=== PATIENT | male | born 1955 | race Caucasian/White ===

== ENCOUNTER → 2020-01-09 | Outpatient (CLI) | payer BC ==
[2020-01-09 11:13] LABS: INR 1.1 (<1.2); Prothrombin Time 11.5 sec (9.0-12.0)
[2020-01-09 11:26] LABS: ALT 50 U/L (4-49); AST 129 U/L (17-59); African American GFR (CKD) >90 (>60 ml/min/1.73 sqM); Albumin 3.2 g/dL (3.5-5.0); Alkaline Phosphatase 269 U/L (38-126); Anion Gap 5 mmol/L; Blood Urea Nitrogen <2 mg/dL (9-20); Calcium 8.6 mg/dL (8.4-10.2); Carbon Dioxide 32 mmol/L (22-30); Chloride 95 mmol/L (98-107); Glucose 126 mg/dL (74-99); Non-African American GFR(CKD) >90 (>60 ml/min/1.73 sqM); Potassium 2.9 mmol/L (3.5-5.1); Sodium 132 mmol/L (137-145); Total Bilirubin 2.6 mg/dL (0.2-1.3); Total Protein 6.8 g/dL (6.3-8.2)
[2020-01-09 11:29] LABS: Basophils # (A) 0.1 k/uL (0-0.2); Basophils % (A) 1 %; Eosinophils # (A) 0.1 k/uL (0-0.7); Eosinophils % (A) 1 %; HCT 48.3 % (39.0-53.0); Lymphocytes # (A) 2.1 k/uL (1.0-4.8); Lymphocytes % (A) 24 %; MCH 36.8 pg (25.0-35.0); MCHC 33.2 g/dL (31.0-37.0); MCV 110.9 fL (80.0-100.0); Macrocytosis Marked; Mean Platelet Volume 7.9; Monocytes # (A) 1.3 k/uL (0-1.0); Monocytes % (A) 15 %; Neutrophils # (A) 5.1 k/uL (1.3-7.7); Neutrophils % (A) 58 %; Platelet Count 270 k/uL (150-450); RBC 4.35 m/uL (4.30-5.90); RDW 12.7 % (11.5-15.5); WBC 8.7 k/uL (3.8-10.6)
--- NOTE | 2020-01-09 14:13 | CT ---
EXAMINATION TYPE: CT abdomen pelvis w con DATE OF EXAM: 01/09/2020 COMPARISON: None HISTORY: Sigmoid stricture CT DLP: 384 mGycm Automated exposure control for dose reduction was used. TECHNIQUE: Helical acquisition of images from the lung bases through the pelvis have been completed. CONTRAST: Performed with Oral Contrast and with IV Contrast, patient injected with 100 mL of Isovue 300. FINDINGS: Question some distal esophageal thickening, possible small hiatal hernia. LUNG BASES: Some probable atelectasis or scarring is present. AORTA: No significant abnormality is appreciated. LIVER/GB: Liver shows low attenuation likely due to hepatic steatosis. Gallbladder is unremarkable. PANCREAS: No significant abnormality is seen. SPLEEN: No significant abnormality is seen. ADRENALS: No significant abnormality is seen. KIDNEYS: No significant abnormality is seen. REPRODUCTIVE ORGANS: No significant abnormality is seen BOWEL: Abnormal thickening of the sigmoid colon wall is present, there is a large diverticulum prese nt with some suggestion of inflammatory change, coronal image #44, axial image #59. Question some col onic wall thickening also at the level of the splenic flexure, ascending colon. Terminal ileum and ce cum show some thickening. Some distended loops of small bowel are present, questionable bowel wall th ickening FREE AIR: No Free Air visible. ASCITES: There is some free fluid noted about the liver. PELVIC ADENOPATHY: None visualized. RETROPERITONEAL ADENOPATHY: No Retroperitoneal Adenopathy visible. URINARY BLADDER: No significant abnormality is seen. OSSEOUS STRUCTURES: Patient is post left hip arthroplasty IMPRESSION: CORRELATE FOR POSSIBLE COLITIS AND DIVERTICULITIS, FOLLOW-UP IS RECOMMENDED TO EXCLUDE UNDERLYING MAS S, AND MUCOSAL LESION. CORRELATE FOR POSSIBLE HIATAL HERNIA, ESOPHAGITIS. SMALL AMOUNT OF ASCITES, PO SSIBLE ENTERITIS, HEPATIC STEATOSIS.
== END | disposition home or self-care (01) ==
LOC: RADCTMAIN 10:26
PROVIDERS: ATTEND Student in an Organized Health Care Education/Training Program
DX: R18.8 Other ascites (principal); R11.2 Nausea with vomiting, unspecified; R19.7 Diarrhea, unspecified
CPT/HCPCS: 80053; 85025; 85610; 74177; 36415; Q9967 ×2

== ENCOUNTER → 2020-01-31 | Outpatient (CLI) | payer BC ==
[2020-01-31 14:56] LABS: HCT 42.9 % (39.0-53.0); HGB 14.2 gm/dL (13.0-17.5); MCH 37.1 pg (25.0-35.0); MCHC 33.2 g/dL (31.0-37.0); Macrocytosis Marked; Mean Platelet Volume 7.8; Platelet Count 273 k/uL (150-450); RBC 3.84 m/uL (4.30-5.90); RDW 12.8 % (11.5-15.5); WBC 10.2 k/uL (3.8-10.6)
[2020-01-31 15:03] LABS: Potassium 3.6 mmol/L (3.5-5.1)
[2020-01-31 15:05] LABS: MCV 111.7 fL (80.0-100.0)
== END | disposition home or self-care (01) ==
LOC: LABPAT 12:25
PROVIDERS: ATTEND Surgery
DX: Z01.818 Encounter for other preprocedural examination (principal); K57.33 Diverticulitis of large intestine without perforation or abscess with bleeding
CPT/HCPCS: 36415; 80051; 85027; 93005

== ENCOUNTER 2020-02-07 08:00 | Inpatient (IN) | payer BC ==
[~2020-02-07 08:00] MED LIST: ACETAMINOPHEN TAB 500 MG TAB PO ONE; DEXAMETHASONE SOD PHOSPHATE 4 MG/ML 1 ML VIAL IV ONE; HEPARIN SODIUM,PORCINE 5,000 UNIT/ML 1 ML VIAL SQ ONE; HYDROmorphone 0.5 MG/0.5 ML SYRINGE IVP PRN; LIDOCAINE 1% (10MG/ML) FOR IV START INTRADERMA PRN; ONDANSETRON 4 MG/2 ML VIAL IVP ONE; SCOPOLAMINE 1.5MG/72HR PATCH TRANSDERM ONE; metroNIDAZOLE-NS PMX 500 MG in SALINE 1 100ML.BAG IVPB ONE
[2020-02-07] MEDS ORDERED: MIDAZOLAM 2 MG/2 ML VIAL IV ONE (08:48)
[2020-02-07] MEDS ORDERED: fentaNYL (PF) 50 MCG/ML 2 ML AMP IV ONE (08:59)
[2020-02-07] MEDS: LACTATED RINGERS 1,000 ML IV SCH (09:18)
[2020-02-07] MEDS ORDERED: ALVIMOPAN 12 MG CAPSULE PO ONE (09:31)
--- NOTE | 2020-02-07 09:33 | P.GSHP ---
History of Present Illness H&P Date: 02/07/20 Chief Complaint: Diverticulitis This is a 64-year-old male who's had chronic issues of diverticulitis. Patient presents today for low anterior resection. Patient aware the risk of colostomy wound infection bleeding. Past Medical History Past Medical History: No Reported History Additional Past Medical History / Comment(s): varicose veins, vitiligo, Diarrhea, diverticulitis. History of Any Multi-Drug Resistant Organisms: None Reported Past Surgical History: Appendectomy, Orthopedic Surgery Additional Past Surgical History / Comment(s): knee surgery(fx), 03-23-16 total lt hip (fx) Past Anesthesia/Blood Transfusion Reactions: No Reported Reaction Additional Past Anesthesia/Blood Transfusion Reaction / Comment(s): unknown family hx-adopted Past Psychological History: No Psychological Hx Reported Smoking Status: Current every day smoker Past Alcohol Use History: Daily Additional Past Alcohol Use History / Comment(s): STARTED SMOKING AT AGE 22, SMOKES 1/2 PPD. DRINKS 2-3 BEERS/DAY Past Drug Use History: None Reported - Past Family History Mother Family Medical History: Unable to Obtain Additional Family Medical History / Comment(s): PT WAS ADOPTED Father Family Medical History: Unable to Obtain Additional Family Medical History / Comment(s): PT WAS ADOPTED Medications and Allergies Home Medications Medication Instructions Recorded Confirmed Type Baclofen [Lioresal] 20 mg PO BID 02/04/20 02/07/20 History Ciprofloxacin HCl [Cipro] 500 mg PO BID 02/04/20 02/07/20 History Metoprolol Succinate [Toprol XL] 25 mg PO DAILY 02/04/20 02/07/20 History metroNIDAZOLE [Flagyl] 500 mg PO TID 02/04/20 02/07/20 History Allergies Allergy/AdvReac Type Severity Reaction Status Date / Time No Known Allergies Allergy Verified 02/07/20 08:20 Surgical - Exam Vital Signs Temp Pulse Resp BP Pulse Ox 98.3 F 109 H 16 131/71 96 02/07/20 08:19 02/07/20 08:19 02/07/20 08:19 02/07/20 08:19 02/07/20 08:19 - General well developed, well nourished, no distress - Eyes PERRL - ENT normal pinna - Neck no masses - Respiratory normal expansion - Cardiovascular Rhythm: regular - Abdomen Abdomen: soft, non tender Assessment and Plan Assessment: History of diverticulitis. We'll perform low anterior resection
[2020-02-07] MEDS ORDERED: NALOXONE 0.4 MG/ML 1 ML VIAL IV PRN (09:50)
--- NOTE | 2020-02-07 09:59 | P.ANPRN ---
Procedure Note - Anesthesia - Epidural/Spinal Epidural Continuous Time Out Performed: Yes Date of Procedure: 02/07/20 Procedure Start Time: 08:48 Procedure Stop Time: 09:08 Location of Patient: PreOp Indication: Acute Post-Operative Pain, Analgesia, Requested by Surgeon Sedation Type: Sedate with meaningful contact maintained Preparation: Sterile Dressing Position: Supine Catheter Depth at Skin (cm): 10 Catheter: Indwelling Needle Guage: 20 Injectate: Test Dose Lidocaine1.5% w/1:200,000 epi Blood Aspirated: No Pain Paresthesia on Injection Noted: No Events: Other (see comment) (Attempts x2 , first attempt was intravascular no test dose was given, catheter was placed one level above)
[2020-02-07] MEDS ORDERED: LIDOCAINE 1% INJ 10MG/ML (20 ML MDV) ONE (10:05)
[2020-02-07] MEDS ORDERED: fentaNYL (PF) 50 MCG/ML 2 ML AMP ONE (10:05)
[2020-02-07] MEDS ORDERED: NEOSTIGMINE 1 MG/ML 10 ML VIAL ONE (10:05)
[2020-02-07] MEDS ORDERED: PROPOFOL 10 MG/ML 20 ML VIAL IV ONE (10:05)
[2020-02-07] MEDS ORDERED: PHENYLEPHRINE 10 MG/ML VIAL ONE (10:05)
[2020-02-07] MEDS ORDERED: ROCURONIUM 10 MG/ML (10 ML VIAL) IV ONE (10:05)
[2020-02-07] MEDS ORDERED: GLYCOPYRROLATE 0.2 MG/ML 2 ML VIAL ONE (10:05)
[2020-02-07] MEDS ORDERED: SUCCINYLCHOLINE CHLORIDE 100 MG/5 ML SYR IV ONE (10:05)
[2020-02-07] MEDS ORDERED: ONDANSETRON 4 MG/2 ML VIAL IVP PRN (11:56)
[2020-02-07] MEDS ORDERED: BENZOCAINE/MENTHOL LOZENG 1 EACH LOZENGE MUCOUS MEM PRN (11:56)
[2020-02-07] MEDS ORDERED: METOCLOPRAMIDE 5 MG/ML 2 ML VIAL IVP PRN (11:56)
[2020-02-07] MEDS ORDERED: LACTATED RINGERS 1,000 ML IV ONE ×6 (11:57→15:00)
--- NOTE | 2020-02-07 12:31 | P.OP ---
Date of Procedure: 02/07/20 Preoperative Diagnosis: Diverticulitis with stricture Postoperative Diagnosis: Diverticulitis Procedure(s) Performed: Low anterior section Takedown of splenic flexure Partial omentectomy Anesthesia: MORGAN Surgeon: Hiram Lee Pathology: other (Sigmoid and left colon, omentum) Condition: stable Disposition: PACU Description of Procedure: The patient's placed on the operative table in the supine position. He was placed in dorsolithotomy. He received general anesthesia. His abdomen was prepped and draped in usual sterile fashion. The abdomen was entered through a midline incision. The Bookwalter retractors placed a wound. The patient had a tattoo from a colonoscopy at the level of the stricture. The colon was quite thickened and attached to the lateral pelvic wall. This point the white line of Toldt was divided the left colon was mobilized. The sigmoid colon was mobilized. At this point the splenic flexure was taken down using the Enseal device. A suitable spot on the transverse colon was found. Enterotomy is made in the anvil for the 25 mm EEA stapler was placed into the transverse colon. And then the colon was transected with a CHARLIE stapler. The enterotomy was closed with 3-0 GI silk suture. Using the Enseal device the mesentery of the transverse colon left colon sigmoid colon was divided the rectum was then transected with the contour stapler. The omental exam. The omentum appeared ischemic. The omentum was transected with the incidental lysis of pathology. Next the molding line assistant placed the EEA stapler patient's anus and then the stapler was positioned in the rectum. A spike was returned to the anterior rectal wall. The anvil was connected stapler. The stapling closed and fired and then withdrawn. 2 intact tissue rings were removed from the anvil. A hydropic up was then used to occlude the bowel and then using a rigid sigmoidoscope the bowel was insufflated with air and there is no evidence of any extravasation. The abdomen was irrigated. There is no bleeding seen. The fascia was then closed with looped #1 PDS suture. Skin was closed yvonne. Patient top she will was sent to recovery in stable condition.
[2020-02-07] MEDS: D5-0.45% NACL WITH KCL 20MEQ/L 1,000 ML IV SCH (20:20)
[2020-02-07] MEDS: NICOTINE 21MG/24HR PATCH TRANSDERM SCH (20:48)
[2020-02-07] MEDS: FAMOTIDINE 20 MG/2 ML VIAL IV SCH (20:48)
[2020-02-07] MEDS: BACLOFEN 10 MG TAB PO SCH (20:48)
[2020-02-07] MEDS ORDERED: NICOTINE POLACRILEX 2 MG GUM BUCCAL PRN (23:12)
--- NOTE | 2020-02-07 23:12 | P.CONS ---
History of Present Illness - Reason for Consult Consult date: 02/07/20 Medical management Requesting physician: Hiram Lee - Chief Complaint Abdominal surgery - History of Present Illness History of presenting complaint: This is a pleasant 64-year-old patient of . Patient been having complication to his diverticulitis. Today was computed tomography scan on January 08. Short some possible stricture. Hepatic steatosis. Patient today has undergone low anterior resection. Postprocedure laying in bed. Pain is controlled. No nausea vomiting. No fever no chills. Denies any cardiac history. Review of systems: GEN.: Tired EYES: None HEENT: None NECK: None RESPIRATORY: None CARDIOVASCULAR: None GASTROINTESTINAL: As above GENITOURINARY: None MUSCULOSKELETAL: None LYMPHATICS: None HEMATOLOGICAL: None PSYCHIATRY: None NEUROLOGICAL: None Past medical history to include: Varicose veins, vitiligo, diverticulitis Social history: Smokes one half a pack a day for close to 40 years. To 3 beers a day. . Family history: Patient adopted Physical examination: VITAL SIGNS: 97.7, 101, 18, 107/72, 95% room air GENERAL: BMI 19.4, laying in bed, awake. EYES: Pupils equal. Conjunctiva normal. HEENT: External appearance of nose and ears normal, oral cavity grossly normal. NECK: JVD not raised; masses not palpable. HEART: First and second heart sounds are normal; no edema. LUNGS: Respiratory rate normal; decreased breath sounds. ABDOMEN: Soft, mild tenderness, or to: Dressing over the incision, liver spleen not palpable, no masses palpable. PSYCH: Alert and oriented x3; mood and affect normal. NEUROLOGICAL: Cranial nerves grossly intact; no facial asymmetry, power and sensation grossly intact. LYMPHATICS: No lymph nodes palpable in the axilla and neck INVESTIGATIONS, reviewed in the clinical context: White count 10.2 hemoglobin 14.2 potassium 3.6 Previously AST 129 ALT 50 Computed tomography scan of the abdomen from January 08-possible colitis, diverticulitis, some esophagitis, hepatic steatosis Assessment: -Status post low anterior resection -Chronic nicotine dependence patient cigarette smoker -Clinical emphysema, asymptomatic -Suspect alcoholic hepatitis - Plan: Patient put on a nicotine patch. IV fluids. Has a spinal or pain control. And Dilaudid. Patient on clear liquid diet per Dr. Lee. Compression stockings. Care was discussed with the patient questions answered. Thank you Dr. Lee Past Medical History Past Medical History: No Reported History Additional Past Medical History / Comment(s): varicose veins, vitiligo, Diarrhea, diverticulitis. History of Any Multi-Drug Resistant Organisms: None Reported Past Surgical History: Appendectomy, Orthopedic Surgery Additional Past Surgical History / Comment(s): knee surgery(fx), 03-23-16 total lt hip (fx) Past Anesthesia/Blood Transfusion Reactions: No Reported Reaction Additional Past Anesthesia/Blood Transfusion Reaction / Comm: unknown family hx- adopted Past Psychological History: No Psychological Hx Reported Smoking Status: Current every day smoker Past Alcohol Use History: Daily Additional Past Alcohol Use History / Comment(s): STARTED SMOKING AT AGE 22, SMOKES 1/2 PPD. DRINKS 2-3 BEERS/DAY Past Drug Use History: None Reported - Past Family History Mother Family Medical History: Unable to Obtain Additional Family Medical History / Comment(s): PT WAS ADOPTED Father Family Medical History: Unable to Obtain Additional Family Medical History / Comment(s): PT WAS ADOPTED Medications and Allergies Home Medications Medication Instructions Recorded Confirmed Type Baclofen [Lioresal] 20 mg PO BID 02/04/20 02/07/20 History Ciprofloxacin HCl [Cipro] 500 mg PO BID 02/04/20 02/07/20 History Metoprolol Succinate [Toprol XL] 25 mg PO DAILY 02/04/20 02/07/20 History metroNIDAZOLE [Flagyl] 500 mg PO TID 02/04/20 02/07/20 History Allergies Allergy/AdvReac Type Severity Reaction Status Date / Time No Known Allergies Allergy Verified 02/07/20 08:20 Physical Exam Vitals: Vital Signs Temp Pulse Pulse Resp BP Pulse Ox 02/07/20 19:31 97.7 F 101 H 18 107/72 95 02/07/20 17:00 94 16 115/71 99 02/07/20 16:30 90 16 126/70 99 02/07/20 16:00 92 16 112/70 99 02/07/20 15:30 88 18 110/71 99 02/07/20 15:00 98 16 121/70 99 02/07/20 14:30 94 16 114/65 99 02/07/20 14:00 95 16 114/58 98 02/07/20 13:30 98 16 111/67 98 02/07/20 13:00 95 18 96/51 96 02/07/20 12:47 95 16 93/44 96 02/07/20 12:35 97 16 89/56 95 02/07/20 12:20 96 16 102/57 94 L 02/07/20 12:05 98 F 91 12 91/59 95 02/07/20 09:05 95 16 112/71 100 02/07/20 08:58 97 16 113/67 99 02/07/20 08:48 96 16 130/75 99 02/07/20 08:19 98.3 F 109 H 16 131/71 96 Intake and Output 02/07/20 02/07/20 02/08/20 14:59 22:59 06:59 Intake Total 3100 1600 Output Total 230 700 Balance 2870 900 Intake: IV 3100 1600 Output: Urine 30 700 Estimated Blood Loss 200 Other: Voiding Method Indwelling Catheter Weight 58 kg 58 kg
[2020-02-08] MEDS: D5-0.45% NACL WITH KCL 20MEQ/L 1,000 ML IV SCH ×3 (03:20→20:44)
[2020-02-08] MEDS: LACTATED RINGERS 1,000 ML IV SCH (06:30)
--- NOTE | 2020-02-08 06:59 | P.PN ---
Progress Note - Text Date: 02/08/2020 Time: 06:54 The patient is status post, low anterior resection, postoperative day number 1 The patient has no complaints of nausea vomiting or headache. The patient does not complain of any lower extremity numbness or weakness. The epidural is running at 9 mL per hour. VAS 4- 5-10. The epidural will be maintained and adjusted as needed.
[2020-02-08 07:45] LABS: African American GFR (CKD) >90 (>60 ml/min/1.73 sqM); Anion Gap 8 mmol/L; Blood Urea Nitrogen 4 mg/dL (9-20); Calcium 7.7 mg/dL (8.4-10.2); Carbon Dioxide 20 mmol/L (22-30); Chloride 104 mmol/L (98-107); Glucose 139 mg/dL (74-99); Non-African American GFR(CKD) >90 (>60 ml/min/1.73 sqM); Potassium 4.2 mmol/L (3.5-5.1); Sodium 132 mmol/L (137-145)
[2020-02-08 08:04] LABS: Basophils # (A) 0.1 k/uL (0-0.2); Basophils % (A) 0 %; Eosinophils % (A) 0 %; HCT 36.7 % (39.0-53.0); HGB 11.6 gm/dL (13.0-17.5); Lymphocytes # (A) 2.2 k/uL (1.0-4.8); Lymphocytes % (A) 13 %; MCH 35.8 pg (25.0-35.0); MCHC 31.7 g/dL (31.0-37.0); MCV 112.8 fL (80.0-100.0); Macrocytosis Marked; Mean Platelet Volume 8.7; Monocytes # (A) 1.4 k/uL (0-1.0); Monocytes % (A) 8 %; Neutrophils # (A) 13.6 k/uL (1.3-7.7); Neutrophils % (A) 78 %; Platelet Count 265 k/uL (150-450); RBC 3.25 m/uL (4.30-5.90); RDW 13.6 % (11.5-15.5); WBC 17.5 k/uL (3.8-10.6)
[2020-02-08] MEDS: BACLOFEN 10 MG TAB PO SCH ×2 (09:56→20:43)
[2020-02-08] MEDS: FAMOTIDINE 20 MG/2 ML VIAL IV SCH ×2 (09:56→20:45)
[2020-02-08] MEDS: METOPROLOL SUCCINATE (ER) 25 MG TAB.ER.24H PO SCH (09:57)
[2020-02-08] MEDS: NICOTINE 21MG/24HR PATCH TRANSDERM SCH (09:57)
[2020-02-08] MEDS: ALVIMOPAN 12 MG CAPSULE PO SCH ×2 (09:57→20:43)
[2020-02-08] MEDS ORDERED: THIAMINE 100 MG/ML 2 ML VIAL IM STA (10:42)
[2020-02-08] MEDS ORDERED: LORazepam 2 MG/ML INJ IV PRN (10:42)
[2020-02-08] MEDS: ROPIVACAINE 250 MG, HYDROMORPHONE (PF) 5 MG in SODIUM CHLORIDE 0.9% 200 ML EPIDURAL PRN (13:08)
--- NOTE | 2020-02-08 13:30 | P.PN ---
Subjective Progress Note Date: 02/08/20 CHIEF COMPLAINT: Diverticulitis HISTORY OF PRESENT ILLNESS: Patient is postop day #1 status post lower anterior resection, takedown of splenic flexure and partial omentectomy. Patient has epidural in place. He did report an episode of vomiting this morning. He reports passing gas. No bowel movement. Per nursing patient was found to have a fifth of heparin underwent schnapps at the bedside. This was removed from patient and taken to security. Patient reports drinking alcohol daily admits to only drinking about 2-3 beers a day. He is tachycardic heart rate 111. Afebrile. WBC 17.5 Hgb 11.6 sodium 132 creatinine 0.62 PHYSICAL EXAM: VITAL SIGNS: Reviewed. GENERAL: Well-developed in no acute distress. HEENT: No sclera icterus. Extraocular movements grossly intact. Moist buccal mucosa. Head is atraumatic, normocephalic. ABDOMEN: Soft. Nondistended. Dressing clean dry and intact NEUROLOGIC: Alert and oriented. Cranial nerves II through XII grossly intact. ASSESSMENT: 1. Diverticulitis status post lower anterior resection, takedown of splenic flexure and partial omentectomy 2. Alcohol abuse PLAN: -Continue IV fluids -Continue clear liquid diet -Continue CIWA protocol with thiamine and multivitamin for alcohol abuse -Continue epidural for pain -GI prophylaxis Pepcid and subcu heparin for DVT prophylaxis Physician Sandblaster Supervisor note has been reviewed by physician. Signing provider agrees with the documented findings, assessment, and plan of care. Objective - Vital Signs Vital signs: Vital Signs Temp 97.9 F 02/08/20 07:08 Pulse 111 H 02/08/20 07:08 Resp 14 02/08/20 07:08 BP 117/75 02/08/20 07:08 Pulse Ox 94 L 02/08/20 07:08 Intake & Output 02/07/20 02/08/20 02/08/20 18:59 06:59 18:59 Intake Total 4700 Output Total 380 1000 Balance 4320 -1000 Weight 58 kg 58 kg Intake: IV 4700 Output: Urine 180 1000 Estimated Blood Loss 200 Other: Voiding Method Indwelling Catheter Indwelling Catheter - Labs CBC & Chem 7: 02/08/20 06:36 02/08/20 06:36 Labs: Abnormal Lab Results - Last 24 Hours (Table) 02/08/20 02/08/20 Range/Units 06:36 06:36 WBC 17.5 H (3.8-10.6) k/uL RBC 3.25 L (4.30-5.90) m/uL Hgb 11.6 L (13.0-17.5) gm/dL Hct 36.7 L (39.0-53.0) % MCV 112.8 H (80.0-100.0) fL MCH 35.8 H (25.0-35.0) pg Neutrophils # 13.6 H (1.3-7.7) k/uL Monocytes # 1.4 H (0-1.0) k/uL Macrocytosis Marked A Sodium 132 L (137-145) mmol/L Carbon Dioxide 20 L (22-30) mmol/L BUN 4 L (9-20) mg/dL Creatinine 0.62 L (0.66-1.25) mg/dL Glucose 139 H (74-99) mg/dL Calcium 7.7 L (8.4-10.2) mg/dL
--- NOTE | 2020-02-08 15:10 | XR ---
Left ankle HISTORY: Chronic pain 3 views the left ankle No priors comparison There is soft tissue swelling. Bone mineralization, joint spaces and alignment are within normal limi ts. There is no fracture or dislocation. IMPRESSION: Soft tissue swelling.
[2020-02-08] MEDS: PIPERACILLIN-TAZOBACTAM 3.375 GM in SODIUM CHLORIDE 0.9% 100 ML IVPB SCH ×2 (16:09→23:15)
[2020-02-08] MEDS: THIAMINE 100 MG TAB PO SCH (18:06)
--- NOTE | 2020-02-08 20:32 | P.PN ---
Progress Note - Text Progress Note Date: 02/08/20 - Chief Complaint Abdominal surgery History of presenting complaint: This is a pleasant 64-year-old patient of . Patient been having complication to his diverticulitis. computed tomography scan on January 08. Showed some possible stricture. Hepatic steatosis. February 06- undergone low anterior resection. Epidural for pain control. Today-sitting up in bed. Pain control. No nausea vomiting. On clear liquids. Past small a lot of flatus. Review of systems: Was done for constitutional, cardiovascular, GI, pulmonary. relevant finding as above Active Medications Alvimopan (Alvimopan 12 Mg Capsule) 12 mg PO BID [facility] Stop: 02/14/20 21:01 Last Admin: 02/08/20 09:57 Dose: 12 mg Documented by: Baclofen (Baclofen 10 Mg Tab) 20 mg PO BID [facility] Last Admin: 02/08/20 09:56 Dose: 20 mg Documented by: Benzocaine/Menthol (Benzocaine/Menthol Lozeng 1 Each Lozenge) 1 each MUCOUS MEM Q1HR PRN PRN Reason: Sore Throat Famotidine (Famotidine 20 Mg/2 Ml Vial) 20 mg IV BID [facility] Last Admin: 02/08/20 09:56 Dose: 20 mg Documented by: Heparin Sodium (Porcine) (Heparin Sodium,Porcine 5,000 Unit/Ml 1 Ml Vial) 5,000 unit SQ Q12HR [facility] Lactated Ringer's (Lactated Ringers) 1,000 mls @ 20 mls/hr IV .Q24H [facility] Last Admin: 02/08/20 06:30 Dose: Not Given Documented by: Ropivacaine 250 mg/Hydromorphone HCl 5 mg/ Sodium Chloride 250 mls @ 0 mls/hr EPIDURAL .Q0M PRN; Protocol PRN Reason: Pain Control Last Admin: 02/08/20 13:08 Dose: 9 mls/hr Documented by: Potassium Chloride/Dextrose/Sod Cl (D5%-1/2ns-Kcl 20 Meq/L Iv Solution) 1,000 mls @ 125 mls/hr IV .Q8H [facility] Last Admin: 02/08/20 12:12 Dose: 125 mls/hr Documented by: Piperacillin Sod/Tazobactam (Sod 3.375 gm/ Sodium Chloride) 100 mls @ 25 mls/hr IVPB Q8HR [facility] Last Admin: 02/08/20 16:09 Dose: 25 mls/hr Documented by: Lidocaine HCl (Lidocaine 1% (10mg/Ml) For Iv Start) 0.1 ml INTRADERMA PER PROTOCOL PRN PRN Reason: IV Start Last Admin: 02/07/20 08:28 Dose: 0.1 ml Documented by: Lorazepam (Lorazepam 2 Mg/Ml Inj) 1 mg IV Q2HR PRN PRN Reason: CIWA 8 or 9 Lorazepam (Lorazepam 2 Mg/Ml Inj) 1 mg IV Q1HR PRN PRN Reason: CIWA 10 to 15 Lorazepam (Lorazepam 2 Mg/Ml Inj) 2 mg IV Q10M PRN PRN Reason: CIWA 16 or higher Stop: 02/10/20 10:42 Metoclopramide HCl (Metoclopramide 5 Mg/Ml 2 Ml Vial) 10 mg IVP Q6HR PRN PRN Reason: Nausea and Vomiting Metoprolol Succinate (Metoprolol Succinate (Er) 25 Mg Tab.Er.24h) 25 mg PO DAILY [facility] Last Admin: 02/08/20 09:57 Dose: 25 mg Documented by: Multivitamins (Multivitamins, Thera 1 Each Tab) 1 each PO DAILY [facility] Naloxone HCl (Naloxone 0.4 Mg/Ml 1 Ml Vial) 0.2 mg IV Q2M PRN PRN Reason: Opioid Reversal Nicotine (Nicotine 21mg/24hr Patch) 1 patch TRANSDERM DAILY [facility] Last Admin: 02/08/20 09:57 Dose: 1 patch Documented by: Nicotine Polacrilex (Nicotine Polacrilex 2 Mg Gum) 2 mg BUCCAL Q4HR PRN PRN Reason: Nicotine Cravings Ondansetron HCl (Ondansetron 4 Mg/2 Ml Vial) 4 mg IVP Q8HR PRN PRN Reason: Nausea And Vomiting Thiamine HCl (Thiamine 100 Mg Tab) 100 mg PO BID-W/MEALS [facility] Last Admin: 02/08/20 18:06 Dose: 100 mg Documented by: Physical examination: VITAL SIGNS: 98.4, 98, 18, 124/82, 94% on 2 L GENERAL: Sitting up in bed, awake, comfortable, epidural in place EYES: Pupils equal. Conjunctiva normal. HEENT: External appearance of nose and ears normal, oral cavity grossly normal. NECK: JVD not raised; masses not palpable. HEART: First and second heart sounds are normal; no edema. LUNGS: Respiratory rate normal; decreased breath sounds. ABDOMEN: Soft, mild tenderness, or to: Dressing over the incision, liver spleen not palpable, no masses palpable. No bowel sounds PSYCH: Alert and oriented x3; mood and affect normal. INVESTIGATIONS, reviewed in the clinical context: White count 17.5 hemoglobin 11.6 platelets 265 potassium 4.2 creatinine 0.62 sod ium 132 Previous testing White count 10.2 hemoglobin 14.2 potassium 3.6 Previously AST 129 ALT 50 Computed tomography scan of the abdomen from January 08-possible colitis, diverticulitis, some esophagitis, hepatic steatosis Assessment: -Status post low anterior resection, for diverticulitis complication -Chronic nicotine dependence patient cigarette smoker -Clinical emphysema, asymptomatic -Suspect alcoholic hepatitis -Mild hyponatremia -Macrocytic anemia. Rule out B12 deficiency Plan: Patient on clear liquids. On epidural pain pump. Check B12 level. Care discussed with the patient. Thank you Dr. Lee
[2020-02-08] MEDS: HEPARIN SODIUM,PORCINE 5,000 UNIT/ML 1 ML VIAL SQ SCH (20:44)
[2020-02-09] MEDS: D5-0.45% NACL WITH KCL 20MEQ/L 1,000 ML IV SCH ×3 (03:15→20:50)
[2020-02-09] MEDS: LACTATED RINGERS 1,000 ML IV SCH (03:15)
[2020-02-09] MEDS: FAMOTIDINE 20 MG/2 ML VIAL IV SCH ×2 (08:42→20:52)
[2020-02-09] MEDS: HEPARIN SODIUM,PORCINE 5,000 UNIT/ML 1 ML VIAL SQ SCH (08:42)
[2020-02-09] MEDS: BACLOFEN 10 MG TAB PO SCH ×2 (08:43→20:51)
[2020-02-09] MEDS: THIAMINE 100 MG TAB PO SCH ×2 (08:43→15:43)
[2020-02-09] MEDS: MULTIVITAMINS, THERA 1 EACH TAB PO SCH (08:43)
[2020-02-09] MEDS: PIPERACILLIN-TAZOBACTAM 3.375 GM in SODIUM CHLORIDE 0.9% 100 ML IVPB SCH ×3 (08:43→23:41)
[2020-02-09] MEDS: NICOTINE 21MG/24HR PATCH TRANSDERM SCH (08:43)
[2020-02-09] MEDS: ALVIMOPAN 12 MG CAPSULE PO SCH ×2 (08:43→20:51)
[2020-02-09] MEDS: METOPROLOL SUCCINATE (ER) 25 MG TAB.ER.24H PO SCH (08:43)
--- NOTE | 2020-02-09 10:32 | P.CNOR ---
History of Present Illness - HPI Consult date: 02/09/20 History of present illness: This is a 64-year-old male who is admitted for chronic diverticulitis. Patient is status post bowel resection on 02/07/2020. Orthopedics is consulted to the left ankle pain. Patient is unable to give a clear history today and seems confused. Patient does admit that his left ankle has been hurting for an un known amount of time. Patient denies any known injury. Patient is unsure if the ankle hurts when he is walking. Patient admits to daily alcohol use and is on CIWA protocol. Patient currently has an epidural for pain management. Patient's past medical history is significant for vitiligo, diarrhea, varicose veins and diverticulitis. Review of Systems See HPI. Past Medical History Past Medical History: No Reported History Additional Past Medical History / Comment(s): varicose veins, vitiligo, Diarrh ea, diverticulitis. History of Any Multi-Drug Resistant Organisms: None Reported Past Surgical History: Appendectomy, Orthopedic Surgery Additional Past Surgical History / Comment(s): knee surgery(fx), 03-23-16 total lt hip (fx) Past Anesthesia/Blood Transfusion Reactions: No Reported Reaction Additional Past Anesthesia/Blood Transfusion Reaction / Comm: unknown family hx- adopted Past Psychological History: No Psychological Hx Reported Smoking Status: Current every day smoker Past Alcohol Use History: Daily Additional Past Alcohol Use History / Comment(s): STARTED SMOKING AT AGE 22, SMOKES 1/2 PPD. DRINKS 2-3 BEERS/DAY Past Drug Use History: None Reported - Past Family History Mother Family Medical History: Unable to Obtain Additional Family Medical History / Comment(s): PT WAS ADOPTED Father Family Medical History: Unable to Obtain Additional Family Medical History / Comment(s): PT WAS ADOPTED Medications and Allergies Home Medications Medication Instructions Recorded Confirmed Type Baclofen [Lioresal] 20 mg PO BID 02/04/20 02/07/20 History Ciprofloxacin HCl [Cipro] 500 mg PO BID 02/04/20 02/07/20 History Metoprolol Succinate [Toprol XL] 25 mg PO DAILY 02/04/20 02/07/20 History metroNIDAZOLE [Flagyl] 500 mg PO TID 02/04/20 02/07/20 History Allergies Allergy/AdvReac Type Severity Reaction Status Date / Time No Known Allergies Allergy Verified 02/07/20 08:20 Physical Examination On exam patient is lying comfortably in bed in no acute distress. There is no tenderness to palpation over the left ankle or foot. However, pain assessment may be skewed due to the patient having an epidural. Patient has full range of motion of the left foot and ankle without pain or difficulty. There is mild swelling of bilateral lower extremities. There is no erythema or ecchymosis. Skin is intact. Calf is soft and nontender to palpation. Neurovascular status and circulatory status are intact. Results X-rays of the left ankle are negative for any fracture or dislocation. Ankle mortise is intact. - Labs Labs: Abnormal Lab Results - Last 24 Hours (Table) 02/09/20 Range/Units 05:50 Vitamin B12 1038.0 H (200.0-944.0) pg/mL H & H 02/08/20 Range/Units 06:36 Hgb 11.6 L (13.0-17.5) gm/dL Hct 36.7 L (39.0-53.0) % Result Diagrams: 02/08/20 06:36 02/08/20 06:36 Assessment and Plan Assessment: Diverticulitis Status post bowel resection. (1) Left ankle pain Current Visit: Yes Status: Acute Code(s): M25.572 - PAIN IN LEFT ANKLE AND JOINTS OF LEFT FOOT SNOMED Code(s): 656090706 Plan: 1. X-rays are reviewed and are negative for any acute process. 2. Discussed the option for use of a walking boot when the patient ambulates. Patient states that he would like to see how the ankle feels in the coming days. 3. I will order a Premium Equalizer boot for the patient to wear as needed when ambulating. Pain is difficult to assess today as patient is confused and has an epidural for pain management. Patient may weightbear as tolerated. Recommend follow-up with Orthopedics on an outpatient basis.
--- NOTE | 2020-02-09 11:48 | P.PN ---
Progress Note - Text Progress Note Date: 02/09/20 The patient appears slightly drowsy today. On exam vital signs are stable. Abdomen is soft. Incision sites clean and intact. Status post low anterior resection for sigmoid diverticulitis. Patient will receive supportive care.
--- NOTE | 2020-02-09 16:20 | P.PN ---
Subjective Progress Note Date: 02/09/20 Principal diagnosis: Status post low anterior resection for sigmoid diverticulitis Mr. Carter is a 64-year-old male admitted for complications of diverticulitis. CAT scan of the abdomen January 08 showed possible stricture. Patient underwent low anterior resection on February 06. He is postop day 2. Patient is comfortably sitting up in the bed appears to be in no acute distress. Patient is tolerating clear liquids, he states that he did not have a bowel movement. Patient is slightly confused, he has history of alcohol abuse and is currently on a CIWA scale. On review of systems: Constitutional: No fever chills or rigors Cardiovascular: No chest pain or palpitations Respiratory: No cough or difficulty in breathing GI: Abdominal soreness : No dysuria or hematuria Active Medications Alvimopan (Alvimopan 12 Mg Capsule) 12 mg PO BID [facility] Stop: 02/14/20 21:01 Last Admin: 02/09/20 08:43 Dose: 12 mg Documented by: Baclofen (Baclofen 10 Mg Tab) 20 mg PO BID [facility] Last Admin: 02/09/20 08:43 Dose: 20 mg Documented by: Benzocaine/Menthol (Benzocaine/Menthol Lozeng 1 Each Lozenge) 1 each MUCOUS MEM Q1HR PRN PRN Reason: Sore Throat Famotidine (Famotidine 20 Mg/2 Ml Vial) 20 mg IV BID [facility] Last Admin: 02/09/20 08:42 Dose: 20 mg Documented by: Heparin Sodium (Porcine) (Heparin Sodium,Porcine 5,000 Unit/Ml 1 Ml Vial) 5,000 unit SQ Q12HR [facility] Last Admin: 02/09/20 08:42 Dose: 5,000 unit Documented by: Lactated Ringer's (Lactated Ringers) 1,000 mls @ 20 mls/hr IV .Q24H [facility] Last Admin: 02/09/20 03:15 Dose: Not Given Documented by: Ropivacaine 250 mg/Hydromorphone HCl 5 mg/ Sodium Chloride 250 mls @ 0 mls/hr EPIDURAL .Q0M PRN; Protocol PRN Reason: Pain Control Last Admin: 02/08/20 13:08 Dose: 9 mls/hr Documented by: Potassium Chloride/Dextrose/Sod Cl (D5%-1/2ns-Kcl 20 Meq/L Iv Solution) 1,000 mls @ 125 mls/hr IV .Q8H [facility] Last Admin: 02/09/20 15:43 Dose: 125 mls/hr Documented by: Piperacillin Sod/Tazobactam (Sod 3.375 gm/ Sodium Chloride) 100 mls @ 25 mls/hr IVPB Q8HR [facility] Last Admin: 02/09/20 15:43 Dose: 25 mls/hr Documented by: Lidocaine HCl (Lidocaine 1% (10mg/Ml) For Iv Start) 0.1 ml INTRADERMA PER PROTOCOL PRN PRN Reason: IV Start Last Admin: 02/07/20 08:28 Dose: 0.1 ml Documented by: Lorazepam (Lorazepam 2 Mg/Ml Inj) 1 mg IV Q2HR PRN PRN Reason: CIWA 8 or 9 Lorazepam (Lorazepam 2 Mg/Ml Inj) 1 mg IV Q1HR PRN PRN Reason: CIWA 10 to 15 Lorazepam (Lorazepam 2 Mg/Ml Inj) 2 mg IV Q10M PRN PRN Reason: CIWA 16 or higher Stop: 02/10/20 10:42 Metoclopramide HCl (Metoclopramide 5 Mg/Ml 2 Ml Vial) 10 mg IVP Q6HR PRN PRN Reason: Nausea and Vomiting Metoprolol Succinate (Metoprolol Succinate (Er) 25 Mg Tab.Er.24h) 25 mg PO DAILY [facility] Last Admin: 02/09/20 08:43 Dose: 25 mg Documented by: Multivitamins (Multivitamins, Thera 1 Each Tab) 1 each PO DAILY [facility] Last Admin: 02/09/20 08:43 Dose: 1 each Documented by: Naloxone HCl (Naloxone 0.4 Mg/Ml 1 Ml Vial) 0.2 mg IV Q2M PRN PRN Reason: Opioid Reversal Nicotine (Nicotine 21mg/24hr Patch) 1 patch TRANSDERM DAILY [facility] Last Admin: 02/09/20 08:43 Dose: 1 patch Documented by: Nicotine Polacrilex (Nicotine Polacrilex 2 Mg Gum) 2 mg BUCCAL Q4HR PRN PRN Reason: Nicotine Cravings Ondansetron HCl (Ondansetron 4 Mg/2 Ml Vial) 4 mg IVP Q8HR PRN PRN Reason: Nausea And Vomiting Thiamine HCl (Thiamine 100 Mg Tab) 100 mg PO BID-W/MEALS [facility] Last Admin: 02/09/20 15:43 Dose: 100 mg Documented by: Objective - Vital Signs Vital signs: Vital Signs Temp 97.9 F 02/09/20 15:00 Pulse 100 02/09/20 15:00 Resp 18 02/09/20 15:00 BP 118/67 02/09/20 15:00 Pulse Ox 90 L 02/09/20 15:00 Intake & Output 02/08/20 02/09/20 02/09/20 18:59 06:59 18:59 Intake Total 850 1275 Output Total 325 400 Balance 525 -400 1275 Intake: Intake, IV Titration 850 1100 Amount D5-0.45% NaCl with KCl 850 1000 20Meq/l 1,000 ml @ 125 mls/hr IV .Q8H [facility] Rx#: [id number] Piperacillin-Tazobactam 3 100 .375 gm In Sodium Chloride 0.9% 100 ml @ 25 mls/hr IVPB Q8HR [facility] Rx# :[id number] Oral 175 Output: Urine 325 400 Other: Voiding Method Indwelling Catheter Indwelling Catheter Indwelling Catheter - Exam Physical examination: VITAL SIGNS: 97.9, heart rate 100, respiratory rate 18, blood pressure 1 18 x 67, saturating at 90% on 3 L of nasal cannula. GENERAL: Sitting up in bed, awake, comfortable, epidural in place EYES: Pupils equal. Conjunctiva normal. HEENT: External appearance of nose and ears normal, oral cavity grossly normal. NECK: JVD not raised; masses not palpable. HEART: First and second heart sounds are normal; no edema. LUNGS: Respiratory rate normal; decreased breath sounds. ABDOMEN: Soft, mild tenderness, or to: Dressing over the incision, liver spleen not palpable, no masses palpable. No bowel sounds PSYCH: Alert and oriented x3; mood and affect normal. - Labs CBC & Chem 7: 02/08/20 06:36 02/08/20 06:36 Labs: Abnormal Lab Results - Last 24 Hours (Table) 02/09/20 Range/Units 05:50 Vitamin B12 1038.0 H (200.0-944.0) pg/mL Assessment and Plan Assessment: Assessment: -Status post low anterior resection, for diverticulitis complication -Chronic nicotine dependence patient cigarette smoker -Clinical emphysema, asymptomatic -Suspect alcoholic hepatitis -Mild hyponatremia -Macrocytic anemia. Rule out B12 deficiency Plan: Patient continues to be on clear liquids, he still has epidural pain pump in place. Patient has history of alcohol abuse, currently on a CIWA scale. Continue with the current plan, further recommendations depending on the progress of the patient. Thank you Dr. Lee.
--- NOTE | 2020-02-09 16:31 | US ---
EXAMINATION TYPE: US venous doppler duplex LE LT DATE OF EXAM: 02/09/2020 4:21 PM COMPARISON: NONE CLINICAL HISTORY: swelling. Left leg swelling SIDE PERFORMED: Left TECHNIQUE: The lower extremity deep venous system is examined utilizing real time linear array sonog andre with graded compression, doppler sonography and color-flow sonography. VESSELS IMAGED: External Iliac Vein (EIV) Common Femoral Vein Deep Femoral Vein Greater Saphenous Vein * Femoral Vein Popliteal Vein Small Saphenous Vein * Proximal Calf Veins (* superficial vessels) Left Leg: Positive for DVT There is thrombus within the distal pop vein with no flow and it is not compressible. Floor nurse Mat t given preliminary by green lumber grader. IMPRESSION: There is evidence for acute deep vein thrombosis involving the popliteal vein.
[2020-02-09] MEDS: ROPIVACAINE 250 MG, HYDROMORPHONE (PF) 5 MG in SODIUM CHLORIDE 0.9% 200 ML EPIDURAL PRN (17:33)
[2020-02-09] MEDS ORDERED: HYDROmorphone 1 MG/ML 1 ML SYRINGE IVP PRN (19:36)
[2020-02-09 21:28] LABS: Basophils % (A) 0 %; Eosinophils # (A) 0.1 k/uL (0-0.7); Eosinophils % (A) 1 %; HCT 32.7 % (39.0-53.0); HGB 10.8 gm/dL (13.0-17.5); Lymphocytes # (A) 1.2 k/uL (1.0-4.8); Lymphocytes % (A) 10 %; MCH 36.3 pg (25.0-35.0); MCV 109.8 fL (80.0-100.0); Mean Platelet Volume 8.4; Monocytes # (A) 0.7 k/uL (0-1.0); Monocytes % (A) 6 %; Neutrophils # (A) 9.5 k/uL (1.3-7.7); Neutrophils % (A) 81 %; Platelet Count 204 k/uL (150-450); RBC 2.98 m/uL (4.30-5.90); RDW 13.1 % (11.5-15.5); WBC 11.7 k/uL (3.8-10.6)
[2020-02-09 21:31] LABS: Macrocytosis Marked
[2020-02-09 21:39] LABS: INR 1.2 (<1.2); Partial Thromboplastin Time 26.3 sec (22.0-30.0); Prothrombin Time 11.7 sec (9.0-12.0)
[2020-02-09] MEDS: HEPARIN SOD,PORK IN 0.45% NACL 25,000 UNIT in 0.45% NACL 1 250ML.BAG IV SCH (21:49)
[2020-02-09] MEDS: HEPARIN SODIUM,PORCINE 5,000 UNIT/ML 1 ML VIAL IV PRN (22:07)
[2020-02-10 03:00] LABS: Basophils % (A) 0 %; Eosinophils # (A) 0.1 k/uL (0-0.7); Eosinophils % (A) 1 %; HCT 34.3 % (39.0-53.0); HGB 10.9 gm/dL (13.0-17.5); Lymphocytes % (A) 9 %; MCHC 31.7 g/dL (31.0-37.0); MCV 110.3 fL (80.0-100.0); Macrocytosis Marked; Mean Platelet Volume 8.3; Monocytes # (A) 0.8 k/uL (0-1.0); Monocytes % (A) 7 %; Neutrophils # (A) 9.9 k/uL (1.3-7.7); Neutrophils % (A) 83 %; Platelet Count 230 k/uL (150-450); RBC 3.11 m/uL (4.30-5.90); WBC 11.9 k/uL (3.8-10.6)
[2020-02-10] MEDS: D5-0.45% NACL WITH KCL 20MEQ/L 1,000 ML IV SCH ×3 (05:03→21:51)
[2020-02-10] MEDS: LACTATED RINGERS 1,000 ML IV SCH (05:54)
[2020-02-10] MEDS: NICOTINE 21MG/24HR PATCH TRANSDERM SCH ×2 (08:44→08:45)
[2020-02-10] MEDS: MULTIVITAMINS, THERA 1 EACH TAB PO SCH (08:44)
[2020-02-10] MEDS: ALVIMOPAN 12 MG CAPSULE PO SCH ×2 (08:44→21:34)
[2020-02-10] MEDS: METOPROLOL SUCCINATE (ER) 25 MG TAB.ER.24H PO SCH (08:44)
[2020-02-10] MEDS: THIAMINE 100 MG TAB PO SCH ×2 (08:44→16:49)
[2020-02-10] MEDS: BACLOFEN 10 MG TAB PO SCH ×2 (08:44→21:34)
[2020-02-10] MEDS: FAMOTIDINE 20 MG/2 ML VIAL IV SCH ×2 (08:44→21:33)
[2020-02-10] MEDS: PIPERACILLIN-TAZOBACTAM 3.375 GM in SODIUM CHLORIDE 0.9% 100 ML IVPB SCH ×3 (08:45→23:31)
[2020-02-10 09:22] LABS: African American GFR (CKD) 164.9 (60.0-200.0); Anion Gap 7.1 mmol/L (4.00-12.00); BUN/Creat Ratio 23.33 Ratio (12.00-20.00); Calcium 7.3 mg/dL (8.7-10.3); Carbon Dioxide 25.9 mmol/L (21.6-31.8); Non-African American GFR(CKD) 142.3 (60.0-200.0); Potassium 3.4 mmol/L (3.5-5.5)
--- NOTE | 2020-02-10 10:14 | P.PN ---
Progress Note - Text Progress Note Date: 02/10/20 Patient is resting comfortably in his bed. He appears to be slightly confused. On exam vital signs are stable. Abdomen soft. Incisions clean and intact. Status post low anterior resection for diverticulitis. Patient will continue receive supportive care.
--- NOTE | 2020-02-10 15:43 | P.PN ---
Subjective Progress Note Date: 02/10/20 Principal diagnosis: Status post low anterior resection for sigmoid diverticulitis and Left LE DVT Mr. Carter is a 64-year-old male admitted for complications of diverticulitis. CAT scan of the abdomen January 08 showed possible stricture. Patient underwent low anterior resection on February 06. He is postop day 3. On 02/10/2020 - the patient's left lower extremity was more swollen than the right extremity, so her left lower extremity Doppler was obtained yesterday. The patient was found to have popliteal Isr[place] DVT. Patient's epidural has been discontinued. Hematology has been consulted regarding anticoagulation choice. Dr. Stewart suggested that the patient be started on heparin for his DVT which was initiated yesterday. As per the nursing staff report no acute events overnight. Patient does confused while sleeping comfortably in bed appears to be in no acute distress. Patient denies having any chest pain or palpitations. He complains of abdominal soreness. Patient did not have a bowel movement. He has a Lemus's catheter in place. Due to patient's alcohol history he is still on the CIWA scale, but not requiring Ativan currently. On reviewing the vitals patient's temperature is 98.4, heart rate 62, respiratory rate 17, blood pressure 120%., Saturating at 92% on 4 L of oxygen. Patient labs are reviewed white count of 11.9, hemoglobin 10.9, platelets 2:30. Sodium 132, but patient with 3.4, chloride 99, bicarbonate 25, BN 7, creatinine 0.3. Active Medications Alvimopan (Alvimopan 12 Mg Capsule) 12 mg PO BID [facility] Stop: 02/14/20 21:01 Last Admin: 02/10/20 08:44 Dose: 12 mg Documented by: Baclofen (Baclofen 10 Mg Tab) 20 mg PO BID [facility] Last Admin: 02/10/20 08:44 Dose: 20 mg Documented by: Benzocaine/Menthol (Benzocaine/Menthol Lozeng 1 Each Lozenge) 1 each MUCOUS MEM Q1HR PRN PRN Reason: Sore Throat Famotidine (Famotidine 20 Mg/2 Ml Vial) 20 mg IV BID [facility] Last Admin: 02/10/20 08:44 Dose: 20 mg Documented by: Heparin Sodium (Porcine) (Heparin Sodium,Porcine 5,000 Unit/Ml 1 Ml Vial) 0 unit IV PER PROTOCOL PRN; Protocol PRN Reason: Low PTT Last Admin: 02/09/20 22:07 Dose: 4,640 unit Documented by: Hydromorphone HCl (Hydromorphone 1 Mg/Ml 1 Ml Syringe) 1 mg IVP Q3HR PRN PRN Reason: Pain Lactated Ringer's (Lactated Ringers) 1,000 mls @ 20 mls/hr IV .Q24H [facility] Last Admin: 02/10/20 05:54 Dose: Not Given Documented by: Ropivacaine 250 mg/Hydromorphone HCl 5 mg/ Sodium Chloride 250 mls @ 0 mls/hr EPIDURAL .Q0M PRN; Protocol PRN Reason: Pain Control Last Admin: 02/09/20 17:33 Dose: 6 mls/hr Documented by: Potassium Chloride/Dextrose/Sod Cl (D5%-1/2ns-Kcl 20 Meq/L Iv Solution) 1,000 mls @ 125 mls/hr IV .Q8H [facility] Last Admin: 02/10/20 08:46 Dose: 125 mls/hr Documented by: Piperacillin Sod/Tazobactam (Sod 3.375 gm/ Sodium Chloride) 100 mls @ 25 mls/hr IVPB Q8HR [facility] Last Admin: 02/10/20 08:45 Dose: 25 mls/hr Documented by: Heparin Sodium/Sodium Chloride (25,000 unit/ Sodium Chloride) 250 mls @ 10.44 mls/hr IV .[id number] [facility]; Protocol Last Titration: 02/10/20 14:55 Dose: 19 units/kg/hr, 11.02 mls/hr Documented by: Lidocaine HCl (Lidocaine 1% (10mg/Ml) For Iv Start) 0.1 ml INTRADERMA PER PROTOCOL PRN PRN Reason: IV Start Last Admin: 02/07/20 08:28 Dose: 0.1 ml Documented by: Lorazepam (Lorazepam 2 Mg/Ml Inj) 1 mg IV Q2HR PRN PRN Reason: CIWA 8 or 9 Lorazepam (Lorazepam 2 Mg/Ml Inj) 1 mg IV Q1HR PRN PRN Reason: CIWA 10 to 15 Metoclopramide HCl (Metoclopramide 5 Mg/Ml 2 Ml Vial) 10 mg IVP Q6HR PRN PRN Reason: Nausea and Vomiting Metoprolol Succinate (Metoprolol Succinate (Er) 25 Mg Tab.Er.24h) 25 mg PO DAILY [facility] Last Admin: 02/10/20 08:44 Dose: 25 mg Documented by: Multivitamins (Multivitamins, Thera 1 Each Tab) 1 each PO DAILY [facility] Last Admin: 02/10/20 08:44 Dose: 1 each Documented by: Naloxone HCl (Naloxone 0.4 Mg/Ml 1 Ml Vial) 0.2 mg IV Q2M PRN PRN Reason: Opioid Reversal Nicotine (Nicotine 21mg/24hr Patch) 1 patch TRANSDERM DAILY [facility] Last Admin: 02/10/20 08:45 Dose: 1 patch Documented by: Nicotine Polacrilex (Nicotine Polacrilex 2 Mg Gum) 2 mg BUCCAL Q4HR PRN PRN Reason: Nicotine Cravings Ondansetron HCl (Ondansetron 4 Mg/2 Ml Vial) 4 mg IVP Q8HR PRN PRN Reason: Nausea And Vomiting Thiamine HCl (Thiamine 100 Mg Tab) 100 mg PO BID-W/MEALS [facility] Last Admin: 02/10/20 08:44 Dose: 100 mg Documented by: Objective - Vital Signs Vital signs: Vital Signs Temp 98.4 F 02/10/20 15:00 Pulse 62 02/10/20 15:00 Resp 17 02/10/20 15:00 BP 120/78 02/10/20 15:00 Pulse Ox 92 L 02/10/20 15:00 Intake & Output 02/09/20 02/10/20 02/10/20 18:59 06:59 18:59 Intake Total 1275 76.425 83.153 Output Total 250 1200 Balance 1025 -1123.575 83.153 Intake: Intake, IV Titration 1100 76.425 83.153 Amount D5-0.45% NaCl with KCl 1000 20Meq/l 1,000 ml @ 125 mls/hr IV .Q8H [facility] Rx#: [id number] Heparin Sod,Pork in 0.45% 76.425 83.153 NaCl 25,000 unit In 0.45 % NaCl 1 250ml.bag @ 18 UNITS/KG/HR 10.44 mls/hr IV .[id number] [facility] Rx#: [id number] Piperacillin-Tazobactam 3 100 .375 gm In Sodium Chloride 0.9% 100 ml @ 25 mls/hr IVPB Q8HR [facility] Rx# :[id number] Oral 175 Output: Urine 250 1200 Other: Voiding Method Indwelling Catheter Indwelling Catheter Indwelling Catheter - Exam Physical examination: GENERAL: Sleeping in bed. Appears comfortable and in no acute distress. Temporal wasting is noted EYES: Pupils equal. Conjunctiva normal. HEENT: External appearance of nose and ears normal, oral cavity grossly normal. NECK: JVD not raised; masses not palpable. HEART: First and second heart sounds are normal; no edema. LUNGS: Respiratory rate normal; decreased breath sounds. ABDOMEN: Soft, mild tenderness, or to: Dressing over the incision, liver spleen not palpable, no masses palpable. No bowel sounds Extremities: Left lower extremity more swollen than the right extremity. NEUROLOGICAL: Patient is awake, alert, oriented 2 - Labs CBC & Chem 7: 02/10/20 02:34 02/10/20 02:34 Labs: Abnormal Lab Results - Last 24 Hours (Table) 02/09/20 02/09/20 02/10/20 Range/Units 21:07 21:07 02:34 WBC 11.7 H 11.9 H (3.8-10.6) k/uL RBC 2.98 L 3.11 L (4.30-5.90) m/uL Hgb 10.8 L 10.9 L (13.0-17.5) gm/dL Hct 32.7 L 34.3 L (39.0-53.0) % MCV 109.8 H 110.3 H (80.0-100.0) fL MCH 36.3 H (25.0-35.0) pg Neutrophils # 9.5 H 9.9 H (1.3-7.7) k/uL Macrocytosis Marked A Marked A INR 1.2 H (<1.2) APTT (22.0-30.0) sec Sodium (135-145) mmol/L Potassium (3.5-5.5) mmol/L BUN (9.0-27.0) mg/dL Creatinine (0.6-1.5) mg/dL BUN/Creatinine Ratio (12.00-20.00) Ratio Calcium (8.7-10.3) mg/dL 02/10/20 02/10/20 02/10/20 Range/Units 02:34 02:34 05:25 WBC (3.8-10.6) k/uL RBC (4.30-5.90) m/uL Hgb (13.0-17.5) gm/dL Hct (39.0-53.0) % MCV (80.0-100.0) fL MCH (25.0-35.0) pg Neutrophils # (1.3-7.7) k/uL Macrocytosis INR (<1.2) APTT 190.4 H* 35.3 H (22.0-30.0) sec Sodium 132 L (135-145) mmol/L Potassium 3.4 L (3.5-5.5) mmol/L BUN 7.0 L (9.0-27.0) mg/dL Creatinine 0.3 L (0.6-1.5) mg/dL BUN/Creatinine Ratio 23.33 H (12.00-20.00) Ratio Calcium 7.3 L (8.7-10.3) mg/dL 02/10/20 Range/Units 11:30 WBC (3.8-10.6) k/uL RBC (4.30-5.90) m/uL Hgb (13.0-17.5) gm/dL Hct (39.0-53.0) % MCV (80.0-100.0) fL MCH (25.0-35.0) pg Neutrophils # (1.3-7.7) k/uL Macrocytosis INR (<1.2) APTT 98.9 H (22.0-30.0) sec Sodium (135-145) mmol/L Potassium (3.5-5.5) mmol/L BUN (9.0-27.0) mg/dL Creatinine (0.6-1.5) mg/dL BUN/Creatinine Ratio (12.00-20.00) Ratio Calcium (8.7-10.3) mg/dL Assessment and Plan Assessment: Assessment: -Status post low anterior resection, for diverticulitis complication - Acute Left lower extremity DVT -Chronic nicotine dependence patient cigarette smoker -Clinical emphysema, asymptomatic -Suspect alcoholic hepatitis -Mild hyponatremia -Macrocytic anemia. Rule out B12 deficiency Plan: Patient had ultrasound venous Doppler of the left lower extremity, that was positive for acute DVT, epidural has been discontinued and the patient is started on IV heparin. Hematology on board. Postop care as per primary team. Further recommendations depending on the progress of the patient. Thank you Dr. Lee.
[2020-02-10] MEDS: HEPARIN SOD,PORK IN 0.45% NACL 25,000 UNIT in 0.45% NACL 1 250ML.BAG IV SCH (21:42)
[2020-02-10] MEDS: HEPARIN SODIUM,PORCINE 5,000 UNIT/ML 1 ML VIAL IV PRN (21:45)
[2020-02-10] MEDS: LORazepam 2 MG/ML INJ IV PRN (21:59)
[2020-02-11 03:16] LABS: Basophils % (A) 0 %; Eosinophils # (A) 0.1 k/uL (0-0.7); Eosinophils % (A) 1 %; HCT 32.2 % (39.0-53.0); HGB 10.4 gm/dL (13.0-17.5); Lymphocytes % (A) 16 %; MCH 35.1 pg (25.0-35.0); MCHC 32.3 g/dL (31.0-37.0); MCV 108.9 fL (80.0-100.0); Macrocytosis Marked; Mean Platelet Volume 9.1; Monocytes # (A) 1.6 k/uL (0-1.0); Monocytes % (A) 12 %; Neutrophils # (A) 8.7 k/uL (1.3-7.7); Neutrophils % (A) 68 %; Platelet Count 297 k/uL (150-450); RBC 2.96 m/uL (4.30-5.90); Reticulocyte % 5.4 % (0.5-2.0); WBC 12.7 k/uL (3.8-10.6)
[2020-02-11] MEDS: D5-0.45% NACL WITH KCL 20MEQ/L 1,000 ML IV SCH ×3 (03:36→15:20)
[2020-02-11] MEDS: LACTATED RINGERS 1,000 ML IV SCH (05:00)
[2020-02-11] MEDS: LORazepam 2 MG/ML INJ IV PRN ×2 (05:53→08:32)
[2020-02-11] MEDS: FAMOTIDINE 20 MG/2 ML VIAL IV SCH (08:32)
[2020-02-11] MEDS: NICOTINE 21MG/24HR PATCH TRANSDERM SCH (08:32)
[2020-02-11] MEDS: PIPERACILLIN-TAZOBACTAM 3.375 GM in SODIUM CHLORIDE 0.9% 100 ML IVPB SCH ×2 (08:32→15:21)
[2020-02-11] MEDS: METOPROLOL SUCCINATE (ER) 25 MG TAB.ER.24H PO SCH (08:32)
[2020-02-11] MEDS: BACLOFEN 10 MG TAB PO SCH ×2 (08:33→21:16)
[2020-02-11] MEDS: THIAMINE 100 MG TAB PO SCH ×2 (08:33→15:21)
[2020-02-11] MEDS: ALVIMOPAN 12 MG CAPSULE PO SCH (08:33)
[2020-02-11] MEDS: MULTIVITAMINS, THERA 1 EACH TAB PO SCH (08:33)
[2020-02-11 09:10] LABS: Basophils % (A) 0 %; Eosinophils # (A) 0.1 k/uL (0-0.7); Eosinophils % (A) 1 %; HCT 30.3 % (39.0-53.0); HGB 9.9 gm/dL (13.0-17.5); Lymphocytes # (A) 1.6 k/uL (1.0-4.8); Lymphocytes % (A) 14 %; MCHC 32.6 g/dL (31.0-37.0); MCV 107.5 fL (80.0-100.0); Macrocytosis Moderate; Mean Platelet Volume 10.9; Monocytes # (A) 1.3 k/uL (0-1.0); Monocytes % (A) 11 %; Neutrophils # (A) 8.6 k/uL (1.3-7.7); Neutrophils % (A) 73 %; Platelet Count 292 k/uL (150-450); RBC 2.81 m/uL (4.30-5.90); RDW 13.8 % (11.5-15.5); WBC 11.7 k/uL (3.8-10.6)
--- NOTE | 2020-02-11 10:13 | CT ---
EXAMINATION TYPE: CT angio chest DATE OF EXAM: 02/11/2020 10:04 AM COMPARISON: Chest x-ray March 06, 2015 HISTORY: SOB, PE CT DLP: 287.3 mGycm Automated exposure control for dose reduction was used. CONTRAST: CTA scan of the thorax is performed with IV Contrast, patient injected with 100 mL of Isovue 370, pul monary embolism protocol. MIP images are created and reviewed. FINDINGS: LUNGS: There are small bilateral pleural effusions with associated compressive atelectasis. Exam subo ptimal as patient unable to hold breath. This limits evaluation for subcentimeter nodules. Multifocal areas of groundglass opacity in the upper lungs bilaterally are present. The pneumothorax seen bilat erally. MEDIASTINUM: There is suboptimal bolus with most dense contrast in the aorta, there is no saddle Cent ral pulmonary embolism. Evaluation for lobar as well as segmental and subsegmental PE is nondiagnosti c on this study. There are no greater than 1 cm hilar or mediastinal lymph nodes. No cardiomegaly o r pericardial effusion is seen. Fluid dilated esophagus from just above eber to the stomach. Gas-di stended esophagus proximal to this from sternal notch. Partial visualization of distended stomach wit h air-fluid level. Coronary artery calcification and/or stents. No thoracic aortic aneurysm or dissec tion OTHER: Perihepatic and perisplenic ascites. Overlying vertical skin yvonne. Underlying scoliosis. S ubareolar bilateral gynecomastia. Overlying surgical skin yvonne in the abdomen on localizer with linda bcutaneous air. Findings consistent with recent intra-abdominal surgery. IMPRESSION: 1. Suboptimal study. No large saddle central pulmonary embolism. Nondiagnostic for peripheral pulmona ry emboli. 2. Small bilateral pleural effusions. Multifocal groundglass opacities could reflect edema and/or inf iltrates. 3. Recent intra-abdominal surgery. Distended stomach with distended fluid-filled esophagus. Consider nasogastric tube decompression as patient is at increased risk for aspiration.
[2020-02-11 10:26] LABS: Folate, Serum 4.6 ng/mL
[2020-02-11 10:55] LABS: % Iron Saturation 38.24 (15.00-50.00); African American GFR (CKD) 146.5 (60.0-200.0); Albumin 1.9 g/dL (3.80-4.90); Albumin/Globulin Ratio 0.95 (1.60-3.17); Anion Gap 4.4 mmol/L (4.00-12.00); Bilirubin, Conjugated 0.4 mg/dL (0.20-0.40); Bilirubin,Unconjugated 0.3 mg/dL; Calcium 7.4 mg/dL (8.7-10.3); Carbon Dioxide 26.6 mmol/L (21.6-31.8); Ferritin 363.3 ng/mL (22.0-322.0); Non-African American GFR(CKD) 126.4 (60.0-200.0); Potassium 3.8 mmol/L (3.5-5.5); Total Bilirubin 0.7 mg/dL (0.2-1.2); Total Protein 3.9 g/dL (6.2-8.2)
--- NOTE | 2020-02-11 11:15 | P.CRDCN ---
History of Present Illness History of present illness: HISTORY OF PRESENTING ILLNESS This is a pleasant 64-year-old male past medical history significant for daily regular alcohol abuse, hypertension and chronic nicotine dependence. We have been asked to see in consultation for tachycardia. He is seen and examined resting comfortably laying flat in bed in no acute distress. He is somewhat lethargic as the nurses just administered IV Ativan which she is maintained on secondary to alcohol withdrawal. Information is obtained from the medical record and the nursing staff. He initially presented to the hospital for an elective lower anterior resection secondary to diverticulitis. His recovery has been complicated by alcohol withdrawal and DVT. This morning he was noted to be tachycardic with a heart rate of 132 and blood pressure 96/68. Of note the nurse does state at that time he was quite anxious and shaky and was given some IV Ativan. The nurse states he was not complaining of any significant shortness of breath or chest pain. He was started on heparin infusion 2 days ago for left lower extremity DVT. DIAGNOSTICS EKG reveals sinus tachycardia. CTA was a suboptimal study with no evidence of large saddle central PE and nondiagnostic for peripheral pulmonary emboli, small bilateral pleural effusions, multifocal ground glass opacity is an recent intra-abdominal surgery with a distended stomach with distended fluid-filled esophagus. Laboratory reviewed, WBC 11.7, hemoglobin 9.9, platelets 292, sodium 131, po tassium 3.8, creatinine 0.4. Current daily cardiac medications include toprol 25 mg daily. REVIEW OF SYSTEMS At the time of my exam: Unable to obtain accurate review of systems secondary to altered mental status and lethargy from recent ativan administration. PHYSICAL EXAMINATION Blood pressure 90/65 heart rate 124 afebrile and maintaining oxygen saturation on nasal cannula. CONSTITUTIONAL: No apparent distress. HEENT: Head is normocephalic. Pupils are equal, round. Sclerae anicteric. Mucous membranes of the mouth are moist. No JVD. No carotid bruit. CHEST EXAMINATION: Lungs are clear to auscultation. No chest wall tenderness is noted on palpation or with deep breathing. HEART EXAMINATION: Regular rate and rhythm. S1, S2 heard. No murmurs, gallops or rub. ABDOMEN: Soft, nontender. Positive bowel sounds. EXTREMITIES: 2+ peripheral pulses, no lower extremity edema and no calf tendern ess. NEUROLOGIC EXAMINATION: Patient is lethargic ASSESSMENT Sinus tachycardia s/p lower anterior resection, POD#4 Hypertension, maintained on toprol Left lower extremity DVT Alcohol withdrawal PLAN Given his recent diagnosis of DVT we recommended a CTA for possible PE. This came to be negative. Currently maintained on heparin for DVT, anti-coagulation per hematology. Obtain 2D echocardiogram and doppler study to assess cardiac structure and function. Consider decreasing ativan use as he is quite lethargic this morning. Apply python developer to assess for an acute arrhythmia. Thank you kindly for this consultation. Nurse Practitioner note has been reviewed, I agree with a documented findings and plan of care. Patient was seen and examined. Past Medical History Past Medical History: No Reported History Additional Past Medical History / Comment(s): varicose veins, vitiligo, Diarrhea, diverticulitis. History of Any Multi-Drug Resistant Organisms: None Reported Past Surgical History: Appendectomy, Orthopedic Surgery Additional Past Surgical History / Comment(s): knee surgery(fx), 03-23-16 total lt hip (fx) Past Anesthesia/Blood Transfusion Reactions: No Reported Reaction Additional Past Anesthesia/Blood Transfusion Reaction / Comment(s): unknown family hx-adopted Past Psychological History: No Psychological Hx Reported Smoking Status: Current every day smoker Past Alcohol Use History: Daily Additional Past Alcohol Use History / Comment(s): STARTED SMOKING AT AGE 22, SMOKES 1/2 PPD. DRINKS 2-3 BEERS/DAY Past Drug Use History: None Reported - Past Family History Mother Family Medical History: Unable to Obtain Additional Family Medical History / Comment(s): PT WAS ADOPTED Father Family Medical History: Unable to Obtain Additional Family Medical History / Comment(s): PT WAS ADOPTED Medications and Allergies Home Medications Medication Instructions Recorded Confirmed Type Baclofen [Lioresal] 20 mg PO BID 02/04/20 02/07/20 History Ciprofloxacin HCl [Cipro] 500 mg PO BID 02/04/20 02/07/20 History Metoprolol Succinate [Toprol XL] 25 mg PO DAILY 02/04/20 02/07/20 History metroNIDAZOLE [Flagyl] 500 mg PO TID 02/04/20 02/07/20 History Allergies Allergy/AdvReac Type Severity Reaction Status Date / Time No Known Allergies Allergy Verified 02/07/20 08:20 Physical Exam Vitals: Vital Signs Temp Pulse Resp BP Pulse Ox 02/11/20 07:00 97.9 F 124 H 16 90/65 95 02/11/20 06:07 106 H 96/65 02/11/20 05:47 97.5 F L 132 H 18 96/68 94 L 02/11/20 00:19 98.6 F 110 H 20 109/74 95 02/10/20 19:06 98.3 F 98 16 125/82 93 L 02/10/20 15:00 98.4 F 62 17 120/78 92 L Intake and Output 02/10/20 02/11/20 02/11/20 22:59 06:59 14:59 Intake Total 73.467 84.264 Output Total 500 100 Balance -426.533 -15.736 Intake: Intake, IV Titration 73.467 84.264 Amount Heparin Sod,Pork in 0.45% 73.467 84.264 NaCl 25,000 unit In 0.45 % NaCl 1 250ml.bag @ 18 UNITS/KG/HR 10.44 mls/hr IV .[id number] [facility] Rx#: [id number] Output: Urine 500 100 Other: Voiding Method Indwelling Catheter Indwelling Catheter # Bowel Movements 1 Results 02/11/20 05:16 02/10/20 02:34 Coagulation 02/10/20 02/10/20 02/11/20 Range/Units 11:30 20:18 02:27 APTT 98.9 H 33.5 H >200.0 H* (22.0-30.0) sec 02/11/20 Range/Units 05:16 APTT 39.7 H (22.0-30.0) sec CBC 02/11/20 02/11/20 Range/Units 02:27 05:16 WBC 12.7 H 11.7 H (3.8-10.6) k/uL RBC 2.96 L 2.81 L (4.30-5.90) m/uL Hgb 10.4 L 9.9 L (13.0-17.5) gm/dL Hct 32.2 L 30.3 L (39.0-53.0) % Plt Count 297 292 (150-450) k/uL Current Medications Generic Name Dose Route Start Last Admin Trade Name Freq PRN Reason Stop Dose Admin Alvimopan 12 mg 02/08/20 09:00 02/11/20 08:33 Alvimopan 12 Mg Capsule PO 02/14/20 21:01 12 mg BID JOANA Administration Baclofen 20 mg 02/07/20 21:00 02/11/20 08:33 Baclofen 10 Mg Tab PO 20 mg BID JOANA Administration Benzocaine/Menthol 1 each 02/07/20 11:56 Benzocaine/Menthol Lozeng 1 Each Lozenge MUCOUS MEM Q1HR PRN Sore Throat Famotidine 20 mg 02/07/20 21:00 02/11/20 08:32 Famotidine 20 Mg/2 Ml Vial IV 20 mg BID JOANA Administration Heparin Sodium (Porcine) 0 unit 02/09/20 20:20 02/10/20 21:45 Heparin Sodium,Porcine 5,000 Unit/Ml 1 Ml Vial IV 4,640 unit PER PROTOCOL PRN Administration Low PTT Protocol Hydromorphone HCl 1 mg 02/09/20 19:36 Hydromorphone 1 Mg/Ml 1 Ml Syringe IVP Q3HR PRN Pain Lactated Ringer's 1,000 mls @ 20 mls/hr 02/07/20 06:42 02/11/20 05:00 Lactated Ringers IV Not Given .Q24H JOANA Ropivacaine 250 mg/ 250 mls @ 0 mls/hr 02/07/20 10:00 02/09/20 17:33 Hydromorphone HCl 5 mg/ Sodium EPIDURAL 6 mls/hr Chloride .Q0M PRN Administration Pain Control Protocol Per Protocol Potassium Chloride/Dextrose/Sod Cl 1,000 mls @ 125 mls/hr 02/07/20 19:00 02/11/20 08:43 D5%-1/2ns-Kcl 20 Meq/L Iv Solution IV 125 mls/hr .Q8H JOANA Administration Piperacillin Sod/Tazobactam 100 mls @ 25 mls/hr 02/08/20 16:00 02/11/20 08:32 Sod 3.375 gm/ Sodium Chloride IVPB 25 mls/hr Q8HR JOANA Administration Heparin Sodium/Sodium Chloride 250 mls @ 10.44 mls/hr 02/09/20 20:30 02/11/20 06:10 25,000 unit/ Sodium Chloride IV 20 units/kg/hr .[id number] JOANA 11.6 mls/hr Titration Protocol 18 UNITS/KG/HR Lidocaine HCl 0.1 ml 02/07/20 06:42 02/07/20 08:28 Lidocaine 1% (10mg/Ml) For Iv Start INTRADERMA 0.1 ml PER PROTOCOL PRN Administration IV Start Lorazepam 1 mg 02/08/20 10:42 02/11/20 08:32 Lorazepam 2 Mg/Ml Inj IV 1 mg Q2HR PRN Administration CIWA 8 or 9 Lorazepam 1 mg 02/08/20 10:42 02/11/20 05:53 Lorazepam 2 Mg/Ml Inj IV 1 mg Q1HR PRN Administration CIWA 10 to 15 Metoclopramide HCl 10 mg 02/07/20 11:56 Metoclopramide 5 Mg/Ml 2 Ml Vial IVP Q6HR PRN Nausea and Vomiting Metoprolol Succinate 25 mg 02/08/20 09:00 02/11/20 08:32 Metoprolol Succinate (Er) 25 Mg Tab.Er.24h PO 25 mg DAILY JOANA Administration Multivitamins 1 each 02/09/20 09:00 02/11/20 08:33 Multivitamins, Thera 1 Each Tab PO 1 each DAILY JOANA Administration Naloxone HCl 0.2 mg 02/07/20 09:50 Naloxone 0.4 Mg/Ml 1 Ml Vial IV Q2M PRN Opioid Reversal Nicotine 1 patch 02/07/20 20:45 02/11/20 08:32 Nicotine 21mg/24hr Patch TRANSDERM 1 patch DAILY JOANA Administration Nicotine Polacrilex 2 mg 02/07/20 23:12 Nicotine Polacrilex 2 Mg Gum BUCCAL Q4HR PRN Nicotine Cravings Ondansetron HCl 4 mg 02/07/20 11:56 Ondansetron 4 Mg/2 Ml Vial IVP Q8HR PRN Nausea And Vomiting Thiamine HCl 100 mg 02/08/20 17:30 02/11/20 08:33 Thiamine 100 Mg Tab PO 100 mg BID-W/MEALS JOANA Administration Intake and Output 02/10/20 02/11/20 02/11/20 22:59 06:59 14:59 Intake Total 73.467 84.264 Output Total 500 100 Balance -426.533 -15.736 Intake: Intake, IV Titration 73.467 84.264 Amount Heparin Sod,Pork in 0.45% 73.467 84.264 NaCl 25,000 unit In 0.45 % NaCl 1 250ml.bag @ 18 UNITS/KG/HR 10.44 mls/hr IV .[id number] [facility] Rx#: [id number] Output: Urine 500 100 Other: Voiding Method Indwelling Catheter Indwelling Catheter # Bowel Movements 1 02/11/20 05:16 02/10/20 02:34
[2020-02-11 11:37] LABS: Polychromasia Present
[2020-02-11 11:43] LABS: Anisocytosis (M) Present; Poikilocytosis (M) Present
--- NOTE | 2020-02-11 13:28 | P.PN ---
Subjective Progress Note Date: 02/11/20 CHIEF COMPLAINT: Diverticulitis HISTORY OF PRESENT ILLNESS: Patient is status post lower anterior resection, takedown of splenic flexure and partial omentectomy. Patient is lethargic and obtunded this morning. He did require IV Ativan for alcohol withdrawal. He has been hallucinating and been very agitated. He did have a liquidy dark brown bowel movement. PE has been ruled out. He is on IV heparin for his left leg DVT. Afebrile. WBC 12.7 he is requiring 4L oxygen patient has been tachycardic. Evaluated by cardiology. And is on a clear liquid diet. CTA negative for PE. Small bilateral pleural effusions. Recent intra-abdominal surgery. Distended stomach with distended fluid filled esophagus. PHYSICAL EXAM: VITAL SIGNS: Reviewed. GENERAL: Well-developed in no acute distress. HEENT: No sclera icterus. Extraocular movements grossly intact. Moist buccal mucosa. Head is atraumatic, normocephalic. ABDOMEN: Distended NEUROLOGIC: Obtunded ASSESSMENT: 1. Diverticulitis status post lower anterior resection, takedown of splenic flexure and partial omentectomy 2. Alcohol abuse with alcohol withdrawal 3. New left leg DVT anticoagulated with IV heparin. Hematology following 4. Possible ileus PLAN: -Continue IV fluids -Continue clear liquid diet -Continue CIWA protocol with thiamine and multivitamin for alcohol abuse -GI prophylaxis Pepcid and subcu heparin for DVT prophylaxis Physician Digital Advertising Analyst note has been reviewed by physician. Signing provider agrees with the documented findings, assessment, and plan of care. Objective - Vital Signs Vital signs: Vital Signs Temp 97.9 F 02/11/20 07:00 Pulse 110 H 02/11/20 08:00 Resp 16 02/11/20 08:00 BP 90/65 02/11/20 07:00 Pulse Ox 95 02/11/20 07:00 Intake & Output 02/10/20 02/11/20 02/11/20 18:59 06:59 18:59 Intake Total 83.153 157.731 Output Total 200 600 Balance -116.847 -442.269 Intake: Intake, IV Titration 83.153 157.731 Amount Heparin Sod,Pork in 0.45% 83.153 157.731 NaCl 25,000 unit In 0.45 % NaCl 1 250ml.bag @ 18 UNITS/KG/HR 10.44 mls/hr IV .[id number] [facility] Rx#: [id number] Output: Urine 200 600 Other: Voiding Method Indwelling Catheter Indwelling Catheter Indwelling Catheter # Bowel Movements 1 - Labs CBC & Chem 7: 02/11/20 05:16 02/11/20 02:27 Labs: Abnormal Lab Results - Last 24 Hours (Table) 02/10/20 02/11/20 02/11/20 Range/Units 20:18 02:27 02:27 WBC 12.7 H (3.8-10.6) k/uL RBC 2.96 L (4.30-5.90) m/uL Hgb 10.4 L (13.0-17.5) gm/dL Hct 32.2 L (39.0-53.0) % MCV 108.9 H (80.0-100.0) fL MCH 35.1 H (25.0-35.0) pg Neutrophils # 8.7 H (1.3-7.7) k/uL Monocytes # 1.6 H (0-1.0) k/uL Macrocytosis Marked A Retic Count 5.4 H (0.5-2.0) % APTT 33.5 H (22.0-30.0) sec Sodium 131 L (135-145) mmol/L Creatinine 0.4 L (0.6-1.5) mg/dL BUN/Creatinine Ratio 40.00 H (12.00-20.00) Ratio Glucose 112 H (70-110) mg/dL Calcium 7.4 L (8.7-10.3) mg/dL Iron 52 L (65-175) ug/dL TIBC 136 L (228-460) ug/dL Ferritin 363.3 H (22.0-322.0) ng/mL Lactate Dehydrogenase 260 H (120-246) U/L Total Protein 3.9 L (6.2-8.2) g/dL Albumin 1.90 L (3.80-4.90) g/dL Albumin/Globulin Ratio 0.95 L (1.60-3.17) g/dL 02/11/20 02/11/20 02/11/20 Range/Units 02:27 05:16 05:16 WBC 11.7 H (3.8-10.6) k/uL RBC 2.81 L (4.30-5.90) m/uL Hgb 9.9 L (13.0-17.5) gm/dL Hct 30.3 L (39.0-53.0) % MCV 107.5 H (80.0-100.0) fL MCH (25.0-35.0) pg Neutrophils # 8.6 H (1.3-7.7) k/uL Monocytes # 1.3 H (0-1.0) k/uL Macrocytosis Retic Count (0.5-2.0) % APTT >200.0 H* 39.7 H (22.0-30.0) sec Sodium (135-145) mmol/L Creatinine (0.6-1.5) mg/dL BUN/Creatinine Ratio (12.00-20.00) Ratio Glucose (70-110) mg/dL Calcium (8.7-10.3) mg/dL Iron (65-175) ug/dL TIBC (228-460) ug/dL Ferritin (22.0-322.0) ng/mL Lactate Dehydrogenase (120-246) U/L Total Protein (6.2-8.2) g/dL Albumin (3.80-4.90) g/dL Albumin/Globulin Ratio (1.60-3.17) g/dL 02/11/20 Range/Units 12:37 WBC (3.8-10.6) k/uL RBC (4.30-5.90) m/uL Hgb (13.0-17.5) gm/dL Hct (39.0-53.0) % MCV (80.0-100.0) fL MCH (25.0-35.0) pg Neutrophils # (1.3-7.7) k/uL Monocytes # (0-1.0) k/uL Macrocytosis Retic Count (0.5-2.0) % APTT 51.9 H (22.0-30.0) sec Sodium (135-145) mmol/L Creatinine (0.6-1.5) mg/dL BUN/Creatinine Ratio (12.00-20.00) Ratio Glucose (70-110) mg/dL Calcium (8.7-10.3) mg/dL Iron (65-175) ug/dL TIBC (228-460) ug/dL Ferritin (22.0-322.0) ng/mL Lactate Dehydrogenase (120-246) U/L Total Protein (6.2-8.2) g/dL Albumin (3.80-4.90) g/dL Albumin/Globulin Ratio (1.60-3.17) g/dL
--- NOTE | 2020-02-11 15:14 | ECHOF ---
Referral Reason:sob, tachycardia MEASUREMENTS -------- HEIGHT: 172.7 cm WEIGHT: 57.6 kg BP: 90/65 IVSd: 1.3 cm (0.6 - 1.1) LVIDd: 3.1 cm (3.9 - 5.3) LVPWd: 1.2 cm (0.6 - 1.1) IVSs: 1.4 cm LVIDs: 1.4 cm LVPWs: 1.1 cm MV E Dinesh: 0.78 m/s MV DecT: 122 ms MV A Dinesh: 1.43 m/s MV E/A Ratio: 0.54 FINDINGS -------- Resting tachycardia (HR>100bpm). This was a technically difficult study with suboptimal views. Pt. not able to turn due to pain. The left ventricular size is normal. There is mild concentric left ventricular hypertrophy. Overa ll left ventricular systolic function is normal with, an EF between 55 - 60 %. The RV was not well visualized. The left atrium was not well visualized. The right atrium was not well visualized. 5.0mg of Lumason was utilized for enhancement of images Interatrial and interventricular septum intact. The aortic valve was not well visualized. There is no evidence of aortic regurgitation. There is no evidence of aortic stenosis. The mitral valve was not well visualized. Mild mitral regurgitation is present. The tricuspid valve was not well visualized. Mild tricuspid regurgitation present. There is no ev idence of pulmonary hypertension. The right ventricular systolic pressure, as measured by Doppler, is {RVSP}. The pulmonic valve was not well visualized. The aortic root size is normal. IVC Not well visulized. There is no pericardial effusion. CONCLUSIONS -------- 1. The left ventricular size is normal. 2. There is mild concentric left ventricular hypertrophy. 3. Overall left ventricular systolic function is normal with, an EF between 55 - 60 %. 4. Mild mitral regurgitation is present. 5. Mild tricuspid regurgitation present. CALL WORKER: Lucrecia Anderson RDCS
--- NOTE | 2020-02-11 19:13 | P.CONS ---
History of Present Illness - Reason for Consult Consult date: 02/11/20 LLE DVT - History of Present Illness The patient is a 64-year-old white male with multiple medical problems, in cluding history of chronic alcohol abuse and nicotine dependence. The patient was admitted for elective lower anterior resection for recurrent diverticulitis. The surgical course was completed by alcohol withdrawal. He was also found to have left ankle swelling and pain. Dopplers revealed left popliteal DVT. The patient's epidural catheter was removed and he was started on IV heparin and consult placed. The patient subsequently also developed tachycardia, and had a CTA that was negative for central pulmonary emboli. However, bolus was suboptimal due to which evaluation of more peripheral vessels was nondiagnostic. The patient has been having issues with withdrawal due to which he was sedated. He was very drowsy even with vigorous attempts to awaken him. Therefore history was obtained from the chart and from nursing. Review of Systems Constitutional: Reports fatigue, Reports lethargy, Reports weakness Eyes: denies blurred vision, denies pain Ears: deny: decreased hearing, ear discharge, earache, tinnitus Ears, nose, mouth and throat: Denies headache, Denies sore throat Cardiovascular: Reports dyspnea on exertion, Reports rapid heart beat Respiratory: Denies cough Gastrointestinal: Reports abdominal pain, Reports change in bowel habits Genitourinary: Reports as per HPI Musculoskeletal: left: ankle pain Neurological: Reports confusion, Reports weakness Psychiatric: Reports as per HPI, Reports confusion, Reports disorientation Endocrine: Reports fatigue Hematologic/Lymphatic: Reports as per HPI Past Medical History Past Medical History: No Reported History Additional Past Medical History / Comment(s): varicose veins, vitiligo, Diarrhea, diverticulitis. History of Any Multi-Drug Resistant Organisms: None Reported Past Surgical History: Appendectomy, Orthopedic Surgery Additional Past Surgical History / Comment(s): knee surgery(fx), 03-23-16 total lt hip (fx) Past Anesthesia/Blood Transfusion Reactions: No Reported Reaction Additional Past Anesthesia/Blood Transfusion Reaction / Comm: unknown family hx- adopted Past Psychological History: No Psychological Hx Reported Smoking Status: Current every day smoker Past Alcohol Use History: Daily Additional Past Alcohol Use History / Comment(s): STARTED SMOKING AT AGE 22, SMOKES 1/2 PPD. DRINKS 2-3 BEERS/DAY Past Drug Use History: None Reported - Past Family History Mother Family Medical History: Unable to Obtain Additional Family Medical History / Comment(s): PT WAS ADOPTED Father Family Medical History: Unable to Obtain Additional Family Medical History / Comment(s): PT WAS ADOPTED Medications and Allergies Home Medications Medication Instructions Recorded Confirmed Type Baclofen [Lioresal] 20 mg PO BID 02/04/20 02/07/20 History Ciprofloxacin HCl [Cipro] 500 mg PO BID 02/04/20 02/07/20 History Metoprolol Succinate [Toprol XL] 25 mg PO DAILY 02/04/20 02/07/20 History metroNIDAZOLE [Flagyl] 500 mg PO TID 02/04/20 02/07/20 History Allergies Allergy/AdvReac Type Severity Reaction Status Date / Time No Known Allergies Allergy Verified 02/07/20 08:20 Physical Exam Vitals: Vital Signs Temp Pulse Resp BP Pulse Ox 02/11/20 15:00 96.9 F L 82 16 107/74 94 L 02/11/20 08:00 110 H 16 02/11/20 07:00 97.9 F 124 H 16 90/65 95 02/11/20 06:07 106 H 96/65 02/11/20 05:47 97.5 F L 132 H 18 96/68 94 L 02/11/20 00:19 98.6 F 110 H 20 109/74 95 02/10/20 19:06 98.3 F 98 16 125/82 93 L Intake and Output 02/11/20 02/11/20 02/11/20 06:59 14:59 22:59 Intake Total 84.264 84.487 Output Total 100 Balance -15.736 84.487 Intake: Intake, IV Titration 84.264 84.487 Amount Heparin Sod,Pork in 0.45% 84.264 84.487 NaCl 25,000 unit In 0.45 % NaCl 1 250ml.bag @ 18 UNITS/KG/HR 10.44 mls/hr IV .[id number] [facility] Rx#: [id number] Output: Urine 100 Other: Voiding Method Indwelling Catheter Indwelling Catheter # Bowel Movements 1 - Constitutional Sleeping, difficult to arouse General appearance: no acute distress - EENT Eyes: PERRLA ENT: hearing grossly normal, normal oropharynx - Neck Neck: no lymphadenopathy Thyroid: bilateral: normal size - Respiratory Respiratory: bilateral: CTA - Cardiovascular Rhythm: regular Heart sounds: normal: S1, S2 - Gastrointestinal General gastrointestinal: absent bowel sounds, soft - Integumentary Integumentary: normal - Neurologic Sleepy, difficult to arouse Moving all 4 extremities - Musculoskeletal Musculoskeletal: generalized weakness, strength equal bilaterally - Psychiatric Sleeping, difficult to arouse Results CBC & Chem 7: 02/11/20 05:16 02/11/20 02:27 Labs: Abnormal Lab Results - Last 24 Hours (Table) 02/10/20 02/11/20 02/11/20 Range/Units 20:18 02:27 02:27 WBC 12.7 H (3.8-10.6) k/uL RBC 2.96 L (4.30-5.90) m/uL Hgb 10.4 L (13.0-17.5) gm/dL Hct 32.2 L (39.0-53.0) % MCV 108.9 H (80.0-100.0) fL MCH 35.1 H (25.0-35.0) pg Neutrophils # 8.7 H (1.3-7.7) k/uL Monocytes # 1.6 H (0-1.0) k/uL Macrocytosis Marked A Retic Count 5.4 H (0.5-2.0) % APTT 33.5 H (22.0-30.0) sec Sodium 131 L (135-145) mmol/L Creatinine 0.4 L (0.6-1.5) mg/dL BUN/Creatinine Ratio 40.00 H (12.00-20.00) Ratio Glucose 112 H (70-110) mg/dL Calcium 7.4 L (8.7-10.3) mg/dL Iron 52 L (65-175) ug/dL TIBC 136 L (228-460) ug/dL Ferritin 363.3 H (22.0-322.0) ng/mL Lactate Dehydrogenase 260 H (120-246) U/L Total Protein 3.9 L (6.2-8.2) g/dL Albumin 1.90 L (3.80-4.90) g/dL Albumin/Globulin Ratio 0.95 L (1.60-3.17) g/dL 02/11/20 02/11/20 02/11/20 Range/Units 02:27 05:16 05:16 WBC 11.7 H (3.8-10.6) k/uL RBC 2.81 L (4.30-5.90) m/uL Hgb 9.9 L (13.0-17.5) gm/dL Hct 30.3 L (39.0-53.0) % MCV 107.5 H (80.0-100.0) fL MCH (25.0-35.0) pg Neutrophils # 8.6 H (1.3-7.7) k/uL Monocytes # 1.3 H (0-1.0) k/uL Macrocytosis Retic Count (0.5-2.0) % APTT >200.0 H* 39.7 H (22.0-30.0) sec Sodium (135-145) mmol/L Creatinine (0.6-1.5) mg/dL BUN/Creatinine Ratio (12.00-20.00) Ratio Glucose (70-110) mg/dL Calcium (8.7-10.3) mg/dL Iron (65-175) ug/dL TIBC (228-460) ug/dL Ferritin (22.0-322.0) ng/mL Lactate Dehydrogenase (120-246) U/L Total Protein (6.2-8.2) g/dL Albumin (3.80-4.90) g/dL Albumin/Globulin Ratio (1.60-3.17) g/dL 02/11/20 Range/Units 12:37 WBC (3.8-10.6) k/uL RBC (4.30-5.90) m/uL Hgb (13.0-17.5) gm/dL Hct (39.0-53.0) % MCV (80.0-100.0) fL MCH (25.0-35.0) pg Neutrophils # (1.3-7.7) k/uL Monocytes # (0-1.0) k/uL Macrocytosis Retic Count (0.5-2.0) % APTT 51.9 H (22.0-30.0) sec Sodium (135-145) mmol/L Creatinine (0.6-1.5) mg/dL BUN/Creatinine Ratio (12.00-20.00) Ratio Glucose (70-110) mg/dL Calcium (8.7-10.3) mg/dL Iron (65-175) ug/dL TIBC (228-460) ug/dL Ferritin (22.0-322.0) ng/mL Lactate Dehydrogenase (120-246) U/L Total Protein (6.2-8.2) g/dL Albumin (3.80-4.90) g/dL Albumin/Globulin Ratio (1.60-3.17) g/dL Comments: Echocardiogram report reviewed. Ankle x-ray report reviewed CT scan - chest: report reviewed Venous US: report reviewed Assessment and Plan (1) Deep vein thrombosis of left lower extremity Narrative/Plan: Specific history could not be obtained from the patient, but based on available history from the chart and nursing, there appears to be no prior history of DVT or PE, either personal in the family. This particular event appears to be definitely a provoked DVT. This was found in the immediate postsurgical state. In addition prior to surgery the patient had been having some chronic inflammation related to diverticulitis. - Therefore at this time the plan would be for a limited period of anticoagulation, at least 3 months. Typically at that time I would repeat imaging, and if the patient is found to be in a favorable risk profile (resolution of known DVT, as well as no other persistent risk factors) then d iscontinuation off and the correlation will be considered. - The patient had a CTA done because of new onset tachycardia. This was negative, but was a suboptimal study. I will check a VQ scan. If this indicates possibility of a PE, it would not change current management as the patient is already on anticoagulation. However it wouldn't affect the duration of anticoagulation as typically with provoked PE radiation should be at least 6 months. - The patient is currently on IV heparin which is appropriate in the immediate postoperative state. At this time further procedures are not plan, and the patient is more than 2 days after removal of the epidural catheter. Therefore it will be reasonable to consider changing him to Lovenox, and then subsequently to an oral anticoagulant once his bowel function is satisfactory and he starts to eat. The patient did have an episode of black stool without much of a change in hemoglobin since admission. Therefore for now would be reasonable to con tinue IV heparin until GI bleed is ruled out. Current Visit: Yes Status: Acute Code(s): I82.402 - ACUTE EMBOLISM AND CRIS AYALA UNSP DEEP VEINS OF L LOW EXTREM SNOMED Code(s): 488402662 (2) Anemia Narrative/Plan: The patient presented with anemia, even prior to surgery with hemoglobin in the 10-11 range. Given his history of heavy alcohol use, multiple etiologies are possible, including GI blood loss, diminished absorption, as well as direct marrow suppression. Anemia workup will be ordered. Current Visit: Yes Status: Acute Code(s): D64.9 - ANEMIA, UNSPECIFIED SNOMED Code(s): 894393004 Plan: Defer to the admitting service and other consultants for management of his other medical problems
[2020-02-11 19:43] LABS: Glucose,Whole Blood 128 mg/dL (75-99)
[2020-02-11] MEDS ORDERED: SODIUM CHLORIDE 0.9% 500 ML 500 ML IV ONE (19:58)
[2020-02-11 20:32] LABS: HCT 30.5 % (39.0-53.0); HGB 10.1 gm/dL (13.0-17.5); MCH 35.2 pg (25.0-35.0); MCHC 33.1 g/dL (31.0-37.0); MCV 106.4 fL (80.0-100.0); Macrocytosis Moderate; Mean Platelet Volume 9.4; Platelet Count 268 k/uL (150-450); RBC 2.87 m/uL (4.30-5.90); WBC 16.5 k/uL (3.8-10.6)
[2020-02-11 21:08] LABS: Lymphocytes # (M) 3.63 k/uL (1.0-4.8); Monocytes # (M) 2.97 k/uL (0-1.0); Neutrophils # (M) 10.07 k/uL (1.3-7.7); Neutrophils % (M) 61 %; Nucleated Red Blood Cells 0 /100 WBC (0-0); Total Cells Counted 200
[2020-02-11] MEDS: HEPARIN SOD,PORK IN 0.45% NACL 25,000 UNIT in 0.45% NACL 1 250ML.BAG IV SCH (21:15)
[2020-02-11] MEDS: PANTOPRAZOLE 40 MG/10 ML VIAL IVP SCH (21:16)
--- NOTE | 2020-02-11 23:53 | P.PN ---
Subjective Progress Note Date: 02/11/20 Principal diagnosis: Status post low anterior resection for sigmoid diverticulitis and Left LE DVT Mr. Carter is a 64-year-old male admitted for complications of diverticulitis. CAT scan of the abdomen January 08 showed possible stricture. Patient underwent low anterior resection on February 06. He is postop day 3. On 02/10/2020 - the patient's left lower extremity was more swollen than the right extremity, so her left lower extremity Doppler was obtained yesterday. The patient was found to have popliteal Isrrael DVT. Patient's epidural has been discontinued. Hematology has been consulted regarding anticoagulation choice. Dr. Stewart suggested that the patient be started on heparin for his DVT which was initiated yesterday. As per the nursing staff report no acute events overnight. Patient does confused while sleeping comfortably in bed appears to be in no acute distress. Patient denies having any chest pain or palpitations. He complains of abdominal soreness. Patient did not have a bowel movement. He has a Lemus's catheter in place. Due to patient's alcohol history he is still on the CIWA scale, but not requiring Ativan currently. On reviewing the vitals patient's temperature is 98.4, heart rate 62, respiratory rate 17, blood pressure 120%., Saturating at 92% on 4 L of oxygen. Patient labs are reviewed white count of 11.9, hemoglobin 10.9, platelets 2:30. Sodium 132, but patient with 3.4, chloride 99, bicarbonate 25, BN 7, creatinine 0.3. On 02/11/2020 -earlier this morning, patient's APTT was greater than 200, so the heparin drip was held for a few hours. Patient was having tachycardia and was more confused. Patient received a dose of Ativan, so currently he is opening his eyes on calling his name. He is confused. Moving all 4 extremities. Patient had 2 small bowel movements, nonbloody in the light industrial. On reviewing his vitals T-max of 98.6, tachycardic in 120s to 130s, respiratory rate 20, saturating at 95% on 4 L of oxygen. On reviewing the vitals patient's white count of 11.5, hemoglobin 9.9, platelets 292. Sodium 131, potassium 3.8, chloride 100, bicarb 26, BUN 16, creatinine 0.4. Albumin 1.9. Later during the day, patient had a large liquidy dark brown bowel movement. Active Medications Baclofen (Baclofen 10 Mg Tab) 20 mg PO BID [facility] Last Admin: 02/11/20 21:16 Dose: Not Given Documented by: Benzocaine/Menthol (Benzocaine/Menthol Lozeng 1 Each Lozenge) 1 each MUCOUS MEM Q1HR PRN PRN Reason: Sore Throat Heparin Sodium (Porcine) (Heparin Sodium,Porcine 5,000 Unit/Ml 1 Ml Vial) 0 unit IV PER PROTOCOL PRN; Protocol PRN Reason: Low PTT Last Admin: 02/10/20 21:45 Dose: 4,640 unit Documented by: Hydromorphone HCl (Hydromorphone 1 Mg/Ml 1 Ml Syringe) 1 mg IVP Q3HR PRN PRN Reason: Pain Lactated Ringer's (Lactated Ringers) 1,000 mls @ 20 mls/hr IV .Q24H [facility] Last Admin: 02/11/20 05:00 Dose: Not Given Documented by: Ropivacaine 250 mg/Hydromorphone HCl 5 mg/ Sodium Chloride 250 mls @ 0 mls/hr EPIDURAL .Q0M PRN; Protocol PRN Reason: Pain Control Last Admin: 02/09/20 17:33 Dose: 6 mls/hr Documented by: Potassium Chloride/Dextrose/Sod Cl (D5%-1/2ns-Kcl 20 Meq/L Iv Solution) 1,000 mls @ 125 mls/hr IV .Q8H [facility] Last Admin: 02/11/20 15:20 Dose: 125 mls/hr Documented by: Piperacillin Sod/Tazobactam (Sod 3.375 gm/ Sodium Chloride) 100 mls @ 25 mls/hr IVPB Q8HR [facility] Last Admin: 02/11/20 15:21 Dose: 25 mls/hr Documented by: Heparin Sodium/Sodium Chloride (25,000 unit/ Sodium Chloride) 250 mls @ 10.44 mls/hr IV .[id number] [facility]; Protocol Last Admin: 02/11/20 21:15 Dose: Not Given Documented by: Lidocaine HCl (Lidocaine 1% (10mg/Ml) For Iv Start) 0.1 ml INTRADERMA PER PROTOCOL PRN PRN Reason: IV Start Last Admin: 02/07/20 08:28 Dose: 0.1 ml Documented by: Lorazepam (Lorazepam 2 Mg/Ml Inj) 1 mg IV Q2HR PRN PRN Reason: CIWA 8 or 9 Last Admin: 02/11/20 08:32 Dose: 1 mg Documented by: Lorazepam (Lorazepam 2 Mg/Ml Inj) 1 mg IV Q1HR PRN PRN Reason: CIWA 10 to 15 Last Admin: 02/11/20 05:53 Dose: 1 mg Documented by: Metoclopramide HCl (Metoclopramide 5 Mg/Ml 2 Ml Vial) 10 mg IVP Q6HR PRN PRN Reason: Nausea and Vomiting Metoprolol Succinate (Metoprolol Succinate (Er) 25 Mg Tab.Er.24h) 25 mg PO DAILY [facility] Last Admin: 02/11/20 08:32 Dose: 25 mg Documented by: Multivitamins (Multivitamins, Thera 1 Each Tab) 1 each PO DAILY [facility] Last Admin: 02/11/20 08:33 Dose: 1 each Documented by: Naloxone HCl (Naloxone 0.4 Mg/Ml 1 Ml Vial) 0.2 mg IV Q2M PRN PRN Reason: Opioid Reversal Nicotine (Nicotine 21mg/24hr Patch) 1 patch TRANSDERM DAILY [facility] Last Admin: 02/11/20 08:32 Dose: 1 patch Documented by: Nicotine Polacrilex (Nicotine Polacrilex 2 Mg Gum) 2 mg BUCCAL Q4HR PRN PRN Reason: Nicotine Cravings Ondansetron HCl (Ondansetron 4 Mg/2 Ml Vial) 4 mg IVP Q8HR PRN PRN Reason: Nausea And Vomiting Pantoprazole Sodium (Pantoprazole 40 Mg/10 Ml Vial) 40 mg IVP BID [facility] Last Admin: 02/11/20 21:16 Dose: 40 mg Documented by: Thiamine HCl (Thiamine 100 Mg Tab) 100 mg PO BID-W/MEALS [facility] Last Admin: 02/11/20 15:21 Dose: 100 mg Documented by: Objective - Vital Signs Vital signs: Vital Signs Temp 97.9 F 02/11/20 07:00 Pulse 110 H 02/11/20 08:00 Resp 16 02/11/20 08:00 BP 90/65 02/11/20 07:00 Pulse Ox 95 02/11/20 07:00 Intake & Output 02/10/20 02/11/20 02/11/20 18:59 06:59 18:59 Intake Total 83.153 157.731 Output Total 200 600 Balance -116.847 -442.269 Intake: Intake, IV Titration 83.153 157.731 Amount Heparin Sod,Pork in 0.45% 83.153 157.731 NaCl 25,000 unit In 0.45 % NaCl 1 250ml.bag @ 18 UNITS/KG/HR 10.44 mls/hr IV .[id number] [facility] Rx#: [id number] Output: Urine 200 600 Other: Voiding Method Indwelling Catheter Indwelling Catheter Indwelling Catheter # Bowel Movements 1 - Exam Physical examination: GENERAL: Pt is confused and rene up on calling his name . Temporal wasting is noted EYES: Pupils equal. Conjunctiva normal. HEENT: External appearance of nose and ears normal, oral cavity grossly normal. NECK: JVD not raised; masses not palpable. HEART: First and second heart sounds are normal; LUNGS: Respiratory rate normal; decreased breath sounds. ABDOMEN: Soft, mild tenderness, Dressing over the incision clean and dry. Extremities: Left lower extremity more swollen than the right extremity. NEUROLOGICAL: Patient is confused but Moving all 4 extremities - Labs CBC & Chem 7: 02/11/20 20:05 02/11/20 02:27 Labs: Abnormal Lab Results - Last 24 Hours (Table) 02/10/20 02/11/20 02/11/20 Range/Units 20:18 02:27 02:27 WBC 12.7 H (3.8-10.6) k/uL RBC 2.96 L (4.30-5.90) m/uL Hgb 10.4 L (13.0-17.5) gm/dL Hct 32.2 L (39.0-53.0) % MCV 108.9 H (80.0-100.0) fL MCH 35.1 H (25.0-35.0) pg Neutrophils # 8.7 H (1.3-7.7) k/uL Monocytes # 1.6 H (0-1.0) k/uL Macrocytosis Marked A Retic Count 5.4 H (0.5-2.0) % APTT 33.5 H (22.0-30.0) sec Sodium 131 L (135-145) mmol/L Creatinine 0.4 L (0.6-1.5) mg/dL BUN/Creatinine Ratio 40.00 H (12.00-20.00) Ratio Glucose 112 H (70-110) mg/dL Calcium 7.4 L (8.7-10.3) mg/dL Iron 52 L (65-175) ug/dL TIBC 136 L (228-460) ug/dL Ferritin 363.3 H (22.0-322.0) ng/mL Lactate Dehydrogenase 260 H (120-246) U/L Total Protein 3.9 L (6.2-8.2) g/dL Albumin 1.90 L (3.80-4.90) g/dL Albumin/Globulin Ratio 0.95 L (1.60-3.17) g/dL 02/11/20 02/11/20 02/11/20 Range/Units 02:27 05:16 05:16 WBC 11.7 H (3.8-10.6) k/uL RBC 2.81 L (4.30-5.90) m/uL Hgb 9.9 L (13.0-17.5) gm/dL Hct 30.3 L (39.0-53.0) % MCV 107.5 H (80.0-100.0) fL MCH (25.0-35.0) pg Neutrophils # 8.6 H (1.3-7.7) k/uL Monocytes # 1.3 H (0-1.0) k/uL Macrocytosis Retic Count (0.5-2.0) % APTT >200.0 H* 39.7 H (22.0-30.0) sec Sodium (135-145) mmol/L Creatinine (0.6-1.5) mg/dL BUN/Creatinine Ratio (12.00-20.00) Ratio Glucose (70-110) mg/dL Calcium (8.7-10.3) mg/dL Iron (65-175) ug/dL TIBC (228-460) ug/dL Ferritin (22.0-322.0) ng/mL Lactate Dehydrogenase (120-246) U/L Total Protein (6.2-8.2) g/dL Albumin (3.80-4.90) g/dL Albumin/Globulin Ratio (1.60-3.17) g/dL Assessment and Plan Assessment: Assessment: -Status post low anterior resection, for diverticulitis complication - Acute GI bleed - Tachycardia - Acute Left lower extremity DVT - Delirium Tremens -Chronic nicotine dependence patient cigarette smoker -Clinical emphysema, asymptomatic -Alcoholic hepatitis -Mild hyponatremia -Macrocytic anemia. Rule out B12 deficiency Plan: Patient had a large dark-colored bowel movement. His blood pressure dropped to 90 / 65, to give 500 cc of normal saline bolus. His heparin drip has been held. Patient is started on IV Protonix. We will repeat CBC, and transfuse if hemoglobin drops to below 7. Discussed in detail with Dr. Stewart, who agrees to hold the heparin for now due to active GI bleed. As the patient has tachycardia, cardiology was consulted,. Due to his history of recent left lower extremity DVT, CT angio of the chest was obtained that was negative for central pulmonary embolism. Patient is confused, has tachycardia could be due to delirium tremens, will continue with CIWA scale. Blood cultures have been obtained. We will also obtain ID consult. Patient's family members have been informed about the decline in patient's condition. Patient might need vascular surgery consult, for possible IVC filter placement. Patient might benefit from endoscopy, if he continues to bleed to evaluate for GI source of bleeding. Overall prognosis is guarded. Thank you Dr. Lee.
[2020-02-12] MEDS: PIPERACILLIN-TAZOBACTAM 3.375 GM in SODIUM CHLORIDE 0.9% 100 ML IVPB SCH ×4 (00:42→23:28)
[2020-02-12] MEDS: D5-0.45% NACL WITH KCL 20MEQ/L 1,000 ML IV SCH ×2 (02:29→18:56)
[2020-02-12] MEDS: LACTATED RINGERS 1,000 ML IV SCH (05:39)
[2020-02-12 08:14] LABS: HCT 26.7 % (39.0-53.0); MCH 36.4 pg (25.0-35.0); MCHC 33.9 g/dL (31.0-37.0); MCV 107.4 fL (80.0-100.0); Macrocytosis Moderate; Mean Platelet Volume 8.9; Platelet Count 306 k/uL (150-450); RBC 2.49 m/uL (4.30-5.90); RDW 13.6 % (11.5-15.5)
[2020-02-12] MEDS: PANTOPRAZOLE 40 MG/10 ML VIAL IVP SCH ×2 (08:37→21:38)
[2020-02-12] MEDS: NICOTINE 21MG/24HR PATCH TRANSDERM SCH (08:48)
[2020-02-12] MEDS: THIAMINE 100 MG TAB PO SCH ×4 (09:14→19:03)
[2020-02-12] MEDS: METOPROLOL SUCCINATE (ER) 25 MG TAB.ER.24H PO SCH (09:14)
[2020-02-12] MEDS: BACLOFEN 10 MG TAB PO SCH ×2 (09:14→21:39)
[2020-02-12] MEDS: MULTIVITAMINS, THERA 1 EACH TAB PO SCH (09:14)
[2020-02-12 09:23] LABS: Band Neutrophils % 1 %; Lymphocytes # (M) 0.91 k/uL (1.0-4.8); Monocytes # (M) 2.47 k/uL (0-1.0); Neutrophils % (M) 73 %; Nucleated Red Blood Cells 0 /100 WBC (0-0); Total Cells Counted 100
[2020-02-12 10:55] LABS: % Iron Saturation 14.58 (15.00-50.00); African American GFR (CKD) 133.7 (60.0-200.0); Anion Gap 5.8 mmol/L (4.00-12.00); Calcium 7.3 mg/dL (8.7-10.3); Carbon Dioxide 25.2 mmol/L (21.6-31.8); Ferritin 504.9 ng/mL (22.0-322.0); Magnesium 1.4 mg/dL (1.5-2.4); Non-African American GFR(CKD) 115.3 (60.0-200.0); Potassium 3.5 mmol/L (3.5-5.5)
[2020-02-12 11:15] LABS: Protein, Total 3.9 g/dL (6.2-8.2)
--- NOTE | 2020-02-12 11:34 | CONS ---
CONSULTATION DATE OF SERVICE: 02/11/2020. REASON FOR CONSULTATION: Sepsis. HISTORY OF PRESENT ILLNESS: The patient is a 64-year-old male who has been electively admitted to the hospital on 02/07/2020 for because of recurrent sigmoid diverticulitis. The patient did have the procedure completed the same day on 02/07/2020 with infection and partial omentectomy. The patient on admission to the hospital was afebrile and no fever has been recorded. The patient did have a white count of 11.7 on admission with white count up to 16.5 today and the patient noted to be slightly tachycardic. The reflects for possible sepsis. Blood culture has been obtained and this patient was already started on Zosyn on 02/06, which has been continued. Infectious Disease was consulted with concern for possible sepsis. The patient currently noticed to be withdrawing from alcohol and has received sedated medication and the patient was unable to provide any history at the time of evaluation. Did not answer any question. The patient's abdominal dressing was changed by the nursing staff, did mention some serosanguineous drainage from middle part of the incision. The patient also have lower extremity Doppler was evidence of acute DVT involving the popliteal vein for which Hematology Oncology has been consulted. Most of the information has been obtained from review of the chart, talking to the nursing staff as the patient is unable to provide any history. The patient also have a CT angiogram of the chest with evidence of abdominal ascites, small bilateral effusion, no signs of pulmonary embolism, distended stomach with distended fluid-filled esophagus. REVIEW OF SYSTEMS: Positive points have been mentioned in HPI. Complete review could not be obtained because the patient's mental status. PAST MEDICAL HISTORY: Significant for varicose veins, with likely diarrhea and diverticulitis. PAST SURGICAL HISTORY: Appendectomy and knee surgery. SOCIAL HISTORY: Current everyday smoker, daily drinks. HISTORY OF DRUG USE FAMILY HISTORY: No family history, though the patient was adopted. ALLERGIES: No known drug allergies. MEDICATIONS: Currently the patient is on Zosyn 3.375 g q.8 hours and Protonix, Zofran, Nicotine patch, Narcan, Theragran, Toprol-XL, Reglan, and Ativan, Cepacol, Baclofen. PHYSICAL EXAMINATION: Blood pressure is 107/74 with a pulse of 99, temperature 96.9. He is 94% on 3 L nasal cannula. General description is a middle-aged male, lying in bed in no distress. No tachypnea or accessory muscle for respiration use. HEENT: Examination shows slight pallor. No scleral icterus. Oral mucosa membrane is dry. NECK: Trachea central, no thyromegaly. LUNGS: Unlabored breathing with decreased breath sounds. HEART: S1, S2. Regular rate and rhythm. ABDOMEN: Soft, midline incision is currently intact with some drainage. Mild distention. No redness. No significant tenderness on palpation. EXTREMITIES: No edema of the feet. SKIN: Examination no rash or mass palpable NEUROLOGICAL: The patient is lethargic. Orientation could not be determined. LABS: Hemoglobin is 10.1, white count 16.5, BUN of 16, creatinine 0.4. Electrolytes normal. Liver enzymes are normal. LDH of 260. CT angiogram did not show any PE or any pneumonia. DIAGNOSTIC IMPRESSION: Patient with elevated white count which is likely multifactorial in this patient with elective admission to the hospital for low anterior resection, status post completion of the same with concern for possible DTs in this patient who did have a heavy history of drinking as well as smoking. The patient did have mild abdominal distention, some serous drainage which has been attributed to possible ascites and need to monitor closely. PLAN: 1. Zosyn 3.375 g q.8 hours. 2. Will wait for the blood cultures to be finalized. 3. If any worsening of the white count or more drainage from the abdominal incision, will recommend CT of abdomen and pelvis to rule out any intraabdominal source. 4. Will follow on clinical condition and culture to further adjust medication if needed. Thank you for this consultation. Will follow this patient along with you. MMODL / IJN: [id number] /
[2020-02-12] MEDS ORDERED: Magnesium Replacement Protocol 1 EACH MISC MISCELLANE PRN (11:43)
[2020-02-12] MEDS ORDERED: HEPARIN SODIUM,PORCINE 5,000 UNIT/ML 1 ML VIAL IV PRN (11:58)
[2020-02-12] MEDS ORDERED: HEPARIN SODIUM,PORCINE 5,000 UNIT/ML 1 ML VIAL IV ONE (11:58)
[2020-02-12 12:14] LABS: Free Kappa Lt Chain Qnt, Serum 2.83 mg/dL (0.33-1.94)
[2020-02-12 12:28] LABS: INR 1.2 (<1.2)
[2020-02-12 12:29] LABS: Partial Thromboplastin Time 23.5 sec (22.0-30.0); Prothrombin Time 11.8 sec (9.0-12.0)
[2020-02-12 12:40] LABS: Basophils % (A) 0 %; Eosinophils # (A) 0.1 k/uL (0-0.7); Eosinophils % (A) 1 %; HCT 29.3 % (39.0-53.0); HGB 9.8 gm/dL (13.0-17.5); Lymphocytes # (A) 2.2 k/uL (1.0-4.8); Lymphocytes % (A) 15 %; MCH 35.9 pg (25.0-35.0); MCHC 33.3 g/dL (31.0-37.0); MCV 107.8 fL (80.0-100.0); Macrocytosis Moderate; Mean Platelet Volume 8.4; Monocytes # (A) 1.9 k/uL (0-1.0); Monocytes % (A) 13 %; Neutrophils # (A) 9.8 k/uL (1.3-7.7); Neutrophils % (A) 67 %; Platelet Count 318 k/uL (150-450); RBC 2.72 m/uL (4.30-5.90); RDW 13.7 % (11.5-15.5); WBC 14.5 k/uL (3.8-10.6)
--- NOTE | 2020-02-12 13:16 | XR ---
EXAMINATION TYPE: XR chest 2V DATE OF EXAM: 02/12/2020 COMPARISON: 02/11/2020 TECHNIQUE: PA and lateral views submitted. HISTORY: Follow up from VQ scan FINDINGS: Bilateral pleural effusions and basilar consolidation. Chronic rib deformities are seen. Atherosclero tic change aorta. Heart size normal. No pneumothorax. IMPRESSION: 1. Right basilar and right perihilar infiltrate correlate for pneumonia versus CHF.
--- NOTE | 2020-02-12 13:51 | NM ---
EXAMINATION TYPE: NM pul vent and perfuse DATE OF EXAM: 02/12/2020 COMPARISON: Chest x-ray 02/12/2020 HISTORY: Shortness of breath TECHNIQUE: Utilizing inhalation of 68.1 mCi Tc 99m DTPA aerosol and intravenous injection of 4.9 mCi of Tc 99m MAA, ventilation and perfusion images are acquired post injection in multiple projections. FINDINGS: There are multiple matched defects involving both upper lobes. No mismatch defects are seen. There is some central clumping of radiotracer on ventilation images likely related to COPD. Triple match is n oted involving the right lower lobe. IMPRESSION: Intermediate probability for pulmonary embolism
--- NOTE | 2020-02-12 14:06 | CT ---
EXAMINATION TYPE: CT brain wo con DATE OF EXAM: 02/12/2020 COMPARISON: None HISTORY: 64-year-old male Confusion TECHNIQUE: Examination was done in axial plane without intravenous contrast. Coronal and sagittal r econstructions performed. CT DLP: 1126.4 mGycm Automated exposure control for dose reduction was used. FINDINGS: There is no evidence of acute intracranial hemorrhage, acute ischemic changes, mass, mass-effect, or extra-axial fluid collection. There is no effacement of cerebral sulci or basal subarachnoid cister ns. There is no hydrocephalus. There is no midline shift. Gaffney-white matter distinction is preserv ed. Paranasal sinuses and mastoid air cells well pneumatized. Leftward nasal septal deviation. Orbits and globes are intact. Mild generalized volume loss. IMPRESSION: Mild generalized atrophy. No acute intracranial abnormality seen.
--- NOTE | 2020-02-12 14:22 | P.PN ---
Subjective Progress Note Date: 02/12/20 CHIEF COMPLAINT: Diverticulitis HISTORY OF PRESENT ILLNESS: Patient is status post lower anterior resection, takedown of splenic flexure and partial omentectomy. Patient started having black stools yesterday. IV heparin was initially discontinued. Patient has been evaluated by Dr. wilks and recommended that the IV heparin can be restarted. Hemoglobin is 10.1. Afebrile. Patient is still slightly confused but more awake than yesterday. Patient did have some serosanguineous type drainage from his incision site which is likely ascites. Dressing has been changed by nursing staff. PHYSICAL EXAM: VITAL SIGNS: Reviewed. GENERAL: Well-developed in no acute distress. HEENT: No sclera icterus. Extraocular movements grossly intact. Moist buccal mucosa. Head is atraumatic, normocephalic. ABDOMEN: Softer than yesterday. NEUROLOGIC: Obtunded ASSESSMENT: 1. Diverticulitis status post lower anterior resection, takedown of splenic flexure and partial omentectomy 2. Alcohol abuse with alcohol withdrawal 3. New left leg DVT anticoagulated with IV heparin. Hematology following 4. Possible ileus PLAN: -Patient is nothing by mouth -Continue to monitor CBC -Continue IV fluids -Continue CIWA protocol with thiamine and multivitamin for alcohol abuse -GI prophylaxis Pepcid and subcu heparin for DVT prophylaxis Physician Instructional Technology Teacher note has been reviewed by physician. Signing provider agrees with the documented findings, assessment, and plan of care. Objective - Vital Signs Vital signs: Vital Signs Temp 97.9 F 02/12/20 07:00 Pulse 123 H 02/12/20 07:00 Resp 18 02/12/20 07:00 BP 110/73 02/12/20 07:00 Pulse Ox 96 02/12/20 07:00 Intake & Output 02/11/20 02/12/20 02/12/20 18:59 06:59 18:59 Intake Total 759.487 376.56 Output Total 100 600 Balance 659.487 -223.44 Intake: Intake, IV Titration 584.487 76.56 Amount D5-0.45% NaCl with KCl 500 20Meq/l 1,000 ml @ 125 mls/hr IV .Q8H [facility] Rx#: [id number] Heparin Sod,Pork in 0.45% 84.487 76.56 NaCl 25,000 unit In 0.45 % NaCl 1 250ml.bag @ 18 UNITS/KG/HR 10.44 mls/hr IV .[id number] [facility] Rx#: [id number] Oral 175 300 Output: Urine 100 600 Other: Voiding Method Indwelling Catheter Indwelling Catheter Indwelling Catheter # Bowel Movements 1 3 1 - Labs CBC & Chem 7: 02/12/20 12:03 02/12/20 06:55 Labs: Abnormal Lab Results - Last 24 Hours (Table) 02/11/20 02/11/20 02/12/20 Range/Units 19:41 20:05 06:55 WBC 16.5 H (3.8-10.6) k/uL RBC 2.87 L (4.30-5.90) m/uL Hgb 10.1 L (13.0-17.5) gm/dL Hct 30.5 L (39.0-53.0) % MCV 106.4 H (80.0-100.0) fL MCH 35.2 H (25.0-35.0) pg Neutrophils # (1.3-7.7) k/uL Neutrophils # (Manual) 10.07 H (1.3-7.7) k/uL Lymphocytes # (Manual) (1.0-4.8) k/uL Monocytes # (0-1.0) k/uL Monocytes # (Manual) 2.97 H (0-1.0) k/uL Retic Count (0.5-2.0) % INR (<1.2) Creatinine (0.6-1.5) mg/dL BUN/Creatinine Ratio (12.00-20.00) Ratio POC Glucose (mg/dL) 128 H (75-99) mg/dL Calcium (8.7-10.3) mg/dL Magnesium (1.5-2.4) mg/dL Iron (65-175) ug/dL TIBC (228-460) ug/dL % Saturation (15.00-50.00) Ferritin (22.0-322.0) ng/mL Total Protein (PEP) 3.9 L (6.2-8.2) g/dL Free Langford LC, Quant 2.83 H (0.33-1.94) mg/dL Free Lambda LC, Quant 3.96 H (0.57-2.63) mg/dL 11/10/20 11/10/20 11/10/20 Range/Units 06:55 06:55 12:03 WBC 13.0 H (3.8-10.6) k/uL RBC 2.49 L (4.30-5.90) m/uL Hgb 9.0 L (13.0-17.5) gm/dL Hct 26.7 L (39.0-53.0) % MCV 107.4 H (80.0-100.0) fL MCH 36.4 H (25.0-35.0) pg Neutrophils # (1.3-7.7) k/uL Neutrophils # (Manual) 9.60 H (1.3-7.7) k/uL Lymphocytes # (Manual) 0.91 L (1.0-4.8) k/uL Monocytes # (0-1.0) k/uL Monocytes # (Manual) 2.47 H (0-1.0) k/uL Retic Count 8.0 H (0.5-2.0) % INR 1.2 H (<1.2) Creatinine 0.5 L (0.6-1.5) mg/dL BUN/Creatinine Ratio 50.00 H (12.00-20.00) Ratio POC Glucose (mg/dL) (75-99) mg/dL Calcium 7.3 L (8.7-10.3) mg/dL Magnesium 1.4 L (1.5-2.4) mg/dL Iron 21 L (65-175) ug/dL TIBC 144 L (228-460) ug/dL % Saturation 14.58 L (15.00-50.00) Ferritin 504.9 H (22.0-322.0) ng/mL Total Protein (PEP) (6.2-8.2) g/dL Free Langford LC, Quant (0.33-1.94) mg/dL Free Lambda LC, Quant (0.57-2.63) mg/dL 02/12/20 Range/Units 12:03 WBC 14.5 H (3.8-10.6) k/uL RBC 2.72 L (4.30-5.90) m/uL Hgb 9.8 L (13.0-17.5) gm/dL Hct 29.3 L (39.0-53.0) % MCV 107.8 H (80.0-100.0) fL MCH 35.9 H (25.0-35.0) pg Neutrophils # 9.8 H (1.3-7.7) k/uL Neutrophils # (Manual) (1.3-7.7) k/uL Lymphocytes # (Manual) (1.0-4.8) k/uL Monocytes # 1.9 H (0-1.0) k/uL Monocytes # (Manual) (0-1.0) k/uL Retic Count (0.5-2.0) % INR (<1.2) Creatinine (0.6-1.5) mg/dL BUN/Creatinine Ratio (12.00-20.00) Ratio POC Glucose (mg/dL) (75-99) mg/dL Calcium (8.7-10.3) mg/dL Magnesium (1.5-2.4) mg/dL Iron (65-175) ug/dL TIBC (228-460) ug/dL % Saturation (15.00-50.00) Ferritin (22.0-322.0) ng/mL Total Protein (PEP) (6.2-8.2) g/dL Free Langford LC, Quant (0.33-1.94) mg/dL Free Lambda LC, Quant (0.57-2.63) mg/dL
[2020-02-12] MEDS: HEPARIN SOD,PORK IN 0.45% NACL 25,000 UNIT in 0.45% NACL 1 250ML.BAG IV SCH (15:02)
[2020-02-12] MEDS: MAGNESIUM SULFATE-D5W PMX 1 GM in DEXTROSE/WATER 1 100ML.BAG IVPB SCH ×3 (17:07→21:37)
--- NOTE | 2020-02-12 17:18 | P.CNNES ---
History of Present Illness Consult date: 02/12/20 Requesting physician: Dago E Sheet Reason for Consult: Confusion History of Present Illness: Patient is a 64-year-old male was admitted to the hospital for elective partial omentectomy for diverticulitis on 02/07/2020. Patient has history of chronic alcohol abuse and nicotine dependence. Patient's postsurgical course was complicated by alcohol withdrawal. He was also found to have left ankle swelling and pain and was diagnosed with left popliteal DVT. Patient was placed on IV heparin and a CTA of the chest was negative for pulmonary emboli, although it was suboptimal study due to issues with the bolus of the contrast. Patient has been noted to be confused, with no improvement mental functioning. This pro mpted neurology consultation. Patient had a 2-D echo performed yesterday, which revealed left ventricular size is normal, mild concentric LVH, EF is 55-60%. Mild MR. Patient's blood test shows WBC 14.5 hemoglobin 9.8, elevated MCV 107.8, platelets are 318. PT/PTT normal, Chem-7 with normal renal functions. Ammonia is normal, B12 708, folate is mildly low 4.6, protein low 3.9. Patient tells me that he drinks "a lot", did not quantify. Patient continues to have polysubstances in his mind at this time. He states spontaneously "I can't do it tonight". When asked what he meant, referred to smoking. Later he states "I'll do some weed". Later he stated "I can't do alcohol". Review of Systems Denies headache ROS unobtainable: due to mental status Eyes: left as per HPI Past Medical History Past Medical History: No Reported History Additional Past Medical History / Comment(s): varicose veins, vitiligo, Diarrhea, diverticulitis. History of Any Multi-Drug Resistant Organisms: None Reported Past Surgical History: Appendectomy, Orthopedic Surgery Additional Past Surgical History / Comment(s): knee surgery(fx), 03-23-16 total lt hip (fx) Past Anesthesia/Blood Transfusion Reactions: No Reported Reaction Additional Past Anesthesia/Blood Transfusion Reaction / Comment(s): unknown family hx-adopted Past Psychological History: No Psychological Hx Reported Smoking Status: Current every day smoker Past Alcohol Use History: Daily Additional Past Alcohol Use History / Comment(s): STARTED SMOKING AT AGE 22, SMOKES 1/2 PPD. DRINKS 2-3 BEERS/DAY Past Drug Use History: None Reported - Past Family History Mother Family Medical History: Unable to Obtain Additional Family Medical History / Comment(s): PT WAS ADOPTED Father Family Medical History: Unable to Obtain Additional Family Medical History / Comment(s): PT WAS ADOPTED Medications and Allergies Home Medications Medication Instructions Recorded Confirmed Type Baclofen [Lioresal] 20 mg PO BID 02/04/20 02/07/20 History Ciprofloxacin HCl [Cipro] 500 mg PO BID 02/04/20 02/07/20 History Metoprolol Succinate [Toprol XL] 25 mg PO DAILY 02/04/20 02/07/20 History metroNIDAZOLE [Flagyl] 500 mg PO TID 02/04/20 02/07/20 History Allergies Allergy/AdvReac Type Severity Reaction Status Date / Time No Known Allergies Allergy Verified 02/07/20 08:20 Physical Examination - Vital Signs Vital Signs: Vital Signs Temp Pulse Resp BP Pulse Ox 02/12/20 14:40 97.5 F L 124 H 18 111/73 95 02/12/20 07:00 97.9 F 123 H 18 110/73 96 02/12/20 01:00 98.6 F 121 H 24 112/75 95 02/11/20 18:55 99.3 F 135 H 20 98/70 02/11/20 16:05 99 16 Intake and Output 02/12/20 02/12/20 02/12/20 06:59 14:59 22:59 Intake Total 100 Output Total 600 Balance -500 Intake: Oral 100 Output: Urine 600 Other: Voiding Method Indwelling Catheter # Bowel Movements 3 1 Weight 58 kg On examination patient is an elderly male, laying comfortably in the bed. He appears somewhat cachectic, confused, would not answer to questions. Patient could not tell what month or year is it, or who is the president. Patient speaks short sentences, but has no aphasia or dysarthria. Did not cooperate and did not want to be examined. His pupils are round and reactive to light, visual arias could not be tested but he does blink to visual threat. Extraocular muscles are intact. Face is symmetric, tongue protrudes the midline. Hearing appears normal. Patient did not cooperate for shoulder shrug. On muscle strength testing patient appears to be weaker in the arms as compared to the legs. He is at least 4+ in the legs, but 4 to 4- in the arms. Reflexes are diminished in the arms, 1+ to 2 in the legs, and plantars are up versus withdrawal. Tone is equal bilaterally. Sensory to painful stimulus is equal for withdrawal. Patient did not cooperate for cerebellar functions or gait. No obvious bruit S1 and S2 audible. No peripheral edema. Chest is clear. Results - Laboratory Findings CBC and BMP: 02/12/20 12:03 02/12/20 06:55 Abnormal Lab Findings: Abnormal Labs 02/08/20 02/08/20 02/09/20 06:36 06:36 05:50 WBC 17.5 H RBC 3.25 L Hgb 11.6 L Hct 36.7 L MCV 112.8 H MCH 35.8 H Neutrophils # 13.6 H Neutrophils # (Manual) Lymphocytes # (Manual) Monocytes # 1.4 H Monocytes # (Manual) Macrocytosis Marked A Retic Count INR APTT Sodium 132 L Potassium Carbon Dioxide 20 L BUN 4 L Creatinine 0.62 L BUN/Creatinine Ratio Glucose 139 H POC Glucose (mg/dL) Calcium 7.7 L Magnesium Iron TIBC % Saturation Ferritin Lactate Dehydrogenase Total Protein Total Protein (PEP) Albumin Albumin/Globulin Ratio Vitamin B12 1038.0 H Free Arco LC, Quant Free Lambda LC, Quant 02/09/20 02/09/20 02/10/20 21:07 21:07 02:34 WBC 11.7 H 11.9 H RBC 2.98 L 3.11 L Hgb 10.8 L 10.9 L Hct 32.7 L 34.3 L MCV 109.8 H 110.3 H MCH 36.3 H Neutrophils # 9.5 H 9.9 H Neutrophils # (Manual) Lymphocytes # (Manual) Monocytes # Monocytes # (Manual) Macrocytosis Marked A Marked A Retic Count INR 1.2 H APTT Sodium Potassium Carbon Dioxide BUN Creatinine BUN/Creatinine Ratio Glucose POC Glucose (mg/dL) Calcium Magnesium Iron TIBC % Saturation Ferritin Lactate Dehydrogenase Total Protein Total Protein (PEP) Albumin Albumin/Globulin Ratio Vitamin B12 Free Arco LC, Quant Free Lambda LC, Quant 02/10/20 02/10/20 02/10/20 02:34 02:34 05:25 WBC RBC Hgb Hct MCV MCH Neutrophils # Neutrophils # (Manual) Lymphocytes # (Manual) Monocytes # Monocytes # (Manual) Macrocytosis Retic Count INR APTT 190.4 H* 35.3 H Sodium 132 L Potassium 3.4 L Carbon Dioxide BUN 7.0 L Creatinine 0.3 L BUN/Creatinine Ratio 23.33 H Glucose POC Glucose (mg/dL) Calcium 7.3 L Magnesium Iron TIBC % Saturation Ferritin Lactate Dehydrogenase Total Protein Total Protein (PEP) Albumin Albumin/Globulin Ratio Vitamin B12 Free Arco LC, Quant Free Lambda LC, Quant 02/10/20 02/10/20 02/11/20 11:30 20:18 02:27 WBC 12.7 H RBC 2.96 L Hgb 10.4 L Hct 32.2 L MCV 108.9 H MCH 35.1 H Neutrophils # 8.7 H Neutrophils # (Manual) Lymphocytes # (Manual) Monocytes # 1.6 H Monocytes # (Manual) Macrocytosis Marked A Retic Count 5.4 H INR APTT 98.9 H 33.5 H Sodium Potassium Carbon Dioxide BUN Creatinine BUN/Creatinine Ratio Glucose POC Glucose (mg/dL) Calcium Magnesium Iron TIBC % Saturation Ferritin Lactate Dehydrogenase Total Protein Total Protein (PEP) Albumin Albumin/Globulin Ratio Vitamin B12 Free Arco LC, Quant Free Lambda LC, Quant 02/11/20 02/11/20 02/11/20 02:27 02:27 05:16 WBC RBC Hgb Hct MCV MCH Neutrophils # Neutrophils # (Manual) Lymphocytes # (Manual) Monocytes # Monocytes # (Manual) Macrocytosis Retic Count INR APTT >200.0 H* 39.7 H Sodium 131 L Potassium Carbon Dioxide BUN Creatinine 0.4 L BUN/Creatinine Ratio 40.00 H Glucose 112 H POC Glucose (mg/dL) Calcium 7.4 L Magnesium Iron 52 L TIBC 136 L % Saturation Ferritin 363.3 H Lactate Dehydrogenase 260 H Total Protein 3.9 L Total Protein (PEP) Albumin 1.90 L Albumin/Globulin Ratio 0.95 L Vitamin B12 Free Arco LC, Quant Free Lambda LC, Quant 02/11/20 02/11/20 02/11/20 05:16 12:37 19:41 WBC 11.7 H RBC 2.81 L Hgb 9.9 L Hct 30.3 L MCV 107.5 H MCH Neutrophils # 8.6 H Neutrophils # (Manual) Lymphocytes # (Manual) Monocytes # 1.3 H Monocytes # (Manual) Macrocytosis Retic Count INR APTT 51.9 H Sodium Potassium Carbon Dioxide BUN Creatinine BUN/Creatinine Ratio Glucose POC Glucose (mg/dL) 128 H Calcium Magnesium Iron TIBC % Saturation Ferritin Lactate Dehydrogenase Total Protein Total Protein (PEP) Albumin Albumin/Globulin Ratio Vitamin B12 Free Arco LC, Quant Free Lambda LC, Quant 02/11/20 02/12/20 02/12/20 20:05 06:55 06:55 WBC 16.5 H 13.0 H RBC 2.87 L 2.49 L Hgb 10.1 L 9.0 L Hct 30.5 L 26.7 L MCV 106.4 H 107.4 H MCH 35.2 H 36.4 H Neutrophils # Neutrophils # (Manual) 10.07 H 9.60 H Lymphocytes # (Manual) 0.91 L Monocytes # Monocytes # (Manual) 2.97 H 2.47 H Macrocytosis Retic Count 8.0 H INR APTT Sodium Potassium Carbon Dioxide BUN Creatinine BUN/Creatinine Ratio Glucose POC Glucose (mg/dL) Calcium Magnesium Iron TIBC % Saturation Ferritin Lactate Dehydrogenase Total Protein Total Protein (PEP) 3.9 L Albumin Albumin/Globulin Ratio Vitamin B12 Free Arco LC, Quant 2.83 H Free Lambda LC, Quant 3.96 H 02/12/20 02/12/20 02/12/20 06:55 12:03 12:03 WBC 14.5 H RBC 2.72 L Hgb 9.8 L Hct 29.3 L MCV 107.8 H MCH 35.9 H Neutrophils # 9.8 H Neutrophils # (Manual) Lymphocytes # (Manual) Monocytes # 1.9 H Monocytes # (Manual) Macrocytosis Retic Count INR 1.2 H APTT Sodium Potassium Carbon Dioxide BUN Creatinine 0.5 L BUN/Creatinine Ratio 50.00 H Glucose POC Glucose (mg/dL) Calcium 7.3 L Magnesium 1.4 L Iron 21 L TIBC 144 L % Saturation 14.58 L Ferritin 504.9 H Lactate Dehydrogenase Total Protein Total Protein (PEP) Albumin Albumin/Globulin Ratio Vitamin B12 Free Arco LC, Quant Free Lambda LC, Quant Assessment and Plan Assessment: * Altered mental status, likely due to alcohol withdrawal syndrome. * History of polysubstance abuse including alcohol, tobacco and perhaps marijuana. * Diverticulitis status post lower anterior resection, takedown of splenic flexure and partial omentectomy * Acute DVT left lower extremity, on IV heparin. * Folate deficiency Plan: * Patient had withdrawals from chronic alcoholism. Probably will take time to get over the withdrawals. Examination is nonfocal. * CT head showed mild generalized atrophy. No acute intracranial process. * Start folic acid 1 mg daily for folic acid deficiency. * Continue thiamine and multivitamins. * PT and OT when able to cooperate. * Neurology will follow.
[2020-02-12] MEDS: LORazepam 2 MG/ML INJ IV PRN (18:23)
[2020-02-12] MEDS: FOLIC ACID 1 MG TAB PO SCH ×2 (19:01→19:04)
--- NOTE | 2020-02-12 20:56 | P.PN ---
Subjective From records Mr. Carter is a 64-year-old male admitted for complications of diverticulitis. CAT scan of the abdomen January 08 showed possible stricture. Patient underwent low anterior resection on February 06. He is postop day 5. Patient today is confused and could not provide information, alternatives explained to him his medical problem and he asked me "can I do the blood test at back home" when I asked him where he is back home he answers "[place]" he thinks he is in [place]. Also he thinks he is not however when I told him who is Sumaya Carter he remembers that she is his and he agrees for me to talk to her. As per patient has been going for acute diverticulitis also he was complaining from left ankle swelling for 2 weeks prior to hospitalization and they did not know why. Patient states that he drinks alcohol daily, and for the last 1 or 2 weeks. To admission to the hospital his been drinking 2 beers a day with occasional liquor. I discussed her medical problems with the patient including but not limited to his confusion, left leg clots and the need for heparin drip for anticoagulation, risks including but not limited to intracranial bleed, GI bleeds are explained for the patient and she verbalized acceptance. On 02/10/2020 - the patient's left lower extremity was more swollen than the right extremity, so her left lower extremity Doppler was obtained yesterday. The patient was found to have popliteal Isr[place] DVT. Patient's epidural has been discontinued. Hematology has been consulted regarding anticoagulation choice. Dr. Stewart suggested that the patient be started on heparin for his DVT which was initiated yesterday. As per the nursing staff report no acute events overnight. Patient does confused while sleeping comfortably in bed appears to be in no acute distress. Patient denies having any chest pain or palpitations. He complains of abdominal soreness. Patient did not have a bowel movement. He has a Lemus's catheter in place. Due to patient's alcohol history he is still on the CIWA scale, but not requiring Ativan currently. On reviewing the vitals patient's temperature is 98.4, heart rate 62, respiratory rate 17, blood pressure 120%., Saturating at 92% on 4 L of oxygen. Patient labs are reviewed white count of 11.9, hemoglobin 10.9, platelets 2:30. Sodium 132, but patient with 3.4, chloride 99, bicarbonate 25, BN 7, creatinine 0.3. On 02/11/2020 -earlier this morning, patient's APTT was greater than 200, so the heparin drip was held for a few hours. Patient was having tachycardia and was more confused. Patient received a dose of Ativan, so currently he is opening his eyes on calling his name. He is confused. Moving all 4 extremities. 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 On reviewing his vitals T-max of 98.6, tachycardic in 120s to 130s, respiratory rate 20, saturating at 95% on 4 L of oxygen. On reviewing the vitals patient's white count of 11.5, hemoglobin 9.9, platelets 292. Sodium 131, potassium 3.8, chloride 100, bicarb 26, BUN 16, creatinine 0.4. Albumin 1.9. Later during the day, patient had a large liquidy dark brown bowel movement. Subjective: This is the present taking care of the patient 02/12/2020 This is a pleasant 64 years old male with multiple medical problems. Who was admitted on 02/06 for diverticulitis, he underwent anterior resection of the bowel on the same day by surgery team. Also patient has been complaining of from left ankle swelling, x-ray showed soft tissue swelling, orthopedic team were consulted and they recommended conservative management and equalizer boot. However Doppler ultrasound was positive for acute DVT, CTA of the chest was suboptimal and did not show any large pulmonary embolism, therefore patient underwent V/Q scan today and showed intermediate probability of pulmonary embolism, surgery primary team recommended to start anticoagulation although there was suspicion of GI bleed however repeat hemoglobin showed tendinopathy 9.8. Restarted heparin drip at low dose with close monitoring of hemoglobin and vitals and clinical situation. I called Y Mrs. Shell after patient allowed me and I discussed the case with her and updated her with his medical problems, including DVT and possible pulmonary embolism, she agrees to start the patient o n heparin drip. Risks including but not limited to intracranial hemorrhage, GI bleed are explained to her and she verbalized understanding and acceptance to continue with heparin drip. Also she is aware of these confusional state which is multifactorial, and major contributing factor would be alcohol withdrawal and delirium tremens, ammonia level less than 9. CT of the brain is negative for acute process. Neurologist evaluated the patient and felt the same. He is hemodynamically stable and heart rate is slightly improving 124 down to 111.Blood pressure 116/74. Patient is afebrile. He is saturating 94% on 3 L oxygen via nasal cannula Change fluids from D5 normal saline at 125 to D5 normal saline at 75, continue with CIWA protocol, continue with Zosyn. Continue with heparin drip with close monitoring of hemoglobin and vitals and signs of bleeding. Review of system: N/a Active Medications Generic Name Dose Route Start Last Admin Trade Name Freq PRN Reason Stop Dose Admin Baclofen 20 mg 02/07/20 21:00 02/12/20 09:14 Baclofen 10 Mg Tab PO 20 mg BID JOANA Administration Benzocaine/Menthol 1 each 02/07/20 11:56 Benzocaine/Menthol Lozeng 1 Each Lozenge MUCOUS MEM Q1HR PRN Sore Throat Folic Acid 1 mg 02/12/20 17:30 02/12/20 19:04 Folic Acid 1 Mg Tab PO Not Given DAILY JOANA Heparin Sodium (Porcine) 0 unit 02/12/20 11:58 Heparin Sodium,Porcine 5,000 Unit/Ml 1 Ml Vial IV PER PROTOCOL PRN Low PTT Protocol Hydromorphone HCl 1 mg 02/09/20 19:36 Hydromorphone 1 Mg/Ml 1 Ml Syringe IVP Q3HR PRN Pain Lactated Ringer's 1,000 mls @ 20 mls/hr 02/07/20 06:42 02/12/20 05:39 Lactated Ringers IV Not Given .Q24H JOANA Ropivacaine 250 mg/ 250 mls @ 0 mls/hr 02/07/20 10:00 02/09/20 17:33 Hydromorphone HCl 5 mg/ Sodium EPIDURAL 6 mls/hr Chloride .Q0M PRN Administration Pain Control Protocol Per Protocol Piperacillin Sod/Tazobactam 100 mls @ 25 mls/hr 02/08/20 16:00 02/12/20 18:30 Sod 3.375 gm/ Sodium Chloride IVPB 25 mls/hr Q8HR JOANA Administration Heparin Sodium/Sodium Chloride 250 mls @ 6.96 mls/hr 02/12/20 12:00 02/12/20 15:02 25,000 unit/ Sodium Chloride IV 12 units/kg/hr .Q24H JOANA 6.96 mls/hr Administration Protocol 12 UNITS/KG/HR Dextrose/Sodium Chloride 1,000 mls @ 75 mls/hr 02/12/20 18:15 Dextrose 5%-Ns Iv Soln IV .[id number] JOANA Lidocaine HCl 0.1 ml 02/07/20 06:42 02/07/20 08:28 Lidocaine 1% (10mg/Ml) For Iv Start INTRADERMA 0.1 ml PER PROTOCOL PRN Administration IV Start Lorazepam 1 mg 02/08/20 10:42 02/11/20 08:32 Lorazepam 2 Mg/Ml Inj IV 1 mg Q2HR PRN Administration CIWA 8 or 9 Lorazepam 1 mg 02/08/20 10:42 02/12/20 18:23 Lorazepam 2 Mg/Ml Inj IV 1 mg Q1HR PRN Administration CIWA 10 to 15 Metoclopramide HCl 10 mg 02/07/20 11:56 Metoclopramide 5 Mg/Ml 2 Ml Vial IVP Q6HR PRN Nausea and Vomiting Metoprolol Succinate 25 mg 02/08/20 09:00 02/12/20 09:14 Metoprolol Succinate (Er) 25 Mg Tab.Er.24h PO 25 mg DAILY JOANA Administration Miscellaneous Information 1 each 02/12/20 11:43 Magnesium Replacement Protocol 1 Each Misc MISCELLANE DAILY PRN Per Protocol Protocol Multivitamins 1 each 02/09/20 09:00 02/12/20 09:14 Multivitamins, Thera 1 Each Tab PO 1 each DAILY JOANA Administration Naloxone HCl 0.2 mg 02/07/20 09:50 Naloxone 0.4 Mg/Ml 1 Ml Vial IV Q2M PRN Opioid Reversal Nicotine 1 patch 02/12/20 09:00 02/12/20 08:48 Nicotine 21mg/24hr Patch TRANSDERM 1 patch DAILY JOANA Administration Nicotine Polacrilex 2 mg 02/07/20 23:12 Nicotine Polacrilex 2 Mg Gum BUCCAL Q4HR PRN Nicotine Cravings Ondansetron HCl 4 mg 02/07/20 11:56 Ondansetron 4 Mg/2 Ml Vial IVP Q8HR PRN Nausea And Vomiting Pantoprazole Sodium 40 mg 02/11/20 21:00 02/12/20 08:37 Pantoprazole 40 Mg/10 Ml Vial IVP 40 mg BID JOANA Administration Thiamine HCl 100 mg 02/08/20 17:30 02/12/20 19:03 Thiamine 100 Mg Tab PO Not Given BID-W/MEALS JOANA Objective - Vital Signs Vital signs: Vital Signs Temp 97.9 F 02/12/20 07:00 Pulse 123 H 02/12/20 07:00 Resp 18 02/12/20 07:00 BP 110/73 02/12/20 07:00 Pulse Ox 96 02/12/20 07:00 Intake & Output 02/11/20 02/12/20 02/12/20 18:59 06:59 18:59 Intake Total 759.487 376.56 Output Total 100 600 Balance 659.487 -223.44 Intake: Intake, IV Titration 584.487 76.56 Amount D5-0.45% NaCl with KCl 500 20Meq/l 1,000 ml @ 125 mls/hr IV .Q8H [facility] Rx#: [id number] Heparin Sod,Pork in 0.45% 84.487 76.56 NaCl 25,000 unit In 0.45 % NaCl 1 250ml.bag @ 18 UNITS/KG/HR 10.44 mls/hr IV .[id number] [facility] Rx#: [id number] Oral 175 300 Output: Urine 100 600 Other: Voiding Method Indwelling Catheter Indwelling Catheter Indwelling Catheter # Bowel Movements 1 3 1 - Exam -GENERAL: The patient is alert and oriented x0, patient is calm not in any acute distress. HEENT: Pupils are round and equally reacting to light. EOMI. No scleral icterus. No conjunctival pallor. Normocephalic, atraumatic. No pharyngeal erythema. No thyromegaly. CARDIOVASCULAR: S1 and S2 present. No murmurs, rubs, or gallops. PULMONARY: Chest is clear to auscultation, no wheezing or crackles. ABDOMEN: Soft, nontender, nondistended, normoactive bowel sounds. No palpable organomegaly. MUSCULOSKELETAL: No joint swelling or deformity. EXTREMITIES: No cyanosis, clubbing, or pedal edema. NEUROLOGICAL: Gross neurological examination did not reveal any focal deficits. SKIN: No rashes. no petechiae. - Labs CBC & Chem 7: 02/12/20 12:03 02/12/20 06:55 Labs: Abnormal Lab Results - Last 24 Hours (Table) 02/11/20 02/11/20 02/11/20 Range/Units 12:37 19:41 20:05 WBC 16.5 H (3.8-10.6) k/uL RBC 2.87 L (4.30-5.90) m/uL Hgb 10.1 L (13.0-17.5) gm/dL Hct 30.5 L (39.0-53.0) % MCV 106.4 H (80.0-100.0) fL MCH 35.2 H (25.0-35.0) pg Neutrophils # (Manual) 10.07 H (1.3-7.7) k/uL Lymphocytes # (Manual) (1.0-4.8) k/uL Monocytes # (Manual) 2.97 H (0-1.0) k/uL Retic Count (0.5-2.0) % INR (<1.2) APTT 51.9 H (22.0-30.0) sec Creatinine (0.6-1.5) mg/dL BUN/Creatinine Ratio (12.00-20.00) Ratio POC Glucose (mg/dL) 128 H (75-99) mg/dL Calcium (8.7-10.3) mg/dL Magnesium (1.5-2.4) mg/dL Iron (65-175) ug/dL TIBC (228-460) ug/dL % Saturation (15.00-50.00) Ferritin (22.0-322.0) ng/mL Total Protein (PEP) (6.2-8.2) g/dL Free [place] LC, Quant (0.33-1.94) mg/dL Free Lambda LC, Quant (0.57-2.63) mg/dL 02/12/20 02/12/20 02/12/20 Range/Units 06:55 06:55 06:55 WBC 13.0 H (3.8-10.6) k/uL RBC 2.49 L (4.30-5.90) m/uL Hgb 9.0 L (13.0-17.5) gm/dL Hct 26.7 L (39.0-53.0) % MCV 107.4 H (80.0-100.0) fL MCH 36.4 H (25.0-35.0) pg Neutrophils # (Manual) 9.60 H (1.3-7.7) k/uL Lymphocytes # (Manual) 0.91 L (1.0-4.8) k/uL Monocytes # (Manual) 2.47 H (0-1.0) k/uL Retic Count 8.0 H (0.5-2.0) % INR (<1.2) APTT (22.0-30.0) sec Creatinine 0.5 L (0.6-1.5) mg/dL BUN/Creatinine Ratio 50.00 H (12.00-20.00) Ratio POC Glucose (mg/dL) (75-99) mg/dL Calcium 7.3 L (8.7-10.3) mg/dL Magnesium 1.4 L (1.5-2.4) mg/dL Iron 21 L (65-175) ug/dL TIBC 144 L (228-460) ug/dL % Saturation 14.58 L (15.00-50.00) Ferritin 504.9 H (22.0-322.0) ng/mL Total Protein (PEP) 3.9 L (6.2-8.2) g/dL Free [place] LC, Quant 2.83 H (0.33-1.94) mg/dL Free Lambda LC, Quant 3.96 H (0.57-2.63) mg/dL 02/12/20 Range/Units 12:03 WBC (3.8-10.6) k/uL RBC (4.30-5.90) m/uL Hgb (13.0-17.5) gm/dL Hct (39.0-53.0) % MCV (80.0-100.0) fL MCH (25.0-35.0) pg Neutrophils # (Manual) (1.3-7.7) k/uL Lymphocytes # (Manual) (1.0-4.8) k/uL Monocytes # (Manual) (0-1.0) k/uL Retic Count (0.5-2.0) % INR 1.2 H (<1.2) APTT (22.0-30.0) sec Creatinine (0.6-1.5) mg/dL BUN/Creatinine Ratio (12.00-20.00) Ratio POC Glucose (mg/dL) (75-99) mg/dL Calcium (8.7-10.3) mg/dL Magnesium (1.5-2.4) mg/dL Iron (65-175) ug/dL TIBC (228-460) ug/dL % Saturation (15.00-50.00) Ferritin (22.0-322.0) ng/mL Total Protein (PEP) (6.2-8.2) g/dL Free [place] LC, Quant (0.33-1.94) mg/dL Free Lambda LC, Quant (0.57-2.63) mg/dL Assessment and Plan Assessment: -Diverticulitis, Status post low anterior resection -Metabolic encephalopathy, multifactorial, could be secondary to intra-abdominal infection, DVT/pulmonary embolism, alcohol withdrawal and delirium tremens -Alcohol abuse with alcohol withdrawal and delirium tremens -Acute Left lower extremity DVT, with V/Q scan showing intermediate probability for pulmonary embolism, present on admission -Acute hypoxic respiratory failure secondary to above- -Tachycardia -Chronic nicotine dependence -emphysema, asymptomatic -Alcoholic hepatitis -Mild hyponatremia -Macrocytic anemia. Plan: This is a pleasant 64 years old male who presents with diverticulitis status post anterior resection and DVT, alcohol abuse and withdrawal. Continue with gentle hydration, continue with heparin drip with close monitoring of hemoglobin and signs of bleeding. Monitor PTT closely, continue with CIWA protocol, continue with antibiotic currently Zosyn. Several teams were consulted including the surgery primary team, hematology/oncology team, cardiology for tachycardia, orthopedic team, and pulmonary team with the neurology service. Labs and medication were reviewed.. Continue same treatment. Continue with symptomatic treatment. Resume home medication. Monitor lytes and vitals. DVT and GI prophylaxis. Further recommendationsas per clinical course of the patient DVT prophylaxis: heparin GI Prophylaxis: Protonix twice a day PT/OT: Deferred Prognosis is guarded
[2020-02-12 21:32] LABS: HCT 25.9 % (39.0-53.0); HGB 8.8 gm/dL (13.0-17.5); MCH 36.4 pg (25.0-35.0); MCHC 33.9 g/dL (31.0-37.0); MCV 107.5 fL (80.0-100.0); Macrocytosis Moderate; Mean Platelet Volume 8.4; Platelet Count 289 k/uL (150-450); RBC 2.41 m/uL (4.30-5.90); RDW 13.8 % (11.5-15.5); WBC 16.1 k/uL (3.8-10.6)
[2020-02-12] MEDS: DEXTROSE 5%-0.9% NACL 1,000 ML IV SCH (21:38)
--- NOTE | 2020-02-13 00:37 | CONS ---
CONSULTATION This is a patient who was apparently admitted to the hospital on February 06. He has a history of chronic diverticulitis and apparently was here to have a low anterior resection by Dr. Lee. The patient apparently had the surgery performed on February 06. According to the operative note, the patient had diverticulitis with stricture and he had a low anterior resection, takedown of splenic flexure, and partial omentectomy. Apparently, the patient made it through the surgery okay. More recently, the patient was apparently discovered on February 08 to have a thrombus within the distal popliteal vein on the left side. Then, on February [address] a CT angiogram done which was a suboptimal study but did not reveal any large saddle or central pulmonary emboli. It was nondiagnostic for peripheral pulmonary emboli. The patient's CT scan also showed evidence of small bilateral pleural effusion and multifocal ground-glass opacities which could relate either edema and/or pneumonia. Cardiology was consulted on February 10. An echocardiogram was done on February 10 and medical consultation was done by Dr. Stewart on February 10. We were asked to see him on the . The patient apparently had a chest x-ray on the , which showed bilateral infiltrates which could be consistent with pneumonia or heart failure. The patient also had a ventilation perfusion lung scan which was indeterminate probability for PE. The issue raised by the primary service as it relates to our situation is whether or not the patient had a pulmonary embolism because apparently the patient is having ongoing gastrointestinal bleeding while on blood thinners. The patient himself is not in very good shape. He is not a particularly good historian. Somewhat confused. Not much history could be obtained from him. He was on some O2 at 2 L. His saturation was 95% to 96%. He was afebrile. His respiratory rate was 18 and he was tachycardic. Again not much history could be obtained from him, although when I did ask him whether not he was short of breath, he denied. PAST MEDICAL HISTORY: His past medical history is apparently positive for varicose veins, vitiligo, diverticular disease, and diarrhea. SURGICAL HISTORY: Surgical history includes appendectomy, knee surgery, and a left total hip surgery. SOCIAL HISTORY: Positive for current everyday tobacco use, and daily alcohol use. He apparently started smoking at age 22, smokes 1 to 2 packs a day and drinks 2 to 3 beers a day. No illicit drug use. FAMILY HISTORY: Unobtainable as apparently he was adopted. HOME MEDICATIONS: Home medications at the time of admission included baclofen, ciprofloxacin, metoprolol and metronidazole. ALLERGIES: Allergies are denied. Again not much additional history is obtained from the patient. Most of the history is gleaned from the medical record. REVIEW OF SYSTEMS: Cannot really be obtained from this patient. PHYSICAL EXAMINATION: VITAL SIGNS: Current vital signs are reviewed. Temperature is 97.5, heart rate 124, respiratory rate 18, blood pressure 111/73, mean is 85 and 2 L saturation 95%. GENERAL: Appears in no acute distress. Mildly tachycardic. No respiratory distress. Very poor historian. HEENT: Examination is grossly unremarkable. Nasal O2 in place. NECK: Supple. CARDIOVASCULAR: Examination reveals tachycardia. It is regular. Likely sinus. S1, S2 normal. No murmur. LUNGS: Reveal a few scattered rhonchi. Breath sounds mostly clear. No wheezes or crackles. ABDOMEN: Soft. No bowel sounds. EXTREMITIES: Are intact. No edema. SKIN: Without rash. NEUROLOGIC: Examination is difficult to assess. He does move all 4 extremities. LABS: Labs are reviewed. White count 14.5, hemoglobin 9.8, hematocrit 29.3, platelet count 318,000. PT/INR were 11.8 and 1.2. PTT 23.5. On the , his PTT was 51.9, probably reflecting the fact that he was on heparin. Sodium 135, potassium 3.5, chloride 104, CO2 of 25.2. Anion gap is 5.8. BUN and creatinine were 25 and 0.5. Calcium 7.3, magnesium 1.4. Iron 21. Ammonia level was less than 9. Vitamin B12 was 708. Microbiologic studies are negative or pending. The patient had a brain CT on February 11 which showed some generalized atrophy, but nothing acute. He had a ventilation perfusion lung scan on February 11, which was intermediate probability for PE. He had a chest x-ray on February 11 that showed bilateral right greater than left infiltrate. CURRENT MEDICATIONS: Current medications are reviewed. He is currently on baclofen, Cepacol lozenges, D5 0.45 with potassium at 125, IV heparin, Dilaudid, LR, Ativan, magnesium replacement, Reglan, metoprolol, multivitamins, Narcan, nicotine patch, Zofran, Protonix, Zosyn, and thiamine. ASSESSMENT: 1. Doubt pulmonary embolism. 2. Possible underlying pneumonia. 3. Left lower extremity deep venous thrombosis. 4. Status post low anterior resection for strictures and diverticular disease, postoperative day #5. 5. History of varicose veins. 6. History of vitiligo. 7. History of diverticular disease. PLAN: Really there are 2 options in this patient. If the patient continues to have bleeding while on anticoagulation, it would not be unreasonable to insert a temporary Marianne filter. I do not believe the patient has an acute pulmonary embolism at this time. I do think the patient may have some underlying pneumonia, which may explain his tachycardia and his instability. If the patient is at low risk for bleeding, I would agree that anticoagulation should be continued. Additional recommendations and suggestions are forthcoming. Prognosis is guarded. The patient is a particularly high risk given his age and his underlying multiple medical problems. We will continue to follow. MMODL / IJN: [id number] /
[2020-02-13 01:11] LABS: HCT 26.7 % (39.0-53.0); HGB 9.1 gm/dL (13.0-17.5); Hypochromasia Slight; MCH 37.5 pg (25.0-35.0); MCHC 34.2 g/dL (31.0-37.0); MCV 109.6 fL (80.0-100.0); Mean Platelet Volume 8.9; Platelet Count 301 k/uL (150-450); RBC 2.43 m/uL (4.30-5.90); RDW 14.8 % (11.5-15.5); WBC 16.3 k/uL (3.8-10.6)
[2020-02-13 01:17] LABS: Macrocytosis Marked
[2020-02-13] MEDS: LORazepam 2 MG/ML INJ IV PRN (01:48)
[2020-02-13] MEDS: LACTATED RINGERS 1,000 ML IV SCH (03:23)
--- NOTE | 2020-02-13 04:21 | PN ---
PROGRESS NOTE DATE OF SERVICE: 02/12/2020 REASON FOR FOLLOWUP: Leukocytosis. INTERVAL HISTORY: The patient is currently afebrile. The patient remains to be pleasantly confused and unable to provide history. No vomiting, no diarrhea has been reported by nursing staff. Still has drainage from his abdominal incision. PHYSICAL EXAMINATION: Blood pressure 116/74 with a pulse of 111, temperature 98.2. He is 94% on 3 L nasal cannula. General description is a middle-aged male lying in bed in no distress. RESPIRATORY SYSTEM: Unlabored breathing, decreased breath sounds in the bases. No wheeze. HEART: S1, S2. Regular rate and rhythm. ABDOMEN: Soft, less distended. No guarding or rigidity. EXTREMITIES: No edema of the feet. LABS: Hemoglobin 9.8, white count 14.5, creatinine 0.5. Patient did have a CT of the brain as well as a chest x-ray and a question of right basilar and right perihilar infiltrate, question of pneumonia. DIAGNOSTIC IMPRESSION AND PLAN: Patient with elevated white count which is multifactorial in this patient admitted to the hospital for low anterior resection, now possibly going through delirium tremens and right lower lobe pneumonia, possible aspiration and question of possible abdominal infection. Patient is covered with Zosyn. White count showing a downward trend, to continue and monitor his clinical course closely. MMODL / IJN: [id number] /
[2020-02-13 04:47] LABS: HCT 24.3 % (39.0-53.0); HGB 8.2 gm/dL (13.0-17.5); Hypochromasia Slight; MCH 36.9 pg (25.0-35.0); MCHC 33.9 g/dL (31.0-37.0); MCV 108.6 fL (80.0-100.0); Macrocytosis Moderate; Mean Platelet Volume 8.1; Platelet Count 240 k/uL (150-450); RBC 2.24 m/uL (4.30-5.90); RDW 14.4 % (11.5-15.5); WBC 15.7 k/uL (3.8-10.6)
[2020-02-13 06:28] LABS: Anisocytosis (M) Present; Band Neutrophils % 6 %; Eosinophils # (M) 0.16 k/uL (0-0.7); Lymphocytes # (M) 2.51 k/uL (1.0-4.8); Monocytes # (M) 0.94 k/uL (0-1.0); Neutrophils % (M) 71 %; Nucleated Red Blood Cells 0 /100 WBC (0-0); Polychromasia Present; Total Cells Counted 100
[2020-02-13 06:30] LABS: Poikilocytosis (M) Present
[2020-02-13] MEDS: THIAMINE 100 MG TAB PO SCH ×2 (07:22→18:03)
[2020-02-13] MEDS: FERROUS SULFATE 325 MG TAB PO SCH ×2 (07:22→18:03)
[2020-02-13] MEDS: PIPERACILLIN-TAZOBACTAM 3.375 GM in SODIUM CHLORIDE 0.9% 100 ML IVPB SCH ×3 (07:23→23:55)
[2020-02-13] MEDS: NICOTINE 21MG/24HR PATCH TRANSDERM SCH (08:57)
[2020-02-13] MEDS: METOPROLOL SUCCINATE (ER) 25 MG TAB.ER.24H PO SCH (08:58)
[2020-02-13] MEDS: MULTIVITAMINS, THERA 1 EACH TAB PO SCH (08:58)
[2020-02-13] MEDS: BACLOFEN 10 MG TAB PO SCH ×2 (08:59→21:05)
[2020-02-13] MEDS: FOLIC ACID 1 MG TAB PO SCH (08:59)
[2020-02-13] MEDS: PANTOPRAZOLE 40 MG/10 ML VIAL IVP SCH ×2 (08:59→21:04)
[2020-02-13] MEDS: DEXTROSE 5%-0.9% NACL 1,000 ML IV SCH ×2 (09:03→21:14)
[2020-02-13] MEDS ORDERED: HYDROcodone/APAP 5-325MG 1 EACH TAB PO PRN (09:06)
[2020-02-13 10:09] LABS: African American GFR (CKD) 133.7 (60.0-200.0); Anion Gap 5.2 mmol/L (4.00-12.00); Calcium 7.5 mg/dL (8.7-10.3); Carbon Dioxide 24.8 mmol/L (21.6-31.8); Non-African American GFR(CKD) 115.3 (60.0-200.0); Potassium 3.2 mmol/L (3.5-5.5)
[2020-02-13] MEDS ORDERED: Potassium Replacement Protocol 1 EACH MISC MISCELLANE PRN (10:25)
--- NOTE | 2020-02-13 11:56 | P.PN ---
Subjective From records Mr. Carter is a 64-year-old male admitted for complications of diverticulitis. CAT scan of the abdomen January 08 showed possible stricture. Patient underwent low anterior resection on February 06. He is postop day 5. Patient today is confused and could not provide information, alternatives explained to him his medical problem and he asked me "can I do the blood test at back home" when I asked him where he is back home he answers "[place]" he thinks he is in [place]. Also he thinks he is not however when I told him who is Sumaya Carter he remembers that she is his and he agrees for me to talk to her. As per patient has been going for acute diverticulitis also he was complaining from left ankle swelling for 2 weeks prior to hospitalization and they did not know why. Patient states that he drinks alcohol daily, and for the last 1 or 2 weeks. To admission to the hospital his been drinking 2 beers a day with occasional liquor. I discussed her medical problems with the patient including but not limited to his confusion, left leg clots and the need for heparin drip for anticoagulation, risks including but not limited to intracranial bleed, GI bleeds are explained for the patient and she verbalized acceptance. On 02/10/2020 - the patient's left lower extremity was more swollen than the right extremity, so her left lower extremity Doppler was obtained yesterday. The patient was found to have popliteal Isr[place] DVT. Patient's epidural has been discontinued. Hematology has been consulted regarding anticoagulation choice. Dr. Stewart suggested that the patient be started on heparin for his DVT which was initiated yesterday. As per the nursing staff report no acute events overnight. Patient does confused while sleeping comfortably in bed appears to be in no acute distress. Patient denies having any chest pain or palpitations. He complains of abdominal soreness. Patient did not have a bowel movement. He has a Lemus's catheter in place. Due to patient's alcohol history he is still on the CIWA scale, but not requiring Ativan currently. On reviewing the vitals patient's temperature is 98.4, heart rate 62, respiratory rate 17, blood pressure 120%., Saturating at 92% on 4 L of oxygen. Patient labs are reviewed white count of 11.9, hemoglobin 10.9, platelets 2:30. Sodium 132, but patient with 3.4, chloride 99, bicarbonate 25, BN 7, creatinine 0.3. On 02/11/2020 -earlier this morning, patient's APTT was greater than 200, so the heparin drip was held for a few hours. Patient was having tachycardia and was more confused. Patient received a dose of Ativan, so currently he is opening his eyes on calling his name. He is confused. Moving all 4 extremities. Patient had 2 small bowel movements, nonbloody in the technical implementation lead. On reviewing his vitals T-max of 98.6, tachycardic in 120s to 130s, respiratory rate 20, saturating at 95% on 4 L of oxygen. On reviewing the vitals patient's white count of 11.5, hemoglobin 9.9, platelets 292. Sodium 131, potassium 3.8, chloride 100, bicarb 26, BUN 16, creatinine 0.4. Albumin 1.9. Later during the day, patient had a large liquidy dark brown bowel movement. Subjective: This is the present taking care of the patient 02/12/2020 This is a pleasant 64 years old male with multiple medical problems. Who was admitted on 02/06 for diverticulitis, he underwent anterior resection of the bowel on the same day by surgery team. Also patient has been complaining of from left ankle swelling, x-ray showed soft tissue swelling, orthopedic team were consulted and they recommended conservative management and equalizer boot. However Doppler ultrasound was positive for acute DVT, CTA of the chest was suboptimal and did not show any large pulmonary embolism, therefore patient underwent V/Q scan today and showed intermediate probability of pulmonary embolism, surgery primary team recommended to start anticoagulation although there was suspicion of GI bleed however repeat hemoglobin showed tendinopathy 9.8. Restarted heparin drip at low dose with close monitoring of hemoglobin and vitals and clinical situation. I called Y Mrs. Shell after patient allowed me and I discussed the case with her and updated her with his medical problems, including DVT and possible pulmonary embolism, she agrees to start the patient o n heparin drip. Risks including but not limited to intracranial hemorrhage, GI bleed are explained to her and she verbalized understanding and acceptance to continue with heparin drip. Also she is aware of these confusional state which is multifactorial, and major contributing factor would be alcohol withdrawal and delirium tremens, ammonia level less than 9. CT of the brain is negative for acute process. Neurologist evaluated the patient and felt the same. He is hemodynamically stable and heart rate is slightly improving 124 down to 111.Blood pressure 116/74. Patient is afebrile. He is saturating 94% on 3 L oxygen via nasal cannula Change fluids from D5 normal saline at 125 to D5 normal saline at 75, continue with CIWA protocol, continue with Zosyn. Continue with heparin drip with close monitoring of hemoglobin and vitals and signs of bleeding. 02/13/2020 Patient remains confused, he is awakened and calm, he follows commands that he is confused to the surroundings. No pain or distress. He is breathing quietly. And his heart rate is 104, blood pressure 108/70. His saturating 95% on 3 L oxygen. Patient with a known left leg DVT, V/Q scan yesterday was intermediate prob ability for PE, patient remains on heparin drip, there is no strong evidence of GI bleed for now, iron study showing anemia of chronic disease also ABOUT a still pending, hemoglobin is fluctuating, currently is 8.2, we will keep monitoring the hemoglobin very closely and if it drops more or change in vitals and then we will stop heparin drip and we'll ask for vascular surgery for possible IVC filter Neurology team on the case and the plan is to do EEG. Pulmonary team input is appreciated, they think it's pneumonia rather than PE. IV heparin drip is still needed for his positive left leg DVT. I called his miss Shell and updated her with the problems and management plan and all her questions were answered and she verbalized understanding and acceptance Review of system: N/a Active Medications Generic Name Dose Route Start Last Admin Trade Name Freq PRN Reason Stop Dose Admin Hydrocodone Bitart/Acetaminophen 1 each 02/13/20 09:06 Hydrocodone/Apap 5-325mg 1 Each Tab PO Q4HR PRN Pain Baclofen 20 mg 02/07/20 21:00 02/13/20 08:59 Baclofen 10 Mg Tab PO 20 mg BID JOANA Administration Benzocaine/Menthol 1 each 02/07/20 11:56 Benzocaine/Menthol Lozeng 1 Each Lozenge MUCOUS MEM Q1HR PRN Sore Throat Ferrous Sulfate 325 mg 02/13/20 07:30 02/13/20 07:22 Ferrous Sulfate 325 Mg Tab PO 325 mg BID-W/MEALS JOANA Administration Folic Acid 1 mg 02/12/20 17:30 02/13/20 08:59 Folic Acid 1 Mg Tab PO 1 mg DAILY JOANA Administration Heparin Sodium (Porcine) 0 unit 02/12/20 11:58 02/12/20 21:55 Heparin Sodium,Porcine 5,000 Unit/Ml 1 Ml Vial IV 2,900 unit PER PROTOCOL PRN Administration Low PTT Protocol Hydromorphone HCl 1 mg 02/09/20 19:36 Hydromorphone 1 Mg/Ml 1 Ml Syringe IVP Q3HR PRN Pain Lactated Ringer's 1,000 mls @ 20 mls/hr 02/07/20 06:42 02/13/20 03:23 Lactated Ringers IV Not Given .Q24H JOANA Ropivacaine 250 mg/ 250 mls @ 0 mls/hr 02/07/20 10:00 02/09/20 17:33 Hydromorphone HCl 5 mg/ Sodium EPIDURAL 6 mls/hr Chloride .Q0M PRN Administration Pain Control Protocol Per Protocol Piperacillin Sod/Tazobactam 100 mls @ 25 mls/hr 02/08/20 16:00 02/13/20 07:23 Sod 3.375 gm/ Sodium Chloride IVPB 25 mls/hr Q8HR JOANA Administration Heparin Sodium/Sodium Chloride 250 mls @ 6.96 mls/hr 02/12/20 12:00 02/13/20 05:19 25,000 unit/ Sodium Chloride IV 15 units/kg/hr .Q24H JOANA 8.7 mls/hr Titration Protocol 12 UNITS/KG/HR Dextrose/Sodium Chloride 1,000 mls @ 75 mls/hr 02/12/20 18:15 02/13/20 09:03 Dextrose 5%-Ns Iv Soln IV 75 mls/hr .[id number] JOANA Administration Potassium Chloride 10 meq/ IV 100 mls @ 100 mls/hr 02/13/20 12:00 Solution IVPB 02/13/20 15:59 Q1HR JOANA Protocol Lidocaine HCl 0.1 ml 02/07/20 06:42 02/07/20 08:28 Lidocaine 1% (10mg/Ml) For Iv Start INTRADERMA 0.1 ml PER PROTOCOL PRN Administration IV Start Lorazepam 1 mg 02/08/20 10:42 02/13/20 01:48 Lorazepam 2 Mg/Ml Inj IV 1 mg Q2HR PRN Administration CIWA 8 or 9 Lorazepam 1 mg 02/08/20 10:42 02/12/20 18:23 Lorazepam 2 Mg/Ml Inj IV 1 mg Q1HR PRN Administration CIWA 10 to 15 Metoclopramide HCl 10 mg 02/07/20 11:56 Metoclopramide 5 Mg/Ml 2 Ml Vial IVP Q6HR PRN Nausea and Vomiting Metoprolol Succinate 25 mg 02/08/20 09:00 02/13/20 08:58 Metoprolol Succinate (Er) 25 Mg Tab.Er.24h PO 25 mg DAILY JOANA Administration Miscellaneous Information 1 each 02/12/20 11:43 Magnesium Replacement Protocol 1 Each Misc MISCELLANE DAILY PRN Per Protocol Protocol Miscellaneous Information 1 each 02/13/20 10:25 Potassium Replacement Protocol 1 Each Misc MISCELLANE DAILY PRN Per Protocol Protocol Multivitamins 1 each 02/09/20 09:00 02/13/20 08:58 Multivitamins, Thera 1 Each Tab PO 1 each DAILY JOANA Administration Naloxone HCl 0.2 mg 02/07/20 09:50 Naloxone 0.4 Mg/Ml 1 Ml Vial IV Q2M PRN Opioid Reversal Nicotine 1 patch 02/12/20 09:00 02/13/20 08:57 Nicotine 21mg/24hr Patch TRANSDERM 1 patch DAILY JOANA Administration Nicotine Polacrilex 2 mg 02/07/20 23:12 Nicotine Polacrilex 2 Mg Gum BUCCAL Q4HR PRN Nicotine Cravings Ondansetron HCl 4 mg 02/07/20 11:56 Ondansetron 4 Mg/2 Ml Vial IVP Q8HR PRN Nausea And Vomiting Pantoprazole Sodium 40 mg 02/11/20 21:00 02/13/20 08:59 Pantoprazole 40 Mg/10 Ml Vial IVP 40 mg BID JOANA Administration Thiamine HCl 100 mg 02/08/20 17:30 02/13/20 07:22 Thiamine 100 Mg Tab PO 100 mg BID-W/MEALS JOANA Administration Objective - Vital Signs Vital signs: Vital Signs Temp 98.2 F 02/13/20 07:00 Pulse 104 H 02/13/20 07:00 Resp 16 02/13/20 07:00 BP 108/70 02/13/20 07:00 Pulse Ox 95 02/13/20 07:00 Intake & Output 02/12/20 02/13/20 02/13/20 18:59 06:59 18:59 Intake Total 212.23 Output Total 1400 Balance -1187.77 Weight 58 kg Intake: Intake, IV Titration 112.23 Amount Heparin Sod,Pork in 0.45% 112.23 NaCl 25,000 unit In 0.45 % NaCl 1 250ml.bag @ 12 UNITS/KG/HR 6.96 mls/hr IV .Q24H [facility] Rx#: [id number] Oral 100 Output: Urine 1400 Uretheral (Lemus) 700 Other: Voiding Method Indwelling Catheter Indwelling Catheter Indwelling Catheter # Bowel Movements 1 1 - Exam -GENERAL: The patient is alert and oriented x0, patient is calm not in any acute distress. HEENT: Pupils are round and equally reacting to light. EOMI. No scleral icterus. No conjunctival pallor. Normocephalic, atraumatic. No pharyngeal erythema. No thyromegaly. CARDIOVASCULAR: S1 and S2 present. No murmurs, rubs, or gallops. PULMONARY: Chest is clear to auscultation, no wheezing or crackles. ABDOMEN: Soft, nontender, nondistended, normoactive bowel sounds. No palpable organomegaly. MUSCULOSKELETAL: No joint swelling or deformity. EXTREMITIES: No cyanosis, clubbing, or pedal edema. NEUROLOGICAL: Gross neurological examination did not reveal any focal deficits. SKIN: No rashes. no petechiae. - Labs CBC & Chem 7: 02/13/20 04:22 02/13/20 04:22 Labs: Abnormal Lab Results - Last 24 Hours (Table) 02/12/20 02/12/20 02/12/20 Range/Units 06:55 12:03 12:03 WBC 14.5 H (3.8-10.6) k/uL RBC 2.72 L (4.30-5.90) m/uL Hgb 9.8 L (13.0-17.5) gm/dL Hct 29.3 L (39.0-53.0) % MCV 107.8 H (80.0-100.0) fL MCH 35.9 H (25.0-35.0) pg Neutrophils # 9.8 H (1.3-7.7) k/uL Neutrophils # (Manual) (1.3-7.7) k/uL Monocytes # 1.9 H (0-1.0) k/uL Macrocytosis INR 1.2 H (<1.2) APTT (22.0-30.0) sec Potassium (3.5-5.5) mmol/L Creatinine (0.6-1.5) mg/dL BUN/Creatinine Ratio (12.00-20.00) Ratio Calcium (8.7-10.3) mg/dL Free Mcclusky LC, Quant 2.83 H (0.33-1.94) mg/dL Free Lambda LC, Quant 3.96 H (0.57-2.63) mg/dL 02/12/20 02/12/20 02/13/20 Range/Units 21:10 21:10 00:10 WBC 16.1 H 16.3 H (3.8-10.6) k/uL RBC 2.41 L 2.43 L (4.30-5.90) m/uL Hgb 8.8 L 9.1 L (13.0-17.5) gm/dL Hct 25.9 L 26.7 L (39.0-53.0) % MCV 107.5 H 109.6 H (80.0-100.0) fL MCH 36.4 H 37.5 H (25.0-35.0) pg Neutrophils # (1.3-7.7) k/uL Neutrophils # (Manual) (1.3-7.7) k/uL Monocytes # (0-1.0) k/uL Macrocytosis Marked A INR (<1.2) APTT 34.0 H (22.0-30.0) sec Potassium (3.5-5.5) mmol/L Creatinine (0.6-1.5) mg/dL BUN/Creatinine Ratio (12.00-20.00) Ratio Calcium (8.7-10.3) mg/dL Free Mcclusky LC, Quant (0.33-1.94) mg/dL Free Lambda LC, Quant (0.57-2.63) mg/dL 02/13/20 02/13/20 02/13/20 Range/Units 04:22 04:22 04:22 WBC 15.7 H (3.8-10.6) k/uL RBC 2.24 L (4.30-5.90) m/uL Hgb 8.2 L (13.0-17.5) gm/dL Hct 24.3 L (39.0-53.0) % MCV 108.6 H (80.0-100.0) fL MCH 36.9 H (25.0-35.0) pg Neutrophils # (1.3-7.7) k/uL Neutrophils # (Manual) 12.00 H (1.3-7.7) k/uL Monocytes # (0-1.0) k/uL Macrocytosis INR (<1.2) APTT 63.8 H (22.0-30.0) sec Potassium 3.2 L (3.5-5.5) mmol/L Creatinine 0.5 L (0.6-1.5) mg/dL BUN/Creatinine Ratio 38.00 H (12.00-20.00) Ratio Calcium 7.5 L (8.7-10.3) mg/dL Free Mcclusky LC, Quant (0.33-1.94) mg/dL Free Lambda LC, Quant (0.57-2.63) mg/dL Microbiology - Last 24 Hours (Table) 02/11/20 15:39 Blood Culture - Preliminary Blood No Growth after 24 hours 02/11/20 15:43 Blood Culture - Preliminary Blood No Growth after 24 hours Assessment and Plan Assessment: -Diverticulitis, Status post low anterior resection -Metabolic encephalopathy, multifactorial, could be secondary to intra-abdominal infection, DVT/pulmonary embolism, alcohol withdrawal and delirium tremens. Rule out seizure -Alcohol abuse with alcohol withdrawal and delirium tremens -Acute Left lower extremity DVT, with V/Q scan showing intermediate probability for pulmonary embolism, present on admission -Possible pneumonia -Acute hypoxic respiratory failure secondary to above- -Tachycardia -Chronic nicotine dependence -emphysema, asymptomatic -Alcoholic hepatitis -Mild hyponatremia -Macrocytic anemia. Plan: This is a pleasant 64 years old male who presents with diverticulitis status post anterior resection and DVT, alcohol abuse and withdrawal. Continue with gentle hydration, continue with heparin drip with close monitoring of hemoglobin and signs of bleeding. Monitor PTT closely, continue with CIWA protocol, continue with antibiotic currently Zosyn. Several teams were consulted including the surgery primary team, hematology/oncology team, cardiology for tachycardia, orthopedic team, and pulmonary team with the neurology service. Labs and medication were reviewed.. Continue same treatment. Continue with symptomatic treatment. Resume home medication. Monitor lytes and vitals. DVT and GI prophylaxis. Further recommendationsas per clinical course of the p atient DVT prophylaxis: heparin GI Prophylaxis: Protonix twice a day PT/OT: Deferred Prognosis is guarded
[2020-02-13] MEDS: POTASSIUM CHLORIDE 10 MEQ in WATER FOR INJECTION 1 100ML.BAG IVPB SCH ×4 (11:57→15:39)
[2020-02-13 12:05] LABS: HCT 25.3 % (39.0-53.0); HGB 8.3 gm/dL (13.0-17.5); Hypochromasia Slight; MCH 36.2 pg (25.0-35.0); MCHC 32.8 g/dL (31.0-37.0); MCV 110.3 fL (80.0-100.0); Macrocytosis Marked; Mean Platelet Volume 8.3; Platelet Count 294 k/uL (150-450); RBC 2.29 m/uL (4.30-5.90); RDW 14.9 % (11.5-15.5); WBC 17.1 k/uL (3.8-10.6)
[2020-02-13] MEDS: HEPARIN SOD,PORK IN 0.45% NACL 25,000 UNIT in 0.45% NACL 1 250ML.BAG IV SCH ×2 (12:33→17:55)
--- NOTE | 2020-02-13 12:46 | P.PN ---
Subjective Progress Note Date: 02/13/20 Patient was seen for a follow-up. Patient appears more somnolent today. Patient has received 1 mg of Ativan yesterday at 6:23 PM, and today hospital security officer and 1:48 AM. Patient now somnolent. Objective - Vital Signs Vital signs: Vital Signs Temp 98.2 F 02/13/20 07:00 Pulse 104 H 02/13/20 07:00 Resp 16 02/13/20 07:00 BP 108/70 02/13/20 07:00 Pulse Ox 95 02/13/20 07:00 Intake & Output 02/12/20 02/13/20 02/13/20 18:59 06:59 18:59 Intake Total 212.23 Output Total 1400 Balance -1187.77 Weight 58 kg Intake: Intake, IV Titration 112.23 Amount Heparin Sod,Pork in 0.45% 112.23 NaCl 25,000 unit In 0.45 % NaCl 1 250ml.bag @ 12 UNITS/KG/HR 6.96 mls/hr IV .Q24H [facility] Rx#: [id number] Oral 100 Output: Urine 1400 Uretheral (Lemus) 700 Other: Voiding Method Indwelling Catheter Indwelling Catheter Indwelling Catheter # Bowel Movements 1 1 - Exam Patient's sleeping. Noticed to have some rhythmic twitching of the left shoulder. Patient does respond to calling his name, states "what". However not able to tell what month or what year is it on his age. Patient moves his arms equally to noxious stimuli. Patient moves his legs very well to plantar stimulation. No focal weakness. - Labs CBC & Chem 7: 02/13/20 11:40 02/13/20 04:22 Labs: Abnormal Lab Results - Last 24 Hours (Table) 02/12/20 02/12/20 02/13/20 Range/Units 21:10 21:10 00:10 WBC 16.1 H 16.3 H (3.8-10.6) k/uL RBC 2.41 L 2.43 L (4.30-5.90) m/uL Hgb 8.8 L 9.1 L (13.0-17.5) gm/dL Hct 25.9 L 26.7 L (39.0-53.0) % MCV 107.5 H 109.6 H (80.0-100.0) fL MCH 36.4 H 37.5 H (25.0-35.0) pg Neutrophils # (Manual) (1.3-7.7) k/uL Macrocytosis Marked A APTT 34.0 H (22.0-30.0) sec Potassium (3.5-5.5) mmol/L Creatinine (0.6-1.5) mg/dL BUN/Creatinine Ratio (12.00-20.00) Ratio Calcium (8.7-10.3) mg/dL 02/13/20 02/13/20 02/13/20 Range/Units 04:22 04:22 04:22 WBC 15.7 H (3.8-10.6) k/uL RBC 2.24 L (4.30-5.90) m/uL Hgb 8.2 L (13.0-17.5) gm/dL Hct 24.3 L (39.0-53.0) % MCV 108.6 H (80.0-100.0) fL MCH 36.9 H (25.0-35.0) pg Neutrophils # (Manual) 12.00 H (1.3-7.7) k/uL Macrocytosis APTT 63.8 H (22.0-30.0) sec Potassium 3.2 L (3.5-5.5) mmol/L Creatinine 0.5 L (0.6-1.5) mg/dL BUN/Creatinine Ratio 38.00 H (12.00-20.00) Ratio Calcium 7.5 L (8.7-10.3) mg/dL 02/13/20 Range/Units 11:40 WBC 17.1 H (3.8-10.6) k/uL RBC 2.29 L (4.30-5.90) m/uL Hgb 8.3 L (13.0-17.5) gm/dL Hct 25.3 L (39.0-53.0) % MCV 110.3 H (80.0-100.0) fL MCH 36.2 H (25.0-35.0) pg Neutrophils # (Manual) (1.3-7.7) k/uL Macrocytosis Marked A APTT (22.0-30.0) sec Potassium (3.5-5.5) mmol/L Creatinine (0.6-1.5) mg/dL BUN/Creatinine Ratio (12.00-20.00) Ratio Calcium (8.7-10.3) mg/dL Microbiology - Last 24 Hours (Table) 02/11/20 15:39 Blood Culture - Preliminary Blood No Growth after 24 hours 02/11/20 15:43 Blood Culture - Preliminary Blood No Growth after 24 hours Assessment and Plan Assessment: * Altered mental status, likely due to alcohol withdrawal syndrome. * History of polysubstance abuse including alcohol, tobacco and perhaps marijuana. * Diverticulitis status post lower anterior resection, takedown of splenic flexure and partial omentectomy * Acute DVT left lower extremity, on IV heparin. * Folate deficiency Plan: * Check EEG to evaluate for encephalopathy, rule out any epileptiform activity. * Patient had withdrawals from chronic alcoholism. Probably will take time to get over the withdrawals. Examination is nonfocal. * CT head showed mild generalized atrophy. No acute intracranial process. * Continue folic acid 1 mg daily for folic acid deficiency. * Continue thiamine and multivitamins. * PT and OT when able to cooperate.
--- NOTE | 2020-02-13 13:22 | P.PN ---
Subjective Progress Note Date: 02/13/20 CHIEF COMPLAINT: Diverticulitis HISTORY OF PRESENT ILLNESS: Patient seen and examined with Dr. Lee. Patient is status post lower anterior resection, takedown of splenic flexure and partial omentectomy. Patient is still having some confusion requiring Ativan for alcohol withdrawal. He is getting an EEG today. He's had no further black stools. Hemoglobin has dropped from 9.1-8.2. Case was discussed with Dr. Jean Baptiste And patient will be proceeding with EGD tomorrow. He is afebrile. WBC is 15.7. He is reporting abdominal pain. He has been started on [place]. PHYSICAL EXAM: VITAL SIGNS: Reviewed. GENERAL: Well-developed in no acute distress. HEENT: No sclera icterus. Extraocular movements grossly intact. Moist buccal mucosa. Head is atraumatic, normocephalic. ABDOMEN: Soft clear drainage from incision due to ascites. Mildly distended. NEUROLOGIC: Confused. ASSESSMENT: 1. Diverticulitis status post lower anterior resection, takedown of splenic flexure and partial omentectomy 2. Alcohol abuse with alcohol withdrawal 3. New left leg DVT anticoagulated with IV heparin. Hematology following 4. Possible ileus 5. Black stools possible upper GI bleed 6. Altered mental status likely due to alcohol withdrawal syndrome. Patient evaluated by neurology 7. Hypokalemia PLAN: -Patient is scheduled for EGD with Dr. Lee tomorrow for further evaluation of black stools and possible upper GI bleed -Nothing by mouth after midnight -Continue IV fluids -Continue CIWA protocol with thiamine and multivitamin for alcohol abuse -Potassium being replaced per protocol -GI prophylaxis Pepcid Physician Soils Analyst note has been reviewed by physician. Signing provider agrees with the documented findings, assessment, and plan of care. Objective - Vital Signs Vital signs: Vital Signs Temp 98.2 F 02/13/20 07:00 Pulse 104 H 02/13/20 07:00 Resp 16 02/13/20 07:00 BP 108/70 02/13/20 07:00 Pulse Ox 95 02/13/20 07:00 Intake & Output 02/12/20 02/13/20 02/13/20 18:59 06:59 18:59 Intake Total 212.23 Output Total 1400 Balance -1187.77 Weight 58 kg Intake: Intake, IV Titration 112.23 Amount Heparin Sod,Pork in 0.45% 112.23 NaCl 25,000 unit In 0.45 % NaCl 1 250ml.bag @ 12 UNITS/KG/HR 6.96 mls/hr IV .Q24H [facility] Rx#: [id number] Oral 100 Output: Urine 1400 Uretheral (Lemus) 700 Other: Voiding Method Indwelling Catheter Indwelling Catheter Indwelling Catheter # Bowel Movements 1 1 - Labs CBC & Chem 7: 02/13/20 11:40 02/13/20 04:22 Labs: Abnormal Lab Results - Last 24 Hours (Table) 02/12/20 02/12/20 02/13/20 Range/Units 21:10 21:10 00:10 WBC 16.1 H 16.3 H (3.8-10.6) k/uL RBC 2.41 L 2.43 L (4.30-5.90) m/uL Hgb 8.8 L 9.1 L (13.0-17.5) gm/dL Hct 25.9 L 26.7 L (39.0-53.0) % MCV 107.5 H 109.6 H (80.0-100.0) fL MCH 36.4 H 37.5 H (25.0-35.0) pg Neutrophils # (Manual) (1.3-7.7) k/uL Macrocytosis Marked A APTT 34.0 H (22.0-30.0) sec Potassium (3.5-5.5) mmol/L Creatinine (0.6-1.5) mg/dL BUN/Creatinine Ratio (12.00-20.00) Ratio Calcium (8.7-10.3) mg/dL 02/13/20 02/13/20 02/13/20 Range/Units 04:22 04:22 04:22 WBC 15.7 H (3.8-10.6) k/uL RBC 2.24 L (4.30-5.90) m/uL Hgb 8.2 L (13.0-17.5) gm/dL Hct 24.3 L (39.0-53.0) % MCV 108.6 H (80.0-100.0) fL MCH 36.9 H (25.0-35.0) pg Neutrophils # (Manual) 12.00 H (1.3-7.7) k/uL Macrocytosis APTT 63.8 H (22.0-30.0) sec Potassium 3.2 L (3.5-5.5) mmol/L Creatinine 0.5 L (0.6-1.5) mg/dL BUN/Creatinine Ratio 38.00 H (12.00-20.00) Ratio Calcium 7.5 L (8.7-10.3) mg/dL 02/13/20 Range/Units 11:40 WBC 17.1 H (3.8-10.6) k/uL RBC 2.29 L (4.30-5.90) m/uL Hgb 8.3 L (13.0-17.5) gm/dL Hct 25.3 L (39.0-53.0) % MCV 110.3 H (80.0-100.0) fL MCH 36.2 H (25.0-35.0) pg Neutrophils # (Manual) (1.3-7.7) k/uL Macrocytosis Marked A APTT (22.0-30.0) sec Potassium (3.5-5.5) mmol/L Creatinine (0.6-1.5) mg/dL BUN/Creatinine Ratio (12.00-20.00) Ratio Calcium (8.7-10.3) mg/dL Microbiology - Last 24 Hours (Table) 02/11/20 15:39 Blood Culture - Preliminary Blood No Growth after 24 hours 02/11/20 15:43 Blood Culture - Preliminary Blood No Growth after 24 hours
--- NOTE | 2020-02-13 15:24 | P.PN ---
Subjective Progress Note Date: 02/13/20 Principal diagnosis: Intermediate probability VQ scan, rule out possibility of pulmonary embolism This is a 64-year-old white male patient status post low anterior resection for strictures and diverticular disease, and this is postoperative day #6. Following his surgery on February 08 patient had a thrombus discomfort within the distal popliteal vein in his left leg, on the liver night patient had a CT angiogram of the chest which was a suboptimal study and did not reveal any large saddle all of central pulmonary emboli. The computed tomography scan showed evidence of small bilateral pleural effusions and multifocal groundglass opacities that could relate to pulmonary edema and/or pneumonia. His chest x- ray from February 11 showed bilateral infiltrates that could be consistent with pneumonia or heart failure. VQ scan showed indeterminate probability for pulmonary embolism. Patient has been confused, apparently he does have history of chronic EtOH, but it has been 60 since his admission, he remains very confused, he is on 3 L of oxygen and the pulse ox of 95%, he was started on heparin infusion for DVT in his left leg. We did not think there was a pulmonar y embolism based on his workup. His brain CT showed no acute intracranial abnormality. In addition there is a possibility of GI bleeding as the patient has been passing some dark stools. Is not appear to be in any respiratory distress, he remains lethargic, confused. Neurology is following, EEGs in progress. Dr. Araujo is planning on EGD tomorrow for evaluation of black stools. Objective - Vital Signs Vital signs: Vital Signs Temp 98.2 F 02/13/20 07:00 Pulse 104 H 02/13/20 07:00 Resp 16 02/13/20 07:00 BP 108/70 02/13/20 07:00 Pulse Ox 95 02/13/20 07:00 Intake & Output 02/12/20 02/13/20 02/13/20 18:59 06:59 18:59 Intake Total 212.23 600 Output Total 1400 Balance -1187.77 600 Weight 58 kg Intake: IV 600 Dextrose 5%-0.9% NaCl 1, 600 000 ml @ 75 mls/hr IV . [id number] [facility] Rx#:[id number] Intake, IV Titration 112.23 Amount Heparin Sod,Pork in 0.45% 112.23 NaCl 25,000 unit In 0.45 % NaCl 1 250ml.bag @ 12 UNITS/KG/HR 6.96 mls/hr IV .Q24H [facility] Rx#: [id number] Oral 100 Output: Urine 1400 Uretheral (Lemus) 700 Other: Voiding Method Indwelling Catheter Indwelling Catheter Indwelling Catheter # Bowel Movements 1 1 - Exam GENERAL EXAM: Drowsy, very confused, 64-year-old white male, a 3 L of oxygen pulse ox of 95%, in the process of having the EEG comfortable in no apparent distress. HEAD: Normocephalic/atraumatic. EYES: Normal reaction of pupils, equal size. Conjunctiva pink, sclera white. NOSE: Clear with pink turbinates. THROAT: No erythema or exudates. NECK: No masses, no JVD, no thyroid enlargement, no adenopathy. CHEST: No chest wall deformity. Symmetrical expansion. LUNGS: Equal air entry with no crackles, wheeze, rhonchi or dullness. CVS: Regular rate and rhythm, normal S1 and S2, no gallops, no murmurs, no rubs ABDOMEN: Soft, nontender. No hepatosplenomegaly, normal bowel sounds, no guarding or rigidity. Abdominal incision is clean dry and intact, with some Deuel drainage from the incision EXTREMITIES: No clubbing, no edema, no cyanosis, 2+ pulses and upper and lower extremities. MUSCULOSKELETAL: Muscle strength and tone normal. SPINE: No scoliosis or deformity SKIN: No rashes CENTRAL NERVOUS SYSTEM: Drowsy, very confused No focal deficits, tone is normal in all 4 extremities. - Labs CBC & Chem 7: 02/13/20 11:40 02/13/20 04:22 Labs: Abnormal Lab Results - Last 24 Hours (Table) 02/12/20 02/12/20 02/13/20 Range/Units 21:10 21:10 00:10 WBC 16.1 H 16.3 H (3.8-10.6) k/uL RBC 2.41 L 2.43 L (4.30-5.90) m/uL Hgb 8.8 L 9.1 L (13.0-17.5) gm/dL Hct 25.9 L 26.7 L (39.0-53.0) % MCV 107.5 H 109.6 H (80.0-100.0) fL MCH 36.4 H 37.5 H (25.0-35.0) pg Neutrophils # (Manual) (1.3-7.7) k/uL Macrocytosis Marked A APTT 34.0 H (22.0-30.0) sec Potassium (3.5-5.5) mmol/L Creatinine (0.6-1.5) mg/dL BUN/Creatinine Ratio (12.00-20.00) Ratio Calcium (8.7-10.3) mg/dL 02/13/20 02/13/20 02/13/20 Range/Units 04:22 04:22 04:22 WBC 15.7 H (3.8-10.6) k/uL RBC 2.24 L (4.30-5.90) m/uL Hgb 8.2 L (13.0-17.5) gm/dL Hct 24.3 L (39.0-53.0) % MCV 108.6 H (80.0-100.0) fL MCH 36.9 H (25.0-35.0) pg Neutrophils # (Manual) 12.00 H (1.3-7.7) k/uL Macrocytosis APTT 63.8 H (22.0-30.0) sec Potassium 3.2 L (3.5-5.5) mmol/L Creatinine 0.5 L (0.6-1.5) mg/dL BUN/Creatinine Ratio 38.00 H (12.00-20.00) Ratio Calcium 7.5 L (8.7-10.3) mg/dL 02/13/20 Range/Units 11:40 WBC 17.1 H (3.8-10.6) k/uL RBC 2.29 L (4.30-5.90) m/uL Hgb 8.3 L (13.0-17.5) gm/dL Hct 25.3 L (39.0-53.0) % MCV 110.3 H (80.0-100.0) fL MCH 36.2 H (25.0-35.0) pg Neutrophils # (Manual) (1.3-7.7) k/uL Macrocytosis Marked A APTT (22.0-30.0) sec Potassium (3.5-5.5) mmol/L Creatinine (0.6-1.5) mg/dL BUN/Creatinine Ratio (12.00-20.00) Ratio Calcium (8.7-10.3) mg/dL Microbiology - Last 24 Hours (Table) 02/11/20 15:39 Blood Culture - Preliminary Blood No Growth after 24 hours 02/11/20 15:43 Blood Culture - Preliminary Blood No Growth after 24 hours Assessment and Plan Plan: Assessment: #1. Elevated d-dimer, nonspecific, doubt possibility of pulmonary embolism. CTA chest was suboptimal but did not reveal any evidence of central pulmonary embolism, VQ scan showed intermediate probability for pulmonary embolism #2. Diverticulitis, status post lower anterior resection, takedown of splenic flexure and partial omentectomy #3. Alcohol abuse with alcohol withdrawal #4. New left leg DVT anticoagulated with IV heparin #5. Dark black stools the possibility of upper GI bleeding #6. Possible ileus #7. Altered mental status, possibly related to metabolic encephalopathy, neurology is following #8. History of varicose veins #9. History of vitiligo #10. History of diverticular disease #11. History of EtOH abuse Plan: Continue current medical treatment, we doubt possibility of pulmonary embolism, and in view of GI bleeding if GI service feels that anticoagulation is contraindicated, recommend consulting gastric surgery for insertion of a removable Marianne filter. Hemodynamically he has stable, remains very confused, neurology is following, EEGs in progress, maintain aspiration pr ecautions. I performed a history & physical examination of the patient and discussed their management with my nurse practitioner, Felipa Matute. I reviewed the nurse practitioner's note and agree with the documented findings and plan of care. Lung sounds are positive for clear breath sounds throughout the lung arias. The findings and the impression was discussed with the patient. I attest to the documentation by the nurse practitioner. Time with Patient: Less than 30
--- NOTE | 2020-02-13 18:26 | EEG ---
ELECTROENCEPHALOGRAM REPORT DATE OF SERVICE: 02/13/2020 PREAMBLE: This is a 64-year-old male with history of alcoholism, had omentectomy and subsequently went into alcohol withdrawals. Patient has persistent abnormal mental status. EEG FINDINGS: This is a 21-channel routine EEG recording in a patient utilizing 10/20 international system with referential and bipolar montages. Background consists of well-developed, poorly regulated, mixed frequencies of 6-7 hertz theta intermixed with some 2-3 hertz generalized moderate amplitude delta activity. Background does not seem to be reactive to eye opening and closing. Some stage II sleep was seen with appearance of sleep spindles. No focal or generalized epileptiform activity was seen. IMPRESSION: This is an abnormal EEG due to background slowing of moderate degree. This is suggestive of generalized cerebral dysfunction as can be seen with toxic metabolic encephalopathies or due to diffuse structural brain abnormality. No epileptiform activity was seen. MMODL / IJN: [id number] /
--- NOTE | 2020-02-13 20:00 | P.PN ---
Subjective Progress Note Date: 02/13/20 Principal diagnosis: DVT and GI bleeding Heparin drip was restarted although follow-up hemoglobin revealed drop concerning for blood loss, therefore heparin placed back on hold and Dr. Stewart discussed with surgery and patient plan for Scope in am. At that time reassessment regarding re-challenging anti-coagulation versus need of IVF filter. Objective - Vital Signs Vital signs: Vital Signs Temp 98.0 F 02/13/20 15:36 Pulse 101 H 02/13/20 15:00 Resp 17 02/13/20 15:00 BP 109/67 02/13/20 15:00 Pulse Ox 97 02/13/20 15:00 Intake & Output 02/12/20 02/13/20 02/13/20 18:59 06:59 18:59 Intake Total 212.23 709.62 Output Total 1400 280 Balance -1187.77 429.62 Weight 58 kg Intake: IV 600 Dextrose 5%-0.9% NaCl 1, 600 000 ml @ 75 mls/hr IV . [id number] [facility] Rx#:[id number] Intake, IV Titration 112.23 109.62 Amount Heparin Sod,Pork in 0.45% 112.23 109.62 NaCl 25,000 unit In 0.45 % NaCl 1 250ml.bag @ 12 UNITS/KG/HR 6.96 mls/hr IV .Q24H [facility] Rx#: [id number] Oral 100 Output: Urine 1400 280 Uretheral (Lemus) 700 280 Other: Voiding Method Indwelling Catheter Indwelling Catheter Indwelling Catheter # Bowel Movements 1 1 - Exam - Constitutional Sleeping, difficult to arouse General appearance: no acute distress - EENT Eyes: PERRLA ENT: hearing grossly normal, normal oropharynx - Neck Neck: no lymphadenopathy Thyroid: bilateral: normal size - Respiratory Respiratory: bilateral: CTA - Cardiovascular Rhythm: regular Heart sounds: normal: S1, S2 - Gastrointestinal General gastrointestinal: absent bowel sounds, soft - Integumentary Integumentary: normal - Neurologic Sleepy, difficult to arouse Moving all 4 extremities - Musculoskeletal Musculoskeletal: generalized weakness, strength equal bilaterally - Labs CBC & Chem 7: 02/13/20 11:40 02/13/20 18:46 Labs: Abnormal Lab Results - Last 24 Hours (Table) 02/12/20 02/12/20 02/13/20 Range/Units 21:10 21:10 00:10 WBC 16.1 H 16.3 H (3.8-10.6) k/uL RBC 2.41 L 2.43 L (4.30-5.90) m/uL Hgb 8.8 L 9.1 L (13.0-17.5) gm/dL Hct 25.9 L 26.7 L (39.0-53.0) % MCV 107.5 H 109.6 H (80.0-100.0) fL MCH 36.4 H 37.5 H (25.0-35.0) pg Neutrophils # (Manual) (1.3-7.7) k/uL Macrocytosis Marked A APTT 34.0 H (22.0-30.0) sec Potassium (3.5-5.5) mmol/L Creatinine (0.6-1.5) mg/dL BUN/Creatinine Ratio (12.00-20.00) Ratio Calcium (8.7-10.3) mg/dL 02/13/20 02/13/20 02/13/20 Range/Units 04:22 04:22 04:22 WBC 15.7 H (3.8-10.6) k/uL RBC 2.24 L (4.30-5.90) m/uL Hgb 8.2 L (13.0-17.5) gm/dL Hct 24.3 L (39.0-53.0) % MCV 108.6 H (80.0-100.0) fL MCH 36.9 H (25.0-35.0) pg Neutrophils # (Manual) 12.00 H (1.3-7.7) k/uL Macrocytosis APTT 63.8 H (22.0-30.0) sec Potassium 3.2 L (3.5-5.5) mmol/L Creatinine 0.5 L (0.6-1.5) mg/dL BUN/Creatinine Ratio 38.00 H (12.00-20.00) Ratio Calcium 7.5 L (8.7-10.3) mg/dL 02/13/20 Range/Units 11:40 WBC 17.1 H (3.8-10.6) k/uL RBC 2.29 L (4.30-5.90) m/uL Hgb 8.3 L (13.0-17.5) gm/dL Hct 25.3 L (39.0-53.0) % MCV 110.3 H (80.0-100.0) fL MCH 36.2 H (25.0-35.0) pg Neutrophils # (Manual) (1.3-7.7) k/uL Macrocytosis Marked A APTT (22.0-30.0) sec Potassium (3.5-5.5) mmol/L Creatinine (0.6-1.5) mg/dL BUN/Creatinine Ratio (12.00-20.00) Ratio Calcium (8.7-10.3) mg/dL Microbiology - Last 24 Hours (Table) 02/11/20 15:43 Blood Culture - Preliminary Blood No Growth after 48 hours 02/11/20 15:39 Blood Culture - Preliminary Blood No Growth after 48 hours Assessment and Plan Plan: omments: Echocardiogram report reviewed. Ankle x-ray report reviewed CT scan - chest: report reviewed Venous US: report reviewed Assessment and Plan Deep vein thrombosis of left lower extremity - Provoked DVT. This was found in the immediate postsurgical state. - In addition prior to surgery the patient had been having some chronic inflammation related to diverticulitis. -Initially plan was limited period of anticoagulation, at least 3 months. Then repeat imaging, and if the patient is found to be in a favorable risk profile (resolution of known DVT, as well as no other persistent risk factors) then discontinuation off and the correlation will be considered. - The patient had a CTA done because of new onset tachycardia. This was negative, but was a suboptimal study. VQ scan was performed showing indermediate probability. Therefore likely 6 months of active AC therapy would be reasonable. - IV heparin currently on hold. - The patient did have an episode of black stool without much of a change in hemoglobin since admission. Therefore heparin was restarted slowly although hemoglobin did drop today to 8, Heparin on hold and awaiting GI evaluation in am per surgery team. Anemia - The patient presented with anemia, even prior to surgery with hemoglobin in the 10-11 range. Given his history of heavy alcohol use, multiple etiologies are possible, including GI blood loss, diminished absorption, as well as direct marrow suppression. Anemia workup was ordered and monitored closely post operatively. - Await GI evaluation, Start PPI - Transfuse if less than 7 - Monitor closely Plan: Defer to the admitting service and other consultants for management of his other medical problems Physician Attest: I have completed the full history and physical and developed the full assessment and plan, agree with above, dictated as a scribe.
[2020-02-13 20:08] LABS: Anisocytosis Slight; HCT 27.8 % (39.0-53.0); HGB 8.9 gm/dL (13.0-17.5); Hypochromasia Slight; MCH 35.3 pg (25.0-35.0); MCV 110.5 fL (80.0-100.0); Macrocytosis Marked; Mean Platelet Volume 8.9; Platelet Count 342 k/uL (150-450); RBC 2.51 m/uL (4.30-5.90); WBC 17.7 k/uL (3.8-10.6)
[2020-02-13] MEDS: POTASSIUM CHLORIDE ER 20 MEQ TAB.ER PO SCH ×2 (21:05→21:14)
--- NOTE | 2020-02-13 22:42 | PN ---
PROGRESS NOTE DATE OF SERVICE: 02/13/2020 REASON FOR FOLLOWUP: Leukocytosis and pneumonia. INTERVAL HISTORY: The patient is afebrile. The patient is more awake and alert today. He is breathing comfortably. The patient denies having any chest pain or shortness of breath. Occasional cough. No abdominal pain. No vomiting or diarrhea. PHYSICAL EXAMINATION: Blood pressure 111/69, pulse of 104, temperature 97.6. He is 94% on 3 L nasal cannula. General description is a middle-aged male lying in bed in no distress. RESPIRATORY SYSTEM: Unlabored breathing with decreased breath sounds at the base. No wheeze. HEART: S1, S2. Regular rate and rhythm. ABDOMEN: Soft. Incision is currently intact. EXTREMITIES: No edema of the feet. LABS: Hemoglobin is 8.9, white count 17.7. Creatinine 0.5. Blood culture has been negative. DIAGNOSTIC IMPRESSION AND PLAN: Patient with leukocytosis which is multifactorial and concern for possible component of pneumonia. abdominal source. Patient is covered with Zosyn; that will continue and will monitor his clinical course closely. MMODL / IJN: [id number] /
[2020-02-14] MEDS: LACTATED RINGERS 1,000 ML IV SCH (05:57)
[2020-02-14 05:59] LABS: HCT 26.2 % (39.0-53.0); HGB 8.6 gm/dL (13.0-17.5); Hypochromasia Slight; MCH 36.5 pg (25.0-35.0); MCV 110.6 fL (80.0-100.0); Macrocytosis Marked; Mean Platelet Volume 8.1; Platelet Count 336 k/uL (150-450); RBC 2.36 m/uL (4.30-5.90); RDW 15.9 % (11.5-15.5); WBC 16.3 k/uL (3.8-10.6)
[2020-02-14 06:42] LABS: Band Neutrophils % 2 %; Eosinophils # (M) 0.49 k/uL (0-0.7); Lymphocytes # (M) 1.47 k/uL (1.0-4.8); Monocytes # (M) 2.93 k/uL (0-1.0); Neutrophils % (M) 68 %; Nucleated Red Blood Cells 0 /100 WBC (0-0); Total Cells Counted 100
[2020-02-14 06:43] LABS: Anisocytosis (M) Present
[2020-02-14 06:44] LABS: Polychromasia Present
[2020-02-14] MEDS: FERROUS SULFATE 325 MG TAB PO SCH ×2 (07:54→16:13)
[2020-02-14] MEDS: THIAMINE 100 MG TAB PO SCH ×2 (07:54→16:13)
[2020-02-14] MEDS: NICOTINE 21MG/24HR PATCH TRANSDERM SCH (09:20)
[2020-02-14] MEDS: PANTOPRAZOLE 40 MG/10 ML VIAL IVP SCH ×2 (09:20→21:12)
[2020-02-14] MEDS: PIPERACILLIN-TAZOBACTAM 3.375 GM in SODIUM CHLORIDE 0.9% 100 ML IVPB SCH ×2 (09:21→16:13)
[2020-02-14] MEDS: BACLOFEN 10 MG TAB PO SCH ×2 (09:51→21:12)
[2020-02-14] MEDS: MULTIVITAMINS, THERA 1 EACH TAB PO SCH (09:51)
[2020-02-14] MEDS: METOPROLOL SUCCINATE (ER) 25 MG TAB.ER.24H PO SCH (09:51)
[2020-02-14] MEDS: FOLIC ACID 1 MG TAB PO SCH (09:51)
[2020-02-14 10:54] LABS: Potassium 3.1 mmol/L (3.5-5.5)
[2020-02-14 10:55] LABS: African American GFR (CKD) 146.5 (60.0-200.0); Anion Gap 5.7 mmol/L (4.00-12.00); Calcium 7.3 mg/dL (8.7-10.3); Carbon Dioxide 23.3 mmol/L (21.6-31.8); Magnesium 1.8 mg/dL (1.5-2.4); Non-African American GFR(CKD) 126.4 (60.0-200.0)
[2020-02-14] MEDS ORDERED: PROPOFOL 10 MG/ML 20 ML VIAL IV ONE (12:19)
[2020-02-14] MEDS ORDERED: IV FLUID CONTINUATION 1,000 ML IV ONE (12:27)
--- NOTE | 2020-02-14 12:35 | P.OP ---
Date of Procedure: 02/14/20 Preoperative Diagnosis: GI bleed Postoperative Diagnosis: Essentially normal EGD without evidence of upper GI bleed Procedure(s) Performed: EGD Anesthesia: MAC Surgeon: Hiram Lee Pathology: none sent Condition: stable Disposition: PACU Description of Procedure: The patient's placed on the endoscopy table in the lateral position. He received IV sedation. The gastroscope placed oropharynx passed in the esophagus into the stomach. Scope was placed through the pylorus. The first and second portion of the duodenum appeared normal. Scope was then brought back the antrum and this appeared normal. Scope was unretroflexed and remainder stomach appeared normal. There is no evidence of any significant gastritis or upper GI bleed. The GE junction was at 40 cm. The distal esophagus appeared normal. The proximal esophagus appeared normal. No evidence of upper GI bleed
--- NOTE | 2020-02-14 13:17 | P.PN ---
Subjective Progress Note Date: 02/14/20 Patient was seen for a follow-up. Much more alert and awake, still quite confused, laying diagonally in the bed. Objective - Vital Signs Vital signs: Vital Signs Temp 97.7 F 02/14/20 07:00 Pulse 106 H 02/14/20 08:00 Resp 15 02/14/20 11:59 BP 122/84 02/14/20 07:00 Pulse Ox 92 L 02/14/20 07:00 Intake & Output 02/13/20 02/14/20 02/14/20 18:59 06:59 18:59 Intake Total 709.62 106.285 67.545 Output Total 280 200 Balance 429.62 -93.715 67.545 Intake: IV 600 50 Dextrose 5%-0.9% NaCl 1, 600 000 ml @ 75 mls/hr IV . [id number] [facility] Rx#:[id number] Intake, IV Titration 109.62 106.285 17.545 Amount Heparin Sod,Pork in 0.45% 109.62 106.285 17.545 NaCl 25,000 unit In 0.45 % NaCl 1 250ml.bag @ 12 UNITS/KG/HR 6.96 mls/hr IV .Q24H [facility] Rx#: [id number] Output: Urine 280 200 Uretheral (Lemus) 280 Other: Voiding Method Indwelling Catheter Indwelling Catheter Indwelling Catheter # Bowel Movements 1 1 - Exam Patient is much more alert and awake, still confused, laying diagonally in the bed. No tremulousness noted. Patient appears to have decreased hearing. Sometimes not able to answer simple questions. Patient's muscle strength appears better, more stronger in the arms and legs. - Labs CBC & Chem 7: 02/14/20 05:20 02/14/20 05:20 Labs: Abnormal Lab Results - Last 24 Hours (Table) 02/13/20 02/13/20 02/13/20 Range/Units 11:00 18:46 18:46 WBC 17.7 H (3.8-10.6) k/uL RBC 2.51 L (4.30-5.90) m/uL Hgb 8.9 L (13.0-17.5) gm/dL Hct 27.8 L (39.0-53.0) % MCV 110.5 H (80.0-100.0) fL MCH 35.3 H (25.0-35.0) pg RDW 16.0 H (11.5-15.5) % Neutrophils # (Manual) (1.3-7.7) k/uL Monocytes # (Manual) (0-1.0) k/uL Macrocytosis Marked A APTT (22.0-30.0) sec Potassium 3.0 L (3.5-5.1) mmol/L Chloride (96-109) mmol/L Creatinine (0.6-1.5) mg/dL BUN/Creatinine Ratio (12.00-20.00) Ratio Glucose (70-110) mg/dL Calcium (8.7-10.3) mg/dL Stool Occult Blood Positive A (Negative) 02/14/20 02/14/20 02/14/20 Range/Units 05:20 05:20 05:20 WBC 16.3 H (3.8-10.6) k/uL RBC 2.36 L (4.30-5.90) m/uL Hgb 8.6 L (13.0-17.5) gm/dL Hct 26.2 L (39.0-53.0) % MCV 110.6 H (80.0-100.0) fL MCH 36.5 H (25.0-35.0) pg RDW 15.9 H (11.5-15.5) % Neutrophils # (Manual) 11.40 H (1.3-7.7) k/uL Monocytes # (Manual) 2.93 H (0-1.0) k/uL Macrocytosis Marked A APTT 56.9 H (22.0-30.0) sec Potassium 3.1 L (3.5-5.1) mmol/L Chloride 110 H (96-109) mmol/L Creatinine 0.4 L (0.6-1.5) mg/dL BUN/Creatinine Ratio 30.00 H (12.00-20.00) Ratio Glucose 114 H (70-110) mg/dL Calcium 7.3 L (8.7-10.3) mg/dL Stool Occult Blood (Negative) Microbiology - Last 24 Hours (Table) 02/11/20 15:43 Blood Culture - Preliminary Blood No Growth after 48 hours 02/11/20 15:39 Blood Culture - Preliminary Blood No Growth after 48 hours Assessment and Plan Assessment: * Altered mental status, likely due to alcohol withdrawal syndrome. * History of polysubstance abuse including alcohol, tobacco and perhaps marijuana. * Diverticulitis status post lower anterior resection, takedown of splenic flexure and partial omentectomy * Acute DVT left lower extremity, on IV heparin. * Folate deficiency Plan: * EEG showed moderate background slowing consistent with encephalopathy, no epileptiform activity seen. * Patient appears slightly more mentally clear. Hopefully will improve gradually. Avoid excessive sedation. * CT head showed mild generalized atrophy. No acute intracranial process. * Continue folic acid 1 mg daily for folic acid deficiency. * Continue thiamine and multivitamins. * PT and OT when able to cooperate.
[2020-02-14 13:23] LABS: Albumin 1.64 g/dL (3.80-4.90); Gamma Globulin 0.69 g/dL (0.70-1.50)
--- NOTE | 2020-02-14 15:12 | P.PN ---
Subjective Progress Note Date: 02/14/20 Principal diagnosis: Intermediate probability VQ scan, rule out possibility of pulmonary embolism This is a 64-year-old white male patient status post low anterior resection for strictures and diverticular disease, and this is postoperative day #6. Following his surgery on February 08 patient had a thrombus discomfort within the distal popliteal vein in his left leg, on the liver night patient had a CT angiogram of the chest which was a suboptimal study and did not reveal any large saddle all of central pulmonary emboli. The computed tomography scan showed evidence of small bilateral pleural effusions and multifocal groundglass opacities that could relate to pulmonary edema and/or pneumonia. His chest x- ray from February 11 showed bilateral infiltrates that could be consistent with pneumonia or heart failure. VQ scan showed indeterminate probability for pulmonary embolism. Patient has been confused, apparently he does have history of chronic EtOH, but it has been 60 since his admission, he remains very confused, he is on 3 L of oxygen and the pulse ox of 95%, he was started on heparin infusion for DVT in his left leg. We did not think there was a pulmonar y embolism based on his workup. His brain CT showed no acute intracranial abnormality. In addition there is a possibility of GI bleeding as the patient has been passing some dark stools. Is not appear to be in any respiratory distress, he remains lethargic, confused. Neurology is following, EEGs in progress. Dr. Araujo is planning on EGD tomorrow for evaluation of black stools. On 02/14/2020 patient seen in follow-up on general medical surgical floor his heparin drip is off, his 0.9 normal saline running at 75 ML per hour, appears to be more awake on today's exam, although still confused, she is only oriented to percent, no agitation. No signs of respiratory difficulty, he is on 3 L of oxygen pulse ox is 95%, hemodynamically stable, his abdomen is slightly tender postsurgery, his incision covered with dressing, his been afebrile, breathing is nonlabored, lung sounds reveal a few basilar crackles, no rhonchi or wheezing. Surgery is planned and on EGD today, neurology is following, EEG revealed background slowing of moderate degree suggestive of generalized cerebral dysfunction related to toxic metabolic encephalopathy. Today's hemoglobin is 8.6, had one bowel movement this morning. Objective - Vital Signs Vital signs: Vital Signs Temp 98.7 F 02/14/20 13:00 Pulse 71 02/14/20 13:00 Resp 15 02/14/20 13:00 BP 103/69 02/14/20 13:00 Pulse Ox 95 02/14/20 13:00 Intake & Output 02/13/20 02/14/20 02/14/20 18:59 06:59 18:59 Intake Total 709.62 106.285 167.545 Output Total 280 200 Balance 429.62 -93.715 167.545 Intake: IV 600 50 Dextrose 5%-0.9% NaCl 1, 600 000 ml @ 75 mls/hr IV . [id number] [facility] Rx#:[id number] Intake, IV Titration 109.62 106.285 117.545 Amount Heparin Sod,Pork in 0.45% 109.62 106.285 17.545 NaCl 25,000 unit In 0.45 % NaCl 1 250ml.bag @ 12 UNITS/KG/HR 6.96 mls/hr IV .Q24H [facility] Rx#: [id number] Piperacillin-Tazobactam 3 100 .375 gm In Sodium Chloride 0.9% 100 ml @ 25 mls/hr IVPB Q8HR [facility] Rx# :[id number] Output: Urine 280 200 Uretheral (Lemus) 280 Other: Voiding Method Indwelling Catheter Indwelling Catheter Indwelling Catheter # Bowel Movements 1 1 - Exam GENERAL EXAM: More alert on today's exam, but still very confused, 64-year-old white male, only oriented to person a 3 L of oxygen pulse ox of 95%, in the process of having the EEG comfortable in no apparent distress. HEAD: Normocephalic/atraumatic. EYES: Normal reaction of pupils, equal size. Conjunctiva pink, sclera white. NOSE: Clear with pink turbinates. THROAT: No erythema or exudates. NECK: No masses, no JVD, no thyroid enlargement, no adenopathy. CHEST: No chest wall deformity. Symmetrical expansion. LUNGS: Equal air entry with no crackles, wheeze, rhonchi or dullness. CVS: Regular rate and rhythm, normal S1 and S2, no gallops, no murmurs, no rubs ABDOMEN: Soft, nontender. No hepatosplenomegaly, normal bowel sounds, no guarding or rigidity. Abdominal incision is clean dry and intact, with some Dubois drainage from the incision EXTREMITIES: No clubbing, no edema, no cyanosis, 2+ pulses and upper and lower extremities. MUSCULOSKELETAL: Muscle strength and tone normal. SPINE: No scoliosis or deformity SKIN: No rashes CENTRAL NERVOUS SYSTEM: More awake on today's exam, very confused No focal deficits, tone is normal in all 4 extremities. - Labs CBC & Chem 7: 02/14/20 05:20 02/14/20 05:20 Labs: Abnormal Lab Results - Last 24 Hours (Table) 02/12/20 02/13/20 02/13/20 Range/Units 06:55 11:00 18:46 WBC (3.8-10.6) k/uL RBC (4.30-5.90) m/uL Hgb (13.0-17.5) gm/dL Hct (39.0-53.0) % MCV (80.0-100.0) fL MCH (25.0-35.0) pg RDW (11.5-15.5) % Neutrophils # (Manual) (1.3-7.7) k/uL Monocytes # (Manual) (0-1.0) k/uL Macrocytosis APTT (22.0-30.0) sec Potassium 3.0 L (3.5-5.1) mmol/L Chloride (96-109) mmol/L Creatinine (0.6-1.5) mg/dL BUN/Creatinine Ratio (12.00-20.00) Ratio Glucose (70-110) mg/dL Calcium (8.7-10.3) mg/dL Albumin (PEP) 1.64 L (3.80-4.90) g/dL Prvsm-9-Xwolapugp 0.51 L (0.60-1.00) g/dL Gamma Globulins 0.69 L (0.70-1.50) g/dL Stool Occult Blood Positive A (Negative) 02/13/20 02/14/20 02/14/20 Range/Units 18:46 05:20 05:20 WBC 17.7 H (3.8-10.6) k/uL RBC 2.51 L (4.30-5.90) m/uL Hgb 8.9 L (13.0-17.5) gm/dL Hct 27.8 L (39.0-53.0) % MCV 110.5 H (80.0-100.0) fL MCH 35.3 H (25.0-35.0) pg RDW 16.0 H (11.5-15.5) % Neutrophils # (Manual) (1.3-7.7) k/uL Monocytes # (Manual) (0-1.0) k/uL Macrocytosis Marked A APTT 56.9 H (22.0-30.0) sec Potassium 3.1 L (3.5-5.1) mmol/L Chloride 110 H (96-109) mmol/L Creatinine 0.4 L (0.6-1.5) mg/dL BUN/Creatinine Ratio 30.00 H (12.00-20.00) Ratio Glucose 114 H (70-110) mg/dL Calcium 7.3 L (8.7-10.3) mg/dL Albumin (PEP) (3.80-4.90) g/dL Sufba-1-Tfugfpxce (0.60-1.00) g/dL Gamma Globulins (0.70-1.50) g/dL Stool Occult Blood (Negative) 02/14/20 Range/Units 05:20 WBC 16.3 H (3.8-10.6) k/uL RBC 2.36 L (4.30-5.90) m/uL Hgb 8.6 L (13.0-17.5) gm/dL Hct 26.2 L (39.0-53.0) % MCV 110.6 H (80.0-100.0) fL MCH 36.5 H (25.0-35.0) pg RDW 15.9 H (11.5-15.5) % Neutrophils # (Manual) 11.40 H (1.3-7.7) k/uL Monocytes # (Manual) 2.93 H (0-1.0) k/uL Macrocytosis Marked A APTT (22.0-30.0) sec Potassium (3.5-5.1) mmol/L Chloride (96-109) mmol/L Creatinine (0.6-1.5) mg/dL BUN/Creatinine Ratio (12.00-20.00) Ratio Glucose (70-110) mg/dL Calcium (8.7-10.3) mg/dL Albumin (PEP) (3.80-4.90) g/dL Mluhp-7-Ujjdavloq (0.60-1.00) g/dL Gamma Globulins (0.70-1.50) g/dL Stool Occult Blood (Negative) Microbiology - Last 24 Hours (Table) 02/11/20 15:43 Blood Culture - Preliminary Blood No Growth after 48 hours 02/11/20 15:39 Blood Culture - Preliminary Blood No Growth after 48 hours Assessment and Plan Plan: Assessment: #1. Elevated d-dimer, nonspecific, doubt possibility of pulmonary embolism. CTA chest was suboptimal but did not reveal any evidence of central pulmonary embolism, VQ scan showed intermediate probability for pulmonary embolism #2. Diverticulitis, status post lower anterior resection, takedown of splenic flexure and partial omentectomy #3. Alcohol abuse with alcohol withdrawal #4. New left leg DVT anticoagulated with IV heparin #5. Dark black stools the possibility of upper GI bleeding #6. Possible ileus #7. Altered mental status, possibly related to metabolic encephalopathy, neurology is following #8. History of varicose veins #9. History of vitiligo #10. History of diverticular disease #11. History of EtOH abuse Plan: No complaints of worsening shortness of breath, no hemoptysis, hemoglobin stable, hemodynamically patient is stable, he had his EGD today which did not show any evidence of upper GI bleeding. Will need clearance from surgery on whether or not the patient can be restarted on anticoagulation for the DVT in his leg, we didn't think there was a pulmonary embolism. If the anticoagulation is contraindicated may have to consider IVC filter I performed a history & physical examination of the patient and discussed their management with my nurse practitioner, Felipa Matute. I reviewed the nurse practitioner's note and agree with the documented findings and plan of care. Lung sounds are positive for clear breath sounds throughout the lung arias. The findings and the impression was discussed with the patient. I attest to the documentation by the nurse practitioner. Time with Patient: Less than 30
--- NOTE | 2020-02-14 18:21 | P.PN ---
Subjective Progress Note Date: 02/14/20 Principal diagnosis: DVT and GI bleeding Objective - Vital Signs Vital signs: Vital Signs Temp 98.7 F 02/14/20 13:00 Pulse 71 02/14/20 13:00 Resp 15 02/14/20 13:00 BP 103/69 02/14/20 13:00 Pulse Ox 95 02/14/20 13:00 Intake & Output 02/13/20 02/14/20 02/14/20 18:59 06:59 18:59 Intake Total 709.62 106.285 167.545 Output Total 280 200 Balance 429.62 -93.715 167.545 Intake: IV 600 50 Dextrose 5%-0.9% NaCl 1, 600 000 ml @ 75 mls/hr IV . [id number] [facility] Rx#:[id number] Intake, IV Titration 109.62 106.285 117.545 Amount Heparin Sod,Pork in 0.45% 109.62 106.285 17.545 NaCl 25,000 unit In 0.45 % NaCl 1 250ml.bag @ 12 UNITS/KG/HR 6.96 mls/hr IV .Q24H [facility] Rx#: [id number] Piperacillin-Tazobactam 3 100 .375 gm In Sodium Chloride 0.9% 100 ml @ 25 mls/hr IVPB Q8HR [facility] Rx# :[id number] Output: Urine 280 200 Uretheral (Lemus) 280 Other: Voiding Method Indwelling Catheter Indwelling Catheter Indwelling Catheter # Bowel Movements 1 1 - Exam - Constitutional Sleeping, difficult to arouse General appearance: no acute distress - EENT Eyes: PERRLA ENT: hearing grossly normal, normal oropharynx - Neck Neck: no lymphadenopathy Thyroid: bilateral: normal size - Respiratory Respiratory: bilateral: CTA - Cardiovascular Rhythm: regular Heart sounds: normal: S1, S2 - Gastrointestinal General gastrointestinal: absent bowel sounds, soft - Integumentary Integumentary: normal - Neurologic Sleepy, difficult to arouse Moving all 4 extremities - Musculoskeletal Musculoskeletal: generalized weakness, strength equal bilaterally - Labs CBC & Chem 7: 02/14/20 05:20 02/14/20 05:20 Labs: Abnormal Lab Results - Last 24 Hours (Table) 02/12/20 02/13/20 02/13/20 Range/Units 06:55 11:00 18:46 WBC (3.8-10.6) k/uL RBC (4.30-5.90) m/uL Hgb (13.0-17.5) gm/dL Hct (39.0-53.0) % MCV (80.0-100.0) fL MCH (25.0-35.0) pg RDW (11.5-15.5) % Neutrophils # (Manual) (1.3-7.7) k/uL Monocytes # (Manual) (0-1.0) k/uL Macrocytosis APTT (22.0-30.0) sec Potassium 3.0 L (3.5-5.1) mmol/L Chloride (96-109) mmol/L Creatinine (0.6-1.5) mg/dL BUN/Creatinine Ratio (12.00-20.00) Ratio Glucose (70-110) mg/dL Calcium (8.7-10.3) mg/dL Albumin (PEP) 1.64 L (3.80-4.90) g/dL Nszzz-3-Rsfaudujt 0.51 L (0.60-1.00) g/dL Gamma Globulins 0.69 L (0.70-1.50) g/dL Stool Occult Blood Positive A (Negative) 02/13/20 02/14/20 02/14/20 Range/Units 18:46 05:20 05:20 WBC 17.7 H (3.8-10.6) k/uL RBC 2.51 L (4.30-5.90) m/uL Hgb 8.9 L (13.0-17.5) gm/dL Hct 27.8 L (39.0-53.0) % MCV 110.5 H (80.0-100.0) fL MCH 35.3 H (25.0-35.0) pg RDW 16.0 H (11.5-15.5) % Neutrophils # (Manual) (1.3-7.7) k/uL Monocytes # (Manual) (0-1.0) k/uL Macrocytosis Marked A APTT 56.9 H (22.0-30.0) sec Potassium 3.1 L (3.5-5.1) mmol/L Chloride 110 H (96-109) mmol/L Creatinine 0.4 L (0.6-1.5) mg/dL BUN/Creatinine Ratio 30.00 H (12.00-20.00) Ratio Glucose 114 H (70-110) mg/dL Calcium 7.3 L (8.7-10.3) mg/dL Albumin (PEP) (3.80-4.90) g/dL Jsqrq-7-Djxyiyyxl (0.60-1.00) g/dL Gamma Globulins (0.70-1.50) g/dL Stool Occult Blood (Negative) 02/14/20 Range/Units 05:20 WBC 16.3 H (3.8-10.6) k/uL RBC 2.36 L (4.30-5.90) m/uL Hgb 8.6 L (13.0-17.5) gm/dL Hct 26.2 L (39.0-53.0) % MCV 110.6 H (80.0-100.0) fL MCH 36.5 H (25.0-35.0) pg RDW 15.9 H (11.5-15.5) % Neutrophils # (Manual) 11.40 H (1.3-7.7) k/uL Monocytes # (Manual) 2.93 H (0-1.0) k/uL Macrocytosis Marked A APTT (22.0-30.0) sec Potassium (3.5-5.1) mmol/L Chloride (96-109) mmol/L Creatinine (0.6-1.5) mg/dL BUN/Creatinine Ratio (12.00-20.00) Ratio Glucose (70-110) mg/dL Calcium (8.7-10.3) mg/dL Albumin (PEP) (3.80-4.90) g/dL Mavoh-4-Udamcevkr (0.60-1.00) g/dL Gamma Globulins (0.70-1.50) g/dL Stool Occult Blood (Negative) Microbiology - Last 24 Hours (Table) 02/11/20 15:39 Blood Culture - Preliminary Blood No Growth after 72 hours 02/11/20 15:43 Blood Culture - Preliminary Blood No Growth after 72 hours Assessment and Plan Plan: omments: Echocardiogram report reviewed. Ankle x-ray report reviewed CT scan - chest: report reviewed Venous US: report reviewed Assessment and Plan: Deep vein thrombosis of left lower extremity - Provoked DVT. This was found in the immediate postsurgical state. - In addition prior to surgery the patient had been having some chronic inflammation related to diverticulitis. -Initially plan was limited period of anticoagulation, at least 3 months. Then repeat imaging, and if the patient is found to be in a favorable risk profile (resolution of known DVT, as well as no other persistent risk factors) then discontinuation off and the correlation will be considered. - The patient had a CTA done because of new onset tachycardia. This was negative, but was a suboptimal study. VQ scan was performed showing indermediate probability. Therefore likely 6 months of active AC therapy would be reasonable. - IV heparin currently on hold. - The patient did have an episode of black stool without much of a change in hemoglobin since admission. Therefore heparin was restarted slowly although hemoglobin did drop today to 8, Heparin on hold and awaiting GI evaluation in am per surgery team. - EGD today - If plan to rechallenge recommend Heparin drip for 24 hours no bolus and serial cbc monitoring Anemia - The patient presented with anemia, even prior to surgery with hemoglobin in the 10-11 range. Given his history of heavy alcohol use, multiple etiologies are possible, including GI blood loss, diminished absorption, as well as direct marrow suppression. Anemia workup was ordered and monitored closely post operatively. - Await GI evaluation, Start PPI - Transfuse if less than 7 - Monitor closely Plan: Defer to the admitting service and other consultants for management of his other medical problems Physician Attest: I have completed the full history and physical and developed the full assessment and plan, agree with above, dictated as a scribe.
[2020-02-14] MEDS: DEXTROSE 5%-0.9% NACL 1,000 ML IV SCH (19:20)
[2020-02-14] MEDS ORDERED: POTASSIUM CHLORIDE ER 20 MEQ TAB.ER PO STA (22:24)
--- NOTE | 2020-02-14 22:30 | P.PN ---
Progress Note - Text Progress Note Date: 02/14/20 - Chief Complaint Abdominal surgery History of presenting complaint: This is a pleasant 64-year-old patient of . Patient been having complication to his diverticulitis. computed tomography scan on January 08. Showed some possible stricture. Hepatic steatosis. February 06- undergone low anterior resection. Epidural for pain control.patient had elevated d-dimer. Pulmonary embolism felt to be unlikely. CT was suboptimal. VQ scan was intermediate probability. Leg DVT treated with IV heparin. Had some dark stools.also patient had had altered mental status. [place] to be encephalopathy.computed tomography scan of the brain was unremarkable. Today-laying in bed. Awake. A bit tired. No pain.has been placed on regular diet.EKG done today was unremarkable. Review of systems: Was done for constitutional, cardiovascular, GI, pulmonary. relevant finding as above Active Medications Hydrocodone Bitart/Acetaminophen (Hydrocodone/Apap 5-325mg 1 Each Tab) 1 each PO Q4HR PRN PRN Reason: Pain Last Admin: 02/14/20 16:28 Dose: 1 each Documented by: Baclofen (Baclofen 10 Mg Tab) 20 mg PO BID [facility] Last Admin: 02/14/20 21:12 Dose: 20 mg Documented by: Benzocaine/Menthol (Benzocaine/Menthol Lozeng 1 Each Lozenge) 1 each MUCOUS MEM Q1HR PRN PRN Reason: Sore Throat Ferrous Sulfate (Ferrous Sulfate 325 Mg Tab) 325 mg PO BID-W/MEALS [facility] Last Admin: 02/14/20 16:13 Dose: 325 mg Documented by: Folic Acid (Folic Acid 1 Mg Tab) 1 mg PO DAILY [facility] Last Admin: 02/14/20 09:51 Dose: Not Given Documented by: Heparin Sodium (Porcine) (Heparin Sodium,Porcine 5,000 Unit/Ml 1 Ml Vial) 0 unit IV PER PROTOCOL PRN; Protocol PRN Reason: Low PTT Last Admin: 02/12/20 21:55 Dose: 2,900 unit Documented by: Hydromorphone HCl (Hydromorphone 1 Mg/Ml 1 Ml Syringe) 1 mg IVP Q3HR PRN PRN Reason: Pain Lactated Ringer's (Lactated Ringers) 1,000 mls @ 20 mls/hr IV .Q24H [facility] Last Admin: 02/14/20 05:57 Dose: Not Given Documented by: Ropivacaine 250 mg/Hydromorphone HCl 5 mg/ Sodium Chloride 250 mls @ 0 mls/hr EPIDURAL .Q0M PRN; Protocol PRN Reason: Pain Control Last Admin: 02/09/20 17:33 Dose: 6 mls/hr Documented by: Piperacillin Sod/Tazobactam (Sod 3.375 gm/ Sodium Chloride) 100 mls @ 25 mls/hr IVPB Q8HR [facility] Last Admin: 02/14/20 16:13 Dose: 25 mls/hr Documented by: Heparin Sodium/Sodium Chloride (25,000 unit/ Sodium Chloride) 250 mls @ 6.96 mls/hr IV .Q24H [facility]; Protocol Last Titration: 02/14/20 15:35 Dose: 15 units/kg/hr, 8.7 mls/hr Documented by: Dextrose/Sodium Chloride (Dextrose 5%-Ns Iv Soln) 1,000 mls @ 75 mls/hr IV .[id number] [facility] Last Admin: 02/14/20 19:20 Dose: Not Given Documented by: Lidocaine HCl (Lidocaine 1% (10mg/Ml) For Iv Start) 0.1 ml INTRADERMA PER PROTOCOL PRN PRN Reason: IV Start Last Admin: 02/07/20 08:28 Dose: 0.1 ml Documented by: Lorazepam (Lorazepam 2 Mg/Ml Inj) 1 mg IV Q2HR PRN PRN Reason: CIWA 8 or 9 Last Admin: 02/13/20 01:48 Dose: 1 mg Documented by: Lorazepam (Lorazepam 2 Mg/Ml Inj) 1 mg IV Q1HR PRN PRN Reason: CIWA 10 to 15 Last Admin: 02/12/20 18:23 Dose: 1 mg Documented by: Metoclopramide HCl (Metoclopramide 5 Mg/Ml 2 Ml Vial) 10 mg IVP Q6HR PRN PRN Reason: Nausea and Vomiting Metoprolol Succinate (Metoprolol Succinate (Er) 25 Mg Tab.Er.24h) 25 mg PO DAILY [facility] Last Admin: 02/14/20 09:51 Dose: Not Given Documented by: Miscellaneous Information (Magnesium Replacement Protocol 1 Each Misc) 1 each MISCELLANE DAILY PRN; Protocol PRN Reason: Per Protocol Miscellaneous Information (Potassium Replacement Protocol 1 Each Misc) 1 each MISCELLANE DAILY PRN; Protocol PRN Reason: Per Protocol Multivitamins (Multivitamins, Thera 1 Each Tab) 1 each PO DAILY [facility] Last Admin: 02/14/20 09:51 Dose: Not Given Documented by: Naloxone HCl (Naloxone 0.4 Mg/Ml 1 Ml Vial) 0.2 mg IV Q2M PRN PRN Reason: Opioid Reversal Nicotine (Nicotine 21mg/24hr Patch) 1 patch TRANSDERM DAILY [facility] Last Admin: 02/14/20 09:20 Dose: 1 patch Documented by: Nicotine Polacrilex (Nicotine Polacrilex 2 Mg Gum) 2 mg BUCCAL Q4HR PRN PRN Reason: Nicotine Cravings Ondansetron HCl (Ondansetron 4 Mg/2 Ml Vial) 4 mg IVP Q8HR PRN PRN Reason: Nausea And Vomiting Pantoprazole Sodium (Pantoprazole 40 Mg/10 Ml Vial) 40 mg IVP BID [facility] Last Admin: 02/14/20 21:12 Dose: 40 mg Documented by: Thiamine HCl (Thiamine 100 Mg Tab) 100 mg PO BID-W/MEALS [facility] Last Admin: 02/14/20 16:13 Dose: 100 mg Documented by: Physical examination: VITAL SIGNS: 98.5, 1 or 2, 16, 114/66, 97% on 3 L GENERAL:laying in bed, awake, comfortable EYES: Pupils equal. Conjunctiva normal. HEENT: External appearance of nose and ears normal, oral cavity grossly normal. NECK: JVD not raised; masses not palpable. HEART: First and second heart sounds are normal; no edema. LUNGS: Respiratory rate normal; decreased breath sounds. ABDOMEN: Soft, nontender: Dressing over the incision, liver spleen not palpable, no masses palpable. PSYCH: Alert and oriented x3; mood and affect normal. INVESTIGATIONS, reviewed in the clinical context: white count 16.3 hemoglobin 8.6 potassium 3.1 creatinine 0.4 Previous testing EEG shows evidence of encephalopathy Computed tomography scan of the brain-mild atrophy 2-D echocardiogram-EF 55-60% VQ scan-intermediate probability Chest CTA-suboptimal study. Doppler ultrasound-positive for thrombus within the distal popliteal vein White count 10.2 hemoglobin 14.2 potassium 3.6 B12 some 08 Previously AST 129 ALT 50 Computed tomography scan of the abdomen from January 08-possible colitis, diverticulitis, some esophagitis, hepatic steatosis Assessment: -Status post low anterior resection, for diverticulitis complication -Chronic nicotine dependence patient cigarette smoker -Clinical emphysema, asymptomatic -Suspect alcoholic hepatitis -Mild hyponatremia -Macrocytic anemia. -Acute DVT in the left distal popliteal vein -Acute alcohol withdrawal syndrome with improvement -IV heparin monitoring Plan: EGD was unremarkable. keep the patient on IV heparin. Make sure there is no bleeding. Otherwise patient to be swished over to oral anticoagulated, and 24 hours
--- NOTE | 2020-02-14 22:45 | PN ---
PROGRESS NOTE DATE OF SERVICE: 02/14/2020 REASON FOR FOLLOWUP: Leukocytosis, possible pneumonia. Abdominal infection. INTERVAL HISTORY: Patient is currently afebrile. The patient is more awake and alert. He is breathing comfortably. Patient denies having any chest pain. No shortness of breath. Minimal cough. Denies any abdominal pain, vomiting or diarrhea. PHYSICAL EXAMINATION: Blood pressure 114/56, pulse of 102. Temperature 98.5. He is 97% on 3 L nasal cannula. General description: The patient is a middle-aged male lying in bed in no distress. Respiratory system: Unlabored breathing, decreased breath sounds in bases. No wheeze. Heart S1, S2. Regular rate and rhythm. ABDOMEN: Soft, no tenderness. LABS: Hemoglobin 8.6, white count 16.3, BUN of 12, creatinine 0.4. Blood culture has been negative. DIAGNOSTIC IMPRESSION AND PLAN: Patient with leukocytosis which is multifactorial in this patient who did have possible pneumonia and with some drainage from abdominal surgery, this patient is covered with Zosyn to continue and monitor clinical course closely. MMODL / IJN: [id number] /
[2020-02-15] MEDS: PIPERACILLIN-TAZOBACTAM 3.375 GM in SODIUM CHLORIDE 0.9% 100 ML IVPB SCH ×3 (00:33→15:55)
[2020-02-15] MEDS: DEXTROSE 5%-0.9% NACL 1,000 ML IV SCH ×3 (00:38→20:32)
[2020-02-15] MEDS: HEPARIN SOD,PORK IN 0.45% NACL 25,000 UNIT in 0.45% NACL 1 250ML.BAG IV SCH ×2 (05:24→10:01)
[2020-02-15] MEDS: THIAMINE 100 MG TAB PO SCH ×2 (07:41→15:55)
[2020-02-15] MEDS: FERROUS SULFATE 325 MG TAB PO SCH ×2 (07:41→15:55)
[2020-02-15] MEDS: PANTOPRAZOLE 40 MG/10 ML VIAL IVP SCH ×2 (08:19→20:32)
[2020-02-15] MEDS: BACLOFEN 10 MG TAB PO SCH ×2 (08:19→20:32)
[2020-02-15] MEDS: NICOTINE 21MG/24HR PATCH TRANSDERM SCH (08:19)
[2020-02-15] MEDS: MULTIVITAMINS, THERA 1 EACH TAB PO SCH (08:19)
[2020-02-15] MEDS: METOPROLOL SUCCINATE (ER) 25 MG TAB.ER.24H PO SCH (08:19)
[2020-02-15] MEDS: FOLIC ACID 1 MG TAB PO SCH (08:19)
[2020-02-15 08:33] LABS: Basophils % (A) 0 %; Eosinophils # (A) 0.2 k/uL (0-0.7); Eosinophils % (A) 1 %; HCT 28.3 % (39.0-53.0); Hypochromasia Moderate; Lymphocytes # (A) 2.7 k/uL (1.0-4.8); Lymphocytes % (A) 15 %; MCH 35.8 pg (25.0-35.0); MCHC 31.9 g/dL (31.0-37.0); MCV 112.5 fL (80.0-100.0); Macrocytosis Marked; Mean Platelet Volume 8.9; Monocytes # (A) 1.2 k/uL (0-1.0); Monocytes % (A) 7 %; Neutrophils # (A) 13.3 k/uL (1.3-7.7); Neutrophils % (A) 75 %; Platelet Count 364 k/uL (150-450); RBC 2.51 m/uL (4.30-5.90); RDW 15.9 % (11.5-15.5); WBC 17.6 k/uL (3.8-10.6)
[2020-02-15] MEDS: LACTATED RINGERS 1,000 ML IV SCH (08:33)
[2020-02-15] MEDS ORDERED: HEPARIN SODIUM,PORCINE 5,000 UNIT/ML 1 ML VIAL IV STA (09:48)
[2020-02-15 11:17] LABS: African American GFR (CKD) 146.5 (60.0-200.0); Albumin 2.2 g/dL (3.80-4.90); Albumin/Globulin Ratio 1.1 (1.60-3.17); Anion Gap 9.2 mmol/L (4.00-12.00); BUN/Creat Ratio 17.5 Ratio (12.00-20.00); Calcium 7.2 mg/dL (8.7-10.3); Carbon Dioxide 17.8 mmol/L (21.6-31.8); Magnesium 1.7 mg/dL (1.5-2.4); Non-African American GFR(CKD) 126.4 (60.0-200.0); Potassium 3.5 mmol/L (3.5-5.5); Total Bilirubin 0.5 mg/dL (0.3-1.2); Total Protein 4.2 g/dL (6.2-8.2)
--- NOTE | 2020-02-15 14:35 | P.PN ---
Subjective Progress Note Date: 02/15/20 Principal diagnosis: Intermediate probability VQ scan, rule out possibility of pulmonary embolism This is a 64-year-old white male patient status post low anterior resection for strictures and diverticular disease, and this is postoperative day #6. Following his surgery on February 08 patient had a thrombus discomfort within the distal popliteal vein in his left leg, on the liver night patient had a CT angiogram of the chest which was a suboptimal study and did not reveal any large saddle all of central pulmonary emboli. The computed tomography scan showed evidence of small bilateral pleural effusions and multifocal groundglass opacities that could relate to pulmonary edema and/or pneumonia. His chest x- ray from February 11 showed bilateral infiltrates that could be consistent with pneumonia or heart failure. VQ scan showed indeterminate probability for pulmonary embolism. Patient has been confused, apparently he does have history of chronic EtOH, but it has been 60 since his admission, he remains very confused, he is on 3 L of oxygen and the pulse ox of 95%, he was started on heparin infusion for DVT in his left leg. We did not think there was a pulmonar y embolism based on his workup. His brain CT showed no acute intracranial abnormality. In addition there is a possibility of GI bleeding as the patient has been passing some dark stools. Is not appear to be in any respiratory distress, he remains lethargic, confused. Neurology is following, EEGs in progress. Dr. Araujo is planning on EGD tomorrow for evaluation of black stools. On 02/14/2020 patient seen in follow-up on general medical surgical floor his heparin drip is off, his 0.9 normal saline running at 75 ML per hour, appears to be more awake on today's exam, although still confused, she is only oriented to percent, no agitation. No signs of respiratory difficulty, he is on 3 L of oxygen pulse ox is 95%, hemodynamically stable, his abdomen is slightly tender postsurgery, his incision covered with dressing, his been afebrile, breathing is nonlabored, lung sounds reveal a few basilar crackles, no rhonchi or wheezing. Surgery is planned and on EGD today, neurology is following, EEG revealed background slowing of moderate degree suggestive of generalized cerebral dysfunction related to toxic metabolic encephalopathy. Today's hemoglobin is 8.6, had one bowel movement this morning. On 02/15/2020 patient seen in follow-up on general medical surgical floor, patient had EGD done yesterday which did not reveal any active bleeding, patient was restarted on heparin infusion for evidence of DVT in his lower extremity, no worsening dyspnea, patient is still on and off lethargic, but appears to be in no acute distress. He is on 3 L of oxygen pulse ox of 95%, his been afebrile, completed chest pain. No hemoptysis. Today's hemoglobin is 9.0. Objective - Vital Signs Vital signs: Vital Signs Temp 97.9 F 02/15/20 07:00 Pulse 111 H 02/15/20 07:28 Resp 17 02/15/20 07:28 BP 112/72 02/15/20 07:00 Pulse Ox 95 02/15/20 07:00 Intake & Output 02/14/20 02/15/20 02/15/20 18:59 06:59 18:59 Intake Total 167.545 120.205 40.165 Output Total 400 Balance 167.545 -279.795 40.165 Intake: IV 50 Intake, IV Titration 117.545 120.205 40.165 Amount Heparin Sod,Pork in 0.45% 17.545 120.205 40.165 NaCl 25,000 unit In 0.45 % NaCl 1 250ml.bag @ 12 UNITS/KG/HR 6.96 mls/hr IV .Q24H [facility] Rx#: [id number] Piperacillin-Tazobactam 3 100 .375 gm In Sodium Chloride 0.9% 100 ml @ 25 mls/hr IVPB Q8HR [facility] Rx# :[id number] Output: Urine 400 Other: Voiding Method Indwelling Catheter Indwelling Catheter Indwelling Catheter - Exam GENERAL EXAM: drowsy, confused, 64-year-old white male, only oriented to person a 3 L of oxygen pulse ox of 95%, in the process of having the EEG comfortable in no apparent distress. HEAD: Normocephalic/atraumatic. EYES: Normal reaction of pupils, equal size. Conjunctiva pink, sclera white. NOSE: Clear with pink turbinates. THROAT: No erythema or exudates. NECK: No masses, no JVD, no thyroid enlargement, no adenopathy. CHEST: No chest wall deformity. Symmetrical expansion. LUNGS: Equal air entry with no crackles, wheeze, rhonchi or dullness. CVS: Regular rate and rhythm, normal S1 and S2, no gallops, no murmurs, no rubs ABDOMEN: Soft, nontender. No hepatosplenomegaly, normal bowel sounds, no guarding or rigidity. Abdominal incision is clean dry and intact, with some [place] drainage from the incision EXTREMITIES: No clubbing, no edema, no cyanosis, 2+ pulses and upper and lower extremities. MUSCULOSKELETAL: Muscle strength and tone normal. SPINE: No scoliosis or deformity SKIN: No rashes CENTRAL NERVOUS SYSTEM: More awake on today's exam, very confused No focal deficits, tone is normal in all 4 extremities. - Labs CBC & Chem 7: 02/15/20 07:05 02/15/20 07:05 Labs: Abnormal Lab Results - Last 24 Hours (Table) 02/14/20 02/15/20 02/15/20 Range/Units 22:06 07:05 07:05 WBC 17.6 H (3.8-10.6) k/uL RBC 2.51 L (4.30-5.90) m/uL Hgb 9.0 L (13.0-17.5) gm/dL Hct 28.3 L (39.0-53.0) % MCV 112.5 H (80.0-100.0) fL MCH 35.8 H (25.0-35.0) pg RDW 15.9 H (11.5-15.5) % Neutrophils # 13.3 H (1.3-7.7) k/uL Monocytes # 1.2 H (0-1.0) k/uL Macrocytosis Marked A APTT 46.3 H 39.4 H (22.0-30.0) sec Chloride (96-109) mmol/L Carbon Dioxide (21.6-31.8) mmol/L BUN (9.0-27.0) mg/dL Creatinine (0.6-1.5) mg/dL Glucose (70-110) mg/dL Calcium (8.7-10.3) mg/dL AST (14-35) U/L Total Protein (6.2-8.2) g/dL Albumin (3.80-4.90) g/dL Albumin/Globulin Ratio (1.60-3.17) g/dL 02/15/20 Range/Units 07:05 WBC (3.8-10.6) k/uL RBC (4.30-5.90) m/uL Hgb (13.0-17.5) gm/dL Hct (39.0-53.0) % MCV (80.0-100.0) fL MCH (25.0-35.0) pg RDW (11.5-15.5) % Neutrophils # (1.3-7.7) k/uL Monocytes # (0-1.0) k/uL Macrocytosis APTT (22.0-30.0) sec Chloride 113 H (96-109) mmol/L Carbon Dioxide 17.8 L (21.6-31.8) mmol/L BUN 7.0 L (9.0-27.0) mg/dL Creatinine 0.4 L (0.6-1.5) mg/dL Glucose 114 H (70-110) mg/dL Calcium 7.2 L (8.7-10.3) mg/dL AST 44 H (14-35) U/L Total Protein 4.2 L (6.2-8.2) g/dL Albumin 2.20 L (3.80-4.90) g/dL Albumin/Globulin Ratio 1.10 L (1.60-3.17) g/dL Microbiology - Last 24 Hours (Table) 02/11/20 15:39 Blood Culture - Preliminary Blood No Growth after 72 hours 02/11/20 15:43 Blood Culture - Preliminary Blood No Growth after 72 hours Assessment and Plan Plan: Assessment: #1. Elevated d-dimer, nonspecific, doubt possibility of pulmonary embolism. CTA chest was suboptimal but did not reveal any evidence of central pulmonary embolism, VQ scan showed intermediate probability for pulmonary embolism #2. Diverticulitis, status post lower anterior resection, takedown of splenic flexure and partial omentectomy #3. Alcohol abuse with alcohol withdrawal #4. New left leg DVT anticoagulated with IV heparin #5. Dark black stools the possibility of upper GI bleeding #6. Possible ileus #7. Altered mental status, possibly related to metabolic encephalopathy, neurol ogy is following #8. History of varicose veins #9. History of vitiligo #10. History of diverticular disease #11. History of EtOH abuse Plan: From pulmonary perspective patient can be switched over to oral anticoagulation Xa inhibitor if cleared by GI service, no worsening dyspnea, vital signs have been stable, pulmonary service will sign off and follow on as-needed basis. I performed a history & physical examination of the patient and discussed their management with my nurse practitioner, Felipa Matute. I reviewed the nurse practitioner's note and agree with the documented findings and plan of care. Lung sounds are positive for clear breath sounds throughout the lung arias. The findings and the impression was discussed with the patient. I attest to the documentation by the nurse practitioner. Time with Patient: Less than 30
--- NOTE | 2020-02-15 14:40 | P.PN ---
Subjective Progress Note Date: 02/15/20 CHIEF COMPLAINT: Diverticulitis HISTORY OF PRESENT ILLNESS: Patient is status post lower anterior resection, takedown of splenic flexure and partial omentectomy. Patient is less confused today. He is able to answer questions appropriately. He had EGD completed yesterday. Which was essentially normal EGD without evidence of upper GI bleed. He's been restarted on the IV heparin for his leg DVT. He denies any nausea or vomiting. He does report abdominal pain. But he feels the pain is starting to improve. He is on a regular diet. He is only eating a few bites of his meals. No further black stools. His dressings are saturated. Per nursing staff there is saturated with a clear fluid and they're changing the dressing almost every hour. PHYSICAL EXAM: VITAL SIGNS: Reviewed. GENERAL: Well-developed in no acute distress. HEENT: No sclera icterus. Extraocular movements grossly intact. Moist buccal mucosa. Head is atraumatic, normocephalic. ABDOMEN: clear drainage from incision due to ascites. Distended. Tender around incision site. NEUROLOGIC: Patient is alert and orientated to 3. Less confused today ASSESSMENT: 1. Diverticulitis status post lower anterior resection, takedown of splenic flexure and partial omentectomy 2. Alcohol abuse with alcohol withdrawal 3. New left leg DVT anticoagulated with IV heparin. Hematology following 4. Possible ileus 5. Black stools. Resolved. No evidence of upper GI bleed on EGD. EGD was normal 6. Altered mental status likely due to alcohol withdrawal syndrome. Patient evaluated by neurology 7. Hypokalemia lab pending PLAN: -It is okay to start oral anticoagulation from surgical standpoint -Continue regular diet -Continue CIWA protocol with Ativan, thiamine and multivitamin for alcohol abuse -GI prophylaxis Pepcid Physician Crm Administrator note has been reviewed by physician. Signing provider agrees with the documented findings, assessment, and plan of care. Objective - Vital Signs Vital signs: Vital Signs Temp 97.9 F 02/15/20 07:00 Pulse 111 H 02/15/20 07:28 Resp 17 02/15/20 07:28 BP 112/72 02/15/20 07:00 Pulse Ox 95 02/15/20 07:00 Intake & Output 02/14/20 02/15/20 02/15/20 18:59 06:59 18:59 Intake Total 167.545 120.205 40.165 Output Total 400 Balance 167.545 -279.795 40.165 Intake: IV 50 Intake, IV Titration 117.545 120.205 40.165 Amount Heparin Sod,Pork in 0.45% 17.545 120.205 40.165 NaCl 25,000 unit In 0.45 % NaCl 1 250ml.bag @ 12 UNITS/KG/HR 6.96 mls/hr IV .Q24H [facility] Rx#: [id number] Piperacillin-Tazobactam 3 100 .375 gm In Sodium Chloride 0.9% 100 ml @ 25 mls/hr IVPB Q8HR [facility] Rx# :[id number] Output: Urine 400 Other: Voiding Method Indwelling Catheter Indwelling Catheter Indwelling Catheter - Labs CBC & Chem 7: 02/15/20 07:05 02/15/20 07:05 Labs: Abnormal Lab Results - Last 24 Hours (Table) 02/12/20 02/14/20 02/15/20 Range/Units 06:55 22:06 07:05 WBC (3.8-10.6) k/uL RBC (4.30-5.90) m/uL Hgb (13.0-17.5) gm/dL Hct (39.0-53.0) % MCV (80.0-100.0) fL MCH (25.0-35.0) pg RDW (11.5-15.5) % Neutrophils # (1.3-7.7) k/uL Monocytes # (0-1.0) k/uL Macrocytosis APTT 46.3 H 39.4 H (22.0-30.0) sec Albumin (PEP) 1.64 L (3.80-4.90) g/dL Tpare-3-Ifqfkfluu 0.51 L (0.60-1.00) g/dL Gamma Globulins 0.69 L (0.70-1.50) g/dL 02/15/20 Range/Units 07:05 WBC 17.6 H (3.8-10.6) k/uL RBC 2.51 L (4.30-5.90) m/uL Hgb 9.0 L (13.0-17.5) gm/dL Hct 28.3 L (39.0-53.0) % MCV 112.5 H (80.0-100.0) fL MCH 35.8 H (25.0-35.0) pg RDW 15.9 H (11.5-15.5) % Neutrophils # 13.3 H (1.3-7.7) k/uL Monocytes # 1.2 H (0-1.0) k/uL Macrocytosis Marked A APTT (22.0-30.0) sec Albumin (PEP) (3.80-4.90) g/dL Pvpea-9-Pmitsxrmu (0.60-1.00) g/dL Gamma Globulins (0.70-1.50) g/dL Microbiology - Last 24 Hours (Table) 02/11/20 15:39 Blood Culture - Preliminary Blood No Growth after 72 hours 02/11/20 15:43 Blood Culture - Preliminary Blood No Growth after 72 hours
--- NOTE | 2020-02-15 14:55 | P.PN ---
Subjective Progress Note Date: 02/15/20 Patient was seen for a follow-up. Patient's sleeping at this time but according to the nurse aide/student, patient earlier was very alert and oriented, knew his name, date of and that what medications he is taking. He knew the month and that he is in the hospital. He moves all 4 extremities. No seizure-like activity. Patient told the nurse student, that he is going to take a nap. Objective - Vital Signs Vital signs: Vital Signs Temp 97.4 F L 02/15/20 14:41 Pulse 95 02/15/20 14:41 Resp 16 02/15/20 14:41 BP 114/73 02/15/20 14:41 Pulse Ox 95 02/15/20 14:41 Intake & Output 02/14/20 02/15/20 02/15/20 18:59 06:59 18:59 Intake Total 167.545 120.205 40.165 Output Total 400 1 Balance 167.545 -279.795 39.165 Intake: IV 50 Intake, IV Titration 117.545 120.205 40.165 Amount Heparin Sod,Pork in 0.45% 17.545 120.205 40.165 NaCl 25,000 unit In 0.45 % NaCl 1 250ml.bag @ 12 UNITS/KG/HR 6.96 mls/hr IV .Q24H [facility] Rx#: [id number] Piperacillin-Tazobactam 3 100 .375 gm In Sodium Chloride 0.9% 100 ml @ 25 mls/hr IVPB Q8HR [facility] Rx# :[id number] Output: Urine 400 Stool 1 Other: Voiding Method Indwelling Catheter Indwelling Catheter Indwelling Catheter - Exam Patient is asleep at this time. - Labs CBC & Chem 7: 02/15/20 07:05 02/15/20 07:05 Labs: Abnormal Lab Results - Last 24 Hours (Table) 02/14/20 02/15/20 02/15/20 Range/Units 22:06 07:05 07:05 WBC 17.6 H (3.8-10.6) k/uL RBC 2.51 L (4.30-5.90) m/uL Hgb 9.0 L (13.0-17.5) gm/dL Hct 28.3 L (39.0-53.0) % MCV 112.5 H (80.0-100.0) fL MCH 35.8 H (25.0-35.0) pg RDW 15.9 H (11.5-15.5) % Neutrophils # 13.3 H (1.3-7.7) k/uL Monocytes # 1.2 H (0-1.0) k/uL Macrocytosis Marked A APTT 46.3 H 39.4 H (22.0-30.0) sec Chloride (96-109) mmol/L Carbon Dioxide (21.6-31.8) mmol/L BUN (9.0-27.0) mg/dL Creatinine (0.6-1.5) mg/dL Glucose (70-110) mg/dL Calcium (8.7-10.3) mg/dL AST (14-35) U/L Total Protein (6.2-8.2) g/dL Albumin (3.80-4.90) g/dL Albumin/Globulin Ratio (1.60-3.17) g/dL 02/15/20 Range/Units 07:05 WBC (3.8-10.6) k/uL RBC (4.30-5.90) m/uL Hgb (13.0-17.5) gm/dL Hct (39.0-53.0) % MCV (80.0-100.0) fL MCH (25.0-35.0) pg RDW (11.5-15.5) % Neutrophils # (1.3-7.7) k/uL Monocytes # (0-1.0) k/uL Macrocytosis APTT (22.0-30.0) sec Chloride 113 H (96-109) mmol/L Carbon Dioxide 17.8 L (21.6-31.8) mmol/L BUN 7.0 L (9.0-27.0) mg/dL Creatinine 0.4 L (0.6-1.5) mg/dL Glucose 114 H (70-110) mg/dL Calcium 7.2 L (8.7-10.3) mg/dL AST 44 H (14-35) U/L Total Protein 4.2 L (6.2-8.2) g/dL Albumin 2.20 L (3.80-4.90) g/dL Albumin/Globulin Ratio 1.10 L (1.60-3.17) g/dL Microbiology - Last 24 Hours (Table) 02/11/20 15:39 Blood Culture - Preliminary Blood No Growth after 72 hours 02/11/20 15:43 Blood Culture - Preliminary Blood No Growth after 72 hours Assessment and Plan Assessment: * Altered mental status, likely due to alcohol withdrawal syndrome. * History of polysubstance abuse including alcohol, tobacco and perhaps marijuana. * Diverticulitis status post lower anterior resection, takedown of splenic flexure and partial omentectomy * Acute DVT left lower extremity, on IV heparin. * Folate deficiency Plan: * EEG showed moderate background slowing consistent with encephalopathy, no epileptiform activity seen. * Patient appears slightly more mentally clear. Hopefully will improve gradually. Avoid excessive sedation. * CT head showed mild generalized atrophy. No acute intracranial process. * Continue folic acid 1 mg daily for folic acid deficiency. * Continue thiamine and multivitamins. * PT and OT when able to cooperate. * Neurology coverage not available on the weekend.
--- NOTE | 2020-02-15 17:24 | P.PN ---
Progress Note - Text Progress Note Date: 02/15/20 - Chief Complaint Abdominal surgery History of presenting complaint: This is a pleasant 64-year-old patient of . Patient been having complication to his diverticulitis. computed tomography scan on January 08. Showed some possible stricture. Hepatic steatosis. February 06- undergone low anterior resection. Epidural for pain control.patient had elevated d-dimer. Pulmonary embolism felt to be unlikely. CT was suboptimal. VQ scan was intermediate probability. Leg DVT treated with IV heparin. Had some dark stools.also patient had had altered mental status. [place] to be encephalopathy.computed tomography scan of the brain was unremarkable. EGD-no evidence of bleeding. Today-l laying in bed. A bit tired. No pain. Decreased by mouth intake. Review of systems: Was done for constitutional, cardiovascular, GI, pulmonary. relevant finding as above Active Medications Hydrocodone Bitart/Acetaminophen (Hydrocodone/Apap 5-325mg 1 Each Tab) 1 each PO Q4HR PRN PRN Reason: Pain Last Admin: 02/14/20 16:28 Dose: 1 each Documented by: Baclofen (Baclofen 10 Mg Tab) 5 mg PO TID [facility] Benzocaine/Menthol (Benzocaine/Menthol Lozeng 1 Each Lozenge) 1 each MUCOUS MEM Q1HR PRN PRN Reason: Sore Throat Ferrous Sulfate (Ferrous Sulfate 325 Mg Tab) 325 mg PO BID-W/MEALS [facility] Last Admin: 02/15/20 15:55 Dose: 325 mg Documented by: Folic Acid (Folic Acid 1 Mg Tab) 1 mg PO DAILY [facility] Last Admin: 02/15/20 08:19 Dose: 1 mg Documented by: Lactated Ringer's (Lactated Ringers) 1,000 mls @ 20 mls/hr IV .Q24H [facility] Last Admin: 02/15/20 08:33 Dose: Not Given Documented by: Ropivacaine 250 mg/Hydromorphone HCl 5 mg/ Sodium Chloride 250 mls @ 0 mls/hr EPIDURAL .Q0M PRN; Protocol PRN Reason: Pain Control Last Admin: 02/09/20 17:33 Dose: 6 mls/hr Documented by: Dextrose/Sodium Chloride (Dextrose 5%-Ns Iv Soln) 1,000 mls @ 75 mls/hr IV .[id number] [facility] Last Admin: 02/15/20 05:27 Dose: 75 mls/hr Documented by: Lidocaine HCl (Lidocaine 1% (10mg/Ml) For Iv Start) 0.1 ml INTRADERMA PER PROTOCOL PRN PRN Reason: IV Start Last Admin: 02/07/20 08:28 Dose: 0.1 ml Documented by: Lorazepam (Lorazepam 2 Mg/Ml Inj) 1 mg IV Q2HR PRN PRN Reason: CIWA 8 or 9 Last Admin: 02/13/20 01:48 Dose: 1 mg Documented by: Lorazepam (Lorazepam 2 Mg/Ml Inj) 1 mg IV Q1HR PRN PRN Reason: CIWA 10 to 15 Last Admin: 02/12/20 18:23 Dose: 1 mg Documented by: Metoclopramide HCl (Metoclopramide 5 Mg/Ml 2 Ml Vial) 10 mg IVP Q6HR PRN PRN Reason: Nausea and Vomiting Metoprolol Succinate (Metoprolol Succinate (Er) 25 Mg Tab.Er.24h) 25 mg PO DAILY [facility] Last Admin: 02/15/20 08:19 Dose: 25 mg Documented by: Miscellaneous Information (Magnesium Replacement Protocol 1 Each Misc) 1 each MISCELLANE DAILY PRN; Protocol PRN Reason: Per Protocol Miscellaneous Information (Potassium Replacement Protocol 1 Each Misc) 1 each MISCELLANE DAILY PRN; Protocol PRN Reason: Per Protocol Multivitamins (Multivitamins, Thera 1 Each Tab) 1 each PO DAILY [facility] Last Admin: 02/15/20 08:19 Dose: 1 each Documented by: Naloxone HCl (Naloxone 0.4 Mg/Ml 1 Ml Vial) 0.2 mg IV Q2M PRN PRN Reason: Opioid Reversal Nicotine (Nicotine 21mg/24hr Patch) 1 patch TRANSDERM DAILY [facility] Last Admin: 02/15/20 08:19 Dose: 1 patch Documented by: Nicotine Polacrilex (Nicotine Polacrilex 2 Mg Gum) 2 mg BUCCAL Q4HR PRN PRN Reason: Nicotine Cravings Ondansetron HCl (Ondansetron 4 Mg/2 Ml Vial) 4 mg IVP Q8HR PRN PRN Reason: Nausea And Vomiting Pantoprazole Sodium (Pantoprazole 40 Mg/10 Ml Vial) 40 mg IVP BID [facility] Last Admin: 02/15/20 08:19 Dose: 40 mg Documented by: Rivaroxaban (Rivaroxaban 15 Mg Tab) 15 mg PO BID-W/MEALS [facility] Thiamine HCl (Thiamine 100 Mg Tab) 100 mg PO BID-W/MEALS [facility] Last Admin: 02/15/20 15:55 Dose: 100 mg Documented by: Physical examination: VITAL SIGNS: 97.9, 100, 16, 120/72, 95% on 3 daughters GENERAL:laying in bed, sleepy EYES: Pupils equal. Conjunctiva normal. HEENT: External appearance of nose and ears normal, oral cavity grossly normal. NECK: JVD not raised; masses not palpable. HEART: First and second heart sounds are normal; no edema. LUNGS: Respiratory rate normal; decreased breath sounds. ABDOMEN: Soft, nontender: Dressing over the incision, liver spleen not palpable, no masses palpable. PSYCH: Sleepy INVESTIGATIONS, reviewed in the clinical context: White count 7.6 hemoglobin 9 potassium 3.5 crit and 0.4 Previous testing EEG shows evidence of encephalopathy Computed tomography scan of the brain-mild atrophy 2-D echocardiogram-EF 55-60% VQ scan-intermediate probability Chest CTA-suboptimal study. Doppler ultrasound-positive for thrombus within the distal popliteal vein White count 10.2 hemoglobin 14.2 potassium 3.6 B12 some 08 Previously AST 129 ALT 50 Computed tomography scan of the abdomen from January 08-possible colitis, diverticulitis, some esophagitis, hepatic steatosis Assessment: -Status post low anterior resection, for diverticulitis complication -Chronic nicotine dependence patient cigarette smoker -Clinical emphysema, asymptomatic -Suspect alcoholic hepatitis -Mild hyponatremia -Macrocytic anemia. -Acute DVT in the left distal popliteal vein -Acute alcohol withdrawal syndrome with improvement -IV heparin monitoring Plan: We'll cut back on patient's baclofen 25 mg 3 times a day. That might be making him sleepy periods DC IV Dilaudid. Start the patient is a well to this evening. Encourage oral intake.
[2020-02-15 17:32] LABS: Glucose,Whole Blood 123 mg/dL (75-99)
[2020-02-15] MEDS: RIVAROXABAN 15 MG TAB PO SCH (17:53)
--- NOTE | 2020-02-15 21:24 | P.PN ---
Subjective Progress Note Date: 02/15/20 Patient remains lethargic and drowsy, and difficult to arouse. He obeys commands only intermittently. Denied any pain at this time. Confirmed with nursing that last bowel movement did not show any evidence of bleeding. Objective - Vital Signs Vital signs: Vital Signs Temp 97.9 F 02/15/20 19:20 Pulse 97 02/15/20 19:25 Resp 14 02/15/20 19:20 BP 123/81 02/15/20 19:20 Pulse Ox 97 02/15/20 19:20 Intake & Output 02/15/20 02/15/20 02/16/20 06:59 18:59 06:59 Intake Total 120.205 323.803 Output Total 400 1 Balance -279.795 322.803 Weight 58 kg Intake: Intake, IV Titration 120.205 123.803 Amount Heparin Sod,Pork in 0.45% 120.205 123.803 NaCl 25,000 unit In 0.45 % NaCl 1 250ml.bag @ 12 UNITS/KG/HR 6.96 mls/hr IV .Q24H [facility] Rx#: [id number] Oral 200 Output: Urine 400 Stool 1 Other: Voiding Method Indwelling Catheter Indwelling Catheter Indwelling Catheter - Constitutional General appearance: Present: no acute distress - EENT Eyes: Present: EOMI ENT: Present: hearing grossly normal, normal oropharynx - Respiratory Respiratory: bilateral: CTA - Cardiovascular Rhythm: regular Heart sounds: normal: S1, S2 - Gastrointestinal General gastrointestinal: Present: normal bowel sounds, soft - Integumentary Integumentary: Present: normal - Neurologic Neurologic: Present: CNII-XII intact - Musculoskeletal Musculoskeletal: Present: generalized weakness, strength equal bilaterally - Psychiatric Psychiatric Comment(s): Mental status as noted in HPI - Labs CBC & Chem 7: 02/15/20 07:05 02/15/20 07:05 Labs: Abnormal Lab Results - Last 24 Hours (Table) 02/14/20 02/15/20 02/15/20 Range/Units 22:06 07:05 07:05 WBC 17.6 H (3.8-10.6) k/uL RBC 2.51 L (4.30-5.90) m/uL Hgb 9.0 L (13.0-17.5) gm/dL Hct 28.3 L (39.0-53.0) % MCV 112.5 H (80.0-100.0) fL MCH 35.8 H (25.0-35.0) pg RDW 15.9 H (11.5-15.5) % Neutrophils # 13.3 H (1.3-7.7) k/uL Monocytes # 1.2 H (0-1.0) k/uL Macrocytosis Marked A APTT 46.3 H 39.4 H (22.0-30.0) sec Chloride (96-109) mmol/L Carbon Dioxide (21.6-31.8) mmol/L BUN (9.0-27.0) mg/dL Creatinine (0.6-1.5) mg/dL Glucose (70-110) mg/dL POC Glucose (mg/dL) (75-99) mg/dL Calcium (8.7-10.3) mg/dL AST (14-35) U/L Total Protein (6.2-8.2) g/dL Albumin (3.80-4.90) g/dL Albumin/Globulin Ratio (1.60-3.17) g/dL 02/15/20 02/15/20 02/15/20 Range/Units 07:05 16:56 17:31 WBC (3.8-10.6) k/uL RBC (4.30-5.90) m/uL Hgb (13.0-17.5) gm/dL Hct (39.0-53.0) % MCV (80.0-100.0) fL MCH (25.0-35.0) pg RDW (11.5-15.5) % Neutrophils # (1.3-7.7) k/uL Monocytes # (0-1.0) k/uL Macrocytosis APTT 109.0 H* (22.0-30.0) sec Chloride 113 H (96-109) mmol/L Carbon Dioxide 17.8 L (21.6-31.8) mmol/L BUN 7.0 L (9.0-27.0) mg/dL Creatinine 0.4 L (0.6-1.5) mg/dL Glucose 114 H (70-110) mg/dL POC Glucose (mg/dL) 123 H (75-99) mg/dL Calcium 7.2 L (8.7-10.3) mg/dL AST 44 H (14-35) U/L Total Protein 4.2 L (6.2-8.2) g/dL Albumin 2.20 L (3.80-4.90) g/dL Albumin/Globulin Ratio 1.10 L (1.60-3.17) g/dL Microbiology - Last 24 Hours (Table) 02/11/20 15:43 Blood Culture - Preliminary Blood No Growth after 96 hours 02/11/20 15:39 Blood Culture - Preliminary Blood No Growth after 96 hours Assessment and Plan (1) Anemia Narrative/Plan: Current drop in hemoglobin appears to be related to acute blood loss, and postoperative state. Anemia workup otherwise negative. Hemoglobin has been stable since 02/14/20. EGD did not show any obvious source of bleeding. Assuming that recurrent bleeding does not occur, it is expected that hemoglobin should improve spontaneously increasing time since surgery. However hemoglobin recovery can be restarted if the patient resume significant alcohol use. Current Visit: Yes Status: Acute Code(s): D64.9 - ANEMIA, UNSPECIFIED SNOMED Code(s): 080305057 (2) Deep vein thrombosis of left lower extremity Narrative/Plan: Patient IV heparin without evidence of recurrent bleeding. Hemoglobin has been stable as noted above. Okay to transition to longer acting formulation. - Confirmed with nursing that oral intake is still very limited, though the patient has evidence of return of bowel activity. Therefore xarelto is not recommended as it may not be effective unless taken with food. Eliquis is reasonable option. Another option could be Lovenox while the patient is inpatient, with switch to orals once oral intake and GI function is better established - Clot is felt to be provoked and therefore at least 3 months of treatment is recommended. Patient can be reassessed an outpatient at that time to see if and declaration can be discontinued Current Visit: Yes Status: Acute Code(s): I82.402 - ACUTE EMBOLISM AND THOMBOS UNSP DEEP VEINS OF L LOW EXTREM SNOMED Code(s): 899396699
--- NOTE | 2020-02-15 22:40 | PN ---
PROGRESS NOTE DATE OF SERVICE: 02/15/2020 REASON FOR FOLLOWUP: Leukocytosis and possible pneumonia. INTERVAL HISTORY: Patient is currently afebrile. The patient is more awake and alert. He is breathing comfortably. Patient denies any chest pain. Did have some cough. No sputum. No vomiting. The patient did have some serous drainage from his abdominal incision in this patient with underlying ascites from his . The patient denies any worsening abdominal pain. No erythema around the incision per the nursing staff who just changed dressing. PHYSICAL EXAMINATION: Blood pressure is 123/81 with a pulse of 97, temperature 97.9. He is 97% on 3 L nasal cannula. General description is a middle-aged male lying in bed in no distress. Respiratory system: Unlabored breathing, clear to auscultation anteriorly. Heart S1, S2. Regular rate and rhythm. Abdomen soft, mildly distended. No guarding and no rigidity. LABS: Hemoglobin is 9, with white count 17.6, BUN of 7, creatinine 0.4. DIAGNOSTIC IMPRESSION AND PLAN: Patient with leukocytosis which is multifactorial in this patient who did have a possible component of pneumonia, possible aspiration etiology. Covered with Zosyn. White count monitored closely. Culture has been negative so far. MMODL / IJN: [id number] /
[2020-02-16] MEDS: LACTATED RINGERS 1,000 ML IV SCH (05:12)
[2020-02-16] MEDS: BACLOFEN 10 MG TAB PO SCH ×3 (07:50→20:06)
[2020-02-16] MEDS: FERROUS SULFATE 325 MG TAB PO SCH ×2 (07:51→18:08)
[2020-02-16] MEDS: PANTOPRAZOLE 40 MG/10 ML VIAL IVP SCH ×2 (07:51→20:06)
[2020-02-16] MEDS: MULTIVITAMINS, THERA 1 EACH TAB PO SCH (07:51)
[2020-02-16] MEDS: THIAMINE 100 MG TAB PO SCH ×2 (07:51→18:08)
[2020-02-16] MEDS: NICOTINE 21MG/24HR PATCH TRANSDERM SCH (07:51)
[2020-02-16] MEDS: RIVAROXABAN 15 MG TAB PO SCH ×2 (07:51→18:08)
[2020-02-16] MEDS: METOPROLOL SUCCINATE (ER) 25 MG TAB.ER.24H PO SCH (07:51)
[2020-02-16] MEDS: FOLIC ACID 1 MG TAB PO SCH (07:52)
--- NOTE | 2020-02-16 12:12 | XR ---
2 view abdomen HISTORY: Ileus 2 views the abdomen on 3 images No comparisons There are gas filled loops of bowel present. Surgical yvonne are present in the midline. Patchy dens ity present at the right lung base. No evident pneumoperitoneum. There are overlying cardiac leads. P ostop change noted to the left hip. Probable vascular calcifications in the pelvis. Patient is status post left hip arthroplasty. IMPRESSION: Findings could be indicative of ileus. Follow-up as indicated.
--- NOTE | 2020-02-16 15:10 | P.PN ---
Subjective Progress Note Date: 02/16/20 CHIEF COMPLAINT: Diverticulitis HISTORY OF PRESENT ILLNESS: The patient is a 64-year-old male with history alcoholism and had low anterior resection. He has been having ascites drainage for more than 2 days per discussion with nurse. Patient denies any significant abdominal pain. He has been in delirium tremens after surgery. He is tolerating Ensure. ROS: No reports of nausea and vomiting. He reports bowel movements. No fevers or chills. No new chest pain. No productive sputum PHYSICAL EXAM: VITAL SIGNS: Reviewed CONSTITUTIONAL: Well developed and in no acute distress. EYES: Conjuctivae without sclera icterus. Extraocular movements grossly intact. HEAD, EARS, NOSE, THROAT: Moist buccal mucosa. Head is atraumatic, normocephalic. Hears conversational speech. No nasal drainage. NECK: Supple. RESPIRATORY: Non-labored respirations and equal bilateral excursions. CARDIOVASCULAR: Palpable 2+ radial pulses. ABDOMEN: Nontender. Dressing intact. No peritonitis. MUSCULOSKELETAL: No gross deformity of the lower extremities noted. No clubbing. No cyanosis. SKIN: Good skin turgor. Well perfused. NEUROLOGIC: Cranial nerves II through XII grossly intact. No focal or lateralizing signs. PSYCH: Appropriate affect. Alert and oriented to person, place and time. CLINICAL LABS: White blood cell count elevated 17.6. RADIOLOGY: Abdominal Xray report shows ileus ASSESSMENT: 1. Ileus 2. Status post low anterior resection 3. Alcoholism 4. Ascites PLAN: 1. Continue diet 2. Stoma appliance for ascites drainage. 3. Continue IV antibiotics Objective - Vital Signs Vital signs: Vital Signs Temp 97.7 F 02/16/20 07:00 Pulse 101 H 02/16/20 07:00 Resp 16 02/16/20 07:00 BP 136/82 02/16/20 07:00 Pulse Ox 94 L 02/16/20 07:00 Intake & Output 02/15/20 02/16/20 02/16/20 18:59 06:59 18:59 Intake Total 861.895 4710 600 Output Total 1 404 Balance 546.916 2871 600 Weight 58 kg Intake: IV 1050 Dextrose 5%-0.9% NaCl 1, 1050 000 ml @ 75 mls/hr IV . [id number] [facility] Rx#:[id number] Intake, IV Titration 123.803 600 Amount Dextrose 5%-0.9% NaCl 1, 600 000 ml @ 75 mls/hr IV . [id number] [facility] Rx#:[id number] Heparin Sod,Pork in 0.45% 123.803 NaCl 25,000 unit In 0.45 % NaCl 1 250ml.bag @ 12 UNITS/KG/HR 6.96 mls/hr IV .Q24H [facility] Rx#: [id number] Oral 200 400 Output: Urine 400 Stool 1 4 Other: Voiding Method Indwelling Catheter Indwelling Catheter Indwelling Catheter - Labs CBC & Chem 7: 02/15/20 07:05 02/15/20 07:05 Labs: Abnormal Lab Results - Last 24 Hours (Table) 02/15/20 02/15/20 Range/Units 16:56 17:31 APTT 109.0 H* (22.0-30.0) sec POC Glucose (mg/dL) 123 H (75-99) mg/dL Microbiology - Last 24 Hours (Table) 02/11/20 15:43 Blood Culture - Preliminary Blood No Growth after 96 hours 02/11/20 15:39 Blood Culture - Preliminary Blood No Growth after 96 hours Assessment and Plan (1) Diverticulitis Current Visit: Yes Status: Acute Code(s): K57.92 - DVTRCLI OF INTEST, PART UNSP, W/O PERF OR ABSCESS W/O BLEED SNOMED Code(s): 898685387 (2) Ascites Current Visit: Yes Status: Acute Code(s): R18.8 - OTHER ASCITES SNOMED Code(s): 243997799 (3) Alcoholism Current Visit: Yes Status: Acute Code(s): F10.20 - ALCOHOL DEPENDENCE, UNCOMPLICATED SNOMED Code(s): 1644471 (4) Delirium tremens Current Visit: Yes Status: Acute Code(s): F10.231 - ALCOHOL DEPENDENCE WITH WITHDRAWAL DELIRIUM SNOMED Code(s): 7991938
--- NOTE | 2020-02-16 16:54 | P.PN ---
Subjective Progress Note Date: 02/16/20 Principal diagnosis: Intermediate probability VQ scan, rule out possibility of pulmonary embolism This is a 64-year-old white male patient status post low anterior resection for strictures and diverticular disease, and this is postoperative day #6. Following his surgery on February 08 patient had a thrombus discomfort within the distal popliteal vein in his left leg, on the liver night patient had a CT angiogram of the chest which was a suboptimal study and did not reveal any large saddle all of central pulmonary emboli. The computed tomography scan showed evidence of small bilateral pleural effusions and multifocal groundglass opacities that could relate to pulmonary edema and/or pneumonia. His chest x- ray from February 11 showed bilateral infiltrates that could be consistent with pneumonia or heart failure. VQ scan showed indeterminate probability for pulmonary embolism. Patient has been confused, apparently he does have history of chronic EtOH, but it has been 60 since his admission, he remains very confused, he is on 3 L of oxygen and the pulse ox of 95%, he was started on heparin infusion for DVT in his left leg. We did not think there was a pulmonar y embolism based on his workup. His brain CT showed no acute intracranial abnormality. In addition there is a possibility of GI bleeding as the patient has been passing some dark stools. Is not appear to be in any respiratory distress, he remains lethargic, confused. Neurology is following, EEGs in progress. Dr. Araujo is planning on EGD tomorrow for evaluation of black stools. On 02/14/2020 patient seen in follow-up on general medical surgical floor his heparin drip is off, his 0.9 normal saline running at 75 ML per hour, appears to be more awake on today's exam, although still confused, she is only oriented to percent, no agitation. No signs of respiratory difficulty, he is on 3 L of oxygen pulse ox is 95%, hemodynamically stable, his abdomen is slightly tender postsurgery, his incision covered with dressing, his been afebrile, breathing is nonlabored, lung sounds reveal a few basilar crackles, no rhonchi or wheezing. Surgery is planned and on EGD today, neurology is following, EEG revealed background slowing of moderate degree suggestive of generalized cerebral dysfunction related to toxic metabolic encephalopathy. Today's hemoglobin is 8.6, had one bowel movement this morning. On 02/15/2020 patient seen in follow-up on general medical surgical floor, patient had EGD done yesterday which did not reveal any active bleeding, patient was restarted on heparin infusion for evidence of DVT in his lower extremity, no worsening dyspnea, patient is still on and off lethargic, but appears to be in no acute distress. He is on 3 L of oxygen pulse ox of 95%, his been afebrile, completed chest pain. No hemoptysis. Today's hemoglobin is 9.0. The patient is seen today 02/16/2020 in follow-up on the regular medical floor. He was found to have a left lower extremity DVT. He is currently on Xarelto. He is maintaining good O2 saturation in the 90s on room air. He is afebrile. Hemodynamically stable. NicoDerm patch in place. Epidural for pain control. Objective - Vital Signs Vital signs: Vital Signs Temp 97.7 F 02/16/20 15:00 Pulse 99 02/16/20 15:00 Resp 18 02/16/20 15:00 BP 113/75 02/16/20 15:00 Pulse Ox 94 L 02/16/20 15:00 Intake & Output 02/15/20 02/16/20 02/16/20 18:59 06:59 18:59 Intake Total 988.040 4563 960 Output Total 1 404 800 Balance 237.928 3597 160 Weight 58 kg Intake: IV 1050 Dextrose 5%-0.9% NaCl 1, 1050 000 ml @ 75 mls/hr IV . [id number] [facility] Rx#:[id number] Intake, IV Titration 123.803 600 Amount Dextrose 5%-0.9% NaCl 1, 600 000 ml @ 75 mls/hr IV . [id number] [facility] Rx#:[id number] Heparin Sod,Pork in 0.45% 123.803 NaCl 25,000 unit In 0.45 % NaCl 1 250ml.bag @ 12 UNITS/KG/HR 6.96 mls/hr IV .Q24H [facility] Rx#: [id number] Oral 200 400 360 Output: Urine 400 800 Stool 1 4 Other: Voiding Method Indwelling Catheter Indwelling Catheter Indwelling Catheter - Exam GENERAL EXAM: drowsy, confused, 64-year-old white male, only oriented to person on room air, comfortable in no apparent distress. HEAD: Normocephalic/atraumatic. EYES: Normal reaction of pupils, equal size. Conjunctiva pink, sclera white. NOSE: Clear with pink turbinates. THROAT: No erythema or exudates. NECK: No masses, no JVD, no thyroid enlargement, no adenopathy. CHEST: No chest wall deformity. Symmetrical expansion. LUNGS: Equal air entry with no crackles, wheeze, rhonchi or dullness. CVS: Regular rate and rhythm, normal S1 and S2, no gallops, no murmurs, no rubs ABDOMEN: Soft, nontender. No hepatosplenomegaly, normal bowel sounds, no guarding or rigidity. Abdominal incision is clean dry and intact, with some [place] drainage from the incision EXTREMITIES: No clubbing, no edema, no cyanosis, 2+ pulses and upper and lower extremities. MUSCULOSKELETAL: Muscle strength and tone normal. SPINE: No scoliosis or deformity SKIN: No rashes CENTRAL NERVOUS SYSTEM: More awake on today's exam, very confused No focal deficits, tone is normal in all 4 extremities. - Labs CBC & Chem 7: 02/15/20 07:05 02/15/20 07:05 Labs: Abnormal Lab Results - Last 24 Hours (Table) 02/15/20 02/15/20 Range/Units 16:56 17:31 APTT 109.0 H* (22.0-30.0) sec POC Glucose (mg/dL) 123 H (75-99) mg/dL Microbiology - Last 24 Hours (Table) 02/11/20 15:43 Blood Culture - Preliminary Blood No Growth after 96 hours 02/11/20 15:39 Blood Culture - Preliminary Blood No Growth after 96 hours Assessment and Plan Assessment: #1. Elevated d-dimer, nonspecific, doubt possibility of pulmonary embolism. CTA chest was suboptimal but did not reveal any evidence of central pulmonary embolism, VQ scan showed intermediate probability for pulmonary embolism #2. Diverticulitis, status post lower anterior resection, takedown of splenic flexure and partial omentectomy #3. Alcohol abuse with alcohol withdrawal #4. New left leg DVT anticoagulated with Xarelto #5. Dark black stools the possibility of upper GI bleeding #6. Possible ileus #7. Altered mental status, possibly related to metabolic encephalopathy, neurology is following #8. History of varicose veins #9. History of vitiligo #10. History of diverticular disease #11. History of EtOH abuse Plan: The patient was seen and evaluated by Dr. Pelaez He has been transitioned to [facility] We'll see as needed I, the cosigning physician, performed a history & physical examination of the patient. Lungs sounds are clear. Maintaining good O2 saturations in the 90s on room air. I discussed the assessment and plan of care with my nurse practitioner, Ila Keene. I attest to the above note as dictated by her.
[2020-02-16] MEDS: DEXTROSE 5%-0.9% NACL 1,000 ML IV SCH (18:08)
--- NOTE | 2020-02-16 19:34 | P.PN ---
Progress Note - Text Progress Note Date: 02/16/20 - Chief Complaint Abdominal surgery History of presenting complaint: This is a pleasant 64-year-old patient of . Patient been having complication to his diverticulitis. computed tomography scan on January 08. Showed some possible stricture. Hepatic steatosis. February 06- undergone low anterior resection. Epidural for pain control.patient had elevated d-dimer. Pulmonary embolism felt to be unlikely. CT was suboptimal. VQ scan was intermediate probability. Leg DVT treated with IV heparin. Had some dark stools.also patient had had altered mental status. Donna to be encephalopathy.computed tomography scan of the brain was unremarkable. EGD-no evidence of bleeding. Patient more awake after dose of baclofen cutback. Swished over to xarelto. Today-oral intake about 25%. Which is improved. Abdominal distention. No bowel movement. Some flatus. Review of systems: Was done for constitutional, cardiovascular, GI, pulmonary. relevant finding as above Active Medications Hydrocodone Bitart/Acetaminophen (Hydrocodone/Apap 5-325mg 1 Each Tab) 1 each PO Q4HR PRN PRN Reason: Pain Last Admin: 02/14/20 16:28 Dose: 1 each Documented by: Baclofen (Baclofen 10 Mg Tab) 5 mg PO TID [facility] Last Admin: 02/16/20 18:08 Dose: 5 mg Documented by: Benzocaine/Menthol (Benzocaine/Menthol Lozeng 1 Each Lozenge) 1 each MUCOUS MEM Q1HR PRN PRN Reason: Sore Throat Ferrous Sulfate (Ferrous Sulfate 325 Mg Tab) 325 mg PO BID-W/MEALS [facility] Last Admin: 02/16/20 18:08 Dose: 325 mg Documented by: Folic Acid (Folic Acid 1 Mg Tab) 1 mg PO DAILY [facility] Last Admin: 02/16/20 07:52 Dose: 1 mg Documented by: Lactated Ringer's (Lactated Ringers) 1,000 mls @ 20 mls/hr IV .Q24H [facility] Last Admin: 02/16/20 05:12 Dose: Not Given Documented by: Ropivacaine 250 mg/Hydromorphone HCl 5 mg/ Sodium Chloride 250 mls @ 0 mls/hr EPIDURAL .Q0M PRN; Protocol PRN Reason: Pain Control Last Admin: 02/09/20 17:33 Dose: 6 mls/hr Documented by: Dextrose/Sodium Chloride (Dextrose 5%-Ns Iv Soln) 1,000 mls @ 75 mls/hr IV .[id number] [facility] Last Admin: 02/16/20 18:08 Dose: 75 mls/hr Documented by: Lidocaine HCl (Lidocaine 1% (10mg/Ml) For Iv Start) 0.1 ml INTRADERMA PER PROTOCOL PRN PRN Reason: IV Start Last Admin: 02/07/20 08:28 Dose: 0.1 ml Documented by: Lorazepam (Lorazepam 2 Mg/Ml Inj) 1 mg IV Q2HR PRN PRN Reason: CIWA 8 or 9 Last Admin: 02/13/20 01:48 Dose: 1 mg Documented by: Lorazepam (Lorazepam 2 Mg/Ml Inj) 1 mg IV Q1HR PRN PRN Reason: CIWA 10 to 15 Last Admin: 02/12/20 18:23 Dose: 1 mg Documented by: Metoclopramide HCl (Metoclopramide 5 Mg/Ml 2 Ml Vial) 10 mg IVP Q6HR PRN PRN Reason: Nausea and Vomiting Metoprolol Succinate (Metoprolol Succinate (Er) 25 Mg Tab.Er.24h) 25 mg PO DAILY [facility] Last Admin: 02/16/20 07:51 Dose: 25 mg Documented by: Miscellaneous Information (Magnesium Replacement Protocol 1 Each Misc) 1 each MISCELLANE DAILY PRN; Protocol PRN Reason: Per Protocol Miscellaneous Information (Potassium Replacement Protocol 1 Each Misc) 1 each MISCELLANE DAILY PRN; Protocol PRN Reason: Per Protocol Multivitamins (Multivitamins, Thera 1 Each Tab) 1 each PO DAILY [facility] Last Admin: 02/16/20 07:51 Dose: 1 each Documented by: Naloxone HCl (Naloxone 0.4 Mg/Ml 1 Ml Vial) 0.2 mg IV Q2M PRN PRN Reason: Opioid Reversal Nicotine (Nicotine 21mg/24hr Patch) 1 patch TRANSDERM DAILY [facility] Last Admin: 02/16/20 07:51 Dose: 1 patch Documented by: Nicotine Polacrilex (Nicotine Polacrilex 2 Mg Gum) 2 mg BUCCAL Q4HR PRN PRN Reason: Nicotine Cravings Ondansetron HCl (Ondansetron 4 Mg/2 Ml Vial) 4 mg IVP Q8HR PRN PRN Reason: Nausea And Vomiting Pantoprazole Sodium (Pantoprazole 40 Mg/10 Ml Vial) 40 mg IVP BID [facility] Last Admin: 02/16/20 07:51 Dose: 40 mg Documented by: Rivaroxaban (Rivaroxaban 15 Mg Tab) 15 mg PO BID-W/MEALS [facility] Last Admin: 02/16/20 18:08 Dose: 15 mg Documented by: Thiamine HCl (Thiamine 100 Mg Tab) 100 mg PO BID-W/MEALS [facility] Last Admin: 02/16/20 18:08 Dose: 100 mg Documented by: Physical examination: VITAL SIGNS: 97.7, 99, 18, 113/75, 94% room air GENERAL: Laying in bed, awake EYES: Pupils equal. Conjunctiva normal. HEENT: External appearance of nose and ears normal, oral cavity grossly normal. NECK: JVD not raised; masses not palpable. HEART: First and second heart sounds are normal; no edema. LUNGS: Respiratory rate normal; decreased breath sounds. ABDOMEN: Soft, distended, some bowel sounds present nontender: Dressing over the incision, liver spleen not palpable, no masses palpable. PSYCH: Answering questions INVESTIGATIONS, reviewed in the clinical context: White count 7.6 hemoglobin 9 potassium 3.5 crit and 0.4 Abdominal x-ray film personally reviewed by me shows ileus Previous testing EEG shows evidence of encephalopathy Computed tomography scan of the brain-mild atrophy 2-D echocardiogram-EF 55-60% VQ scan-intermediate probability Chest CTA-suboptimal study. Doppler ultrasound-positive for thrombus within the distal popliteal vein White count 10.2 hemoglobin 14.2 potassium 3.6 B12 some 08 Previously AST 129 ALT 50 Computed tomography scan of the abdomen from January 08-possible colitis, diverticulitis, some esophagitis, hepatic steatosis Assessment: -Status post low anterior resection, for diverticulitis complication -Postop ileus -Chronic nicotine dependence patient cigarette smoker -Clinical emphysema, asymptomatic -Suspect alcoholic hepatitis -Mild hyponatremia -Macrocytic anemia. -Acute DVT in the left distal popliteal vein -Acute alcohol withdrawal syndrome with improvement -IV heparin monitoring Plan: Patient has ileus. Being followed by surgery. Keep on the current dose of baclofen. Encouraged to sit up in a chair. Ambulate. On Xarelto Thank you Dr. Lee
--- NOTE | 2020-02-16 22:44 | PN ---
PROGRESS NOTE DATE OF SERVICE: 02/16/2020 REASON FOR FOLLOWUP: Leukocytosis and pneumonia. INTERVAL HISTORY: Patient is afebrile. He is more awake, alert. He is breathing comfortably. Denies having any chest pain. Did have a cough, not bringing up any sputum. No nausea, vomiting. No abdominal pain, no diarrhea. PHYSICAL EXAMINATION: Blood pressure 135/71 with a pulse of 101, temperature 97.3. He is 94% on room air. General description is a middle-aged male lying in bed in no distress. Respiratory system: Unlabored breathing, clear to auscultation anteriorly. Heart S1, S2. Regular rate and rhythm. Abdomen soft. Extremities: No edema of the feet. LABS: No new labs have been obtained today. DIAGNOSTIC IMPRESSION AND PLAN: Patient with leukocytosis which is multifactorial, possible component of pneumonia, ( ). Patient is covered with Zosyn, to continue for now and monitor clinical course closely. MMODL / IJN: [id number] /
[2020-02-17] MEDS: LACTATED RINGERS 1,000 ML IV SCH (05:49)
[2020-02-17] MEDS: DEXTROSE 5%-0.9% NACL 1,000 ML IV SCH ×2 (05:49→20:41)
[2020-02-17] MEDS: MULTIVITAMINS, THERA 1 EACH TAB PO SCH (07:40)
[2020-02-17] MEDS: PANTOPRAZOLE 40 MG/10 ML VIAL IVP SCH ×2 (07:40→22:31)
[2020-02-17] MEDS: THIAMINE 100 MG TAB PO SCH ×2 (07:40→17:13)
[2020-02-17] MEDS: BACLOFEN 10 MG TAB PO SCH ×3 (07:40→22:31)
[2020-02-17] MEDS: FERROUS SULFATE 325 MG TAB PO SCH ×2 (07:40→17:13)
[2020-02-17] MEDS: METOPROLOL SUCCINATE (ER) 25 MG TAB.ER.24H PO SCH (07:40)
[2020-02-17] MEDS: FOLIC ACID 1 MG TAB PO SCH (07:40)
[2020-02-17] MEDS: RIVAROXABAN 15 MG TAB PO SCH ×2 (07:43→17:16)
[2020-02-17] MEDS: NICOTINE 21MG/24HR PATCH TRANSDERM SCH (07:43)
--- NOTE | 2020-02-17 13:03 | P.PN ---
Subjective Progress Note Date: 02/17/20 CHIEF COMPLAINT: Diverticulitis HISTORY OF PRESENT ILLNESS: The patient is a 64-year-old male with history alcoholism and had low anterior resection. He is tolerating regular diet. No moderate abdominal pain. ROS: No reports of nausea and vomiting. No fevers or chills. No new chest pain. No productive sputum PHYSICAL EXAM: VITAL SIGNS: Reviewed CONSTITUTIONAL: Well developed and in no acute distress. EYES: Conjuctivae without sclera icterus. Extraocular movements grossly intact. HEAD, EARS, NOSE, THROAT: Moist buccal mucosa. Head is atraumatic, normocephalic. Hears conversational speech. No nasal drainage. NECK: Supple. RESPIRATORY: Non-labored respirations and equal bilateral excursions. CARDIOVASCULAR: Palpable 2+ radial pulses. ABDOMEN: Nontender. No peritonitis. Dressing intact MUSCULOSKELETAL: No gross deformity of the lower extremities noted. No clubbing. No cyanosis. SKIN: Good skin turgor. Well perfused. NEUROLOGIC: Cranial nerves II through XII grossly intact. No focal or lateralizing signs. PSYCH: Appropriate affect. Alert and oriented to person, place and time. CLINICAL LABS: No new labs today. ASSESSMENT: 1. Ileus 2. Status post low anterior resection 3. Alcoholism 4. Ascites PLAN: 1. Will need new labs for prior leukocytosis 2. Monitor Hgb for anticoagulant and recent surgery. 3. Patient report rehab for tomorrow. Objective - Vital Signs Vital signs: Vital Signs Temp 97.5 F L 02/17/20 07:00 Pulse 95 02/17/20 07:00 Resp 18 02/17/20 07:00 BP 103/70 02/17/20 07:00 Pulse Ox 96 02/17/20 07:00 Intake & Output 02/16/20 02/17/20 02/17/20 18:59 06:59 18:59 Intake Total 960 Output Total 801 700 Balance 159 -700 Intake: Intake, IV Titration 600 Amount Dextrose 5%-0.9% NaCl 1, 600 000 ml @ 75 mls/hr IV . [id number] [facility] Rx#:[id number] Oral 360 Output: Urine 800 700 Stool 1 Other: Voiding Method Indwelling Catheter Indwelling Catheter Indwelling Catheter # Bowel Movements 1 0 - Labs CBC & Chem 7: 02/15/20 07:05 02/15/20 07:05 Labs: Microbiology - Last 24 Hours (Table) 02/11/20 15:43 Blood Culture - Preliminary Blood No Growth after 120 hours 02/11/20 15:39 Blood Culture - Preliminary Blood No Growth after 120 hours Assessment and Plan (1) Diverticulitis Current Visit: Yes Status: Acute Code(s): K57.92 - DVTRCLI OF INTEST, PART UNSP, W/O PERF OR ABSCESS W/O BLEED SNOMED Code(s): 274805323 (2) Ascites Current Visit: Yes Status: Acute Code(s): R18.8 - OTHER ASCITES SNOMED Code(s): 407941587 (3) Alcoholism Current Visit: Yes Status: Acute Code(s): F10.20 - ALCOHOL DEPENDENCE, UNCOMPLICATED SNOMED Code(s): 5633378 (4) Delirium tremens Current Visit: Yes Status: Acute Code(s): F10.231 - ALCOHOL DEPENDENCE WITH WITHDRAWAL DELIRIUM SNOMED Code(s): 8953432
--- NOTE | 2020-02-17 21:06 | P.PN ---
Progress Note - Text Progress Note Date: 02/17/20 - Chief Complaint Abdominal surgery History of presenting complaint: This is a pleasant 64-year-old patient of . Patient been having complication to his diverticulitis. computed tomography scan on January 08. Showed some possible stricture. Hepatic steatosis. February 06- undergone low anterior resection. Epidural for pain control.patient had elevated d-dimer. Pulmonary embolism felt to be unlikely. CT was suboptimal. VQ scan was intermediate probability. Leg DVT treated with IV heparin. Had some dark stools.also patient had had altered mental status. [place] to be encephalopathy.computed tomography scan of the brain was unremarkable. EGD-no evidence of bleeding. Patient more awake after dose of baclofen cutback. changed over to xarelto.x-ray showing ileus Today-oral intake variable. had some bowel movement.. Review of systems: Was done for constitutional, cardiovascular, GI, pulmonary. relevant finding as above Active Medications Hydrocodone Bitart/Acetaminophen (Hydrocodone/Apap 5-325mg 1 Each Tab) 1 each PO Q4HR PRN PRN Reason: Pain Last Admin: 02/14/20 16:28 Dose: 1 each Documented by: Baclofen (Baclofen 10 Mg Tab) 5 mg PO TID [facility] Last Admin: 02/17/20 17:13 Dose: 5 mg Documented by: Benzocaine/Menthol (Benzocaine/Menthol Lozeng 1 Each Lozenge) 1 each MUCOUS MEM Q1HR PRN PRN Reason: Sore Throat Ferrous Sulfate (Ferrous Sulfate 325 Mg Tab) 325 mg PO BID-W/MEALS [facility] Last Admin: 02/17/20 17:13 Dose: 325 mg Documented by: Folic Acid (Folic Acid 1 Mg Tab) 1 mg PO DAILY [facility] Last Admin: 02/17/20 07:40 Dose: 1 mg Documented by: Lactated Ringer's (Lactated Ringers) 1,000 mls @ 20 mls/hr IV .Q24H [facility] Last Admin: 02/17/20 05:49 Dose: Not Given Documented by: Ropivacaine 250 mg/Hydromorphone HCl 5 mg/ Sodium Chloride 250 mls @ 0 mls/hr EPIDURAL .Q0M PRN; Protocol PRN Reason: Pain Control Last Admin: 02/09/20 17:33 Dose: 6 mls/hr Documented by: Dextrose/Sodium Chloride (Dextrose 5%-Ns Iv Soln) 1,000 mls @ 75 mls/hr IV .[id number] [facility] Last Admin: 02/17/20 20:41 Dose: Not Given Documented by: Lidocaine HCl (Lidocaine 1% (10mg/Ml) For Iv Start) 0.1 ml INTRADERMA PER PROTOCOL PRN PRN Reason: IV Start Last Admin: 02/07/20 08:28 Dose: 0.1 ml Documented by: Lorazepam (Lorazepam 2 Mg/Ml Inj) 1 mg IV Q2HR PRN PRN Reason: CIWA 8 or 9 Last Admin: 02/13/20 01:48 Dose: 1 mg Documented by: Lorazepam (Lorazepam 2 Mg/Ml Inj) 1 mg IV Q1HR PRN PRN Reason: CIWA 10 to 15 Last Admin: 02/12/20 18:23 Dose: 1 mg Documented by: Metoclopramide HCl (Metoclopramide 5 Mg/Ml 2 Ml Vial) 10 mg IVP Q6HR PRN PRN Reason: Nausea and Vomiting Metoprolol Succinate (Metoprolol Succinate (Er) 25 Mg Tab.Er.24h) 25 mg PO DAILY [facility] Last Admin: 02/17/20 07:40 Dose: 25 mg Documented by: Miscellaneous Information (Magnesium Replacement Protocol 1 Each Misc) 1 each MISCELLANE DAILY PRN; Protocol PRN Reason: Per Protocol Miscellaneous Information (Potassium Replacement Protocol 1 Each Misc) 1 each MISCELLANE DAILY PRN; Protocol PRN Reason: Per Protocol Multivitamins (Multivitamins, Thera 1 Each Tab) 1 each PO DAILY [facility] Last Admin: 02/17/20 07:40 Dose: 1 each Documented by: Naloxone HCl (Naloxone 0.4 Mg/Ml 1 Ml Vial) 0.2 mg IV Q2M PRN PRN Reason: Opioid Reversal Nicotine (Nicotine 21mg/24hr Patch) 1 patch TRANSDERM DAILY [facility] Last Admin: 02/17/20 07:43 Dose: 1 patch Documented by: Nicotine Polacrilex (Nicotine Polacrilex 2 Mg Gum) 2 mg BUCCAL Q4HR PRN PRN Reason: Nicotine Cravings Ondansetron HCl (Ondansetron 4 Mg/2 Ml Vial) 4 mg IVP Q8HR PRN PRN Reason: Nausea And Vomiting Pantoprazole Sodium (Pantoprazole 40 Mg/10 Ml Vial) 40 mg IVP BID [facility] Last Admin: 02/17/20 07:40 Dose: 40 mg Documented by: Rivaroxaban (Rivaroxaban 15 Mg Tab) 15 mg PO BID-W/MEALS [facility] Last Admin: 02/17/20 17:16 Dose: 15 mg Documented by: Thiamine HCl (Thiamine 100 Mg Tab) 100 mg PO BID-W/MEALS [facility] Last Admin: 02/17/20 17:13 Dose: 100 mg Documented by: Physical examination: VITAL SIGNS: 97.9, 98, 18, 138.76, 95% on room GENERAL: Laying in bed, comfortable EYES: Pupils equal. Conjunctiva normal. HEENT: External appearance of nose and ears normal, oral cavity grossly normal. NECK: JVD not raised; masses not palpable. HEART: First and second heart sounds are normal; no edema. LUNGS: Respiratory rate normal; decreased breath sounds. ABDOMEN: Soft, distended, some bowel sounds present nontender: Dressing over the incision, liver spleen not palpable, no masses palpable. PSYCH: Answering questions INVESTIGATIONS, reviewed in the clinical context: White count 7.6 hemoglobin 9 potassium 3.5 crit and 0.4 Abdominal x-ray film personally reviewed by me shows ileus Previous testing EEG shows evidence of encephalopathy Computed tomography scan of the brain-mild atrophy 2-D echocardiogram-EF 55-60% VQ scan-intermediate probability Chest CTA-suboptimal study. Doppler ultrasound-positive for thrombus within the distal popliteal vein White count 10.2 hemoglobin 14.2 potassium 3.6 B12 some 08 Previously AST 129 ALT 50 Computed tomography scan of the abdomen from January 08-possible colitis, diverticulitis, some esophagitis, hepatic steatosis Assessment: -Status post low anterior resection, for diverticulitis complication -Postop ileus -Chronic nicotine dependence patient cigarette smoker -Clinical emphysema, asymptomatic -Suspect alcoholic hepatitis -Mild hyponatremia -Macrocytic anemia. -Acute DVT in the left distal popliteal vein -Acute alcohol withdrawal syndrome with improvement -IV heparin monitoring Plan: diet per surgery. Other medications to continue. Pending to go to rehab. Thank you Dr. Lee
[2020-02-18] MEDS: LORazepam 2 MG/ML INJ IV PRN ×2 (01:42→15:42)
--- NOTE | 2020-02-18 04:22 | PN ---
PROGRESS NOTE DATE OF SERVICE: 02/17/2020 REASON FOR FOLLOWUP: Leukocytosis and pneumonia. INTERVAL HISTORY: The patient is currently afebrile. The patient is breathing comfortably on room air. The patient denies having any chest pain. Did have a cough. No nausea, no vomiting. No abdominal pain or diarrhea. PHYSICAL EXAMINATION: Blood pressure 121/79 with a pulse of 98, temperature is 97.8. He is 99% on room air. General description is a middle-aged male lying in bed in no distress. RESPIRATORY SYSTEM: Unlabored breathing, clear to auscultation anteriorly. HEART: S1, S2. Regular rate and rhythm. ABDOMEN: Soft, no tenderness. LABS: Hemoglobin 9, white count 17.6, BUN of 7, creatinine 0.42. Blood culture has been negative. DIAGNOSTIC IMPRESSION AND PLAN: Patient with elevated white count in this patient with concern for pneumonia, possible aspiration. Patient is covered with Zosyn. Repeat CBC and CRP tomorrow. If overall improvement, finish therapy with a short course of oral Augmentin. Continue with supportive care. MMODL / IJN: [id number] /
[2020-02-18] MEDS: LACTATED RINGERS 1,000 ML IV SCH (06:53)
[2020-02-18 08:03] LABS: HCT 28.7 % (39.0-53.0); HGB 9.4 gm/dL (13.0-17.5); Hypochromasia Moderate; MCH 35.8 pg (25.0-35.0); MCHC 32.9 g/dL (31.0-37.0); MCV 108.9 fL (80.0-100.0); Macrocytosis Marked; Mean Platelet Volume 9.1; Platelet Count 364 k/uL (150-450); RBC 2.64 m/uL (4.30-5.90); RDW 14.3 % (11.5-15.5); WBC 20.3 k/uL (3.8-10.6)
[2020-02-18] MEDS: RIVAROXABAN 15 MG TAB PO SCH ×2 (08:12→16:39)
[2020-02-18] MEDS: FERROUS SULFATE 325 MG TAB PO SCH ×2 (08:12→16:38)
[2020-02-18] MEDS: PANTOPRAZOLE 40 MG/10 ML VIAL IVP SCH ×2 (08:12→22:10)
[2020-02-18] MEDS: MULTIVITAMINS, THERA 1 EACH TAB PO SCH (08:12)
[2020-02-18] MEDS: NICOTINE 21MG/24HR PATCH TRANSDERM SCH (08:12)
[2020-02-18] MEDS: FOLIC ACID 1 MG TAB PO SCH (08:12)
[2020-02-18] MEDS: THIAMINE 100 MG TAB PO SCH ×2 (08:12→16:38)
[2020-02-18] MEDS: DEXTROSE 5%-0.9% NACL 1,000 ML IV SCH ×2 (08:12→22:11)
[2020-02-18] MEDS: METOPROLOL SUCCINATE (ER) 25 MG TAB.ER.24H PO SCH (08:12)
[2020-02-18] MEDS: BACLOFEN 10 MG TAB PO SCH ×3 (08:14→22:10)
[2020-02-18 09:34] LABS: Lymphocytes # (M) 1.83 k/uL (1.0-4.8); Monocytes # (M) 1.62 k/uL (0-1.0); Neutrophils # (M) 16.85 k/uL (1.3-7.7); Neutrophils % (M) 83 %; Nucleated Red Blood Cells 0 /100 WBC (0-0); Total Cells Counted 100
[2020-02-18 09:35] LABS: Target Cells Present
[2020-02-18 09:50] LABS: C Reactive Protein 3.9 mg/dL (0.0-0.8); Calcium 7.3 mg/dL (8.7-10.3); Potassium 2.9 mmol/L (3.5-5.5)
--- NOTE | 2020-02-18 10:26 | XR ---
EXAMINATION TYPE: XR chest 1V portable DATE OF EXAM: 02/18/2020 COMPARISON: Prior chest x-ray 02/12/2020 HISTORY: Abnormal chest x-ray, pneumonia TECHNIQUE: Single frontal view of the chest is obtained. FINDINGS: Multiple old right-sided rib fractures are again noted. There is volume loss in the right hemithorax, there is elevation of right hemidiaphragm. Patchy density is present at the right lung ba se. There is no evident pneumothorax. Postop change noted the proximal left humerus. Cardiac mediasti nal silhouette, pulmonary vascularity and allison not significant changed. Aorta is dense. There are ove rlying cardiac leads. IMPRESSION: Right lower lobe atelectasis versus pneumonia or edema and associated effusion, follow-u p PA and lateral chest x-ray suggested.
--- NOTE | 2020-02-18 11:13 | P.PN ---
Progress Note - Text Progress Note Date: 02/18/20 The patient is laying in his bed. He denies any significant abdominal pains. He is still has some ascites leaking through his incision. On exam vital signs appear stable. Abdomen is soft. Incision is clean dry and intact. Patient's white count has increased to 20,000. He'll be started on Zosyn. His chest x-ray shows a possible right lower lobe pneumonia. He'll be observed closely.
--- NOTE | 2020-02-18 13:38 | P.PN ---
Subjective Progress Note Date: 02/18/20 Patient was seen for a follow-up. Patient is much more alert and awake, but still appears somewhat encephalopathic. He is making eye contact, but does not speak much. Patient is still on [facility] protocol for alcohol withdrawals. Objective - Vital Signs Vital signs: Vital Signs Temp 97.7 F 02/18/20 07:00 Pulse 83 02/18/20 08:00 Resp 16 02/18/20 08:00 BP 105/71 02/18/20 07:00 Pulse Ox 94 L 02/18/20 07:00 Intake & Output 02/17/20 02/18/20 02/18/20 18:59 06:59 18:59 Intake Total 240 200 Output Total 400 2101 101 Balance -160 -1901 -101 Weight 58 kg Intake: Oral 240 200 Output: Urine 400 1000 100 Uretheral (Lemus) 500 Stool 1 1 Other 1100 Other: Voiding Method Indwelling Catheter Indwelling Catheter Indwelling Catheter # Bowel Movements 2 - Exam Patient is awake at this time. More alert, makes eye contact, but does not communicate electively. Patient does not follow commands. Still appears encephalopathic. Tone is equal, strength appears much better. Patient is slightly malnutrition. - Labs CBC & Chem 7: 02/18/20 05:48 02/18/20 05:48 Labs: Abnormal Lab Results - Last 24 Hours (Table) 02/18/20 02/18/20 Range/Units 05:48 05:48 WBC 20.3 H (3.8-10.6) k/uL RBC 2.64 L (4.30-5.90) m/uL Hgb 9.4 L (13.0-17.5) gm/dL Hct 28.7 L (39.0-53.0) % MCV 108.9 H (80.0-100.0) fL MCH 35.8 H (25.0-35.0) pg Neutrophils # (Manual) 16.85 H (1.3-7.7) k/uL Monocytes # (Manual) 1.62 H (0-1.0) k/uL Macrocytosis Marked A Potassium 2.9 L (3.5-5.5) mmol/L Carbon Dioxide 19.0 L (21.6-31.8) mmol/L Calcium 7.3 L (8.7-10.3) mg/dL C-Reactive Protein 3.9 H (0.0-0.8) mg/dL Microbiology - Last 24 Hours (Table) 02/11/20 15:43 Blood Culture - Final Blood No Growth after 144 hours 02/11/20 15:39 Blood Culture - Final Blood No Growth after 144 hours Assessment and Plan Assessment: * Altered mental status, likely due to alcohol withdrawal syndrome. * History of polysubstance abuse including alcohol, tobacco and perhaps marijuana. * Diverticulitis status post lower anterior resection, takedown of splenic flexure and partial omentectomy * Acute DVT left lower extremity, now on Xarelto. * Folate deficiency Plan: * EEG showed moderate background slowing consistent with encephalopathy, no epileptiform activity seen. * Patient appears slightly more mentally clear. Hopefully will improve gradually. Avoid excessive sedation. * CT head showed mild generalized atrophy. No acute intracranial process. * Continue folic acid 1 mg daily for folic acid deficiency. * Continue thiamine and multivitamins. * PT and OT when able to cooperate.
[2020-02-18] MEDS: PIPERACILLIN-TAZOBACTAM 3.375 GM in SODIUM CHLORIDE 0.9% 100 ML IVPB SCH ×2 (15:43→23:06)
[2020-02-18] MEDS ORDERED: POTASSIUM CHLORIDE ER 20 MEQ TAB.ER PO STA (20:29)
--- NOTE | 2020-02-18 20:30 | P.PN ---
Progress Note - Text Progress Note Date: 02/18/20 - Chief Complaint Abdominal surgery History of presenting complaint: This is a pleasant 64-year-old patient of . Patient been having complication to his diverticulitis. computed tomography scan on January 08. Showed some possible stricture. Hepatic steatosis. February 06- undergone low anterior resection. Epidural for pain control.patient had elevated d-dimer. Pulmonary embolism felt to be unlikely. CT was suboptimal. VQ scan was intermediate probability. Leg DVT treated with IV heparin. Had some dark stools.also patient had had altered mental status. [place] to be encephalopathy.computed tomography scan of the brain was unremarkable. EGD-no evidence of bleeding. Patient more awake after dose of baclofen cutback. changed over to xarelto.x-ray showing ileus Today-poor oral intake. Denies pain. White count is climbing. Review of systems: Was done for constitutional, cardiovascular, GI, pulmonary. relevant finding as above Active Medications Hydrocodone Bitart/Acetaminophen (Hydrocodone/Apap 5-325mg 1 Each Tab) 1 each PO Q4HR PRN PRN Reason: Pain Last Admin: 02/14/20 16:28 Dose: 1 each Documented by: Baclofen (Baclofen 10 Mg Tab) 5 mg PO TID [facility] Last Admin: 02/18/20 15:43 Dose: 5 mg Documented by: Benzocaine/Menthol (Benzocaine/Menthol Lozeng 1 Each Lozenge) 1 each MUCOUS MEM Q1HR PRN PRN Reason: Sore Throat Ferrous Sulfate (Ferrous Sulfate 325 Mg Tab) 325 mg PO BID-W/MEALS [facility] Last Admin: 02/18/20 16:38 Dose: 325 mg Documented by: Folic Acid (Folic Acid 1 Mg Tab) 1 mg PO DAILY [facility] Last Admin: 02/18/20 08:12 Dose: 1 mg Documented by: Lactated Ringer's (Lactated Ringers) 1,000 mls @ 20 mls/hr IV .Q24H [facility] Last Admin: 02/18/20 06:53 Dose: Not Given Documented by: Ropivacaine 250 mg/Hydromorphone HCl 5 mg/ Sodium Chloride 250 mls @ 0 mls/hr EPIDURAL .Q0M PRN; Protocol PRN Reason: Pain Control Last Admin: 02/09/20 17:33 Dose: 6 mls/hr Documented by: Dextrose/Sodium Chloride (Dextrose 5%-Ns Iv Soln) 1,000 mls @ 75 mls/hr IV .[id number] [facility] Last Admin: 02/18/20 08:12 Dose: 75 mls/hr Documented by: Piperacillin Sod/Tazobactam (Sod 3.375 gm/ Sodium Chloride) 100 mls @ 25 mls/hr IVPB Q8HR [facility] Last Admin: 02/18/20 15:43 Dose: 25 mls/hr Documented by: Lidocaine HCl (Lidocaine 1% (10mg/Ml) For Iv Start) 0.1 ml INTRADERMA PER PROTOCOL PRN PRN Reason: IV Start Last Admin: 02/07/20 08:28 Dose: 0.1 ml Documented by: Lorazepam (Lorazepam 2 Mg/Ml Inj) 1 mg IV Q2HR PRN PRN Reason: CIWA 8 or 9 Last Admin: 02/18/20 01:42 Dose: 1 mg Documented by: Lorazepam (Lorazepam 2 Mg/Ml Inj) 1 mg IV Q1HR PRN PRN Reason: CIWA 10 to 15 Last Admin: 02/18/20 15:42 Dose: 1 mg Documented by: Metoclopramide HCl (Metoclopramide 5 Mg/Ml 2 Ml Vial) 10 mg IVP Q6HR PRN PRN Reason: Nausea and Vomiting Metoprolol Succinate (Metoprolol Succinate (Er) 25 Mg Tab.Er.24h) 25 mg PO DAILY [facility] Last Admin: 02/18/20 08:12 Dose: 25 mg Documented by: Miscellaneous Information (Magnesium Replacement Protocol 1 Each Misc) 1 each MISCELLANE DAILY PRN; Protocol PRN Reason: Per Protocol Miscellaneous Information (Potassium Replacement Protocol 1 Each Misc) 1 each MISCELLANE DAILY PRN; Protocol PRN Reason: Per Protocol Multivitamins (Multivitamins, Thera 1 Each Tab) 1 each PO DAILY [facility] Last Admin: 02/18/20 08:12 Dose: 1 each Documented by: Naloxone HCl (Naloxone 0.4 Mg/Ml 1 Ml Vial) 0.2 mg IV Q2M PRN PRN Reason: Opioid Reversal Nicotine (Nicotine 21mg/24hr Patch) 1 patch TRANSDERM DAILY [facility] Last Admin: 02/18/20 08:12 Dose: 1 patch Documented by: Nicotine Polacrilex (Nicotine Polacrilex 2 Mg Gum) 2 mg BUCCAL Q4HR PRN PRN Reason: Nicotine Cravings Ondansetron HCl (Ondansetron 4 Mg/2 Ml Vial) 4 mg IVP Q8HR PRN PRN Reason: Nausea And Vomiting Pantoprazole Sodium (Pantoprazole 40 Mg/10 Ml Vial) 40 mg IVP BID [facility] Last Admin: 02/18/20 08:12 Dose: 40 mg Documented by: Rivaroxaban (Rivaroxaban 15 Mg Tab) 15 mg PO BID-W/MEALS [facility] Last Admin: 02/18/20 16:39 Dose: 15 mg Documented by: Thiamine HCl (Thiamine 100 Mg Tab) 100 mg PO BID-W/MEALS [facility] Last Admin: 02/18/20 16:38 Dose: 100 mg Documented by: Physical examination: VITAL SIGNS: 98.2, 99, 16, 115/71, 98% room air GENERAL: Laying in bed, comfortable EYES: Pupils equal. Conjunctiva normal. HEENT: External appearance of nose and ears normal, oral cavity grossly normal. NECK: JVD not raised; masses not palpable. HEART: First and second heart sounds are normal; no edema. LUNGS: Respiratory rate normal; decreased breath sounds. ABDOMEN: Soft, distended, some bowel sounds present nontender: Dressing over the incision, liver spleen not palpable, no masses palpable. PSYCH: Answering questions INVESTIGATIONS, reviewed in the clinical context: White count 20.3 hemoglobin 9.4 potassium 2.9 creatinine 0.6 Check stat x-ray showing right lower lobe infiltrate Previous testing EEG shows evidence of encephalopathy Computed tomography scan of the brain-mild atrophy 2-D echocardiogram-EF 55-60% VQ scan-intermediate probability Chest CTA-suboptimal study. Doppler ultrasound-positive for thrombus within the distal popliteal vein White count 10.2 hemoglobin 14.2 potassium 3.6 B12 some 08 Previously AST 129 ALT 50 Computed tomography scan of the abdomen from January 08-possible colitis, diverticulitis, some esophagitis, hepatic steatosis Abdominal x-ray film personally reviewed by me shows ileus Assessment: -Status post low anterior resection, for diverticulitis complication -Postop ileus -Chronic nicotine dependence patient cigarette smoker -Clinical emphysema, asymptomatic -Suspect alcoholic hepatitis -Mild hyponatremia -Macrocytic anemia. -Acute DVT in the left distal popliteal vein -Acute alcohol withdrawal syndrome with improvement -Right lower lobe pneumonia Plan: Patient started on Zosyn today. Other medications to continue. Oral intake not good. Thank you Dr. Lee
[2020-02-18] MEDS ORDERED: FLUCONAZOLE 100 MG TAB PO ONE (20:48)
--- NOTE | 2020-02-18 22:08 | PN ---
PROGRESS NOTE DATE OF SERVICE: 02/18/2020 REASON FOR FOLLOWUP: Leukocytosis, possible pneumonia. INTERVAL HISTORY: Patient is currently afebrile. The patient is breathing comfortably on room air. The patient denies having any chest pain or cough. No nausea, vomiting. No abdominal pain. No diarrhea. PHYSICAL EXAMINATION: Blood pressure 100/71 with a pulse of 83, temperature 98.2. He is 98% on room air. General description is a middle-aged male lying in bed in no distress. Respiratory system: Unlabored breathing, decreased breath sounds in the bases. No wheeze. Heart S1, S2. Regular rate and rhythm. ABDOMEN: Soft, no tenderness. LABS: Hemoglobin 11.4, white count , BUN of 9, creatinine 0.6, CRP 3.9. DIAGNOSTIC IMPRESSION AND PLAN: Patient with leukocytosis which is multifactorial with concern for possible pneumonia, source. The patient is currently covered with Zosyn. We will add Diflucan. Repeat CBC tomorrow. If white count still elevated, may need a CT of abdomen and pelvis to rule out any abdominal source. MMODL / IJN: [id number] /
[2020-02-19] MEDS: LACTATED RINGERS 1,000 ML IV SCH (04:38)
[2020-02-19] MEDS: THIAMINE 100 MG TAB PO SCH ×2 (07:44→17:42)
[2020-02-19] MEDS: RIVAROXABAN 15 MG TAB PO SCH ×2 (07:44→17:41)
[2020-02-19] MEDS: FERROUS SULFATE 325 MG TAB PO SCH ×2 (07:44→17:41)
[2020-02-19] MEDS: PIPERACILLIN-TAZOBACTAM 3.375 GM in SODIUM CHLORIDE 0.9% 100 ML IVPB SCH ×2 (07:44→16:09)
[2020-02-19 08:59] LABS: Basophils % (A) 0 %; Eosinophils # (A) 0.1 k/uL (0-0.7); Eosinophils % (A) 1 %; HCT 31.6 % (39.0-53.0); HGB 9.8 gm/dL (13.0-17.5); Hypochromasia Marked; Lymphocytes # (A) 2.2 k/uL (1.0-4.8); Lymphocytes % (A) 11 %; MCH 34.2 pg (25.0-35.0); MCHC 31.1 g/dL (31.0-37.0); MCV 109.8 fL (80.0-100.0); Macrocytosis Marked; Mean Platelet Volume 9.2; Monocytes # (A) 1.4 k/uL (0-1.0); Monocytes % (A) 7 %; Neutrophils # (A) 15.8 k/uL (1.3-7.7); Neutrophils % (A) 80 %; Platelet Count 486 k/uL (150-450); RBC 2.88 m/uL (4.30-5.90); RDW 14.9 % (11.5-15.5); WBC 19.7 k/uL (3.8-10.6)
[2020-02-19] MEDS: FOLIC ACID 1 MG TAB PO SCH (09:06)
[2020-02-19] MEDS: METOPROLOL SUCCINATE (ER) 25 MG TAB.ER.24H PO SCH (09:06)
[2020-02-19] MEDS: MULTIVITAMINS, THERA 1 EACH TAB PO SCH (09:06)
[2020-02-19] MEDS: NICOTINE 21MG/24HR PATCH TRANSDERM SCH (09:07)
[2020-02-19] MEDS: BACLOFEN 10 MG TAB PO SCH ×3 (09:07→21:40)
[2020-02-19] MEDS: PANTOPRAZOLE 40 MG/10 ML VIAL IVP SCH ×2 (09:07→21:41)
[2020-02-19] MEDS: DEXTROSE 5%-0.9% NACL 1,000 ML IV SCH (09:17)
--- NOTE | 2020-02-19 11:20 | P.PN ---
Subjective Progress Note Date: 02/19/20 Patient was seen for a follow-up. Patient appears much better today. Much more alert and awake, answering questions appropriately as below. Patient denies any headache. Patient states that he does drink "a lot". States he drinks "E chemical". Objective - Vital Signs Vital signs: Vital Signs Temp 97.7 F 02/19/20 02:00 Pulse 97 02/19/20 08:35 Resp 16 02/19/20 08:35 BP 113/74 02/19/20 08:35 Pulse Ox 96 02/19/20 08:35 Intake & Output 02/18/20 02/19/20 02/19/20 18:59 06:59 18:59 Intake Total 800 Output Total 1578 725 Balance -778 -725 Intake: IV 800 Dextrose 5%-0.9% NaCl 1, 800 000 ml @ 75 mls/hr IV . [id number] [facility] Rx#:[id number] Output: Urine 200 150 Stool 3 Other 1375 575 Other: Voiding Method Indwelling Catheter Indwelling Catheter Indwelling Catheter # Bowel Movements 1 - Exam Patient is much more alert and awake at this time. Still with slow mentation. Patient knows that he is in the hospital but could not tell the name. He knows that he is in [place] but thinks is in [place]. He thinks it's September 2019 and Mr. Madrigal is the president. Speech is clear with no aphasia or dysarthria. Visual arias are full, except muscles are intact face is symmetric. Patient strength appears equal bilaterally. - Labs CBC & Chem 7: 02/19/20 07:21 02/18/20 05:48 Labs: Abnormal Lab Results - Last 24 Hours (Table) 02/19/20 Range/Units 07:21 WBC 19.7 H (3.8-10.6) k/uL RBC 2.88 L (4.30-5.90) m/uL Hgb 9.8 L (13.0-17.5) gm/dL Hct 31.6 L (39.0-53.0) % MCV 109.8 H (80.0-100.0) fL Plt Count 486 H (150-450) k/uL Neutrophils # 15.8 H (1.3-7.7) k/uL Monocytes # 1.4 H (0-1.0) k/uL Macrocytosis Marked A Assessment and Plan Assessment: * Altered mental status, likely due to alcohol withdrawal syndrome. * History of polysubstance abuse including alcohol, tobacco and perhaps marijuana. * Diverticulitis status post lower anterior resection, takedown of splenic flexure and partial omentectomy * Acute DVT left lower extremity, now on Xarelto. * Folate deficiency Plan: * Patient's mentation has much improved today. Avoid sedatives. * EEG showed moderate background slowing consistent with encephalopathy, no epileptiform activity seen. * CT head showed mild generalized atrophy. No acute intracranial process. * Continue folic acid 1 mg daily for folic acid deficiency. * Continue thiamine and multivitamins. * PT and OT when able to cooperate. * Neurologically clear.
[2020-02-19] MEDS: IOPAMIDOL CONTRAST (ORAL USE) VIAL PO PRN ×2 (11:40→12:30)
--- NOTE | 2020-02-19 12:02 | P.PN ---
Subjective Progress Note Date: 02/19/20 CHIEF COMPLAINT: Diverticulitis HISTORY OF PRESENT ILLNESS: Patient is status post lower anterior resection, takedown of splenic flexure and partial omentectomy. Patient is sitting up in bed. Patient started on IV Zosyn yesterday for possible pneumonia. He is on Xarelto for DVT in his leg. He still having some confusion. Still reporting abdominal pain. His white count has come down from 20.3 to 19.7. He's currently on a regular diet. He did have a soft dark brown stool today. No nausea or vomiting reported. PHYSICAL EXAM: VITAL SIGNS: Reviewed. GENERAL: Well-developed in no acute distress. HEENT: No sclera icterus. Extraocular movements grossly intact. Moist buccal mucosa. Head is atraumatic, normocephalic. ABDOMEN: clear drainage from incision due to ascites. Distended. Tender around incision site. NEUROLOGIC: Patient is alert and orientated to 3. Still having episodes of c onfusion ASSESSMENT: 1. Diverticulitis status post lower anterior resection, takedown of splenic flexure and partial omentectomy 2. Alcohol abuse with alcohol withdrawal 3. New left leg DVT anticoagulated with Xarelto 4. Possible ileus 5. Black stools. Resolved. No evidence of upper GI bleed on EGD. EGD was normal 6. Altered mental status likely due to alcohol withdrawal syndrome. Patient evaluated by neurology 7. Possible right lower lobe pneumonia PLAN: -Due to patient's leukocytosis and abdominal pain will proceed with a computed tomography scan of abdomen and pelvis with oral and IV contrast -Antibiotics per ID -Continue regular diet -Continue CIWA protocol with Ativan, thiamine and multivitamin for alcohol abuse -GI prophylaxis Pepcid Physician Sand Cutter note has been reviewed by physician. Signing provider agrees with the documented findings, assessment, and plan of care. Objective - Vital Signs Vital signs: Vital Signs Temp 97.7 F 02/19/20 02:00 Pulse 97 02/19/20 08:35 Resp 16 02/19/20 08:35 BP 113/74 02/19/20 08:35 Pulse Ox 96 02/19/20 08:35 Intake & Output 02/18/20 02/19/20 02/19/20 18:59 06:59 18:59 Intake Total 800 Output Total 1578 725 Balance -778 -725 Intake: IV 800 Dextrose 5%-0.9% NaCl 1, 800 000 ml @ 75 mls/hr IV . [id number] [facility] Rx#:[id number] Output: Urine 200 150 Stool 3 Other 1375 575 Other: Voiding Method Indwelling Catheter Indwelling Catheter Indwelling Catheter # Bowel Movements 1 - Labs CBC & Chem 7: 02/19/20 07:21 02/18/20 05:48 Labs: Abnormal Lab Results - Last 24 Hours (Table) 02/19/20 Range/Units 07:21 WBC 19.7 H (3.8-10.6) k/uL RBC 2.88 L (4.30-5.90) m/uL Hgb 9.8 L (13.0-17.5) gm/dL Hct 31.6 L (39.0-53.0) % MCV 109.8 H (80.0-100.0) fL Plt Count 486 H (150-450) k/uL Neutrophils # 15.8 H (1.3-7.7) k/uL Monocytes # 1.4 H (0-1.0) k/uL Macrocytosis Marked A
[2020-02-19 12:12] LABS: Albumin 1.9 g/dL (3.80-4.90); Albumin/Globulin Ratio 0.79 (1.60-3.17); Anion Gap 9.7 mmol/L (4.00-12.00); BUN/Creat Ratio 16.67 Ratio (12.00-20.00); Calcium 7.4 mg/dL (8.7-10.3); Carbon Dioxide 18.3 mmol/L (21.6-31.8); Globulin 2.4 g/dL (1.6-3.3); Potassium 3.6 mmol/L (3.5-5.5); Total Bilirubin 0.7 mg/dL (0.3-1.2); Total Protein 4.3 g/dL (6.2-8.2)
--- NOTE | 2020-02-19 13:48 | CT ---
EXAMINATION TYPE: CT abdomen pelvis w con DATE OF EXAM: 02/19/2020 COMPARISON: CT 01/09/2020 HISTORY: Abdominal pain, elevated white blood cell count CT DLP: 1001.4 mGycm Automated exposure control for dose reduction was used. TECHNIQUE: Helical acquisition of images from the lung bases through the pelvis have been completed. CONTRAST: Performed with Oral Contrast and with IV Contrast, patient injected with 100 mL of Isovue 300. FINDINGS: There is some motion on the exam. Surgical yvonne present along anterior abdominal wall ar e noted. Surgical clips present in the groins bilaterally. LUNG BASES: Bibasilar effusions and associated dependent atelectatic changes are present. There are c oronary artery calcifications. Question some groundglass opacity peripherally within the lung bases. AORTA: No significant abnormality is appreciated. LIVER/GB: Gallbladder appears contracted. Some dependent high density may reflect underlying stones o r sludge versus vicarious excretion of contrast, stones were not present on prior CT. Low-attenuation within the liver has improved in the interval, there is a nodular contour to the liver, correlate fo r possible cirrhosis PANCREAS: No significant abnormality is seen. SPLEEN: No significant abnormality is seen. ADRENALS: No significant abnormality is seen. KIDNEYS: No significant interval change is seen. REPRODUCTIVE ORGANS: No significant abnormality is seen BOWEL: Postop changes noted in the sigmoid colon, proximal to this level there is abnormal thickenin g of the right colon. Some thickened small bowel loops are also present. FREE AIR: No Free Air visible. ASCITES: Increased amount of ascites as compared to prior exam.. PELVIC ADENOPATHY: None visualized. RETROPERITONEAL ADENOPATHY: No Retroperitoneal Adenopathy visible. URINARY BLADDER: Catheterized and not distended. OSSEOUS STRUCTURES: Postop change to the left hip causes some streak artifact in the pelvis.. IMPRESSION: INTERVAL DEVELOPMENT OF BILATERAL PLEURAL EFFUSIONS AND ASSOCIATED ATELECTASIS, CORRELATE TO EXCLUDE PNEUMONIA, GROUNDGLASS DENSITY WITHIN THE LUNG BASES IS INDETERMINATE. INTERVAL DEVELOPMENT OF GREATE R AMOUNT OF ASCITES, CORRELATE FOR POSSIBLE COLITIS WHICH INCLUDES INFECTIOUS AND ISCHEMIC ETIOLOGIES AND ENTERITIS. ADDITIONAL FINDINGS ABOVE.
[2020-02-19 17:15] LABS: Glucose,Whole Blood 111 mg/dL (75-99)
--- NOTE | 2020-02-19 21:38 | P.PN ---
Progress Note - Text Progress Note Date: 02/19/20 - Chief Complaint Abdominal surgery History of presenting complaint: This is a pleasant 64-year-old patient of . Patient been having complication to his diverticulitis. computed tomography scan on January 08. Showed some possible stricture. Hepatic steatosis. February 06- undergone low anterior resection. Epidural for pain control.patient had elevated d-dimer. Pulmonary embolism felt to be unlikely. CT was suboptimal. VQ scan was intermediate probability. Leg DVT treated with IV heparin. Had some dark stools.also patient had had altered mental status. [place] to be encephalopathy.computed tomography scan of the brain was unremarkable. EGD-no evidence of bleeding. Patient more awake after dose of baclofen cutback. changed over to xarelto.x-ray showing ileus Today-saw the patient earlier today. Still some abdominal distention. Discussed with Rosaura from general surgery. Computed tomography scan abdomen ordered. Review of systems: Was done for constitutional, cardiovascular, GI, pulmonary. relevant finding as above Active Medications Hydrocodone Bitart/Acetaminophen (Hydrocodone/Apap 5-325mg 1 Each Tab) 1 each PO Q4HR PRN PRN Reason: Pain Last Admin: 02/14/20 16:28 Dose: 1 each Documented by: Baclofen (Baclofen 10 Mg Tab) 5 mg PO TID [facility] Last Admin: 02/19/20 16:41 Dose: 5 mg Documented by: Benzocaine/Menthol (Benzocaine/Menthol Lozeng 1 Each Lozenge) 1 each MUCOUS MEM Q1HR PRN PRN Reason: Sore Throat Ferrous Sulfate (Ferrous Sulfate 325 Mg Tab) 325 mg PO BID-W/MEALS [facility] Last Admin: 02/19/20 17:41 Dose: 325 mg Documented by: Folic Acid (Folic Acid 1 Mg Tab) 1 mg PO DAILY [facility] Last Admin: 02/19/20 09:06 Dose: 1 mg Documented by: Lactated Ringer's (Lactated Ringers) 1,000 mls @ 20 mls/hr IV .Q24H [facility] Last Admin: 02/19/20 04:38 Dose: Not Given Documented by: Ropivacaine 250 mg/Hydromorphone HCl 5 mg/ Sodium Chloride 250 mls @ 0 mls/hr EPIDURAL .Q0M PRN; Protocol PRN Reason: Pain Control Last Admin: 02/09/20 17:33 Dose: 6 mls/hr Documented by: Dextrose/Sodium Chloride (Dextrose 5%-Ns Iv Soln) 1,000 mls @ 75 mls/hr IV .[id number] [facility] Last Admin: 02/19/20 09:17 Dose: 75 mls/hr Documented by: Piperacillin Sod/Tazobactam (Sod 3.375 gm/ Sodium Chloride) 100 mls @ 25 mls/hr IVPB Q8HR [facility] Last Admin: 02/19/20 16:09 Dose: 25 mls/hr Documented by: Lidocaine HCl (Lidocaine 1% (10mg/Ml) For Iv Start) 0.1 ml INTRADERMA PER PROTOCOL PRN PRN Reason: IV Start Last Admin: 02/07/20 08:28 Dose: 0.1 ml Documented by: Lorazepam (Lorazepam 2 Mg/Ml Inj) 1 mg IV Q2HR PRN PRN Reason: CIWA 8 or 9 Last Admin: 02/18/20 01:42 Dose: 1 mg Documented by: Lorazepam (Lorazepam 2 Mg/Ml Inj) 1 mg IV Q1HR PRN PRN Reason: CIWA 10 to 15 Last Admin: 02/18/20 15:42 Dose: 1 mg Documented by: Metoclopramide HCl (Metoclopramide 5 Mg/Ml 2 Ml Vial) 10 mg IVP Q6HR PRN PRN Reason: Nausea and Vomiting Metoprolol Succinate (Metoprolol Succinate (Er) 25 Mg Tab.Er.24h) 25 mg PO DAILY [facility] Last Admin: 02/19/20 09:06 Dose: 25 mg Documented by: Miscellaneous Information (Magnesium Replacement Protocol 1 Each Misc) 1 each MISCELLANE DAILY PRN; Protocol PRN Reason: Per Protocol Miscellaneous Information (Potassium Replacement Protocol 1 Each Misc) 1 each MISCELLANE DAILY PRN; Protocol PRN Reason: Per Protocol Multivitamins (Multivitamins, Thera 1 Each Tab) 1 each PO DAILY [facility] Last Admin: 02/19/20 09:06 Dose: 1 each Documented by: Naloxone HCl (Naloxone 0.4 Mg/Ml 1 Ml Vial) 0.2 mg IV Q2M PRN PRN Reason: Opioid Reversal Nicotine (Nicotine 21mg/24hr Patch) 1 patch TRANSDERM DAILY [facility] Last Admin: 02/19/20 09:07 Dose: 1 patch Documented by: Nicotine Polacrilex (Nicotine Polacrilex 2 Mg Gum) 2 mg BUCCAL Q4HR PRN PRN Reason: Nicotine Cravings Ondansetron HCl (Ondansetron 4 Mg/2 Ml Vial) 4 mg IVP Q8HR PRN PRN Reason: Nausea And Vomiting Pantoprazole Sodium (Pantoprazole 40 Mg/10 Ml Vial) 40 mg IVP BID [facility] Last Admin: 02/19/20 09:07 Dose: 40 mg Documented by: Rivaroxaban (Rivaroxaban 15 Mg Tab) 15 mg PO BID-W/MEALS [facility] Last Admin: 02/19/20 17:41 Dose: 15 mg Documented by: Thiamine HCl (Thiamine 100 Mg Tab) 100 mg PO BID-W/MEALS [facility] Last Admin: 02/19/20 17:42 Dose: 100 mg Documented by: Physical examination: VITAL SIGNS: 98.1, 107, 20, 122/84, 97% on room air GENERAL: Laying in bed, awake EYES: Pupils equal. Conjunctiva normal. HEENT: External appearance of nose and ears normal, oral cavity grossly normal. NECK: JVD not raised; masses not palpable. HEART: First and second heart sounds are normal; no edema. LUNGS: Respiratory rate normal; decreased breath sounds. ABDOMEN: Soft, distended, some bowel sounds present nontender: Dressing over the incision, liver spleen not palpable, no masses palpable. PSYCH: Answering questions INVESTIGATIONS, reviewed in the clinical context: White count 19.7 hemoglobin 9.8 potassium 3.6 creatinine 0.6, Computed tomography scan of the abdomen done today. Previous testing EEG shows evidence of encephalopathy Computed tomography scan of the brain-mild atrophy 2-D echocardiogram-EF 55-60% VQ scan-intermediate probability Chest CTA-suboptimal study. Doppler ultrasound-positive for thrombus within the distal popliteal vein White count 10.2 hemoglobin 14.2 potassium 3.6 B12 some 08 Previously AST 129 ALT 50 Computed tomography scan of the abdomen from January 08-possible colitis, diverticulitis, some esophagitis, hepatic steatosis Abdominal x-ray film personally reviewed by me shows ileus Assessment: -Status post low anterior resection, for diverticulitis complication -Postop ileus -Chronic nicotine dependence patient cigarette smoker -Clinical emphysema, asymptomatic -Suspect alcoholic hepatitis -Mild hyponatremia -Macrocytic anemia. -Acute DVT in the left distal popliteal vein -Acute alcohol withdrawal syndrome with improvement -Right lower lobe pneumonia -Abnormal computed tomography scan of the abdomen. We'll discuss with Dr. Lee. Plan: Continue IV Zosyn today. May consider TPN and lipids. We'll discuss with ID and Dr. Lee. Thank you Dr. Lee
--- NOTE | 2020-02-19 23:24 | PN ---
PROGRESS NOTE DATE OF SERVICE: 02/19/2020 REASON FOR FOLLOWUP: Leukocytosis, possible pneumonia. INTERVAL HISTORY: The patient is currently afebrile. Patient is breathing comfortably. The patient denies having any chest pain or cough. No abdominal pain. No vomiting and no diarrhea has been reported. PHYSICAL EXAMINATION: Blood pressure is 106/74 with a pulse of 113, temperature is 97.7. He is 97% on room air. General description is a middle-aged male lying in bed in no distress. RESPIRATORY SYSTEM: Unlabored breathing, clear to auscultation anteriorly. HEART: S1, S2. Regular rate and rhythm. ABDOMEN: Soft, mildly distended. No guarding or rigidity. EXTREMITIES: No edema of feet. LABS: Hemoglobin is 9.8, white count 19.7, BUN of 10, creatinine 0.6. Blood culture has been negative. He did have a CT of abdomen and pelvis which shows bilateral pleural effusion and ascites and a question of colitis. DIAGNOSTIC IMPRESSION AND PLAN: Patient with elevated white count which is multifactorial in this patient status post low anterior resection. Patient at this time is covered with Zosyn with no evidence of any drainable abscess on the CT and will monitor his clinical course closely. Continue supportive care. MMODL / IJN: [id number] /
[2020-02-20] MEDS: PIPERACILLIN-TAZOBACTAM 3.375 GM in SODIUM CHLORIDE 0.9% 100 ML IVPB SCH ×3 (00:45→15:45)
[2020-02-20] MEDS: LACTATED RINGERS 1,000 ML IV SCH ×2 (03:22→10:10)
[2020-02-20] MEDS: DEXTROSE 5%-0.9% NACL 1,000 ML IV SCH ×2 (03:22→10:10)
[2020-02-20] MEDS: RIVAROXABAN 15 MG TAB PO SCH ×2 (08:18→17:10)
[2020-02-20] MEDS: FERROUS SULFATE 325 MG TAB PO SCH ×2 (08:18→17:10)
[2020-02-20] MEDS: METOPROLOL SUCCINATE (ER) 25 MG TAB.ER.24H PO SCH (09:36)
[2020-02-20] MEDS: PANTOPRAZOLE 40 MG/10 ML VIAL IVP SCH ×2 (09:37→21:39)
[2020-02-20] MEDS: NICOTINE 21MG/24HR PATCH TRANSDERM SCH (09:37)
[2020-02-20] MEDS: FOLIC ACID 1 MG TAB PO SCH (09:37)
[2020-02-20] MEDS: MULTIVITAMINS, THERA 1 EACH TAB PO SCH (09:37)
[2020-02-20] MEDS: BACLOFEN 10 MG TAB PO SCH ×3 (09:38→21:39)
[2020-02-20] MEDS: THIAMINE 100 MG TAB PO SCH ×2 (09:40→17:10)
--- NOTE | 2020-02-20 11:47 | P.PN ---
Subjective Progress Note Date: 02/20/20 CHIEF COMPLAINT: Diverticulitis HISTORY OF PRESENT ILLNESS: Patient is status post lower anterior resection, takedown of splenic flexure and partial omentectomy. Patient is sitting up in bed. Patient on IV Zosyn for possible pneumonia. He is on Xarelto for DVT in his leg. He still having some confusion. He also has been very sleepy. He is arousable. Poor oral intake. He does report some abdominal pain. He has been having bowel movements. He is currently on a regular diet. Computed tomography scan of abdomen and pelvis showing interval development of bilateral pleural effusions and associated atelectasis correlate to exclude pneumonia. Controlled bowel movement of a greater amount of ascites. Correlate for possible colitis which includes infectious and ischemic etiologies enteritis Computed tomography scan results reviewed with Dr. Lee PHYSICAL EXAM: VITAL SIGNS: Reviewed. GENERAL: Well-developed in no acute distress. HEENT: No sclera icterus. Extraocular movements grossly intact. Moist buccal mucosa. Head is atraumatic, normocephalic. ABDOMEN: clear drainage from incision due to ascites. Distended. Tender around incision site. NEUROLOGIC: Patient is sleepy and having confusion ASSESSMENT: 1. Diverticulitis status post lower anterior resection, takedown of splenic flexure and partial omentectomy 2. Alcohol abuse with alcohol withdrawal 3. New left leg DVT anticoagulated with Xarelto 4. Possible ileus 5. Black stools. Resolved. No evidence of upper GI bleed on EGD. EGD was normal 6. Altered mental status likely due to alcohol withdrawal syndrome. Patient evaluated by neurology 7. Possible right lower lobe pneumonia PLAN: -Antibiotics per ID -Continue regular diet -Continue CIWA protocol with Ativan, thiamine and multivitamin for alcohol abuse -GI prophylaxis Pepcid Physician Meat Scrubber note has been reviewed by physician. Signing provider agrees with the documented findings, assessment, and plan of care. Objective - Vital Signs Vital signs: Vital Signs Temp 97.5 F L 02/20/20 08:28 Pulse 113 H 02/20/20 08:28 Resp 16 02/20/20 08:28 BP 108/75 02/20/20 08:28 Pulse Ox 97 02/20/20 08:28 Intake & Output 02/19/20 02/20/20 02/20/20 18:59 06:59 18:59 Output Total 100 2049 Balance -100 -2049 Weight 58 kg Output: Urine 2049 Other: Voiding Method Indwelling Catheter Indwelling Catheter Indwelling Catheter # Bowel Movements 1 2 - Labs CBC & Chem 7: 02/19/20 07:21 02/19/20 07:21 Labs: Abnormal Lab Results - Last 24 Hours (Table) 02/19/20 02/19/20 Range/Units 07:21 17:05 Chloride 112 H (96-109) mmol/L Carbon Dioxide 18.3 L (21.6-31.8) mmol/L POC Glucose (mg/dL) 111 H (75-99) mg/dL Calcium 7.4 L (8.7-10.3) mg/dL Alkaline Phosphatase 140 H (41-126) U/L Total Protein 4.3 L (6.2-8.2) g/dL Albumin 1.90 L (3.80-4.90) g/dL Albumin/Globulin Ratio 0.79 L (1.60-3.17) g/dL
--- NOTE | 2020-02-20 13:32 | P.PN ---
Subjective Progress Note Date: 02/20/20 Patient was seen for a follow-up. Patient more alert, but still very confused today as per examination below. Patient denies any headache. Patient has been mentioned yesterday that he does drink "a lot". States he drinks "E chemical". Objective - Vital Signs Vital signs: Vital Signs Temp 97.5 F L 02/20/20 08:28 Pulse 113 H 02/20/20 08:28 Resp 16 02/20/20 08:28 BP 108/75 02/20/20 08:28 Pulse Ox 97 02/20/20 08:28 Intake & Output 02/19/20 02/20/20 02/20/20 18:59 06:59 18:59 Output Total 100 2049 Balance - -2049 - Weight 58 kg Output: Urine 100 2049 Other: Voiding Method Indwelling Catheter Indwelling Catheter Indwelling Catheter # Bowel Movements 1 2 - Exam Patient is much more alert and awake at this time. Patient with very slow mentation. Patient knows that he is in the hospital but could not tell the name. He states he is 66 years of age, could not tell the city he is in, but knows that he is in [place]. When I asked about the president, states "it doesn't matter". Speech is clear with no aphasia although appears slurring at times. face is symmetric. Patient strength appears equal bilaterally. Muscle strength appears to be getting better. Per nurse, patient did stand up with the physical therapy and made couple steps. - Labs CBC & Chem 7: 02/19/20 07:21 02/19/20 07:21 Labs: Abnormal Lab Results - Last 24 Hours (Table) 02/19/20 Range/Units 17:05 POC Glucose (mg/dL) 111 H (75-99) mg/dL Assessment and Plan Assessment: * Altered mental status, likely due to alcohol withdrawal syndrome. Probable superimposed toxic metabolic encephalopathy. Rule out underlying alcoholic dementia. * History of polysubstance abuse including alcohol, tobacco and perhaps marijuana. * Diverticulitis status post lower anterior resection, takedown of splenic flexure and partial omentectomy * Acute DVT left lower extremity, now on Xarelto. * Folate deficiency Plan: * Patient's mentation continues to fluctuate with variable levels of attention, concentration and orientation, probably suggestive of delirium. Avoid sedatives. * EEG showed moderate background slowing consistent with encephalopathy, no epileptiform activity seen. * CT head showed mild generalized atrophy. No acute intracranial process. * Continue folic acid 1 mg daily for folic acid deficiency. * Continue thiamine and multivitamins. * PT and OT when able to cooperate.
--- NOTE | 2020-02-20 14:23 | CDI ---
Documentation Clarification Form Date: 02/20/2020 01:55:52 PM From: Modesta Skelton RN CCDS Admit Date: 02/07/2020 08:00:00 AM Patient Name: Murray Carter Visit Number: [id number] Discharge Date: ATTENTION: The Clinical Documentation Specialists (CDI) and [facility] Coding Staff appreciate your assistance in clarifying documentation. Please respond to the clarification below the line at the bottom and electronically sign. The CDI & [facility] Coding staff will review the response and follow-up if needed. Please note: Queries are made part of the Legal Health Record. If you have any questions, please contact the author of this message via ITS. Dr. Hiram Lee Postop Ileus is documented in the Internal Medicine Progress Notes 02/15 through 02/18 Patients Admitting Diagnosis: Diverticulitis with stricture Post-Operative Diagnosis: Diverticulitis Procedure performed: Low anterior section, takedown of splenic flexure and partial omentectomy History/Risk Factors: 64-year-old male presents to [facility] for elective bowel resection. Medical history: Diverticulitis, Alcohol abuse, smoker, vitiligo, Clinical Indicators: 02/15 Progress Note by Internal Medicine: Abdominal x-ray film personally reviewed by me shows ileus 02/15 ABD XRAY: Findings of indicative of ileus 02/18 CT ABD/PELVIS: Abnormal thickening of the right colon. Treatment: Encouraged to ambulate In order to accurately reflect this patients severity of illness, please clarify if the post op ileus : -has been ruled out -is a complication of surgical procedure -is an expected outcome of the surgical procedure -is related to co-morbid condition(s) of -Other please specify -Unable to determine (Last Revision: May 2019) Ileus is an expected outcome of the surgical procedure [id number]
--- NOTE | 2020-02-20 22:06 | P.PN ---
Progress Note - Text Progress Note Date: 02/20/20 - Chief Complaint Abdominal surgery History of presenting complaint: This is a pleasant 64-year-old patient of . Patient been having complication to his diverticulitis. computed tomography scan on January 08. Showed some possible stricture. Hepatic steatosis. February 06- undergone low anterior resection. Epidural for pain control.patient had elevated d-dimer. Pulmonary embolism felt to be unlikely. CT was suboptimal. VQ scan was intermediate probability. Leg DVT treated with IV heparin. Had some dark stools.also patient had had altered mental status. [place] to be encephalopathy.computed tomography scan of the brain was unremarkable. EGD-no evidence of bleeding. Patient more awake after dose of baclofen cutback. changed over to xarelto.x-ray showing ileus. Patient did start having bowel movements. Repeat computed tomography scan of abdomen showed possible enteritis./Colitis.as abdomen appeared distended. Today-remains and Zosyn. Diet has been advanced per surgery. Little stool out of the colostomy bag. Denies pain. A bit less distention.. Oral intake poor. Review of systems: Was done for constitutional, cardiovascular, GI, pulmonary. relevant finding as above Active Medications Hydrocodone Bitart/Acetaminophen (Hydrocodone/Apap 5-325mg 1 Each Tab) 1 each PO Q4HR PRN PRN Reason: Pain Last Admin: 02/14/20 16:28 Dose: 1 each Documented by: Baclofen (Baclofen 10 Mg Tab) 5 mg PO TID [facility] Last Admin: 02/20/20 21:39 Dose: 5 mg Documented by: Benzocaine/Menthol (Benzocaine/Menthol Lozeng 1 Each Lozenge) 1 each MUCOUS MEM Q1HR PRN PRN Reason: Sore Throat Ferrous Sulfate (Ferrous Sulfate 325 Mg Tab) 325 mg PO BID-W/MEALS [facility] Last Admin: 02/20/20 17:10 Dose: 325 mg Documented by: Folic Acid (Folic Acid 1 Mg Tab) 1 mg PO DAILY [facility] Last Admin: 02/20/20 09:37 Dose: 1 mg Documented by: Lactated Ringer's (Lactated Ringers) 1,000 mls @ 20 mls/hr IV .Q24H [facility] Last Admin: 02/20/20 10:10 Dose: Not Given Documented by: Ropivacaine 250 mg/Hydromorphone HCl 5 mg/ Sodium Chloride 250 mls @ 0 mls/hr EPIDURAL .Q0M PRN; Protocol PRN Reason: Pain Control Last Admin: 02/09/20 17:33 Dose: 6 mls/hr Documented by: Dextrose/Sodium Chloride (Dextrose 5%-Ns Iv Soln) 1,000 mls @ 75 mls/hr IV .[id number] [facility] Last Admin: 02/20/20 10:10 Dose: 75 mls/hr Documented by: Piperacillin Sod/Tazobactam (Sod 3.375 gm/ Sodium Chloride) 100 mls @ 25 mls/hr IVPB Q8HR [facility] Last Admin: 02/20/20 15:45 Dose: 25 mls/hr Documented by: Lactated Ringer's (Lactated Ringers) 1,000 mls @ 20 mls/hr IV .Q24H [facility] Last Admin: 02/20/20 03:22 Dose: Not Given Documented by: Lidocaine HCl (Lidocaine 1% (10mg/Ml) For Iv Start) 0.1 ml INTRADERMA PER PROTOCOL PRN PRN Reason: IV Start Last Admin: 02/07/20 08:28 Dose: 0.1 ml Documented by: Lorazepam (Lorazepam 2 Mg/Ml Inj) 1 mg IV Q2HR PRN PRN Reason: CIWA 8 or 9 Last Admin: 02/18/20 01:42 Dose: 1 mg Documented by: Lorazepam (Lorazepam 2 Mg/Ml Inj) 1 mg IV Q1HR PRN PRN Reason: CIWA 10 to 15 Last Admin: 02/18/20 15:42 Dose: 1 mg Documented by: Metoclopramide HCl (Metoclopramide 5 Mg/Ml 2 Ml Vial) 10 mg IVP Q6HR PRN PRN Reason: Nausea and Vomiting Metoprolol Succinate (Metoprolol Succinate (Er) 25 Mg Tab.Er.24h) 25 mg PO DAILY [facility] Last Admin: 02/20/20 09:36 Dose: 25 mg Documented by: Miscellaneous Information (Magnesium Replacement Protocol 1 Each Misc) 1 each MISCELLANE DAILY PRN; Protocol PRN Reason: Per Protocol Miscellaneous Information (Potassium Replacement Protocol 1 Each Misc) 1 each MISCELLANE DAILY PRN; Protocol PRN Reason: Per Protocol Multivitamins (Multivitamins, Thera 1 Each Tab) 1 each PO DAILY [facility] Last Admin: 02/20/20 09:37 Dose: 1 each Documented by: Naloxone HCl (Naloxone 0.4 Mg/Ml 1 Ml Vial) 0.2 mg IV Q2M PRN PRN Reason: Opioid Reversal Nicotine (Nicotine 21mg/24hr Patch) 1 patch TRANSDERM DAILY [facility] Last Admin: 02/20/20 09:37 Dose: 1 patch Documented by: Nicotine Polacrilex (Nicotine Polacrilex 2 Mg Gum) 2 mg BUCCAL Q4HR PRN PRN Reason: Nicotine Cravings Ondansetron HCl (Ondansetron 4 Mg/2 Ml Vial) 4 mg IVP Q8HR PRN PRN Reason: Nausea And Vomiting Pantoprazole Sodium (Pantoprazole 40 Mg/10 Ml Vial) 40 mg IVP BID [facility] Last Admin: 02/20/20 21:39 Dose: 40 mg Documented by: Rivaroxaban (Rivaroxaban 15 Mg Tab) 15 mg PO BID-W/MEALS [facility] Last Admin: 02/20/20 17:10 Dose: 15 mg Documented by: Thiamine HCl (Thiamine 100 Mg Tab) 100 mg PO BID-W/[facility]ALS [facility] Last Admin: 02/20/20 17:10 Dose: 100 mg Documented by: Physical examination: VITAL SIGNS: 97.5, 113, 16, 108 dose any 5, 97% room air GENERAL: Laying in bed, awake EYES: Pupils equal. Conjunctiva normal. HEENT: External appearance of nose and ears normal, oral cavity grossly normal. NECK: JVD not raised; masses not palpable. HEART: First and second heart sounds are normal; no edema. LUNGS: Respiratory rate normal; decreased breath sounds. ABDOMEN: Soft, less distended, bowel sounds present nontender: Colostomy bag. Small amount of stool PSYCH: Answering questions INVESTIGATIONS, reviewed in the clinical context: White count 19.7 hemoglobin 9.8 potassium 3.6 creatinine 0.6, Computed tomography scan of the abdomen done today. Previous testing EEG shows evidence of encephalopathy Computed tomography scan of the brain-mild atrophy 2-D echocardiogram-EF 55-60% VQ scan-intermediate probability Chest CTA-suboptimal study. Doppler ultrasound-positive for thrombus within the distal popliteal vein White count 10.2 hemoglobin 14.2 potassium 3.6 B12 some 08 Previously AST 129 ALT 50 Computed tomography scan of the abdomen from January 08-possible colitis, diverticulitis, some esophagitis, hepatic steatosis Abdominal x-ray film personally reviewed by me shows ileus Assessment: -Status post low anterior resection, for diverticulitis complication -Postop ileus-some clinical improvement -Chronic nicotine dependence patient cigarette smoker -Clinical emphysema, asymptomatic -Suspect alcoholic hepatitis -Mild hyponatremia -Macrocytic anemia. -Acute DVT in the left distal popliteal vein -Acute alcohol withdrawal syndrome with improvement -Right lower lobe pneumonia -Abnormal computed tomography scan of the abdomen. Possible enteritis/colitis Plan: Continue IV Zosyn diet has been addressed. Other medications to continue. Discussed with Rosaura GENERAL CLERK from general surgery. Suggested TPN and lipids. As per dietitian oral intake has to be 0 before this can be prescribed. Thank you Dr. Lee
--- NOTE | 2020-02-20 23:11 | PN ---
PROGRESS NOTE DATE OF SERVICE: 02/20/2020 REASON FOR FOLLOWUP: Leukocytosis and a question of pneumonia. INTERVAL HISTORY: Patient is currently afebrile. He is breathing comfortably. Denies having any chest pain. No shortness of breath. Minimal cough. No abdominal pain. No diarrhea has been reported. PHYSICAL EXAMINATION: Blood pressure 115/70 with a pulse of 106. Temperature 98. He is 98% on room air. General description: The patient is a middle-aged male lying in bed in no distress. Respiratory system: Unlabored breathing, decreased breath sounds at bases. No wheeze. Heart S1, S2. Regular rate and rhythm. ABDOMEN: Soft, no tenderness. LABS: No new labs have been obtained today. Cultures have been negative. DIAGNOSTIC IMPRESSION AND PLAN: Patient with elevated white count which is multifactorial, possible component of pneumonia. CT abdominal and pelvis did not show any evidence of any perforation. Covered with Zosyn. Blood work will be repeated tomorrow and continue supportive care. MMODL / IJN: [id number] /
[2020-02-21] MEDS: PIPERACILLIN-TAZOBACTAM 3.375 GM in SODIUM CHLORIDE 0.9% 100 ML IVPB SCH ×3 (00:43→15:46)
[2020-02-21] MEDS: DEXTROSE 5%-0.9% NACL 1,000 ML IV SCH ×2 (02:42→19:03)
[2020-02-21] MEDS: LACTATED RINGERS 1,000 ML IV SCH ×2 (02:42→11:17)
[2020-02-21] MEDS: THIAMINE 100 MG TAB PO SCH ×2 (08:01→15:47)
[2020-02-21] MEDS: RIVAROXABAN 15 MG TAB PO SCH ×2 (08:01→15:46)
[2020-02-21] MEDS: FERROUS SULFATE 325 MG TAB PO SCH ×2 (08:01→15:46)
[2020-02-21 08:03] LABS: Basophils # (A) 0.1 k/uL (0-0.2); Basophils % (A) 0 %; Eosinophils # (A) 0.1 k/uL (0-0.7); Eosinophils % (A) 1 %; HCT 29.8 % (39.0-53.0); HGB 9.4 gm/dL (13.0-17.5); Hypochromasia Marked; Lymphocytes # (A) 1.5 k/uL (1.0-4.8); Lymphocytes % (A) 8 %; MCH 34.8 pg (25.0-35.0); MCHC 31.4 g/dL (31.0-37.0); MCV 110.9 fL (80.0-100.0); Macrocytosis Marked; Mean Platelet Volume 9.1; Monocytes # (A) 1.7 k/uL (0-1.0); Monocytes % (A) 8 %; Neutrophils % (A) 81 %; Platelet Count 452 k/uL (150-450); RBC 2.69 m/uL (4.30-5.90); RDW 14.3 % (11.5-15.5); WBC 19.7 k/uL (3.8-10.6)
[2020-02-21] MEDS: BACLOFEN 10 MG TAB PO SCH ×3 (08:28→21:58)
[2020-02-21] MEDS: PANTOPRAZOLE 40 MG/10 ML VIAL IVP SCH ×2 (08:29→21:57)
[2020-02-21] MEDS: FOLIC ACID 1 MG TAB PO SCH (08:29)
[2020-02-21] MEDS: METOPROLOL SUCCINATE (ER) 25 MG TAB.ER.24H PO SCH (08:29)
[2020-02-21] MEDS: NICOTINE 21MG/24HR PATCH TRANSDERM SCH (08:31)
--- NOTE | 2020-02-21 10:39 | P.PN ---
Subjective Progress Note Date: 02/21/20 CHIEF COMPLAINT: Diverticulitis HISTORY OF PRESENT ILLNESS: Patient is status post lower anterior resection, takedown of splenic flexure and partial omentectomy. Patient is complaining of abdominal pain. His abdomen is more distended today. The ascites has stopped draining from his incision. He did have a bowel movement. He is currently on a regular diet. He is more awake today. But still confused. Patient on IV Zosyn for possible pneumonia. He is on Xarelto for DVT in his leg. Patient examined before he was able to eat breakfast. He has been having poor oral intake PHYSICAL EXAM: VITAL SIGNS: Reviewed. GENERAL: Well-developed in no acute distress. HEENT: No sclera icterus. Extraocular movements grossly intact. Moist buccal mucosa. Head is atraumatic, normocephalic. ABDOMEN: Abdomen more distended. Diffuse tenderness with palpation more so on the lower abdomen. No further drainage from the incision NEUROLOGIC: Patient is sleepy and having confusion ASSESSMENT: 1. Diverticulitis status post lower anterior resection, takedown of splenic flexure and partial omentectomy 2. Alcohol abuse with alcohol withdrawal 3. New left leg DVT anticoagulated with Xarelto 4. Possible ileus 5. Black stools. Resolved. No evidence of upper GI bleed on EGD. EGD was normal 6. Altered mental status likely due to alcohol withdrawal syndrome. Patient evaluated by neurology 7. Possible right lower lobe pneumonia PLAN: -Antibiotics per ID -Continue regular diet -Encouraged patient to increase oral intake -Encouraged patient to increase activity -Continue CIWA protocol with Ativan, thiamine and multivitamin for alcohol abuse -GI prophylaxis Pepcid Physician Orthotics Prosthetics Technician note has been reviewed by physician. Signing provider agrees with the documented findings, assessment, and plan of care. Objective - Vital Signs Vital signs: Vital Signs Temp 97.8 F 02/21/20 07:41 Pulse 105 H 02/21/20 08:00 Resp 18 02/21/20 08:00 BP 127/83 02/21/20 07:41 Pulse Ox 98 02/21/20 00:15 Intake & Output 02/20/20 02/21/20 02/21/20 18:59 06:59 18:59 Intake Total 840 400 Output Total 850 600 1 Balance -10 -200 -1 Intake: IV 600 Dextrose 5%-0.9% NaCl 1, 600 000 ml @ 75 mls/hr IV . [id number] [facility] Rx#:[id number] Oral 240 400 Output: Urine 850 600 Stool 1 Other: Voiding Method Indwelling Catheter Indwelling Catheter Indwelling Catheter - Labs CBC & Chem 7: 02/21/20 06:08 02/19/20 07:21 Labs: Abnormal Lab Results - Last 24 Hours (Table) 02/21/20 Range/Units 06:08 WBC 19.7 H (3.8-10.6) k/uL RBC 2.69 L (4.30-5.90) m/uL Hgb 9.4 L (13.0-17.5) gm/dL Hct 29.8 L (39.0-53.0) % MCV 110.9 H (80.0-100.0) fL Plt Count 452 H (150-450) k/uL Neutrophils # 16.0 H (1.3-7.7) k/uL Monocytes # 1.7 H (0-1.0) k/uL Macrocytosis Marked A
[2020-02-21 11:03] LABS: Albumin 1.8 g/dL (3.80-4.90); Albumin/Globulin Ratio 0.69 (1.60-3.17); Anion Gap 9.1 mmol/L (4.00-12.00); BUN/Creat Ratio 18.33 Ratio (12.00-20.00); C Reactive Protein 9.2 mg/dL (0.0-0.8); Calcium 7.1 mg/dL (8.7-10.3); Carbon Dioxide 17.9 mmol/L (21.6-31.8); Globulin 2.6 g/dL (1.6-3.3); Potassium 3.2 mmol/L (3.5-5.5); Total Bilirubin 0.6 mg/dL (0.3-1.2); Total Protein 4.4 g/dL (6.2-8.2)
[2020-02-21] MEDS ORDERED: FLUCONAZOLE 100 MG TAB PO ONE (11:05)
[2020-02-21] MEDS: MULTIVITAMINS, THERA 1 EACH TAB PO SCH (12:29)
[2020-02-21] MEDS: POTASSIUM CHLORIDE ER 20 MEQ TAB.ER PO SCH ×2 (13:11→14:00)
--- NOTE | 2020-02-21 14:55 | P.PN ---
Subjective Progress Note Date: 02/21/20 Patient was seen for a follow-up. Patient sitting in the recliner, much more alert. Patient was oriented today. Patient denies any headache. Objective - Vital Signs Vital signs: Vital Signs Temp 97.8 F 02/21/20 07:41 Pulse 105 H 02/21/20 08:00 Resp 18 02/21/20 08:00 BP 127/83 02/21/20 07:41 Pulse Ox 98 02/21/20 00:15 Intake & Output 02/20/20 02/21/20 02/21/20 18:59 06:59 18:59 Intake Total 840 400 Output Total 850 600 1 Balance -10 -200 -1 Intake: IV 600 Dextrose 5%-0.9% NaCl 1, 600 000 ml @ 75 mls/hr IV . [id number] [facility] Rx#:[id number] Oral 240 400 Output: Urine 850 600 Stool 1 Other: Voiding Method Indwelling Catheter Indwelling Catheter Indwelling Catheter - Exam Patient is much more alert and awake at this time. Patient is sitting in the recliner. His mentation has improved. Better latency time to answer questions. Patient states is February 2020 and thinks he is in [facility] but then states is [facility]. He states current president is Mr. Man. He knows that he is in the hospital but does not remember the name. Speech is clear with no aphasia although appears slurring at times. face is symmetric. Patient strength appears equal bilaterally. Muscle strength appears to be getting better. - Labs CBC & Chem 7: 02/21/20 06:08 02/21/20 06:08 Labs: Abnormal Lab Results - Last 24 Hours (Table) 02/21/20 02/21/20 Range/Units 06:08 06:08 WBC 19.7 H (3.8-10.6) k/uL RBC 2.69 L (4.30-5.90) m/uL Hgb 9.4 L (13.0-17.5) gm/dL Hct 29.8 L (39.0-53.0) % MCV 110.9 H (80.0-100.0) fL Plt Count 452 H (150-450) k/uL Neutrophils # 16.0 H (1.3-7.7) k/uL Monocytes # 1.7 H (0-1.0) k/uL Macrocytosis Marked A Potassium 3.2 L (3.5-5.5) mmol/L Chloride 113 H (96-109) mmol/L Carbon Dioxide 17.9 L (21.6-31.8) mmol/L Glucose 114 H (70-110) mg/dL Calcium 7.1 L (8.7-10.3) mg/dL Alkaline Phosphatase 153 H (41-126) U/L C-Reactive Protein 9.2 H (0.0-0.8) mg/dL Total Protein 4.4 L (6.2-8.2) g/dL Albumin 1.80 L (3.80-4.90) g/dL Albumin/Globulin Ratio 0.69 L (1.60-3.17) g/dL Assessment and Plan Assessment: * Altered mental status, likely due to alcohol withdrawal syndrome. Probable superimposed toxic metabolic encephalopathy. Rule out underlying alcoholic dementia. * History of polysubstance abuse including alcohol, tobacco and perhaps mar ijuana. * Diverticulitis status post lower anterior resection, takedown of splenic flexure and partial omentectomy * Acute DVT left lower extremity, now on Xarelto. * Folate deficiency Plan: * Patient's mentation has much improved today. His orientation is better, shorter latency time to answer any questions. Avoid sedatives. * EEG showed moderate background slowing consistent with encephalopathy, no epileptiform activity seen. * CT head showed mild generalized atrophy. No acute intracranial process. * Continue folic acid 1 mg daily for folic acid deficiency. * Continue thiamine and multivitamins. * Patient on Zosyn for pneumonia. * PT and OT when able to cooperate.
--- NOTE | 2020-02-21 20:37 | P.PN ---
Progress Note - Text Progress Note Date: 02/21/20 - Chief Complaint Abdominal surgery History of presenting complaint: This is a pleasant 64-year-old patient of . Patient been having complication to his diverticulitis. computed tomography scan on January 08. Showed some possible stricture. Hepatic steatosis. February 06- undergone low anterior resection. Epidural for pain control.patient had elevated d-dimer. Pulmonary embolism felt to be unlikely. CT was suboptimal. VQ scan was intermediate probability. Leg DVT treated with IV heparin. Had some dark stools.also patient had had altered mental status. [place] to be encephalopathy.computed tomography scan of the brain was unremarkable. EGD-no evidence of bleeding. Patient more awake after dose of baclofen cutback. changed over to xarelto.x-ray showing ileus. Patient did start having bowel movements. Repeat computed tomography scan of abdomen showed possible enteritis./Colitis.as abdomen appeared distended. Today-IV Zosyn. Poor oral intake. Little stool out of the colostomy bag. Denies pain. Some abdominal distention... Review of systems: Was done for constitutional, cardiovascular, GI, pulmonary. relevant finding as above Active Medications Hydrocodone Bitart/Acetaminophen (Hydrocodone/Apap 5-325mg 1 Each Tab) 1 each PO Q4HR PRN PRN Reason: Pain Last Admin: 02/14/20 16:28 Dose: 1 each Documented by: Baclofen (Baclofen 10 Mg Tab) 5 mg PO TID [facility] [place] Last Admin: 02/21/20 15:46 Dose: 5 mg Documented by: Benzocaine/Menthol (Benzocaine/Menthol Lozeng 1 Each Lozenge) 1 each MUCOUS MEM Q1HR PRN PRN Reason: Sore Throat Ferrous Sulfate (Ferrous Sulfate 325 Mg Tab) 325 mg PO BID-W/MEALS [facility] Last Admin: 02/21/20 15:46 Dose: 325 mg Documented by: Folic Acid (Folic Acid 1 Mg Tab) 1 mg PO DAILY [facility] [place] Last Admin: 02/21/20 08:29 Dose: 1 mg Documented by: Lactated Ringer's (Lactated Ringers) 1,000 mls @ 20 mls/hr IV .Q24H [facility] [place] Last Admin: 02/21/20 11:17 Dose: Not Given Documented by: Ropivacaine 250 mg/Hydromorphone HCl 5 mg/ Sodium Chloride 250 mls @ 0 mls/hr EPIDURAL .Q0M PRN; Protocol PRN Reason: Pain Control Last Admin: 02/09/20 17:33 Dose: 6 mls/hr Documented by: Dextrose/Sodium Chloride (Dextrose 5%-Ns Iv Soln) 1,000 mls @ 75 mls/hr IV .[id number] [facility] [place] Last Admin: 02/21/20 19:03 Dose: Not Given Documented by: Piperacillin Sod/Tazobactam (Sod 3.375 gm/ Sodium Chloride) 100 mls @ 25 mls/hr IVPB Q8HR [facility] [place] Last Admin: 02/21/20 15:46 Dose: 25 mls/hr Documented by: Lactated Ringer's (Lactated Ringers) 1,000 mls @ 20 mls/hr IV .Q24H [facility] Last Admin: 02/21/20 02:42 Dose: Not Given Documented by: Lidocaine HCl (Lidocaine 1% (10mg/Ml) For Iv Start) 0.1 ml INTRADERMA PER PROTOCOL PRN PRN Reason: IV Start Last Admin: 02/07/20 08:28 Dose: 0.1 ml Documented by: Lorazepam (Lorazepam 2 Mg/Ml Inj) 1 mg IV Q2HR PRN PRN Reason: CIWA 8 or 9 Last Admin: 02/18/20 01:42 Dose: 1 mg Documented by: Lorazepam (Lorazepam 2 Mg/Ml Inj) 1 mg IV Q1HR PRN PRN Reason: CIWA 10 to 15 Last Admin: 02/18/20 15:42 Dose: 1 mg Documented by: Metoclopramide HCl (Metoclopramide 5 Mg/Ml 2 Ml Vial) 10 mg IVP Q6HR PRN PRN Reason: Nausea and Vomiting Metoprolol Succinate (Metoprolol Succinate (Er) 25 Mg Tab.Er.24h) 25 mg PO DAILY [facility] [place] Last Admin: 02/21/20 08:29 Dose: 25 mg Documented by: Miscellaneous Information (Magnesium Replacement Protocol 1 Each Misc) 1 each MISCELLANE DAILY PRN; Protocol PRN Reason: Per Protocol Miscellaneous Information (Potassium Replacement Protocol 1 Each Misc) 1 each MISCELLANE DAILY PRN; Protocol PRN Reason: Per Protocol Multivitamins (Multivitamins, Thera 1 Each Tab) 1 each PO DAILY [facility] [place] Last Admin: 02/21/20 12:29 Dose: 1 each Documented by: Naloxone HCl (Naloxone 0.4 Mg/Ml 1 Ml Vial) 0.2 mg IV Q2M PRN PRN Reason: Opioid Reversal Nicotine (Nicotine 21mg/24hr Patch) 1 patch TRANSDERM DAILY [facility] [place] Last Admin: 02/21/20 08:31 Dose: 1 patch Documented by: Nicotine Polacrilex (Nicotine Polacrilex 2 Mg Gum) 2 mg BUCCAL Q4HR PRN PRN Reason: Nicotine Cravings Ondansetron HCl (Ondansetron 4 Mg/2 Ml Vial) 4 mg IVP Q8HR PRN PRN Reason: Nausea And Vomiting Pantoprazole Sodium (Pantoprazole 40 Mg/10 Ml Vial) 40 mg IVP BID [facility] Last Admin: 02/21/20 08:29 Dose: 40 mg Documented by: Rivaroxaban (Rivaroxaban 15 Mg Tab) 15 mg PO BID-W/MEALS [facility] Last Admin: 02/21/20 15:46 Dose: 15 mg Documented by: Thiamine HCl (Thiamine 100 Mg Tab) 100 mg PO BID-W/MEALS [facility] [place] Last Admin: 02/21/20 15:47 Dose: 100 mg Documented by: Physical examination: VITAL SIGNS: 98, 96, 20, 116/82, 98% room air GENERAL: Laying in bed, awake EYES: Pupils equal. Conjunctiva normal. HEENT: External appearance of nose and ears normal, oral cavity grossly normal. NECK: JVD not raised; masses not palpable. HEART: First and second heart sounds are normal; no edema. LUNGS: Respiratory rate normal; decreased breath sounds. ABDOMEN: Soft, distended, bowel sounds present nontender: Colostomy bag. Small amount of stool PSYCH: Answering questions INVESTIGATIONS, reviewed in the clinical context: White count 19.7 hemoglobin 9.4 platelets 452 potassium 3.2 CRP 9.2 Computed tomography scan of the abdomen done today. Previous testing EEG shows evidence of encephalopathy Computed tomography scan of the brain-mild atrophy 2-D echocardiogram-EF 55-60% VQ scan-intermediate probability Chest CTA-suboptimal study. Doppler ultrasound-positive for thrombus within the distal popliteal vein White count 10.2 hemoglobin 14.2 potassium 3.6 B12 some 08 Previously AST 129 ALT 50 Computed tomography scan of the abdomen from January 08-possible colitis, diverticulitis, some esophagitis, hepatic steatosis Abdominal x-ray film personally reviewed by me shows ileus Assessment: -Status post low anterior resection, for diverticulitis complication -Postop ileus-some clinical improvement -Chronic nicotine dependence patient cigarette smoker -Clinical emphysema, asymptomatic -Suspect alcoholic hepatitis -Mild hyponatremia -Macrocytic anemia. -Acute DVT in the left distal popliteal vein -Acute alcohol withdrawal syndrome with improvement -Right lower lobe pneumonia -Abnormal computed tomography scan of the abdomen. Possible enteritis/colitis Plan: Continue IV Zosyn . Oral intake remains poor. Per dietitian patient not a candidate for TPN and lipids. She will discussed with Dr. Lee possible Dobbhoff tube. Thank you Dr. Lee
--- NOTE | 2020-02-21 23:27 | PN ---
PROGRESS NOTE DATE OF SERVICE: 02/21/2020 REASON FOR FOLLOWUP: Leukocytosis, pneumonia. INTERVAL HISTORY: The patient is currently afebrile. He is breathing comfortably. The patient denies having any chest pain. No shortness of breath or cough. No abdominal pain. No vomiting or any diarrhea. PHYSICAL EXAMINATION: Blood pressure 116/82 with a pulse of 96, temperature 98.5. He is 98% on room air. General description is a middle-aged male up in the in no distress. RESPIRATORY SYSTEM: Unlabored breathing, is clear to auscultation anteriorly. HEART: S1, S2. Regular rate and rhythm. ABDOMEN: Soft, no tenderness. LABS: White count still elevated. DIAGNOSTIC IMPRESSION AND PLAN: Patient with elevated white count which is multifactorial in this patient status post low anterior resection and did have slight drainage from incision possibly and possible pneumonia. Patient is covered with Zosyn. Will give a dose of Diflucan as high risk of and will monitor his white count. Continue supportive care. MMODL / IJN: [id number] /
[2020-02-22] MEDS: PIPERACILLIN-TAZOBACTAM 3.375 GM in SODIUM CHLORIDE 0.9% 100 ML IVPB SCH ×3 (00:57→16:05)
[2020-02-22] MEDS: LACTATED RINGERS 1,000 ML IV SCH ×2 (02:16→07:20)
[2020-02-22] MEDS: DEXTROSE 5%-0.9% NACL 1,000 ML IV SCH ×2 (07:20→17:36)
[2020-02-22] MEDS: RIVAROXABAN 15 MG TAB PO SCH ×2 (07:45→17:36)
[2020-02-22] MEDS: THIAMINE 100 MG TAB PO SCH ×2 (07:45→17:38)
[2020-02-22] MEDS: FERROUS SULFATE 325 MG TAB PO SCH ×2 (07:45→17:36)
[2020-02-22 08:04] LABS: Basophils % (A) 0 %; Eosinophils # (A) 0.1 k/uL (0-0.7); Eosinophils % (A) 1 %; HCT 29.6 % (39.0-53.0); HGB 9.4 gm/dL (13.0-17.5); Hypochromasia Marked; Lymphocytes # (A) 1.7 k/uL (1.0-4.8); Lymphocytes % (A) 10 %; MCH 34.3 pg (25.0-35.0); MCHC 31.9 g/dL (31.0-37.0); MCV 107.6 fL (80.0-100.0); Macrocytosis Moderate; Mean Platelet Volume 8.1; Monocytes # (A) 1.2 k/uL (0-1.0); Monocytes % (A) 7 %; Neutrophils # (A) 14.3 k/uL (1.3-7.7); Neutrophils % (A) 81 %; Platelet Count 461 k/uL (150-450); RBC 2.75 m/uL (4.30-5.90); RDW 14.1 % (11.5-15.5); WBC 17.6 k/uL (3.8-10.6)
[2020-02-22] MEDS: BACLOFEN 10 MG TAB PO SCH ×3 (09:39→21:43)
[2020-02-22] MEDS: NICOTINE 21MG/24HR PATCH TRANSDERM SCH (09:39)
[2020-02-22] MEDS: FOLIC ACID 1 MG TAB PO SCH (09:39)
[2020-02-22] MEDS: MULTIVITAMINS, THERA 1 EACH TAB PO SCH (09:39)
[2020-02-22] MEDS: METOPROLOL SUCCINATE (ER) 25 MG TAB.ER.24H PO SCH (09:39)
[2020-02-22] MEDS: PANTOPRAZOLE 40 MG/10 ML VIAL IVP SCH ×2 (09:40→21:42)
[2020-02-22 11:07] LABS: Albumin 1.7 g/dL (3.80-4.90); Albumin/Globulin Ratio 0.63 (1.60-3.17); Anion Gap 4.8 mmol/L (4.00-12.00); Calcium 7.4 mg/dL (8.7-10.3); Carbon Dioxide 18.2 mmol/L (21.6-31.8); Globulin 2.7 g/dL (1.6-3.3); Potassium 3.6 mmol/L (3.5-5.5); Total Bilirubin 0.5 mg/dL (0.2-1.2); Total Protein 4.4 g/dL (6.2-8.2)
--- NOTE | 2020-02-22 11:15 | P.PN ---
Subjective Progress Note Date: 02/22/20 CHIEF COMPLAINT: Diverticulitis HISTORY OF PRESENT ILLNESS: Patient seen and examined with Dr. Lee. Patient is status post lower anterior resection, takedown of splenic flexure and partial omentectomy. Patient is complaining of abdominal pain. His abdomen is more distended today with some erythema on the right. Likely symptoms are related to ileus and abdominal ascites with possible hernia. Patient does report eating better. WBC 17.6 hemoglobin 9.4 potassium 3.6 Patient on IV Zosyn for possible pneumonia. He is on Xarelto for DVT in his leg. PHYSICAL EXAM: VITAL SIGNS: Reviewed. GENERAL: Well-developed in no acute distress. HEENT: No sclera icterus. Extraocular movements grossly intact. Moist buccal mucosa. Head is atraumatic, normocephalic. ABDOMEN: Abdomen more distended. Mild erythema noted on the right side of the abdomen. Tender with palpation of the right side of the abdomen. Incision clean dry and intact. At this time no clear drainage from the incision. NEUROLOGIC: Patient is sleepy and having confusion ASSESSMENT: 1. Diverticulitis status post lower anterior resection, takedown of splenic flexure and partial omentectomy 2. Patient's abdominal distention likely related to ileus, ascites from his liver cirrhosis and possible hernia. Patient seen and examined with Dr. Lee. He'll continue to monitor patient closely 3. Alcohol abuse with alcohol withdrawal 4. New left leg DVT during this admission anticoagulated with Xarelto 5. Possible ileus 6. Black stools. Resolved. No evidence of upper GI bleed on EGD. EGD was normal 7. Altered mental status likely due to alcohol withdrawal syndrome. Patient evaluated by neurology 8. Possible right lower lobe pneumonia 9. Severe protein calorie malnutrition continue ensure PLAN: -Continue to monitor patient closely -Antibiotics per ID -Continue regular diet -Encouraged patient to increase oral intake -Encouraged patient to increase activity -Continue CIWA protocol with Ativan, thiamine and multivitamin for alcohol abuse -GI prophylaxis Pepcid Physician Personnel Coordinator note has been reviewed by physician. Signing provider agrees with the documented findings, assessment, and plan of care. Objective - Vital Signs Vital signs: Vital Signs Temp 97.2 F L 02/22/20 00:33 Pulse 85 02/22/20 00:33 Resp 18 02/22/20 04:40 BP 122/82 02/22/20 00:33 Pulse Ox 94 L 02/22/20 00:33 Intake & Output 02/21/20 02/22/20 02/22/20 18:59 06:59 18:59 Output Total 2 200 Balance -2 -200 Weight 58 kg Output: Urine 200 Stool 2 Other: Voiding Method Indwelling Catheter Indwelling Catheter Indwelling Catheter # Bowel Movements 0 1 - Labs CBC & Chem 7: 02/22/20 07:34 02/22/20 07:34 Labs: Abnormal Lab Results - Last 24 Hours (Table) 02/22/20 02/22/20 Range/Units 07:34 07:34 WBC 17.6 H (3.8-10.6) k/uL RBC 2.75 L (4.30-5.90) m/uL Hgb 9.4 L (13.0-17.5) gm/dL Hct 29.6 L (39.0-53.0) % MCV 107.6 H (80.0-100.0) fL Plt Count 461 H (150-450) k/uL Neutrophils # 14.3 H (1.3-7.7) k/uL Monocytes # 1.2 H (0-1.0) k/uL Chloride 116 H (96-109) mmol/L Carbon Dioxide 18.2 L (21.6-31.8) mmol/L Glucose 114 H (70-110) mg/dL Calcium 7.4 L (8.7-10.3) mg/dL Alkaline Phosphatase 150 H (41-126) U/L Total Protein 4.4 L (6.2-8.2) g/dL Albumin 1.70 L (3.80-4.90) g/dL Albumin/Globulin Ratio 0.63 L (1.60-3.17) g/dL
--- NOTE | 2020-02-22 15:36 | P.PN ---
Subjective Progress Note Date: 02/22/20 Patient was seen for a follow-up. Laying in the bed, appears very comfortable. Patient's mentation much more clear, appears almost normal. Patient denies headache. Patient states that he has never done any drugs, no marijuana. 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 He does admit to drinking heavily. Patient has smoked 1-1/2 pack per day for 30 years. Objective - Vital Signs Vital signs: Vital Signs Temp 97.8 F 02/22/20 14:54 Pulse 88 02/22/20 14:54 Resp 16 02/22/20 14:54 BP 121/78 02/22/20 14:54 Pulse Ox 99 02/22/20 14:54 Intake & Output 02/21/20 02/22/20 02/22/20 18:59 06:59 18:59 Intake Total 800 Output Total 2 200 Balance -2 -200 800 Weight 58 kg Intake: Oral 800 Output: Urine 200 Stool 2 Other: Voiding Method Indwelling Catheter Indwelling Catheter Indwelling Catheter # Bowel Movements 0 1 - Exam Patient is much more alert and awake at this time. Patient is laying in the bed. Speech, affect, mentation much improved. Patient knows it is February 2020 and that he is in [facility]. He knows that he is in the hospital, but could not tell the name. Speech and language functions are normal. Muscle strength is much improved in the arms and legs. Some deconditioning. There is no carotid bruit noticed on either side. S1 and S2 audible. No peripheral edema. - Labs CBC & Chem 7: 02/22/20 07:34 02/22/20 07:34 Labs: Abnormal Lab Results - Last 24 Hours (Table) 02/22/20 02/22/20 Range/Units 07:34 07:34 WBC 17.6 H (3.8-10.6) k/uL RBC 2.75 L (4.30-5.90) m/uL Hgb 9.4 L (13.0-17.5) gm/dL Hct 29.6 L (39.0-53.0) % MCV 107.6 H (80.0-100.0) fL Plt Count 461 H (150-450) k/uL Neutrophils # 14.3 H (1.3-7.7) k/uL Monocytes # 1.2 H (0-1.0) k/uL Chloride 116 H (96-109) mmol/L Carbon Dioxide 18.2 L (21.6-31.8) mmol/L Glucose 114 H (70-110) mg/dL Calcium 7.4 L (8.7-10.3) mg/dL Alkaline Phosphatase 150 H (41-126) U/L Total Protein 4.4 L (6.2-8.2) g/dL Albumin 1.70 L (3.80-4.90) g/dL Albumin/Globulin Ratio 0.63 L (1.60-3.17) g/dL Assessment and Plan Assessment: * Altered mental status, likely due to alcohol withdrawal syndrome. Probable superimposed toxic metabolic encephalopathy. Patient's mentation much improved. * History of polysubstance abuse including alcohol, and tobacco. Patient denies marijuana use. * Diverticulitis status post lower anterior resection, takedown of splenic flexure and partial omentectomy * Acute DVT left lower extremity, now on Xarelto. * Folate deficiency Plan: * Patient's mentation has much improved today. Patient's mentation appears much better today. Patient's affect also appears normal, and was able to provide h istory. * EEG showed moderate background slowing consistent with encephalopathy, no epileptiform activity seen. * CT head showed mild generalized atrophy. No acute intracranial process. * Continue folic acid 1 mg daily for folic acid deficiency. * Continue thiamine and multivitamins. * Patient on Zosyn for pneumonia. ID following. * PT and OT. * As patient's mentation has mostly cleared, and strength is improved, neurology will sign off. * Please call neurology if any other concerns.
--- NOTE | 2020-02-22 21:02 | P.PN ---
Progress Note - Text Progress Note Date: 02/22/20 - Chief Complaint Abdominal surgery History of presenting complaint: This is a pleasant 64-year-old patient of . Patient been having complication to his diverticulitis. computed tomography scan on January 08. Showed some possible stricture. Hepatic steatosis. February 06- undergone low anterior resection. Epidural for pain control.patient had elevated d-dimer. Pulmonary embolism felt to be unlikely. CT was suboptimal. VQ scan was intermediate probability. Leg DVT treated with IV heparin. Had some dark stools.also patient had had altered mental status. [place] to be encephalopathy.computed tomography scan of the brain was unremarkable. EGD-no evidence of bleeding. Patient more awake after dose of baclofen cutback. changed over to xarelto.x-ray showing ileus. Patient did start having bowel movements. Repeat computed tomography scan of abdomen showed possible enteritis./Colitis.as abdomen appeared distended. Today-laying in bed, awake.. Very poor oral intake. Barely eating. Abdomen distended. No bowel movement. Review of systems: Was done for constitutional, cardiovascular, GI, pulmonary. relevant finding as above Active Medications Hydrocodone Bitart/Acetaminophen (Hydrocodone/Apap 5-325mg 1 Each Tab) 1 each PO Q4HR PRN PRN Reason: Pain Last Admin: 02/14/20 16:28 Dose: 1 each Documented by: Baclofen (Baclofen 10 Mg Tab) 5 mg PO TID [facility] Last Admin: 02/22/20 16:05 Dose: 5 mg Documented by: Benzocaine/Menthol (Benzocaine/Menthol Lozeng 1 Each Lozenge) 1 each MUCOUS MEM Q1HR PRN PRN Reason: Sore Throat Ferrous Sulfate (Ferrous Sulfate 325 Mg Tab) 325 mg PO BID-W/MEALS [facility] Last Admin: 02/22/20 17:36 Dose: 325 mg Documented by: Folic Acid (Folic Acid 1 Mg Tab) 1 mg PO DAILY [facility] Last Admin: 02/22/20 09:39 Dose: 1 mg Documented by: Lactated Ringer's (Lactated Ringers) 1,000 mls @ 20 mls/hr IV .Q24H [facility] Last Admin: 02/22/20 07:20 Dose: Not Given Documented by: Ropivacaine 250 mg/Hydromorphone HCl 5 mg/ Sodium Chloride 250 mls @ 0 mls/hr EPIDURAL .Q0M PRN; Protocol PRN Reason: Pain Control Last Admin: 02/09/20 17:33 Dose: 6 mls/hr Documented by: Dextrose/Sodium Chloride (Dextrose 5%-Ns Iv Soln) 1,000 mls @ 75 mls/hr IV .[id number] [facility] Last Admin: 02/22/20 17:36 Dose: Not Given Documented by: Piperacillin Sod/Tazobactam (Sod 3.375 gm/ Sodium Chloride) 100 mls @ 25 mls/hr IVPB Q8HR [facility] Last Admin: 02/22/20 16:05 Dose: 25 mls/hr Documented by: Lactated Ringer's (Lactated Ringers) 1,000 mls @ 20 mls/hr IV .Q24H [facility] Last Admin: 02/22/20 02:16 Dose: Not Given Documented by: Lidocaine HCl (Lidocaine 1% (10mg/Ml) For Iv Start) 0.1 ml INTRADERMA PER PROTOCOL PRN PRN Reason: IV Start Last Admin: 02/07/20 08:28 Dose: 0.1 ml Documented by: Lorazepam (Lorazepam 2 Mg/Ml Inj) 1 mg IV Q2HR PRN PRN Reason: CIWA 8 or 9 Last Admin: 02/18/20 01:42 Dose: 1 mg Documented by: Lorazepam (Lorazepam 2 Mg/Ml Inj) 1 mg IV Q1HR PRN PRN Reason: CIWA 10 to 15 Last Admin: 02/18/20 15:42 Dose: 1 mg Documented by: Metoclopramide HCl (Metoclopramide 5 Mg/Ml 2 Ml Vial) 10 mg IVP Q6HR PRN PRN Reason: Nausea and Vomiting Metoprolol Succinate (Metoprolol Succinate (Er) 25 Mg Tab.Er.24h) 25 mg PO DAILY [facility] Last Admin: 02/22/20 09:39 Dose: 25 mg Documented by: Miscellaneous Information (Magnesium Replacement Protocol 1 Each Misc) 1 each MISCELLANE DAILY PRN; Protocol PRN Reason: Per Protocol Miscellaneous Information (Potassium Replacement Protocol 1 Each Misc) 1 each MISCELLANE DAILY PRN; Protocol PRN Reason: Per Protocol Multivitamins (Multivitamins, Thera 1 Each Tab) 1 each PO DAILY [facility] Last Admin: 02/22/20 09:39 Dose: 1 each Documented by: Naloxone HCl (Naloxone 0.4 Mg/Ml 1 Ml Vial) 0.2 mg IV Q2M PRN PRN Reason: Opioid Reversal Nicotine (Nicotine 21mg/24hr Patch) 1 patch TRANSDERM DAILY [facility] Last Admin: 02/22/20 09:39 Dose: 1 patch Documented by: Nicotine Polacrilex (Nicotine Polacrilex 2 Mg Gum) 2 mg BUCCAL Q4HR PRN PRN Reason: Nicotine Cravings Ondansetron HCl (Ondansetron 4 Mg/2 Ml Vial) 4 mg IVP Q8HR PRN PRN Reason: Nausea And Vomiting Pantoprazole Sodium (Pantoprazole 40 Mg/10 Ml Vial) 40 mg IVP BID [facility] Last Admin: 02/22/20 09:40 Dose: 40 mg Documented by: Rivaroxaban (Rivaroxaban 15 Mg Tab) 15 mg PO BID-W/MEALS [facility] Last Admin: 02/22/20 17:36 Dose: 15 mg Documented by: Thiamine HCl (Thiamine 100 Mg Tab) 100 mg PO BID-W/MEALS [facility] Last Admin: 02/22/20 17:38 Dose: 100 mg Documented by: Physical examination: VITAL SIGNS: 97.8, 93, 12, 115/81, 97% on room air GENERAL: Laying in bed, awake EYES: Pupils equal. Conjunctiva normal. HEENT: External appearance of nose and ears normal, oral cavity grossly normal. NECK: JVD not raised; masses not palpable. HEART: First and second heart sounds are normal; no edema. LUNGS: Respiratory rate normal; decreased breath sounds. ABDOMEN: Soft, very distended, bowel sounds present, area of subcutaneous swelling around the incision site. PSYCH: Answering questions INVESTIGATIONS, reviewed in the clinical context: White count 7.6 hemoglobin 9.4 increased neutrophils potassium 3.6 albumin 1.7 Computed tomography scan of the abdomen done today. Previous testing EEG shows evidence of encephalopathy Computed tomography scan of the brain-mild atrophy 2-D echocardiogram-EF 55-60% VQ scan-intermediate probability Chest CTA-suboptimal study. Doppler ultrasound-positive for thrombus within the distal popliteal vein White count 10.2 hemoglobin 14.2 potassium 3.6 B12 some 08 Previously AST 129 ALT 50 Computed tomography scan of the abdomen from January 08-possible colitis, diverticulitis, some esophagitis, hepatic steatosis Abdominal x-ray film personally reviewed by me shows ileus Assessment: -Status post low anterior resection, for diverticulitis complication -Postop ileus-some clinical improvement -Chronic nicotine dependence patient cigarette smoker -Clinical emphysema, asymptomatic -Suspect alcoholic hepatitis -Ascites -Mild hyponatremia -Macrocytic anemia. -Acute DVT in the left distal popliteal vein -Acute alcohol withdrawal syndrome with improvement -Right lower lobe pneumonia -Abnormal computed tomography scan of the abdomen. Possible enteritis/colitis- ischemic bowel Plan: Continue IV Zosyn . Oral intake remains poor. Did convey to Dr. Lee lasted about if removing some yvonne may be helpful. Did also discuss with Dr. Thornton. Thank you Dr. Lee
[2020-02-22] MEDS: FLUCONAZOLE 100 MG TAB PO SCH (22:53)
[2020-02-23] MEDS: PIPERACILLIN-TAZOBACTAM 3.375 GM in SODIUM CHLORIDE 0.9% 100 ML IVPB SCH ×3 (01:03→16:09)
[2020-02-23] MEDS: LACTATED RINGERS 1,000 ML IV SCH ×2 (06:09→12:11)
--- NOTE | 2020-02-23 06:22 | PN ---
PROGRESS NOTE DATE OF SERVICE: 02/22/2020 REASON FOR FOLLOWUP: Leukocytosis, pneumonia and a question abdominal infection. INTERVAL HISTORY: Patient is currently afebrile. The patient is breathing comfortably. Denies having any chest pain. No shortness or cough. Did have some abdominal pain but no worsening and no diarrhea. PHYSICAL EXAMINATION: Blood pressure 119/79 with pulse of 103, temperature 97.5. He is 98% on room air. General description is a middle-aged male up in the bed in no distress. Respiratory system: Unlabored breathing, decreased breath sounds in the bases. No wheeze. HEART: S1, S2. Regular rate and rhythm. Abdomen is soft, mildly distended with bowel sounds on the right lateral side. incision. No drainage was noted. LABS: Hemoglobin 9.4, white count 17.6, BUN of 12, creatinine 0.6. DIAGNOSTIC IMPRESSION AND PLAN: Patient with elevated white count which is multifactorial in this patient who did have a possible pneumonia with concern for abdominal source. The patient did have an area for swelling on the right middle side with concern for possible hematoma or seroma. This was discussed with the surgeon for possible removal of some of the stitches. However, concern has been for possible herniation could lead to worsening if he opens it up. The patient will be monitored closely over the weekend. Continue with Zosyn and Diflucan and white count showing a downward trend. MMODL / IJN: [id number] /
[2020-02-23] MEDS: FLUCONAZOLE 100 MG TAB PO SCH (10:35)
[2020-02-23] MEDS: BACLOFEN 10 MG TAB PO SCH ×3 (10:35→20:32)
[2020-02-23] MEDS: FERROUS SULFATE 325 MG TAB PO SCH ×2 (10:35→17:33)
[2020-02-23] MEDS: FOLIC ACID 1 MG TAB PO SCH (10:35)
[2020-02-23] MEDS: METOPROLOL SUCCINATE (ER) 25 MG TAB.ER.24H PO SCH (10:36)
[2020-02-23] MEDS: MULTIVITAMINS, THERA 1 EACH TAB PO SCH (10:36)
[2020-02-23] MEDS: THIAMINE 100 MG TAB PO SCH ×2 (10:36→17:33)
[2020-02-23] MEDS: RIVAROXABAN 15 MG TAB PO SCH ×2 (10:36→17:34)
[2020-02-23] MEDS: NICOTINE 21MG/24HR PATCH TRANSDERM SCH (10:41)
[2020-02-23] MEDS: PANTOPRAZOLE 40 MG/10 ML VIAL IVP SCH ×2 (10:48→20:32)
[2020-02-23] MEDS: DEXTROSE 5%-0.9% NACL 1,000 ML IV SCH ×2 (12:11→17:38)
--- NOTE | 2020-02-23 13:58 | P.PN ---
Subjective Progress Note Date: 02/23/20 CHIEF COMPLAINT: Diverticulitis HISTORY OF PRESENT ILLNESS: The patient is a 64-year-old male with history alcoholism and had low anterior resection for diverticulitis. He has a DVT that is being treated. He is tolerating regular diet with beef stroganoff. He denies any moderate pain. Nurse brings concern of redness along incision. Per documentation, new for the last 3 days. He has history of ascites ROS: No reports of nausea and vomiting. No fevers or chills. No new chest pain. Has productive sputum PHYSICAL EXAM: VITAL SIGNS: Reviewed CONSTITUTIONAL: Well developed and in no acute distress. EYES: Conjuctivae without sclera icterus. Extraocular movements grossly intact. HEAD, EARS, NOSE, THROAT: Moist buccal mucosa. Head is atraumatic, normocephalic. Hears conversational speech. No nasal drainage. NECK: Supple. RESPIRATORY: Non-labored respirations and equal bilateral excursions. CARDIOVASCULAR: Palpable 2+ radial pulses. ABDOMEN: Minimal erythema 10 cm x 3 cm along lower incision. No active drainage. No peritonitis. No moderate tenderness. MUSCULOSKELETAL: No gross deformity of the lower extremities noted. No clubbing. No cyanosis. SKIN: Good skin turgor. Well perfused. NEUROLOGIC: Cranial nerves II through XII grossly intact. No focal or lateralizing signs. PSYCH: Appropriate affect. Alert and oriented to person, place and time. CLINICAL LABS: WBC down from 19,000+ to 17,000+ ASSESSMENT: 1. Diverticulitis 2. Status post low anterior resection 3. Alcoholism 4. Ascites 5. Leukocytosis. PLAN: 1. Clinically, no moderate erythema. May need adjustment of antibiotics. 2. He is tolerating diet, otherwise stable. Objective - Vital Signs Vital signs: Vital Signs Temp 97.5 F L 02/23/20 07:00 Pulse 94 02/23/20 07:00 Resp 16 02/23/20 07:00 BP 117/77 02/23/20 07:00 Pulse Ox 97 02/23/20 07:00 Intake & Output 02/22/20 02/23/20 02/23/20 18:59 06:59 18:59 Intake Total 800 Output Total 430 250 Balance 370 -250 Intake: Oral 800 Output: Urine 430 250 Other: Voiding Method Indwelling Catheter Indwelling Catheter Indwelling Catheter # Voids 1 # Bowel Movements 1 - Labs CBC & Chem 7: 02/22/20 07:34 02/22/20 07:34 Assessment and Plan (1) Diverticulitis Current Visit: Yes Status: Acute Code(s): K57.92 - DVTRCLI OF INTEST, PART UNSP, W/O PERF OR ABSCESS W/O BLEED SNOMED Code(s): 473943215 (2) Ascites Current Visit: Yes Status: Acute Code(s): R18.8 - OTHER ASCITES SNOMED Code(s): 108650187 (3) Alcoholism Current Visit: Yes Status: Acute Code(s): F10.20 - ALCOHOL DEPENDENCE, UNCOMPLICATED SNOMED Code(s): 3518619 (4) Delirium tremens Current Visit: Yes Status: Acute Code(s): F10.231 - ALCOHOL DEPENDENCE WITH WITHDRAWAL DELIRIUM SNOMED Code(s): 2270582
--- NOTE | 2020-02-23 21:09 | P.PN ---
Progress Note - Text Progress Note Date: 02/23/20 - Chief Complaint Abdominal surgery History of presenting complaint: This is a pleasant 64-year-old patient of . Patient been having complication to his diverticulitis. computed tomography scan on January 08. Showed some possible stricture. Hepatic steatosis. February 06- undergone low anterior resection. Epidural for pain control.patient had elevated d-dimer. Pulmonary embolism felt to be unlikely. CT was suboptimal. VQ scan was intermediate probability. Leg DVT treated with IV heparin. Had some dark stools.also patient had had altered mental status. [place] to be encephalopathy.computed tomography scan of the brain was unremarkable. EGD-no evidence of bleeding. Patient more awake after dose of baclofen cutback. changed over to xarelto.x-ray showing ileus. Patient did start having bowel movements. Repeat computed tomography scan of abdomen showed possible enteritis./Colitis.as abdomen appeared distended. Today-laying in bed, awake.. Oral intake remains poor-occasional snack. Abdominal distention. Review of systems: Was done for constitutional, cardiovascular, GI, pulmonary. relevant finding as above Active Medications Hydrocodone Bitart/Acetaminophen (Hydrocodone/Apap 5-325mg 1 Each Tab) 1 each PO Q4HR PRN PRN Reason: Pain Last Admin: 02/14/20 16:28 Dose: 1 each Documented by: Baclofen (Baclofen 10 Mg Tab) 5 mg PO TID [facility] Last Admin: 02/23/20 20:32 Dose: 5 mg Documented by: Benzocaine/Menthol (Benzocaine/Menthol Lozeng 1 Each Lozenge) 1 each MUCOUS MEM Q1HR PRN PRN Reason: Sore Throat Ferrous Sulfate (Ferrous Sulfate 325 Mg Tab) 325 mg PO BID-W/MEALS [facility] Last Admin: 02/23/20 17:33 Dose: 325 mg Documented by: Fluconazole (Fluconazole 100 Mg Tab) 100 mg PO DAILY [facility] Last Admin: 02/23/20 10:35 Dose: 100 mg Documented by: Folic Acid (Folic Acid 1 Mg Tab) 1 mg PO DAILY [facility] Last Admin: 02/23/20 10:35 Dose: 1 mg Documented by: Lactated Ringer's (Lactated Ringers) 1,000 mls @ 20 mls/hr IV .Q24H [facility] Last Admin: 02/23/20 12:11 Dose: Not Given Documented by: Dextrose/Sodium Chloride (Dextrose 5%-Ns Iv Soln) 1,000 mls @ 75 mls/hr IV .[id number] [facility] Last Admin: 02/23/20 17:38 Dose: 75 mls/hr Documented by: Piperacillin Sod/Tazobactam (Sod 3.375 gm/ Sodium Chloride) 100 mls @ 25 mls/hr IVPB Q8HR [facility] Last Admin: 02/23/20 16:09 Dose: 25 mls/hr Documented by: Lactated Ringer's (Lactated Ringers) 1,000 mls @ 20 mls/hr IV .Q24H [facility] Last Admin: 02/23/20 06:09 Dose: Not Given Documented by: Lidocaine HCl (Lidocaine 1% (10mg/Ml) For Iv Start) 0.1 ml INTRADERMA PER PROTOCOL PRN PRN Reason: IV Start Last Admin: 02/07/20 08:28 Dose: 0.1 ml Documented by: Lorazepam (Lorazepam 2 Mg/Ml Inj) 1 mg IV Q2HR PRN PRN Reason: CIWA 8 or 9 Last Admin: 02/18/20 01:42 Dose: 1 mg Documented by: Lorazepam (Lorazepam 2 Mg/Ml Inj) 1 mg IV Q1HR PRN PRN Reason: CIWA 10 to 15 Last Admin: 02/18/20 15:42 Dose: 1 mg Documented by: Metoclopramide HCl (Metoclopramide 5 Mg/Ml 2 Ml Vial) 10 mg IVP Q6HR PRN PRN Reason: Nausea and Vomiting Metoprolol Succinate (Metoprolol Succinate (Er) 25 Mg Tab.Er.24h) 25 mg PO DAILY [facility] Last Admin: 02/23/20 10:36 Dose: 25 mg Documented by: Miscellaneous Information (Magnesium Replacement Protocol 1 Each Misc) 1 each MISCELLANE DAILY PRN; Protocol PRN Reason: Per Protocol Miscellaneous Information (Potassium Replacement Protocol 1 Each Misc) 1 each MISCELLANE DAILY PRN; Protocol PRN Reason: Per Protocol Multivitamins (Multivitamins, Thera 1 Each Tab) 1 each PO DAILY [facility] Last Admin: 02/23/20 10:36 Dose: 1 each Documented by: Naloxone HCl (Naloxone 0.4 Mg/Ml 1 Ml Vial) 0.2 mg IV Q2M PRN PRN Reason: Opioid Reversal Nicotine (Nicotine 21mg/24hr Patch) 1 patch TRANSDERM DAILY [facility] Last Admin: 02/23/20 10:41 Dose: 1 patch Documented by: Nicotine Polacrilex (Nicotine Polacrilex 2 Mg Gum) 2 mg BUCCAL Q4HR PRN PRN Reason: Nicotine Cravings Ondansetron HCl (Ondansetron 4 Mg/2 Ml Vial) 4 mg IVP Q8HR PRN PRN Reason: Nausea And Vomiting Pantoprazole Sodium (Pantoprazole 40 Mg/10 Ml Vial) 40 mg IVP BID [facility] Last Admin: 02/23/20 20:32 Dose: 40 mg Documented by: Rivaroxaban (Rivaroxaban 15 Mg Tab) 15 mg PO BID-W/MEALS [facility] Last Admin: 02/23/20 17:34 Dose: 15 mg Documented by: Thiamine HCl (Thiamine 100 Mg Tab) 100 mg PO BID-W/MEALS [facility] Last Admin: 02/23/20 17:33 Dose: 100 mg Documented by: Physical examination: VITAL SIGNS: 97.8, 91, 17, 150/92, 98% room air GENERAL: Laying in bed, awake EYES: Pupils equal. Conjunctiva normal. HEENT: External appearance of nose and ears normal, oral cavity grossly normal. NECK: JVD not raised; masses not palpable. HEART: First and second heart sounds are normal; no edema. LUNGS: Respiratory rate normal; decreased breath sounds. ABDOMEN: Soft, distended, bowel sounds present, area of subcutaneous swelling around the incision site. PSYCH: Answering questions INVESTIGATIONS, reviewed in the clinical context: White count 7.6 hemoglobin 9.4 increased neutrophils potassium 3.6 albumin 1.7 Computed tomography scan of the abdomen done today. Previous testing EEG shows evidence of encephalopathy Computed tomography scan of the brain-mild atrophy 2-D echocardiogram-EF 55-60% VQ scan-intermediate probability Chest CTA-suboptimal study. Doppler ultrasound-positive for thrombus within the distal popliteal vein White count 10.2 hemoglobin 14.2 potassium 3.6 B12 some 08 Previously AST 129 ALT 50 Computed tomography scan of the abdomen from January 08-possible colitis, diverticulitis, some esophagitis, hepatic steatosis Abdominal x-ray film personally reviewed by me shows ileus Assessment: -Status post low anterior resection, for diverticulitis complication -Postop ileus- -Chronic nicotine dependence patient cigarette smoker -Clinical emphysema, asymptomatic -Suspect alcoholic hepatitis -Ascites -Mild hyponatremia -Macrocytic anemia. -Acute DVT in the left distal popliteal vein -Acute alcohol withdrawal syndrome with improvement -Right lower lobe pneumonia -Abnormal computed tomography scan of the abdomen. Possible enteritis/colitis- ischemic bowel Plan: Continue IV Zosyn . Oral intake remains poor. He followed by surgery. Alternative feeding when deemed appropriate by surgery. Also guarded. Thank you Dr. Lee
--- NOTE | 2020-02-23 23:42 | PN ---
PROGRESS NOTE DATE OF SERVICE: 02/23/2020. REASON FOR FOLLOWUP: Leukocytosis, possible pneumonia, question pneumonia, question of abdominal infection. INTERVAL HISTORY: Patient is currently afebrile. He has been comfortable on room air. Denies having any chest pain or any cough. Still has some swelling on the mid incision area, but no drainage and denies any diarrhea. PHYSICAL EXAMINATION: Blood pressure 121/84 with a pulse of 100, temperature 97.9. He is 97% on room air. General description: The patient is a middle-aged male lying in bed in no distress. Respiratory system: Unlabored breathing, clear to auscultation anteriorly. Heart S1, S2. Regular rate and rhythm. ABDOMEN: Soft. He did have swelling around the mid part of the incision. The redness has decreased. No drainage. LABS: No new labs have been obtained today. DIAGNOSTIC IMPRESSION AND PLAN: Patient with elevated white count which is multifactorial with concern for possible pneumonia or abdominal wall cellulitis/abscess versus hernia. This was discussed with the surgeon yesterday recommended against any surgical intervention. We will keep the patient on Zosyn and Diflucan. Repeat CBC tomorrow and monitor clinical course closely. MMODL / IJN: [id number] /
[2020-02-24] MEDS: PIPERACILLIN-TAZOBACTAM 3.375 GM in SODIUM CHLORIDE 0.9% 100 ML IVPB SCH ×3 (00:03→15:29)
[2020-02-24] MEDS: LACTATED RINGERS 1,000 ML IV SCH (02:21)
[2020-02-24] MEDS: PANTOPRAZOLE 40 MG/10 ML VIAL IVP SCH ×2 (07:27→20:33)
[2020-02-24] MEDS: DEXTROSE 5%-0.9% NACL 1,000 ML IV SCH ×2 (07:28→17:22)
[2020-02-24] MEDS: FERROUS SULFATE 325 MG TAB PO SCH ×2 (07:30→17:20)
[2020-02-24] MEDS: RIVAROXABAN 15 MG TAB PO SCH ×2 (07:30→17:20)
[2020-02-24] MEDS: THIAMINE 100 MG TAB PO SCH ×2 (07:30→17:20)
[2020-02-24] MEDS: BACLOFEN 10 MG TAB PO SCH ×3 (09:20→20:33)
[2020-02-24] MEDS: FOLIC ACID 1 MG TAB PO SCH (09:20)
[2020-02-24] MEDS: FLUCONAZOLE 100 MG TAB PO SCH (09:21)
[2020-02-24] MEDS: METOPROLOL SUCCINATE (ER) 25 MG TAB.ER.24H PO SCH (09:21)
[2020-02-24] MEDS: MULTIVITAMINS, THERA 1 EACH TAB PO SCH (09:21)
[2020-02-24] MEDS: NICOTINE 21MG/24HR PATCH TRANSDERM SCH (09:21)
--- NOTE | 2020-02-24 14:45 | P.PN ---
Subjective Progress Note Date: 02/24/20 CHIEF COMPLAINT: Diverticulitis HISTORY OF PRESENT ILLNESS: The patient is a 64-year-old male with history alcoholism and had low anterior resection for diverticulitis. No new issues overnight. ROS: No reports of nausea and vomiting. No fevers or chills. No new chest pain. PHYSICAL EXAM: VITAL SIGNS: Reviewed CONSTITUTIONAL: Well developed and in no acute distress. EYES: Conjuctivae without sclera icterus. Extraocular movements grossly intact. HEAD, EARS, NOSE, THROAT: Moist buccal mucosa. Head is atraumatic, normocephalic. Hears conversational speech. No nasal drainage. NECK: Supple. RESPIRATORY: Non-labored respirations and equal bilateral excursions. CARDIOVASCULAR: Palpable 2+ radial pulses. ABDOMEN: Minimal erythema 10 cm x 3 cm along lower incision. No active drainage. Nontender. MUSCULOSKELETAL: No gross deformity of the lower extremities noted. No clubbing. No cyanosis. SKIN: Good skin turgor. Well perfused. NEUROLOGIC: Cranial nerves II through XII grossly intact. No focal or lateralizing signs. PSYCH: Appropriate affect. Alert and oriented to person, place and time. CLINICAL LABS: No new labs ASSESSMENT: 1. Diverticulitis 2. Status post low anterior resection 3. Alcoholism 4. Ascites 5. Leukocytosis. 6. Abdominal wall cellulitis PLAN: 1. Erythema is stable. May benefit from ultrasound to exclude underlying abdominal wall abscess. Objective - Vital Signs Vital signs: Vital Signs Temp 97.6 F 02/24/20 07:00 Pulse 78 02/24/20 07:00 Resp 17 02/24/20 07:00 BP 119/91 02/24/20 07:00 Pulse Ox 98 02/24/20 07:00 Intake & Output 02/23/20 02/24/20 02/24/20 18:59 06:59 18:59 Intake Total 600 100 600 Output Total 400 300 100 Balance 200 -200 500 Intake: IV 600 600 Dextrose 5%-0.9% NaCl 1, 600 600 000 ml @ 75 mls/hr IV . [id number] [facility] Rx#:[id number] Oral 100 Output: Urine 400 300 100 Uretheral (Lemus) 400 Other: Voiding Method Indwelling Catheter Indwelling Catheter # Bowel Movements 1 1 - Labs CBC & Chem 7: 02/22/20 07:34 02/22/20 07:34 Assessment and Plan (1) Diverticulitis Current Visit: Yes Status: Acute Code(s): K57.92 - DVTRCLI OF INTEST, PART UNSP, W/O PERF OR ABSCESS W/O BLEED SNOMED Code(s): 136272012 (2) Ascites Current Visit: Yes Status: Acute Code(s): R18.8 - OTHER ASCITES SNOMED Code(s): 846038424 (3) Alcoholism Current Visit: Yes Status: Acute Code(s): F10.20 - ALCOHOL DEPENDENCE, UNCOMPLICATED SNOMED Code(s): 7983992 (4) Delirium tremens Current Visit: Yes Status: Acute Code(s): F10.231 - ALCOHOL DEPENDENCE WITH WITHDRAWAL DELIRIUM SNOMED Code(s): 3709161
[2020-02-24] MEDS ORDERED: SODIUM CHLORIDE 0.9% 500 ML 250 ML IV ONE (14:59)
--- NOTE | 2020-02-24 20:17 | P.PN ---
Progress Note - Text Progress Note Date: 02/24/20 - Chief Complaint Abdominal surgery History of presenting complaint: This is a pleasant 64-year-old patient of . Patient been having complication to his diverticulitis. computed tomography scan on January 08. Showed some possible stricture. Hepatic steatosis. February 06- undergone low anterior resection. Epidural for pain control.patient had elevated d-dimer. Pulmonary embolism felt to be unlikely. CT was suboptimal. VQ scan was intermediate probability. Leg DVT treated with IV heparin. Had some dark stools.also patient had had altered mental status. [place] to be encephalopathy.computed tomography scan of the brain was unremarkable. EGD-no evidence of bleeding. Patient more awake after dose of baclofen cutback. changed over to xarelto.x-ray showing ileus. Patient did start having bowel movements. Repeat computed tomography scan of abdomen showed possible enteritis./Colitis.as abdomen appeared distended. Today-laying in bed. Oral intake variable. Abdominal distention. Urinary retention later in the day day. Nurse unable to put Lemus. Urology consulted. Review of systems: Was done for constitutional, cardiovascular, GI, pulmonary. relevant finding as above Active Medications Hydrocodone Bitart/Acetaminophen (Hydrocodone/Apap 5-325mg 1 Each Tab) 1 each PO Q4HR PRN PRN Reason: Pain Last Admin: 02/14/20 16:28 Dose: 1 each Documented by: Baclofen (Baclofen 10 Mg Tab) 5 mg PO TID [facility] Last Admin: 02/24/20 15:11 Dose: 5 mg Documented by: Benzocaine/Menthol (Benzocaine/Menthol Lozeng 1 Each Lozenge) 1 each MUCOUS MEM Q1HR PRN PRN Reason: Sore Throat Ferrous Sulfate (Ferrous Sulfate 325 Mg Tab) 325 mg PO BID-W/MEALS [facility] Last Admin: 02/24/20 17:20 Dose: 325 mg Documented by: Fluconazole (Fluconazole 100 Mg Tab) 100 mg PO DAILY [facility] Last Admin: 02/24/20 09:21 Dose: 100 mg Documented by: Folic Acid (Folic Acid 1 Mg Tab) 1 mg PO DAILY [facility] Last Admin: 02/24/20 09:20 Dose: 1 mg Documented by: Dextrose/Sodium Chloride (Dextrose 5%-Ns Iv Soln) 1,000 mls @ 125 mls/hr IV .Q8H [facility] Last Admin: 02/24/20 17:22 Dose: 125 mls/hr Documented by: Piperacillin Sod/Tazobactam (Sod 3.375 gm/ Sodium Chloride) 100 mls @ 25 mls/hr IVPB Q8HR [facility] Last Admin: 02/24/20 15:29 Dose: 25 mls/hr Documented by: Lactated Ringer's (Lactated Ringers) 1,000 mls @ 20 mls/hr IV .Q24H [facility] Last Admin: 02/24/20 02:21 Dose: Not Given Documented by: Lidocaine HCl (Lidocaine 1% (10mg/Ml) For Iv Start) 0.1 ml INTRADERMA PER PROTOCOL PRN PRN Reason: IV Start Last Admin: 02/07/20 08:28 Dose: 0.1 ml Documented by: Lorazepam (Lorazepam 2 Mg/Ml Inj) 1 mg IV Q2HR PRN PRN Reason: CIWA 8 or 9 Last Admin: 02/18/20 01:42 Dose: 1 mg Documented by: Lorazepam (Lorazepam 2 Mg/Ml Inj) 1 mg IV Q1HR PRN PRN Reason: CIWA 10 to 15 Last Admin: 02/18/20 15:42 Dose: 1 mg Documented by: Metoclopramide HCl (Metoclopramide 5 Mg/Ml 2 Ml Vial) 10 mg IVP Q6HR PRN PRN Reason: Nausea and Vomiting Metoprolol Succinate (Metoprolol Succinate (Er) 25 Mg Tab.Er.24h) 25 mg PO DAILY [facility] Last Admin: 02/24/20 09:21 Dose: 25 mg Documented by: Miscellaneous Information (Magnesium Replacement Protocol 1 Each Misc) 1 each MISCELLANE DAILY PRN; Protocol PRN Reason: Per Protocol Miscellaneous Information (Potassium Replacement Protocol 1 Each Misc) 1 each MISCELLANE DAILY PRN; Protocol PRN Reason: Per Protocol Multivitamins (Multivitamins, Thera 1 Each Tab) 1 each PO DAILY [facility] Last Admin: 02/24/20 09:21 Dose: 1 each Documented by: Naloxone HCl (Naloxone 0.4 Mg/Ml 1 Ml Vial) 0.2 mg IV Q2M PRN PRN Reason: Opioid Reversal Nicotine (Nicotine 21mg/24hr Patch) 1 patch TRANSDERM DAILY [facility] Last Admin: 02/24/20 09:21 Dose: 1 patch Documented by: Nicotine Polacrilex (Nicotine Polacrilex 2 Mg Gum) 2 mg BUCCAL Q4HR PRN PRN Reason: Nicotine Cravings Ondansetron HCl (Ondansetron 4 Mg/2 Ml Vial) 4 mg IVP Q8HR PRN PRN Reason: Nausea And Vomiting Pantoprazole Sodium (Pantoprazole 40 Mg/10 Ml Vial) 40 mg IVP BID [facility] Last Admin: 02/24/20 07:27 Dose: 40 mg Documented by: Rivaroxaban (Rivaroxaban 15 Mg Tab) 15 mg PO BID-W/MEALS [facility] Last Admin: 02/24/20 17:20 Dose: 15 mg Documented by: Tamsulosin HCl (Tamsulosin 0.4 Mg Cap.Er.24h) 0.4 mg PO [facility] Thiamine HCl (Thiamine 100 Mg Tab) 100 mg PO BID-W/MEALS [facility] Last Admin: 02/24/20 17:20 Dose: 100 mg Documented by: Physical examination: VITAL SIGNS: 96.9, 84, 17, 125/86, 97% room air GENERAL: Laying in bed, awake EYES: Pupils equal. Conjunctiva normal. HEENT: External appearance of nose and ears normal, oral cavity grossly normal. NECK: JVD not raised; masses not palpable. HEART: First and second heart sounds are normal; no edema. LUNGS: Respiratory rate normal; decreased breath sounds. ABDOMEN: Soft, distended, , area of subcutaneous swelling around the incision site. PSYCH: Answering questions INVESTIGATIONS, reviewed in the clinical context: White count 7.6 hemoglobin 9.4 increased neutrophils potassium 3.6 albumin 1.7 Computed tomography scan of the abdomen done today. Previous testing EEG shows evidence of encephalopathy Computed tomography scan of the brain-mild atrophy 2-D echocardiogram-EF 55-60% VQ scan-intermediate probability Chest CTA-suboptimal study. Doppler ultrasound-positive for thrombus within the distal popliteal vein White count 10.2 hemoglobin 14.2 potassium 3.6 B12 some 08 Previously AST 129 ALT 50 Computed tomography scan of the abdomen from January 08-possible colitis, diverticulitis, some esophagitis, hepatic steatosis Abdominal x-ray film personally reviewed by me shows ileus Assessment: -Status post low anterior resection, for diverticulitis complication -Postop ileus- -Chronic nicotine dependence patient cigarette smoker -Clinical emphysema, asymptomatic -Suspect alcoholic hepatitis -Ascites -Mild hyponatremia -Macrocytic anemia. -Acute DVT in the left distal popliteal vein -Acute alcohol withdrawal syndrome with improvement -Right lower lobe pneumonia -Abnormal computed tomography scan of the abdomen. Possible enteritis/colitis- ischemic bowel Plan: Continue IV Zosyn . Decreased urine output. Consult urology for Lemus catheter. Prognosis guarded. Thank you Dr. Lee
[2020-02-24] MEDS: TAMSULOSIN 0.4 MG CAP.ER.24H PO SCH (20:34)
[2020-02-24] MEDS: LIDOCAINE URO-JET JELLY 2% 5 ML KIT URETHRAL SCH (21:30)
[2020-02-24 22:23] LABS: African American GFR (CKD) >90 (>60 ml/min/1.73 sqM); Anion Gap 5 mmol/L; Blood Urea Nitrogen 11 mg/dL (9-20); Calcium 7.4 mg/dL (8.4-10.2); Carbon Dioxide 12 mmol/L (22-30); Chloride 117 mmol/L (98-107); Glucose 125 mg/dL (74-99); Non-African American GFR(CKD) >90 (>60 ml/min/1.73 sqM); Sodium 134 mmol/L (137-145)
[2020-02-24 22:26] LABS: Potassium 3.7 mmol/L (3.5-5.1)
--- NOTE | 2020-02-25 00:11 | P.GSCN ---
History of Present Illness Consult date: 02/24/20 Reason for Consult: Del Valle placement History of present illness: Mr Carter is a 64 yo male with hx of diverticulitis he is S/P LAR on 02/07/20. Patient Has had a del valle since surgery. He was noticed to have low urine output for past 24 hours. Patient urine output dropped significantly this after noon, del valle was manipulated without imporvement of urine output. del valle was subsequently remove and attempt to reinsert del valle was unsuccessful. Urology was consulted for del valle placement. Bladder scan showed 750 mL. Patient denies any voiding hx at baseline. Ct abd/pelvis from 02/18 showed no abnormality Review of Systems - Constitutional Denies fever, Denies weight loss - Cardiovascular Denies chest pain, Denies shortness of breath - Respiratory Denies cough, Denies 7 - Gastrointestinal Reports abdominal pain, Denies nausea, Denies vomiting - Genitourinary Denies dysuria, Denies flank pain - Neurological Denies headaches, Denies syncope Past Medical History Past Medical History: No Reported History Additional Past Medical History / Comment(s): varicose veins, vitiligo, Diarrhea, diverticulitis. History of Any Multi-Drug Resistant Organisms: None Reported Past Surgical History: Appendectomy, Orthopedic Surgery Additional Past Surgical History / Comment(s): knee surgery(fx), 03-23-16 total lt hip (fx) Past Anesthesia/Blood Transfusion Reactions: No Reported Reaction Additional Past Anesthesia/Blood Transfusion Reaction / Comm: unknown family hx- adopted Past Psychological History: No Psychological Hx Reported Smoking Status: Current every day smoker Past Alcohol Use History: Daily Additional Past Alcohol Use History / Comment(s): STARTED SMOKING AT AGE 22, SMOKES 1/2 PPD. DRINKS 2-3 BEERS/DAY Past Drug Use History: None Reported - Past Family History Mother Family Medical History: Unable to Obtain Additional Family Medical History / Comment(s): PT WAS ADOPTED Father Family Medical History: Unable to Obtain Additional Family Medical History / Comment(s): PT WAS ADOPTED Medications and Allergies Home Medications Medication Instructions Recorded Confirmed Type Baclofen [Lioresal] 20 mg PO BID 02/04/20 02/07/20 History Ciprofloxacin HCl [Cipro] 500 mg PO BID 02/04/20 02/07/20 History Metoprolol Succinate [Toprol XL] 25 mg PO DAILY 02/04/20 02/07/20 History metroNIDAZOLE [Flagyl] 500 mg PO TID 02/04/20 02/07/20 History Allergies Allergy/AdvReac Type Severity Reaction Status Date / Time No Known Allergies Allergy Verified 02/07/20 08:20 Surgical - Exam Vital Signs Temp Pulse Resp BP Pulse Ox 98.3 F 109 H 16 131/71 96 02/07/20 08:19 02/07/20 08:19 02/07/20 08:19 02/07/20 08:19 02/07/20 08:19 - General well developed, well nourished, no distress, no pain - Eyes PERRL, normal ocular movement - ENT normal nares, normal mucosa, no hearing loss - Respiratory normal expansion, normal respiratory effort - Abdomen Abdomen: soft, tender (RLQ), no rigid, no rebound, distended - Genitourinary testicles non-tender, other (circumcised phallus, penile edema ) - Psychiatric oriented to person, oriented to place, speech is normal Results - Labs 02/22/20 07:34 02/24/20 21:59 Abnormal Lab Results - Last 24 Hours (Table) 02/24/20 Range/Units 21:59 Sodium 134 L (137-145) mmol/L Chloride 117 H (98-107) mmol/L Carbon Dioxide 12 L (22-30) mmol/L Creatinine 0.65 L (0.66-1.25) mg/dL Glucose 125 H (74-99) mg/dL Calcium 7.4 L (8.4-10.2) mg/dL Diabetes panel 02/24/20 Range/Units 21:59 Sodium 134 L (137-145) mmol/L Potassium 3.7 (3.5-5.1) mmol/L Chloride 117 H (98-107) mmol/L Carbon Dioxide 12 L (22-30) mmol/L BUN 11 (9-20) mg/dL Creatinine 0.65 L (0.66-1.25) mg/dL Glucose 125 H (74-99) mg/dL Calcium 7.4 L (8.4-10.2) mg/dL Calcium panel 02/24/20 Range/Units 21:59 Calcium 7.4 L (8.4-10.2) mg/dL Pituitary panel 02/24/20 Range/Units 21:59 Sodium 134 L (137-145) mmol/L Potassium 3.7 (3.5-5.1) mmol/L Chloride 117 H (98-107) mmol/L Carbon Dioxide 12 L (22-30) mmol/L BUN 11 (9-20) mg/dL Creatinine 0.65 L (0.66-1.25) mg/dL Glucose 125 H (74-99) mg/dL Calcium 7.4 L (8.4-10.2) mg/dL Adrenal panel 02/24/20 Range/Units 21:59 Sodium 134 L (137-145) mmol/L Potassium 3.7 (3.5-5.1) mmol/L Chloride 117 H (98-107) mmol/L Carbon Dioxide 12 L (22-30) mmol/L BUN 11 (9-20) mg/dL Creatinine 0.65 L (0.66-1.25) mg/dL Glucose 125 H (74-99) mg/dL Calcium 7.4 L (8.4-10.2) mg/dL Assessment and Plan Assessment: 64 yo male with hx of diverticulitis S/P LAR on 02/06. Patient had low urine output this afternoon, del valle was removed, attempt to reinsert del valle was unsuccessful. Urology called for del valle placement. Bladder scan showed 750, of note CT abd/pelvis showed abdominal ascites 16 Fr coude catheter was placed with no return of urine, del valle was irrigated without difficulty, but patient continued to complain of sensation to urinate, but no urine output. Given this finding decision was made to proceed with cystoscopy to confirm del valle placement. cystoscopy was performed and showed normal bladder, no bladder lesion, prostate and urethra WNL. Of note the bladder was decompressed. A new 16 Fr del valle was placed and balloon infalted with 10cc Plan: Del Valle in is the bladder, confirmed on cystoscopy. Bladder scan is inaccurate secondary to Ascites. Del Valle should stay in place until it's no longer needed by the primary team. Continue IVF given his low UO. Also recommend obtaining a BMP. Time with Patient: Greater than 30
--- NOTE | 2020-02-25 00:15 | P.PCN ---
Date of Procedure: 02/25/20 Preoperative Diagnosis: Urinary retention Postoperative Diagnosis: same Procedure(s) Performed: cystoscopy Anesthesia: local Surgeon: Wesly Guzman Pathology: none sent Condition: stable Disposition: floor Indications for Procedure: 64 yo male with hx of diverticulitis S/P LAR on 02/06. Patient had low urine output this afternoon, del valle was removed, attempt to reinsert del valle was unsuccessful. Urology called for del valle placement. Bladder scan showed 750, of note CT abd/pelvis showed abdominal ascites 16 Fr coude catheter was placed with no return of urine, del valle was irrigated without difficulty, but patient continued to complain of sensation to urinate, but no urine output. Given this finding decision was made to proceed with cystoscopy to confirm del valle placement. Operative Findings: Normal cysto Description of Procedure: A flexibile cysto was inserted per urethra, cystoscopy showed no abnormality within the urethra, prostatic urethra and bladder. no bladder masses or urethral false passages appreciated.Of note his bladder was decompressed, flexibile cystoscope was removed and 16 Fr del valle and balloon was inflated with 10 cc. patient tolerated procedure well
[2020-02-25] MEDS: PIPERACILLIN-TAZOBACTAM 3.375 GM in SODIUM CHLORIDE 0.9% 100 ML IVPB SCH ×3 (01:47→16:07)
[2020-02-25] MEDS: LIDOCAINE URO-JET JELLY 2% 5 ML KIT URETHRAL SCH (01:50)
--- NOTE | 2020-02-25 02:45 | PN ---
PROGRESS NOTE DATE OF SERVICE: 02/24/2020 REASON FOR FOLLOWUP: Leukocytosis with concern for pneumonia and abdominal wall cellulitis. INTERVAL HISTORY: The patient is currently afebrile. The patient is breathing comfortably on room air. The patient denies having any chest pain. He did have swelling around his medial part of incision, but the redness has decreased and no drainage was noticed. PHYSICAL EXAMINATION: Blood pressure is 125/86, pulse of 84, temperature 96.9. He is 97% on room air. General description is middle-aged male lying in bed in no distress. RESPIRATORY SYSTEM: Unlabored breathing, clear to auscultation anteriorly. HEART: S1, S2. Regular rate and rhythm. ABDOMEN: Soft, mildly distended with erythema around the periumbilical area but no worsening or drainage was noticed. LABS: No new labs have been obtained today. DIAGNOSTIC IMPRESSION AND PLAN: Patient with leukocytosis which is multifactorial in this patient status post low anterior resection, now with concern for possible incisional hernia around the middle part of his incision. Clinically not behaving as an abscess in this patient currently with no fever. White count will be repeated tomorrow. Continue with Diflucan and Zosyn and continue supportive care. MMODL / IJN: [id number] /
[2020-02-25] MEDS: LACTATED RINGERS 1,000 ML IV SCH (03:59)
[2020-02-25 07:30] LABS: Basophils % (A) 0 %; Eosinophils # (A) 0.1 k/uL (0-0.7); Eosinophils % (A) 1 %; HCT 28.3 % (39.0-53.0); Hypochromasia Marked; Lymphocytes # (A) 1.6 k/uL (1.0-4.8); Lymphocytes % (A) 10 %; MCH 34.7 pg (25.0-35.0); MCHC 31.8 g/dL (31.0-37.0); MCV 109.1 fL (80.0-100.0); Macrocytosis Marked; Mean Platelet Volume 8.1; Monocytes # (A) 0.9 k/uL (0-1.0); Monocytes % (A) 6 %; Neutrophils % (A) 82 %; Platelet Count 399 k/uL (150-450); RBC 2.59 m/uL (4.30-5.90); RDW 14.3 % (11.5-15.5); WBC 15.9 k/uL (3.8-10.6)
[2020-02-25] MEDS: BACLOFEN 10 MG TAB PO SCH ×3 (09:27→20:52)
[2020-02-25] MEDS: FERROUS SULFATE 325 MG TAB PO SCH ×2 (09:27→17:43)
[2020-02-25] MEDS: MULTIVITAMINS, THERA 1 EACH TAB PO SCH (09:27)
[2020-02-25] MEDS: THIAMINE 100 MG TAB PO SCH ×2 (09:27→17:43)
[2020-02-25] MEDS: METOPROLOL SUCCINATE (ER) 25 MG TAB.ER.24H PO SCH (09:27)
[2020-02-25] MEDS: PANTOPRAZOLE 40 MG/10 ML VIAL IVP SCH ×2 (09:27→20:53)
[2020-02-25] MEDS: DEXTROSE 5%-0.9% NACL 1,000 ML IV SCH ×3 (09:28→23:08)
[2020-02-25] MEDS: NICOTINE 21MG/24HR PATCH TRANSDERM SCH (09:28)
[2020-02-25] MEDS ORDERED: SODIUM CHLORIDE 0.9% 1,000 ML IV ONE ×2 (09:33→17:44)
[2020-02-25] MEDS: FOLIC ACID 1 MG TAB PO SCH (09:36)
[2020-02-25] MEDS: FLUCONAZOLE 100 MG TAB PO SCH (09:36)
[2020-02-25] MEDS: RIVAROXABAN 15 MG TAB PO SCH ×2 (09:36→15:31)
--- NOTE | 2020-02-25 10:50 | P.PN ---
Subjective Progress Note Date: 02/25/20 CHIEF COMPLAINT: Diverticulitis HISTORY OF PRESENT ILLNESS: Patient seen and examined with Dr. Lee. Patient is status post lower anterior resection, takedown of splenic flexure and partial omentectomy. Patient is complaining of abdominal pain. His abdomen is more distended today with some erythema on the right side of incision. Likely symptoms are related to ileus and abdominal ascites with possible hernia. Patient does report eating better. Patient has had low urine output throughout the night. Fluid bolus has been ordered. He's afebrile. White count 15.9 hemoglobin 9.0 he is on a regular diet. Patient has had increase in his oral intake. Patient does report having a bowel movement. Patient seen by urology Lemus catheter inserted. PHYSICAL EXAM: VITAL SIGNS: Reviewed. GENERAL: Well-developed in no acute distress. HEENT: No sclera icterus. Extraocular movements grossly intact. Moist buccal mucosa. Head is atraumatic, normocephalic. ABDOMEN: Abdomen more distended. Ascites present. Mild erythema noted on the right side of the abdomen. Tender with palpation of the right side of the abdomen. Incision clean dry and intact. At this time no clear drainage from t he incision. NEUROLOGIC: Patient is sleepy and having confusion ASSESSMENT: 1. Diverticulitis status post lower anterior resection, takedown of splenic flexure and partial omentectomy 2. Patient's abdominal distention likely related to ileus, ascites from his liver cirrhosis and possible hernia. 3. Alcohol abuse with alcohol withdrawal 4. New left leg DVT during this admission anticoagulated with Xarelto 5. Possible ileus 6. Black stools. Resolved. No evidence of upper GI bleed on EGD. EGD was normal 7. Altered mental status likely due to alcohol withdrawal syndrome. Patient ev aluated by neurology 8. Possible right lower lobe pneumonia 9. Severe protein calorie malnutrition continue ensure PLAN: -Order abdominal ultrasound with possible paracentesis for abdominal ascites -Ordered 1 L fluid bolus for low urine output -Continue to monitor patient closely -Antibiotics per ID -Continue regular diet -Encouraged patient to increase oral intake -Encouraged patient to increase activity Physician Machine Inspector note has been reviewed by physician. Signing provider agrees with the documented findings, assessment, and plan of care. Objective - Vital Signs Vital signs: Vital Signs Temp 96.4 F L 02/25/20 07:27 Pulse 85 02/25/20 07:00 Resp 17 02/25/20 07:00 BP 100/67 02/25/20 07:00 Pulse Ox 97 02/25/20 07:00 Intake & Output 02/24/20 02/25/20 02/25/20 18:59 06:59 18:59 Intake Total 600 650 Output Total 300 100 Balance 300 550 Intake: IV 600 Dextrose 5%-0.9% NaCl 1, 600 000 ml @ 125 mls/hr IV . [facility] Rx#:[id number] Intake, IV Titration 250 Amount Dextrose 5%-0.9% NaCl 1, 250 000 ml @ 125 mls/hr IV . [facility] Rx#:[id number] Oral 400 Output: Urine 300 100 Uretheral (Lemus) 200 Other: Voiding Method Indwelling Catheter Indwelling Catheter # Bowel Movements 1 - Labs CBC & Chem 7: 02/25/20 07:15 02/24/20 21:59 Labs: Abnormal Lab Results - Last 24 Hours (Table) 02/24/20 02/25/20 Range/Units 21:59 07:15 WBC 15.9 H (3.8-10.6) k/uL RBC 2.59 L (4.30-5.90) m/uL Hgb 9.0 L (13.0-17.5) gm/dL Hct 28.3 L (39.0-53.0) % MCV 109.1 H (80.0-100.0) fL Neutrophils # 13.0 H (1.3-7.7) k/uL Macrocytosis Marked A Sodium 134 L (137-145) mmol/L Chloride 117 H (98-107) mmol/L Carbon Dioxide 12 L (22-30) mmol/L Creatinine 0.65 L (0.66-1.25) mg/dL Glucose 125 H (74-99) mg/dL Calcium 7.4 L (8.4-10.2) mg/dL
[2020-02-25 11:12] LABS: Anion Gap 7.1 mmol/L (4.00-12.00); BUN/Creat Ratio 18.33 Ratio (12.00-20.00); C Reactive Protein 6.8 mg/dL (0.0-0.8); Calcium 7.1 mg/dL (8.7-10.3); Carbon Dioxide 17.9 mmol/L (21.6-31.8); Potassium 3.1 mmol/L (3.5-5.5)
[2020-02-25] MEDS ORDERED: Potassium Replacement Protocol 1 EACH MISC MISCELLANE PRN (11:36)
[2020-02-25] MEDS: POTASSIUM CHLORIDE ER 20 MEQ TAB.ER PO SCH (12:17)
[2020-02-25 13:04] LABS: INR 1.6 (<1.2); Prothrombin Time 15.8 sec (9.0-12.0)
--- NOTE | 2020-02-25 15:43 | US ---
EXAMINATION TYPE: US abdomen limited DATE OF EXAM: 02/25/2020 COMPARISON: NONE CLINICAL HISTORY: assess for fluid pocket for paracentesis. Assess for ascites Moderate ascites visualized right flank IMPRESSION: 1. Ascites
[2020-02-25] MEDS: TAMSULOSIN 0.4 MG CAP.ER.24H PO SCH (20:53)
[2020-02-25] MEDS ORDERED: ALBUMIN HUMAN 5% 250 ML in EMPTY BAG 1 BAG IVPB ONE (23:00)
[2020-02-25 23:24] LABS: Basophils % (A) 0 %; Eosinophils # (A) 0.2 k/uL (0-0.7); Eosinophils % (A) 1 %; HCT 28.3 % (39.0-53.0); Hypochromasia Marked; Lymphocytes # (A) 1.4 k/uL (1.0-4.8); Lymphocytes % (A) 9 %; MCH 34.7 pg (25.0-35.0); MCHC 31.9 g/dL (31.0-37.0); MCV 108.8 fL (80.0-100.0); Mean Platelet Volume 8.3; Monocytes # (A) 0.8 k/uL (0-1.0); Monocytes % (A) 5 %; Neutrophils # (A) 12.9 k/uL (1.3-7.7); Neutrophils % (A) 84 %; Platelet Count 368 k/uL (150-450); RDW 14.2 % (11.5-15.5); WBC 15.5 k/uL (3.8-10.6)
[2020-02-25 23:27] LABS: Macrocytosis Marked
[2020-02-25 23:41] LABS: African American GFR (CKD) >90 (>60 ml/min/1.73 sqM); Anion Gap 3 mmol/L; Blood Urea Nitrogen 10 mg/dL (9-20); Carbon Dioxide 12 mmol/L (22-30); Chloride 118 mmol/L (98-107); Glucose 150 mg/dL (74-99); Non-African American GFR(CKD) >90 (>60 ml/min/1.73 sqM); Potassium 3.1 mmol/L (3.5-5.1); Sodium 133 mmol/L (137-145)
--- NOTE | 2020-02-25 23:45 | P.PN ---
Progress Note - Text Progress Note Date: 02/25/20 - Chief Complaint Abdominal surgery History of presenting complaint: This is a pleasant 64-year-old patient of . Patient been having complication to his diverticulitis. computed tomography scan on January 08. Showed some possible stricture. Hepatic steatosis. February 06- undergone low anterior resection. Epidural for pain control.patient had elevated d-dimer. Pulmonary embolism felt to be unlikely. CT was suboptimal. VQ scan was intermediate probability. Leg DVT treated with IV heparin. Had some dark stools.also patient had had altered mental status. [place] to be encephalopathy.computed tomography scan of the brain was unremarkable. EGD-no evidence of bleeding. Patient more awake after dose of baclofen cutback. changed over to xarelto.x-ray showing ileus. Patient did start having bowel movements. Repeat computed tomography scan of abdomen showed possible enteritis./Colitis.as abdomen appeared distended. Today-patient was seen by Dr. oleary from urology. He did fit place a Lemus catheter. Not much urinary retention. Abdomen distended. Did eat some. Blood pressure running of the lower side. Anticoagulation held for paracentesis as ordered by Dr. Lee. Review of systems: Was done for constitutional, cardiovascular, GI, pulmonary. relevant finding as above Active Medications Hydrocodone Bitart/Acetaminophen (Hydrocodone/Apap 5-325mg 1 Each Tab) 1 each PO Q4HR PRN PRN Reason: Pain Last Admin: 02/14/20 16:28 Dose: 1 each Documented by: Baclofen (Baclofen 10 Mg Tab) 5 mg PO TID [facility] Last Admin: 02/25/20 20:52 Dose: 5 mg Documented by: Benzocaine/Menthol (Benzocaine/Menthol Lozeng 1 Each Lozenge) 1 each MUCOUS MEM Q1HR PRN PRN Reason: Sore Throat Ferrous Sulfate (Ferrous Sulfate 325 Mg Tab) 325 mg PO BID-W/MEALS [facility] Last Admin: 02/25/20 17:43 Dose: 325 mg Documented by: Fluconazole (Fluconazole 100 Mg Tab) 100 mg PO DAILY [facility] Last Admin: 02/25/20 09:36 Dose: 100 mg Documented by: Folic Acid (Folic Acid 1 Mg Tab) 1 mg PO DAILY [facility] Last Admin: 02/25/20 09:36 Dose: 1 mg Documented by: Dextrose/Sodium Chloride (Dextrose 5%-Ns Iv Soln) 1,000 mls @ 125 mls/hr IV .Q8H [facility] Last Admin: 02/25/20 23:08 Dose: 125 mls/hr Documented by: Piperacillin Sod/Tazobactam (Sod 3.375 gm/ Sodium Chloride) 100 mls @ 25 mls/hr IVPB Q8HR [facility] Last Admin: 02/25/20 16:07 Dose: 25 mls/hr Documented by: Lactated Ringer's (Lactated Ringers) 1,000 mls @ 20 mls/hr IV .Q24H [facility] Last Admin: 02/25/20 03:59 Dose: Not Given Documented by: Albumin Human 250 ml/ IV (Solution) 250 mls @ 250 mls/hr IVPB ONCE ONE Stop: 02/25/20 23:59 Last Admin: 02/25/20 23:05 Dose: 250 mls/hr Documented by: Lidocaine HCl (Lidocaine 1% (10mg/Ml) For Iv Start) 0.1 ml INTRADERMA PER PROTOCOL PRN PRN Reason: IV Start Last Admin: 02/07/20 08:28 Dose: 0.1 ml Documented by: Lorazepam (Lorazepam 2 Mg/Ml Inj) 1 mg IV Q2HR PRN PRN Reason: CIWA 8 or 9 Last Admin: 02/18/20 01:42 Dose: 1 mg Documented by: Lorazepam (Lorazepam 2 Mg/Ml Inj) 1 mg IV Q1HR PRN PRN Reason: CIWA 10 to 15 Last Admin: 02/18/20 15:42 Dose: 1 mg Documented by: Metoclopramide HCl (Metoclopramide 5 Mg/Ml 2 Ml Vial) 10 mg IVP Q6HR PRN PRN Reason: Nausea and Vomiting Metoprolol Succinate (Metoprolol Succinate (Er) 25 Mg Tab.Er.24h) 25 mg PO DAILY [facility] Last Admin: 02/25/20 09:27 Dose: 25 mg Documented by: Miscellaneous Information (Magnesium Replacement Protocol 1 Each Misc) 1 each MISCELLANE DAILY PRN; Protocol PRN Reason: Per Protocol Miscellaneous Information (Potassium Replacement Protocol 1 Each Misc) 1 each MISCELLANE DAILY PRN; Protocol PRN Reason: Per Protocol Miscellaneous Information (Potassium Replacement Protocol 1 Each Misc) 1 each MISCELLANE DAILY PRN; Protocol PRN Reason: Per Protocol Multivitamins (Multivitamins, Thera 1 Each Tab) 1 each PO DAILY [facility] Last Admin: 02/25/20 09:27 Dose: 1 each Documented by: Naloxone HCl (Naloxone 0.4 Mg/Ml 1 Ml Vial) 0.2 mg IV Q2M PRN PRN Reason: Opioid Reversal Nicotine (Nicotine 21mg/24hr Patch) 1 patch TRANSDERM DAILY [facility] Last Admin: 02/25/20 09:28 Dose: 1 patch Documented by: Nicotine Polacrilex (Nicotine Polacrilex 2 Mg Gum) 2 mg BUCCAL Q4HR PRN PRN Reason: Nicotine Cravings Ondansetron HCl (Ondansetron 4 Mg/2 Ml Vial) 4 mg IVP Q8HR PRN PRN Reason: Nausea And Vomiting Pantoprazole Sodium (Pantoprazole 40 Mg/10 Ml Vial) 40 mg IVP BID [facility] Last Admin: 02/25/20 20:53 Dose: 40 mg Documented by: Rivaroxaban (Rivaroxaban 15 Mg Tab) 15 mg PO BID-W/MEALS [facility] Last Admin: 02/25/20 15:31 Dose: Not Given Documented by: Tamsulosin HCl (Tamsulosin 0.4 Mg Cap.Er.24h) 0.4 mg PO HS [facility] Last Admin: 02/25/20 20:53 Dose: 0.4 mg Documented by: Thiamine HCl (Thiamine 100 Mg Tab) 100 mg PO BID-W/MEALS [facility] Last Admin: 02/25/20 17:43 Dose: 100 mg Documented by: Physical examination: VITAL SIGNS: 96.4, 74, 17, 100/71, 91% room air GENERAL: propped up in bed, awake EYES: Pupils equal. Conjunctiva normal. HEENT: External appearance of nose and ears normal, oral cavity grossly normal. NECK: JVD not raised; masses not palpable. HEART: First and second heart sounds are normal; no edema. LUNGS: Respiratory rate normal; decreased breath sounds. ABDOMEN: Soft, distended, , area of subcutaneous swelling around the incision site. PSYCH: Answering questions INVESTIGATIONS, reviewed in the clinical context: white count 15.5 hemoglobin 9 potassium 3.1 creatinine 0.56 Computed tomography scan of the abdomen done today. Previous testing EEG shows evidence of encephalopathy Computed tomography scan of the brain-mild atrophy 2-D echocardiogram-EF 55-60% VQ scan-intermediate probability Chest CTA-suboptimal study. 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 -Acute DVT in the left distal popliteal vein -Acute alcohol withdrawal syndrome with improvement -Right lower lobe pneumonia -Abnormal computed tomography scan of the abdomen. Possible enteritis/colitis- ischemic bowel -Mild protein calorie malnutrition from decreased oral intake Plan: Continue IV Zosyn . xarelto's been held to get thoracentesis is done. Lemus catheter placed by Dr. oleary. Later today A team was called out.patient ordered albumin and 250 mL fluid bolus. Thank you Dr. Lee2
[2020-02-26] MEDS: DAPTOmycin 350 MG in SODIUM CHLORIDE 0.9% 50 ML IVPB SCH (00:44)
--- NOTE | 2020-02-26 00:53 | PN ---
PROGRESS NOTE DATE OF SERVICE: 02/25/2020 REASON FOR FOLLOWUP: Leukocytosis. INTERVAL HISTORY: The patient is currently afebrile. The patient is breathing comfortably. Denies having any chest pain, cough. No abdominal pain or diarrhea. PHYSICAL EXAMINATION: Blood pressure 101/70 with a pulse of 67, temperature 96.4. General description is a middle-aged male lying in bed in no distress. RESPIRATORY SYSTEM: Unlabored breathing, decreased breath sounds in the bases, no wheeze. HEART: S1, S2. Regular rate and rhythm. ABDOMEN: Soft. Remains to be distended with swelling and some redness on the right lateral side, no drainage. LABS: Hemoglobin 9, white count 15.9, BUN of 11, creatinine 0.60. DIAGNOSTIC IMPRESSION AND PLAN: Patient with leukocytosis which is multifactorial in this patient who did have evidence of abdominal ascites and possible incisional hernia versus cellulitis. Patient is covered with Zosyn and Diflucan to continue. White count showing a downward trend. MMODL / IJN: [id number] /
[2020-02-26] MEDS ORDERED: Potassium Replacement Protocol 1 EACH MISC MISCELLANE PRN (01:04)
[2020-02-26] MEDS: PIPERACILLIN-TAZOBACTAM 3.375 GM in SODIUM CHLORIDE 0.9% 100 ML IVPB SCH ×3 (01:15→17:41)
[2020-02-26] MEDS: LACTATED RINGERS 1,000 ML IV SCH (01:16)
[2020-02-26] MEDS: POTASSIUM CHLORIDE ER 20 MEQ TAB.ER PO SCH ×2 (01:21→04:10)
[2020-02-26] MEDS ORDERED: ATROPINE SULFATE 0.1 MG/ML 10ML SYRINGE ONE ×2 (02:43→21:37)
[2020-02-26] MEDS ORDERED: ETOMIDATE 2 MG/ML 10 ML VIAL ONE (02:43)
[2020-02-26] MEDS ORDERED: propofoL 100 ML IV ONE (03:16)
[2020-02-26 03:17] LABS: Glucose,Whole Blood 147 mg/dL (75-99)
[2020-02-26 03:45] LABS: ABG Base Excess -15.6 mmol/L; ABG HCO3 13 mmol/L (21-25); ABG PCO2 36 mmHg (35-45); ABG PO2 264 mmHg (83-108); ABG TCO2 14 mmol/L (19-24); Allen Test Performed? Yes
[2020-02-26 03:48] LABS: ABG PH 7.17 (7.35-7.45)
--- NOTE | 2020-02-26 03:49 | XR ---
EXAM: XR Chest, 1 View CLINICAL HISTORY: ITS.REASON XR Reason: intubation TECHNIQUE: Frontal view of the chest. COMPARISON: 02/18/2020 IMPRESSION: ET tube terminates 3.3 cm from the eber. Right-sided rib deformities are again seen. Unchanged mildly elevated right hemidiaphragm.
[2020-02-26 03:56] LABS: Basophils % (A) 0 %; Eosinophils # (A) 0.2 k/uL (0-0.7); Eosinophils % (A) 1 %; HCT 30.2 % (39.0-53.0); HGB 8.9 gm/dL (13.0-17.5); Hypochromasia Marked; Lymphocytes # (A) 1.8 k/uL (1.0-4.8); Lymphocytes % (A) 8 %; MCH 32.8 pg (25.0-35.0); MCHC 29.5 g/dL (31.0-37.0); Macrocytosis Marked; Mean Platelet Volume 8.6; Monocytes # (A) 0.8 k/uL (0-1.0); Monocytes % (A) 4 %; Neutrophils # (A) 18.7 k/uL (1.3-7.7); Neutrophils % (A) 86 %; Platelet Count 387 k/uL (150-450); RBC 2.72 m/uL (4.30-5.90); RDW 14.5 % (11.5-15.5); WBC 21.8 k/uL (3.8-10.6)
[2020-02-26] MEDS ORDERED: SODIUM BICARB 8.4% 50 ML SYR (1 MEQ/ML) IV STA ×2 (03:58→08:39)
[2020-02-26] MEDS ORDERED: SODIUM CHLORIDE 0.9% 1,000 ML IV ONE (04:01)
[2020-02-26 04:11] LABS: African American GFR (CKD) >90 (>60 ml/min/1.73 sqM); Albumin 1.8 g/dL (3.5-5.0); Albumin/Globulin Ratio 0.5; Anion Gap 8 mmol/L; Calcium 7.1 mg/dL (8.4-10.2); Carbon Dioxide 10 mmol/L (22-30); Chloride 119 mmol/L (98-107); Globulin 3.4 g/dL; Glucose 105 mg/dL (74-99); Non-African American GFR(CKD) >90 (>60 ml/min/1.73 sqM); Sodium 137 mmol/L (137-145); Total Bilirubin 0.6 mg/dL (0.2-1.3); Total Protein 5.2 g/dL (6.3-8.2)
--- NOTE | 2020-02-26 04:12 | P.PN ---
Progress Note - Text Progress Note Date: 02/26/20 Code natan team note Code blue activated @ 0243 on 02/25. Arrived on the scene shortly after. Di scussed case with RN who noted that the patient had been hypothermic and hypotensive. As they were trying to get a rectal temperature, the patient became unresponsive and they lost the pulse. CPR was immediately started though the patient was responsive and the CPR was thereby halted after just a few seconds. The patient was intubated and placed on mechanical ventilation The patient was also started on Levophed infusion. He was transferred to the MICU following intubation. Primary team, camera repair technician, and family were all notified.
[2020-02-26 04:13] LABS: AST 75 U/L (17-59); Blood Urea Nitrogen 10 mg/dL (9-20); Magnesium 1.4 mg/dL (1.6-2.3); Potassium 4.1 mmol/L (3.5-5.1)
[2020-02-26 04:14] LABS: ALT 24 U/L (4-49); Alkaline Phosphatase 113 U/L (38-126)
[2020-02-26] MEDS: NOREPINEPHRINE 4 MG in SODIUM CHLORIDE 0.9% 250 ML IV SCH ×2 (04:18→06:22)
[2020-02-26 04:32] LABS: Polychromasia Present
[2020-02-26] MEDS ORDERED: POTASSIUM BICARBONATE/CIT AC 20 MEQ TABLET.EFF NG-TUBE SCH (05:00)
[2020-02-26] MEDS: MAGNESIUM SULFATE-D5W PMX 1 GM in DEXTROSE/WATER 1 100ML.BAG IVPB SCH ×3 (06:00→09:33)
[2020-02-26 06:30] LABS: ABG Base Excess -10.1 mmol/L; ABG HCO3 16 mmol/L (21-25); ABG Oxygen Saturation 98.1 % (94-97); ABG PCO2 29 mmHg (35-45); ABG PH 7.34 (7.35-7.45); ABG PO2 88 mmHg (83-108); ABG TCO2 17 mmol/L (19-24); Allen Test Performed? Yes
[2020-02-26] MEDS ORDERED: NOREPINEPHRINE 8 MG in SODIUM CHLORIDE 0.9% 250 ML IV SCH (08:15)
[2020-02-26] MEDS: THIAMINE 100 MG TAB PO SCH (09:34)
[2020-02-26] MEDS: FERROUS SULFATE 325 MG TAB PO SCH (09:34)
[2020-02-26] MEDS: RIVAROXABAN 15 MG TAB PO SCH (09:34)
[2020-02-26] MEDS: BACLOFEN 10 MG TAB PO SCH (09:35)
[2020-02-26] MEDS: FLUCONAZOLE 100 MG TAB PO SCH (09:35)
[2020-02-26] MEDS: METOPROLOL SUCCINATE (ER) 25 MG TAB.ER.24H PO SCH (09:35)
[2020-02-26] MEDS: FOLIC ACID 1 MG TAB PO SCH (09:36)
[2020-02-26] MEDS: NICOTINE 21MG/24HR PATCH TRANSDERM SCH (09:36)
[2020-02-26] MEDS: MULTIVITAMINS, THERA 1 EACH TAB PO SCH (09:36)
[2020-02-26] MEDS: CHLORHEXIDINE GLUCONATE 15 ML CUP MUCOUS MEM SCH ×2 (09:39→21:08)
[2020-02-26] MEDS: PANTOPRAZOLE 40 MG/10 ML VIAL IVP SCH ×2 (09:39→21:08)
[2020-02-26] MEDS: DEXTROSE 5%-0.9% NACL 1,000 ML IV SCH (10:00)
--- NOTE | 2020-02-26 10:06 | XR ---
EXAMINATION TYPE: XR chest 1V portable DATE OF EXAM: 02/26/2020 CLINICAL HISTORY: Tube placement. TECHNIQUE: Portable semiupright view of the chest. COMPARISON: 02/26/2020 3:23 AM chest radiograph FINDINGS: Endotracheal tube distal tip 3.0 cm from the eber. Enteric tube without definitive visua lization of the distal tip. The cardiomediastinal silhouette is within normal limits for size. Increa sed bibasilar opacities and new small pleural effusions bilaterally. No pneumothorax seen. Old right- sided rib fracture deformities. IMPRESSION: 1. Increased bibasilar opacities and new small bilateral pleural effusions versus comparison at 3:23 AM. 2. Interval placement of enteric tube without definitive visualization of the distal tip.
[2020-02-26] MEDS: SODIUM CHLORIDE 0.9% 150 ML with VASOPRESSIN 60 UNIT IV SCH ×2 (10:43)
[2020-02-26] MEDS: SODIUM CHLORIDE 0.9% 1,000 ML IV SCH (10:43)
--- NOTE | 2020-02-26 11:30 | P.PN ---
Subjective Progress Note Date: 02/26/20 CHIEF COMPLAINT: Diverticulitis HISTORY OF PRESENT ILLNESS: Patient is status post lower anterior resection, takedown of splenic flexure and partial omentectomy on 02/07/2020. Early this morning patient was transferred to the ICU after STEVE KUMAR was called. Patient had become hypothermic and hypotensive. Patient become unresponsive they lost pulse and CPR was initiated. Patient did require to be intubated. Patient is currently intubated and sedated. He is on Levophed. And does have a warming blanket. His abdomen is distended. He is scheduled for paracentesis today. Patient is afebrile. WBC has increased to 21.8 hemoglobin is 9.0 magnesium 1.4. Antibiotics adjusted by infectious disease to daptomycin and Zosyn. PHYSICAL EXAM: VITAL SIGNS: Reviewed. GENERAL: Well-developed in no acute distress. HEENT: No sclera icterus. Extraocular movements grossly intact. Moist buccal mucosa. Head is atraumatic, normocephalic. ABDOMEN: Abdomen more distended. Ascites present. Area of induration along the right side of the incision. Incision clean dry and intact. No incisional drain age NEUROLOGIC: Patient is intubated and sedated ASSESSMENT: 1. Cardiopulmonary arrest 2. Diverticulitis status post lower anterior resection, takedown of splenic flexure and partial omentectomy on 02/07/2020 3. Patient's abdominal distention likely related to ileus, ascites from his liver cirrhosis and possible hernia. 4. Alcohol abuse with alcohol withdrawal 5. New left leg DVT during this admission anticoagulated with Xarelto 6. Possible ileus 7. Black stools. Resolved. No evidence of upper GI bleed on EGD. EGD was normal 8. Altered mental status likely due to alcohol withdrawal syndrome. Patient evaluated by neurology 9. Possible right lower lobe pneumonia 10. Severe protein calorie malnutrition continue ensure PLAN: -Continue ICU care and vent management per critical care service -Continue supportive care -Patient scheduled for paracentesis for abdominal ascites today -Agree with computed tomography scan of the abdomen and pelvis post paracentesis Physician Swabber note has been reviewed by physician. Signing provider agrees with the documented findings, assessment, and plan of care. Objective - Vital Signs Vital signs: Vital Signs Temp 91.9 F L 02/26/20 04:00 Pulse 81 02/26/20 07:00 Resp 21 02/26/20 07:00 BP 74/59 02/26/20 07:00 Pulse Ox 97 02/26/20 07:00 Intake & Output 02/25/20 02/26/20 02/26/20 18:59 06:59 18:59 Intake Total 268.74 332.632 Output Total 100 120 Balance -100 148.74 332.632 Weight 58 kg Intake: IV 150 175 0.9 NS 150 75 Magnesium Sulfate-D5w Pmx 100 1 gm In Dextrose/Water 1 100ml.bag @ 100 mls/hr IVPB Q1H [facility] Rx#: [id number] Intake, IV Titration 118.74 157.632 Amount Norepinephrine 4 mg In 118.74 157.632 Sodium Chloride 0.9% 250 ml @ 0.05 MCG/KG/MIN 11. 049 mls/hr IV .Q23H [facility] Rx#:[id number] Output: Urine 100 120 Other: Voiding Method Indwelling Catheter Indwelling Catheter - Labs CBC & Chem 7: 02/26/20 03:37 02/26/20 03:37 Labs: Abnormal Lab Results - Last 24 Hours (Table) 02/25/20 02/25/20 02/25/20 Range/Units 07:15 07:15 23:06 WBC 15.5 H (3.8-10.6) k/uL RBC 2.60 L (4.30-5.90) m/uL Hgb 9.0 L (13.0-17.5) gm/dL Hct 28.3 L (39.0-53.0) % MCV 108.8 H (80.0-100.0) fL MCHC (31.0-37.0) g/dL Neutrophils # 12.9 H (1.3-7.7) k/uL Macrocytosis Marked A PT 15.8 H (9.0-12.0) sec INR 1.6 H (<1.2) ABG pH (7.35-7.45) ABG pCO2 (35-45) mmHg ABG pO2 (83-108) mmHg ABG HCO3 (21-25) mmol/L ABG Total CO2 (19-24) mmol/L ABG O2 Saturation (94-97) % Sodium (137-145) mmol/L Potassium 3.1 L (3.5-5.5) mmol/L Chloride 112 H (96-109) mmol/L Carbon Dioxide 17.9 L (21.6-31.8) mmol/L Creatinine (0.66-1.25) mg/dL Glucose 136 H (70-110) mg/dL POC Glucose (mg/dL) (75-99) mg/dL Calcium 7.1 L (8.7-10.3) mg/dL Magnesium (1.6-2.3) mg/dL AST (17-59) U/L C-Reactive Protein 6.8 H (0.0-0.8) mg/dL Total Protein (6.3-8.2) g/dL Albumin (3.5-5.0) g/dL 02/25/20 02/25/20 02/26/20 Range/Units 23:06 23:06 03:16 WBC (3.8-10.6) k/uL RBC (4.30-5.90) m/uL Hgb (13.0-17.5) gm/dL Hct (39.0-53.0) % MCV (80.0-100.0) fL MCHC (31.0-37.0) g/dL Neutrophils # (1.3-7.7) k/uL Macrocytosis PT (9.0-12.0) sec INR (<1.2) ABG pH (7.35-7.45) ABG pCO2 (35-45) mmHg ABG pO2 (83-108) mmHg ABG HCO3 (21-25) mmol/L ABG Total CO2 (19-24) mmol/L ABG O2 Saturation (94-97) % Sodium 133 L (137-145) mmol/L Potassium 3.1 L (3.5-5.5) mmol/L Chloride 118 H (96-109) mmol/L Carbon Dioxide 12 L (21.6-31.8) mmol/L Creatinine 0.56 L (0.66-1.25) mg/dL Glucose 150 H (70-110) mg/dL POC Glucose (mg/dL) 147 H (75-99) mg/dL Calcium 7.0 L (8.7-10.3) mg/dL Magnesium (1.6-2.3) mg/dL AST (17-59) U/L C-Reactive Protein 59.2 H (0.0-0.8) mg/dL Total Protein (6.3-8.2) g/dL Albumin (3.5-5.0) g/dL 02/26/20 02/26/20 02/26/20 Range/Units 03:37 03:37 03:43 WBC 21.8 H (3.8-10.6) k/uL RBC 2.72 L (4.30-5.90) m/uL Hgb 8.9 L (13.0-17.5) gm/dL Hct 30.2 L (39.0-53.0) % MCV 111.0 H (80.0-100.0) fL MCHC 29.5 L (31.0-37.0) g/dL Neutrophils # 18.7 H (1.3-7.7) k/uL Macrocytosis Marked A PT (9.0-12.0) sec INR (<1.2) ABG pH 7.17 L* (7.35-7.45) ABG pCO2 (35-45) mmHg ABG pO2 264 H (83-108) mmHg ABG HCO3 13 L (21-25) mmol/L ABG Total CO2 14 L (19-24) mmol/L ABG O2 Saturation 100.0 H (94-97) % Sodium (137-145) mmol/L Potassium (3.5-5.5) mmol/L Chloride 119 H (96-109) mmol/L Carbon Dioxide 10 L (21.6-31.8) mmol/L Creatinine 0.64 L (0.66-1.25) mg/dL Glucose 105 H (70-110) mg/dL POC Glucose (mg/dL) (75-99) mg/dL Calcium 7.1 L (8.7-10.3) mg/dL Magnesium 1.4 L (1.6-2.3) mg/dL AST 75 H (17-59) U/L C-Reactive Protein (0.0-0.8) mg/dL Total Protein 5.2 L (6.3-8.2) g/dL Albumin 1.8 L (3.5-5.0) g/dL 02/26/20 Range/Units 06:28 WBC (3.8-10.6) k/uL RBC (4.30-5.90) m/uL Hgb (13.0-17.5) gm/dL Hct (39.0-53.0) % MCV (80.0-100.0) fL MCHC (31.0-37.0) g/dL Neutrophils # (1.3-7.7) k/uL Macrocytosis PT (9.0-12.0) sec INR (<1.2) ABG pH 7.34 L (7.35-7.45) ABG pCO2 29 L (35-45) mmHg ABG pO2 (83-108) mmHg ABG HCO3 16 L (21-25) mmol/L ABG Total CO2 17 L (19-24) mmol/L ABG O2 Saturation 98.1 H (94-97) % Sodium (137-145) mmol/L Potassium (3.5-5.5) mmol/L Chloride (96-109) mmol/L Carbon Dioxide (21.6-31.8) mmol/L Creatinine (0.66-1.25) mg/dL Glucose (70-110) mg/dL POC Glucose (mg/dL) (75-99) mg/dL Calcium (8.7-10.3) mg/dL Magnesium (1.6-2.3) mg/dL AST (17-59) U/L C-Reactive Protein (0.0-0.8) mg/dL Total Protein (6.3-8.2) g/dL Albumin (3.5-5.0) g/dL Microbiology - Last 24 Hours (Table) 02/26/20 03:10 Sputum Culture - Preliminary Sputum
[2020-02-26 12:07] LABS: Glucose,Whole Blood 129 mg/dL (75-99)
--- NOTE | 2020-02-26 12:14 | PCN ---
PROCEDURE NOTE PLACEMENT OF THE RIGHT FEMORAL TRIPLE-LUMEN CATHETER: PREOPERATIVE DIAGNOSIS: Acute hypoxic respiratory failure. POSTOPERATIVE DIAGNOSIS: Acute hypoxic respiratory failure. ANESTHESIA USED: 2 mL of 1% lidocaine. PROCEDURE: The right groin was prepared in a sterile fashion and drapes were applied. The patient was placed in a supine position. Next, the right femoral area was locally anesthetized with lidocaine. Then, the right femoral vein was easily cannulated, a guidewire was placed, the area around the guidewire was dilated, then a triple-lumen catheter was inserted over the guidewire and the guidewire was removed. Good blood flow noted in the 3 different ports of the triple-lumen catheter. The line was secured using 3.0 silk sutures, no evidence of any immediate complications. MMODL / IJN: [id number] /
--- NOTE | 2020-02-26 12:15 | PCN ---
PROCEDURE NOTE PLACEMENT OF A RIGHT RADIAL ARTERIAL LINE: PREOPERATIVE DIAGNOSIS: Acute hypoxic respiratory failure and sepsis. POSTOPERATIVE DIAGNOSIS: Acute hypoxic respiratory failure and sepsis. ANESTHESIA USED: None deployed. PROCEDURE: The patient was placed in a supine position. The right wrist was prepared in a sterile fashion. Drapes were applied. The right radial artery was palpated, cannulated easily, and a guidewire was placed. A Cook catheter was inserted over the guidewire, and the guidewire was removed. Good blood flow, good waveform noted, no evidence of any immediate complications. The line was secured using 3.0 silk sutures. MMODL / IJN: [id number] /
--- NOTE | 2020-02-26 12:50 | P.PN ---
Subjective Progress Note Date: 02/26/20 Principal diagnosis: Intermediate probability VQ scan, rule out possibility of pulmonary embolism This is a 64-year-old white male patient status post low anterior resection for strictures and diverticular disease, and this is postoperative day #6. Following his surgery on February 08 patient had a thrombus discomfort within the distal popliteal vein in his left leg, on the liver night patient had a CT angiogram of the chest which was a suboptimal study and did not reveal any large saddle all of central pulmonary emboli. The computed tomography scan showed evidence of small bilateral pleural effusions and multifocal groundglass opacities that could relate to pulmonary edema and/or pneumonia. His chest x- ray from February 11 showed bilateral infiltrates that could be consistent with pneumonia or heart failure. VQ scan showed indeterminate probability for pulmonary embolism. Patient has been confused, apparently he does have history of chronic EtOH, but it has been 60 since his admission, he remains very confused, he is on 3 L of oxygen and the pulse ox of 95%, he was started on heparin infusion for DVT in his left leg. We did not think there was a pulmonar y embolism based on his workup. His brain CT showed no acute intracranial abnormality. In addition there is a possibility of GI bleeding as the patient has been passing some dark stools. Is not appear to be in any respiratory distress, he remains lethargic, confused. Neurology is following, EEGs in progress. Dr. Araujo is planning on EGD tomorrow for evaluation of black stools. On 02/14/2020 patient seen in follow-up on general medical surgical floor his heparin drip is off, his 0.9 normal saline running at 75 ML per hour, appears to be more awake on today's exam, although still confused, she is only oriented to percent, no agitation. No signs of respiratory difficulty, he is on 3 L of oxygen pulse ox is 95%, hemodynamically stable, his abdomen is slightly tender postsurgery, his incision covered with dressing, his been afebrile, breathing is nonlabored, lung sounds reveal a few basilar crackles, no rhonchi or wheezing. Surgery is planned and on EGD today, neurology is following, EEG revealed background slowing of moderate degree suggestive of generalized cerebral dysfunction related to toxic metabolic encephalopathy. Today's hemoglobin is 8.6, had one bowel movement this morning. On 02/15/2020 patient seen in follow-up on general medical surgical floor, patient had EGD done yesterday which did not reveal any active bleeding, patient was restarted on heparin infusion for evidence of DVT in his lower extremity, no worsening dyspnea, patient is still on and off lethargic, but appears to be in no acute distress. He is on 3 L of oxygen pulse ox of 95%, his been afebrile, completed chest pain. No hemoptysis. Today's hemoglobin is 9.0. On 02/25/2020 we were reconsulted in view of significant clinical deterioration last night, rapid response team was called, alva gama was activated at 0243 in the morning on 02/26/2020. Apparently patient was having ongoing abdominal pain for the past few days prior to the event, he was believed to have ileus. His abdominal CT of abdomen and pelvis was done on 02/19/2020 showing postoperative changes in the sigmoid colon, proximal to this level there was abnormal thickening of the right colon, some thickened small bowel loops were also present, no is no evidence of free air, there was evidence of increased amount of ascites. There was interval development of bilateral pleural effusions and associated atelectasis. Past few days patient also developed a low urine output urology also consulted on the case for difficult Lemus insertion and possible urinary retention. Yesterday on 02/25/2020 ultrasound abdomen showed moderate ascites in the right flank. His abdomen continued to be more distended and painful, patient was eating some oral intake, however his blood pressures were running on the lower side, his urine output continued to be low, there was paracentesis planned a possibility of ascites. Last night patient developed hypothermia, and hypotension. Patient became unresponsive, and there was no pal pable pulse. CPR was started and immediately patient became responsive, CPR was stopped, patient was emergently intubated placed on mechanical ventilator and transferred to the intensive care unit. ID service has been following, patient's antibiotic coverage includes daptomycin. This morning he seen in the intensive care unit, sedated, intubated, on assist-control mode of ventilation, with a rate of 16, tidal planning is 500, FiO2 of 50%, and PEEP of 5. This was blood gases showed pO2 of 88, pCO2 of 29, and pH is 7.34. Patient is hypotensive, he is requiring levo fed at 0.43 mics per kilo per minute over 25 mics per minute, Diprivan and is at 40 mics per kilo per minute, patient has rec eived fluid resuscitation, yesterday she had received 2 L of fluid from the surgical team earlier in the day, and he received additional 2 L bolus after his cardiac pulmonary arrest early this morning, his maintenance IV fluids are currently infusing at a rate of 75 ML per hour. Patient kidney to be hypotensive, we gave him an additional liter fluid bolus today, and she will be started on a vasopressin infusion for refractory hypotension. Blood cultures have been sent, pending at this time. Prior blood cultures and sputum culture. Patient's abdomen remains very tense, distended, firm, with the area of redness and discoloration, and induration near the mid abdominal surgical incision. Avinash srinivasan has a lot of generalized swelling, he is weeping from the catheter insertion sites. He had right femoral central line catheter placed by Dr. Jarrell at the bedside and a right radial art line placed for close hemodynamic monitoring. This morning's lab work has been reviewed showing squamous cell count of 21.8, hemoglobin of 8.9, sodium of 137, potassium is 4.1, chloride is 119, CO2 is 10, BUN is 10 and creatinine 0.64, patient was given 2 A of sodium bicarbonate. Objective - Vital Signs Vital signs: Vital Signs Temp 91.9 F L 02/26/20 04:00 Pulse 77 02/26/20 11:00 Resp 19 02/26/20 11:00 BP 78/60 02/26/20 09:15 Pulse Ox 96 02/26/20 11:00 Intake & Output 02/25/20 02/26/20 02/26/20 18:59 06:59 18:59 Intake Total 268.74 1008.698 Output Total 100 120 30 Balance -100 148.74 978.698 Weight 58 kg Intake: IV 150 787 0.9 NS 150 375 Magnesium Sulfate-D5w Pmx 300 1 gm In Dextrose/Water 1 100ml.bag @ 100 mls/hr IVPB Q1H [facility] Rx#: [id number] Piperacillin-Tazobactam 3 100 .375 gm In Sodium Chloride 0.9% 100 ml @ 25 mls/hr IVPB Q8HR [facility] Rx# :[id number] Pressure bag 12 Intake, IV Titration 118.74 221.698 Amount Norepinephrine 4 mg In 118.74 157.632 Sodium Chloride 0.9% 250 ml @ 0.05 MCG/KG/MIN 11. 049 mls/hr IV .Q23H [facility] Rx#:[id number] Norepinephrine 8 mg In 64.066 Sodium Chloride 0.9% 250 ml @ 0.05 MCG/KG/MIN 5. 612 mls/hr IV .Q24H [facility] Rx#:[id number] Output: Urine 100 120 30 Other: Voiding Method Indwelling Catheter Indwelling Catheter Indwelling Catheter ABP, PAP, CO, CI - Last Documented Arterial Blood Pressure 92/52 - Exam GENERAL EXAM: Intubated sedated 64-year-old white male, on assist-control mode of ventilation, the bare hugger warming blanket for hypothermia and septic shock HEAD: Normocephalic/atraumatic. EYES: Normal reaction of pupils, equal size. Conjunctiva pink, sclera white. NOSE: Clear with pink turbinates. THROAT: No erythema or exudates. NECK: No masses, no JVD, no thyroid enlargement, no adenopathy. CHEST: No chest wall deformity. Symmetrical expansion. LUNGS: Equal air entry with no crackles, wheeze, rhonchi or dullness. CVS: Regular rate and rhythm, normal S1 and S2, no gallops, no murmurs, no rubs ABDOMEN: Distended, with postsurgical tenderness, and indurated discoloration and redness near the surgical incision on the right abdomen, mid abdominal incision with yvonne intact, however the skin is quite shiny, abdomen is distended. EXTREMITIES: No clubbing, 1+ lower extremity edema, patient has a weeping edema with the drainage from the catheter insertion sites no cyanosis, 2+ pulses and upper and lower extremities. MUSCULOSKELETAL: Muscle strength and tone normal. SPINE: No scoliosis or deformity SKIN: No rashes CENTRAL NERVOUS SYSTEM: Unable to assess, patient is sedated and intubated. No focal deficits, tone is normal in all 4 extremities. - Labs CBC & Chem 7: 02/26/20 03:37 02/26/20 03:37 Labs: Abnormal Lab Results - Last 24 Hours (Table) 02/25/20 02/25/20 02/25/20 Range/Units 07:15 23:06 23:06 WBC 15.5 H (3.8-10.6) k/uL RBC 2.60 L (4.30-5.90) m/uL Hgb 9.0 L (13.0-17.5) gm/dL Hct 28.3 L (39.0-53.0) % MCV 108.8 H (80.0-100.0) fL MCHC (31.0-37.0) g/dL Neutrophils # 12.9 H (1.3-7.7) k/uL Macrocytosis Marked A PT 15.8 H (9.0-12.0) sec INR 1.6 H (<1.2) ABG pH (7.35-7.45) ABG pCO2 (35-45) mmHg ABG pO2 (83-108) mmHg ABG HCO3 (21-25) mmol/L ABG Total CO2 (19-24) mmol/L ABG O2 Saturation (94-97) % Sodium 133 L (137-145) mmol/L Potassium 3.1 L (3.5-5.1) mmol/L Chloride 118 H (98-107) mmol/L Carbon Dioxide 12 L (22-30) mmol/L Creatinine 0.56 L (0.66-1.25) mg/dL Glucose 150 H (74-99) mg/dL POC Glucose (mg/dL) (75-99) mg/dL Calcium 7.0 L (8.4-10.2) mg/dL Magnesium (1.6-2.3) mg/dL AST (17-59) U/L C-Reactive Protein (<10.0) mg/L Total Protein (6.3-8.2) g/dL Albumin (3.5-5.0) g/dL 02/25/20 02/26/20 02/26/20 Range/Units 23:06 03:16 03:37 WBC 21.8 H (3.8-10.6) k/uL RBC 2.72 L (4.30-5.90) m/uL Hgb 8.9 L (13.0-17.5) gm/dL Hct 30.2 L (39.0-53.0) % MCV 111.0 H (80.0-100.0) fL MCHC 29.5 L (31.0-37.0) g/dL Neutrophils # 18.7 H (1.3-7.7) k/uL Macrocytosis Marked A PT (9.0-12.0) sec INR (<1.2) ABG pH (7.35-7.45) ABG pCO2 (35-45) mmHg ABG pO2 (83-108) mmHg ABG HCO3 (21-25) mmol/L ABG Total CO2 (19-24) mmol/L ABG O2 Saturation (94-97) % Sodium (137-145) mmol/L Potassium (3.5-5.1) mmol/L Chloride (98-107) mmol/L Carbon Dioxide (22-30) mmol/L Creatinine (0.66-1.25) mg/dL Glucose (74-99) mg/dL POC Glucose (mg/dL) 147 H (75-99) mg/dL Calcium (8.4-10.2) mg/dL Magnesium (1.6-2.3) mg/dL AST (17-59) U/L C-Reactive Protein 59.2 H (<10.0) mg/L Total Protein (6.3-8.2) g/dL Albumin (3.5-5.0) g/dL 02/26/20 02/26/20 02/26/20 Range/Units 03:37 03:43 06:28 WBC (3.8-10.6) k/uL RBC (4.30-5.90) m/uL Hgb (13.0-17.5) gm/dL Hct (39.0-53.0) % MCV (80.0-100.0) fL MCHC (31.0-37.0) g/dL Neutrophils # (1.3-7.7) k/uL Macrocytosis PT (9.0-12.0) sec INR (<1.2) ABG pH 7.17 L* 7.34 L (7.35-7.45) ABG pCO2 29 L (35-45) mmHg ABG pO2 264 H (83-108) mmHg ABG HCO3 13 L 16 L (21-25) mmol/L ABG Total CO2 14 L 17 L (19-24) mmol/L ABG O2 Saturation 100.0 H 98.1 H (94-97) % Sodium (137-145) mmol/L Potassium (3.5-5.1) mmol/L Chloride 119 H (98-107) mmol/L Carbon Dioxide 10 L (22-30) mmol/L Creatinine 0.64 L (0.66-1.25) mg/dL Glucose 105 H (74-99) mg/dL POC Glucose (mg/dL) (75-99) mg/dL Calcium 7.1 L (8.4-10.2) mg/dL Magnesium 1.4 L (1.6-2.3) mg/dL AST 75 H (17-59) U/L C-Reactive Protein (<10.0) mg/L Total Protein 5.2 L (6.3-8.2) g/dL Albumin 1.8 L (3.5-5.0) g/dL 02/26/20 Range/Units 12:05 WBC (3.8-10.6) k/uL RBC (4.30-5.90) m/uL Hgb (13.0-17.5) gm/dL Hct (39.0-53.0) % MCV (80.0-100.0) fL MCHC (31.0-37.0) g/dL Neutrophils # (1.3-7.7) k/uL Macrocytosis PT (9.0-12.0) sec INR (<1.2) ABG pH (7.35-7.45) ABG pCO2 (35-45) mmHg ABG pO2 (83-108) mmHg ABG HCO3 (21-25) mmol/L ABG Total CO2 (19-24) mmol/L ABG O2 Saturation (94-97) % Sodium (137-145) mmol/L Potassium (3.5-5.1) mmol/L Chloride (98-107) mmol/L Carbon Dioxide (22-30) mmol/L Creatinine (0.66-1.25) mg/dL Glucose (74-99) mg/dL POC Glucose (mg/dL) 129 H (75-99) mg/dL Calcium (8.4-10.2) mg/dL Magnesium (1.6-2.3) mg/dL AST (17-59) U/L C-Reactive Protein (<10.0) mg/L Total Protein (6.3-8.2) g/dL Albumin (3.5-5.0) g/dL Microbiology - Last 24 Hours (Table) 02/26/20 03:10 Sputum Culture - Preliminary Sputum Assessment and Plan Plan: Assessment: #1. Acute hypoxic respiratory failure related to septic shock, with the suspicion of intra-abdominal source rule out possibility of intra-abdominal abscess #2. Acute cardiac pulmonary arrest on 02/26/2020 related to septic shock, patient required a brief CPR, was emergently intubated and fluid resuscitated, remains on high amount of vasopressor support currently in the form of norepinephrine and vasopressin #3. Increased bibasilar opacities and new small bilateral pleural effusions on the chest x-ray, related to fluid overload #4. Abdominal pain and distention #5. Possible ascites, pending paracentesis #6. Non-anion gap metabolic acidosis related to septic shock, and has received IV fluids and bicarbonate infusion #7. Elevated d-dimer, nonspecific, doubt possibility of pulmonary embolism. CTA chest was suboptimal but did not reveal any evidence of central pulmonary embolism, VQ scan showed intermediate probability for pulmonary embolism, patient was found to have a new left leg DVT, was on Eliquis which we will place on hold right now in view of acute decompensation, and possible need for surgical intervention in view of septic shock, with a suspicion of intra- abdominal source #8. Diverticulitis, status post lower anterior resection, takedown of splenic flexure and partial omentectomy #9. Alcohol abuse with alcohol withdrawal #11. Recent history dark black stools the possibility of upper GI bleeding #12. Altered mental status, related to metabolic encephalopathy, neurology is following #13. History of diverticular disease #14. History of EtOH abuse Plan: Patient is still very hypothermic, and hypotensive, he was fluid resuscitated he received a total of 3 L in fluid boluses this morning, and 2 L of IV fluids yesterday, requiring high amounts of norepinephrine, vasopressin drip was added for hemodynamic support, patient was given 2 A of sodium bicarbonate, and tinea with current ventilator settings. Blood cultures have been sent and pending, patient is covered with a combination of daptomycin, Diflucan, and Zosyn, ID service is following. Stop all oral medications, stop lorazepam, will manage his patient with Diprivan at this time, switches oral medications to IV, stop metoprolol, we'll hold anticoagulation for possibility of surgical procedure, CT abdomen and pelvis with oral contrast only will be obtained, surgical services are following. Lines were placed. We'll continue to stabilize the patient. Remains very critically ill. We will add GI and DVT prophylaxis, continue close hemodynamic monitoring. I performed a history & physical examination of the patient and discussed their management with my nurse practitioner, Felipa Matute. I reviewed the nurse practitioner's note and agree with the documented findings and plan of care. Lung sounds are positive for clear breath sounds throughout the lung arias. The findings and the impression was discussed with the patient. I attest to the documentation by the nurse practitioner. Time with Patient: Greater than 30
[2020-02-26] MEDS: FLUCONAZOLE IN NACL,ISO-OSM 100 MG in SALINE 1 50ML.BAG IVPB SCH (14:24)
[2020-02-26] MEDS: ENOXAPARIN 40 MG/0.4 ML SYRINGE SQ SCH (14:24)
[2020-02-26] MEDS: THIAMINE 100 MG/ML 2 ML VIAL IVP SCH (14:24)
--- NOTE | 2020-02-26 16:25 | US ---
EXAMINATION TYPE: US paracentesis abd w/image DATE OF EXAM: 02/26/2020 CLINICAL HISTORY: Abdominal ascites COMPARISON: CT abdomen pelvis 02/19/2020. Limited abdominal ultrasound 02/25/2020. RIVER RAFTING GUIDE: Dr. Seble Clifford PROCEDURE: Portable bedside ultrasound-guided diagnostic paracentesis in ICU: Preprocedure preliminary ultrasound imaging demonstrates moderate volume ascites. Informed consent was obtained by the patient 02/25/2020. The patient was supine, and prepped and drap ed in the usual sterile fashion. All elements of maximal barrier technique were utilized. Under ultrasound guidance, access into the left lower quadrant was obtained with a 5 Occitan one-step centesis catheter. Approximately 60 cc of clear serous fluid was removed. Catheter was removed and sterile bandage was a pplied. IMPRESSION: Successful bedside ultrasound-guided diagnostic paracentesis, with removal of 60 cc of clear serous f luid.
[2020-02-26 17:15] LABS: Glucose,Whole Blood 131 mg/dL (75-99)
[2020-02-26] MEDS: NOREPINEPHRINE 32 MG in SODIUM CHLORIDE 0.9% 218 ML IV SCH (17:16)
[2020-02-26] MEDS: IOPAMIDOL CONTRAST (ORAL USE) VIAL PO PRN ×2 (17:42→18:43)
[2020-02-26 18:17] LABS: ABG Base Excess -9.9 mmol/L; ABG HCO3 15 mmol/L (21-25); ABG Oxygen Saturation 85.9 % (94-97); ABG PCO2 25 mmHg (35-45); ABG TCO2 16 mmol/L (19-24)
[2020-02-26 18:22] LABS: ABG PO2 50 mmHg (83-108); Allen Test Performed? no
--- NOTE | 2020-02-26 18:58 | XR ---
EXAMINATION TYPE: XR chest 1V portable DATE OF EXAM: 02/26/2020 COMPARISON: Today HISTORY: Hypoxemia TECHNIQUE: FINDINGS: There is nasogastric tube in the stomach. There is endotracheal tube 3 cm from the eber. There is blunting of the costophrenic angles. There is pulmonary edema in the lower lung arias. Ther e are multiple old right-sided rib fractures. IMPRESSION: There is pulmonary edema and pleural fluid unchanged compared to exam this morning.
--- NOTE | 2020-02-26 19:07 | P.PN ---
Progress Note - Text Progress Note Date: 02/26/20 - Chief Complaint Abdominal surgery History of presenting complaint: This is a pleasant 64-year-old patient of . Patient been having complication to his diverticulitis. computed tomography scan on January 08. Showed some possible stricture. Hepatic steatosis. February 06- undergone low anterior resection. Epidural for pain control.patient had elevated d-dimer. Pulmonary embolism felt to be unlikely. CT was suboptimal. VQ scan was intermediate probability. Leg DVT treated with IV heparin. Had some dark stools.also patient had had altered mental status. Scott to be encephalopathy.computed tomography scan of the brain was unremarkable. EGD-no evidence of bleeding. Patient more awake after dose of baclofen cutback. changed over to xarelto.x-ray showing ileus. Patient did start having bowel movements. Repeat computed tomography scan of abdomen showed possible enteritis./Colitis.as abdomen appeared distended. Lemus catheter was placed. No urine retention. Today-patient become hypotensive. Had a brief cardiac and pulmonary arrest Moved to ICU. Had to be intubated. Drips include norepinephrine, vasopressin, propofol. NG tube to suction. FiO2 50% and a PEEP of 5. Patient sedated. pending paracentesis Review of systems: Patient intubated Active Medications Chlorhexidine Gluconate (Chlorhexidine Gluconate 15 Ml Cup) 15 ml MUCOUS MEM BID [facility] Last Admin: 02/26/20 09:39 Dose: 15 ml Documented by: Enoxaparin Sodium (Enoxaparin 40 Mg/0.4 Ml Syringe) 40 mg SQ DAILY [facility] Last Admin: 02/26/20 14:24 Dose: 40 mg Documented by: Ferrous Sulfate (Ferrous Sulfate 325 Mg Tab) 325 mg PO BID-W/MEALS [facility] Last Admin: 02/26/20 09:34 Dose: Not Given Documented by: Piperacillin Sod/Tazobactam (Sod 3.375 gm/ Sodium Chloride) 100 mls @ 25 mls/hr IVPB Q8HR [facility] Last Admin: 02/26/20 17:41 Dose: 25 mls/hr Documented by: Lactated Ringer's (Lactated Ringers) 1,000 mls @ 20 mls/hr IV .Q24H [facility] Last Admin: 02/26/20 01:16 Dose: Not Given Documented by: Daptomycin 350 mg/ Sodium (Chloride) 50 mls @ 100 mls/hr IVPB Q24H [facility]; Protocol Last Admin: 02/26/20 00:44 Dose: 100 mls/hr Documented by: Propofol 1,000 mg/ IV Solution 100 mls @ 0 mls/hr IV .Q0M [facility]; Protocol Last Titration: 02/26/20 17:28 Dose: 50 mcg/kg/min, 17.4 mls/hr Documented by: Sodium Chloride (Saline 0.9%) 1,000 mls @ 75 mls/hr IV .[id number] [facility] Last Admin: 02/26/20 10:43 Dose: 75 mls/hr Documented by: Vasopressin 60 unit/ Sodium (Chloride) 153 mls @ 4.59 mls/hr IV .Q24H [facility] Last Admin: 02/26/20 10:43 Dose: 4.59 mls/hr Documented by: Fluconazole/Sodium Chloride (100 mg/ IV Solution) 50 mls @ 50 mls/hr IVPB DAILY [facility] Last Admin: 02/26/20 14:24 Dose: 50 mls/hr Documented by: Norepinephrine Bitartrate 32 (mg/ Sodium Chloride) 250 mls @ 1.359 mls/hr IV .Q24H [facility]; Protocol Last Titration: 02/26/20 17:35 Dose: 0.5 mcg/kg/min, 13.594 mls/hr Documented by: Lidocaine HCl (Lidocaine 1% (10mg/Ml) For Iv Start) 0.1 ml INTRADERMA PER PROTOCOL PRN PRN Reason: IV Start Last Admin: 02/07/20 08:28 Dose: 0.1 ml Documented by: Metoclopramide HCl (Metoclopramide 5 Mg/Ml 2 Ml Vial) 10 mg IVP Q6HR PRN PRN Reason: Nausea and Vomiting Miscellaneous Information (Magnesium Replacement Protocol 1 Each Misc) 1 each MISCELLANE DAILY PRN; Protocol PRN Reason: Per Protocol Miscellaneous Information (Potassium Replacement Protocol 1 Each Misc) 1 each MISCELLANE DAILY PRN; Protocol PRN Reason: Per Protocol Miscellaneous Information (Potassium Replacement Protocol 1 Each Misc) 1 each MISCELLANE DAILY PRN; Protocol PRN Reason: Per Protocol Miscellaneous Information (Potassium Replacement Protocol 1 Each Misc) 1 each MISCELLANE DAILY PRN; Protocol PRN Reason: Per Protocol Naloxone HCl (Naloxone 0.4 Mg/Ml 1 Ml Vial) 0.2 mg IV Q2M PRN PRN Reason: Opioid Reversal Nicotine Polacrilex (Nicotine Polacrilex 2 Mg Gum) 2 mg BUCCAL Q4HR PRN PRN Reason: Nicotine Cravings Ondansetron HCl (Ondansetron 4 Mg/2 Ml Vial) 4 mg IVP Q8HR PRN PRN Reason: Nausea And Vomiting Pantoprazole Sodium (Pantoprazole 40 Mg/10 Ml Vial) 40 mg IVP BID [facility] Last Admin: 02/26/20 09:39 Dose: 40 mg Documented by: Tamsulosin HCl (Tamsulosin 0.4 Mg Cap.Er.24h) 0.4 mg PO HS [facility] Last Admin: 02/25/20 20:53 Dose: 0.4 mg Documented by: Thiamine HCl (Thiamine 100 Mg/Ml 2 Ml Vial) 100 mg IVP DAILY [facility] Last Admin: 02/26/20 14:24 Dose: 100 mg Documented by: Physical examination: VITAL SIGNS: 97.8, 75, 21, 93/52, 95% on the ventilator GENERAL: Laying in bed, sedated EYES: Pupils equal. Conjunctiva normal. HEENT: External appearance of nose and ears normal, oral cavity endotracheal tube and OG tube. NECK: JVD unable to assess; masses not palpable. HEART: First and second heart sounds are normal; no edema. LUNGS: Respiratory rate increased; decreased breath sounds. ABDOMEN: Soft, distended, , area of subcutaneous swelling around the incision site. PSYCH: Patient sedated INVESTIGATIONS, reviewed in the clinical context: White count 21.8 hemoglobin 8.9 platelets 327-potassium 4.1 creatinine 0.64 Computed tomography scan of the abdomen done today. Previous testing EEG shows evidence of encephalopathy Computed tomography scan of the brain-mild atrophy 2-D echocardiogram-EF 55-60% VQ scan-intermediate probability Chest CTA-suboptimal study. Doppler ultrasound-positive for thrombus within the distal popliteal vein White count 10.2 hemoglobin 14.2 potassium 3.6 B12 some 08 Previously AST 129 ALT 50 Computed tomography scan of the abdomen from January 08-possible colitis, diverticulitis, some esophagitis, hepatic steatosis Abdominal x-ray film personally reviewed by me shows ileus Assessment: -Acute hypoxic respiratory failure, requiring ventilator support-new diagnosis -Septic shock -Status post low anterior resection, for diverticulitis complication -Postop ileus- -Chronic nicotine dependence patient cigarette smoker -Clinical emphysema, asymptomatic -Suspect alcoholic hepatitis -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 -Acute DVT in the left distal popliteal vein -Acute alcohol withdrawal syndrome with improvement -Right lower lobe pneumonia -Abnormal computed tomography scan of the abdomen. Possible enteritis/colitis-ischemic bowel -Mild protein calorie malnutrition from decreased oral intake Plan: Patient now on IV daptomycin, IV Diflucan, IV norepinephrine, IV Zosyn, vasopressin, and propofol. 60 mL of serous abdominal paracentesis was done later this afternoon. Patient being followed by director of events, infectious disease. Critically ill. Thank you Dr. Lee
--- NOTE | 2020-02-26 19:48 | CT ---
EXAMINATION TYPE: CT abdomen pelvis wo con DATE OF EXAM: 02/26/2020 COMPARISON: 02/19/2020 HISTORY: Abdominal distention, pain. CT DLP: 978.6 mGycm Automated exposure control for dose reduction was used. There are large bilateral pleural effusions. There is lower lobe pulmonary airspace consolidation and atelectasis. Heart size is normal. There is no pericardial effusion. There is massive abdominal ascites. There is subcutaneous edema throughout the abdomen. Liver is relatively small and consistent with cirrhosis. There is no evidence of splenic mass. Stomac h is large. There is no evidence of pancreatic mass. There is fluid in the lesser sac. There is no adrenal mass. Kidneys show normal size. There is no hydronephrosis. There is 2 cm cyst po sterior left kidney. There is no adrenal mass. There is no retroperitoneal adenopathy. Ureters are no t dilated. There is some high density contrast material in the large bowel. There is right-sided periumbilical h ernia that contains transverse colon without significant incarceration. There are midline skin staple s. There are distended fluid-filled loops of large bowel. I see no sign of free air. Lumbar spine shows normal alignment of the vertebra. There is 15% wedging of T12 vertebra. There is l eft hip prosthesis. The bony pelvis appears intact. IMPRESSION: There is massive abdominal ascites increased compared to recent exam. Bilateral pleural effusions inc reased compared to recent exam. Subcutaneous edema increased. There is right-sided periumbilical marcello ia that is increased in size compared to recent exam. Distended large bowel suggestive of ileus. Ther e is small liver consistent with cirrhosis. Liver measures 14.5 cm. Unchanged.
[2020-02-26] MEDS: TAMSULOSIN 0.4 MG CAP.ER.24H PO SCH (21:08)
[2020-02-26] MEDS: FERROUS SULFATE ORAL ELIXIR 300 MG/5 ML CUP PO SCH (21:23)
[2020-02-26 22:04] LABS: Appearance,BF Clear; Color,BF Yellow; Nucleated Cells, Body Fluid 33 /uL; RBC, Body Fluid 58 /uL
[2020-02-26 22:05] LABS: Mononuclear WBC,Body Fluid 18 %; Polynuclear WBC,Body Fluid 82 %; Total Cells Counted,Body Fluid 100
[2020-02-26 22:14] LABS: African American GFR (CKD) >90 (>60 ml/min/1.73 sqM); Anion Gap 4 mmol/L; Blood Urea Nitrogen 12 mg/dL (9-20); Calcium 7.2 mg/dL (8.4-10.2); Carbon Dioxide 14 mmol/L (22-30); Chloride 118 mmol/L (98-107); Glucose 131 mg/dL (74-99); Magnesium 1.9 mg/dL (1.6-2.3); Non-African American GFR(CKD) >90 (>60 ml/min/1.73 sqM); Potassium 3.1 mmol/L (3.5-5.1); Sodium 136 mmol/L (137-145)
[2020-02-26] MEDS: DEXTROSE 5% IN WATER 1,000 ML with SODIUM BICARB (1 MEQ/ML) 150 ML IV SCH (22:21)
--- NOTE | 2020-02-26 22:37 | PN ---
PROGRESS NOTE DATE OF SERVICE: 02/26/2020 REASON FOR FOLLOWUP: 1. Leukocytosis. 2. Cardiac arrest. INTERVAL HISTORY: The patient did have cardiac arrest last night. The patient was resuscitated and has been brought to the ICU. The patient is currently intubated on the vent, requiring pressors to maintain his blood pressure as well as 100% FiO2. No significant purulent secretions through the ET have been reported. He did have abdominal distention. Paracentesis was only 60 mL was taken off. No diarrhea reported. PHYSICAL EXAMINATION: Blood pressure is 105/61 with a pulse of 71, temperature is 97.8. He is 98% on 100% FiO2. General description is a middle-aged male, intubated on the vent. RESPIRATORY SYSTEM: Unlabored breathing with decreased breath sounds at the base. No wheeze. HEART: S1, S2. Regular rate and rhythm. ABDOMEN: Soft. Distended. No guarding or rigidity. EXTREMITIES: Trace edema of feet. LABS: Hemoglobin 8.9, white count 21.8. BUN of 10, creatinine 0.64. Sputum culture pending. DIAGNOSTIC IMPRESSION AND PLAN: Patient with leukocytosis which is multifactorial in this patient who is status post low anterior resection, subsequently developing elevated white count with initial concern for possible pneumonia and incisional hernia and possible abdominal cellulitis. The patient is currently covered with daptomycin, Zosyn and Diflucan; to continue. Overall prognosis remains guarded. Will follow up on the culture and adjust antibiotics further if needed. MMODL / IJN: [id number] /
[2020-02-26] MEDS: POTASSIUM BICARBONATE/CIT AC 20 MEQ TABLET.EFF NG-TUBE SCH (23:00)
[2020-02-27] MEDS: PIPERACILLIN-TAZOBACTAM 3.375 GM in SODIUM CHLORIDE 0.9% 100 ML IVPB SCH ×4 (00:50→23:56)
[2020-02-27] MEDS: POTASSIUM BICARBONATE/CIT AC 20 MEQ TABLET.EFF NG-TUBE SCH ×3 (00:52→08:36)
[2020-02-27] MEDS: LACTATED RINGERS 1,000 ML IV SCH (00:53)
[2020-02-27] MEDS: SODIUM CHLORIDE 0.9% 1,000 ML IV SCH (00:53)
[2020-02-27 01:15] LABS: Glucose,Whole Blood 142 mg/dL (75-99)
[2020-02-27] MEDS: DAPTOmycin 350 MG in SODIUM CHLORIDE 0.9% 50 ML IVPB SCH ×2 (02:20→23:57)
[2020-02-27 04:29] LABS: Total Protein, Body Fluid 510 mg/dL
[2020-02-27] MEDS: NOREPINEPHRINE 32 MG in SODIUM CHLORIDE 0.9% 218 ML IV SCH ×2 (04:42→14:24)
[2020-02-27 05:38] LABS: Basophils % (A) 0 %; Eosinophils # (A) 0.2 k/uL (0-0.7); Eosinophils % (A) 1 %; HCT 31.9 % (39.0-53.0); HGB 9.8 gm/dL (13.0-17.5); Hypochromasia Marked; Lymphocytes # (A) 1.9 k/uL (1.0-4.8); Lymphocytes % (A) 7 %; MCH 33.3 pg (25.0-35.0); MCHC 30.9 g/dL (31.0-37.0); MCV 108.1 fL (80.0-100.0); Mean Platelet Volume 8.9; Monocytes # (A) 0.6 k/uL (0-1.0); Monocytes % (A) 2 %; Neutrophils # (A) 23.9 k/uL (1.3-7.7); Neutrophils % (A) 89 %; Platelet Count 439 k/uL (150-450); RBC 2.95 m/uL (4.30-5.90); RDW 15.2 % (11.5-15.5); WBC 26.7 k/uL (3.8-10.6)
[2020-02-27 05:44] LABS: Macrocytosis Marked
[2020-02-27 06:08] LABS: ABG Base Excess -10.1 mmol/L; ABG HCO3 16 mmol/L (21-25); ABG Oxygen Saturation 98.7 % (94-97); ABG PCO2 29 mmHg (35-45); ABG PH 7.34 (7.35-7.45); ABG PO2 104 mmHg (83-108); ABG TCO2 17 mmol/L (19-24); Allen Test Performed? Yes
[2020-02-27 06:14] LABS: ALT 27 U/L (4-49); AST 66 U/L (17-59); African American GFR (CKD) >90 (>60 ml/min/1.73 sqM); Albumin 1.7 g/dL (3.5-5.0); Alkaline Phosphatase 169 U/L (38-126); Anion Gap 6 mmol/L; Blood Urea Nitrogen 12 mg/dL (9-20); Calcium 7.4 mg/dL (8.4-10.2); Carbon Dioxide 16 mmol/L (22-30); Chloride 115 mmol/L (98-107); Glucose 150 mg/dL (74-99); Magnesium 1.9 mg/dL (1.6-2.3); Non-African American GFR(CKD) 88 (>60 ml/min/1.73 sqM); Phosphorus 4.8 mg/dL (2.5-4.5); Potassium 3.2 mmol/L (3.5-5.1); Sodium 137 mmol/L (137-145); Total Bilirubin 0.4 mg/dL (0.2-1.3)
[2020-02-27] MEDS ORDERED: Potassium Replacement Protocol 1 EACH MISC MISCELLANE PRN (06:50)
[2020-02-27] MEDS: FERROUS SULFATE ORAL ELIXIR 300 MG/5 ML CUP PO SCH ×2 (06:53→17:35)
[2020-02-27] MEDS: MAGNESIUM SULFATE-D5W PMX 1 GM in DEXTROSE/WATER 1 100ML.BAG IVPB SCH ×3 (08:21→10:39)
[2020-02-27] MEDS: CHLORHEXIDINE GLUCONATE 15 ML CUP MUCOUS MEM SCH ×2 (08:22→20:04)
[2020-02-27] MEDS: THIAMINE 100 MG/ML 2 ML VIAL IVP SCH (08:22)
[2020-02-27] MEDS: ENOXAPARIN 40 MG/0.4 ML SYRINGE SQ SCH (08:22)
[2020-02-27] MEDS: PANTOPRAZOLE 40 MG/10 ML VIAL IVP SCH ×2 (08:23→20:04)
[2020-02-27] MEDS ORDERED: FUROSEMIDE 10 MG/ML 4 ML VIAL IV STA ×2 (08:58→08:59)
[2020-02-27] MEDS ORDERED: ALBUMIN HUMAN 5% 250 ML in EMPTY BAG 1 BAG IVPB STA (09:00)
[2020-02-27] MEDS: FLUCONAZOLE IN NACL,ISO-OSM 100 MG in SALINE 1 50ML.BAG IVPB SCH (09:24)
--- NOTE | 2020-02-27 10:25 | XR ---
EXAMINATION TYPE: XR chest 1V portable DATE OF EXAM: 02/27/2020 CLINICAL HISTORY: Tube placement. TECHNIQUE: Portable semiupright view of the chest. COMPARISON: 02/26/2020 chest radiograph FINDINGS: Endotracheal tube distal tip again midway between the clavicular heads and the eber. Ent michelle tube with distal tip and side-port over the stomach. The cardiomediastinal silhouette is within normal limits for size. Redemonstrated bilateral small pleural effusions and bibasilar airspace opaci ties. No pneumothorax. Old right-sided rib fracture deformities. IMPRESSION: 1. Small bilateral pleural effusions and bibasilar airspace opacities redemonstrated. 2. Endotracheal tube distal tip between the clavicular heads and eber. 3. Enteric tube distal tip and side-port overlie the stomach.
[2020-02-27] MEDS: POTASSIUM CHLORIDE 20 MEQ in WATER FOR INJECTION 1 100ML.BAG IVPB SCH ×2 (10:37→12:55)
[2020-02-27] MEDS: SODIUM CHLORIDE 0.9% 150 ML with VASOPRESSIN 60 UNIT IV SCH ×2 (10:38)
--- NOTE | 2020-02-27 10:59 | P.PN ---
Subjective Progress Note Date: 02/27/20 CHIEF COMPLAINT: Diverticulitis HISTORY OF PRESENT ILLNESS: Patient is status post lower anterior resection, takedown of splenic flexure and partial omentectomy on 02/07/2020. The morning of 02/26/20 patient was transferred to the ICU after STEVE KUMAR was called. Patient had become hypothermic and hypotensive. Patient become unresponsive they lost pulse and CPR was initiated. Patient did require to be intubated. Patient is currently intubated and sedated. Patient had diagnostic paracentesis completed yesterday. However, he is still having large amount of ascites fluid leaking from the paracentesis site. He has had almost 3 L drained out through the paracentesis site. He is scheduled for chest ultrasound today to evaluated for possible thoracentesis. Patient is requiring vasopressors. He remains on mechanical ventilation and is sedated. She did receive a dose of IV Lasix for his pleural effusions. CT abdomen and pelvis there is massive abdominal ascites increased compared rece nt exam. Bilateral pleural effusions increased compared to recent exam. Subcutaneous edema increased. There is a right-sided periumbilical hernia that is increased in size compared recent exam. Distended large bowel suggestive of ileus. There is small liver consistent with cirrhosis. Liver measuring 14.5 cm. Unchanged PHYSICAL EXAM: VITAL SIGNS: Reviewed. GENERAL: Well-developed in no acute distress. HEENT: No sclera icterus. Extraocular movements grossly intact. Moist buccal mucosa. Head is atraumatic, normocephalic. ABDOMEN: Abdomen is distended. Ascites present. Area of induration along the right side of the incision. Incision clean dry and intact. Ascites draining from paracentesis site on left side of abdomen NEUROLOGIC: Patient is intubated and sedated ASSESSMENT: 1. Cardiopulmonary arrest 2. Diverticulitis status post lower anterior resection, takedown of splenic flexure and partial omentectomy on 02/07/2020 3. Patient's abdominal distention likely related to ileus, ascites from his liver cirrhosis and possible hernia. 4. Alcohol abuse with alcohol withdrawal 5. New left leg DVT during this admission anticoagulated with Xarelto 6. Possible ileus 7. Black stools. Resolved. No evidence of upper GI bleed on EGD. EGD was normal 8. Altered mental status likely due to alcohol withdrawal syndrome. Patient evaluated by neurology 9. Possible right lower lobe pneumonia 10. Severe protein calorie malnutrition continue ensure PLAN: -Reconsulting interventional radiology for a therapeutic paracentesis. Dr. Lee did discuss case with radiologist. -Continue ICU care and vent management per critical care service -Continue supportive care Physician Metrology Specialist note has been reviewed by physician. Signing provider agrees with the documented findings, assessment, and plan of care. Objective - Vital Signs Vital signs: Vital Signs Temp 97.3 F L 02/27/20 04:00 Pulse 92 02/27/20 07:45 Resp 16 02/27/20 07:45 BP 76/58 02/26/20 18:30 Pulse Ox 98 02/27/20 07:45 Intake & Output 02/26/20 02/27/20 02/27/20 18:59 06:59 18:59 Intake Total 6156.088 0777.189 168.972 Output Total 705 2312 205 Balance 1192.789 -1003.811 -36.028 Weight 72.2 kg Intake: IV 1333 891 73 0.9 NS 375 Dextrose 5% in Water 1, 450 50 000 ml @ 50 mls/hr IV . Q23H JOANA with Sodium Bicarb (1 Meq/ml) 150 ml Rx#:[id number] Magnesium Sulfate-D5w Pmx 300 1 gm In Dextrose/Water 1 100ml.bag @ 100 mls/hr IVPB Q1H JOANA Rx#: [id number] Normal Saline Carrier 80 20 Piperacillin-Tazobactam 3 100 .375 gm In Sodium Chloride 0.9% 100 ml @ 25 mls/hr IVPB Q8HR JOANA Rx# :[id number] Pressure bag 33 36 3 Sodium Chloride 0.9% 1, 525 325 000 ml @ 75 mls/hr IV . [id number] JOANA Rx#:[id number] Intake, IV Titration 564.789 417.189 95.972 Amount Fluconazole in NaCl,Iso- 50 Osm 100 mg In Saline 1 50ml.bag @ 50 mls/hr IVPB DAILY JOANA Rx#:[id number] Norepinephrine 32 mg In 3.127 169.969 95.972 Sodium Chloride 0.9% 218 ml @ 0.05 MCG/KG/MIN 1. 359 mls/hr IV .Q24H JOANA Rx#:[id number] Norepinephrine 4 mg In 157.632 Sodium Chloride 0.9% 250 ml @ 0.05 MCG/KG/MIN 11. 049 mls/hr IV .Q23H JOANA Rx#:[id number] Norepinephrine 8 mg In 258.000 Sodium Chloride 0.9% 250 ml @ 0.05 MCG/KG/MIN 5. 612 mls/hr IV .Q24H JOANA Rx#:[id number] Sodium Chloride 0.9% 150 22.95 13.77 ml @ 0.03 UNITS/MIN 4.59 mls/hr IV .Q24H JOANA with Vasopressin 60 unit Rx#: [id number] propofoL 1,000 mg In 73.080 233.45 Empty Bag 1 bag @ Titrate IV .Q0M JOANA Rx#: [id number] Output: Drainage 600 2150 200 Left Lower Lateral 600 2150 200 Abdomen Paracentesis Site Urine 105 162 5 Other: Voiding Method Indwelling Catheter Indwelling Catheter Indwelling Catheter ABP, PAP, CO, CI - Last Documented Arterial Blood Pressure 102/53 - Labs CBC & Chem 7: 02/27/20 05:10 02/27/20 05:10 Labs: Abnormal Lab Results - Last 24 Hours (Table) 02/26/20 02/26/20 02/26/20 Range/Units 12:05 17:13 18:09 WBC (3.8-10.6) k/uL RBC (4.30-5.90) m/uL Hgb (13.0-17.5) gm/dL Hct (39.0-53.0) % MCV (80.0-100.0) fL MCHC (31.0-37.0) g/dL Neutrophils # (1.3-7.7) k/uL Macrocytosis ABG pH (7.35-7.45) ABG pCO2 25 L (35-45) mmHg ABG pO2 50 L* (83-108) mmHg ABG HCO3 15 L (21-25) mmol/L ABG Total CO2 16 L (19-24) mmol/L ABG O2 Saturation 85.9 L (94-97) % Sodium (137-145) mmol/L Potassium (3.5-5.1) mmol/L Chloride (98-107) mmol/L Carbon Dioxide (22-30) mmol/L Glucose (74-99) mg/dL POC Glucose (mg/dL) 129 H 131 H (75-99) mg/dL Calcium (8.4-10.2) mg/dL Phosphorus (2.5-4.5) mg/dL AST (17-59) U/L Alkaline Phosphatase (38-126) U/L Total Protein (6.3-8.2) g/dL Albumin (3.5-5.0) g/dL 02/26/20 02/27/20 02/27/20 Range/Units 21:52 01:03 05:10 WBC 26.7 H (3.8-10.6) k/uL RBC 2.95 L (4.30-5.90) m/uL Hgb 9.8 L (13.0-17.5) gm/dL Hct 31.9 L (39.0-53.0) % MCV 108.1 H (80.0-100.0) fL MCHC 30.9 L (31.0-37.0) g/dL Neutrophils # 23.9 H (1.3-7.7) k/uL Macrocytosis Marked A ABG pH (7.35-7.45) ABG pCO2 (35-45) mmHg ABG pO2 (83-108) mmHg ABG HCO3 (21-25) mmol/L ABG Total CO2 (19-24) mmol/L ABG O2 Saturation (94-97) % Sodium 136 L (137-145) mmol/L Potassium 3.1 L (3.5-5.1) mmol/L Chloride 118 H (98-107) mmol/L Carbon Dioxide 14 L (22-30) mmol/L Glucose 131 H (74-99) mg/dL POC Glucose (mg/dL) 142 H (75-99) mg/dL Calcium 7.2 L (8.4-10.2) mg/dL Phosphorus (2.5-4.5) mg/dL AST (17-59) U/L Alkaline Phosphatase (38-126) U/L Total Protein (6.3-8.2) g/dL Albumin (3.5-5.0) g/dL 02/27/20 02/27/20 Range/Units 05:10 06:00 WBC (3.8-10.6) k/uL RBC (4.30-5.90) m/uL Hgb (13.0-17.5) gm/dL Hct (39.0-53.0) % MCV (80.0-100.0) fL MCHC (31.0-37.0) g/dL Neutrophils # (1.3-7.7) k/uL Macrocytosis ABG pH 7.34 L (7.35-7.45) ABG pCO2 29 L (35-45) mmHg ABG pO2 (83-108) mmHg ABG HCO3 16 L (21-25) mmol/L ABG Total CO2 17 L (19-24) mmol/L ABG O2 Saturation 98.7 H (94-97) % Sodium (137-145) mmol/L Potassium 3.2 L (3.5-5.1) mmol/L Chloride 115 H (98-107) mmol/L Carbon Dioxide 16 L (22-30) mmol/L Glucose 150 H (74-99) mg/dL POC Glucose (mg/dL) (75-99) mg/dL Calcium 7.4 L (8.4-10.2) mg/dL Phosphorus 4.8 H (2.5-4.5) mg/dL AST 66 H (17-59) U/L Alkaline Phosphatase 169 H (38-126) U/L Total Protein 5.0 L (6.3-8.2) g/dL Albumin 1.7 L (3.5-5.0) g/dL Microbiology - Last 24 Hours (Table) 02/26/20 13:00 Gram Stain - Preliminary Sputum Sputum Culture - Preliminary 02/25/20 23:06 Blood Culture - Preliminary Blood No Growth after 24 hours 02/26/20 16:15 Gram Stain - Preliminary Ascites Fluid Body Fluid Culture - Preliminary 02/26/20 03:10 Gram Stain - Preliminary Sputum Sputum Culture - Preliminary
[2020-02-27 12:45] LABS: Glucose,Whole Blood 183 mg/dL (75-99)
[2020-02-27] MEDS ORDERED: SODIUM ACETATE IV ONE ×19 (13:00)
[2020-02-27] MEDS ORDERED: [UNRECOGNIZED DRUG - OTHER] IV ONE ×19 (13:00)
[2020-02-27] MEDS ORDERED: POTASSIUM ACETATE IV ONE ×19 (13:00)
[2020-02-27] MEDS ORDERED: MAGNESIUM SULFATE IV ONE ×19 (13:00)
--- NOTE | 2020-02-27 14:32 | US ---
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 Seble Clifford PROCEDURE: Bedside ultrasound-guided paracentesis Preprocedure preliminary ultrasound imaging demonstrates large volume ascites. Informed consent was obtained by the patient's family. The patient was supine and prepped and draped in the usual sterile fashion. All elements of maximal barrier technique were utilized. Under ultrasound guidance, access into the left lower quadrant was obtained with a 5 Spanish one-step centesis catheter. Approximately 4.7 liters of clear serous fluid was removed. Catheter was removed and sterile bandage was applied. The patient was stable throughout the procedure. IMPRESSION: Successful therapeutic ultrasound-guided paracentesis, with removal of 4.7 liters of clear serous flu id.
--- NOTE | 2020-02-27 15:25 | US ---
EXAMINATION TYPE: US chest DATE OF EXAM: 02/27/2020 COMPARISON: Chest radiograph 02/27/2020 CLINICAL HISTORY: Markings for thoracentesis by pulmonary staff. Effusions TECHNIQUE: Targeted ultrasound of the posterior lower bilateral hemithoraces EXAM MEASUREMENTS: Right Pleural Effusion pocket size: 9.3 cm Right skin surface to fluid distance: 4.2 cm Left Pleural Effusion pocket size: 9.1 cm Left skin surface to fluid distance: 3.0 cm Right side marked for possible thoracentesis outside the dept. Please note lung persistent in image s Left side marked for possible thoracentesis outside the dept. Please note lung persistent in images Pulmonologists are able to review the images in the patient?s EMR. IMPRESSIONS: Bilateral pleural effusions with site marking for possible thoracentesis outside of radi ology department.
--- NOTE | 2020-02-27 16:10 | P.PN ---
Subjective Progress Note Date: 02/27/20 Principal diagnosis: Acute hypoxic respiratory failure, massive ascites, liver cirrhosis, possible abdominal sepsis. This is a 64-year-old white male patient status post low anterior resection for strictures and diverticular disease, and this is postoperative day #6. Following his surgery on February 08 patient had a thrombus discomfort within the distal popliteal vein in his left leg, on the liver night patient had a CT angiogram of the chest which was a suboptimal study and did not reveal any large saddle all of central pulmonary emboli. The computed tomography scan showed evidence of small bilateral pleural effusions and multifocal groundglass opacities that could relate to pulmonary edema and/or pneumonia. His chest x- ray from February 11 showed bilateral infiltrates that could be consistent with pneumonia or heart failure. VQ scan showed indeterminate probability for pulmonary embolism. Patient has been confused, apparently he does have history of chronic EtOH, but it has been 60 since his admission, he remains very confused, he is on 3 L of oxygen and the pulse ox of 95%, he was started on heparin infusion for DVT in his left leg. We did not think there was a pulmonary embolism based on his workup. His brain CT showed no acute intracranial abnormality. In addition there is a possibility of GI bleeding as the patient has been passing some dark stools. Is not appear to be in any respiratory distress, he remains lethargic, confused. Neurology is following, EEGs in progress. Dr. Araujo is planning on EGD tomorrow for evaluation of black stools. On 02/14/2020 patient seen in follow-up on general medical surgical floor his heparin drip is off, his 0.9 normal saline running at 75 ML per hour, appears to be more awake on today's exam, although still confused, she is only oriented to percent, no agitation. No signs of respiratory difficulty, he is on 3 L of oxygen pulse ox is 95%, hemodynamically stable, his abdomen is slightly tender postsurgery, his incision covered with dressing, his been afebrile, breathing is nonlabored, lung sounds reveal a few basilar crackles, no rhonchi or wheezing. Surgery is planned and on EGD today, neurology is following, EEG revealed background slowing of moderate degree suggestive of generalized cerebral dysfunction related to toxic metabolic encephalopathy. Today's hemoglobin is 8.6, had one bowel movement this morning. On 02/15/2020 patient seen in follow-up on general medical surgical floor, patient had EGD done yesterday which did not reveal any active bleeding, patient was restarted on heparin infusion for evidence of DVT in his lower extremity, no worsening dyspnea, patient is still on and off lethargic, but appears to be in no acute distress. He is on 3 L of oxygen pulse ox of 95%, his been afebrile, completed chest pain. No hemoptysis. Today's hemoglobin is 9.0. On 02/26/2020 we were reconsulted in view of significant clinical deterioration last night, rapid response team was called, alva gama was activated at 0243 in the morning on 02/26/2020. Apparently patient was having ongoing abdominal pain for the past few days prior to the event, he was believed to have ileus. His abdominal CT of abdomen and pelvis was done on 02/19/2020 showing postoperative changes in the sigmoid colon, proximal to this level there was abnormal thickening of the right colon, some thickened small bowel loops were also present, no is no evidence of free air, there was evidence of increased amount of ascites. There was interval development of bilateral pleural effusions and associated atelectasis. Past few days patient also developed a low urine output urology also consulted on the case for difficult Lemus insertion and possible urinary retention. Yesterday on 02/25/2020 ultrasound abdomen showed moderate ascites in the right flank. His abdomen continued to be more distended and painful, patient was eating some oral intake, however his blood pressures were running on the lower side, his urine output continued to be low, there was paracentesis planned a possibility of ascites. Last night patient developed hypothermia, and hypotension. Patient became unresponsive, and there was no palpable pulse. CPR was started and immediately patient became responsive, CPR was stopped, patient was emergently intubated placed on mechanical ventilator and transferred to the intensive care unit. ID service has been following, patient's antibiotic coverage includes daptomycin. This morning he seen in the intensive care unit, sedated, intubated, on assist-control mode of ventilation, with a rate of 16, tidal planning is 500, FiO2 of 50%, and PEEP of 5. This was blood gases showed pO2 of 88, pCO2 of 29, and pH is 7.34. Patient is hypotensive, he is requiring levo fed at 0.43 mics per kilo per minute over 25 mics per minute, Diprivan and is at 40 mics per kilo per minute, patient has received fluid resuscitation, yesterday she had received 2 L of fluid from the surgical team earlier in the day, and he received additional 2 L bolus after his cardiac pulmonary arrest early this morning, his maintenance IV fluids are currently infusing at a rate of 75 ML per hour. Patient kidney to be hypotensive, we gave him an additional liter fluid bolus today, and she will be started on a vasopressin infusion for refractory hypotension. Blood cultures have been sent, pending at this time. Prior blood cultures and sputum culture. Patient's abdomen remains very tense, distended, firm, with the area of redness and discoloration, and induration near the mid abdominal surgical incision. Patient has a lot of generalized swelling, he is weeping from the catheter insertion sites. He had right femoral central line catheter placed by Dr. Jarrell at the bedside and a right radial art line placed for close hemodynamic monitoring. This morning's lab work has been reviewed showing squamous cell count of 21.8, hemoglobin of 8.9, sodium of 137, potassium is 4.1, chloride is 119, CO2 is 10, BUN is 10 and creatinine 0.64, patient was given 2 A of sodium bicarbonate. Reevaluated today on 02/27/20, patient is in the ICU, intubated and mechanically ventilated, his assist-control rate is 16 volume is 500 FiO2 is still on the percent, PEEP is 5. ABG today showed a pO2 of 104 pCO2 of 29 pH of 7.34 hence recommended that the patient gets the PEEP up to 8, and I cut down his FiO2 to 80%. Patient remains on norepinephrine at 46 mcg/m, he is also on bicarb drip, vasopressin was added today at 0.03, propofol is at 50 mcg/kg/m. Patient also remains on fluconazole and on daptomycin, his abdominal paracentesis was not therapeutic, it was mostly diagnostic, and so far the fluid does not seem to be diagnostic. Continues to have slight leakage from the site of his paracentesis, and the patient put out almost 3 L out in 24 hours from the same site where the paracentesis was done. Patient developed bilateral pleural effusions, however the ultrasound did not show enough fluid to perform a thoracentesis safely. Hence will hold on thoracentesis. Poor quality ultrasound pictures noted, cannot trust to perform safe thoracentesis on this patient. Hence we will hold, patient had repeat paracentesis by interventional radiology, and over 4.7 L of fluids were removed from the peritoneal cavity, and that will definitely improved the pleural effusions which are mostly related to his ascites. Objective - Vital Signs Vital signs: Vital Signs Temp 97.4 F L 02/27/20 12:00 Pulse 97 02/27/20 14:00 Resp 16 02/27/20 14:00 BP 76/58 02/26/20 18:30 Pulse Ox 98 02/27/20 14:00 Intake & Output 02/26/20 02/27/20 02/27/20 18:59 06:59 18:59 Intake Total 6902.932 3872.189 1459.669 Output Total 705 2312 5510 Balance 1192.789 -1003.811 -4050.331 Weight 72.2 kg 72.2 kg Intake: IV 1333 891 488 0.9 NS 375 Dextrose 5% in Water 1, 450 300 000 ml @ 50 mls/hr IV . Q23H JOANA with Sodium Bicarb (1 Meq/ml) 150 ml Rx#:[id number] Fluconazole in NaCl,Iso- 50 Osm 100 mg In Saline 1 50ml.bag @ 50 mls/hr IVPB DAILY JOANA Rx#:[id number] Magnesium Sulfate-D5w Pmx 300 1 gm In Dextrose/Water 1 100ml.bag @ 100 mls/hr IVPB Q1H JOANA Rx#: [id number] Normal Saline Carrier 80 120 Piperacillin-Tazobactam 3 100 .375 gm In Sodium Chloride 0.9% 100 ml @ 25 mls/hr IVPB Q8HR JOANA Rx# :[id number] Pressure bag 33 36 18 Sodium Chloride 0.9% 1, 525 325 000 ml @ 75 mls/hr IV . [id number] JOANA Rx#:[id number] Intake, IV Titration 564.789 417.189 971.669 Amount Albumin Human 5% 250 ml 250 In Empty Bag 1 bag @ 250 mls/hr IVPB ONCE STA Rx#: [id number] Fluconazole in NaCl,Iso- 50 Osm 100 mg In Saline 1 50ml.bag @ 50 mls/hr IVPB DAILY JOANA Rx#:[id number] Magnesium Sulfate-D5w Pmx 200 1 gm In Dextrose/Water 1 100ml.bag @ 100 mls/hr IVPB Q1H JOANA Rx#: [id number] Norepinephrine 32 mg In 3.127 169.969 176.719 Sodium Chloride 0.9% 218 ml @ 0.05 MCG/KG/MIN 1. 359 mls/hr IV .Q24H JOANA Rx#:[id number] Norepinephrine 4 mg In 157.632 Sodium Chloride 0.9% 250 ml @ 0.05 MCG/KG/MIN 11. 049 mls/hr IV .Q23H JOANA Rx#:[id number] Norepinephrine 8 mg In 258.000 Sodium Chloride 0.9% 250 ml @ 0.05 MCG/KG/MIN 5. 612 mls/hr IV .Q24H JOANA Rx#:[id number] Potassium Chloride 20 meq 200 In Water For Injection 1 100ml.bag @ 50 mls/hr IVPB Q2H JOANA Rx#: [id number] Sodium Chloride 0.9% 150 22.95 13.77 ml @ 0.03 UNITS/MIN 4.59 mls/hr IV .Q24H JOANA with Vasopressin 60 unit Rx#: [id number] propofoL 1,000 mg In 73.080 233.45 144.95 Empty Bag 1 bag @ Titrate IV .Q0M JOANA Rx#: [id number] Output: Drainage 600 2150 5195 Left Lower Lateral 600 2150 5195 Abdomen Paracentesis Site Urine 105 162 315 Other: Voiding Method Indwelling Catheter Indwelling Catheter Indwelling Catheter ABP, PAP, CO, CI - Last Documented Arterial Blood Pressure 113/61 - Exam GENERAL EXAM: Intubated sedated 64-year-old white male, intubated and mechanically ventilated. HEAD: Normocephalic/atraumatic. EYES: Normal reaction of pupils, equal size. Conjunctiva pink, sclera white. NOSE: Clear with pink turbinates. THROAT: No erythema or exudates. NECK: No masses, no JVD, no thyroid enlargement, no adenopathy. CHEST: No chest wall deformity. Symmetrical expansion. LUNGS: Equal air entry with no crackles, wheeze, rhonchi or dullness. CVS: Regular rate and rhythm, normal S1 and S2, no gallops, no murmurs, no rubs ABDOMEN: Distended, with postsurgical tenderness, and indurated discoloration and redness near the surgical incision on the right abdomen, mid abdominal in cision with yvonne intact, however the skin is quite shiny, abdomen is distended. EXTREMITIES: No clubbing, 1+ lower extremity edema, patient has a weeping edema with the drainage from the catheter insertion sites no cyanosis, 2+ pulses and upper and lower extremities. MUSCULOSKELETAL: Muscle strength and tone normal. SPINE: No scoliosis or deformity SKIN: No rashes CENTRAL NERVOUS SYSTEM: Unable to assess, patient is sedated and intubated. No focal deficits, tone is normal in all 4 extremities. - Labs CBC & Chem 7: 02/27/20 05:10 02/27/20 05:10 Labs: Abnormal Lab Results - Last 24 Hours (Table) 02/26/20 02/26/20 02/26/20 Range/Units 17:13 18:09 21:52 WBC (3.8-10.6) k/uL RBC (4.30-5.90) m/uL Hgb (13.0-17.5) gm/dL Hct (39.0-53.0) % MCV (80.0-100.0) fL MCHC (31.0-37.0) g/dL Neutrophils # (1.3-7.7) k/uL Macrocytosis ABG pH (7.35-7.45) ABG pCO2 25 L (35-45) mmHg ABG pO2 50 L* (83-108) mmHg ABG HCO3 15 L (21-25) mmol/L ABG Total CO2 16 L (19-24) mmol/L ABG O2 Saturation 85.9 L (94-97) % Sodium 136 L (137-145) mmol/L Potassium 3.1 L (3.5-5.1) mmol/L Chloride 118 H (98-107) mmol/L Carbon Dioxide 14 L (22-30) mmol/L Glucose 131 H (74-99) mg/dL POC Glucose (mg/dL) 131 H (75-99) mg/dL Calcium 7.2 L (8.4-10.2) mg/dL Phosphorus (2.5-4.5) mg/dL AST (17-59) U/L Alkaline Phosphatase (38-126) U/L Total Protein (6.3-8.2) g/dL Albumin (3.5-5.0) g/dL 11/25/20 11/25/20 11/25/20 Range/Units 01:03 05:10 05:10 WBC 26.7 H (3.8-10.6) k/uL RBC 2.95 L (4.30-5.90) m/uL Hgb 9.8 L (13.0-17.5) gm/dL Hct 31.9 L (39.0-53.0) % MCV 108.1 H (80.0-100.0) fL MCHC 30.9 L (31.0-37.0) g/dL Neutrophils # 23.9 H (1.3-7.7) k/uL Macrocytosis Marked A ABG pH (7.35-7.45) ABG pCO2 (35-45) mmHg ABG pO2 (83-108) mmHg ABG HCO3 (21-25) mmol/L ABG Total CO2 (19-24) mmol/L ABG O2 Saturation (94-97) % Sodium (137-145) mmol/L Potassium 3.2 L (3.5-5.1) mmol/L Chloride 115 H (98-107) mmol/L Carbon Dioxide 16 L (22-30) mmol/L Glucose 150 H (74-99) mg/dL POC Glucose (mg/dL) 142 H (75-99) mg/dL Calcium 7.4 L (8.4-10.2) mg/dL Phosphorus 4.8 H (2.5-4.5) mg/dL AST 66 H (17-59) U/L Alkaline Phosphatase 169 H (38-126) U/L Total Protein 5.0 L (6.3-8.2) g/dL Albumin 1.7 L (3.5-5.0) g/dL 02/27/20 02/27/20 Range/Units 06:00 12:43 WBC (3.8-10.6) k/uL RBC (4.30-5.90) m/uL Hgb (13.0-17.5) gm/dL Hct (39.0-53.0) % MCV (80.0-100.0) fL MCHC (31.0-37.0) g/dL Neutrophils # (1.3-7.7) k/uL Macrocytosis ABG pH 7.34 L (7.35-7.45) ABG pCO2 29 L (35-45) mmHg ABG pO2 (83-108) mmHg ABG HCO3 16 L (21-25) mmol/L ABG Total CO2 17 L (19-24) mmol/L ABG O2 Saturation 98.7 H (94-97) % Sodium (137-145) mmol/L Potassium (3.5-5.1) mmol/L Chloride (98-107) mmol/L Carbon Dioxide (22-30) mmol/L Glucose (74-99) mg/dL POC Glucose (mg/dL) 183 H (75-99) mg/dL Calcium (8.4-10.2) mg/dL Phosphorus (2.5-4.5) mg/dL AST (17-59) U/L Alkaline Phosphatase (38-126) U/L Total Protein (6.3-8.2) g/dL Albumin (3.5-5.0) g/dL Microbiology - Last 24 Hours (Table) 02/26/20 10:25 Blood Culture - Preliminary Blood No Growth after 24 hours 02/26/20 10:21 Blood Culture - Preliminary Blood No Growth after 24 hours 02/26/20 13:00 Gram Stain - Preliminary Sputum Sputum Culture - Preliminary 02/26/20 03:10 Gram Stain - Preliminary Sputum Sputum Culture - Preliminary Pita albicans 02/25/20 23:06 Blood Culture - Preliminary Blood No Growth after 24 hours 02/26/20 16:15 Gram Stain - Preliminary Ascites Fluid Body Fluid Culture - Preliminary Assessment and Plan Assessment: #1. Acute hypoxic respiratory failure related to septic shock, with the suspicion of intra-abdominal source rule out possibility of intra-abdominal a bscess #2. Acute cardiac pulmonary arrest on 02/26/2020 related to septic shock, patient required a brief CPR, was emergently intubated and fluid resuscitated, remains on high amount of vasopressor support currently in the form of norepinephrine and vasopressin #3. Increased bibasilar opacities and new small bilateral pleural effusions on the chest x-ray, most likely fluid from the ascites fluid into the pleural space. #4. Abdominal pain and distention #5. Massive ascites secondary to liver cirrhosis #6. Non-anion gap metabolic acidosis related to septic shock, and has received IV fluids and bicarbonate infusion #7. Elevated d-dimer, nonspecific, doubt possibility of pulmonary embolism. CTA chest was suboptimal but did not reveal any evidence of central pulmonary embolism, VQ scan showed intermediate probability for pulmonary embolism, patient was found to have a new left leg DVT, was on Eliquis which we will place on hold right now in view of acute decompensation, and possible need for surgical intervention in view of septic shock, with a suspicion of intra- abdominal source #8. Diverticulitis, status post lower anterior resection, takedown of splenic flexure and partial omentectomy #9. Alcohol abuse with alcohol withdrawal #11. Recent history dark black stools the possibility of upper GI bleeding #12. Altered mental status, related to metabolic encephalopathy, neurology is following #13. History of diverticular disease #14. History of EtOH abuse Recommendation: Continue present supportive care measures. Continue ventilatory support. Continue hemodynamic support. Continue warming blankets for hypothermia. Continue pressors May give the patient trial of steroids for his hypothermia and hypotension Continue antibiotics and antifungal therapy. Repeat paracentesis was done by interventional radiology, and 4.7 L were removed today. Consider trial of diuretics. Consider albumin infusions. Prognosis remains extremely poor and guarded. Discussed his condition with surgeon on the case. Critical care time is 40 minutes Time with Patient: Greater than 30
[2020-02-27 17:21] LABS: Glucose,Whole Blood 188 mg/dL (75-99)
[2020-02-27] MEDS: HYDROCORTISONE SUCCINATE 100 MG/2 ML VIAL IV SCH ×2 (17:35→23:56)
[2020-02-27] MEDS: INSULIN ASPART (NovoLOG) 100 UNIT/ML VIAL SQ SCH ×2 (17:38→23:57)
[2020-02-27] MEDS ORDERED: POTASSIUM CHLORIDE 20 MEQ in WATER FOR INJECTION 1 100ML.BAG IVPB ONE (18:00)
--- NOTE | 2020-02-27 18:22 | PN ---
PROGRESS NOTE DATE OF SERVICE: 02/27/2020 This 64-year-old gentleman who was admitted after low anterior resection had abdominal discomfort. CT scan showed bilateral pleural effusions with multifocal ground-glass opacities that could be related to pulmonary edema or pneumonia. V/Q scan showed intermediate probability of pulmonary embolism. Patient is confused. The patient is hypoxic and is on mechanical ventilation at this time. Thoracocentesis is being planned by Interventional Radiology at this time. The patient had DVT of the left leg and heparin infusion has been started. There is a possibility of GI bleed because of the passage of dark blood, also. The patient is being closely monitored at this time in the ICU. Dr. Menchaca and multiple consultants are following the patient closely, including the surgeon, Dr. Lee. The cardiorespiratory arrest was thought to be septic shock. Intraabdominal abscess was also considered as a possibility. Infectious Disease Dr. Dee has seen the patient and recommended broad-spectrum IV antibiotics and antifungals. A CT scan of the abdomen and pelvis was also noted. Massive abdominal ascites was noted with bilateral pleural effusion. Past medical history reviewed. Review of systems could not be taken. The patient is mechanically ventilated and sedated. CURRENT MEDICATIONS: Reviewed. They include Peridex, daptomycin, Lovenox, fluconazole, Narcan, norepinephrine, Protonix, Zosyn, Flomax. PHYSICAL EXAMINATION: Patient is mechanically ventilated and sedated. Pulse 94, blood pressure 120/60, respiration 13, temperature normal, pulse ox 97% on 40% FiO2. Vent settings are noted. HEENT: Conjunctivae normal. NECK: No jugular venous distention. CARDIOVASCULAR SYSTEM: S1, S2 muffled. RESPIRATORY SYSTEM: Breath sounds diminished at the bases. Bilateral scattered rhonchi and crackles. ABDOMEN: Soft, non-tender. NERVOUS SYSTEM: Patient is sedated. LABS: WBC 26.7, hemoglobin 9.8, sodium 137, potassium 3.2, phosphorus 4.8, calcium 7.7, albumin 1.7. ASSESSMENT: 1. Status post low anterior resection for diverticulitis. 2. Acute hypoxic respiratory failure secondary from abdominal sepsis and severe sepsis and hypotension and septic shock. 3. Ascites; rule out chronic liver disease and cirrhosis of the liver. 4. Postoperative ileus. 5. Bilateral pleural effusion, status post thoracocentesis. 6. History of nicotine dependence. 7. History of chronic obstructive pulmonary disease. 8. History of alcoholic hepatitis. 9. Mild hyponatremia. 10.Macrocytic anemia. 11.Acute deep venous thrombosis of the left distal popliteal vein, on IV heparin. 12.Acute alcohol withdrawal symptoms. 13.Right lower lobe pneumonia. 14.Leukemoid reaction. 15.Abnormal CT scan of the abdomen. RECOMMENDATIONS AND DISCUSSION: I recommend to continue current medications, continue with symptomatic treatment. Diuretics have been given by Dr. Menchaca. We will continue to monitor. The most recent chest x-ray was personally reviewed by me and showed bilateral pleural effusions, mostly in the lower lobes. A 2D echo was done which showed ejection fraction about 55% to 60%. This was done earlier in the course of the patient's illness. The overall prognosis is extremely guarded because of the multiple complex medical issues. Further recommendations to follow. The potassium was 3.2. I would also recommend ultrasound of the liver to rule out the possibility of any hepatic nodules for cirrhosis of the liver. Otherwise, hepatitis panel also will be ordered. COVID-19 is also suggested because the patient was in the hospital. Guarded prognosis. Further recommendations to follow. MMODL / IJN: [id number] /
[2020-02-27] MEDS: DEXTROSE 5% IN WATER 1,000 ML with SODIUM BICARB (1 MEQ/ML) 150 ML IV SCH (19:03)
--- NOTE | 2020-02-27 19:06 | US ---
EXAMINATION TYPE: US liver DATE OF EXAM: 02/27/2020 COMPARISON: CT 2019 CLINICAL HISTORY: bed side, cirrhosis liver. EXAM MEASUREMENTS: Liver Length: 16.1 cm Gallbladder Wall: 0.3 cm CBD: 0.4 cm Right Kidney: 10.1 x 4.4 x 4.7 cm Pancreas: visualized portions wnl, limited by overlying midline bowel gas Liver: heterogeneous, 1.2cm cyst right lobe Gallbladder: wnl Evidence for sonographic Traylor's sign: n/a CBD: visualized portions wnl, limited by overlying bowel gas Right Kidney: wnl Abdominal ascites seen in RUQ Right pleural effusion IMPRESSION: There is abdominal ascites. There is 1.2 cm cyst in the right lobe of the liver. No dilat ed ducts.
[2020-02-27] MEDS: TAMSULOSIN 0.4 MG CAP.ER.24H PO SCH (20:03)
[2020-02-27 23:55] LABS: Glucose,Whole Blood 167 mg/dL (75-99)
--- NOTE | 2020-02-28 00:03 | PN ---
PROGRESS NOTE DATE OF SERVICE: 02/27/2020 REASON FOR FOLLOWUP: The patient is currently afebrile. The patient is hemodynamically stable. The patient's FiO2 is currently at 35%. No significant purulent secretions through the ET tube or diarrhea reported by the nursing staff. PHYSICAL EXAMINATION: Blood pressure 127/64 with a pulse of 80, temperature 98. He is 97% on 55% FiO2. General description is a middle-aged male, intubated on the vent. Respiratory system: Unlabored breathing, decreased breath sounds in the base, with no wheeze. Heart S1, S2. Regular rate and rhythm. ABDOMEN: Soft. No tenderness. LAB: Hemoglobin 9.1, white count 6.7, BUN of 12, creatinine 0.92. Free fluid culture so far pending. DIAGNOSTIC IMPRESSION AND PLAN: Patient with acute respiratory failure which is multifactorial in this patient in the hospital status post low anterior resection, subsequently did have a cardiac arrest and possible aspiration pneumonia. Sputum culture is pending. Patient is covered with Zosyn, to continue. Adjust further based on the culture report. Continue supportive care. MMODL / IJN: [id number] /
[2020-02-28 00:18] LABS: Hepatitis A Antibody IgM Non-Reactive (Non-Reactive); Hepatitis B Core IgM Non-Reactive (Non-Reactive); Hepatitis B Surface Antigen Non-Reactive (Non-Reactive); Hepatitis C IgG Antibody Non-Reactive (Non-Reactive)
[2020-02-28] MEDS: POTASSIUM CHLORIDE 20 MEQ in WATER FOR INJECTION 1 100ML.BAG IVPB SCH ×2 (00:40→02:39)
[2020-02-28] MEDS: NOREPINEPHRINE 32 MG in SODIUM CHLORIDE 0.9% 218 ML IV SCH ×2 (00:50→15:05)
[2020-02-28 04:43] LABS: ABG Base Excess -5.7 mmol/L; ABG HCO3 20 mmol/L (21-25); ABG PCO2 33 mmHg (35-45); ABG PH 7.38 (7.35-7.45); ABG PO2 92 mmHg (83-108); ABG TCO2 21 mmol/L (19-24)
[2020-02-28 05:26] LABS: Allen Test Performed? no
[2020-02-28 06:40] LABS: Glucose,Whole Blood 135 mg/dL (75-99)
[2020-02-28] MEDS: INSULIN ASPART (NovoLOG) 100 UNIT/ML VIAL SQ SCH ×3 (06:50→17:35)
[2020-02-28 06:53] LABS: Basophils % (A) 0 %; Eosinophils # (A) 0.2 k/uL (0-0.7); Eosinophils % (A) 1 %; HCT 29.4 % (39.0-53.0); HGB 9.2 gm/dL (13.0-17.5); Hypochromasia Marked; Lymphocytes # (A) 1.2 k/uL (1.0-4.8); Lymphocytes % (A) 5 %; MCH 33.6 pg (25.0-35.0); MCHC 31.2 g/dL (31.0-37.0); MCV 107.6 fL (80.0-100.0); Macrocytosis Marked; Mean Platelet Volume 8.8; Monocytes # (A) 0.3 k/uL (0-1.0); Monocytes % (A) 1 %; Neutrophils # (A) 22.4 k/uL (1.3-7.7); Neutrophils % (A) 93 %; Platelet Count 355 k/uL (150-450); RBC 2.73 m/uL (4.30-5.90); RDW 15.2 % (11.5-15.5); WBC 24.2 k/uL (3.8-10.6)
[2020-02-28] MEDS: FERROUS SULFATE ORAL ELIXIR 300 MG/5 ML CUP PO SCH ×2 (07:10→17:35)
[2020-02-28] MEDS: PIPERACILLIN-TAZOBACTAM 3.375 GM in SODIUM CHLORIDE 0.9% 100 ML IVPB SCH ×2 (07:11→17:29)
[2020-02-28] MEDS: HYDROCORTISONE SUCCINATE 100 MG/2 ML VIAL IV SCH ×2 (07:11→17:30)
--- NOTE | 2020-02-28 07:16 | XR ---
EXAMINATION TYPE: XR chest 1V portable DATE OF EXAM: 02/28/2020 COMPARISON: 02/27/2020 HISTORY: SOB, Follow Up FINDINGS: Indwelling tubes and catheters are unchanged. Perihilar and basilar infiltrates as well as pleural effusions persist. Underlying atelectasis also s uspected. Improvement suggested. Stable appearance of the cardio-mediastinal structures at this time. Pleural effusion unchanged. IMPRESSION: 1. Interval improvement suggested. Clinical correlation and follow up until resolution is recommended .
[2020-02-28 07:38] LABS: Ionized Calcium 4.9 mg/dL (4.5-5.3)
[2020-02-28 08:19] LABS: ALT 27 U/L (4-49); AST 50 U/L (17-59); African American GFR (CKD) >90 (>60 ml/min/1.73 sqM); Albumin 1.7 g/dL (3.5-5.0); Alkaline Phosphatase 148 U/L (38-126); Anion Gap 2 mmol/L; Blood Urea Nitrogen 14 mg/dL (9-20); Calcium 7.2 mg/dL (8.4-10.2); Carbon Dioxide 22 mmol/L (22-30); Chloride 113 mmol/L (98-107); Glucose 127 mg/dL (74-99); Magnesium 1.9 mg/dL (1.6-2.3); Non-African American GFR(CKD) >90 (>60 ml/min/1.73 sqM); Phosphorus 3.8 mg/dL (2.5-4.5); Potassium 3.9 mmol/L (3.5-5.1); Sodium 137 mmol/L (137-145); Total Bilirubin 0.4 mg/dL (0.2-1.3); Total Protein 4.7 g/dL (6.3-8.2); Triglycerides 62 mg/dL (<150)
[2020-02-28] MEDS: FLUCONAZOLE IN NACL,ISO-OSM 100 MG in SALINE 1 50ML.BAG IVPB SCH (08:34)
[2020-02-28] MEDS: PANTOPRAZOLE 40 MG/10 ML VIAL IVP SCH ×2 (08:34→20:08)
[2020-02-28] MEDS: ENOXAPARIN 40 MG/0.4 ML SYRINGE SQ SCH (08:34)
[2020-02-28] MEDS: THIAMINE 100 MG/ML 2 ML VIAL IVP SCH (08:34)
[2020-02-28] MEDS: CHLORHEXIDINE GLUCONATE 15 ML CUP MUCOUS MEM SCH (08:34)
--- NOTE | 2020-02-28 10:56 | P.PN ---
Progress Note - Text Progress Note Date: 02/28/20 Patient remains on the ventilator in the ICU. He had approximate 5 L removed on his paracentesis yesterday. He's had very minimal output through his paracentesis site. His abdomen is much softer. On exam her vital signs remain stable. Patient's is on Levophed. Abdomen is softer. Incision is clean dry intact. Status post low anterior resection for diverticulitis. Severe ascites related to alcohol abuse and cirrhosis. Patient is restricted failure. He will continue receive supportive care.
[2020-02-28 11:57] LABS: Glucose,Whole Blood 111 mg/dL (75-99)
[2020-02-28] MEDS ORDERED: MAGNESIUM SULFATE IV SCH ×12 (13:00)
[2020-02-28] MEDS ORDERED: POTASSIUM ACETATE IV SCH ×12 (13:00)
[2020-02-28] MEDS ORDERED: SODIUM ACETATE IV SCH ×12 (13:00)
[2020-02-28] MEDS ORDERED: [UNRECOGNIZED DRUG - OTHER] IV SCH ×12 (13:00)
--- NOTE | 2020-02-28 15:54 | P.PN ---
Subjective Progress Note Date: 02/28/20 Principal diagnosis: Acute hypoxic respiratory failure, massive ascites, liver cirrhosis, possible abdominal sepsis. This is a 64-year-old white male patient status post low anterior resection for strictures and diverticular disease, and this is postoperative day #6. Following his surgery on February 08 patient had a thrombus discomfort within the distal popliteal vein in his left leg, on the liver night patient had a CT angiogram of the chest which was a suboptimal study and did not reveal any large saddle all of central pulmonary emboli. The computed tomography scan showed evidence of small bilateral pleural effusions and multifocal groundglass opacities that could relate to pulmonary edema and/or pneumonia. His chest x- ray from February 11 showed bilateral infiltrates that could be consistent with pneumonia or heart failure. VQ scan showed indeterminate probability for pulmonary embolism. Patient has been confused, apparently he does have history of chronic EtOH, but it has been 60 since his admission, he remains very confused, he is on 3 L of oxygen and the pulse ox of 95%, he was started on heparin infusion for DVT in his left leg. We did not think there was a pulmonary embolism based on his workup. His brain CT showed no acute intracranial abnormality. In addition there is a possibility of GI bleeding as the patient has been passing some dark stools. Is not appear to be in any respiratory distress, he remains lethargic, confused. Neurology is following, EEGs in progress. Dr. Araujo is planning on EGD tomorrow for evaluation of black stools. On 02/14/2020 patient seen in follow-up on general medical surgical floor his heparin drip is off, his 0.9 normal saline running at 75 ML per hour, appears to be more awake on today's exam, although still confused, she is only oriented to percent, no agitation. No signs of respiratory difficulty, he is on 3 L of oxygen pulse ox is 95%, hemodynamically stable, his abdomen is slightly tender postsurgery, his incision covered with dressing, his been afebrile, breathing is nonlabored, lung sounds reveal a few basilar crackles, no rhonchi or wheezing. Surgery is planned and on EGD today, neurology is following, EEG revealed background slowing of moderate degree suggestive of generalized cerebral dysfunction related to toxic metabolic encephalopathy. Today's hemoglobin is 8.6, had one bowel movement this morning. On 02/15/2020 patient seen in follow-up on general medical surgical floor, patient had EGD done yesterday which did not reveal any active bleeding, patient was restarted on heparin infusion for evidence of DVT in his lower extremity, no worsening dyspnea, patient is still on and off lethargic, but appears to be in no acute distress. He is on 3 L of oxygen pulse ox of 95%, his been afebrile, completed chest pain. No hemoptysis. Today's hemoglobin is 9.0. On 02/26/2020 we were reconsulted in view of significant clinical deterioration last night, rapid response team was called, alva gama was activated at 0243 in the morning on 02/26/2020. Apparently patient was having ongoing abdominal pain for the past few days prior to the event, he was believed to have ileus. His abdominal CT of abdomen and pelvis was done on 02/19/2020 showing postoperative changes in the sigmoid colon, proximal to this level there was abnormal thickening of the right colon, some thickened small bowel loops were also present, no is no evidence of free air, there was evidence of increased amount of ascites. There was interval development of bilateral pleural effusions and associated atelectasis. Past few days patient also developed a low urine output urology also consulted on the case for difficult Lemus insertion and possible urinary retention. Yesterday on 02/25/2020 ultrasound abdomen showed moderate ascites in the right flank. His abdomen continued to be more distended and painful, patient was eating some oral intake, however his blood pressures were running on the lower side, his urine output continued to be low, there was paracentesis planned a possibility of ascites. Last night patient developed hypothermia, and hypotension. Patient became unresponsive, and there was no palpable pulse. CPR was started and immediately patient became responsive, CPR was stopped, patient was emergently intubated placed on mechanical ventilator and transferred to the intensive care unit. ID service has been following, patient's antibiotic coverage includes daptomycin. This morning he seen in the intensive care unit, sedated, intubated, on assist-control mode of ventilation, with a rate of 16, tidal planning is 500, FiO2 of 50%, and PEEP of 5. This was blood gases showed pO2 of 88, pCO2 of 29, and pH is 7.34. Patient is hypotensive, he is requiring levo fed at 0.43 mics per kilo per minute over 25 mics per minute, Diprivan and is at 40 mics per kilo per minute, patient has received fluid resuscitation, yesterday she had received 2 L of fluid from the surgical team earlier in the day, and he received additional 2 L bolus after his cardiac pulmonary arrest early this morning, his maintenance IV fluids are currently infusing at a rate of 75 ML per hour. Patient kidney to be hypotensive, we gave him an additional liter fluid bolus today, and she will be started on a vasopressin infusion for refractory hypotension. Blood cultures have been sent, pending at this time. Prior blood cultures and sputum culture. Patient's abdomen remains very tense, distended, firm, with the area of redness and discoloration, and induration near the mid abdominal surgical incision. Patient has a lot of generalized swelling, he is weeping from the catheter insertion sites. He had right femoral central line catheter placed by Dr. Jarrell at the bedside and a right radial art line placed for close hemodynamic monitoring. This morning's lab work has been reviewed showing squamous cell count of 21.8, hemoglobin of 8.9, sodium of 137, potassium is 4.1, chloride is 119, CO2 is 10, BUN is 10 and creatinine 0.64, patient was given 2 A of sodium bicarbonate. Reevaluated today on 02/27/20, patient is in the ICU, intubated and mechanically ventilated, his assist-control rate is 16 volume is 500 FiO2 is still on the percent, PEEP is 5. ABG today showed a pO2 of 104 pCO2 of 29 pH of 7.34 hence recommended that the patient gets the PEEP up to 8, and I cut down his FiO2 to 80%. Patient remains on norepinephrine at 46 mcg/m, he is also on bicarb drip, vasopressin was added today at 0.03, propofol is at 50 mcg/kg/m. Patient also remains on fluconazole and on daptomycin, his abdominal paracentesis was not therapeutic, it was mostly diagnostic, and so far the fluid does not seem to be diagnostic. Continues to have slight leakage from the site of his paracentesis, and the patient put out almost 3 L out in 24 hours from the same site where the paracentesis was done. Patient developed bilateral pleural effusions, however the ultrasound did not show enough fluid to perform a thoracentesis safely. Hence will hold on thoracentesis. Poor quality ultrasound pictures noted, cannot trust to perform safe thoracentesis on this patient. Hence we will hold, patient had repeat paracentesis by interventional radiology, and over 4.7 L of fluids were removed from the peritoneal cavity, and that will definitely improved the pleural effusions which are mostly related to his ascites. Reevaluated today on 02/28/20, patient remains intubated and mechanically ventilated, his ventilator settings are assist control rate of 16 volume is 500 FiO2 is 35%, PEEP at 8. ABG showed a pO2 of 92 pCO2 of 33 pH of 7.38. Patient remains on propofol at 50 mcg/kg/m, he is on bicarb but I cut it down to 25 ML per hour drip. On norepinephrine at 0.8 mcg/kg/m, and vasopressin at 0.03 units per minutes. Patient is also on TPN. Urine output is ranging between 50-100 m L/h. Patient had a total of 4.7 L drained from his peritoneal cavity/paracentesis, and at least 3 L drip spontaneously from the site of the paracentesis into a collecting bag. Fluid so far is nondiagnostic, does not seem to be infected, it is basically transudate of fluid. Patient did receive yesterday albumin and Lasix, not a significant response was noted with the Lasix. But his urine output improved more so after the paracentesis, and I suspect that the patient may have had abdominal compartment syndrome improved with paracentesis. Patient remains on broad-spectrum antibiotics for pres umptive abdominal sepsis, WBC count is 24.2 hemoglobin is 9.2. Electrolytes are relatively normal. Chest x-ray showed small bilateral pleural effusions, improved compared to the chest x-ray, and I believe that's mostly because the patient had significant amount of fluid drained with the paracentesis done yesterday. Ultrasound of the liver yesterday showed liver length of 16.1, it was heterogeneous, and there was evidence of abdominal ascites in the right upper quadrant with right pleural effusion. Objective - Vital Signs Vital signs: Vital Signs Temp 37.2 F L 02/28/20 09:00 Pulse 113 H 02/28/20 09:30 Resp 16 02/28/20 09:30 BP 125/73 02/28/20 07:30 Pulse Ox 96 02/28/20 09:30 Intake & Output 02/27/20 02/28/20 02/28/20 18:59 06:59 18:59 Intake Total 2029.138 1334.575 368.321 Output Total 6215 1000 50 Balance -4185.862 334.575 318.321 Weight 72.2 kg 69.9 kg 69.9 kg Intake: IV 880 876 73 Dextrose 5% in Water 1, 500 600 50 000 ml @ 50 mls/hr IV . Q23H JOANA with Sodium Bicarb (1 Meq/ml) 150 ml Rx#:[id number] Fluconazole in NaCl,Iso- 50 Osm 100 mg In Saline 1 50ml.bag @ 50 mls/hr IVPB DAILY [facility] Rx#:[id number] Normal Saline Carrier 200 240 20 Piperacillin-Tazobactam 3 100 .375 gm In Sodium Chloride 0.9% 100 ml @ 25 mls/hr IVPB Q8HR [facility] Rx# :[id number] Pressure bag 30 36 3 Intake, IV Titration 1149.138 458.575 295.321 Amount Albumin Human 5% 250 ml 250 In Empty Bag 1 bag @ 250 mls/hr IVPB ONCE [facility] Rx#: [id number] Magnesium Sulfate-D5w Pmx 200 1 gm In Dextrose/Water 1 100ml.bag @ 100 mls/hr IVPB Q1H [facility] Rx#: [id number] Norepinephrine 32 mg In 274.188 156.871 198.425 Sodium Chloride 0.9% 218 ml @ 0.05 MCG/KG/MIN 1. 359 mls/hr IV .Q24H [facility] Rx#:[id number] Potassium Chloride 20 meq 200 In Water For Injection 1 100ml.bag @ 50 mls/hr IVPB Q2H [facility] Rx#: [id number] Sodium Acetate 30 meq 80 80 20 Potassium Acetate 40 meq Magnesium Sulfate gm 2 gm Calcium Gluconate 1 gm Mvi, Adult No.4 with Vit K 10 ml Trace (Conc-1Ml/ Dose) 1 ml In Amino Acid 5%-D15w 1,000 ml @ 20 mls /hr IV .Q24H [facility] Rx#: [id number] propofoL 1,000 mg In 144.95 221.704 76.896 Empty Bag 1 bag @ Titrate IV .Q0M [facility] Rx#: [id number] Output: Drainage 5195 Left Lower Lateral 5195 Abdomen Paracentesis Site Urine 1020 1000 50 Other: Voiding Method Indwelling Catheter Indwelling Catheter Indwelling Catheter ABP, PAP, CO, CI - Last Documented Arterial Blood Pressure 108/58 - Exam GENERAL EXAM: Intubated sedated 64-year-old white male, intubated and mechanically ventilated. HEAD: Normocephalic/atraumatic. EYES: Normal reaction of pupils, equal size. Conjunctiva pink, sclera white. NOSE: Clear with pink turbinates. THROAT: No erythema or exudates. NECK: No masses, no JVD, no thyroid enlargement, no adenopathy. CHEST: No chest wall deformity. Symmetrical expansion. LUNGS: Equal air entry , no rhonchi crackles or wheezes. CVS: Regular rate and rhythm, normal S1 and S2, no gallops, no murmurs, no rubs ABDOMEN: Soft and less distended today., with postsurgical tenderness, less induration is noted in the periumbilical area. mid abdominal incision with sta ples intact, EXTREMITIES: No clubbing, 1+ lower extremity edema, patient has a weeping edema with the drainage from the catheter insertion sites no cyanosis, 2+ pulses and upper and lower extremities. MUSCULOSKELETAL: Could not be assessed. Patient is sedated. SPINE: No scoliosis or deformity SKIN: No rashes CENTRAL NERVOUS SYSTEM: Unable to assess, patient is sedated and intubated. No focal deficits, tone is normal in all 4 extremities. - Labs CBC & Chem 7: 02/28/20 06:30 02/28/20 06:30 Labs: Abnormal Lab Results - Last 24 Hours (Table) 02/27/20 02/27/20 02/28/20 Range/Units 17:19 23:53 04:42 WBC (3.8-10.6) k/uL RBC (4.30-5.90) m/uL Hgb (13.0-17.5) gm/dL Hct (39.0-53.0) % MCV (80.0-100.0) fL Neutrophils # (1.3-7.7) k/uL Macrocytosis ABG pCO2 33 L (35-45) mmHg ABG HCO3 20 L (21-25) mmol/L ABG O2 Saturation 98.0 H (94-97) % Chloride (98-107) mmol/L Glucose (74-99) mg/dL POC Glucose (mg/dL) 188 H 167 H (75-99) mg/dL Calcium (8.4-10.2) mg/dL Alkaline Phosphatase (38-126) U/L Total Protein (6.3-8.2) g/dL Albumin (3.5-5.0) g/dL 02/28/20 02/28/20 02/28/20 Range/Units 06:30 06:30 06:37 WBC 24.2 H (3.8-10.6) k/uL RBC 2.73 L (4.30-5.90) m/uL Hgb 9.2 L (13.0-17.5) gm/dL Hct 29.4 L (39.0-53.0) % MCV 107.6 H (80.0-100.0) fL Neutrophils # 22.4 H (1.3-7.7) k/uL Macrocytosis Marked A ABG pCO2 (35-45) mmHg ABG HCO3 (21-25) mmol/L ABG O2 Saturation (94-97) % Chloride 113 H (98-107) mmol/L Glucose 127 H (74-99) mg/dL POC Glucose (mg/dL) 135 H (75-99) mg/dL Calcium 7.2 L (8.4-10.2) mg/dL Alkaline Phosphatase 148 H (38-126) U/L Total Protein 4.7 L (6.3-8.2) g/dL Albumin 1.7 L (3.5-5.0) g/dL 02/28/20 Range/Units 11:55 WBC (3.8-10.6) k/uL RBC (4.30-5.90) m/uL Hgb (13.0-17.5) gm/dL Hct (39.0-53.0) % MCV (80.0-100.0) fL Neutrophils # (1.3-7.7) k/uL Macrocytosis ABG pCO2 (35-45) mmHg ABG HCO3 (21-25) mmol/L ABG O2 Saturation (94-97) % Chloride (98-107) mmol/L Glucose (74-99) mg/dL POC Glucose (mg/dL) 111 H (75-99) mg/dL Calcium (8.4-10.2) mg/dL Alkaline Phosphatase (38-126) U/L Total Protein (6.3-8.2) g/dL Albumin (3.5-5.0) g/dL Microbiology - Last 24 Hours (Table) 02/26/20 10:25 Blood Culture - Preliminary Blood No Growth after 48 hours 02/26/20 10:21 Blood Culture - Preliminary Blood No Growth after 48 hours 02/26/20 13:00 Gram Stain - Preliminary Sputum Sputum Culture - Preliminary Pita albicans 02/26/20 03:10 Gram Stain - Final Sputum Sputum Culture - Final Pita albicans 02/25/20 23:06 Blood Culture - Preliminary Blood No Growth after 48 hours 02/26/20 16:15 Gram Stain - Preliminary Ascites Fluid Body Fluid Culture - Preliminary Assessment and Plan Assessment: #1. Acute hypoxic respiratory failure related to septic shock, with the suspicion of intra-abdominal source rule out possibility of intra-abdominal abscess #2. Acute cardiac pulmonary arrest on 02/26/2020 related to septic shock, patient required a brief CPR, was emergently intubated and fluid resuscitated, remains on high amount of vasopressor support currently in the form of norepinephrine and vasopressin #3. Increased bibasilar opacities and new small bilateral pleural effusions on the chest x-ray, most likely fluid from the ascites fluid into the pleural space. #4. Abdominal pain and distention #5. Massive ascites secondary to liver cirrhosis #6. Non-anion gap metabolic acidosis related to septic shock, and has received IV fluids and bicarbonate infusion #7. Elevated d-dimer, nonspecific, doubt possibility of pulmonary embolism. CTA chest was suboptimal but did not reveal any evidence of central pulmonary embolism, VQ scan showed intermediate probability for pulmonary embolism, patient was found to have a new left leg DVT, was on Eliquis which we will place on hold right now in view of acute decompensation, and possible need for surgical intervention in view of septic shock, with a suspicion of intra- abdominal source #8 Diverticulitis, status post lower anterior resection, takedown of splenic flexure and partial omentectomy #9. Alcohol abuse with alcohol withdrawal #11. Recent history dark black stools the possibility of upper GI bleeding #12. Altered mental status, related to metabolic encephalopathy, neurology is following #13. History of diverticular disease #14. History of EtOH abuse #15 status post large volume paracentesis with 4.7 L removed from the peritoneal cavity. Recommendation: Continue present supportive care measures. Continue ventilatory support. Continue hemodynamic support. Presently on norepinephrine and vasopressin, however working on titrating the norepinephrine down, and maintain vasopressin Continue warming blankets for hypothermia. Continue Solu-Cortef. Continue antibiotics and antifungal therapy. Hold on diuretics and albumin for now. Prognosis remains extremely poor and guarded. Critical care time is over 30 minutes Time with Patient: Greater than 30
[2020-02-28 16:48] LABS: Glucose,Whole Blood 164 mg/dL (75-99)
[2020-02-28] MEDS: DEXTROSE 5% IN WATER 1,000 ML with SODIUM BICARB (1 MEQ/ML) 150 ML IV SCH (17:30)
[2020-02-28] MEDS: TAMSULOSIN 0.4 MG CAP.ER.24H PO SCH (20:08)
[2020-02-28] MEDS: SPIRONOLACTONE 25 MG TAB PO SCH (20:08)
--- NOTE | 2020-02-28 22:54 | PN ---
PROGRESS NOTE I am covering for Dr. Dennis. DATE OF SERVICE: 02/28/2020 This 64-year-old gentleman who was admitted with low anterior resection for an acute diverticulitis, had multiple medical issues, including pulmonary edema and as well as possible pneumonia. Patient also had pleural effusion. Patient had bilateral thoracocentesis. Patient had ascites which was tapped of 8 L clear fluid. The results are pending at this time. The liver ultrasound was also done which showed a 1.2 cm cyst. Otherwise heterogeneous liver. The patient has received Lasix, but currently on a single dose basis. The patient is started on hydrocortisone also by Dr. Menchaca. The patient remains to be on broad-spectrum IV antibiotics also. The sputum cultures showed Pita albicans. The patient is on Diflucan. The patient also on daptomycin. Past medical history reviewed. REVIEW OF SYSTEMS: Could not be taken. CURRENT MEDICATIONS: Include daptomycin, Lovenox, iron sulfate, fluconazole, Reglan, magnesium, Protonix and Zosyn. PHYSICAL EXAMINATION: Patient is mechanically ventilated and sedated. Vent settings are noted. Pulse 80. Blood pressure 120/72, respiration 15, temp is normal. Pulse ox 97% on 35% FiO2. HEENT: Conjunctivae normal. Oral mucosa moist. Neck is no JVD. No carotid bruit. No lymph node enlargement. Cardiovascular: S1, S2 muffled. Respirations: Breath sounds diminished in the bases. Bilateral scattered rhonchi and crackles. ABDOMEN: Soft, nontender. NERVOUS SYSTEM: Patient is sedated. LABS: WBC 24.2, hemoglobin 9.2. Marked macrocytosis present, otherwise glucose 135, albumin is 1.7, total protein is 4.7. ASSESSMENT: 1. Status post low anterior resection for diverticulitis. 2. Acute hypoxic respiratory failure secondary from abdominal sepsis and severe sepsis and hypotension and septic shock. 3. Ascites possibly secondary to cirrhosis of the liver. 4. Status post abdominal paracentesis. 5. Bilateral pleural effusion status post thoracocentesis. 6. Postoperative ileus. 7. History of nicotine dependence. 8. History of chronic obstructive pulmonary disease. 9. History of alcoholic hepatitis. 10.Mild hyponatremia. 11.Microcytic anemia. 12.Hypoalbuminemia with mild protein calorie malnutrition. 13.Acute DVT of the left distal given IV heparin. 14.Acute alcohol withdrawal symptoms present on admission. 15.Right lower lobe pneumonia. 16.Leukemoid reaction. 17.Abnormal CT scan of the abdomen. RECOMMENDATIONS AND DISCUSSION: I recommend to continue current management and symptomatic treatment. Continue with diuretics, add Aldactone to the current regimen and continue to monitor. We will await further fluid reports. Also recommend creatinine estimation of the fluid also. Otherwise, we will continue to monitor along with Dr. Menchaca and Dr. Lee, who is the surgeon and continue to monitor. Further recommendations to follow. Monitor Accu- Cheks a.c. and at bedtime. MMODL / IJN: [id number] / MTDD
[2020-02-29 00:02] LABS: Glucose,Whole Blood 143 mg/dL (75-99)
[2020-02-29] MEDS: HYDROCORTISONE SUCCINATE 100 MG/2 ML VIAL IV SCH ×3 (00:14→18:18)
[2020-02-29] MEDS: PIPERACILLIN-TAZOBACTAM 3.375 GM in SODIUM CHLORIDE 0.9% 100 ML IVPB SCH ×3 (00:14→18:19)
[2020-02-29] MEDS: SODIUM CHLORIDE 0.9% 150 ML with VASOPRESSIN 60 UNIT IV SCH ×4 (00:14→09:27)
[2020-02-29] MEDS: DAPTOmycin 350 MG in SODIUM CHLORIDE 0.9% 50 ML IVPB SCH (00:15)
[2020-02-29] MEDS: INSULIN ASPART (NovoLOG) 100 UNIT/ML VIAL SQ SCH ×4 (00:16→18:18)
[2020-02-29 05:39] LABS: Basophils % (A) 0 %; Eosinophils % (A) 0 %; HGB 9.3 gm/dL (13.0-17.5); Hypochromasia Moderate; Lymphocytes # (A) 1.2 k/uL (1.0-4.8); Lymphocytes % (A) 7 %; MCHC 33.3 g/dL (31.0-37.0); Macrocytosis Moderate; Mean Platelet Volume 9.6; Monocytes # (A) 0.6 k/uL (0-1.0); Monocytes % (A) 3 %; Neutrophils # (A) 16.2 k/uL (1.3-7.7); Neutrophils % (A) 89 %; Platelet Count 295 k/uL (150-450); RBC 2.67 m/uL (4.30-5.90); WBC 18.3 k/uL (3.8-10.6)
--- NOTE | 2020-02-29 05:45 | PN ---
PROGRESS NOTE DATE OF SERVICE: 02/28/2020 REASON FOR FOLLOWUP: Sepsis with pneumonia and abdominal wall cellulitis. INTERVAL HISTORY: The patient is currently afebrile. The patient is still on pressor support, though trending down. The patient's FiO2 is currently stable at 35%. No significant purulent secretion through the ET or diarrhea reported by nursing staff. PHYSICAL EXAMINATION: Blood pressure 115/80 with a pulse of 105, temperature 98.5. He is 95% on 35% FiO2. General description is a middle-aged male lying in bed in no distress. RESPIRATORY SYSTEM: Unlabored breathing, decreased breath sounds at the bases. No wheeze. HEART: S1, S2. Regular rate and rhythm. ABDOMEN: Soft, no tenderness. No guarding or rigidity. LABS: White count 24.2 with a BUN of 14, creatinine 0.88. Sputum with Pita albicans. Body fluid culture so far negative. Blood culture negative. DIAGNOSTIC IMPRESSION AND PLAN: Patient with elevated white count which is multifactorial in this patient did have a cardiac arrest and recent low anterior resection and incisional hernia with ascites though so far ascitic fluid culture has been negative and blood culture negative. The patient is currently covered with Zosyn, daptomycin, Diflucan to continue and monitor clinical course closely. MMODL / IJN: [id number] /
[2020-02-29 05:52] LABS: Albumin 1.8 g/dL (3.5-5.0); Calcium 7.8 mg/dL (8.4-10.2); Magnesium 2.3 mg/dL (1.6-2.3); Phosphorus 3.6 mg/dL (2.5-4.5); Potassium 3.8 mmol/L (3.5-5.1); Total Bilirubin 0.3 mg/dL (0.2-1.3)
[2020-02-29] MEDS: DEXTROSE 5% IN WATER 1,000 ML with SODIUM BICARB (1 MEQ/ML) 150 ML IV SCH (06:02)
[2020-02-29] MEDS: NOREPINEPHRINE 32 MG in SODIUM CHLORIDE 0.9% 218 ML IV SCH (06:03)
[2020-02-29 06:10] LABS: ABG Base Excess -1.2 mmol/L; ABG HCO3 23 mmol/L (21-25); ABG Oxygen Saturation 97.5 % (94-97); ABG PCO2 35 mmHg (35-45); ABG PH 7.43 (7.35-7.45); ABG PO2 84 mmHg (83-108); ABG TCO2 24 mmol/L (19-24); Allen Test Performed? Yes
[2020-02-29] MEDS ORDERED: POTASSIUM BICARBONATE/CIT AC 20 MEQ TABLET.EFF NG-TUBE SCH (06:59)
[2020-02-29] MEDS: FERROUS SULFATE ORAL ELIXIR 300 MG/5 ML CUP PO SCH ×2 (07:01→18:18)
[2020-02-29] MEDS ORDERED: FUROSEMIDE 10 MG/ML 10 ML VIAL IV STA (08:37)
[2020-02-29] MEDS ORDERED: FUROSEMIDE 20 MG TAB PO SCH (09:00)
[2020-02-29] MEDS: FLUCONAZOLE IN NACL,ISO-OSM 100 MG in SALINE 1 50ML.BAG IVPB SCH (09:26)
[2020-02-29] MEDS: SPIRONOLACTONE 25 MG TAB PO SCH ×2 (09:26→21:59)
[2020-02-29] MEDS: ENOXAPARIN 40 MG/0.4 ML SYRINGE SQ SCH (09:26)
[2020-02-29] MEDS: THIAMINE 100 MG/ML 2 ML VIAL IVP SCH (09:27)
[2020-02-29] MEDS: PANTOPRAZOLE 40 MG/10 ML VIAL IVP SCH ×2 (09:27→21:59)
--- NOTE | 2020-02-29 10:41 | XR ---
EXAMINATION TYPE: XR chest 1V portable DATE OF EXAM: 02/29/2020 CLINICAL HISTORY: followup. TECHNIQUE: Portable semiupright view of the chest. COMPARISON: 02/28/2020 chest radiograph FINDINGS: Endotracheal tube distal tip midway between the clavicular heads and eber. Enteric tube distal tip and side-port over the projected area of the stomach. The cardiomediastinal silhouette is within normal limits for size. Unchanged small bilateral pleural effusions, right greater than left. No visualized pneumothorax, although there is nonvisualization of the superior aspect of the left sera g apex on the image. Chronic right-sided rib fracture deformities. IMPRESSION: Unchanged small bilateral pleural effusions, right greater than left.
--- NOTE | 2020-02-29 12:02 | P.PN ---
Progress Note - Text Progress Note Date: 02/29/20 Patient remains intubated on the ventilator. He has been hemodynamically stable. He is off vasopressor. His levo fat is been decreasing. On exam vital signs appear stable. Abdomen is softer. Status post therapeutic paracentesis. Patient will continue receive supportive care.
[2020-02-29 12:09] LABS: Glucose,Whole Blood 133 mg/dL (75-99)
[2020-02-29] MEDS: ALBUMIN HUMAN 25% 50 ML in EMPTY BAG 1 BAG IVPB SCH ×2 (13:16→15:30)
--- NOTE | 2020-02-29 15:43 | PN ---
PROGRESS NOTE I am covering for Dr. Dennis. DATE OF SERVICE: 02/29/2020 This 64-year-old gentleman who had low anterior resection also had acute hypoxic respiratory failure. The patient also has significant ascites and bilateral pleural effusions. The etiology of the ascites could very well be chronic liver disease and cirrhosis of the liver. The full diagnosis and evaluation are pending at this time. The patient also had severe hypoalbuminemia. Albumin infusion has been given. Past medical history reviewed. Review of systems could not be taken; the patient is on mechanical ventilation. CURRENT MEDICATIONS: Reviewed. They include daptomycin, Lovenox, fluconazole, Solu-Cortef, replacement protocol, norepinephrine, Zosyn. PHYSICAL EXAMINATION: Patient is mechanically ventilated and sedated. Pulse 92, blood pressure 120/73, respirations 16, temperature 98.2, pulse ox 96% on mechanical ventilation. Vent settings are noted. FiO2 is 35%. HEENT: Conjunctivae normal. NECK: No jugular venous distention. CARDIOVASCULAR SYSTEM: S1, S2 muffled. RESPIRATORY SYSTEM: Breath sounds diminished at the bases. Scattered rhonchi and crackles. ABDOMEN: Soft. Status post surgery. LEGS: No edema. No swelling. NERVOUS SYSTEM: No focal deficit. LABS: WBC 18.2, hemoglobin 9.3 sodium 137, potassium 3.8, albumin is 1.8. ASSESSMENT: 1. Status post low anterior resection for diverticulitis. 2. Acute hypoxic respiratory failure secondary from abdominal sepsis and severe sepsis and hypotension and septic shock. 3. Ascites, possibly secondary to cirrhosis of the liver. 4. Status post abdominal paracentesis. 5. Bilateral pleural effusions, status post thoracocentesis. 6. Postoperative ileus. 7. History of nicotine dependence. 8. Chronic obstructive pulmonary disease. 9. History of alcoholic hepatitis. 10.Mild hyponatremia. 11.Microcytic anemia. 12.Hypoalbuminemia with mild protein-calorie malnutrition. 13.Acute deep venous thrombosis of the left distal popliteal vein, on IV heparin. 14.Acute alcohol withdrawal symptoms, present on admission. 15.Right lower lobe pneumonia. 16.Leukemoid reaction. 17.Abnormal CT scan of the abdomen. RECOMMENDATIONS AND DISCUSSION: I recommend to continue current medications, continue with symptomatic treatment. Continue with diuretics. Dr. Menchaca has given IV Lasix today. We will continue to monitor. Monitor fluid/electrolyte balance closely. Otherwise, the patient is still on positive balance, according to the fluid chart. Hopefully with Aldactone and Lasix the patient could be diuresed a little more. Continue the rest of the medications. Further recommendations to follow. MMODL / IJN: [id number] /
--- NOTE | 2020-02-29 16:27 | P.PN ---
Subjective Progress Note Date: 02/29/20 Principal diagnosis: Intermediate probability VQ scan, rule out possibility of pulmonary embolism This is a 64-year-old white male patient status post low anterior resection for strictures and diverticular disease, and this is postoperative day #6. Following his surgery on February 08 patient had a thrombus discomfort within the distal popliteal vein in his left leg, on the liver night patient had a CT angiogram of the chest which was a suboptimal study and did not reveal any large saddle all of central pulmonary emboli. The computed tomography scan showed evidence of small bilateral pleural effusions and multifocal groundglass opacities that could relate to pulmonary edema and/or pneumonia. His chest x- ray from February 11 showed bilateral infiltrates that could be consistent with pneumonia or heart failure. VQ scan showed indeterminate probability for pulmonary embolism. Patient has been confused, apparently he does have history of chronic EtOH, but it has been 60 since his admission, he remains very confused, he is on 3 L of oxygen and the pulse ox of 95%, he was started on heparin infusion for DVT in his left leg. We did not think there was a pulmonar y embolism based on his workup. His brain CT showed no acute intracranial abnormality. In addition there is a possibility of GI bleeding as the patient has been passing some dark stools. Is not appear to be in any respiratory distress, he remains lethargic, confused. Neurology is following, EEGs in progress. Dr. Araujo is planning on EGD tomorrow for evaluation of black stools. On 02/14/2020 patient seen in follow-up on general medical surgical floor his heparin drip is off, his 0.9 normal saline running at 75 ML per hour, appears to be more awake on today's exam, although still confused, she is only oriented to percent, no agitation. No signs of respiratory difficulty, he is on 3 L of oxygen pulse ox is 95%, hemodynamically stable, his abdomen is slightly tender postsurgery, his incision covered with dressing, his been afebrile, breathing is nonlabored, lung sounds reveal a few basilar crackles, no rhonchi or wheezing. Surgery is planned and on EGD today, neurology is following, EEG revealed background slowing of moderate degree suggestive of generalized cerebral dysfunction related to toxic metabolic encephalopathy. Today's hemoglobin is 8.6, had one bowel movement this morning. On 02/15/2020 patient seen in follow-up on general medical surgical floor, patient had EGD done yesterday which did not reveal any active bleeding, patient was restarted on heparin infusion for evidence of DVT in his lower extremity, no worsening dyspnea, patient is still on and off lethargic, but appears to be in no acute distress. He is on 3 L of oxygen pulse ox of 95%, his been afebrile, completed chest pain. No hemoptysis. Today's hemoglobin is 9.0. The patient is seen today 02/16/2020 in follow-up on the regular medical floor. He was found to have a left lower extremity DVT. He is currently on Xarelto. He is maintaining good O2 saturation in the 90s on room air. He is afebrile. Hemodynamically stable. NicoDerm patch in place. Epidural for pain control. On 02/26/2020 we were reconsulted in view of significant clinical deterioration last night, rapid response team was called, alva gama was activated at 0243 in the morning on 02/26/2020. Apparently patient was having ongoing abdominal pain for the past few days prior to the event, he was believed to have ileus. His abdominal CT of abdomen and pelvis was done on 02/19/2020 showing postoperative changes in the sigmoid colon, proximal to this level there was abnormal thickening of the right colon, some thickened small bowel loops were also present, no is no evidence of free air, there was evidence of increased amount of ascites. There was interval development of bilateral pleural effusions and associated atelectasis. Past few days patient also developed a low urine output urology also consulted on the case for difficult Lemus insertion and possible urinary retention. Yesterday on 02/25/2020 ultrasound abdomen showed moderate ascites in the right flank. His abdomen continued to be more distended and painful, patient was eating some oral intake, however his blood pressures were running on the lower side, his urine output continued to be low, there was paracentesis planned a possibility of ascites. Last night patient developed hypothermia, and hypotension. Patient became unresponsive, and there was no palpable pulse. CPR was started and immediately patient became responsive, CPR was stopped, patient was emergently intubated placed on mechanical ventilator and transferred to the intensive care unit. ID service has been following, patient's antibiotic coverage includes daptomycin. This morning he seen in the intensive care unit, sedated, intubated, on assist-control mode of ventilation, with a rate of 16, tidal planning is 500, FiO2 of 50%, and PEEP of 5. This was blood gases showed pO2 of 88, pCO2 of 29, and pH is 7.34. Patient is hypotensive, he is requiring levo fed at 0.43 mics per kilo per minute over 25 mics per minute, Diprivan and is at 40 mics per kilo per minute, patient has received fluid resuscitation, yesterday she had received 2 L of fluid from the surgical team earlier in the day, and he received additional 2 L bolus after his cardiac pulmonary arrest early this morning, his maintenance IV fluids are currently infusing at a rate of 75 ML per hour. Patient kidney to be hypotensive, we gave him an additional liter fluid bolus today, and she will be started on a vasopressin infusion for refractory hypotension. Blood cultures have been sent, pending at this time. Prior blood cultures and sputum culture. Patient's abdomen remains very tense, distended, firm, with the area of redness and discoloration, and induration near the mid abdominal surgical incision. Patient has a lot of generalized swelling, he is weeping from the catheter insertion sites. He had right femoral central line catheter placed by Dr. Jarrell at the bedside and a right radial art line placed for close hemodynamic monitoring. This morning's lab work has been reviewed showing squamous cell count of 21.8, hemoglobin of 8.9, sodium of 137, potassium is 4.1, chloride is 119, CO2 is 10, BUN is 10 and creatinine 0.64, patient was given 2 A of sodium bicarbonate. Reevaluated today on 02/27/20, patient is in the ICU, intubated and mechanically ventilated, his assist-control rate is 16 volume is 500 FiO2 is still on the percent, PEEP is 5. ABG today showed a pO2 of 104 pCO2 of 29 pH of 7.34 hence recommended that the patient gets the PEEP up to 8, and I cut down his FiO2 to 80%. Patient remains on norepinephrine at 46 mcg/m, he is also on bicarb drip, vasopressin was added today at 0.03, propofol is at 50 mcg/kg/m. Patient also remains on fluconazole and on daptomycin, his abdominal paracentesis was not therapeutic, it was mostly diagnostic, and so far the fluid does not seem to be diagnostic. Continues to have slight leakage from the site of his paracentesis, and the patient put out almost 3 L out in 24 hours from the same site where the paracentesis was done. Patient developed bilateral pleural effusions, however the ultrasound did not show enough fluid to perform a thoracentesis safely. Hence will hold on thoracentesis. Poor quality ultrasound pictures noted, cannot trust to perform safe thoracentesis on this patient. Hence we will hold, patient had repeat paracentesis by interventional radiology, and over 4.7 L of fluids were removed from the peritoneal cavity, and that will definitely improved the pleural effusions which are mostly related to his ascites. Reevaluated today on 02/28/20, patient remains intubated and mechanically ventilated, his ventilator settings are assist control rate of 16 volume is 500 FiO2 is 35%, PEEP at 8. ABG showed a pO2 of 92 pCO2 of 33 pH of 7.38. Patient remains on propofol at 50 mcg/kg/m, he is on bicarb but I cut it down to 25 ML per hour drip. On norepinephrine at 0.8 mcg/kg/m, and vasopressin at 0.03 units per minutes. Patient is also on TPN. Urine output is ranging between 50-100 mL /h. Patient had a total of 4.7 L drained from his peritoneal cavity/paracentesis, and at least 3 L drip spontaneously from the site of the paracentesis into a collecting bag. Fluid so far is nondiagnostic, does not seem to be infected, it is basically transudate of fluid. Patient did receive yesterday albumin and Lasix, not a significant response was noted with the Lasix. But his urine output improved more so after the paracentesis, and I suspect that the patient may have had abdominal compartment syndrome improved with paracentesis. Patient remains on broad-spectrum antibiotics for presu mptive abdominal sepsis, WBC count is 24.2 hemoglobin is 9.2. Electrolytes are relatively normal. Chest x-ray showed small bilateral pleural effusions, improved compared to the chest x-ray, and I believe that's mostly because the patient had significant amount of fluid drained with the paracentesis done yesterday. Ultrasound of the liver yesterday showed liver length of 16.1, it was heterogeneous, and there was evidence of abdominal ascites in the right upper quadrant with right pleural effusion. The patient is seen today 02/29/2020 in follow-up in the intensive care unit. He remains intubated on mechanical ventilator. Current settings with a rate 16, tidal volume 500, FiO2 35% and a PEEP of 5. Morning blood gases reveal a P O2 of 84, pCO2 35, pH 7.49. Remains sedated on propofol at 40 mcg/kg/m. Still requiring a small amount of norepinephrine at 0.5 mcg/kg/m. Continued on Solu- Cortef 100 mg IV every 8 hours. Antibiotics in the form of Unasyn, Zosyn along with fluconazole. Chest x-ray reveals small bilateral pleural effusions right greater than left. Unchanged compared to previous. Abdomen less distended. Surgical incision is clean dry well approximated. White count 18.3. Hemoglobin 9.3. Sodium 137. Potassium 3.8. Creatinine 1.03. Additional albumin and Lasix given today. Objective - Vital Signs Vital signs: Vital Signs Temp 98.2 F 02/29/20 12:00 Pulse 87 02/29/20 15:00 Resp 16 02/29/20 15:00 BP 125/73 02/29/20 15:00 Pulse Ox 97 02/29/20 15:00 Intake & Output 02/28/20 02/29/20 02/29/20 18:59 06:59 18:59 Intake Total 3513.453 1418.176 392 Output Total 490 425 247 Balance 681.321 729.176 145 Weight 69.9 kg 70.2 kg 70.2 kg Intake: IV 626 576 382 Dextrose 5% in Water 1, 350 300 175 000 ml @ 25 mls/hr IV . Q24H JOANA with Sodium Bicarb (1 Meq/ml) 150 ml Rx#:[id number] Normal Saline Carrier 240 240 180 Pressure bag 36 36 27 Intake, IV Titration 545.321 478.176 Amount Norepinephrine 32 mg In 198.425 203.457 Sodium Chloride 0.9% 218 ml @ 0.05 MCG/KG/MIN 1. 359 mls/hr IV .Q24H JOANA Rx#:[id number] Sodium Acetate 30 meq 180 Potassium Acetate 40 meq Magnesium Sulfate gm 2 gm Calcium Gluconate 1 gm Mvi, Adult No.4 with Vit K 10 ml Trace (Conc-1Ml/ Dose) 1 ml In Amino Acid 5%-D15w 1,000 ml @ 20 mls /hr IV .Q24H ONE Rx#: [id number] Sodium Acetate 30 meq 90 90 Potassium Acetate 40 meq Magnesium Sulfate gm 2 gm Calcium Gluconate 1 gm Mvi, Adult No.4 with Vit K 10 ml Trace (Conc-1Ml/ Dose) 1 ml In Amino Acid 5%-D15w 1,000 ml @ 30 mls /hr IV .Q24H [facility] Rx#: [id number] propofoL 1,000 mg In 76.896 184.719 Empty Bag 1 bag @ Titrate IV .Q0M [facility] Rx#: [id number] Tube Feeding 100 10 Output: Urine 490 425 245 Stool 2 Other: Voiding Method Indwelling Catheter Indwelling Catheter Indwelling Catheter # Bowel Movements 1 ABP, PAP, CO, CI - Last Documented Arterial Blood Pressure 151/73 - Exam GENERAL EXAM: Intubated sedated 64-year-old white male, remains on mechanical ventilator. HEAD: Normocephalic/atraumatic. EYES: Normal reaction of pupils, equal size. Conjunctiva pink, sclera white. NOSE: Clear with pink turbinates. THROAT: No erythema or exudates. NECK: No masses, no JVD, no thyroid enlargement, no adenopathy. CHEST: No chest wall deformity. Symmetrical expansion. LUNGS: Equal air entry, bilateral scattered rhonchi, diminished at the bases. CVS: Regular rate and rhythm, normal S1 and S2, no gallops, no murmurs, no rubs ABDOMEN: Soft and less distended today., with postsurgical tenderness, less induration is noted in the periumbilical area. mid abdominal incision with yvonne intact, EXTREMITIES: No clubbing, 1+ lower extremity edema, patient has a weeping edema with the drainage from the catheter insertion sites no cyanosis, 2+ pulses and upper and lower extremities. MUSCULOSKELETAL: Could not be assessed. Patient is sedated. SPINE: No scoliosis or deformity SKIN: No rashes CENTRAL NERVOUS SYSTEM: Unable to assess, patient is sedated and intubated. No focal deficits, tone is normal in all 4 extremities. - Labs CBC & Chem 7: 02/29/20 05:10 02/29/20 05:10 Labs: Abnormal Lab Results - Last 24 Hours (Table) 02/28/20 02/29/20 02/29/20 Range/Units 16:46 00:00 05:10 WBC (3.8-10.6) k/uL RBC (4.30-5.90) m/uL Hgb (13.0-17.5) gm/dL Hct (39.0-53.0) % MCV (80.0-100.0) fL Neutrophils # (1.3-7.7) k/uL ABG O2 Saturation (94-97) % Chloride 110 H (98-107) mmol/L Glucose 159 H (74-99) mg/dL POC Glucose (mg/dL) 164 H 143 H (75-99) mg/dL Calcium 7.8 L (8.4-10.2) mg/dL Alkaline Phosphatase 211 H (38-126) U/L Total Protein 5.0 L (6.3-8.2) g/dL Albumin 1.8 L (3.5-5.0) g/dL 02/29/20 02/29/20 02/29/20 Range/Units 05:10 06:05 12:07 WBC 18.3 H (3.8-10.6) k/uL RBC 2.67 L (4.30-5.90) m/uL Hgb 9.3 L (13.0-17.5) gm/dL Hct 28.0 L (39.0-53.0) % MCV 105.0 H (80.0-100.0) fL Neutrophils # 16.2 H (1.3-7.7) k/uL ABG O2 Saturation 97.5 H (94-97) % Chloride (98-107) mmol/L Glucose (74-99) mg/dL POC Glucose (mg/dL) 133 H (75-99) mg/dL Calcium (8.4-10.2) mg/dL Alkaline Phosphatase (38-126) U/L Total Protein (6.3-8.2) g/dL Albumin (3.5-5.0) g/dL Microbiology - Last 24 Hours (Table) 02/26/20 10:25 Blood Culture - Preliminary Blood No Growth after 72 hours 02/26/20 10:21 Blood Culture - Preliminary Blood No Growth after 72 hours 02/26/20 13:00 Gram Stain - Final Sputum Sputum Culture - Final Pita albicans 02/25/20 23:06 Blood Culture - Preliminary Blood No Growth after 72 hours 02/26/20 16:15 Gram Stain - Preliminary Ascites Fluid Body Fluid Culture - Preliminary Assessment and Plan Assessment: #1. Acute hypoxic respiratory failure related to septic shock, with the suspicion of intra-abdominal source rule out possibility of intra-abdominal abscess. The patient had undergone a low anterior resection, takedown of splenic flexure and partial omentectomy on 02/07/2020 #2. Acute cardiac pulmonary arrest on 02/26/2020 related to septic shock, patient required a brief CPR, was emergently intubated and fluid resuscitated, improving, remains on norepinephrine, off vasopressin #3. Increased bibasilar opacities and new small bilateral pleural effusions on the chest x-ray, most likely fluid from the ascites fluid into the pleural space. #4. Abdominal pain and distention #5. Massive ascites secondary to liver cirrhosis #6. Non-anion gap metabolic acidosis related to septic shock, and has received IV fluids and bicarbonate infusion #7. Elevated d-dimer, nonspecific, doubt possibility of pulmonary embolism. CTA chest was suboptimal but did not reveal any evidence of central pulmonary embolism, VQ scan showed intermediate probability for pulmonary embolism, patient was found to have a new left leg DVT, was on Eliquis which we will place on hold right now in view of acute decompensation, and possible need for surgical intervention in view of septic shock, with a suspicion of intra- abdominal source #8 Diverticulitis, status post lower anterior resection, takedown of splenic flexure and partial omentectomy #9. Alcohol abuse with alcohol withdrawal #11. Recent history dark black stools the possibility of upper GI bleeding #12. Altered mental status, related to metabolic encephalopathy, neurology is following #13. History of diverticular disease #14. History of EtOH abuse #15 status post large volume paracentesis with 4.7 L removed from the peritoneal cavity. Plan: The patient was seen and evaluated by Dr. Menchaca Chest x-ray and labs reviewed Remains intubated on mechanical ventilator Give additional albumin and Lasix today Continue current antibiotics Repeat chest x-ray and ABGs in the a.m We will continue to follow and make further recommendations based on his clinical status Critical care time 38 minutes I, the cosigning physician, performed a history & physical examination of the patient. Lungs sounds bilateral scattered rhonchi, diminished in the bases. Maintaining good O2 saturations in the 90s on 35 % FiO2 via the mechanical ventilator. I discussed the assessment and plan of care with my nurse practiti alfred, Ila Keene. I attest to the above note as dictated by her.
[2020-02-29 17:45] LABS: Glucose,Whole Blood 151 mg/dL (75-99)
[2020-02-29] MEDS: POTASSIUM ACETATE IV SCH ×7 (18:17)
[2020-02-29] MEDS: [UNRECOGNIZED DRUG - OTHER] IV SCH ×7 (18:17)
[2020-02-29] MEDS: SODIUM ACETATE IV SCH ×7 (18:17)
[2020-02-29] MEDS: MAGNESIUM SULFATE IV SCH ×7 (18:17)
[2020-02-29] MEDS: FUROSEMIDE 40 MG TAB PO SCH (18:18)
[2020-02-29] MEDS: TAMSULOSIN 0.4 MG CAP.ER.24H PO SCH (21:59)
--- NOTE | 2020-02-29 22:04 | PN ---
PROGRESS NOTE DATE OF SERVICE: 02/29/2020 REASON FOR FOLLOWUP: Abdominal wall cellulitis and pneumonia. INTERVAL HISTORY: Patient is currently afebrile. The patient is hemodynamically stable. His pressors are slowly being weaned off. No significant purulent secretions through the ET has been reported or any diarrhea. PHYSICAL EXAMINATION: Blood pressure 122/57, pulse of 73, temperature is 98.1. She is 93% on 45% FIO2. General description is a middle-aged male, intubated on the vent. Respiratory system: Unlabored breathing, decreased breath sounds in the base. No wheeze. Heart S1, S2. Regular rate and rhythm. ABDOMEN: Soft. Abdominal wall redness has improved. No drainage. Extremities: No edema of the feet. LABS: Hemoglobin 9.8, white count 18.3, BUN of 19, creatinine 1.03. Sputum is Pita albicans. Blood culture negative. Ascitic fluid culture so far pending. DIAGNOSTIC IMPRESSION AND PLAN: Patient with acute respiratory failure which is multifactorial in this patient who did have a cardiac arrest status post resuscitation with concern for aspiration pneumonia and abdominal wall cellulitis in this patient covered with Zosyn, daptomycin and Diflucan to continue. The patient showing some clinical improvement and white count showing a downward trend. Continue supportive care. MMODL / IJN: [id number] /
[2020-03-01 00:17] LABS: Glucose,Whole Blood 142 mg/dL (75-99)
[2020-03-01] MEDS: PIPERACILLIN-TAZOBACTAM 3.375 GM in SODIUM CHLORIDE 0.9% 100 ML IVPB SCH ×4 (00:18→23:12)
[2020-03-01] MEDS: DAPTOmycin 350 MG in SODIUM CHLORIDE 0.9% 50 ML IVPB SCH (01:06)
[2020-03-01] MEDS: HYDROCORTISONE SUCCINATE 100 MG/2 ML VIAL IV SCH ×3 (01:06→23:12)
[2020-03-01 01:15] LABS: Glucose,Whole Blood 144 mg/dL (75-99)
[2020-03-01] MEDS: INSULIN ASPART (NovoLOG) 100 UNIT/ML VIAL SQ SCH ×4 (01:15→19:00)
[2020-03-01] MEDS: [UNRECOGNIZED DRUG - OTHER] IV SCH ×7 (01:53)
[2020-03-01] MEDS: POTASSIUM ACETATE IV SCH ×7 (01:53)
[2020-03-01] MEDS: SODIUM ACETATE IV SCH ×7 (01:53)
[2020-03-01] MEDS: MAGNESIUM SULFATE IV SCH ×7 (01:53)
[2020-03-01] MEDS: NOREPINEPHRINE 32 MG in SODIUM CHLORIDE 0.9% 218 ML IV SCH (01:59)
[2020-03-01 04:53] LABS: Glucose,Whole Blood 145 mg/dL (75-99)
[2020-03-01 05:17] LABS: Basophils % (A) 0 %; Eosinophils % (A) 0 %; HCT 26.9 % (39.0-53.0); HGB 8.3 gm/dL (13.0-17.5); Hypochromasia Moderate; Lymphocytes # (A) 1.3 k/uL (1.0-4.8); Lymphocytes % (A) 10 %; MCH 32.8 pg (25.0-35.0); MCV 105.8 fL (80.0-100.0); Macrocytosis Moderate; Mean Platelet Volume 9.8; Monocytes # (A) 0.7 k/uL (0-1.0); Monocytes % (A) 5 %; Neutrophils # (A) 11.4 k/uL (1.3-7.7); Neutrophils % (A) 84 %; Platelet Count 254 k/uL (150-450); Poikilocytosis Slight; RBC 2.54 m/uL (4.30-5.90); RDW 15.6 % (11.5-15.5); WBC 13.6 k/uL (3.8-10.6)
[2020-03-01 05:41] LABS: Albumin 2.1 g/dL (3.5-5.0); Calcium 8.2 mg/dL (8.4-10.2); Magnesium 1.9 mg/dL (1.6-2.3); Phosphorus 3.5 mg/dL (2.5-4.5); Potassium 3.1 mmol/L (3.5-5.1); Total Bilirubin 0.4 mg/dL (0.2-1.3); Total Protein 5.1 g/dL (6.3-8.2)
[2020-03-01] MEDS: MAGNESIUM SULFATE-D5W PMX 1 GM in DEXTROSE/WATER 1 100ML.BAG IVPB SCH ×2 (06:41→12:31)
[2020-03-01] MEDS: POTASSIUM BICARBONATE/CIT AC 20 MEQ TABLET.EFF NG-TUBE SCH ×3 (06:41→23:11)
--- NOTE | 2020-03-01 09:16 | XR ---
EXAMINATION TYPE: XR chest 1V portable DATE OF EXAM: 03/01/2020 CLINICAL HISTORY: Difficulty breathing progress study. TECHNIQUE: Single AP portable upright view of the chest is obtained. COMPARISON: Chest x-ray from one day earlier and older studies. FINDINGS: Redemonstration of endotracheal and coiled orogastric tubes. Endotracheal tube slightly mo re low lying as is the aortic knob level roughly 2 cm above eber on current study. Background chron ic change with persistent bibasilar opacities. Cardiac silhouette size stable and within no rmal limits. Multiple old right-sided rib fractures redemonstrated. IMPRESSION: Chronic parenchymal changes with small bilateral pleural effusions and associated bibasil ar atelectasis and/or infiltrate. No significant change from one day earlier. Slightly more inferior positioning of endotracheal tube, consider pulling back 2 to 3 cm.
[2020-03-01 09:36] LABS: ABG Base Excess 6.3 mmol/L; ABG HCO3 28 mmol/L (21-25); ABG Oxygen Saturation 98.9 % (94-97); ABG PCO2 31 mmHg (35-45); ABG PO2 88 mmHg (83-108); ABG TCO2 29 mmol/L (19-24); Allen Test Performed? Yes
[2020-03-01 09:40] LABS: ABG PH 7.57 (7.35-7.45)
[2020-03-01] MEDS: SODIUM CHLORIDE 0.9% 150 ML with VASOPRESSIN 60 UNIT IV SCH ×2 (10:56)
--- NOTE | 2020-03-01 12:13 | P.PN ---
Progress Note - Text Progress Note Date: 03/01/20 Patient remains elevated. He has been more hemodynamic was stable. His blood gases alkalotic with pH is 7.57. His white count is decreased at 13. On exam her vital signs are stable. Abdomen is soft her. There is evidence of ascites. Status post low anterior resection for diverticular abscess. Samuel cirrhosis Ascites Patient will continue receive medical management this time.
[2020-03-01 12:15] LABS: Glucose,Whole Blood 134 mg/dL (75-99)
[2020-03-01] MEDS: CHLORHEXIDINE GLUCONATE 15 ML CUP MUCOUS MEM SCH ×2 (12:30→20:45)
[2020-03-01] MEDS: FLUCONAZOLE IN NACL,ISO-OSM 100 MG in SALINE 1 50ML.BAG IVPB SCH (12:30)
[2020-03-01] MEDS: SPIRONOLACTONE 25 MG TAB PO SCH ×2 (12:31→20:45)
[2020-03-01] MEDS: THIAMINE 100 MG/ML 2 ML VIAL IVP SCH (12:31)
[2020-03-01] MEDS: FUROSEMIDE 40 MG TAB PO SCH ×2 (12:32→19:02)
[2020-03-01] MEDS: PANTOPRAZOLE 40 MG/10 ML VIAL IVP SCH ×2 (12:32→20:44)
[2020-03-01] MEDS: FERROUS SULFATE ORAL ELIXIR 300 MG/5 ML CUP PO SCH ×2 (12:33→19:02)
[2020-03-01] MEDS: ENOXAPARIN 40 MG/0.4 ML SYRINGE SQ SCH (12:33)
--- NOTE | 2020-03-01 16:30 | P.PN ---
Subjective Progress Note Date: 03/01/20 Principal diagnosis: Acute hypoxic respiratory failure, massive ascites, liver cirrhosis, possible abdominal sepsis. This is a 64-year-old white male patient status post low anterior resection for strictures and diverticular disease, and this is postoperative day #6. Following his surgery on February 08 patient had a thrombus discomfort within the distal popliteal vein in his left leg, on the liver night patient had a CT angiogram of the chest which was a suboptimal study and did not reveal any large saddle all of central pulmonary emboli. The computed tomography scan showed evidence of small bilateral pleural effusions and multifocal groundglass opacities that could relate to pulmonary edema and/or pneumonia. His chest x- ray from February 11 showed bilateral infiltrates that could be consistent with pneumonia or heart failure. VQ scan showed indeterminate probability for pulmonary embolism. Patient has been confused, apparently he does have history of chronic EtOH, but it has been 60 since his admission, he remains very confused, he is on 3 L of oxygen and the pulse ox of 95%, he was started on heparin infusion for DVT in his left leg. We did not think there was a pulmonary embolism based on his workup. His brain CT showed no acute intracranial abnormality. In addition there is a possibility of GI bleeding as the patient has been passing some dark stools. Is not appear to be in any respiratory distress, he remains lethargic, confused. Neurology is following, EEGs in progress. Dr. Araujo is planning on EGD tomorrow for evaluation of black stools. On 02/14/2020 patient seen in follow-up on general medical surgical floor his heparin drip is off, his 0.9 normal saline running at 75 ML per hour, appears to be more awake on today's exam, although still confused, she is only oriented to percent, no agitation. No signs of respiratory difficulty, he is on 3 L of oxygen pulse ox is 95%, hemodynamically stable, his abdomen is slightly tender postsurgery, his incision covered with dressing, his been afebrile, breathing is nonlabored, lung sounds reveal a few basilar crackles, no rhonchi or wheezing. Surgery is planned and on EGD today, neurology is following, EEG revealed background slowing of moderate degree suggestive of generalized cerebral dysfunction related to toxic metabolic encephalopathy. Today's hemoglobin is 8.6, had one bowel movement this morning. On 02/15/2020 patient seen in follow-up on general medical surgical floor, patient had EGD done yesterday which did not reveal any active bleeding, patient was restarted on heparin infusion for evidence of DVT in his lower extremity, no worsening dyspnea, patient is still on and off lethargic, but appears to be in no acute distress. He is on 3 L of oxygen pulse ox of 95%, his been afebrile, completed chest pain. No hemoptysis. Today's hemoglobin is 9.0. On 02/26/2020 we were reconsulted in view of significant clinical deterioration last night, rapid response team was called, alva gama was activated at 0243 in the morning on 02/26/2020. Apparently patient was having ongoing abdominal pain for the past few days prior to the event, he was believed to have ileus. His abdominal CT of abdomen and pelvis was done on 02/19/2020 showing postoperative changes in the sigmoid colon, proximal to this level there was abnormal thickening of the right colon, some thickened small bowel loops were also present, no is no evidence of free air, there was evidence of increased amount of ascites. There was interval development of bilateral pleural effusions and associated atelectasis. Past few days patient also developed a low urine output urology also consulted on the case for difficult Lemus insertion and possible urinary retention. Yesterday on 02/25/2020 ultrasound abdomen showed moderate ascites in the right flank. His abdomen continued to be more distended and painful, patient was eating some oral intake, however his blood pressures were running on the lower side, his urine output continued to be low, there was paracentesis planned a possibility of ascites. Last night patient developed hypothermia, and hypotension. Patient became unresponsive, and there was no palpable pulse. CPR was started and immediately patient became responsive, CPR was stopped, patient was emergently intubated placed on mechanical ventilator and transferred to the intensive care unit. ID service has been following, patient's antibiotic coverage includes daptomycin. This morning he seen in the intensive care unit, sedated, intubated, on assist-control mode of ventilation, with a rate of 16, tidal planning is 500, FiO2 of 50%, and PEEP of 5. This was blood gases showed pO2 of 88, pCO2 of 29, and pH is 7.34. Patient is hypotensive, he is requiring levo fed at 0.43 mics per kilo per minute over 25 mics per minute, Diprivan and is at 40 mics per kilo per minute, patient has received fluid resuscitation, yesterday she had received 2 L of fluid from the surgical team earlier in the day, and he received additional 2 L bolus after his cardiac pulmonary arrest early this morning, his maintenance IV fluids are currently infusing at a rate of 75 ML per hour. Patient kidney to be hypotensive, we gave him an additional liter fluid bolus today, and she will be started on a vasopressin infusion for refractory hypotension. Blood cultures have been sent, pending at this time. Prior blood cultures and sputum culture. Patient's abdomen remains very tense, distended, firm, with the area of redness and discoloration, and induration near the mid abdominal surgical incision. Patient has a lot of generalized swelling, he is weeping from the catheter insertion sites. He had right femoral central line catheter placed by Dr. Jarrell at the bedside and a right radial art line placed for close hemodynamic monitoring. This morning's lab work has been reviewed showing squamous cell count of 21.8, hemoglobin of 8.9, sodium of 137, potassium is 4.1, chloride is 119, CO2 is 10, BUN is 10 and creatinine 0.64, patient was given 2 A of sodium bicarbonate. Reevaluated today on 02/27/20, patient is in the ICU, intubated and mechanically ventilated, his assist-control rate is 16 volume is 500 FiO2 is still on the percent, PEEP is 5. ABG today showed a pO2 of 104 pCO2 of 29 pH of 7.34 hence recommended that the patient gets the PEEP up to 8, and I cut down his FiO2 to 80%. Patient remains on norepinephrine at 46 mcg/m, he is also on bicarb drip, vasopressin was added today at 0.03, propofol is at 50 mcg/kg/m. Patient also remains on fluconazole and on daptomycin, his abdominal paracentesis was not therapeutic, it was mostly diagnostic, and so far the fluid does not seem to be diagnostic. Continues to have slight leakage from the site of his paracentesis, and the patient put out almost 3 L out in 24 hours from the same site where the paracentesis was done. Patient developed bilateral pleural effusions, however the ultrasound did not show enough fluid to perform a thoracentesis safely. Hence will hold on thoracentesis. Poor quality ultrasound pictures noted, cannot trust to perform safe thoracentesis on this patient. Hence we will hold, patient had repeat paracentesis by interventional radiology, and over 4.7 L of fluids were removed from the peritoneal cavity, and that will definitely improved the pleural effusions which are mostly related to his ascites. Reevaluated today on 02/28/20, patient remains intubated and mechanically ventilated, his ventilator settings are assist control rate of 16 volume is 500 FiO2 is 35%, PEEP at 8. ABG showed a pO2 of 92 pCO2 of 33 pH of 7.38. Patient remains on propofol at 50 mcg/kg/m, he is on bicarb but I cut it down to 25 ML per hour drip. On norepinephrine at 0.8 mcg/kg/m, and vasopressin at 0.03 units per minutes. Patient is also on TPN. Urine output is ranging between 50-100 m L/h. Patient had a total of 4.7 L drained from his peritoneal cavity/paracentesis, and at least 3 L drip spontaneously from the site of the paracentesis into a collecting bag. Fluid so far is nondiagnostic, does not seem to be infected, it is basically transudate of fluid. Patient did receive yesterday albumin and Lasix, not a significant response was noted with the Lasix. But his urine output improved more so after the paracentesis, and I suspect that the patient may have had abdominal compartment syndrome improved with paracentesis. Patient remains on broad-spectrum antibiotics for pres umptive abdominal sepsis, WBC count is 24.2 hemoglobin is 9.2. Electrolytes are relatively normal. Chest x-ray showed small bilateral pleural effusions, improved compared to the chest x-ray, and I believe that's mostly because the patient had significant amount of fluid drained with the paracentesis done yesterday. Ultrasound of the liver yesterday showed liver length of 16.1, it was heterogeneous, and there was evidence of abdominal ascites in the right upper quadrant with right pleural effusion. Reevaluated today on 03/01/20, patient remains in the ICU, intubated and mechanically ventilated. His ventilator settings are assist control rate of 16 FiO2 is 35% tidal volume is 500 PEEP is 5. Patient remains on norepinephrine at 0.17 mcg/kg/m, he is also on propofol at 50 mcg/kg/m, TPN and 0.9 normal saline at 10 mL per hour. Chest x-ray continues to show by basilar atelectasis with s mall pleural effusions. ABG showed a pO2 of 88 pCO2 of 31 pH of 7.57, hence his rate was cut down to 12. And FiO2 was increased to 40%. WBC count is 13.6 hemoglobin is 8.3. Basic metabolic profile is normal except for low potassium of 3.1. Patient remains sedated, not quite ready for any weaning trials, however will try to assess mental status of possible off propofol. Objective - Vital Signs Vital signs: Vital Signs Temp 98.4 F 03/01/20 12:00 Pulse 86 03/01/20 12:00 Resp 16 03/01/20 12:00 BP 75/52 03/01/20 11:00 Pulse Ox 95 03/01/20 12:00 Intake & Output 02/29/20 03/01/20 03/01/20 18:59 06:59 18:59 Intake Total 471 1207.007 118 Output Total 298 1940 126 Balance 173 -732.993 -8 Weight 70.2 kg 68.2 kg Intake: IV 451 496 108 Dextrose 5% in Water 1, 175 000 ml @ 25 mls/hr IV . Q24H JOANA with Sodium Bicarb (1 Meq/ml) 150 ml Rx#:[id number] Normal Saline Carrier 240 180 60 Piperacillin-Tazobactam 3 100 .375 gm In Sodium Chloride 0.9% 100 ml @ 25 mls/hr IVPB Q8HR JOANA Rx# :[id number] Pressure bag 36 36 18 Sodium Acetate 30 meq 180 30 Potassium Acetate 40 meq Magnesium Sulfate gm 2 gm Calcium Gluconate 1 gm Mvi, Adult No.4 with Vit K 10 ml Trace (Conc-1Ml/ Dose) 1 ml In Amino Acid 5%-D15w 1,000 ml @ 30 mls /hr IV .Q24H JOANA Rx#: [id number] Intake, IV Titration 521.007 Amount Norepinephrine 32 mg In 250 Sodium Chloride 0.9% 218 ml @ 0.05 MCG/KG/MIN 1. 359 mls/hr IV .Q24H JOANA Rx#:[id number] propofoL 1,000 mg In 271.007 Empty Bag 1 bag @ Titrate IV .Q0M JOANA Rx#: [id number] Tube Feeding 20 100 10 Other 90 Output: Urine 295 1940 125 Stool 3 1 Other: Voiding Method Indwelling Catheter Indwelling Catheter Indwelling Catheter ABP, PAP, CO, CI - Last Documented Arterial Blood Pressure 114/51 - Exam GENERAL EXAM: Intubated sedated 64-year-old white male, intubated and mechanically ventilated. HEAD: Normocephalic/atraumatic. EYES: Normal reaction of pupils, equal size. Conjunctiva pink, sclera white. NOSE: Clear with pink turbinates. THROAT: No erythema or exudates. NECK: No masses, no JVD, no thyroid enlargement, no adenopathy. CHEST: No chest wall deformity. Symmetrical expansion. LUNGS: Equal air entry , no rhonchi crackles or wheezes. CVS: Regular rate and rhythm, normal S1 and S2, no gallops, no murmurs, no rubs ABDOMEN: Soft and less distended today., with postsurgical tenderness, less induration is noted in the periumbilical area. mid abdominal incision with yvonne intact, EXTREMITIES: No clubbing, 1+ lower extremity edema, no cyanosis, 2+ pulses and upper and lower extremities. MUSCULOSKELETAL: Could not be assessed. Patient is sedated. SPINE: No scoliosis or deformity SKIN: No rashes CENTRAL NERVOUS SYSTEM: Unable to assess, patient is sedated and intubated. No focal deficits, tone is normal in all 4 extremities. - Labs CBC & Chem 7: 03/01/20 04:45 03/01/20 04:45 Labs: Abnormal Lab Results - Last 24 Hours (Table) 02/29/20 03/01/20 03/01/20 Range/Units 17:43 00:15 01:13 WBC (3.8-10.6) k/uL RBC (4.30-5.90) m/uL Hgb (13.0-17.5) gm/dL Hct (39.0-53.0) % MCV (80.0-100.0) fL RDW (11.5-15.5) % Neutrophils # (1.3-7.7) k/uL ABG pH (7.35-7.45) ABG pCO2 (35-45) mmHg ABG HCO3 (21-25) mmol/L ABG Total CO2 (19-24) mmol/L ABG O2 Saturation (94-97) % Potassium (3.5-5.1) mmol/L Chloride (98-107) mmol/L Glucose (74-99) mg/dL POC Glucose (mg/dL) 151 H 142 H 144 H (75-99) mg/dL Calcium (8.4-10.2) mg/dL Alkaline Phosphatase (38-126) U/L Total Protein (6.3-8.2) g/dL Albumin (3.5-5.0) g/dL 03/01/20 03/01/20 03/01/20 Range/Units 04:45 04:45 04:52 WBC 13.6 H (3.8-10.6) k/uL RBC 2.54 L (4.30-5.90) m/uL Hgb 8.3 L (13.0-17.5) gm/dL Hct 26.9 L (39.0-53.0) % MCV 105.8 H (80.0-100.0) fL RDW 15.6 H (11.5-15.5) % Neutrophils # 11.4 H (1.3-7.7) k/uL ABG pH (7.35-7.45) ABG pCO2 (35-45) mmHg ABG HCO3 (21-25) mmol/L ABG Total CO2 (19-24) mmol/L ABG O2 Saturation (94-97) % Potassium 3.1 L (3.5-5.1) mmol/L Chloride 110 H (98-107) mmol/L Glucose 134 H (74-99) mg/dL POC Glucose (mg/dL) 145 H (75-99) mg/dL Calcium 8.2 L (8.4-10.2) mg/dL Alkaline Phosphatase 200 H (38-126) U/L Total Protein 5.1 L (6.3-8.2) g/dL Albumin 2.1 L (3.5-5.0) g/dL 03/01/20 03/01/20 Range/Units 09:34 12:13 WBC (3.8-10.6) k/uL RBC (4.30-5.90) m/uL Hgb (13.0-17.5) gm/dL Hct (39.0-53.0) % MCV (80.0-100.0) fL RDW (11.5-15.5) % Neutrophils # (1.3-7.7) k/uL ABG pH 7.57 H* (7.35-7.45) ABG pCO2 31 L (35-45) mmHg ABG HCO3 28 H (21-25) mmol/L ABG Total CO2 29 H (19-24) mmol/L ABG O2 Saturation 98.9 H (94-97) % Potassium (3.5-5.1) mmol/L Chloride (98-107) mmol/L Glucose (74-99) mg/dL POC Glucose (mg/dL) 134 H (75-99) mg/dL Calcium (8.4-10.2) mg/dL Alkaline Phosphatase (38-126) U/L Total Protein (6.3-8.2) g/dL Albumin (3.5-5.0) g/dL Microbiology - Last 24 Hours (Table) 02/26/20 10:25 Blood Culture - Preliminary Blood No Growth after 96 hours 02/26/20 10:21 Blood Culture - Preliminary Blood No Growth after 96 hours 02/25/20 23:06 Blood Culture - Preliminary Blood No Growth after 96 hours 02/26/20 16:15 Gram Stain - Preliminary Ascites Fluid Body Fluid Culture - Preliminary Assessment and Plan Assessment: #1. Acute hypoxic respiratory failure related to septic shock, possible abdominal sepsis. #2. Acute cardiac pulmonary arrest on 02/26/2020 related to septic shock, patient required a brief CPR, was emergently intubated and fluid resuscitated, #3. Increased bibasilar opacities and new small bilateral pleural effusions on the chest x-ray, and if continue improved. #4. Abdominal pain and distention improved post-paracentesis. #5. Massive ascites secondary to liver cirrhosis #6. Non-anion gap metabolic acidosis related to septic shock, and has received IV fluids and bicarbonate infusion #7. Elevated d-dimer, nonspecific, doubt possibility of pulmonary embolism. CTA chest was suboptimal but did not reveal any evidence of central pulmonary embolism, VQ scan showed intermediate probability for pulmonary embolism, patient was found to have a new left leg DVT, was on Eliquis #8 Diverticulitis, status post lower anterior resection, takedown of splenic flexure and partial omentectomy #9. Alcohol abuse with alcohol withdrawal #11. Recent history dark black stools the possibility of upper GI bleeding #12. Altered mental status, related to metabolic encephalopathy, neurology is following #13. History of diverticular disease #14. History of EtOH abuse #15 status post large volume paracentesis with 4.7 L removed from the peritoneal cavity. Recommendation: Continue present supportive care measures. Continue ventilatory support. Continue hemodynamic support. At the rate and possibly discontinue vasopressin Continue warming blankets for hypothermia. Continue Solu-Cortef. Decreased the dose to 50 mg IV push every 8 hours. Continue antibiotics and antifungal therapy. Intermittent diuresis Prognosis remains extremely poor and guarded. Critical care time is over 30 minutes Time with Patient: Greater than 30
--- NOTE | 2020-03-01 20:02 | PN ---
PROGRESS NOTE DATE OF SERVICE: 03/01/2020 This 64-year-old gentleman was admitted after low anterior resection and multiple issues, at this time. The patient has acute hypoxic respiratory failure. Patient also had bilateral pleural effusion, ascites, possibly secondary to cirrhosis of the liver. The patient has been diuresed. The patient also had thoracocentesis also. The patient had some mild respiratory alkalosis. Dr. Menchaca is following the patient closely. The patient is started on diuretics. PAST MEDICAL HISTORY: Reviewed. REVIEW OF SYSTEMS: Could not be taken, the patient mechanically ventilated and sedated. CURRENT MEDICATIONS: Reviewed include chlorhexidine, daptomycin, Lovenox, iron sulfate, fluconazole, Solu- Cortef, NovoLog, Nicorette, Zosyn. Doses reviewed. PHYSICAL EXAM: Patient is on mechanical ventilation. Pulse 86, blood pressure 114/51, respirations 16, temperature 98.4, pulse ox 98% on 40% FiO2. Vent settings are noted. HEENT: Conjunctivae normal. Oral mucosa moist. NECK: No jugular venous distention. No lymph node enlargement. CARDIOVASCULAR: S1, S2, muffled. No S3, no S4, RESPIRATORY: Diminished breath sounds at the bases. Bilateral scattered rhonchi and crackles. ABDOMEN: Soft, nontender. LEGS: No edema, no swelling. NERVOUS SYSTEM: No focal motor or sensory deficits. LABS: WBC 18.2, hemoglobin 9.3. PH is 7.57. Otherwise sodium 140, potassium 3.1. Other labs are noted. ASSESSMENT: 1. Status post low anterior resection for diverticulitis. 2. Acute hypoxic respiratory failure from abdominal sepsis and severe sepsis and hypotension septic shock. 3. Ascites possibly secondary to cirrhosis of the liver. 4. Status post abdominal paracentesis. 5. Bilateral pleural effusion status post thoracocentesis. 6. Postoperative ileus. 7. History of nicotine dependence. 8. Chronic obstructive pulmonary disease. 9. History of alcoholic hepatitis. 10.Hyponatremia. 11.Microcytic anemia. 12.Hypoalbuminemia with mild protein calorie malnutrition. 13.Acute deep venous thrombosis of the left distal popliteal vein on IV heparin. 14.Acute alcohol withdrawal symptoms, present on admission. 15.Right lower lobe pneumonia. 16.Leukemoid reaction. 17.Abnormal CT scan of the abdomen. RECOMMENDATIONS AND DISCUSSION: Recommend to continue current management, continue to monitor and symptomatic treatment. Otherwise, at this time I recommend follow closely with Dr. Menchaca. Continue the diuresis. Continue the rest of medications, broad-spectrum IV antibiotics. Prognosis guarded. Further recommendations to follow. MMODL / IJN: [id number] /
[2020-03-01] MEDS: TAMSULOSIN 0.4 MG CAP.ER.24H PO SCH (20:36)
[2020-03-01] MEDS: ENOXAPARIN 60 MG/0.6 ML SYRINGE SQ SCH (21:25)
[2020-03-01 23:03] LABS: Magnesium 2.2 mg/dL (1.6-2.3); Potassium 2.9 mmol/L (3.5-5.1)
--- NOTE | 2020-03-01 23:34 | PN ---
PROGRESS NOTE DATE OF SERVICE: 03/01/2020 REASON FOR FOLLOWUP: Aspiration pneumonia, abdominal wall cellulitis. INTERVAL HISTORY: The patient is currently afebrile. He is hemodynamically stable. FiO2 is currently at 40% ( ) diarrhea has been reported by nursing staff. EXAMINATION: Blood pressure 125/67, pulse of 74, temperature 99.3. He is 95% on 40% FIO2. General description is a middle-aged male, intubated on the vent. Respiratory system: Unlabored breathing, decreased breath sounds, no wheeze. Heart S1, S2. Regular rate and rhythm. Abdomen soft, minimally distended. The redness has resolved. Extremities show trace edema of feet. LABS: Hemoglobin 8.1 down to 13.7, BUN of 20, creatinine 1.05. Sputum is Pita albicans. The fluid has been negative. DIAGNOSTIC IMPRESSION AND PLAN: Patient with acute respiratory failure which is likely multifactorial with possible component of pneumonia and abdominal wall cellulitis. Patient is covered with Zosyn, daptomycin. White count showing a downward trend to continue while waiting for his condition to stabilize and continue supportive care. MMODL / IJN: [id number] /
[2020-03-02] MEDS: POTASSIUM BICARBONATE/CIT AC 20 MEQ TABLET.EFF NG-TUBE SCH ×4 (00:12→07:14)
[2020-03-02] MEDS: DAPTOmycin 350 MG in SODIUM CHLORIDE 0.9% 50 ML IVPB SCH (00:18)
[2020-03-02 00:34] LABS: Glucose,Whole Blood 152 mg/dL (75-99)
[2020-03-02] MEDS: INSULIN ASPART (NovoLOG) 100 UNIT/ML VIAL SQ SCH ×4 (00:34→18:16)
[2020-03-02] MEDS: SODIUM CHLORIDE 0.9% 150 ML with VASOPRESSIN 60 UNIT IV SCH ×2 (02:00)
[2020-03-02 05:02] LABS: Basophils % (A) 0 %; Eosinophils % (A) 0 %; HCT 27.3 % (39.0-53.0); HGB 9.1 gm/dL (13.0-17.5); Hypochromasia Moderate; Lymphocytes # (A) 1.5 k/uL (1.0-4.8); Lymphocytes % (A) 12 %; MCH 34.7 pg (25.0-35.0); MCHC 33.4 g/dL (31.0-37.0); MCV 104.1 fL (80.0-100.0); Macrocytosis Moderate; Mean Platelet Volume 8.9; Monocytes # (A) 0.8 k/uL (0-1.0); Monocytes % (A) 6 %; Neutrophils # (A) 9.7 k/uL (1.3-7.7); Neutrophils % (A) 79 %; Platelet Count 221 k/uL (150-450); Poikilocytosis Slight; RBC 2.62 m/uL (4.30-5.90); RDW 14.9 % (11.5-15.5); WBC 12.2 k/uL (3.8-10.6)
[2020-03-02 05:09] LABS: African American GFR (CKD) >90 (>60 ml/min/1.73 sqM); Anion Gap 1 mmol/L; Blood Urea Nitrogen 23 mg/dL (9-20); Carbon Dioxide 33 mmol/L (22-30); Chloride 107 mmol/L (98-107); Glucose 132 mg/dL (74-99); Magnesium 1.9 mg/dL (1.6-2.3); Non-African American GFR(CKD) >90 (>60 ml/min/1.73 sqM); Phosphorus 4.1 mg/dL (2.5-4.5); Potassium 3.3 mmol/L (3.5-5.1); Sodium 141 mmol/L (137-145)
[2020-03-02 05:23] LABS: Glucose,Whole Blood 141 mg/dL (75-99)
[2020-03-02 05:25] LABS: ABG Base Excess 11.5 mmol/L; ABG HCO3 33 mmol/L (21-25); ABG Oxygen Saturation 95.5 % (94-97); ABG PCO2 33 mmHg (35-45); ABG PO2 65 mmHg (83-108); ABG TCO2 34 mmol/L (19-24); Allen Test Performed? Yes
[2020-03-02] MEDS: SODIUM CHLORIDE 0.9% 1,000 ML IV SCH ×3 (06:17→22:25)
[2020-03-02] MEDS: FERROUS SULFATE ORAL ELIXIR 300 MG/5 ML CUP PO SCH ×2 (06:25→18:17)
--- NOTE | 2020-03-02 06:51 | XR ---
EXAMINATION TYPE: XR chest 1V portable DATE OF EXAM: 03/02/2020 CLINICAL HISTORY: Difficulty breathing progress study. TECHNIQUE: Single AP portable semiupright view of the chest is obtained. COMPARISON: Chest x-ray from one day earlier and older studies. FINDINGS: Redemonstration of low-lying endotracheal and coiled orogastric tubes. Background chronic parenchymal change with persistent bibasilar opacities. Cardiac silhouette size st able and upper limits of normal with atherosclerotic thoracic aorta. Multiple old right-sided rib fra ctures redemonstrated. IMPRESSION: Chronic parenchymal changes with small bilateral pleural effusions and associated bibasi lar atelectasis and/or infiltrate. No significant change from one day earlier. Low-lying endotracheal tube once again noted.
[2020-03-02] MEDS: PIPERACILLIN-TAZOBACTAM 3.375 GM in SODIUM CHLORIDE 0.9% 100 ML IVPB SCH ×2 (07:16→15:50)
[2020-03-02] MEDS: ENOXAPARIN 60 MG/0.6 ML SYRINGE SQ SCH ×2 (10:09→22:26)
[2020-03-02] MEDS: CHLORHEXIDINE GLUCONATE 15 ML CUP MUCOUS MEM SCH ×2 (10:09→22:27)
[2020-03-02] MEDS: HYDROCORTISONE SUCCINATE 100 MG/2 ML VIAL IV SCH ×2 (10:09→22:27)
[2020-03-02] MEDS: THIAMINE 100 MG/ML 2 ML VIAL IVP SCH (10:10)
[2020-03-02] MEDS: SPIRONOLACTONE 25 MG TAB PO SCH (10:10)
[2020-03-02] MEDS: FUROSEMIDE 40 MG TAB PO SCH (10:10)
[2020-03-02] MEDS: PANTOPRAZOLE 40 MG/10 ML VIAL IVP SCH ×2 (10:10→22:28)
[2020-03-02] MEDS: acetaZOLAMIDE 250 MG TAB PO SCH ×2 (10:11→22:26)
[2020-03-02] MEDS: FLUCONAZOLE IN NACL,ISO-OSM 100 MG in SALINE 1 50ML.BAG IVPB SCH (11:17)
[2020-03-02 12:12] LABS: Glucose,Whole Blood 117 mg/dL (75-99)
--- NOTE | 2020-03-02 13:45 | P.PN ---
Progress Note - Text Progress Note Date: 03/02/20 Patient remains on the ventilator. He is improving and decreasing his need for pressors. Patient remains alkalotic. On exam his abdomen is soft. There is some evidence of ascites. However it is not tense. Status post low anterior resection for diverticular abscess. Patient has accomplished related to alcohol cirrhosis and ascites. Patient will continue receive supportive medical care.
--- NOTE | 2020-03-02 15:17 | P.PN ---
Subjective Progress Note Date: 03/02/20 Principal diagnosis: Acute hypoxic respiratory failure, massive ascites, liver cirrhosis, possible abdominal sepsis. This is a 64-year-old white male patient status post low anterior resection for strictures and diverticular disease, and this is postoperative day #6. Following his surgery on February 08 patient had a thrombus discomfort within the distal popliteal vein in his left leg, on the liver night patient had a CT angiogram of the chest which was a suboptimal study and did not reveal any large saddle all of central pulmonary emboli. The computed tomography scan showed evidence of small bilateral pleural effusions and multifocal groundglass opacities that could relate to pulmonary edema and/or pneumonia. His chest x- ray from February 11 showed bilateral infiltrates that could be consistent with pneumonia or heart failure. VQ scan showed indeterminate probability for pulmonary embolism. Patient has been confused, apparently he does have history of chronic EtOH, but it has been 60 since his admission, he remains very confused, he is on 3 L of oxygen and the pulse ox of 95%, he was started on heparin infusion for DVT in his left leg. We did not think there was a pulmonary embolism based on his workup. His brain CT showed no acute intracranial abnormality. In addition there is a possibility of GI bleeding as the patient has been passing some dark stools. Is not appear to be in any respiratory distress, he remains lethargic, confused. Neurology is following, EEGs in progress. Dr. Araujo is planning on EGD tomorrow for evaluation of black stools. On 02/14/2020 patient seen in follow-up on general medical surgical floor his heparin drip is off, his 0.9 normal saline running at 75 ML per hour, appears to be more awake on today's exam, although still confused, she is only oriented to percent, no agitation. No signs of respiratory difficulty, he is on 3 L of oxygen pulse ox is 95%, hemodynamically stable, his abdomen is slightly tender postsurgery, his incision covered with dressing, his been afebrile, breathing is nonlabored, lung sounds reveal a few basilar crackles, no rhonchi or wheezing. Surgery is planned and on EGD today, neurology is following, EEG revealed background slowing of moderate degree suggestive of generalized cerebral dysfunction related to toxic metabolic encephalopathy. Today's hemoglobin is 8.6, had one bowel movement this morning. On 02/15/2020 patient seen in follow-up on general medical surgical floor, patient had EGD done yesterday which did not reveal any active bleeding, patient was restarted on heparin infusion for evidence of DVT in his lower extremity, no worsening dyspnea, patient is still on and off lethargic, but appears to be in no acute distress. He is on 3 L of oxygen pulse ox of 95%, his been afebrile, completed chest pain. No hemoptysis. Today's hemoglobin is 9.0. On 02/26/2020 we were reconsulted in view of significant clinical deterioration last night, rapid response team was called, alva gama was activated at 0243 in the morning on 02/26/2020. Apparently patient was having ongoing abdominal pain for the past few days prior to the event, he was believed to have ileus. His abdominal CT of abdomen and pelvis was done on 02/19/2020 showing postoperative changes in the sigmoid colon, proximal to this level there was abnormal thickening of the right colon, some thickened small bowel loops were also present, no is no evidence of free air, there was evidence of increased amount of ascites. There was interval development of bilateral pleural effusions and associated atelectasis. Past few days patient also developed a low urine output urology also consulted on the case for difficult Lemus insertion and possible urinary retention. Yesterday on 02/25/2020 ultrasound abdomen showed moderate ascites in the right flank. His abdomen continued to be more distended and painful, patient was eating some oral intake, however his blood pressures were running on the lower side, his urine output continued to be low, there was paracentesis planned a possibility of ascites. Last night patient developed hypothermia, and hypotension. Patient became unresponsive, and there was no palpable pulse. CPR was started and immediately patient became responsive, CPR was stopped, patient was emergently intubated placed on mechanical ventilator and transferred to the intensive care unit. ID service has been following, patient's antibiotic coverage includes daptomycin. This morning he seen in the intensive care unit, sedated, intubated, on assist-control mode of ventilation, with a rate of 16, tidal planning is 500, FiO2 of 50%, and PEEP of 5. This was blood gases showed pO2 of 88, pCO2 of 29, and pH is 7.34. Patient is hypotensive, he is requiring levo fed at 0.43 mics per kilo per minute over 25 mics per minute, Diprivan and is at 40 mics per kilo per minute, patient has received fluid resuscitation, yesterday she had received 2 L of fluid from the surgical team earlier in the day, and he received additional 2 L bolus after his cardiac pulmonary arrest early this morning, his maintenance IV fluids are currently infusing at a rate of 75 ML per hour. Patient kidney to be hypotensive, we gave him an additional liter fluid bolus today, and she will be started on a vasopressin infusion for refractory hypotension. Blood cultures have been sent, pending at this time. Prior blood cultures and sputum culture. Patient's abdomen remains very tense, distended, firm, with the area of redness and discoloration, and induration near the mid abdominal surgical incision. Patient has a lot of generalized swelling, he is weeping from the catheter insertion sites. He had right femoral central line catheter placed by Dr. Jarrell at the bedside and a right radial art line placed for close hemodynamic monitoring. This morning's lab work has been reviewed showing squamous cell count of 21.8, hemoglobin of 8.9, sodium of 137, potassium is 4.1, chloride is 119, CO2 is 10, BUN is 10 and creatinine 0.64, patient was given 2 A of sodium bicarbonate. Reevaluated today on 02/27/20, patient is in the ICU, intubated and mechanically ventilated, his assist-control rate is 16 volume is 500 FiO2 is still on the percent, PEEP is 5. ABG today showed a pO2 of 104 pCO2 of 29 pH of 7.34 hence recommended that the patient gets the PEEP up to 8, and I cut down his FiO2 to 80%. Patient remains on norepinephrine at 46 mcg/m, he is also on bicarb drip, vasopressin was added today at 0.03, propofol is at 50 mcg/kg/m. Patient also remains on fluconazole and on daptomycin, his abdominal paracentesis was not therapeutic, it was mostly diagnostic, and so far the fluid does not seem to be diagnostic. Continues to have slight leakage from the site of his paracentesis, and the patient put out almost 3 L out in 24 hours from the same site where the paracentesis was done. Patient developed bilateral pleural effusions, however the ultrasound did not show enough fluid to perform a thoracentesis safely. Hence will hold on thoracentesis. Poor quality ultrasound pictures noted, cannot trust to perform safe thoracentesis on this patient. Hence we will hold, patient had repeat paracentesis by interventional radiology, and over 4.7 L of fluids were removed from the peritoneal cavity, and that will definitely improved the pleural effusions which are mostly related to his ascites. Reevaluated today on 02/28/20, patient remains intubated and mechanically ventilated, his ventilator settings are assist control rate of 16 volume is 500 FiO2 is 35%, PEEP at 8. ABG showed a pO2 of 92 pCO2 of 33 pH of 7.38. Patient remains on propofol at 50 mcg/kg/m, he is on bicarb but I cut it down to 25 ML per hour drip. On norepinephrine at 0.8 mcg/kg/m, and vasopressin at 0.03 units per minutes. Patient is also on TPN. Urine output is ranging between 50-100 m L/h. Patient had a total of 4.7 L drained from his peritoneal cavity/paracentesis, and at least 3 L drip spontaneously from the site of the paracentesis into a collecting bag. Fluid so far is nondiagnostic, does not seem to be infected, it is basically transudate of fluid. Patient did receive yesterday albumin and Lasix, not a significant response was noted with the Lasix. But his urine output improved more so after the paracentesis, and I suspect that the patient may have had abdominal compartment syndrome improved with paracentesis. Patient remains on broad-spectrum antibiotics for pres umptive abdominal sepsis, WBC count is 24.2 hemoglobin is 9.2. Electrolytes are relatively normal. Chest x-ray showed small bilateral pleural effusions, improved compared to the chest x-ray, and I believe that's mostly because the patient had significant amount of fluid drained with the paracentesis done yesterday. Ultrasound of the liver yesterday showed liver length of 16.1, it was heterogeneous, and there was evidence of abdominal ascites in the right upper quadrant with right pleural effusion. Reevaluated today on 03/01/20, patient remains in the ICU, intubated and mechanically ventilated. His ventilator settings are assist control rate of 16 FiO2 is 35% tidal volume is 500 PEEP is 5. Patient remains on norepinephrine at 0.17 mcg/kg/m, he is also on propofol at 50 mcg/kg/m, TPN and 0.9 normal saline at 10 mL per hour. Chest x-ray continues to show by basilar atelectasis with s mall pleural effusions. ABG showed a pO2 of 88 pCO2 of 31 pH of 7.57, hence his rate was cut down to 12. And FiO2 was increased to 40%. WBC count is 13.6 hemoglobin is 8.3. Basic metabolic profile is normal except for low potassium of 3.1. Patient remains sedated, not quite ready for any weaning trials, however will try to assess mental status of possible off propofol. Patient was reevaluated today on 03/02/20, remains in the ICU, intubated and mechanically ventilated. Patient remains on assist control rate of 10 tidal volume is 500 FiO2 is 50% and PEEP of 5. ABG earlier before the rate changed to 10 showed a pO2 of 65 pCO2 of 33 pH of 7.61. Patient remains on norepinephrine at 0.09 mcg/kg/m, he is on propofol at 30 mcg/kg/m he is also on enteral feeding and 0.9 normal saline was added today at 100 mL per hour. Patient seems to be developing a picture of contraction metabolic alkalosis with slight respiratory alkalosis. Hence I have recommended hydrating the patient, discontinued Lasix, and recommended Diamox. He will receive Diamox at 250 mg IV push every 12 hours. Patient seems to have decent urine output, his ascites and bipedal edema seems to be improving. I believe the patient may be actually developing contraction alkalosis. I have discontinued his TPN, and kept him on enteral feeding. WBC count today is 12.2 hemoglobin is 9.1. Electrolytes are normal except for low potassium of 2.9 which is not unusual considering that his pH is 7.60. That is being corrected. And his bicarb is 33 today. Chest x-ray shows bilateral pleural effusions small, previous ultrasound showed not large enough to consider thoracentesis. Both improved significantly post paracentesis. Objective - Vital Signs Vital signs: Vital Signs Temp 98.8 F 03/02/20 12:00 Pulse 49 L 03/02/20 14:00 Resp 13 03/02/20 14:00 BP 75/52 03/01/20 13:00 Pulse Ox 99 03/02/20 14:00 Intake & Output 03/01/20 03/02/20 03/02/20 18:59 06:59 18:59 Intake Total 178 1333.336 904 Output Total 126 2085 517 Balance 52 -751.664 387 Weight 68.8 kg Intake: IV 168 413 894 Normal Saline Carrier 120 190 80 Piperacillin-Tazobactam 3 100 .375 gm In Sodium Chloride 0.9% 100 ml @ 25 mls/hr IVPB Q8HR JOANA Rx# :[id number] Pressure bag 18 33 24 Sodium Acetate 30 meq 30 Potassium Acetate 40 meq Magnesium Sulfate gm 2 gm Calcium Gluconate 1 gm Mvi, Adult No.4 with Vit K 10 ml Trace (Conc-1Ml/ Dose) 1 ml In Amino Acid 5%-D15w 1,000 ml @ 30 mls /hr IV .Q24H JOANA Rx#: [id number] Sodium Chloride 0.9% 1, 90 790 000 ml @ 100 mls/hr IV . Q10H JOANA Rx#:[id number] Intake, IV Titration 720.336 Amount Norepinephrine 32 mg In 118.843 Sodium Chloride 0.9% 218 ml @ 0.05 MCG/KG/MIN 1. 359 mls/hr IV .Q24H JOANA Rx#:[id number] Sodium Acetate 30 meq 572.5 Potassium Acetate 50 meq Magnesium Sulfate gm 1 gm Calcium Gluconate 1 gm Mvi, Adult No.4 with Vit K 10 ml Trace (Conc-1Ml/ Dose) 1 ml In Amino Acid 5%-D15w 1,000 ml @ 30 mls /hr IV .Q24H JOANA Rx#: [id number] propofoL 1,000 mg In 28.993 Empty Bag 1 bag @ Titrate IV .Q0M JOANA Rx#: [id number] Tube Feeding 10 110 10 Other 90 Output: Urine 125 2085 515 Stool 1 2 Other: Voiding Method Indwelling Catheter Indwelling Catheter Indwelling Catheter # Voids 1 # Bowel Movements 0 ABP, PAP, CO, CI - Last Documented Arterial Blood Pressure 128/55 - Exam GENERAL EXAM: Intubated sedated 64-year-old white male, intubated and mechanically ventilated. HEAD: Normocephalic/atraumatic. EYES: Normal reaction of pupils, equal size. Conjunctiva pink, sclera white. NOSE: Clear with pink turbinates. THROAT: No erythema or exudates. NECK: No masses, no JVD, no thyroid enlargement, no adenopathy. CHEST: No chest wall deformity. Symmetrical expansion. LUNGS: Equal air entry , no rhonchi crackles or wheezes. CVS: Regular rate and rhythm, normal S1 and S2, no gallops, no murmurs, no rubs ABDOMEN: Soft nontender, no megaly, surgical scar noted in the periumbilical area. EXTREMITIES: No clubbing, 1+ lower extremity edema, no cyanosis, 2+ pulses and upper and lower extremities. MUSCULOSKELETAL: Could not be assessed. Patient is sedated. SPINE: No scoliosis or deformity SKIN: No rashes CENTRAL NERVOUS SYSTEM: Unable to assess, patient is sedated and intubated. No focal deficits, tone is normal in all 4 extremities. - Labs CBC & Chem 7: 03/02/20 04:30 03/02/20 04:30 Labs: Abnormal Lab Results - Last 24 Hours (Table) 03/01/20 03/02/20 03/02/20 Range/Units 22:35 00:31 04:30 WBC (3.8-10.6) k/uL RBC (4.30-5.90) m/uL Hgb (13.0-17.5) gm/dL Hct (39.0-53.0) % MCV (80.0-100.0) fL Neutrophils # (1.3-7.7) k/uL ABG pH (7.35-7.45) ABG pCO2 (35-45) mmHg ABG pO2 (83-108) mmHg ABG HCO3 (21-25) mmol/L ABG Total CO2 (19-24) mmol/L Potassium 2.9 L 3.3 L (3.5-5.1) mmol/L Chloride 109 H (98-107) mmol/L Carbon Dioxide 33 H (22-30) mmol/L BUN 24 H 23 H (9-20) mg/dL Glucose 132 H 132 H (74-99) mg/dL POC Glucose (mg/dL) 152 H (75-99) mg/dL Calcium 8.0 L 8.0 L (8.4-10.2) mg/dL 03/02/20 03/02/20 03/02/20 Range/Units 04:30 05:21 05:22 WBC 12.2 H (3.8-10.6) k/uL RBC 2.62 L (4.30-5.90) m/uL Hgb 9.1 L (13.0-17.5) gm/dL Hct 27.3 L (39.0-53.0) % MCV 104.1 H (80.0-100.0) fL Neutrophils # 9.7 H (1.3-7.7) k/uL ABG pH 7.61 H* (7.35-7.45) ABG pCO2 33 L (35-45) mmHg ABG pO2 65 L (83-108) mmHg ABG HCO3 33 H (21-25) mmol/L ABG Total CO2 34 H (19-24) mmol/L Potassium (3.5-5.1) mmol/L Chloride (98-107) mmol/L Carbon Dioxide (22-30) mmol/L BUN (9-20) mg/dL Glucose (74-99) mg/dL POC Glucose (mg/dL) 141 H (75-99) mg/dL Calcium (8.4-10.2) mg/dL 03/02/20 Range/Units 12:09 WBC (3.8-10.6) k/uL RBC (4.30-5.90) m/uL Hgb (13.0-17.5) gm/dL Hct (39.0-53.0) % MCV (80.0-100.0) fL Neutrophils # (1.3-7.7) k/uL ABG pH (7.35-7.45) ABG pCO2 (35-45) mmHg ABG pO2 (83-108) mmHg ABG HCO3 (21-25) mmol/L ABG Total CO2 (19-24) mmol/L Potassium (3.5-5.1) mmol/L Chloride (98-107) mmol/L Carbon Dioxide (22-30) mmol/L BUN (9-20) mg/dL Glucose (74-99) mg/dL POC Glucose (mg/dL) 117 H (75-99) mg/dL Calcium (8.4-10.2) mg/dL Microbiology - Last 24 Hours (Table) 02/26/20 10:25 Blood Culture - Preliminary Blood No Growth after 120 hours 02/26/20 10:21 Blood Culture - Preliminary Blood No Growth after 120 hours 02/25/20 23:06 Blood Culture - Preliminary Blood No Growth after 120 hours 02/26/20 16:15 Gram Stain - Final Ascites Fluid Body Fluid Culture - Final Assessment and Plan Assessment: #1. Acute hypoxic respiratory failure related to septic shock, possible abdominal sepsis. Although cultures from the paracentesis fluid have been negative. #2. Acute cardiac pulmonary arrest on 02/26/2020 related to septic shock, patient required a brief CPR, was emergently intubated and fluid resuscitated, #3. Increased bibasilar opacities and small bilateral pleural effusions #4. Abdominal pain and distention improved post-paracentesis. Patient had over 8 L of fluid drained from his peritoneal cavity within 24 hours. #5. Massive ascites secondary to liver cirrhosis , status post high-volume paracentesis. #6. Contraction alkalosis. Mostly secondary to paracentesis and Lasix/diuretics. #7. Elevated d-dimer, nonspecific, doubt possibility of pulmonary embolism. C TA chest was suboptimal but did not reveal any evidence of central pulmonary embolism, VQ scan showed intermediate probability for pulmonary embolism, patient was found to have a new left leg DVT, was on Eliquis #8 Diverticulitis, status post lower anterior resection, takedown of splenic flexure and partial omentectomy #9. Alcohol abuse with alcohol withdrawal #11. Recent history dark black stools the possibility of upper GI bleeding #12. Altered mental status, related to metabolic encephalopathy, neurology is following #13. History of diverticular disease #14. History of EtOH abuse Recommendation: Continue present supportive care measures. Continue ventilatory support. Continue hemodynamic support. Patient is now off vasopressin, and we'll likely discontinue norepinephrine Continue warming blankets for hypothermia. Continue Solu-Cortef. We'll cut down the dose to 50 mg IV push every 12 hours. Continue antibiotics and antifungal therapy. Change Lasix to Diamox. Prognosis remains extremely poor and guarded. Instructed nursing staff to hold propofol, sedation holiday, and assess mental status today. Critical care time is over 30 minutes. Time with Patient: Greater than 30
--- NOTE | 2020-03-02 16:05 | PN ---
PROGRESS NOTE DATE OF SERVICE: 03/02/2020 This 64-year-old gentleman admitted with low anterior resection had multiple issues, at this time. The patient has acute hypoxic hypercarbic respiratory failure. Patient bilateral pleural effusion. Patient has cirrhosis liver and ascites. Patient being closely monitored. Patient on mechanical ventilation. The patient also has metabolic alkalosis. Dr. Menchaca is following the patient closely. Past medical history reviewed. REVIEW OF SYSTEM: Could not be taken, the patient mechanically ventilated and sedated. MEDICATIONS: Current medications reviewed and include: Diamox, Peridex, daptomycin, iron sulfate, fluconazole, Solu-Cortef. Zosyn IV, Aldactone, Flomax. PHYSICAL EXAMINATION: Patient is mechanically ventilated and sedated. Pulse 49. Blood pressure 138/52, respiration 13, temperature 98.8, pulse ox 99% on 40% FiO2. Vent settings are noted. HEENT: Conjunctivae normal. NECK: No JVD. CARDIOVASCULAR: S1, S2 muffled. RESPIRATORY SYSTEM: Breath sounds diminished at the bases. Bilateral scattered rhonchi and crackles. ABDOMEN: Soft. Nontender. NERVOUS SYSTEM: Mechanically sedated. LABS: WBC 12.2, hemoglobin 9.1, pH of 7.61. Sodium 140, potassium 3.3. ASSESSMENT: 1. Status post low anterior resection for diverticulitis. 2. Acute hypoxic respiratory failure from abdominal sepsis and severe sepsis and hypotension and septic shock. 3. Ascites secondary to cirrhosis of the liver status post paracentesis. 4. Status post abdominal paracentesis. 5. Bilateral pleural effusion status post thoracocentesis. 6. Acute metabolic alkalosis, multifactorial. 7. Possible ileus. 8. History of nicotine dependence. 9. History of chronic obstructive pulmonary disease. 10.History of alcoholic hepatitis. 11.Hyponatremia. 12.Microcytic anemia. 13.Hypoalbuminemia with mild protein calorie malnutrition. 14.Acute deep venous thrombosis of the left distal popliteal vein on IV heparin. 15.Acute alcohol withdrawal symptoms present on admission. 16.Right lower lobe pneumonia. 17.Leukemoid reaction. 18.Abnormal CT scan of the abdomen. RECOMMENDATIONS AND DISCUSSION: Recommend to continue current medications, management. Symptomatic treatment. Continue with vent changes per Dr. Menchaca. Diamox is added by Dr. Menchaca. Continue to monitor fluid/electrolyte balance closely. Continue with Lovenox. Continue IV Zosyn. Guarded prognosis. Further recommendations to follow. MMODL / IJN: [id number] /
[2020-03-02] MEDS: TAMSULOSIN 0.4 MG CAP.ER.24H PO SCH (22:31)
[2020-03-02] MEDS ORDERED: Potassium Replacement Protocol 1 EACH MISC MISCELLANE PRN (23:44)
[2020-03-03 00:08] LABS: Glucose,Whole Blood 109 mg/dL (75-99)
[2020-03-03] MEDS: POTASSIUM CHLORIDE 20 MEQ in WATER FOR INJECTION 1 100ML.BAG IVPB SCH ×3 (00:12→04:13)
[2020-03-03] MEDS: INSULIN ASPART (NovoLOG) 100 UNIT/ML VIAL SQ SCH ×4 (00:12→18:39)
[2020-03-03] MEDS: PIPERACILLIN-TAZOBACTAM 3.375 GM in SODIUM CHLORIDE 0.9% 100 ML IVPB SCH ×3 (00:12→17:49)
[2020-03-03] MEDS: DAPTOmycin 350 MG in SODIUM CHLORIDE 0.9% 50 ML IVPB SCH (00:31)
--- NOTE | 2020-03-03 04:47 | PN ---
PROGRESS NOTE DATE OF SERVICE: 03/02/2020 REASON FOR FOLLOWUP: Pneumonia and abdominal wall cellulitis. INTERVAL HISTORY: Patient is currently afebrile. The patient is hemodynamically stable. FiO2 is currently stable at 40%. No significant pleural effusion, ( ) reported by nursing staff. PHYSICAL EXAMINATION: Blood pressure ( ) with a pulse of 66, temperature 97.3. He is 98% on 40% FiO2. General description is a middle-aged male, intubated on the vent. Respiratory system: Unlabored breathing, decreased breath sounds at the base, no wheeze. HEART: S1, S2. Regular rate and rhythm. ABDOMEN: Soft. Mildly distended. No guarding or rigidity EXTREMITIES: No edema of the feet. LABS: Hemoglobin 9.8, white count 12.2 with a BUN of 23, creatinine 0.85. DIAGNOSTIC IMPRESSION AND PLAN: Patient with acute respiratory failure which is multifactorial ( ) and concern for underlying aspiration ( ) abdominal wall cellulitis. Patient is covered with Zosyn and Diflucan. Overall, white count showing a downward trend. To continue and monitor clinical course closely. Continue supportive care. MMODL / IJN: [id number] /
[2020-03-03 04:53] LABS: ABG HCO3 29 mmol/L (21-25); ABG Oxygen Saturation 99.9 % (94-97); ABG PCO2 37 mmHg (35-45); ABG PH 7.51 (7.35-7.45); ABG PO2 116 mmHg (83-108); ABG TCO2 30 mmol/L (19-24)
[2020-03-03 05:25] LABS: Basophils % (A) 0 %; Eosinophils # (A) 0.1 k/uL (0-0.7); Eosinophils % (A) 0 %; HCT 28.9 % (39.0-53.0); HGB 8.9 gm/dL (13.0-17.5); Hypochromasia Marked; Lymphocytes # (A) 1.4 k/uL (1.0-4.8); Lymphocytes % (A) 10 %; MCHC 30.7 g/dL (31.0-37.0); Macrocytosis Marked; Mean Platelet Volume 9.5; Monocytes # (A) 0.8 k/uL (0-1.0); Monocytes % (A) 6 %; Neutrophils # (A) 11.3 k/uL (1.3-7.7); Neutrophils % (A) 82 %; Platelet Count 238 k/uL (150-450); Poikilocytosis Slight; RBC 2.69 m/uL (4.30-5.90); RDW 15.5 % (11.5-15.5); WBC 13.8 k/uL (3.8-10.6)
[2020-03-03 05:30] LABS: MCV 107.5 fL (80.0-100.0)
[2020-03-03 05:44] LABS: Calcium 7.7 mg/dL (8.4-10.2); Magnesium 1.9 mg/dL (1.6-2.3); Phosphorus 4.3 mg/dL (2.5-4.5); Potassium 3.6 mmol/L (3.5-5.1)
[2020-03-03 05:54] LABS: Glucose,Whole Blood 106 mg/dL (75-99)
[2020-03-03 05:59] LABS: Allen Test Performed? no
[2020-03-03] MEDS: FERROUS SULFATE ORAL ELIXIR 300 MG/5 ML CUP PO SCH ×2 (06:43→17:48)
[2020-03-03] MEDS: MAGNESIUM SULFATE-D5W PMX 1 GM in DEXTROSE/WATER 1 100ML.BAG IVPB SCH ×2 (06:44→09:39)
--- NOTE | 2020-03-03 07:25 | XR ---
EXAMINATION TYPE: XR chest 1V DATE OF EXAM: 03/03/2020 COMPARISON: 02/22/2020 HISTORY: Shortness TECHNIQUE: Single frontal view of the chest is obtained. FINDINGS: ET and NG tube stable. Atherosclerotic change aorta. Diffuse interstitial pattern with smitha ateral infiltrate and pleural effusion stable. Chronic rib deformities noted. IMPRESSION: Stable diffuse pleural-parenchymal changes correlate for CHF versus pneumonia.
[2020-03-03] MEDS: THIAMINE 100 MG/ML 2 ML VIAL IVP SCH (09:38)
[2020-03-03] MEDS: acetaZOLAMIDE 250 MG TAB PO SCH ×2 (09:38→20:43)
[2020-03-03] MEDS: FLUCONAZOLE IN NACL,ISO-OSM 100 MG in SALINE 1 50ML.BAG IVPB SCH (09:38)
[2020-03-03] MEDS: ENOXAPARIN 60 MG/0.6 ML SYRINGE SQ SCH ×2 (09:39→20:43)
[2020-03-03] MEDS: CHLORHEXIDINE GLUCONATE 15 ML CUP MUCOUS MEM SCH ×2 (09:42→20:43)
[2020-03-03] MEDS: PANTOPRAZOLE 40 MG/10 ML VIAL IVP SCH ×2 (09:42→20:44)
[2020-03-03] MEDS: HYDROCORTISONE SUCCINATE 100 MG/2 ML VIAL IV SCH ×2 (09:42→20:43)
[2020-03-03 11:06] LABS: ABG PH 7.61 (7.35-7.45)
--- NOTE | 2020-03-03 11:14 | P.PN ---
Subjective Progress Note Date: 03/03/20 CHIEF COMPLAINT: Diverticulitis HISTORY OF PRESENT ILLNESS: Patient is status post lower anterior resection, takedown of splenic flexure and partial omentectomy on 02/07/2020. The morning of 02/26/20 patient was transferred to the ICU after STEVE KUMAR was called. Patient had become hypothermic and hypotensive. Patient become unresponsive they lost pulse and CPR was initiated. Patient did require to be intubated. Patient is currently intubated and sedated. Patient remains in the ICU intubated and sedated. He had 150 mL residual yesterday. Today he appears to be tolerating tube feedings after nursing staff has flushed the NG tube. He is having dark liquidy stools. His tube feedings are currently at 10 mL per hour. Discussed with dietitian and to fitting goal will be sent today. Pulmonary service has added Diamox and IV fluids for contraction metabolic alkalosis and slight respiratory alkalosis. Patient still requiring pressor support. Patient is afebrile. WBC 13.8 PHYSICAL EXAM: VITAL SIGNS: Reviewed. GENERAL: Well-developed in no acute distress. HEENT: No sclera icterus. Extraocular movements grossly intact. Moist buccal mucosa. Head is atraumatic, normocephalic. ABDOMEN: Abdomen is soft and distended. Incision clean dry and intact. NEUROLOGIC: Patient is intubated and sedated ASSESSMENT: 1. Cardiopulmonary arrest and acute hypoxic respiratory failure secondary to septic shock. 2. Diverticulitis status post lower anterior resection, takedown of splenic flexure and partial omentectomy on 02/07/2020 3. Patient's abdominal distention likely related to ileus, ascites from his liver cirrhosis and possible hernia. 4. Alcohol abuse with alcohol withdrawal 5. New left leg DVT during this admission anticoagulated with Xarelto 6. Possible ileus 7. Black stools. Resolved. No evidence of upper GI bleed on EGD. EGD was normal 8. Altered mental status likely due to alcohol withdrawal syndrome. Patient evaluated by neurology 9. Possible right lower lobe pneumonia 10. Severe protein calorie malnutrition continue ensure 11. Liver cirrhosis with abdominal ascites status post paracentesis PLAN: -Dietitian to titrate tube feedings to goal -Continue supportive care Physician Optometrist Owner note has been reviewed by physician. Signing provider agrees with the documented findings, assessment, and plan of care. Objective - Vital Signs Vital signs: Vital Signs Temp 98.8 F 03/03/20 08:00 Pulse 81 03/03/20 10:00 Resp 15 03/03/20 10:00 BP 73/44 03/03/20 10:00 Pulse Ox 92 L 03/03/20 10:00 Intake & Output 03/02/20 03/03/20 03/03/20 18:59 06:59 18:59 Intake Total 1356 1787.075 422 Output Total 768 528 130 Balance 588 1259.075 292 Weight 58 kg Intake: IV 1346 1586 412 DAPTOmycin 350 mg In 50 Sodium Chloride 0.9% 50 ml @ 100 mls/hr IVPB Q24H [facility] Rx#:[id number] Normal Saline Carrier 120 100 40 Piperacillin-Tazobactam 3 100 .375 gm In Sodium Chloride 0.9% 100 ml @ 25 mls/hr IVPB Q8HR [facility] Rx# :[id number] Potassium Chloride 20 meq 300 In Water For Injection 1 100ml.bag @ 50 mls/hr IVPB Q2H [facility] Rx#: [id number] Pressure bag 36 36 12 Sodium Chloride 0.9% 1, 1190 1000 360 000 ml @ 100 mls/hr IV . Q10H [facility] Rx#:[id number] Intake, IV Titration 51.075 Amount Norepinephrine 32 mg In 51.075 Sodium Chloride 0.9% 218 ml @ 0.05 MCG/KG/MIN 1. 359 mls/hr IV .Q24H [facility] Rx#:[id number] Tube Feeding 10 90 10 Other 60 Output: Urine 765 527 130 Stool 3 1 Other: Voiding Method Indwelling Catheter Indwelling Catheter Indwelling Catheter # Voids 1 # Bowel Movements 0 1 1 ABP, PAP, CO, CI - Last Documented Arterial Blood Pressure 98/50 - Labs CBC & Chem 7: 03/03/20 05:00 03/03/20 05:00 Labs: Abnormal Lab Results - Last 24 Hours (Table) 03/02/20 03/02/20 03/03/20 Range/Units 12:09 21:50 00:06 WBC (3.8-10.6) k/uL RBC (4.30-5.90) m/uL Hgb (13.0-17.5) gm/dL Hct (39.0-53.0) % MCV (80.0-100.0) fL MCHC (31.0-37.0) g/dL Neutrophils # (1.3-7.7) k/uL Macrocytosis ABG pH (7.35-7.45) ABG pO2 (83-108) mmHg ABG HCO3 (21-25) mmol/L ABG Total CO2 (19-24) mmol/L ABG O2 Saturation (94-97) % Potassium 2.8 L (3.5-5.1) mmol/L Chloride (98-107) mmol/L Glucose (74-99) mg/dL POC Glucose (mg/dL) 117 H 109 H (75-99) mg/dL Calcium (8.4-10.2) mg/dL 03/03/20 03/03/20 03/03/20 Range/Units 04:50 05:00 05:00 WBC 13.8 H (3.8-10.6) k/uL RBC 2.69 L (4.30-5.90) m/uL Hgb 8.9 L (13.0-17.5) gm/dL Hct 28.9 L (39.0-53.0) % MCV 107.5 H (80.0-100.0) fL MCHC 30.7 L (31.0-37.0) g/dL Neutrophils # 11.3 H (1.3-7.7) k/uL Macrocytosis Marked A ABG pH 7.51 H (7.35-7.45) ABG pO2 116 H (83-108) mmHg ABG HCO3 29 H (21-25) mmol/L ABG Total CO2 30 H (19-24) mmol/L ABG O2 Saturation 99.9 H (94-97) % Potassium (3.5-5.1) mmol/L Chloride 113 H (98-107) mmol/L Glucose 100 H (74-99) mg/dL POC Glucose (mg/dL) (75-99) mg/dL Calcium 7.7 L (8.4-10.2) mg/dL 03/03/20 Range/Units 05:52 WBC (3.8-10.6) k/uL RBC (4.30-5.90) m/uL Hgb (13.0-17.5) gm/dL Hct (39.0-53.0) % MCV (80.0-100.0) fL MCHC (31.0-37.0) g/dL Neutrophils # (1.3-7.7) k/uL Macrocytosis ABG pH (7.35-7.45) ABG pO2 (83-108) mmHg ABG HCO3 (21-25) mmol/L ABG Total CO2 (19-24) mmol/L ABG O2 Saturation (94-97) % Potassium (3.5-5.1) mmol/L Chloride (98-107) mmol/L Glucose (74-99) mg/dL POC Glucose (mg/dL) 106 H (75-99) mg/dL Calcium (8.4-10.2) mg/dL Microbiology - Last 24 Hours (Table) 02/25/20 23:06 Blood Culture - Final Blood No Growth after 144 hours 02/26/20 10:25 Blood Culture - Preliminary Blood No Growth after 120 hours 02/26/20 10:21 Blood Culture - Preliminary Blood No Growth after 120 hours
[2020-03-03] MEDS: SODIUM CHLORIDE 0.9% 1,000 ML IV SCH (13:36)
[2020-03-03 13:39] LABS: Glucose,Whole Blood 117 mg/dL (75-99)
--- NOTE | 2020-03-03 15:35 | P.PN ---
Subjective Progress Note Date: 03/03/20 Principal diagnosis: Intermediate probability VQ scan, rule out possibility of pulmonary embolism This is a 64-year-old white male patient status post low anterior resection for strictures and diverticular disease, and this is postoperative day #6. Following his surgery on February 08 patient had a thrombus discomfort within the distal popliteal vein in his left leg, on the liver night patient had a CT angiogram of the chest which was a suboptimal study and did not reveal any large saddle all of central pulmonary emboli. The computed tomography scan showed evidence of small bilateral pleural effusions and multifocal groundglass opacities that could relate to pulmonary edema and/or pneumonia. His chest x- ray from February 11 showed bilateral infiltrates that could be consistent with pneumonia or heart failure. VQ scan showed indeterminate probability for pulmonary embolism. Patient has been confused, apparently he does have history of chronic EtOH, but it has been 60 since his admission, he remains very confused, he is on 3 L of oxygen and the pulse ox of 95%, he was started on heparin infusion for DVT in his left leg. We did not think there was a pulmonar y embolism based on his workup. His brain CT showed no acute intracranial abnormality. In addition there is a possibility of GI bleeding as the patient has been passing some dark stools. Is not appear to be in any respiratory distress, he remains lethargic, confused. Neurology is following, EEGs in progress. Dr. Araujo is planning on EGD tomorrow for evaluation of black stools. On 02/14/2020 patient seen in follow-up on general medical surgical floor his heparin drip is off, his 0.9 normal saline running at 75 ML per hour, appears to be more awake on today's exam, although still confused, she is only oriented to percent, no agitation. No signs of respiratory difficulty, he is on 3 L of oxygen pulse ox is 95%, hemodynamically stable, his abdomen is slightly tender postsurgery, his incision covered with dressing, his been afebrile, breathing is nonlabored, lung sounds reveal a few basilar crackles, no rhonchi or wheezing. Surgery is planned and on EGD today, neurology is following, EEG revealed background slowing of moderate degree suggestive of generalized cerebral dysfunction related to toxic metabolic encephalopathy. Today's hemoglobin is 8.6, had one bowel movement this morning. On 02/15/2020 patient seen in follow-up on general medical surgical floor, patient had EGD done yesterday which did not reveal any active bleeding, patient was restarted on heparin infusion for evidence of DVT in his lower extremity, no worsening dyspnea, patient is still on and off lethargic, but appears to be in no acute distress. He is on 3 L of oxygen pulse ox of 95%, his been afebrile, completed chest pain. No hemoptysis. Today's hemoglobin is 9.0. On 02/25/2020 we were reconsulted in view of significant clinical deterioration last night, rapid response team was called, alva gama was activated at 0243 in the morning on 02/26/2020. Apparently patient was having ongoing abdominal pain for the past few days prior to the event, he was believed to have ileus. His abdominal CT of abdomen and pelvis was done on 02/19/2020 showing postoperative changes in the sigmoid colon, proximal to this level there was abnormal thickening of the right colon, some thickened small bowel loops were also present, no is no evidence of free air, there was evidence of increased amount of ascites. There was interval development of bilateral pleural effusions and associated atelectasis. Past few days patient also developed a low urine output urology also consulted on the case for difficult Lemus insertion and possible urinary retention. Yesterday on 02/25/2020 ultrasound abdomen showed moderate ascites in the right flank. His abdomen continued to be more distended and painful, patient was eating some oral intake, however his blood pressures were running on the lower side, his urine output continued to be low, there was paracentesis planned a possibility of ascites. Last night patient developed hypothermia, and hypotension. Patient became unresponsive, and there was no pal pable pulse. CPR was started and immediately patient became responsive, CPR was stopped, patient was emergently intubated placed on mechanical ventilator and transferred to the intensive care unit. ID service has been following, patient's antibiotic coverage includes daptomycin. This morning he seen in the intensive care unit, sedated, intubated, on assist-control mode of ventilation, with a rate of 16, tidal planning is 500, FiO2 of 50%, and PEEP of 5. This was blood gases showed pO2 of 88, pCO2 of 29, and pH is 7.34. Patient is hypotensive, he is requiring levo fed at 0.43 mics per kilo per minute over 25 mics per minute, Diprivan and is at 40 mics per kilo per minute, patient has rec eived fluid resuscitation, yesterday she had received 2 L of fluid from the surgical team earlier in the day, and he received additional 2 L bolus after his cardiac pulmonary arrest early this morning, his maintenance IV fluids are currently infusing at a rate of 75 ML per hour. Patient kidney to be hypotensive, we gave him an additional liter fluid bolus today, and she will be started on a vasopressin infusion for refractory hypotension. Blood cultures have been sent, pending at this time. Prior blood cultures and sputum culture. Patient's abdomen remains very tense, distended, firm, with the area of redness and discoloration, and induration near the mid abdominal surgical incision. Avinash srinivasan has a lot of generalized swelling, he is weeping from the catheter insertion sites. He had right femoral central line catheter placed by Dr. Jarrell at the bedside and a right radial art line placed for close hemodynamic monitoring. This morning's lab work has been reviewed showing squamous cell count of 21.8, hemoglobin of 8.9, sodium of 137, potassium is 4.1, chloride is 119, CO2 is 10, BUN is 10 and creatinine 0.64, patient was given 2 A of sodium bicarbonate. On 03/03/2020 patient seen in follow-up in the intensive care unit, he remains intubated, and sedated, on assist-control mode of ventilation, with a rate of 10, tidal lung is 500, FiO2 of 50% and PEEP of 5, this morning blood gases revealed pO2 of 116, pCO2 37, and pH of 7.51. His current IVs include 0.9 normal seen at a rate of 10 ML per hour, levothyroid is a 6 mics per minute, propofol is currently off, and patient is receiving nutritional support with vital AF 1.2 at a rate of 10 ML per hour. Today's chest x-ray shows stable diffuse interstitial pattern with bilateral infiltrates and pleural effusion that are stable in appearance. His labs have been reviewed showing with blood cell count of 13.8, hemoglobin of 8.9, sodium 144, potassium is 3.6, chloride is 113, and the rest of electrolytes and renal profile were unremarkable. Patient is passing some liquid green stools, abdomen is nontender, mid abdominal incision is clean dry and intact, he has been tolerating tube feedings. Patient is on antibiotics including daptomycin, Diflucan, and Zosyn Objective - Vital Signs Vital signs: Vital Signs Temp 98.8 F 03/03/20 08:00 Pulse 84 03/03/20 11:00 Resp 14 03/03/20 11:00 BP 73/44 03/03/20 11:00 Pulse Ox 94 L 03/03/20 11:00 Intake & Output 03/02/20 03/03/20 03/03/20 18:59 06:59 18:59 Intake Total 1356 1787.075 422 Output Total 768 528 130 Balance 588 1259.075 292 Weight 58 kg 58 kg Intake: IV 1346 1586 412 DAPTOmycin 350 mg In 50 Sodium Chloride 0.9% 50 ml @ 100 mls/hr IVPB Q24H [facility] Rx#:[id number] Normal Saline Carrier 120 100 40 Piperacillin-Tazobactam 3 100 .375 gm In Sodium Chloride 0.9% 100 ml @ 25 mls/hr IVPB Q8HR [facility] Rx# :[id number] Potassium Chloride 20 meq 300 In Water For Injection 1 100ml.bag @ 50 mls/hr IVPB Q2H [facility] Rx#: [id number] Pressure bag 36 36 12 Sodium Chloride 0.9% 1, 1190 1000 360 000 ml @ 100 mls/hr IV . Q10H [facility] Rx#:[id number] Intake, IV Titration 51.075 Amount Norepinephrine 32 mg In 51.075 Sodium Chloride 0.9% 218 ml @ 0.05 MCG/KG/MIN 1. 359 mls/hr IV .Q24H [facility] Rx#:[id number] Tube Feeding 10 90 10 Other 60 Output: Urine 765 527 130 Stool 3 1 Other: Voiding Method Indwelling Catheter Indwelling Catheter Indwelling Catheter # Voids 1 # Bowel Movements 0 1 1 ABP, PAP, CO, CI - Last Documented Arterial Blood Pressure 108/51 - Exam GENERAL EXAM: Intubated sedated 64-year-old white male, on assist-control mode of ventilation, in no acute distress HEAD: Normocephalic/atraumatic. EYES: Normal reaction of pupils, equal size. Conjunctiva pink, sclera white. NOSE: Clear with pink turbinates. THROAT: No erythema or exudates. NECK: No masses, no JVD, no thyroid enlargement, no adenopathy. CHEST: No chest wall deformity. Symmetrical expansion. LUNGS: Equal air entry with no crackles, wheeze, rhonchi or dullness. CVS: Regular rate and rhythm, normal S1 and S2, no gallops, no murmurs, no rubs ABDOMEN: Less distended and firm on today's exam compared to last week, no tenderness and indurated discoloration and redness near the surgical incision on the right abdomen significantly improved since last week, mid abdominal incision with yvonne intact EXTREMITIES: No clubbing, 1+ upper and lower extremity edema, patient has a weeping edema with the drainage from the catheter insertion sites no cyanosis, 2+ pulses and upper and lower extremities. MUSCULOSKELETAL: Muscle strength and tone normal. SPINE: No scoliosis or deformity SKIN: No rashes CENTRAL NERVOUS SYSTEM: Unable to assess, patient is sedated and intubated. No focal deficits, tone is normal in all 4 extremities. - Labs CBC & Chem 7: 03/03/20 05:00 03/03/20 05:00 Labs: Abnormal Lab Results - Last 24 Hours (Table) 03/02/20 03/02/20 03/03/20 Range/Units 05:21 21:50 00:06 WBC (3.8-10.6) k/uL RBC (4.30-5.90) m/uL Hgb (13.0-17.5) gm/dL Hct (39.0-53.0) % MCV (80.0-100.0) fL MCHC (31.0-37.0) g/dL Neutrophils # (1.3-7.7) k/uL Macrocytosis ABG pH 7.61 H* (7.35-7.45) ABG pO2 (83-108) mmHg ABG HCO3 (21-25) mmol/L ABG Total CO2 (19-24) mmol/L ABG O2 Saturation (94-97) % Potassium 2.8 L (3.5-5.1) mmol/L Chloride (98-107) mmol/L Glucose (74-99) mg/dL POC Glucose (mg/dL) 109 H (75-99) mg/dL Calcium (8.4-10.2) mg/dL 03/03/20 03/03/20 03/03/20 Range/Units 04:50 05:00 05:00 WBC 13.8 H (3.8-10.6) k/uL RBC 2.69 L (4.30-5.90) m/uL Hgb 8.9 L (13.0-17.5) gm/dL Hct 28.9 L (39.0-53.0) % MCV 107.5 H (80.0-100.0) fL MCHC 30.7 L (31.0-37.0) g/dL Neutrophils # 11.3 H (1.3-7.7) k/uL Macrocytosis Marked A ABG pH 7.51 H (7.35-7.45) ABG pO2 116 H (83-108) mmHg ABG HCO3 29 H (21-25) mmol/L ABG Total CO2 30 H (19-24) mmol/L ABG O2 Saturation 99.9 H (94-97) % Potassium (3.5-5.1) mmol/L Chloride 113 H (98-107) mmol/L Glucose 100 H (74-99) mg/dL POC Glucose (mg/dL) (75-99) mg/dL Calcium 7.7 L (8.4-10.2) mg/dL 03/03/20 03/03/20 Range/Units 05:52 13:37 WBC (3.8-10.6) k/uL RBC (4.30-5.90) m/uL Hgb (13.0-17.5) gm/dL Hct (39.0-53.0) % MCV (80.0-100.0) fL MCHC (31.0-37.0) g/dL Neutrophils # (1.3-7.7) k/uL Macrocytosis ABG pH (7.35-7.45) ABG pO2 (83-108) mmHg ABG HCO3 (21-25) mmol/L ABG Total CO2 (19-24) mmol/L ABG O2 Saturation (94-97) % Potassium (3.5-5.1) mmol/L Chloride (98-107) mmol/L Glucose (74-99) mg/dL POC Glucose (mg/dL) 106 H 117 H (75-99) mg/dL Calcium (8.4-10.2) mg/dL Microbiology - Last 24 Hours (Table) 02/26/20 10:25 Blood Culture - Final Blood No Growth after 144 hours 02/26/20 10:21 Blood Culture - Final Blood No Growth after 144 hours 02/25/20 23:06 Blood Culture - Final Blood No Growth after 144 hours Assessment and Plan Plan: Assessment: #1. Acute hypoxic respiratory failure related to septic shock, with a possibility of abdominal sepsis, although cultures from the paracentesis fluid have been negative #2. Acute cardiac pulmonary arrest on 02/26/2020 related to septic shock, patient required a brief CPR, was emergently intubated and fluid resuscitated, remains on high amount of vasopressor support currently in the form of norepinephrine and vasopressin #3. Increased bibasilar opacities and new small bilateral pleural effusions on the chest x-ray, related to fluid overload #4. Abdominal pain and distention, improved post-paracentesis, patient had over 8 L of fluid drained from his peritoneal cavity #5. Massive ascites, status post high-volume paracentesis #6. Non-anion gap metabolic acidosis related to septic shock, and has received IV fluids and bicarbonate infusion, resolved #7. Volume contraction alkalosis, secondary to paracentesis and diuretic therapy #8. Elevated d-dimer, nonspecific, doubt possibility of pulmonary embolism. CTA chest was suboptimal but did not reveal any evidence of central pulmonary e mbolism, VQ scan showed intermediate probability for pulmonary embolism, patient was found to have a new left leg DVT, was on Eliquis which we will place on hold right now in view of acute decompensation, and possible need for surgical intervention in view of septic shock, with a suspicion of intra-abdominal source #9. Diverticulitis, status post lower anterior resection, takedown of splenic flexure and partial omentectomy #10. Alcohol abuse with alcohol withdrawal #11. Recent history dark black stools the possibility of upper GI bleeding #12. Altered mental status, related to metabolic encephalopathy, neurology is following #13. History of diverticular disease #14. History of EtOH abuse Plan: Continue current medical treatment, will proceed with spontaneous awakening trial, and spontaneous breathing trial with pressure support of 5 and CPAP of 5 with patient wakes up. Wean vasopressor support. Continue with nutritional support, optimize his tube feedings to goal. Patient is tolerating tube feedings well so far. Continue with antibiotics per ID service recommendations, patient has been afebrile, hemodynamically he has been more stable, continue anticoagulation, and Diamox. We'll continue to closely follow, overall prognosis is guarded I performed a history & physical examination of the patient and discussed their management with my nurse practitioner, Felipa Matute. I reviewed the nurse practitioner's note and agree with the documented findings and plan of care. Lung sounds are positive for clear breath sounds throughout the lung arias. The findings and the impression was discussed with the patient. I attest to the documentation by the nurse practitioner. Time with Patient: Greater than 30
[2020-03-03] MEDS: NOREPINEPHRINE 32 MG in SODIUM CHLORIDE 0.9% 218 ML IV SCH (16:57)
[2020-03-03 17:58] LABS: Glucose,Whole Blood 109 mg/dL (75-99)
[2020-03-03] MEDS: TAMSULOSIN 0.4 MG CAP.ER.24H PO SCH (20:43)
--- NOTE | 2020-03-03 23:08 | PN ---
PROGRESS NOTE DATE OF SERVICE: 03/03/2020 REASON FOR FOLLOWUP: Pneumonia and abdominal wall cellulitis. INTERVAL HISTORY: The patient is currently afebrile. The patient did have blood pressure. FiO2 is currently stable at 40% has been reported by nursing staff. PHYSICAL EXAMINATION: Blood pressure 117/58 with a pulse of 73, temperature 98. He is 97% on 40% FiO2. General description is a middle-aged male, intubated on the vent. Respiratory system: Unlabored breathing, decreased breath sounds in the bases. No wheeze. Heart S1, S2. Regular rate and rhythm. ABDOMEN: Soft, no tenderness. LABS: White count 13.8, BUN of 19, creatinine 1.07. DIAGNOSTIC IMPRESSION AND PLAN: Patient with acute respiratory failure multifactorial in this patient status post cardiac arrest and concern for aspiration pneumonia. Sputum has been negative abdominal wall cellulitis. Patient is covered with Zosyn and daptomycin and Diflucan to continue and monitor clinical course closely. Continue supportive care. MMODL / IJN: [id number] /
[2020-03-04] MEDS: DAPTOmycin 350 MG in SODIUM CHLORIDE 0.9% 50 ML IVPB SCH ×2 (00:20→23:25)
[2020-03-04] MEDS: INSULIN ASPART (NovoLOG) 100 UNIT/ML VIAL SQ SCH ×5 (00:20→23:50)
[2020-03-04] MEDS: PIPERACILLIN-TAZOBACTAM 3.375 GM in SODIUM CHLORIDE 0.9% 100 ML IVPB SCH ×4 (00:20→23:51)
[2020-03-04 00:21] LABS: Glucose,Whole Blood 121 mg/dL (75-99)
[2020-03-04] MEDS: SODIUM CHLORIDE 0.9% 1,000 ML IV SCH ×3 (00:21→17:24)
--- NOTE | 2020-03-04 01:00 | P.PN ---
Progress Note - Text Progress Note Date: 03/03/20 - Chief Complaint Abdominal surgery History of presenting complaint: This is a pleasant 64-year-old patient of . Patient been having complication to his diverticulitis. computed tomography scan on January 08. Showed some possible stricture. Hepatic steatosis. February 06- undergone low anterior resection. Epidural for pain control.patient had elevated d-dimer. Pulmonary embolism felt to be unlikely. CT was suboptimal. VQ scan was intermediate probability. Leg DVT treated with IV heparin. Had some dark stools.also patient had had altered mental status. [place] to be encephalopathy.computed tomography scan of the brain was unremarkable. EGD-no evidence of bleeding. Patient more awake after dose of baclofen cutback. changed over to xarelto.x-ray showing ileus. Patient did start having bowel movements. Repeat computed tomography scan of abdomen showed possible enteritis./Colitis.as abdomen appeared distended. Lemus catheter was placed. No urine retention.-patient become hypotensive. Had a brief cardiac and pulmonary arrest Moved to ICU. Had to be intubated. Drips include norepinephrine, vasopressin, propofol. NG tube to suction.also treated for aspiration pneumonia and abdominal wall cellulitis.ascitic fluid that was tapped was unremarkable.4.5 L of acetic fluid removed Today. ICU-on the ventilator. FiO2 40 and a PEEP of 5. Has been off sedation for last 24 hours. Does respond to painful stimuli. Good urine output. 2 feeding at 10 mL an hour. Telemetry shows sinus rhythm. On CPAP. .small dose of Levothroid. Review of systems: Patient intubated Active Medications Acetazolamide (Acetazolamide 250 Mg Tab) 250 mg PO BID [facility] Last Admin: 03/03/20 20:43 Dose: 250 mg Documented by: Chlorhexidine Gluconate (Chlorhexidine Gluconate 15 Ml Cup) 15 ml MUCOUS MEM BID [facility] Last Admin: 03/03/20 20:43 Dose: 15 ml Documented by: Enoxaparin Sodium (Enoxaparin 60 Mg/0.6 Ml Syringe) 60 mg SQ BID [facility] Last Admin: 03/03/20 20:43 Dose: 60 mg Documented by: Ferrous Sulfate (Ferrous Sulfate Oral Elixir 300 Mg/5 Ml Cup) 300 mg PO BID- W/MEALS [facility] Last Admin: 03/03/20 17:48 Dose: 300 mg Documented by: Hydrocortisone Sodium Succinate (Hydrocortisone Succinate 100 Mg/2 Ml Vial) 50 mg IV Q12HR [facility] Last Admin: 03/03/20 20:43 Dose: 50 mg Documented by: Piperacillin Sod/Tazobactam (Sod 3.375 gm/ Sodium Chloride) 100 mls @ 25 mls/hr IVPB Q8HR [facility] Last Admin: 03/04/20 00:20 Dose: 25 mls/hr Documented by: Daptomycin 350 mg/ Sodium (Chloride) 50 mls @ 100 mls/hr IVPB Q24H [facility]; Protocol Last Admin: 03/04/20 00:20 Dose: 100 mls/hr Documented by: Propofol 1,000 mg/ IV Solution 100 mls @ 0 mls/hr IV .Q0M [facility]; Protocol Last Admin: 03/02/20 04:22 Dose: 30 mcg/kg/min, 12.276 mls/hr Documented by: Fluconazole/Sodium Chloride (100 mg/ IV Solution) 50 mls @ 50 mls/hr IVPB DAILY [facility] Last Admin: 03/03/20 09:38 Dose: 50 mls/hr Documented by: Norepinephrine Bitartrate 32 (mg/ Sodium Chloride) 250 mls @ 1.359 mls/hr IV .Q24H [facility]; Protocol Last Admin: 03/03/20 16:57 Dose: Not Given Documented by: Sodium Chloride (Saline 0.9%) 1,000 mls @ 100 mls/hr IV .Q10H [facility] Last Admin: 03/04/20 00:21 Dose: 100 mls/hr Documented by: Insulin Aspart (Insulin Aspart (Novolog) 100 Unit/Ml Vial) 0 unit SQ Q6H [facility]; Protocol Last Admin: 03/04/20 00:20 Dose: Not Given Documented by: Metoclopramide HCl (Metoclopramide 5 Mg/Ml 2 Ml Vial) 10 mg IVP Q6HR PRN PRN Reason: Nausea and Vomiting Miscellaneous Information (Magnesium Replacement Protocol 1 Each Misc) 1 each MISCELLANE DAILY PRN; Protocol PRN Reason: Per Protocol Miscellaneous Information (Potassium Replacement Protocol 1 Each Misc) 1 each MISCELLANE DAILY PRN; Protocol PRN Reason: Per Protocol Miscellaneous Information (Potassium Replacement Protocol 1 Each Misc) 1 each MISCELLANE DAILY PRN; Protocol PRN Reason: Per Protocol Nicotine Polacrilex (Nicotine Polacrilex 2 Mg Gum) 2 mg BUCCAL Q4HR PRN PRN Reason: Nicotine Cravings Ondansetron HCl (Ondansetron 4 Mg/2 Ml Vial) 4 mg IVP Q8HR PRN PRN Reason: Nausea And Vomiting Pantoprazole Sodium (Pantoprazole 40 Mg/10 Ml Vial) 40 mg IVP BID [facility] Last Admin: 03/03/20 20:44 Dose: 40 mg Documented by: Tamsulosin HCl (Tamsulosin 0.4 Mg Cap.Er.24h) 0.4 mg PO HS [facility] Last Admin: 03/03/20 20:43 Dose: 0.4 mg Documented by: Thiamine HCl (Thiamine 100 Mg/Ml 2 Ml Vial) 100 mg IVP DAILY [facility] Last Admin: 03/03/20 09:38 Dose: 100 mg Documented by: Physical examination: VITAL SIGNS: 36.7, 81, 10, 109/54, 95% on the ventilator GENERAL: Laying in bed, intubated EYES: Pupils equal. Conjunctiva normal. HEENT: External appearance of nose and ears normal, oral cavity endotracheal tube and OG tube. NECK: JVD unable to assess; masses not palpable. HEART: First and second heart sounds are normal; no edema. LUNGS: Respiratory rate increased; decreased breath sounds. ABDOMEN: Soft, nontender, , area of subcutaneous swelling around the incision site. PSYCH: Patient sedated INVESTIGATIONS, reviewed in the clinical context: white count 13.8 hemoglobin 8.9 platelets 238 potassium 3.6 creatinine 1.07 Previous testing EEG shows evidence of encephalopathy Computed tomography scan of the brain-mild atrophy 2-D echocardiogram-EF 55-60% VQ scan-intermediate probability Chest CTA-suboptimal study. Doppler ultrasound-positive for thrombus within the distal popliteal vein White count 10.2 hemoglobin 14.2 potassium 3.6 B12 some 08 Previously AST 129 ALT 50 Computed tomography scan of the abdomen from January 08-possible colitis, diverticulitis, some esophagitis, hepatic steatosis Abdominal x-ray film personally reviewed by me shows ileus Assessment: -Acute hypoxic respiratory failure, requiring ventilator support-slow to respond -Septic shock -Status post low anterior resection, for diverticulitis complication -Postop ileus- -Chronic nicotine dependence patient cigarette smoker -Clinical emphysema, asymptomatic -Suspect alcoholic hepatitis -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 -Acute DVT in the left distal popliteal vein -Acute alcohol withdrawal syndrome with improvement -Right lower lobe pneumonia -Mild protein calorie malnutrition from decreased oral intake -4.5 L of paracentesis is done. Plan: continue with IV daptomycin, Diflucan, IV Zosyn. Off sedation. Small does of levo fed. Prognosis guarded. Thank you Dr. Lee
[2020-03-04 04:31] LABS: Glucose,Whole Blood 132 mg/dL (75-99)
[2020-03-04 04:45] LABS: HCT 28.3 % (39.0-53.0); Hypochromasia Marked; MCH 34.3 pg (25.0-35.0); MCHC 31.6 g/dL (31.0-37.0); MCV 108.5 fL (80.0-100.0); Mean Platelet Volume 9.9; Platelet Count 202 k/uL (150-450); RBC 2.61 m/uL (4.30-5.90); RDW 15.2 % (11.5-15.5); WBC 14.3 k/uL (3.8-10.6)
[2020-03-04 04:46] LABS: Macrocytosis Marked
[2020-03-04 04:55] LABS: African American GFR (CKD) >90 (>60 ml/min/1.73 sqM); Anion Gap 1 mmol/L; Blood Urea Nitrogen 19 mg/dL (9-20); Calcium 7.9 mg/dL (8.4-10.2); Carbon Dioxide 28 mmol/L (22-30); Chloride 115 mmol/L (98-107); Glucose 125 mg/dL (74-99); Magnesium 2.3 mg/dL (1.6-2.3); Non-African American GFR(CKD) 78 (>60 ml/min/1.73 sqM); Phosphorus 3.6 mg/dL (2.5-4.5); Sodium 144 mmol/L (137-145)
[2020-03-04 05:35] LABS: Potassium 2.6 mmol/L (3.5-5.1)
[2020-03-04 05:59] LABS: ABG Base Excess 2.8 mmol/L; ABG HCO3 26 mmol/L (21-25); ABG Oxygen Saturation 99.1 % (94-97); ABG PCO2 34 mmHg (35-45); ABG PH 7.49 (7.35-7.45); ABG PO2 102 mmHg (83-108); ABG TCO2 27 mmol/L (19-24)
[2020-03-04] MEDS: FERROUS SULFATE ORAL ELIXIR 300 MG/5 ML CUP PO SCH ×2 (06:15→17:24)
[2020-03-04] MEDS: POTASSIUM BICARBONATE/CIT AC 20 MEQ TABLET.EFF NG-TUBE SCH ×5 (06:16→23:52)
--- NOTE | 2020-03-04 08:18 | XR ---
EXAMINATION TYPE: XR chest 1V portable DATE OF EXAM: 03/04/2020 COMPARISON: Prior chest x-ray 03/03/2020 HISTORY: Intubated TECHNIQUE: Single frontal view of the chest is obtained. FINDINGS: Basilar density persists, there is obscured medial aspect of the left hemidiaphragm. No ev ident pneumothorax. Endotracheal tube and NG tube are overlying appropriate positions. Patient is rot ated. Cardiac mediastinal silhouette, pulmonary vascularity and allison are unchanged. Aorta is dense. IMPRESSION: Basilar atelectasis, probable left pleural effusion, correlate to exclude pneumonia vers us edema. There may be some improvement in aeration at the right lung base.
[2020-03-04] MEDS: acetaZOLAMIDE 250 MG TAB PO SCH ×2 (08:52→20:03)
[2020-03-04] MEDS: ENOXAPARIN 60 MG/0.6 ML SYRINGE SQ SCH ×2 (08:53→20:03)
[2020-03-04] MEDS: CHLORHEXIDINE GLUCONATE 15 ML CUP MUCOUS MEM SCH ×2 (08:53→20:03)
[2020-03-04] MEDS: PANTOPRAZOLE 40 MG/10 ML VIAL IVP SCH ×2 (08:54→20:03)
[2020-03-04] MEDS: THIAMINE 100 MG/ML 2 ML VIAL IVP SCH (08:54)
[2020-03-04] MEDS: HYDROCORTISONE SUCCINATE 100 MG/2 ML VIAL IV SCH ×4 (08:54→23:25)
--- NOTE | 2020-03-04 10:24 | P.PN ---
Subjective Progress Note Date: 03/04/20 Principal diagnosis: Intermediate probability VQ scan, rule out possibility of pulmonary embolism This is a 64-year-old white male patient status post low anterior resection for strictures and diverticular disease, and this is postoperative day #6. Following his surgery on February 08 patient had a thrombus discomfort within the distal popliteal vein in his left leg, on the liver night patient had a CT angiogram of the chest which was a suboptimal study and did not reveal any large saddle all of central pulmonary emboli. The computed tomography scan showed evidence of small bilateral pleural effusions and multifocal groundglass opacities that could relate to pulmonary edema and/or pneumonia. His chest x- ray from February 11 showed bilateral infiltrates that could be consistent with pneumonia or heart failure. VQ scan showed indeterminate probability for pulmonary embolism. Patient has been confused, apparently he does have history of chronic EtOH, but it has been 60 since his admission, he remains very confused, he is on 3 L of oxygen and the pulse ox of 95%, he was started on heparin infusion for DVT in his left leg. We did not think there was a pulmonar y embolism based on his workup. His brain CT showed no acute intracranial abnormality. In addition there is a possibility of GI bleeding as the patient has been passing some dark stools. Is not appear to be in any respiratory distress, he remains lethargic, confused. Neurology is following, EEGs in progress. Dr. Araujo is planning on EGD tomorrow for evaluation of black stools. On 02/14/2020 patient seen in follow-up on general medical surgical floor his heparin drip is off, his 0.9 normal saline running at 75 ML per hour, appears to be more awake on today's exam, although still confused, she is only oriented to percent, no agitation. No signs of respiratory difficulty, he is on 3 L of oxygen pulse ox is 95%, hemodynamically stable, his abdomen is slightly tender postsurgery, his incision covered with dressing, his been afebrile, breathing is nonlabored, lung sounds reveal a few basilar crackles, no rhonchi or wheezing. Surgery is planned and on EGD today, neurology is following, EEG revealed background slowing of moderate degree suggestive of generalized cerebral dysfunction related to toxic metabolic encephalopathy. Today's hemoglobin is 8.6, had one bowel movement this morning. On 02/15/2020 patient seen in follow-up on general medical surgical floor, patient had EGD done yesterday which did not reveal any active bleeding, patient was restarted on heparin infusion for evidence of DVT in his lower extremity, no worsening dyspnea, patient is still on and off lethargic, but appears to be in no acute distress. He is on 3 L of oxygen pulse ox of 95%, his been afebrile, completed chest pain. No hemoptysis. Today's hemoglobin is 9.0. On 02/25/2020 we were reconsulted in view of significant clinical deterioration last night, rapid response team was called, alva gama was activated at 0243 in the morning on 02/26/2020. Apparently patient was having ongoing abdominal pain for the past few days prior to the event, he was believed to have ileus. His abdominal CT of abdomen and pelvis was done on 02/19/2020 showing postoperative changes in the sigmoid colon, proximal to this level there was abnormal thickening of the right colon, some thickened small bowel loops were also present, no is no evidence of free air, there was evidence of increased amount of ascites. There was interval development of bilateral pleural effusions and associated atelectasis. Past few days patient also developed a low urine output urology also consulted on the case for difficult Lemus insertion and possible urinary retention. Yesterday on 02/25/2020 ultrasound abdomen showed moderate ascites in the right flank. His abdomen continued to be more distended and painful, patient was eating some oral intake, however his blood pressures were running on the lower side, his urine output continued to be low, there was paracentesis planned a possibility of ascites. Last night patient developed hypothermia, and hypotension. Patient became unresponsive, and there was no pal pable pulse. CPR was started and immediately patient became responsive, CPR was stopped, patient was emergently intubated placed on mechanical ventilator and transferred to the intensive care unit. ID service has been following, patient's antibiotic coverage includes daptomycin. This morning he seen in the intensive care unit, sedated, intubated, on assist-control mode of ventilation, with a rate of 16, tidal planning is 500, FiO2 of 50%, and PEEP of 5. This was blood gases showed pO2 of 88, pCO2 of 29, and pH is 7.34. Patient is hypotensive, he is requiring levo fed at 0.43 mics per kilo per minute over 25 mics per minute, Diprivan and is at 40 mics per kilo per minute, patient has rec eived fluid resuscitation, yesterday she had received 2 L of fluid from the surgical team earlier in the day, and he received additional 2 L bolus after his cardiac pulmonary arrest early this morning, his maintenance IV fluids are currently infusing at a rate of 75 ML per hour. Patient kidney to be hypotensive, we gave him an additional liter fluid bolus today, and she will be started on a vasopressin infusion for refractory hypotension. Blood cultures have been sent, pending at this time. Prior blood cultures and sputum culture. Patient's abdomen remains very tense, distended, firm, with the area of redness and discoloration, and induration near the mid abdominal surgical incision. Avinash srinivasan has a lot of generalized swelling, he is weeping from the catheter insertion sites. He had right femoral central line catheter placed by Dr. Jarrell at the bedside and a right radial art line placed for close hemodynamic monitoring. This morning's lab work has been reviewed showing squamous cell count of 21.8, hemoglobin of 8.9, sodium of 137, potassium is 4.1, chloride is 119, CO2 is 10, BUN is 10 and creatinine 0.64, patient was given 2 A of sodium bicarbonate. On 03/03/2020 patient seen in follow-up in the intensive care unit, he remains intubated, and sedated, on assist-control mode of ventilation, with a rate of 10, tidal lung is 500, FiO2 of 50% and PEEP of 5, this morning blood gases revealed pO2 of 116, pCO2 37, and pH of 7.51. His current IVs include 0.9 normal seen at a rate of 10 ML per hour, levothyroid is a 6 mics per minute, propofol is currently off, and patient is receiving nutritional support with vital AF 1.2 at a rate of 10 ML per hour. Today's chest x-ray shows stable diffuse interstitial pattern with bilateral infiltrates and pleural effusion that are stable in appearance. His labs have been reviewed showing with blood cell count of 13.8, hemoglobin of 8.9, sodium 144, potassium is 3.6, chloride is 113, and the rest of electrolytes and renal profile were unremarkable. Patient is passing some liquid green stools, abdomen is nontender, mid abdominal incision is clean dry and intact, he has been tolerating tube feedings. Patient is on antibiotics including daptomycin, Diflucan, and Zosyn On 03/04/2020 patient seen in follow-up in the intensive care unit, his been off all sedation for 48 hours, he remains very minimally responsive, she opens his eyes slightly to painful stimuli, still very drowsy, encephalopathic, remains on ventilator support, current vent settings are assist control mode of ventilation with a rate of 10, tidal legs 500, FiO2 of 40% and PEEP of 5, and dyspneic blood gases showed pO2 of 102, pCO2 34 and pH of 7.49. Patient is currently on 0.9 normal saline at rate of 100 ML per hour, levo fed is at 10 mics per minute, no other drips, vital AF for nutritional support at 17 with a goal 17. Has not been able to wean off the vasopressors, patient remains on Solu-Cortef Cortef at 50 mg every 12 hours, we'll adjust the dose to 26 hours. Patient is tolerating tube feedings, he is passing liquid bowel movements, fecal management system was inserted, is on antibiotics in the form of Zosyn and daptomycin. he has been afebrile, no new growth on his cultures. Abdomen is much less distended, is soft, his mid abdominal incision is clean dry and intact, yvonne are intact, Lemus catheter is in place patient is producing 15-35 ML per hour. Chest x-ray showing basilar atelectasis, probable left pleural effusion, and there is some improvement in aeration of the right lung base. Remains on on anticoagulation in the form of Lovenox 60 mg twice daily. In sinus mechanism on the monitor. Patient has significant amount of generalized edema in his upper and lower extremities, and truncal edema. Objective - Vital Signs Vital signs: Vital Signs Temp 96.9 F L 03/04/20 04:00 Pulse 75 03/04/20 07:00 Resp 10 L 03/04/20 07:00 BP 73/44 03/03/20 16:00 Pulse Ox 98 03/04/20 07:00 Intake & Output 03/03/20 03/04/20 03/04/20 18:59 06:59 18:59 Intake Total 536 1461.06 120 Output Total 671 464 25 Balance -135 997.06 95 Weight 58 kg 63.6 kg Intake: IV 516 1146 103 Normal Saline Carrier 120 10 Pressure bag 36 36 3 Sodium Chloride 0.9% 1, 360 1100 100 000 ml @ 100 mls/hr IV . Q10H [facility] Rx#:[id number] Intake, IV Titration 38.06 Amount Norepinephrine 32 mg In 38.06 Sodium Chloride 0.9% 218 ml @ 0.05 MCG/KG/MIN 1. 359 mls/hr IV .Q24H [facility] Rx#:[id number] Tube Feeding 20 187 17 Other 90 Output: Urine 670 462 25 Stool 1 2 Other: Voiding Method Indwelling Catheter Indwelling Catheter # Bowel Movements 1 1 ABP, PAP, CO, CI - Last Documented Arterial Blood Pressure 109/54 - Exam GENERAL EXAM: Intubated sedated 64-year-old white male, on assist-control mode of ventilation, in no acute distress HEAD: Normocephalic/atraumatic. EYES: Normal reaction of pupils, equal size. Conjunctiva pink, sclera white. NOSE: Clear with pink turbinates. THROAT: No erythema or exudates. NECK: No masses, no JVD, no thyroid enlargement, no adenopathy. CHEST: No chest wall deformity. Symmetrical expansion. LUNGS: Equal air entry with no crackles, wheeze, rhonchi or dullness. CVS: Regular rate and rhythm, normal S1 and S2, no gallops, no murmurs, no rubs ABDOMEN: Less distended and firm on today's exam compared to last week, no tenderness and indurated discoloration and redness near the surgical incision on the right abdomen significantly improved since last week, mid abdominal incision with yvonne intact EXTREMITIES: No clubbing, 1+ upper and lower extremity edema, patient has a weeping edema with the drainage from the catheter insertion sites no cyanosis, 2+ pulses and upper and lower extremities. MUSCULOSKELETAL: Muscle strength and tone normal. SPINE: No scoliosis or deformity SKIN: No rashes CENTRAL NERVOUS SYSTEM: Unable to assess, patient is sedated and intubated. No focal deficits, tone is normal in all 4 extremities. - Labs CBC & Chem 7: 03/04/20 04:25 03/04/20 04:25 Labs: Abnormal Lab Results - Last 24 Hours (Table) 03/02/20 03/03/20 03/03/20 Range/Units 05:21 13:37 17:56 WBC (3.8-10.6) k/uL RBC (4.30-5.90) m/uL Hgb (13.0-17.5) gm/dL Hct (39.0-53.0) % MCV (80.0-100.0) fL Macrocytosis ABG pH 7.61 H* (7.35-7.45) ABG pCO2 (35-45) mmHg ABG HCO3 (21-25) mmol/L ABG Total CO2 (19-24) mmol/L ABG O2 Saturation (94-97) % Potassium (3.5-5.1) mmol/L Chloride (98-107) mmol/L Glucose (74-99) mg/dL POC Glucose (mg/dL) 117 H 109 H (75-99) mg/dL Calcium (8.4-10.2) mg/dL 03/04/20 03/04/20 03/04/20 Range/Units 00:19 04:25 04:25 WBC 14.3 H (3.8-10.6) k/uL RBC 2.61 L (4.30-5.90) m/uL Hgb 9.0 L (13.0-17.5) gm/dL Hct 28.3 L (39.0-53.0) % MCV 108.5 H (80.0-100.0) fL Macrocytosis Marked A ABG pH (7.35-7.45) ABG pCO2 (35-45) mmHg ABG HCO3 (21-25) mmol/L ABG Total CO2 (19-24) mmol/L ABG O2 Saturation (94-97) % Potassium 2.6 L* (3.5-5.1) mmol/L Chloride 115 H (98-107) mmol/L Glucose 125 H (74-99) mg/dL POC Glucose (mg/dL) 121 H (75-99) mg/dL Calcium 7.9 L (8.4-10.2) mg/dL 03/04/20 03/04/20 Range/Units 04:30 05:53 WBC (3.8-10.6) k/uL RBC (4.30-5.90) m/uL Hgb (13.0-17.5) gm/dL Hct (39.0-53.0) % MCV (80.0-100.0) fL Macrocytosis ABG pH 7.49 H (7.35-7.45) ABG pCO2 34 L (35-45) mmHg ABG HCO3 26 H (21-25) mmol/L ABG Total CO2 27 H (19-24) mmol/L ABG O2 Saturation 99.1 H (94-97) % Potassium (3.5-5.1) mmol/L Chloride (98-107) mmol/L Glucose (74-99) mg/dL POC Glucose (mg/dL) 132 H (75-99) mg/dL Calcium (8.4-10.2) mg/dL Microbiology - Last 24 Hours (Table) 02/26/20 10:25 Blood Culture - Final Blood No Growth after 144 hours 02/26/20 10:21 Blood Culture - Final Blood No Growth after 144 hours Assessment and Plan Plan: Assessment: #1. Acute hypoxic respiratory failure related to septic shock, with a possibility of abdominal sepsis, although cultures from the paracentesis fluid have been negative #2. Acute cardiac pulmonary arrest on 02/26/2020 related to septic shock, patient required a brief CPR, was emergently intubated and fluid resuscitated, remains on high amount of vasopressor support currently in the form of norepinephrine and vasopressin #3. Increased bibasilar opacities and new small bilateral pleural effusions on the chest x-ray, related to fluid overload #4. Abdominal pain and distention, improved post-paracentesis, patient had over 8 L of fluid drained from his peritoneal cavity #5. Massive ascites, status post high-volume paracentesis #6. Non-anion gap metabolic acidosis related to septic shock, and has received IV fluids and bicarbonate infusion, resolved #7. Volume contraction alkalosis, secondary to paracentesis and diuretic therapy #8. Elevated d-dimer, nonspecific, doubt possibility of pulmonary embolism. CTA chest was suboptimal but did not reveal any evidence of central pulmonary embolism, VQ scan showed intermediate probability for pulmonary embolism, patient was found to have a new left leg DVT, was on Eliquis which we will place on hold right now in view of acute decompensation, and possible need for surgical intervention in view of septic shock, with a suspicion of intra-abdom inal source #9. Diverticulitis, status post lower anterior resection, takedown of splenic flexure and partial omentectomy #10. Alcohol abuse with alcohol withdrawal #11. Recent history dark black stools the possibility of upper GI bleeding #12. Altered mental status, related to metabolic encephalopathy, neurology is following #13. History of diverticular disease #14. History of EtOH abuse Plan: Continue current medical treatment, antibiotics per ID service recommendations, patient tolerated several hours of pressure-support trials yesterday, placed back on assist control overnight, vital signs have been stable, proceed with another pressure-support trial today with pressure-support 5. We'll increase hydrocortisone dose to 50 mg every 6 hours, wean levo fed, optimize nutrition, hold all sedatives and narcotics. Continue GI and DVT prophylaxis. Continue close monitoring in the intensive care unit. roasterman prognosis is extremely guarded I performed a history & physical examination of the patient and discussed their management with my nurse practitioner, Felipa Matute. I reviewed the nurse practitioner's note and agree with the documented findings and plan of care. Lung sounds are positive for clear breath sounds throughout the lung arias. The findings and the impression was discussed with the patient. I attest to the documentation by the nurse practitioner. Time with Patient: Greater than 30
[2020-03-04] MEDS: FLUCONAZOLE IN NACL,ISO-OSM 100 MG in SALINE 1 50ML.BAG IVPB SCH (11:01)
[2020-03-04 12:17] LABS: Glucose,Whole Blood 123 mg/dL (75-99)
--- NOTE | 2020-03-04 12:33 | P.PN ---
Subjective Progress Note Date: 03/04/20 CHIEF COMPLAINT: Diverticulitis HISTORY OF PRESENT ILLNESS: Patient is status post lower anterior resection, takedown of splenic flexure and partial omentectomy on 02/07/2020. The morning of 02/26/20 patient was transferred to the ICU after STEVE KUMAR was called. Patient had become hypothermic and hypotensive. Patient become unresponsive they lost pulse and CPR was initiated. Patient did require to be intubated. Patient is currently intubated and sedated. Patient remains in the ICU intubated. He has been off of sedation for 48 hours. And is still requiring pressor support. He is receiving tube feeds through NG tube. Patient is having a large amount of liquidy stools. Fecal management system was inserted. Abdomen is more distended today with evidence of ascites. Afebrile WBC 14.3 potassium 2.6 PHYSICAL EXAM: VITAL SIGNS: Reviewed. GENERAL: Well-developed in no acute distress. HEENT: No sclera icterus. Extraocular movements grossly intact. Moist buccal mucosa. Head is atraumatic, normocephalic. ABDOMEN: Abdomen is soft and distended. Ascites present. Incision clean dry and intact. NEUROLOGIC: Patient is intubated and sedated ASSESSMENT: 1. Cardiopulmonary arrest and acute hypoxic respiratory failure secondary to septic shock. 2. Diverticulitis status post lower anterior resection, takedown of splenic flexure and partial omentectomy on 02/07/2020 3. Patient's abdominal distention likely related to ileus, ascites from his liver cirrhosis and possible hernia. 4. Alcohol abuse with alcohol withdrawal 5. New left leg DVT during this admission 6. Possible ileus 7. Black stools. Resolved. No evidence of upper GI bleed on EGD. EGD was normal 8. Altered mental status likely due to alcohol withdrawal syndrome. Patient evaluated by neurology 9. Possible right lower lobe pneumonia 10. Severe protein calorie malnutrition continue ensure 11. Liver cirrhosis with abdominal ascites status post paracentesis 12. Hypokalemia continue potassium replacement per protocol PLAN: -Abdominal ultrasound with paracentesis ordered due to increase in abdominal ascites -Dietitian to titrate tube feedings to goal -Continue supportive care Physician Cashier note has been reviewed by physician. Signing provider agrees with the documented findings, assessment, and plan of care. Objective - Vital Signs Vital signs: Vital Signs Temp 96.9 F L 03/04/20 04:00 Pulse 75 03/04/20 12:00 Resp 15 03/04/20 12:00 BP 73/44 03/03/20 16:00 Pulse Ox 96 03/04/20 12:00 Intake & Output 03/03/20 03/04/20 03/04/20 18:59 06:59 18:59 Intake Total 536 1461.06 545.053 Output Total 671 464 108 Balance -135 997.06 437.053 Weight 58 kg 63.6 kg 63.6 kg Intake: IV 516 1146 503 Normal Saline Carrier 120 10 Pressure bag 36 36 3 Sodium Chloride 0.9% 1, 360 1100 500 000 ml @ 100 mls/hr IV . Q10H JOANA Rx#:[id number] Intake, IV Titration 38.06 25.053 Amount Norepinephrine 32 mg In 38.06 25.053 Sodium Chloride 0.9% 218 ml @ 0.05 MCG/KG/MIN 1. 359 mls/hr IV .Q24H JOANA Rx#:[id number] Tube Feeding 20 187 17 Other 90 Output: Urine 670 462 107 Stool 1 2 1 Other: Voiding Method Indwelling Catheter Indwelling Catheter Indwelling Catheter # Bowel Movements 1 1 ABP, PAP, CO, CI - Last Documented Arterial Blood Pressure 128/62 - Labs CBC & Chem 7: 03/04/20 04:25 03/04/20 04:25 Labs: Abnormal Lab Results - Last 24 Hours (Table) 03/03/20 03/03/20 03/04/20 Range/Units 13:37 17:56 00:19 WBC (3.8-10.6) k/uL RBC (4.30-5.90) m/uL Hgb (13.0-17.5) gm/dL Hct (39.0-53.0) % MCV (80.0-100.0) fL Macrocytosis ABG pH (7.35-7.45) ABG pCO2 (35-45) mmHg ABG HCO3 (21-25) mmol/L ABG Total CO2 (19-24) mmol/L ABG O2 Saturation (94-97) % Potassium (3.5-5.1) mmol/L Chloride (98-107) mmol/L Glucose (74-99) mg/dL POC Glucose (mg/dL) 117 H 109 H 121 H (75-99) mg/dL Calcium (8.4-10.2) mg/dL 03/04/20 03/04/20 03/04/20 Range/Units 04:25 04:25 04:30 WBC 14.3 H (3.8-10.6) k/uL RBC 2.61 L (4.30-5.90) m/uL Hgb 9.0 L (13.0-17.5) gm/dL Hct 28.3 L (39.0-53.0) % MCV 108.5 H (80.0-100.0) fL Macrocytosis Marked A ABG pH (7.35-7.45) ABG pCO2 (35-45) mmHg ABG HCO3 (21-25) mmol/L ABG Total CO2 (19-24) mmol/L ABG O2 Saturation (94-97) % Potassium 2.6 L* (3.5-5.1) mmol/L Chloride 115 H (98-107) mmol/L Glucose 125 H (74-99) mg/dL POC Glucose (mg/dL) 132 H (75-99) mg/dL Calcium 7.9 L (8.4-10.2) mg/dL 03/04/20 03/04/20 Range/Units 05:53 12:14 WBC (3.8-10.6) k/uL RBC (4.30-5.90) m/uL Hgb (13.0-17.5) gm/dL Hct (39.0-53.0) % MCV (80.0-100.0) fL Macrocytosis ABG pH 7.49 H (7.35-7.45) ABG pCO2 34 L (35-45) mmHg ABG HCO3 26 H (21-25) mmol/L ABG Total CO2 27 H (19-24) mmol/L ABG O2 Saturation 99.1 H (94-97) % Potassium (3.5-5.1) mmol/L Chloride (98-107) mmol/L Glucose (74-99) mg/dL POC Glucose (mg/dL) 123 H (75-99) mg/dL Calcium (8.4-10.2) mg/dL Microbiology - Last 24 Hours (Table) 02/26/20 10:25 Blood Culture - Final Blood No Growth after 144 hours 02/26/20 10:21 Blood Culture - Final Blood No Growth after 144 hours
[2020-03-04] MEDS ORDERED: Potassium Replacement Protocol 1 EACH MISC MISCELLANE PRN (14:20)
--- NOTE | 2020-03-04 14:23 | CT ---
EXAMINATION TYPE: CT brain wo con DATE OF EXAM: 03/04/2020 HISTORY: unresponsive CT DLP: 1070.4 mGycm. Automated Exposure Control for Dose Reduction was Utilized. TECHNIQUE: CT scan of the head is performed without contrast. COMPARISON: CT brain February 11, 2010. FINDINGS: There is no acute intracranial hemorrhage or midline shift identified. There is diffuse v entricular and sulcal prominence consistent with diffuse age-related cerebral atrophy. There is low- attenuation in the periventricular white matter consistent with chronic small vessel ischemic change. The globes are intact and the visualized sinuses are clear. Patchy cerumen right external auditory canal redemonstrated. New endotracheal and nasogastric tubes noted on localizer. IMPRESSION: No acute intracranial hemorrhage or midline shift. There is moderate diffuse cerebral a trophy and mild to moderate chronic small vessel ischemic change redemonstrated. No significant inte rval change from prior CT.
--- NOTE | 2020-03-04 15:16 | P.PN ---
Subjective Progress Note Date: 03/04/20 The ICU team wanted neurology to reside the patient since the patient has altered mental status. Per the patient nurse patient has no movements on examination. Since signing off from patient on 02/22/20: On 02/26/2020, became hypothermic and hypotensive. Patient became unresponsive loss pulselessness. He required the intubation as well as Levophed. He's been off the sedation for at least 48 hours and he has very minimal response. It is noted the bilaterally C2 he opens his eyes slightly to painful stimuli and remains to be very drowsy at. He continues to be on a vent setting and the cystic control. His abdominal distention is a improving. He continues to have significant amount of generalized edema of the upper and lower extremity as well as truncal. Patient oliver virus on 02/27/2020 was nondetected. The hepatitis A, B, and C are nonreactive. Objective - Vital Signs Vital signs: Vital Signs Temp 96.9 F L 03/04/20 04:00 Pulse 78 03/04/20 14:00 Resp 14 03/04/20 14:00 BP 107/58 03/04/20 14:00 Pulse Ox 96 03/04/20 14:00 Intake & Output 03/03/20 03/04/20 03/04/20 18:59 06:59 18:59 Intake Total 536 1461.06 845.053 Output Total 671 464 188 Balance -135 997.06 657.053 Weight 58 kg 63.6 kg 63.6 kg Intake: IV 516 1146 803 Normal Saline Carrier 120 10 Pressure bag 36 36 3 Sodium Chloride 0.9% 1, 360 1100 800 000 ml @ 100 mls/hr IV . Q10H JOANA Rx#:[id number] Intake, IV Titration 38.06 25.053 Amount Norepinephrine 32 mg In 38.06 25.053 Sodium Chloride 0.9% 218 ml @ 0.05 MCG/KG/MIN 1. 359 mls/hr IV .Q24H JOANA Rx#:[id number] Tube Feeding 20 187 17 Other 90 Output: Urine 670 462 187 Stool 1 2 1 Other: Voiding Method Indwelling Catheter Indwelling Catheter Indwelling Catheter # Bowel Movements 1 1 ABP, PAP, CO, CI - Last Documented Arterial Blood Pressure 127/61 - Exam GENERAL: The patient is lying and is not in acute distress. LUNG: Intubated on ventilator but on sponatenous breathing during my examination. Clear to auscultation bilaterally no wheezing noted throughout. Not labored breathing. Integumentary: Generalized edema. NEUROLOGICAL: Limited because of his condition. Higher mental function: GCS:9 (E3, VT1, M5). The patient opens to painful stimuli. Patient has not followed commands or attempting to verbalize. Cranial nerves: The pupils are round, 3-4mm, equal and reactive to light. Could not assess visual field or EOM movement beause of lack of cooperation. Gaze is midline. No facial weakness is noted bilaterally. Did not assess the rest of the greater because of lack of cooperation. Motor: Gait deferred because of his condition. The strength he was able to lift up the right upper extremity above gravity to painful stimuli on the left upper extremity he was able to lift up to hand wrist above bed. I felt he was moving the right upper history better than the left upper extremity. With painful stimuli he was able to plantarflex and dorsiflex of his ankles bilaterally. Cerebellum: Unable to assess. Sensation: With painful stimuli is seems normal throughout. Reflexes (right/left): 1+ throughout. Plantars are mute bilaterally. - Labs CBC & Chem 7: 03/04/20 04:25 03/04/20 12:36 Labs: Abnormal Lab Results - Last 24 Hours (Table) 03/03/20 03/04/20 03/04/20 Range/Units 17:56 00:19 04:25 WBC (3.8-10.6) k/uL RBC (4.30-5.90) m/uL Hgb (13.0-17.5) gm/dL Hct (39.0-53.0) % MCV (80.0-100.0) fL Macrocytosis ABG pH (7.35-7.45) ABG pCO2 (35-45) mmHg ABG HCO3 (21-25) mmol/L ABG Total CO2 (19-24) mmol/L ABG O2 Saturation (94-97) % Potassium 2.6 L* (3.5-5.1) mmol/L Chloride 115 H (98-107) mmol/L Glucose 125 H (74-99) mg/dL POC Glucose (mg/dL) 109 H 121 H (75-99) mg/dL Calcium 7.9 L (8.4-10.2) mg/dL 03/04/20 03/04/20 03/04/20 Range/Units 04:25 04:30 05:53 WBC 14.3 H (3.8-10.6) k/uL RBC 2.61 L (4.30-5.90) m/uL Hgb 9.0 L (13.0-17.5) gm/dL Hct 28.3 L (39.0-53.0) % MCV 108.5 H (80.0-100.0) fL Macrocytosis Marked A ABG pH 7.49 H (7.35-7.45) ABG pCO2 34 L (35-45) mmHg ABG HCO3 26 H (21-25) mmol/L ABG Total CO2 27 H (19-24) mmol/L ABG O2 Saturation 99.1 H (94-97) % Potassium (3.5-5.1) mmol/L Chloride (98-107) mmol/L Glucose (74-99) mg/dL POC Glucose (mg/dL) 132 H (75-99) mg/dL Calcium (8.4-10.2) mg/dL 03/04/20 03/04/20 Range/Units 12:14 12:36 WBC (3.8-10.6) k/uL RBC (4.30-5.90) m/uL Hgb (13.0-17.5) gm/dL Hct (39.0-53.0) % MCV (80.0-100.0) fL Macrocytosis ABG pH (7.35-7.45) ABG pCO2 (35-45) mmHg ABG HCO3 (21-25) mmol/L ABG Total CO2 (19-24) mmol/L ABG O2 Saturation (94-97) % Potassium 3.0 L (3.5-5.1) mmol/L Chloride (98-107) mmol/L Glucose (74-99) mg/dL POC Glucose (mg/dL) 123 H (75-99) mg/dL Calcium (8.4-10.2) mg/dL Microbiology - Last 24 Hours (Table) 02/26/20 10:25 Blood Culture - Final Blood No Growth after 144 hours 02/26/20 10:21 Blood Culture - Final Blood No Growth after 144 hours Assessment and Plan Assessment: * Altered mental status, likely due cardiac arrest on 02/26/2020 as well as probably superimposed toxic metabolic encephalopathy * Cardiac arrest on 02/26/2020 * History of polysubstance abuse including alcohol, and tobacco. Patient denies marijuana use. * Massive ascites, status post high-volume paracentesis (improvement of abdominal pain s/p paracentesis). * Diverticulitis status post lower anterior resection, takedown of splenic flexure and partial omentectomy * Leukocytosis is trending down * Hypokalemia * Acute hypoxic respiratory failure related to septic shock with the possibility of abdominal sepsis. * Acute DVT left lower extremity, now on Xarelto. * Folate deficiency Plan: * EEG 02/13/20: Reported as moderate background slowing consistent with encephalopathy, no epileptiform activity seen. * Ordered routine EEG. I also ordered a CT of the head. * Ordered TSH and ammonia level. * AST is 36 and ALT is 23 on 03/01/2020. At this time I'll not can repeat it. * I restarted folic acid 1 mg daily for folic acid deficiency. * Continue thiamine daily. * PT and OT. * * ID following. Time with Patient: Less than 30
[2020-03-04] MEDS: POTASSIUM CHLORIDE 20 MEQ in WATER FOR INJECTION 1 100ML.BAG IVPB SCH ×2 (15:39→17:23)
[2020-03-04] MEDS: NOREPINEPHRINE 32 MG in SODIUM CHLORIDE 0.9% 218 ML IV SCH (15:40)
[2020-03-04 17:20] LABS: Glucose,Whole Blood 121 mg/dL (75-99)
--- NOTE | 2020-03-04 17:22 | EEG ---
ELECTROENCEPHALOGRAM REPORT DATE OF SERVICE: 03/04/2020. CLINICAL HISTORY: This is a 64-year-old gentleman who has altered mental status. The video EEG was obtained to evaluate for seizure and epileptiform activity. RELEVANT MEDICATION: The patient is not on any anti-epileptic drugs or centrally acting medication. EEG TYPE: A routine 21 channel EEG was performed with video using the 10/20 electrode placement system. The patient is intubated on a ventilator but not on any sedation. During the awake state, there is no clear posterior dominant rhythm. The background consists of diffuse 0.5-1 hertz [id number] voltage delta activity. There was no physiological stage 2 sleep. There is moderate to significant myogenic artifact throughout the study. INTERICTAL AND ICTAL: None. ACTIVATION PROCEDURE: Photic stimulation did evoke a posterior driving response at multiple low flash frequencies over bilateral posterior leads. Hyperventilation was not performed. CLINICAL INTERPRETATION: This is an abnormal routine EEG. The background slowing is suggestive of severe encephalopathy of unspecified etiology. There are no focal slowing, epileptiform discharges or seizure seen during the study. Clinical correlation is recommended. MMODL / IJN: [id number] / [facility]ALS[facility]
[2020-03-04] MEDS: FOLIC ACID 1 MG TAB OG-TUBE SCH (17:42)
[2020-03-04] MEDS: TAMSULOSIN 0.4 MG CAP.ER.24H PO SCH (20:03)
[2020-03-04] MEDS ORDERED: POTASSIUM CHLORIDE 20 MEQ in WATER FOR INJECTION 1 100ML.BAG IVPB STA (23:00)
--- NOTE | 2020-03-04 23:35 | P.PN ---
Progress Note - Text Progress Note Date: 03/04/20 - Chief Complaint Abdominal surgery History of presenting complaint: This is a pleasant 64-year-old patient of . Patient been having complication to his diverticulitis. computed tomography scan on January 08. Showed some possible stricture. Hepatic steatosis. February 06- undergone low anterior resection. Epidural for pain control.patient had elevated d-dimer. Pulmonary embolism felt to be unlikely. CT was suboptimal. VQ scan was intermediate probability. Leg DVT treated with IV heparin. Had some dark stools.also patient had had altered mental status. [place] to be encephalopathy.computed tomography scan of the brain was unremarkable. EGD-no evidence of bleeding. Patient more awake after dose of baclofen cutback. changed over to xarelto.x-ray showing ileus. Patient did start having bowel movements. Repeat computed tomography scan of abdomen showed possible enteritis./Colitis.as abdomen appeared distended. Lemus catheter was placed. No urine retention.-patient become hypotensive. Had a brief cardiac and pulmonary arrest Moved to ICU. Had to be intubated. Drips include norepinephrine, vasopressin, propofol. NG tube to suction.also treated for aspiration pneumonia and abdominal wall cellulitis.ascitic fluid that was tapped was unremarkable.4.5 L of acetic fluid removed Today. ICU-on the ventilator. FiO2 40, PEEP of 5. Telemetry-sinus rhythm. OG tube feeding at 17 mL an hour. Patient is on norepinephrine drip. Some edema present. Review of systems: Patient intubated Active Medications Acetazolamide (Acetazolamide 250 Mg Tab) 250 mg PO BID [facility] Last Admin: 03/04/20 20:03 Dose: 250 mg Documented by: Chlorhexidine Gluconate (Chlorhexidine Gluconate 15 Ml Cup) 15 ml MUCOUS MEM BID [facility] Last Admin: 03/04/20 20:03 Dose: 15 ml Documented by: Enoxaparin Sodium (Enoxaparin 60 Mg/0.6 Ml Syringe) 60 mg SQ BID [facility] Last Admin: 03/04/20 20:03 Dose: 60 mg Documented by: Ferrous Sulfate (Ferrous Sulfate Oral Elixir 300 Mg/5 Ml Cup) 300 mg PO BID- W/MEALS [facility] Last Admin: 03/04/20 17:24 Dose: 300 mg Documented by: Folic Acid (Folic Acid 1 Mg Tab) 1 mg OG-TUBE DAILY [facility] Last Admin: 03/04/20 17:42 Dose: 1 mg Documented by: Hydrocortisone Sodium Succinate (Hydrocortisone Succinate 100 Mg/2 Ml Vial) 50 mg IV Q6HR [facility] Last Admin: 03/04/20 23:25 Dose: 50 mg Documented by: Piperacillin Sod/Tazobactam (Sod 3.375 gm/ Sodium Chloride) 100 mls @ 25 mls/hr IVPB Q8HR [facility] Last Admin: 03/04/20 15:40 Dose: 25 mls/hr Documented by: Daptomycin 350 mg/ Sodium (Chloride) 50 mls @ 100 mls/hr IVPB Q24H [facility]ANA; Protocol Last Admin: 03/04/20 23:25 Dose: 100 mls/hr Documented by: Fluconazole/Sodium Chloride (100 mg/ IV Solution) 50 mls @ 50 mls/hr IVPB DAILY [facility] Last Admin: 03/04/20 11:01 Dose: 50 mls/hr Documented by: Norepinephrine Bitartrate 32 (mg/ Sodium Chloride) 250 mls @ 1.359 mls/hr IV .Q24H JOANA; Protocol Last Admin: 03/04/20 15:40 Dose: 0.08 mcg/kg/min, 2.175 mls/hr Documented by: Sodium Chloride (Saline 0.9%) 1,000 mls @ 100 mls/hr IV .Q10H [facility] Last Admin: 03/04/20 17:24 Dose: 100 mls/hr Documented by: Potassium Chloride 20 meq/ IV (Solution) 100 mls @ 50 mls/hr IVPB ONCE STA Stop: 03/05/20 00:59 Last Admin: 03/04/20 23:28 Dose: 50 mls/hr Documented by: Insulin Aspart (Insulin Aspart (Novolog) 100 Unit/Ml Vial) 0 unit SQ Q6H [facility]ANA; Protocol Last Admin: 03/04/20 17:19 Dose: Not Given Documented by: Metoclopramide HCl (Metoclopramide 5 Mg/Ml 2 Ml Vial) 10 mg IVP Q6HR PRN PRN Reason: Nausea and Vomiting Miscellaneous Information (Magnesium Replacement Protocol 1 Each Misc) 1 each MISCELLANE DAILY PRN; Protocol PRN Reason: Per Protocol Miscellaneous Information (Potassium Replacement Protocol 1 Each Misc) 1 each MISCELLANE DAILY PRN; Protocol PRN Reason: Per Protocol Miscellaneous Information (Potassium Replacement Protocol 1 Each Misc) 1 each MISCELLANE DAILY PRN; Protocol PRN Reason: Per Protocol Miscellaneous Information (Potassium Replacement Protocol 1 Each Misc) 1 each MISCELLANE DAILY PRN; Protocol PRN Reason: Per Protocol Ondansetron HCl (Ondansetron 4 Mg/2 Ml Vial) 4 mg IVP Q8HR PRN PRN Reason: Nausea And Vomiting Pantoprazole Sodium (Pantoprazole 40 Mg/10 Ml Vial) 40 mg IVP BID [facility] Last Admin: 03/04/20 20:03 Dose: 40 mg Documented by: Potassium Bicarbonate (Potassium Bicarbonate/Cit Ac 20 Meq Tablet.Eff) 20 meq NG-TUBE Q1HR [facility]; Protocol Stop: 03/05/20 00:01 Last Admin: 03/04/20 23:26 Dose: 20 meq Documented by: Tamsulosin HCl (Tamsulosin 0.4 Mg Cap.Er.24h) 0.4 mg PO HS [facility] Last Admin: 03/04/20 20:03 Dose: 0.4 mg Documented by: Thiamine HCl (Thiamine 100 Mg/Ml 2 Ml Vial) 100 mg IVP DAILY [facility] Last Admin: 03/04/20 08:54 Dose: 100 mg Documented by: Physical examination: VITAL SIGNS: 96.4, 11, 127/64, 99% on the ventilator GENERAL: Laying in bed, intubated EYES: Pupils equal. Conjunctiva normal. HEENT: External appearance of nose and ears normal, oral cavity endotracheal tube and OG tube. NECK: JVD unable to assess; masses not palpable. HEART: First and second heart sounds are normal; no edema. LUNGS: Respiratory rate increased; decreased breath sounds. ABDOMEN: Soft, nontender, , area of subcutaneous swelling around the incision site. PSYCH: Patient sedated INVESTIGATIONS, reviewed in the clinical context: White count 14.3 hemoglobin 9 potassium 2.6 creatinine 1.02 Previous testing EEG shows evidence of encephalopathy Computed tomography scan of the brain-mild atrophy 2-D echocardiogram-EF 55-60% VQ scan-intermediate probability Chest CTA-suboptimal study. Doppler ultrasound-positive for thrombus within the distal popliteal vein White count 10.2 hemoglobin 14.2 potassium 3.6 B12 some 08 Previously AST 129 ALT 50 Computed tomography scan of the abdomen from January 08-possible colitis, diverticulitis, some esophagitis, hepatic steatosis Abdominal x-ray film personally reviewed by me shows ileus Sputum growing [place] Assessment: -Acute hypoxic respiratory failure, requiring ventilator support-slow to respond -Septic shock -Status post low anterior resection, for diverticulitis complication -Postop ileus- -Chronic nicotine dependence patient cigarette smoker -Clinical emphysema, asymptomatic -Suspect alcoholic hepatitis -Ascites from alcohol liver disease-status post paracentesis-4.5 L -Mild hyponatremia -Macrocytic anemia. -Acute DVT in the left distal popliteal vein -Acute alcohol withdrawal syndrome with improvement -Right lower lobe pneumonia -Mild protein calorie malnutrition from decreased oral intake Plan: ICU- IV daptomycin, Diflucan, IV Zosyn. Small does of levo fed. Tube feeding. Prognosis guarded. Thank you Dr. Lee
[2020-03-04 23:38] LABS: Glucose,Whole Blood 126 mg/dL (75-99)
--- NOTE | 2020-03-05 01:00 | PN ---
PROGRESS NOTE DATE OF SERVICE: 03/04/2020 REASON FOR FOLLOWUP: Aspiration pneumonia, abdominal wall cellulitis. INTERVAL HISTORY: The patient is currently afebrile. The patient is hemodynamically stable not on pressor support. FiO2 is currently stable. No significant purulent secretion through the ET. He did have some diarrhea though. PHYSICAL EXAMINATION: Blood pressure is 125/64, pulse 86, temperature 97. He is 99% on 40% FiO2. General description is a middle-aged male lying in bed in no distress. RESPIRATORY SYSTEM: Unlabored breathing, decreased breath sounds in the bases, no wheeze. HEART: S1, S2. Regular rate and rhythm. ABDOMEN: Soft, mildly distended. No guarding or rigidity. LABS: Hemoglobin 9.4, white count 14.3, creatinine 1.02. DIAGNOSTIC IMPRESSION AND PLAN: Patient with acute respiratory failure which is multifactorial in this patient status post cardiac arrest, possible aspiration pneumonitis and abdominal wall cellulitis. White count shows slight worsening and we will monitor closely. The patient is currently covered with daptomycin, Diflucan and Zosyn to continue and monitor his clinical course closely. MMODL / IJN: [id number] /
[2020-03-05 04:55] LABS: Anisocytosis Slight; HCT 28.7 % (39.0-53.0); HGB 8.7 gm/dL (13.0-17.5); Hypochromasia Marked; MCH 33.5 pg (25.0-35.0); MCHC 30.5 g/dL (31.0-37.0); Macrocytosis Marked; Mean Platelet Volume 9.5; Platelet Count 239 k/uL (150-450); Poikilocytosis Slight; RBC 2.61 m/uL (4.30-5.90); RDW 16.2 % (11.5-15.5); WBC 13.3 k/uL (3.8-10.6)
[2020-03-05] MEDS: SODIUM CHLORIDE 0.9% 1,000 ML IV SCH ×2 (05:08→14:42)
[2020-03-05 05:13] LABS: African American GFR (CKD) >90 (>60 ml/min/1.73 sqM); Anion Gap 0 mmol/L; Blood Urea Nitrogen 17 mg/dL (9-20); Calcium 7.8 mg/dL (8.4-10.2); Carbon Dioxide 27 mmol/L (22-30); Chloride 118 mmol/L (98-107); Glucose 120 mg/dL (74-99); Non-African American GFR(CKD) >90 (>60 ml/min/1.73 sqM); Potassium 3.3 mmol/L (3.5-5.1); Sodium 145 mmol/L (137-145)
[2020-03-05 05:15] LABS: Glucose,Whole Blood 122 mg/dL (75-99)
[2020-03-05] MEDS: INSULIN ASPART (NovoLOG) 100 UNIT/ML VIAL SQ SCH ×3 (05:15→18:58)
[2020-03-05 05:39] LABS: ABG Base Excess 0.8 mmol/L; ABG HCO3 25 mmol/L (21-25); ABG Oxygen Saturation 98.4 % (94-97); ABG PCO2 34 mmHg (35-45); ABG PH 7.47 (7.35-7.45); ABG PO2 91 mmHg (83-108); ABG TCO2 26 mmol/L (19-24)
[2020-03-05] MEDS: HYDROCORTISONE SUCCINATE 100 MG/2 ML VIAL IV SCH ×3 (05:40→17:01)
[2020-03-05] MEDS: POTASSIUM BICARBONATE/CIT AC 20 MEQ TABLET.EFF NG-TUBE SCH ×2 (05:40→06:48)
[2020-03-05] MEDS: FERROUS SULFATE ORAL ELIXIR 300 MG/5 ML CUP PO SCH ×2 (05:41→16:57)
--- NOTE | 2020-03-05 08:50 | XR ---
EXAMINATION TYPE: XR chest 1V portable DATE OF EXAM: 03/05/2020 COMPARISON: 03/04/2020 HISTORY: Shortness of breath TECHNIQUE: Single frontal view of the chest is obtained. FINDINGS: There is basilar consolidation and pleural effusion which is stable. Heart size normal. ET and NG tube stable. No pneumothorax. Chronic rib deformities are seen and there is an interstitial p attern. Postsurgical change left humerus. IMPRESSION: 1. Diffuse pleural-parenchymal changes are stable consider pneumonia versus CHF.
[2020-03-05] MEDS: CHLORHEXIDINE GLUCONATE 15 ML CUP MUCOUS MEM SCH ×2 (09:47→21:05)
[2020-03-05] MEDS: PANTOPRAZOLE 40 MG/10 ML VIAL IVP SCH ×2 (09:47→21:05)
[2020-03-05] MEDS: PIPERACILLIN-TAZOBACTAM 3.375 GM in SODIUM CHLORIDE 0.9% 100 ML IVPB SCH ×2 (09:47→16:57)
[2020-03-05] MEDS: FOLIC ACID 1 MG TAB OG-TUBE SCH (09:47)
[2020-03-05] MEDS: acetaZOLAMIDE 250 MG TAB PO SCH ×2 (09:48→21:05)
[2020-03-05] MEDS: THIAMINE 100 MG/ML 2 ML VIAL IVP SCH (09:48)
--- NOTE | 2020-03-05 10:16 | P.PN ---
Subjective Progress Note Date: 03/05/20 Principal diagnosis: Intermediate probability VQ scan, rule out possibility of pulmonary embolism This is a 64-year-old white male patient status post low anterior resection for strictures and diverticular disease, and this is postoperative day #6. Following his surgery on February 08 patient had a thrombus discomfort within the distal popliteal vein in his left leg, on the liver night patient had a CT angiogram of the chest which was a suboptimal study and did not reveal any large saddle all of central pulmonary emboli. The computed tomography scan showed evidence of small bilateral pleural effusions and multifocal groundglass opacities that could relate to pulmonary edema and/or pneumonia. His chest x- ray from February 11 showed bilateral infiltrates that could be consistent with pneumonia or heart failure. VQ scan showed indeterminate probability for pulmonary embolism. Patient has been confused, apparently he does have history of chronic EtOH, but it has been 60 since his admission, he remains very confused, he is on 3 L of oxygen and the pulse ox of 95%, he was started on heparin infusion for DVT in his left leg. We did not think there was a pulmonar y embolism based on his workup. His brain CT showed no acute intracranial abnormality. In addition there is a possibility of GI bleeding as the patient has been passing some dark stools. Is not appear to be in any respiratory distress, he remains lethargic, confused. Neurology is following, EEGs in progress. Dr. Araujo is planning on EGD tomorrow for evaluation of black stools. On 02/14/2020 patient seen in follow-up on general medical surgical floor his heparin drip is off, his 0.9 normal saline running at 75 ML per hour, appears to be more awake on today's exam, although still confused, she is only oriented to percent, no agitation. No signs of respiratory difficulty, he is on 3 L of oxygen pulse ox is 95%, hemodynamically stable, his abdomen is slightly tender postsurgery, his incision covered with dressing, his been afebrile, breathing is nonlabored, lung sounds reveal a few basilar crackles, no rhonchi or wheezing. Surgery is planned and on EGD today, neurology is following, EEG revealed background slowing of moderate degree suggestive of generalized cerebral dysfunction related to toxic metabolic encephalopathy. Today's hemoglobin is 8.6, had one bowel movement this morning. On 02/15/2020 patient seen in follow-up on general medical surgical floor, patient had EGD done yesterday which did not reveal any active bleeding, patient was restarted on heparin infusion for evidence of DVT in his lower extremity, no worsening dyspnea, patient is still on and off lethargic, but appears to be in no acute distress. He is on 3 L of oxygen pulse ox of 95%, his been afebrile, completed chest pain. No hemoptysis. Today's hemoglobin is 9.0. On 02/25/2020 we were reconsulted in view of significant clinical deterioration last night, rapid response team was called, alva gama was activated at 0243 in the morning on 02/26/2020. Apparently patient was having ongoing abdominal pain for the past few days prior to the event, he was believed to have ileus. His abdominal CT of abdomen and pelvis was done on 02/19/2020 showing postoperative changes in the sigmoid colon, proximal to this level there was abnormal thickening of the right colon, some thickened small bowel loops were also present, no is no evidence of free air, there was evidence of increased amount of ascites. There was interval development of bilateral pleural effusions and associated atelectasis. Past few days patient also developed a low urine output urology also consulted on the case for difficult Lemus insertion and possible urinary retention. Yesterday on 02/25/2020 ultrasound abdomen showed moderate ascites in the right flank. His abdomen continued to be more distended and painful, patient was eating some oral intake, however his blood pressures were running on the lower side, his urine output continued to be low, there was paracentesis planned a possibility of ascites. Last night patient developed hypothermia, and hypotension. Patient became unresponsive, and there was no pal pable pulse. CPR was started and immediately patient became responsive, CPR was stopped, patient was emergently intubated placed on mechanical ventilator and transferred to the intensive care unit. ID service has been following, patient's antibiotic coverage includes daptomycin. This morning he seen in the intensive care unit, sedated, intubated, on assist-control mode of ventilation, with a rate of 16, tidal planning is 500, FiO2 of 50%, and PEEP of 5. This was blood gases showed pO2 of 88, pCO2 of 29, and pH is 7.34. Patient is hypotensive, he is requiring levo fed at 0.43 mics per kilo per minute over 25 mics per minute, Diprivan and is at 40 mics per kilo per minute, patient has rec eived fluid resuscitation, yesterday she had received 2 L of fluid from the surgical team earlier in the day, and he received additional 2 L bolus after his cardiac pulmonary arrest early this morning, his maintenance IV fluids are currently infusing at a rate of 75 ML per hour. Patient kidney to be hypotensive, we gave him an additional liter fluid bolus today, and she will be started on a vasopressin infusion for refractory hypotension. Blood cultures have been sent, pending at this time. Prior blood cultures and sputum culture. Patient's abdomen remains very tense, distended, firm, with the area of redness and discoloration, and induration near the mid abdominal surgical incision. Avinash srinivasan has a lot of generalized swelling, he is weeping from the catheter insertion sites. He had right femoral central line catheter placed by Dr. Jarrell at the bedside and a right radial art line placed for close hemodynamic monitoring. This morning's lab work has been reviewed showing squamous cell count of 21.8, hemoglobin of 8.9, sodium of 137, potassium is 4.1, chloride is 119, CO2 is 10, BUN is 10 and creatinine 0.64, patient was given 2 A of sodium bicarbonate. On 03/03/2020 patient seen in follow-up in the intensive care unit, he remains intubated, and sedated, on assist-control mode of ventilation, with a rate of 10, tidal lung is 500, FiO2 of 50% and PEEP of 5, this morning blood gases revealed pO2 of 116, pCO2 37, and pH of 7.51. His current IVs include 0.9 normal seen at a rate of 10 ML per hour, levothyroid is a 6 mics per minute, propofol is currently off, and patient is receiving nutritional support with vital AF 1.2 at a rate of 10 ML per hour. Today's chest x-ray shows stable diffuse interstitial pattern with bilateral infiltrates and pleural effusion that are stable in appearance. His labs have been reviewed showing with blood cell count of 13.8, hemoglobin of 8.9, sodium 144, potassium is 3.6, chloride is 113, and the rest of electrolytes and renal profile were unremarkable. Patient is passing some liquid green stools, abdomen is nontender, mid abdominal incision is clean dry and intact, he has been tolerating tube feedings. Patient is on antibiotics including daptomycin, Diflucan, and Zosyn On 03/04/2020 patient seen in follow-up in the intensive care unit, his been off all sedation for 48 hours, he remains very minimally responsive, she opens his eyes slightly to painful stimuli, still very drowsy, encephalopathic, remains on ventilator support, current vent settings are assist control mode of ventilation with a rate of 10, tidal legs 500, FiO2 of 40% and PEEP of 5, and dyspneic blood gases showed pO2 of 102, pCO2 34 and pH of 7.49. Patient is currently on 0.9 normal saline at rate of 100 ML per hour, levo fed is at 10 mics per minute, no other drips, vital AF for nutritional support at 17 with a goal 17. Has not been able to wean off the vasopressors, patient remains on Solu-Cortef Cortef at 50 mg every 12 hours, we'll adjust the dose to 26 hours. Patient is tolerating tube feedings, he is passing liquid bowel movements, fecal management system was inserted, is on antibiotics in the form of Zosyn and daptomycin. he has been afebrile, no new growth on his cultures. Abdomen is much less distended, is soft, his mid abdominal incision is clean dry and intact, yvonne are intact, Lemus catheter is in place patient is producing 15-35 ML per hour. Chest x-ray showing basilar atelectasis, probable left pleural effusion, and there is some improvement in aeration of the right lung base. Remains on on anticoagulation in the form of Lovenox 60 mg twice daily. In sinus mechanism on the monitor. Patient has significant amount of generalized edema in his upper and lower extremities, and truncal edema. On 2019 patient seen in follow-up in the intensive care unit, she remains intubated, she still very lethargic, his Diprivan and has been on hold for last 72 hours, current vent settings are assist-control with a rate of 10, tidal volume is 500, FiO2 40%, and PEEP of 5. Patient had pressure-support trials , she was placed on assist-control mode overnight. No acute events overnight, currently down to 3.5 mics per minute on the levo fed infusion, 0.9 normal saline at 100 ML per hour, remains on the nutritional support with vital AF at a rate of 17 with a goal a 17, tolerating tube feedings well, he is passing liquid stools, fecal management system is in place, in sinus mechanism, his been afebrile, remains on antibiotics . Blood culture, ascites fluid cultures have been negative, sputum was only positive for Pita, patient is covered with Zosyn, daptomycin and Diflucan. Abdomen is soft, nontender, demonstrates incisions clean dry and intact, yvonne are intact. Patient has significant generalized edema, but has been requiring vasopressor support. Renal function is within normal limits, today's labs have been reviewed, sodium is 145, potassium is 3.3, chloride is 118, BUN 17 creatinine 0.7 Objective - Vital Signs Vital signs: Vital Signs Temp 97.4 F L 03/05/20 08:00 Pulse 77 03/05/20 09:30 Resp 12 03/05/20 09:00 BP 107/58 03/04/20 14:00 Pulse Ox 99 03/05/20 09:30 Intake & Output 03/04/20 03/05/20 03/05/20 18:59 06:59 18:59 Intake Total 7646.632 0828.174 375.549 Output Total 298 525 85 Balance 283.215 3550.174 290.549 Weight 63.6 kg 65.2 kg Intake: IV 1003 1236 306 Piperacillin-Tazobactam 3 100 .375 gm In Sodium Chloride 0.9% 100 ml @ 25 mls/hr IVPB Q8HR [facility] Rx# :[id number] Pressure bag 3 36 6 Sodium Chloride 0.9% 1, 1000 1200 200 000 ml @ 100 mls/hr IV . Q10H [facility] Rx#:[id number] Intake, IV Titration 33.753 22.174 5.549 Amount Norepinephrine 32 mg In 33.753 22.174 5.549 Sodium Chloride 0.9% 218 ml @ 0.05 MCG/KG/MIN 1. 359 mls/hr IV .Q24H [facility] Rx#:[id number] Tube Feeding 17 204 34 Other 90 30 Output: Urine 297 325 85 Stool 1 200 Other: Voiding Method Indwelling Catheter Indwelling Catheter ABP, PAP, CO, CI - Last Documented Arterial Blood Pressure 110/56 - Exam GENERAL EXAM: Intubated sedated 64-year-old white male, on assist-control mode of ventilation, in no acute distress HEAD: Normocephalic/atraumatic. EYES: Normal reaction of pupils, equal size. Conjunctiva pink, sclera white. NOSE: Clear with pink turbinates. THROAT: No erythema or exudates. NECK: No masses, no JVD, no thyroid enlargement, no adenopathy. CHEST: No chest wall deformity. Symmetrical expansion. LUNGS: Equal air entry with no crackles, wheeze, rhonchi or dullness. CVS: Regular rate and rhythm, normal S1 and S2, no gallops, no murmurs, no rubs ABDOMEN: Less distended and firm on today's exam compared to last week, no tenderness and indurated discoloration and redness near the surgical incision on the right abdomen significantly improved since last week, mid abdominal incision with yvonne intact EXTREMITIES: No clubbing, 1+ upper and lower extremity edema, patient has a weeping edema with the drainage from the catheter insertion sites no cyanosis, 2+ pulses and upper and lower extremities. MUSCULOSKELETAL: Muscle strength and tone normal. SPINE: No scoliosis or deformity SKIN: No rashes CENTRAL NERVOUS SYSTEM: Unable to assess, patient is sedated and intubated. No focal deficits, tone is normal in all 4 extremities. - Labs CBC & Chem 7: 03/05/20 03:32 03/05/20 03:32 Labs: Abnormal Lab Results - Last 24 Hours (Table) 03/04/20 03/04/20 03/04/20 Range/Units 12:14 12:36 17:18 WBC (3.8-10.6) k/uL RBC (4.30-5.90) m/uL Hgb (13.0-17.5) gm/dL Hct (39.0-53.0) % MCV (80.0-100.0) fL MCHC (31.0-37.0) g/dL RDW (11.5-15.5) % Macrocytosis ABG pH (7.35-7.45) ABG pCO2 (35-45) mmHg ABG Total CO2 (19-24) mmol/L ABG O2 Saturation (94-97) % Potassium 3.0 L (3.5-5.1) mmol/L Chloride (98-107) mmol/L Glucose (74-99) mg/dL POC Glucose (mg/dL) 123 H 121 H (75-99) mg/dL Calcium (8.4-10.2) mg/dL Ammonia (<30) umol/L 03/04/20 03/04/20 03/04/20 Range/Units 17:30 21:46 23:36 WBC (3.8-10.6) k/uL RBC (4.30-5.90) m/uL Hgb (13.0-17.5) gm/dL Hct (39.0-53.0) % MCV (80.0-100.0) fL MCHC (31.0-37.0) g/dL RDW (11.5-15.5) % Macrocytosis ABG pH (7.35-7.45) ABG pCO2 (35-45) mmHg ABG Total CO2 (19-24) mmol/L ABG O2 Saturation (94-97) % Potassium 2.9 L (3.5-5.1) mmol/L Chloride (98-107) mmol/L Glucose (74-99) mg/dL POC Glucose (mg/dL) 126 H (75-99) mg/dL Calcium (8.4-10.2) mg/dL Ammonia 43 H (<30) umol/L 03/05/20 03/05/20 03/05/20 Range/Units 03:32 03:32 05:13 WBC 13.3 H (3.8-10.6) k/uL RBC 2.61 L (4.30-5.90) m/uL Hgb 8.7 L (13.0-17.5) gm/dL Hct 28.7 L (39.0-53.0) % MCV 110.0 H (80.0-100.0) fL MCHC 30.5 L (31.0-37.0) g/dL RDW 16.2 H (11.5-15.5) % Macrocytosis Marked A ABG pH (7.35-7.45) ABG pCO2 (35-45) mmHg ABG Total CO2 (19-24) mmol/L ABG O2 Saturation (94-97) % Potassium 3.3 L (3.5-5.1) mmol/L Chloride 118 H (98-107) mmol/L Glucose 120 H (74-99) mg/dL POC Glucose (mg/dL) 122 H (75-99) mg/dL Calcium 7.8 L (8.4-10.2) mg/dL Ammonia (<30) umol/L 03/05/20 Range/Units 05:32 WBC (3.8-10.6) k/uL RBC (4.30-5.90) m/uL Hgb (13.0-17.5) gm/dL Hct (39.0-53.0) % MCV (80.0-100.0) fL MCHC (31.0-37.0) g/dL RDW (11.5-15.5) % Macrocytosis ABG pH 7.47 H (7.35-7.45) ABG pCO2 34 L (35-45) mmHg ABG Total CO2 26 H (19-24) mmol/L ABG O2 Saturation 98.4 H (94-97) % Potassium (3.5-5.1) mmol/L Chloride (98-107) mmol/L Glucose (74-99) mg/dL POC Glucose (mg/dL) (75-99) mg/dL Calcium (8.4-10.2) mg/dL Ammonia (<30) umol/L Assessment and Plan Plan: Assessment: #1. Acute hypoxic respiratory failure related to septic shock, with a possibility of abdominal sepsis, although cultures from the paracentesis fluid have been negative #2. Acute cardiac pulmonary arrest on 02/26/2020 related to septic shock, patient required a brief CPR, was emergently intubated and fluid resuscitated, remains on high amount of vasopressor support currently in the form of norepinephrine and vasopressin #3. Increased bibasilar opacities and new small bilateral pleural effusions on the chest x-ray, related to fluid overload #4. Abdominal pain and distention, improved post-paracentesis, patient had over 8 L of fluid drained from his peritoneal cavity #5. Massive ascites, status post high-volume paracentesis #6. Non-anion gap metabolic acidosis related to septic shock, and has received IV fluids and bicarbonate infusion, resolved #7. Volume contraction alkalosis, secondary to paracentesis and diuretic therapy #8. Elevated d-dimer, nonspecific, doubt possibility of pulmonary embolism. C TA chest was suboptimal but did not reveal any evidence of central pulmonary embolism, VQ scan showed intermediate probability for pulmonary embolism, patient was found to have a new left leg DVT, was on Eliquis which we will place on hold right now in view of acute decompensation, and possible need for surgical intervention in view of septic shock, with a suspicion of intra- abdominal source #9. Diverticulitis, status post lower anterior resection, takedown of splenic flexure and partial omentectomy #10. Alcohol abuse with alcohol withdrawal #11. Recent history dark black stools the possibility of upper GI bleeding #12. Altered mental status, related to metabolic encephalopathy, neurology is following #13. History of diverticular disease #14. History of EtOH abuse Plan: Continue weaning vasopressors, continue with hydrocortisone 50 mg every 6 hours, continue nutritional support, continue antibiotics per ID service recommendations, hold all sedatives and narcotics, we will give the patient another pressure-support trial today, May placed back on assist control when he gets tired. Cut back IV fluids to 40 ML per hour, consider diuretics when the patient is off vasopressors. I performed a history & physical examination of the patient and discussed their management with my nurse practitioner, Felipa Matute. I reviewed the nurse practitioner's note and agree with the documented findings and plan of care. Lung sounds are positive for clear breath sounds throughout the lung arias. The findings and the impression was discussed with the patient. I attest to the documentation by the nurse practitioner. Time with Patient: Greater than 30
[2020-03-05] MEDS: FLUCONAZOLE IN NACL,ISO-OSM 100 MG in SALINE 1 50ML.BAG IVPB SCH (10:35)
--- NOTE | 2020-03-05 10:53 | P.PN ---
Subjective Progress Note Date: 03/05/20 CHIEF COMPLAINT: Diverticulitis HISTORY OF PRESENT ILLNESS: Patient is status post lower anterior resection, takedown of splenic flexure and partial omentectomy on 02/07/2020. The morning of 02/26/20 patient was transferred to the ICU after STEVE KUMAR was called. Patient had become hypothermic and hypotensive. Patient become unresponsive they lost pulse and CPR was initiated. Patient did require to be intubated. Patient is currently intubated and sedated. Patient remains in the ICU intubated. Patient remains off of sedation. However he still very lethargic. Patient is still requiring Levophed at 3.5 mics. He is tolerating his tube feedings. He has liquidy stools with fecal management system. And is still requiring pressor support. He is receiving tube feeds through NG tube. Patient is having a large amount of liquidy stools. Fecal management system was inserted. Abdomen is more distended today with evidence of ascites. Patient is having difficulty being weaned from the vent. And critical care services recommending tracheostomy and PEG tube placement. Afebrile WBC 13.3 potassium 3.3 PHYSICAL EXAM: VITAL SIGNS: Reviewed. GENERAL: Well-developed in no acute distress. HEENT: No sclera icterus. Extraocular movements grossly intact. Moist buccal mucosa. Head is atraumatic, normocephalic. ABDOMEN: Abdomen is more distended. Ascites present. Incision clean dry and intact. NEUROLOGIC: Patient is intubated and sedated ASSESSMENT: 1. Cardiopulmonary arrest and acute hypoxic respiratory failure secondary to septic shock. 2. Diverticulitis status post lower anterior resection, takedown of splenic flexure and partial omentectomy on 02/07/2020 3. Patient's abdominal distention likely related to ileus, ascites from his liver cirrhosis and possible hernia. 4. Alcohol abuse with alcohol withdrawal 5. New left leg DVT during this admission 6. Possible ileus 7. Black stools. Resolved. No evidence of upper GI bleed on EGD. EGD was normal 8. Altered mental status likely due to alcohol withdrawal syndrome. Patient evaluated by neurology 9. Possible right lower lobe pneumonia 10. Severe protein calorie malnutrition continue ensure 11. Liver cirrhosis with abdominal ascites status post paracentesis 12. Hypokalemia continue potassium replacement per protocol PLAN: -Patient scheduled for tracheostomy and PEG tube placement tomorrow with Dr. Lee -Abdominal ultrasound with paracentesis ordered due to increase in abdominal ascites -Dietitian to titrate tube feedings to goal -Continue supportive care Physician Shook Splicer note has been reviewed by physician. Signing provider agrees with the documented findings, assessment, and plan of care. Objective - Vital Signs Vital signs: Vital Signs Temp 97.4 F L 03/05/20 08:00 Pulse 85 03/05/20 10:30 Resp 15 03/05/20 10:00 BP 107/58 03/04/20 14:00 Pulse Ox 99 03/05/20 10:30 Intake & Output 03/04/20 03/05/20 03/05/20 18:59 06:59 18:59 Intake Total 0881.336 0628.174 378.088 Output Total 298 525 85 Balance 044.719 4711.174 293.088 Weight 63.6 kg 65.2 kg Intake: IV 1003 1236 306 Piperacillin-Tazobactam 3 100 .375 gm In Sodium Chloride 0.9% 100 ml @ 25 mls/hr IVPB Q8HR [facility] Rx# :[id number] Pressure bag 3 36 6 Sodium Chloride 0.9% 1, 1000 1200 200 000 ml @ 100 mls/hr IV . Q10H [facility] Rx#:[id number] Intake, IV Titration 33.753 22.174 8.088 Amount Norepinephrine 32 mg In 33.753 22.174 8.088 Sodium Chloride 0.9% 218 ml @ 0.05 MCG/KG/MIN 1. 359 mls/hr IV .Q24H [facility] Rx#:[id number] Tube Feeding 17 204 34 Other 90 30 Output: Urine 297 325 85 Stool 1 200 Other: Voiding Method Indwelling Catheter Indwelling Catheter ABP, PAP, CO, CI - Last Documented Arterial Blood Pressure 113/54 - Labs CBC & Chem 7: 03/05/20 03:32 03/05/20 10:00 Labs: Abnormal Lab Results - Last 24 Hours (Table) 03/04/20 03/04/20 03/04/20 Range/Units 12:14 12:36 17:18 WBC (3.8-10.6) k/uL RBC (4.30-5.90) m/uL Hgb (13.0-17.5) gm/dL Hct (39.0-53.0) % MCV (80.0-100.0) fL MCHC (31.0-37.0) g/dL RDW (11.5-15.5) % Macrocytosis ABG pH (7.35-7.45) ABG pCO2 (35-45) mmHg ABG Total CO2 (19-24) mmol/L ABG O2 Saturation (94-97) % Potassium 3.0 L (3.5-5.1) mmol/L Chloride (98-107) mmol/L Glucose (74-99) mg/dL POC Glucose (mg/dL) 123 H 121 H (75-99) mg/dL Calcium (8.4-10.2) mg/dL Ammonia (<30) umol/L 03/04/20 03/04/20 03/04/20 Range/Units 17:30 21:46 23:36 WBC (3.8-10.6) k/uL RBC (4.30-5.90) m/uL Hgb (13.0-17.5) gm/dL Hct (39.0-53.0) % MCV (80.0-100.0) fL MCHC (31.0-37.0) g/dL RDW (11.5-15.5) % Macrocytosis ABG pH (7.35-7.45) ABG pCO2 (35-45) mmHg ABG Total CO2 (19-24) mmol/L ABG O2 Saturation (94-97) % Potassium 2.9 L (3.5-5.1) mmol/L Chloride (98-107) mmol/L Glucose (74-99) mg/dL POC Glucose (mg/dL) 126 H (75-99) mg/dL Calcium (8.4-10.2) mg/dL Ammonia 43 H (<30) umol/L 03/05/20 03/05/20 03/05/20 Range/Units 03:32 03:32 05:13 WBC 13.3 H (3.8-10.6) k/uL RBC 2.61 L (4.30-5.90) m/uL Hgb 8.7 L (13.0-17.5) gm/dL Hct 28.7 L (39.0-53.0) % MCV 110.0 H (80.0-100.0) fL MCHC 30.5 L (31.0-37.0) g/dL RDW 16.2 H (11.5-15.5) % Macrocytosis Marked A ABG pH (7.35-7.45) ABG pCO2 (35-45) mmHg ABG Total CO2 (19-24) mmol/L ABG O2 Saturation (94-97) % Potassium 3.3 L (3.5-5.1) mmol/L Chloride 118 H (98-107) mmol/L Glucose 120 H (74-99) mg/dL POC Glucose (mg/dL) 122 H (75-99) mg/dL Calcium 7.8 L (8.4-10.2) mg/dL Ammonia (<30) umol/L 03/05/20 03/05/20 Range/Units 05:32 10:00 WBC (3.8-10.6) k/uL RBC (4.30-5.90) m/uL Hgb (13.0-17.5) gm/dL Hct (39.0-53.0) % MCV (80.0-100.0) fL MCHC (31.0-37.0) g/dL RDW (11.5-15.5) % Macrocytosis ABG pH 7.47 H (7.35-7.45) ABG pCO2 34 L (35-45) mmHg ABG Total CO2 26 H (19-24) mmol/L ABG O2 Saturation 98.4 H (94-97) % Potassium 3.3 L (3.5-5.1) mmol/L Chloride (98-107) mmol/L Glucose (74-99) mg/dL POC Glucose (mg/dL) (75-99) mg/dL Calcium (8.4-10.2) mg/dL Ammonia (<30) umol/L
--- NOTE | 2020-03-05 11:39 | CDI ---
Documentation Clarification Form Date: 03/05/2020 10:47:21 AM From: Modesta Skelton RN CCDS Admit Date: 02/07/2020 08:00:00 AM Patient Name: Murray Carter Visit Number: [id number] Discharge Date: ATTENTION: The Clinical Documentation Specialists (CDI) and [facility] Coding Staff appreciate your assistance in clarifying documentation. Please respond to the clarification below the line at the bottom and electronically sign. The CDI & [facility] Coding staff will review the response and follow-up if needed. Please note: Queries are made part of the Legal Health Record. If you have any questions, please contact the author of this message via ITS. Dr. Hiram Lee Conflicting documentation has been found in the medical record: Mild Protein Calorie Malnutrition is documented in Internal medicine Progress Notes 02/24 & 02/25, 02/27 through 03/04 Severe Protein Calorie Malnutrition is documented in Surgical Progress Notes 02/21 through 02/26 and 03/03 and 03/04 History/Risk Factors: 64-year-old male presents to [facility] for elective bowel resection. Medical History of Diverticulitis, Alcohol abuse current smoker. Clinical Indicators: Nutritional Assessment 02/11 Intake: poor on clear liquid diet, appetite poor, percent consumed 0-25% Physical findings: underweight; Moderate Muscle Wasting Estimated Nutritional kcal needs [id number]; Estimated Protein 70-84 grams/day 02/25 Patient was intubated and on Mechanical Ventilation. Treatment: 02/14 Ensure TID changed on 02/27 Tube feedings Jevity 1.5 Monitoring daily Chemistry labs In your opinion, what is the most clinically appropriate diagnosis for this patient? Mild Protein Calorie Malnutrition Severe Protein Calorie Malnutrition Other explanation of clinical findings Unable to determine (no explanation for clinical findings) (Last Revision: July 2017) Severe protein calorie nutrition MTDD
[2020-03-05] MEDS: ENOXAPARIN 60 MG/0.6 ML SYRINGE SQ SCH ×2 (12:21→21:04)
[2020-03-05 13:14] LABS: Glucose,Whole Blood 119 mg/dL (75-99)
--- NOTE | 2020-03-05 14:27 | US ---
Ultrasound-guided paracentesis. DATE OF EXAM: 03/05/2020 CLINICAL HISTORY: Ascites The procedure was discussed with the patient. The risks, complications, benefits, and alternatives we re discussed and any questions were answered. Informed consent was obtained. The patient was placed s upine on the ultrasound table and prepped and draped in the usual sterile fashion. All elements of maximal barrier technique were utilized. Under ultrasound guidance, access into the right lower quadrant was obtained, via the paracentesis catheter system and direct ultrasound guidanc e. Approximately 6 liters of straw-colored fluid was removed. The patient was stable throughout the proc edure and remained stable upon discharge from Department of Radiology. IMPRESSION: Successful paracentesis under ultrasound guidance.
[2020-03-05] MEDS: NOREPINEPHRINE 32 MG in SODIUM CHLORIDE 0.9% 218 ML IV SCH (14:42)
[2020-03-05] MEDS: POTASSIUM CHLORIDE 20 MEQ in WATER FOR INJECTION 1 100ML.BAG IVPB SCH ×2 (16:57→19:16)
[2020-03-05 17:39] LABS: Glucose,Whole Blood 117 mg/dL (75-99)
--- NOTE | 2020-03-05 18:22 | P.PN ---
Subjective Progress Note Date: 03/05/20 Patient was seen at bedside and the per the patient nurse he continues to be off sedation for at least 72 hours. He continues not to follow commands. The patient continues to be intubated on the ventilator spontaneous breathing. Today the patient had paracentesis. Objective - Vital Signs Vital signs: Vital Signs Temp 97.6 F 03/05/20 16:00 Pulse 96 03/05/20 17:00 Resp 9 L 03/05/20 17:00 BP 107/58 03/04/20 14:00 Pulse Ox 95 03/05/20 17:00 Intake & Output 03/04/20 03/05/20 03/05/20 18:59 06:59 18:59 Intake Total 0018.911 8249.174 1548.901 Output Total 356 456 0890 Balance 868.305 1803.174 -4736.099 Weight 63.6 kg 65.2 kg 65.2 kg Intake: IV 1003 1236 1330 Piperacillin-Tazobactam 3 200 .375 gm In Sodium Chloride 0.9% 100 ml @ 25 mls/hr IVPB Q8HR [facility] Rx# :[id number] Potassium Chloride 20 meq 100 In Water For Injection 1 100ml.bag @ 50 mls/hr IVPB ONCE [facility] Rx#: [id number] Pressure bag 3 36 30 Sodium Chloride 0.9% 1, 1000 1200 1000 000 ml @ 100 mls/hr IV . Q10H [facility] Rx#:[id number] Intake, IV Titration 33.753 22.174 9.901 Amount Norepinephrine 32 mg In 33.753 22.174 9.901 Sodium Chloride 0.9% 218 ml @ 0.05 MCG/KG/MIN 1. 359 mls/hr IV .Q24H [facility] Rx#:[id number] Tube Feeding 17 204 149 Other 90 60 Output: Drainage 6000 Right Lower Lateral 6000 Abdomen Paracentesis site Urine 297 325 285 Stool 1 200 Other: Voiding Method Indwelling Catheter Indwelling Catheter Indwelling Catheter ABP, PAP, CO, CI - Last Documented Arterial Blood Pressure 105/49 - Exam GENERAL: The patient is lying and is not in acute distress. LUNG: Intubated on ventilator but on sponatenous breathing during my examination. Not labored breathing. Integumentary: Generalized edema. And I felt the patient had extensive edema over the left upper extremity compared to the right upper extremity at. NEUROLOGICAL: Limited because of his condition. Higher mental function: GCS:9 (E3, VT1, M5). The patient opens to painful stimuli. Patient has not followed commands or attempting to verbalize. Cranial nerves: The pupils are round, 2-3mm, equal and reactive to light. Could not assess visual field or EOM movement beause of lack of cooperation. Gaze is midline. Could not E gentleman at whether the patient had facial weakness because of the the intubation as well as the gear on his face. Could not assess the rest of the cranial nerves because of lack of cooperation. Motor: Gait deferred because of his condition. The strength he was able to lift up the right upper extremity above gravity to painful stimuli. While patient attempted that to lift the left fingers on the left hand with painful stimuli but was not able to lift it up compared to the right upper extremity. With the painful simvastatin of lower extremities a patient was moving his toes s ymmetrically by flexion the dorsiflexion. Otherwise not moving above gravity or withdrawing it. Cerebellum: Unable to assess. Sensation: With painful stimuli is seems normal throughout. Reflexes (right/left): 1+ throughout. Plantars are mute bilaterally. - Labs CBC & Chem 7: 03/05/20 03:32 03/05/20 10:00 Labs: Abnormal Lab Results - Last 24 Hours (Table) 03/04/20 03/04/20 03/05/20 Range/Units 21:46 23:36 03:32 WBC 13.3 H (3.8-10.6) k/uL RBC 2.61 L (4.30-5.90) m/uL Hgb 8.7 L (13.0-17.5) gm/dL Hct 28.7 L (39.0-53.0) % MCV 110.0 H (80.0-100.0) fL MCHC 30.5 L (31.0-37.0) g/dL RDW 16.2 H (11.5-15.5) % Macrocytosis Marked A ABG pH (7.35-7.45) ABG pCO2 (35-45) mmHg ABG Total CO2 (19-24) mmol/L ABG O2 Saturation (94-97) % Potassium 2.9 L (3.5-5.1) mmol/L Chloride (98-107) mmol/L Glucose (74-99) mg/dL POC Glucose (mg/dL) 126 H (75-99) mg/dL Calcium (8.4-10.2) mg/dL 03/05/20 03/05/20 03/05/20 Range/Units 03:32 05:13 05:32 WBC (3.8-10.6) k/uL RBC (4.30-5.90) m/uL Hgb (13.0-17.5) gm/dL Hct (39.0-53.0) % MCV (80.0-100.0) fL MCHC (31.0-37.0) g/dL RDW (11.5-15.5) % Macrocytosis ABG pH 7.47 H (7.35-7.45) ABG pCO2 34 L (35-45) mmHg ABG Total CO2 26 H (19-24) mmol/L ABG O2 Saturation 98.4 H (94-97) % Potassium 3.3 L (3.5-5.1) mmol/L Chloride 118 H (98-107) mmol/L Glucose 120 H (74-99) mg/dL POC Glucose (mg/dL) 122 H (75-99) mg/dL Calcium 7.8 L (8.4-10.2) mg/dL 03/05/20 03/05/20 03/05/20 Range/Units 10:00 13:12 17:38 WBC (3.8-10.6) k/uL RBC (4.30-5.90) m/uL Hgb (13.0-17.5) gm/dL Hct (39.0-53.0) % MCV (80.0-100.0) fL MCHC (31.0-37.0) g/dL RDW (11.5-15.5) % Macrocytosis ABG pH (7.35-7.45) ABG pCO2 (35-45) mmHg ABG Total CO2 (19-24) mmol/L ABG O2 Saturation (94-97) % Potassium 3.3 L (3.5-5.1) mmol/L Chloride (98-107) mmol/L Glucose (74-99) mg/dL POC Glucose (mg/dL) 119 H 117 H (75-99) mg/dL Calcium (8.4-10.2) mg/dL Assessment and Plan Assessment: * Altered mental status, likely due cardiac arrest on 02/26/2020 as well as probably superimposed toxic metabolic encephalopathy (slight elevation of ammonia) * Patient is not responsive, not following commands and seems to be moving the right upper extremity more than the left upper extremity: One of the d ifferential is a stroke from underlying cardiac arrest. Acute a localized to the brain or one of the possibility is a cervical. * Cardiac arrest on 02/26/2020 * History of polysubstance abuse including alcohol, and tobacco. Patient denies marijuana use. * Massive ascites, status post high-volume paracentesis (improvement of abdominal pain s/p paracentesis) last one on 03/05/20 * Diverticulitis status post lower anterior resection, takedown of splenic flexure and partial omentectomy * Leukocytosis is trending down * Hypokalemia * Acute hypoxic respiratory failure related to septic shock with the possibility of abdominal sepsis. * Acute DVT left lower extremity, now on Xarelto. * Folate deficiency Plan: * EEG 02/13/20: Reported as moderate background slowing consistent with encephalopathy, no epileptiform activity seen. * Routine EEG (03/04/20): Abnormal routine EEG. The back was SUGGESTIVE of severe encephalopathy of nonspecific etiology. There are no focal slowing, Lipitor discharges or seizure seen during the study. * CT of the head 03/04/20: Reported as no acute renal hemorrhage or midline shift. There is moderate diffuse cerebral atrophy and the mild to moderate chronic small vessel ischemic changes redemonstrated. No significant interval change from the prior CT. * [place] repeat the CT of the head for later today. Once the patient has a trach with collar I recommended the patient the to get MRI the brain and the cervical spine. * TSH: 3.6 for which within the normal limits. * ammonia level: 43. * AST is 36 and ALT is 23 on 03/01/2020. At this time I'll not can repeat it. * Continue folic acid 1 mg daily for folic acid deficiency. * Continue thiamine daily. * PT and OT. * ID following. Plan was discussed with the patient nurse Time with Patient: Less than 30
[2020-03-05] MEDS ORDERED: IPRATROPIUM-ALBUTEROL 3 ML NEB INHALATION PRN (18:34)
--- NOTE | 2020-03-05 19:54 | P.PN ---
Progress Note - Text Progress Note Date: 03/05/20 - Chief Complaint Abdominal surgery History of presenting complaint: This is a pleasant 64-year-old patient of . Patient been having complication to his diverticulitis. computed tomography scan on January 08. Showed some possible stricture. Hepatic steatosis. February 06- undergone low anterior resection. Epidural for pain control.patient had elevated d-dimer. Pulmonary embolism felt to be unlikely. CT was suboptimal. VQ scan was intermediate probability. Leg DVT treated with IV heparin. Had some dark stools.also patient had had altered mental status. Faxon to be encephalopathy.computed tomography scan of the brain was unremarkable. EGD-no evidence of bleeding. Patient more awake after dose of baclofen cutback. changed over to xarelto.x-ray showing ileus. Patient did start having bowel movements. Repeat computed tomography scan of abdomen showed possible enteritis./Colitis.as abdomen appeared distended. Lemus catheter was placed. No urine retention.-patient become hypotensive. Had a brief cardiac and pulmonary arrest Moved to ICU. Had to be intubated. Drips include norepinephrine, vasopressin, propofol. NG tube to suction.also treated for aspiration pneumonia and abdominal wall cellulitis.ascitic fluid that was tapped was unremarkable.4.5 L of acetic fluid removed Today. ICU-on the ventilator. FiO2 40 and a PEEP of 5. Sinus rhythm. On a small dose of Levothroid. Paracentesis is being carried out about 4.5 L was removed. 2 feeding tube or G-tube. Review of systems: Patient intubated Active Medications Acetazolamide (Acetazolamide 250 Mg Tab) 250 mg PO BID COUNT INCLUDES THE [facility] Last Admin: 03/05/20 09:48 Dose: 250 mg Documented by: Albuterol/Ipratropium (Ipratropium-Albuterol 3 Ml Neb) 3 ml INHALATION RT-Q4H JOANA Albuterol/Ipratropium (Ipratropium-Albuterol 3 Ml Neb) 3 ml INHALATION RT-Q2H PRN PRN Reason: Shortness Of Breath Or Wheezing Chlorhexidine Gluconate (Chlorhexidine Gluconate 15 Ml Cup) 15 ml MUCOUS MEM BID COUNT INCLUDES THE [facility] Last Admin: 03/05/20 09:47 Dose: 15 ml Documented by: Enoxaparin Sodium (Enoxaparin 60 Mg/0.6 Ml Syringe) 60 mg SQ BID COUNT INCLUDES THE [facility] Last Admin: 03/05/20 12:21 Dose: Not Given Documented by: Ferrous Sulfate (Ferrous Sulfate Oral Elixir 300 Mg/5 Ml Cup) 300 mg PO BID- W/MEALS COUNT INCLUDES THE [facility] Last Admin: 03/05/20 16:57 Dose: 300 mg Documented by: Folic Acid (Folic Acid 1 Mg Tab) 1 mg OG-TUBE DAILY COUNT INCLUDES THE [facility] Last Admin: 03/05/20 09:47 Dose: 1 mg Documented by: Hydrocortisone Sodium Succinate (Hydrocortisone Succinate 100 Mg/2 Ml Vial) 50 mg IV Q6HR COUNT INCLUDES THE [facility] Last Admin: 03/05/20 17:01 Dose: 50 mg Documented by: Piperacillin Sod/Tazobactam (Sod 3.375 gm/ Sodium Chloride) 100 mls @ 25 mls/hr IVPB Q8HR COUNT INCLUDES THE [facility] Last Admin: 03/05/20 16:57 Dose: 25 mls/hr Documented by: Daptomycin 350 mg/ Sodium (Chloride) 50 mls @ 100 mls/hr IVPB Q24H COUNT INCLUDES THE [facility]; Protocol Last Admin: 03/04/20 23:25 Dose: 100 mls/hr Documented by: Fluconazole/Sodium Chloride (100 mg/ IV Solution) 50 mls @ 50 mls/hr IVPB DAILY COUNT INCLUDES THE [facility] Last Admin: 03/05/20 10:35 Dose: 50 mls/hr Documented by: Norepinephrine Bitartrate 32 (mg/ Sodium Chloride) 250 mls @ 1.359 mls/hr IV .Q24H COUNT INCLUDES THE [facility]; Protocol Last Admin: 03/05/20 14:42 Dose: Not Given Documented by: Sodium Chloride (Saline 0.9%) 1,000 mls @ 100 mls/hr IV .Q10H COUNT INCLUDES THE [facility] Last Admin: 03/05/20 14:42 Dose: 100 mls/hr Documented by: Insulin Aspart (Insulin Aspart (Novolog) 100 Unit/Ml Vial) 0 unit SQ Q6H COUNT INCLUDES THE [facility]; Protocol Last Admin: 03/05/20 18:58 Dose: Not Given Documented by: Metoclopramide HCl (Metoclopramide 5 Mg/Ml 2 Ml Vial) 10 mg IVP Q6HR PRN PRN Reason: Nausea and Vomiting Miscellaneous Information (Magnesium Replacement Protocol 1 Each Misc) 1 each MISCELLANE DAILY PRN; Protocol PRN Reason: Per Protocol Miscellaneous Information (Potassium Replacement Protocol 1 Each Misc) 1 each MISCELLANE DAILY PRN; Protocol PRN Reason: Per Protocol Miscellaneous Information (Potassium Replacement Protocol 1 Each Misc) 1 each MISCELLANE DAILY PRN; Protocol PRN Reason: Per Protocol Miscellaneous Information (Potassium Replacement Protocol 1 Each Misc) 1 each MISCELLANE DAILY PRN; Protocol PRN Reason: Per Protocol Ondansetron HCl (Ondansetron 4 Mg/2 Ml Vial) 4 mg IVP Q8HR PRN PRN Reason: Nausea And Vomiting Pantoprazole Sodium (Pantoprazole 40 Mg/10 Ml Vial) 40 mg IVP BID COUNT INCLUDES THE [facility] Last Admin: 03/05/20 09:47 Dose: 40 mg Documented by: Tamsulosin HCl (Tamsulosin 0.4 Mg Cap.Er.24h) 0.4 mg PO HS COUNT INCLUDES THE [facility] Last Admin: 03/04/20 20:03 Dose: 0.4 mg Documented by: Thiamine HCl (Thiamine 100 Mg/Ml 2 Ml Vial) 100 mg IVP DAILY COUNT INCLUDES THE [facility] Last Admin: 03/05/20 09:48 Dose: 100 mg Documented by: Physical examination: VITAL SIGNS: 97.6, 92, 10, 112/52, 96% on ventilator GENERAL: Laying in bed, intubated EYES: Pupils equal. Conjunctiva normal. HEENT:, oral cavity endotracheal tube and OG tube. NECK: JVD unable to assess; masses not palpable. HEART: First and second heart sounds are normal; some edema LUNGS: Respiratory rate increased; decreased breath sounds. ABDOMEN: Soft, less distended nontender, , area of subcutaneous swelling around the incision site. PSYCH: Patient sedated INVESTIGATIONS, reviewed in the clinical context: White count 14.3 hemoglobin 9 potassium 2.6 creatinine 1.02 Previous testing EEG shows evidence of encephalopathy Computed tomography scan of the brain-mild atrophy 2-D echocardiogram-EF 55-60% VQ scan-intermediate probability Chest CTA-suboptimal study. Doppler ultrasound-positive for thrombus within the distal popliteal vein White count 10.2 hemoglobin 14.2 potassium 3.6 B12 some 08 Previously AST 129 ALT 50 Computed tomography scan of the abdomen from January 08-possible colitis, diverticulitis, some esophagitis, hepatic steatosis Abdominal x-ray film personally reviewed by me shows ileus Sputum growing Pita Assessment: -Acute hypoxic respiratory failure, requiring ventilator support-slow to respond -Septic shock -Status post low anterior resection, for diverticulitis complication -Postop ileus- -Chronic nicotine dependence patient cigarette smoker -Clinical emphysema, asymptomatic -Suspect alcoholic hepatitis -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 Repeat paracentesis. 4.5 L. -Mild hyponatremia -Macrocytic anemia. -Acute DVT in the left distal popliteal vein -Acute alcohol withdrawal syndrome with improvement -Right lower lobe pneumonia -Mild protein calorie malnutrition from decreased oral intake Plan: ICU-continue with IV daptomycin, Diflucan, IV Zosyn. Paracentesis repeated today. 2 feeding to continue. Thank you Dr. Lee
[2020-03-05] MEDS: TAMSULOSIN 0.4 MG CAP.ER.24H PO SCH (21:05)
[2020-03-05] MEDS: IPRATROPIUM-ALBUTEROL 3 ML NEB INHALATION SCH ×2 (21:59→23:22)
--- NOTE | 2020-03-05 22:05 | CT ---
EXAMINATION TYPE: CT brain wo con DATE OF EXAM: 03/05/2020 COMPARISON: 03/04/2020 HISTORY: ams, weakness CT DLP: 1188.4 mGycm Automated exposure control for dose reduction was used. There is cerebral cortical atrophy. There is no mass effect nor midline shift. There is no sign of in tracranial hemorrhage. The calvarium is intact. IMPRESSION: Cerebral atrophy. No acute intracranial abnormality. No change.
--- NOTE | 2020-03-05 23:12 | PN ---
PROGRESS NOTE DATE OF SERVICE: 03/05/2020 REASON FOR FOLLOWUP: Aspiration pneumonia and abdominal cellulitis. INTERVAL HISTORY: The patient is currently afebrile. Patient is hemodynamically stable. 40%. No worsening diarrhea or any other changes reported by nursing staff. PHYSICAL EXAMINATION: Blood pressure 101/48 with a pulse of 92, temperature 98. He is 96% on 40% Venti . General description is a middle-aged male, intubated on the vent. Respiratory system: Unlabored breathing, decreased breath sounds in the bases. No wheeze. Heart S1, S2. Regular rate and rhythm. ABDOMEN: Soft, distended, no redness. LABS: Hemoglobin 8.7, white count 13.3, BUN of 17, creatinine 0.77. DIAGNOSTIC IMPRESSION AND PLAN: Patient with acute respiratory failure which is multifactorial in this patient status post cardiac arrest, anoxic encephalopathy. Neurology is following the patient. Plan is for possible trach and PEG and the patient not waking up when despite no sedation. The patient is currently covered with Zosyn and Dapto and Diflucan to continue and monitor clinical course closely. Prognosis remains to be guarded. MMODL / IJN: [id number] /
[2020-03-06] MEDS: PIPERACILLIN-TAZOBACTAM 3.375 GM in SODIUM CHLORIDE 0.9% 100 ML IVPB SCH ×4 (00:39→23:22)
[2020-03-06] MEDS: HYDROCORTISONE SUCCINATE 100 MG/2 ML VIAL IV SCH ×5 (00:39→23:22)
[2020-03-06] MEDS: DAPTOmycin 350 MG in SODIUM CHLORIDE 0.9% 50 ML IVPB SCH (00:39)
[2020-03-06 00:55] LABS: Glucose,Whole Blood 122 mg/dL (75-99)
[2020-03-06] MEDS: INSULIN ASPART (NovoLOG) 100 UNIT/ML VIAL SQ SCH ×5 (00:55→23:59)
[2020-03-06] MEDS: SODIUM CHLORIDE 0.9% 1,000 ML IV SCH ×3 (00:55→22:29)
[2020-03-06] MEDS: POTASSIUM BICARBONATE/CIT AC 20 MEQ TABLET.EFF NG-TUBE SCH ×3 (02:12→03:37)
[2020-03-06] MEDS: IPRATROPIUM-ALBUTEROL 3 ML NEB INHALATION SCH ×5 (03:54→19:21)
[2020-03-06 05:07] LABS: Glucose,Whole Blood 119 mg/dL (75-99)
[2020-03-06 05:14] LABS: Anisocytosis Slight; HCT 28.5 % (39.0-53.0); HGB 8.8 gm/dL (13.0-17.5); Hypochromasia Marked; MCH 33.7 pg (25.0-35.0); MCHC 30.9 g/dL (31.0-37.0); MCV 108.9 fL (80.0-100.0); Mean Platelet Volume 9.2; Platelet Count 276 k/uL (150-450); Poikilocytosis Slight; RBC 2.62 m/uL (4.30-5.90); RDW 16.1 % (11.5-15.5); WBC 16.4 k/uL (3.8-10.6)
[2020-03-06 05:15] LABS: Macrocytosis Marked
[2020-03-06 05:22] LABS: African American GFR (CKD) >90 (>60 ml/min/1.73 sqM); Anion Gap 0 mmol/L; Blood Urea Nitrogen 17 mg/dL (9-20); Calcium 7.8 mg/dL (8.4-10.2); Carbon Dioxide 24 mmol/L (22-30); Chloride 122 mmol/L (98-107); Glucose 122 mg/dL (74-99); Non-African American GFR(CKD) >90 (>60 ml/min/1.73 sqM); Potassium 3.5 mmol/L (3.5-5.1); Sodium 146 mmol/L (137-145)
[2020-03-06 05:40] LABS: ABG Base Excess -0.6 mmol/L; ABG HCO3 23 mmol/L (21-25); ABG Oxygen Saturation 98.9 % (94-97); ABG PCO2 34 mmHg (35-45); ABG PH 7.45 (7.35-7.45); ABG PO2 117 mmHg (83-108); ABG TCO2 24 mmol/L (19-24); Allen Test Performed? Yes
[2020-03-06] MEDS: FERROUS SULFATE ORAL ELIXIR 300 MG/5 ML CUP PO SCH ×2 (06:09→17:39)
[2020-03-06] MEDS: POTASSIUM CHLORIDE 20 MEQ in WATER FOR INJECTION 1 100ML.BAG IVPB SCH ×4 (06:09→23:23)
[2020-03-06] MEDS: FOLIC ACID 1 MG TAB OG-TUBE SCH (08:28)
[2020-03-06] MEDS: acetaZOLAMIDE 250 MG TAB PO SCH ×2 (08:28→20:24)
[2020-03-06] MEDS: CHLORHEXIDINE GLUCONATE 15 ML CUP MUCOUS MEM SCH ×2 (08:32→20:53)
[2020-03-06] MEDS: PANTOPRAZOLE 40 MG/10 ML VIAL IVP SCH ×2 (08:32→20:53)
[2020-03-06] MEDS: THIAMINE 100 MG/ML 2 ML VIAL IVP SCH (08:33)
[2020-03-06] MEDS: FLUCONAZOLE IN NACL,ISO-OSM 100 MG in SALINE 1 50ML.BAG IVPB SCH (08:34)
--- NOTE | 2020-03-06 10:09 | P.PN ---
Subjective Progress Note Date: 03/06/20 Principal diagnosis: Intermediate probability VQ scan, rule out possibility of pulmonary embolism This is a 64-year-old white male patient status post low anterior resection for strictures and diverticular disease, and this is postoperative day #6. Following his surgery on February 08 patient had a thrombus discomfort within the distal popliteal vein in his left leg, on the liver night patient had a CT angiogram of the chest which was a suboptimal study and did not reveal any large saddle all of central pulmonary emboli. The computed tomography scan showed evidence of small bilateral pleural effusions and multifocal groundglass opacities that could relate to pulmonary edema and/or pneumonia. His chest x- ray from February 11 showed bilateral infiltrates that could be consistent with pneumonia or heart failure. VQ scan showed indeterminate probability for pulmonary embolism. Patient has been confused, apparently he does have history of chronic EtOH, but it has been 60 since his admission, he remains very confused, he is on 3 L of oxygen and the pulse ox of 95%, he was started on heparin infusion for DVT in his left leg. We did not think there was a pulmonar y embolism based on his workup. His brain CT showed no acute intracranial abnormality. In addition there is a possibility of GI bleeding as the patient has been passing some dark stools. Is not appear to be in any respiratory distress, he remains lethargic, confused. Neurology is following, EEGs in progress. Dr. Araujo is planning on EGD tomorrow for evaluation of black stools. On 02/14/2020 patient seen in follow-up on general medical surgical floor his heparin drip is off, his 0.9 normal saline running at 75 ML per hour, appears to be more awake on today's exam, although still confused, she is only oriented to percent, no agitation. No signs of respiratory difficulty, he is on 3 L of oxygen pulse ox is 95%, hemodynamically stable, his abdomen is slightly tender postsurgery, his incision covered with dressing, his been afebrile, breathing is nonlabored, lung sounds reveal a few basilar crackles, no rhonchi or wheezing. Surgery is planned and on EGD today, neurology is following, EEG revealed background slowing of moderate degree suggestive of generalized cerebral dysfunction related to toxic metabolic encephalopathy. Today's hemoglobin is 8.6, had one bowel movement this morning. On 02/15/2020 patient seen in follow-up on general medical surgical floor, patient had EGD done yesterday which did not reveal any active bleeding, patient was restarted on heparin infusion for evidence of DVT in his lower extremity, no worsening dyspnea, patient is still on and off lethargic, but appears to be in no acute distress. He is on 3 L of oxygen pulse ox of 95%, his been afebrile, completed chest pain. No hemoptysis. Today's hemoglobin is 9.0. On 02/25/2020 we were reconsulted in view of significant clinical deterioration last night, rapid response team was called, alva gama was activated at 0243 in the morning on 02/26/2020. Apparently patient was having ongoing abdominal pain for the past few days prior to the event, he was believed to have ileus. His abdominal CT of abdomen and pelvis was done on 02/19/2020 showing postoperative changes in the sigmoid colon, proximal to this level there was abnormal thickening of the right colon, some thickened small bowel loops were also present, no is no evidence of free air, there was evidence of increased amount of ascites. There was interval development of bilateral pleural effusions and associated atelectasis. Past few days patient also developed a low urine output urology also consulted on the case for difficult Lemus insertion and possible urinary retention. Yesterday on 02/25/2020 ultrasound abdomen showed moderate ascites in the right flank. His abdomen continued to be more distended and painful, patient was eating some oral intake, however his blood pressures were running on the lower side, his urine output continued to be low, there was paracentesis planned a possibility of ascites. Last night patient developed hypothermia, and hypotension. Patient became unresponsive, and there was no pal pable pulse. CPR was started and immediately patient became responsive, CPR was stopped, patient was emergently intubated placed on mechanical ventilator and transferred to the intensive care unit. ID service has been following, patient's antibiotic coverage includes daptomycin. This morning he seen in the intensive care unit, sedated, intubated, on assist-control mode of ventilation, with a rate of 16, tidal planning is 500, FiO2 of 50%, and PEEP of 5. This was blood gases showed pO2 of 88, pCO2 of 29, and pH is 7.34. Patient is hypotensive, he is requiring levo fed at 0.43 mics per kilo per minute over 25 mics per minute, Diprivan and is at 40 mics per kilo per minute, patient has rec eived fluid resuscitation, yesterday she had received 2 L of fluid from the surgical team earlier in the day, and he received additional 2 L bolus after his cardiac pulmonary arrest early this morning, his maintenance IV fluids are currently infusing at a rate of 75 ML per hour. Patient kidney to be hypotensive, we gave him an additional liter fluid bolus today, and she will be started on a vasopressin infusion for refractory hypotension. Blood cultures have been sent, pending at this time. Prior blood cultures and sputum culture. Patient's abdomen remains very tense, distended, firm, with the area of redness and discoloration, and induration near the mid abdominal surgical incision. Avinash srinivasan has a lot of generalized swelling, he is weeping from the catheter insertion sites. He had right femoral central line catheter placed by Dr. Jarrell at the bedside and a right radial art line placed for close hemodynamic monitoring. This morning's lab work has been reviewed showing squamous cell count of 21.8, hemoglobin of 8.9, sodium of 137, potassium is 4.1, chloride is 119, CO2 is 10, BUN is 10 and creatinine 0.64, patient was given 2 A of sodium bicarbonate. On 03/03/2020 patient seen in follow-up in the intensive care unit, he remains intubated, and sedated, on assist-control mode of ventilation, with a rate of 10, tidal lung is 500, FiO2 of 50% and PEEP of 5, this morning blood gases revealed pO2 of 116, pCO2 37, and pH of 7.51. His current IVs include 0.9 normal seen at a rate of 10 ML per hour, levothyroid is a 6 mics per minute, propofol is currently off, and patient is receiving nutritional support with vital AF 1.2 at a rate of 10 ML per hour. Today's chest x-ray shows stable diffuse interstitial pattern with bilateral infiltrates and pleural effusion that are stable in appearance. His labs have been reviewed showing with blood cell count of 13.8, hemoglobin of 8.9, sodium 144, potassium is 3.6, chloride is 113, and the rest of electrolytes and renal profile were unremarkable. Patient is passing some liquid green stools, abdomen is nontender, mid abdominal incision is clean dry and intact, he has been tolerating tube feedings. Patient is on antibiotics including daptomycin, Diflucan, and Zosyn On 03/04/2020 patient seen in follow-up in the intensive care unit, his been off all sedation for 48 hours, he remains very minimally responsive, she opens his eyes slightly to painful stimuli, still very drowsy, encephalopathic, remains on ventilator support, current vent settings are assist control mode of ventilation with a rate of 10, tidal legs 500, FiO2 of 40% and PEEP of 5, and dyspneic blood gases showed pO2 of 102, pCO2 34 and pH of 7.49. Patient is currently on 0.9 normal saline at rate of 100 ML per hour, levo fed is at 10 mics per minute, no other drips, vital AF for nutritional support at 17 with a goal 17. Has not been able to wean off the vasopressors, patient remains on Solu-Cortef Cortef at 50 mg every 12 hours, we'll adjust the dose to 26 hours. Patient is tolerating tube feedings, he is passing liquid bowel movements, fecal management system was inserted, is on antibiotics in the form of Zosyn and daptomycin. he has been afebrile, no new growth on his cultures. Abdomen is much less distended, is soft, his mid abdominal incision is clean dry and intact, yvonne are intact, Lemus catheter is in place patient is producing 15-35 ML per hour. Chest x-ray showing basilar atelectasis, probable left pleural effusion, and there is some improvement in aeration of the right lung base. Remains on on anticoagulation in the form of Lovenox 60 mg twice daily. In sinus mechanism on the monitor. Patient has significant amount of generalized edema in his upper and lower extremities, and truncal edema. On 2019 patient seen in follow-up in the intensive care unit, she remains intubated, she still very lethargic, his Diprivan and has been on hold for last 72 hours, current vent settings are assist-control with a rate of 10, tidal volume is 500, FiO2 40%, and PEEP of 5. Patient had pressure-support trials , she was placed on assist-control mode overnight. No acute events overnight, currently down to 3.5 mics per minute on the levo fed infusion, 0.9 normal saline at 100 ML per hour, remains on the nutritional support with vital AF at a rate of 17 with a goal a 17, tolerating tube feedings well, he is passing liquid stools, fecal management system is in place, in sinus mechanism, his been afebrile, remains on antibiotics . Blood culture, ascites fluid cultures have been negative, sputum was only positive for Pita, patient is covered with Zosyn, daptomycin and Diflucan. Abdomen is soft, nontender, demonstrates incisions clean dry and intact, yvonne are intact. Patient has significant generalized edema, but has been requiring vasopressor support. Renal function is within normal limits, today's labs have been reviewed, sodium is 145, potassium is 3.3, chloride is 118, BUN 17 creatinine 0.7 On 03/06/2020 patient remains lethargic, he withdraws to painful stimuli, his Diprivan has been on hold for last 4 days, he is not given any narcotics or sedatives, per nursing staff at times she opens eyes to voice, and is able to weakly squeeze hands on command, appears to be no acute distress, remains on assist control mode of ventilation with a rate of 10, tidal and is 500, FiO2 of 40% and PEEP of 5, this point his blood gases show pO2 117, pCO2 34, and pH of 7.45, FiO2 is down to 35%, his creatinine 0.9 normal seen at a rate of 40 more per hour, levo fed is at 3 mics per minute. 2 feedings are on hold for tracheostomy and PEG tube placement today, yesterday he had paracentesis at the bedside with removal of 6 L of straw-colored ascitic fluid. Brain CT was com pleted showing cerebral atrophy, no acute intracranial abnormality. No change from most prior CT of the brain from 03/04/2020. Today's labs have been reviewed showing white blood cell count of 16.4, hemoglobin of 8.8, sodium 146, potassium 3.5, chloride is 122, CO2 24, B1 17 creatinine 0.71. he is afebrile. No new growth on the cultures, remains on empiric antibiotics, daptomycin, Zosyn. Objective - Vital Signs Vital signs: Vital Signs Temp 96.9 F L 03/06/20 04:00 Pulse 85 03/06/20 09:00 Resp 16 03/06/20 09:00 BP 73/44 03/06/20 01:00 Pulse Ox 100 03/06/20 09:00 Intake & Output 03/05/20 03/06/20 03/06/20 18:59 06:59 18:59 Intake Total 9778.701 4115 183 Output Total 6315 340 97 Balance -4640.099 1347 86 Weight 65.2 kg 62.9 kg Intake: IV 1433 1489 183 DAPTOmycin 350 mg In 50 Sodium Chloride 0.9% 50 ml @ 100 mls/hr IVPB Q24H JOANA Rx#:[id number] Piperacillin-Tazobactam 3 200 100 .375 gm In Sodium Chloride 0.9% 100 ml @ 25 mls/hr IVPB Q8HR JOANA Rx# :[id number] Potassium Chloride 20 meq 100 In Water For Injection 1 100ml.bag @ 50 mls/hr IVPB ONCE RUST Rx#: [id number] Pressure bag 33 39 3 Sodium Chloride 0.9% 1, 1100 1300 180 000 ml @ 100 mls/hr IV . Q10H JOANA Rx#:[id number] Intake, IV Titration 9.901 0 Amount Norepinephrine 32 mg In 9.901 0 Sodium Chloride 0.9% 218 ml @ 0.05 MCG/KG/MIN 1. 359 mls/hr IV .Q24H JOANA Rx#:[id number] Tube Feeding 172 138 Other 60 60 Output: Drainage 6000 Right Lower Lateral 6000 Abdomen Paracentesis site Urine 315 340 97 Other: Voiding Method Indwelling Catheter Indwelling Catheter ABP, PAP, CO, CI - Last Documented Arterial Blood Pressure 104/52 - Exam GENERAL EXAM: Intubated sedated 64-year-old white male, on assist-control mode of ventilation, in no acute distress HEAD: Normocephalic/atraumatic. EYES: Normal reaction of pupils, equal size. Conjunctiva pink, sclera white. NOSE: Clear with pink turbinates. THROAT: No erythema or exudates. NECK: No masses, no JVD, no thyroid enlargement, no adenopathy. CHEST: No chest wall deformity. Symmetrical expansion. LUNGS: Equal air entry with no crackles, wheeze, rhonchi or dullness. CVS: Regular rate and rhythm, normal S1 and S2, no gallops, no murmurs, no rubs ABDOMEN: Less distended and firm on today's exam compared to last week, no tenderness and indurated discoloration and redness near the surgical incision on the right abdomen significantly improved since last week, mid abdominal incision with yvonne intact EXTREMITIES: No clubbing, 1+ upper and lower extremity edema, patient has a weeping edema with the drainage from the catheter insertion sites no cyanosis, 2+ pulses and upper and lower extremities. MUSCULOSKELETAL: Muscle strength and tone normal. SPINE: No scoliosis or deformity SKIN: No rashes CENTRAL NERVOUS SYSTEM: Unable to assess, patient is sedated and intubated. No focal deficits, tone is normal in all 4 extremities. - Labs CBC & Chem 7: 03/06/20 05:00 03/06/20 05:00 Labs: Abnormal Lab Results - Last 24 Hours (Table) 03/05/20 03/05/20 03/05/20 Range/Units 10:00 13:12 17:38 WBC (3.8-10.6) k/uL RBC (4.30-5.90) m/uL Hgb (13.0-17.5) gm/dL Hct (39.0-53.0) % MCV (80.0-100.0) fL MCHC (31.0-37.0) g/dL RDW (11.5-15.5) % Macrocytosis ABG pCO2 (35-45) mmHg ABG pO2 (83-108) mmHg ABG O2 Saturation (94-97) % Sodium (137-145) mmol/L Potassium 3.3 L (3.5-5.1) mmol/L Chloride (98-107) mmol/L Glucose (74-99) mg/dL POC Glucose (mg/dL) 119 H 117 H (75-99) mg/dL Calcium (8.4-10.2) mg/dL 03/06/20 03/06/20 03/06/20 Range/Units 00:50 00:52 05:00 WBC 16.4 H (3.8-10.6) k/uL RBC 2.62 L (4.30-5.90) m/uL Hgb 8.8 L (13.0-17.5) gm/dL Hct 28.5 L (39.0-53.0) % MCV 108.9 H (80.0-100.0) fL MCHC 30.9 L (31.0-37.0) g/dL RDW 16.1 H (11.5-15.5) % Macrocytosis Marked A ABG pCO2 (35-45) mmHg ABG pO2 (83-108) mmHg ABG O2 Saturation (94-97) % Sodium (137-145) mmol/L Potassium 2.9 L (3.5-5.1) mmol/L Chloride (98-107) mmol/L Glucose (74-99) mg/dL POC Glucose (mg/dL) 122 H (75-99) mg/dL Calcium (8.4-10.2) mg/dL 03/06/20 03/06/20 03/06/20 Range/Units 05:00 05:04 05:35 WBC (3.8-10.6) k/uL RBC (4.30-5.90) m/uL Hgb (13.0-17.5) gm/dL Hct (39.0-53.0) % MCV (80.0-100.0) fL MCHC (31.0-37.0) g/dL RDW (11.5-15.5) % Macrocytosis ABG pCO2 34 L (35-45) mmHg ABG pO2 117 H (83-108) mmHg ABG O2 Saturation 98.9 H (94-97) % Sodium 146 H (137-145) mmol/L Potassium (3.5-5.1) mmol/L Chloride 122 H (98-107) mmol/L Glucose 122 H (74-99) mg/dL POC Glucose (mg/dL) 119 H (75-99) mg/dL Calcium 7.8 L (8.4-10.2) mg/dL Assessment and Plan Plan: Assessment: #1. Acute hypoxic respiratory failure related to septic shock, with a possib ility of abdominal sepsis, although cultures from the paracentesis fluid have been negative #2. Acute cardiac pulmonary arrest on 02/26/2020 related to septic shock, patient required a brief CPR, was emergently intubated and fluid resuscitated, remains on high amount of vasopressor support currently in the form of norepinephrine and vasopressin #3. Increased bibasilar opacities and new small bilateral pleural effusions on the chest x-ray, related to fluid overload #4. Abdominal pain and distention, improved post-paracentesis, patient had over 8 L of fluid drained from his peritoneal cavity #5. Massive ascites, status post high-volume paracentesis, on 02/27/2020 with removal of 4.5 L of ascitic fluid, and repeat paracentesis on 2019 would removal of 6 L of fluid #6. Non-anion gap metabolic acidosis related to septic shock, and has received IV fluids and bicarbonate infusion, resolved #7. Volume contraction alkalosis, secondary to paracentesis and diuretic therapy #8. Elevated d-dimer, nonspecific, doubt possibility of pulmonary embolism. CTA chest was suboptimal but did not reveal any evidence of central pulmonary embolism, VQ scan showed intermediate probability for pulmonary embolism, patient was found to have a new left leg DVT, was on Eliquis which we will place on hold right now in view of acute decompensation, and possible need for surgical intervention in view of septic shock, with a suspicion of intra- abdominal source #9. Diverticulitis, status post lower anterior resection, takedown of splenic flexure and partial omentectomy #10. Alcohol abuse with alcohol withdrawal #11. Recent history dark black stools the possibility of upper GI bleeding #12. Altered mental status, related to metabolic encephalopathy, neurology is following #13. History of diverticular disease #14. History of EtOH abuse Plan: We'll continue current vent settings, continue antibiotics per ID service recommendations, today's chest x-ray blood gases reviewed, labs reviewed, no changes, continue current medical treatment, patient is going for tracheostomy and PEG tube placement today I performed a history & physical examination of the patient and discussed their management with my nurse practitioner, Felipa Matute. I reviewed the nurse practitioner's note and agree with the documented findings and plan of care. Lung sounds are positive for clear breath sounds throughout the lung arias. The findings and the impression was discussed with the patient. I attest to the documentation by the nurse practitioner. Time with Patient: Greater than 30
[2020-03-06] MEDS ORDERED: MIDAZOLAM 2 MG/2 ML VIAL ONE (10:18)
[2020-03-06] MEDS ORDERED: fentaNYL (PF) 50 MCG/ML 2 ML AMP ONE (10:18)
[2020-03-06] MEDS ORDERED: PHENYLEPHRINE 10 MG/ML VIAL ONE (10:18)
[2020-03-06] MEDS ORDERED: ROCURONIUM 10 MG/ML (10 ML VIAL) IV ONE (10:18)
[2020-03-06] MEDS ORDERED: LACTATED RINGERS 1,000 ML IV ONE (10:27)
[2020-03-06] MEDS ORDERED: LIDOCAINE (PF) 10 MG/ML 2 ML VIAL SQ ONE (10:58)
--- NOTE | 2020-03-06 12:11 | P.OP ---
Date of Procedure: 03/06/20 Preoperative Diagnosis: Respiratory failure Postoperative Diagnosis: Respiratory failure Procedure(s) Performed: Tracheostomy Anesthesia: MORGAN Surgeon: Hiram Lee Estimated Blood Loss (ml): 10 Pathology: none sent Condition: stable Disposition: PACU Description of Procedure: The patient's placed on the operating table in the supine position. He received general anesthesia. His neck was prepped in usual fashion. Standard Roby incision was made approximately 2 cm above the sternal notch. Using cautery the platysma was divided. The strap muscles were divided midline. The trachea was exposed. A tracheotomy was then performed between the second and third endotracheal rings. The #8 Portex endotracheal tube was placed in the trachea the balloon was inflated and then the patient's current ventilator and tidal CO2 was confirmed. The incision was closed with 3-0 nylon. Trach tie was applied. Patient top procedure well. At this point the gastroscope oropharynx. The esophagus could not be intubated due to significant swelling the hypopharynx. This point the EGD was terminated. Patient will be brought back for PEG tube placement other day.
[2020-03-06 12:15] LABS: Glucose,Whole Blood 113 mg/dL (75-99)
[2020-03-06] MEDS: ENOXAPARIN 60 MG/0.6 ML SYRINGE SQ SCH ×2 (12:19→20:54)
--- NOTE | 2020-03-06 16:56 | PN ---
PROGRESS NOTE DATE OF SERVICE: 03/06/2020 REASON FOR FOLLOWUP: Pneumonia, abdominal wall cellulitis. INTERVAL HISTORY: The patient is currently afebrile. Patient is status post tracheostomy, in fact it could not be placed because of swelling. The patient is hemodynamically stable, not on pressor support. FiO2 is currently stable at 35%. No significant . PHYSICAL EXAMINATION: Blood pressure 100/61 pulse 84, temp 98, he is 99% on 35% FiO2. General description is a middle-aged male, lying in bed in no distress. RESPIRATORY SYSTEM: Unlabored breathing, coarse breath sounds bilaterally. HEART: S1, S2. Regular rate and rhythm. ABDOMEN: Soft, mildly distended. No guarding. LABS: Hemoglobin is 8.4, white count 16.4, BUN of 17, creatinine 0.71. DIAGNOSTIC IMPRESSION AND PLAN: Patient with acute respiratory failure which is multifactorial in this patient who did have a cardiac arrest with concern for anoxic encephalopathy, possible pneumonia. The patient has received adequate antibiotic therapy in the form of Diflucan and daptomycin, day 2. We will monitor clinical course closely. Continue supportive care. MMODL / IJN: [id number] /
[2020-03-06] MEDS: NOREPINEPHRINE 32 MG in SODIUM CHLORIDE 0.9% 218 ML IV SCH (17:42)
[2020-03-06 17:53] LABS: Glucose,Whole Blood 117 mg/dL (75-99)
--- NOTE | 2020-03-06 19:11 | P.PN ---
Progress Note - Text Progress Note Date: 03/06/20 - Chief Complaint Abdominal surgery History of presenting complaint: This is a pleasant 64-year-old patient of . Patient been having complication to his diverticulitis. computed tomography scan on January 08. Showed some possible stricture. Hepatic steatosis. February 06- undergone low anterior resection. Epidural for pain control.patient had elevated d-dimer. Pulmonary embolism felt to be unlikely. CT was suboptimal. VQ scan was intermediate probability. Leg DVT treated with IV heparin. Had some dark stools.also patient had had altered mental status. [place] to be encephalopathy.computed tomography scan of the brain was unremarkable. EGD-no evidence of bleeding. Patient more awake after dose of baclofen cutback. changed over to xarelto.x-ray showing ileus. Patient did start having bowel movements. Repeat computed tomography scan of abdomen showed possible enteritis./Colitis.as abdomen appeared distended. Lemus catheter was placed. No urine retention.-patient become hypotensive. Had a brief cardiac and pulmonary arrest Moved to ICU. Had to be intubated. Drips include norepinephrine, vasopressin, propofol. NG tube to suction.also treated for aspiration pneumonia and abdominal wall cellulitis.ascitic fluid that was tapped was unremarkable.4.5 L of acetic fluid removed. On March 06 underwent tracheostomy. Today. ICU-on the ventilator. FiO2 35, PEEP of 5. There is a small dose of norepinephrine. Today Dr. Lee placed a tracheostomy. Patient has a FMS with Liquid Stools.. Review of systems: Patient intubated Active Medications Acetazolamide (Acetazolamide 250 Mg Tab) 250 mg PO BID [facility] Last Admin: 03/06/20 08:28 Dose: Not Given Documented by: Albuterol/Ipratropium (Ipratropium-Albuterol 3 Ml Neb) 3 ml INHALATION RT-Q4H [facility] Last Admin: 03/06/20 16:10 Dose: 3 ml Documented by: Albuterol/Ipratropium (Ipratropium-Albuterol 3 Ml Neb) 3 ml INHALATION RT-Q2H PRN PRN Reason: Shortness Of Breath Or Wheezing Chlorhexidine Gluconate (Chlorhexidine Gluconate 15 Ml Cup) 15 ml MUCOUS MEM BID [facility] Last Admin: 03/06/20 08:32 Dose: 15 ml Documented by: Enoxaparin Sodium (Enoxaparin 60 Mg/0.6 Ml Syringe) 60 mg SQ BID [facility] Last Admin: 03/06/20 12:19 Dose: 60 mg Documented by: Ferrous Sulfate (Ferrous Sulfate Oral Elixir 300 Mg/5 Ml Cup) 300 mg PO BID- W/MEALS [facility] Last Admin: 03/06/20 17:39 Dose: Not Given Documented by: Folic Acid (Folic Acid 1 Mg Tab) 1 mg OG-TUBE DAILY [facility] Last Admin: 03/06/20 08:28 Dose: Not Given Documented by: Hydrocortisone Sodium Succinate (Hydrocortisone Succinate 100 Mg/2 Ml Vial) 50 mg IV Q6HR [facility] Last Admin: 03/06/20 17:41 Dose: 50 mg Documented by: Piperacillin Sod/Tazobactam (Sod 3.375 gm/ Sodium Chloride) 100 mls @ 25 mls/hr IVPB Q8HR [facility] Last Admin: 03/06/20 17:42 Dose: 25 mls/hr Documented by: Daptomycin 350 mg/ Sodium (Chloride) 50 mls @ 100 mls/hr IVPB Q24H [facility]; Protocol Last Admin: 03/06/20 00:39 Dose: 100 mls/hr Documented by: Fluconazole/Sodium Chloride (100 mg/ IV Solution) 50 mls @ 50 mls/hr IVPB DAILY [facility] Last Admin: 03/06/20 08:34 Dose: 50 mls/hr Documented by: Norepinephrine Bitartrate 32 (mg/ Sodium Chloride) 250 mls @ 1.359 mls/hr IV .Q24H [facility]; Protocol Last Admin: 03/06/20 17:42 Dose: 0.05 mcg/kg/min, 1.359 mls/hr Documented by: Sodium Chloride (Saline 0.9%) 1,000 mls @ 40 mls/hr IV .Q24H [facility] Last Admin: 03/06/20 12:19 Dose: 40 mls/hr Documented by: Insulin Aspart (Insulin Aspart (Novolog) 100 Unit/Ml Vial) 0 unit SQ Q6H [facility]; Protocol Last Admin: 03/06/20 18:01 Dose: Not Given Documented by: Metoclopramide HCl (Metoclopramide 5 Mg/Ml 2 Ml Vial) 10 mg IVP Q6HR PRN PRN Reason: Nausea and Vomiting Miscellaneous Information (Magnesium Replacement Protocol 1 Each Misc) 1 each MISCELLANE DAILY PRN; Protocol PRN Reason: Per Protocol Miscellaneous Information (Potassium Replacement Protocol 1 Each Misc) 1 each MISCELLANE DAILY PRN; Protocol PRN Reason: Per Protocol Miscellaneous Information (Potassium Replacement Protocol 1 Each Misc) 1 each MISCELLANE DAILY PRN; Protocol PRN Reason: Per Protocol Miscellaneous Information (Potassium Replacement Protocol 1 Each Misc) 1 each MISCELLANE DAILY PRN; Protocol PRN Reason: Per Protocol Ondansetron HCl (Ondansetron 4 Mg/2 Ml Vial) 4 mg IVP Q8HR PRN PRN Reason: Nausea And Vomiting Pantoprazole Sodium (Pantoprazole 40 Mg/10 Ml Vial) 40 mg IVP BID [facility] Last Admin: 03/06/20 08:32 Dose: 40 mg Documented by: Tamsulosin HCl (Tamsulosin 0.4 Mg Cap.Er.24h) 0.4 mg PO HS [facility] Last Admin: 03/05/20 21:05 Dose: 0.4 mg Documented by: Thiamine HCl (Thiamine 100 Mg/Ml 2 Ml Vial) 100 mg IVP DAILY [facility] Last Admin: 03/06/20 08:33 Dose: 100 mg Documented by: Physical examination: VITAL SIGNS: 97, 89, 10, 113/62, 99% on the ventilator GENERAL: Laying in bed, intubated EYES: Pupils equal. Conjunctiva normal. HEENT:, Dry oral cavity NECK: JVD unable to assess; masses not palpable. Tracheostomy tube HEART: First and second heart sounds are normal; some edema LUNGS: Respiratory rate increased; decreased breath sounds. ABDOMEN: Soft, less distended nontender, , area of subcutaneous swelling around the incision site. PSYCH: Patient sedated INVESTIGATIONS, reviewed in the clinical context: White count 16.4 hemoglobin 8.8 platelets 276 potassium 3.5 creatinine 0.71 Previous testing EEG shows evidence of encephalopathy Computed tomography scan of the brain-mild atrophy 2-D echocardiogram-EF 55-60% VQ scan-intermediate probability Chest CTA-suboptimal study. Doppler ultrasound-positive for thrombus within the distal popliteal vein White count 10.2 hemoglobin 14.2 potassium 3.6 B12 some 08 Previously AST 129 ALT 50 Computed tomography scan of the abdomen from January 08-possible colitis, diverticulitis, some esophagitis, hepatic steatosis Abdominal x-ray film personally reviewed by me shows ileus Sputum growing [place] Assessment: -Acute hypoxic respiratory failure, requiring ventilator support-slow to respond -Septic shock -Status post low anterior resection, for diverticulitis complication -Postop ileus- -Chronic nicotine dependence patient cigarette smoker -Clinical emphysema, asymptomatic -Suspect alcoholic hepatitis -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 Repeat paracentesis. 4.5 L. -Mild hyponatremia -Macrocytic anemia. -Acute DVT in the left distal popliteal vein -Acute alcohol withdrawal syndrome with improvement -Right lower lobe pneumonia -Mild protein calorie malnutrition from decreased oral intake -Tracheostomy tube placed on March 06 -Metabolic encephalopathy Plan: ICU-continue with IV daptomycin, Diflucan, IV Zosyn. Paracentesis repeated today. 2 feeding to continue. Tracheostomy done today by Dr. Lee. Thank you Dr. Lee
[2020-03-06 20:04] LABS: Glucose,Whole Blood 120 mg/dL (75-99)
[2020-03-06] MEDS: TAMSULOSIN 0.4 MG CAP.ER.24H PO SCH (20:24)
[2020-03-06 23:57] LABS: Glucose,Whole Blood 119 mg/dL (75-99)
[2020-03-07] MEDS: DAPTOmycin 350 MG in SODIUM CHLORIDE 0.9% 50 ML IVPB SCH (00:53)
[2020-03-07] MEDS: IPRATROPIUM-ALBUTEROL 3 ML NEB INHALATION SCH ×7 (01:42→23:36)
[2020-03-07 05:03] LABS: ABG Base Excess -3.1 mmol/L; ABG HCO3 21 mmol/L (21-25); ABG Oxygen Saturation 99.5 % (94-97); ABG PCO2 31 mmHg (35-45); ABG PH 7.44 (7.35-7.45); ABG PO2 99 mmHg (83-108); ABG TCO2 22 mmol/L (19-24); Allen Test Performed? Yes
[2020-03-07] MEDS: HYDROCORTISONE SUCCINATE 100 MG/2 ML VIAL IV SCH ×3 (06:45→18:01)
[2020-03-07] MEDS: FERROUS SULFATE ORAL ELIXIR 300 MG/5 ML CUP PO SCH ×2 (06:46→17:11)
[2020-03-07 06:53] LABS: Glucose,Whole Blood 116 mg/dL (75-99)
[2020-03-07] MEDS: INSULIN ASPART (NovoLOG) 100 UNIT/ML VIAL SQ SCH ×3 (06:53→17:58)
[2020-03-07 07:00] LABS: Anisocytosis Slight; Basophils % (A) 0 %; Eosinophils % (A) 0 %; HCT 31.4 % (39.0-53.0); HGB 9.8 gm/dL (13.0-17.5); Hypochromasia Marked; Lymphocytes # (A) 1.3 k/uL (1.0-4.8); Lymphocytes % (A) 6 %; MCHC 31.1 g/dL (31.0-37.0); MCV 109.2 fL (80.0-100.0); Macrocytosis Marked; Mean Platelet Volume 9.4; Monocytes # (A) 0.9 k/uL (0-1.0); Monocytes % (A) 4 %; Neutrophils # (A) 21.5 k/uL (1.3-7.7); Neutrophils % (A) 90 %; Platelet Count 366 k/uL (150-450); Poikilocytosis Slight; RBC 2.88 m/uL (4.30-5.90); RDW 16.7 % (11.5-15.5)
[2020-03-07 07:11] LABS: ALT 41 U/L (4-49); AST 44 U/L (17-59); African American GFR (CKD) >90 (>60 ml/min/1.73 sqM); Albumin 1.9 g/dL (3.5-5.0); Alkaline Phosphatase 158 U/L (38-126); Anion Gap 1 mmol/L; Blood Urea Nitrogen 18 mg/dL (9-20); Calcium 8.2 mg/dL (8.4-10.2); Carbon Dioxide 22 mmol/L (22-30); Chloride 123 mmol/L (98-107); Glucose 116 mg/dL (74-99); Non-African American GFR(CKD) >90 (>60 ml/min/1.73 sqM); Potassium 3.7 mmol/L (3.5-5.1); Sodium 146 mmol/L (137-145); Total Bilirubin 0.3 mg/dL (0.2-1.3); Total Protein 4.7 g/dL (6.3-8.2)
[2020-03-07] MEDS: PIPERACILLIN-TAZOBACTAM 3.375 GM in SODIUM CHLORIDE 0.9% 100 ML IVPB SCH ×2 (09:35→15:48)
[2020-03-07] MEDS: CHLORHEXIDINE GLUCONATE 15 ML CUP MUCOUS MEM SCH ×2 (09:36→21:31)
[2020-03-07] MEDS: ENOXAPARIN 60 MG/0.6 ML SYRINGE SQ SCH ×2 (09:38→21:31)
[2020-03-07] MEDS: FLUCONAZOLE IN NACL,ISO-OSM 100 MG in SALINE 1 50ML.BAG IVPB SCH (09:38)
[2020-03-07] MEDS: THIAMINE 100 MG/ML 2 ML VIAL IVP SCH (09:39)
[2020-03-07] MEDS: PANTOPRAZOLE 40 MG/10 ML VIAL IVP SCH ×2 (09:39→21:33)
--- NOTE | 2020-03-07 09:57 | P.PN ---
Subjective Progress Note Date: 03/07/20 Principal diagnosis: Intermediate probability VQ scan, rule out possibility of pulmonary embolism This is a 64-year-old white male patient status post low anterior resection for strictures and diverticular disease, and this is postoperative day #6. Following his surgery on February 08 patient had a thrombus discomfort within the distal popliteal vein in his left leg, on the liver night patient had a CT angiogram of the chest which was a suboptimal study and did not reveal any large saddle all of central pulmonary emboli. The computed tomography scan showed evidence of small bilateral pleural effusions and multifocal groundglass opacities that could relate to pulmonary edema and/or pneumonia. His chest x- ray from February 11 showed bilateral infiltrates that could be consistent with pneumonia or heart failure. VQ scan showed indeterminate probability for pulmonary embolism. Patient has been confused, apparently he does have history of chronic EtOH, but it has been 60 since his admission, he remains very confused, he is on 3 L of oxygen and the pulse ox of 95%, he was started on heparin infusion for DVT in his left leg. We did not think there was a pulmonar y embolism based on his workup. His brain CT showed no acute intracranial abnormality. In addition there is a possibility of GI bleeding as the patient has been passing some dark stools. Is not appear to be in any respiratory distress, he remains lethargic, confused. Neurology is following, EEGs in progress. Dr. Araujo is planning on EGD tomorrow for evaluation of black stools. On 02/14/2020 patient seen in follow-up on general medical surgical floor his heparin drip is off, his 0.9 normal saline running at 75 ML per hour, appears to be more awake on today's exam, although still confused, she is only oriented to percent, no agitation. No signs of respiratory difficulty, he is on 3 L of oxygen pulse ox is 95%, hemodynamically stable, his abdomen is slightly tender postsurgery, his incision covered with dressing, his been afebrile, breathing is nonlabored, lung sounds reveal a few basilar crackles, no rhonchi or wheezing. Surgery is planned and on EGD today, neurology is following, EEG revealed background slowing of moderate degree suggestive of generalized cerebral dysfunction related to toxic metabolic encephalopathy. Today's hemoglobin is 8.6, had one bowel movement this morning. On 02/15/2020 patient seen in follow-up on general medical surgical floor, patient had EGD done yesterday which did not reveal any active bleeding, patient was restarted on heparin infusion for evidence of DVT in his lower extremity, no worsening dyspnea, patient is still on and off lethargic, but appears to be in no acute distress. He is on 3 L of oxygen pulse ox of 95%, his been afebrile, completed chest pain. No hemoptysis. Today's hemoglobin is 9.0. On 02/25/2020 we were reconsulted in view of significant clinical deterioration last night, rapid response team was called, alva gama was activated at 0243 in the morning on 02/26/2020. Apparently patient was having ongoing abdominal pain for the past few days prior to the event, he was believed to have ileus. His abdominal CT of abdomen and pelvis was done on 02/19/2020 showing postoperative changes in the sigmoid colon, proximal to this level there was abnormal thickening of the right colon, some thickened small bowel loops were also present, no is no evidence of free air, there was evidence of increased amount of ascites. There was interval development of bilateral pleural effusions and associated atelectasis. Past few days patient also developed a low urine output urology also consulted on the case for difficult Lemus insertion and possible urinary retention. Yesterday on 02/25/2020 ultrasound abdomen showed moderate ascites in the right flank. His abdomen continued to be more distended and painful, patient was eating some oral intake, however his blood pressures were running on the lower side, his urine output continued to be low, there was paracentesis planned a possibility of ascites. Last night patient developed hypothermia, and hypotension. Patient became unresponsive, and there was no pal pable pulse. CPR was started and immediately patient became responsive, CPR was stopped, patient was emergently intubated placed on mechanical ventilator and transferred to the intensive care unit. ID service has been following, patient's antibiotic coverage includes daptomycin. This morning he seen in the intensive care unit, sedated, intubated, on assist-control mode of ventilation, with a rate of 16, tidal planning is 500, FiO2 of 50%, and PEEP of 5. This was blood gases showed pO2 of 88, pCO2 of 29, and pH is 7.34. Patient is hypotensive, he is requiring levo fed at 0.43 mics per kilo per minute over 25 mics per minute, Diprivan and is at 40 mics per kilo per minute, patient has rec eived fluid resuscitation, yesterday she had received 2 L of fluid from the surgical team earlier in the day, and he received additional 2 L bolus after his cardiac pulmonary arrest early this morning, his maintenance IV fluids are currently infusing at a rate of 75 ML per hour. Patient kidney to be hypotensive, we gave him an additional liter fluid bolus today, and she will be started on a vasopressin infusion for refractory hypotension. Blood cultures have been sent, pending at this time. Prior blood cultures and sputum culture. Patient's abdomen remains very tense, distended, firm, with the area of redness and discoloration, and induration near the mid abdominal surgical incision. Avinash srinivasan has a lot of generalized swelling, he is weeping from the catheter insertion sites. He had right femoral central line catheter placed by Dr. Jarrell at the bedside and a right radial art line placed for close hemodynamic monitoring. This morning's lab work has been reviewed showing squamous cell count of 21.8, hemoglobin of 8.9, sodium of 137, potassium is 4.1, chloride is 119, CO2 is 10, BUN is 10 and creatinine 0.64, patient was given 2 A of sodium bicarbonate. On 03/03/2020 patient seen in follow-up in the intensive care unit, he remains intubated, and sedated, on assist-control mode of ventilation, with a rate of 10, tidal lung is 500, FiO2 of 50% and PEEP of 5, this morning blood gases revealed pO2 of 116, pCO2 37, and pH of 7.51. His current IVs include 0.9 normal seen at a rate of 10 ML per hour, levothyroid is a 6 mics per minute, propofol is currently off, and patient is receiving nutritional support with vital AF 1.2 at a rate of 10 ML per hour. Today's chest x-ray shows stable diffuse interstitial pattern with bilateral infiltrates and pleural effusion that are stable in appearance. His labs have been reviewed showing with blood cell count of 13.8, hemoglobin of 8.9, sodium 144, potassium is 3.6, chloride is 113, and the rest of electrolytes and renal profile were unremarkable. Patient is passing some liquid green stools, abdomen is nontender, mid abdominal incision is clean dry and intact, he has been tolerating tube feedings. Patient is on antibiotics including daptomycin, Diflucan, and Zosyn On 03/04/2020 patient seen in follow-up in the intensive care unit, his been off all sedation for 48 hours, he remains very minimally responsive, she opens his eyes slightly to painful stimuli, still very drowsy, encephalopathic, remains on ventilator support, current vent settings are assist control mode of ventilation with a rate of 10, tidal legs 500, FiO2 of 40% and PEEP of 5, and dyspneic blood gases showed pO2 of 102, pCO2 34 and pH of 7.49. Patient is currently on 0.9 normal saline at rate of 100 ML per hour, levo fed is at 10 mics per minute, no other drips, vital AF for nutritional support at 17 with a goal 17. Has not been able to wean off the vasopressors, patient remains on Solu-Cortef Cortef at 50 mg every 12 hours, we'll adjust the dose to 26 hours. Patient is tolerating tube feedings, he is passing liquid bowel movements, fecal management system was inserted, is on antibiotics in the form of Zosyn and daptomycin. he has been afebrile, no new growth on his cultures. Abdomen is much less distended, is soft, his mid abdominal incision is clean dry and intact, yvonne are intact, Lemus catheter is in place patient is producing 15-35 ML per hour. Chest x-ray showing basilar atelectasis, probable left pleural effusion, and there is some improvement in aeration of the right lung base. Remains on on anticoagulation in the form of Lovenox 60 mg twice daily. In sinus mechanism on the monitor. Patient has significant amount of generalized edema in his upper and lower extremities, and truncal edema. On 2019 patient seen in follow-up in the intensive care unit, she remains intubated, she still very lethargic, his Diprivan and has been on hold for last 72 hours, current vent settings are assist-control with a rate of 10, tidal volume is 500, FiO2 40%, and PEEP of 5. Patient had pressure-support trials , she was placed on assist-control mode overnight. No acute events overnight, currently down to 3.5 mics per minute on the levo fed infusion, 0.9 normal saline at 100 ML per hour, remains on the nutritional support with vital AF at a rate of 17 with a goal a 17, tolerating tube feedings well, he is passing liquid stools, fecal management system is in place, in sinus mechanism, his been afebrile, remains on antibiotics . Blood culture, ascites fluid cultures have been negative, sputum was only positive for Pita, patient is covered with Zosyn, daptomycin and Diflucan. Abdomen is soft, nontender, demonstrates incisions clean dry and intact, yvonne are intact. Patient has significant generalized edema, but has been requiring vasopressor support. Renal function is within normal limits, today's labs have been reviewed, sodium is 145, potassium is 3.3, chloride is 118, BUN 17 creatinine 0.7 On 03/06/2020 patient remains lethargic, he withdraws to painful stimuli, his Diprivan has been on hold for last 4 days, he is not given any narcotics or sedatives, per nursing staff at times she opens eyes to voice, and is able to weakly squeeze hands on command, appears to be no acute distress, remains on assist control mode of ventilation with a rate of 10, tidal and is 500, FiO2 of 40% and PEEP of 5, this point his blood gases show pO2 117, pCO2 34, and pH of 7.45, FiO2 is down to 35%, his creatinine 0.9 normal seen at a rate of 40 more per hour, levo fed is at 3 mics per minute. 2 feedings are on hold for tracheostomy and PEG tube placement today, yesterday he had paracentesis at the bedside with removal of 6 L of straw-colored ascitic fluid. Brain CT was com pleted showing cerebral atrophy, no acute intracranial abnormality. No change from most prior CT of the brain from 03/04/2020. Today's labs have been reviewed showing white blood cell count of 16.4, hemoglobin of 8.8, sodium 146, potassium 3.5, chloride is 122, CO2 24, B1 17 creatinine 0.71. he is afebrile. No new growth on the cultures, remains on empiric antibiotics, daptomycin, Zosyn. On 03/07/2020 patient seen in follow-up in the intensive care unit. Yesterday he had his tracheostomy placed, this morning she remains on assist-control mode of ventilation with a rate of 10, tidal legs 500, FiO2 of 35% and PEEP of 5, this morning blood gases reveal pO2 of 99%, pCO2 31, and pH of 7.44. He remains quite encephalopathic, sleepy, withdraws from painful stimuli but he is unable to follow commands, he has a severe generalized weakness and swelling, he is unable to squeeze hands on command. Currently on 0.9 normal seen at a rate of 50 ML per hour, levo fed is at 0.06 mics per kilo per minute, no other drips, his tube feedings are on hold, yesterday PEG tube could not be placed related to abdominal wall edema, may have to place a Dobbhoff tube for tube feedings. Last night NG tube placement attempts were unsuccessful. Lung sounds are clear, diminished at the bases, his abdomen is soft, slightly tender, abdominal incision is clean dry and intact, yvonne are intact. Patient is status post large volume paracentesis the day before yesterday would removal of 6 L of ascitic fluid. Antibiotics in the form of daptomycin, fluconazole, and Zosyn. Patient has been afebrile, no new growth on the cultures. And is producing liquid stool, fecal management system is in place. Objective - Vital Signs Vital signs: Vital Signs Temp 97.4 F L 03/07/20 08:00 Pulse 107 H 03/07/20 09:00 Resp 14 03/07/20 09:00 BP 98/66 03/07/20 09:00 Pulse Ox 97 03/07/20 09:00 Intake & Output 03/06/20 03/07/20 03/07/20 18:59 06:59 18:59 Intake Total 809.428 348.633 86 Output Total 239 165 75 Balance 570.428 183.633 11 Weight 62.9 kg Intake: IV 803 341 86 Piperacillin-Tazobactam 3 100 .375 gm In Sodium Chloride 0.9% 100 ml @ 25 mls/hr IVPB Q8HR JOANA Rx# :[id number] Pressure bag 3 21 6 Sodium Chloride 0.9% 1, 300 320 80 000 ml @ 40 mls/hr IV . Q24H JOANA Rx#:[id number] Intake, IV Titration 6.428 7.633 Amount Norepinephrine 32 mg In 6.428 7.633 Sodium Chloride 0.9% 218 ml @ 0.05 MCG/KG/MIN 1. 359 mls/hr IV .Q24H JOANA Rx#:[id number] Output: Urine 237 165 75 Estimated Blood Loss 2 Other: Voiding Method Indwelling Catheter Indwelling Catheter ABP, PAP, CO, CI - Last Documented Arterial Blood Pressure 127/66 - Exam GENERAL EXAM: Intubated sedated 64-year-old white male, trached to the mechanical ventilator on assist-control mode of ventilation, in no acute distress HEAD: Normocephalic/atraumatic. EYES: Normal reaction of pupils, equal size. Conjunctiva pink, sclera white. NOSE: Clear with pink turbinates. THROAT: No erythema or exudates. NECK: No masses, no JVD, no thyroid enlargement, no adenopathy. Midline tr acheostomy in place, patient connected to the ventilator with assist control mode of ventilation CHEST: No chest wall deformity. Symmetrical expansion. LUNGS: Equal air entry with no crackles, wheeze, rhonchi or dullness. CVS: Regular rate and rhythm, normal S1 and S2, no gallops, no murmurs, no rubs ABDOMEN: Less distended and firm on today's exam compared to last week, mild tenderness to palpation, rigidity, and abdominal incision is clean dry and intact, well approximated and healed, yvonne are in place, intact EXTREMITIES: No clubbing, 1+ upper and lower extremity edema, patient has a w eeping edema with the drainage from the catheter insertion sites no cyanosis, 2+ pulses and upper and lower extremities. MUSCULOSKELETAL: Muscle strength and tone normal. SPINE: No scoliosis or deformity SKIN: No rashes CENTRAL NERVOUS SYSTEM: Unable to assess, patient is sedated and intubated. No f ocal deficits, tone is normal in all 4 extremities. - Labs CBC & Chem 7: 03/07/20 06:05 03/07/20 06:05 Labs: Abnormal Lab Results - Last 24 Hours (Table) 03/06/20 03/06/20 03/06/20 Range/Units 12:13 17:51 20:00 WBC (3.8-10.6) k/uL RBC (4.30-5.90) m/uL Hgb (13.0-17.5) gm/dL Hct (39.0-53.0) % MCV (80.0-100.0) fL RDW (11.5-15.5) % Neutrophils # (1.3-7.7) k/uL Macrocytosis ABG pCO2 (35-45) mmHg ABG O2 Saturation (94-97) % Sodium (137-145) mmol/L Potassium 3.4 L (3.5-5.1) mmol/L Chloride (98-107) mmol/L Glucose (74-99) mg/dL POC Glucose (mg/dL) 113 H 117 H (75-99) mg/dL Calcium (8.4-10.2) mg/dL Alkaline Phosphatase (38-126) U/L Total Protein (6.3-8.2) g/dL Albumin (3.5-5.0) g/dL 03/06/20 03/06/20 03/07/20 Range/Units 20:02 23:55 05:00 WBC (3.8-10.6) k/uL RBC (4.30-5.90) m/uL Hgb (13.0-17.5) gm/dL Hct (39.0-53.0) % MCV (80.0-100.0) fL RDW (11.5-15.5) % Neutrophils # (1.3-7.7) k/uL Macrocytosis ABG pCO2 31 L (35-45) mmHg ABG O2 Saturation 99.5 H (94-97) % Sodium (137-145) mmol/L Potassium (3.5-5.1) mmol/L Chloride (98-107) mmol/L Glucose (74-99) mg/dL POC Glucose (mg/dL) 120 H 119 H (75-99) mg/dL Calcium (8.4-10.2) mg/dL Alkaline Phosphatase (38-126) U/L Total Protein (6.3-8.2) g/dL Albumin (3.5-5.0) g/dL 03/07/20 03/07/20 03/07/20 Range/Units 06:05 06:05 06:52 WBC 24.0 H (3.8-10.6) k/uL RBC 2.88 L (4.30-5.90) m/uL Hgb 9.8 L (13.0-17.5) gm/dL Hct 31.4 L (39.0-53.0) % MCV 109.2 H (80.0-100.0) fL RDW 16.7 H (11.5-15.5) % Neutrophils # 21.5 H (1.3-7.7) k/uL Macrocytosis Marked A ABG pCO2 (35-45) mmHg ABG O2 Saturation (94-97) % Sodium 146 H (137-145) mmol/L Potassium (3.5-5.1) mmol/L Chloride 123 H (98-107) mmol/L Glucose 116 H (74-99) mg/dL POC Glucose (mg/dL) 116 H (75-99) mg/dL Calcium 8.2 L (8.4-10.2) mg/dL Alkaline Phosphatase 158 H (38-126) U/L Total Protein 4.7 L (6.3-8.2) g/dL Albumin 1.9 L (3.5-5.0) g/dL Assessment and Plan Plan: Assessment: #1. Acute hypoxic respiratory failure related to septic shock, with a possibili ty of abdominal sepsis, although cultures from the paracentesis fluid have been negative On 03/07/2020 patient remains trached to the mechanical ventilator on assist control mode of ventilation. Patient had a tracheostomy on 03/06/2020 #2. Acute cardiac pulmonary arrest on 02/26/2020 related to septic shock, patient required a brief CPR, was emergently intubated and fluid resuscitated, remains on high amount of vasopressor support currently in the form of norepinephrine and vasopressin #3. Increased bibasilar opacities and new small bilateral pleural effusions on the chest x-ray, related to fluid overload #4. Abdominal pain and distention, improved post-paracentesis, patient had over 8 L of fluid drained from his peritoneal cavity on 02/27/2020 #5. Massive ascites, status post high-volume paracentesis, on 02/27/2020 with removal of 8 L of ascitic fluid, and repeat paracentesis on 2019 would removal of 6 L of fluid #6. Non-anion gap metabolic acidosis related to septic shock, and has received IV fluids and bicarbonate infusion, resolved #7. Volume contraction alkalosis, secondary to paracentesis and diuretic therapy #8. Elevated d-dimer, nonspecific, doubt possibility of pulmonary embolism. CTA chest was suboptimal but did not reveal any evidence of central pulmonary embolism, VQ scan showed intermediate probability for pulmonary embolism, patient was found to have a new left leg DVT, was on Eliquis which we will place on hold right now in view of acute decompensation, and possible need for surgical intervention in view of septic shock, with a suspicion of intra- abdominal source #9. Diverticulitis, status post lower anterior resection, takedown of splenic flexure and partial omentectomy #10. Alcohol abuse with alcohol withdrawal #11. Recent history dark black stools the possibility of upper GI bleeding #12. Altered mental status, related to metabolic encephalopathy, neurology is following. On 03/07/2020 patient has been off Diprivan for the last 4 days, and he remains encephalopathic, sleepy, and unable to follow commands, withdraws from pain #13. History of diverticular disease #14. History of EtOH abuse Plan: Continue current medical treatment, antibiotics per ID service recommendations, continue weaning vasopressor support, continue holding sedation and narcotics. Patient is still encephalopathic, not following command, but withdrawing from pain, blood gases have been reviewed, showing acceptable oxygenation and ve ntilation, we'll proceed with per support trials PSV of 5, and CPAP of 5. We'll insert a Dobbhoff tube for nutritional support, continue GI and DVT prophylaxis, no acute events overnight, we'll obtain chest x-ray today. We'll continue to closely follow. I performed a history & physical examination of the patient and discussed their management with my nurse practitioner, Felipa Matute. I reviewed the nurse practitioner's note and agree with the documented findings and plan of care. Lung sounds are positive for clear breath sounds throughout the lung arias. The findings and the impression was discussed with the patient. I attest to the documentation by the nurse practitioner. Time with Patient: Greater than 30
--- NOTE | 2020-03-07 10:39 | XR ---
EXAMINATION TYPE: XR chest 1V portable DATE OF EXAM: 03/07/2020 COMPARISON: Chest x-ray 03/05/2020 HISTORY: Acute hypoxia, respiratory failure, tracheostomy tube placement TECHNIQUE: Single frontal view of the chest is obtained. FINDINGS: There is been interval removal of endotracheal tube and NG tube, placement of a tracheosto my tube which is overlying appropriate position. There is no evident pneumothorax. Basilar density pe rsists, retrocardiac density also noted, there is obscuration of the left hemidiaphragm. Heart size i s stable. Aorta is dense. Old right-sided rib fractures appear healed. Some improvement in aeration s een at the right lung base. IMPRESSION: Correlate for left lower lobe atelectasis versus pneumonia, associated effusion, follow- up is recommended.
[2020-03-07] MEDS ORDERED: LIDOCAINE 1% INJ 10MG/ML (20 ML MDV) SQ ONE (11:55)
[2020-03-07 12:31] LABS: Glucose,Whole Blood 104 mg/dL (75-99)
[2020-03-07] MEDS: acetaZOLAMIDE 250 MG TAB PO SCH ×2 (12:34→21:32)
[2020-03-07] MEDS: FOLIC ACID 1 MG TAB OG-TUBE SCH (12:35)
--- NOTE | 2020-03-07 12:35 | P.PN ---
Subjective Progress Note Date: 03/07/20 Patient was seen at bedside and he just received a PICC line. And yesterday the patient got a trach. Unable to evaluate the patient because of his condition currently. Objective - Vital Signs Vital signs: Vital Signs Temp 97.4 F L 03/07/20 08:00 Pulse 106 H 03/07/20 11:00 Resp 11 L 03/07/20 11:00 BP 98/66 03/07/20 11:00 Pulse Ox 98 03/07/20 11:00 Intake & Output 03/06/20 03/07/20 03/07/20 18:59 06:59 18:59 Intake Total 809.428 348.633 292.439 Output Total 239 165 140 Balance 570.428 183.633 152.439 Weight 62.9 kg Intake: IV 803 341 272 Piperacillin-Tazobactam 3 100 100 .375 gm In Sodium Chloride 0.9% 100 ml @ 25 mls/hr IVPB Q8HR [facility] Rx# :[id number] Pressure bag 3 21 12 Sodium Chloride 0.9% 1, 300 320 160 000 ml @ 40 mls/hr IV . Q24H [facility] Rx#:[id number] Intake, IV Titration 6.428 7.633 20.439 Amount Norepinephrine 32 mg In 6.428 7.633 20.439 Sodium Chloride 0.9% 218 ml @ 0.05 MCG/KG/MIN 1. 359 mls/hr IV .Q24H [facility]ANA Rx#:[id number] Output: Urine 237 165 140 Estimated Blood Loss 2 Other: Voiding Method Indwelling Catheter Indwelling Catheter Indwelling Catheter ABP, PAP, CO, CI - Last Documented Arterial Blood Pressure 118/63 - Exam GENERAL: The patient is lying and is not in acute distress. Integumentary: Generalized edema. And I felt the patient had extensive edema over the left upper extremity compared to the right upper extremity at. NEUROLOGICAL: Limited because of his condition. Neurological frontal is limited since the patient just got the PICC line. - Labs CBC & Chem 7: 03/07/20 06:05 03/07/20 06:05 Labs: Abnormal Lab Results - Last 24 Hours (Table) 03/06/20 03/06/20 03/06/20 Range/Units 17:51 20:00 20:02 WBC (3.8-10.6) k/uL RBC (4.30-5.90) m/uL Hgb (13.0-17.5) gm/dL Hct (39.0-53.0) % MCV (80.0-100.0) fL RDW (11.5-15.5) % Neutrophils # (1.3-7.7) k/uL Macrocytosis ABG pCO2 (35-45) mmHg ABG O2 Saturation (94-97) % Sodium (137-145) mmol/L Potassium 3.4 L (3.5-5.1) mmol/L Chloride (98-107) mmol/L Glucose (74-99) mg/dL POC Glucose (mg/dL) 117 H 120 H (75-99) mg/dL Calcium (8.4-10.2) mg/dL Alkaline Phosphatase (38-126) U/L Total Protein (6.3-8.2) g/dL Albumin (3.5-5.0) g/dL 03/06/20 03/07/20 03/07/20 Range/Units 23:55 05:00 06:05 WBC 24.0 H (3.8-10.6) k/uL RBC 2.88 L (4.30-5.90) m/uL Hgb 9.8 L (13.0-17.5) gm/dL Hct 31.4 L (39.0-53.0) % MCV 109.2 H (80.0-100.0) fL RDW 16.7 H (11.5-15.5) % Neutrophils # 21.5 H (1.3-7.7) k/uL Macrocytosis Marked A ABG pCO2 31 L (35-45) mmHg ABG O2 Saturation 99.5 H (94-97) % Sodium (137-145) mmol/L Potassium (3.5-5.1) mmol/L Chloride (98-107) mmol/L Glucose (74-99) mg/dL POC Glucose (mg/dL) 119 H (75-99) mg/dL Calcium (8.4-10.2) mg/dL Alkaline Phosphatase (38-126) U/L Total Protein (6.3-8.2) g/dL Albumin (3.5-5.0) g/dL 03/07/20 03/07/20 Range/Units 06:05 06:52 WBC (3.8-10.6) k/uL RBC (4.30-5.90) m/uL Hgb (13.0-17.5) gm/dL Hct (39.0-53.0) % MCV (80.0-100.0) fL RDW (11.5-15.5) % Neutrophils # (1.3-7.7) k/uL Macrocytosis ABG pCO2 (35-45) mmHg ABG O2 Saturation (94-97) % Sodium 146 H (137-145) mmol/L Potassium (3.5-5.1) mmol/L Chloride 123 H (98-107) mmol/L Glucose 116 H (74-99) mg/dL POC Glucose (mg/dL) 116 H (75-99) mg/dL Calcium 8.2 L (8.4-10.2) mg/dL Alkaline Phosphatase 158 H (38-126) U/L Total Protein 4.7 L (6.3-8.2) g/dL Albumin 1.9 L (3.5-5.0) g/dL Assessment and Plan Assessment: * Altered mental status, likely due cardiac arrest on 02/26/2020 as well as probably superimposed toxic metabolic encephalopathy (slight elevation of ammonia) * Patient is not responsive, not following commands and seems to be moving the right upper extremity more than the left upper extremity: One of the diff erential is a stroke from underlying cardiac arrest. Localized to the brain or one of the possibility is a cervical spine. * Cardiac arrest on 02/26/2020 * 2 hypoxic respiratory failure related to septic shock status post trach day 1 * recent history of dark the black stool the possibility of upper GI bleed * History of polysubstance abuse including alcohol, and tobacco. Patient denies marijuana use. * Massive ascites, status post high-volume paracentesis (improvement of abdominal pain s/p paracentesis) last one on 03/05/20 * Diverticulitis status post lower anterior resection, takedown of splenic flexure and partial omentectomy * Leukocytosis is trending down * Hypokalemia * Acute hypoxic respiratory failure related to septic shock with the possibility of abdominal sepsis. * Acute DVT left lower extremity, now on Xarelto. * Folate deficiency Plan: * EEG 02/13/20: Reported as moderate background slowing consistent with encephalopathy, no epileptiform activity seen. * Routine EEG (03/04/20): Abnormal routine EEG. The back was SUGGESTIVE of severe encephalopathy of nonspecific etiology. There are no focal slowing, Lipitor discharges or seizure seen during the study. * CT of the head 03/04/20: Reported as no acute renal hemorrhage or midline shift. There is moderate diffuse cerebral atrophy and the mild to moderate chronic small vessel ischemic changes redemonstrated. No significant interval change from the prior CT. * CT of the head 03/05/20: Reported as cerebral atrophy. No acute intracranial abnormality. No change. * I recommend the patient to get MRI of the brain with and without contrast to rule out a stroke especially since the patient had the cardiac arrest and that he is moving the the right upper extremity more than the left upper extremity----nurse contacted the and was notified he had metal laisha in his right upper arm, therefore unable to perform MRI. * Ordered carotid duplex. * Recommend the patient to be on aspirin or continue or anticoagulation especially with a history of DVT once the anemia is stable. Patient had a recent history of dark the black stool the possibility of upper GI bleed. * Ordered Lipitor 20 mg daily (the reason for low-dose is a he has a history of severe alcohol use). * Ordered lipid panel. * TSH: 3.6 for which within the normal limits. * ammonia level: 43. * AST is 44. ALT: 41. * Vitamin B12 is 708 on 02/12/2020. * Continue folic acid 1 mg daily for folic acid deficiency. * Continue thiamine daily. * PT and OT. * ID following. From the overall patient condition, I feel the patient's Gabby is an poor and he'll be dependent on everything. Plan was discussed with the patient nurse Time with Patient: Less than 30
--- NOTE | 2020-03-07 12:50 | XR ---
EXAMINATION TYPE: XR chest 1V confirm line [facility] DATE OF EXAM: 03/07/2020 COMPARISON: R chest x-ray same dated earlier time HISTORY: Status post PICC line placement TECHNIQUE: Single frontal view of the chest is obtained. FINDINGS: There is been interval placement of a right-sided PICC line, distal tip is overlying super ior vena cava. No significant interval change. IMPRESSION: No evident complication status post right-sided PICC line placement.
--- NOTE | 2020-03-07 13:04 | P.PN ---
Subjective Progress Note Date: 03/07/20 CHIEF COMPLAINT: Diverticulitis HISTORY OF PRESENT ILLNESS: Patient is status post lower anterior resection, takedown of splenic flexure and partial omentectomy on 02/07/2020. The morning of 02/26/20 patient was transferred to the ICU after STEVE KUMAR was called. Patient had become hypothermic and hypotensive. Patient become unresponsive they lost pulse and CPR was initiated. Patient did require to be intubated. Patient remains in the ICU intubated. Patient is status post tracheostomy placement. PEG tube was unable to be placed because EGD had to be terminated because the esophagus could not be intubated due to significant swelling at the hypopharynx. Patient will have to be brought back for PEG tube placement on another day. Patient is currently on a small amount of Levophed. Patient does have some generalized swelling. Nursing staff was unsuccessful in getting NG tube reinserted. Critical care is looking at placing a Dobbhoff tube for tube feedings. Patient did have a large volume paracentesis with 6 L removed. He has fecal management system in place with liquidy stools afebrile. WBC up to 24 hemoglobin 9.8 albumin 1.9 PHYSICAL EXAM: VITAL SIGNS: Reviewed. GENERAL: Well-developed in no acute distress. HEENT: No sclera icterus. Extraocular movements grossly intact. Moist buccal mucosa. Head is atraumatic, normocephalic. Trach site clean dry and intact ABDOMEN: Abdomen is soft and distended. Ascites present. Incision clean dry and intact. NEUROLOGIC: Patient is intubated ASSESSMENT: 1. Cardiopulmonary arrest and acute hypoxic respiratory failure secondary to septic shock. 2. Diverticulitis status post lower anterior resection, takedown of splenic flexure and partial omentectomy on 02/07/2020 3. Patient's abdominal distention likely related to ileus, ascites from his liver cirrhosis and possible hernia. 4. Alcohol abuse with alcohol withdrawal 5. New left leg DVT during this admission 6. Possible ileus 7. Black stools. Resolved. No evidence of upper GI bleed on EGD. EGD was normal 8. Altered mental status likely due to cardiac arrest and superimposed toxic metabolic encephalopathy. Followed by neurology 9. Possible right lower lobe pneumonia 10. Severe protein calorie malnutrition 11. Liver cirrhosis with abdominal ascites status post paracentesis 2 during this admission 12. Hypokalemia improved 13. Patient status post tracheostomy for acute hypoxic respiratory failure PLAN: -Patient scheduled for tracheostomy and PEG tube placement tomorrow with Dr. Lee -Critical care service placing Dobbhoff tube for tube feedings for nutrition support -Continue supportive care Physician Grease Packer note has been reviewed by physician. Signing provider agrees with the documented findings, assessment, and plan of care. Objective - Vital Signs Vital signs: Vital Signs Temp 97.9 F 03/07/20 12:00 Pulse 104 H 03/07/20 12:00 Resp 11 L 03/07/20 12:00 BP 98/66 03/07/20 12:00 Pulse Ox 98 03/07/20 12:00 Intake & Output 03/06/20 03/07/20 03/07/20 18:59 06:59 18:59 Intake Total 809.428 348.633 335.439 Output Total 239 165 390 Balance 570.428 183.633 -54.561 Weight 62.9 kg Intake: IV 803 341 315 Piperacillin-Tazobactam 3 100 100 .375 gm In Sodium Chloride 0.9% 100 ml @ 25 mls/hr IVPB Q8HR [facility] Rx# :[id number] Pressure bag 3 21 15 Sodium Chloride 0.9% 1, 300 320 200 000 ml @ 40 mls/hr IV . Q24H [facility] Rx#:[id number] Intake, IV Titration 6.428 7.633 20.439 Amount Norepinephrine 32 mg In 6.428 7.633 20.439 Sodium Chloride 0.9% 218 ml @ 0.05 MCG/KG/MIN 1. 359 mls/hr IV .Q24H [facility]ANA Rx#:[id number] Output: Urine 237 165 190 Stool 200 Estimated Blood Loss 2 Other: Voiding Method Indwelling Catheter Indwelling Catheter Indwelling Catheter ABP, PAP, CO, CI - Last Documented Arterial Blood Pressure 119/66 - Labs CBC & Chem 7: 03/07/20 06:05 03/07/20 06:05 Labs: Abnormal Lab Results - Last 24 Hours (Table) 03/06/20 03/06/20 03/06/20 Range/Units 17:51 20:00 20:02 WBC (3.8-10.6) k/uL RBC (4.30-5.90) m/uL Hgb (13.0-17.5) gm/dL Hct (39.0-53.0) % MCV (80.0-100.0) fL RDW (11.5-15.5) % Neutrophils # (1.3-7.7) k/uL Macrocytosis ABG pCO2 (35-45) mmHg ABG O2 Saturation (94-97) % Sodium (137-145) mmol/L Potassium 3.4 L (3.5-5.1) mmol/L Chloride (98-107) mmol/L Glucose (74-99) mg/dL POC Glucose (mg/dL) 117 H 120 H (75-99) mg/dL Calcium (8.4-10.2) mg/dL Alkaline Phosphatase (38-126) U/L Total Protein (6.3-8.2) g/dL Albumin (3.5-5.0) g/dL 03/06/20 03/07/20 03/07/20 Range/Units 23:55 05:00 06:05 WBC 24.0 H (3.8-10.6) k/uL RBC 2.88 L (4.30-5.90) m/uL Hgb 9.8 L (13.0-17.5) gm/dL Hct 31.4 L (39.0-53.0) % MCV 109.2 H (80.0-100.0) fL RDW 16.7 H (11.5-15.5) % Neutrophils # 21.5 H (1.3-7.7) k/uL Macrocytosis Marked A ABG pCO2 31 L (35-45) mmHg ABG O2 Saturation 99.5 H (94-97) % Sodium (137-145) mmol/L Potassium (3.5-5.1) mmol/L Chloride (98-107) mmol/L Glucose (74-99) mg/dL POC Glucose (mg/dL) 119 H (75-99) mg/dL Calcium (8.4-10.2) mg/dL Alkaline Phosphatase (38-126) U/L Total Protein (6.3-8.2) g/dL Albumin (3.5-5.0) g/dL 03/07/20 03/07/20 03/07/20 Range/Units 06:05 06:52 12:30 WBC (3.8-10.6) k/uL RBC (4.30-5.90) m/uL Hgb (13.0-17.5) gm/dL Hct (39.0-53.0) % MCV (80.0-100.0) fL RDW (11.5-15.5) % Neutrophils # (1.3-7.7) k/uL Macrocytosis ABG pCO2 (35-45) mmHg ABG O2 Saturation (94-97) % Sodium 146 H (137-145) mmol/L Potassium (3.5-5.1) mmol/L Chloride 123 H (98-107) mmol/L Glucose 116 H (74-99) mg/dL POC Glucose (mg/dL) 116 H 104 H (75-99) mg/dL Calcium 8.2 L (8.4-10.2) mg/dL Alkaline Phosphatase 158 H (38-126) U/L Total Protein 4.7 L (6.3-8.2) g/dL Albumin 1.9 L (3.5-5.0) g/dL
[2020-03-07 13:10] LABS: Cholesterol 169 mg/dL (<200); HDL Cholesterol 38 mg/dL (40-60); LDL Cholesterol,Calculated 105 mg/dL (0-99); Triglycerides 129 mg/dL (<150)
--- NOTE | 2020-03-07 14:28 | IR ---
EXAMINATION TYPE: IR cvc insert >=5 years DATE OF EXAM: 03/07/2020 COMPARISON: NONE HISTORY: needs long-term intravenous access for therapy and antibiotics, infection FINDINGS: Maximal barrier technique was utilized. Hand hygiene obtained with soap and water and alco hol-based hand rub. The skin overlying the right brachial vein was localized with ultrasound and note d to be compressible and patent by ultrasound. An ultrasound image was obtained and submitted on pat ient's chart. Sterile technique utilized with the ultrasound machine. The skin overlying was prepped and draped and Lidocaine used for local anesthesia. A skin inga was made with a scalpel. Access was gained to the vein under direct ultrasound guidance with a 21-gauge needle and a 0.018 inch wire was advanced. Access site was dilated with a peel-away sheath and the catheter tailored to length. Cat heter advanced centrally and a post procedure chest x-ray verified placement with the tip over the linda perior vena cava. Catheter was fixed to the skin and a sterile dressing placed. Hemostasis achieved and the catheter was aspirated and flushed with sterile saline. The patient remained in stable cond ition. IMPRESSION: STATUS POST ULTRASOUND GUIDED PICC LINE PLACEMENT, READY FOR USE. THIS PROCEDURE WAS PER FORMED BY THE UNDERSIGNED.
--- NOTE | 2020-03-07 15:52 | US ---
EXAMINATION TYPE: US carotid duplex BILAT DATE OF EXAM: 03/07/2020 COMPARISON: NONE CLINICAL HISTORY: stroke. stroke exam limitations due to patient on a vent. EXAM MEASUREMENTS: RIGHT: Peak Systolic Velocity (PSV) cm/sec ----- Right CCA: 69.7 ----- Right ICA: 68.2 ----- Right ECA: 95.8 ICA/CCA ratio: 1.0 RIGHT: End Diastole cm/sec ----- Right CCA: 20.2 ----- Right ICA: 21.7 ----- Right ECA: 27.5 LEFT: Peak Systolic Velocity (PSV) cm/sec ----- Left CCA: 117.9 ----- Left ICA: 82.5 ----- Left ECA: 70.7 ICA/CCA ratio: 0.7 LEFT: End Diastole cm/sec ----- Left CCA: 31.3 ----- Left ICA: 21.5 ----- Left ECA: 19.5 VERTEBRALS (direction of flow): Right Vertebral: Antegrade Left Vertebral: Antegrade Rhythm: Normal Grayscale, color Doppler, spectral Doppler imaging performed of the carotid arteries. Waveform analys is does not show significant stenosis of the proximal internal carotid arteries. No significant steno sis seen IMPRESSION: No hemodynamic significant stenosis of the proximal internal carotid arteries by Doppler criteria, an indirect measurement of carotid stenosis Criteria for Assigning % of Stenosis / Diameter reduction (Estimation based on the indirect measurements of the internal carotid artery velocities (ICA PSV). 1. Normal (no stenosis)=ICA PSV < 125 cm/s: ratio < 2.0: ICA EDV<40 cm/s. 2. Less than 50% stenosis=ICA PSV < 125 cm/s: ratio < 2.0: ICA EDV<40 cm/s. 3. 50 to 69% stenosis=ICA PSV of 125 to 230 cm/s: ration 2.0 ? 4.0: ICA EDV 40-100 cm/s. 4. Greater than 70% stenosis to near occlusion= ICA PSV > 230 cm/s: ratio > 4.0: ICA EDV > 100 cm/s. 5. Near occlusion= ICA PSV velocities may be low or undetectable: variable ratio and ICA EDV. 6. Total occlusion=unable to detect flow.
--- NOTE | 2020-03-07 16:37 | XR ---
EXAMINATION TYPE: XR chest 1V portable DATE OF EXAM: 03/07/2020 COMPARISON: 03/07/2020 INDICATION: Dobbhoff feeding tube placement TECHNIQUE: Single frontal view of the chest is obtained. FINDINGS: The heart size is normal. The pulmonary vasculature is normal. There is mild infiltrate at the left base. There is silhouetting the left diaphragm. Endotracheal tube tip is above the eber. PICC line is entering on the right with the tip in superio r vena cava region. Dobbhoff tube has been placed the tip in left upper quadrant of the abdomen. IMPRESSION: 1. Left lower lobe infiltrate, similar to comparison. 2. Lines and catheters discussed above. 3. Dobbhoff tube tip is in the left upper quadrant of the abdomen.
[2020-03-07] MEDS: NOREPINEPHRINE 32 MG in SODIUM CHLORIDE 0.9% 218 ML IV SCH (16:45)
--- NOTE | 2020-03-07 17:38 | ECHOF ---
Referral Reason:limited 2d echo because stroke MEASUREMENTS -------- HEIGHT: 172.7 cm WEIGHT: 62.6 kg BP: 98/66 FINDINGS -------- Sinus rhythm. Resting tachycardia (HR>100bpm). This was a technically adequate study. Limited Study Overall left ventricular systolic function is normal with, an EF between 55 - 60 %. The aortic valve is trileaflet, and appears structurally normal. No aortic stenosis or regurgitation. Mild mitral annular calcification present. Mild mitral regurgitation is present. The tricuspid valve appears structurally normal. The pulmonic valve was not well visualized. There is no pericardial effusion. CONCLUSIONS -------- 1. Overall left ventricular systolic function is normal with, an EF between 55 - 60 %. 2. The aortic valve is trileaflet, and appears structurally normal. No aortic stenosis or regurgitati on. 3. Mild mitral regurgitation is present. 4. There is no pericardial effusion. DIRECTOR FUNDRAISING: Sandy Thomas RDCS
[2020-03-07 17:58] LABS: Glucose,Whole Blood 103 mg/dL (75-99)
[2020-03-07 19:04] LABS: Glucose,Whole Blood 101 mg/dL (75-99)
[2020-03-07] MEDS: ATORVASTATIN 20 MG TAB OG-TUBE SCH (21:31)
[2020-03-07] MEDS: TAMSULOSIN 0.4 MG CAP.ER.24H PO SCH (21:31)
[2020-03-07] MEDS: SODIUM CHLORIDE 0.9% 1,000 ML IV SCH (21:32)
--- NOTE | 2020-03-07 21:54 | P.PN ---
Progress Note - Text Progress Note Date: 03/07/20 - Chief Complaint Abdominal surgery History of presenting complaint: This is a pleasant 64-year-old patient of . Patient been having complication to his diverticulitis. computed tomography scan on January 08. Showed some possible stricture. Hepatic steatosis. February 06- undergone low anterior resection. Epidural for pain control.patient had elevated d-dimer. Pulmonary embolism felt to be unlikely. CT was suboptimal. VQ scan was intermediate probability. Leg DVT treated with IV heparin. Had some dark stools.also patient had had altered mental status. Delta to be encephalopathy.computed tomography scan of the brain was unremarkable. EGD-no evidence of bleeding. Patient more awake after dose of baclofen cutback. changed over to xarelto.x-ray showing ileus. Patient did start having bowel movements. Repeat computed tomography scan of abdomen showed possible enteritis./Colitis.as abdomen appeared distended. Lemus catheter was placed. No urine retention.-patient become hypotensive. Had a brief cardiac and pulmonary arrest Moved to ICU. Had to be intubated. Drips include norepinephrine, vasopressin, propofol. NG tube to suction.also treated for aspiration pneumonia and abdominal wall cellulitis.ascitic fluid that was tapped was unremarkable.4.5 L of acetic fluid removed. On March 06 underwent tracheostomy. Today. ICU-on the ventilator. FiO2 35 and a PEEP of 5. Telemetry-sinus rhythm. 2 feeding was held. This afternoon patient supposed to have a Dobbhoff tube. FMS in place for liquid stools. Faint urine output. Patient off sedation but sleepy lethargic. Edema present.. Review of systems: Patient intubated Active Medications Acetazolamide (Acetazolamide 250 Mg Tab) 250 mg PO BID [facility] Last Admin: 03/07/20 21:32 Dose: 250 mg Documented by: Albuterol/Ipratropium (Ipratropium-Albuterol 3 Ml Neb) 3 ml INHALATION RT-Q4H [facility] Last Admin: 03/07/20 19:21 Dose: 3 ml Documented by: Albuterol/Ipratropium (Ipratropium-Albuterol 3 Ml Neb) 3 ml INHALATION RT-Q2H PRN PRN Reason: Shortness Of Breath Or Wheezing Atorvastatin Calcium (Atorvastatin 20 Mg Tab) 20 mg OG-TUBE HS [facility] Last Admin: 03/07/20 21:31 Dose: 20 mg Documented by: Chlorhexidine Gluconate (Chlorhexidine Gluconate 15 Ml Cup) 15 ml MUCOUS MEM BID [facility] Last Admin: 03/07/20 21:31 Dose: 15 ml Documented by: Enoxaparin Sodium (Enoxaparin 60 Mg/0.6 Ml Syringe) 60 mg SQ BID [facility] Last Admin: 03/07/20 21:31 Dose: 60 mg Documented by: Ferrous Sulfate (Ferrous Sulfate Oral Elixir 300 Mg/5 Ml Cup) 300 mg PO BID- W/MEALS [facility] Last Admin: 03/07/20 17:11 Dose: 300 mg Documented by: Folic Acid (Folic Acid 1 Mg Tab) 1 mg OG-TUBE DAILY [facility] Last Admin: 03/07/20 12:35 Dose: Not Given Documented by: Hydrocortisone Sodium Succinate (Hydrocortisone Succinate 100 Mg/2 Ml Vial) 50 mg IV Q6HR [facility] Last Admin: 03/07/20 18:01 Dose: 50 mg Documented by: Fluconazole/Sodium Chloride (100 mg/ IV Solution) 50 mls @ 50 mls/hr IVPB DAILY [facility] Last Admin: 03/07/20 09:38 Dose: 50 mls/hr Documented by: Norepinephrine Bitartrate 32 (mg/ Sodium Chloride) 250 mls @ 1.359 mls/hr IV .Q24H [facility]; Protocol Last Admin: 03/07/20 16:45 Dose: Not Given Documented by: Sodium Chloride (Saline 0.9%) 1,000 mls @ 40 mls/hr IV .Q24H [facility] Last Admin: 03/07/20 21:32 Dose: 40 mls/hr Documented by: Insulin Aspart (Insulin Aspart (Novolog) 100 Unit/Ml Vial) 0 unit SQ Q6H [facility]; Protocol Last Admin: 03/07/20 17:58 Dose: Not Given Documented by: Metoclopramide HCl (Metoclopramide 5 Mg/Ml 2 Ml Vial) 10 mg IVP Q6HR PRN PRN Reason: Nausea and Vomiting Miscellaneous Information (Magnesium Replacement Protocol 1 Each Misc) 1 each MISCELLANE DAILY PRN; Protocol PRN Reason: Per Protocol Miscellaneous Information (Potassium Replacement Protocol 1 Each Misc) 1 each MISCELLANE DAILY PRN; Protocol PRN Reason: Per Protocol Miscellaneous Information (Potassium Replacement Protocol 1 Each Misc) 1 each MISCELLANE DAILY PRN; Protocol PRN Reason: Per Protocol Miscellaneous Information (Potassium Replacement Protocol 1 Each Misc) 1 each MISCELLANE DAILY PRN; Protocol PRN Reason: Per Protocol Ondansetron HCl (Ondansetron 4 Mg/2 Ml Vial) 4 mg IVP Q8HR PRN PRN Reason: Nausea And Vomiting Pantoprazole Sodium (Pantoprazole 40 Mg/10 Ml Vial) 40 mg IVP BID [facility] Last Admin: 03/07/20 21:33 Dose: 40 mg Documented by: Sodium Chloride (Sodium Chloride 0.9% Flush 10 Ml Syringe) 10 ml IV Q4HR PRN PRN Reason: PICC Line Sodium Chloride (Sodium Chloride 0.9% Flush 10 Ml Syringe) 10 ml IV WEEKLY [facility] Sodium Chloride (Sodium Chloride 0.9% Flush 10 Ml Syringe) 20 ml IV Q4HR PRN PRN Reason: PICC Line Tamsulosin HCl (Tamsulosin 0.4 Mg Cap.Er.24h) 0.4 mg PO HS [facility] Last Admin: 03/07/20 21:31 Dose: 0.4 mg Documented by: Thiamine HCl (Thiamine 100 Mg/Ml 2 Ml Vial) 100 mg IVP DAILY [facility] Last Admin: 03/07/20 09:39 Dose: 100 mg Documented by: Vancomycin HCl (Vancomycin 125 Mg Capsule) 125 mg PO QID [facility] Physical examination: VITAL SIGNS: 98.3, 107, 12, 112/57, 97% on ventilator GENERAL: Laying in bed, intubated. Tracheostomy tube EYES: Pupils equal. Conjunctiva normal. HEENT:, Dry oral cavity NECK: JVD unable to assess; masses not palpable. Tracheostomy tube HEART: First and second heart sounds are normal; some edema LUNGS: Respiratory rate increased; decreased breath sounds. ABDOMEN: Soft, less distended nontender, , area of subcutaneous swelling around the incision site. PSYCH: Lethargic INVESTIGATIONS, reviewed in the clinical context: March 07: White count 24 hemoglobin 9.8 platelets 366 potassium 3.7 creatinine 0.73 White count 16.4 hemoglobin 8.8 platelets 276 potassium 3.5 creatinine 0.71 Previous testing EEG shows evidence of encephalopathy Computed tomography scan of the brain-mild atrophy 2-D echocardiogram-EF 55-60% VQ scan-intermediate probability Chest CTA-suboptimal study. Doppler ultrasound-positive for thrombus within the distal popliteal vein White count 10.2 hemoglobin 14.2 potassium 3.6 B12 some 08 Previously AST 129 ALT 50 Computed tomography scan of the abdomen from January 08-possible colitis, diverticulitis, some esophagitis, hepatic steatosis Abdominal x-ray film personally reviewed by me shows ileus Sputum growing Pita Assessment: -Acute hypoxic respiratory failure, requiring ventilator support-slow to respond -Septic shock -Status post low anterior resection, for diverticulitis complication -Postop ileus- -Chronic nicotine dependence patient cigarette smoker -Clinical emphysema, asymptomatic -Suspect alcoholic hepatitis -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 Repeat paracentesis. 4.5 L. -Mild hyponatremia -Macrocytic anemia. -Acute DVT in the left distal popliteal vein -Acute alcohol withdrawal syndrome with improvement -Right lower lobe pneumonia -Mild protein calorie malnutrition from decreased oral intake -Tracheostomy tube placed on March 06 -Metabolic encephalopathy-no improvement Plan: ICU-continue with IV norepinephrine smaller dose. IV Diflucan. IV Solu-Cortef. We'll check ammonia level in the morning. Prognosis not good. Plan photo Dopf-joshua tube placement this afternoon. Thank you Dr. Lee
[2020-03-07] MEDS: VANCOMYCIN 125 MG CAPSULE PO SCH (22:00)
--- NOTE | 2020-03-07 22:57 | PN ---
PROGRESS NOTE DATE OF SERVICE: 03/07/2020 REASON FOR FOLLOWUP: Aspiration pneumonia and abdominal wound cellulitis. INTERVAL HISTORY: The patient is currently afebrile. The patient is hemodynamically stable, not on any pressor support. FiO2 remains stable. No significant purulent secretion through the ET. He continues to have diarrhea and did have worsening of his white count. PHYSICAL EXAMINATION: Blood pressure 112/58 with a pulse of 112, temperature 98.3. He is 98% on 35% FiO2. General description is a middle-aged male, intubated on the vent. RESPIRATORY SYSTEM: Unlabored breathing with decreased breath sounds at the base. No wheeze. HEART: S1, S2. Regular rate and rhythm. ABDOMEN: Soft. Minimally distended. Abdominal redness has improved. EXTREMITIES: No edema of feet. LAB: Hemoglobin is 9.3, white count 24 with a BUN of 18, creatinine 0.73. DIAGNOSTIC IMPRESSION AND PLAN: Patient with an elevated white count which is likely multifactorial in this patient with significant diarrhea and exposure to antibiotic there is a possibility of C difficile colitis, plus the patient is on hydrocortisone as well which will be contributing to his elevated white count. The patient has received more than 2 weeks of IV Zosyn. That will be discontinued. We will check a stool for C difficile and add vancomycin and monitor his clinical course closely. MMODL / IJN: [id number] /
[2020-03-07 23:57] LABS: Glucose,Whole Blood 114 mg/dL (75-99)
[2020-03-08] MEDS: INSULIN ASPART (NovoLOG) 100 UNIT/ML VIAL SQ SCH ×5 (00:12→23:58)
[2020-03-08] MEDS: HYDROCORTISONE SUCCINATE 100 MG/2 ML VIAL IV SCH ×3 (00:13→20:53)
--- NOTE | 2020-03-08 00:26 | PCN ---
PROCEDURE NOTE PROCEDURE PERFORMED: Insertion of a Dobbhoff tube. OPERATORS: Dr. Pelaez and Dr. Keene and Hardeep Matute. PREOP DIAGNOSIS: Initiation of enteral nutrition. POSTOP DIAGNOSIS: Initiation of enteral nutrition. The patient's procedure was done at the bedside. DESCRIPTION OF PROCEDURE: The patient had a Dobbhoff tube inserted through the left nostril. It passed easily through the nasopharynx into the oropharynx and then into the esophagus. There was good position on chest x-ray. The patient tolerated the procedure well. There was no immediate complication. There was x-ray confirmation. MMODL / IJN: [id number] /
[2020-03-08] MEDS: IPRATROPIUM-ALBUTEROL 3 ML NEB INHALATION SCH ×5 (03:10→19:10)
[2020-03-08 04:08] LABS: Anisocytosis Slight; Basophils % (A) 0 %; Eosinophils % (A) 0 %; HCT 30.3 % (39.0-53.0); HGB 9.3 gm/dL (13.0-17.5); Hypochromasia Marked; Lymphocytes # (A) 0.8 k/uL (1.0-4.8); Lymphocytes % (A) 4 %; MCH 33.7 pg (25.0-35.0); MCHC 30.6 g/dL (31.0-37.0); MCV 110.3 fL (80.0-100.0); Mean Platelet Volume 10.1; Monocytes # (A) 0.7 k/uL (0-1.0); Monocytes % (A) 4 %; Neutrophils # (A) 17.3 k/uL (1.3-7.7); Neutrophils % (A) 91 %; Platelet Count 329 k/uL (150-450); RBC 2.75 m/uL (4.30-5.90); RDW 16.5 % (11.5-15.5); WBC 19.1 k/uL (3.8-10.6)
[2020-03-08 04:16] LABS: Macrocytosis Marked
[2020-03-08 04:19] LABS: ALT 41 U/L (4-49); AST 41 U/L (17-59); African American GFR (CKD) >90 (>60 ml/min/1.73 sqM); Albumin 1.9 g/dL (3.5-5.0); Alkaline Phosphatase 161 U/L (38-126); Anion Gap 1 mmol/L; Blood Urea Nitrogen 19 mg/dL (9-20); Calcium 8.3 mg/dL (8.4-10.2); Carbon Dioxide 21 mmol/L (22-30); Chloride 126 mmol/L (98-107); Glucose 134 mg/dL (74-99); Non-African American GFR(CKD) >90 (>60 ml/min/1.73 sqM); Potassium 3.2 mmol/L (3.5-5.1); Sodium 148 mmol/L (137-145); Total Bilirubin 0.3 mg/dL (0.2-1.3); Total Protein 4.7 g/dL (6.3-8.2)
[2020-03-08 05:16] LABS: ABG Base Excess -2.6 mmol/L; ABG HCO3 21 mmol/L (21-25); ABG Oxygen Saturation 98.6 % (94-97); ABG PCO2 29 mmHg (35-45); ABG PH 7.47 (7.35-7.45); ABG PO2 92 mmHg (83-108); ABG TCO2 22 mmol/L (19-24)
[2020-03-08 05:23] LABS: Allen Test Performed? no
[2020-03-08] MEDS: POTASSIUM BICARBONATE/CIT AC 20 MEQ TABLET.EFF NG-TUBE SCH ×4 (05:28→15:09)
[2020-03-08] MEDS: FERROUS SULFATE ORAL ELIXIR 300 MG/5 ML CUP PO SCH ×2 (06:38→16:49)
[2020-03-08] MEDS: CHLORHEXIDINE GLUCONATE 15 ML CUP MUCOUS MEM SCH ×2 (08:38→20:53)
[2020-03-08] MEDS: PANTOPRAZOLE 40 MG/10 ML VIAL IVP SCH ×2 (08:38→20:53)
[2020-03-08] MEDS: FOLIC ACID 1 MG TAB OG-TUBE SCH (08:38)
[2020-03-08] MEDS: FLUCONAZOLE IN NACL,ISO-OSM 100 MG in SALINE 1 50ML.BAG IVPB SCH (08:39)
[2020-03-08] MEDS: ENOXAPARIN 60 MG/0.6 ML SYRINGE SQ SCH ×2 (08:39→20:53)
[2020-03-08] MEDS: THIAMINE 100 MG/ML 2 ML VIAL IVP SCH (08:39)
[2020-03-08] MEDS: acetaZOLAMIDE 250 MG TAB PO SCH (08:39)
[2020-03-08] MEDS: VANCOMYCIN 125 MG CAPSULE PO SCH ×2 (08:51→09:27)
--- NOTE | 2020-03-08 10:20 | PN ---
PROGRESS NOTE PULMONARY/CRITICAL CARE PROGRESS NOTE: DATE OF SERVICE: 03/08/2020 Critical care time 33 minutes. INTERVAL HISTORY: This is a patient who was admitted back on February 07, 2020. The patient is doing reasonably well. The patient had a Dobbhoff tube placed yesterday. The patient has been on pressure support and CPAP this morning. The patient is on 35%. Blood gases were excellent with a pO2 of 92, pCO2 29 and a pH of 7.47. The patient is getting saline at 40 mL an hour and Vital AF at 31, which is goal. Currently, the patient is doing much better. A PEG tube could not be inserted. A tracheostomy tube was done just a couple days ago. Currently, the patient is stable and I told the nurse to keep the patient on the pressure support/CPAP indefinitely. The tracheostomy tube was done on 03/06/2020. PHYSICAL EXAMINATION: VITAL SIGNS: Current vital signs temperature 97.9, heart rate is 112, respiratory rate is 12, blood pressure 116/62, and saturations are 98%. Appears in no acute distress. HEENT: Examination is grossly unremarkable. NECK: Supple. Full range of motion. No adenopathy. Neck veins are flat. There is a midline tracheostomy tube. CARDIOVASCULAR: Examination reveals regular rhythm and rate. Heart rate about 100. S1, S2 normal. No murmur. LUNGS: Reveal mostly clear breath sounds. A few scattered rhonchi. ABDOMEN: Soft, but mildly distended. EXTREMITIES: Intact. Minimal edema. SKIN: Without rash. NEUROLOGIC: Examination is unchanged. The patient is poorly responsive. LABS: Reviewed. White count 19.1, hemoglobin 9.3, hematocrit 30.3, platelet count 329,000. Blood gases have been noted. Sodium 148, potassium 3.2, chloride 126, CO2 21, anion gap is 1. BUN and creatinine were 19 and 0.72. Albumin 1.9. Microbiology is negative. No chest x-ray today. CURRENT MEDICATIONS: Include Diamox, Lipitor, chlorhexidine, Lovenox, iron sulfate, fluconazole, folic acid, hydrocortisone, insulin, DuoNeb, magnesium replacement, Reglan, Zofran, Protonix, potassium replacement, saline, Flomax, thiamine and oral vancomycin. ASSESSMENT: 1. Acute hypoxemic respiratory failure related to septic shock, with abdominal sepsis, although cultures negative from paracentesis fluid. 2. Status post tracheostomy on March 06, 2020 for chronic respiratory failure and failure to wean from mechanical ventilation. 3. Acute cardiopulmonary arrest on February 25, related to septic shock, brief CPR, and subsequent improvement, although mental status remains poor. 4. Mild fluid overload. 5. Abdominal ascites, status post paracentesis on February 26. 6. Non-anion gap metabolic acidosis, resolved. 7. Volume contraction alkalosis, resolved. 8. Left leg deep venous thrombosis. 9. Diverticulitis status post low anterior resection, takedown of splenic flexure, and partial omentectomy. 10.Alcohol abuse with alcohol withdrawal syndrome. 11.Possible upper GI bleed. 12.Mental status changes with metabolic encephalopathy. 13.History of diverticular disease. 14.History of alcohol abuse. PLAN: Currently, the patient remains on pressure support of 5 and CPAP of 5 and 35%. Blood gases look good. I will run thru the medications and discontinue unnecessary ones. Additional recommendations and suggestions are forthcoming. He is on Vital AF at 31 which is goal. He is getting saline at 40. The patient's fluid will be changed. Additional recommendations and suggestions are forthcoming. Prognosis is poor. The patient should be evaluated for a long-term acute care facility. Dobbhoff tube was placed yesterday. Tube feeds were started. Critical care time 33 minutes. MMODL / IJN: [id number] /
[2020-03-08] MEDS: VANCOMYCIN ORAL SOLUTION 250 MG/5 ML BOTTLE PO SCH ×4 (10:36→20:52)
[2020-03-08] MEDS: DEXTROSE 5% IN WATER 1,000 ML IV SCH (10:42)
--- NOTE | 2020-03-08 11:11 | P.PN ---
Progress Note - Text Progress Note Date: 03/08/20 The patient remains on the ventilator. He is receiving tube feeds via a Dobbhoff catheter. On exam vital signs are stable. Abdomen is soft. Incision is clean dry intact. Status post low anterior resection for diverticulitis, subsequent respiratory failure, cirrhosis with ascites. Patient will continue receive supportive care.
[2020-03-08 12:25] LABS: Glucose,Whole Blood 140 mg/dL (75-99)
[2020-03-08] MEDS ORDERED: HYDROmorphone 1 MG/ML 1 ML SYRINGE IVP PRN (16:53)
--- NOTE | 2020-03-08 17:34 | XR ---
EXAMINATION TYPE: XR abdomen 1V DATE OF EXAM: 03/08/2020 COMPARISON: NONE HISTORY: Abdominal distention TECHNIQUE: 2 views supine FINDINGS: There are some dilated gas-filled loops of small bowel in the mid abdomen. There are skin s taples over the lower abdomen. There is left hip prosthesis. There is no sign of free air. There is n asogastric tube in the stomach. There is relative lack of large bowel gas. IMPRESSION: Dilated gas-filled small bowel suggestive of distal mechanical obstruction. No free air.
[2020-03-08 18:27] LABS: Glucose,Whole Blood 111 mg/dL (75-99)
--- NOTE | 2020-03-08 19:19 | XR ---
EXAMINATION TYPE: XR chest 1V DATE OF EXAM: 03/08/2020 COMPARISON: 03/08/2020 HISTORY: Check tube placement TECHNIQUE: FINDINGS: Portable chest at 6:41 PM shows tracheostomy tube in good position. There is nasogastric tu be looped on itself in the distal esophagus. There is left pleural effusion. There are old right-side d rib fractures. IMPRESSION: NG tube is looped on itself in the distal esophagus. Left pleural effusion unchanged.
--- NOTE | 2020-03-08 19:21 | XR ---
EXAMINATION TYPE: XR chest 1V DATE OF EXAM: 03/08/2020 COMPARISON: NONE HISTORY: Check tube placement TECHNIQUE: FINDINGS: NG tube is folded on itself in the distal esophagus. Left pleural effusion unchanged. IMPRESSION: Persistent malposition of the NG tube in the distal esophagus which is kinked on itself.
--- NOTE | 2020-03-08 19:23 | XR ---
EXAMINATION TYPE: XR chest 1V DATE OF EXAM: 03/08/2020 COMPARISON: Today HISTORY: Tube placement NG tube appears looped on itself in the distal esophagus. The tip of the catheter is in the lower eso phagus. There is right subclavian catheter with tip in the superior vena cava. There is tracheostomy tube. There is left pleural effusion. IMPRESSION: NG tube is looped on itself in the distal esophagus.
--- NOTE | 2020-03-08 20:30 | P.PN ---
Progress Note - Text Progress Note Date: 03/08/20 - Chief Complaint Abdominal surgery History of presenting complaint: This is a pleasant 64-year-old patient of . Patient been having complication to his diverticulitis. computed tomography scan on January 08. Showed some possible stricture. Hepatic steatosis. February 06- undergone low anterior resection. Epidural for pain control.patient had elevated d-dimer. Pulmonary embolism felt to be unlikely. CT was suboptimal. VQ scan was intermediate probability. Leg DVT treated with IV heparin. Had some dark stools.also patient had had altered mental status. [place] to be encephalopathy.computed tomography scan of the brain was unremarkable. EGD-no evidence of bleeding. Patient more awake after dose of baclofen cutback. changed over to xarelto.x-ray showing ileus. Patient did start having bowel movements. Repeat computed tomography scan of abdomen showed possible enteritis./Colitis.as abdomen appeared distended. Lemus catheter was placed. No urine retention.-patient become hypotensive. Had a brief cardiac and pulmonary arrest Moved to ICU. Had to be intubated. Drips include norepinephrine, vasopressin, propofol. NG tube to suction.also treated for aspiration pneumonia and abdominal wall cellulitis.ascitic fluid that was tapped was unremarkable.4.5 L of acetic fluid removed. On March 06 underwent tracheostomy. Today. ICU-on the ventilator. Off levo fed since yesterday. Dophoff placed yesterday. 2 feeding at at goal at 31 mL an hour. Abdomen distended again. Lethargic. FMS in place. Review of systems: Patient intubated Active Medications Albuterol/Ipratropium (Ipratropium-Albuterol 3 Ml Neb) 3 ml INHALATION RT-Q4H [facility] Last Admin: 03/08/20 19:10 Dose: 3 ml Documented by: Albuterol/Ipratropium (Ipratropium-Albuterol 3 Ml Neb) 3 ml INHALATION RT-Q2H PRN PRN Reason: Shortness Of Breath Or Wheezing Atorvastatin Calcium (Atorvastatin 20 Mg Tab) 20 mg OG-TUBE HS [facility] Last Admin: 03/07/20 21:31 Dose: 20 mg Documented by: Chlorhexidine Gluconate (Chlorhexidine Gluconate 15 Ml Cup) 15 ml MUCOUS MEM BID [facility] Last Admin: 03/08/20 08:38 Dose: 15 ml Documented by: Enoxaparin Sodium (Enoxaparin 60 Mg/0.6 Ml Syringe) 60 mg SQ BID [facility] Last Admin: 03/08/20 08:39 Dose: 60 mg Documented by: Ferrous Sulfate (Ferrous Sulfate Oral Elixir 300 Mg/5 Ml Cup) 300 mg PO BID- W/MEALS [facility] Last Admin: 03/08/20 16:49 Dose: Not Given Documented by: Folic Acid (Folic Acid 1 Mg Tab) 1 mg OG-TUBE DAILY [facility] Last Admin: 03/08/20 08:38 Dose: 1 mg Documented by: Hydrocortisone Sodium Succinate (Hydrocortisone Succinate 100 Mg/2 Ml Vial) 50 mg IV Q12HR [facility] Dextrose/Water (Dextrose 5%-Water Iv Soln) 1,000 mls @ 75 mls/hr IV .[id number] [facility] Last Admin: 03/08/20 10:42 Dose: 75 mls/hr Documented by: Insulin Aspart (Insulin Aspart (Novolog) 100 Unit/Ml Vial) 0 unit SQ Q6H [facility]; Protocol Last Admin: 03/08/20 18:26 Dose: Not Given Documented by: Metoclopramide HCl (Metoclopramide 5 Mg/Ml 2 Ml Vial) 10 mg IVP Q6HR PRN PRN Reason: Nausea and Vomiting Miscellaneous Information (Magnesium Replacement Protocol 1 Each Misc) 1 each MISCELLANE DAILY PRN; Protocol PRN Reason: Per Protocol Miscellaneous Information (Potassium Replacement Protocol 1 Each Misc) 1 each M ISCELLANE DAILY PRN; Protocol PRN Reason: Per Protocol Ondansetron HCl (Ondansetron 4 Mg/2 Ml Vial) 4 mg IVP Q8HR PRN PRN Reason: Nausea And Vomiting Pantoprazole Sodium (Pantoprazole 40 Mg/10 Ml Vial) 40 mg IVP BID [facility] Last Admin: 03/08/20 08:38 Dose: 40 mg Documented by: Sodium Chloride (Sodium Chloride 0.9% Flush 10 Ml Syringe) 10 ml IV Q4HR PRN PRN Reason: PICC Line Sodium Chloride (Sodium Chloride 0.9% Flush 10 Ml Syringe) 10 ml IV WEEKLY [facility] Sodium Chloride (Sodium Chloride 0.9% Flush 10 Ml Syringe) 20 ml IV Q4HR PRN PRN Reason: PICC Line Tamsulosin HCl (Tamsulosin 0.4 Mg Cap.Er.24h) 0.4 mg PO HS [facility] Last Admin: 03/07/20 21:31 Dose: 0.4 mg Documented by: Thiamine HCl (Thiamine 100 Mg/Ml 2 Ml Vial) 100 mg IVP DAILY [facility] Last Admin: 03/08/20 08:39 Dose: 100 mg Documented by: Vancomycin HCl (Vancomycin Oral Solution 250 Mg/5 Ml Bottle) 125 mg PO QID [facility] Last Admin: 03/08/20 18:26 Dose: Not Given Documented by: Physical examination: VITAL SIGNS: 97, 114, 12, 121/64, 97% on the ventilator GENERAL: Laying in bed, intubated. Tracheostomy tube EYES: Pupils equal. Conjunctiva normal. HEENT:, Dry oral cavity NECK: JVD unable to assess; masses not palpable. Tracheostomy tube HEART: First and second heart sounds are normal; some edema LUNGS: Respiratory rate increased; decreased breath sounds. ABDOMEN: Soft, distended again, nontender, , area of subcutaneous swelling around the incision site. PSYCH: Unable to assess NEUROLOGICAL: Does respond to pain. No spontaneous eye opening. Pupils equal. INVESTIGATIONS, reviewed in the clinical context: March 08: White count 98.1 hemoglobin 19.3 platelets 329 sodium 148 potassium 3.2 right 126 creatinine 0.7 to albumin 1.9 March 07: White count 24 hemoglobin 9.8 platelets 366 potassium 3.7 creatinine 0.73 White count 16.4 hemoglobin 8.8 platelets 276 potassium 3.5 creatinine 0.71 Previous testing EEG shows evidence of encephalopathy Computed tomography scan of the brain-mild atrophy 2-D echocardiogram-EF 55-60% VQ scan-intermediate probability Chest CTA-suboptimal study. Doppler ultrasound-positive for thrombus within the distal popliteal vein White count 10.2 hemoglobin 14.2 potassium 3.6 B12 some 08 Previously AST 129 ALT 50 Computed tomography scan of the abdomen from January 08-possible colitis, diverticulitis, some esophagitis, hepatic steatosis Abdominal x-ray film personally reviewed by me shows ileus Sputum growing Pita Assessment: -Acute hypoxic respiratory failure, requiring ventilator support-slow to respond -Septic shock-currently off levo fed -Status post low anterior resection, for diverticulitis complication -Postop ileus- -Chronic nicotine dependence patient cigarette smoker -Clinical emphysema, asymptomatic -Suspect alcoholic hepatitis -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 Repeat paracentesis. 4.5 L.-abdomen distended again. -Mild hyponatremia -Hypernatremia -Macrocytic anemia. -Acute DVT in the left distal popliteal vein -Acute alcohol withdrawal syndrome with improvement -Right lower lobe pneumonia -Mild protein calorie malnutrition from decreased oral intake -Tracheostomy tube placed on March 06 -Metabolic encephalopathy-no improvement Plan: ICU-prognosis remains poor. Getting 2 feeding. We'll increase free water through the feeding tube 200 mL every 4 hours. Decrease IV fluids. Thank you Dr. Lee
[2020-03-08] MEDS: ATORVASTATIN 20 MG TAB OG-TUBE SCH (20:52)
[2020-03-08] MEDS: TAMSULOSIN 0.4 MG CAP.ER.24H PO SCH (20:52)
--- NOTE | 2020-03-08 22:02 | PN ---
PROGRESS NOTE DATE OF SERVICE: 03/08/2020 REASON FOR FOLLOWUP: Leukocytosis and diarrhea, . INTERVAL HISTORY: The patient is currently afebrile. The patient is hemodynamically stable, not on pressor support. FiO2 is currently stable. No worsening diarrhea per the nursing staff. Patient still unable to provide any history. PHYSICAL EXAMINATION: Blood pressure 150/66, pulse of 130, temperature 98. He is 97% on 35% FiO2. General description is a middle-aged male, intubated on the vent. Respiratory system: Unlabored breathing with decreased breath sounds in the bases. No wheeze. Heart S1, S2. Regular rate and rhythm. ABDOMEN: Soft, mildly distended. No guarding and no rigidity. Surgery is intact. LABS: Hemoglobin 9.3, white count 19.1, BUN of 19, creatinine 0.72. DIAGNOSTIC IMPRESSION AND PLAN: 1. Patient with a component of aspiration pneumonia, abdominal ulcer that has been adequately treated antibiotic therapy. 2. Patient with significant diarrhea and elevated white count source possible C diff. Stool for C difficile came back negative. The white count did come down to continue current treatment protocol and monitor clinical course closely. MMODL / IJN: [id number] /
[2020-03-08] MEDS: POTASSIUM CHLORIDE 20 MEQ in WATER FOR INJECTION 1 100ML.BAG IVPB SCH (22:09)
[2020-03-08 23:58] LABS: Glucose,Whole Blood 113 mg/dL (75-99)
[2020-03-09] MEDS: POTASSIUM CHLORIDE 20 MEQ in WATER FOR INJECTION 1 100ML.BAG IVPB SCH
[2020-03-09] MEDS: DEXTROSE 5% IN WATER 1,000 ML IV SCH ×2 (00:01→13:49)
[2020-03-09] MEDS: IPRATROPIUM-ALBUTEROL 3 ML NEB INHALATION SCH ×6 (00:56→19:13)
[2020-03-09 04:25] LABS: Anisocytosis Slight; Basophils % (A) 0 %; Eosinophils % (A) 0 %; HCT 32.4 % (39.0-53.0); HGB 9.5 gm/dL (13.0-17.5); Hypochromasia Marked; Lymphocytes # (A) 1.3 k/uL (1.0-4.8); Lymphocytes % (A) 7 %; MCH 32.3 pg (25.0-35.0); MCHC 29.2 g/dL (31.0-37.0); MCV 110.5 fL (80.0-100.0); Mean Platelet Volume 10.1; Monocytes # (A) 0.8 k/uL (0-1.0); Monocytes % (A) 4 %; Neutrophils % (A) 88 %; Platelet Count 369 k/uL (150-450); RBC 2.93 m/uL (4.30-5.90); RDW 16.5 % (11.5-15.5); WBC 18.2 k/uL (3.8-10.6)
[2020-03-09 04:26] LABS: ALT 41 U/L (4-49); AST 37 U/L (17-59); African American GFR (CKD) >90 (>60 ml/min/1.73 sqM); Albumin 1.9 g/dL (3.5-5.0); Alkaline Phosphatase 151 U/L (38-126); Anion Gap 1 mmol/L; Blood Urea Nitrogen 21 mg/dL (9-20); Calcium 8.5 mg/dL (8.4-10.2); Carbon Dioxide 22 mmol/L (22-30); Chloride 124 mmol/L (98-107); Glucose 139 mg/dL (74-99); Macrocytosis Marked; Non-African American GFR(CKD) >90 (>60 ml/min/1.73 sqM); Potassium 4.2 mmol/L (3.5-5.1); Sodium 147 mmol/L (137-145); Total Bilirubin 0.3 mg/dL (0.2-1.3); Total Protein 4.8 g/dL (6.3-8.2)
[2020-03-09 05:01] LABS: ABG Base Excess -2.9 mmol/L; ABG HCO3 22 mmol/L (21-25); ABG Oxygen Saturation 98.7 % (94-97); ABG PCO2 34 mmHg (35-45); ABG PH 7.42 (7.35-7.45); ABG PO2 96 mmHg (83-108); ABG TCO2 23 mmol/L (19-24); Allen Test Performed? Yes
[2020-03-09 05:14] LABS: Glucose,Whole Blood 129 mg/dL (75-99)
[2020-03-09] MEDS: INSULIN ASPART (NovoLOG) 100 UNIT/ML VIAL SQ SCH ×3 (05:37→17:57)
[2020-03-09] MEDS: FERROUS SULFATE ORAL ELIXIR 300 MG/5 ML CUP PO SCH ×2 (07:05→11:44)
[2020-03-09] MEDS: VANCOMYCIN ORAL SOLUTION 250 MG/5 ML BOTTLE PO SCH ×4 (08:03→23:09)
[2020-03-09] MEDS: FOLIC ACID 1 MG TAB OG-TUBE SCH (08:03)
[2020-03-09] MEDS: THIAMINE 100 MG/ML 2 ML VIAL IVP SCH (08:03)
--- NOTE | 2020-03-09 09:14 | XR ---
EXAMINATION TYPE: XR chest 1V DATE OF EXAM: 03/09/2020 COMPARISON: 03/08/2020 HISTORY: 64-year-old male tracheostomy to vent TECHNIQUE: Single frontal view of the chest is obtained. FINDINGS: Tracheostomy cannula is redemonstrated. The tip is 2.3 cm from the eber. Right PICC tip at the mid SVC. Heart normal size. Retrocardiac opacity and hazy lower lung density remains, possible trace effu shayne. Right-sided rib fracture deformities redemonstrated. IMPRESSION: Continued trace left effusion and dense retrocardiac atelectasis and/or consolidation.
[2020-03-09] MEDS: HYDROCORTISONE SUCCINATE 100 MG/2 ML VIAL IV SCH ×2 (10:07→21:59)
[2020-03-09] MEDS: ENOXAPARIN 60 MG/0.6 ML SYRINGE SQ SCH ×2 (10:07→22:01)
[2020-03-09] MEDS: CHLORHEXIDINE GLUCONATE 15 ML CUP MUCOUS MEM SCH ×2 (10:07→21:59)
[2020-03-09] MEDS: PANTOPRAZOLE 40 MG/10 ML VIAL IVP SCH ×2 (10:08→21:59)
--- NOTE | 2020-03-09 10:57 | OP ---
OPERATIVE REPORT PROCEDURE: Paracentesis abdominis. OPERATORS: Dr. Pelaez and Dr. Keene. PREOP DIAGNOSIS: Large amount of ascites. POSTOP DIAGNOSIS: Large amount of ascites. DESCRIPTION: 4.4 L of ascitic fluid was removed from the abdominal cavity. The fluid was yellow in color. The patient tolerated the procedure well. There was no immediate complication. The fluid will not be sent for analysis as it had been analyzed in the past. A bandage was then placed over the paracentesis site. There was no complication. MMODL / IJN: [id number] /
--- NOTE | 2020-03-09 11:12 | P.PN ---
Progress Note - Text Progress Note Date: 03/09/20 The patient is more awake today. His abdomen does feel more distended. On exam vital signs are stable. Abdomen is distended and firm. Ascites. Patient should have a paracentesis performed today.
[2020-03-09] MEDS ORDERED: MVI, ADULT NO.4 WITH VIT K 10 ML, TRACE (CONC-1ML/DOSE) 1 ML in AMINO ACID 5%-D15W+LYTE... IV SCH ×3 (12:00)
[2020-03-09 12:18] LABS: Glucose,Whole Blood 122 mg/dL (75-99)
[2020-03-09 12:42] LABS: Magnesium 1.9 mg/dL (1.6-2.3); Phosphorus 3.4 mg/dL (2.5-4.5)
[2020-03-09] MEDS: FAT EMULSION 20% 250 ML in EMPTY BAG 1 BAG IV SCH (13:49)
--- NOTE | 2020-03-09 15:03 | PN ---
PROGRESS NOTE PULMONARY/CRITICAL CARE PROGRESS NOTE: DATE OF SERVICE: 03/09/2020 This of the critical care time is 32 minutes. This is a 64-year-old male who was admitted back on February 07, 2020. The patient is doing reasonably well. Apparently, the patient developed some abdominal distention yesterday. Tube feeds were placed on hold. A belly film was done. The results are in the chart. Apparently Dr. Lee ordered a Dobbhoff feeding tube to be removed and an NG tube be placed. The NG tube could not be placed by the nurse. The patient was on pressure support of 5 and CPAP of 5. I ordered the patient to go back on the assist- control mode. This morning, the patient is doing a bit better. He remains on the ventilator. He is on the volume assist-control mode rate of 10, tidal volume 500, FiO2 of 35%, PEEP of 5. Blood gases were excellent with a pO2 of 96, pCO2 of 34, and pH 7.42. This is consistent with normoxemia and a mixed acid-base disturbance including a combined respiratory alkalosis/mild metabolic acidosis. The patient is getting D5W at 75 mL an hour. Tube feeds are on hold because of the abdominal distention. Again, the Dobbhoff tube was removed yesterday. NG tube was not insertable. I did ask the dietitian to come up with a TPN order for this patient. In addition, Dr. Keene and myself did a paracentesis on this patient and 4.4 L of fluid was removed from the abdomen. PHYSICAL EXAMINATION: VITAL SIGNS: Current vital signs include temperature 97, heart rate 100, respiratory rate 10 to 12 breaths per minute, blood pressure 111/57, saturations on pressure support of 5, CPAP of 5, 97%. Appears in no acute distress. HEENT: Examination is grossly unremarkable. NECK: Supple, full range of motion. No adenopathy. Neck veins are flat. CARDIOVASCULAR: Examination reveals a regular rhythm and rate. S1, S2 normal. No S3, S4, or murmur. LUNGS: Reveal diminished breath sounds. A few scattered rhonchi. ABDOMEN: Distended. Bowel sounds are not noted. EXTREMITIES are intact. No significant edema. SKIN: Without rash. NEUROLOGIC: Examination is only minimally improved. The patient is quite lethargic and somnolent as he has been. Current labs are reviewed. White count 18.2, hemoglobin 9.5, hematocrit 32.4, platelet count 369,000. Blood gases have been noted. Sodium 147, potassium 4.2, chloride 124, CO2 is 22, anion gap 1. BUN and creatinine were 21 and 0.77. Alkaline phosphatase 151, total protein 4.8, albumin 1.9. Microbiology is essentially negative. A chest x-ray today shows a small left pleural effusion. There is some retrocardiac atelectasis or infiltrate. CURRENT MEDICATIONS: Reviewed. The patient is on TPN now, Lipitor, Peridex, D5W at 75 mL an hour, Lovenox, lipids, iron, folic acid, Solu-Cortef, insulin, DuoNeb, magnesium replacement, Reglan, Zofran, Protonix, potassium replacement, Flomax, thiamine and oral vancomycin. ASSESSMENT: 1. Acute hypoxemic respiratory failure, related to septic shock with abdominal sepsis, and negative cultures. 2. Status post tracheostomy on March 06, 2020 for chronic respiratory failure and failure to wean from mechanical ventilation. 3. Acute cardiopulmonary arrest on February 25, related to septic shock, brief CPR, and subsequent slow improvement, although mental status remains poor. 4. Massive ascites, status post paracentesis abdominis, March 09, 2020 with 4.4 L removed. 5. Fluid overload, improved. 6. Non-anion gap metabolic acidosis, resolved. 7. Volume contraction alkalosis, resolved. 8. Left leg deep vein thrombosis. 9. Diverticulitis, status post low anterior resection, takedown of splenic flexure, and partial omentectomy on February 07, 2020. 10.Alcohol abuse with alcohol withdrawal syndrome. 11.Possible upper gastrointestinal bleed. 12.Mental status changes with metabolic encephalopathy. 13.History of diverticular disease. 14.History of alcohol abuse. 15.Severe abdominal distention, March 08, 2020. PLAN: When I was called with the abdominal distention yesterday, we stopped the tube feeds. We placed the patient back on the volume assist-control mode, we ordered a flat plate of the abdomen. Dr. Lee ordered the Dobbhoff tube removed and an NG tube inserted. Unfortunately, the nurses could not insert the NG tube. The Dobbhoff tube was inserted by our team late last week. The patient will be started on TPN. In addition, Dr. Keene and myself did a high volume paracentesis abdominis today. 4.4 L was removed. The patient will be placed back on PSV and CPAP. Overall prognosis remains guarded. We will continue to follow. Critical care time greater than 30 minutes. QUIANA / BANDARN: [id number] /
[2020-03-09 17:48] LABS: Glucose,Whole Blood 126 mg/dL (75-99)
--- NOTE | 2020-03-09 20:39 | PN ---
PROGRESS NOTE DATE OF SERVICE: 03/09/2020 REASON FOR FOLLOWUP: Leukocytosis and diarrhea. INTERVAL HISTORY: The patient is currently afebrile. The patient is hemodynamically stable. He responded to his name but was unable to communicate. Tolerating his tube feed. No worsening diarrhea reported by nursing staff. PHYSICAL EXAMINATION: Blood pressure 124/64 with a pulse of 107, temperature is 96.9. He is 97% on 35% FiO2. General description is a middle-aged male, intubated on the vent. Respiratory system: Unlabored breathing, decreased breath sounds in the base, with no wheeze. Heart S1, S2. Regular rate and rhythm. Abdomen soft, no tenderness. LABS: Hemoglobin is 9.5, white count ( ), BUN of 21, creatinine 0.77. DIAGNOSTIC IMPRESSION AND PLAN: 1. Patient with cardiac arrest, component of aspiration and abdominal cellulitis adequately treated on antibiotic. 2. Patient has significant diarrhea and elevated white count, possible C difficile colitis which came back negative. On empiric Vancomycin, to continue. ( ) through the Dobbhoff and monitor clinical course closely. MMODL / IJN: [id number] /
[2020-03-09] MEDS: TAMSULOSIN 0.4 MG CAP.ER.24H PO SCH (21:57)
[2020-03-09] MEDS: ATORVASTATIN 20 MG TAB OG-TUBE SCH (21:57)
--- NOTE | 2020-03-09 22:22 | P.PN ---
Progress Note - Text Progress Note Date: 03/09/20 - Chief Complaint Abdominal surgery History of presenting complaint: This is a pleasant 64-year-old patient of . Patient been having complication to his diverticulitis. computed tomography scan on January 08. Showed some possible stricture. Hepatic steatosis. February 06- undergone low anterior resection. Epidural for pain control.patient had elevated d-dimer. Pulmonary embolism felt to be unlikely. CT was suboptimal. VQ scan was intermediate probability. Leg DVT treated with IV heparin. Had some dark stools.also patient had had altered mental status. [place] to be encephalopathy.computed tomography scan of the brain was unremarkable. EGD-no evidence of bleeding. Patient more awake after dose of baclofen cutback. changed over to xarelto.x-ray showing ileus. Patient did start having bowel movements. Repeat computed tomography scan of abdomen showed possible enteritis./Colitis.as abdomen appeared distended. Lemus catheter was placed. No urine retention.-patient become hypotensive. Had a brief cardiac and pulmonary arrest Moved to ICU. Had to be intubated. Drips include norepinephrine, vasopressin, propofol. NG tube to suction.also treated for aspiration pneumonia and abdominal wall cellulitis.ascitic fluid that was tapped was unremarkable.4.5 L of acetic fluid removed. On March 06 underwent tracheostomy.Dophoff tube was placed and then had to be removed because of abdominal distention. Today. ICU-on the ventilator. Telemetry shows sinus rhythm. Another 4.4 L of acetic fluid was tapped today. Put on D5W 75 mL an hour. Started on TPN at 30 mL an hour. Edema present. FMS in place. Urine output continues to be low at 10-20 mL an hour.Dophoff tube was discontinued. NG tube was attempted unsuccessfully. Review of systems: Patient intubated Active Medications Albuterol/Ipratropium (Ipratropium-Albuterol 3 Ml Neb) 3 ml INHALATION RT-Q4H [facility] Last Admin: 03/09/20 19:13 Dose: 3 ml Documented by: Albuterol/Ipratropium (Ipratropium-Albuterol 3 Ml Neb) 3 ml INHALATION RT-Q2H PRN PRN Reason: Shortness Of Breath Or Wheezing Atorvastatin Calcium (Atorvastatin 20 Mg Tab) 20 mg OG-TUBE HS [facility] Last Admin: 03/09/20 21:57 Dose: Not Given Documented by: Chlorhexidine Gluconate (Chlorhexidine Gluconate 15 Ml Cup) 15 ml MUCOUS MEM BID [facility] Last Admin: 03/09/20 21:59 Dose: 15 ml Documented by: Enoxaparin Sodium (Enoxaparin 60 Mg/0.6 Ml Syringe) 60 mg SQ BID [facility] Last Admin: 03/09/20 22:01 Dose: 60 mg Documented by: Ferrous Sulfate (Ferrous Sulfate Oral Elixir 300 Mg/5 Ml Cup) 300 mg PO BID- W/MEALS [facility] Last Admin: 03/09/20 11:44 Dose: Not Given Documented by: Folic Acid (Folic Acid 1 Mg Tab) 1 mg OG-TUBE DAILY [facility] Last Admin: 03/09/20 08:03 Dose: Not Given Documented by: Hydrocortisone Sodium Succinate (Hydrocortisone Succinate 100 Mg/2 Ml Vial) 50 mg IV Q12HR [facility] Last Admin: 03/09/20 21:59 Dose: 50 mg Documented by: Dextrose/Water (Dextrose 5%-Water Iv Soln) 1,000 mls @ 75 mls/hr IV .[id number] [facility] Last Admin: 03/09/20 13:49 Dose: 75 mls/hr Documented by: Parenteral Vitamin Supplement 10 ml/ Chromium/Copper/Manganese/Seleni/Zn 1 ml/Amino Ac/Electrol/Dextrose/Calcium 1,011 mls @ 30 mls/hr IV .Q24H [facility] Stop: 03/10/20 07:00 Last Admin: 03/09/20 13:48 Dose: 30 mls/hr Documented by: Parenteral Vitamin Supplement 10 ml/ Chromium/Copper/Manganese/Seleni/Zn 1 ml/Amino Ac/Electrol/Dextrose/Calcium 1,011 mls @ 40 mls/hr IV .Q24H [facility] Fat Emulsion Intravenous 250 (ml/ IV Solution) 250 mls @ 21 mls/hr IV DAILY [facility] Last Admin: 03/09/20 13:49 Dose: 21 mls/hr Documented by: Insulin Aspart (Insulin Aspart (Novolog) 100 Unit/Ml Vial) 0 unit SQ Q6H [facility]; Protocol Last Admin: 03/09/20 17:57 Dose: Not Given Documented by: Metoclopramide HCl (Metoclopramide 5 Mg/Ml 2 Ml Vial) 10 mg IVP Q6HR PRN PRN Reason: Nausea and Vomiting Miscellaneous Information (Magnesium Replacement Protocol 1 Each Misc) 1 each MISCELLANE DAILY PRN; Protocol PRN Reason: Per Protocol Miscellaneous Information (Potassium Replacement Protocol 1 Each Misc) 1 each MISCELLANE DAILY PRN; Protocol PRN Reason: Per Protocol Ondansetron HCl (Ondansetron 4 Mg/2 Ml Vial) 4 mg IVP Q8HR PRN PRN Reason: Nausea And Vomiting Pantoprazole Sodium (Pantoprazole 40 Mg/10 Ml Vial) 40 mg IVP BID [facility] Last Admin: 03/09/20 21:59 Dose: 40 mg Documented by: Sodium Chloride (Sodium Chloride 0.9% Flush 10 Ml Syringe) 10 ml IV Q4HR PRN PRN Reason: PICC Line Sodium Chloride (Sodium Chloride 0.9% Flush 10 Ml Syringe) 10 ml IV WEEKLY [facility] Sodium Chloride (Sodium Chloride 0.9% Flush 10 Ml Syringe) 20 ml IV Q4HR PRN PRN Reason: PICC Line Tamsulosin HCl (Tamsulosin 0.4 Mg Cap.Er.24h) 0.4 mg PO HS [facility] Last Admin: 03/09/20 21:57 Dose: Not Given Documented by: Thiamine HCl (Thiamine 100 Mg/Ml 2 Ml Vial) 100 mg IVP DAILY [facility] Last Admin: 03/09/20 08:03 Dose: Not Given Documented by: Vancomycin HCl (Vancomycin Oral Solution 250 Mg/5 Ml Bottle) 125 mg PO QID [facility] Last Admin: 03/09/20 11:44 Dose: Not Given Documented by: Physical examination: VITAL SIGNS: 97, 101, 10, 111/57, 97% on ventilator GENERAL: Laying in bed, intubated. Tracheostomy tube, edema EYES: Pupils equal. Conjunctiva normal. HEENT:, Dry oral cavity NECK: JVD unable to assess; masses not palpable. Tracheostomy tube HEART: First and second heart sounds are normal; some edema LUNGS: Respiratory rate increased; decreased breath sounds. ABDOMEN: Soft, distended again, nontender, , area of subcutaneous swelling around the incision site. PSYCH: Unable to assess NEUROLOGICAL: Does respond to pain. Occasional spontaneous eye opening. Pupils equal. INVESTIGATIONS, reviewed in the clinical context: March 09: White count 18.2, hemoglobin 9.5, platelets 369 sodium 147 potassium 4.2 creatinine 0.77 March 08: White count 98.1 hemoglobin 19.3 platelets 329 sodium 148 potassium 3.2 right 126 creatinine 0.7 to albumin 1.9 March 07: White count 24 hemoglobin 9.8 platelets 366 potassium 3.7 creatinine 0.73 White count 16.4 hemoglobin 8.8 platelets 276 potassium 3.5 creatinine 0.71 Previous testing EEG shows evidence of encephalopathy Computed tomography scan of the brain-mild atrophy 2-D echocardiogram-EF 55-60% VQ scan-intermediate probability Chest CTA-suboptimal study. Doppler ultrasound-positive for thrombus within the distal popliteal vein White count 10.2 hemoglobin 14.2 potassium 3.6 B12 some 08 Previously AST 129 ALT 50 Computed tomography scan of the abdomen from January 08-possible colitis, diverticulitis, some esophagitis, hepatic steatosis Abdominal x-ray film personally reviewed by me shows ileus Sputum growing [place] Assessment: -Acute hypoxic respiratory failure, requiring ventilator support-slow to respond -Septic shock-currently off levo fed -Status post low anterior resection, for diverticulitis complication -Postop ileus- -Chronic nicotine dependence patient cigarette smoker -Clinical emphysema, asymptomatic -Suspect alcoholic hepatitis -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 Repeat paracentesis. 4.5 L.-repeat paracentesis is 4.4 L.. -Mild hyponatremia -Hypernatremia -Macrocytic anemia. -Acute DVT in the left distal popliteal vein -Acute alcohol withdrawal syndrome with improvement -Right lower lobe pneumonia -Mild protein calorie malnutrition from decreased oral intake -Tracheostomy tube placed on March 06 -Metabolic encephalopathy-no improvement -Dobbhoff tube placed and removed Plan: ICU-prognosis remains poor. Dobbhoff tube discontinued. NG tube could not be placed. Prognosis guarded. IV fluids resume. Thank you Dr. Lee
--- NOTE | 2020-03-09 22:30 | XR ---
EXAMINATION TYPE: XR chest 1V portable DATE OF EXAM: 03/09/2020 COMPARISON: 03/09/2020 HISTORY: Tube placement TECHNIQUE: FINDINGS: There is nasogastric tube with the tip below the diaphragm in the stomach. There is tracheo stomy tube. There is left pleural effusion. There is no gross heart failure. There are old multiple r ight-sided rib fractures. There are chest leads. There is right subclavian catheter with tip in the s uperior vena cava. IMPRESSION: NG tube is in the stomach. Left lower lobe infiltrate and left pleural effusion unchanged .
[2020-03-10] MEDS: IPRATROPIUM-ALBUTEROL 3 ML NEB INHALATION SCH ×7 (00:12→23:27)
[2020-03-10 00:36] LABS: Glucose,Whole Blood 144 mg/dL (75-99)
[2020-03-10] MEDS: INSULIN ASPART (NovoLOG) 100 UNIT/ML VIAL SQ SCH ×4 (00:38→21:38)
[2020-03-10] MEDS: DEXTROSE 5% IN WATER 1,000 ML IV SCH (04:36)
[2020-03-10 04:58] LABS: Anisocytosis Slight; Basophils % (A) 0 %; Eosinophils % (A) 0 %; HCT 31.1 % (39.0-53.0); HGB 9.7 gm/dL (13.0-17.5); Hypochromasia Marked; Lymphocytes # (A) 0.6 k/uL (1.0-4.8); Lymphocytes % (A) 3 %; MCH 33.3 pg (25.0-35.0); MCV 107.3 fL (80.0-100.0); Monocytes # (A) 0.7 k/uL (0-1.0); Monocytes % (A) 3 %; Neutrophils % (A) 93 %; Platelet Count 366 k/uL (150-450); WBC 22.6 k/uL (3.8-10.6)
[2020-03-10 05:16] LABS: ALT 37 U/L (4-49); AST 36 U/L (17-59); African American GFR (CKD) >90 (>60 ml/min/1.73 sqM); Albumin 1.8 g/dL (3.5-5.0); Alkaline Phosphatase 141 U/L (38-126); Anion Gap 2 mmol/L; Blood Urea Nitrogen 19 mg/dL (9-20); Calcium 8.5 mg/dL (8.4-10.2); Carbon Dioxide 21 mmol/L (22-30); Chloride 118 mmol/L (98-107); Glucose 143 mg/dL (74-99); Magnesium 1.8 mg/dL (1.6-2.3); Non-African American GFR(CKD) >90 (>60 ml/min/1.73 sqM); Phosphorus 3.4 mg/dL (2.5-4.5); Potassium 4.1 mmol/L (3.5-5.1); Sodium 141 mmol/L (137-145); Total Bilirubin 0.3 mg/dL (0.2-1.3); Total Protein 4.7 g/dL (6.3-8.2)
[2020-03-10 05:17] LABS: ABG Base Excess -3.3 mmol/L; ABG HCO3 21 mmol/L (21-25); ABG Oxygen Saturation 97.9 % (94-97); ABG PCO2 29 mmHg (35-45); ABG PH 7.46 (7.35-7.45); ABG PO2 85 mmHg (83-108); ABG TCO2 21 mmol/L (19-24)
[2020-03-10 05:18] LABS: Allen Test Performed? no
[2020-03-10 05:31] LABS: Macrocytosis Marked
--- NOTE | 2020-03-10 07:13 | P.PN ---
Subjective Progress Note Date: 03/10/20 On 03/10/2020 and seeing this patient for a follow-up in the intensive care unit. The patient was admitted on 02/07/2020. The patient is postop AP resection for strictures of diverticular disease. The patient developed clinical deterioration with abdominal sepsis. The patient also had a cardiac pulmonary arrest that was brief and the patient was intubated and placed on a mechanical ventilator and the patient was transferred to the intensive care unit. The acute cardiopulmonary arrest that occurred on 02/26/2020 related to septic shock and the patient required a brief CPR and the patient required intubation and fluid resuscitation and pressors. The patient also developed ascites. Due to his prolonged mechanical ventilation, the patient ultimately had a tracheostomy tube insertion on 03/06/2020. He underwent paracentesis with removal of 8 L of abdominal fluid from the peritoneal cavity on 02/27/2020. And following that a repeat paracentesis was done on 03/05/2026 liters of fluid. Th e patient currently is on a mechanical ventilator and the patient is being ventilated through his tracheostomy tube. The patient is an assist-control mode of ventilation at the rate of 10 with tidal volume of 100 and FiO2 of 35% with a PEEP of 5. The patient is receiving IV fluids to D5 water at the rate of 75 mL an hour. The Dobbhoff catheter was removed and the patient was given an NG was attempted and was not insertable. As such, TPN was recommended. The patient had developed some abdominal distention earlier. Last paracentesis was done yesterday and a total of 4.4 L of ascitic fluid was removed from the abdomen. The patient otherwise doing reasonably well. The patient had also diagnosed having a left lower extremity DVT treated with SC Lovenox. The patient also is currently on TPN. The patient is on stress dose hydrocortisone 50 mg IV every 12 hours, Lovenox 60 mg subcu twice a day and oral vancomycin 125 mg by mouth 4 times a day for some component of enteritis. During the course of the treatment the patient was treated for aspiration pneumonia and abdominal wall cellulitis. The patient had developed diarrhea due to antibiotic exposure and the patient completed the 2 week course of Zosyn and the patient is currently on oral vancomycin. Stool for C. diff has been negative. ID is on the case. on today's evaluation of 03/10/2020, the patient was switched a CPAP at a pressure of 5 pressure support and a PEEP of 5 with an FiO2 of 30%. He is able to generate tidal volumes of about 700. the chest x-ray showing a small left- sided pleural effusion. NG tube is in a good location. The patient has a PICC line right upper extremity. There is a small left-sided pleural effusion for now. The patient has a Bivona tracheostomy tube #8. He is calm and comfortable. No significant orotracheal secretions. Lemus catheter in place. The patient has a PICC line in the right upper extremity and currently is receiving TPN for nutritional support. He also has an NG tube in place. He is not receiving any enteral feeding at this point in time. He does have diffuse anasarca. Abdominal wound is dry clean and intact. Yvonne are still in place. No active drainage. He does have a fecal management system in place and output is in order of minimal probably a few cc on an hourly basis. Objective - Vital Signs Vital signs: Vital Signs Temp 97.3 F L 03/10/20 04:00 Pulse 104 H 03/10/20 05:00 Resp 12 03/10/20 05:00 BP 98/66 03/09/20 23:00 Pulse Ox 98 03/10/20 05:00 Intake & Output 03/09/20 03/10/20 03/10/20 18:59 06:59 18:59 Intake Total 1191 1206 Output Total 4645 181 Balance -3454 1025 Weight 65.1 kg Intake: IV 1191 1206 Dextrose 5% in Water 1, 900 750 000 ml @ 75 mls/hr IV . [id number] JOANA Rx#:[id number] Fat Emulsion 20% 250 ml 105 126 In Empty Bag 1 bag @ 21 mls/hr IV DAILY JOANA Rx#: [id number] Mvi, Adult No.4 with Vit 150 300 K 10 ml Trace (Conc-1Ml/ Dose) 1 ml In Amino Acid 5%-D15w+Lytes*E* 1,000 ml @ 30 mls/hr IV .Q24H JOANA Rx#:[id number] Pressure bag 36 30 Output: Drainage 4400 Right Lower Lateral 4400 Abdomen Paracentesis site Urine 245 181 Other: Voiding Method Indwelling Catheter Indwelling Catheter ABP, PAP, CO, CI - Last Documented Arterial Blood Pressure 121/65 - Exam GENERAL EXAM: Intubated sedated 64-year-old white male, trached to the mechanical ventilator on assist-control mode of ventilation, in no acute distress, currently on a pressure support of 5 and a PEEP of 5 with an FiO2 of 35%. HEAD: Normocephalic/atraumatic. EYES: Normal reaction of pupils, equal size. Conjunctiva pink, sclera white. NOSE: Clear with pink turbinates. THROAT: No erythema or exudates. NECK: No masses, no JVD, no thyroid enlargement, no adenopathy. Midline tracheostomy in place, patient connected to the ventilator with assist control mode of ventilation CHEST: No chest wall deformity. Symmetrical expansion. LUNGS: Equal air entry with no crackles, wheeze, rhonchi or dullness. CVS: Regular rate and rhythm, normal S1 and S2, no gallops, no murmurs, no rubs ABDOMEN: Less distended and firm on today's exam compared to last week, mild tenderness to palpation, rigidity, and abdominal incision is clean dry and intact, well approximated and healed, yvonne are in place, intact EXTREMITIES: No clubbing, 2+ upper and lower extremity edema, patient has a weeping edema with the drainage from the catheter insertion sites no cyanosis, 2+ pulses and upper and lower extremities. Picc line is in the RUE, diffuse anasarca in all 4 extremities mainly the lower extremities and in the thighs MUSCULOSKELETAL: Muscle strength and tone normal. SPINE: No scoliosis or deformity SKIN: No rashes CENTRAL NERVOUS SYSTEM: awake and the patient has a tone is normal in all 4 extremities. - Labs CBC & Chem 7: 03/10/20 04:25 03/10/20 04:25 Labs: Abnormal Lab Results - Last 24 Hours (Table) 03/09/20 03/09/20 03/10/20 Range/Units 12:16 17:47 00:34 WBC (3.8-10.6) k/uL RBC (4.30-5.90) m/uL Hgb (13.0-17.5) gm/dL Hct (39.0-53.0) % MCV (80.0-100.0) fL RDW (11.5-15.5) % Neutrophils # (1.3-7.7) k/uL Lymphocytes # (1.0-4.8) k/uL Macrocytosis ABG pH (7.35-7.45) ABG pCO2 (35-45) mmHg ABG O2 Saturation (94-97) % Chloride (98-107) mmol/L Carbon Dioxide (22-30) mmol/L Glucose (74-99) mg/dL POC Glucose (mg/dL) 122 H 126 H 144 H (75-99) mg/dL Alkaline Phosphatase (38-126) U/L Total Protein (6.3-8.2) g/dL Albumin (3.5-5.0) g/dL 03/10/20 03/10/20 03/10/20 Range/Units 04:25 04:25 05:12 WBC 22.6 H (3.8-10.6) k/uL RBC 2.90 L (4.30-5.90) m/uL Hgb 9.7 L (13.0-17.5) gm/dL Hct 31.1 L (39.0-53.0) % MCV 107.3 H (80.0-100.0) fL RDW 16.0 H (11.5-15.5) % Neutrophils # 21.0 H (1.3-7.7) k/uL Lymphocytes # 0.6 L (1.0-4.8) k/uL Macrocytosis Marked A ABG pH 7.46 H (7.35-7.45) ABG pCO2 29 L (35-45) mmHg ABG O2 Saturation 97.9 H (94-97) % Chloride 118 H (98-107) mmol/L Carbon Dioxide 21 L (22-30) mmol/L Glucose 143 H (74-99) mg/dL POC Glucose (mg/dL) (75-99) mg/dL Alkaline Phosphatase 141 H (38-126) U/L Total Protein 4.7 L (6.3-8.2) g/dL Albumin 1.8 L (3.5-5.0) g/dL Microbiology - Last 24 Hours (Table) 03/07/20 15:35 Catheter Tip Culture - Final Catheter Tip Assessment and Plan Plan: #1. Acute hypoxic respiratory failure related to septic shock, with a possibility of abdominal sepsis, although cultures from the paracentesis fluid have been negative. On 03/07/2020 patient remains trached to the mechanical ventilator on assist control mode of ventilation. Patient had a tracheostomy on 03/06/2020. The patient's most recent chest x-ray shows a small left-sided pleural effusion. Tracheostomy tube in place and the patient is currently on a pressure support of 5 and a PEEP of 5 with spontaneous breathing mode and is able to generate adequate tidal volumes. #2. Acute cardiac pulmonary arrest on 02/26/2020 related to septic shock, patient required a brief CPR, was intubated and fluid resuscitated, and she is currently off pressors and he is hemodynamicaly stable #3. Increased bibasilar opacities and a chest x-ray shows a small left-sided pleural effusion #4. Abdominal pain and distention, improved post-paracentesis #5. Massive ascites, status post high-volume paracentesis, on 02/27/2020 with r emoval of 8 L of ascitic fluid, and repeat paracentesis on 2019 would removal of 6 L of fluid and then 4.5 liters on 03/09/2020, slight abdominal distention today's evaluation #6. Non-anion gap metabolic acidosis related to septic shock, and has received IV fluids and bicarbonate infusion, resolved #7. Volume contraction alkalosis, secondary to paracentesis and diuretic therapy #8. Elevated d-dimer, nonspecific, doubt possibility of pulmonary embolism. CTA chest was suboptimal but did not reveal any evidence of central pulmonary embolism, VQ scan showed intermediate probability for pulmonary embolism, patient was found to have a new left leg DVT, Currently on Lovenox #9. Diverticulitis, status post lower anterior resection, takedown of splenic flexure and partial omentectomy #10. Alcohol abuse with alcohol withdrawal #11. Recent history dark black stools the possibility of upper GI bleeding, negative EGD #12. Altered mental status, related to metabolic encephalopathy, neurology is following. Off sedation and the patient has a component of a metabolic encephalopathy, sleepy, and unable to follow commands, withdraws from pain #13. History of diverticular disease #14. History of EtOH abuse #15 hyperchloremic hypernatremia, sodium level is down to 141 #16 chronic anemia, multifactorial, hemoglobin stable at 9.1 #17 leukocytosis, currently on 22 Plan we'll discuss with infectious disease the possibility ofStopping oral vancomycin. The patient does not have C. diff colitis. Will consider restarting enteral feeding after treating this with general linda rgery Continue TPN for now Physical pressure support mode of ventilation for now Keep NG tube in place IV fluids will be cut down to 10 mL an hour. The patient's sodium level has normalized. Lovenox 60 mg subcu twice a day Discontinue the stress dose hydrocortisone up with the patient on 20 mg of h ydrocortisone twice a day orally . NG tube Physical therapy Celexa specialty, evaluation was done and more than 30 minutes. Critical care evaluation. Time with Patient: Greater than 30
[2020-03-10] MEDS ORDERED: DEXTROSE 5% IN WATER 1,000 ML IV ONE (07:14)
[2020-03-10 07:21] LABS: Glucose,Whole Blood 131 mg/dL (75-99)
[2020-03-10] MEDS: HYDROCORTISONE 20 MG TAB PO SCH ×2 (09:22→22:09)
[2020-03-10] MEDS: CHLORHEXIDINE GLUCONATE 15 ML CUP MUCOUS MEM SCH ×2 (09:22→21:43)
[2020-03-10] MEDS: PANTOPRAZOLE 40 MG/10 ML VIAL IVP SCH ×2 (09:23→21:43)
[2020-03-10] MEDS: ENOXAPARIN 60 MG/0.6 ML SYRINGE SQ SCH ×2 (09:23→22:09)
[2020-03-10] MEDS: FOLIC ACID 1 MG TAB OG-TUBE SCH (09:23)
[2020-03-10] MEDS: FAT EMULSION 20% 250 ML in EMPTY BAG 1 BAG IV SCH (09:23)
[2020-03-10] MEDS: THIAMINE 100 MG/ML 2 ML VIAL IVP SCH (09:24)
[2020-03-10] MEDS: FERROUS SULFATE ORAL ELIXIR 300 MG/5 ML CUP PO SCH ×2 (09:24→19:54)
[2020-03-10] MEDS: VANCOMYCIN ORAL SOLUTION 250 MG/5 ML BOTTLE PO SCH ×4 (10:25→21:43)
--- NOTE | 2020-03-10 10:27 | XR ---
EXAMINATION TYPE: XR chest 1V portable DATE OF EXAM: 03/10/2020 COMPARISON: 03/09/2020 HISTORY: NG tube placement TECHNIQUE: Single frontal view of the chest is obtained. FINDINGS: NG tube and tracheostomy tube stable. PICC line stable. Left-sided consolidation and pleur al effusion. No sizable pneumothorax. Chronic rib deformities are seen. Heart size normal. Atheroscle rotic change aorta. Surgical change left shoulder. IMPRESSION: 1. Stable left lower lobe infiltrate and small effusion.
[2020-03-10] MEDS ORDERED: MVI, ADULT NO.4 WITH VIT K 10 ML, TRACE (CONC-1ML/DOSE) 1 ML in AMINO ACID 5%-D15W+LYTE... IV SCH ×3 (12:00)
--- NOTE | 2020-03-10 13:07 | P.PN ---
Subjective Progress Note Date: 03/10/20 CHIEF COMPLAINT: Diverticulitis HISTORY OF PRESENT ILLNESS: Patient is status post lower anterior resection, takedown of splenic flexure and partial omentectomy on 02/07/2020. The morning of 02/26/20 patient was transferred to the ICU after STEVE KUMAR was called. Patient had become hypothermic and hypotensive. Patient become unresponsive they lost pulse and CPR was initiated. Patient did require to be intubated. Patient remains in the ICU . Patient is status post tracheostomy placement. PEG tube was unable to be placed because EGD had to be terminated because the esophagus could not be intubated due to significant swelling at the hypopharynx. Patient is currently on CPAP. Patient will have to be brought back for PEG tube placement on another day. Patient has had 3 paracentesis during this admission. He had another 4.5 L of ascites removed over the weekend. Patient is currently on TPN for nutrition poor support. NG tube has been reinserted. He is having stool through the fecal management system. Afebrile PHYSICAL EXAM: VITAL SIGNS: Reviewed. GENERAL: Well-developed in no acute distress. HEENT: No sclera icterus. Extraocular movements grossly intact. Moist buccal mucosa. Head is atraumatic, normocephalic. Trach site clean dry and intact ABDOMEN: Abdomen is soft and distended. Ascites present. Incision clean dry and intact. NEUROLOGIC: Patient able to open eyes and is awake ASSESSMENT: 1. Cardiopulmonary arrest and acute hypoxic respiratory failure secondary to septic shock. 2. Diverticulitis status post lower anterior resection, takedown of splenic fl exure and partial omentectomy on 02/07/2020 3. Patient's abdominal distention likely related to ileus, ascites from his liver cirrhosis and possible hernia. 4. Alcohol abuse with alcohol withdrawal 5. New left leg DVT during this admission 6. Possible ileus 7. Black stools. Resolved. No evidence of upper GI bleed on EGD. EGD was normal 8. Altered mental status likely due to cardiac arrest and superimposed toxic metabolic encephalopathy. Followed by neurology 9. Possible right lower lobe pneumonia 10. Severe protein calorie malnutrition 11. Liver cirrhosis with abdominal ascites status post paracentesis 2 during this admission 12. Hypokalemia improved 13. Patient status post tracheostomy for acute hypoxic respiratory failure PLAN: -Restart tube feedings through NG tube -Continue supportive care Physician Restaurant [employer] note has been reviewed by physician. Signing provider agrees with the documented findings, assessment, and plan of care. Objective - Vital Signs Vital signs: Vital Signs Temp 96.6 F L 03/10/20 12:00 Pulse 105 H 03/10/20 12:00 Resp 11 L 03/10/20 12:00 BP 98/66 03/09/20 23:00 Pulse Ox 97 03/10/20 12:00 Intake & Output 03/09/20 03/10/20 03/10/20 18:59 06:59 18:59 Intake Total 1191 1422 312 Output Total 4645 181 129 Balance -3454 1241 183 Weight 65.1 kg 65.1 kg 65.1 kg Intake: IV 1191 1422 312 Dextrose 5% in Water 1, 900 900 75 000 ml @ 75 mls/hr IV . [id number] JOANA Rx#:[id number] Fat Emulsion 20% 250 ml 105 126 84 In Empty Bag 1 bag @ 21 mls/hr IV DAILY JOANA Rx#: [id number] Mvi, Adult No.4 with Vit 150 360 150 K 10 ml Trace (Conc-1Ml/ Dose) 1 ml In Amino Acid 5%-D15w+Lytes*E* 1,000 ml @ 30 mls/hr IV .Q24H JOANA Rx#:[id number] Pressure bag 36 36 3 Output: Drainage 4400 Right Lower Lateral 4400 Abdomen Paracentesis site Urine 245 181 129 Other: Voiding Method Indwelling Catheter Indwelling Catheter Indwelling Catheter ABP, PAP, CO, CI - Last Documented Arterial Blood Pressure 116/60 - Labs CBC & Chem 7: 03/10/20 04:25 03/10/20 04:25 Labs: Abnormal Lab Results - Last 24 Hours (Table) 03/09/20 03/10/20 03/10/20 Range/Units 17:47 00:34 04:25 WBC 22.6 H (3.8-10.6) k/uL RBC 2.90 L (4.30-5.90) m/uL Hgb 9.7 L (13.0-17.5) gm/dL Hct 31.1 L (39.0-53.0) % MCV 107.3 H (80.0-100.0) fL RDW 16.0 H (11.5-15.5) % Neutrophils # 21.0 H (1.3-7.7) k/uL Lymphocytes # 0.6 L (1.0-4.8) k/uL Macrocytosis Marked A ABG pH (7.35-7.45) ABG pCO2 (35-45) mmHg ABG O2 Saturation (94-97) % Chloride (98-107) mmol/L Carbon Dioxide (22-30) mmol/L Glucose (74-99) mg/dL POC Glucose (mg/dL) 126 H 144 H (75-99) mg/dL Alkaline Phosphatase (38-126) U/L Total Protein (6.3-8.2) g/dL Albumin (3.5-5.0) g/dL 03/10/20 03/10/20 03/10/20 Range/Units 04:25 05:12 07:19 WBC (3.8-10.6) k/uL RBC (4.30-5.90) m/uL Hgb (13.0-17.5) gm/dL Hct (39.0-53.0) % MCV (80.0-100.0) fL RDW (11.5-15.5) % Neutrophils # (1.3-7.7) k/uL Lymphocytes # (1.0-4.8) k/uL Macrocytosis ABG pH 7.46 H (7.35-7.45) ABG pCO2 29 L (35-45) mmHg ABG O2 Saturation 97.9 H (94-97) % Chloride 118 H (98-107) mmol/L Carbon Dioxide 21 L (22-30) mmol/L Glucose 143 H (74-99) mg/dL POC Glucose (mg/dL) 131 H (75-99) mg/dL Alkaline Phosphatase 141 H (38-126) U/L Total Protein 4.7 L (6.3-8.2) g/dL Albumin 1.8 L (3.5-5.0) g/dL Microbiology - Last 24 Hours (Table) 03/07/20 15:35 Catheter Tip Culture - Final Catheter Tip
--- NOTE | 2020-03-10 20:50 | P.PN ---
Progress Note - Text Progress Note Date: 03/10/20 - Chief Complaint Abdominal surgery History of presenting complaint: This is a pleasant 64-year-old patient of . Patient been having complication to his diverticulitis. computed tomography scan on January 08. Showed some possible stricture. Hepatic steatosis. February 06- undergone low anterior resection. Epidural for pain control.patient had elevated d-dimer. Pulmonary embolism felt to be unlikely. CT was suboptimal. VQ scan was intermediate probability. Leg DVT treated with IV heparin. Had some dark stools.also patient had had altered mental status. [place] to be encephalopathy.computed tomography scan of the brain was unremarkable. EGD-no evidence of bleeding. Patient more awake after dose of baclofen cutback. changed over to xarelto.x-ray showing ileus. Patient did start having bowel movements. Repeat computed tomography scan of abdomen showed possible enteritis./Colitis.as abdomen appeared distended. Lemus catheter was placed. No urine retention.-patient become hypotensive. Had a brief cardiac and pulmonary arrest Moved to ICU. Had to be intubated. Drips include norepinephrine, vasopressin, propofol. NG tube to suction.also treated for aspiration pneumonia and abdominal wall cellulitis.ascitic fluid that was tapped was unremarkable.4.5 L of acetic fluid removed. On March 06 underwent tracheostomy.Dophoff tube was placed and then had to be removed because of abdominal distention. Today. [id number] 35 PEEP of 5. In atrial fibrillation. NG tube in place. [address]. Lethargic Review of systems: Patient intubated Active Medications Albuterol/Ipratropium (Ipratropium-Albuterol 3 Ml Neb) 3 ml INHALATION RT-Q4H [facility] Last Admin: 03/10/20 19:28 Dose: 3 ml Documented by: Albuterol/Ipratropium (Ipratropium-Albuterol 3 Ml Neb) 3 ml INHALATION RT-Q2H PRN PRN Reason: Shortness Of Breath Or Wheezing Atorvastatin Calcium (Atorvastatin 20 Mg Tab) 20 mg OG-TUBE HS [facility] Last Admin: 03/09/20 21:57 Dose: Not Given Documented by: Chlorhexidine Gluconate (Chlorhexidine Gluconate 15 Ml Cup) 15 ml MUCOUS MEM BID [facility] Last Admin: 03/10/20 09:22 Dose: 15 ml Documented by: Enoxaparin Sodium (Enoxaparin 60 Mg/0.6 Ml Syringe) 60 mg SQ BID [facility] Last Admin: 03/10/20 09:23 Dose: 60 mg Documented by: Ferrous Sulfate (Ferrous Sulfate Oral Elixir 300 Mg/5 Ml Cup) 300 mg PO BID- W/MEALS [facility] Last Admin: 03/10/20 19:54 Dose: Not Given Documented by: Folic Acid (Folic Acid 1 Mg Tab) 1 mg OG-TUBE DAILY [facility] Last Admin: 03/10/20 09:23 Dose: 1 mg Documented by: Hydrocortisone (Hydrocortisone 20 Mg Tab) 20 mg PO BID [facility] Last Admin: 03/10/20 09:22 Dose: 20 mg Documented by: Fat Emulsion Intravenous 250 (ml/ IV Solution) 250 mls @ 21 mls/hr IV DAILY [facility] Last Admin: 03/10/20 09:23 Dose: 21 mls/hr Documented by: Dextrose/Water (Dextrose 5%-Water Iv Soln) 1,000 mls @ 10 mls/hr IV .Q24H ONE Stop: 03/11/20 07:13 Last Admin: 03/10/20 07:39 Dose: 10 mls/hr Documented by: Insulin Aspart (Insulin Aspart (Novolog) 100 Unit/Ml Vial) 0 unit SQ Q6H [facility]; Protocol Last Admin: 03/10/20 19:54 Dose: Not Given Documented by: Metoclopramide HCl (Metoclopramide 5 Mg/Ml 2 Ml Vial) 10 mg IVP Q6HR PRN PRN Reason: Nausea and Vomiting Miscellaneous Information (Magnesium Replacement Protocol 1 Each Misc) 1 each MISCELLANE DAILY PRN; Protocol PRN Reason: Per Protocol Miscellaneous Information (Potassium Replacement Protocol 1 Each Misc) 1 each MISCELLANE DAILY PRN; Protocol PRN Reason: Per Protocol Ondansetron HCl (Ondansetron 4 Mg/2 Ml Vial) 4 mg IVP Q8HR PRN PRN Reason: Nausea And Vomiting Pantoprazole Sodium (Pantoprazole 40 Mg/10 Ml Vial) 40 mg IVP BID [facility] Last Admin: 03/10/20 09:23 Dose: 40 mg Documented by: Sodium Chloride (Sodium Chloride 0.9% Flush 10 Ml Syringe) 10 ml IV Q4HR PRN PRN Reason: PICC Line Sodium Chloride (Sodium Chloride 0.9% Flush 10 Ml Syringe) 10 ml IV WEEKLY [facility] Sodium Chloride (Sodium Chloride 0.9% Flush 10 Ml Syringe) 20 ml IV Q4HR PRN PRN Reason: PICC Line Tamsulosin HCl (Tamsulosin 0.4 Mg Cap.Er.24h) 0.4 mg PO HS [facility] Last Admin: 03/09/20 21:57 Dose: Not Given Documented by: Thiamine HCl (Thiamine 100 Mg/Ml 2 Ml Vial) 100 mg IVP DAILY [facility] Last Admin: 03/10/20 09:24 Dose: 100 mg Documented by: Vancomycin HCl (Vancomycin Oral Solution 250 Mg/5 Ml Bottle) 125 mg PO QID [facility] Last Admin: 03/10/20 19:55 Dose: 125 mg Documented by: Physical examination: VITAL SIGNS: 96.6, 105, 11,116/60, 97% on the ventilator GENERAL: Laying in bed, intubated. Tracheostomy tube, edema EYES: Pupils equal. Conjunctiva normal. HEENT:, Dry oral cavity NECK: JVD unable to assess; masses not palpable. Tracheostomy tube HEART: First and second heart sounds are normal; some edema LUNGS: Respiratory rate increased; decreased breath sounds. ABDOMEN: Soft, distended , nontender, , area of subcutaneous swelling around the incision site. PSYCH: Unable to assess NEUROLOGICAL: Does respond to pain. Occasional spontaneous eye opening. Pupils equal. INVESTIGATIONS, reviewed in the clinical context: March 10: White count 22.6 hemoglobin 9.7 platelets 366potassium 4.1 creatinine 0.67 March 09: White count 18.2, hemoglobin 9.5, platelets 369 sodium 147 potassium 4.2 creatinine 0.77 March 08: White count 98.1 hemoglobin 19.3 platelets 329 sodium 148 potassium 3.2 right 126 creatinine 0.7 to albumin 1.9 March 07: White count 24 hemoglobin 9.8 platelets 366 potassium 3.7 creatinine 0.73 White count 16.4 hemoglobin 8.8 platelets 276 potassium 3.5 creatinine 0.71 Previous testing EEG shows evidence of encephalopathy Computed tomography scan of the brain-mild atrophy 2-D echocardiogram-EF 55-60% VQ scan-intermediate probability Chest CTA-suboptimal study. Doppler ultrasound-positive for thrombus within the distal popliteal vein White count 10.2 hemoglobin 14.2 potassium 3.6 B12 some 08 Previously AST 129 ALT 50 Computed tomography scan of the abdomen from January 08-possible colitis, diverticulitis, some esophagitis, hepatic steatosis Abdominal x-ray film personally reviewed by me shows ileus Sputum growing [place] Assessment: -Acute hypoxic respiratory failure, requiring ventilator support-slow to respond -Septic shock-currently off levo fed -Status post low anterior resection, for diverticulitis complication -Postop ileus-recovered -Chronic nicotine dependence patient cigarette smoker -Clinical emphysema, asymptomatic -Suspect alcoholic hepatitis -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 Repeat paracentesis. 4.5 L.-repeat paracentesis is 4.4 L.. -Mild hyponatremia -Hypernatremia -Macrocytic anemia. -Acute DVT in the left distal popliteal vein -Acute alcohol withdrawal syndrome with improvement -Right lower lobe pneumonia -Mild protein calorie malnutrition from decreased oral intake -Tracheostomy tube placed on March 06 -Metabolic encephalopathy-no improvement -Dobbhoff tube placed and removed Plan: ICU-prognosis remains poor. NG tube feeding.. Prognosis guarded. follow-up in dispatcher motor vehicle and surgery.. Thank you Dr. Lee
[2020-03-10 21:33] LABS: Glucose,Whole Blood 106 mg/dL (75-99)
[2020-03-10] MEDS: ATORVASTATIN 20 MG TAB OG-TUBE SCH (21:43)
[2020-03-10] MEDS: TAMSULOSIN 0.4 MG CAP.ER.24H PO SCH (21:43)
[2020-03-10] MEDS ORDERED: FLUCONAZOLE 100 MG TAB PO ONE (22:00)
--- NOTE | 2020-03-10 22:57 | PN ---
PROGRESS NOTE DATE OF SERVICE: 03/10/2020 REASON FOR FOLLOWUP: Leukocytosis and diarrhea. INTERVAL HISTORY: The patient is currently afebrile. The patient seems to be slightly more awake. He did respond to his name but was unable to provide any history. No nausea or vomiting has been reported or any worsening diarrhea by the nursing staff. PHYSICAL EXAMINATION: Blood pressure 129/74 with a pulse of 121, temperature 98.4. He is 96% on 35% FiO2. General description is a middle-aged male lying in bed in no distress. RESPIRATORY SYSTEM: Unlabored breathing with decreased breath sounds at the base. No wheeze. HEART: S1, S2. Regular rate and rhythm. ABDOMEN: Soft. No tenderness. LAB: Hemoglobin is 9.7, white count 22.6, BUN of 19, creatinine 0.67. Sputum is Pita albicans. Catheter tip culture is negative. DIAGNOSTIC IMPRESSION AND PLAN: Patient with elevated white count, possibly related to steroids, plus or minus oropharyngeal candidiasis . We will add Diflucan and see response to it and monitor his clinical course closely. Continue supportive care. MMODL / IJN: [id number] /
[2020-03-11] MEDS: INSULIN ASPART (NovoLOG) 100 UNIT/ML VIAL SQ SCH ×4 (00:50→18:30)
[2020-03-11 00:51] LABS: Glucose,Whole Blood 124 mg/dL (75-99)
[2020-03-11] MEDS: IPRATROPIUM-ALBUTEROL 3 ML NEB INHALATION SCH ×6 (03:16→23:42)
[2020-03-11 04:46] LABS: ABG Base Excess -3.6 mmol/L; ABG HCO3 20 mmol/L (21-25); ABG Oxygen Saturation 96.3 % (94-97); ABG PCO2 27 mmHg (35-45); ABG PH 7.48 (7.35-7.45); ABG PO2 72 mmHg (83-108); ABG TCO2 21 mmol/L (19-24)
[2020-03-11 05:17] LABS: Anisocytosis Slight; Basophils % (A) 0 %; Eosinophils % (A) 0 %; HCT 32.4 % (39.0-53.0); HGB 9.9 gm/dL (13.0-17.5); Hypochromasia Marked; Lymphocytes # (A) 1.1 k/uL (1.0-4.8); Lymphocytes % (A) 5 %; MCH 32.5 pg (25.0-35.0); MCHC 30.5 g/dL (31.0-37.0); MCV 106.5 fL (80.0-100.0); Mean Platelet Volume 10.4; Monocytes # (A) 0.9 k/uL (0-1.0); Monocytes % (A) 4 %; Neutrophils # (A) 18.7 k/uL (1.3-7.7); Neutrophils % (A) 89 %; Platelet Count 393 k/uL (150-450); RBC 3.04 m/uL (4.30-5.90); RDW 16.2 % (11.5-15.5); WBC 20.9 k/uL (3.8-10.6)
[2020-03-11 05:21] LABS: Macrocytosis Marked
[2020-03-11 05:33] LABS: ALT 40 U/L (4-49); AST 37 U/L (17-59); African American GFR (CKD) >90 (>60 ml/min/1.73 sqM); Albumin 1.9 g/dL (3.5-5.0); Alkaline Phosphatase 173 U/L (38-126); Anion Gap 2 mmol/L; Blood Urea Nitrogen 24 mg/dL (9-20); Calcium 8.4 mg/dL (8.4-10.2); Carbon Dioxide 20 mmol/L (22-30); Chloride 115 mmol/L (98-107); Glucose 143 mg/dL (74-99); Magnesium 1.8 mg/dL (1.6-2.3); Non-African American GFR(CKD) >90 (>60 ml/min/1.73 sqM); Phosphorus 3.9 mg/dL (2.5-4.5); Potassium 4.2 mmol/L (3.5-5.1); Sodium 137 mmol/L (137-145); Total Bilirubin 0.3 mg/dL (0.2-1.3); Total Protein 4.9 g/dL (6.3-8.2)
[2020-03-11 05:34] LABS: Allen Test Performed? no
--- NOTE | 2020-03-11 06:56 | P.PN ---
Subjective Progress Note Date: 03/11/20 On 03/10/2020 and seeing this patient for a follow-up in the intensive care unit. The patient was admitted on 02/07/2020. The patient is postop AP resection for strictures of diverticular disease. The patient developed clinical deterioration with abdominal sepsis. The patient also had a cardiac pulmonary arrest that was brief and the patient was intubated and placed on a mechanical ventilator and the patient was transferred to the intensive care unit. The acute cardiopulmonary arrest that occurred on 02/26/2020 related to septic shock and the patient required a brief CPR and the patient required intubation and fluid resuscitation and pressors. The patient also developed ascites. Due to his prolonged mechanical ventilation, the patient ultimately had a tracheostomy tube insertion on 03/06/2020. He underwent paracentesis with removal of 8 L of abdominal fluid from the peritoneal cavity on 02/27/2020. And following that a repeat paracentesis was done on 03/05/2026 liters of fluid. Th e patient currently is on a mechanical ventilator and the patient is being ventilated through his tracheostomy tube. The patient is an assist-control mode of ventilation at the rate of 10 with tidal volume of 100 and FiO2 of 35% with a PEEP of 5. The patient is receiving IV fluids to D5 water at the rate of 75 mL an hour. The Dobbhoff catheter was removed and the patient was given an NG was attempted and was not insertable. As such, TPN was recommended. The patient had developed some abdominal distention earlier. Last paracentesis was done yesterday and a total of 4.4 L of ascitic fluid was removed from the abdomen. The patient otherwise doing reasonably well. The patient had also diagnosed having a left lower extremity DVT treated with SC Lovenox. The patient also is currently on TPN. The patient is on stress dose hydrocortisone 50 mg IV every 12 hours, Lovenox 60 mg subcu twice a day and oral vancomycin 125 mg by mouth 4 times a day for some component of enteritis. During the course of the treatment the patient was treated for aspiration pneumonia and abdominal wall cellulitis. The patient had developed diarrhea due to antibiotic exposure and the patient completed the 2 week course of Zosyn and the patient is currently on oral vancomycin. Stool for C. diff has been negative. ID is on the case. on today's evaluation of 03/10/2020, the patient was switched a CPAP at a pressure of 5 pressure support and a PEEP of 5 with an FiO2 of 30%. He is able to generate tidal volumes of about 700. the chest x-ray showing a small left- sided pleural effusion. NG tube is in a good location. The patient has a PICC line right upper extremity. There is a small left-sided pleural effusion for now. The patient has a Bivona tracheostomy tube #8. He is calm and comfortable. No significant orotracheal secretions. Lemus catheter in place. The patient has a PICC line in the right upper extremity and currently is receiving TPN for nutritional support. He also has an NG tube in place. He is not receiving any enteral feeding at this point in time. He does have diffuse anasarca. Abdominal wound is dry clean and intact. Yvonne are still in place. No active drainage. He does have a fecal management system in place and output is in order of minimal probably a few cc on an hourly basis. on today's evaluation of 03/11/2020, the patient is still on CPAP and he was on CPAP pressure support mode overnight at a pressure of 5 cm of water. He is generating tidal volume of 380-400. No tachypnea. No respiratory distress. His blood gases from today showed a pH of 7.48 with a pCO2 of 27 and O2 of 72. The chest x-ray from this morning shows that the patient has a adequate positioning of the tracheostomy tube. Lungs are well expanded. There is no evidence of any pneumothorax. There is a small left-sided pleural effusion. The patient has a PICC line in the right upper extremity. NG tube is in a good location. TPN was discontinued yesterday and the patient was restarted back on enteral feeding and currently is taking right femoral high protein at the rate of 35 mL an hour. He is arousable. He is awake. He follows simple commands. Is extremely debilitated and weak. The fecal management system was discontinued as the patient was not having any further bouts of diarrhea. His body weight is 67 kg. The patient is still on oral vancomycin. This will be discussed with IV. His white cell count is at 20.9. Objective - Vital Signs Vital signs: Vital Signs Temp 97.5 F L 03/11/20 04:00 Pulse 120 H 03/11/20 06:00 Resp 10 L 03/11/20 06:00 BP 95/72 03/11/20 01:00 Pulse Ox 96 03/11/20 06:00 Intake & Output 03/10/20 03/10/20 03/11/20 06:59 18:59 06:59 Intake Total 1422 593 376 Output Total 411 096 0625 Balance 8102 119 -1638 Weight 65.1 kg 65.1 kg 65.1 kg Intake: IV 1422 533 130 Dextrose 5% in Water 1, 900 75 100 000 ml @ 75 mls/hr IV . [id number] JOANA Rx#:[id number] Fat Emulsion 20% 250 ml 126 185 0 In Empty Bag 1 bag @ 21 mls/hr IV DAILY JOANA Rx#: [id number] Mvi, Adult No.4 with Vit 360 270 0 K 10 ml Trace (Conc-1Ml/ Dose) 1 ml In Amino Acid 5%-D15w+Lytes*E* 1,000 ml @ 30 mls/hr IV .Q24H JOANA Rx#:[id number] Pressure bag 36 3 30 Tube Feeding 60 186 Other 60 Output: Drainage 4400 Right Lower Lateral 4400 Abdomen Paracentesis site Urine 181 204 220 Other: Voiding Method Indwelling Catheter Indwelling Catheter Indwelling Catheter ABP, PAP, CO, CI - Last Documented Arterial Blood Pressure 98/57 - Exam GENERAL EXAM: Intubated sedated 64-year-old white male, trached to the mechanical ventilator on assist-control mode of ventilation, in no acute distress, currently on a pressure support of 5 and a PEEP of 5 with an FiO2 of 35%. HEAD: Normocephalic/atraumatic. EYES: Normal reaction of pupils, equal size. Conjunctiva pink, sclera white. NOSE: Clear with pink turbinates. THROAT: No erythema or exudates. NECK: No masses, no JVD, no thyroid enlargement, no adenopathy. Midline tracheostomy in place, patient connected to the ventilator with assist control mode of ventilation CHEST: No chest wall deformity. Symmetrical expansion. LUNGS: Equal air entry with no crackles, wheeze, rhonchi or dullness. CVS: Regular rate and rhythm, normal S1 and S2, no gallops, no murmurs, no rubs ABDOMEN: Less distended and firm on today's exam compared to last week, mild tenderness to palpation, rigidity, and abdominal incision is clean dry and intact, well approximated and healed, yvonne are in place, intact EXTREMITIES: No clubbing, 2+ upper and lower extremity edema, patient has a weeping edema with the drainage from the catheter insertion sites no cyanosis, 2+ pulses and upper and lower extremities. Picc line is in the RUE, diffuse anasarca in all 4 extremities mainly the lower extremities and in the thighs MUSCULOSKELETAL: Muscle strength and tone normal. SPINE: No scoliosis or deformity SKIN: No rashes CENTRAL NERVOUS SYSTEM: awake and the patient has a tone is normal in all 4 extremities. - Labs CBC & Chem 7: 03/11/20 05:00 03/11/20 05:00 Labs: Abnormal Lab Results - Last 24 Hours (Table) 03/10/20 03/10/20 03/11/20 Range/Units 07:19 21:30 00:49 WBC (3.8-10.6) k/uL RBC (4.30-5.90) m/uL Hgb (13.0-17.5) gm/dL Hct (39.0-53.0) % MCV (80.0-100.0) fL MCHC (31.0-37.0) g/dL RDW (11.5-15.5) % Neutrophils # (1.3-7.7) k/uL Macrocytosis ABG pH (7.35-7.45) ABG pCO2 (35-45) mmHg ABG pO2 (83-108) mmHg ABG HCO3 (21-25) mmol/L Chloride (98-107) mmol/L Carbon Dioxide (22-30) mmol/L BUN (9-20) mg/dL Glucose (74-99) mg/dL POC Glucose (mg/dL) 131 H 106 H 124 H (75-99) mg/dL Alkaline Phosphatase (38-126) U/L Total Protein (6.3-8.2) g/dL Albumin (3.5-5.0) g/dL 03/11/20 03/11/20 03/11/20 Range/Units 04:44 05:00 05:00 WBC 20.9 H (3.8-10.6) k/uL RBC 3.04 L (4.30-5.90) m/uL Hgb 9.9 L (13.0-17.5) gm/dL Hct 32.4 L (39.0-53.0) % MCV 106.5 H (80.0-100.0) fL MCHC 30.5 L (31.0-37.0) g/dL RDW 16.2 H (11.5-15.5) % Neutrophils # 18.7 H (1.3-7.7) k/uL Macrocytosis Marked A ABG pH 7.48 H (7.35-7.45) ABG pCO2 27 L (35-45) mmHg ABG pO2 72 L (83-108) mmHg ABG HCO3 20 L (21-25) mmol/L Chloride 115 H (98-107) mmol/L Carbon Dioxide 20 L (22-30) mmol/L BUN 24 H (9-20) mg/dL Glucose 143 H (74-99) mg/dL POC Glucose (mg/dL) (75-99) mg/dL Alkaline Phosphatase 173 H (38-126) U/L Total Protein 4.9 L (6.3-8.2) g/dL Albumin 1.9 L (3.5-5.0) g/dL Assessment and Plan Plan: #1. Acute hypoxic respiratory failure related to septic shock, with a possibility of abdominal sepsis, although cultures from the paracentesis fluid have been negative. On 03/07/2020 patient remains trached to the mechanical ventilator on assist control mode of ventilation. Patient had a tracheostomy on 03/06/2020. The patient's most recent chest x-ray shows a small left-sided pleural effusion. Tracheostomy tube in place and the patient is currently on a pressure support of 5 and a PEEP of 5 with spontaneous breathing mode and is able to generate adequate tidal volumes.the patient has stayed on a spontaneous breathing for the past 48 hours and the patient may be considered for trach collar. He does have a small left-sided pleural effusion. #2. Acute cardiac pulmonary arrest on 02/26/2020 related to septic shock, patient required a brief CPR, was intubated and fluid resuscitated, and she is currently off pressors and he is hemodynamicaly stable #3. Increased bibasilar opacities and a chest x-ray shows a small left-sided pleural effusion #4. Abdominal pain and distention, improved post-paracentesis #5. Massive ascites, status post high-volume paracentesis, on 02/27/2020 with removal of 8 L of ascitic fluid, and repeat paracentesis on 2019 would removal of 6 L of fluid and then 4.5 liters on 03/09/2020, slight abdominal distention today's evaluation #6. Non-anion gap metabolic acidosis related to septic shock, and has received IV fluids and bicarbonate infusion, resolved #7. Volume contraction alkalosis, secondary to paracentesis and diuretic therapy #8. Elevated d-dimer, nonspecific, doubt possibility of pulmonary embolism. CTA chest was suboptimal but did not reveal any evidence of central pulmonary embolism, VQ scan showed intermediate probability for pulmonary embolism, patient was found to have a new left leg DVT, Currently on Lovenox #9. Diverticulitis, status post lower anterior resection, takedown of splenic flexure and partial omentectomy #10. Alcohol abuse with alcohol withdrawal #11. Recent history dark black stools the possibility of upper GI bleeding, negative EGD #12. Altered mental status, related to metabolic encephalopathy, neurology is following. Off sedation and the patient has a component of a metabolic encephalopathy, sleepy, and unable to follow commands, withdraws from pain, and he seems to be more alert. #13. History of diverticular disease #14. History of EtOH abuse #15 hyperchloremic hypernatremia, sodium level is down to 137 #16 chronic anemia, multifactorial, hemoglobin stable at 9.9 #17 leukocytosis, currently on 20.9 Plan we'll discuss with infectious disease the possibility of Stopping oral vancomycin. The patient does not have C. diff colitis.the patient is not having any further more diarrhea and the fecal management system has been discontinued. continue enteral feeding stop TPN for now Physical pressure support mode of ventilation for now, and try trach collar at a later stage today IV fluids will be cut down to 10 mL an hour. The patient's sodium level has normalized. Lovenox 60 mg subcu twice a day Physical therapy select specialty, evaluation was done and more than 30 minutes. Critical care evaluation. Time with Patient: Greater than 30
[2020-03-11 07:06] LABS: Glucose,Whole Blood 137 mg/dL (75-99)
[2020-03-11] MEDS: MAGNESIUM SULFATE-D5W PMX 1 GM in DEXTROSE/WATER 1 100ML.BAG IVPB SCH ×2 (07:09→10:28)
--- NOTE | 2020-03-11 08:31 | XR ---
EXAMINATION TYPE: XR chest 1V portable DATE OF EXAM: 03/11/2020 COMPARISON: Prior chest x-ray 03/10/2020 HISTORY: Mechanical ventilation, abnormal chest x-ray TECHNIQUE: Single frontal view of the chest is obtained. FINDINGS: Orogastric tube, tracheostomy tube, right-sided PICC line are all again noted, distal tip of the gastric tube not included on exam. Retrocardiac density, obscured left hemidiaphragm with basi lar density is again seen. No evident pneumothorax. Heart is stable. IMPRESSION: Findings are stable, correlate for lower lobe pneumonia, effusion
[2020-03-11] MEDS: FERROUS SULFATE ORAL ELIXIR 300 MG/5 ML CUP PO SCH ×2 (10:28→18:30)
[2020-03-11] MEDS: CHLORHEXIDINE GLUCONATE 15 ML CUP MUCOUS MEM SCH ×2 (10:28→21:14)
[2020-03-11] MEDS: PANTOPRAZOLE 40 MG/10 ML VIAL IVP SCH ×2 (10:28→21:14)
[2020-03-11] MEDS: FOLIC ACID 1 MG TAB OG-TUBE SCH (10:29)
[2020-03-11] MEDS: THIAMINE 100 MG/ML 2 ML VIAL IVP SCH (10:29)
[2020-03-11] MEDS: ENOXAPARIN 60 MG/0.6 ML SYRINGE SQ SCH ×2 (10:29→21:15)
[2020-03-11] MEDS: HYDROCORTISONE 20 MG TAB PO SCH ×2 (10:31→22:08)
[2020-03-11 11:10] LABS: INR 0.9 (<1.2); Prothrombin Time 9.9 sec (9.0-12.0)
[2020-03-11 12:14] LABS: Glucose,Whole Blood 156 mg/dL (75-99)
--- NOTE | 2020-03-11 12:54 | P.PN ---
Subjective Progress Note Date: 03/11/20 CHIEF COMPLAINT: Diverticulitis HISTORY OF PRESENT ILLNESS: Patient is status post lower anterior resection, takedown of splenic flexure and partial omentectomy on 02/07/2020. The morning of 02/26/20 patient was transferred to the ICU after STEVE KUMAR was called. Patient had become hypothermic and hypotensive. Patient become unresponsive they lost pulse and CPR was initiated. Patient did require to be intubated. Patient seen and examined with Dr. wilks. Patient remains in the ICU . Patient is status post tracheostomy placement. PEG tube was unable to be placed because EGD had to be terminated because the esophagus could not be intubated due to significant swelling at the hypopharynx. Patient is currently on CPAP. TPN was discontinued yesterday and patient was placed back on enteral feedings through the NG tube. Patient is awake. Fecal management system was discontinued today. Patient's abdomen is more distended today with the ascites. Afebrile. WBC 20.9 PHYSICAL EXAM: VITAL SIGNS: Reviewed. GENERAL: Well-developed in no acute distress. HEENT: No sclera icterus. Extraocular movements grossly intact. Moist buccal mucosa. Head is atraumatic, normocephalic. Trach site clean dry and intact ABDOMEN: Abdomen is more distended. Ascites present. Incision clean dry and intact. NEUROLOGIC: Patient able to open eyes and is awake ASSESSMENT: 1. Cardiopulmonary arrest and acute hypoxic respiratory failure secondary to septic shock. 2. Diverticulitis status post lower anterior resection, takedown of splenic flexure and partial omentectomy on 02/07/2020 3. Patient's abdominal distention likely related to ileus, ascites from his liver cirrhosis and possible hernia. 4. Alcohol abuse with alcohol withdrawal 5. New left leg DVT during this admission 6. Possible ileus 7. Black stools. Resolved. No evidence of upper GI bleed on EGD. EGD was normal 8. Altered mental status likely due to cardiac arrest and superimposed toxic metabolic encephalopathy. Followed by neurology 9. Possible right lower lobe pneumonia 10. Severe protein calorie malnutrition 11. Liver cirrhosis with abdominal ascites status post paracentesis 2 during this admission 12. Hypokalemia improved 13. Patient status post tracheostomy for acute hypoxic respiratory failure PLAN: -Abdominal ultrasound with possible paracentesis for abdominal ascites has been ordered -Continue tube feedings through NG tube -Continue supportive care Physician Decontaminator note has been reviewed by physician. Signing provider agrees with the documented findings, assessment, and plan of care. Objective - Vital Signs Vital signs: Vital Signs Temp 98.2 F 03/11/20 12:00 Pulse 105 H 03/11/20 12:00 Resp 20 03/11/20 12:00 BP 95/72 03/11/20 01:00 Pulse Ox 95 03/11/20 12:00 Intake & Output 03/10/20 03/11/20 03/11/20 18:59 06:59 18:59 Intake Total 593 389 355 Output Total 204 4630 130 Balance 389 -4241 225 Weight 65.1 kg 65.1 kg 66.3 kg Intake: IV 533 143 65 Dextrose 5% in Water 1, 75 110 50 000 ml @ 75 mls/hr IV . [id number] JOANA Rx#:[id number] Fat Emulsion 20% 250 ml 185 0 In Empty Bag 1 bag @ 21 mls/hr IV DAILY JOANA Rx#: [id number] Mvi, Adult No.4 with Vit 270 0 K 10 ml Trace (Conc-1Ml/ Dose) 1 ml In Amino Acid 5%-D15w+Lytes*E* 1,000 ml @ 30 mls/hr IV .Q24H JOANA Rx#:[id number] Pressure bag 3 33 15 Intake, IV Titration 100 Amount Magnesium Sulfate-D5w Pmx 100 1 gm In Dextrose/Water 1 100ml.bag @ 100 mls/hr IVPB Q1H JOANA Rx#: [id number] Tube Feeding 60 186 160 Other 60 30 Output: Drainage 4400 Right Lower Lateral 4400 Abdomen Paracentesis site Urine 204 230 130 Other: Voiding Method Indwelling Catheter Indwelling Catheter Indwelling Catheter ABP, PAP, CO, CI - Last Documented Arterial Blood Pressure 109/61 - Labs CBC & Chem 7: 03/11/20 05:00 03/11/20 05:00 Labs: Abnormal Lab Results - Last 24 Hours (Table) 03/10/20 03/11/20 03/11/20 Range/Units 21:30 00:49 04:44 WBC (3.8-10.6) k/uL RBC (4.30-5.90) m/uL Hgb (13.0-17.5) gm/dL Hct (39.0-53.0) % MCV (80.0-100.0) fL MCHC (31.0-37.0) g/dL RDW (11.5-15.5) % Neutrophils # (1.3-7.7) k/uL Macrocytosis ABG pH 7.48 H (7.35-7.45) ABG pCO2 27 L (35-45) mmHg ABG pO2 72 L (83-108) mmHg ABG HCO3 20 L (21-25) mmol/L Chloride (98-107) mmol/L Carbon Dioxide (22-30) mmol/L BUN (9-20) mg/dL Glucose (74-99) mg/dL POC Glucose (mg/dL) 106 H 124 H (75-99) mg/dL Alkaline Phosphatase (38-126) U/L Total Protein (6.3-8.2) g/dL Albumin (3.5-5.0) g/dL 03/11/20 03/11/20 03/11/20 Range/Units 05:00 05:00 07:03 WBC 20.9 H (3.8-10.6) k/uL RBC 3.04 L (4.30-5.90) m/uL Hgb 9.9 L (13.0-17.5) gm/dL Hct 32.4 L (39.0-53.0) % MCV 106.5 H (80.0-100.0) fL MCHC 30.5 L (31.0-37.0) g/dL RDW 16.2 H (11.5-15.5) % Neutrophils # 18.7 H (1.3-7.7) k/uL Macrocytosis Marked A ABG pH (7.35-7.45) ABG pCO2 (35-45) mmHg ABG pO2 (83-108) mmHg ABG HCO3 (21-25) mmol/L Chloride 115 H (98-107) mmol/L Carbon Dioxide 20 L (22-30) mmol/L BUN 24 H (9-20) mg/dL Glucose 143 H (74-99) mg/dL POC Glucose (mg/dL) 137 H (75-99) mg/dL Alkaline Phosphatase 173 H (38-126) U/L Total Protein 4.9 L (6.3-8.2) g/dL Albumin 1.9 L (3.5-5.0) g/dL 03/11/20 Range/Units 12:13 WBC (3.8-10.6) k/uL RBC (4.30-5.90) m/uL Hgb (13.0-17.5) gm/dL Hct (39.0-53.0) % MCV (80.0-100.0) fL MCHC (31.0-37.0) g/dL RDW (11.5-15.5) % Neutrophils # (1.3-7.7) k/uL Macrocytosis ABG pH (7.35-7.45) ABG pCO2 (35-45) mmHg ABG pO2 (83-108) mmHg ABG HCO3 (21-25) mmol/L Chloride (98-107) mmol/L Carbon Dioxide (22-30) mmol/L BUN (9-20) mg/dL Glucose (74-99) mg/dL POC Glucose (mg/dL) 156 H (75-99) mg/dL Alkaline Phosphatase (38-126) U/L Total Protein (6.3-8.2) g/dL Albumin (3.5-5.0) g/dL
--- NOTE | 2020-03-11 15:42 | P.PN ---
Subjective Progress Note Date: 03/11/20 Patient was seen for a follow-up. Patient was last seen on 02/22/2020. Patient was doing remarkably better. Patient apparently had a cardiac arrest on 02/26/2020. His encephalopathy again got worse. Patient had undergone track and pack placement. Patient at present is laying in the bed, appears somewhat and respiratory distress, has tracheostomy in place. 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 He previously had admitted to drinking heavily. Patient has smoked 1-1/2 pack per day for 30 years. Objective - Vital Signs Vital signs: Vital Signs Temp 98.2 F 03/11/20 12:00 Pulse 106 H 03/11/20 15:00 Resp 16 03/11/20 15:00 BP 94/59 03/11/20 15:00 Pulse Ox 94 L 03/11/20 15:00 Intake & Output 03/10/20 03/11/20 03/11/20 18:59 06:59 18:59 Intake Total 593 389 517 Output Total 204 4630 4280 Balance 808 -6088 -6090 Weight 65.1 kg 65.1 kg 66.3 kg Intake: IV 533 143 117 Dextrose 5% in Water 1, 75 110 90 000 ml @ 75 mls/hr IV . [id number] [facility] Rx#:[id number] Fat Emulsion 20% 250 ml 185 0 In Empty Bag 1 bag @ 21 mls/hr IV DAILY JOANA Rx#: [id number] Mvi, Adult No.4 with Vit 270 0 K 10 ml Trace (Conc-1Ml/ Dose) 1 ml In Amino Acid 5%-D15w+Lytes*E* 1,000 ml @ 30 mls/hr IV .Q24H [facility] Rx#:[id number] Pressure bag 3 33 27 Intake, IV Titration 100 Amount Magnesium Sulfate-D5w Pmx 100 1 gm In Dextrose/Water 1 100ml.bag @ 100 mls/hr IVPB Q1H [facility] Rx#: [id number] Tube Feeding 60 186 240 Other 60 60 Output: Drainage 4400 4000 Right Lower Lateral 4400 4000 Abdomen Paracentesis site Urine 204 230 280 Other: Voiding Method Indwelling Catheter Indwelling Catheter Indwelling Catheter ABP, PAP, CO, CI - Last Documented Arterial Blood Pressure 104/53 - Exam Patient is laying in the bed. Patient appears obviously encephalopathic, but does make eye contact, follows very minimal directions. Patient does have slow mentation, starry eyes at times. Pupils are round and reacting. Extraocular muscles are intact, face is symmetric. She does arms slightly, but appears weak, does not follow much commands. Patient wiggles his feet for with plantar solution equally. Patient has significant peripheral edema. Abdomen is somewhat protuberant. He has recurrent ascites. - Labs CBC & Chem 7: 03/11/20 05:00 03/11/20 05:00 Labs: Abnormal Lab Results - Last 24 Hours (Table) 03/10/20 03/11/20 03/11/20 Range/Units 21:30 00:49 04:44 WBC (3.8-10.6) k/uL RBC (4.30-5.90) m/uL Hgb (13.0-17.5) gm/dL Hct (39.0-53.0) % MCV (80.0-100.0) fL MCHC (31.0-37.0) g/dL RDW (11.5-15.5) % Neutrophils # (1.3-7.7) k/uL Macrocytosis ABG pH 7.48 H (7.35-7.45) ABG pCO2 27 L (35-45) mmHg ABG pO2 72 L (83-108) mmHg ABG HCO3 20 L (21-25) mmol/L Chloride (98-107) mmol/L Carbon Dioxide (22-30) mmol/L BUN (9-20) mg/dL Glucose (74-99) mg/dL POC Glucose (mg/dL) 106 H 124 H (75-99) mg/dL Alkaline Phosphatase (38-126) U/L Total Protein (6.3-8.2) g/dL Albumin (3.5-5.0) g/dL 03/11/20 03/11/20 03/11/20 Range/Units 05:00 05:00 07:03 WBC 20.9 H (3.8-10.6) k/uL RBC 3.04 L (4.30-5.90) m/uL Hgb 9.9 L (13.0-17.5) gm/dL Hct 32.4 L (39.0-53.0) % MCV 106.5 H (80.0-100.0) fL MCHC 30.5 L (31.0-37.0) g/dL RDW 16.2 H (11.5-15.5) % Neutrophils # 18.7 H (1.3-7.7) k/uL Macrocytosis Marked A ABG pH (7.35-7.45) ABG pCO2 (35-45) mmHg ABG pO2 (83-108) mmHg ABG HCO3 (21-25) mmol/L Chloride 115 H (98-107) mmol/L Carbon Dioxide 20 L (22-30) mmol/L BUN 24 H (9-20) mg/dL Glucose 143 H (74-99) mg/dL POC Glucose (mg/dL) 137 H (75-99) mg/dL Alkaline Phosphatase 173 H (38-126) U/L Total Protein 4.9 L (6.3-8.2) g/dL Albumin 1.9 L (3.5-5.0) g/dL 03/11/20 Range/Units 12:13 WBC (3.8-10.6) k/uL RBC (4.30-5.90) m/uL Hgb (13.0-17.5) gm/dL Hct (39.0-53.0) % MCV (80.0-100.0) fL MCHC (31.0-37.0) g/dL RDW (11.5-15.5) % Neutrophils # (1.3-7.7) k/uL Macrocytosis ABG pH (7.35-7.45) ABG pCO2 (35-45) mmHg ABG pO2 (83-108) mmHg ABG HCO3 (21-25) mmol/L Chloride (98-107) mmol/L Carbon Dioxide (22-30) mmol/L BUN (9-20) mg/dL Glucose (74-99) mg/dL POC Glucose (mg/dL) 156 H (75-99) mg/dL Alkaline Phosphatase (38-126) U/L Total Protein (6.3-8.2) g/dL Albumin (3.5-5.0) g/dL Assessment and Plan Assessment: * Patient initially admitted for diverticulitis, status post lower anterior resection, takedown of splenic flexure and partial omentectomy. Hospitalization complicated by alcohol withdrawal, delirium tremens, which overtime improved significantly but had another setback with a cardiac arrest 02/26/2020. Patient again more encephalopathic as compared to last seen, but still improving. * Status post cardiac arrest due to septic shock, required a brief CPR but was intubated. * Status post tracheostomy on 03/06/2020. * History of polysubstance abuse including alcohol, and tobacco. * Acute DVT left lower extremity, now on Xarelto. * Folate deficiency Plan: * Patient continues to have significant toxic metabolic encephalopathy. Patient has now tracheostomy. * EEG showed moderate background slowing consistent with encephalopathy, no epileptiform activity seen. * CT head showed mild generalized atrophy. No acute intracranial process. * Carotid Doppler 03/07/2020 showed no hemodynamic significant stenosis of proximal ICA. Antegrade flow in both vertebral arteries. * 2-D echo from 03/07/2020 showed EF 55-60%. Mild MR. No aortic stenosi * Patient cannot have MRI because of presence of metallic laisha. * Continue folic acid 1 mg daily for folic acid deficiency. * Hemoglobin A1c 4.0 * Continue thiamine and multivitamins. * Ammonia 43. Probably has some component of hepatic encephalopathy. * Please call neurology if any further concerns.
--- NOTE | 2020-03-11 15:58 | US ---
EXAMINATION TYPE: US paracentesis abd w/image DATE OF EXAM: 03/11/2020 COMPARISON: NONE HISTORY: Ascites. PROCEDURE: Maximal barrier technique was utilized. The skin overlying a suitable pocket of fluid was localized with ultrasound and the overlying skin was prepped and draped. Ultrasound was utilized with sterile technique. Lidocaine was used for local anesthesia and a skin inga made with a scalpel. Catheter was advanced under direct ultrasound guidance into a suitable pocket of fluid and approximately 4 liters of serous fluid were removed. Catheter was withdrawn and hemostasis achieved. There is no immediate complication; the patient is discharged in stable condition. IMPRESSION: STATUS POST ULTRASOUND GUIDED PARACENTESIS FOR PALLIATION OF ASCITES. THIS PROCEDURE WA S PERFORMED BY THE UNDERSIGNED.
[2020-03-11 18:31] LABS: Glucose,Whole Blood 98 mg/dL (75-99)
[2020-03-11 19:33] LABS: Appearance,BF Clear; Color,BF Colorless; Nucleated Cells, Body Fluid 22 /uL; RBC, Body Fluid 142 /uL
[2020-03-11 19:36] LABS: Mononuclear WBC,Body Fluid 39 %; Polynuclear WBC,Body Fluid 61 %; Total Cells Counted,Body Fluid 100
[2020-03-11] MEDS: ATORVASTATIN 20 MG TAB OG-TUBE SCH (21:14)
[2020-03-11] MEDS: TAMSULOSIN 0.4 MG CAP.ER.24H PO SCH (21:17)
--- NOTE | 2020-03-11 22:41 | P.PN ---
Progress Note - Text Progress Note Date: 03/11/20 - Chief Complaint Abdominal surgery History of presenting complaint: This is a pleasant 64-year-old patient of . Patient been having complication to his diverticulitis. computed tomography scan on January 08. Showed some possible stricture. Hepatic steatosis. February 06- undergone low anterior resection. Epidural for pain control.patient had elevated d-dimer. Pulmonary embolism felt to be unlikely. CT was suboptimal. VQ scan was intermediate probability. Leg DVT treated with IV heparin. Had some dark stools.also patient had had altered mental status. [place] to be encephalopathy.computed tomography scan of the brain was unremarkable. EGD-no evidence of bleeding. Patient more awake after dose of baclofen cutback. changed over to xarelto.x-ray showing ileus. Patient did start having bowel movements. Repeat computed tomography scan of abdomen showed possible enteritis./Colitis.as abdomen appeared distended. Lemus catheter was placed. No urine retention.-patient become hypotensive. Had a brief cardiac and pulmonary arrest Moved to ICU. Had to be intubated. Drips include norepinephrine, vasopressin, propofol. NG tube to suction.also treated for aspiration pneumonia and abdominal wall cellulitis.ascitic fluid that was tapped was unremarkable.4.5 L of acetic fluid removed. On March 06 underwent tracheostomy.Dophoff tube was placed and then had to be removed because of abdominal distention. Today. [id number]-lm the ventilator. Sinus tachycardia. Does open eyes. Abdomen distended. Pending paracentesis. Edema present. 2 feeding. Review of systems: Patient intubated Active Medications Albuterol/Ipratropium (Ipratropium-Albuterol 3 Ml Neb) 3 ml INHALATION RT-Q4H [facility] Last Admin: 03/11/20 20:17 Dose: 3 ml Documented by: Albuterol/Ipratropium (Ipratropium-Albuterol 3 Ml Neb) 3 ml INHALATION RT-Q2H PRN PRN Reason: Shortness Of Breath Or Wheezing Atorvastatin Calcium (Atorvastatin 20 Mg Tab) 20 mg OG-TUBE HS [facility] Last Admin: 03/11/20 21:14 Dose: 20 mg Documented by: Chlorhexidine Gluconate (Chlorhexidine Gluconate 15 Ml Cup) 15 ml MUCOUS MEM BID [facility] Last Admin: 03/11/20 21:14 Dose: 15 ml Documented by: Enoxaparin Sodium (Enoxaparin 60 Mg/0.6 Ml Syringe) 60 mg SQ BID [facility] Last Admin: 03/11/20 21:15 Dose: 60 mg Documented by: Ferrous Sulfate (Ferrous Sulfate Oral Elixir 300 Mg/5 Ml Cup) 300 mg PO BID- W/MEALS [facility] Last Admin: 03/11/20 18:30 Dose: 300 mg Documented by: Fluconazole (Fluconazole 100 Mg Tab) 100 mg PO DAILY [facility] Folic Acid (Folic Acid 1 Mg Tab) 1 mg OG-TUBE DAILY [facility] Last Admin: 03/11/20 10:29 Dose: 1 mg Documented by: Hydrocortisone (Hydrocortisone 20 Mg Tab) 20 mg PO BID [facility] Last Admin: 03/11/20 22:08 Dose: 20 mg Documented by: Insulin Aspart (Insulin Aspart (Novolog) 100 Unit/Ml Vial) 0 unit SQ Q6H [facility]; Protocol Last Admin: 03/11/20 18:30 Dose: Not Given Documented by: Metoclopramide HCl (Metoclopramide 5 Mg/Ml 2 Ml Vial) 10 mg IVP Q6HR PRN PRN Reason: Nausea and Vomiting Miscellaneous Information (Magnesium Replacement Protocol 1 Each Misc) 1 each MISCELLANE DAILY PRN; Protocol PRN Reason: Per Protocol Miscellaneous Information (Potassium Replacement Protocol 1 Each Misc) 1 each MISCELLANE DAILY PRN; Protocol PRN Reason: Per Protocol Ondansetron HCl (Ondansetron 4 Mg/2 Ml Vial) 4 mg IVP Q8HR PRN PRN Reason: Nausea And Vomiting Pantoprazole Sodium (Pantoprazole 40 Mg/10 Ml Vial) 40 mg IVP BID [facility] Last Admin: 03/11/20 21:14 Dose: 40 mg Documented by: Sodium Chloride (Sodium Chloride 0.9% Flush 10 Ml Syringe) 10 ml IV Q4HR PRN PRN Reason: PICC Line Sodium Chloride (Sodium Chloride 0.9% Flush 10 Ml Syringe) 10 ml IV WEEKLY [facility] Sodium Chloride (Sodium Chloride 0.9% Flush 10 Ml Syringe) 20 ml IV Q4HR PRN PRN Reason: PICC Line Tamsulosin HCl (Tamsulosin 0.4 Mg Cap.Er.24h) 0.4 mg PO [facility] Last Admin: 03/11/20 21:17 Dose: Not Given Documented by: Thiamine HCl (Thiamine 100 Mg/Ml 2 Ml Vial) 100 mg IVP DAILY [facility] Last Admin: 03/11/20 10:29 Dose: 100 mg Documented by: Physical examination: VITAL SIGNS: 98.2, 105, 20, 109/61, 95% on trach GENERAL: Laying in bed, intubated. Tracheostomy tube, edema EYES: Pupils equal. Conjunctiva normal. HEENT:, Dry oral cavity NECK: JVD unable to assess; masses not palpable. Tracheostomy tube HEART: First and second heart sounds are normal; some edema LUNGS: Respiratory rate increased; decreased breath sounds. ABDOMEN: Soft, distended , nontender, , area of subcutaneous swelling around the incision site. PSYCH: Unable to assess NEUROLOGICAL: Does respond to pain. Occasional spontaneous eye opening. Pupils equal. INVESTIGATIONS, reviewed in the clinical context: March 11: White count 20.9 hemoglobin 9.9 platelets 393 potassium 4.2 crit 0.77 albumin 1.9 March 10: White count 22.6 hemoglobin 9.7 platelets 366potassium 4.1 creatinine 0.67 March 09: White count 18.2, hemoglobin 9.5, platelets 369 sodium 147 potassium 4.2 creatinine 0.77 March 08: White count 98.1 hemoglobin 19.3 platelets 329 sodium 148 potassium 3.2 right 126 creatinine 0.7 to albumin 1.9 March 07: White count 24 hemoglobin 9.8 platelets 366 potassium 3.7 creatinine 0.73 White count 16.4 hemoglobin 8.8 platelets 276 potassium 3.5 creatinine 0.71 Previous testing EEG shows evidence of encephalopathy Computed tomography scan of the brain-mild atrophy 2-D echocardiogram-EF 55-60% VQ scan-intermediate probability Chest CTA-suboptimal study. Doppler ultrasound-positive for thrombus within the distal popliteal vein White count 10.2 hemoglobin 14.2 potassium 3.6 B12 some 08 Previously AST 129 ALT 50 Computed tomography scan of the abdomen from January 08-possible colitis, diverticulitis, some esophagitis, hepatic steatosis Abdominal x-ray film personally reviewed by me shows ileus Sputum growing [place] Assessment: -Acute hypoxic respiratory failure, requiring ventilator support-slow to respond -Septic shock-currently off levo fed -Status post low anterior resection, for diverticulitis complication -Postop ileus-recovered -Chronic nicotine dependence patient cigarette smoker -Clinical emphysema, asymptomatic -Suspect alcoholic hepatitis -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 Repeat paracentesis. 4.5 L.-repeat paracentesis is 4.4 L.. -Mild hyponatremia -Hypernatremia -Macrocytic anemia. -Acute DVT in the left distal popliteal vein -Acute alcohol withdrawal syndrome with improvement -Right lower lobe pneumonia -Mild protein calorie malnutrition from decreased oral intake -Tracheostomy tube placed on March 06 -Metabolic encephalopathy-no improvement -Dobbhoff tube placed and removed Plan: ICU-prognosis remains poor. NG tube feeding.. Pending paracentesis today. Continue other supportive care. Thank you Dr. Lee
[2020-03-11] MEDS: FLUCONAZOLE 100 MG TAB PO SCH (22:57)
--- NOTE | 2020-03-11 23:04 | PN ---
PROGRESS NOTE DATE OF SERVICE: 03/11/2020 REASON FOR FOLLOWUP: Leukocytosis and possible oropharyngeal candidiasis. INTERVAL HISTORY: The patient is currently afebrile. The patient did have an episode of aspiration this morning. Subsequently the patient has been suctioned out. The patient remains intubated on the vent. He is hemodynamically stable, not on any pressor support. He is status post paracentesis with removal of 4 L of ascitic fluid, and no diarrhea reported by the nursing staff. PHYSICAL EXAMINATION: Blood pressure 107/56, pulse of 112, temperature 96.7. He is 94% on 35% FiO2. General description is a middle-aged male lying in bed in no distress. RESPIRATORY SYSTEM: Unlabored breathing with decreased breath sounds at the base. No wheeze. HEART: S1, S2. Regular rate and rhythm. ABDOMEN: Soft. No tenderness. LABS: Hemoglobin is 9.3, white count 20.9, BUN 24, creatinine 0.77. DIAGNOSTIC IMPRESSION AND PLAN: Patient with elevated white count which is likely multifactorial with a possible component of oropharyngeal candidiasis. The patient's white count did respond to Diflucan; to continue. and monitor his white count and clinical course closely. I have also requested ascitic fluid diagnosis, though overall the fluid did not look infected, and he has recently completed a long course of antibiotic therapy. Hence will hold on any further antibiotic at this point. Continue with supportive care. [id number] / IJN: [id number] /
[2020-03-12] MEDS: INSULIN ASPART (NovoLOG) 100 UNIT/ML VIAL SQ SCH ×4 (00:05→17:26)
[2020-03-12 00:14] LABS: Glucose,Whole Blood 112 mg/dL (75-99)
[2020-03-12 01:12] LABS: Total Protein, Body Fluid 550 mg/dL
[2020-03-12] MEDS: IPRATROPIUM-ALBUTEROL 3 ML NEB INHALATION SCH ×6 (03:12→23:39)
[2020-03-12 04:42] LABS: ABG Base Excess -3.3 mmol/L; ABG HCO3 20 mmol/L (21-25); ABG Oxygen Saturation 96.6 % (94-97); ABG PCO2 27 mmHg (35-45); ABG PH 7.48 (7.35-7.45); ABG PO2 76 mmHg (83-108); ABG TCO2 21 mmol/L (19-24)
[2020-03-12 04:47] LABS: Anisocytosis Slight; Basophils % (A) 0 %; Eosinophils % (A) 0 %; HGB 9.3 gm/dL (13.0-17.5); Hypochromasia Marked; Lymphocytes # (A) 1.1 k/uL (1.0-4.8); Lymphocytes % (A) 6 %; MCH 31.6 pg (25.0-35.0); MCV 105.1 fL (80.0-100.0); Macrocytosis Moderate; Mean Platelet Volume 10.2; Monocytes # (A) 0.5 k/uL (0-1.0); Monocytes % (A) 3 %; Neutrophils % (A) 91 %; Platelet Count 335 k/uL (150-450); Poikilocytosis Slight; RBC 2.95 m/uL (4.30-5.90); RDW 16.3 % (11.5-15.5); WBC 18.8 k/uL (3.8-10.6)
[2020-03-12 05:12] LABS: ALT 37 U/L (4-49); AST 37 U/L (17-59); African American GFR (CKD) >90 (>60 ml/min/1.73 sqM); Albumin 1.8 g/dL (3.5-5.0); Alkaline Phosphatase 167 U/L (38-126); Anion Gap 2 mmol/L; Blood Urea Nitrogen 27 mg/dL (9-20); Calcium 8.1 mg/dL (8.4-10.2); Carbon Dioxide 20 mmol/L (22-30); Chloride 113 mmol/L (98-107); Glucose 109 mg/dL (74-99); Magnesium 2.2 mg/dL (1.6-2.3); Non-African American GFR(CKD) >90 (>60 ml/min/1.73 sqM); Phosphorus 4.3 mg/dL (2.5-4.5); Potassium 4.4 mmol/L (3.5-5.1); Sodium 135 mmol/L (137-145); Total Bilirubin 0.5 mg/dL (0.2-1.3); Total Protein 4.6 g/dL (6.3-8.2)
--- NOTE | 2020-03-12 07:15 | P.PN ---
Subjective Progress Note Date: 03/12/20 On 03/10/2020 and seeing this patient for a follow-up in the intensive care unit. The patient was admitted on 02/07/2020. The patient is postop AP resection for strictures of diverticular disease. The patient developed clinical deterioration with abdominal sepsis. The patient also had a cardiac pulmonary arrest that was brief and the patient was intubated and placed on a mechanical ventilator and the patient was transferred to the intensive care unit. The acute cardiopulmonary arrest that occurred on 02/26/2020 related to septic shock and the patient required a brief CPR and the patient required intubation and fluid resuscitation and pressors. The patient also developed ascites. Due to his prolonged mechanical ventilation, the patient ultimately had a tracheostomy tube insertion on 03/06/2020. He underwent paracentesis with removal of 8 L of abdominal fluid from the peritoneal cavity on 02/27/2020. And following that a repeat paracentesis was done on 03/05/2026 liters of fluid. Th e patient currently is on a mechanical ventilator and the patient is being ventilated through his tracheostomy tube. The patient is an assist-control mode of ventilation at the rate of 10 with tidal volume of 100 and FiO2 of 35% with a PEEP of 5. The patient is receiving IV fluids to D5 water at the rate of 75 mL an hour. The Dobbhoff catheter was removed and the patient was given an NG was attempted and was not insertable. As such, TPN was recommended. The patient had developed some abdominal distention earlier. Last paracentesis was done yesterday and a total of 4.4 L of ascitic fluid was removed from the abdomen. The patient otherwise doing reasonably well. The patient had also diagnosed having a left lower extremity DVT treated with SC Lovenox. The patient also is currently on TPN. The patient is on stress dose hydrocortisone 50 mg IV every 12 hours, Lovenox 60 mg subcu twice a day and oral vancomycin 125 mg by mouth 4 times a day for some component of enteritis. During the course of the treatment the patient was treated for aspiration pneumonia and abdominal wall cellulitis. The patient had developed diarrhea due to antibiotic exposure and the patient completed the 2 week course of Zosyn and the patient is currently on oral vancomycin. Stool for C. diff has been negative. ID is on the case. on today's evaluation of 03/10/2020, the patient was switched a CPAP at a pressure of 5 pressure support and a PEEP of 5 with an FiO2 of 30%. He is able to generate tidal volumes of about 700. the chest x-ray showing a small left- sided pleural effusion. NG tube is in a good location. The patient has a PICC line right upper extremity. There is a small left-sided pleural effusion for now. The patient has a Bivona tracheostomy tube #8. He is calm and comfortable. No significant orotracheal secretions. Lemus catheter in place. The patient has a PICC line in the right upper extremity and currently is receiving TPN for nutritional support. He also has an NG tube in place. He is not receiving any enteral feeding at this point in time. He does have diffuse anasarca. Abdominal wound is dry clean and intact. Yvonne are still in place. No active drainage. He does have a fecal management system in place and output is in order of minimal probably a few cc on an hourly basis. on today's evaluation of 03/11/2020, the patient is still on CPAP and he was on CPAP pressure support mode overnight at a pressure of 5 cm of water. He is generating tidal volume of 380-400. No tachypnea. No respiratory distress. His blood gases from today showed a pH of 7.48 with a pCO2 of 27 and O2 of 72. The chest x-ray from this morning shows that the patient has a adequate positioning of the tracheostomy tube. Lungs are well expanded. There is no evidence of any pneumothorax. There is a small left-sided pleural effusion. The patient has a PICC line in the right upper extremity. NG tube is in a good location. TPN was discontinued yesterday and the patient was restarted back on enteral feeding and currently is taking right femoral high protein at the rate of 35 mL an hour. He is arousable. He is awake. He follows simple commands. Is extremely debilitated and weak. The fecal management system was discontinued as the patient was not having any further bouts of diarrhea. His body weight is 67 kg. The patient is still on oral vancomycin. This will be discussed with IV. His white cell count is at 20.9. on 03/12/2020, the patient remains on a pressure support mode with a pressure support of 5 and a PEEP of 5. He is resting comfortably on a mechanical ventilator. His chest x-ray from today shows development of a left-sided pleural effusion/consolidation. He has a PICC line in his left upper extremity. No significant orotracheal secretions. While on trach collar, it was suspected that the patient has aspirated. Based on that, the patient was placed back on the pressure support mode and the patient is currently off that she'll feeds. . He has no diarrhea for now. His white cell count is 18.8. Oral vancomycin was discontinued yesterday.the blood gases from today showed a pH of 7.48 with a pCO2 of 27 and pO2 of 76. Renal function is stable. The patient is arousable. He is profoundly weak. He has diffuse anasarca. Objective - Vital Signs Vital signs: Vital Signs Temp 96.9 F L 03/12/20 04:00 Pulse 105 H 03/12/20 07:00 Resp 14 03/12/20 07:00 BP 94/59 03/11/20 15:00 Pulse Ox 97 03/12/20 07:00 Intake & Output 03/11/20 03/12/20 03/12/20 18:59 06:59 18:59 Intake Total 556 156 23 Output Total 4360 255 12 Balance -3804 -99 11 Weight 66.3 kg 61.1 kg Intake: IV 156 156 23 Dextrose 5% in Water 1, 120 120 20 000 ml @ 75 mls/hr IV . [id number] JOANA Rx#:[id number] Pressure bag 36 36 3 Intake, IV Titration 100 Amount Magnesium Sulfate-D5w Pmx 100 1 gm In Dextrose/Water 1 100ml.bag @ 100 mls/hr IVPB Q1H JOANA Rx#: [id number] Tube Feeding 240 Other 60 Output: Drainage 4000 Right Lower Lateral 4000 Abdomen Paracentesis site Urine 360 255 12 Other: Voiding Method Indwelling Catheter Indwelling Catheter ABP, PAP, CO, CI - Last Documented Arterial Blood Pressure 106/55 - Exam GENERAL EXAM: Intubated sedated 64-year-old white male, trached to the mechanical ventilator on assist-control mode of ventilation, in no acute distress, currently on a pressure support of 5 and a PEEP of 5 with an FiO2 of 35%. HEAD: Normocephalic/atraumatic. EYES: Normal reaction of pupils, equal size. Conjunctiva pink, sclera white. NOSE: Clear with pink turbinates. THROAT: No erythema or exudates. NECK: No masses, no JVD, no thyroid enlargement, no adenopathy. Midline tracheostomy in place, patient connected to the ventilator with assist control mode of ventilation CHEST: No chest wall deformity. Symmetrical expansion. LUNGS: Equal air entry with no crackles, wheeze, rhonchi or dullness. CVS: Regular rate and rhythm, normal S1 and S2, no gallops, no murmurs, no rubs ABDOMEN: Less distended and firm on today's exam compared to last week, mild tenderness to palpation, rigidity, and abdominal incision is clean dry and intact, well approximated and healed, yvonne are in place, intact EXTREMITIES: No clubbing, 2+ upper and lower extremity edema, patient has a weeping edema with the drainage from the catheter insertion sites no cyanosis, 2+ pulses and upper and lower extremities. Picc line is in the RUE, diffuse anasarca in all 4 extremities mainly the lower extremities and in the thighs MUSCULOSKELETAL: Muscle strength and tone normal. SPINE: No scoliosis or deformity SKIN: No rashes CENTRAL NERVOUS SYSTEM: awake and the patient has a tone is normal in all 4 extremities. - Labs CBC & Chem 7: 03/12/20 04:10 03/12/20 04:10 Labs: Abnormal Lab Results - Last 24 Hours (Table) 03/11/20 03/12/20 03/12/20 Range/Units 12:13 00:03 04:10 WBC (3.8-10.6) k/uL RBC (4.30-5.90) m/uL Hgb (13.0-17.5) gm/dL Hct (39.0-53.0) % MCV (80.0-100.0) fL MCHC (31.0-37.0) g/dL RDW (11.5-15.5) % Neutrophils # (1.3-7.7) k/uL ABG pH (7.35-7.45) ABG pCO2 (35-45) mmHg ABG pO2 (83-108) mmHg ABG HCO3 (21-25) mmol/L Sodium 135 L (137-145) mmol/L Chloride 113 H (98-107) mmol/L Carbon Dioxide 20 L (22-30) mmol/L BUN 27 H (9-20) mg/dL Glucose 109 H (74-99) mg/dL POC Glucose (mg/dL) 156 H 112 H (75-99) mg/dL Calcium 8.1 L (8.4-10.2) mg/dL Alkaline Phosphatase 167 H (38-126) U/L Total Protein 4.6 L (6.3-8.2) g/dL Albumin 1.8 L (3.5-5.0) g/dL 03/12/20 03/12/20 Range/Units 04:10 04:36 WBC 18.8 H (3.8-10.6) k/uL RBC 2.95 L (4.30-5.90) m/uL Hgb 9.3 L (13.0-17.5) gm/dL Hct 31.0 L (39.0-53.0) % MCV 105.1 H (80.0-100.0) fL MCHC 30.0 L (31.0-37.0) g/dL RDW 16.3 H (11.5-15.5) % Neutrophils # 17.0 H (1.3-7.7) k/uL ABG pH 7.48 H (7.35-7.45) ABG pCO2 27 L (35-45) mmHg ABG pO2 76 L (83-108) mmHg ABG HCO3 20 L (21-25) mmol/L Sodium (137-145) mmol/L Chloride (98-107) mmol/L Carbon Dioxide (22-30) mmol/L BUN (9-20) mg/dL Glucose (74-99) mg/dL POC Glucose (mg/dL) (75-99) mg/dL Calcium (8.4-10.2) mg/dL Alkaline Phosphatase (38-126) U/L Total Protein (6.3-8.2) g/dL Albumin (3.5-5.0) g/dL Assessment and Plan Plan: #1. Acute hypoxic respiratory failure related to septic shock, with a possibility of abdominal sepsis, although cultures from the paracentesis fluid have been negative. On 03/07/2020 patient remains trached to the mechanical ventilator on assist control mode of ventilation. Patient had a tracheostomy on 03/06/2020. The patient's most recent chest x-ray shows a small left-sided pleural effusion. Tracheostomy tube in place and the patient is currently on a pressure support of 5 and a PEEP of 5 with spontaneous breathing mode and is able to generate adequate tidal volumes. chest x-ray shows a small left sided pleural effusion/consolidation. We will watch for any signs of aspiration. The patient will be kept on a pressure support mode and trach collar trials will not be done. #2. Acute cardiac pulmonary arrest on 02/26/2020 related to septic shock, patient required a brief CPR, was intubated and fluid resuscitated, and she is currently off pressors and he is hemodynamicaly stable #3. Increased bibasilar opacities and a chest x-ray shows a small left-sided pleural effusion #4. Abdominal pain and distention, improved post-paracentesis #5. Massive ascites, status post high-volume paracentesis, on 02/27/2020 with removal of 8 L of ascitic fluid, and repeat paracentesis on 2019 would re moval of 6 L of fluid and then 4.5 liters on 03/09/2020, slight abdominal distention today's evaluation #6. Non-anion gap metabolic acidosis related to septic shock, and has received IV fluids and bicarbonate infusion, resolved #7. Volume contraction alkalosis, secondary to paracentesis and diuretic therapy #8. Elevated d-dimer, nonspecific, doubt possibility of pulmonary embolism. CTA chest was suboptimal but did not reveal any evidence of central pulmonary embolism, VQ scan showed intermediate probability for pulmonary embolism, patient was found to have a new left leg DVT, Currently on Lovenox #9. Diverticulitis, status post lower anterior resection, takedown of splenic flexure and partial omentectomy #10. Alcohol abuse with alcohol withdrawal #11. Recent history dark black stools the possibility of upper GI bleeding, negative EGD #12. Altered mental status, related to metabolic encephalopathy, neurology is following. Off sedation and the patient has a component of a metabolic encephalopathy, sleepy, and unable to follow commands, withdraws from pain, and he seems to be more alert. #13. History of diverticular disease #14. History of EtOH abuse #15 hyperchloremic hypernatremia, sodium level is down to 135 #16 chronic anemia, multifactorial, hemoglobin stable at 9.3 #17 leukocytosis, currently on 18 Plan oral vancomycin has been discontinued continue enteral feeding, restart tube feeds and was for an aspiration Physical pressure support mode of ventilation for now IV fluids will be cut down to 10 mL an hour. The patient's sodium level has normalized. Lovenox 60 mg subcu twice a day Physical therapy we'll start the patient on Lasix 40 mg IV every 24 hours regarding his anasarca select specialty, evaluation was done and more than 30 minutes. Critical care evaluation. Time with Patient: Greater than 30
--- NOTE | 2020-03-12 08:30 | XR ---
EXAMINATION TYPE: XR chest 1V portable DATE OF EXAM: 03/12/2020 COMPARISON: 03/11/2020 HISTORY: Difficulty breathing TECHNIQUE: Single frontal view of the chest is obtained. FINDINGS: Central line, NG tube and tracheostomy tube stable. Chronic rib deformities are noted. No pneumothorax. Left-sided consolidation and pleural effusion seen. Underlying COPD noted. Atherosclero tic change aorta. Heart size normal. IMPRESSION: 1. COPD with left lower lobe infiltrate and small effusion.
[2020-03-12] MEDS: CHLORHEXIDINE GLUCONATE 15 ML CUP MUCOUS MEM SCH ×2 (10:18→21:21)
[2020-03-12] MEDS: FERROUS SULFATE ORAL ELIXIR 300 MG/5 ML CUP PO SCH ×2 (10:18→17:27)
[2020-03-12] MEDS: ENOXAPARIN 60 MG/0.6 ML SYRINGE SQ SCH ×2 (10:18→21:20)
[2020-03-12] MEDS: THIAMINE 100 MG/ML 2 ML VIAL IVP SCH (10:19)
[2020-03-12] MEDS: PANTOPRAZOLE 40 MG/10 ML VIAL IVP SCH ×2 (10:19→21:21)
[2020-03-12] MEDS: FUROSEMIDE 10 MG/ML 4 ML VIAL IV SCH (10:19)
[2020-03-12] MEDS: FOLIC ACID 1 MG TAB OG-TUBE SCH (10:19)
[2020-03-12] MEDS: FLUCONAZOLE 100 MG TAB PO SCH (10:19)
[2020-03-12] MEDS: HYDROCORTISONE 20 MG TAB PO SCH ×2 (10:36→21:21)
[2020-03-12 12:06] LABS: Glucose,Whole Blood 102 mg/dL (75-99)
--- NOTE | 2020-03-12 14:10 | P.PN ---
Subjective Progress Note Date: 03/12/20 CHIEF COMPLAINT: Diverticulitis HISTORY OF PRESENT ILLNESS: Patient is status post lower anterior resection, takedown of splenic flexure and partial omentectomy on 02/07/2020. The morning of 02/26/20 patient was transferred to the ICU after STEVE KUMAR was called. Patient had become hypothermic and hypotensive. Patient become unresponsive they lost pulse and CPR was initiated. Patient did require to be intubated. Patient seen and examined with Dr. Lee. Patient remains in the ICU . Patient is status post tracheostomy placement. PEG tube was unable to be placed because EGD had to be terminated because the esophagus could not be intubated due to significant swelling at the hypopharynx. Patient is currently on CPAP. Patient had 4 L removed from his paracentesis yesterday. WBC has dropped from 20.9-18.8 he is afebrile. Critical care nurse practitioners planning on inserting a Dobbhoff later today to continue tube feedings. Critical care is started Lasix IV regarding patient's anasarca Chest x-ray COPD with left lower lobe infiltrate and small effusion PHYSICAL EXAM: VITAL SIGNS: Reviewed. GENERAL: Well-developed in no acute distress. HEENT: No sclera icterus. Extraocular movements grossly intact. Moist buccal mucosa. Head is atraumatic, normocephalic. Trach site clean dry and intact ABDOMEN: Soft and distended Incision clean dry and intact. NEUROLOGIC: Patient able to open eyes and is awake ASSESSMENT: 1. Cardiopulmonary arrest and acute hypoxic respiratory failure secondary to septic shock. 2. Diverticulitis status post lower anterior resection, takedown of splenic flexure and partial omentectomy on 02/07/2020 3. Patient's abdominal distention likely related to ileus, ascites from his liver cirrhosis and possible hernia. 4. Alcohol abuse with alcohol withdrawal 5. New left leg DVT during this admission 6. Possible ileus 7. Black stools. Resolved. No evidence of upper GI bleed on EGD. EGD was normal 8. Altered mental status likely due to cardiac arrest and superimposed toxic metabolic encephalopathy. Followed by neurology 9. Possible right lower lobe pneumonia 10. Severe protein calorie malnutrition 11. Liver cirrhosis with abdominal ascites status post paracentesis 2 during this admission 12. Hypokalemia improved 13. Patient status post tracheostomy for acute hypoxic respiratory failure PLAN: -Continue tube feedings through NG tube -Continue supportive care Physician [employer] Engineer note has been reviewed by physician. Signing provider agrees with the documented findings, assessment, and plan of care. Objective - Vital Signs Vital signs: Vital Signs Temp 98.5 F 03/12/20 12:00 Pulse 114 H 03/12/20 14:00 Resp 12 03/12/20 14:00 BP 94/59 03/11/20 15:00 Pulse Ox 92 L 03/12/20 14:00 Intake & Output 03/11/20 03/12/20 03/12/20 18:59 06:59 18:59 Intake Total 556 156 114 Output Total 4360 255 822 Balance -3804 -99 -708 Weight 66.3 kg 61.1 kg Intake: IV 156 156 114 Dextrose 5% in Water 1, 120 120 90 000 ml @ 75 mls/hr IV . [id number] JOANA Rx#:[id number] Pressure bag 36 36 24 Intake, IV Titration 100 Amount Magnesium Sulfate-D5w Pmx 100 1 gm In Dextrose/Water 1 100ml.bag @ 100 mls/hr IVPB Q1H JOANA Rx#: [id number] Tube Feeding 240 Other 60 Output: Drainage 4000 Right Lower Lateral 4000 Abdomen Paracentesis site Urine 360 255 822 Other: Voiding Method Indwelling Catheter Indwelling Catheter Indwelling Catheter ABP, PAP, CO, CI - Last Documented Arterial Blood Pressure 101/53 - Labs CBC & Chem 7: 03/12/20 04:10 03/12/20 04:10 Labs: Abnormal Lab Results - Last 24 Hours (Table) 03/12/20 03/12/20 03/12/20 Range/Units 00:03 04:10 04:10 WBC 18.8 H (3.8-10.6) k/uL RBC 2.95 L (4.30-5.90) m/uL Hgb 9.3 L (13.0-17.5) gm/dL Hct 31.0 L (39.0-53.0) % MCV 105.1 H (80.0-100.0) fL MCHC 30.0 L (31.0-37.0) g/dL RDW 16.3 H (11.5-15.5) % Neutrophils # 17.0 H (1.3-7.7) k/uL ABG pH (7.35-7.45) ABG pCO2 (35-45) mmHg ABG pO2 (83-108) mmHg ABG HCO3 (21-25) mmol/L Sodium 135 L (137-145) mmol/L Chloride 113 H (98-107) mmol/L Carbon Dioxide 20 L (22-30) mmol/L BUN 27 H (9-20) mg/dL Glucose 109 H (74-99) mg/dL POC Glucose (mg/dL) 112 H (75-99) mg/dL Calcium 8.1 L (8.4-10.2) mg/dL Alkaline Phosphatase 167 H (38-126) U/L Total Protein 4.6 L (6.3-8.2) g/dL Albumin 1.8 L (3.5-5.0) g/dL 03/12/20 03/12/20 Range/Units 04:36 12:04 WBC (3.8-10.6) k/uL RBC (4.30-5.90) m/uL Hgb (13.0-17.5) gm/dL Hct (39.0-53.0) % MCV (80.0-100.0) fL MCHC (31.0-37.0) g/dL RDW (11.5-15.5) % Neutrophils # (1.3-7.7) k/uL ABG pH 7.48 H (7.35-7.45) ABG pCO2 27 L (35-45) mmHg ABG pO2 76 L (83-108) mmHg ABG HCO3 20 L (21-25) mmol/L Sodium (137-145) mmol/L Chloride (98-107) mmol/L Carbon Dioxide (22-30) mmol/L BUN (9-20) mg/dL Glucose (74-99) mg/dL POC Glucose (mg/dL) 102 H (75-99) mg/dL Calcium (8.4-10.2) mg/dL Alkaline Phosphatase (38-126) U/L Total Protein (6.3-8.2) g/dL Albumin (3.5-5.0) g/dL
[2020-03-12 17:24] LABS: Glucose,Whole Blood 86 mg/dL (75-99)
--- NOTE | 2020-03-12 18:51 | P.PN ---
Subjective Progress Note Date: 03/12/20 03/12/2020: No change. Continues to be significantly encephalopathy. Patient has tracheostomy. 03/11/2020: Patient was seen for a follow-up. Patient was last seen on 02/22/2020. Patient was doing remarkably better. Patient apparently had a cardiac arrest on 02/26/2020. His encephalopathy again got worse. Patient had undergone track and pack placement. Patient at present is laying in the bed, appears somewhat and respiratory distress, has tracheostomy in place. 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 He previously had admitted to drinking heavily. Patient has smoked 1-1/2 pack per day for 30 years. Objective - Vital Signs Vital signs: Vital Signs Temp 98.1 F 03/12/20 16:00 Pulse 118 H 03/12/20 18:00 Resp 12 03/12/20 18:00 BP 94/59 03/11/20 15:00 Pulse Ox 92 L 03/12/20 18:00 Intake & Output 03/11/20 03/12/20 03/12/20 18:59 06:59 18:59 Intake Total 556 156 186 Output Total 4360 255 1112 Balance -3804 -99 -926 Weight 66.3 kg 61.1 kg Intake: IV 156 156 166 Dextrose 5% in Water 1, 120 120 130 000 ml @ 75 mls/hr IV . [id number] JOANA Rx#:[id number] Pressure bag 36 36 36 Intake, IV Titration 100 Amount Magnesium Sulfate-D5w Pmx 100 1 gm In Dextrose/Water 1 100ml.bag @ 100 mls/hr IVPB Q1H JOANA Rx#: [id number] Tube Feeding 240 20 Other 60 Output: Drainage 4000 Right Lower Lateral 4000 Abdomen Paracentesis site Urine 663 051 6390 Other: Voiding Method Indwelling Catheter Indwelling Catheter Indwelling Catheter ABP, PAP, CO, CI - Last Documented Arterial Blood Pressure 101/53 - Exam Patient is laying in the bed. Patient appears obviously encephalopathic, but does make eye contact, follows very minimal directions. Patient does have slow mentation, starry eyes at times. Pupils are round and reacting. Extraocular muscles are intact, face is symmetric. Patient slightly withdraws to painful stimuli on either side. Patient responds by wiggling of his toes and feet to plantar solution. Patient has peripheral edema, abdominal distention. - Labs CBC & Chem 7: 03/12/20 04:10 03/12/20 04:10 Labs: Abnormal Lab Results - Last 24 Hours (Table) 03/12/20 03/12/20 03/12/20 Range/Units 00:03 04:10 04:10 WBC 18.8 H (3.8-10.6) k/uL RBC 2.95 L (4.30-5.90) m/uL Hgb 9.3 L (13.0-17.5) gm/dL Hct 31.0 L (39.0-53.0) % MCV 105.1 H (80.0-100.0) fL MCHC 30.0 L (31.0-37.0) g/dL RDW 16.3 H (11.5-15.5) % Neutrophils # 17.0 H (1.3-7.7) k/uL ABG pH (7.35-7.45) ABG pCO2 (35-45) mmHg ABG pO2 (83-108) mmHg ABG HCO3 (21-25) mmol/L Sodium 135 L (137-145) mmol/L Chloride 113 H (98-107) mmol/L Carbon Dioxide 20 L (22-30) mmol/L BUN 27 H (9-20) mg/dL Glucose 109 H (74-99) mg/dL POC Glucose (mg/dL) 112 H (75-99) mg/dL Calcium 8.1 L (8.4-10.2) mg/dL Alkaline Phosphatase 167 H (38-126) U/L Total Protein 4.6 L (6.3-8.2) g/dL Albumin 1.8 L (3.5-5.0) g/dL 03/12/20 03/12/20 Range/Units 04:36 12:04 WBC (3.8-10.6) k/uL RBC (4.30-5.90) m/uL Hgb (13.0-17.5) gm/dL Hct (39.0-53.0) % MCV (80.0-100.0) fL MCHC (31.0-37.0) g/dL RDW (11.5-15.5) % Neutrophils # (1.3-7.7) k/uL ABG pH 7.48 H (7.35-7.45) ABG pCO2 27 L (35-45) mmHg ABG pO2 76 L (83-108) mmHg ABG HCO3 20 L (21-25) mmol/L Sodium (137-145) mmol/L Chloride (98-107) mmol/L Carbon Dioxide (22-30) mmol/L BUN (9-20) mg/dL Glucose (74-99) mg/dL POC Glucose (mg/dL) 102 H (75-99) mg/dL Calcium (8.4-10.2) mg/dL Alkaline Phosphatase (38-126) U/L Total Protein (6.3-8.2) g/dL Albumin (3.5-5.0) g/dL Assessment and Plan Assessment: * Patient initially admitted for diverticulitis, status post lower anterior resection, takedown of splenic flexure and partial omentectomy. Hospitalizati on complicated by alcohol withdrawal, delirium tremens, which overtime improved significantly but had another setback with a cardiac arrest 02/26/2020. Patient again more encephalopathic as compared to last seen, but still improving. * Status post cardiac arrest due to septic shock, required a brief CPR but was intubated. * Status post tracheostomy on 03/06/2020. * History of polysubstance abuse including alcohol, and tobacco. * Acute DVT left lower extremity, now on Xarelto. * Folate deficiency Plan: * Patient continues to have significant toxic metabolic encephalopathy. Patient has now tracheostomy. * EEG showed moderate background slowing consistent with encephalopathy, no epileptiform activity seen. * CT head showed mild generalized atrophy. No acute intracranial process. * Carotid Doppler 03/07/2020 showed no hemodynamic significant stenosis of proximal ICA. Antegrade flow in both vertebral arteries. * 2-D echo from 03/07/2020 showed EF 55-60%. Mild MR. No aortic stenosi * Patient cannot have MRI because of presence of metallic laisha. * Continue folic acid 1 mg daily for folic acid deficiency. * Hemoglobin A1c 4.0 * Continue thiamine and multivitamins. * Ammonia 43. Probably has some component of hepatic encephalopathy. * Neurology will sign off. Please call neurology if any further concerns.
[2020-03-12] MEDS: TAMSULOSIN 0.4 MG CAP.ER.24H PO SCH (21:19)
[2020-03-12] MEDS: ATORVASTATIN 20 MG TAB OG-TUBE SCH (21:21)
--- NOTE | 2020-03-12 22:15 | P.PN ---
Progress Note - Text Progress Note Date: 03/12/20 - Chief Complaint Abdominal surgery History of presenting complaint: This is a pleasant 64-year-old patient of . Patient been having complication to his diverticulitis. computed tomography scan on January 08. Showed some possible stricture. Hepatic steatosis. February 06- undergone low anterior resection. Epidural for pain control.patient had elevated d-dimer. Pulmonary embolism felt to be unlikely. CT was suboptimal. VQ scan was intermediate probability. Leg DVT treated with IV heparin. Had some dark stools.also patient had had altered mental status. [place] to be encephalopathy.computed tomography scan of the brain was unremarkable. EGD-no evidence of bleeding. Patient more awake after dose of baclofen cutback. changed over to xarelto.x-ray showing ileus. Patient did start having bowel movements. Repeat computed tomography scan of abdomen showed possible enteritis./Colitis.as abdomen appeared distended. Lemus catheter was placed. No urine retention.-patient become hypotensive. Had a brief cardiac and pulmonary arrest Moved to ICU. Had to be intubated. Drips include norepinephrine, vasopressin, propofol. NG tube to suction.also treated for aspiration pneumonia and abdominal wall cellulitis.ascitic fluid that was tapped was unremarkable.4.5 L of acetic fluid removed. On March 06 underwent tracheostomy.Dophoff tube was placed and then had to be removed because of abdominal distention. Today. PCM-[id number] with a 4 L of paracentesis was done. FiO2 35 and a PEEP of 5 on ventilator. Sinus tachycardia. Abdomen distended again. Edema. Patient is arousable. Review of systems: Patient intubated Active Medications Albuterol/Ipratropium (Ipratropium-Albuterol 3 Ml Neb) 3 ml INHALATION RT-Q4H [facility] Last Admin: 03/12/20 19:50 Dose: 3 ml Documented by: Albuterol/Ipratropium (Ipratropium-Albuterol 3 Ml Neb) 3 ml INHALATION RT-Q2H PRN PRN Reason: Shortness Of Breath Or Wheezing Atorvastatin Calcium (Atorvastatin 20 Mg Tab) 20 mg OG-TUBE HS JOANA Last Admin: 03/12/20 21:21 Dose: 20 mg Documented by: Chlorhexidine Gluconate (Chlorhexidine Gluconate 15 Ml Cup) 15 ml MUCOUS MEM BID JOANA Last Admin: 03/12/20 21:21 Dose: 15 ml Documented by: Enoxaparin Sodium (Enoxaparin 60 Mg/0.6 Ml Syringe) 60 mg SQ BID [facility] Last Admin: 03/12/20 21:20 Dose: 60 mg Documented by: Ferrous Sulfate (Ferrous Sulfate Oral Elixir 300 Mg/5 Ml Cup) 300 mg PO BID- W/MEALS [facility] Last Admin: 03/12/20 17:27 Dose: 300 mg Documented by: Fluconazole (Fluconazole 100 Mg Tab) 100 mg PO DAILY [facility] Last Admin: 03/12/20 10:19 Dose: 100 mg Documented by: Folic Acid (Folic Acid 1 Mg Tab) 1 mg OG-TUBE DAILY [facility] Last Admin: 03/12/20 10:19 Dose: 1 mg Documented by: Furosemide (Furosemide 10 Mg/Ml 4 Ml Vial) 40 mg IV DAILY [facility] Last Admin: 03/12/20 10:19 Dose: 40 mg Documented by: Hydrocortisone (Hydrocortisone 20 Mg Tab) 20 mg PO BID [facility] Last Admin: 03/12/20 21:21 Dose: 20 mg Documented by: Insulin Aspart (Insulin Aspart (Novolog) 100 Unit/Ml Vial) 0 unit SQ Q6H [facility]; Protocol Last Admin: 03/12/20 17:26 Dose: Not Given Documented by: Metoclopramide HCl (Metoclopramide 5 Mg/Ml 2 Ml Vial) 10 mg IVP Q6HR PRN PRN Reason: Nausea and Vomiting Miscellaneous Information (Magnesium Replacement Protocol 1 Each Misc) 1 each MISCELLANE DAILY PRN; Protocol PRN Reason: Per Protocol Miscellaneous Information (Potassium Replacement Protocol 1 Each Misc) 1 each MISCELLANE DAILY PRN; Protocol PRN Reason: Per Protocol Ondansetron HCl (Ondansetron 4 Mg/2 Ml Vial) 4 mg IVP Q8HR PRN PRN Reason: Nausea And Vomiting Pantoprazole Sodium (Pantoprazole 40 Mg/10 Ml Vial) 40 mg IVP BID [facility] Last Admin: 03/12/20 21:21 Dose: 40 mg Documented by: Sodium Chloride (Sodium Chloride 0.9% Flush 10 Ml Syringe) 10 ml IV Q4HR PRN PRN Reason: PICC Line Sodium Chloride (Sodium Chloride 0.9% Flush 10 Ml Syringe) 10 ml IV WEEKLY [facility] Sodium Chloride (Sodium Chloride 0.9% Flush 10 Ml Syringe) 20 ml IV Q4HR PRN PRN Reason: PICC Line Tamsulosin HCl (Tamsulosin 0.4 Mg Cap.Er.24h) 0.4 mg PO HS [facility] Last Admin: 03/12/20 21:19 Dose: Not Given Documented by: Thiamine HCl (Thiamine 100 Mg/Ml 2 Ml Vial) 100 mg IVP DAILY [facility] Last Admin: 03/12/20 10:19 Dose: 100 mg Documented by: Physical examination: VITAL SIGNS: 98.1, 114, 12, 101/53, 93% on the ventilator GENERAL: Laying in bed, intubated. Tracheostomy tube, edema EYES: Pupils equal. Conjunctiva normal. HEENT:, Dry oral cavity NECK: JVD unable to assess; masses not palpable. Tracheostomy tube HEART: First and second heart sounds are normal; some edema LUNGS: Respiratory rate increased; decreased breath sounds. ABDOMEN: Soft, distended , nontender, , area of subcutaneous swelling around the incision site. PSYCH: Unable to assess NEUROLOGICAL: Does respond to pain. Occasional spontaneous eye opening. Pupils equal. INVESTIGATIONS, reviewed in the clinical context: March 12: White count 8.8 hemoglobin 9.3 ABG-pH 7.48 pO2 76 potassium 4.4 creatinine 0.82 March 11: White count 20.9 hemoglobin 9.9 platelets 393 potassium 4.2 crit 0.77 albumin 1.9 March 10: White count 22.6 hemoglobin 9.7 platelets 366potassium 4.1 creatinine 0.67 March 09: White count 18.2, hemoglobin 9.5, platelets 369 sodium 147 potassium 4.2 creatinine 0.77 March 08: White count 98.1 hemoglobin 19.3 platelets 329 sodium 148 potassium 3.2 right 126 creatinine 0.7 to albumin 1.9 March 07: White count 24 hemoglobin 9.8 platelets 366 potassium 3.7 creatinine 0.73 White count 16.4 hemoglobin 8.8 platelets 276 potassium 3.5 creatinine 0.71 Previous testing EEG shows evidence of encephalopathy Computed tomography scan of the brain-mild atrophy 2-D echocardiogram-EF 55-60% VQ scan-intermediate probability Chest CTA-suboptimal study. Doppler ultrasound-positive for thrombus within the distal popliteal vein White count 10.2 hemoglobin 14.2 potassium 3.6 B12 some 08 Previously AST 129 ALT 50 Computed tomography scan of the abdomen from January 08-possible colitis, diverticulitis, some esophagitis, hepatic steatosis Abdominal x-ray film personally reviewed by me shows ileus Sputum growing [place] Assessment: -Acute hypoxic respiratory failure, requiring ventilator support-slow to respond -Septic shock-currently off levo fed -Status post low anterior resection, for diverticulitis complication -Postop ileus-recovered -Chronic nicotine dependence patient cigarette smoker -Clinical emphysema, asymptomatic -Suspect alcoholic hepatitis -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 Repeat paracentesis. 4.5 L.-repeat paracentesis is 4.4 L.. Repeat paracen tesis 4 L removed -Mild hyponatremia -Hypernatremia -Macrocytic anemia. -Acute DVT in the left distal popliteal vein -Acute alcohol withdrawal syndrome with improvement -Right lower lobe pneumonia -Mild protein calorie malnutrition from decreased oral intake -Tracheostomy tube placed on March 06 -Metabolic encephalopathy-no improvement -Dobbhoff tube placed and removed Plan: ICU-prognosis remains poor. NG tube feeding.. Resume.. On Diflucan. Continue supportive care. Thank you Dr. Lee
--- NOTE | 2020-03-12 23:09 | PN ---
PROGRESS NOTE DATE OF SERVICE: 03/12/2020 REASON FOR FOLLOWUP: Leukocytosis and possible oropharyngeal candidiasis. INTERVAL HISTORY: The patient is currently afebrile. The patient is hemodynamically stable. FiO2 is currently stable. He has been tolerating his tube feeds. No diarrhea or any chills reported by the nursing staff. PHYSICAL EXAMINATION: Blood pressure is 100/67, pulse of 204, temperature 97.4. He is 90% on 55% FiO2. General description is a middle-aged male lying in bed in no distress. RESPIRATORY SYSTEM: Unlabored breathing with decreased breath sounds at the base. No wheeze. HEART: S1, S2. Regular rate and rhythm. ABDOMEN: Soft, mildly distended. No guarding or rigidity. LABS: BUN of 23, creatinine 0.82. Hemoglobin is 9.3, white count 15.8. DIAGNOSTIC IMPRESSION AND PLAN: Patient with elevated white count, possible oropharyngeal candidiasis in this patient who has completed a long course of antibiotic therapy. The patient at this time is covered with Diflucan and white count did show a downward trend. Continue and will monitor her clinical course closely. Continue with supportive care. MMODL / IJN: [id number] /
[2020-03-13] MEDS: INSULIN ASPART (NovoLOG) 100 UNIT/ML VIAL SQ SCH ×4 (01:26→18:35)
[2020-03-13 01:27] LABS: Glucose,Whole Blood 123 mg/dL (75-99)
[2020-03-13] MEDS: IPRATROPIUM-ALBUTEROL 3 ML NEB INHALATION SCH ×6 (03:34→19:36)
[2020-03-13 05:21] LABS: ABG Base Excess -4.6 mmol/L; ABG HCO3 20 mmol/L (21-25); ABG Oxygen Saturation 93.5 % (94-97); ABG PCO2 30 mmHg (35-45); ABG PH 7.43 (7.35-7.45); ABG PO2 67 mmHg (83-108); ABG TCO2 21 mmol/L (19-24); Allen Test Performed? Yes
[2020-03-13 05:38] LABS: Anisocytosis Slight; Basophils % (A) 0 %; Eosinophils % (A) 0 %; HCT 32.1 % (39.0-53.0); HGB 9.6 gm/dL (13.0-17.5); Hypochromasia Marked; Lymphocytes # (A) 0.7 k/uL (1.0-4.8); Lymphocytes % (A) 4 %; MCH 31.8 pg (25.0-35.0); MCV 105.9 fL (80.0-100.0); Macrocytosis Moderate; Mean Platelet Volume 10.4; Monocytes # (A) 0.6 k/uL (0-1.0); Monocytes % (A) 4 %; Neutrophils # (A) 16.8 k/uL (1.3-7.7); Neutrophils % (A) 92 %; Platelet Count 353 k/uL (150-450); Poikilocytosis Slight; RBC 3.03 m/uL (4.30-5.90); RDW 16.2 % (11.5-15.5); WBC 18.2 k/uL (3.8-10.6)
[2020-03-13 05:52] LABS: Albumin 1.9 g/dL (3.5-5.0); Calcium 8.1 mg/dL (8.4-10.2); Phosphorus 4.8 mg/dL (2.5-4.5); Potassium 4.2 mmol/L (3.5-5.1); Total Bilirubin 0.5 mg/dL (0.2-1.3); Total Protein 4.9 g/dL (6.3-8.2)
--- NOTE | 2020-03-13 07:06 | P.PN ---
Subjective Progress Note Date: 03/13/20 On 03/10/2020 and seeing this patient for a follow-up in the intensive care unit. The patient was admitted on 02/07/2020. The patient is postop AP resection for strictures of diverticular disease. The patient developed clinical deterioration with abdominal sepsis. The patient also had a cardiac pulmonary arrest that was brief and the patient was intubated and placed on a mechanical ventilator and the patient was transferred to the intensive care unit. The acute cardiopulmonary arrest that occurred on 02/26/2020 related to septic shock and the patient required a brief CPR and the patient required intubation and fluid resuscitation and pressors. The patient also developed ascites. Due to his prolonged mechanical ventilation, the patient ultimately had a tracheostomy tube insertion on 03/06/2020. He underwent paracentesis with removal of 8 L of abdominal fluid from the peritoneal cavity on 02/27/2020. And following that a repeat paracentesis was done on 03/05/2026 liters of fluid. Th e patient currently is on a mechanical ventilator and the patient is being ventilated through his tracheostomy tube. The patient is an assist-control mode of ventilation at the rate of 10 with tidal volume of 100 and FiO2 of 35% with a PEEP of 5. The patient is receiving IV fluids to D5 water at the rate of 75 mL an hour. The Dobbhoff catheter was removed and the patient was given an NG was attempted and was not insertable. As such, TPN was recommended. The patient had developed some abdominal distention earlier. Last paracentesis was done yesterday and a total of 4.4 L of ascitic fluid was removed from the abdomen. The patient otherwise doing reasonably well. The patient had also diagnosed having a left lower extremity DVT treated with SC Lovenox. The patient also is currently on TPN. The patient is on stress dose hydrocortisone 50 mg IV every 12 hours, Lovenox 60 mg subcu twice a day and oral vancomycin 125 mg by mouth 4 times a day for some component of enteritis. During the course of the treatment the patient was treated for aspiration pneumonia and abdominal wall cellulitis. The patient had developed diarrhea due to antibiotic exposure and the patient completed the 2 week course of Zosyn and the patient is currently on oral vancomycin. Stool for C. diff has been negative. ID is on the case. on today's evaluation of 03/10/2020, the patient was switched a CPAP at a pressure of 5 pressure support and a PEEP of 5 with an FiO2 of 30%. He is able to generate tidal volumes of about 700. the chest x-ray showing a small left- sided pleural effusion. NG tube is in a good location. The patient has a PICC line right upper extremity. There is a small left-sided pleural effusion for now. The patient has a B[place] tracheostomy tube #8. He is calm and comfortable. No significant orotracheal secretions. Lemus catheter in place. The patient has a PICC line in the right upper extremity and currently is receiving TPN for nutritional support. He also has an NG tube in place. He is not receiving any enteral feeding at this point in time. He does have diffuse anasarca. Abdominal wound is dry clean and intact. Yvonne are still in place. No active drainage. He does have a fecal management system in place and output is in order of minimal probably a few cc on an hourly basis. on today's evaluation of 03/11/2020, the patient is still on CPAP and he was on CPAP pressure support mode overnight at a pressure of 5 cm of water. He is generating tidal volume of 380-400. No tachypnea. No respiratory distress. His blood gases from today showed a pH of 7.48 with a pCO2 of 27 and O2 of 72. The chest x-ray from this morning shows that the patient has a adequate positioning of the tracheostomy tube. Lungs are well expanded. There is no evidence of any pneumothorax. There is a small left-sided pleural effusion. The patient has a PICC line in the right upper extremity. NG tube is in a good location. TPN was discontinued yesterday and the patient was restarted back on enteral feeding and currently is taking right femoral high protein at the rate of 35 mL an hour. He is arousable. He is awake. He follows simple commands. Is extremely debilitated and weak. The fecal management system was discontinued as the patient was not having any further bouts of diarrhea. His body weight is 67 kg. The patient is still on oral vancomycin. This will be discussed with IV. His white cell count is at 20.9. on 03/12/2020, the patient remains on a pressure support mode with a pressure support of 5 and a PEEP of 5. He is resting comfortably on a mechanical ventilator. His chest x-ray from today shows development of a left-sided pleural effusion/consolidation. He has a PICC line in his left upper extremity. No significant orotracheal secretions. While on trach collar, it was suspected that the patient has aspirated. Based on that, the patient was placed back on the pressure support mode and the patient is currently off that she'll feeds. . He has no diarrhea for now. His white cell count is 18.8. Oral vancomycin was discontinued yesterday.the blood gases from today showed a pH of 7.48 with a pCO2 of 27 and pO2 of 76. Renal function is stable. The patient is arousable. He is profoundly weak. He has diffuse anasarca. On today's evaluation, of 03/13/2020, the patient unfortunately has decompensated. He is having episodic aspiration. The chest x-ray is looking worse and the patient bilateral pulmonary infiltrates and effusion slightly worse on the right. Nevertheless, he remains on a spontaneous breathing with a pressure support of 5 and a PEEP of 5 with an FiO2 of 65%. He is hemodynamically stable. He did aspirated around 4:00 AM. He has an NG tube in place. She'll feeds are currently on hold. Abdomen is slightly distended. There is some tube feed material that being suctioned from his tracheostomy tube sites. He became also tachycardic. His heart is the 120s. His blood pressure also dropped. He does have diffuse anasarca. And responding nicely to Lasix was given yesterday and his that fluid balance over the past 24 hours is at -3.9 L. He is arousable. He is extremely weak and debilitated. Objective - Vital Signs Vital signs: Vital Signs Temp 97.5 F L 03/13/20 04:00 Pulse 121 H 03/13/20 06:00 Resp 12 03/13/20 06:00 BP 82/59 03/13/20 02:00 Pulse Ox 93 L 03/13/20 06:00 Intake & Output 03/12/20 03/13/20 03/13/20 18:59 06:59 18:59 Intake Total 186 546 Output Total 1112 265 Balance -926 281 Intake: IV 166 156 Dextrose 5% in Water 1, 130 120 000 ml @ 75 mls/hr IV . [id number] [facility] Rx#:[id number] Pressure bag 36 36 Tube Feeding 20 330 Other 60 Output: Urine 1112 265 Other: Voiding Method Indwelling Catheter Indwelling Catheter ABP, PAP, CO, CI - Last Documented Arterial Blood Pressure 89/55 - Exam GENERAL EXAM: Intubated sedated 64-year-old white male, trached to the mechanical ventilator on assist-control mode of ventilation, in no acute distress, currently on a pressure support of 5 and a PEEP of 5 with an FiO2 of 65%. HEAD: Normocephalic/atraumatic. EYES: Normal reaction of pupils, equal size. Conjunctiva pink, sclera white. NOSE: Clear with pink turbinates. THROAT: No erythema or exudates. NECK: No masses, no JVD, no thyroid enlargement, no adenopathy. Midline tracheostomy in place, patient connected to the ventilator with assist control mode of ventilation CHEST: No chest wall deformity. Symmetrical expansion. LUNGS: Equal air entry with no crackles, wheeze, rhonchi or dullness. CVS: Regular rate and rhythm, normal S1 and S2, no gallops, no murmurs, no rubs ABDOMEN: Less distended and firm on today's exam compared to last week, mild tenderness to palpation, rigidity, and abdominal incision is clean dry and intact, well approximated and healed, yvonne are in place, intact EXTREMITIES: No clubbing, 2+ upper and lower extremity edema, patient has a weeping edema with the drainage from the catheter insertion sites no cyanosis, 2+ pulses and upper and lower extremities. Picc line is in the RUE, diffuse anasarca in all 4 extremities mainly the lower extremities and in the thighs MUSCULOSKELETAL: Muscle strength and tone normal. SPINE: No scoliosis or deformity SKIN: No rashes CENTRAL NERVOUS SYSTEM: awake and the patient has a tone is normal in all 4 extremities. - Labs CBC & Chem 7: 03/13/20 05:04 03/13/20 05:04 Labs: Abnormal Lab Results - Last 24 Hours (Table) 03/12/20 03/13/20 03/13/20 Range/Units 12:04 01:25 05:04 WBC (3.8-10.6) k/uL RBC (4.30-5.90) m/uL Hgb (13.0-17.5) gm/dL Hct (39.0-53.0) % MCV (80.0-100.0) fL MCHC (31.0-37.0) g/dL RDW (11.5-15.5) % Neutrophils # (1.3-7.7) k/uL Lymphocytes # (1.0-4.8) k/uL ABG pCO2 (35-45) mmHg ABG pO2 (83-108) mmHg ABG HCO3 (21-25) mmol/L ABG O2 Saturation (94-97) % Chloride 112 H (98-107) mmol/L Carbon Dioxide 20 L (22-30) mmol/L BUN 28 H (9-20) mg/dL Glucose 124 H (74-99) mg/dL POC Glucose (mg/dL) 102 H 123 H (75-99) mg/dL Calcium 8.1 L (8.4-10.2) mg/dL Phosphorus 4.8 H (2.5-4.5) mg/dL Alkaline Phosphatase 189 H (38-126) U/L Total Protein 4.9 L (6.3-8.2) g/dL Albumin 1.9 L (3.5-5.0) g/dL 03/13/20 03/13/20 Range/Units 05:04 05:16 WBC 18.2 H (3.8-10.6) k/uL RBC 3.03 L (4.30-5.90) m/uL Hgb 9.6 L (13.0-17.5) gm/dL Hct 32.1 L (39.0-53.0) % MCV 105.9 H (80.0-100.0) fL MCHC 30.0 L (31.0-37.0) g/dL RDW 16.2 H (11.5-15.5) % Neutrophils # 16.8 H (1.3-7.7) k/uL Lymphocytes # 0.7 L (1.0-4.8) k/uL ABG pCO2 30 L (35-45) mmHg ABG pO2 67 L (83-108) mmHg ABG HCO3 20 L (21-25) mmol/L ABG O2 Saturation 93.5 L (94-97) % Chloride (98-107) mmol/L Carbon Dioxide (22-30) mmol/L BUN (9-20) mg/dL Glucose (74-99) mg/dL POC Glucose (mg/dL) (75-99) mg/dL Calcium (8.4-10.2) mg/dL Phosphorus (2.5-4.5) mg/dL Alkaline Phosphatase (38-126) U/L Total Protein (6.3-8.2) g/dL Albumin (3.5-5.0) g/dL Assessment and Plan Plan: #1. Acute hypoxic respiratory failure related to septic shock, with a possibility of abdominal sepsis, although cultures from the paracentesis fluid have been negative. On 03/07/2020 patient remains trached to the mechanical ventilator on assist control mode of ventilation. Patient had a tracheostomy on 03/06/2020. The patient's most recent chest x-ray shows a small left-sided pleural effusion. Tracheostomy tube in place and the patient is currently on a pressure support of 5 and a PEEP of 5 with spontaneous breathing mode and is able to generate adequate tidal volumes. the chest x-ray showing bilateral pulmonary infiltrates and the patient is having episodic aspirations. Currently is on 65% FiO2 and a pressure support mode of mechanical ventilation. Suspected superimposed pneumonia. #2. Acute cardiac pulmonary arrest on 02/26/2020 related to septic shock, patient required a brief CPR, was intubated and fluid resuscitated, and she is currently off pressors and he is hemodynamicaly stable #3. Increased bibasilar opacities and a chest x-ray shows bilateral pleural effusions. #4. Abdominal pain and distention, improved post-paracentesis #5. Massive ascites, status post high-volume paracentesis, on 02/27/2020 with removal of 8 L of ascitic fluid, and repeat paracentesis on 2019 would removal of 6 L of fluid and then 4.5 liters on 03/09/2020, slight abdominal distention today's evaluation. There is some recurrence distention the abdomen and this is to be reevaluated. #6. Non-anion gap metabolic acidosis related to septic shock, and has received IV fluids and bicarbonate infusion, resolved #7. Volume contraction alkalosis, secondary to paracentesis and diuretic therapy #8. Elevated d-dimer, nonspecific, doubt possibility of pulmonary embolism. CTA chest was suboptimal but did not reveal any evidence of central pulmonary embolism, VQ scan showed intermediate probability for pulmonary embolism, patient was found to have a new left leg DVT, Currently on Lovenox #9. Diverticulitis, status post lower anterior resection, takedown of splenic flexure and partial omentectomy #10. Alcohol abuse with alcohol withdrawal #11. Recent history dark black stools the possibility of upper GI bleeding, negative EGD #12. Altered mental status, related to metabolic encephalopathy, neurology is following. Off sedation and the patient has a component of a metabolic encephalopathy, sleepy, and unable to follow commands, withdraws from pain, and he seems to be more alert. #13. History of diverticular disease #14. History of EtOH abuse #15 hyperchloremic hypernatremia, sodium level is down to 135 #16 chronic anemia, multifactorial, hemoglobin stable at 9.3 #17 leukocytosis, currently on 18 Plan patient is having recurrent aspiration Restart IV Zosyn Check sputum Gram stain and culture Continue IV diuretics Will monitor the hemodynamics and the blood pressure Keep her tube feeds on hold for now Obtain a pleasant of the abdomen to rule out ileus Obtain ultrasound of the abdomen to evaluate for recurrent ascites and paracentesis if needed rrestart TPN for nutritional support till the abdominal situation is cleared IV fluids will be cut down to 10 mL an hour. The patient's sodium level has normalized. Lovenox 60 mg subcu twice a day Physical therapy we'll start the patient on Lasix 40 mg IV every 12 hours regarding his anasarca select specialty, evaluation was done and more than 30 minutes. Critical care evaluation.
[2020-03-13] MEDS: FERROUS SULFATE ORAL ELIXIR 300 MG/5 ML CUP PO SCH ×2 (09:30→16:05)
[2020-03-13] MEDS: THIAMINE 100 MG/ML 2 ML VIAL IVP SCH (09:36)
[2020-03-13] MEDS: FOLIC ACID 1 MG TAB OG-TUBE SCH (09:36)
--- NOTE | 2020-03-13 10:18 | XR ---
EXAMINATION TYPE: XR abdomen 1V DATE OF EXAM: 03/13/2020 COMPARISON: 03/08/2020 HISTORY: Abdominal distention TECHNIQUE: One view abdominal series FINDINGS: Numerous dilated small bowel loops. Surgical yvonne seen. No air seen in the rectum. Arthropathy rig ht hip postsurgical change left hip. NG tube seen in the stomach. Chronic rib deformities are noted. Vascular calcifications noted. IMPRESSION: 1. Findings are similar to the prior exam and suggestive of high-grade small bowel obstruction.
--- NOTE | 2020-03-13 10:34 | XR ---
EXAMINATION TYPE: XR chest 1V portable DATE OF EXAM: 03/13/2020 COMPARISON: 03/12/2020 HISTORY: Difficulty breathing TECHNIQUE: Single frontal view of the chest is obtained. FINDINGS: Bilateral lower lobe infiltrates. Small bilateral effusion. Tracheostomy tube, NG tube and central line noted. No pneumothorax. Underlying COPD suspected. IMPRESSION: Stable bilateral infiltrate correlate for pneumonia with bilateral effusion. CHF not exc luded.
[2020-03-13] MEDS: PANTOPRAZOLE 40 MG/10 ML VIAL IVP SCH ×2 (11:15→20:51)
[2020-03-13] MEDS: CHLORHEXIDINE GLUCONATE 15 ML CUP MUCOUS MEM SCH ×2 (11:15→20:51)
[2020-03-13] MEDS: PIPERACILLIN-TAZOBACTAM 3.375 GM in SODIUM CHLORIDE 0.9% 100 ML IVPB SCH ×2 (11:15→17:28)
[2020-03-13] MEDS: ENOXAPARIN 60 MG/0.6 ML SYRINGE SQ SCH ×2 (11:15→20:51)
[2020-03-13] MEDS: FUROSEMIDE 10 MG/ML 4 ML VIAL IV SCH (11:15)
[2020-03-13] MEDS: HYDROCORTISONE 20 MG TAB PO SCH ×2 (11:16→20:35)
[2020-03-13] MEDS: FLUCONAZOLE 100 MG TAB PO SCH (11:16)
[2020-03-13] MEDS ORDERED: MVI, ADULT NO.4 WITH VIT K 10 ML, TRACE (CONC-1ML/DOSE) 1 ML, PARENTERAL ELECTROLYTES 2... IV ONE ×4 (12:00)
[2020-03-13 12:23] LABS: Glucose,Whole Blood 101 mg/dL (75-99)
--- NOTE | 2020-03-13 12:35 | US ---
EXAMINATION TYPE: US abdomen limited DATE OF EXAM: 03/13/2020 COMPARISON: NONE CLINICAL HISTORY: ascites. Mild ascites. IMPRESSION: Small amount of ascites
[2020-03-13 13:18] LABS: Ionized Calcium 5.2 mg/dL (4.5-5.3)
[2020-03-13] MEDS: PHENYLEPHRINE 40 MG in SODIUM CHLORIDE 0.9% 250 ML IV SCH ×2 (14:42→23:51)
--- NOTE | 2020-03-13 15:02 | XR ---
EXAMINATION TYPE: XR chest 1V DATE OF EXAM: 03/13/2020 COMPARISON: 03/13/2020 HISTORY: Shortness of breath TECHNIQUE: Single frontal view of the chest is obtained. FINDINGS: NG tube and tracheostomy tube with right-sided PICC line noted. Chronic rib deformities ar e seen. No pneumothorax. Patchy bilateral lower lobe infiltrate with small right effusion. Heart size normal. Atherosclerotic change aorta. No pneumothorax. Underlying COPD suspected. IMPRESSION: Stable bilateral patchy lower lobe infiltrate correlate for pneumonia.
--- NOTE | 2020-03-13 15:08 | P.PN ---
Subjective Progress Note Date: 03/13/20 CHIEF COMPLAINT: Diverticulitis HISTORY OF PRESENT ILLNESS: Patient is status post lower anterior resection, takedown of splenic flexure and partial omentectomy on 02/07/2020. The morning of 02/26/20 patient was transferred to the ICU after STEVE KUMAR was called. Patient had become hypothermic and hypotensive. Patient become unresponsive they lost pulse and CPR was initiated. Patient did require to be intubated. Patient remains in the ICU and on mechanical ventilation. Patient is status post tracheostomy placement. PEG tube was unable to be placed because EGD had to be terminated because the esophagus could not be intubated due to significant swelling at the hypopharynx. Patient aspirated. His tube feedings are currently held. He was started on TPN for nutrition support. Abdominal ultrasound shows small amount of abdominal ascites. Abdominal x-ray reviewed by Dr. Lee showing results showing an ileus. Chest x-ray stable bilateral infiltrate correlate for pneumonia with bi lateral effusion. CHF not excluded. Pulmonary service does have patient on IV Lasix. Patient had been having diarrhea. This has resolved. Fecal management system discontinued the other day. Currently no bowel movements reported. No output through NG tube PHYSICAL EXAM: VITAL SIGNS: Reviewed. GENERAL: Well-developed in no acute distress. HEENT: No sclera icterus. Extraocular movements grossly intact. Moist buccal mucosa. Head is atraumatic, normocephalic. Trach site clean dry and intact ABDOMEN: distended Incision clean dry and intact. NEUROLOGIC: Patient able to open eyes and is awake ASSESSMENT: 1. Cardiopulmonary arrest and acute hypoxic respiratory failure secondary to septic shock. 2. Diverticulitis status post lower anterior resection, takedown of splenic flexure and partial omentectomy on 02/07/2020 3. Patient's abdominal distention likely related to ileus, ascites from his liver cirrhosis and possible hernia. 4. Alcohol abuse with alcohol withdrawal 5. New left leg DVT during this admission 6. Possible ileus 7. Black stools. Resolved. No evidence of upper GI bleed on EGD. EGD was normal 8. Altered mental status likely due to cardiac arrest and superimposed toxic metabolic encephalopathy. Followed by neurology 9. Possible right lower lobe pneumonia 10. Severe protein calorie malnutrition 11. Liver cirrhosis with abdominal ascites status post paracentesis 2 during this admission 12. Hypokalemia improved 13. Patient status post tracheostomy for acute hypoxic respiratory failure 15. New Ileus PLAN: -Patient started on TPN for nutrition support -Continue NG tube for decompression -Continue supportive care Physician Customer Service Clerk note has been reviewed by physician. Signing provider agrees with the documented findings, assessment, and plan of care. Objective - Vital Signs Vital signs: Vital Signs Temp 98.0 F 03/13/20 12:00 Pulse 122 H 03/13/20 14:00 Resp 17 03/13/20 14:00 BP 82/59 03/13/20 02:00 Pulse Ox 988 H 03/13/20 14:00 Intake & Output 03/12/20 03/13/20 03/13/20 18:59 06:59 18:59 Intake Total 186 546 137.058 Output Total 1112 265 65 Balance -926 281 72.058 Weight 60.2 kg Intake: IV 166 156 134 Dextrose 5% in Water 1, 130 120 80 000 ml @ 75 mls/hr IV . [id number] [facility] Rx#:[id number] Mvi, Adult No.4 with Vit 30 K 10 ml Trace (Conc-1Ml/ Dose) 1 ml Parenteral Electrolytes 20 ml In Amino Acid 5%-D15w 1,000 ml @ 30 mls/hr IV .Q24H ONE Rx#:[id number] Pressure bag 36 36 24 Intake, IV Titration 3.058 Amount Phenylephrine 40 mg In 3.058 Sodium Chloride 0.9% 250 ml @ 1 MCG/KG/MIN 22.936 mls/hr IV .Q11H5M [facility] Rx# :[id number] Tube Feeding 20 330 0 Other 60 Output: Urine 1112 265 65 Other: Voiding Method Indwelling Catheter Indwelling Catheter ABP, PAP, CO, CI - Last Documented Arterial Blood Pressure 92/53 - Labs CBC & Chem 7: 03/13/20 05:04 03/13/20 05:04 Labs: Abnormal Lab Results - Last 24 Hours (Table) 03/13/20 03/13/20 03/13/20 Range/Units 01:25 05:04 05:04 WBC 18.2 H (3.8-10.6) k/uL RBC 3.03 L (4.30-5.90) m/uL Hgb 9.6 L (13.0-17.5) gm/dL Hct 32.1 L (39.0-53.0) % MCV 105.9 H (80.0-100.0) fL MCHC 30.0 L (31.0-37.0) g/dL RDW 16.2 H (11.5-15.5) % Neutrophils # 16.8 H (1.3-7.7) k/uL Lymphocytes # 0.7 L (1.0-4.8) k/uL ABG pCO2 (35-45) mmHg ABG pO2 (83-108) mmHg ABG HCO3 (21-25) mmol/L ABG O2 Saturation (94-97) % Chloride 112 H (98-107) mmol/L Carbon Dioxide 20 L (22-30) mmol/L BUN 28 H (9-20) mg/dL Glucose 124 H (74-99) mg/dL POC Glucose (mg/dL) 123 H (75-99) mg/dL Calcium 8.1 L (8.4-10.2) mg/dL Phosphorus 4.8 H (2.5-4.5) mg/dL Alkaline Phosphatase 189 H (38-126) U/L Total Protein 4.9 L (6.3-8.2) g/dL Albumin 1.9 L (3.5-5.0) g/dL 03/13/20 03/13/20 Range/Units 05:16 12:21 WBC (3.8-10.6) k/uL RBC (4.30-5.90) m/uL Hgb (13.0-17.5) gm/dL Hct (39.0-53.0) % MCV (80.0-100.0) fL MCHC (31.0-37.0) g/dL RDW (11.5-15.5) % Neutrophils # (1.3-7.7) k/uL Lymphocytes # (1.0-4.8) k/uL ABG pCO2 30 L (35-45) mmHg ABG pO2 67 L (83-108) mmHg ABG HCO3 20 L (21-25) mmol/L ABG O2 Saturation 93.5 L (94-97) % Chloride (98-107) mmol/L Carbon Dioxide (22-30) mmol/L BUN (9-20) mg/dL Glucose (74-99) mg/dL POC Glucose (mg/dL) 101 H (75-99) mg/dL Calcium (8.4-10.2) mg/dL Phosphorus (2.5-4.5) mg/dL Alkaline Phosphatase (38-126) U/L Total Protein (6.3-8.2) g/dL Albumin (3.5-5.0) g/dL
[2020-03-13 15:23] LABS: ABG Base Excess -3.1 mmol/L; ABG HCO3 21 mmol/L (21-25); ABG Oxygen Saturation 96.4 % (94-97); ABG PCO2 32 mmHg (35-45); ABG PH 7.43 (7.35-7.45); ABG PO2 80 mmHg (83-108); ABG TCO2 22 mmol/L (19-24); Allen Test Performed? Yes
[2020-03-13] MEDS ORDERED: FAT EMULSION 20% 250 ML in EMPTY BAG 1 BAG IV SCH (16:00)
[2020-03-13 18:25] LABS: Glucose,Whole Blood 105 mg/dL (75-99)
--- NOTE | 2020-03-13 20:21 | P.PN ---
Progress Note - Text Progress Note Date: 03/13/20 - Chief Complaint Abdominal surgery History of presenting complaint: This is a pleasant 64-year-old patient of . Patient been having complication to his diverticulitis. computed tomography scan on January 08. Showed some possible stricture. Hepatic steatosis. February 06- undergone low anterior resection. Epidural for pain control.patient had elevated d-dimer. Pulmonary embolism felt to be unlikely. CT was suboptimal. VQ scan was intermediate probability. Leg DVT treated with IV heparin. Had some dark stools.also patient had had altered mental status. [place] to be encephalopathy.computed tomography scan of the brain was unremarkable. EGD-no evidence of bleeding. Patient more awake after dose of baclofen cutback. changed over to xarelto.x-ray showing ileus. Patient did start having bowel movements. Repeat computed tomography scan of abdomen showed possible enteritis./Colitis.as abdomen appeared distended. Lemus catheter was placed. No urine retention.-patient become hypotensive. Had a brief cardiac and pulmonary arrest Moved to ICU. Had to be intubated. Drips include norepinephrine, vasopressin, propofol. NG tube to suction.also treated for aspiration pneumonia and abdominal wall cellulitis.ascitic fluid that was tapped was unremarkable.4.5 L of acetic fluid removed. On March 06 underwent tracheostomy.Dophoff tube was placed and then had to be removed because of abdominal distention. Patient felt to have recurrent aspiration. Today. [id number] 100/PEEP of 5. Getting TPN and lipids. On IV Umberto- Synephrine. Review of systems: Patient intubated Active Medications Albuterol/Ipratropium (Ipratropium-Albuterol 3 Ml Neb) 3 ml INHALATION RT-Q4H [facility] Last Admin: 03/13/20 19:36 Dose: 3 ml Documented by: Albuterol/Ipratropium (Ipratropium-Albuterol 3 Ml Neb) 3 ml INHALATION RT-Q2H PRN PRN Reason: Shortness Of Breath Or Wheezing Atorvastatin Calcium (Atorvastatin 20 Mg Tab) 20 mg OG-TUBE HS [facility] Last Admin: 03/12/20 21:21 Dose: 20 mg Documented by: Chlorhexidine Gluconate (Chlorhexidine Gluconate 15 Ml Cup) 15 ml MUCOUS MEM BID [facility] Last Admin: 03/13/20 11:15 Dose: 15 ml Documented by: Enoxaparin Sodium (Enoxaparin 60 Mg/0.6 Ml Syringe) 60 mg SQ BID [facility] Last Admin: 03/13/20 11:15 Dose: 60 mg Documented by: Ferrous Sulfate (Ferrous Sulfate Oral Elixir 300 Mg/5 Ml Cup) 300 mg PO BID- W/MEALS [facility] Last Admin: 03/13/20 16:05 Dose: Not Given Documented by: Fluconazole (Fluconazole 100 Mg Tab) 100 mg PO DAILY [facility] Last Admin: 03/13/20 11:16 Dose: Not Given Documented by: Folic Acid (Folic Acid 1 Mg Tab) 1 mg OG-TUBE DAILY [facility] Last Admin: 03/13/20 09:36 Dose: Not Given Documented by: Furosemide (Furosemide 10 Mg/Ml 4 Ml Vial) 40 mg IV DAILY [facility] Last Admin: 03/13/20 11:15 Dose: 40 mg Documented by: Hydrocortisone (Hydrocortisone 20 Mg Tab) 20 mg PO BID [facility] Last Admin: 03/13/20 11:16 Dose: Not Given Documented by: Piperacillin Sod/Tazobactam (Sod 3.375 gm/ Sodium Chloride) 100 mls @ 25 mls/hr IVPB Q8HR [facility] Last Admin: 03/13/20 17:28 Dose: 25 mls/hr Documented by: Parenteral Vitamin Supplement 10 ml/ Chromium/Copper/Manganese/Seleni/Zn 1 ml/Parenteral Electrolytes 20 ml/Amino Acids/Dextrose 1,031 mls @ 30 mls/hr IV .Q24H ONE Stop: 03/14/20 11:59 Last Admin: 03/13/20 13:20 Dose: 30 mls/hr Documented by: Parenteral Vitamin Supplement 10 ml/ Chromium/Copper/Manganese/Seleni/Zn 1 ml/Parenteral Electrolytes 20 ml/Amino Acids/Dextrose 1,031 mls @ 40 mls/hr IV .Q24H [facility] Fat Emulsion Intravenous 250 (ml/ IV Solution) 250 mls @ 21 mls/hr IV Q24H [facility] Last Admin: 03/13/20 17:28 Dose: 21 mls/hr Documented by: Phenylephrine HCl 40 mg/ (Sodium Chloride) 254 mls @ 22.936 mls/hr IV .Q11H5M [facility]; Protocol Last Titration: 03/13/20 16:50 Dose: 1.2 mcg/kg/min, 27.523 mls/hr Documented by: Insulin Aspart (Insulin Aspart (Novolog) 100 Unit/Ml Vial) 0 unit SQ Q6H [facility]; Protocol Last Admin: 03/13/20 18:35 Dose: Not Given Documented by: Metoclopramide HCl (Metoclopramide 5 Mg/Ml 2 Ml Vial) 10 mg IVP Q6HR PRN PRN Reason: Nausea and Vomiting Miscellaneous Information (Magnesium Replacement Protocol 1 Each Mis) 1 each MISCELLANE DAILY PRN; Protocol PRN Reason: Per Protocol Miscellaneous Information (Potassium Replacement Protocol 1 Each Mis) 1 each MISCELLANE DAILY PRN; Protocol PRN Reason: Per Protocol Ondansetron HCl (Ondansetron 4 Mg/2 Ml Vial) 4 mg IVP Q8HR PRN PRN Reason: Nausea And Vomiting Pantoprazole Sodium (Pantoprazole 40 Mg/10 Ml Vial) 40 mg IVP BID [facility] Last Admin: 03/13/20 11:15 Dose: 40 mg Documented by: Sodium Chloride (Sodium Chloride 0.9% Flush 10 Ml Syringe) 10 ml IV Q4HR PRN PRN Reason: PICC Line Sodium Chloride (Sodium Chloride 0.9% Flush 10 Ml Syringe) 10 ml IV WEEKLY JOANA Sodium Chloride (Sodium Chloride 0.9% Flush 10 Ml Syringe) 20 ml IV Q4HR PRN PRN Reason: PICC Line Tamsulosin HCl (Tamsulosin 0.4 Mg Cap.Er.24h) 0.4 mg PO HS [facility] Last Admin: 03/12/20 21:19 Dose: Not Given Documented by: Thiamine HCl (Thiamine 100 Mg/Ml 2 Ml Vial) 100 mg IVP DAILY [facility] Last Admin: 03/13/20 09:36 Dose: Not Given Documented by: Physical examination: VITAL SIGNS: 98.1, 120, 18, 95/55, 95% on the ventilator GENERAL: Laying in bed, intubated. Tracheostomy tube, edema EYES: Pupils equal. Conjunctiva normal. HEENT:, Dry oral cavity NECK: JVD unable to assess; masses not palpable. Tracheostomy tube HEART: First and second heart sounds are normal; some edema LUNGS: Respiratory rate increased; decreased breath sounds. ABDOMEN: Soft, distended , nontender, , area of subcutaneous swelling around the incision site. PSYCH: Unable to assess NEUROLOGICAL: Occasional spontaneous eye opening. Pupils equal. INVESTIGATIONS, reviewed in the clinical context: March 13: White count 18.2 hemoglobin 9.6 platelets 253 potassium 4.2 creatinine 1.15. Chest x-ray bilateral infiltrates and fluid March 12: White count 8.8 hemoglobin 9.3 ABG-pH 7.48 pO2 76 potassium 4.4 creatinine 0.82 March 11: White count 20.9 hemoglobin 9.9 platelets 393 potassium 4.2 crit 0.77 albumin 1.9 March 10: White count 22.6 hemoglobin 9.7 platelets 366potassium 4.1 creatinine 0.67 March 09: White count 18.2, hemoglobin 9.5, platelets 369 sodium 147 potassium 4.2 creatinine 0.77 March 08: White count 98.1 hemoglobin 19.3 platelets 329 sodium 148 potassium 3.2 right 126 creatinine 0.7 to albumin 1.9 March 07: White count 24 hemoglobin 9.8 platelets 366 potassium 3.7 creatinine 0.73 White count 16.4 hemoglobin 8.8 platelets 276 potassium 3.5 creatinine 0.71 Previous testing EEG shows evidence of encephalopathy Computed tomography scan of the brain-mild atrophy 2-D echocardiogram-EF 55-60% VQ scan-intermediate probability Chest CTA-suboptimal study. Doppler ultrasound-positive for thrombus within the distal popliteal vein White count 10.2 hemoglobin 14.2 potassium 3.6 B12 some 08 Previously AST 129 ALT 50 Computed tomography scan of the abdomen from January 08-possible colitis, diverticulitis, some esophagitis, hepatic steatosis Abdominal x-ray film personally reviewed by me shows ileus Sputum growing Pita Assessment: -Acute hypoxic respiratory failure, requiring ventilator support-slow to respond -Septic shock-currently off levo fed -Status post low anterior resection, for diverticulitis complication -Recommend aspiration pneumonia -Postop ileus-recovered -Chronic nicotine dependence patient cigarette smoker -Clinical emphysema, asymptomatic -Suspect alcoholic hepatitis -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 Repeat paracentesis. 4.5 L.-repeat paracentesis is 4.4 L.. Repeat para centesis 4 L removed -Mild hyponatremia -Hypernatremia -Macrocytic anemia. -Acute DVT in the left distal popliteal vein -Acute alcohol withdrawal syndrome with improvement -Right lower lobe pneumonia -Mild protein calorie malnutrition from decreased oral intake -Tracheostomy tube placed on March 06 -Metabolic encephalopathy-no improvement -Dobbhoff tube placed and removed Plan: ICU-prognosis remains poor. TPN lipids. On the ventilator. Follow lites closely. Looking at long-term placement Thank you Dr. Lee
[2020-03-13] MEDS: ATORVASTATIN 20 MG TAB OG-TUBE SCH (20:34)
[2020-03-13] MEDS: TAMSULOSIN 0.4 MG CAP.ER.24H PO SCH (20:35)
--- NOTE | 2020-03-13 22:05 | PN ---
PROGRESS NOTE DATE OF SERVICE: 03/13/2020 REASON FOR FOLLOWUP: Oropharyngeal candidiasis and aspiration pneumonitis. INTERVAL HISTORY: The patient did have another episode of aspiration yesterday; has been suctioned out. No significant purulent secretion in the ET has been reported by the nursing staff. The patient is currently hemodynamically stable, not on any pressor support, and no diarrhea has been reported. PHYSICAL EXAMINATION: Blood pressure 96/54, pulse of 120, temperature 98. He is 98% on 50% FiO2. General description is a middle-aged male intubated on the vent. RESPIRATORY SYSTEM: Unlabored breathing with decreased intensity of breath sounds. No wheeze. HEART: S1, S2. Regular rate and rhythm. ABDOMEN: Soft. Mildly distended. No guarding or rigidity. LABS: Hemoglobin 9.6, white count 18.2, BUN of 28, creatinine 1.15. DIAGNOSTIC IMPRESSION AND PLAN: Patient with elevated white count which is multifactorial in this patient who did have aspiration pneumonia. The patient has lower lobe infiltrate. Zosyn has been restarted. Continue with the Diflucan and monitor his clinical course closely. MMODL / IJN: [id number] /
[2020-03-14] MEDS: IPRATROPIUM-ALBUTEROL 3 ML NEB INHALATION SCH ×7 (00:02→23:59)
[2020-03-14 00:45] LABS: Glucose,Whole Blood 105 mg/dL (75-99)
[2020-03-14] MEDS: INSULIN ASPART (NovoLOG) 100 UNIT/ML VIAL SQ SCH ×5 (00:45→23:45)
[2020-03-14] MEDS: PIPERACILLIN-TAZOBACTAM 3.375 GM in SODIUM CHLORIDE 0.9% 100 ML IVPB SCH ×4 (00:46→23:46)
[2020-03-14] MEDS: PHENYLEPHRINE 40 MG in SODIUM CHLORIDE 0.9% 250 ML IV SCH ×2 (04:38→11:02)
[2020-03-14 04:40] LABS: HCT 28.3 % (39.0-53.0); HGB 9.4 gm/dL (13.0-17.5); Hypochromasia Marked; MCH 34.7 pg (25.0-35.0); MCHC 33.2 g/dL (31.0-37.0); MCV 104.4 fL (80.0-100.0); Macrocytosis Moderate; Mean Platelet Volume 10.2; Platelet Count 290 k/uL (150-450); RBC 2.71 m/uL (4.30-5.90); RDW 15.7 % (11.5-15.5); WBC 14.2 k/uL (3.8-10.6)
[2020-03-14 04:51] LABS: Calcium 7.5 mg/dL (8.4-10.2); Phosphorus 4.2 mg/dL (2.5-4.5); Potassium 3.8 mmol/L (3.5-5.1)
[2020-03-14 05:26] LABS: ABG HCO3 19 mmol/L (21-25); ABG Oxygen Saturation 94.5 % (94-97); ABG PCO2 27 mmHg (35-45); ABG PH 7.46 (7.35-7.45); ABG PO2 68 mmHg (83-108); ABG TCO2 20 mmol/L (19-24)
[2020-03-14 08:01] LABS: Glucose,Whole Blood 128 mg/dL (75-99)
--- NOTE | 2020-03-14 08:19 | P.PN ---
Subjective Progress Note Date: 03/14/20 On 03/10/2020 and seeing this patient for a follow-up in the intensive care unit. The patient was admitted on 02/07/2020. The patient is postop AP resection for strictures of diverticular disease. The patient developed clinical deterioration with abdominal sepsis. The patient also had a cardiac pulmonary arrest that was brief and the patient was intubated and placed on a mechanical ventilator and the patient was transferred to the intensive care unit. The acute cardiopulmonary arrest that occurred on 02/26/2020 related to septic shock and the patient required a brief CPR and the patient required intubation and fluid resuscitation and pressors. The patient also developed ascites. Due to his prolonged mechanical ventilation, the patient ultimately had a tracheostomy tube insertion on 03/06/2020. He underwent paracentesis with removal of 8 L of abdominal fluid from the peritoneal cavity on 02/27/2020. And following that a repeat paracentesis was done on 03/05/2026 liters of fluid. Th e patient currently is on a mechanical ventilator and the patient is being ventilated through his tracheostomy tube. The patient is an assist-control mode of ventilation at the rate of 10 with tidal volume of 100 and FiO2 of 35% with a PEEP of 5. The patient is receiving IV fluids to D5 water at the rate of 75 mL an hour. The Dobbhoff catheter was removed and the patient was given an NG was attempted and was not insertable. As such, TPN was recommended. The patient had developed some abdominal distention earlier. Last paracentesis was done yesterday and a total of 4.4 L of ascitic fluid was removed from the abdomen. The patient otherwise doing reasonably well. The patient had also diagnosed having a left lower extremity DVT treated with SC Lovenox. The patient also is currently on TPN. The patient is on stress dose hydrocortisone 50 mg IV every 12 hours, Lovenox 60 mg subcu twice a day and oral vancomycin 125 mg by mouth 4 times a day for some component of enteritis. During the course of the treatment the patient was treated for aspiration pneumonia and abdominal wall cellulitis. The patient had developed diarrhea due to antibiotic exposure and the patient completed the 2 week course of Zosyn and the patient is currently on oral vancomycin. Stool for C. diff has been negative. ID is on the case. on today's evaluation of 03/10/2020, the patient was switched a CPAP at a pressure of 5 pressure support and a PEEP of 5 with an FiO2 of 30%. He is able to generate tidal volumes of about 700. the chest x-ray showing a small left- sided pleural effusion. NG tube is in a good location. The patient has a PICC line right upper extremity. There is a small left-sided pleural effusion for now. The patient has a Bivona tracheostomy tube #8. He is calm and comfortable. No significant orotracheal secretions. Lemus catheter in place. The patient has a PICC line in the right upper extremity and currently is receiving TPN for nutritional support. He also has an NG tube in place. He is not receiving any enteral feeding at this point in time. He does have diffuse anasarca. Abdominal wound is dry clean and intact. Yvonne are still in place. No active drainage. He does have a fecal management system in place and output is in order of minimal probably a few cc on an hourly basis. on today's evaluation of 03/11/2020, the patient is still on CPAP and he was on CPAP pressure support mode overnight at a pressure of 5 cm of water. He is generating tidal volume of 380-400. No tachypnea. No respiratory distress. His blood gases from today showed a pH of 7.48 with a pCO2 of 27 and O2 of 72. The chest x-ray from this morning shows that the patient has a adequate positioning of the tracheostomy tube. Lungs are well expanded. There is no evidence of any pneumothorax. There is a small left-sided pleural effusion. The patient has a PICC line in the right upper extremity. NG tube is in a good location. TPN was discontinued yesterday and the patient was restarted back on enteral feeding and currently is taking right femoral high protein at the rate of 35 mL an hour. He is arousable. He is awake. He follows simple commands. Is extremely debilitated and weak. The fecal management system was discontinued as the patient was not having any further bouts of diarrhea. His body weight is 67 kg. The patient is still on oral vancomycin. This will be discussed with IV. His white cell count is at 20.9. on 03/12/2020, the patient remains on a pressure support mode with a pressure support of 5 and a PEEP of 5. He is resting comfortably on a mechanical ventilator. His chest x-ray from today shows development of a left-sided pleural effusion/consolidation. He has a PICC line in his left upper extremity. No significant orotracheal secretions. While on trach collar, it was suspected that the patient has aspirated. Based on that, the patient was placed back on the pressure support mode and the patient is currently off that she'll feeds. . He has no diarrhea for now. His white cell count is 18.8. Oral vancomycin was discontinued yesterday.the blood gases from today showed a pH of 7.48 with a pCO2 of 27 and pO2 of 76. Renal function is stable. The patient is arousable. He is profoundly weak. He has diffuse anasarca. On today's evaluation, of 03/13/2020, the patient unfortunately has decompensated. He is having episodic aspiration. The chest x-ray is looking worse and the patient bilateral pulmonary infiltrates and effusion slightly worse on the right. Nevertheless, he remains on a spontaneous breathing with a pressure support of 5 and a PEEP of 5 with an FiO2 of 65%. He is hemodynamically stable. He did aspirated around 4:00 AM. He has an NG tube in place. She'll feeds are currently on hold. Abdomen is slightly distended. There is some tube feed material that being suctioned from his tracheostomy tube sites. He became also tachycardic. His heart is the 120s. His blood pressure also dropped. He does have diffuse anasarca. And responding nicely to Lasix was given yesterday and his that fluid balance over the past 24 hours is at -3.9 L. He is arousable. He is extremely weak and debilitated. on 03/14/2020, the patient is being seen for a follow-up. Events from yesterday were noted. The patient had another bout of aspiration. Enterofeeding was completely stopped and the patient is currently receiving on TPN for nutritional support. NG tube is in place with minimal output at this point in time. There was some feeding material was suctioned out from his tracheostomy tube. He became hypotensive. He became tachycardic. He went also into respiratory distress. I had to put him back on assist control mode with a tidal volume of 500 and FiO2 of 100% with a PEEP of 5 and the rate of 10. The chest x-ray from today showed back or lower lobe infiltrates. The blood. From today showed a pH of 7.45 with a pCO2 of 26 and pO2 of 67. As such, the patient is profoundly hypoxic and 100% FiO2. He is also on Umberto-Synephrine running at 02.7 mcg/kg/m. Urine outputis low in the order of 5-10 mL's an hour. Maintenance IV fluids is D5 W at 10 mL an hour.he is less responsive compared to yesterday. He is afebrile. Ultrasound the abdomen was done yesterday and showed minimal amount of ascites. Flat film of the abdomen was also done that showed a high grade small bowel obstruction. This was communicated with the general surgeon. Objective - Vital Signs Vital signs: Vital Signs Temp 97.3 F L 03/14/20 04:00 Pulse 113 H 03/14/20 07:15 Resp 21 03/14/20 07:15 BP 94/63 03/14/20 05:15 Pulse Ox 93 L 03/14/20 07:15 Intake & Output 03/13/20 03/14/20 03/14/20 18:59 06:59 18:59 Intake Total 782.580 2847.006 43 Output Total 130 135 0 Balance 065.544 7161.006 43 Weight 60.2 kg Intake: IV 306 755 43 Dextrose 5% in Water 1, 120 70 10 000 ml @ 75 mls/hr IV . [id number] [facility] Rx#:[id number] Fat Emulsion 20% 250 ml 42 In Empty Bag 1 bag @ 21 mls/hr IV DAILY [facility] Rx#: [id number] Fat Emulsion 20% 250 ml 147 In Empty Bag 1 bag @ 21 mls/hr IV Q24H [facility] Rx#: [id number] Mvi, Adult No.4 with Vit 150 360 30 K 10 ml Trace (Conc-1Ml/ Dose) 1 ml Parenteral Electrolytes 20 ml In Amino Acid 5%-D15w 1,000 ml @ 30 mls/hr IV .Q24H [facility] Rx#:[id number] Piperacillin-Tazobactam 3 100 .375 gm In Sodium Chloride 0.9% 100 ml @ 25 mls/hr IVPB Q8HR [facility] Rx# :[id number] Pressure bag 36 36 3 Intake, IV Titration 25.994 482.006 Amount Phenylephrine 40 mg In 25.994 482.006 Sodium Chloride 0.9% 250 ml @ 1 MCG/KG/MIN 22.936 mls/hr IV .Q11H5M [facility] Rx# :[id number] Tube Feeding 0 Output: Urine 130 135 0 Other: Voiding Method Indwelling Catheter Indwelling Catheter ABP, PAP, CO, CI - Last Documented Arterial Blood Pressure 91/51 - Exam GENERAL EXAM: Intubated sedated 64-year-old white male, trached to the mechanical ventilator on assist-control mode of ventilation, HEAD: Normocephalic/atraumatic. EYES: Normal reaction of pupils, equal size. Conjunctiva pink, sclera white. NOSE: Clear with pink turbinates. THROAT: No erythema or exudates. NECK: No masses, no JVD, no thyroid enlargement, no adenopathy. Midline tracheostomy in place, patient connected to the ventilator with assist control mode of ventilation CHEST: No chest wall deformity. Symmetrical expansion. LUNGS: Equal air entry with no crackles, wheeze, rhonchi or dullness. CVS: Regular rate and rhythm, normal S1 and S2, no gallops, no murmurs, no rubs ABDOME distended and firm on today's exam , mild tenderness to palpation, rigidity, and abdominal incision is clean dry and intact, well approximated and healed, yvonne are in place, intact EXTREMITIES: No clubbing, 2+ upper and lower extremity edema, patient has a weeping edema with the drainage from the catheter insertion sites no cyanosis, 2+ pulses and upper and lower extremities. Picc line is in the RUE, diffuse anasarca in all 4 extremities mainly the lower extremities and in the thighs MUSCULOSKELETAL: Muscle strength and tone normal. SPINE: No scoliosis or deformity SKIN: No rashes CENTRAL NERVOUS SYSTEM: awake and the patient has a tone is normal in all 4 extremities. - Labs CBC & Chem 7: 03/14/20 04:10 03/14/20 04:10 Labs: Abnormal Lab Results - Last 24 Hours (Table) 03/13/20 03/13/20 03/13/20 Range/Units 12:21 15:02 18:23 WBC (3.8-10.6) k/uL RBC (4.30-5.90) m/uL Hgb (13.0-17.5) gm/dL Hct (39.0-53.0) % MCV (80.0-100.0) fL RDW (11.5-15.5) % ABG pH (7.35-7.45) ABG pCO2 32 L (35-45) mmHg ABG pO2 80 L (83-108) mmHg ABG HCO3 (21-25) mmol/L Chloride (98-107) mmol/L Carbon Dioxide (22-30) mmol/L BUN (9-20) mg/dL Glucose (74-99) mg/dL POC Glucose (mg/dL) 101 H 105 H (75-99) mg/dL Calcium (8.4-10.2) mg/dL 03/14/20 03/14/20 03/14/20 Range/Units 00:43 04:10 04:10 WBC 14.2 H (3.8-10.6) k/uL RBC 2.71 L (4.30-5.90) m/uL Hgb 9.4 L (13.0-17.5) gm/dL Hct 28.3 L (39.0-53.0) % MCV 104.4 H (80.0-100.0) fL RDW 15.7 H (11.5-15.5) % ABG pH (7.35-7.45) ABG pCO2 (35-45) mmHg ABG pO2 (83-108) mmHg ABG HCO3 (21-25) mmol/L Chloride 115 H (98-107) mmol/L Carbon Dioxide 19 L (22-30) mmol/L BUN 34 H (9-20) mg/dL Glucose 118 H (74-99) mg/dL POC Glucose (mg/dL) 105 H (75-99) mg/dL Calcium 7.5 L (8.4-10.2) mg/dL 03/14/20 03/14/20 Range/Units 05:21 08:00 WBC (3.8-10.6) k/uL RBC (4.30-5.90) m/uL Hgb (13.0-17.5) gm/dL Hct (39.0-53.0) % MCV (80.0-100.0) fL RDW (11.5-15.5) % ABG pH 7.46 H (7.35-7.45) ABG pCO2 27 L (35-45) mmHg ABG pO2 68 L (83-108) mmHg ABG HCO3 19 L (21-25) mmol/L Chloride (98-107) mmol/L Carbon Dioxide (22-30) mmol/L BUN (9-20) mg/dL Glucose (74-99) mg/dL POC Glucose (mg/dL) 128 H (75-99) mg/dL Calcium (8.4-10.2) mg/dL Microbiology - Last 24 Hours (Table) 03/13/20 20:10 Gram Stain - Preliminary Sputum Sputum Culture - Preliminary Assessment and Plan Plan: #1. Acute hypoxic respiratory failure secondary to ongoing aspiration. The patient Having Aspiration and Currently She Has a High-Grade Bowel Obstruction/Ileus Based on the Flat Some of the Abdomen That Was Done Yesterday. Based on All This, the enteral feeding has been completely discontinued and the patient is currently on TPN for nutritional support. His chest x-ray showing breath and pulmonary infiltrates and effusions consistent with aspiration pneumonia. He is on IV Zosyn for now. She is hypotensive. He is tachycardic. He is back on assist control mode of ventilation. the patient has a tracheostomy tube that was placed on 03/06/2020. Chest x-ray from today was noted. Blood gases from today was noted. #2. Acute cardiac pulmonary arrest on 02/26/2020 related to septic shock, patient required a brief CPR, was intubated and fluid resuscitated, and she is currently off pressors and he is hemodynamicaly stable #3. Increased bibasilar opacities and a chest x-ray shows bilateral pleural effusions.this is consistent with aspiration pneumonia #4. recurrent bowel obstruction. The patient has a high-grade bowel obstruction. NG tube is in place. Abdomen is distended. He is currently nothing by mouth. He also had episodic paracentesis for recurrent ascites. THE ABDOMEN WAS DONE THAT SHOWED SMALL AMOUNT OF ASCITIC FLUID. #5. Massive ascites, status post high-volume paracentesis, on 02/27/2020 with removal of 8 L of ascitic fluid, and repeat paracentesis on 2019 would removal of 6 L of fluid and then 4.5 liters on 03/09/2020, slight abdominal distention today's evaluation. There is some recurrence distention the abdomen and this is to be reevaluated. #6. Non-anion gap metabolic acidosis related to septic shock, current serum bicarbonate her 19 with anion gap of 3. #7. hypotension secondary to above. The patient is likely in septic shock again. The patient is currently on Umberto-Synephrine drip for blood pressure con trol. Lasix will be discontinued and fluid is going to be replaced. #8. Elevated d-dimer, nonspecific, doubt possibility of pulmonary embolism. CTA chest was suboptimal but did not reveal any evidence of central pulmonary embolism, VQ scan showed intermediate probability for pulmonary embolism, patient was found to have a new left leg DVT, Currently on Lovenox #9. Diverticulitis, status post lower anterior resection, takedown of splenic flexure and partial omentectomy #10. Alcohol abuse with alcohol withdrawal #11. Recent history dark black stools the possibility of upper GI bleeding, negative EGD #12. Altered mental status, related to metabolic encephalopathy, neurology is following. Off sedation and the patient has a component of a metabolic encephalopathy, sleepy, and unable to follow commands, withdraws from pain, and he seems to be more alert. #13. History of diverticular disease #14. History of EtOH abuse #15 chronic anemia, multifactorial, hemoglobin stable at 9.4 #17 leukocytosis, currently on 14.2 Plan patient is having recurrent aspiration, we'll keep the patient nothing by mouth. He does have a high-grade bowel obstruction. I'm going to repeat the abdominal from today. I'm going to continueTPN for nutritional support IV Zosyn was restarted. We'll also add Eraxis for fungal coverage. Check sputum Gram stain and culture restart the patient on normal saline at the rate of 75 mL an hour. Continue the Prevacid and the patient is currently on Umberto-Synephrine. Will monitor the hemodynamics and the blood pressure Obtain daily abdominal x-rays TPN for nutritional support Lovenox 60 mg subcu twice a day aadded 10 of PEEP and gradually wean down FiO2 to maintain a saturation above 90%. Condition is extremely critical and prognosis poor baseline above-mentioned comorbidities. This is a critically care evaluation was done and more than 30 minutes. Critical care evaluation Time with Patient: Greater than 30
[2020-03-14] MEDS: FERROUS SULFATE ORAL ELIXIR 300 MG/5 ML CUP PO SCH ×2 (08:32→13:54)
[2020-03-14] MEDS: THIAMINE 100 MG/ML 2 ML VIAL IVP SCH (08:32)
[2020-03-14] MEDS: FOLIC ACID 1 MG TAB OG-TUBE SCH (08:32)
[2020-03-14] MEDS: HYDROCORTISONE 20 MG TAB PO SCH ×2 (08:32→20:37)
[2020-03-14] MEDS ORDERED: propofoL 100 ML IV ONE (08:49)
[2020-03-14] MEDS ORDERED: ANIDULAFUNGIN 200 MG in SODIUM CHLORIDE 0.9% 200 ML IVPB ONE (09:00)
[2020-03-14] MEDS: POTASSIUM CHLORIDE 10 MEQ in WATER FOR INJECTION 1 100ML.BAG IVPB SCH ×2 (09:03→11:03)
[2020-03-14] MEDS: SODIUM CHLORIDE 0.9% 1,000 ML IV SCH (09:04)
--- NOTE | 2020-03-14 09:04 | XR ---
Abdomen HISTORY: Abdominal distention Frontal view of the abdomen and 2 images correlated to prior abdomen and ultrasound dated 03/13/2020 NG tube has been placed, distal tip is near the distal stomach, proximal small bowel. Surgical staple s are present in the midline. Patchy basilar density again noted on the left. No evident pneumoperito neum. Distended loops of small bowel are present. Probable vascular calcifications present within the pelvis. Postop change noted to the left hip. Increased attenuation within the abdomen may be indicat adriana of underlying ascites. IMPRESSION: Findings are similar to prior exam, correlate for ileus versus bowel obstruction.
--- NOTE | 2020-03-14 09:08 | XR ---
EXAMINATION TYPE: XR chest 1V portable DATE OF EXAM: 03/14/2020 COMPARISON: Prior chest x-ray 03/13/2020 HISTORY: Pneumonia, tracheostomy TECHNIQUE: Single frontal view of the chest is obtained. FINDINGS: Tracheostomy tube is overlying the tracheal air column, right-sided PICC line shows the di stal tip over the superior vena cava, there is an NG tube in place. Bilateral basilar increased atten uation present within the lungs. Left hemidiaphragm is obscured. Cardiac mediastinal silhouette is st able. The aorta is dense. IMPRESSION: Correlate for pneumonia versus edema, possible associated effusion.
[2020-03-14] MEDS: CHLORHEXIDINE GLUCONATE 15 ML CUP MUCOUS MEM SCH ×2 (09:11→22:11)
[2020-03-14] MEDS: PANTOPRAZOLE 40 MG/10 ML VIAL IVP SCH ×2 (09:11→22:11)
[2020-03-14] MEDS ORDERED: MVI, ADULT NO.4 WITH VIT K 10 ML, TRACE (CONC-1ML/DOSE) 1 ML, SODIUM ACETATE 40 MEQ, PO... IV SCH ×7 (12:00)
[2020-03-14] MEDS ORDERED: MVI, ADULT NO.4 WITH VIT K 10 ML, TRACE (CONC-1ML/DOSE) 1 ML, PARENTERAL ELECTROLYTES 2... IV SCH ×4 (12:00)
[2020-03-14 12:23] LABS: Glucose,Whole Blood 96 mg/dL (75-99)
[2020-03-14] MEDS: ENOXAPARIN 60 MG/0.6 ML SYRINGE SQ SCH ×2 (12:34→22:11)
[2020-03-14] MEDS ORDERED: SODIUM CHLORIDE 0.9% 1,000 ML IV ONE ×2 (13:02→14:09)
--- NOTE | 2020-03-14 13:17 | P.PN ---
Subjective Progress Note Date: 03/14/20 CHIEF COMPLAINT: Diverticulitis HISTORY OF PRESENT ILLNESS: Patient is status post lower anterior resection, takedown of splenic flexure and partial omentectomy on 02/07/2020. The morning of 02/26/20 patient was transferred to the ICU after STEVE KUMAR was called. Patient had become hypothermic and hypotensive. Patient become unresponsive they lost pulse and CPR was initiated. Patient did require to be intubated. Patient remains in the ICU and on mechanical ventilation. Patient's condition has worsened. He is back on mechanical ventilation and sedation with PEEP 15. He is requiring vasopressor support. Decrease in urine output. He did have 1 loose stool. Afebrile. White count 14.2 hemoglobin 9.4 Abdominal x-ray findings are similar to prior exam correlate for ileus versus bowel obstruction Chest x-ray correlate for pneumonia versus edema ICU nurse did talk with patient's and at this time she does want patient to be full code PHYSICAL EXAM: VITAL SIGNS: Reviewed. GENERAL: Well-developed in no acute distress. HEENT: No sclera icterus. Extraocular movements grossly intact. Moist buccal mucosa. Head is atraumatic, normocephalic. Trach site clean dry and intact ABDOMEN: distended Incision clean dry and intact. NEUROLOGIC: Patient on mechanical ventilation and sedated ASSESSMENT: 1. Cardiopulmonary arrest and acute hypoxic respiratory failure secondary to septic shock. 2. Diverticulitis status post lower anterior resection, takedown of splenic flexure and partial omentectomy on 02/07/2020 3. Patient's abdominal distention likely related to ileus, ascites from his liver cirrhosis and possible hernia. 4. Alcohol abuse with alcohol withdrawal 5. New left leg DVT during this admission 6. Possible ileus 7. Black stools. Resolved. No evidence of upper GI bleed on EGD. EGD was normal 8. Altered mental status likely due to cardiac arrest and superimposed toxic metabolic encephalopathy. Followed by neurology 9. Possible right lower lobe pneumonia 10. Severe protein calorie malnutrition 11. Liver cirrhosis with abdominal ascites status post paracentesis 2 during this admission 12. Hypokalemia improved 13. Patient status post tracheostomy for acute hypoxic respiratory failure 15. New Ileus PLAN: -Patient started on TPN for nutrition support -Continue NG tube for decompression -Continue supportive care Physician Product Handler note has been reviewed by physician. Signing provider agrees with the documented findings, assessment, and plan of care. Objective - Vital Signs Vital signs: Vital Signs Temp 98.2 F 03/14/20 12:00 Pulse 113 H 03/14/20 12:00 Resp 26 H 03/14/20 12:00 BP 94/63 03/14/20 05:15 Pulse Ox 99 03/14/20 12:00 Intake & Output 03/13/20 03/14/20 03/14/20 18:59 06:59 18:59 Intake Total 531.469 4380.006 742 Output Total 130 135 20 Balance 784.752 1908.006 722 Weight 60.2 kg 60.2 kg Intake: IV 306 755 488 Dextrose 5% in Water 1, 120 70 10 000 ml @ 75 mls/hr IV . [id number] [facility] Rx#:[id number] Fat Emulsion 20% 250 ml 42 In Empty Bag 1 bag @ 21 mls/hr IV DAILY [facility] Rx#: [id number] Fat Emulsion 20% 250 ml 147 In Empty Bag 1 bag @ 21 mls/hr IV Q24H [facility] Rx#: [id number] Mvi, Adult No.4 with Vit 150 360 60 K 10 ml Trace (Conc-1Ml/ Dose) 1 ml Parenteral Electrolytes 20 ml In Amino Acid 5%-D15w 1,000 ml @ 30 mls/hr IV .Q24H [facility] Rx#:[id number] Piperacillin-Tazobactam 3 100 .375 gm In Sodium Chloride 0.9% 100 ml @ 25 mls/hr IVPB Q8HR [facility] Rx# :[id number] Piperacillin-Tazobactam 3 100 .375 gm In Sodium Chloride 0.9% 100 ml @ 25 mls/hr IVPB Q8HR [facility] Rx# :[id number] Pressure bag 36 36 18 Sodium Chloride 0.9% 1, 300 000 ml @ 75 mls/hr IV . [id number] [facility] Rx#:[id number] Intake, IV Titration 25.994 482.006 254 Amount Phenylephrine 40 mg In 25.994 482.006 254 Sodium Chloride 0.9% 250 ml @ 1 MCG/KG/MIN 22.936 mls/hr IV .Q11H5M [facility] Rx# :[id number] Tube Feeding 0 Output: Urine 130 135 20 Other: Voiding Method Indwelling Catheter Indwelling Catheter ABP, PAP, CO, CI - Last Documented Arterial Blood Pressure 88/46 - Labs CBC & Chem 7: 03/14/20 04:10 03/14/20 04:10 Labs: Abnormal Lab Results - Last 24 Hours (Table) 03/13/20 03/13/20 03/14/20 Range/Units 15:02 18:23 00:43 WBC (3.8-10.6) k/uL RBC (4.30-5.90) m/uL Hgb (13.0-17.5) gm/dL Hct (39.0-53.0) % MCV (80.0-100.0) fL RDW (11.5-15.5) % ABG pH (7.35-7.45) ABG pCO2 32 L (35-45) mmHg ABG pO2 80 L (83-108) mmHg ABG HCO3 (21-25) mmol/L Chloride (98-107) mmol/L Carbon Dioxide (22-30) mmol/L BUN (9-20) mg/dL Glucose (74-99) mg/dL POC Glucose (mg/dL) 105 H 105 H (75-99) mg/dL Calcium (8.4-10.2) mg/dL 03/14/20 03/14/20 03/14/20 Range/Units 04:10 04:10 05:21 WBC 14.2 H (3.8-10.6) k/uL RBC 2.71 L (4.30-5.90) m/uL Hgb 9.4 L (13.0-17.5) gm/dL Hct 28.3 L (39.0-53.0) % MCV 104.4 H (80.0-100.0) fL RDW 15.7 H (11.5-15.5) % ABG pH 7.46 H (7.35-7.45) ABG pCO2 27 L (35-45) mmHg ABG pO2 68 L (83-108) mmHg ABG HCO3 19 L (21-25) mmol/L Chloride 115 H (98-107) mmol/L Carbon Dioxide 19 L (22-30) mmol/L BUN 34 H (9-20) mg/dL Glucose 118 H (74-99) mg/dL POC Glucose (mg/dL) (75-99) mg/dL Calcium 7.5 L (8.4-10.2) mg/dL 03/14/20 Range/Units 08:00 WBC (3.8-10.6) k/uL RBC (4.30-5.90) m/uL Hgb (13.0-17.5) gm/dL Hct (39.0-53.0) % MCV (80.0-100.0) fL RDW (11.5-15.5) % ABG pH (7.35-7.45) ABG pCO2 (35-45) mmHg ABG pO2 (83-108) mmHg ABG HCO3 (21-25) mmol/L Chloride (98-107) mmol/L Carbon Dioxide (22-30) mmol/L BUN (9-20) mg/dL Glucose (74-99) mg/dL POC Glucose (mg/dL) 128 H (75-99) mg/dL Calcium (8.4-10.2) mg/dL Microbiology - Last 24 Hours (Table) 03/13/20 20:10 Gram Stain - Preliminary Sputum Sputum Culture - Preliminary
[2020-03-14] MEDS: MVI, ADULT NO.4 WITH VIT K 10 ML, TRACE (CONC-1ML/DOSE) 1 ML, SODIUM ACETATE 40 MEQ, PO... IV SCH ×7 (14:07)
[2020-03-14] MEDS: NOREPINEPHRINE 8 MG in SODIUM CHLORIDE 0.9% 250 ML IV SCH (14:43)
[2020-03-14] MEDS ORDERED: PROPOFOL 10 MG/ML 20 ML VIAL IV ONE (15:11)
[2020-03-14 18:14] LABS: Glucose,Whole Blood 137 mg/dL (75-99)
[2020-03-14] MEDS: TAMSULOSIN 0.4 MG CAP.ER.24H PO SCH (20:37)
[2020-03-14] MEDS: ATORVASTATIN 20 MG TAB OG-TUBE SCH (20:37)
--- NOTE | 2020-03-14 22:39 | PN ---
PROGRESS NOTE DATE OF SERVICE: 03/14/2020 REASON FOR FOLLOWUP: Oropharyngeal candidiasis and aspiration pneumonia. INTERVAL HISTORY: The patient remains afebrile. The patient is hemodynamically stable, not on any pressor support. No significant purulent secretions through the ET or any diarrhea reported by the nursing staff. Patient himself was unable to provide any history. PHYSICAL EXAMINATION: Blood pressure 113/52 with a pulse of 120, temperature 98. General description is a middle-aged male intubated on the vent. RESPIRATORY SYSTEM: Unlabored breathing with decreased breath sounds at the base. No wheeze. HEART: S1, S2. Regular rate and rhythm. ABDOMEN: Soft. No tenderness. LABS: Hemoglobin is 10.2, white count 14.2, BUN of 34, creatinine 1.17. DIAGNOSTIC IMPRESSION AND PLAN: 1. Patient with leukocytosis which is multifactorial in this patient with a possible component of aspiration pneumonia. Patient is covered with Zosyn. Repeat sputum has been ordered; currently pending. 2. Oropharyngeal candidiasis. To continue with Eraxis and monitor his clinical course closely. MMODL / IJN: [id number] /
[2020-03-14 23:41] LABS: Glucose,Whole Blood 184 mg/dL (75-99)
[2020-03-15] MEDS: SODIUM CHLORIDE 0.9% 1,000 ML IV SCH ×2 (00:42→11:13)
[2020-03-15] MEDS: NOREPINEPHRINE 8 MG in SODIUM CHLORIDE 0.9% 250 ML IV SCH ×4 (00:42→19:16)
[2020-03-15 04:53] LABS: Glucose,Whole Blood 163 mg/dL (75-99)
[2020-03-15] MEDS: FERROUS SULFATE ORAL ELIXIR 300 MG/5 ML CUP PO SCH ×2 (04:54→15:34)
[2020-03-15] MEDS: IPRATROPIUM-ALBUTEROL 3 ML NEB INHALATION SCH ×5 (04:55→20:25)
[2020-03-15] MEDS: INSULIN ASPART (NovoLOG) 100 UNIT/ML VIAL SQ SCH ×3 (04:56→19:15)
[2020-03-15 05:07] LABS: Anisocytosis Slight; HCT 29.1 % (39.0-53.0); HGB 8.6 gm/dL (13.0-17.5); Hypochromasia Marked; MCH 31.9 pg (25.0-35.0); MCHC 29.6 g/dL (31.0-37.0); Macrocytosis Marked; Platelet Count 268 k/uL (150-450); RDW 16.1 % (11.5-15.5); WBC 17.6 k/uL (3.8-10.6)
[2020-03-15 05:09] LABS: MCV 107.8 fL (80.0-100.0)
[2020-03-15 05:25] LABS: Calcium 6.8 mg/dL (8.4-10.2); Magnesium 1.9 mg/dL (1.6-2.3); Phosphorus 3.9 mg/dL (2.5-4.5); Potassium 3.8 mmol/L (3.5-5.1)
[2020-03-15 05:44] LABS: ABG Base Excess -12.1 mmol/L; ABG HCO3 15 mmol/L (21-25); ABG Oxygen Saturation 99.4 % (94-97); ABG PCO2 37 mmHg (35-45); ABG PH 7.23 (7.35-7.45); ABG PO2 130 mmHg (83-108); ABG TCO2 17 mmol/L (19-24); Allen Test Performed? Yes
[2020-03-15] MEDS: POTASSIUM CHLORIDE 10 MEQ in WATER FOR INJECTION 1 100ML.BAG IVPB SCH ×2 (06:27→10:40)
--- NOTE | 2020-03-15 08:18 | P.PN ---
Subjective Progress Note Date: 03/15/20 On 03/10/2020 and seeing this patient for a follow-up in the intensive care unit. The patient was admitted on 02/07/2020. The patient is postop AP resection for strictures of diverticular disease. The patient developed clinical deterioration with abdominal sepsis. The patient also had a cardiac pulmonary arrest that was brief and the patient was intubated and placed on a mechanical ventilator and the patient was transferred to the intensive care unit. The acute cardiopulmonary arrest that occurred on 02/26/2020 related to septic shock and the patient required a brief CPR and the patient required intubation and fluid resuscitation and pressors. The patient also developed ascites. Due to his prolonged mechanical ventilation, the patient ultimately had a tracheostomy tube insertion on 03/06/2020. He underwent paracentesis with removal of 8 L of abdominal fluid from the peritoneal cavity on 02/27/2020. And following that a repeat paracentesis was done on 03/05/2026 liters of fluid. Th e patient currently is on a mechanical ventilator and the patient is being ventilated through his tracheostomy tube. The patient is an assist-control mode of ventilation at the rate of 10 with tidal volume of 100 and FiO2 of 35% with a PEEP of 5. The patient is receiving IV fluids to D5 water at the rate of 75 mL an hour. The Dobbhoff catheter was removed and the patient was given an NG was attempted and was not insertable. As such, TPN was recommended. The patient had developed some abdominal distention earlier. Last paracentesis was done yesterday and a total of 4.4 L of ascitic fluid was removed from the abdomen. The patient otherwise doing reasonably well. The patient had also diagnosed having a left lower extremity DVT treated with SC Lovenox. The patient also is currently on TPN. The patient is on stress dose hydrocortisone 50 mg IV every 12 hours, Lovenox 60 mg subcu twice a day and oral vancomycin 125 mg by mouth 4 times a day for some component of enteritis. During the course of the treatment the patient was treated for aspiration pneumonia and abdominal wall cellulitis. The patient had developed diarrhea due to antibiotic exposure and the patient completed the 2 week course of Zosyn and the patient is currently on oral vancomycin. Stool for C. diff has been negative. ID is on the case. on today's evaluation of 03/10/2020, the patient was switched a CPAP at a pressure of 5 pressure support and a PEEP of 5 with an FiO2 of 30%. He is able to generate tidal volumes of about 700. the chest x-ray showing a small left- sided pleural effusion. NG tube is in a good location. The patient has a PICC line right upper extremity. There is a small left-sided pleural effusion for now. The patient has a Bivona tracheostomy tube #8. He is calm and comfortable. No significant orotracheal secretions. Lemus catheter in place. The patient has a PICC line in the right upper extremity and currently is receiving TPN for nutritional support. He also has an NG tube in place. He is not receiving any enteral feeding at this point in time. He does have diffuse anasarca. Abdominal wound is dry clean and intact. [place] are still in place. No active drainage. He does have a fecal management system in place and output is in order of minimal probably a few cc on an hourly basis. on today's evaluation of 03/11/2020, the patient is still on CPAP and he was on CPAP pressure support mode overnight at a pressure of 5 cm of water. He is generating tidal volume of 380-400. No tachypnea. No respiratory distress. His blood gases from today showed a pH of 7.48 with a pCO2 of 27 and O2 of 72. The chest x-ray from this morning shows that the patient has a adequate positioning of the tracheostomy tube. Lungs are well expanded. There is no evidence of any pneumothorax. There is a small left-sided pleural effusion. The patient has a PICC line in the right upper extremity. NG tube is in a good location. TPN was discontinued yesterday and the patient was restarted back on enteral feeding and currently is taking right femoral high protein at the rate of 35 mL an hour. He is arousable. He is awake. He follows simple commands. Is extremely debilitated and weak. The fecal management system was discontinued as the patient was not having any further bouts of diarrhea. His body weight is 67 kg. The patient is still on oral vancomycin. This will be discussed with IV. His white cell count is at 20.9. on 03/12/2020, the patient remains on a pressure support mode with a pressure support of 5 and a PEEP of 5. He is resting comfortably on a mechanical ventilator. His chest x-ray from today shows development of a left-sided pleural effusion/consolidation. He has a PICC line in his left upper extremity. No significant orotracheal secretions. While on trach collar, it was suspected that the patient has aspirated. Based on that, the patient was placed back on the pressure support mode and the patient is currently off that she'll feeds. . He has no diarrhea for now. His white cell count is 18.8. Oral vancomycin was discontinued yesterday.the blood gases from today showed a pH of 7.48 with a pCO2 of 27 and pO2 of 76. Renal function is stable. The patient is arousable. He is profoundly weak. He has diffuse anasarca. On today's evaluation, of 03/13/2020, the patient unfortunately has decompensated. He is having episodic aspiration. The chest x-ray is looking worse and the patient bilateral pulmonary infiltrates and effusion slightly worse on the right. Nevertheless, he remains on a spontaneous breathing with a pressure support of 5 and a PEEP of 5 with an FiO2 of 65%. He is hemodynamically stable. He did aspirated around 4:00 AM. He has an NG tube in place. She'll feeds are currently on hold. Abdomen is slightly distended. There is some tube feed material that being suctioned from his tracheostomy tube sites. He became also tachycardic. His heart is the 120s. His blood pressure also dropped. He does have diffuse anasarca. And responding nicely to Lasix was given yesterday and his that fluid balance over the past 24 hours is at -3.9 L. He is arousable. He is extremely weak and debilitated. on 03/14/2020, the patient is being seen for a follow-up. Events from yesterday were noted. The patient had another bout of aspiration. Enterofeeding was completely stopped and the patient is currently receiving on TPN for nutritional support. NG tube is in place with minimal output at this point in time. There was some feeding material was suctioned out from his tracheostomy tube. He became hypotensive. He became tachycardic. He went also into respiratory distress. I had to put him back on assist control mode with a tidal volume of 500 and FiO2 of 100% with a PEEP of 5 and the rate of 10. The chest x-ray from today showed back or lower lobe infiltrates. The blood. From today showed a pH of 7.45 with a pCO2 of 26 and pO2 of 67. As such, the patient is profoundly hypoxic and 100% FiO2. He is also on Umberto-Synephrine running at 02.7 mcg/kg/m. Urine outputis low in the order of 5-10 mL's an hour. Maintenance IV fluids is D5 W at 10 mL an hour.he is less responsive compared to yesterday. He is afebrile. Ultrasound the abdomen was done yesterday and showed minimal amount of ascites. Flat film of the abdomen was also done that showed a high grade small bowel obstruction. This was communicated with the general surgeon. 03/14/2020, the patient is being seen for a follow-up. Unfortunately the patient is back to have a being septic secondary to aspiration pneumonia. His chest x-ray showing bilateral pulmonary infiltrates and the patient is back on assist control mode of ventilation with a tidal volume of 500 and FiO2 of 60% with a PEEP of 15 and a rate of 10. Blood gases from today showed a pH of 7.23 with a pCO2 of 37 and pO2 of 130. Chest x-ray showing bilateral lower lobe pulmonary infiltrates. The patient is currently on propofol running at 25 mcg/kg per minute is calm and comfortable and symptoms with the mechanical ventilator. He remains nothing by mouth. Is on TPN running at 55 mL an hour. He is also on norepinephrine infusion running at 0.38 mcg/kg per minute. He received several IV fluid boluses yesterday regarding his sepsis and hypotension. The patient is still having diffuse anasarca. He has somewhat abdominal distention probably related to recurrence of his abdominal ascites. On from yesterday showed ileus/high-grade bowel obstruction. The patient remains nothing by mouth. NG tube is in place and output from the NG tube is in order of minimal. Urine output is in order of 30 mL an hour. By the coverage is in a combination of Zosyn and Eraxis. Chest x-ray from today is showing bilateral lower lobe pulmonary infiltrates. No other significant events overnight. He is acidotic. Serum bicarbonate down to 16. Renal function stable with a creatinine of 1.06. White cell count is at 17.6. Objective - Vital Signs Vital signs: Vital Signs Temp 97.9 F 03/15/20 04:00 Pulse 115 H 03/15/20 07:00 Resp 19 03/15/20 07:00 BP 92/57 03/15/20 04:00 Pulse Ox 94 L 03/15/20 07:00 Intake & Output 03/14/20 03/15/20 03/15/20 18:59 06:59 18:59 Intake Total 3671.262 2170.510 133 Output Total 4035 330 45 Balance -342.751 3420.510 88 Weight 60.2 kg 64.4 kg Intake: IV 3019 1702 133 Dextrose 5% in Water 1, 10 000 ml @ 75 mls/hr IV . [id number] [facility] Rx#:[id number] Mvi, Adult No.4 with Vit 200 110 K 10 ml Trace (Conc-1Ml/ Dose) 1 ml Parenteral Electrolytes 20 ml In Amino Acid 5%-D15w 1,000 ml @ 30 mls/hr IV .Q24H [facility] Rx#:[id number] Mvi, Adult No.4 with Vit 550 55 K 10 ml Trace (Conc-1Ml/ Dose) 1 ml Sodium Acetate 40 meq Potassium Acetate 30 meq Calcium Gluconate 1 gm Magnesium Sulfate gm 0.75 gm In Amino Acid 5%-D15w 1,000 ml @ 55 mls /hr IV .[id number] [facility] Rx#: [id number] Piperacillin-Tazobactam 3 100 100 .375 gm In Sodium Chloride 0.9% 100 ml @ 25 mls/hr IVPB Q8HR [facility] Rx# :[id number] Pressure bag 36 42 3 Sodium Chloride 0.9% 1, 675 900 75 000 ml @ 75 mls/hr IV . [id number] [facility] Rx#:[id number] Sodium Chloride 0.9% 1, 1998 000 ml @ 999 mls/hr IV . Q1H1M [facility] Rx#:[id number] Intake, IV Titration 652.262 468.510 Amount Mvi, Adult No.4 with Vit 41.25 K 10 ml Trace (Conc-1Ml/ Dose) 1 ml Sodium Acetate 40 meq Potassium Acetate 30 meq Calcium Gluconate 1 gm Magnesium Sulfate gm 0.75 gm In Amino Acid 5%-D15w 1,000 ml @ 55 mls /hr IV .[id number] [facility] Rx#: [id number] Norepinephrine 8 mg In 103.012 371.498 Sodium Chloride 0.9% 250 ml @ 0.05 MCG/KG/MIN 5. 824 mls/hr IV .Q24H [facility] Rx#:[id number] Phenylephrine 40 mg In 508 Sodium Chloride 0.9% 250 ml @ 1 MCG/KG/MIN 22.936 mls/hr IV .Q11H5M [facility] Rx# :[id number] propofoL 1,000 mg In 97.012 Empty Bag 1 bag @ Titrate IV .Q0M [facility] Rx#: [id number] Output: Drainage 4000 Right Lower Lateral 4000 Abdomen Paracentesis site Urine 35 330 45 Other: Voiding Method Indwelling Catheter Indwelling Catheter # Voids 0 # Bowel Movements 2 ABP, PAP, CO, CI - Last Documented Arterial Blood Pressure 104/53 - Exam GENERAL EXAM: Intubated sedated 64-year-old white male, trached to the mechanical ventilator on assist-control mode of ventilation, and the patient is a #[address] trache[address] Emaciated. His body mass index is 21.6. HEAD: Normocephalic/atraumatic. EYES: Normal reaction of pupils, equal size. Conjunctiva pink, sclera white. NOSE: Clear with pink turbinates. THROAT: No erythema or exudates. NECK: No masses, no JVD, no thyroid enlargement, no adenopathy. Midline tracheostomy in place, patient connected to the ventilator with assist control mode of ventilation CHEST: No chest wall deformity. Symmetrical expansion. LUNGS: Equal air entry with no crackles, wheeze, rhonchi or dullness. CVS: Regular rate and rhythm, normal S1 and S2, no gallops, no murmurs, no rubs ABDOME distended and firm on today's exam , mild tenderness to palpation, rigidity, and abdominal incision is clean dry and intact, well approximated and healed, yvonne are in place, intact, the surgical yvonne are still in place EXTREMITIES: No clubbing, 2+ upper and lower extremity edema, patient has a weeping edema with the drainage from the catheter insertion sites no cyanosis, 2+ pulses and upper and lower extremities. Picc line is in the RUE, diffuse anasarca in all 4 extremities mainly the lower extremities and in the thighs MUSCULOSKELETAL: Significant motor weakness in all 4 extremities. The patient has diffuse anasarca and edema in all 4 extremities. He is well sedated for now. Strength cannot be assessed accurately. He was also afebrile stimulation. SPINE: No scoliosis or deformity SKIN: No rashes CENTRAL NERVOUS SYSTEM: The patient is sedated with propofol and the patient is calm and comfortable. - Labs CBC & Chem 7: 03/15/20 04:47 03/15/20 04:47 Labs: Abnormal Lab Results - Last 24 Hours (Table) 03/14/20 03/14/20 03/15/20 Range/Units 18:13 23:40 04:47 WBC (3.8-10.6) k/uL RBC (4.30-5.90) m/uL Hgb (13.0-17.5) gm/dL Hct (39.0-53.0) % MCV (80.0-100.0) fL MCHC (31.0-37.0) g/dL RDW (11.5-15.5) % Macrocytosis ABG pH (7.35-7.45) ABG pO2 (83-108) mmHg ABG HCO3 (21-25) mmol/L ABG Total CO2 (19-24) mmol/L ABG O2 Saturation (94-97) % Chloride 119 H (98-107) mmol/L Carbon Dioxide 16 L (22-30) mmol/L BUN 36 H (9-20) mg/dL Glucose 166 H (74-99) mg/dL POC Glucose (mg/dL) 137 H 184 H (75-99) mg/dL Calcium 6.8 L (8.4-10.2) mg/dL 03/15/20 03/15/20 03/15/20 Range/Units 04:47 04:52 05:40 WBC 17.6 H (3.8-10.6) k/uL RBC 2.70 L (4.30-5.90) m/uL Hgb 8.6 L (13.0-17.5) gm/dL Hct 29.1 L (39.0-53.0) % MCV 107.8 H (80.0-100.0) fL MCHC 29.6 L (31.0-37.0) g/dL RDW 16.1 H (11.5-15.5) % Macrocytosis Marked A ABG pH 7.23 L (7.35-7.45) ABG pO2 130 H (83-108) mmHg ABG HCO3 15 L (21-25) mmol/L ABG Total CO2 17 L (19-24) mmol/L ABG O2 Saturation 99.4 H (94-97) % Chloride (98-107) mmol/L Carbon Dioxide (22-30) mmol/L BUN (9-20) mg/dL Glucose (74-99) mg/dL POC Glucose (mg/dL) 163 H (75-99) mg/dL Calcium (8.4-10.2) mg/dL Microbiology - Last 24 Hours (Table) 03/13/20 20:10 Gram Stain - Preliminary Sputum Sputum Culture - Preliminary Assessment and Plan Plan: #1. Acute hypoxic respiratory failure secondary to ongoing aspiration. The patient has developed recurrent aspiration. Chest x-ray shows clearly development of new bilateral lower lobe pulmonary infiltrates. The patient was being fed and static an NG tube.. If abdominal distention and he also had a component of bowel obstruction versus ileus. As such, TUBES have been discontinued and the patient is currently on TPN for nutritional support. The patient is back on IV Zosyn. He is an assist-control mode of ventilation. It is ventilator changes were done as the patient was quite hypoxemic. His oxygenation is improved on today's chest x-ray. Mrs. ventilator changes will be done. The patient is a tracheostomy tube which is a number a Bivona. #2. Acute cardiac pulmonary arrest on 02/26/2020 related to septic shock, patient required a brief CPR, was intubated and fluid resuscitated, and she is currently off pressors and he is hemodynamicaly stable #3. Increased bibasilar opacities and a chest x-ray shows bilateral pleural effusions.this is consistent with aspiration pneumonia #4. recurrent bowel obstruction. The patient has a high-grade bowel obstruction. NG tube is in place. Abdomen is distended. He is currently nothing by mouth. He also had episodic paracentesis for recurrent ascites. THE ABDOMEN WAS DONE THAT SHOWED SMALL AMOUNT OF ASCITIC FLUID. We will discuss the need for today another paracentesis with general surgery. The repeat x-ray of the abdomen shows some nonspecific bowel gas pattern. The stomach is slightly distended. NG tube is in a good location. #5. Massive ascites, status post high-volume paracentesis, on 02/27/2020 with removal of 8 L of ascitic fluid, and repeat paracentesis on 2019 would removal of 6 L of fluid and then 4.5 liters on 03/09/2020, slight abdominal distention today's evaluation. There is some recurrence distention the abdomen and possibly some recurrent ascites. #6. Non-anion gap metabolic acidosis related to septic shock, current serum bicarbonate her 16 #7. hypotension secondary to above. The patient is likely in septic shock again. The patient is on norepinephrine infusion running at 0.38 mcg/kg per minute. His #8. Elevated d-dimer, nonspecific, doubt possibility of pulmonary embolism. CTA chest was suboptimal but did not reveal any evidence of central pulmonary embolism, VQ scan showed intermediate probability for pulmonary embolism, patient was found to have a new left leg DVT, Currently on Lovenox #9. Diverticulitis, status post lower anterior resection, takedown of splenic flexure and partial omentectomy #10. Alcohol abuse with alcohol withdrawal #11. Recent history dark black stools the possibility of upper GI bleeding, negative EGD #12. Altered mental status, related to metabolic encephalopathy, neurology is following. Off sedation and the patient has a component of a metabolic encephalo tressa, sleepy, and unable to follow commands, withdraws from pain, and he seems to be more alert. #13. History of diverticular disease #14. History of EtOH abuse #15 chronic anemia, multifactorial, hemoglobin stable at 8.6 #17 leukocytosis, currently on 17 Plan Keep the patient nothing by mouth Continue to care for nutritional support IV Zosyn and Eraxis for fungal coverage. Check sputum Gram stain and culture Continue pressors Drop the FiO2 down to 50% and PEEP down to 13 and further weaning the PEEP down to 11 and the saturation remains above 95% Will monitor the hemodynamics and the blood pressure Lovenox 60 mg subcu twice a day Keep the patient sedated yet nor the degree of sedation as the patient is quite somnolent at this point in time. Possible repeat paracentesis and this was discussed with general surgery Condition is extremely critical and prognosis poor baseline above-mentioned comorbidities. This is a critically care evaluation was done and more than 30 minutes. Critical care evaluation Time with Patient: Greater than 30
[2020-03-15] MEDS: ANIDULAFUNGIN 100 MG in SODIUM CHLORIDE 0.9% 100 ML IVPB SCH (10:39)
[2020-03-15] MEDS: PIPERACILLIN-TAZOBACTAM 3.375 GM in SODIUM CHLORIDE 0.9% 100 ML IVPB SCH ×2 (10:40→15:34)
[2020-03-15] MEDS: CHLORHEXIDINE GLUCONATE 15 ML CUP MUCOUS MEM SCH ×2 (10:42→20:11)
[2020-03-15] MEDS: HYDROCORTISONE 20 MG TAB PO SCH ×3 (10:42→20:09)
[2020-03-15] MEDS: PANTOPRAZOLE 40 MG/10 ML VIAL IVP SCH ×2 (10:42→20:11)
[2020-03-15] MEDS: ENOXAPARIN 60 MG/0.6 ML SYRINGE SQ SCH ×2 (10:42→20:11)
[2020-03-15] MEDS: FOLIC ACID 1 MG TAB OG-TUBE SCH ×2 (10:43→11:12)
[2020-03-15] MEDS: THIAMINE 100 MG/ML 2 ML VIAL IVP SCH (10:43)
--- NOTE | 2020-03-15 11:22 | XR ---
EXAMINATION TYPE: XR abdomen 1V DATE OF EXAM: 03/15/2020 COMPARISON: 03/14/2020 INDICATION: Ascites TECHNIQUE: Single view abdomen supine view on 2 images FINDINGS: Surgical skin yvonne are present anteriorly. There is diffuse opacity present which could indicate underlying ascites. Nonspecific bowel gas pattern is present. Air is within small bowel loops as well as colon. Air dilat ation is slightly diminished over the interval. Correlate for ileus Psoas margins are poorly visualized No organomegaly is present. IMPRESSION: 1. Vague increased opacity can be compatible with underlying ascites. 2. Nonspecific bowel gas pattern appears improving from comparison. Correlate for ileus.
--- NOTE | 2020-03-15 11:23 | XR ---
EXAMINATION TYPE: XR chest 1V portable DATE OF EXAM: 03/15/2020 COMPARISON: 03/14/2020 INDICATION: Pneumonia TECHNIQUE: Single frontal view of the chest is obtained. FINDINGS: The heart size is normal. The pulmonary vasculature is normal. Bibasilar infiltrates are present. Findings appear worsened over the interval. Correlate for pneumoni a and atelectasis. Tracheostomy tube is in the midline with tip above the eber. Right-sided PICC line has its tip in t he superior vena cava region. Nasogastric tube transverses the thorax. IMPRESSION: 1. Worsening bibasilar consolidations. Correlate for pneumonia. 2. Lines and catheters discussed above.
[2020-03-15 11:27] LABS: Glucose,Whole Blood 121 mg/dL (75-99)
--- NOTE | 2020-03-15 12:16 | P.PN ---
Progress Note - Text Progress Note Date: 03/15/20 The patient remains relatively unchanged. On exam her vital signs are stable. Abdomen is soft there is evidence of ascites. Abdomen is firm. Patient has no real improvement over last week. It is unclear if the family will make him comfort care. He'll Receive supportive care.
[2020-03-15] MEDS: MVI, ADULT NO.4 WITH VIT K 10 ML, TRACE (CONC-1ML/DOSE) 1 ML, SODIUM ACETATE 40 MEQ, PO... IV SCH ×7 (12:37)
[2020-03-15 14:45] LABS: Prothrombin Time 10.7 sec (9.0-12.0)
[2020-03-15 17:20] LABS: Glucose,Whole Blood 141 mg/dL (75-99)
--- NOTE | 2020-03-15 17:22 | P.PN ---
Progress Note - Text Progress Note Date: 03/15/20 - Chief Complaint Abdominal surgery History of presenting complaint: This is a pleasant 64-year-old patient of . Patient been having complication to his diverticulitis. computed tomography scan on January 08. Showed some possible stricture. Hepatic steatosis. February 06- undergone low anterior resection. Epidural for pain control.patient had elevated d-dimer. Pulmonary embolism felt to be unlikely. CT was suboptimal. VQ scan was intermediate probability. Leg DVT treated with IV heparin. Had some dark stools.also patient had had altered mental status. [place] to be encephalopathy.computed tomography scan of the brain was unremarkable. EGD-no evidence of bleeding. Patient more awake after dose of baclofen cutback. changed over to xarelto.x-ray showing ileus. Patient did start having bowel movements. Repeat computed tomography scan of abdomen showed possible enteritis./Colitis.as abdomen appeared distended. Lemus catheter was placed. No urine retention.-patient become hypotensive. Had a brief cardiac and pulmonary arrest Moved to ICU. Had to be intubated. Drips include norepinephrine, vasopressin, propofol. NG tube to suction.also treated for aspiration pneumonia and abdominal wall cellulitis.ascitic fluid that was tapped was unremarkable.4.5 L of acetic fluid removed. On March 06 underwent tracheostomy.Dophoff tube was placed and then had to be removed because of abdominal distention. Patient felt to have recurrent aspiration. Today. [id number] 50 and a PEEP of 11. NG tube. TPN and lipids IV drips included propofol and norepinephrine. Review of systems: Patient sedated Active Medications Albuterol/Ipratropium (Ipratropium-Albuterol 3 Ml Neb) 3 ml INHALATION RT-Q4H [facility] Last Admin: 03/15/20 15:16 Dose: 3 ml Documented by: Albuterol/Ipratropium (Ipratropium-Albuterol 3 Ml Neb) 3 ml INHALATION RT-Q2H PRN PRN Reason: Shortness Of Breath Or Wheezing Atorvastatin Calcium (Atorvastatin 20 Mg Tab) 20 mg OG-TUBE HS [facility] Last Admin: 03/14/20 20:37 Dose: Not Given Documented by: Chlorhexidine Gluconate (Chlorhexidine Gluconate 15 Ml Cup) 15 ml MUCOUS MEM BID [facility] Last Admin: 03/15/20 10:42 Dose: 15 ml Documented by: Enoxaparin Sodium (Enoxaparin 60 Mg/0.6 Ml Syringe) 60 mg SQ BID [facility] Last Admin: 03/15/20 10:42 Dose: 60 mg Documented by: Ferrous Sulfate (Ferrous Sulfate Oral Elixir 300 Mg/5 Ml Cup) 300 mg PO BID- W/MEALS [facility] Last Admin: 03/15/20 15:34 Dose: Not Given Documented by: Folic Acid (Folic Acid 1 Mg Tab) 1 mg OG-TUBE DAILY [facility] Last Admin: 03/15/20 11:12 Dose: Not Given Documented by: Hydrocortisone (Hydrocortisone 20 Mg Tab) 20 mg PO BID [facility] Last Admin: 03/15/20 10:47 Dose: Not Given Documented by: Piperacillin Sod/Tazobactam (Sod 3.375 gm/ Sodium Chloride) 100 mls @ 25 mls/hr IVPB Q8HR [facility] Last Admin: 03/15/20 15:34 Dose: 25 mls/hr Documented by: Anidulafungin 100 mg/ Sodium (Chloride) 100 mls @ 84 mls/hr IVPB DAILY [facility] Last Admin: 03/15/20 10:39 Dose: 84 mls/hr Documented by: Sodium Chloride (Saline 0.9%) 1,000 mls @ 75 mls/hr IV .[id number] [facility] Last Admin: 03/15/20 11:13 Dose: 75 mls/hr Documented by: Parenteral Vitamin Supplement 10 ml/ Chromium/Copper/Manganese/Seleni/Zn 1 ml/Sodium Acetate 40 meq/Potassium Acetate 30 meq/Calcium Gluconate 1 gm/Magnesium Sulfate 0.75 gm/Amino Acids/Dextrose 1,057.5 mls @ 55 mls/hr IV .[id number] [facility] Last Admin: 03/15/20 12:37 Dose: 55 mls/hr Documented by: Norepinephrine Bitartrate 8 mg (/ Sodium Chloride) 258 mls @ 5.824 mls/hr IV .Q24H [facility]; Protocol Last Admin: 03/15/20 12:35 Dose: 0.34 mcg/kg/min, 39.606 mls/hr Documented by: Propofol 1,000 mg/ IV Solution 100 mls @ 0 mls/hr IV .Q0M [facility]; Protocol Last Admin: 03/15/20 16:51 Dose: 15 mcg/kg/min, 5.796 mls/hr Documented by: Insulin Aspart (Insulin Aspart (Novolog) 100 Unit/Ml Vial) 0 unit SQ Q6H [facility]; Protocol Last Admin: 03/15/20 11:26 Dose: Not Given Documented by: Metoclopramide HCl (Metoclopramide 5 Mg/Ml 2 Ml Vial) 10 mg IVP Q6HR PRN PRN Reason: Nausea and Vomiting Miscellaneous Information (Magnesium Replacement Protocol 1 Each Misc) 1 each MISCELLANE DAILY PRN; Protocol PRN Reason: Per Protocol Miscellaneous Information (Potassium Replacement Protocol 1 Each Misc) 1 each MISCELLANE DAILY PRN; Protocol PRN Reason: Per Protocol Ondansetron HCl (Ondansetron 4 Mg/2 Ml Vial) 4 mg IVP Q8HR PRN PRN Reason: Nausea And Vomiting Pantoprazole Sodium (Pantoprazole 40 Mg/10 Ml Vial) 40 mg IVP BID [facility] Last Admin: 03/15/20 10:42 Dose: 40 mg Documented by: Sodium Chloride (Sodium Chloride 0.9% Flush 10 Ml Syringe) 10 ml IV Q4HR PRN PRN Reason: PICC Line Sodium Chloride (Sodium Chloride 0.9% Flush 10 Ml Syringe) 10 ml IV WEEKLY [facility] Last Admin: 03/14/20 09:12 Dose: 10 ml Documented by: Sodium Chloride (Sodium Chloride 0.9% Flush 10 Ml Syringe) 20 ml IV Q4HR PRN PRN Reason: PICC Line Tamsulosin HCl (Tamsulosin 0.4 Mg Cap.Er.24h) 0.4 mg PO HS [facility] Last Admin: 03/14/20 20:37 Dose: Not Given Documented by: Thiamine HCl (Thiamine 100 Mg/Ml 2 Ml Vial) 100 mg IVP DAILY [facility] Last Admin: 03/15/20 10:43 Dose: 100 mg Documented by: Physical examination: VITAL SIGNS: 97.6, 102, 16, 114/56, 99% on the ventilator GENERAL: Laying in bed, intubated. Tracheostomy tube, edema EYES: Pupils equal. Conjunctiva normal. HEENT:, Dry oral cavity, OG tube NECK: JVD unable to assess; masses not palpable. Tracheostomy tube HEART: First and second heart sounds are normal; edema LUNGS: Respiratory rate increased; decreased breath sounds. ABDOMEN: Soft, distended , nontender, , area of subcutaneous swelling around the incision site. Lemus catheter PSYCH: Unable to assess NEUROLOGICAL: Occasional spontaneous eye opening. Pupils equal. INVESTIGATIONS, reviewed in the clinical context: March 15: White count 7.6 hemoglobin 8.6. Distal 68 potassium 3.8 creatinine 1.03 March 13: White count 18.2 hemoglobin 9.6 platelets 253 potassium 4.2 creatinine 1.15. Chest x-ray bilateral infiltrates and fluid March 12: White count 8.8 hemoglobin 9.3 ABG-pH 7.48 pO2 76 potassium 4.4 creatinine 0.82 March 11: White count 20.9 hemoglobin 9.9 platelets 393 potassium 4.2 crit 0.77 albumin 1.9 March 10: White count 22.6 hemoglobin 9.7 platelets 366potassium 4.1 creatinine 0.67 March 09: White count 18.2, hemoglobin 9.5, platelets 369 sodium 147 potassium 4.2 creatinine 0.77 March 08: White count 98.1 hemoglobin 19.3 platelets 329 sodium 148 potassium 3.2 right 126 creatinine 0.7 to albumin 1.9 March 07: White count 24 hemoglobin 9.8 platelets 366 potassium 3.7 creatinine 0.73 White count 16.4 hemoglobin 8.8 platelets 276 potassium 3.5 creatinine 0.71 Previous testing EEG shows evidence of encephalopathy Computed tomography scan of the brain-mild atrophy 2-D echocardiogram-EF 55-60% VQ scan-intermediate probability Chest CTA-suboptimal study. Doppler ultrasound-positive for thrombus within the distal popliteal vein White count 10.2 hemoglobin 14.2 potassium 3.6 B12 some 08 Previously AST 129 ALT 50 Computed tomography scan of the abdomen from January 08-possible colitis, diverticulitis, some esophagitis, hepatic steatosis Abdominal x-ray film personally reviewed by me shows ileus Sputum growing [place] Assessment: -Acute hypoxic respiratory failure, requiring ventilator support-slow to respond -Septic shock-currently on norepinephrine -Status post low anterior resection, for diverticulitis complication -Recommend aspiration pneumonia -Postop ileus-recovered -Chronic nicotine dependence patient cigarette smoker -Clinical emphysema, asymptomatic -Suspect alcoholic hepatitis -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 Repeat paracentesis. 4.5 L.-repeat paracentesis is 4.4 L.. Repeat paracentesis 4 L removed -Mild hyponatremia -Hypernatremia -Macrocytic anemia. -Acute DVT in the left distal popliteal vein -Acute alcohol withdrawal syndrome with improvement -Right lower lobe pneumonia -Mild protein calorie malnutrition from decreased oral intake -Tracheostomy tube placed on March 06 -Metabolic encephalopathy-no improvement -Dobbhoff tube placed and removed -TPN and lipids Plan: ICU-prognosis remains poor. TPN lipids. On the ventilator. Patient started on Anidulafungin. Thank you Dr. Lee
[2020-03-15] MEDS: ATORVASTATIN 20 MG TAB OG-TUBE SCH (20:09)
[2020-03-15] MEDS: TAMSULOSIN 0.4 MG CAP.ER.24H PO SCH (20:11)
--- NOTE | 2020-03-15 22:34 | PN ---
PROGRESS NOTE DATE OF SERVICE: 03/15/2020 REASON FOR FOLLOWUP: Aspiration pneumonia ( ). INTERVAL HISTORY: The patient is currently afebrile. The patient remains to be intubated on the vent. The patient is hemodynamically stable, not on pressor support. FiO2 is currently stable at 50%. No ( ) or diarrhea reported by nursing staff. PHYSICAL EXAMINATION: Blood pressure 117/74 with a pulse of 101, temperature 97.8. He is 100% on 50% FiO2. General description is a middle-aged male lying in bed in no distress. Respiratory system: Unlabored breathing, decreased breath sounds, no wheeze. Heart S1, S2. Regular rate and rhythm. Abdomen soft, no tenderness. LABS: BUN of 36, creatinine 1.73. White count 17. DIAGNOSTIC IMPRESSION AND PLAN: Patient with an elevated white count, multifactorial in this patient, possible from steroid effect, possible aspiration pneumonia and oropharyngeal candidiasis covered with Eraxis and Zosyn to continue and monitor clinical course closely. MMODL / IJN: [id number] /
[2020-03-16] MEDS: INSULIN ASPART (NovoLOG) 100 UNIT/ML VIAL SQ SCH ×4 (00:13→18:08)
[2020-03-16 00:14] LABS: Glucose,Whole Blood 130 mg/dL (75-99)
[2020-03-16] MEDS: SODIUM CHLORIDE 0.9% 1,000 ML IV SCH ×3 (00:14→20:11)
[2020-03-16] MEDS: IPRATROPIUM-ALBUTEROL 3 ML NEB INHALATION SCH ×7 (00:16→23:34)
[2020-03-16] MEDS: PIPERACILLIN-TAZOBACTAM 3.375 GM in SODIUM CHLORIDE 0.9% 100 ML IVPB SCH ×3 (00:26→15:57)
[2020-03-16] MEDS: NOREPINEPHRINE 8 MG in SODIUM CHLORIDE 0.9% 250 ML IV SCH ×2 (02:19→13:26)
[2020-03-16 05:09] LABS: ABG Base Excess -9.2 mmol/L; ABG HCO3 17 mmol/L (21-25); ABG PCO2 31 mmHg (35-45); ABG PH 7.34 (7.35-7.45); ABG PO2 140 mmHg (83-108); ABG TCO2 18 mmol/L (19-24); Allen Test Performed? Yes
[2020-03-16] MEDS: FERROUS SULFATE ORAL ELIXIR 300 MG/5 ML CUP PO SCH ×2 (05:31→15:58)
[2020-03-16 05:40] LABS: Glucose,Whole Blood 138 mg/dL (75-99)
[2020-03-16] MEDS: MVI, ADULT NO.4 WITH VIT K 10 ML, TRACE (CONC-1ML/DOSE) 1 ML, SODIUM ACETATE 40 MEQ, PO... IV SCH ×7 (05:41)
[2020-03-16 05:53] LABS: Anisocytosis Slight; HCT 27.4 % (39.0-53.0); HGB 8.2 gm/dL (13.0-17.5); Hypochromasia Marked; MCH 31.6 pg (25.0-35.0); MCHC 29.7 g/dL (31.0-37.0); MCV 106.5 fL (80.0-100.0); Macrocytosis Marked; Mean Platelet Volume 11.8; Platelet Count 203 k/uL (150-450); RBC 2.58 m/uL (4.30-5.90); RDW 16.1 % (11.5-15.5); WBC 18.2 k/uL (3.8-10.6)
[2020-03-16 06:05] LABS: African American GFR (CKD) >90 (>60 ml/min/1.73 sqM); Anion Gap 2 mmol/L; Blood Urea Nitrogen 33 mg/dL (9-20); Calcium 7.4 mg/dL (8.4-10.2); Carbon Dioxide 18 mmol/L (22-30); Chloride 121 mmol/L (98-107); Glucose 140 mg/dL (74-99); Magnesium 1.9 mg/dL (1.6-2.3); Non-African American GFR(CKD) >90 (>60 ml/min/1.73 sqM); Phosphorus 2.7 mg/dL (2.5-4.5); Potassium 3.8 mmol/L (3.5-5.1); Sodium 141 mmol/L (137-145)
[2020-03-16] MEDS: POTASSIUM CHLORIDE 10 MEQ in WATER FOR INJECTION 1 100ML.BAG IVPB SCH ×2 (06:52→09:08)
--- NOTE | 2020-03-16 07:15 | P.PN ---
Subjective Progress Note Date: 03/16/20 On 03/10/2020 and seeing this patient for a follow-up in the intensive care unit. The patient was admitted on 02/07/2020. The patient is postop AP resection for strictures of diverticular disease. The patient developed clinical deterioration with abdominal sepsis. The patient also had a cardiac pulmonary arrest that was brief and the patient was intubated and placed on a mechanical ventilator and the patient was transferred to the intensive care unit. The acute cardiopulmonary arrest that occurred on 02/26/2020 related to septic shock and the patient required a brief CPR and the patient required intubation and fluid resuscitation and pressors. The patient also developed ascites. Due to his prolonged mechanical ventilation, the patient ultimately had a tracheostomy tube insertion on 03/06/2020. He underwent paracentesis with removal of 8 L of abdominal fluid from the peritoneal cavity on 02/27/2020. And following that a repeat paracentesis was done on 03/05/2026 liters of fluid. Th e patient currently is on a mechanical ventilator and the patient is being ventilated through his tracheostomy tube. The patient is an assist-control mode of ventilation at the rate of 10 with tidal volume of 100 and FiO2 of 35% with a PEEP of 5. The patient is receiving IV fluids to D5 water at the rate of 75 mL an hour. The Dobbhoff catheter was removed and the patient was given an NG was attempted and was not insertable. As such, TPN was recommended. The patient had developed some abdominal distention earlier. Last paracentesis was done yesterday and a total of 4.4 L of ascitic fluid was removed from the abdomen. The patient otherwise doing reasonably well. The patient had also diagnosed having a left lower extremity DVT treated with SC Lovenox. The patient also is currently on TPN. The patient is on stress dose hydrocortisone 50 mg IV every 12 hours, Lovenox 60 mg subcu twice a day and oral vancomycin 125 mg by mouth 4 times a day for some component of enteritis. During the course of the treatment the patient was treated for aspiration pneumonia and abdominal wall cellulitis. The patient had developed diarrhea due to antibiotic exposure and the patient completed the 2 week course of Zosyn and the patient is currently on oral vancomycin. Stool for C. diff has been negative. ID is on the case. on today's evaluation of 03/10/2020, the patient was switched a CPAP at a pressure of 5 pressure support and a PEEP of 5 with an FiO2 of 30%. He is able to generate tidal volumes of about 700. the chest x-ray showing a small left- sided pleural effusion. NG tube is in a good location. The patient has a PICC line right upper extremity. There is a small left-sided pleural effusion for now. The patient has a Bivona tracheostomy tube #8. He is calm and comfortable. No significant orotracheal secretions. Lemus catheter in place. The patient has a PICC line in the right upper extremity and currently is receiving TPN for nutritional support. He also has an NG tube in place. He is not receiving any enteral feeding at this point in time. He does have diffuse anasarca. Abdominal wound is dry clean and intact. [place] are still in place. No active drainage. He does have a fecal management system in place and output is in order of minimal probably a few cc on an hourly basis. on today's evaluation of 03/11/2020, the patient is still on CPAP and he was on CPAP pressure support mode overnight at a pressure of 5 cm of water. He is generating tidal volume of 380-400. No tachypnea. No respiratory distress. His blood gases from today showed a pH of 7.48 with a pCO2 of 27 and O2 of 72. The chest x-ray from this morning shows that the patient has a adequate positioning of the tracheostomy tube. Lungs are well expanded. There is no evidence of any pneumothorax. There is a small left-sided pleural effusion. The patient has a PICC line in the right upper extremity. NG tube is in a good location. TPN was discontinued yesterday and the patient was restarted back on enteral feeding and currently is taking right femoral high protein at the rate of 35 mL an hour. He is arousable. He is awake. He follows simple commands. Is extremely debilitated and weak. The fecal management system was discontinued as the patient was not having any further bouts of diarrhea. His body weight is 67 kg. The patient is still on oral vancomycin. This will be discussed with IV. His white cell count is at 20.9. on 03/12/2020, the patient remains on a pressure support mode with a pressure support of 5 and a PEEP of 5. He is resting comfortably on a mechanical ventilator. His chest x-ray from today shows development of a left-sided pleural effusion/consolidation. He has a PICC line in his left upper extremity. No significant orotracheal secretions. While on trach collar, it was suspected that the patient has aspirated. Based on that, the patient was placed back on the pressure support mode and the patient is currently off that she'll feeds. . He has no diarrhea for now. His white cell count is 18.8. Oral vancomycin was discontinued yesterday.the blood gases from today showed a pH of 7.48 with a pCO2 of 27 and pO2 of 76. Renal function is stable. The patient is arousable. He is profoundly weak. He has diffuse anasarca. On today's evaluation, of 03/13/2020, the patient unfortunately has decompensated. He is having episodic aspiration. The chest x-ray is looking worse and the patient bilateral pulmonary infiltrates and effusion slightly worse on the right. Nevertheless, he remains on a spontaneous breathing with a pressure support of 5 and a PEEP of 5 with an FiO2 of 65%. He is hemodynamically stable. He did aspirated around 4:00 AM. He has an NG tube in place. She'll feeds are currently on hold. Abdomen is slightly distended. There is some tube feed material that being suctioned from his tracheostomy tube sites. He became also tachycardic. His heart is the 120s. His blood pressure also dropped. He does have diffuse anasarca. And responding nicely to Lasix was given yesterday and his that fluid balance over the past 24 hours is at -3.9 L. He is arousable. He is extremely weak and debilitated. on 03/14/2020, the patient is being seen for a follow-up. Events from yesterday were noted. The patient had another bout of aspiration. Enterofeeding was completely stopped and the patient is currently receiving on TPN for nutritional support. NG tube is in place with minimal output at this point in time. There was some feeding material was suctioned out from his tracheostomy tube. He became hypotensive. He became tachycardic. He went also into respiratory distress. I had to put him back on assist control mode with a tidal volume of 500 and FiO2 of 100% with a PEEP of 5 and the rate of 10. The chest x-ray from today showed back or lower lobe infiltrates. The blood. From today showed a pH of 7.45 with a pCO2 of 26 and pO2 of 67. As such, the patient is profoundly hypoxic and 100% FiO2. He is also on Umberto-Synephrine running at 02.7 mcg/kg/m. Urine outputis low in the order of 5-10 mL's an hour. Maintenance IV fluids is D5 W at 10 mL an hour.he is less responsive compared to yesterday. He is afebrile. Ultrasound the abdomen was done yesterday and showed minimal amount of ascites. Flat film of the abdomen was also done that showed a high grade small bowel obstruction. This was communicated with the general surgeon. 03/15/2020, the patient is being seen for a follow-up. Unfortunately the patient is back to have a being septic secondary to aspiration pneumonia. His chest x-ray showing bilateral pulmonary infiltrates and the patient is back on assist control mode of ventilation with a tidal volume of 500 and FiO2 of 60% with a PEEP of 15 and a rate of 10. Blood gases from today showed a pH of 7.23 with a pCO2 of 37 and pO2 of 130. Chest x-ray showing bilateral lower lobe pulmonary infiltrates. The patient is currently on propofol running at 25 mcg/kg per minute is calm and comfortable and symptoms with the mechanical ventilator. He remains nothing by mouth. Is on TPN running at 55 mL an hour. He is also on norepinephrine infusion running at 0.38 mcg/kg per minute. He received several IV fluid boluses yesterday regarding his sepsis and hypotension. The patient is still having diffuse anasarca. He has somewhat abdominal distention probably related to recurrence of his abdominal ascites. On from yesterday showed ileus/high-grade bowel obstruction. The patient remains nothing by mouth. NG tube is in place and output from the NG tube is in order of minimal. Urine output is in order of 30 mL an hour. By the coverage is in a combination of Zosyn and Eraxis. Chest x-ray from today is showing bilateral lower lobe pulmonary infiltrates. No other significant events overnight. He is acidotic. Serum bicarbonate down to 16. Renal function stable with a creatinine of 1.06. White cell count is at 17.6. 03/16/2020, the patient is being seen for a follow-up. He is sedated with propofol running at 10 mcg/kg per minute is calm and comfortable and quite suggestive the mechanical ventilator. I think the sedation can be weaned down further. Note that the patient aspirated and became septic again. He is currently on assist control mode at the rate of 10 with a tidal volume of 500 and FiO2 of 50% with a PEEP of 5. The blood gases showed a pH of 7.34 with a pCO2 of 31 and a pO2 of 140. Chest x-ray shows some improvement in the lower lobe pulmonary infiltrates. Hemodynamically, the patient is still on pressors. Norepinephrine is running at 0.2 mcg/kg per minute. He is able to produce adequate amount of urine output. His sputum Gram stain and culture showed gram- negative bacillus and final cultures still pending. The patient remains on Zosyn and Eraxis. White cell count is stable at 18.2. He remains on cortisone and the patient will be given stress dose hydrocortisone for now. He remains on TPN for nutritional support. He has diffuse anasarca. He has also developed some recurrent ascites which we kept on brain at this point and time nontender the size of the ascites was probably not contributing to his respiratory status. The last time of the abdomen yesterday showed some ongoing ileus. Sounds remain quite hypoactive. NG tube is in place. Output from the NG tube is in order of minimal. Objective - Vital Signs Vital signs: Vital Signs Temp 98.8 F 03/16/20 04:00 Pulse 87 03/16/20 06:00 Resp 14 03/16/20 06:00 BP 111/77 03/16/20 05:15 Pulse Ox 100 03/16/20 06:00 Intake & Output 03/15/20 03/16/20 03/16/20 18:59 06:59 18:59 Intake Total 0821.982 9308.295 Output Total 468 740 Balance 5394.402 9957.295 Weight 64.4 kg 70.1 kg Intake: IV 1346 1674 Anidulafungin 100 mg In 100 Sodium Chloride 0.9% 100 ml @ 84 mls/hr IVPB DAILY [facility] Rx#:[id number] MVI 660 Mvi, Adult No.4 with Vit 55 K 10 ml Trace (Conc-1Ml/ Dose) 1 ml In Amino Acid 5%-D15w+Lytes*E* 1,000 ml @ 30 mls/hr IV .Q24H [facility] Rx#:[id number] Mvi, Adult No.4 with Vit 55 K 10 ml Trace (Conc-1Ml/ Dose) 1 ml Sodium Acetate 40 meq Potassium Acetate 30 meq Calcium Gluconate 1 gm Magnesium Sulfate gm 0.75 gm In Amino Acid 5%-D15w 1,000 ml @ 55 mls /hr IV .[id number] [facility] Rx#: [id number] Piperacillin-Tazobactam 3 200 .375 gm In Sodium Chloride 0.9% 100 ml @ 25 mls/hr IVPB Q8HR [facility] Rx# :[id number] Pressure bag 36 39 Sodium Chloride 0.9% 1, 900 975 000 ml @ 75 mls/hr IV . [id number] [facility] Rx#:[id number] Intake, IV Titration 398.319 0289.295 Amount Mvi, Adult No.4 with Vit 0 938.667 K 10 ml Trace (Conc-1Ml/ Dose) 1 ml Sodium Acetate 40 meq Potassium Acetate 30 meq Calcium Gluconate 1 gm Magnesium Sulfate gm 0.75 gm In Amino Acid 5%-D15w 1,000 ml @ 55 mls /hr IV .[id number] [facility] Rx#: [id number] Norepinephrine 8 mg In 257.301 619.149 Sodium Chloride 0.9% 250 ml @ 0.05 MCG/KG/MIN 5. 824 mls/hr IV .Q24H [facility] Rx#:[id number] propofoL 1,000 mg In 74.537 74.479 Empty Bag 1 bag @ Titrate IV .Q0M [facility] Rx#: [id number] Output: Urine 468 740 Other: Voiding Method Indwelling Catheter Indwelling Catheter ABP, PAP, CO, CI - Last Documented Arterial Blood Pressure 119/56 - Exam GENERAL EXAM: Intubated sedated 64-year-old white male, trached to the mechanical ventilator on assist-control mode of ventilation, and the patient is a #[address] Emaciated. His body mass index is 21.6. HEAD: Normocephalic/atraumatic. EYES: Normal reaction of pupils, equal size. Conjunctiva pink, sclera white. NOSE: Clear with pink turbinates. THROAT: No erythema or exudates. NECK: No masses, no JVD, no thyroid enlargement, no adenopathy. Midline tracheostomy in place, patient connected to the ventilator with assist control mode of ventilation CHEST: No chest wall deformity. Symmetrical expansion. LUNGS: Equal air entry with no crackles, wheeze, rhonchi or dullness. CVS: Regular rate and rhythm, normal S1 and S2, no gallops, no murmurs, no rubs ABDOME distended and firm on today's exam , mild tenderness to palpation, rigidity, and abdominal incision is clean dry and intact, well approximated and healed, yvonne are in place, intact, the surgical yvonne are still in place EXTREMITIES: No clubbing, 2+ upper and lower extremity edema, patient has a wee ping edema with the drainage from the catheter insertion sites no cyanosis, 2+ pulses and upper and lower extremities. Picc line is in the RUE, diffuse anasarca in all 4 extremities mainly the lower extremities and in the thighs MUSCULOSKELETAL: Significant motor weakness in all 4 extremities. The patient has diffuse anasarca and edema in all 4 extremities. He is well sedated for now. Strength cannot be assessed accurately. He was also afebrile stimulation. SPINE: No scoliosis or deformity SKIN: No rashes CENTRAL NERVOUS SYSTEM: The patient is sedated with propofol and the patient is calm and comfortable. - Labs CBC & Chem 7: 03/16/20 05:30 03/16/20 05:30 Labs: Abnormal Lab Results - Last 24 Hours (Table) 03/15/20 03/15/20 03/16/20 Range/Units 11:25 17:19 00:12 WBC (3.8-10.6) k/uL RBC (4.30-5.90) m/uL Hgb (13.0-17.5) gm/dL Hct (39.0-53.0) % MCV (80.0-100.0) fL MCHC (31.0-37.0) g/dL RDW (11.5-15.5) % Macrocytosis ABG pH (7.35-7.45) ABG pCO2 (35-45) mmHg ABG pO2 (83-108) mmHg ABG HCO3 (21-25) mmol/L ABG Total CO2 (19-24) mmol/L ABG O2 Saturation (94-97) % Chloride (98-107) mmol/L Carbon Dioxide (22-30) mmol/L BUN (9-20) mg/dL Glucose (74-99) mg/dL POC Glucose (mg/dL) 121 H 141 H 130 H (75-99) mg/dL Calcium (8.4-10.2) mg/dL 03/16/20 03/16/20 03/16/20 Range/Units 05:05 05:30 05:30 WBC 18.2 H (3.8-10.6) k/uL RBC 2.58 L (4.30-5.90) m/uL Hgb 8.2 L (13.0-17.5) gm/dL Hct 27.4 L (39.0-53.0) % MCV 106.5 H (80.0-100.0) fL MCHC 29.7 L (31.0-37.0) g/dL RDW 16.1 H (11.5-15.5) % Macrocytosis Marked A ABG pH 7.34 L (7.35-7.45) ABG pCO2 31 L (35-45) mmHg ABG pO2 140 H (83-108) mmHg ABG HCO3 17 L (21-25) mmol/L ABG Total CO2 18 L (19-24) mmol/L ABG O2 Saturation 100.0 H (94-97) % Chloride 121 H (98-107) mmol/L Carbon Dioxide 18 L (22-30) mmol/L BUN 33 H (9-20) mg/dL Glucose 140 H (74-99) mg/dL POC Glucose (mg/dL) (75-99) mg/dL Calcium 7.4 L (8.4-10.2) mg/dL 03/16/20 Range/Units 05:39 WBC (3.8-10.6) k/uL RBC (4.30-5.90) m/uL Hgb (13.0-17.5) gm/dL Hct (39.0-53.0) % MCV (80.0-100.0) fL MCHC (31.0-37.0) g/dL RDW (11.5-15.5) % Macrocytosis ABG pH (7.35-7.45) ABG pCO2 (35-45) mmHg ABG pO2 (83-108) mmHg ABG HCO3 (21-25) mmol/L ABG Total CO2 (19-24) mmol/L ABG O2 Saturation (94-97) % Chloride (98-107) mmol/L Carbon Dioxide (22-30) mmol/L BUN (9-20) mg/dL Glucose (74-99) mg/dL POC Glucose (mg/dL) 138 H (75-99) mg/dL Calcium (8.4-10.2) mg/dL Microbiology - Last 24 Hours (Table) 03/13/20 20:10 Gram Stain - Preliminary Sputum Sputum Culture - Preliminary Gram Neg Bacilli Assessment and Plan Plan: #1. Acute hypoxic respiratory failure secondary to ongoing aspiration. The patient has developed recurrent aspiration. Chest x-ray shows clearly development of new bilateral lower lobe pulmonary infiltrates. The patient was being fed and static an NG tube.. The patient has gram-negative bacillus sputum. He aspirated frequently due to his ongoing ileus/bowel obstruction. Enterofeeding was discontinued and the patient is only on TPN. Meanwhile, he remains on IV Zosyn. Chest x-rays improving. The oxygenation is also improving and the patient will be weaned down on his PEEP and FiO2. He is currently sedat ed. He still requiring pressors. #2. Acute cardiac pulmonary arrest on 02/26/2020 related to septic shock, patient required a brief CPR, was intubated and fluid resuscitated, and she is currently off pressors and he is hemodynamicaly stable #3. Increased bibasilar opacities and a chest x-ray shows bilateral pleural effusions.this is consistent with aspiration pneumonia, and the patient has a gram-negative bacillus in his sputum. #4. recurrent bowel obstruction. The patient has a high-grade bowel obstruction. NG tube is in place. Abdomen is distended. He is currently nothing by mouth. He also had episodic paracentesis for recurrent ascites. THE ABDOMEN WAS DONE THAT SHOWED SMALL AMOUNT OF ASCITIC FLUID. We will discuss the need for today another paracentesis with general surgery. The repeat x-ray of the abdomen shows ileus versus bowel obstruction.. The stomach is slightly distended. NG tube is in a good location. Doppler from the NG tube is minimal at this point in time. W #5. Massive ascites, status post high-volume paracentesis, on 02/27/2020 with removal of 8 L of ascitic fluid, and repeat paracentesis on 2019 would removal of 6 L of fluid and then 4.5 liters on 03/09/2020, slight abdominal distention today's evaluation. There is some recurrence distention the abdomen and possibly some recurrent ascites. #6. Non-anion gap metabolic acidosis related to septic shock, current serum bicarbonate her 18 #7. hypotension secondary to above. The patient is likely in septic shock again. The patient is on norepinephrine infusion running at 0.2 mcg/kg per minute. His #8. Elevated d-dimer, nonspecific, doubt possibility of pulmonary embolism. CTA chest was suboptimal but did not reveal any evidence of central pulmonary embolism, VQ scan showed intermediate probability for pulmonary embolism, patient was found to have a new left leg DVT, Currently on Lovenox #9. Diverticulitis, status post lower anterior resection, takedown of splenic flexure and partial omentectomy #10. Alcohol abuse with alcohol withdrawal #11. Recent history dark black stools the possibility of upper GI bleeding, negative EGD #12. Altered mental status, related to metabolic encephalopathy, neurology is following. Off sedation and the patient has a component of a metabolic encephalopathy, sleepy, and unable to follow commands, withdraws from pain, and he seems to be more alert. #13. History of diverticular disease #14. History of EtOH abuse #15 chronic anemia, multifactorial, hemoglobin stable at 8.2 #17 leukocytosis, currently on 18.2 Plan Keep the patient nothing by mouth Continue TPN for nutritional support IV Zosyn and Eraxis for fungal coverage. Awaiting the final culture results from the sputum. Check sputum Gram stain and culture Continue pressors to monitor norepinephrine was weaned down to 0.18 and further weaning will be done today based on his blood pressure response Drop the FiO2 down to 40% and PEEP down to 9 and try to keep saturation remains above 95% Will monitor the hemodynamics and the blood pressure Lovenox 60 mg subcu twice a day Keep the patient sedated and try to wean and discontinue today as the patient continues to be deeply sedated and is quite 6 is a mechanical ventilator. Possible repeat paracentesis and this was discussed with general surgery 3 suspect status post hydrocortisone Condition is extremely critical and prognosis poor baseline above-mentioned comorbidities. This is a critically care evaluation was done and more than 30 minutes. Critical care evaluation
--- NOTE | 2020-03-16 08:12 | XR ---
EXAMINATION TYPE: XR chest 1V portable DATE OF EXAM: 03/16/2020 COMPARISON: 03/15/2020 INDICATION: Pneumonia tracheostomy TECHNIQUE: Single frontal view of the chest is obtained. FINDINGS: The heart size is normal. The pulmonary vasculature is normal. Mild bibasilar infiltrates are present. These improved over the interval. Tracheostomy tube is in the midline with the tip above eber. Nasogastric tube transverses the thora x. IMPRESSION: 1. Improving bibasilar infiltrates. 2. Tracheostomy tube and nasogastric tube stable in position
[2020-03-16] MEDS: ANIDULAFUNGIN 100 MG in SODIUM CHLORIDE 0.9% 100 ML IVPB SCH (09:09)
[2020-03-16] MEDS: HYDROCORTISONE SUCCINATE 100 MG/2 ML VIAL IV SCH ×2 (09:10→15:58)
[2020-03-16] MEDS: PANTOPRAZOLE 40 MG/10 ML VIAL IVP SCH ×2 (09:10→19:58)
[2020-03-16] MEDS: ENOXAPARIN 60 MG/0.6 ML SYRINGE SQ SCH ×2 (09:10→20:00)
[2020-03-16] MEDS: CHLORHEXIDINE GLUCONATE 15 ML CUP MUCOUS MEM SCH ×2 (09:10→19:58)
[2020-03-16] MEDS: FOLIC ACID 1 MG TAB OG-TUBE SCH (09:10)
[2020-03-16] MEDS: THIAMINE 100 MG/ML 2 ML VIAL IVP SCH (09:11)
--- NOTE | 2020-03-16 11:32 | P.PN ---
Progress Note - Text Progress Note Date: 03/16/20 Patient has no acute changes. His white count is 18,000. He is currently on the ventilator. He appears to be more awake today. On exam her vital signs are stable. Abdomen is soft with distention due to ascites. Status post sigmoid colon resection for diverticulitis with abscess. Patient w ill receive supportive care. His condition is guarded.
[2020-03-16 13:56] LABS: Glucose,Whole Blood 133 mg/dL (75-99)
--- NOTE | 2020-03-16 16:07 | P.PN ---
Progress Note - Text Progress Note Date: 03/16/20 - Chief Complaint Abdominal surgery History of presenting complaint: This is a pleasant 64-year-old patient of . Patient been having complication to his diverticulitis. computed tomography scan on January 08. Showed some possible stricture. Hepatic steatosis. February 06- undergone low anterior resection. Epidural for pain control.patient had elevated d-dimer. Pulmonary embolism felt to be unlikely. CT was suboptimal. VQ scan was intermediate probability. Leg DVT treated with IV heparin. Had some dark stools.also patient had had altered mental status. [place] to be encephalopathy.computed tomography scan of the brain was unremarkable. EGD-no evidence of bleeding. Patient more awake after dose of baclofen cutback. changed over to xarelto.x-ray showing ileus. Patient did start having bowel movements. Repeat computed tomography scan of abdomen showed possible enteritis./Colitis.as abdomen appeared distended. Lemus catheter was placed. No urine retention.-patient become hypotensive. Had a brief cardiac and pulmonary arrest Moved to ICU. Had to be intubated. Drips include norepinephrine, vasopressin, propofol. NG tube to suction.also treated for aspiration pneumonia and abdominal wall cellulitis.ascitic fluid that was tapped was unremarkable.4.5 L of acetic fluid removed. On March 06 underwent tracheostomy.Dophoff tube was placed and then had to be removed because of abdominal distention. Patient felt to have recurrent aspiration. Today. RPM-gedkjmbety-VsO5 40s a PEEP of 9. On propofol and norepinephrine. NG tube. TPN and lipids. Review of systems: Patient sedated Active Medications Albuterol/Ipratropium (Ipratropium-Albuterol 3 Ml Neb) 3 ml INHALATION RT-Q4H [facility] Last Admin: 03/16/20 15:26 Dose: 3 ml Documented by: Albuterol/Ipratropium (Ipratropium-Albuterol 3 Ml Neb) 3 ml INHALATION RT-Q2H PRN PRN Reason: Shortness Of Breath Or Wheezing Atorvastatin Calcium (Atorvastatin 20 Mg Tab) 20 mg OG-TUBE HS [facility] Last Admin: 03/15/20 20:09 Dose: Not Given Documented by: Chlorhexidine Gluconate (Chlorhexidine Gluconate 15 Ml Cup) 15 ml MUCOUS MEM BID [facility] Last Admin: 03/16/20 09:10 Dose: 15 ml Documented by: Enoxaparin Sodium (Enoxaparin 60 Mg/0.6 Ml Syringe) 60 mg SQ BID [facility] Last Admin: 03/16/20 09:10 Dose: 60 mg Documented by: Ferrous Sulfate (Ferrous Sulfate Oral Elixir 300 Mg/5 Ml Cup) 300 mg PO BID- W/MEALS [facility] Last Admin: 03/16/20 15:58 Dose: Not Given Documented by: Folic Acid (Folic Acid 1 Mg Tab) 1 mg OG-TUBE DAILY [facility] Last Admin: 03/16/20 09:10 Dose: Not Given Documented by: Hydrocortisone Sodium Succinate (Hydrocortisone Succinate 100 Mg/2 Ml Vial) 50 mg IV Q8HR [facility] Last Admin: 03/16/20 15:58 Dose: 50 mg Documented by: Piperacillin Sod/Tazobactam (Sod 3.375 gm/ Sodium Chloride) 100 mls @ 25 mls/hr IVPB Q8HR [facility] Last Admin: 03/16/20 15:57 Dose: 25 mls/hr Documented by: Anidulafungin 100 mg/ Sodium (Chloride) 100 mls @ 84 mls/hr IVPB DAILY [facility] Last Admin: 03/16/20 09:09 Dose: 84 mls/hr Documented by: Sodium Chloride (Saline 0.9%) 1,000 mls @ 75 mls/hr IV .[id number] [facility] Last Admin: 03/16/20 13:27 Dose: 75 mls/hr Documented by: Norepinephrine Bitartrate 8 mg (/ Sodium Chloride) 258 mls @ 5.824 mls/hr IV .Q24H [facility]; Protocol Last Admin: 03/16/20 13:26 Dose: 0.08 mcg/kg/min, 9.319 mls/hr Documented by: Propofol 1,000 mg/ IV Solution 100 mls @ 0 mls/hr IV .Q0M [facility]; Protocol Last Titration: 03/16/20 07:16 Dose: 0 mcg/kg/min, 0 mls/hr Documented by: Parenteral Vitamin Supplement 10 ml/ Chromium/Copper/Manganese/Seleni/Zn 1 ml/Sodium Acetate 40 meq/Potassium Acetate 30 meq/Calcium Gluconate 1 gm/Magnesium Sulfate 0.75 gm/Potassium Phosphate 10 mmol/Amino Acids/Dextrose 1,060.8333 mls @ 55 mls/hr IV .[id number] [facility] Insulin Aspart (Insulin Aspart (Novolog) 100 Unit/Ml Vial) 0 unit SQ Q6H [facility]; Protocol Last Admin: 03/16/20 14:30 Dose: Not Given Documented by: Metoclopramide HCl (Metoclopramide 5 Mg/Ml 2 Ml Vial) 10 mg IVP Q6HR PRN PRN Reason: Nausea and Vomiting Miscellaneous Information (Magnesium Replacement Protocol 1 Each Mis) 1 each MISCELLANE DAILY PRN; Protocol PRN Reason: Per Protocol Miscellaneous Information (Potassium Replacement Protocol 1 Each Mis) 1 each MISCELLANE DAILY PRN; Protocol PRN Reason: Per Protocol Ondansetron HCl (Ondansetron 4 Mg/2 Ml Vial) 4 mg IVP Q8HR PRN PRN Reason: Nausea And Vomiting Pantoprazole Sodium (Pantoprazole 40 Mg/10 Ml Vial) 40 mg IVP BID [facility] Last Admin: 03/16/20 09:10 Dose: 40 mg Documented by: Sodium Chloride (Sodium Chloride 0.9% Flush 10 Ml Syringe) 10 ml IV Q4HR PRN PRN Reason: PICC Line Sodium Chloride (Sodium Chloride 0.9% Flush 10 Ml Syringe) 10 ml IV WEEKLY [facility] Last Admin: 03/14/20 09:12 Dose: 10 ml Documented by: Sodium Chloride (Sodium Chloride 0.9% Flush 10 Ml Syringe) 20 ml IV Q4HR PRN PRN Reason: PICC Line Tamsulosin HCl (Tamsulosin 0.4 Mg Cap.Er.24h) 0.4 mg PO HS [facility] Last Admin: 03/15/20 20:11 Dose: Not Given Documented by: Thiamine HCl (Thiamine 100 Mg/Ml 2 Ml Vial) 100 mg IVP DAILY [facility] Last Admin: 03/16/20 09:11 Dose: 100 mg Documented by: Physical examination: VITAL SIGNS: 97.6, 98, 14, 130/65, 99% on the ventilator GENERAL: Laying in bed, intubated. Tracheostomy tube, edema EYES: Pupils equal. Conjunctiva normal. HEENT:, Dry oral cavity, OG tube NECK: JVD unable to assess; masses not palpable. Tracheostomy tube HEART: First and second heart sounds are normal; edema LUNGS: Respiratory rate increased; decreased breath sounds. ABDOMEN: Soft, distended , nontender, , area of subcutaneous swelling around the incision site. Lemus catheter PSYCH: Unable to assess NEUROLOGICAL: Sedated Pupils equal. INVESTIGATIONS, reviewed in the clinical context: March 16: White count 8.2 hemoglobin 8.2 potassium 3.8 creatinine 0.69. Chest x-ray-some improvement reported March 15: White count 7.6 hemoglobin 8.6. Distal 68 potassium 3.8 creatinine 1.03 March 13: White count 18.2 hemoglobin 9.6 platelets 253 potassium 4.2 creatinine 1.15. Chest x-ray bilateral infiltrates and fluid March 12: White count 8.8 hemoglobin 9.3 ABG-pH 7.48 pO2 76 potassium 4.4 creatinine 0.82 March 11: White count 20.9 hemoglobin 9.9 platelets 393 potassium 4.2 crit 0 .77 albumin 1.9 March 10: White count 22.6 hemoglobin 9.7 platelets 366potassium 4.1 creatinine 0.67 March 09: White count 18.2, hemoglobin 9.5, platelets 369 sodium 147 potassium 4.2 creatinine 0.77 March 08: White count 98.1 hemoglobin 19.3 platelets 329 sodium 148 potassium 3.2 right 126 creatinine 0.7 to albumin 1.9 March 07: White count 24 hemoglobin 9.8 platelets 366 potassium 3.7 creatinine 0.73 White count 16.4 hemoglobin 8.8 platelets 276 potassium 3.5 creatinine 0.71 Previous testing EEG shows evidence of encephalopathy Computed tomography scan of the brain-mild atrophy 2-D echocardiogram-EF 55-60% VQ scan-intermediate probability Chest CTA-suboptimal study. Doppler ultrasound-positive for thrombus within the distal popliteal vein White count 10.2 hemoglobin 14.2 potassium 3.6 B12 some 08 Previously AST 129 ALT 50 Computed tomography scan of the abdomen from January 08-possible colitis, diverticulitis, some esophagitis, hepatic steatosis Abdominal x-ray film personally reviewed by me shows ileus Sputum growing [place] Assessment: -Acute hypoxic respiratory failure, requiring ventilator support-slow to respond -Septic shock-currently on norepinephrine -Status post low anterior resection, for diverticulitis complication -Recommend aspiration pneumonia -Postop ileus-recovered -Chronic nicotine dependence patient cigarette smoker -Clinical emphysema, asymptomatic -Suspect alcoholic hepatitis -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 Repeat paracentesis. 4.5 L.-repeat paracentesis is 4.4 L.. Repeat paracentesis 4 L removed -Mild hyponatremia -Hypernatremia -Macrocytic anemia. -Acute DVT in the left distal popliteal vein -Acute alcohol withdrawal syndrome with improvement -Right lower lobe pneumonia -Mild protein calorie malnutrition from decreased oral intake -Tracheostomy tube placed on March 06 -Metabolic encephalopathy-no improvement -Dobbhoff tube placed and removed -TPN and lipids Plan: ICU-prognosis remains poor. TPN lipids. On the ventilator. on Anidulafungin. Follow with renal consultants Thank you Dr. Lee
[2020-03-16 18:08] LABS: Glucose,Whole Blood 127 mg/dL (75-99)
[2020-03-16] MEDS: ATORVASTATIN 20 MG TAB OG-TUBE SCH (19:56)
[2020-03-16] MEDS: TAMSULOSIN 0.4 MG CAP.ER.24H PO SCH (19:57)
[2020-03-17 00:13] LABS: Glucose,Whole Blood 131 mg/dL (75-99)
--- NOTE | 2020-03-17 00:24 | PN ---
PROGRESS NOTE DATE OF SERVICE: 03/16/2020 REASON FOR FOLLOWUP: Oropharyngeal candidiasis and Klebsiella pneumonia and aspiration pneumonia. INTERVAL HISTORY: The patient is currently afebrile. The patient is hemodynamically stable on pressor support. Patient's FiO2 is currently at 40%. No significant purulent secretion through the ET or any diarrhea reported by the nursing staff. PHYSICAL EXAMINATION: Blood pressure 133/64, pulse of 97, temperature 98. He is 96% on 40% FiO2. General description is a middle-aged male lying in bed in no distress. RESPIRATORY SYSTEM: Unlabored breathing, decreased intensity of breath sounds. No wheeze. HEART: S1, S2. Regular rate and rhythm. ABDOMEN: Soft, no tenderness. LABS: Hemoglobin 8.2, white count 18.2, BUN of 33, creatinine 0.69. Sputum with Klebsiella pneumoniae, sensitive to Zosyn. DIAGNOSTIC IMPRESSION AND PLAN: 1. Patient with component of aspiration pneumonia in this patient with sputum showing Klebsiella sensitive to Zosyn to continue. 2. Patient with oropharyngeal candidiasis covered with Eraxis. White count monitored closely. Continue with supportive care. MMODL / IJN: [id number] /
[2020-03-17] MEDS: INSULIN ASPART (NovoLOG) 100 UNIT/ML VIAL SQ SCH ×4 (00:41→17:28)
[2020-03-17] MEDS: HYDROCORTISONE SUCCINATE 100 MG/2 ML VIAL IV SCH ×3 (00:49→21:25)
[2020-03-17] MEDS: PIPERACILLIN-TAZOBACTAM 3.375 GM in SODIUM CHLORIDE 0.9% 100 ML IVPB SCH ×3 (00:50→17:20)
[2020-03-17] MEDS: MVI, ADULT NO.4 WITH VIT K 10 ML, TRACE (CONC-1ML/DOSE) 1 ML, SODIUM ACETATE 40 MEQ, PO... IV SCH ×16 (02:03→21:24)
[2020-03-17] MEDS: IPRATROPIUM-ALBUTEROL 3 ML NEB INHALATION SCH ×6 (03:11→23:36)
[2020-03-17 04:34] LABS: Anisocytosis Slight; Basophils % (A) 0 %; Eosinophils % (A) 0 %; HCT 28.1 % (39.0-53.0); HGB 8.2 gm/dL (13.0-17.5); Hypochromasia Marked; Lymphocytes # (A) 1.1 k/uL (1.0-4.8); Lymphocytes % (A) 6 %; MCH 30.7 pg (25.0-35.0); MCHC 29.2 g/dL (31.0-37.0); MCV 105.3 fL (80.0-100.0); Macrocytosis Moderate; Mean Platelet Volume 11.8; Monocytes # (A) 0.5 k/uL (0-1.0); Monocytes % (A) 3 %; Neutrophils # (A) 15.9 k/uL (1.3-7.7); Neutrophils % (A) 90 %; Platelet Count 185 k/uL (150-450); Poikilocytosis Slight; RBC 2.67 m/uL (4.30-5.90); RDW 16.2 % (11.5-15.5); WBC 17.6 k/uL (3.8-10.6)
[2020-03-17 04:52] LABS: African American GFR (CKD) >90 (>60 ml/min/1.73 sqM); Anion Gap 3 mmol/L; Blood Urea Nitrogen 26 mg/dL (9-20); Calcium 7.9 mg/dL (8.4-10.2); Carbon Dioxide 18 mmol/L (22-30); Chloride 121 mmol/L (98-107); Glucose 138 mg/dL (74-99); Non-African American GFR(CKD) >90 (>60 ml/min/1.73 sqM); Phosphorus 2.4 mg/dL (2.5-4.5); Potassium 3.8 mmol/L (3.5-5.1); Sodium 142 mmol/L (137-145)
[2020-03-17 05:22] LABS: ABG Base Excess -7.5 mmol/L; ABG HCO3 18 mmol/L (21-25); ABG Oxygen Saturation 98.3 % (94-97); ABG PCO2 30 mmHg (35-45); ABG PH 7.38 (7.35-7.45); ABG PO2 96 mmHg (83-108); ABG TCO2 19 mmol/L (19-24); Allen Test Performed? Yes
[2020-03-17] MEDS: FERROUS SULFATE ORAL ELIXIR 300 MG/5 ML CUP PO SCH ×2 (06:38→17:21)
[2020-03-17] MEDS: POTASSIUM CHLORIDE 10 MEQ in WATER FOR INJECTION 1 100ML.BAG IVPB SCH ×2 (06:39→09:45)
[2020-03-17] MEDS ORDERED: Phosphorus Replacement Protoco 1 EACH MISC MISCELLANE ONE (08:15)
[2020-03-17] MEDS ORDERED: SODIUM PHOSPHATE 10 MMOL in SODIUM CHLORIDE 0.9% 100 ML IVPB ONE (08:30)
[2020-03-17] MEDS ORDERED: FUROSEMIDE 10 MG/ML 4 ML VIAL IV STA (09:02)
[2020-03-17] MEDS: ENOXAPARIN 60 MG/0.6 ML SYRINGE SQ SCH ×2 (09:36→21:24)
--- NOTE | 2020-03-17 09:36 | XR ---
EXAMINATION TYPE: XR chest 1V portable DATE OF EXAM: 03/17/2020 COMPARISON: 03/16/2020 HISTORY: Cough TECHNIQUE: Single frontal view of the chest is obtained. FINDINGS: Central line, tracheostomy tube, and NG tube stable. Chronic rib deformities are seen and is stable bilateral lower lobe infiltrate and small effusion. Underlying COPD noted. No pneumothorax. Atherosclerotic change aorta. Heart size stable. IMPRESSION: Stable bilateral lower lobe infiltrate and small effusion
[2020-03-17] MEDS: FOLIC ACID 1 MG TAB OG-TUBE SCH (09:46)
[2020-03-17 09:47] LABS: Glucose,Whole Blood 122 mg/dL (75-99)
[2020-03-17] MEDS: PANTOPRAZOLE 40 MG/10 ML VIAL IVP SCH ×2 (09:47→21:24)
[2020-03-17] MEDS: THIAMINE 100 MG/ML 2 ML VIAL IVP SCH (09:47)
[2020-03-17] MEDS: ALBUMIN HUMAN 25% 50 ML in EMPTY BAG 1 BAG IVPB SCH ×2 (09:48→12:01)
[2020-03-17] MEDS ORDERED: CHLORHEXIDINE GLUCONATE 15 ML CUP MUCOUS MEM ONE (10:10)
[2020-03-17] MEDS: CHLORHEXIDINE GLUCONATE 15 ML CUP MUCOUS MEM SCH (10:12)
[2020-03-17] MEDS: ANIDULAFUNGIN 100 MG in SODIUM CHLORIDE 0.9% 100 ML IVPB SCH (10:25)
--- NOTE | 2020-03-17 11:08 | P.PN ---
Subjective Progress Note Date: 03/17/20 CHIEF COMPLAINT: Diverticulitis HISTORY OF PRESENT ILLNESS: Patient is status post lower anterior resection, takedown of splenic flexure and partial omentectomy on 02/07/2020. The morning of 02/26/20 patient was transferred to the ICU after STEVE KUMAR was called. Patient had become hypothermic and hypotensive. Patient become unresponsive they lost pulse and CPR was initiated. Patient did require to be intubated. Patient is in the ICU. He is currently on CPAP. He is requiring Levophed. He is scheduled to have another paracentesis today. He did have a bowel movement yesterday. He is currently on TPN. He had 1400 mL bilious output through NG tube. Afebrile. WBC 17.6 PHYSICAL EXAM: VITAL SIGNS: Reviewed. GENERAL: Well-developed in no acute distress. HEENT: No sclera icterus. Extraocular movements grossly intact. Moist buccal mucosa. Head is atraumatic, normocephalic. Trach site clean dry and intact ABDOMEN: distended Incision clean dry and intact. NEUROLOGIC: Patient is awake and able to open eyes. Unable to follow commands per nursing staff ASSESSMENT: 1. Cardiopulmonary arrest and acute hypoxic respiratory failure secondary to septic shock. 2. Diverticulitis status post lower anterior resection, takedown of splenic flexure and partial omentectomy on 02/07/2020 3. Patient's abdominal distention likely related to ileus, ascites from his liver cirrhosis and possible hernia. 4. Alcohol abuse with alcohol withdrawal 5. New left leg DVT during this admission 6. ileus 7. Black stools. Resolved. No evidence of upper GI bleed on EGD. EGD was normal 8. Altered mental status likely due to cardiac arrest and superimposed toxic metabolic encephalopathy. Followed by neurology 9. Possible aspiration pneumonia 10. Severe protein calorie malnutrition 11. Liver cirrhosis with abdominal ascites status post multiple paracentesis during this admission 12. Patient status post tracheostomy for acute hypoxic respiratory failure PLAN: -Continue supportive care -Continue TPN for nutrition support -Continue NG tube for decompression -Overall condition guarded Physician Education Director note has been reviewed by physician. Signing provider agrees with the documented findings, assessment, and plan of care. Objective - Vital Signs Vital signs: Vital Signs Temp 97.5 F L 03/17/20 08:00 Pulse 96 03/17/20 11:00 Resp 16 03/17/20 10:00 BP 116/80 03/17/20 09:15 Pulse Ox 97 03/17/20 10:00 Intake & Output 03/16/20 03/17/20 03/17/20 18:59 06:59 18:59 Intake Total 1336.806 8191.681 782.96 Output Total 1855 665 180 Balance -480.679 5089.681 602.96 Weight 68.8 kg Intake: IV 1058 1674 749 Albumin Human 25% 50 ml 50 In Empty Bag 1 bag @ 50 mls/hr IVPB Q1H [facility] Rx#: [id number] Anidulafungin 100 mg In 100 Sodium Chloride 0.9% 100 ml @ 84 mls/hr IVPB DAILY [facility] Rx#:[id number] MVI 660 165 Piperacillin-Tazobactam 3 100 100 .375 gm In Sodium Chloride 0.9% 100 ml @ 25 mls/hr IVPB Q8HR [facility] Rx# :[id number] Potassium Chloride 10 meq 100 In Water For Injection 1 100ml.bag @ 100 mls/hr IVPB Q1H [facility] Rx#: [id number] Pressure bag 33 39 9 Sodium Chloride 0.9% 1, 825 975 225 000 ml @ 75 mls/hr IV . [id number] [facility] Rx#:[id number] Sodium Phosphate 10 mmol 100 In Sodium Chloride 0.9% 100 ml @ 50 mls/hr IVPB ONCE ONE Rx#:[id number] Intake, IV Titration 149.586 31.681 33.96 Amount Norepinephrine 8 mg In 143.532 31.681 33.96 Sodium Chloride 0.9% 250 ml @ 0.05 MCG/KG/MIN 5. 824 mls/hr IV .Q24H [facility] Rx#:[id number] propofoL 1,000 mg In 6.054 Empty Bag 1 bag @ Titrate IV .Q0M [facility] Rx#: [id number] Output: Gastric Drainage 1075 Urine 780 665 180 Other: Voiding Method Indwelling Catheter Indwelling Catheter Indwelling Catheter # Bowel Movements 1 ABP, PAP, CO, CI - Last Documented Arterial Blood Pressure 129/66 - Labs CBC & Chem 7: 03/17/20 04:17 03/17/20 04:17 Labs: Abnormal Lab Results - Last 24 Hours (Table) 1203/16/20 03/17/20 Range/Units 13:53 18:07 00:11 WBC (3.8-10.6) k/uL RBC (4.30-5.90) m/uL Hgb (13.0-17.5) gm/dL Hct (39.0-53.0) % MCV (80.0-100.0) fL MCHC (31.0-37.0) g/dL RDW (11.5-15.5) % Neutrophils # (1.3-7.7) k/uL ABG pCO2 (35-45) mmHg ABG HCO3 (21-25) mmol/L ABG O2 Saturation (94-97) % Chloride (98-107) mmol/L Carbon Dioxide (22-30) mmol/L BUN (9-20) mg/dL Creatinine (0.66-1.25) mg/dL Glucose (74-99) mg/dL POC Glucose (mg/dL) 133 H 127 H 131 H (75-99) mg/dL Calcium (8.4-10.2) mg/dL Phosphorus (2.5-4.5) mg/dL 03/17/20 03/17/20 03/17/20 Range/Units 04:17 04:17 05:18 WBC 17.6 H (3.8-10.6) k/uL RBC 2.67 L (4.30-5.90) m/uL Hgb 8.2 L (13.0-17.5) gm/dL Hct 28.1 L (39.0-53.0) % MCV 105.3 H (80.0-100.0) fL MCHC 29.2 L (31.0-37.0) g/dL RDW 16.2 H (11.5-15.5) % Neutrophils # 15.9 H (1.3-7.7) k/uL ABG pCO2 30 L (35-45) mmHg ABG HCO3 18 L (21-25) mmol/L ABG O2 Saturation 98.3 H (94-97) % Chloride 121 H (98-107) mmol/L Carbon Dioxide 18 L (22-30) mmol/L BUN 26 H (9-20) mg/dL Creatinine 0.60 L (0.66-1.25) mg/dL Glucose 138 H (74-99) mg/dL POC Glucose (mg/dL) (75-99) mg/dL Calcium 7.9 L (8.4-10.2) mg/dL Phosphorus 2.4 L (2.5-4.5) mg/dL 03/17/20 Range/Units 09:28 WBC (3.8-10.6) k/uL RBC (4.30-5.90) m/uL Hgb (13.0-17.5) gm/dL Hct (39.0-53.0) % MCV (80.0-100.0) fL MCHC (31.0-37.0) g/dL RDW (11.5-15.5) % Neutrophils # (1.3-7.7) k/uL ABG pCO2 (35-45) mmHg ABG HCO3 (21-25) mmol/L ABG O2 Saturation (94-97) % Chloride (98-107) mmol/L Carbon Dioxide (22-30) mmol/L BUN (9-20) mg/dL Creatinine (0.66-1.25) mg/dL Glucose (74-99) mg/dL POC Glucose (mg/dL) 122 H (75-99) mg/dL Calcium (8.4-10.2) mg/dL Phosphorus (2.5-4.5) mg/dL Microbiology - Last 24 Hours (Table) 03/13/20 20:10 Gram Stain - Final Sputum Sputum Culture - Final Klebsiella pneumoniae
[2020-03-17 11:59] LABS: Glucose,Whole Blood 118 mg/dL (75-99)
--- NOTE | 2020-03-17 12:19 | US ---
Ultrasound-guided paracentesis. DATE OF EXAM: 03/17/2020 CLINICAL HISTORY: Ascites The procedure was discussed with the patient. The risks, complications, benefits, and alternatives we re discussed and any questions were answered. Informed consent was obtained. The patient was placed s upine on the ultrasound table and prepped and draped in the usual sterile fashion. All elements of maximal barrier technique were utilized. Under ultrasound guidance, access into the right lower quadrant was obtained, via the paracentesis catheter system and direct ultrasound guidanc e. Approximately 5.7 liters of straw-colored fluid was removed. The patient was stable throughout the pr ocedure and remained stable upon discharge from Department of Radiology. IMPRESSION: Successful paracentesis under ultrasound guidance.
--- NOTE | 2020-03-17 15:42 | P.GSCN ---
History of Present Illness Consult date: 03/17/20 Reason for Consult: Term paracentesis, possible shunt. Requesting physician: Hiram Lee History of present illness: This is a 64-year-old male who came in early February for a scheduled lower anterior resection, takedown of splenic flexure and partial omentectomy for diverticulitis with Dr. Lee. Postop day 1 and was found that the patient had a pint of peppermint schnapps next to the bedside, and noted the patient had a significant alcohol history. He also developed clinical deterioration with abdominal sepsis. On 02/26/2020 the patient had an acute cardiopulmonary arrest which CPR was initiated and the patient was intubated and placed on mechanical ventilation and transferred to the ICU. Due to prolonged mechanical ventilation the patient ultimately had a tracheostomy tube inserted o n 03/06/2020. He is nonresponsive, is unable to follow any commands. He has been on leave of bed, CPAP, he has an NG tube. He remains on TPN for nutritional support. During this hospitalization the patient has developed abdominal ascites which he has had to undergo paracentesis several times on 04/28/2019 removal 8 L, 03/05/20 6 liters, 03/09/20 4.5 L, and again today 5.7 liters. Due to the frequent paracentesis, vascular surgery has been consulted for possible Ha shunt. Review of Systems Review of systems unable to be obtained due to patient's mental status changes. Past Medical History Past Medical History: No Reported History Additional Past Medical History / Comment(s): varicose veins, vitiligo, Diarrhea, diverticulitis. History of Any Multi-Drug Resistant Organisms: None Reported Past Surgical History: Appendectomy, Orthopedic Surgery Additional Past Surgical History / Comment(s): knee surgery(fx), 03-23-16 total lt hip (fx) Past Anesthesia/Blood Transfusion Reactions: No Reported Reaction Additional Past Anesthesia/Blood Transfusion Reaction / Comm: unknown family hx- adopted Past Psychological History: No Psychological Hx Reported Smoking Status: Current every day smoker Past Alcohol Use History: Daily Additional Past Alcohol Use History / Comment(s): STARTED SMOKING AT AGE 22, SMOKES 1/2 PPD. DRINKS 2-3 BEERS/DAY Past Drug Use History: None Reported - Past Family History Mother Family Medical History: Unable to Obtain Additional Family Medical History / Comment(s): PT WAS ADOPTED Father Family Medical History: Unable to Obtain Additional Family Medical History / Comment(s): PT WAS ADOPTED Medications and Allergies Home Medications Medication Instructions Recorded Confirmed Type Baclofen [Lioresal] 20 mg PO BID 02/04/20 02/07/20 History Ciprofloxacin HCl [Cipro] 500 mg PO BID 02/04/20 02/07/20 History Metoprolol Succinate [Toprol XL] 25 mg PO DAILY 02/04/20 02/07/20 History metroNIDAZOLE [Flagyl] 500 mg PO TID 02/04/20 02/07/20 History Allergies Allergy/AdvReac Type Severity Reaction Status Date / Time No Known Allergies Allergy Verified 02/07/20 08:20 Surgical - Exam Vital Signs Temp Pulse Resp BP Pulse Ox 98.3 F 109 H 16 131/71 96 02/07/20 08:19 02/07/20 08:19 02/07/20 08:19 02/07/20 08:19 02/07/20 08:19 VITAL SIGNS: Reviewed. GENERAL: Well-developed in no acute distress. Tracheotostomy present. HEENT: No sclera icterus. Extraocular movements grossly intact. Moist buccal mucosa. Head is atraumatic, normocephalic. Trach site clean dry and intact ABDOMEN: Nondisteded, surgical Incision clean dry and intact. NEUROLOGIC: Patient is awake and able to open eyes. Unable to follow commands Results Abdominal ultrasound paracentesis completed today with removal of 5.7 L of straw colored fluid Chest x-ray shows stable bilateral lower lobe infiltrate and small effusion - Labs 03/17/20 04:17 03/17/20 04:17 Abnormal Lab Results - Last 24 Hours (Table) 03/16/20 03/17/20 03/17/20 Range/Units 18:07 00:11 04:17 WBC (3.8-10.6) k/uL RBC (4.30-5.90) m/uL Hgb (13.0-17.5) gm/dL Hct (39.0-53.0) % MCV (80.0-100.0) fL MCHC (31.0-37.0) g/dL RDW (11.5-15.5) % Neutrophils # (1.3-7.7) k/uL ABG pCO2 (35-45) mmHg ABG HCO3 (21-25) mmol/L ABG O2 Saturation (94-97) % Chloride 121 H (98-107) mmol/L Carbon Dioxide 18 L (22-30) mmol/L BUN 26 H (9-20) mg/dL Creatinine 0.60 L (0.66-1.25) mg/dL Glucose 138 H (74-99) mg/dL POC Glucose (mg/dL) 127 H 131 H (75-99) mg/dL Calcium 7.9 L (8.4-10.2) mg/dL Phosphorus 2.4 L (2.5-4.5) mg/dL 03/17/20 03/17/20 03/17/20 Range/Units 04:17 05:18 09:28 WBC 17.6 H (3.8-10.6) k/uL RBC 2.67 L (4.30-5.90) m/uL Hgb 8.2 L (13.0-17.5) gm/dL Hct 28.1 L (39.0-53.0) % MCV 105.3 H (80.0-100.0) fL MCHC 29.2 L (31.0-37.0) g/dL RDW 16.2 H (11.5-15.5) % Neutrophils # 15.9 H (1.3-7.7) k/uL ABG pCO2 30 L (35-45) mmHg ABG HCO3 18 L (21-25) mmol/L ABG O2 Saturation 98.3 H (94-97) % Chloride (98-107) mmol/L Carbon Dioxide (22-30) mmol/L BUN (9-20) mg/dL Creatinine (0.66-1.25) mg/dL Glucose (74-99) mg/dL POC Glucose (mg/dL) 122 H (75-99) mg/dL Calcium (8.4-10.2) mg/dL Phosphorus (2.5-4.5) mg/dL 03/17/20 Range/Units 11:58 WBC (3.8-10.6) k/uL RBC (4.30-5.90) m/uL Hgb (13.0-17.5) gm/dL Hct (39.0-53.0) % MCV (80.0-100.0) fL MCHC (31.0-37.0) g/dL RDW (11.5-15.5) % Neutrophils # (1.3-7.7) k/uL ABG pCO2 (35-45) mmHg ABG HCO3 (21-25) mmol/L ABG O2 Saturation (94-97) % Chloride (98-107) mmol/L Carbon Dioxide (22-30) mmol/L BUN (9-20) mg/dL Creatinine (0.66-1.25) mg/dL Glucose (74-99) mg/dL POC Glucose (mg/dL) 118 H (75-99) mg/dL Calcium (8.4-10.2) mg/dL Phosphorus (2.5-4.5) mg/dL Diabetes panel 03/17/20 Range/Units 04:17 Sodium 142 (137-145) mmol/L Potassium 3.8 (3.5-5.1) mmol/L Chloride 121 H (98-107) mmol/L Carbon Dioxide 18 L (22-30) mmol/L BUN 26 H (9-20) mg/dL Creatinine 0.60 L (0.66-1.25) mg/dL Glucose 138 H (74-99) mg/dL Calcium 7.9 L (8.4-10.2) mg/dL Calcium panel 03/17/20 Range/Units 04:17 Calcium 7.9 L (8.4-10.2) mg/dL Phosphorus 2.4 L (2.5-4.5) mg/dL Pituitary panel 03/17/20 Range/Units 04:17 Sodium 142 (137-145) mmol/L Potassium 3.8 (3.5-5.1) mmol/L Chloride 121 H (98-107) mmol/L Carbon Dioxide 18 L (22-30) mmol/L BUN 26 H (9-20) mg/dL Creatinine 0.60 L (0.66-1.25) mg/dL Glucose 138 H (74-99) mg/dL Calcium 7.9 L (8.4-10.2) mg/dL Adrenal panel 03/17/20 Range/Units 04:17 Sodium 142 (137-145) mmol/L Potassium 3.8 (3.5-5.1) mmol/L Chloride 121 H (98-107) mmol/L Carbon Dioxide 18 L (22-30) mmol/L BUN 26 H (9-20) mg/dL Creatinine 0.60 L (0.66-1.25) mg/dL Glucose 138 H (74-99) mg/dL Calcium 7.9 L (8.4-10.2) mg/dL Assessment and Plan Assessment: 1. Liver cirrhosis with abdominal ascites status post multiple paracentesis during this admission 2. Cardiopulmonary arrest and acute hypoxic respiratory failure secondary to septic shock. 3. Diverticulitis status post lower anterior resection, takedown of splenic flexure and partial omentectomy on 02/07/2020 4. Alcohol abuse with alcohol withdrawal 5. New left leg DVT during this admission 6. ileus 7. Black stools. Resolved. No evidence of upper GI bleed on EGD. EGD was normal 8. Altered mental status likely due to cardiac arrest and superimposed toxic metabolic encephalopathy. Followed by neurology 9. Possible aspiration pneumonia 10. Severe protein calorie malnutrition 11. Patient status post tracheostomy for acute hypoxic respiratory failure Plan: Ha shunt and TIPS procedures are not done here by vascular surgical services. Dr. Bailey spoke with interventional radiology from [facility]. Consider possible transfer to [facility] for possible shunt placement for multiple large-volume paracentesis due to ascites if they feel he is a candidate. Further recommendations to follow. Thank you for this consultation and allowing us to take part in the plan of care during his hospital stay. The impression and plan of care has been dictated as directed. Dr. Bailey I performed a history and examination of this patient, discussed the same with the dictator. I agree with the dictator's note ,documented as a scribe. Any additional findings or plans will be noted.
[2020-03-17] MEDS: SODIUM CHLORIDE 0.9% 1,000 ML IV SCH (17:21)
[2020-03-17 17:25] LABS: Glucose,Whole Blood 143 mg/dL (75-99)
--- NOTE | 2020-03-17 18:10 | P.PN ---
Subjective Progress Note Date: 03/17/20 Principal diagnosis: diverticulitis, post op DVT, VQ indeterminate for PE Pt is having para when seen, pt is awake but not attempting to communicate, no non-verbal cues Objective - Vital Signs Vital signs: Vital Signs Temp 97.9 F 03/17/20 12:00 Pulse 100 03/17/20 15:20 Resp 17 03/17/20 15:15 BP 33/21 03/17/20 13:45 Pulse Ox 98 03/17/20 15:15 Intake & Output 03/16/20 03/17/20 03/17/20 18:59 06:59 18:59 Intake Total 0522.742 3093.681 1189.96 Output Total 1855 665 04597 Balance -728.413 9055.250 -2334.04 Weight 68.8 kg 68.8 kg Intake: IV 1058 1674 1156 Albumin Human 25% 50 ml 50 In Empty Bag 1 bag @ 50 mls/hr IVPB Q1H [facility]ANA Rx#: [id number] Anidulafungin 100 mg In 100 100 Sodium Chloride 0.9% 100 ml @ 84 mls/hr IVPB DAILY [facility]ANA Rx#:[id number] MVI 660 385 Piperacillin-Tazobactam 3 100 100 .375 gm In Sodium Chloride 0.9% 100 ml @ 25 mls/hr IVPB Q8HR [facility] Rx# :[id number] Potassium Chloride 10 meq 100 In Water For Injection 1 100ml.bag @ 100 mls/hr IVPB Q1H [facility]ANA Rx#: [id number] Pressure bag 33 39 21 Sodium Chloride 0.9% 1, 825 975 300 000 ml @ 75 mls/hr IV . [id number] JOANA Rx#:[id number] Sodium Phosphate 10 mmol 100 In Sodium Chloride 0.9% 100 ml @ 50 mls/hr IVPB ONCE ONE Rx#:[id number] Intake, IV Titration 149.586 31.681 33.96 Amount Norepinephrine 8 mg In 143.532 31.681 33.96 Sodium Chloride 0.9% 250 ml @ 0.05 MCG/KG/MIN 5. 824 mls/hr IV .Q24H [facility]ANA Rx#:[id number] propofoL 1,000 mg In 6.054 Empty Bag 1 bag @ Titrate IV .Q0M JOANA Rx#: [id number] Output: Gastric Drainage 1075 Drainage 4000 Right Lower Lateral 4000 Abdomen Paracentesis site Urine 922 825 3031 Other 5700 Other: Voiding Method Indwelling Catheter Indwelling Catheter Indwelling Catheter # Bowel Movements 1 ABP, PAP, CO, CI - Last Documented Arterial Blood Pressure 124/50 - Constitutional General appearance: Present: no acute distress, thin - EENT Eyes: Present: anicteric sclerae, EOMI - Respiratory Details: trach, resp are unlabored - Cardiovascular Heart sounds: normal: S1, S2 - Gastrointestinal General gastrointestinal: Present: decreased bowel sounds - Musculoskeletal Musculoskeletal: Present: generalized weakness - Psychiatric Psychiatric Comment(s): Alert, calm, did not answer any questions - Labs CBC & Chem 7: 03/17/20 04:17 03/17/20 04:17 Labs: Abnormal Lab Results - Last 24 Hours (Table) 03/16/20 03/17/20 03/17/20 Range/Units 18:07 00:11 04:17 WBC (3.8-10.6) k/uL RBC (4.30-5.90) m/uL Hgb (13.0-17.5) gm/dL Hct (39.0-53.0) % MCV (80.0-100.0) fL MCHC (31.0-37.0) g/dL RDW (11.5-15.5) % Neutrophils # (1.3-7.7) k/uL ABG pCO2 (35-45) mmHg ABG HCO3 (21-25) mmol/L ABG O2 Saturation (94-97) % Chloride 121 H (98-107) mmol/L Carbon Dioxide 18 L (22-30) mmol/L BUN 26 H (9-20) mg/dL Creatinine 0.60 L (0.66-1.25) mg/dL Glucose 138 H (74-99) mg/dL POC Glucose (mg/dL) 127 H 131 H (75-99) mg/dL Calcium 7.9 L (8.4-10.2) mg/dL Phosphorus 2.4 L (2.5-4.5) mg/dL 03/17/20 03/17/20 03/17/20 Range/Units 04:17 05:18 09:28 WBC 17.6 H (3.8-10.6) k/uL RBC 2.67 L (4.30-5.90) m/uL Hgb 8.2 L (13.0-17.5) gm/dL Hct 28.1 L (39.0-53.0) % MCV 105.3 H (80.0-100.0) fL MCHC 29.2 L (31.0-37.0) g/dL RDW 16.2 H (11.5-15.5) % Neutrophils # 15.9 H (1.3-7.7) k/uL ABG pCO2 30 L (35-45) mmHg ABG HCO3 18 L (21-25) mmol/L ABG O2 Saturation 98.3 H (94-97) % Chloride (98-107) mmol/L Carbon Dioxide (22-30) mmol/L BUN (9-20) mg/dL Creatinine (0.66-1.25) mg/dL Glucose (74-99) mg/dL POC Glucose (mg/dL) 122 H (75-99) mg/dL Calcium (8.4-10.2) mg/dL Phosphorus (2.5-4.5) mg/dL 03/17/20 03/17/20 Range/Units 11:58 17:23 WBC (3.8-10.6) k/uL RBC (4.30-5.90) m/uL Hgb (13.0-17.5) gm/dL Hct (39.0-53.0) % MCV (80.0-100.0) fL MCHC (31.0-37.0) g/dL RDW (11.5-15.5) % Neutrophils # (1.3-7.7) k/uL ABG pCO2 (35-45) mmHg ABG HCO3 (21-25) mmol/L ABG O2 Saturation (94-97) % Chloride (98-107) mmol/L Carbon Dioxide (22-30) mmol/L BUN (9-20) mg/dL Creatinine (0.66-1.25) mg/dL Glucose (74-99) mg/dL POC Glucose (mg/dL) 118 H 143 H (75-99) mg/dL Calcium (8.4-10.2) mg/dL Phosphorus (2.5-4.5) mg/dL - Imaging and Cardiology Chest x-ray: report reviewed Assessment and Plan (1) Deep vein thrombosis of left lower extremity Narrative/Plan: Cont with lovenox BID. Monitor for s/s bleeding. Plan would be for recheck doppler of LLE and CTA to assess DVT/?PE in 3 mo to give final recs re: duration of anticoagulation Current Visit: Yes Status: Acute Priority: High Code(s): I82.402 - ACUTE EMBOLISM AND THOMBOS UNSP DEEP VEINS OF L LOW EXTREM SNOMED Code(s): 161605917 (2) Anemia Narrative/Plan: Stable Hgb, no transfusion needed at this time. Has been stated on folic acid. Current Visit: Yes Status: Acute Priority: High Code(s): D64.9 - ANEMIA, UNSPECIFIED SNOMED Code(s): 636978985
--- NOTE | 2020-03-17 20:28 | P.PN ---
Progress Note - Text Progress Note Date: 03/17/20 - Chief Complaint Abdominal surgery History of presenting complaint: This is a pleasant 64-year-old patient of . Patient been having complication to his diverticulitis. computed tomography scan on January 08. Showed some possible stricture. Hepatic steatosis. February 06- undergone low anterior resection. Epidural for pain control.patient had elevated d-dimer. Pulmonary embolism felt to be unlikely. CT was suboptimal. VQ scan was intermediate probability. Leg DVT treated with IV heparin. Had some dark stools.also patient had had altered mental status. [place] to be encephalopathy.computed tomography scan of the brain was unremarkable. EGD-no evidence of bleeding. Patient more awake after dose of baclofen cutback. changed over to xarelto.x-ray showing ileus. Patient did start having bowel movements. Repeat computed tomography scan of abdomen showed possible enteritis./Colitis.as abdomen appeared distended. Lemus catheter was placed. No urine retention.-patient become hypotensive. Had a brief cardiac and pulmonary arrest Moved to ICU. Had to be intubated. Drips include norepinephrine, vasopressin, propofol. NG tube to suction.also treated for aspiration pneumonia and abdominal wall cellulitis.ascitic fluid that was tapped was unremarkable.4.5 L of acetic fluid removed. On March 06 underwent tracheostomy.Dophoff tube was placed and then had to be removed because of abdominal distention. Patient felt to have recurrent aspiration. Today. GIV-nbkphylies-ZpA5 40s a PEEP of 5. On norepinephrine. NG tube. TPN and lipids. Review of systems: Patient sedated Active Medications Albuterol/Ipratropium (Ipratropium-Albuterol 3 Ml Neb) 3 ml INHALATION RT-Q4H [facility] Last Admin: 03/17/20 15:04 Dose: 3 ml Documented by: Albuterol/Ipratropium (Ipratropium-Albuterol 3 Ml Neb) 3 ml INHALATION RT-Q2H PRN PRN Reason: Shortness Of Breath Or Wheezing Atorvastatin Calcium (Atorvastatin 20 Mg Tab) 20 mg OG-TUBE HS [facility] Last Admin: 03/16/20 19:56 Dose: Not Given Documented by: Enoxaparin Sodium (Enoxaparin 60 Mg/0.6 Ml Syringe) 60 mg SQ BID [facility] Last Admin: 03/17/20 09:36 Dose: Not Given Documented by: Ferrous Sulfate (Ferrous Sulfate Oral Elixir 300 Mg/5 Ml Cup) 300 mg PO BID-W /MEALS [facility] Last Admin: 03/17/20 17:21 Dose: 300 mg Documented by: Folic Acid (Folic Acid 1 Mg Tab) 1 mg OG-TUBE DAILY [facility] Last Admin: 03/17/20 09:46 Dose: 1 mg Documented by: Hydrocortisone Sodium Succinate (Hydrocortisone Succinate 100 Mg/2 Ml Vial) 50 mg IV Q12HR [facility] Last Admin: 03/17/20 09:47 Dose: 50 mg Documented by: Piperacillin Sod/Tazobactam (Sod 3.375 gm/ Sodium Chloride) 100 mls @ 25 mls/hr IVPB Q8HR [facility] Last Admin: 03/17/20 17:20 Dose: 25 mls/hr Documented by: Anidulafungin 100 mg/ Sodium (Chloride) 100 mls @ 84 mls/hr IVPB DAILY [facility] Last Admin: 03/17/20 10:25 Dose: 84 mls/hr Documented by: Sodium Chloride (Saline 0.9%) 1,000 mls @ 75 mls/hr IV .[id number] [facility] Last Admin: 03/17/20 17:21 Dose: 75 mls/hr Documented by: Norepinephrine Bitartrate 8 mg (/ Sodium Chloride) 258 mls @ 5.824 mls/hr IV .Q24H [facility]; Protocol Last Titration: 03/17/20 10:40 Dose: 0 mcg/kg/min, 0 mls/hr Documented by: Propofol 1,000 mg/ IV Solution 100 mls @ 0 mls/hr IV .Q0M [facility]; Protocol Last Titration: 03/16/20 07:16 Dose: 0 mcg/kg/min, 0 mls/hr Documented by: Parenteral Vitamin Supplement 10 ml/ Chromium/Copper/Manganese/Seleni/Zn 1 ml/Sodium Acetate 40 meq/Potassium Acetate 30 meq/Calcium Gluconate 1 gm/Magnesium Sulfate 0.75 gm/Potassium Phosphate 10 mmol/Amino Acids/Dextrose 1,060.8333 mls @ 55 mls/hr IV .[id number] [facility] Last Admin: 03/17/20 02:03 Dose: 55 mls/hr Documented by: Insulin Aspart (Insulin Aspart (Novolog) 100 Unit/Ml Vial) 0 unit SQ Q6H [facility]; Protocol Last Admin: 03/17/20 17:28 Dose: 2 unit Documented by: Metoclopramide HCl (Metoclopramide 5 Mg/Ml 2 Ml Vial) 10 mg IVP Q6HR PRN PRN Reason: Nausea and Vomiting Miscellaneous Information (Magnesium Replacement Protocol 1 Each Misc) 1 each MISCELLANE DAILY PRN; Protocol PRN Reason: Per Protocol Miscellaneous Information (Potassium Replacement Protocol 1 Each Misc) 1 each MISCELLANE DAILY PRN; Protocol PRN Reason: Per Protocol Ondansetron HCl (Ondansetron 4 Mg/2 Ml Vial) 4 mg IVP Q8HR PRN PRN Reason: Nausea And Vomiting Pantoprazole Sodium (Pantoprazole 40 Mg/10 Ml Vial) 40 mg IVP BID [facility] Last Admin: 03/17/20 09:47 Dose: 40 mg Documented by: Sodium Chloride (Sodium Chloride 0.9% Flush 10 Ml Syringe) 10 ml IV Q4HR PRN PRN Reason: PICC Line Sodium Chloride (Sodium Chloride 0.9% Flush 10 Ml Syringe) 10 ml IV WEEKLY [facility] Last Admin: 03/14/20 09:12 Dose: 10 ml Documented by: Sodium Chloride (Sodium Chloride 0.9% Flush 10 Ml Syringe) 20 ml IV Q4HR PRN PRN Reason: PICC Line Tamsulosin HCl (Tamsulosin 0.4 Mg Cap.Er.24h) 0.4 mg PO HS [facility] Last Admin: 03/16/20 19:57 Dose: Not Given Documented by: Thiamine HCl (Thiamine 100 Mg/Ml 2 Ml Vial) 100 mg IVP DAILY [facility] Last Admin: 03/17/20 09:47 Dose: 100 mg Documented by: Physical examination: VITAL SIGNS: 97.2, 112, 16, 127/50, 98% on the ventilator GENERAL: Laying in bed, opens eyes slowly. Tracheostomy tube, edema EYES: Pupils equal. Conjunctiva normal. HEENT:, Dry oral cavity, OG tube NECK: JVD unable to assess; masses not palpable. Tracheostomy tube HEART: First and second heart sounds are normal; edema LUNGS: Respiratory rate increased; decreased breath sounds. ABDOMEN: Soft, distended , nontender, , area of subcutaneous swelling around the incision site. Lemus catheter PSYCH: Unable to assess NEUROLOGICAL: This open eyes occasionally INVESTIGATIONS, reviewed in the clinical context: March 17: White count 7.6 hemoglobin 8.2 increased neutrophil March 16: White count 8.2 hemoglobin 8.2 potassium 3.8 creatinine 0.69. Chest x-ray-some improvement reported March 15: White count 7.6 hemoglobin 8.6. Distal 68 potassium 3.8 creatinine 1.03 March 13: White count 18.2 hemoglobin 9.6 platelets 253 potassium 4.2 creatinine 1.15. Chest x-ray bilateral infiltrates and fluid March 12: White count 8.8 hemoglobin 9.3 ABG-pH 7.48 pO2 76 potassium 4.4 creatinine 0.82 March 11: White count 20.9 hemoglobin 9.9 platelets 393 potassium 4.2 crit 0.77 albumin 1.9 March 10: White count 22.6 hemoglobin 9.7 platelets 366potassium 4.1 creatinine 0.67 March 09: White count 18.2, hemoglobin 9.5, platelets 369 sodium 147 potassium 4.2 creatinine 0.77 March 08: White count 98.1 hemoglobin 19.3 platelets 329 sodium 148 potassium 3.2 right 126 creatinine 0.7 to albumin 1.9 March 07: White count 24 hemoglobin 9.8 platelets 366 potassium 3.7 creatinine 0.73 White count 16.4 hemoglobin 8.8 platelets 276 potassium 3.5 creatinine 0.71 Previous testing EEG shows evidence of encephalopathy Computed tomography scan of the brain-mild atrophy 2-D echocardiogram-EF 55-60% VQ scan-intermediate probability Chest CTA-suboptimal study. Doppler ultrasound-positive for thrombus within the distal popliteal vein White count 10.2 hemoglobin 14.2 potassium 3.6 B12 some 08 Previously AST 129 ALT 50 Computed tomography scan of the abdomen from January 08-possible colitis, diverticulitis, some esophagitis, hepatic steatosis Abdominal x-ray film personally reviewed by me shows ileus Sputum growing [place] Assessment: -Acute hypoxic respiratory failure, requiring ventilator support-slow to respond -Septic shock- -Status post low anterior resection, for diverticulitis complication - aspiration pneumonia -Postop ileus-recovered -Chronic nicotine dependence patient cigarette smoker -Clinical emphysema, asymptomatic -Suspect alcoholic hepatitis -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 Repeat paracentesis. 4.5 L.-repeat paracentesis is 4.4 L.. Repeat paracentesis 4 L removed -Mild hyponatremia -Hypernatremia -Macrocytic anemia. -Acute DVT in the left distal popliteal vein -Acute alcohol withdrawal syndrome with improvement -Right lower lobe pneumonia -Mild protein calorie malnutrition from decreased oral intake -Tracheostomy tube placed on March 06 -Metabolic encephalopathy-no improvement -Dobbhoff tube placed and removed -TPN and lipids Plan: ICU-prognosis remains poor. TPN lipids., ventilator., Anidulafungin. [facility] shunt-vascular consulted. It is not done here.. Thank you Dr. Lee
[2020-03-17] MEDS: ATORVASTATIN 20 MG TAB OG-TUBE SCH (21:24)
[2020-03-17] MEDS: TAMSULOSIN 0.4 MG CAP.ER.24H PO SCH (21:24)
--- NOTE | 2020-03-17 23:36 | PN ---
PROGRESS NOTE DATE OF SERVICE: 03/17/2020 REASON FOR FOLLOWUP: Pneumonia and oropharyngeal candidiasis. INTERVAL HISTORY: The patient is afebrile. The patient is hemodynamically stable not on pressor support. FiO2 is currently stable at 40%. No significant purulent secretion through ET tube or diarrhea reported by nursing staff. PHYSICAL EXAMINATION: On examination, blood pressure 134/51, pulse of 109, temperature 98.3. He is 100% on 40% FiO2. General description is a middle-aged male lying in bed in no distress. RESPIRATORY SYSTEM: Unlabored breathing, decreased intensity of breath sounds. No wheeze. HEART: S1, S2. Regular rate and rhythm. ABDOMEN: Soft, no tenderness. LABS: Hemoglobin 8.2, white count 17.6, BUN of 26, creatinine 0.6. DIAGNOSTIC IMPRESSION AND PLAN: Patient with elevated white count which is multifactorial in this patient currently on the hydrocortisone likely responsible possible component of aspiration pneumonia with Klebsiella and oropharyngeal candidiasis patient required Zosyn and Eraxis to continue and monitor his clinical course closely. MMODL / IJN: [id number] /
[2020-03-18 00:25] LABS: Glucose,Whole Blood 124 mg/dL (75-99)
[2020-03-18] MEDS: INSULIN ASPART (NovoLOG) 100 UNIT/ML VIAL SQ SCH ×4 (00:25→18:44)
[2020-03-18] MEDS: PIPERACILLIN-TAZOBACTAM 3.375 GM in SODIUM CHLORIDE 0.9% 100 ML IVPB SCH ×3 (00:27→17:09)
[2020-03-18] MEDS: SODIUM CHLORIDE 0.9% 1,000 ML IV SCH ×2 (03:08→20:55)
[2020-03-18] MEDS: IPRATROPIUM-ALBUTEROL 3 ML NEB INHALATION SCH ×5 (03:51→19:58)
[2020-03-18 05:07] LABS: Glucose,Whole Blood 134 mg/dL (75-99)
[2020-03-18 05:24] LABS: Anisocytosis Slight; HCT 20.7 % (39.0-53.0); Hypochromasia Marked; MCH 32.6 pg (25.0-35.0); MCHC 31.4 g/dL (31.0-37.0); MCV 104.1 fL (80.0-100.0); Macrocytosis Moderate; Mean Platelet Volume 11.2; Platelet Count 120 k/uL (150-450); Poikilocytosis Slight; RBC 1.99 m/uL (4.30-5.90); RDW 16.4 % (11.5-15.5); WBC 12.9 k/uL (3.8-10.6)
[2020-03-18 05:37] LABS: African American GFR (CKD) >90 (>60 ml/min/1.73 sqM); Anion Gap 2 mmol/L; Blood Urea Nitrogen 22 mg/dL (9-20); Calcium 7.8 mg/dL (8.4-10.2); Carbon Dioxide 22 mmol/L (22-30); Chloride 120 mmol/L (98-107); Glucose 127 mg/dL (74-99); Magnesium 1.7 mg/dL (1.6-2.3); Non-African American GFR(CKD) >90 (>60 ml/min/1.73 sqM); Phosphorus 2.9 mg/dL (2.5-4.5); Potassium 2.9 mmol/L (3.5-5.1); Sodium 144 mmol/L (137-145)
[2020-03-18 05:39] LABS: ABG Base Excess -3.8 mmol/L; ABG HCO3 20 mmol/L (21-25); ABG Oxygen Saturation 97.3 % (94-97); ABG PCO2 27 mmHg (35-45); ABG PH 7.48 (7.35-7.45); ABG PO2 75 mmHg (83-108); ABG TCO2 21 mmol/L (19-24); Allen Test Performed? Yes
[2020-03-18 05:40] LABS: HGB 6.5 gm/dL (13.0-17.5)
[2020-03-18 05:56] LABS: Band Neutrophils % 1 %; Lymphocytes # (M) 1.42 k/uL (1.0-4.8); Monocytes # (M) 0.65 k/uL (0-1.0); Neutrophils % (M) 83 %; Nucleated Red Blood Cells 0 /100 WBC (0-0); Polychromasia Present; Total Cells Counted 100
[2020-03-18] MEDS: FERROUS SULFATE ORAL ELIXIR 300 MG/5 ML CUP PO SCH ×2 (08:25→16:53)
[2020-03-18] MEDS: FOLIC ACID 1 MG TAB OG-TUBE SCH (08:25)
[2020-03-18] MEDS: THIAMINE 100 MG/ML 2 ML VIAL IVP SCH (08:25)
--- NOTE | 2020-03-18 08:45 | XR ---
EXAMINATION TYPE: XR chest 1V DATE OF EXAM: 03/18/2020 COMPARISON: 03/18/2020 HISTORY: Shortness of breath TECHNIQUE: Single frontal view of the chest is obtained. FINDINGS: There is bilateral consolidation increasing patchy infiltrate in the left upper lobe. Stab le small left pleural effusion. PICC line noted. NG tube stable. Tracheostomy tube stable. Chronic ri b deformities noted. No pneumothorax. Postsurgical change left humerus. IMPRESSION: 1. Pleural-parenchymal changes demonstrate mild progression within the left upper lobe which could be technical correlate clinically.
[2020-03-18] MEDS: POTASSIUM CHLORIDE 20 MEQ in WATER FOR INJECTION 1 100ML.BAG IVPB SCH ×3 (08:47→13:19)
[2020-03-18 08:49] LABS: Anisocytosis Slight; HCT 26.7 % (39.0-53.0); Hypochromasia Marked; MCH 31.6 pg (25.0-35.0); MCHC 30.5 g/dL (31.0-37.0); MCV 103.6 fL (80.0-100.0); Macrocytosis Moderate; Mean Platelet Volume 10.5; Platelet Count 157 k/uL (150-450); Poikilocytosis Slight; RBC 2.58 m/uL (4.30-5.90); RDW 16.9 % (11.5-15.5); WBC 17.9 k/uL (3.8-10.6)
[2020-03-18 08:59] LABS: Partial Thromboplastin Time 21.1 sec (22.0-30.0)
[2020-03-18 09:06] LABS: HGB 8.2 gm/dL (13.0-17.5)
[2020-03-18] MEDS: HYDROCORTISONE SUCCINATE 100 MG/2 ML VIAL IV SCH ×2 (10:01→21:03)
[2020-03-18] MEDS: ANIDULAFUNGIN 100 MG in SODIUM CHLORIDE 0.9% 100 ML IVPB SCH (10:01)
[2020-03-18] MEDS: PANTOPRAZOLE 40 MG/10 ML VIAL IVP SCH ×2 (10:01→21:03)
[2020-03-18 10:15] LABS: African American GFR (CKD) >90 (>60 ml/min/1.73 sqM); Anion Gap 3 mmol/L; Blood Urea Nitrogen 22 mg/dL (9-20); Calcium 8.1 mg/dL (8.4-10.2); Carbon Dioxide 21 mmol/L (22-30); Chloride 121 mmol/L (98-107); Glucose 119 mg/dL (74-99); Magnesium 1.7 mg/dL (1.6-2.3); Non-African American GFR(CKD) >90 (>60 ml/min/1.73 sqM); Phosphorus 3.1 mg/dL (2.5-4.5); Sodium 145 mmol/L (137-145)
[2020-03-18] MEDS: MAGNESIUM SULFATE-D5W PMX 1 GM in DEXTROSE/WATER 1 100ML.BAG IVPB SCH ×2 (11:36→13:19)
--- NOTE | 2020-03-18 12:34 | P.PN ---
Subjective Progress Note Date: 03/18/20 The patient was seen in the ICU. No acute changes through the night. He remains overall nonresponsive. Unable to communicate. Objective - Vital Signs Vital signs: Vital Signs Temp 97.1 F L 03/18/20 12:00 Pulse 105 H 03/18/20 12:00 Resp 16 03/18/20 12:00 BP 104/74 03/18/20 12:00 Pulse Ox 93 L 03/18/20 12:00 Intake & Output 03/17/20 03/18/20 03/18/20 18:59 06:59 18:59 Intake Total 1946.96 2656.8333 1202 Output Total 26048 1620 305 Balance -9333.04 1036.8333 897 Weight 68.8 kg 63.8 kg Intake: IV 1913 1596 892 Albumin Human 25% 50 ml 50 In Empty Bag 1 bag @ 50 mls/hr IVPB Q1H [facility] Rx#: [id number] Anidulafungin 100 mg In 100 100 Sodium Chloride 0.9% 100 ml @ 84 mls/hr IVPB DAILY [facility] Rx#:[id number] MVI 605 660 330 Magnesium Sulfate-D5w Pmx 100 1 gm In Dextrose/Water 1 100ml.bag @ 100 mls/hr IVPB Q1H [facility] Rx#: [id number] Piperacillin-Tazobactam 3 100 100 .375 gm In Sodium Chloride 0.9% 100 ml @ 25 mls/hr IVPB Q8HR [facility] Rx# :[id number] Potassium Chloride 10 meq 100 In Water For Injection 1 100ml.bag @ 100 mls/hr IVPB Q1H [facility] Rx#: [id number] Potassium Chloride 20 meq 100 In Water For Injection 1 100ml.bag @ 50 mls/hr IVPB Q2H [facility] Rx#: [id number] Pressure bag 33 36 12 Sodium Chloride 0.9% 1, 825 900 150 000 ml @ 75 mls/hr IV . [id number] [facility] Rx#:[id number] Sodium Phosphate 10 mmol 100 In Sodium Chloride 0.9% 100 ml @ 50 mls/hr IVPB ONCE ONE Rx#:[id number] Intake, IV Titration 33.96 1060.8333 Amount Mvi, Adult No.4 with Vit 1060.8333 K 10 ml Trace (Conc-1Ml/ Dose) 1 ml Sodium Acetate 40 meq Potassium Acetate 30 meq Calcium Gluconate 1 gm Magnesium Sulfate gm 0.75 gm Potassium Phosphate 10 mmol In Amino Acid 5%-D15w 1,000 ml @ 55 mls/hr IV . [id number] ON LICENSE OF [facility] Rx#:[id number] Norepinephrine 8 mg In 33.96 Sodium Chloride 0.9% 250 ml @ 0.05 MCG/KG/MIN 5. 824 mls/hr IV .Q24H ON LICENSE OF [facility] Rx#:[id number] Blood Product 310 Rc As-1 Unit 310 [id number] Output: Gastric Drainage 600 Drainage 4000 Right Lower Lateral 4000 Abdomen Paracentesis site Urine 1580 820 305 Stool 200 Other 5700 Other: Voiding Method Indwelling Catheter Indwelling Catheter ABP, PAP, CO, CI - Last Documented Arterial Blood Pressure 133/65 - Exam VITAL SIGNS: Reviewed. GENERAL: Well-developed in no acute distress. Tracheotostomy present. HEENT: No sclera icterus. Extraocular movements grossly intact. Moist buccal mucosa. Head is atraumatic, normocephalic. Trach site clean dry and intact ABDOMEN: Nondisteded, surgical Incision clean dry and intact. NEUROLOGIC: Patient is awake and able to open eyes. Unable to follow commands - Labs CBC & Chem 7: 03/18/20 08:11 03/18/20 09:27 Labs: Abnormal Lab Results - Last 24 Hours (Table) 03/17/20 03/18/20 03/18/20 Range/Units 17:23 00:24 05:02 WBC (3.8-10.6) k/uL RBC (4.30-5.90) m/uL Hgb (13.0-17.5) gm/dL Hct (39.0-53.0) % MCV (80.0-100.0) fL MCHC (31.0-37.0) g/dL RDW (11.5-15.5) % Plt Count (150-450) k/uL Neutrophils # (Manual) (1.3-7.7) k/uL APTT (22.0-30.0) sec ABG pH (7.35-7.45) ABG pCO2 (35-45) mmHg ABG pO2 (83-108) mmHg ABG HCO3 (21-25) mmol/L ABG O2 Saturation (94-97) % Potassium 2.9 L (3.5-5.1) mmol/L Chloride 120 H (98-107) mmol/L Carbon Dioxide (22-30) mmol/L BUN 22 H (9-20) mg/dL Creatinine 0.53 L (0.66-1.25) mg/dL Glucose 127 H (74-99) mg/dL POC Glucose (mg/dL) 143 H 124 H (75-99) mg/dL Calcium 7.8 L (8.4-10.2) mg/dL Crossmatch 03/18/20 03/18/20 03/18/20 Range/Units 05:02 05:04 05:35 WBC 12.9 H (3.8-10.6) k/uL RBC 1.99 L (4.30-5.90) m/uL Hgb 6.5 L* D (13.0-17.5) gm/dL Hct 20.7 L (39.0-53.0) % MCV 104.1 H (80.0-100.0) fL MCHC (31.0-37.0) g/dL RDW 16.4 H (11.5-15.5) % Plt Count 120 L (150-450) k/uL Neutrophils # (Manual) 10.80 H (1.3-7.7) k/uL APTT (22.0-30.0) sec ABG pH 7.48 H (7.35-7.45) ABG pCO2 27 L (35-45) mmHg ABG pO2 75 L (83-108) mmHg ABG HCO3 20 L (21-25) mmol/L ABG O2 Saturation 97.3 H (94-97) % Potassium (3.5-5.1) mmol/L Chloride (98-107) mmol/L Carbon Dioxide (22-30) mmol/L BUN (9-20) mg/dL Creatinine (0.66-1.25) mg/dL Glucose (74-99) mg/dL POC Glucose (mg/dL) 134 H (75-99) mg/dL Calcium (8.4-10.2) mg/dL Crossmatch 03/18/20 03/18/20 03/18/20 Range/Units 06:54 08:11 08:11 WBC 17.9 H (3.8-10.6) k/uL RBC 2.58 L (4.30-5.90) m/uL Hgb 8.2 L D (13.0-17.5) gm/dL Hct 26.7 L (39.0-53.0) % MCV 103.6 H (80.0-100.0) fL MCHC 30.5 L (31.0-37.0) g/dL RDW 16.9 H (11.5-15.5) % Plt Count (150-450) k/uL Neutrophils # (Manual) (1.3-7.7) k/uL APTT 21.1 L (22.0-30.0) sec ABG pH (7.35-7.45) ABG pCO2 (35-45) mmHg ABG pO2 (83-108) mmHg ABG HCO3 (21-25) mmol/L ABG O2 Saturation (94-97) % Potassium (3.5-5.1) mmol/L Chloride (98-107) mmol/L Carbon Dioxide (22-30) mmol/L BUN (9-20) mg/dL Creatinine (0.66-1.25) mg/dL Glucose (74-99) mg/dL POC Glucose (mg/dL) (75-99) mg/dL Calcium (8.4-10.2) mg/dL Crossmatch See Detail 03/18/20 Range/Units 09:27 WBC (3.8-10.6) k/uL RBC (4.30-5.90) m/uL Hgb (13.0-17.5) gm/dL Hct (39.0-53.0) % MCV (80.0-100.0) fL MCHC (31.0-37.0) g/dL RDW (11.5-15.5) % Plt Count (150-450) k/uL Neutrophils # (Manual) (1.3-7.7) k/uL APTT (22.0-30.0) sec ABG pH (7.35-7.45) ABG pCO2 (35-45) mmHg ABG pO2 (83-108) mmHg ABG HCO3 (21-25) mmol/L ABG O2 Saturation (94-97) % Potassium 3.0 L (3.5-5.1) mmol/L Chloride 121 H (98-107) mmol/L Carbon Dioxide 21 L (22-30) mmol/L BUN 22 H (9-20) mg/dL Creatinine 0.53 L (0.66-1.25) mg/dL Glucose 119 H (74-99) mg/dL POC Glucose (mg/dL) (75-99) mg/dL Calcium 8.1 L (8.4-10.2) mg/dL Crossmatch Assessment and Plan Assessment: 1. Liver cirrhosis with abdominal ascites status post multiple paracentesis during this admission 2. Cardiopulmonary arrest and acute hypoxic respiratory failure secondary to septic shock. 3. Diverticulitis status post lower anterior resection, takedown of splenic flexure and partial omentectomy on 02/07/2020 4. Alcohol abuse with alcohol withdrawal 5. New left leg DVT during this admission 6. ileus 7. Black stools. Resolved. No evidence of upper GI bleed on EGD. EGD was normal 8. Altered mental status likely due to cardiac arrest and superimposed toxic metabolic encephalopathy. Followed by neurology 9. Possible aspiration pneumonia 10. Severe protein calorie malnutrition 11. Patient status post tracheostomy for acute hypoxic respiratory failure Plan: This patient was further discussed with Dr. Myles and Dr. Lee. The patient is unstable for transfer. We will sign off at this time as there are no acute vascular surgical interventions indicated. Patient will need to be transferred to a tertiary center for possible placement of shunt for ongoing Ascites and paracentesis. The above dictated assessment and findings were discussed with Dr. Myles. The impression and plan of care have been directed as dictated.
[2020-03-18 13:01] LABS: Glucose,Whole Blood 140 mg/dL (75-99)
--- NOTE | 2020-03-18 13:16 | P.PN ---
Subjective Progress Note Date: 03/18/20 Principal diagnosis: diverticulitis, post op DVT, VQ indeterminate for PE Pt is awake but not attempting to communicate, no non-verbal cues again when seen today Objective - Vital Signs Vital signs: Vital Signs Temp 97.1 F L 03/18/20 11:31 Pulse 105 H 03/18/20 11:31 Resp 23 03/18/20 11:31 BP 130/64 03/18/20 11:31 Pulse Ox 95 03/18/20 11:31 Intake & Output 03/17/20 03/18/20 03/18/20 18:59 06:59 18:59 Intake Total 1946.96 2656.8333 886 Output Total 51526 1620 245 Balance -9333.04 1036.8333 641 Weight 68.8 kg 63.8 kg Intake: IV 1913 1596 576 Albumin Human 25% 50 ml 50 In Empty Bag 1 bag @ 50 mls/hr IVPB Q1H [facility] Rx#: [id number] Anidulafungin 100 mg In 100 100 Sodium Chloride 0.9% 100 ml @ 84 mls/hr IVPB DAILY [facility] Rx#:[id number] MVI 605 660 220 Piperacillin-Tazobactam 3 100 100 .375 gm In Sodium Chloride 0.9% 100 ml @ 25 mls/hr IVPB Q8HR [facility] Rx# :[id number] Potassium Chloride 10 meq 100 In Water For Injection 1 100ml.bag @ 100 mls/hr IVPB Q1H [facility] Rx#: [id number] Pressure bag 33 36 6 Sodium Chloride 0.9% 1, 825 900 150 000 ml @ 75 mls/hr IV . [id number] [facility] Rx#:[id number] Sodium Phosphate 10 mmol 100 In Sodium Chloride 0.9% 100 ml @ 50 mls/hr IVPB ONCE ONE Rx#:[id number] Intake, IV Titration 33.96 1060.8333 Amount Mvi, Adult No.4 with Vit 1060.8333 K 10 ml Trace (Conc-1Ml/ Dose) 1 ml Sodium Acetate 40 meq Potassium Acetate 30 meq Calcium Gluconate 1 gm Magnesium Sulfate gm 0.75 gm Potassium Phosphate 10 mmol In Amino Acid 5%-D15w 1,000 ml @ 55 mls/hr IV . [id number] [facility] Rx#:[id number] Norepinephrine 8 mg In 33.96 Sodium Chloride 0.9% 250 ml @ 0.05 MCG/KG/MIN 5. 824 mls/hr IV .Q24H [facility] Rx#:[id number] Blood Product 310 Rc As-1 Unit 310 [id number] Output: Gastric Drainage 600 Drainage 4000 Right Lower Lateral 4000 Abdomen Paracentesis site Urine 1580 820 245 Stool 200 Other 5700 Other: Voiding Method Indwelling Catheter Indwelling Catheter ABP, PAP, CO, CI - Last Documented Arterial Blood Pressure 131/65 - Constitutional General appearance: Present: no acute distress, thin - EENT Eyes: Present: anicteric sclerae, EOMI - Neck Details: Bleeding and clotting around trach - Cardiovascular Heart sounds: normal: S1, S2 - Peripheral edema leg Peripheral Edema: bilateral: Trace - Musculoskeletal Musculoskeletal: Present: generalized weakness - Psychiatric Psychiatric Comment(s): patient is alert, eyes are open, he looks when you talk, no attempts to communicate - Labs CBC & Chem 7: 03/18/20 08:11 03/18/20 09:27 Labs: Abnormal Lab Results - Last 24 Hours (Table) 03/17/20 03/17/20 03/18/20 Range/Units 11:58 17:23 00:24 WBC (3.8-10.6) k/uL RBC (4.30-5.90) m/uL Hgb (13.0-17.5) gm/dL Hct (39.0-53.0) % MCV (80.0-100.0) fL MCHC (31.0-37.0) g/dL RDW (11.5-15.5) % Plt Count (150-450) k/uL Neutrophils # (Manual) (1.3-7.7) k/uL APTT (22.0-30.0) sec ABG pH (7.35-7.45) ABG pCO2 (35-45) mmHg ABG pO2 (83-108) mmHg ABG HCO3 (21-25) mmol/L ABG O2 Saturation (94-97) % Potassium (3.5-5.1) mmol/L Chloride (98-107) mmol/L Carbon Dioxide (22-30) mmol/L BUN (9-20) mg/dL Creatinine (0.66-1.25) mg/dL Glucose (74-99) mg/dL POC Glucose (mg/dL) 118 H 143 H 124 H (75-99) mg/dL Calcium (8.4-10.2) mg/dL Crossmatch 03/18/20 03/18/20 03/18/20 Range/Units 05:02 05:02 05:04 WBC 12.9 H (3.8-10.6) k/uL RBC 1.99 L (4.30-5.90) m/uL Hgb 6.5 L* D (13.0-17.5) gm/dL Hct 20.7 L (39.0-53.0) % MCV 104.1 H (80.0-100.0) fL MCHC (31.0-37.0) g/dL RDW 16.4 H (11.5-15.5) % Plt Count 120 L (150-450) k/uL Neutrophils # (Manual) 10.80 H (1.3-7.7) k/uL APTT (22.0-30.0) sec ABG pH (7.35-7.45) ABG pCO2 (35-45) mmHg ABG pO2 (83-108) mmHg ABG HCO3 (21-25) mmol/L ABG O2 Saturation (94-97) % Potassium 2.9 L (3.5-5.1) mmol/L Chloride 120 H (98-107) mmol/L Carbon Dioxide (22-30) mmol/L BUN 22 H (9-20) mg/dL Creatinine 0.53 L (0.66-1.25) mg/dL Glucose 127 H (74-99) mg/dL POC Glucose (mg/dL) 134 H (75-99) mg/dL Calcium 7.8 L (8.4-10.2) mg/dL Crossmatch 03/18/20 03/18/20 03/18/20 Range/Units 05:35 06:54 08:11 WBC 17.9 H (3.8-10.6) k/uL RBC 2.58 L (4.30-5.90) m/uL Hgb 8.2 L D (13.0-17.5) gm/dL Hct 26.7 L (39.0-53.0) % MCV 103.6 H (80.0-100.0) fL MCHC 30.5 L (31.0-37.0) g/dL RDW 16.9 H (11.5-15.5) % Plt Count (150-450) k/uL Neutrophils # (Manual) (1.3-7.7) k/uL APTT (22.0-30.0) sec ABG pH 7.48 H (7.35-7.45) ABG pCO2 27 L (35-45) mmHg ABG pO2 75 L (83-108) mmHg ABG HCO3 20 L (21-25) mmol/L ABG O2 Saturation 97.3 H (94-97) % Potassium (3.5-5.1) mmol/L Chloride (98-107) mmol/L Carbon Dioxide (22-30) mmol/L BUN (9-20) mg/dL Creatinine (0.66-1.25) mg/dL Glucose (74-99) mg/dL POC Glucose (mg/dL) (75-99) mg/dL Calcium (8.4-10.2) mg/dL Crossmatch See Detail 03/18/20 03/18/20 Range/Units 08:11 09:27 WBC (3.8-10.6) k/uL RBC (4.30-5.90) m/uL Hgb (13.0-17.5) gm/dL Hct (39.0-53.0) % MCV (80.0-100.0) fL MCHC (31.0-37.0) g/dL RDW (11.5-15.5) % Plt Count (150-450) k/uL Neutrophils # (Manual) (1.3-7.7) k/uL APTT 21.1 L (22.0-30.0) sec ABG pH (7.35-7.45) ABG pCO2 (35-45) mmHg ABG pO2 (83-108) mmHg ABG HCO3 (21-25) mmol/L ABG O2 Saturation (94-97) % Potassium 3.0 L (3.5-5.1) mmol/L Chloride 121 H (98-107) mmol/L Carbon Dioxide 21 L (22-30) mmol/L BUN 22 H (9-20) mg/dL Creatinine 0.53 L (0.66-1.25) mg/dL Glucose 119 H (74-99) mg/dL POC Glucose (mg/dL) (75-99) mg/dL Calcium 8.1 L (8.4-10.2) mg/dL Crossmatch Assessment and Plan (1) Deep vein thrombosis of left lower extremity Current Visit: Yes Status: Acute Priority: High Code(s): I82.402 - ACUTE EMBOLISM AND THOMBOS UNSP DEEP VEINS OF L LOW EXTREM SNOMED Code(s): 767191121 (2) Anemia Current Visit: Yes Status: Acute Priority: High Code(s): D64.9 - ANEMIA, UNSPECIFIED SNOMED Code(s): 791946690 Plan: Patient has visible bleeding and clotting around the trach. Hemoglobin did drop to 6.5 on AM lab draw. RN redraw the specimen and hemoglobin was 8.2 (felt drop was 2/2 dilution from the line the specimen was taken from). Patient is being given a unit of blood when seen. Lovenox is currently on hold. Concern is being off of anticoagulation with new lower extremity blood clot. Pt is no co ndition to have IVC filter placed. Did discuss the case with Critical Care team. At this time they do not want patient anticoagulated. They agree with administering a dose of DDAVP for bleeding and oozing around the trach. Recommend resuming anticoagulation (heparin drip as most easily reversible) as soon as able.
[2020-03-18] MEDS ORDERED: DESMOPRESSIN ACETATE 20 MCG in SODIUM CHLORIDE 0.9% 50 ML IVPB ONE (13:30)
--- NOTE | 2020-03-18 13:47 | P.PN ---
Subjective Progress Note Date: 03/18/20 CHIEF COMPLAINT: Diverticulitis HISTORY OF PRESENT ILLNESS: Patient is status post lower anterior resection, takedown of splenic flexure and partial omentectomy on 02/07/2020. The morning of 02/26/20 patient was transferred to the ICU after STEVE KUMAR was called. Patient had become hypothermic and hypotensive. Patient become unresponsive they lost pulse and CPR was initiated. Patient did require to be intubated. Patient is in the ICU. He is on mechanical ventilation. He is off of Levophed. He had 5.7 L or of ascites removed during paracentesis yesterday. He was seen by vascular service regarding possible placement of shunt for his ongoing ascites and paracentesis. Vascular service had recommended transfer to [facility] where TIPS procedure can be completed. However, patient is not stable for transfer at this time. Patient is also having bleeding around the trach PEG and through the NG tube. Hemoglobin was 6.5 and he is receiving 1 unit of blood. Repeat hemoglobin is 8.2. WBC 12.9 PHYSICAL EXAM: VITAL SIGNS: Reviewed. GENERAL: Well-developed in no acute distress. HEENT: No sclera icterus. Extraocular movements grossly intact. Moist buccal mucosa. Head is atraumatic, normocephalic. Trach site clean dry and intact ABDOMEN: distended Incision clean dry and intact. NEUROLOGIC: Patient is awake and able to open eyes. Per nursing is able to follow some commands ASSESSMENT: 1. Cardiopulmonary arrest and acute hypoxic respiratory failure secondary to septic shock. 2. Diverticulitis status post lower anterior resection, takedown of splenic flexure and partial omentectomy on 02/07/2020 3. Patient's abdominal distention likely related to ileus, ascites from his liver cirrhosis and possible hernia. 4. Alcohol abuse with alcohol withdrawal 5. New left leg DVT during this admission 6. ileus 7. Black stools. Resolved. No evidence of upper GI bleed on EGD. EGD was normal 8. Altered mental status likely due to cardiac arrest and superimposed toxic metabolic encephalopathy. Followed by neurology 9. Possible aspiration pneumonia 10. Severe protein calorie malnutrition 11. Liver cirrhosis with abdominal ascites status post multiple paracentesis during this admission 12. Patient status post tracheostomy for acute hypoxic respiratory failure PLAN: -Continue supportive care -Continue TPN for nutrition support -Continue NG tube for decompression -Overall condition guarded Physician Mechanical Design Engineer note has been reviewed by physician. Signing provider agrees with the documented findings, assessment, and plan of care. Objective - Vital Signs Vital signs: Vital Signs Temp 97.1 F L 03/18/20 12:00 Pulse 106 H 03/18/20 13:00 Resp 13 03/18/20 13:00 BP 114/69 03/18/20 13:00 Pulse Ox 95 03/18/20 13:00 Intake & Output 03/17/20 03/18/20 03/18/20 18:59 06:59 18:59 Intake Total 1946.96 2656.8333 1260 Output Total 19894 1620 350 Balance -9333.04 1036.8333 910 Weight 68.8 kg 63.8 kg Intake: IV 1913 1596 950 Albumin Human 25% 50 ml 50 In Empty Bag 1 bag @ 50 mls/hr IVPB Q1H [facility] Rx#: [id number] Anidulafungin 100 mg In 100 100 Sodium Chloride 0.9% 100 ml @ 84 mls/hr IVPB DAILY [facility] Rx#:[id number] MVI 605 660 385 Magnesium Sulfate-D5w Pmx 100 1 gm In Dextrose/Water 1 100ml.bag @ 100 mls/hr IVPB Q1H [facility] Rx#: [id number] Piperacillin-Tazobactam 3 100 100 .375 gm In Sodium Chloride 0.9% 100 ml @ 25 mls/hr IVPB Q8HR [facility] Rx# :[id number] Potassium Chloride 10 meq 100 In Water For Injection 1 100ml.bag @ 100 mls/hr IVPB Q1H [facility] Rx#: [id number] Potassium Chloride 20 meq 100 In Water For Injection 1 100ml.bag @ 50 mls/hr IVPB Q2H [facility] Rx#: [id number] Pressure bag 33 36 15 Sodium Chloride 0.9% 1, 825 900 150 000 ml @ 75 mls/hr IV . [id number] [facility] Rx#:[id number] Sodium Phosphate 10 mmol 100 In Sodium Chloride 0.9% 100 ml @ 50 mls/hr IVPB ONCE ONE Rx#:[id number] Intake, IV Titration 33.96 1060.8333 Amount Mvi, Adult No.4 with Vit 1060.8333 K 10 ml Trace (Conc-1Ml/ Dose) 1 ml Sodium Acetate 40 meq Potassium Acetate 30 meq Calcium Gluconate 1 gm Magnesium Sulfate gm 0.75 gm Potassium Phosphate 10 mmol In Amino Acid 5%-D15w 1,000 ml @ 55 mls/hr IV . [id number] [facility] Rx#:[id number] Norepinephrine 8 mg In 33.96 Sodium Chloride 0.9% 250 ml @ 0.05 MCG/KG/MIN 5. 824 mls/hr IV .Q24H [facility] Rx#:[id number] Blood Product 310 Rc As-1 Unit 310 [id number] Output: Gastric Drainage 600 Drainage 4000 Right Lower Lateral 4000 Abdomen Paracentesis site Urine 1580 820 350 Stool 200 Other 5700 Other: Voiding Method Indwelling Catheter Indwelling Catheter ABP, PAP, CO, CI - Last Documented Arterial Blood Pressure 139/67 - Labs CBC & Chem 7: 03/18/20 08:11 03/18/20 09:27 Labs: Abnormal Lab Results - Last 24 Hours (Table) 03/17/20 03/18/20 03/18/20 Range/Units 17:23 00:24 05:02 WBC (3.8-10.6) k/uL RBC (4.30-5.90) m/uL Hgb (13.0-17.5) gm/dL Hct (39.0-53.0) % MCV (80.0-100.0) fL MCHC (31.0-37.0) g/dL RDW (11.5-15.5) % Plt Count (150-450) k/uL Neutrophils # (Manual) (1.3-7.7) k/uL APTT (22.0-30.0) sec ABG pH (7.35-7.45) ABG pCO2 (35-45) mmHg ABG pO2 (83-108) mmHg ABG HCO3 (21-25) mmol/L ABG O2 Saturation (94-97) % Potassium 2.9 L (3.5-5.1) mmol/L Chloride 120 H (98-107) mmol/L Carbon Dioxide (22-30) mmol/L BUN 22 H (9-20) mg/dL Creatinine 0.53 L (0.66-1.25) mg/dL Glucose 127 H (74-99) mg/dL POC Glucose (mg/dL) 143 H 124 H (75-99) mg/dL Calcium 7.8 L (8.4-10.2) mg/dL Crossmatch 03/18/20 03/18/20 03/18/20 Range/Units 05:02 05:04 05:35 WBC 12.9 H (3.8-10.6) k/uL RBC 1.99 L (4.30-5.90) m/uL Hgb 6.5 L* D (13.0-17.5) gm/dL Hct 20.7 L (39.0-53.0) % MCV 104.1 H (80.0-100.0) fL MCHC (31.0-37.0) g/dL RDW 16.4 H (11.5-15.5) % Plt Count 120 L (150-450) k/uL Neutrophils # (Manual) 10.80 H (1.3-7.7) k/uL APTT (22.0-30.0) sec ABG pH 7.48 H (7.35-7.45) ABG pCO2 27 L (35-45) mmHg ABG pO2 75 L (83-108) mmHg ABG HCO3 20 L (21-25) mmol/L ABG O2 Saturation 97.3 H (94-97) % Potassium (3.5-5.1) mmol/L Chloride (98-107) mmol/L Carbon Dioxide (22-30) mmol/L BUN (9-20) mg/dL Creatinine (0.66-1.25) mg/dL Glucose (74-99) mg/dL POC Glucose (mg/dL) 134 H (75-99) mg/dL Calcium (8.4-10.2) mg/dL Crossmatch 03/18/20 03/18/20 03/18/20 Range/Units 06:54 08:11 08:11 WBC 17.9 H (3.8-10.6) k/uL RBC 2.58 L (4.30-5.90) m/uL Hgb 8.2 L D (13.0-17.5) gm/dL Hct 26.7 L (39.0-53.0) % MCV 103.6 H (80.0-100.0) fL MCHC 30.5 L (31.0-37.0) g/dL RDW 16.9 H (11.5-15.5) % Plt Count (150-450) k/uL Neutrophils # (Manual) (1.3-7.7) k/uL APTT 21.1 L (22.0-30.0) sec ABG pH (7.35-7.45) ABG pCO2 (35-45) mmHg ABG pO2 (83-108) mmHg ABG HCO3 (21-25) mmol/L ABG O2 Saturation (94-97) % Potassium (3.5-5.1) mmol/L Chloride (98-107) mmol/L Carbon Dioxide (22-30) mmol/L BUN (9-20) mg/dL Creatinine (0.66-1.25) mg/dL Glucose (74-99) mg/dL POC Glucose (mg/dL) (75-99) mg/dL Calcium (8.4-10.2) mg/dL Crossmatch See Detail 03/18/20 03/18/20 Range/Units 09:27 12:57 WBC (3.8-10.6) k/uL RBC (4.30-5.90) m/uL Hgb (13.0-17.5) gm/dL Hct (39.0-53.0) % MCV (80.0-100.0) fL MCHC (31.0-37.0) g/dL RDW (11.5-15.5) % Plt Count (150-450) k/uL Neutrophils # (Manual) (1.3-7.7) k/uL APTT (22.0-30.0) sec ABG pH (7.35-7.45) ABG pCO2 (35-45) mmHg ABG pO2 (83-108) mmHg ABG HCO3 (21-25) mmol/L ABG O2 Saturation (94-97) % Potassium 3.0 L (3.5-5.1) mmol/L Chloride 121 H (98-107) mmol/L Carbon Dioxide 21 L (22-30) mmol/L BUN 22 H (9-20) mg/dL Creatinine 0.53 L (0.66-1.25) mg/dL Glucose 119 H (74-99) mg/dL POC Glucose (mg/dL) 140 H (75-99) mg/dL Calcium 8.1 L (8.4-10.2) mg/dL Crossmatch
--- NOTE | 2020-03-18 14:22 | P.PN ---
Subjective Progress Note Date: 03/18/20 03/18/2020: Patient continues to be in for peptic, has tracheostomy. Patient trying to speak, but difficult to understand. Appears generalized weak. 03/12/2020: No change. Continues to be significantly encephalopathy. Patient has tracheostomy. 03/11/2020: Patient was seen for a follow-up. Patient was last seen on 02/22/2020. Patient was doing remarkably better. Patient apparently had a cardiac arrest on 02/26/2020. His encephalopathy again got worse. Patient had undergone track and pack placement. Patient at present is laying in the bed, appears somewhat and respiratory distress, has tracheostomy in place. 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 He previously had admitted to drinking heavily. Patient has smoked 1-1/2 pack per day for 30 years. Objective - Vital Signs Vital signs: Vital Signs Temp 97.1 F L 03/18/20 12:00 Pulse 106 H 03/18/20 13:00 Resp 13 03/18/20 13:00 BP 114/69 03/18/20 13:00 Pulse Ox 95 03/18/20 13:00 Intake & Output 03/17/20 03/18/20 03/18/20 18:59 06:59 18:59 Intake Total 1946.96 2656.8333 1260 Output Total 67727 1620 350 Balance -9333.04 1036.8333 910 Weight 68.8 kg 63.8 kg Intake: IV 1913 1596 950 Albumin Human 25% 50 ml 50 In Empty Bag 1 bag @ 50 mls/hr IVPB Q1H [facility] Rx#: [id number] Anidulafungin 100 mg In 100 100 Sodium Chloride 0.9% 100 ml @ 84 mls/hr IVPB DAILY [facility] Rx#:[id number] MVI 609 046 379 Magnesium Sulfate-D5w Pmx 100 1 gm In Dextrose/Water 1 100ml.bag @ 100 mls/hr IVPB Q1H [facility] Rx#: [id number] Piperacillin-Tazobactam 3 100 100 .375 gm In Sodium Chloride 0.9% 100 ml @ 25 mls/hr IVPB Q8HR [facility] Rx# :[id number] Potassium Chloride 10 meq 100 In Water For Injection 1 100ml.bag @ 100 mls/hr IVPB Q1H [facility] Rx#: [id number] Potassium Chloride 20 meq 100 In Water For Injection 1 100ml.bag @ 50 mls/hr IVPB Q2H [facility] Rx#: [id number] Pressure bag 33 36 15 Sodium Chloride 0.9% 1, 825 900 150 000 ml @ 75 mls/hr IV . [id number] [facility] Rx#:[id number] Sodium Phosphate 10 mmol 100 In Sodium Chloride 0.9% 100 ml @ 50 mls/hr IVPB ONCE ONE Rx#:[id number] Intake, IV Titration 33.96 1060.8333 Amount Mvi, Adult No.4 with Vit 1060.8333 K 10 ml Trace (Conc-1Ml/ Dose) 1 ml Sodium Acetate 40 meq Potassium Acetate 30 meq Calcium Gluconate 1 gm Magnesium Sulfate gm 0.75 gm Potassium Phosphate 10 mmol In Amino Acid 5%-D15w 1,000 ml @ 55 mls/hr IV . [id number] [facility] Rx#:[id number] Norepinephrine 8 mg In 33.96 Sodium Chloride 0.9% 250 ml @ 0.05 MCG/KG/MIN 5. 824 mls/hr IV .Q24H [facility] Rx#:[id number] Blood Product 310 Rc As-1 Unit 310 [id number] Output: Gastric Drainage 600 Drainage 4000 Right Lower Lateral 4000 Abdomen Paracentesis site Urine 1580 820 350 Stool 200 Other 5700 Other: Voiding Method Indwelling Catheter Indwelling Catheter ABP, PAP, CO, CI - Last Documented Arterial Blood Pressure 139/67 - Exam Patient is laying in the bed. Patient appears obviously encephalopathic, but does make eye contact, follows very minimal directions. Extraocular muscles are intact. Pupils are round and reactive to light. Face appears symmetric. Patient did not cooperate with examination. Tone is decreased bilaterally in the arms. Patient does wiggle his feet to plantar stimulation. Bends his arms up at elbow but no resistance. Abdomen is very protuberant. Patient has peripheral edema. Patient has Son wrap around his legs for peripheral edema. - Labs CBC & Chem 7: 03/18/20 08:11 03/18/20 09:27 Labs: Abnormal Lab Results - Last 24 Hours (Table) 03/17/20 03/18/20 03/18/20 Range/Units 17:23 00:24 05:02 WBC (3.8-10.6) k/uL RBC (4.30-5.90) m/uL Hgb (13.0-17.5) gm/dL Hct (39.0-53.0) % MCV (80.0-100.0) fL MCHC (31.0-37.0) g/dL RDW (11.5-15.5) % Plt Count (150-450) k/uL Neutrophils # (Manual) (1.3-7.7) k/uL APTT (22.0-30.0) sec ABG pH (7.35-7.45) ABG pCO2 (35-45) mmHg ABG pO2 (83-108) mmHg ABG HCO3 (21-25) mmol/L ABG O2 Saturation (94-97) % Potassium 2.9 L (3.5-5.1) mmol/L Chloride 120 H (98-107) mmol/L Carbon Dioxide (22-30) mmol/L BUN 22 H (9-20) mg/dL Creatinine 0.53 L (0.66-1.25) mg/dL Glucose 127 H (74-99) mg/dL POC Glucose (mg/dL) 143 H 124 H (75-99) mg/dL Calcium 7.8 L (8.4-10.2) mg/dL Crossmatch 03/18/20 03/18/20 03/18/20 Range/Units 05:02 05:04 05:35 WBC 12.9 H (3.8-10.6) k/uL RBC 1.99 L (4.30-5.90) m/uL Hgb 6.5 L* D (13.0-17.5) gm/dL Hct 20.7 L (39.0-53.0) % MCV 104.1 H (80.0-100.0) fL MCHC (31.0-37.0) g/dL RDW 16.4 H (11.5-15.5) % Plt Count 120 L (150-450) k/uL Neutrophils # (Manual) 10.80 H (1.3-7.7) k/uL APTT (22.0-30.0) sec ABG pH 7.48 H (7.35-7.45) ABG pCO2 27 L (35-45) mmHg ABG pO2 75 L (83-108) mmHg ABG HCO3 20 L (21-25) mmol/L ABG O2 Saturation 97.3 H (94-97) % Potassium (3.5-5.1) mmol/L Chloride (98-107) mmol/L Carbon Dioxide (22-30) mmol/L BUN (9-20) mg/dL Creatinine (0.66-1.25) mg/dL Glucose (74-99) mg/dL POC Glucose (mg/dL) 134 H (75-99) mg/dL Calcium (8.4-10.2) mg/dL Crossmatch 03/18/20 03/18/20 03/18/20 Range/Units 06:54 08:11 08:11 WBC 17.9 H (3.8-10.6) k/uL RBC 2.58 L (4.30-5.90) m/uL Hgb 8.2 L D (13.0-17.5) gm/dL Hct 26.7 L (39.0-53.0) % MCV 103.6 H (80.0-100.0) fL MCHC 30.5 L (31.0-37.0) g/dL RDW 16.9 H (11.5-15.5) % Plt Count (150-450) k/uL Neutrophils # (Manual) (1.3-7.7) k/uL APTT 21.1 L (22.0-30.0) sec ABG pH (7.35-7.45) ABG pCO2 (35-45) mmHg ABG pO2 (83-108) mmHg ABG HCO3 (21-25) mmol/L ABG O2 Saturation (94-97) % Potassium (3.5-5.1) mmol/L Chloride (98-107) mmol/L Carbon Dioxide (22-30) mmol/L BUN (9-20) mg/dL Creatinine (0.66-1.25) mg/dL Glucose (74-99) mg/dL POC Glucose (mg/dL) (75-99) mg/dL Calcium (8.4-10.2) mg/dL Crossmatch See Detail 03/18/20 03/18/20 Range/Units 09:27 12:57 WBC (3.8-10.6) k/uL RBC (4.30-5.90) m/uL Hgb (13.0-17.5) gm/dL Hct (39.0-53.0) % MCV (80.0-100.0) fL MCHC (31.0-37.0) g/dL RDW (11.5-15.5) % Plt Count (150-450) k/uL Neutrophils # (Manual) (1.3-7.7) k/uL APTT (22.0-30.0) sec ABG pH (7.35-7.45) ABG pCO2 (35-45) mmHg ABG pO2 (83-108) mmHg ABG HCO3 (21-25) mmol/L ABG O2 Saturation (94-97) % Potassium 3.0 L (3.5-5.1) mmol/L Chloride 121 H (98-107) mmol/L Carbon Dioxide 21 L (22-30) mmol/L BUN 22 H (9-20) mg/dL Creatinine 0.53 L (0.66-1.25) mg/dL Glucose 119 H (74-99) mg/dL POC Glucose (mg/dL) 140 H (75-99) mg/dL Calcium 8.1 L (8.4-10.2) mg/dL Crossmatch Assessment and Plan Assessment: * Patient initially admitted for diverticulitis, status post lower anterior resection, takedown of splenic flexure and partial omentectomy. Hospitalization complicated by alcohol withdrawal, delirium tremens, which overtime improved significantly but had another setback with a cardiac arrest 02/26/2020. Patient again more encephalopathic as compared to last seen, but still improving. * Status post cardiac arrest due to septic shock, required a brief CPR but was intubated. * Status post tracheostomy on 03/06/2020. * History of polysubstance abuse including alcohol, and tobacco. * Hepatic cirrhosis. * Recent GI bleed. * Aspiration pneumonia * Severe protein calorie malnutrition * Acute DVT left lower extremity, now on Xarelto. * Folate deficiency Plan: * Patient continues to have significant toxic metabolic encephalopathy. Patient has now tracheostomy. Clinically patient continues to be encephalopathic. He continues to have multiple medical issues as mentioned above. * EEG showed moderate background slowing consistent with encephalopathy, no epileptiform activity seen. * CT head showed mild generalized atrophy. No acute intracranial process. * Carotid Doppler 03/07/2020 showed no hemodynamic significant stenosis of proximal ICA. Antegrade flow in both vertebral arteries. * 2-D echo from 03/07/2020 showed EF 55-60%. Mild MR. No aortic stenosi * Patient cannot have MRI because of presence of metallic laisha. * Continue folic acid 1 mg daily for folic acid deficiency. * Hemoglobin A1c 4.0 * Continue thiamine and multivitamins. * Ammonia 43. Probably has some component of hepatic encephalopathy. * Neurology will sign off. Please call neurology if any further concerns.
--- NOTE | 2020-03-18 14:41 | P.PN ---
Subjective Progress Note Date: 03/18/20 Principal diagnosis: Acute hypoxic respiratory failure, massive ascites, liver cirrhosis, possible abdominal sepsis. This is a 64-year-old white male patient status post low anterior resection for strictures and diverticular disease, and this is postoperative day #6. Following his surgery on February 08 patient had a thrombus discomfort within the distal popliteal vein in his left leg, on the liver night patient had a CT angiogram of the chest which was a suboptimal study and did not reveal any large saddle all of central pulmonary emboli. The computed tomography scan showed evidence of small bilateral pleural effusions and multifocal groundglass opacities that could relate to pulmonary edema and/or pneumonia. His chest x- ray from February 11 showed bilateral infiltrates that could be consistent with pneumonia or heart failure. VQ scan showed indeterminate probability for pulmonary embolism. Patient has been confused, apparently he does have history of chronic EtOH, but it has been 60 since his admission, he remains very confused, he is on 3 L of oxygen and the pulse ox of 95%, he was started on heparin infusion for DVT in his left leg. We did not think there was a pulmonary embolism based on his workup. His brain CT showed no acute intracranial abnormality. In addition there is a possibility of GI bleeding as the patient has been passing some dark stools. Is not appear to be in any respiratory distress, he remains lethargic, confused. Neurology is following, EEGs in progress. Dr. Araujo is planning on EGD tomorrow for evaluation of black stools. On 02/14/2020 patient seen in follow-up on general medical surgical floor his heparin drip is off, his 0.9 normal saline running at 75 ML per hour, appears to be more awake on today's exam, although still confused, she is only oriented to percent, no agitation. No signs of respiratory difficulty, he is on 3 L of oxygen pulse ox is 95%, hemodynamically stable, his abdomen is slightly tender postsurgery, his incision covered with dressing, his been afebrile, breathing is nonlabored, lung sounds reveal a few basilar crackles, no rhonchi or wheezing. Surgery is planned and on EGD today, neurology is following, EEG revealed background slowing of moderate degree suggestive of generalized cerebral dysfunction related to toxic metabolic encephalopathy. Today's hemoglobin is 8.6, had one bowel movement this morning. On 02/15/2020 patient seen in follow-up on general medical surgical floor, patient had EGD done yesterday which did not reveal any active bleeding, patient was restarted on heparin infusion for evidence of DVT in his lower extremity, no worsening dyspnea, patient is still on and off lethargic, but appears to be in no acute distress. He is on 3 L of oxygen pulse ox of 95%, his been afebrile, completed chest pain. No hemoptysis. Today's hemoglobin is 9.0. On 02/26/2020 we were reconsulted in view of significant clinical deterioration last night, rapid response team was called, alva gama was activated at 0243 in the morning on 02/26/2020. Apparently patient was having ongoing abdominal pain for the past few days prior to the event, he was believed to have ileus. His abdominal CT of abdomen and pelvis was done on 02/19/2020 showing postoperative changes in the sigmoid colon, proximal to this level there was abnormal thickening of the right colon, some thickened small bowel loops were also present, no is no evidence of free air, there was evidence of increased amount of ascites. There was interval development of bilateral pleural effusions and associated atelectasis. Past few days patient also developed a low urine output urology also consulted on the case for difficult Lemus insertion and possible urinary retention. Yesterday on 02/25/2020 ultrasound abdomen showed moderate ascites in the right flank. His abdomen continued to be more distended and painful, patient was eating some oral intake, however his blood pressures were running on the lower side, his urine output continued to be low, there was paracentesis planned a possibility of ascites. Last night patient developed hypothermia, and hypotension. Patient became unresponsive, and there was no palpable pulse. CPR was started and immediately patient became responsive, CPR was stopped, patient was emergently intubated placed on mechanical ventilator and transferred to the intensive care unit. ID service has been following, patient's antibiotic coverage includes daptomycin. This morning he seen in the intensive care unit, sedated, intubated, on assist-control mode of ventilation, with a rate of 16, tidal planning is 500, FiO2 of 50%, and PEEP of 5. This was blood gases showed pO2 of 88, pCO2 of 29, and pH is 7.34. Patient is hypotensive, he is requiring levo fed at 0.43 mics per kilo per minute over 25 mics per minute, Diprivan and is at 40 mics per kilo per minute, patient has received fluid resuscitation, yesterday she had received 2 L of fluid from the surgical team earlier in the day, and he received additional 2 L bolus after his cardiac pulmonary arrest early this morning, his maintenance IV fluids are currently infusing at a rate of 75 ML per hour. Patient kidney to be hypotensive, we gave him an additional liter fluid bolus today, and she will be started on a vasopressin infusion for refractory hypotension. Blood cultures have been sent, pending at this time. Prior blood cultures and sputum culture. Patient's abdomen remains very tense, distended, firm, with the area of redness and discoloration, and induration near the mid abdominal surgical incision. Patient has a lot of generalized swelling, he is weeping from the catheter insertion sites. He had right femoral central line catheter placed by Dr. Jarrell at the bedside and a right radial art line placed for close hemodynamic monitoring. This morning's lab work has been reviewed showing squamous cell count of 21.8, hemoglobin of 8.9, sodium of 137, potassium is 4.1, chloride is 119, CO2 is 10, BUN is 10 and creatinine 0.64, patient was given 2 A of sodium bicarbonate. Reevaluated today on 02/27/20, patient is in the ICU, intubated and mechanically ventilated, his assist-control rate is 16 volume is 500 FiO2 is still on the percent, PEEP is 5. ABG today showed a pO2 of 104 pCO2 of 29 pH of 7.34 hence recommended that the patient gets the PEEP up to 8, and I cut down his FiO2 to 80%. Patient remains on norepinephrine at 46 mcg/m, he is also on bicarb drip, vasopressin was added today at 0.03, propofol is at 50 mcg/kg/m. Patient also remains on fluconazole and on daptomycin, his abdominal paracentesis was not therapeutic, it was mostly diagnostic, and so far the fluid does not seem to be diagnostic. Continues to have slight leakage from the site of his paracentesis, and the patient put out almost 3 L out in 24 hours from the same site where the paracentesis was done. Patient developed bilateral pleural effusions, however the ultrasound did not show enough fluid to perform a thoracentesis safely. Hence will hold on thoracentesis. Poor quality ultrasound pictures noted, cannot trust to perform safe thoracentesis on this patient. Hence we will hold, patient had repeat paracentesis by interventional radiology, and over 4.7 L of fluids were removed from the peritoneal cavity, and that will definitely improved the pleural effusions which are mostly related to his ascites. Reevaluated today on 02/28/20, patient remains intubated and mechanically ventilated, his ventilator settings are assist control rate of 16 volume is 500 FiO2 is 35%, PEEP at 8. ABG showed a pO2 of 92 pCO2 of 33 pH of 7.38. Patient remains on propofol at 50 mcg/kg/m, he is on bicarb but I cut it down to 25 ML per hour drip. On norepinephrine at 0.8 mcg/kg/m, and vasopressin at 0.03 units per minutes. Patient is also on TPN. Urine output is ranging between 50-100 m L/h. Patient had a total of 4.7 L drained from his peritoneal cavity/paracentesis, and at least 3 L drip spontaneously from the site of the paracentesis into a collecting bag. Fluid so far is nondiagnostic, does not seem to be infected, it is basically transudate of fluid. Patient did receive yesterday albumin and Lasix, not a significant response was noted with the Lasix. But his urine output improved more so after the paracentesis, and I suspect that the patient may have had abdominal compartment syndrome improved with paracentesis. Patient remains on broad-spectrum antibiotics for pres umptive abdominal sepsis, WBC count is 24.2 hemoglobin is 9.2. Electrolytes are relatively normal. Chest x-ray showed small bilateral pleural effusions, improved compared to the chest x-ray, and I believe that's mostly because the patient had significant amount of fluid drained with the paracentesis done yesterday. Ultrasound of the liver yesterday showed liver length of 16.1, it was heterogeneous, and there was evidence of abdominal ascites in the right upper quadrant with right pleural effusion. Reevaluated today on 03/01/20, patient remains in the ICU, intubated and mechanically ventilated. His ventilator settings are assist control rate of 16 FiO2 is 35% tidal volume is 500 PEEP is 5. Patient remains on norepinephrine at 0.17 mcg/kg/m, he is also on propofol at 50 mcg/kg/m, TPN and 0.9 normal saline at 10 mL per hour. Chest x-ray continues to show by basilar atelectasis with s mall pleural effusions. ABG showed a pO2 of 88 pCO2 of 31 pH of 7.57, hence his rate was cut down to 12. And FiO2 was increased to 40%. WBC count is 13.6 hemoglobin is 8.3. Basic metabolic profile is normal except for low potassium of 3.1. Patient remains sedated, not quite ready for any weaning trials, however will try to assess mental status of possible off propofol. Patient was reevaluated today on 03/02/20, remains in the ICU, intubated and mechanically ventilated. Patient remains on assist control rate of 10 tidal volume is 500 FiO2 is 50% and PEEP of 5. ABG earlier before the rate changed to 10 showed a pO2 of 65 pCO2 of 33 pH of 7.61. Patient remains on norepinephrine at 0.09 mcg/kg/m, he is on propofol at 30 mcg/kg/m he is also on enteral feeding and 0.9 normal saline was added today at 100 mL per hour. Patient seems to be developing a picture of contraction metabolic alkalosis with slight respiratory alkalosis. Hence I have recommended hydrating the patient, discontinued Lasix, and recommended Diamox. He will receive Diamox at 250 mg IV push every 12 hours. Patient seems to have decent urine output, his ascites and bipedal edema seems to be improving. I believe the patient may be actually developing contraction alkalosis. I have discontinued his TPN, and kept him on enteral feeding. WBC count today is 12.2 hemoglobin is 9.1. Electrolytes are normal except for low potassium of 2.9 which is not unusual considering that his pH is 7.60. That is being corrected. And his bicarb is 33 today. Chest x-ray shows bilateral pleural effusions small, previous ultrasound showed not large enough to consider thoracentesis. Both improved significantly post paracentesis. Reevaluated today on 03/18/20, patient remains in the ICU, remains intubated and mechanically ventilated. The main issue on this patient today seems to be related to bleeding around the tracheostomy site. Hence his Lovenox has been placed on hold, patient is requiring even a unit of packed RBCs this morning for low hemoglobin in the range of 6.5. He is now on assist control rate of 10 tidal volume is 500 FiO2 is 60% and PEEP is 5. ABG this morning showed a pO2 of 75 pCO2 of 27 pH of 7.48. Patient is on TPN at 55 ML per hour, his IV fluid will be cut down from 75 mL per hour to 25 mL per hour. Remains on Eraxis and on Zosyn, and I have held his Lovenox because of the bleeding around the tracheostomy site and the patient is requiring a unit of packed RBCs this morning. WBC count today is 12.9 hemoglobin 6.5. PTT is normal PT is normal. Electrolytes showed elevated sodium of 145 potassium is low at 3.0 BUN is 22 creatinine is 0.53. Yesterday after evaluating the patient, I recommended a paracentesis, and this was done by interventional radiology. Patient had 5.7 L of straw-colored fluid removed from his peritoneal cavity. And this was done by ultrasound guidance. Next x-ray today showed progression of the left lung infiltrate, however I believe this is most likely related to aspiration of blood from the tracheostomy site bleeding. Objective - Vital Signs Vital signs: Vital Signs Temp 97.1 F L 03/18/20 12:00 Pulse 106 H 03/18/20 13:00 Resp 13 03/18/20 13:00 BP 114/69 03/18/20 13:00 Pulse Ox 95 03/18/20 13:00 Intake & Output 03/17/20 03/18/20 03/18/20 18:59 06:59 18:59 Intake Total 1946.96 2656.8333 1260 Output Total 81666 1620 350 Balance -9333.04 1036.8333 910 Weight 68.8 kg 63.8 kg Intake: IV 1913 1596 950 Albumin Human 25% 50 ml 50 In Empty Bag 1 bag @ 50 mls/hr IVPB Q1H [facility] Rx#: [id number] Anidulafungin 100 mg In 100 100 Sodium Chloride 0.9% 100 ml @ 84 mls/hr IVPB DAILY [facility] Rx#:[id number] MVI 605 148 187 Magnesium Sulfate-D5w Pmx 100 1 gm In Dextrose/Water 1 100ml.bag @ 100 mls/hr IVPB Q1H [facility] Rx#: [id number] Piperacillin-Tazobactam 3 100 100 .375 gm In Sodium Chloride 0.9% 100 ml @ 25 mls/hr IVPB Q8HR [facility] Rx# :[id number] Potassium Chloride 10 meq 100 In Water For Injection 1 100ml.bag @ 100 mls/hr IVPB Q1H [facility] Rx#: [id number] Potassium Chloride 20 meq 100 In Water For Injection 1 100ml.bag @ 50 mls/hr IVPB Q2H [facility] Rx#: [id number] Pressure bag 33 36 15 Sodium Chloride 0.9% 1, 825 900 150 000 ml @ 75 mls/hr IV . [id number] [facility] Rx#:[id number] Sodium Phosphate 10 mmol 100 In Sodium Chloride 0.9% 100 ml @ 50 mls/hr IVPB ONCE ONE Rx#:[id number] Intake, IV Titration 33.96 1060.8333 Amount Mvi, Adult No.4 with Vit 1060.8333 K 10 ml Trace (Conc-1Ml/ Dose) 1 ml Sodium Acetate 40 meq Potassium Acetate 30 meq Calcium Gluconate 1 gm Magnesium Sulfate gm 0.75 gm Potassium Phosphate 10 mmol In Amino Acid 5%-D15w 1,000 ml @ 55 mls/hr IV . [id number] [facility] Rx#:[id number] Norepinephrine 8 mg In 33.96 Sodium Chloride 0.9% 250 ml @ 0.05 MCG/KG/MIN 5. 824 mls/hr IV .Q24H [facility] Rx#:[id number] Blood Product 310 Rc As-1 Unit 310 [id number] Output: Gastric Drainage 600 Drainage 4000 Right Lower Lateral 4000 Abdomen Paracentesis site Urine 1580 820 350 Stool 200 Other 5700 Other: Voiding Method Indwelling Catheter Indwelling Catheter ABP, PAP, CO, CI - Last Documented Arterial Blood Pressure 139/67 - Exam GENERAL EXAM: Intubated sedated 64-year-old white male, mechanically ventilated, via tracheostomy. HEAD: Normocephalic/atraumatic. ENT: PERRLA, EOMI, no icterus, tracheostomy is intact except for bleeding around the tracheostomy site NECK: No masses, no JVD, no thyroid enlargement, no adenopathy. Midline tracheostomy in place, patient connected to the ventilator with assist control mode of ventilation CHEST: No chest wall deformity. Symmetrical expansion. LUNGS: Fine crackles at the bases. CVS: Regular rate and rhythm, normal S1 and S2, no gallops, no murmurs, no rubs ABDOME less distended and less tender today. and abdominal incision is clean dry and intact, well approximated and healed, yvonne are in place, intact, the surgical yvonne are still in place EXTREMITIES: No clubbing, 2+ bipedal edema, good pulses bilaterally MUSCULOSKELETAL: Significant motor weakness in all 4 extremities. The patient has diffuse anasarca and edema in all 4 extremities. SKIN: No rashes CENTRAL NERVOUS SYSTEM: Arousable, patient is on propofol, follows simple instructions, seems to be generally and profoundly weak. - Labs CBC & Chem 7: 03/18/20 08:11 03/18/20 09:27 Labs: Abnormal Lab Results - Last 24 Hours (Table) 03/17/20 03/18/20 03/18/20 Range/Units 17:23 00:24 05:02 WBC (3.8-10.6) k/uL RBC (4.30-5.90) m/uL Hgb (13.0-17.5) gm/dL Hct (39.0-53.0) % MCV (80.0-100.0) fL MCHC (31.0-37.0) g/dL RDW (11.5-15.5) % Plt Count (150-450) k/uL Neutrophils # (Manual) (1.3-7.7) k/uL APTT (22.0-30.0) sec ABG pH (7.35-7.45) ABG pCO2 (35-45) mmHg ABG pO2 (83-108) mmHg ABG HCO3 (21-25) mmol/L ABG O2 Saturation (94-97) % Potassium 2.9 L (3.5-5.1) mmol/L Chloride 120 H (98-107) mmol/L Carbon Dioxide (22-30) mmol/L BUN 22 H (9-20) mg/dL Creatinine 0.53 L (0.66-1.25) mg/dL Glucose 127 H (74-99) mg/dL POC Glucose (mg/dL) 143 H 124 H (75-99) mg/dL Calcium 7.8 L (8.4-10.2) mg/dL Crossmatch 03/18/20 03/18/20 03/18/20 Range/Units 05:02 05:04 05:35 WBC 12.9 H (3.8-10.6) k/uL RBC 1.99 L (4.30-5.90) m/uL Hgb 6.5 L* D (13.0-17.5) gm/dL Hct 20.7 L (39.0-53.0) % MCV 104.1 H (80.0-100.0) fL MCHC (31.0-37.0) g/dL RDW 16.4 H (11.5-15.5) % Plt Count 120 L (150-450) k/uL Neutrophils # (Manual) 10.80 H (1.3-7.7) k/uL APTT (22.0-30.0) sec ABG pH 7.48 H (7.35-7.45) ABG pCO2 27 L (35-45) mmHg ABG pO2 75 L (83-108) mmHg ABG HCO3 20 L (21-25) mmol/L ABG O2 Saturation 97.3 H (94-97) % Potassium (3.5-5.1) mmol/L Chloride (98-107) mmol/L Carbon Dioxide (22-30) mmol/L BUN (9-20) mg/dL Creatinine (0.66-1.25) mg/dL Glucose (74-99) mg/dL POC Glucose (mg/dL) 134 H (75-99) mg/dL Calcium (8.4-10.2) mg/dL Crossmatch 03/18/20 03/18/20 03/18/20 Range/Units 06:54 08:11 08:11 WBC 17.9 H (3.8-10.6) k/uL RBC 2.58 L (4.30-5.90) m/uL Hgb 8.2 L D (13.0-17.5) gm/dL Hct 26.7 L (39.0-53.0) % MCV 103.6 H (80.0-100.0) fL MCHC 30.5 L (31.0-37.0) g/dL RDW 16.9 H (11.5-15.5) % Plt Count (150-450) k/uL Neutrophils # (Manual) (1.3-7.7) k/uL APTT 21.1 L (22.0-30.0) sec ABG pH (7.35-7.45) ABG pCO2 (35-45) mmHg ABG pO2 (83-108) mmHg ABG HCO3 (21-25) mmol/L ABG O2 Saturation (94-97) % Potassium (3.5-5.1) mmol/L Chloride (98-107) mmol/L Carbon Dioxide (22-30) mmol/L BUN (9-20) mg/dL Creatinine (0.66-1.25) mg/dL Glucose (74-99) mg/dL POC Glucose (mg/dL) (75-99) mg/dL Calcium (8.4-10.2) mg/dL Crossmatch See Detail 03/18/20 03/18/20 Range/Units 09:27 12:57 WBC (3.8-10.6) k/uL RBC (4.30-5.90) m/uL Hgb (13.0-17.5) gm/dL Hct (39.0-53.0) % MCV (80.0-100.0) fL MCHC (31.0-37.0) g/dL RDW (11.5-15.5) % Plt Count (150-450) k/uL Neutrophils # (Manual) (1.3-7.7) k/uL APTT (22.0-30.0) sec ABG pH (7.35-7.45) ABG pCO2 (35-45) mmHg ABG pO2 (83-108) mmHg ABG HCO3 (21-25) mmol/L ABG O2 Saturation (94-97) % Potassium 3.0 L (3.5-5.1) mmol/L Chloride 121 H (98-107) mmol/L Carbon Dioxide 21 L (22-30) mmol/L BUN 22 H (9-20) mg/dL Creatinine 0.53 L (0.66-1.25) mg/dL Glucose 119 H (74-99) mg/dL POC Glucose (mg/dL) 140 H (75-99) mg/dL Calcium 8.1 L (8.4-10.2) mg/dL Crossmatch Assessment and Plan Assessment: 1. Acute hypoxic respiratory failure secondary to ongoing aspiration. The patient has developed recurrent aspiration. #2. Acute cardiac pulmonary arrest on 02/26/2020 related to septic shock, patient required a brief CPR, was intubated and fluid resuscitated, and she is currently off pressors and he is hemodynamicaly stable #3. Increased bibasilar opacities and a chest x-ray shows bilateral pleural effusions.this is consistent with aspiration pneumonia, and the patient has a gram-negative bacillus in his sputum. #4. recurrent bowel obstruction. The patient has a high-grade bowel obstruction. Seems to have resolved. #5. Massive ascites, status post high-volume paracentesis, on 02/27/2020 with removal of 8 L of ascitic fluid, and repeat paracentesis on 2019 would removal of 6 L of fluid and then 4.5 liters on 03/09/2020, slight abdominal distention today's evaluation. There is some recurrence distention the abdomen and possibly some recurrent ascites. Last paracentesis was done on 02/15, and 5.7 L removed. #6. Non-anion gap metabolic acidosis related to septic shock, current serum bicarbonate her 18 #7. hypotension secondary to above. Resolved. #8. Elevated d-dimer, nonspecific, doubt possibility of pulmonary embolism. However the patient does have positive DVT. #9. Diverticulitis, status post lower anterior resection, takedown of splenic flexure and partial omentectomy #10. Alcohol abuse with alcohol withdrawal #11. Recent history dark black stools the possibility of upper GI bleeding, negative EGD #12. Altered mental status, related to metabolic encephalopathy, #13. History of diverticular disease #14 intermittent episodes of bleeding around the tracheostomy site, would hold Lovenox for the next 24 hours, and possibly restart once the bleeding is completely under control. Otherwise may have to seriously consider a Marianne filter placement. Recommendation: Continue present supportive care measures. Continue TPN. Continue IV Zosyn and axis. Continue mechanical ventilation, and intermittently try weaning with a pressure support and CPAP. Patient did tolerate pressure support and CPAP yesterday. However because of his tracheostomy site bleeding, would hold on further weaning for today. Hold Lovenox for the next 24 hours. Or possibly adjust the dose down in the next 24 hours. Decrease hydrocortisone. Condition remains critically ill, prognosis is extremely guarded. Critical care time is over 30 minutes Time with Patient: Greater than 30
--- NOTE | 2020-03-18 14:51 | P.PN ---
Subjective Progress Note Date: 03/18/20 Principal diagnosis: Intermediate probability VQ scan, rule out possibility of pulmonary embolism This is a 64-year-old white male patient status post low anterior resection for strictures and diverticular disease, and this is postoperative day #6. Following his surgery on February 08 patient had a thrombus discomfort within the distal popliteal vein in his left leg, on the liver night patient had a CT angiogram of the chest which was a suboptimal study and did not reveal any large saddle all of central pulmonary emboli. The computed tomography scan showed evidence of small bilateral pleural effusions and multifocal groundglass opacities that could relate to pulmonary edema and/or pneumonia. His chest x- ray from February 11 showed bilateral infiltrates that could be consistent with pneumonia or heart failure. VQ scan showed indeterminate probability for pulmonary embolism. Patient has been confused, apparently he does have history of chronic EtOH, but it has been 60 since his admission, he remains very confused, he is on 3 L of oxygen and the pulse ox of 95%, he was started on heparin infusion for DVT in his left leg. We did not think there was a pulmonar y embolism based on his workup. His brain CT showed no acute intracranial abnormality. In addition there is a possibility of GI bleeding as the patient has been passing some dark stools. Is not appear to be in any respiratory distress, he remains lethargic, confused. Neurology is following, EEGs in progress. Dr. Araujo is planning on EGD tomorrow for evaluation of black stools. On 02/14/2020 patient seen in follow-up on general medical surgical floor his heparin drip is off, his 0.9 normal saline running at 75 ML per hour, appears to be more awake on today's exam, although still confused, she is only oriented to percent, no agitation. No signs of respiratory difficulty, he is on 3 L of oxygen pulse ox is 95%, hemodynamically stable, his abdomen is slightly tender postsurgery, his incision covered with dressing, his been afebrile, breathing is nonlabored, lung sounds reveal a few basilar crackles, no rhonchi or wheezing. Surgery is planned and on EGD today, neurology is following, EEG revealed background slowing of moderate degree suggestive of generalized cerebral dysfunction related to toxic metabolic encephalopathy. Today's hemoglobin is 8.6, had one bowel movement this morning. On 02/15/2020 patient seen in follow-up on general medical surgical floor, patient had EGD done yesterday which did not reveal any active bleeding, patient was restarted on heparin infusion for evidence of DVT in his lower extremity, no worsening dyspnea, patient is still on and off lethargic, but appears to be in no acute distress. He is on 3 L of oxygen pulse ox of 95%, his been afebrile, completed chest pain. No hemoptysis. Today's hemoglobin is 9.0. On 02/25/2020 we were reconsulted in view of significant clinical deterioration last night, rapid response team was called, alva gama was activated at 0243 in the morning on 02/26/2020. Apparently patient was having ongoing abdominal pain for the past few days prior to the event, he was believed to have ileus. His abdominal CT of abdomen and pelvis was done on 02/19/2020 showing postoperative changes in the sigmoid colon, proximal to this level there was abnormal thickening of the right colon, some thickened small bowel loops were also present, no is no evidence of free air, there was evidence of increased amount of ascites. There was interval development of bilateral pleural effusions and associated atelectasis. Past few days patient also developed a low urine output urology also consulted on the case for difficult Lemus insertion and possible urinary retention. Yesterday on 02/25/2020 ultrasound abdomen showed moderate ascites in the right flank. His abdomen continued to be more distended and painful, patient was eating some oral intake, however his blood pressures were running on the lower side, his urine output continued to be low, there was paracentesis planned a possibility of ascites. Last night patient developed hypothermia, and hypotension. Patient became unresponsive, and there was no pal pable pulse. CPR was started and immediately patient became responsive, CPR was stopped, patient was emergently intubated placed on mechanical ventilator and transferred to the intensive care unit. ID service has been following, patient's antibiotic coverage includes daptomycin. This morning he seen in the intensive care unit, sedated, intubated, on assist-control mode of ventilation, with a rate of 16, tidal planning is 500, FiO2 of 50%, and PEEP of 5. This was blood gases showed pO2 of 88, pCO2 of 29, and pH is 7.34. Patient is hypotensive, he is requiring levo fed at 0.43 mics per kilo per minute over 25 mics per minute, Diprivan and is at 40 mics per kilo per minute, patient has rec eived fluid resuscitation, yesterday she had received 2 L of fluid from the surgical team earlier in the day, and he received additional 2 L bolus after his cardiac pulmonary arrest early this morning, his maintenance IV fluids are currently infusing at a rate of 75 ML per hour. Patient kidney to be hypotensive, we gave him an additional liter fluid bolus today, and she will be started on a vasopressin infusion for refractory hypotension. Blood cultures have been sent, pending at this time. Prior blood cultures and sputum culture. Patient's abdomen remains very tense, distended, firm, with the area of redness and discoloration, and induration near the mid abdominal surgical incision. Avinash srinivasan has a lot of generalized swelling, he is weeping from the catheter insertion sites. He had right femoral central line catheter placed by Dr. Jarrell at the bedside and a right radial art line placed for close hemodynamic monitoring. This morning's lab work has been reviewed showing squamous cell count of 21.8, hemoglobin of 8.9, sodium of 137, potassium is 4.1, chloride is 119, CO2 is 10, BUN is 10 and creatinine 0.64, patient was given 2 A of sodium bicarbonate. On 03/03/2020 patient seen in follow-up in the intensive care unit, he remains intubated, and sedated, on assist-control mode of ventilation, with a rate of 10, tidal lung is 500, FiO2 of 50% and PEEP of 5, this morning blood gases revealed pO2 of 116, pCO2 37, and pH of 7.51. His current IVs include 0.9 normal seen at a rate of 10 ML per hour, levothyroid is a 6 mics per minute, propofol is currently off, and patient is receiving nutritional support with vital AF 1.2 at a rate of 10 ML per hour. Today's chest x-ray shows stable diffuse interstitial pattern with bilateral infiltrates and pleural effusion that are stable in appearance. His labs have been reviewed showing with blood cell count of 13.8, hemoglobin of 8.9, sodium 144, potassium is 3.6, chloride is 113, and the rest of electrolytes and renal profile were unremarkable. Patient is passing some liquid green stools, abdomen is nontender, mid abdominal incision is clean dry and intact, he has been tolerating tube feedings. Patient is on antibiotics including daptomycin, Diflucan, and Zosyn On 03/04/2020 patient seen in follow-up in the intensive care unit, his been off all sedation for 48 hours, he remains very minimally responsive, she opens his eyes slightly to painful stimuli, still very drowsy, encephalopathic, remains on ventilator support, current vent settings are assist control mode of ventilation with a rate of 10, tidal legs 500, FiO2 of 40% and PEEP of 5, and dyspneic blood gases showed pO2 of 102, pCO2 34 and pH of 7.49. Patient is currently on 0.9 normal saline at rate of 100 ML per hour, levo fed is at 10 mics per minute, no other drips, vital AF for nutritional support at 17 with a goal 17. Has not been able to wean off the vasopressors, patient remains on Solu-Cortef Cortef at 50 mg every 12 hours, we'll adjust the dose to 26 hours. Patient is tolerating tube feedings, he is passing liquid bowel movements, fecal management system was inserted, is on antibiotics in the form of Zosyn and daptomycin. he has been afebrile, no new growth on his cultures. Abdomen is much less distended, is soft, his mid abdominal incision is clean dry and intact, yvonne are intact, Lemus catheter is in place patient is producing 15-35 ML per hour. Chest x-ray showing basilar atelectasis, probable left pleural effusion, and there is some improvement in aeration of the right lung base. Remains on on anticoagulation in the form of Lovenox 60 mg twice daily. In sinus mechanism on the monitor. Patient has significant amount of generalized edema in his upper and lower extremities, and truncal edema. On 2019 patient seen in follow-up in the intensive care unit, she remains intubated, she still very lethargic, his Diprivan and has been on hold for last 72 hours, current vent settings are assist-control with a rate of 10, tidal volume is 500, FiO2 40%, and PEEP of 5. Patient had pressure-support trials , she was placed on assist-control mode overnight. No acute events overnight, currently down to 3.5 mics per minute on the levo fed infusion, 0.9 normal saline at 100 ML per hour, remains on the nutritional support with vital AF at a rate of 17 with a goal a 17, tolerating tube feedings well, he is passing liquid stools, fecal management system is in place, in sinus mechanism, his been afebrile, remains on antibiotics . Blood culture, ascites fluid cultures have been negative, sputum was only positive for Pita, patient is covered with Zosyn, daptomycin and Diflucan. Abdomen is soft, nontender, demonstrates incisions clean dry and intact, yvonne are intact. Patient has significant generalized edema, but has been requiring vasopressor support. Renal function is within normal limits, today's labs have been reviewed, sodium is 145, potassium is 3.3, chloride is 118, BUN 17 creatinine 0.7 On 03/06/2020 patient remains lethargic, he withdraws to painful stimuli, his Diprivan has been on hold for last 4 days, he is not given any narcotics or sedatives, per nursing staff at times she opens eyes to voice, and is able to weakly squeeze hands on command, appears to be no acute distress, remains on assist control mode of ventilation with a rate of 10, tidal and is 500, FiO2 of 40% and PEEP of 5, this point his blood gases show pO2 117, pCO2 34, and pH of 7.45, FiO2 is down to 35%, his creatinine 0.9 normal seen at a rate of 40 more per hour, levo fed is at 3 mics per minute. 2 feedings are on hold for tracheostomy and PEG tube placement today, yesterday he had paracentesis at the bedside with removal of 6 L of straw-colored ascitic fluid. Brain CT was com pleted showing cerebral atrophy, no acute intracranial abnormality. No change from most prior CT of the brain from 03/04/2020. Today's labs have been reviewed showing white blood cell count of 16.4, hemoglobin of 8.8, sodium 146, potassium 3.5, chloride is 122, CO2 24, B1 17 creatinine 0.71. he is afebrile. No new growth on the cultures, remains on empiric antibiotics, daptomycin, Zosyn. On 03/07/2020 patient seen in follow-up in the intensive care unit. Yesterday he had his tracheostomy placed, this morning she remains on assist-control mode of ventilation with a rate of 10, tidal legs 500, FiO2 of 35% and PEEP of 5, this morning blood gases reveal pO2 of 99%, pCO2 31, and pH of 7.44. He remains quite encephalopathic, sleepy, withdraws from painful stimuli but he is unable to follow commands, he has a severe generalized weakness and swelling, he is unable to squeeze hands on command. Currently on 0.9 normal seen at a rate of 50 ML per hour, levo fed is at 0.06 mics per kilo per minute, no other drips, his tube feedings are on hold, yesterday PEG tube could not be placed related to abdominal wall edema, may have to place a Dobbhoff tube for tube feedings. Last night NG tube placement attempts were unsuccessful. Lung sounds are clear, diminished at the bases, his abdomen is soft, slightly tender, abdominal incision is clean dry and intact, yvonne are intact. Patient is status post large volume paracentesis the day before yesterday would removal of 6 L of ascitic fluid. Antibiotics in the form of daptomycin, fluconazole, and Zosyn. Patient has been afebrile, no new growth on the cultures. And is producing liquid stool, fecal management system is in place. On 03/17/2020 patient seen in follow-up in the intensive care unit, he remains encephalopathic, however he seems to be a bit more responsive to touch, and voice, he remains trached to the ventilator, on assist control mode of ventilation with a rate of 10, tidal volume is 500, FiO2 of 40% and PEEP of 9. His blood gas this morning revealed pO2 of 96, pCO2 of 30, and pH of 7.38 this was done and FiO2 of 40%. She remains on small dose of levo fed at 0.03 mics per kilo per minute, he has some IV fluids infusing in rate is 75 ML per hour. No other drips, remains on Zosyn for antibiotic coverage, in addition to your axis, his sputum culture was positive for Klebsiella pneumonia, and Pita albicans, blood cultures have been negative, he is some ascites fluid has shown no growth, he remains on TPN, his NG tube remains to low intermittent suction, she was still having increased gastric drainage and for that reason patient's tube feedings have been on hold, his abdomen becoming increasingly more distended, and today we will request for interventional radiology to proceed with the ultrasound-guided paracentesis. Patient remains very generally swallowing, with increased edema in his trunk, and upper and lower extremities, today's labs have been reviewed, showing left tonsil, 17.6, hemoglobin of 8.2, his platelet count was 185, sodium is 142, potassium 3.8, chloride was 121, CO2 was 18, BUN is 26 and creatinine 0.68. His chest x-ray today showed stable bilateral lower lobe infiltrate and small effusion. Objective - Vital Signs Vital signs: Vital Signs Temp 97.1 F L 03/18/20 12:00 Pulse 106 H 03/18/20 13:00 Resp 13 03/18/20 13:00 BP 114/69 03/18/20 13:00 Pulse Ox 95 03/18/20 13:00 Intake & Output 03/17/20 03/18/20 03/18/20 18:59 06:59 18:59 Intake Total 1946.96 2656.8333 1260 Output Total 96286 1620 350 Balance -9333.04 1036.8333 910 Weight 68.8 kg 63.8 kg Intake: IV 1913 1596 950 Albumin Human 25% 50 ml 50 In Empty Bag 1 bag @ 50 mls/hr IVPB Q1H [facility] Rx#: [id number] Anidulafungin 100 mg In 100 100 Sodium Chloride 0.9% 100 ml @ 84 mls/hr IVPB DAILY [facility] Rx#:[id number] MVI 605 660 385 Magnesium Sulfate-D5w Pmx 100 1 gm In Dextrose/Water 1 100ml.bag @ 100 mls/hr IVPB Q1H [facility] Rx#: [id number] Piperacillin-Tazobactam 3 100 100 .375 gm In Sodium Chloride 0.9% 100 ml @ 25 mls/hr IVPB Q8HR [facility] Rx# :[id number] Potassium Chloride 10 meq 100 In Water For Injection 1 100ml.bag @ 100 mls/hr IVPB Q1H [facility] Rx#: [id number] Potassium Chloride 20 meq 100 In Water For Injection 1 100ml.bag @ 50 mls/hr IVPB Q2H [facility] Rx#: [id number] Pressure bag 33 36 15 Sodium Chloride 0.9% 1, 825 900 150 000 ml @ 75 mls/hr IV . [id number] [facility] Rx#:[id number] Sodium Phosphate 10 mmol 100 In Sodium Chloride 0.9% 100 ml @ 50 mls/hr IVPB ONCE ONE Rx#:[id number] Intake, IV Titration 33.96 1060.8333 Amount Mvi, Adult No.4 with Vit 1060.8333 K 10 ml Trace (Conc-1Ml/ Dose) 1 ml Sodium Acetate 40 meq Potassium Acetate 30 meq Calcium Gluconate 1 gm Magnesium Sulfate gm 0.75 gm Potassium Phosphate 10 mmol In Amino Acid 5%-D15w 1,000 ml @ 55 mls/hr IV . [id number] [facility] Rx#:[id number] Norepinephrine 8 mg In 33.96 Sodium Chloride 0.9% 250 ml @ 0.05 MCG/KG/MIN 5. 824 mls/hr IV .Q24H [facility] Rx#:[id number] Blood Product 310 Rc As-1 Unit 310 [id number] Output: Gastric Drainage 600 Drainage 4000 Right Lower Lateral 4000 Abdomen Paracentesis site Urine 1580 820 350 Stool 200 Other 5700 Other: Voiding Method Indwelling Catheter Indwelling Catheter ABP, PAP, CO, CI - Last Documented Arterial Blood Pressure 139/67 - Exam GENERAL EXAM: Sedated, but slightly more arousable on today's exam, remains encephalopathic, 64-year-old white male, trached to the mechanical ventilator on assist-control mode of ventilation, in no acute distress HEAD: Normocephalic/atraumatic. EYES: Normal reaction of pupils, equal size. Conjunctiva pink, sclera white. NOSE: Clear with pink turbinates. THROAT: No erythema or exudates. NECK: No masses, no JVD, no thyroid enlargement, no adenopathy. Midline tracheostomy in place, patient connected to the ventilator with assist control mode of ventilation CHEST: No chest wall deformity. Symmetrical expansion. LUNGS: Equal air entry with no crackles, wheeze, rhonchi or dullness. CVS: Regular rate and rhythm, normal S1 and S2, no gallops, no murmurs, no rubs ABDOMEN: Less distended and firm on today's exam compared to last week, mild tenderness to palpation, rigidity, and abdominal incision is clean dry and intact, well approximated and healed, yvonne are in place, intact EXTREMITIES: No clubbing, 2+ upper and lower extremity edema, patient has a weeping edema with the drainage from the catheter insertion sites no cyanosis, 2+ pulses and upper and lower extremities. MUSCULOSKELETAL: Muscle strength and tone normal. SPINE: No scoliosis or deformity SKIN: No rashes CENTRAL NERVOUS SYSTEM: Unable to assess, patient is very drowsy, encephal opathic, he is trached to the ventilator. No focal deficits, tone is normal in all 4 extremities. - Labs CBC & Chem 7: 03/18/20 08:11 03/18/20 09:27 Labs: Abnormal Lab Results - Last 24 Hours (Table) 03/17/20 03/18/20 03/18/20 Range/Units 17:23 00:24 05:02 WBC (3.8-10.6) k/uL RBC (4.30-5.90) m/uL Hgb (13.0-17.5) gm/dL Hct (39.0-53.0) % MCV (80.0-100.0) fL MCHC (31.0-37.0) g/dL RDW (11.5-15.5) % Plt Count (150-450) k/uL Neutrophils # (Manual) (1.3-7.7) k/uL APTT (22.0-30.0) sec ABG pH (7.35-7.45) ABG pCO2 (35-45) mmHg ABG pO2 (83-108) mmHg ABG HCO3 (21-25) mmol/L ABG O2 Saturation (94-97) % Potassium 2.9 L (3.5-5.1) mmol/L Chloride 120 H (98-107) mmol/L Carbon Dioxide (22-30) mmol/L BUN 22 H (9-20) mg/dL Creatinine 0.53 L (0.66-1.25) mg/dL Glucose 127 H (74-99) mg/dL POC Glucose (mg/dL) 143 H 124 H (75-99) mg/dL Calcium 7.8 L (8.4-10.2) mg/dL Crossmatch 03/18/20 03/18/20 03/18/20 Range/Units 05:02 05:04 05:35 WBC 12.9 H (3.8-10.6) k/uL RBC 1.99 L (4.30-5.90) m/uL Hgb 6.5 L* D (13.0-17.5) gm/dL Hct 20.7 L (39.0-53.0) % MCV 104.1 H (80.0-100.0) fL MCHC (31.0-37.0) g/dL RDW 16.4 H (11.5-15.5) % Plt Count 120 L (150-450) k/uL Neutrophils # (Manual) 10.80 H (1.3-7.7) k/uL APTT (22.0-30.0) sec ABG pH 7.48 H (7.35-7.45) ABG pCO2 27 L (35-45) mmHg ABG pO2 75 L (83-108) mmHg ABG HCO3 20 L (21-25) mmol/L ABG O2 Saturation 97.3 H (94-97) % Potassium (3.5-5.1) mmol/L Chloride (98-107) mmol/L Carbon Dioxide (22-30) mmol/L BUN (9-20) mg/dL Creatinine (0.66-1.25) mg/dL Glucose (74-99) mg/dL POC Glucose (mg/dL) 134 H (75-99) mg/dL Calcium (8.4-10.2) mg/dL Crossmatch 03/18/20 03/18/20 03/18/20 Range/Units 06:54 08:11 08:11 WBC 17.9 H (3.8-10.6) k/uL RBC 2.58 L (4.30-5.90) m/uL Hgb 8.2 L D (13.0-17.5) gm/dL Hct 26.7 L (39.0-53.0) % MCV 103.6 H (80.0-100.0) fL MCHC 30.5 L (31.0-37.0) g/dL RDW 16.9 H (11.5-15.5) % Plt Count (150-450) k/uL Neutrophils # (Manual) (1.3-7.7) k/uL APTT 21.1 L (22.0-30.0) sec ABG pH (7.35-7.45) ABG pCO2 (35-45) mmHg ABG pO2 (83-108) mmHg ABG HCO3 (21-25) mmol/L ABG O2 Saturation (94-97) % Potassium (3.5-5.1) mmol/L Chloride (98-107) mmol/L Carbon Dioxide (22-30) mmol/L BUN (9-20) mg/dL Creatinine (0.66-1.25) mg/dL Glucose (74-99) mg/dL POC Glucose (mg/dL) (75-99) mg/dL Calcium (8.4-10.2) mg/dL Crossmatch See Detail 03/18/20 03/18/20 Range/Units 09:27 12:57 WBC (3.8-10.6) k/uL RBC (4.30-5.90) m/uL Hgb (13.0-17.5) gm/dL Hct (39.0-53.0) % MCV (80.0-100.0) fL MCHC (31.0-37.0) g/dL RDW (11.5-15.5) % Plt Count (150-450) k/uL Neutrophils # (Manual) (1.3-7.7) k/uL APTT (22.0-30.0) sec ABG pH (7.35-7.45) ABG pCO2 (35-45) mmHg ABG pO2 (83-108) mmHg ABG HCO3 (21-25) mmol/L ABG O2 Saturation (94-97) % Potassium 3.0 L (3.5-5.1) mmol/L Chloride 121 H (98-107) mmol/L Carbon Dioxide 21 L (22-30) mmol/L BUN 22 H (9-20) mg/dL Creatinine 0.53 L (0.66-1.25) mg/dL Glucose 119 H (74-99) mg/dL POC Glucose (mg/dL) 140 H (75-99) mg/dL Calcium 8.1 L (8.4-10.2) mg/dL Crossmatch Assessment and Plan Plan: Assessment: #1. Acute hypoxic respiratory failure related to septic shock, with a possibility of abdominal sepsis, although cultures from the paracentesis fluid have been negative On 03/07/2020 patient remains trached to the mechanical ventilator on assist control mode of ventilation. Patient had a tracheostomy on 03/06/2020 #2. Acute cardiac pulmonary arrest on 02/26/2020 related to septic shock, patient required a brief CPR, was emergently intubated and fluid resuscitated, remains on high amount of vasopressor support currently in the form of norepinephrine and vasopressin #3. Increased bibasilar opacities and new small bilateral pleural effusions on the chest x-ray, related to fluid overload #4. Abdominal pain and distention, improved post-paracentesis, patient had over 8 L of fluid drained from his peritoneal cavity on 02/27/2020 #5. Massive ascites, status post high-volume paracentesis, on 02/27/2020 with removal of 8 L of ascitic fluid, and repeat paracentesis on 2019 would removal of 6 L of fluid #6. Non-anion gap metabolic acidosis related to septic shock, and has received IV fluids and bicarbonate infusion, resolved #7. Volume contraction alkalosis, secondary to paracentesis and diuretic therapy, resolved #8. Elevated d-dimer, nonspecific, doubt possibility of pulmonary embolism. CTA chest was suboptimal but did not reveal any evidence of central pulmonary embolism, VQ scan showed intermediate probability for pulmonary embolism, patient was found to have a new left leg DVT, was on Eliquis which we will place on hold right now in view of acute decompensation, and possible need for surgical intervention in view of septic shock, with a suspicion of intra- abdominal source #9. Diverticulitis, status post lower anterior resection, takedown of splenic flexure and partial omentectomy #10. Alcohol abuse with alcohol withdrawal #11. Recent history dark black stools the possibility of upper GI bleeding #12. Altered mental status, related to metabolic encephalopathy, neurology is following. On 03/07/2020 patient has been off Diprivan for the last 4 days, and he remains encephalopathic, sleepy, and unable to follow commands, withdraws from pain #13. History of diverticular disease #14. History of EtOH abuse #15. Klebsiella pneumonia in the sputum cultures, patient is currently on Zosyn for antibiotic coverage, Plan: Continue holding off sedation, patient still remains encephalopathic, however he is a bit more arousable, to tactile and verbal stimulation, we will continue pressure support trials during the day, and patient placed back on assist control mode of ventilation for the night, continue with TPN for nutritional support, patient's abdomen seems to be more distended today, we will request ultrasound-guided paracentesis by interventional radiology, we will give the patient 25 g of 25% albumin, this will be followed by a dose of Lasix, wean vasopressor support, continue with empiric antibiotics, his sputum culture was positive for Klebsiella pneumonia, no other growth on cultures. Continue GI and DVT prophylaxis, we will continue to closely follow in the intensive care unit, still having increased output from the NG tube, keep to low intermittent sucti on, surgeries following, with diminishment of the G-tube and not tube feedings to the surgery. Follow-up chest x-ray in the morning, continue to follow. I performed a history & physical examination of the patient and discussed their management with my nurse practitioner, Felipa Matute. I reviewed the nurse practitioner's note and agree with the documented findings and plan of care. Lung sounds are positive for clear breath sounds throughout the lung arias. The findings and the impression was discussed with the patient. I attest to the documentation by the nurse practitioner. Time with Patient: Greater than 30
[2020-03-18] MEDS: MVI, ADULT NO.4 WITH VIT K 10 ML, TRACE (CONC-1ML/DOSE) 1 ML, SODIUM ACETATE 40 MEQ, PO... IV SCH ×8 (16:06)
[2020-03-18] MEDS ORDERED: MVI, ADULT NO.4 WITH VIT K 10 ML, TRACE (CONC-1ML/DOSE) 1 ML, SODIUM ACETATE 30 MEQ, PO... IV SCH ×8 (17:00)
[2020-03-18 18:27] LABS: Glucose,Whole Blood 148 mg/dL (75-99)
[2020-03-18] MEDS: ENOXAPARIN 60 MG/0.6 ML SYRINGE SQ SCH (18:57)
[2020-03-18 19:05] LABS: Anisocytosis Slight; HCT 30.8 % (39.0-53.0); HGB 9.6 gm/dL (13.0-17.5); Hypochromasia Marked; MCHC 31.2 g/dL (31.0-37.0); MCV 99.3 fL (80.0-100.0); Macrocytosis Slight; Mean Platelet Volume 10.4; Platelet Count 148 k/uL (150-450); Poikilocytosis Slight; RDW 17.8 % (11.5-15.5); WBC 15.5 k/uL (3.8-10.6)
--- NOTE | 2020-03-18 20:19 | P.PN ---
Progress Note - Text Progress Note Date: 03/18/20 - Chief Complaint Abdominal surgery History of presenting complaint: This is a pleasant 64-year-old patient of . Patient been having complication to his diverticulitis. computed tomography scan on January 08. Showed some possible stricture. Hepatic steatosis. February 06- undergone low anterior resection. Epidural for pain control.patient had elevated d-dimer. Pulmonary embolism felt to be unlikely. CT was suboptimal. VQ scan was intermediate probability. Leg DVT treated with IV heparin. Had some dark stools.also patient had had altered mental status. [place] to be encephalopathy.computed tomography scan of the brain was unremarkable. EGD-no evidence of bleeding. Patient more awake after dose of baclofen cutback. changed over to xarelto.x-ray showing ileus. Patient did start having bowel movements. Repeat computed tomography scan of abdomen showed possible enteritis./Colitis.as abdomen appeared distended. Lemus catheter was placed. No urine retention.-patient become hypotensive. Had a brief cardiac and pulmonary arrest Moved to ICU. Had to be intubated. Drips include norepinephrine, vasopressin, propofol. NG tube to suction.also treated for aspiration pneumonia and abdominal wall cellulitis.ascitic fluid that was tapped was unremarkable.4.5 L of acetic fluid removed. On March 06 underwent tracheostomy.Dophoff tube was placed and then had to be removed because of abdominal distention. Patient felt to have recurrent aspiration. Today. [id number] 40s a PEEP of 5. On norepinephrine. NG tube. TPN and lipids. Patient had quite a bit of hemoptysis from his tracheal tube and also some aspects to his NG tube. Did a unit of blood was given. Also some DDAVP. Patient has been up to prevent. In sinus rhythm. Review of systems: Patient unable to provide a history Active Medications Albuterol/Ipratropium (Ipratropium-Albuterol 3 Ml Neb) 3 ml INHALATION RT-Q4H [facility] Last Admin: 03/18/20 19:58 Dose: 3 ml Documented by: Albuterol/Ipratropium (Ipratropium-Albuterol 3 Ml Neb) 3 ml INHALATION RT-Q2H PRN PRN Reason: Shortness Of Breath Or Wheezing Atorvastatin Calcium (Atorvastatin 20 Mg Tab) 20 mg OG-TUBE HS [facility] Last Admin: 03/17/20 21:24 Dose: 20 mg Documented by: Ferrous Sulfate (Ferrous Sulfate Oral Elixir 300 Mg/5 Ml Cup) 300 mg PO BID- W/MEALS [facility] Last Admin: 03/18/20 16:53 Dose: Not Given Documented by: Folic Acid (Folic Acid 1 Mg Tab) 1 mg OG-TUBE DAILY [facility] Last Admin: 03/18/20 08:25 Dose: Not Given Documented by: Hydrocortisone Sodium Succinate (Hydrocortisone Succinate 100 Mg/2 Ml Vial) 50 mg IV Q12HR [facility] Last Admin: 03/18/20 10:01 Dose: 50 mg Documented by: Piperacillin Sod/Tazobactam (Sod 3.375 gm/ Sodium Chloride) 100 mls @ 25 mls/hr IVPB Q8HR [facility] Last Admin: 03/18/20 17:09 Dose: 25 mls/hr Documented by: Anidulafungin 100 mg/ Sodium (Chloride) 100 mls @ 84 mls/hr IVPB DAILY [facility] Last Admin: 03/18/20 10:01 Dose: 84 mls/hr Documented by: Sodium Chloride (Saline 0.9%) 1,000 mls @ 20 mls/hr IV .Q24H [facility] Last Admin: 03/18/20 03:08 Dose: 75 mls/hr Documented by: Norepinephrine Bitartrate 8 mg (/ Sodium Chloride) 258 mls @ 5.824 mls/hr IV .Q24H [facility]; Protocol Last Titration: 03/17/20 10:40 Dose: 0 mcg/kg/min, 0 mls/hr Documented by: Propofol 1,000 mg/ IV Solution 100 mls @ 0 mls/hr IV .Q0M [facility]; Protocol Last Titration: 03/16/20 07:16 Dose: 0 mcg/kg/min, 0 mls/hr Documented by: Parenteral Vitamin Supplement 10 ml/ Chromium/Copper/Manganese/Seleni/Zn 1 ml/Sodium Acetate 30 meq/Potassium Acetate 30 meq/Calcium Gluconate 1 gm/Magnesium Sulfate 0.75 gm/Potassium Phosphate 10 mmol/Amino Acids/Dextrose 1,055.8333 mls @ 55 mls/hr IV .[id number] [facility] Stop: 03/19/20 11:59 Last Admin: 03/18/20 17:10 Dose: 55 mls/hr Documented by: Fat Emulsion Intravenous 250 (ml/ IV Solution) 250 mls @ 21 mls/hr IV MoWeFr [facility] Parenteral Vitamin Supplement 10 ml/ Chromium/Copper/Manganese/Seleni/Zn 1 ml/Sodium Acetate 30 meq/Potassium Acetate 30 meq/Calcium Gluconate 1 gm/Magnesium Sulfate 0.75 gm/Potassium Phosphate 10 mmol/Amino Acids/Dextrose 1,055.8333 mls @ 55 mls/hr IV .[id number] [facility] Insulin Aspart (Insulin Aspart (Novolog) 100 Unit/Ml Vial) 0 unit SQ Q6H [facility]; Protocol Last Admin: 03/18/20 18:44 Dose: 2 unit Documented by: Metoclopramide HCl (Metoclopramide 5 Mg/Ml 2 Ml Vial) 10 mg IVP Q6HR PRN PRN Reason: Nausea and Vomiting Miscellaneous Information (Magnesium Replacement Protocol 1 Each Misc) 1 each MISCELLANE DAILY PRN; Protocol PRN Reason: Per Protocol Miscellaneous Information (Potassium Replacement Protocol 1 Each Misc) 1 each MISCELLANE DAILY PRN; Protocol PRN Reason: Per Protocol Ondansetron HCl (Ondansetron 4 Mg/2 Ml Vial) 4 mg IVP Q8HR PRN PRN Reason: Nausea And Vomiting Pantoprazole Sodium (Pantoprazole 40 Mg/10 Ml Vial) 40 mg IVP BID [facility] Last Admin: 03/18/20 10:01 Dose: 40 mg Documented by: Sodium Chloride (Sodium Chloride 0.9% Flush 10 Ml Syringe) 10 ml IV Q4HR PRN PRN Reason: PICC Line Sodium Chloride (Sodium Chloride 0.9% Flush 10 Ml Syringe) 10 ml IV WEEKLY [facility] Last Admin: 03/14/20 09:12 Dose: 10 ml Documented by: Sodium Chloride (Sodium Chloride 0.9% Flush 10 Ml Syringe) 20 ml IV Q4HR PRN PRN Reason: PICC Line Tamsulosin HCl (Tamsulosin 0.4 Mg Cap.Er.24h) 0.4 mg PO HS [facility] Last Admin: 03/17/20 21:24 Dose: 0.4 mg Documented by: Thiamine HCl (Thiamine 100 Mg/Ml 2 Ml Vial) 100 mg IVP DAILY [facility] Last Admin: 03/18/20 08:25 Dose: Not Given Documented by: Physical examination: VITAL SIGNS: 97.1, 105, 19, 1 32 x 65, 94% on the ventilator GENERAL: Laying in bed, tired. Tracheostomy tube, edema EYES: Pupils equal. Conjunctiva normal. HEENT:, Dry oral cavity, OG tube NECK: JVD unable to assess; masses not palpable. Tracheostomy tube HEART: First and second heart sounds are normal; edema LUNGS: Respiratory rate increased; decreased breath sounds. ABDOMEN: Soft, distended , nontender, , area of subcutaneous swelling around the incision site. Lemus catheter PSYCH: Unable to assess NEUROLOGICAL: This open eyes occasionally INVESTIGATIONS, reviewed in the clinical context: March 18: White count 7.9 hemoglobin 8.2 platelets 157 bun 22 creatinine 0153 March 17: White count 7.6 hemoglobin 8.2 increased neutrophil March 16: White count 8.2 hemoglobin 8.2 potassium 3.8 creatinine 0.69. Chest x-ray-some improvement reported March 15: White count 7.6 hemoglobin 8.6. Distal 68 potassium 3.8 creatinine 1.03 March 13: White count 18.2 hemoglobin 9.6 platelets 253 potassium 4.2 creatinine 1.15. Chest x-ray bilateral infiltrates and fluid March 12: White count 8.8 hemoglobin 9.3 ABG-pH 7.48 pO2 76 potassium 4.4 creatinine 0.82 March 11: White count 20.9 hemoglobin 9.9 platelets 393 potassium 4.2 crit 0.77 albumin 1.9 March 10: White count 22.6 hemoglobin 9.7 platelets 366potassium 4.1 creat inine 0.67 March 09: White count 18.2, hemoglobin 9.5, platelets 369 sodium 147 potassium 4.2 creatinine 0.77 March 08: White count 98.1 hemoglobin 19.3 platelets 329 sodium 148 potassium 3.2 right 126 creatinine 0.7 to albumin 1.9 March 07: White count 24 hemoglobin 9.8 platelets 366 potassium 3.7 creatinine 0.73 White count 16.4 hemoglobin 8.8 platelets 276 potassium 3.5 creatinine 0.71 Previous testing EEG shows evidence of encephalopathy Computed tomography scan of the brain-mild atrophy 2-D echocardiogram-EF 55-60% VQ scan-intermediate probability Chest CTA-suboptimal study. Doppler ultrasound-positive for thrombus within the distal popliteal vein White count 10.2 hemoglobin 14.2 potassium 3.6 B12 some 08 Previously AST 129 ALT 50 Computed tomography scan of the abdomen from January 08-possible colitis, diverticulitis, some esophagitis, hepatic steatosis Abdominal x-ray film personally reviewed by me shows ileus Sputum growing [place] Assessment: -Acute bleeding from the tracheostomy and also aspirated from the G-tube. 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 Repeat paracentesis. 4.5 L.-repeat paracentesis is 4.4 L.. Repeat paracentesis 4 L removed -Mild hyponatremia -Hypernatremia -Macrocytic anemia. -Acute DVT in the left distal popliteal vein -Acute alcohol withdrawal syndrome with improvement -Right lower lobe pneumonia -Mild protein calorie malnutrition from decreased oral intake -Tracheostomy tube placed on March 06 -Metabolic encephalopathy-no improvement -Dobbhoff tube placed and removed -TPN and lipids Plan: ICU-prognosis remains poor. TPN lipids., ventilator., Anidulafungin. Continue supportive care. Nurse informed be that she had broken this patient's on at least 2 occasions. Patient wants everything to be done. Thank you Dr. Lee
[2020-03-18] MEDS: ATORVASTATIN 20 MG TAB OG-TUBE SCH (21:03)
[2020-03-18] MEDS: TAMSULOSIN 0.4 MG CAP.ER.24H PO SCH (21:03)
--- NOTE | 2020-03-18 22:25 | PN ---
PROGRESS NOTE DATE OF SERVICE: 03/18/2020 REASON FOR FOLLOWUP: Pneumonia. INTERVAL HISTORY: The patient remains afebrile. The patient is hemodynamically stable. FiO2 is currently stable. No significant purulent secretions in the ET or any diarrhea reported by the nursing staff. The patient is unable to provide any history. PHYSICAL EXAMINATION: Blood pressure 117/78 with a pulse of 93, temperature 98.1. He is 97% on 50% FiO2. General description is a middle-aged male lying in bed in no distress. RESPIRATORY SYSTEM: Unlabored breathing with decreased intensity of breath sounds. No wheeze. HEART: S1, S2. Regular rate and rhythm. ABDOMEN: Soft. Mildly distended. No guarding or rigidity. LABS: Hemoglobin is 9.3, white count 15.5, creatinine 0.53. DIAGNOSTIC IMPRESSION AND PLAN: Patient with an elevated white count which is multifactorial in this patient who did have a component of klebsiella aspiration pneumonia, possible oropharyngeal candidiasis and steroid effect. White count is showing a downward trend. Covered with Zosyn and Eraxis; to continue and monitor clinical course closely. MMODL / IJN: [id number] /
[2020-03-18 23:55] LABS: Glucose,Whole Blood 136 mg/dL (75-99)
[2020-03-19] MEDS: PIPERACILLIN-TAZOBACTAM 3.375 GM in SODIUM CHLORIDE 0.9% 100 ML IVPB SCH ×4 (00:07→23:37)
[2020-03-19] MEDS: INSULIN ASPART (NovoLOG) 100 UNIT/ML VIAL SQ SCH ×5 (00:07→23:37)
[2020-03-19] MEDS: IPRATROPIUM-ALBUTEROL 3 ML NEB INHALATION SCH ×7 (01:20→23:42)
[2020-03-19 04:37] LABS: ABG Base Excess -3.5 mmol/L; ABG HCO3 21 mmol/L (21-25); ABG Oxygen Saturation 96.5 % (94-97); ABG PCO2 34 mmHg (35-45); ABG PO2 80 mmHg (83-108); ABG TCO2 22 mmol/L (19-24)
[2020-03-19 05:27] LABS: Glucose,Whole Blood 147 mg/dL (75-99)
[2020-03-19 05:53] LABS: Anisocytosis Slight; Basophils % (A) 0 %; Eosinophils % (A) 0 %; HCT 25.4 % (39.0-53.0); Hypochromasia Marked; Lymphocytes # (A) 0.6 k/uL (1.0-4.8); Lymphocytes % (A) 6 %; MCH 31.1 pg (25.0-35.0); MCV 100.5 fL (80.0-100.0); Macrocytosis Moderate; Mean Platelet Volume 10.9; Monocytes # (A) 0.8 k/uL (0-1.0); Monocytes % (A) 7 %; Neutrophils # (A) 9.1 k/uL (1.3-7.7); Neutrophils % (A) 85 %; Platelet Count 105 k/uL (150-450); Poikilocytosis Slight; RBC 2.53 m/uL (4.30-5.90); RDW 17.8 % (11.5-15.5); WBC 10.7 k/uL (3.8-10.6)
[2020-03-19 06:03] LABS: African American GFR (CKD) >90 (>60 ml/min/1.73 sqM); Anion Gap 3 mmol/L; Blood Urea Nitrogen 22 mg/dL (9-20); Calcium 8.2 mg/dL (8.4-10.2); Carbon Dioxide 22 mmol/L (22-30); Chloride 121 mmol/L (98-107); Glucose 147 mg/dL (74-99); Magnesium 2.1 mg/dL (1.6-2.3); Non-African American GFR(CKD) >90 (>60 ml/min/1.73 sqM); Phosphorus 3.6 mg/dL (2.5-4.5); Sodium 146 mmol/L (137-145)
[2020-03-19 06:14] LABS: HGB 7.9 gm/dL (13.0-17.5)
--- NOTE | 2020-03-19 08:59 | XR ---
EXAMINATION TYPE: XR chest 1V DATE OF EXAM: 03/19/2020 COMPARISON: 03/18/2020 HISTORY: Shortness of breath TECHNIQUE: Single frontal view of the chest is obtained. FINDINGS: There is bilateral consolidation which is stable from prior exam. Stable small left pleura l effusion. PICC line noted. NG tube stable. Tracheostomy tube stable. Chronic rib deformities noted. No pneumothorax. Postsurgical change left humerus. IMPRESSION: 1. Pleural-parenchymal changes are stable.
[2020-03-19] MEDS: MVI, ADULT NO.4 WITH VIT K 10 ML, TRACE (CONC-1ML/DOSE) 1 ML, SODIUM ACETATE 10 MEQ, PO... IV SCH ×8 (10:00)
[2020-03-19] MEDS: ANIDULAFUNGIN 100 MG in SODIUM CHLORIDE 0.9% 100 ML IVPB SCH (10:50)
[2020-03-19] MEDS: FERROUS SULFATE ORAL ELIXIR 300 MG/5 ML CUP PO SCH ×2 (10:51→17:32)
[2020-03-19] MEDS: HYDROCORTISONE SUCCINATE 100 MG/2 ML VIAL IV SCH ×2 (10:51→20:36)
[2020-03-19] MEDS: FOLIC ACID 1 MG TAB OG-TUBE SCH (10:51)
[2020-03-19] MEDS: PANTOPRAZOLE 40 MG/10 ML VIAL IVP SCH ×2 (10:56→20:36)
[2020-03-19] MEDS: THIAMINE 100 MG/ML 2 ML VIAL IVP SCH (10:56)
--- NOTE | 2020-03-19 11:28 | CDI ---
Documentation Clarification Form Date: 03/19/2020 10:12:11 AM From: Modesta Skelton RN CCDS Admit Date: 02/07/2020 08:00:00 AM Patient Name: Murray Carter Visit Number: [id number] Discharge Date: ATTENTION: The Clinical Documentation Specialists (CDI) and [facility] Coding Staff appreciate your assistance in clarifying documentation. Please respond to the clarification below the line at the bottom and electronically sign. The CDI & [facility] Coding staff will review the response and follow-up if needed. Please note: Queries are made part of the Legal Health Record. If you have any questions, please contact the author of this message via ITS. Dr. Lee, The patient is having bleeding around the trach, peg and through the NG tube per Surgical Progress note 03/18 History/Risk Factors: 64-year-old male presented to [facility] for elective bowel resection. Risk Factors: Acute DVT in the left distal popliteal vein; Suspected Alcoholic hepatitis; Recurrent large ascites from Alcoholic liver disease. Cardiopulmonary arrest and acute hypoxic respiratory failure secondary to septic shock. Clinical Indicators: 03/18 Lab findings: PT 10.0; INR 1.0; PTT 21.1; Hgb 6.5; Hgb Redraw 8.2 Radiology findings: 03/18 CXR: Pleural -parenchymal changes demonstrate mild progression within the left upper lobe. 03/18 CXR: Pleural -parenchymal changes are stable. 03/18 Vital Signs: B/P 122/59; HR 112; Temp 97.7F Axillary; RR 19; Spo2 97% on Ventilator 03/18 Surgical Progress Note: Patient is having bleeding around the trach PEG and through NG Tube. Hemoglobin was 6.5 and he is receiving 1unit of blood. Treatment: 02/14 Heparin Iv x1; 02/14 Xarelto PO BID D/C 02/25; 02/25 Lovenox SQ Daily changed 03/01 to SQ BID d/c 03/18; 03/18 1 Unit of blood; Desmopressin Acetate IVPB x1; Consults: Heme oncology Progress note 03/18: Patient has visible bleeding and clotting around the trach. Hemoglobin did drop to 6.5 on AM lab draw. RN redraw the specimen and hgb was 8.2(felt drop was 2/2 dilution from the line the specimen was taken from.) Lovenox is on hold; Critical care team agreed to DDAVP for bleeding and oozing around trach. Recommended resuming anticoagulation (heparin drip as most easily reversible) as soon as possible. In your professional opinion, can you please clarify cause of the bleeding? Bleeding due to anticoagulants Bleeding due to please specify Other, please specify Unable to determine (Last Revision: July 2017) bleeding due to anticoagulants MTDD
--- NOTE | 2020-03-19 12:20 | P.PN ---
Subjective Progress Note Date: 03/19/20 Principal diagnosis: diverticulitis, post op DVT, VQ indeterminate for PE Pt is asleep today when seen, VSS on monitor, blood on dressing around trach. Objective - Vital Signs Vital signs: Vital Signs Temp 96.8 F L 03/19/20 08:00 Pulse 109 H 03/19/20 11:30 Resp 16 03/19/20 11:00 BP 119/79 03/19/20 10:00 Pulse Ox 96 03/19/20 11:00 Intake & Output 03/18/20 03/19/20 03/19/20 18:59 06:59 18:59 Intake Total 1640 926 650 Output Total 1215 970 565 Balance 425 -44 85 Weight 63.8 kg 63.9 kg Intake: IV 1330 896 590 Anidulafungin 100 mg In 100 100 Sodium Chloride 0.9% 100 ml @ 84 mls/hr IVPB DAILY [facility] Rx#:[id number] Desmopressin Acetate 20 50 mcg In Sodium Chloride 0. 9% 50 ml @ 200 mls/hr IVPB ONCE ONE Rx#: [id number] MVI 660 660 275 Magnesium Sulfate-D5w Pmx 100 1 gm In Dextrose/Water 1 100ml.bag @ 100 mls/hr IVPB Q1H [facility] Rx#: [id number] Piperacillin-Tazobactam 3 100 100 .375 gm In Sodium Chloride 0.9% 100 ml @ 25 mls/hr IVPB Q8HR [facility] Rx# :[id number] Potassium Chloride 20 meq 100 In Water For Injection 1 100ml.bag @ 50 mls/hr IVPB Q2H [facility] Rx#: [id number] Pressure bag 30 36 15 Sodium Chloride 0.9% 1, 190 200 100 000 ml @ 20 mls/hr IV . Q24H [facility] Rx#:[id number] Blood Product 310 Rc As-1 Unit 310 [id number] Other 30 60 Output: Gastric Drainage 700 500 400 Urine 515 470 165 Other: Voiding Method Indwelling Catheter Indwelling Catheter ABP, PAP, CO, CI - Last Documented Arterial Blood Pressure 144/74 - Constitutional General appearance: Present: no acute distress, thin - EENT Eyes: Present: anicteric sclerae - Respiratory Respiratory: bilateral: diminished (vent) - Cardiovascular Heart sounds: normal: S1, S2 - Musculoskeletal Musculoskeletal: Present: generalized weakness - Labs CBC & Chem 7: 03/19/20 05:26 03/19/20 05:26 Labs: Abnormal Lab Results - Last 24 Hours (Table) 03/18/20 03/18/20 03/18/20 Range/Units 12:57 18:15 18:50 WBC 15.5 H (3.8-10.6) k/uL RBC 3.10 L (4.30-5.90) m/uL Hgb 9.6 L (13.0-17.5) gm/dL Hct 30.8 L (39.0-53.0) % MCV (80.0-100.0) fL RDW 17.8 H (11.5-15.5) % Plt Count 148 L (150-450) k/uL Neutrophils # (1.3-7.7) k/uL Lymphocytes # (1.0-4.8) k/uL ABG pCO2 (35-45) mmHg ABG pO2 (83-108) mmHg Sodium (137-145) mmol/L Chloride (98-107) mmol/L BUN (9-20) mg/dL Creatinine (0.66-1.25) mg/dL Glucose (74-99) mg/dL POC Glucose (mg/dL) 140 H 148 H (75-99) mg/dL Calcium (8.4-10.2) mg/dL 03/18/20 03/19/20 03/19/20 Range/Units 23:52 04:32 05:23 WBC (3.8-10.6) k/uL RBC (4.30-5.90) m/uL Hgb (13.0-17.5) gm/dL Hct (39.0-53.0) % MCV (80.0-100.0) fL RDW (11.5-15.5) % Plt Count (150-450) k/uL Neutrophils # (1.3-7.7) k/uL Lymphocytes # (1.0-4.8) k/uL ABG pCO2 34 L (35-45) mmHg ABG pO2 80 L (83-108) mmHg Sodium (137-145) mmol/L Chloride (98-107) mmol/L BUN (9-20) mg/dL Creatinine (0.66-1.25) mg/dL Glucose (74-99) mg/dL POC Glucose (mg/dL) 136 H 147 H (75-99) mg/dL Calcium (8.4-10.2) mg/dL 03/19/20 03/19/20 Range/Units 05:26 05:26 WBC 10.7 H (3.8-10.6) k/uL RBC 2.53 L (4.30-5.90) m/uL Hgb 7.9 L D (13.0-17.5) gm/dL Hct 25.4 L (39.0-53.0) % MCV 100.5 H (80.0-100.0) fL RDW 17.8 H (11.5-15.5) % Plt Count 105 L (150-450) k/uL Neutrophils # 9.1 H (1.3-7.7) k/uL Lymphocytes # 0.6 L (1.0-4.8) k/uL ABG pCO2 (35-45) mmHg ABG pO2 (83-108) mmHg Sodium 146 H (137-145) mmol/L Chloride 121 H (98-107) mmol/L BUN 22 H (9-20) mg/dL Creatinine 0.50 L (0.66-1.25) mg/dL Glucose 147 H (74-99) mg/dL POC Glucose (mg/dL) (75-99) mg/dL Calcium 8.2 L (8.4-10.2) mg/dL Assessment and Plan (1) Deep vein thrombosis of left lower extremity Narrative/Plan: Pt unable to be on anticoagulation 2/2 bleeding. Consult being placed for removable IVC filter Recheck doppler of LLE and CTA to assess DVT/?PE in 3 mo to give final recs re: duration of anticoagulation Current Visit: Yes Status: Acute Priority: High Code(s): I82.402 - ACUTE EMBOLISM AND THOMBOS UNSP DEEP VEINS OF L LOW EXTREM SNOMED Code(s): 446127495 (2) Anemia Narrative/Plan: Stable Hgb today, he received 1 unit PRBCs after bleeding around trach. He did receive a dose of DDAVP. Nursing reporting persistent bleeding. Started on folic acid. Current Visit: Yes Status: Acute Priority: High Code(s): D64.9 - ANEMIA, UNSPECIFIED SNOMED Code(s): 178063674
--- NOTE | 2020-03-19 14:08 | P.PN ---
Subjective Progress Note Date: 03/19/20 CHIEF COMPLAINT: Diverticulitis HISTORY OF PRESENT ILLNESS: Patient is status post lower anterior resection, takedown of splenic flexure and partial omentectomy on 02/07/2020. The morning of 02/26/20 patient was transferred to the ICU after STEVE KUMAR was called. Patient had become hypothermic and hypotensive. Patient become unresponsive they lost pulse and CPR was initiated. Patient did require to be intubated. Patient is in the ICU. He is on mechanical ventilation. He is off of Levophed. Patient continues to have bleeding from the trach site. He did require a unit of blood yesterday. Hemoglobin today is 7.9. Now the drainage from the trach is a very dark color. It is being sent for culture. Patient's blood thinners currently on hold. He has been seen by hematology and was given a dose of DDAVP. They have also consulted vascular surgery for [place] filter placement. Afebrile. WBC 10.7 hemoglobin 7.9 PHYSICAL EXAM: VITAL SIGNS: Reviewed. GENERAL: Well-developed in no acute distress. HEENT: No sclera icterus. Extraocular movements grossly intact. Moist buccal mucosa. Head is atraumatic, normocephalic. Trach site with blood and dark discharge ABDOMEN: distended Incision clean dry and intact. NEUROLOGIC: Patient is awake and able to open eyes. ASSESSMENT: 1. Cardiopulmonary arrest and acute hypoxic respiratory failure secondary to septic shock. 2. Diverticulitis status post lower anterior resection, takedown of splenic flexure and partial omentectomy on 02/07/2020 3. Patient's abdominal distention likely related to ileus, ascites from his liver cirrhosis and possible hernia. 4. Alcohol abuse with alcohol withdrawal 5. New left leg DVT during this admission 6. ileus 7. Black stools. Resolved. No evidence of upper GI bleed on EGD. EGD was normal 8. Altered mental status likely due to cardiac arrest and superimposed toxic metabolic encephalopathy. Followed by neurology 9. Possible aspiration pneumonia 10. Severe protein calorie malnutrition 11. Liver cirrhosis with abdominal ascites status post multiple paracentesis during this admission 12. Patient status post tracheostomy for acute hypoxic respiratory failure PLAN: -Continue supportive care -Continue TPN for nutrition support -Continue NG tube for decompression -Overall condition guarded Physician Special Education Para Professional note has been reviewed by physician. Signing provider agrees with the documented findings, assessment, and plan of care. Objective - Vital Signs Vital signs: Vital Signs Temp 96.8 F L 03/19/20 08:00 Pulse 109 H 03/19/20 11:30 Resp 16 03/19/20 11:00 BP 119/79 03/19/20 10:00 Pulse Ox 96 03/19/20 11:00 Intake & Output 03/18/20 03/19/20 03/19/20 18:59 06:59 18:59 Intake Total 1640 926 650 Output Total 1215 970 565 Balance 425 -44 85 Weight 63.8 kg 63.9 kg Intake: IV 1330 896 590 Anidulafungin 100 mg In 100 100 Sodium Chloride 0.9% 100 ml @ 84 mls/hr IVPB DAILY [facility] Rx#:[id number] Desmopressin Acetate 20 50 mcg In Sodium Chloride 0. 9% 50 ml @ 200 mls/hr IVPB ONCE ONE Rx#: [id number] MVI 660 660 275 Magnesium Sulfate-D5w Pmx 100 1 gm In Dextrose/Water 1 100ml.bag @ 100 mls/hr IVPB Q1H [facility] Rx#: [id number] Piperacillin-Tazobactam 3 100 100 .375 gm In Sodium Chloride 0.9% 100 ml @ 25 mls/hr IVPB Q8HR [facility] Rx# :[id number] Potassium Chloride 20 meq 100 In Water For Injection 1 100ml.bag @ 50 mls/hr IVPB Q2H [facility] Rx#: [id number] Pressure bag 30 36 15 Sodium Chloride 0.9% 1, 190 200 100 000 ml @ 20 mls/hr IV . Q24H [facility] Rx#:[id number] Blood Product 310 Rc As-1 Unit 310 [id number] Other 30 60 Output: Gastric Drainage 700 500 400 Urine 515 470 165 Other: Voiding Method Indwelling Catheter Indwelling Catheter Indwelling Catheter # Voids 0 ABP, PAP, CO, CI - Last Documented Arterial Blood Pressure 144/74 - Labs CBC & Chem 7: 03/19/20 05:26 03/19/20 05:26 Labs: Abnormal Lab Results - Last 24 Hours (Table) 03/18/20 03/18/20 03/18/20 Range/Units 18:15 18:50 23:52 WBC 15.5 H (3.8-10.6) k/uL RBC 3.10 L (4.30-5.90) m/uL Hgb 9.6 L (13.0-17.5) gm/dL Hct 30.8 L (39.0-53.0) % MCV (80.0-100.0) fL RDW 17.8 H (11.5-15.5) % Plt Count 148 L (150-450) k/uL Neutrophils # (1.3-7.7) k/uL Lymphocytes # (1.0-4.8) k/uL ABG pCO2 (35-45) mmHg ABG pO2 (83-108) mmHg Sodium (137-145) mmol/L Chloride (98-107) mmol/L BUN (9-20) mg/dL Creatinine (0.66-1.25) mg/dL Glucose (74-99) mg/dL POC Glucose (mg/dL) 148 H 136 H (75-99) mg/dL Calcium (8.4-10.2) mg/dL 03/19/20 03/19/20 03/19/20 Range/Units 04:32 05:23 05:26 WBC (3.8-10.6) k/uL RBC (4.30-5.90) m/uL Hgb (13.0-17.5) gm/dL Hct (39.0-53.0) % MCV (80.0-100.0) fL RDW (11.5-15.5) % Plt Count (150-450) k/uL Neutrophils # (1.3-7.7) k/uL Lymphocytes # (1.0-4.8) k/uL ABG pCO2 34 L (35-45) mmHg ABG pO2 80 L (83-108) mmHg Sodium 146 H (137-145) mmol/L Chloride 121 H (98-107) mmol/L BUN 22 H (9-20) mg/dL Creatinine 0.50 L (0.66-1.25) mg/dL Glucose 147 H (74-99) mg/dL POC Glucose (mg/dL) 147 H (75-99) mg/dL Calcium 8.2 L (8.4-10.2) mg/dL 03/19/20 Range/Units 05:26 WBC 10.7 H (3.8-10.6) k/uL RBC 2.53 L (4.30-5.90) m/uL Hgb 7.9 L D (13.0-17.5) gm/dL Hct 25.4 L (39.0-53.0) % MCV 100.5 H (80.0-100.0) fL RDW 17.8 H (11.5-15.5) % Plt Count 105 L (150-450) k/uL Neutrophils # 9.1 H (1.3-7.7) k/uL Lymphocytes # 0.6 L (1.0-4.8) k/uL ABG pCO2 (35-45) mmHg ABG pO2 (83-108) mmHg Sodium (137-145) mmol/L Chloride (98-107) mmol/L BUN (9-20) mg/dL Creatinine (0.66-1.25) mg/dL Glucose (74-99) mg/dL POC Glucose (mg/dL) (75-99) mg/dL Calcium (8.4-10.2) mg/dL
[2020-03-19 14:37] LABS: Glucose,Whole Blood 146 mg/dL (75-99)
[2020-03-19] MEDS: NOREPINEPHRINE 8 MG in SODIUM CHLORIDE 0.9% 250 ML IV SCH (14:40)
--- NOTE | 2020-03-19 14:52 | P.PN ---
Subjective Progress Note Date: 03/19/20 Principal diagnosis: Acute hypoxic respiratory failure, massive ascites, liver cirrhosis, possible abdominal sepsis. This is a 64-year-old white male patient status post low anterior resection for strictures and diverticular disease, and this is postoperative day #6. Following his surgery on February 08 patient had a thrombus discomfort within the distal popliteal vein in his left leg, on the liver night patient had a CT angiogram of the chest which was a suboptimal study and did not reveal any large saddle all of central pulmonary emboli. The computed tomography scan showed evidence of small bilateral pleural effusions and multifocal groundglass opacities that could relate to pulmonary edema and/or pneumonia. His chest x- ray from February 11 showed bilateral infiltrates that could be consistent with pneumonia or heart failure. VQ scan showed indeterminate probability for pulmonary embolism. Patient has been confused, apparently he does have history of chronic EtOH, but it has been 60 since his admission, he remains very confused, he is on 3 L of oxygen and the pulse ox of 95%, he was started on heparin infusion for DVT in his left leg. We did not think there was a pulmonary embolism based on his workup. His brain CT showed no acute intracranial abnormality. In addition there is a possibility of GI bleeding as the patient has been passing some dark stools. Is not appear to be in any respiratory distress, he remains lethargic, confused. Neurology is following, EEGs in progress. Dr. Araujo is planning on EGD tomorrow for evaluation of black stools. On 02/14/2020 patient seen in follow-up on general medical surgical floor his heparin drip is off, his 0.9 normal saline running at 75 ML per hour, appears to be more awake on today's exam, although still confused, she is only oriented to percent, no agitation. No signs of respiratory difficulty, he is on 3 L of oxygen pulse ox is 95%, hemodynamically stable, his abdomen is slightly tender postsurgery, his incision covered with dressing, his been afebrile, breathing is nonlabored, lung sounds reveal a few basilar crackles, no rhonchi or wheezing. Surgery is planned and on EGD today, neurology is following, EEG revealed background slowing of moderate degree suggestive of generalized cerebral dysfunction related to toxic metabolic encephalopathy. Today's hemoglobin is 8.6, had one bowel movement this morning. On 02/15/2020 patient seen in follow-up on general medical surgical floor, patient had EGD done yesterday which did not reveal any active bleeding, patient was restarted on heparin infusion for evidence of DVT in his lower extremity, no worsening dyspnea, patient is still on and off lethargic, but appears to be in no acute distress. He is on 3 L of oxygen pulse ox of 95%, his been afebrile, completed chest pain. No hemoptysis. Today's hemoglobin is 9.0. On 02/26/2020 we were reconsulted in view of significant clinical deterioration last night, rapid response team was called, alva gama was activated at 0243 in the morning on 02/26/2020. Apparently patient was having ongoing abdominal pain for the past few days prior to the event, he was believed to have ileus. His abdominal CT of abdomen and pelvis was done on 02/19/2020 showing postoperative changes in the sigmoid colon, proximal to this level there was abnormal thickening of the right colon, some thickened small bowel loops were also present, no is no evidence of free air, there was evidence of increased amount of ascites. There was interval development of bilateral pleural effusions and associated atelectasis. Past few days patient also developed a low urine output urology also consulted on the case for difficult Lemus insertion and possible urinary retention. Yesterday on 02/25/2020 ultrasound abdomen showed moderate ascites in the right flank. His abdomen continued to be more distended and painful, patient was eating some oral intake, however his blood pressures were running on the lower side, his urine output continued to be low, there was paracentesis planned a possibility of ascites. Last night patient developed hypothermia, and hypotension. Patient became unresponsive, and there was no palpable pulse. CPR was started and immediately patient became responsive, CPR was stopped, patient was emergently intubated placed on mechanical ventilator and transferred to the intensive care unit. ID service has been following, patient's antibiotic coverage includes daptomycin. This morning he seen in the intensive care unit, sedated, intubated, on assist-control mode of ventilation, with a rate of 16, tidal planning is 500, FiO2 of 50%, and PEEP of 5. This was blood gases showed pO2 of 88, pCO2 of 29, and pH is 7.34. Patient is hypotensive, he is requiring levo fed at 0.43 mics per kilo per minute over 25 mics per minute, Diprivan and is at 40 mics per kilo per minute, patient has received fluid resuscitation, yesterday she had received 2 L of fluid from the surgical team earlier in the day, and he received additional 2 L bolus after his cardiac pulmonary arrest early this morning, his maintenance IV fluids are currently infusing at a rate of 75 ML per hour. Patient kidney to be hypotensive, we gave him an additional liter fluid bolus today, and she will be started on a vasopressin infusion for refractory hypotension. Blood cultures have been sent, pending at this time. Prior blood cultures and sputum culture. Patient's abdomen remains very tense, distended, firm, with the area of redness and discoloration, and induration near the mid abdominal surgical incision. Patient has a lot of generalized swelling, he is weeping from the catheter insertion sites. He had right femoral central line catheter placed by Dr. Jarrell at the bedside and a right radial art line placed for close hemodynamic monitoring. This morning's lab work has been reviewed showing squamous cell count of 21.8, hemoglobin of 8.9, sodium of 137, potassium is 4.1, chloride is 119, CO2 is 10, BUN is 10 and creatinine 0.64, patient was given 2 A of sodium bicarbonate. Reevaluated today on 02/27/20, patient is in the ICU, intubated and mechanically ventilated, his assist-control rate is 16 volume is 500 FiO2 is still on the percent, PEEP is 5. ABG today showed a pO2 of 104 pCO2 of 29 pH of 7.34 hence recommended that the patient gets the PEEP up to 8, and I cut down his FiO2 to 80%. Patient remains on norepinephrine at 46 mcg/m, he is also on bicarb drip, vasopressin was added today at 0.03, propofol is at 50 mcg/kg/m. Patient also remains on fluconazole and on daptomycin, his abdominal paracentesis was not therapeutic, it was mostly diagnostic, and so far the fluid does not seem to be diagnostic. Continues to have slight leakage from the site of his paracentesis, and the patient put out almost 3 L out in 24 hours from the same site where the paracentesis was done. Patient developed bilateral pleural effusions, however the ultrasound did not show enough fluid to perform a thoracentesis safely. Hence will hold on thoracentesis. Poor quality ultrasound pictures noted, cannot trust to perform safe thoracentesis on this patient. Hence we will hold, patient had repeat paracentesis by interventional radiology, and over 4.7 L of fluids were removed from the peritoneal cavity, and that will definitely improved the pleural effusions which are mostly related to his ascites. Reevaluated today on 02/28/20, patient remains intubated and mechanically ventilated, his ventilator settings are assist control rate of 16 volume is 500 FiO2 is 35%, PEEP at 8. ABG showed a pO2 of 92 pCO2 of 33 pH of 7.38. Patient remains on propofol at 50 mcg/kg/m, he is on bicarb but I cut it down to 25 ML per hour drip. On norepinephrine at 0.8 mcg/kg/m, and vasopressin at 0.03 units per minutes. Patient is also on TPN. Urine output is ranging between 50-100 m L/h. Patient had a total of 4.7 L drained from his peritoneal cavity/paracentesis, and at least 3 L drip spontaneously from the site of the paracentesis into a collecting bag. Fluid so far is nondiagnostic, does not seem to be infected, it is basically transudate of fluid. Patient did receive yesterday albumin and Lasix, not a significant response was noted with the Lasix. But his urine output improved more so after the paracentesis, and I suspect that the patient may have had abdominal compartment syndrome improved with paracentesis. Patient remains on broad-spectrum antibiotics for pres umptive abdominal sepsis, WBC count is 24.2 hemoglobin is 9.2. Electrolytes are relatively normal. Chest x-ray showed small bilateral pleural effusions, improved compared to the chest x-ray, and I believe that's mostly because the patient had significant amount of fluid drained with the paracentesis done yesterday. Ultrasound of the liver yesterday showed liver length of 16.1, it was heterogeneous, and there was evidence of abdominal ascites in the right upper quadrant with right pleural effusion. Reevaluated today on 03/01/20, patient remains in the ICU, intubated and mechanically ventilated. His ventilator settings are assist control rate of 16 FiO2 is 35% tidal volume is 500 PEEP is 5. Patient remains on norepinephrine at 0.17 mcg/kg/m, he is also on propofol at 50 mcg/kg/m, TPN and 0.9 normal saline at 10 mL per hour. Chest x-ray continues to show by basilar atelectasis with s mall pleural effusions. ABG showed a pO2 of 88 pCO2 of 31 pH of 7.57, hence his rate was cut down to 12. And FiO2 was increased to 40%. WBC count is 13.6 hemoglobin is 8.3. Basic metabolic profile is normal except for low potassium of 3.1. Patient remains sedated, not quite ready for any weaning trials, however will try to assess mental status of possible off propofol. Patient was reevaluated today on 03/02/20, remains in the ICU, intubated and mechanically ventilated. Patient remains on assist control rate of 10 tidal volume is 500 FiO2 is 50% and PEEP of 5. ABG earlier before the rate changed to 10 showed a pO2 of 65 pCO2 of 33 pH of 7.61. Patient remains on norepinephrine at 0.09 mcg/kg/m, he is on propofol at 30 mcg/kg/m he is also on enteral feeding and 0.9 normal saline was added today at 100 mL per hour. Patient seems to be developing a picture of contraction metabolic alkalosis with slight respiratory alkalosis. Hence I have recommended hydrating the patient, discontinued Lasix, and recommended Diamox. He will receive Diamox at 250 mg IV push every 12 hours. Patient seems to have decent urine output, his ascites and bipedal edema seems to be improving. I believe the patient may be actually developing contraction alkalosis. I have discontinued his TPN, and kept him on enteral feeding. WBC count today is 12.2 hemoglobin is 9.1. Electrolytes are normal except for low potassium of 2.9 which is not unusual considering that his pH is 7.60. That is being corrected. And his bicarb is 33 today. Chest x-ray shows bilateral pleural effusions small, previous ultrasound showed not large enough to consider thoracentesis. Both improved significantly post paracentesis. Reevaluated today on 03/18/20, patient remains in the ICU, remains intubated and mechanically ventilated. The main issue on this patient today seems to be related to bleeding around the tracheostomy site. Hence his Lovenox has been placed on hold, patient is requiring even a unit of packed RBCs this morning for low hemoglobin in the range of 6.5. He is now on assist control rate of 10 tidal volume is 500 FiO2 is 60% and PEEP is 5. ABG this morning showed a pO2 of 75 pCO2 of 27 pH of 7.48. Patient is on TPN at 55 ML per hour, his IV fluid will be cut down from 75 mL per hour to 25 mL per hour. Remains on Eraxis and on Zosyn, and I have held his Lovenox because of the bleeding around the tracheostomy site and the patient is requiring a unit of packed RBCs this morning. WBC count today is 12.9 hemoglobin 6.5. PTT is normal PT is normal. Electrolytes showed elevated sodium of 145 potassium is low at 3.0 BUN is 22 creatinine is 0.53. Yesterday after evaluating the patient, I recommended a paracentesis, and this was done by interventional radiology. Patient had 5.7 L of straw-colored fluid removed from his peritoneal cavity. And this was done by ultrasound guidance. Next x-ray today showed progression of the left lung infiltrate, however I believe this is most likely related to aspiration of blood from the tracheostomy site bleeding. Reevaluated today on 03/19/20, patient remains intubated and mechanically ventilated. He is now on assist control rate of 10 tidal volume is 500 FiO2 is 50% and PEEP is 5. ABG showed a pO2 of 80 pCO2 of 34 pH of 7.40. Patient remains on TPN, he is in sinus rhythm, rate is about 100. Patient remains encephalopathic, opens eyes, but does not follow any instructions whatsoever. He has significant chocolate colored drainage around the tracheostomy site, for which I recommended culturing and adjust antibiotics accordingly. It is basically purulent mucus mixed with blood. In the meantime the patient remains on Zosyn, and I believe the patient seems to have almost absolute contraindication to anticoagulation, and considering the patient had DVT, we'll arrange for IVC filter placement by vascular surgery. WBC count today is 10.7 hemoglobin is 7.9. ABG showed a pO2 of 80 pCO2 of 34 pH of 7.40 and this is on 50% FiO2. Platelets are [id number] chest x-ray showed improvement in the left sided infiltrate. But not completely resolved Objective - Vital Signs Vital signs: Vital Signs Temp 97.1 F L 03/19/20 12:00 Pulse 106 H 03/19/20 14:00 Resp 18 03/19/20 14:00 BP 122/89 03/19/20 14:00 Pulse Ox 95 03/19/20 14:00 Intake & Output 03/18/20 03/19/20 03/19/20 18:59 06:59 18:59 Intake Total 1640 926 864 Output Total 1215 970 670 Balance 425 -44 194 Weight 63.8 kg 63.9 kg Intake: IV 1330 896 804 Anidulafungin 100 mg In 100 100 Sodium Chloride 0.9% 100 ml @ 84 mls/hr IVPB DAILY [facility] Rx#:[id number] Desmopressin Acetate 20 50 mcg In Sodium Chloride 0. 9% 50 ml @ 200 mls/hr IVPB ONCE ONE Rx#: [id number] MVI 660 660 440 Magnesium Sulfate-D5w Pmx 100 1 gm In Dextrose/Water 1 100ml.bag @ 100 mls/hr IVPB Q1H [facility] Rx#: [id number] Piperacillin-Tazobactam 3 100 100 .375 gm In Sodium Chloride 0.9% 100 ml @ 25 mls/hr IVPB Q8HR [facility] Rx# :[id number] Potassium Chloride 20 meq 100 In Water For Injection 1 100ml.bag @ 50 mls/hr IVPB Q2H [facility] Rx#: [id number] Pressure bag 30 36 24 Sodium Chloride 0.9% 1, 190 200 140 000 ml @ 20 mls/hr IV . Q24H [facility] Rx#:[id number] Blood Product 310 Rc As-1 Unit 310 [id number] Other 30 60 Output: Gastric Drainage 700 500 400 Urine 515 470 270 Other: Voiding Method Indwelling Catheter Indwelling Catheter Indwelling Catheter # Voids 0 ABP, PAP, CO, CI - Last Documented Arterial Blood Pressure 138/72 - Exam GENERAL EXAM: Intubated sedated 64-year-old white male, mechanically venti lated, via tracheostomy. HEAD: Normocephalic/atraumatic. ENT: PERRLA, EOMI, no icterus, tracheostomy is intact however, significant amount of purulent and bloody drainage noted around the tracheostomy siteP addition be suctioned and culture. NECK: No masses, no JVD, no thyroid enlargement, no adenopathy. Midline tracheostomy in place, patient connected to the ventilator with assist control mode of ventilation CHEST: No chest wall deformity. Symmetrical expansion. LUNGS: Fine crackles at the bases. CVS: Regular rate and rhythm, normal S1 and S2, no gallops, no murmurs, no rubs ABDOME less distended and less tender today. and abdominal incision is clean dry and intact, well approximated and healed, yvonne are in place, intact, the surgical yvonne are still in place EXTREMITIES: No clubbing, 2+ bipedal edema, good pulses bilaterally MUSCULOSKELETAL: Significant motor weakness in all 4 extremities. The patient has diffuse anasarca and edema in all 4 extremities. SKIN: No rashes CENTRAL NERVOUS SYSTEM: Arousable, opens eyes, does not follow any instructions. Generally weak. - Labs CBC & Chem 7: 03/19/20 05:26 03/19/20 05:26 Labs: Abnormal Lab Results - Last 24 Hours (Table) 03/18/20 03/18/20 03/18/20 Range/Units 18:15 18:50 23:52 WBC 15.5 H (3.8-10.6) k/uL RBC 3.10 L (4.30-5.90) m/uL Hgb 9.6 L (13.0-17.5) gm/dL Hct 30.8 L (39.0-53.0) % MCV (80.0-100.0) fL RDW 17.8 H (11.5-15.5) % Plt Count 148 L (150-450) k/uL Neutrophils # (1.3-7.7) k/uL Lymphocytes # (1.0-4.8) k/uL ABG pCO2 (35-45) mmHg ABG pO2 (83-108) mmHg Sodium (137-145) mmol/L Chloride (98-107) mmol/L BUN (9-20) mg/dL Creatinine (0.66-1.25) mg/dL Glucose (74-99) mg/dL POC Glucose (mg/dL) 148 H 136 H (75-99) mg/dL Calcium (8.4-10.2) mg/dL 03/19/20 03/19/20 03/19/20 Range/Units 04:32 05:23 05:26 WBC (3.8-10.6) k/uL RBC (4.30-5.90) m/uL Hgb (13.0-17.5) gm/dL Hct (39.0-53.0) % MCV (80.0-100.0) fL RDW (11.5-15.5) % Plt Count (150-450) k/uL Neutrophils # (1.3-7.7) k/uL Lymphocytes # (1.0-4.8) k/uL ABG pCO2 34 L (35-45) mmHg ABG pO2 80 L (83-108) mmHg Sodium 146 H (137-145) mmol/L Chloride 121 H (98-107) mmol/L BUN 22 H (9-20) mg/dL Creatinine 0.50 L (0.66-1.25) mg/dL Glucose 147 H (74-99) mg/dL POC Glucose (mg/dL) 147 H (75-99) mg/dL Calcium 8.2 L (8.4-10.2) mg/dL 03/19/20 03/19/20 Range/Units 05:26 14:35 WBC 10.7 H (3.8-10.6) k/uL RBC 2.53 L (4.30-5.90) m/uL Hgb 7.9 L D (13.0-17.5) gm/dL Hct 25.4 L (39.0-53.0) % MCV 100.5 H (80.0-100.0) fL RDW 17.8 H (11.5-15.5) % Plt Count 105 L (150-450) k/uL Neutrophils # 9.1 H (1.3-7.7) k/uL Lymphocytes # 0.6 L (1.0-4.8) k/uL ABG pCO2 (35-45) mmHg ABG pO2 (83-108) mmHg Sodium (137-145) mmol/L Chloride (98-107) mmol/L BUN (9-20) mg/dL Creatinine (0.66-1.25) mg/dL Glucose (74-99) mg/dL POC Glucose (mg/dL) 146 H (75-99) mg/dL Calcium (8.4-10.2) mg/dL Microbiology - Last 24 Hours (Table) 03/19/20 10:28 Wound Culture - Preliminary Neck Assessment and Plan Assessment: 1. Acute hypoxic respiratory failure secondary to ongoing aspiration. The patient has developed recurrent aspiration. #2. Acute cardiac pulmonary arrest on 02/26/2020 related to septic shock, patient required a brief CPR, was intubated and fluid resuscitated, and she is currently off pressors and he is hemodynamicaly stable #3. Increased bibasilar opacities and a chest x-ray shows bilateral pleural effusions.this is consistent with aspiration pneumonia, and the patient has a gram-negative bacillus in his sputum. Repeat cultures are pending. In the meantime the patient remains on Zosyn. #4. recurrent bowel obstruction. The patient has a high-grade bowel obstruction. Seems to have resolved. #5. Massive ascites, status post high-volume paracentesis, on 02/27/2020 with removal of 8 L of ascitic fluid, and repeat paracentesis on 2019 would removal of 6 L of fluid and then 4.5 liters on 03/09/2020, slight abdominal dis tention today's evaluation. There is some recurrence distention the abdomen and possibly some recurrent ascites. Last paracentesis was done on 02/15, and 5.7 L removed. #6. Non-anion gap metabolic acidosis related to septic shock, resolved. #7. hypotension secondary to above. Resolved. #8. Elevated d-dimer, nonspecific, doubt possibility of pulmonary embolism. However the patient does have positive DVT. Patient has basically absolute contraindication to anticoagulations, and I will recommend IVC filter placement. #9. Diverticulitis, status post lower anterior resection, takedown of splenic flexure and partial omentectomy #10. Alcohol abuse with alcohol withdrawal #11. Recent history dark black stools the possibility of upper GI bleeding, negative EGD #12. Altered mental status, related to metabolic encephalopathy, #13. History of diverticular disease #14 intermittent episodes of bleeding around the tracheostomy site, would hold Lovenox for the next 24 hours, and possibly restart once the bleeding is completely under control. Otherwise may have to seriously consider a Marianne filter placement. Recommendation: Continue present supportive care measures. Continue TPN. Continue IV Zosyn and eraxis. Continue mechanical ventilation, and intermittently try weaning with a pressure support and CPAP. Patient did tolerate pressure support and CPAP yesterday. Decrease hydrocortisone. We'll consult vascular surgery for IVC filter placement. Condition remains critically ill, prognosis is extremely guarded. Critical care time is over 30 minutes Overall prognosis is extremely poor and guarded, we will discuss with the occasionally comfort care measures if the patient does not show significant improvement in the next few days Time with Patient: Greater than 30
--- NOTE | 2020-03-19 15:46 | PN ---
PROGRESS NOTE DATE OF SERVICE: 03/19/2020 REASON FOR FOLLOWUP: Pneumonia, oropharyngeal candidiasis. INTERVAL HISTORY: The patient is currently afebrile. The patient is hemodynamically stable. FiO2 is currently 60% with the patient CT, no diarrhea. On admission PHYSICAL EXAMINATION: Blood pressure 122/89, pulse 97.1, he is 95% on 3 L. General description is an elderly male, lying in bed in no distress. RESPIRATORY SYSTEM: Unlabored breathing, decreased with no wheeze. HEART: S1, S2. Regular rate and rhythm. ABDOMEN: Soft, no tenderness. LABS: White count of 7.1, hemoglobin of 10.9, BUN of 22, creatinine 0.50. DIAGNOSTIC IMPRESSION AND PLAN: Patient with elevated white count which is multifactorial in this patient with a component of aspiration pneumonia, sputum with Klebsiella. no cellulitis. White count normal. PLAN: Continue current antibiotics: Monitor clinical course closely. MMODL / IJN: [id number] /
[2020-03-19] MEDS: FAT EMULSION 20% 250 ML in EMPTY BAG 1 BAG IV SCH (17:31)
[2020-03-19 17:42] LABS: Glucose,Whole Blood 153 mg/dL (75-99)
--- NOTE | 2020-03-19 20:01 | P.PN ---
Progress Note - Text Progress Note Date: 03/19/20 - Chief Complaint Abdominal surgery History of presenting complaint: This is a pleasant 64-year-old patient of . Patient been having complication to his diverticulitis. computed tomography scan on January 08. Showed some possible stricture. Hepatic steatosis. February 06- undergone low anterior resection. Epidural for pain control.patient had elevated d-dimer. Pulmonary embolism felt to be unlikely. CT was suboptimal. VQ scan was intermediate probability. Leg DVT treated with IV heparin. Had some dark stools.also patient had had altered mental status. Thorp to be encephalopathy.computed tomography scan of the brain was unremarkable. EGD-no evidence of bleeding. Patient more awake after dose of baclofen cutback. changed over to xarelto.x-ray showing ileus. Patient did start having bowel movements. Repeat computed tomography scan of abdomen showed possible enteritis./Colitis.as abdomen appeared distended. Lemus catheter was placed. No urine retention.-patient become hypotensive. Had a brief cardiac and pulmonary arrest Moved to ICU. Had to be intubated. Drips include norepinephrine, vasopressin, propofol. NG tube to suction.also treated for aspiration pneumonia and abdominal wall cellulitis.ascitic fluid that was tapped was unremarkable.4.5 L of acetic fluid removed. On March 06 underwent tracheostomy.Dophoff tube was placed and then had to be removed because of abdominal distention. Patient felt to have recurrent aspiration. Today. [id number] 15 afebrile 5. Telemetry-sinus rhythm. Awake lethargic. DP and lipids. Patient had a blood clot around the tracheostomy. Review of systems: Patient unable to provide a history Active Medications Albuterol/Ipratropium (Ipratropium-Albuterol 3 Ml Neb) 3 ml INHALATION RT-Q4H [facility] Last Admin: 03/19/20 19:24 Dose: 3 ml Documented by: Albuterol/Ipratropium (Ipratropium-Albuterol 3 Ml Neb) 3 ml INHALATION RT-Q2H PRN PRN Reason: Shortness Of Breath Or Wheezing Atorvastatin Calcium (Atorvastatin 20 Mg Tab) 20 mg OG-TUBE HS [facility] Last Admin: 03/18/20 21:03 Dose: 20 mg Documented by: Ferrous Sulfate (Ferrous Sulfate Oral Elixir 300 Mg/5 Ml Cup) 300 mg PO BID- W/MEALS [facility] Last Admin: 03/19/20 17:32 Dose: 300 mg Documented by: Folic Acid (Folic Acid 1 Mg Tab) 1 mg OG-TUBE DAILY [facility] Last Admin: 03/19/20 10:51 Dose: 1 mg Documented by: Hydrocortisone Sodium Succinate (Hydrocortisone Succinate 100 Mg/2 Ml Vial) 50 mg IV Q12HR [facility] Last Admin: 03/19/20 10:51 Dose: 50 mg Documented by: Piperacillin Sod/Tazobactam (Sod 3.375 gm/ Sodium Chloride) 100 mls @ 25 mls/hr IVPB Q8HR [facility] Last Admin: 03/19/20 17:31 Dose: 25 mls/hr Documented by: Anidulafungin 100 mg/ Sodium (Chloride) 100 mls @ 84 mls/hr IVPB DAILY [facility] Last Admin: 03/19/20 10:50 Dose: 84 mls/hr Documented by: Sodium Chloride (Saline 0.9%) 1,000 mls @ 20 mls/hr IV .Q24H [facility] Last Admin: 03/18/20 20:55 Dose: 20 mls/hr Documented by: Norepinephrine Bitartrate 8 mg (/ Sodium Chloride) 258 mls @ 5.824 mls/hr IV .Q24H [facility]; Protocol Last Admin: 03/19/20 14:40 Dose: Not Given Documented by: Propofol 1,000 mg/ IV Solution 100 mls @ 0 mls/hr IV .Q0M [facility]; Protocol Last Titration: 03/16/20 07:16 Dose: 0 mcg/kg/min, 0 mls/hr Documented by: Fat Emulsion Intravenous 250 (ml/ IV Solution) 250 mls @ 21 mls/hr IV MoWeFr [facility] Last Admin: 03/19/20 17:31 Dose: 21 mls/hr Documented by: Parenteral Vitamin Supplement 10 ml/ Chromium/Copper/Manganese/Seleni/Zn 1 ml/Sodium Acetate 10 meq/Potassium Acetate 40 meq/Calcium Gluconate 1 gm/Magnesium Sulfate 0.75 gm/Potassium Phosphate 10 mmol/Amino Acids/Dextrose 1,050.8333 mls @ 55 mls/hr IV .Q19H7M [facility] Last Admin: 03/19/20 10:00 Dose: 55 mls/hr Documented by: Insulin Aspart (Insulin Aspart (Novolog) 100 Unit/Ml Vial) 0 unit SQ Q6H [facility]; Protocol Last Admin: 03/19/20 17:42 Dose: 2 unit Documented by: Metoclopramide HCl (Metoclopramide 5 Mg/Ml 2 Ml Vial) 10 mg IVP Q6HR PRN PRN Reason: Nausea and Vomiting Miscellaneous Information (Magnesium Replacement Protocol 1 Each Misc) 1 each MISCELLANE DAILY PRN; Protocol PRN Reason: Per Protocol Miscellaneous Information (Potassium Replacement Protocol 1 Each Misc) 1 each MISCELLANE DAILY PRN; Protocol PRN Reason: Per Protocol Ondansetron HCl (Ondansetron 4 Mg/2 Ml Vial) 4 mg IVP Q8HR PRN PRN Reason: Nausea And Vomiting Pantoprazole Sodium (Pantoprazole 40 Mg/10 Ml Vial) 40 mg IVP BID [facility] Last Admin: 03/19/20 10:56 Dose: 40 mg Documented by: Sodium Chloride (Sodium Chloride 0.9% Flush 10 Ml Syringe) 10 ml IV Q4HR PRN PRN Reason: PICC Line Sodium Chloride (Sodium Chloride 0.9% Flush 10 Ml Syringe) 10 ml IV WEEKLY [facility] Last Admin: 03/14/20 09:12 Dose: 10 ml Documented by: Sodium Chloride (Sodium Chloride 0.9% Flush 10 Ml Syringe) 20 ml IV Q4HR PRN PRN Reason: PICC Line Tamsulosin HCl (Tamsulosin 0.4 Mg Cap.Er.24h) 0.4 mg PO HS [facility] Last Admin: 03/18/20 21:03 Dose: 0.4 mg Documented by: Thiamine HCl (Thiamine 100 Mg/Ml 2 Ml Vial) 100 mg IVP DAILY [facility] Last Admin: 03/19/20 10:56 Dose: 100 mg Documented by: Physical examination: VITAL SIGNS: 97.1, 111, 19, 118/77, 96% on ventilator GENERAL: Laying in bed, tired. Tracheostomy tube, blood clot around the same EYES: Pupils equal. Conjunctiva normal. HEENT:, Dry oral cavity, OG tube NECK: JVD unable to assess; masses not palpable. Tracheostomy tube HEART: First and second heart sounds are normal; edema LUNGS: Respiratory rate increased; decreased breath sounds. ABDOMEN: Soft, distended , nontender, , liver spleen not palpable. Lemus catheter PSYCH: Unable to assess NEUROLOGICAL: Eyes open INVESTIGATIONS, reviewed in the clinical context: March 19: White count 10.7 hemoglobin 7.9 platelets 105 potassium 4 creatinine 0.50 March 18: White count 7.9 hemoglobin 8.2 platelets 157 bun 22 creatinine 0153 March 17: White count 7.6 hemoglobin 8.2 increased neutrophil March 16: White count 8.2 hemoglobin 8.2 potassium 3.8 creatinine 0.69. Chest x-ray-some improvement reported March 15: White count 7.6 hemoglobin 8.6. Distal 68 potassium 3.8 creatinine 1.03 March 13: White count 18.2 hemoglobin 9.6 platelets 253 potassium 4.2 creatinine 1.15. Chest x-ray bilateral infiltrates and fluid March 12: White count 8.8 hemoglobin 9.3 ABG-pH 7.48 pO2 76 potassium 4.4 creatinine 0.82 March 11: White count 20.9 hemoglobin 9.9 platelets 393 potassium 4.2 crit 0.77 albumin 1.9 March 10: White count 22.6 hemoglobin 9.7 platelets 366potassium 4.1 creatinine 0.67 March 09: White count 18.2, hemoglobin 9.5, platelets 369 sodium 147 potassium 4.2 creatinine 0.77 March 08: White count 98.1 hemoglobin 19.3 platelets 329 sodium 148 potassium 3.2 right 126 creatinine 0.7 to albumin 1.9 March 07: White count 24 hemoglobin 9.8 platelets 366 potassium 3.7 creatinine 0.73 White count 16.4 hemoglobin 8.8 platelets 276 potassium 3.5 creatinine 0.71 Previous testing EEG shows evidence of encephalopathy Computed tomography scan of the brain-mild atrophy 2-D echocardiogram-EF 55-60% VQ scan-intermediate probability Chest CTA-suboptimal study. Doppler ultrasound-positive for thrombus within the distal popliteal vein White count 10.2 hemoglobin 14.2 potassium 3.6 B12 some 08 Previously AST 129 ALT 50 Computed tomography scan of the abdomen from January 08-possible colitis, diverticulitis, some esophagitis, hepatic steatosis Abdominal x-ray film personally reviewed by me shows ileus Sputum growing Pita Assessment: -Acute bleeding from the tracheostomy and also aspirated from the G-tube. 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 Repeat paracentesis. 4.5 L.-repeat paracentesis is 4.4 L.. Repeat paracentesis 4 L removed -Mild hyponatremia -Hypernatremia -Macrocytic anemia. -Acute DVT in the left distal popliteal vein -Acute alcohol withdrawal syndrome with improvement -Right lower lobe pneumonia -Mild protein calorie malnutrition from decreased oral intake -Tracheostomy tube placed on March 06 -Metabolic encephalopathy-no improvement -Dobbhoff tube placed and removed -TPN and lipids Plan: ICU-plan is for patient to get a Marianne filter. On TPN and lipids. IV antifungal. IV hydrocortisone. IV Zosyn. Prognosis guarded. Thank you Dr. Lee
[2020-03-19] MEDS: TAMSULOSIN 0.4 MG CAP.ER.24H PO SCH (20:36)
[2020-03-19] MEDS: ATORVASTATIN 20 MG TAB OG-TUBE SCH (20:36)
[2020-03-19 23:34] LABS: Glucose,Whole Blood 151 mg/dL (75-99)
[2020-03-19] MEDS: SODIUM CHLORIDE 0.9% 1,000 ML IV SCH (23:38)
[2020-03-20] MEDS: IPRATROPIUM-ALBUTEROL 3 ML NEB INHALATION SCH ×5 (03:01→20:53)
[2020-03-20] MEDS: MVI, ADULT NO.4 WITH VIT K 10 ML, TRACE (CONC-1ML/DOSE) 1 ML, SODIUM ACETATE 10 MEQ, PO... IV SCH ×16 (04:48→07:07)
[2020-03-20 04:54] LABS: ABG Base Excess -3.3 mmol/L; ABG HCO3 22 mmol/L (21-25); ABG Oxygen Saturation 94.1 % (94-97); ABG PCO2 35 mmHg (35-45); ABG PO2 69 mmHg (83-108); ABG TCO2 23 mmol/L (19-24); Allen Test Performed? Yes
[2020-03-20 04:55] LABS: Ionized Calcium 5.7 mg/dL (4.5-5.3)
[2020-03-20 05:07] LABS: Anisocytosis Slight; Hypochromasia Marked; MCH 31.5 pg (25.0-35.0); MCHC 31.2 g/dL (31.0-37.0); MCV 100.9 fL (80.0-100.0); Macrocytosis Moderate; Mean Platelet Volume 10.7; Platelet Count 142 k/uL (150-450); Poikilocytosis Slight; RBC 3.17 m/uL (4.30-5.90); RDW 17.8 % (11.5-15.5)
[2020-03-20 05:08] LABS: ALT 45 U/L (4-49); AST 48 U/L (17-59); African American GFR (CKD) >90 (>60 ml/min/1.73 sqM); Albumin 1.8 g/dL (3.5-5.0); Alkaline Phosphatase 265 U/L (38-126); Anion Gap 4 mmol/L; Blood Urea Nitrogen 20 mg/dL (9-20); Calcium 8.3 mg/dL (8.4-10.2); Carbon Dioxide 20 mmol/L (22-30); Chloride 120 mmol/L (98-107); Glucose 165 mg/dL (74-99); Non-African American GFR(CKD) >90 (>60 ml/min/1.73 sqM); Phosphorus 3.3 mg/dL (2.5-4.5); Sodium 144 mmol/L (137-145); Total Bilirubin 0.4 mg/dL (0.2-1.3); Total Protein 4.8 g/dL (6.3-8.2)
[2020-03-20 05:20] LABS: Triglycerides 126 mg/dL (<150)
[2020-03-20 05:28] LABS: Band Neutrophils % 3 %; Eosinophils # (M) 0.17 k/uL (0-0.7); Large Platelets Present; Lymphocytes # (M) 0.17 k/uL (1.0-4.8); Monocytes # (M) 0.34 k/uL (0-1.0); Neutrophils % (M) 93 %; Nucleated Red Blood Cells 0 /100 WBC (0-0); Total Cells Counted 100
[2020-03-20 06:15] LABS: Glucose,Whole Blood 153 mg/dL (75-99)
[2020-03-20] MEDS: FERROUS SULFATE ORAL ELIXIR 300 MG/5 ML CUP PO SCH ×2 (06:20→17:38)
[2020-03-20] MEDS: INSULIN ASPART (NovoLOG) 100 UNIT/ML VIAL SQ SCH ×4 (06:20→23:41)
[2020-03-20] MEDS: PIPERACILLIN-TAZOBACTAM 3.375 GM in SODIUM CHLORIDE 0.9% 100 ML IVPB SCH ×2 (08:51→16:06)
--- NOTE | 2020-03-20 09:22 | XR ---
EXAMINATION TYPE: XR chest 1V DATE OF EXAM: 03/20/2020 COMPARISON: 03/19/2020 HISTORY: Shortness of breath TECHNIQUE: Single frontal view of the chest is obtained. FINDINGS: There is bilateral consolidation which is stable from prior exam. Stable small left pleura l effusion. PICC line noted. NG tube stable. Tracheostomy tube stable. Chronic rib deformities noted. No pneumothorax. Postsurgical change left humerus. IMPRESSION: Stable pleural-parenchymal changes correlate for pneumonia versus pulmonary edema.
[2020-03-20] MEDS: HYDROCORTISONE SUCCINATE 100 MG/2 ML VIAL IV SCH ×2 (10:02→21:50)
[2020-03-20] MEDS: PANTOPRAZOLE 40 MG/10 ML VIAL IVP SCH ×2 (10:02→22:20)
[2020-03-20] MEDS: THIAMINE 100 MG/ML 2 ML VIAL IVP SCH (10:03)
[2020-03-20] MEDS: FOLIC ACID 1 MG TAB OG-TUBE SCH (10:03)
[2020-03-20] MEDS: ANIDULAFUNGIN 100 MG in SODIUM CHLORIDE 0.9% 100 ML IVPB SCH (10:04)
[2020-03-20] MEDS ORDERED: LIDOCAINE 1% INJ 10MG/ML (20 ML MDV) SQ ONE (10:44)
[2020-03-20] MEDS ORDERED: IOPAMIDOL-250 100ML BTL IV ONE ×2 (10:47)
--- NOTE | 2020-03-20 11:08 | P.OP ---
Date of Procedure: 03/20/20 Preoperative Diagnosis: Deep venous thrombosis with contraindication to anticoagulation. Postoperative Diagnosis: Same. Procedure(s) Performed: #1: Ultrasound-guided cannulation right common femoral vein. #2: Inferior venacavogram. #3: Placement of an IVC filter via the right femoral vein approach. Anesthesia: local Surgeon: Hamilton Villarreal Estimated Blood Loss (ml): 2 Pathology: none sent Condition: stable Disposition: no change Indications for Procedure: Patient is a 64-year-old male with multiple comorbid medical conditions who is been hospitalized for multiple weeks. During his hospitalization he was found be suffering from deep venous thrombosis. This was initially treated with anticoagulation however the patient has had multiple episodes of bleeding per rectum and from the tracheostomy site and because of these it is felt the patient would benefit by discontinuation of anticoagulation. His thus thought the patient would benefit by the placement of an IVC filter absent of treatment of the DVT with otherwise appropriate anticoagulation. Description of Procedure: Patient was brought to the vascular laboratory. The right and left groins were sterilely prepped and draped in the usual manner. Ultrasound was utilized to identify the right common femoral vein. The vein was easily compressible and free of visible thrombus. 1% Xylocaine was utilized for local anesthesia tissues overlying the femoral vein. Through this anesthetized area and with the aid of ultrasound a multipurpose needle was utilized to cannulate the vein. Once cannulated Softip guidewire was advanced into the iliac vein. The needle was withdrawn and a 5-Indonesian sheath was placed. Right iliac venogram and inferior venacavogram was performed. This demonstrated no evidence of right iliac or IVC thrombus. The confluence of both renal veins with the vena cava was noted. The cava was noted to measure less than 28 mm in diameter. As such a guidewire was advanced through the sheath and the sheath was withdrawn. A Cook tulip filter sheath and dilator were advanced over the guidewire. The guidewire and dilator were withdrawn. The filter was advanced through the sheath and deployed at the L2-L3 interspace. Completion venogram demonstrated the filter to be in good position without evidence of complication. The delivery sheath was then removed and pressure was held at the puncture site until all evidence of bleeding ceased. Patient tolerated the procedure well and was returned to his room in stable condition.
--- NOTE | 2020-03-20 11:27 | IR ---
EXAMINATION TYPE: IR IVC filter placement DATE OF EXAM: 03/20/2020 COMPARISON: NONE HISTORY: Fluoroscopy time. Fluoroscopy was provided to the referring clinician. 0.8 minutes provided.
--- NOTE | 2020-03-20 11:42 | P.PN ---
Subjective Principal diagnosis: Left Lower Extremity DVT need for IVC filter This is a 64-year-old male who came in early February for a scheduled lower anterior resection, takedown of splenic flexure and partial omentectomy for diverticulitis with Dr. Lee. We had seen this patient previously this admission for possible Ha shunt placement due to recurrent ascites and need for paracentesis. Postop day 1 and was found that the patient had a pint of peppermint schnapps next to the bedside, and noted the patient had a significant alcohol history. He also developed clinical deterioration with abdominal sepsis. On 02/26/2020 the patient had an acute cardiopulmonary arrest which CPR was initiated and the patient was intubated and placed on mechanical ventilation and transferred to the ICU. Due to prolonged mechanical ventilation the patient ultimately had a tracheostomy tube inserted on 03/06/2020. He was diagnosed with a left lower extremity deep vein thrombosis in early February. He had been trialed on anticoagulation, however had been having bleeding from the tracheostomy site as well as dark stools. He has been deemed not a candidate for further anticoagulation and vascular surgery was asked to see patient again regarding placement for an IVC filter. Objective - Vital Signs Vital signs: Vital Signs Temp 97.6 F 03/19/20 20:00 Pulse 113 H 03/20/20 07:00 Resp 22 03/20/20 07:00 BP 122/85 03/20/20 07:00 Pulse Ox 90 L 03/20/20 07:00 Intake & Output 03/19/20 03/20/20 03/20/20 18:59 06:59 18:59 Intake Total 1098 1977 75 Output Total 800 975 30 Balance 298 1002 45 Weight 63.9 kg 64.6 kg Intake: IV 1038 943 75 Anidulafungin 100 mg In 100 Sodium Chloride 0.9% 100 ml @ 84 mls/hr IVPB DAILY [facility] Rx#:[id number] MVI 605 660 55 Piperacillin-Tazobactam 3 100 100 .375 gm In Sodium Chloride 0.9% 100 ml @ 25 mls/hr IVPB Q8HR [facility] Rx# :[id number] Pressure bag 33 3 Sodium Chloride 0.9% 1, 200 180 20 000 ml @ 20 mls/hr IV . Q24H [facility] Rx#:[id number] Intake, IV Titration 1034 Amount Mvi, Adult No.4 with Vit 1034 K 10 ml Trace (Conc-1Ml/ Dose) 1 ml Sodium Acetate 10 meq Potassium Acetate 40 meq Calcium Gluconate 1 gm Magnesium Sulfate gm 0.75 gm Potassium Phosphate 10 mmol In Amino Acids 5 %/Dextrose 20 % 1,000 ml @ 55 mls/hr IV .Q19H7M [facility] Rx#: [id number] Other 60 Output: Gastric Drainage 400 500 Urine 400 475 30 Other: Voiding Method Indwelling Catheter Indwelling Catheter # Voids 0 # Bowel Movements 1 ABP, PAP, CO, CI - Last Documented Arterial Blood Pressure 126/63 - Exam VITAL SIGNS: Reviewed. GENERAL: Well-developed, does not appear to be in any acute distress. Tracheotostomy present. HEENT: No sclera icterus. Extraocular movements grossly intact. Moist buccal mucosa. Head is atraumatic, normocephalic. Trach site clean dry and intact ABDOMEN: Nondisteded, surgical Incision clean dry and intact. Extremities: Bilateral lower extremities with Son wrap, bilateral upper extremities with swelling. NEUROLOGIC: Patient is awake and able to open eyes. Unable to follow commands. - Labs CBC & Chem 7: 03/20/20 04:16 03/20/20 04:16 Labs: Abnormal Lab Results - Last 24 Hours (Table) 03/19/20 03/19/20 03/19/20 Range/Units 14:35 17:30 23:31 WBC (3.8-10.6) k/uL RBC (4.30-5.90) m/uL Hgb (13.0-17.5) gm/dL Hct (39.0-53.0) % MCV (80.0-100.0) fL RDW (11.5-15.5) % Plt Count (150-450) k/uL Neutrophils # (Manual) (1.3-7.7) k/uL Lymphocytes # (Manual) (1.0-4.8) k/uL ABG pO2 (83-108) mmHg Chloride (98-107) mmol/L Carbon Dioxide (22-30) mmol/L Creatinine (0.66-1.25) mg/dL Glucose (74-99) mg/dL POC Glucose (mg/dL) 146 H 153 H 151 H (75-99) mg/dL Calcium (8.4-10.2) mg/dL Ionized Calcium Gabi (4.5-5.3) mg/dL Alkaline Phosphatase (38-126) U/L Total Protein (6.3-8.2) g/dL Albumin (3.5-5.0) g/dL 03/20/20 03/20/20 03/20/20 Range/Units 04:10 04:16 04:16 WBC 17.0 H (3.8-10.6) k/uL RBC 3.17 L (4.30-5.90) m/uL Hgb 10.0 L D (13.0-17.5) gm/dL Hct 32.0 L (39.0-53.0) % MCV 100.9 H (80.0-100.0) fL RDW 17.8 H (11.5-15.5) % Plt Count 142 L (150-450) k/uL Neutrophils # (Manual) 16.30 H (1.3-7.7) k/uL Lymphocytes # (Manual) 0.17 L (1.0-4.8) k/uL ABG pO2 69 L (83-108) mmHg Chloride 120 H (98-107) mmol/L Carbon Dioxide 20 L (22-30) mmol/L Creatinine 0.42 L (0.66-1.25) mg/dL Glucose 165 H (74-99) mg/dL POC Glucose (mg/dL) (75-99) mg/dL Calcium 8.3 L (8.4-10.2) mg/dL Ionized Calcium Gabi 5.7 H (4.5-5.3) mg/dL Alkaline Phosphatase 265 H (38-126) U/L Total Protein 4.8 L (6.3-8.2) g/dL Albumin 1.8 L (3.5-5.0) g/dL 03/20/20 Range/Units 06:13 WBC (3.8-10.6) k/uL RBC (4.30-5.90) m/uL Hgb (13.0-17.5) gm/dL Hct (39.0-53.0) % MCV (80.0-100.0) fL RDW (11.5-15.5) % Plt Count (150-450) k/uL Neutrophils # (Manual) (1.3-7.7) k/uL Lymphocytes # (Manual) (1.0-4.8) k/uL ABG pO2 (83-108) mmHg Chloride (98-107) mmol/L Carbon Dioxide (22-30) mmol/L Creatinine (0.66-1.25) mg/dL Glucose (74-99) mg/dL POC Glucose (mg/dL) 153 H (75-99) mg/dL Calcium (8.4-10.2) mg/dL Ionized Calcium Gabi (4.5-5.3) mg/dL Alkaline Phosphatase (38-126) U/L Total Protein (6.3-8.2) g/dL Albumin (3.5-5.0) g/dL Microbiology - Last 24 Hours (Table) 03/19/20 19:40 Sputum Culture - Preliminary Sputum 03/19/20 10:28 Gram Stain - Preliminary Neck Wound Culture - Preliminary Assessment and Plan Assessment: 1. Left lower extremity DVT, not tolerating anticoagulation 2. Cardiopulmonary arrest and acute hypoxic respiratory failure secondary to septic shock. 3. Diverticulitis status post lower anterior resection, takedown of splenic flexure and partial omentectomy on 02/07/2020 4. Alcohol abuse with alcohol withdrawal 5. Liver cirrhosis with abdominal ascites status post multiple paracentesis during this admission 6. ileus 7. Black stools. Resolved. No evidence of upper GI bleed on EGD. EGD was normal 8. Altered mental status likely due to cardiac arrest and superimposed toxic metabolic encephalopathy. Followed by neurology 9. Possible aspiration pneumonia 10. Severe protein calorie malnutrition 11. Patient status post tracheostomy for acute hypoxic respiratory failure Plan: Patient will be scheduled for a IVC filter placement today at 10:[address] Villarreal. Continue medical management and ICU management. The above dictated assessment and findings were discussed with Dr. Bailey. The impression and plan of care have been directed as dictated.
--- NOTE | 2020-03-20 13:16 | P.PN ---
Subjective Progress Note Date: 03/20/20 CHIEF COMPLAINT: Diverticulitis HISTORY OF PRESENT ILLNESS: Patient is status post lower anterior resection, takedown of splenic flexure and partial omentectomy on 02/07/2020. The morning of 02/26/20 patient was transferred to the ICU after STEVE KUMAR was called. Patient had become hypothermic and hypotensive. Patient become unresponsive they lost pulse and CPR was initiated. Patient did require to be intubated. Patient is in the ICU. He is on mechanical ventilation. Patient has had no further bleeding from the tracheostomy site. He is status post IVC filter placement today. He is scheduled for abdominal paracentesis. He did have a bowel movement. Afebrile. WBC is up to 17 hemoglobin 10 culture from neck growing gram-negative bacilli PHYSICAL EXAM: VITAL SIGNS: Reviewed. GENERAL: Well-developed in no acute distress. HEENT: No sclera icterus. Extraocular movements grossly intact. Moist buccal mucosa. Head is atraumatic, normocephalic. ABDOMEN: distended Incision clean dry and intact. NEUROLOGIC: Patient is awake and able to open eyes. ASSESSMENT: 1. Cardiopulmonary arrest and acute hypoxic respiratory failure secondary to septic shock. 2. Diverticulitis status post lower anterior resection, takedown of splenic flexure and partial omentectomy on 02/07/2020 3. Patient's abdominal distention likely related to ileus, ascites from his liver cirrhosis and possible hernia. 4. Alcohol abuse with alcohol withdrawal 5. New left leg DVT during this admission. Unable to tolerate anticoagulation. He is now status post IVC filter placement 6. ileus 7. Black stools. Resolved. No evidence of upper GI bleed on EGD. EGD was normal 8. Altered mental status likely due to cardiac arrest and superimposed toxic metabolic encephalopathy. Followed by neurology 9. Possible aspiration pneumonia 10. Severe protein calorie malnutrition 11. Liver cirrhosis with abdominal ascites status post multiple paracentesis during this admission 12. Patient status post tracheostomy for acute hypoxic respiratory failure PLAN: -Continue supportive care -Continue antibiotics -Continue TPN for nutrition support -Continue NG tube for decompression -Overall condition guarded Physician [employer] Practitioner note has been reviewed by physician. Signing provider agrees with the documented findings, assessment, and plan of care. Objective - Vital Signs Vital signs: Vital Signs Temp 97.2 F L 03/20/20 12:00 Pulse 115 H 12/17/20 12:33 Resp 13 03/20/20 12:00 BP 114/74 03/20/20 12:00 Pulse Ox 91 L 03/20/20 12:00 Intake & Output 03/19/20 03/20/20 03/20/20 18:59 06:59 18:59 Intake Total 1098 1977 575 Output Total 800 975 165 Balance 298 1002 410 Weight 63.9 kg 64.6 kg Intake: IV 1038 943 575 Anidulafungin 100 mg In 100 100 Sodium Chloride 0.9% 100 ml @ 84 mls/hr IVPB DAILY JOANA Rx#:[id number] MVI 605 660 275 Piperacillin-Tazobactam 3 100 100 100 .375 gm In Sodium Chloride 0.9% 100 ml @ 25 mls/hr IVPB Q8HR JOANA Rx# :[id number] Pressure bag 33 3 Sodium Chloride 0.9% 1, 200 180 100 000 ml @ 20 mls/hr IV . Q24H JOANA Rx#:[id number] Intake, IV Titration 1034 Amount Mvi, Adult No.4 with Vit 1034 K 10 ml Trace (Conc-1Ml/ Dose) 1 ml Sodium Acetate 10 meq Potassium Acetate 40 meq Calcium Gluconate 1 gm Magnesium Sulfate gm 0.75 gm Potassium Phosphate 10 mmol In Amino Acids 5 %/Dextrose 20 % 1,000 ml @ 55 mls/hr IV .Q19H7M JOANA Rx#: [id number] Other 60 Output: Gastric Drainage 400 500 Urine 400 475 165 Other: Voiding Method Indwelling Catheter Indwelling Catheter Indwelling Catheter # Voids 0 # Bowel Movements 1 ABP, PAP, CO, CI - Last Documented Arterial Blood Pressure 126/63 - Labs CBC & Chem 7: 03/20/20 04:16 03/20/20 04:16 Labs: Abnormal Lab Results - Last 24 Hours (Table) 03/19/20 03/19/20 03/19/20 Range/Units 14:35 17:30 23:31 WBC (3.8-10.6) k/uL RBC (4.30-5.90) m/uL Hgb (13.0-17.5) gm/dL Hct (39.0-53.0) % MCV (80.0-100.0) fL RDW (11.5-15.5) % Plt Count (150-450) k/uL Neutrophils # (Manual) (1.3-7.7) k/uL Lymphocytes # (Manual) (1.0-4.8) k/uL ABG pO2 (83-108) mmHg Chloride (98-107) mmol/L Carbon Dioxide (22-30) mmol/L Creatinine (0.66-1.25) mg/dL Glucose (74-99) mg/dL POC Glucose (mg/dL) 146 H 153 H 151 H (75-99) mg/dL Calcium (8.4-10.2) mg/dL Ionized Calcium Gabi (4.5-5.3) mg/dL Alkaline Phosphatase (38-126) U/L Total Protein (6.3-8.2) g/dL Albumin (3.5-5.0) g/dL 03/20/20 03/20/20 03/20/20 Range/Units 04:10 04:16 04:16 WBC 17.0 H (3.8-10.6) k/uL RBC 3.17 L (4.30-5.90) m/uL Hgb 10.0 L D (13.0-17.5) gm/dL Hct 32.0 L (39.0-53.0) % MCV 100.9 H (80.0-100.0) fL RDW 17.8 H (11.5-15.5) % Plt Count 142 L (150-450) k/uL Neutrophils # (Manual) 16.30 H (1.3-7.7) k/uL Lymphocytes # (Manual) 0.17 L (1.0-4.8) k/uL ABG pO2 69 L (83-108) mmHg Chloride 120 H (98-107) mmol/L Carbon Dioxide 20 L (22-30) mmol/L Creatinine 0.42 L (0.66-1.25) mg/dL Glucose 165 H (74-99) mg/dL POC Glucose (mg/dL) (75-99) mg/dL Calcium 8.3 L (8.4-10.2) mg/dL Ionized Calcium Gabi 5.7 H (4.5-5.3) mg/dL Alkaline Phosphatase 265 H (38-126) U/L Total Protein 4.8 L (6.3-8.2) g/dL Albumin 1.8 L (3.5-5.0) g/dL 03/20/20 Range/Units 06:13 WBC (3.8-10.6) k/uL RBC (4.30-5.90) m/uL Hgb (13.0-17.5) gm/dL Hct (39.0-53.0) % MCV (80.0-100.0) fL RDW (11.5-15.5) % Plt Count (150-450) k/uL Neutrophils # (Manual) (1.3-7.7) k/uL Lymphocytes # (Manual) (1.0-4.8) k/uL ABG pO2 (83-108) mmHg Chloride (98-107) mmol/L Carbon Dioxide (22-30) mmol/L Creatinine (0.66-1.25) mg/dL Glucose (74-99) mg/dL POC Glucose (mg/dL) 153 H (75-99) mg/dL Calcium (8.4-10.2) mg/dL Ionized Calcium Gabi (4.5-5.3) mg/dL Alkaline Phosphatase (38-126) U/L Total Protein (6.3-8.2) g/dL Albumin (3.5-5.0) g/dL Microbiology - Last 24 Hours (Table) 03/19/20 10:28 Gram Stain - Preliminary Neck Wound Culture - Preliminary Gram Neg Bacilli 03/19/20 19:40 Gram Stain - Preliminary Sputum Sputum Culture - Preliminary
[2020-03-20 13:27] LABS: Glucose,Whole Blood 141 mg/dL (75-99)
--- NOTE | 2020-03-20 16:37 | P.PN ---
Subjective Progress Note Date: 03/20/20 Principal diagnosis: Acute hypoxic respiratory failure, massive ascites, liver cirrhosis, possible abdominal sepsis. This is a 64-year-old white male patient status post low anterior resection for strictures and diverticular disease, and this is postoperative day #6. Following his surgery on February 08 patient had a thrombus discomfort within the distal popliteal vein in his left leg, on the liver night patient had a CT angiogram of the chest which was a suboptimal study and did not reveal any large saddle all of central pulmonary emboli. The computed tomography scan showed evidence of small bilateral pleural effusions and multifocal groundglass opacities that could relate to pulmonary edema and/or pneumonia. His chest x- ray from February 11 showed bilateral infiltrates that could be consistent with pneumonia or heart failure. VQ scan showed indeterminate probability for pulmonary embolism. Patient has been confused, apparently he does have history of chronic EtOH, but it has been 60 since his admission, he remains very confused, he is on 3 L of oxygen and the pulse ox of 95%, he was started on heparin infusion for DVT in his left leg. We did not think there was a pulmonary embolism based on his workup. His brain CT showed no acute intracranial abnormality. In addition there is a possibility of GI bleeding as the patient has been passing some dark stools. Is not appear to be in any respiratory distress, he remains lethargic, confused. Neurology is following, EEGs in progress. Dr. Araujo is planning on EGD tomorrow for evaluation of black stools. On 02/14/2020 patient seen in follow-up on general medical surgical floor his heparin drip is off, his 0.9 normal saline running at 75 ML per hour, appears to be more awake on today's exam, although still confused, she is only oriented to percent, no agitation. No signs of respiratory difficulty, he is on 3 L of oxygen pulse ox is 95%, hemodynamically stable, his abdomen is slightly tender postsurgery, his incision covered with dressing, his been afebrile, breathing is nonlabored, lung sounds reveal a few basilar crackles, no rhonchi or wheezing. Surgery is planned and on EGD today, neurology is following, EEG revealed background slowing of moderate degree suggestive of generalized cerebral dysfunction related to toxic metabolic encephalopathy. Today's hemoglobin is 8.6, had one bowel movement this morning. On 02/15/2020 patient seen in follow-up on general medical surgical floor, patient had EGD done yesterday which did not reveal any active bleeding, patient was restarted on heparin infusion for evidence of DVT in his lower extremity, no worsening dyspnea, patient is still on and off lethargic, but appears to be in no acute distress. He is on 3 L of oxygen pulse ox of 95%, his been afebrile, completed chest pain. No hemoptysis. Today's hemoglobin is 9.0. On 02/26/2020 we were reconsulted in view of significant clinical deterioration last night, rapid response team was called, alva gama was activated at 0243 in the morning on 02/26/2020. Apparently patient was having ongoing abdominal pain for the past few days prior to the event, he was believed to have ileus. His abdominal CT of abdomen and pelvis was done on 02/19/2020 showing postoperative changes in the sigmoid colon, proximal to this level there was abnormal thickening of the right colon, some thickened small bowel loops were also present, no is no evidence of free air, there was evidence of increased amount of ascites. There was interval development of bilateral pleural effusions and associated atelectasis. Past few days patient also developed a low urine output urology also consulted on the case for difficult Lemus insertion and possible urinary retention. Yesterday on 02/25/2020 ultrasound abdomen showed moderate ascites in the right flank. His abdomen continued to be more distended and painful, patient was eating some oral intake, however his blood pressures were running on the lower side, his urine output continued to be low, there was paracentesis planned a possibility of ascites. Last night patient developed hypothermia, and hypotension. Patient became unresponsive, and there was no palpable pulse. CPR was started and immediately patient became responsive, CPR was stopped, patient was emergently intubated placed on mechanical ventilator and transferred to the intensive care unit. ID service has been following, patient's antibiotic coverage includes daptomycin. This morning he seen in the intensive care unit, sedated, intubated, on assist-control mode of ventilation, with a rate of 16, tidal planning is 500, FiO2 of 50%, and PEEP of 5. This was blood gases showed pO2 of 88, pCO2 of 29, and pH is 7.34. Patient is hypotensive, he is requiring levo fed at 0.43 mics per kilo per minute over 25 mics per minute, Diprivan and is at 40 mics per kilo per minute, patient has received fluid resuscitation, yesterday she had received 2 L of fluid from the surgical team earlier in the day, and he received additional 2 L bolus after his cardiac pulmonary arrest early this morning, his maintenance IV fluids are currently infusing at a rate of 75 ML per hour. Patient kidney to be hypotensive, we gave him an additional liter fluid bolus today, and she will be started on a vasopressin infusion for refractory hypotension. Blood cultures have been sent, pending at this time. Prior blood cultures and sputum culture. Patient's abdomen remains very tense, distended, firm, with the area of redness and discoloration, and induration near the mid abdominal surgical incision. Patient has a lot of generalized swelling, he is weeping from the catheter insertion sites. He had right femoral central line catheter placed by Dr. Jarrell at the bedside and a right radial art line placed for close hemodynamic monitoring. This morning's lab work has been reviewed showing squamous cell count of 21.8, hemoglobin of 8.9, sodium of 137, potassium is 4.1, chloride is 119, CO2 is 10, BUN is 10 and creatinine 0.64, patient was given 2 A of sodium bicarbonate. Reevaluated today on 02/27/20, patient is in the ICU, intubated and mechanically ventilated, his assist-control rate is 16 volume is 500 FiO2 is still on the percent, PEEP is 5. ABG today showed a pO2 of 104 pCO2 of 29 pH of 7.34 hence recommended that the patient gets the PEEP up to 8, and I cut down his FiO2 to 80%. Patient remains on norepinephrine at 46 mcg/m, he is also on bicarb drip, vasopressin was added today at 0.03, propofol is at 50 mcg/kg/m. Patient also remains on fluconazole and on daptomycin, his abdominal paracentesis was not therapeutic, it was mostly diagnostic, and so far the fluid does not seem to be diagnostic. Continues to have slight leakage from the site of his paracentesis, and the patient put out almost 3 L out in 24 hours from the same site where the paracentesis was done. Patient developed bilateral pleural effusions, however the ultrasound did not show enough fluid to perform a thoracentesis safely. Hence will hold on thoracentesis. Poor quality ultrasound pictures noted, cannot trust to perform safe thoracentesis on this patient. Hence we will hold, patient had repeat paracentesis by interventional radiology, and over 4.7 L of fluids were removed from the peritoneal cavity, and that will definitely improved the pleural effusions which are mostly related to his ascites. Reevaluated today on 02/28/20, patient remains intubated and mechanically ventilated, his ventilator settings are assist control rate of 16 volume is 500 FiO2 is 35%, PEEP at 8. ABG showed a pO2 of 92 pCO2 of 33 pH of 7.38. Patient remains on propofol at 50 mcg/kg/m, he is on bicarb but I cut it down to 25 ML per hour drip. On norepinephrine at 0.8 mcg/kg/m, and vasopressin at 0.03 units per minutes. Patient is also on TPN. Urine output is ranging between 50-100 m L/h. Patient had a total of 4.7 L drained from his peritoneal cavity/paracentesis, and at least 3 L drip spontaneously from the site of the paracentesis into a collecting bag. Fluid so far is nondiagnostic, does not seem to be infected, it is basically transudate of fluid. Patient did receive yesterday albumin and Lasix, not a significant response was noted with the Lasix. But his urine output improved more so after the paracentesis, and I suspect that the patient may have had abdominal compartment syndrome improved with paracentesis. Patient remains on broad-spectrum antibiotics for pres umptive abdominal sepsis, WBC count is 24.2 hemoglobin is 9.2. Electrolytes are relatively normal. Chest x-ray showed small bilateral pleural effusions, improved compared to the chest x-ray, and I believe that's mostly because the patient had significant amount of fluid drained with the paracentesis done yesterday. Ultrasound of the liver yesterday showed liver length of 16.1, it was heterogeneous, and there was evidence of abdominal ascites in the right upper quadrant with right pleural effusion. Reevaluated today on 03/01/20, patient remains in the ICU, intubated and mechanically ventilated. His ventilator settings are assist control rate of 16 FiO2 is 35% tidal volume is 500 PEEP is 5. Patient remains on norepinephrine at 0.17 mcg/kg/m, he is also on propofol at 50 mcg/kg/m, TPN and 0.9 normal saline at 10 mL per hour. Chest x-ray continues to show by basilar atelectasis with s mall pleural effusions. ABG showed a pO2 of 88 pCO2 of 31 pH of 7.57, hence his rate was cut down to 12. And FiO2 was increased to 40%. WBC count is 13.6 hemoglobin is 8.3. Basic metabolic profile is normal except for low potassium of 3.1. Patient remains sedated, not quite ready for any weaning trials, however will try to assess mental status of possible off propofol. Patient was reevaluated today on 03/02/20, remains in the ICU, intubated and mechanically ventilated. Patient remains on assist control rate of 10 tidal volume is 500 FiO2 is 50% and PEEP of 5. ABG earlier before the rate changed to 10 showed a pO2 of 65 pCO2 of 33 pH of 7.61. Patient remains on norepinephrine at 0.09 mcg/kg/m, he is on propofol at 30 mcg/kg/m he is also on enteral feeding and 0.9 normal saline was added today at 100 mL per hour. Patient seems to be developing a picture of contraction metabolic alkalosis with slight respiratory alkalosis. Hence I have recommended hydrating the patient, discontinued Lasix, and recommended Diamox. He will receive Diamox at 250 mg IV push every 12 hours. Patient seems to have decent urine output, his ascites and bipedal edema seems to be improving. I believe the patient may be actually developing contraction alkalosis. I have discontinued his TPN, and kept him on enteral feeding. WBC count today is 12.2 hemoglobin is 9.1. Electrolytes are normal except for low potassium of 2.9 which is not unusual considering that his pH is 7.60. That is being corrected. And his bicarb is 33 today. Chest x-ray shows bilateral pleural effusions small, previous ultrasound showed not large enough to consider thoracentesis. Both improved significantly post paracentesis. Reevaluated today on 03/18/20, patient remains in the ICU, remains intubated and mechanically ventilated. The main issue on this patient today seems to be related to bleeding around the tracheostomy site. Hence his Lovenox has been placed on hold, patient is requiring even a unit of packed RBCs this morning for low hemoglobin in the range of 6.5. He is now on assist control rate of 10 tidal volume is 500 FiO2 is 60% and PEEP is 5. ABG this morning showed a pO2 of 75 pCO2 of 27 pH of 7.48. Patient is on TPN at 55 ML per hour, his IV fluid will be cut down from 75 mL per hour to 25 mL per hour. Remains on Eraxis and on Zosyn, and I have held his Lovenox because of the bleeding around the tracheostomy site and the patient is requiring a unit of packed RBCs this morning. WBC count today is 12.9 hemoglobin 6.5. PTT is normal PT is normal. Electrolytes showed elevated sodium of 145 potassium is low at 3.0 BUN is 22 creatinine is 0.53. Yesterday after evaluating the patient, I recommended a paracentesis, and this was done by interventional radiology. Patient had 5.7 L of straw-colored fluid removed from his peritoneal cavity. And this was done by ultrasound guidance. Next x-ray today showed progression of the left lung infiltrate, however I believe this is most likely related to aspiration of blood from the tracheostomy site bleeding. Reevaluated today on 03/19/20, patient remains intubated and mechanically ventilated. He is now on assist control rate of 10 tidal volume is 500 FiO2 is 50% and PEEP is 5. ABG showed a pO2 of 80 pCO2 of 34 pH of 7.40. Patient remains on TPN, he is in sinus rhythm, rate is about 100. Patient remains encephalopathic, opens eyes, but does not follow any instructions whatsoever. He has significant chocolate colored drainage around the tracheostomy site, for which I recommended culturing and adjust antibiotics accordingly. It is basically purulent mucus mixed with blood. In the meantime the patient remains on Zosyn, and I believe the patient seems to have almost absolute contraindication to anticoagulation, and considering the patient had DVT, we'll arrange for IVC filter placement by vascular surgery. WBC count today is 10.7 hemoglobin is 7.9. ABG showed a pO2 of 80 pCO2 of 34 pH of 7.40 and this is on 50% FiO2. Platelets are [id number] chest x-ray showed improvement in the left sided infiltrate. But not completely resolved Patient was reevaluated today on 03/20/20, remains intubated and mechanically ve ntilated. Patient remains encephalopathic. Does not follow any instructions, opens eyes only. Remains quite frail looking and ill-looking. Ventilator settings are assist control rate of 10 tidal volume is 500 FiO2 60% and PEEP of 5, his oxygenation seems to be marginal, hence I increased the PEEP up to 10 and FiO2 up to 100.. Patient has been on antibiotics and steroids, his abdomen is distended again, and may require paracentesis again and again. Considering his overall picture, we requested the to come in and discuss his overall condition. came in today, and I had a long discussion with the regarding his overall poor prognostic picture, and I believe the is going to consider seriously comfort care measures. Patient is doing poorly, and we have not made any significant improvement on this patient since admission. Not to mention the patient is encephalopathic, and his neurological status is extremely poor. Chest x-ray continues to show bilateral infiltrates. WBC count is 17 hemoglobin is 10. ABG today showed a pO2 of 69 pCO2 of 35 pH of 7.40. Renal profile is normal electrolytes are normal bicarb is 20. Ammonia level is 18 today Objective - Vital Signs Vital signs: Vital Signs Temp 97.2 F L 03/20/20 12:00 Pulse 115 H 03/20/20 16:00 Resp 20 03/20/20 16:00 BP 116/77 03/20/20 16:00 Pulse Ox 97 03/20/20 16:00 Intake & Output 03/19/20 03/20/20 03/20/20 18:59 06:59 18:59 Intake Total 1098 1977 875 Output Total 800 975 458 Balance 298 1002 417 Weight 63.9 kg 64.6 kg Intake: IV 1038 943 875 Anidulafungin 100 mg In 100 100 Sodium Chloride 0.9% 100 ml @ 84 mls/hr IVPB DAILY [facility] Rx#:[id number] MVI 605 660 495 Piperacillin-Tazobactam 3 100 100 100 .375 gm In Sodium Chloride 0.9% 100 ml @ 25 mls/hr IVPB Q8HR [facility] Rx# :[id number] Pressure bag 33 3 Sodium Chloride 0.9% 1, 200 180 180 000 ml @ 20 mls/hr IV . Q24H [facility] Rx#:[id number] Intake, IV Titration 1034 Amount Mvi, Adult No.4 with Vit 1034 K 10 ml Trace (Conc-1Ml/ Dose) 1 ml Sodium Acetate 10 meq Potassium Acetate 40 meq Calcium Gluconate 1 gm Magnesium Sulfate gm 0.75 gm Potassium Phosphate 10 mmol In Amino Acids 5 %/Dextrose 20 % 1,000 ml @ 55 mls/hr IV .[id number] [facility] Rx#: [id number] Other 60 Output: Gastric Drainage 400 500 150 Urine 400 475 308 Other: Voiding Method Indwelling Catheter Indwelling Catheter Indwelling Catheter # Voids 0 # Bowel Movements 1 ABP, PAP, CO, CI - Last Documented Arterial Blood Pressure 126/63 - Exam GENERAL EXAM: Intubated sedated 64-year-old white male, mechanically ventila robert, via tracheostomy. HEAD: Normocephalic/atraumatic. ENT: PERRLA, EOMI, no icterus, tracheostomy is intact however, significant amount of purulent and bloody drainage noted around the tracheostomy siteP addition be suctioned and culture. NECK: No masses, no JVD, no thyroid enlargement, no adenopathy. Midline tracheostomy in place, patient connected to the ventilator with assist control mode of ventilation CHEST: No chest wall deformity. Symmetrical expansion. LUNGS: Fine crackles at the bases. CVS: Regular rate and rhythm, normal S1 and S2, no gallops, no murmurs, no rubs ABDOME distended again, and positive ascites. abdominal incision is clean dry and intact, well approximated and healed, yvonne are in place, intact, the surgical yvonne are still in place EXTREMITIES: No clubbing, 2+ bipedal edema, good pulses bilaterally MUSCULOSKELETAL: Significant motor weakness in all 4 extremities. The patient has diffuse anasarca and edema in all 4 extremities. SKIN: No rashes CENTRAL NERVOUS SYSTEM: Arousable, opens eyes, does not follow any instructions. Generally weak. - Labs CBC & Chem 7: 03/20/20 04:16 03/20/20 04:16 Labs: Abnormal Lab Results - Last 24 Hours (Table) 03/19/20 03/19/20 03/20/20 Range/Units 17:30 23:31 04:10 WBC (3.8-10.6) k/uL RBC (4.30-5.90) m/uL Hgb (13.0-17.5) gm/dL Hct (39.0-53.0) % MCV (80.0-100.0) fL RDW (11.5-15.5) % Plt Count (150-450) k/uL Neutrophils # (Manual) (1.3-7.7) k/uL Lymphocytes # (Manual) (1.0-4.8) k/uL ABG pO2 69 L (83-108) mmHg Chloride (98-107) mmol/L Carbon Dioxide (22-30) mmol/L Creatinine (0.66-1.25) mg/dL Glucose (74-99) mg/dL POC Glucose (mg/dL) 153 H 151 H (75-99) mg/dL Calcium (8.4-10.2) mg/dL Ionized Calcium Gabi (4.5-5.3) mg/dL Alkaline Phosphatase (38-126) U/L Total Protein (6.3-8.2) g/dL Albumin (3.5-5.0) g/dL 03/20/20 03/20/20 03/20/20 Range/Units 04:16 04:16 06:13 WBC 17.0 H (3.8-10.6) k/uL RBC 3.17 L (4.30-5.90) m/uL Hgb 10.0 L D (13.0-17.5) gm/dL Hct 32.0 L (39.0-53.0) % MCV 100.9 H (80.0-100.0) fL RDW 17.8 H (11.5-15.5) % Plt Count 142 L (150-450) k/uL Neutrophils # (Manual) 16.30 H (1.3-7.7) k/uL Lymphocytes # (Manual) 0.17 L (1.0-4.8) k/uL ABG pO2 (83-108) mmHg Chloride 120 H (98-107) mmol/L Carbon Dioxide 20 L (22-30) mmol/L Creatinine 0.42 L (0.66-1.25) mg/dL Glucose 165 H (74-99) mg/dL POC Glucose (mg/dL) 153 H (75-99) mg/dL Calcium 8.3 L (8.4-10.2) mg/dL Ionized Calcium Gabi 5.7 H (4.5-5.3) mg/dL Alkaline Phosphatase 265 H (38-126) U/L Total Protein 4.8 L (6.3-8.2) g/dL Albumin 1.8 L (3.5-5.0) g/dL 12/17/20 Range/Units 13:25 WBC (3.8-10.6) k/uL RBC (4.30-5.90) m/uL Hgb (13.0-17.5) gm/dL Hct (39.0-53.0) % MCV (80.0-100.0) fL RDW (11.5-15.5) % Plt Count (150-450) k/uL Neutrophils # (Manual) (1.3-7.7) k/uL Lymphocytes # (Manual) (1.0-4.8) k/uL ABG pO2 (83-108) mmHg Chloride (98-107) mmol/L Carbon Dioxide (22-30) mmol/L Creatinine (0.66-1.25) mg/dL Glucose (74-99) mg/dL POC Glucose (mg/dL) 141 H (75-99) mg/dL Calcium (8.4-10.2) mg/dL Ionized Calcium Gabi (4.5-5.3) mg/dL Alkaline Phosphatase (38-126) U/L Total Protein (6.3-8.2) g/dL Albumin (3.5-5.0) g/dL Microbiology - Last 24 Hours (Table) 03/19/20 10:28 Gram Stain - Preliminary Neck Wound Culture - Preliminary Gram Neg Bacilli 03/19/20 19:40 Gram Stain - Preliminary Sputum Sputum Culture - Preliminary Assessment and Plan Assessment: 1. Acute hypoxic respiratory failure secondary to ongoing aspiration. The patient has developed recurrent aspiration. #2. Acute cardiac pulmonary arrest on 02/26/2020 related to septic shock, patient required a brief CPR, was intubated and fluid resuscitated, and she is currently off pressors and he is hemodynamicaly stable #3. Increased bibasilar opacities and a chest x-ray shows bilateral pleural effusions.this is consistent with aspiration pneumonia, and the patient has a gram-negative bacillus in his sputum. Repeat cultures are pending. In the meantime the patient remains on Zosyn. #4. recurrent bowel obstruction. The patient has a high-grade bowel obstruction. Seems to have resolved. #5. Massive ascites, status post high-volume paracentesis, on 02/27/2020 with removal of 8 L of ascitic fluid, and repeat paracentesis on 2019 would removal of 6 L of fluid and then 4.5 liters on 03/09/2020, slight abdominal distention today's evaluation. There is some recurrence distention the abdomen and possibly some recurrent ascites. Last paracentesis was done on 02/15, and 5.7 L removed. #6. Non-anion gap metabolic acidosis related to septic shock, resolved. #7. hypotension secondary to above. Resolved. #8. Elevated d-dimer, nonspecific, doubt possibility of pulmonary embolism. However the patient does have positive DVT. Patient has basically absolute contraindication to anticoagulations, and I will recommend IVC filter placement. #9. Diverticulitis, status post lower anterior resection, takedown of splenic flexure and partial omentectomy #10. Alcohol abuse with alcohol withdrawal #11. Recent history dark black stools the possibility of upper GI bleeding, negative EGD #12. Altered mental status, related to metabolic encephalopathy, #13. History of diverticular disease #14 intermittent episodes of bleeding around the tracheostomy site, would hold Lovenox for the next 24 hours, and possibly restart once the bleeding is completely under control. Otherwise may have to seriously consider a [place] filter placement. Recommendation: Continue present supportive care measures. Continue TPN. Continue IV Zosyn and eraxis. Continue mechanical ventilation, and intermittently try weaning with a pressure support and CPAP. Patient did tolerate pressure support and CPAP yesterday. Continue hydrocortisone. Had a long discussion with the today at bedside, explained to her his overall status, and his prognosis, and the will likely proceed with comfort care measures either today or tomorrow. Critical care time is over 30 minutes Time with Patient: Greater than 30
[2020-03-20 17:42] LABS: Glucose,Whole Blood 148 mg/dL (75-99)
--- NOTE | 2020-03-20 19:37 | P.PN ---
Progress Note - Text Progress Note Date: 03/20/20 - Chief Complaint Abdominal surgery History of presenting complaint: This is a pleasant 64-year-old patient of . Patient been having complication to his diverticulitis. computed tomography scan on January 08. Showed some possible stricture. Hepatic steatosis. February 06- undergone low anterior resection. Epidural for pain control.patient had elevated d-dimer. Pulmonary embolism felt to be unlikely. CT was suboptimal. VQ scan was intermediate probability. Leg DVT treated with IV heparin. Had some dark stools.also patient had had altered mental status. [place] to be encephalopathy.computed tomography scan of the brain was unremarkable. EGD-no evidence of bleeding. Patient more awake after dose of baclofen cutback. changed over to xarelto.x-ray showing ileus. Patient did start having bowel movements. Repeat computed tomography scan of abdomen showed possible enteritis./Colitis.as abdomen appeared distended. Lemus catheter was placed. No urine retention.-patient become hypotensive. Had a brief cardiac and pulmonary arrest Moved to ICU. Had to be intubated. Drips include norepinephrine, vasopressin, propofol. NG tube to suction.also treated for aspiration pneumonia and abdominal wall cellulitis.ascitic fluid that was tapped was unremarkable.4.5 L of acetic fluid removed. On March 06 underwent tracheostomy.Dophoff tube was placed and then had to be removed because of abdominal distention. Patient felt to have recurrent aspiration. Today. RQB-[id number]-qvyuij are 19 and a PEEP of 10. NG tube. Telemetry- sinus rhythm. Drips include TPN and lipids. IVC filter placed by Dr. Bailey today. Review of systems: Patient unable to provide a history Active Medications Albuterol/Ipratropium (Ipratropium-Albuterol 3 Ml Neb) 3 ml INHALATION RT-Q4H [facility] Last Admin: 03/20/20 16:28 Dose: 3 ml Documented by: Albuterol/Ipratropium (Ipratropium-Albuterol 3 Ml Neb) 3 ml INHALATION RT-Q2H PRN PRN Reason: Shortness Of Breath Or Wheezing Atorvastatin Calcium (Atorvastatin 20 Mg Tab) 20 mg OG-TUBE HS [facility] Last Admin: 03/19/20 20:36 Dose: 20 mg Documented by: Ferrous Sulfate (Ferrous Sulfate Oral Elixir 300 Mg/5 Ml Cup) 300 mg PO BID- W/MEALS [facility] Last Admin: 03/20/20 17:38 Dose: 300 mg Documented by: Folic Acid (Folic Acid 1 Mg Tab) 1 mg OG-TUBE DAILY [facility] Last Admin: 03/20/20 10:03 Dose: 1 mg Documented by: Hydrocortisone Sodium Succinate (Hydrocortisone Succinate 100 Mg/2 Ml Vial) 50 mg IV Q12HR [facility] Last Admin: 03/20/20 10:02 Dose: 50 mg Documented by: Piperacillin Sod/Tazobactam (Sod 3.375 gm/ Sodium Chloride) 100 mls @ 25 mls/hr IVPB Q8HR [facility] Last Admin: 03/20/20 16:06 Dose: 25 mls/hr Documented by: Anidulafungin 100 mg/ Sodium (Chloride) 100 mls @ 84 mls/hr IVPB DAILY [facility] Last Admin: 03/20/20 10:04 Dose: 84 mls/hr Documented by: Sodium Chloride (Saline 0.9%) 1,000 mls @ 20 mls/hr IV .Q24H [facility] Last Admin: 03/19/20 23:38 Dose: 20 mls/hr Documented by: Propofol 1,000 mg/ IV Solution 100 mls @ 0 mls/hr IV .Q0M [facility]; Protocol Last Titration: 03/16/20 07:16 Dose: 0 mcg/kg/min, 0 mls/hr Documented by: Fat Emulsion Intravenous 250 (ml/ IV Solution) 250 mls @ 21 mls/hr IV MoWeFr [facility] Last Admin: 03/19/20 17:31 Dose: 21 mls/hr Documented by: Parenteral Vitamin Supplement 10 ml/ Chromium/Copper/Manganese/Seleni/Zn 1 ml/Sodium Acetate 10 meq/Potassium Acetate 40 meq/Calcium Gluconate 1 gm/Magnesium Sulfate 0.75 gm/Potassium Phosphate 10 mmol/Amino Acids/Dextrose 1,050.8333 mls @ 55 mls/hr IV .Q19H7M [facility] Stop: 03/20/20 22:00 Last Admin: 03/20/20 07:07 Dose: Not Given Documented by: Parenteral Vitamin Supplement 10 ml/ Chromium/Copper/Manganese/Seleni/Zn 1 ml/Sodium Acetate 10 meq/Potassium Acetate 40 meq/Magnesium Sulfate 0.75 gm/Potassium Phosphate 10 mmol/Amino Acids/Dextrose 1,040.8333 mls @ 55 mls/hr IV .BY DURATION [facility] Sodium Acetate 10 meq/Potassium Acetate 40 meq/Magnesium Sulfate 0.75 gm/Potassium Phosphate 10 mmol/Amino Acids/Dextrose 1,029.8333 mls @ 55 mls/hr IV .BY DURATION [facility] Insulin Aspart (Insulin Aspart (Novolog) 100 Unit/Ml Vial) 0 unit SQ Q6H [facility]; Protocol Last Admin: 03/20/20 17:44 Dose: 2 unit Documented by: Metoclopramide HCl (Metoclopramide 5 Mg/Ml 2 Ml Vial) 10 mg IVP Q6HR PRN PRN Reason: Nausea and Vomiting Miscellaneous Information (Magnesium Replacement Protocol 1 Each Mis) 1 each MISCELLANE DAILY PRN; Protocol PRN Reason: Per Protocol Miscellaneous Information (Potassium Replacement Protocol 1 Each [facility]) 1 each MISCELLANE DAILY PRN; Protocol PRN Reason: Per Protocol Ondansetron HCl (Ondansetron 4 Mg/2 Ml Vial) 4 mg IVP Q8HR PRN PRN Reason: Nausea And Vomiting Pantoprazole Sodium (Pantoprazole 40 Mg/10 Ml Vial) 40 mg IVP BID [facility] Last Admin: 03/20/20 10:02 Dose: 40 mg Documented by: Sodium Chloride (Sodium Chloride 0.9% Flush 10 Ml Syringe) 10 ml IV Q4HR PRN PRN Reason: PICC Line Sodium Chloride (Sodium Chloride 0.9% Flush 10 Ml Syringe) 10 ml IV WEEKLY [facility] Last Admin: 03/14/20 09:12 Dose: 10 ml Documented by: Sodium Chloride (Sodium Chloride 0.9% Flush 10 Ml Syringe) 20 ml IV Q4HR PRN PRN Reason: PICC Line Tamsulosin HCl (Tamsulosin 0.4 Mg Cap.Er.24h) 0.4 mg PO HS [facility] Last Admin: 03/19/20 20:36 Dose: 0.4 mg Documented by: Thiamine HCl (Thiamine 100 Mg/Ml 2 Ml Vial) 100 mg IVP DAILY [facility] Last Admin: 03/20/20 10:03 Dose: 100 mg Documented by: Physical examination: VITAL SIGNS: 97.8, 115, 20, 116/77, 90% on the ventilator GENERAL: Laying in bed, tired. Tracheostomy tube, EYES: Pupils equal. Conjunctiva normal. HEENT:, Dry oral cavity, OG tube NECK: JVD unable to assess; masses not palpable. Tracheostomy tube HEART: First and second heart sounds are normal; edema LUNGS: Respiratory rate increased; decreased breath sounds. ABDOMEN: Soft, distended , nontender, , liver spleen not palpable. Lemus catheter PSYCH: Unable to assess INVESTIGATIONS, reviewed in the clinical context: March 20: White count 17 hemoglobin 10 platelets 142 potassium 4 creatinine 0.4 to March 19: White count 10.7 hemoglobin 7.9 platelets 105 potassium 4 creatinine 0.50 March 18: White count 7.9 hemoglobin 8.2 platelets 157 bun 22 creatinine 0153 March 17: White count 7.6 hemoglobin 8.2 increased neutrophil March 16: White count 8.2 hemoglobin 8.2 potassium 3.8 creatinine 0.69. Chest x-ray-some improvement reported March 15: White count 7.6 hemoglobin 8.6. Distal 68 potassium 3.8 creatinine 1.03 March 13: White count 18.2 hemoglobin 9.6 platelets 253 potassium 4.2 creatinine 1.15. Chest x-ray bilateral infiltrates and fluid March 12: White count 8.8 hemoglobin 9.3 ABG-pH 7.48 pO2 76 potassium 4.4 creatinine 0.82 March 11: White count 20.9 hemoglobin 9.9 platelets 393 potassium 4.2 crit 0.77 albumin 1.9 March 10: White count 22.6 hemoglobin 9.7 platelets 366potassium 4.1 creatinine 0.67 March 09: White count 18.2, hemoglobin 9.5, platelets 369 sodium 147 potassium 4.2 creatinine 0.77 March 08: White count 98.1 hemoglobin 19.3 platelets 329 sodium 148 potassium 3.2 right 126 creatinine 0.7 to albumin 1.9 March 07: White count 24 hemoglobin 9.8 platelets 366 potassium 3.7 creatinine 0.73 White count 16.4 hemoglobin 8.8 platelets 276 potassium 3.5 creatinine 0.71 Previous testing EEG shows evidence of encephalopathy Computed tomography scan of the brain-mild atrophy 2-D echocardiogram-EF 55-60% VQ scan-intermediate probability Chest CTA-suboptimal study. Doppler ultrasound-positive for thrombus within the distal popliteal vein White count 10.2 hemoglobin 14.2 potassium 3.6 B12 some 08 Previously AST 129 ALT 50 Computed tomography scan of the abdomen from January 08-possible colitis, diverticulitis, some esophagitis, hepatic steatosis Abdominal x-ray film personally reviewed by me shows ileus Sputum growing [place] Assessment: -Acute bleeding from the tracheostomy and also aspirated from the G-tube. 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 Repeat paracentesis. 4.5 L.-repeat paracentesis is 4.4 L.. Repeat paracentesis 4 L removed -Mild hyponatremia -Hypernatremia -Macrocytic anemia. -Acute DVT in the left distal popliteal vein -Acute alcohol withdrawal syndrome with improvement -Right lower lobe pneumonia -Mild protein calorie malnutrition from decreased oral intake -Tracheostomy tube placed on March 06 -Metabolic encephalopathy-no improvement -Dobbhoff tube placed and removed -TPN and lipids -IVC filter placed-March [address] Bailey Plan: [place] filter placed by Dr. Bailey. On TPN and lipids. IV antifungal. IV hydrocortisone. IV Zosyn. Dr. Menchaca,/quality control technician spoke to patient's at the bedside. About poor prognosis. is considering comfort measures. Prognosis guarded Thank you Dr. Lee
[2020-03-20] MEDS: ATORVASTATIN 20 MG TAB OG-TUBE SCH (21:50)
[2020-03-20] MEDS: TAMSULOSIN 0.4 MG CAP.ER.24H PO SCH (21:50)
[2020-03-20] MEDS: SODIUM CHLORIDE 0.9% 1,000 ML IV SCH (22:22)
[2020-03-20 23:41] LABS: Glucose,Whole Blood 135 mg/dL (75-99)
[2020-03-20] MEDS: 1: MVI, ADULT NO.4 WITH VIT K 10 ML, TRACE (CONC-1ML/DOSE) 1 ML, SODIUM ACETATE 10 MEQ, IV SCH ×7 (23:41)
[2020-03-21] MEDS: PIPERACILLIN-TAZOBACTAM 3.375 GM in SODIUM CHLORIDE 0.9% 100 ML IVPB SCH ×4 (00:55→23:04)
[2020-03-21] MEDS: IPRATROPIUM-ALBUTEROL 3 ML NEB INHALATION SCH ×7 (03:30→23:14)
[2020-03-21 04:27] LABS: Ionized Calcium 5.7 mg/dL (4.5-5.3)
[2020-03-21 04:38] LABS: African American GFR (CKD) >90 (>60 ml/min/1.73 sqM); Anion Gap 2 mmol/L; Calcium 8.5 mg/dL (8.4-10.2); Carbon Dioxide 21 mmol/L (22-30); Chloride 120 mmol/L (98-107); Glucose 152 mg/dL (74-99); Non-African American GFR(CKD) >90 (>60 ml/min/1.73 sqM); Phosphorus 3.6 mg/dL (2.5-4.5); Sodium 143 mmol/L (137-145)
[2020-03-21 04:52] LABS: Blood Urea Nitrogen 21 mg/dL (9-20)
[2020-03-21 05:32] LABS: ABG Base Excess -2.1 mmol/L; ABG HCO3 23 mmol/L (21-25); ABG PCO2 36 mmHg (35-45); ABG PH 7.41 (7.35-7.45); ABG PO2 65 mmHg (83-108); ABG TCO2 24 mmol/L (19-24); Allen Test Performed? Yes
[2020-03-21 06:09] LABS: Glucose,Whole Blood 155 mg/dL (75-99)
[2020-03-21] MEDS: INSULIN ASPART (NovoLOG) 100 UNIT/ML VIAL SQ SCH ×4 (06:09→23:21)
[2020-03-21] MEDS: FERROUS SULFATE ORAL ELIXIR 300 MG/5 ML CUP PO SCH ×2 (06:48→17:41)
--- NOTE | 2020-03-21 09:38 | XR ---
EXAMINATION TYPE: XR chest 1V portable DATE OF EXAM: 03/21/2020 COMPARISON: 03/20/2020 HISTORY: Shortness of breath TECHNIQUE: Single frontal view of the chest is obtained. FINDINGS: There is bilateral consolidation which is stable from prior exam. Stable small left pleura l effusion. PICC line noted. NG tube stable. Tracheostomy tube stable. Chronic rib deformities noted. No pneumothorax. IMPRESSION: Stable bilateral airspace disease and pleural effusion.
[2020-03-21] MEDS: ANIDULAFUNGIN 100 MG in SODIUM CHLORIDE 0.9% 100 ML IVPB SCH (09:43)
[2020-03-21] MEDS: HYDROCORTISONE SUCCINATE 100 MG/2 ML VIAL IV SCH ×2 (09:44→22:56)
[2020-03-21] MEDS: THIAMINE 100 MG/ML 2 ML VIAL IVP SCH (09:44)
[2020-03-21] MEDS: PANTOPRAZOLE 40 MG/10 ML VIAL IVP SCH ×2 (09:44→22:56)
[2020-03-21] MEDS: FOLIC ACID 1 MG TAB OG-TUBE SCH (09:44)
[2020-03-21 11:59] LABS: Glucose,Whole Blood 141 mg/dL (75-99)
--- NOTE | 2020-03-21 13:42 | P.PN ---
Subjective Progress Note Date: 03/21/20 CHIEF COMPLAINT: Diverticulitis HISTORY OF PRESENT ILLNESS: Patient is status post lower anterior resection, takedown of splenic flexure and partial omentectomy on 02/07/2020. The morning of 02/26/20 patient was transferred to the ICU after STEVE KUMAR was called. Patient had become hypothermic and hypotensive. Patient become unresponsive they lost pulse and CPR was initiated. Patient did require to be intubated. Patient remains in the ICU. He is on mechanical ventilation. Patient has had no further bleeding from the tracheostomy site. He is status post IVC filter placement yesterday. He is scheduled for abdominal paracentesis today. He did have a bowel movement. Afebrile. WBC 17 culture from neck growing gram- negative bacilli PHYSICAL EXAM: VITAL SIGNS: Reviewed. GENERAL: Well-developed in no acute distress. HEENT: No sclera icterus. Extraocular movements grossly intact. Moist buccal mucosa. Head is atraumatic, normocephalic. ABDOMEN: distended Incision clean dry and intact. NEUROLOGIC: Patient is awake and able to open eyes. ASSESSMENT: 1. Cardiopulmonary arrest and acute hypoxic respiratory failure secondary to septic shock. 2. Diverticulitis status post lower anterior resection, takedown of splenic flexure and partial omentectomy on 02/07/2020 3. Patient's abdominal distention likely related to ileus, ascites from his liver cirrhosis and possible hernia. 4. Alcohol abuse with alcohol withdrawal 5. New left leg DVT during this admission. Unable to tolerate anticoagulation. He is now status post IVC filter placement 6. ileus 7. Black stools. Resolved. No evidence of upper GI bleed on EGD. EGD was normal 8. Altered mental status likely due to cardiac arrest and superimposed toxic metabolic encephalopathy. Followed by neurology 9. Possible aspiration pneumonia 10. Severe protein calorie malnutrition 11. Liver cirrhosis with abdominal ascites status post multiple paracentesis during this admission 12. Patient status post tracheostomy for acute hypoxic respiratory failure PLAN: -Continue supportive care -Continue antibiotics -Continue TPN for nutrition support -Continue NG tube for decompression -Overall condition guarded Physician Product Sales Representative note has been reviewed by physician. Signing provider agrees with the documented findings, assessment, and plan of care. Objective - Vital Signs Vital signs: Vital Signs Temp 98.9 F 03/21/20 12:00 Pulse 98 03/21/20 13:00 Resp 13 03/21/20 13:00 BP 118/73 03/21/20 13:00 Pulse Ox 96 03/21/20 13:00 Intake & Output 03/20/20 03/21/20 03/21/20 18:59 06:59 18:59 Intake Total 1125 1000 725 Output Total 295 080 0588 Balance 609 152 -4786 Weight 64.6 kg 65 kg Intake: IV 1125 1000 725 Anidulafungin 100 mg In 100 100 Sodium Chloride 0.9% 100 ml @ 84 mls/hr IVPB DAILY [facility] Rx#:[id number] MVI 605 660 385 Piperacillin-Tazobactam 3 200 100 100 .375 gm In Sodium Chloride 0.9% 100 ml @ 25 mls/hr IVPB Q8HR [facility] Rx# :[id number] Sodium Chloride 0.9% 1, 220 240 140 000 ml @ 20 mls/hr IV . Q24H [facility] Rx#:[id number] Output: Gastric Drainage 150 Drainage 5250 Right Lower Lateral 5250 Abdomen Paracentesis site Urine 373 328 315 Other: Voiding Method Indwelling Catheter Indwelling Catheter ABP, PAP, CO, CI - Last Documented Arterial Blood Pressure 126/63 - Labs CBC & Chem 7: 03/20/20 04:16 03/21/20 04:04 Labs: Abnormal Lab Results - Last 24 Hours (Table) 03/20/20 03/20/20 03/21/20 Range/Units 17:40 23:39 04:04 ABG pO2 (83-108) mmHg ABG O2 Saturation (94-97) % Chloride 120 H (98-107) mmol/L Carbon Dioxide 21 L (22-30) mmol/L BUN 21 H (9-20) mg/dL Creatinine 0.41 L (0.66-1.25) mg/dL Glucose 152 H (74-99) mg/dL POC Glucose (mg/dL) 148 H 135 H (75-99) mg/dL Ionized Calcium Gabi 5.7 H (4.5-5.3) mg/dL 03/21/20 03/21/20 03/21/20 Range/Units 04:56 06:07 11:57 ABG pO2 65 L (83-108) mmHg ABG O2 Saturation 93.0 L (94-97) % Chloride (98-107) mmol/L Carbon Dioxide (22-30) mmol/L BUN (9-20) mg/dL Creatinine (0.66-1.25) mg/dL Glucose (74-99) mg/dL POC Glucose (mg/dL) 155 H 141 H (75-99) mg/dL Ionized Calcium Gabi (4.5-5.3) mg/dL Microbiology - Last 24 Hours (Table) 03/19/20 19:40 Gram Stain - Preliminary Sputum Sputum Culture - Preliminary Gram Neg Bacilli 03/19/20 10:28 Gram Stain - Final Neck Wound Culture - Final Klebsiella pneumoniae
--- NOTE | 2020-03-21 14:12 | P.PN ---
Subjective Progress Note Date: 03/21/20 Principal diagnosis: Left Lower Extremity DVT need for IVC filter Patient was seen and examined in the ICU. The patient is lying in bed. He still remains nonresponsive, but awake. He is status post IVC filter placement from yesterday. Palpable bilateral femoral pulses. Right groin site is clean dry and intact, no bleeding or hematoma noted. Bilateral lower extremities are warm to the touch with good capillary refill. Objective - Vital Signs Vital signs: Vital Signs Temp 97.6 F 03/21/20 04:00 Pulse 72 03/21/20 08:51 Resp 19 03/21/20 07:00 BP 106/80 03/21/20 07:00 Pulse Ox 94 L 03/21/20 07:00 Intake & Output 03/20/20 03/21/20 03/21/20 18:59 06:59 18:59 Intake Total 1125 1000 75 Output Total 523 328 30 Balance 602 672 45 Weight 64.6 kg 65 kg Intake: IV 1125 1000 75 Anidulafungin 100 mg In 100 Sodium Chloride 0.9% 100 ml @ 84 mls/hr IVPB DAILY [facility] Rx#:[id number] MVI 605 660 55 Piperacillin-Tazobactam 3 200 100 .375 gm In Sodium Chloride 0.9% 100 ml @ 25 mls/hr IVPB Q8HR [facility] Rx# :[id number] Sodium Chloride 0.9% 1, 220 240 20 000 ml @ 20 mls/hr IV . Q24H [facility] Rx#:[id number] Output: Gastric Drainage 150 Urine 373 328 30 Other: Voiding Method Indwelling Catheter Indwelling Catheter ABP, PAP, CO, CI - Last Documented Arterial Blood Pressure 126/63 - Exam VITAL SIGNS: Reviewed. GENERAL: Well-developed, does not appear to be in any acute distress. Tracheotostomy present. HEENT: Head is atraumatic, normocephalic. Trach site clean dry and intact Extremities: Bilateral lower extremities with Son wrap, bilateral upper extremities with swelling. Right groin access site, clean dry and intact. No active bleeding, no hematoma. Bilateral lower extremities warm to the touch with good capillary refill. NEUROLOGIC: Patient is awake and able to open eyes. Unable to follow commands. - Labs CBC & Chem 7: 03/20/20 04:16 03/21/20 04:04 Labs: Abnormal Lab Results - Last 24 Hours (Table) 03/20/20 03/20/20 03/20/20 Range/Units 13:25 17:40 23:39 ABG pO2 (83-108) mmHg ABG O2 Saturation (94-97) % Chloride (98-107) mmol/L Carbon Dioxide (22-30) mmol/L BUN (9-20) mg/dL Creatinine (0.66-1.25) mg/dL Glucose (74-99) mg/dL POC Glucose (mg/dL) 141 H 148 H 135 H (75-99) mg/dL Ionized Calcium Gabi (4.5-5.3) mg/dL 03/21/20 03/21/20 03/21/20 Range/Units 04:04 04:56 06:07 ABG pO2 65 L (83-108) mmHg ABG O2 Saturation 93.0 L (94-97) % Chloride 120 H (98-107) mmol/L Carbon Dioxide 21 L (22-30) mmol/L BUN 21 H (9-20) mg/dL Creatinine 0.41 L (0.66-1.25) mg/dL Glucose 152 H (74-99) mg/dL POC Glucose (mg/dL) 155 H (75-99) mg/dL Ionized Calcium Gabi 5.7 H (4.5-5.3) mg/dL Microbiology - Last 24 Hours (Table) 03/19/20 10:28 Gram Stain - Preliminary Neck Wound Culture - Preliminary Gram Neg Bacilli 03/19/20 19:40 Gram Stain - Preliminary Sputum Sputum Culture - Preliminary Assessment and Plan Assessment: 1. Left lower extremity DVT, not tolerating anticoagulation 2. Cardiopulmonary arrest and acute hypoxic respiratory failure secondary to septic shock. 3. Diverticulitis status post lower anterior resection, takedown of splenic flexure and partial omentectomy on 02/07/2020 4. Alcohol abuse with alcohol withdrawal 5. Liver cirrhosis with abdominal ascites status post multiple paracentesis during this admission 6. ileus 7. Black stools. Resolved. No evidence of upper GI bleed on EGD. EGD was no rmal 8. Altered mental status likely due to cardiac arrest and superimposed toxic metabolic encephalopathy. Followed by neurology 9. Possible aspiration pneumonia 10. Severe protein calorie malnutrition 11. Patient status post tracheostomy for acute hypoxic respiratory failure Plan: Continue with ICU and medical management. No further indications for any vascular surgical interventions at this time. Thank you for this consultation, we will sign off at this time. The above dictated assessment and findings were discussed with Dr. Lemus. The impression and plan of care have been directed as dictated.
--- NOTE | 2020-03-21 14:35 | US ---
Ultrasound-guided paracentesis. DATE OF EXAM: 03/21/2020 CLINICAL HISTORY: Ascites The procedure was discussed with the patient. The risks, complications, benefits, and alternatives we re discussed and any questions were answered. Informed consent was obtained. The patient was placed s upine on the ultrasound table and prepped and draped in the usual sterile fashion. All elements of maximal barrier technique were utilized. Under ultrasound guidance, access into the left lower quadrant was obtained, via the paracentesis catheter system and direct ultrasound guidance . Approximately 5.3 liters of straw-colored fluid was removed. The patient was stable throughout the pr ocedure and remained stable upon discharge from Department of Radiology. IMPRESSION: Successful paracentesis under ultrasound guidance.
--- NOTE | 2020-03-21 16:02 | P.PN ---
Subjective Progress Note Date: 03/21/20 Principal diagnosis: Acute hypoxic respiratory failure, massive ascites, liver cirrhosis, possible abdominal sepsis. This is a 64-year-old white male patient status post low anterior resection for strictures and diverticular disease, and this is postoperative day #6. Following his surgery on February 08 patient had a thrombus discomfort within the distal popliteal vein in his left leg, on the liver night patient had a CT angiogram of the chest which was a suboptimal study and did not reveal any large saddle all of central pulmonary emboli. The computed tomography scan showed evidence of small bilateral pleural effusions and multifocal groundglass opacities that could relate to pulmonary edema and/or pneumonia. His chest x- ray from February 11 showed bilateral infiltrates that could be consistent with pneumonia or heart failure. VQ scan showed indeterminate probability for pulmonary embolism. Patient has been confused, apparently he does have history of chronic EtOH, but it has been 60 since his admission, he remains very confused, he is on 3 L of oxygen and the pulse ox of 95%, he was started on heparin infusion for DVT in his left leg. We did not think there was a pulmonary embolism based on his workup. His brain CT showed no acute intracranial abnormality. In addition there is a possibility of GI bleeding as the patient has been passing some dark stools. Is not appear to be in any respiratory distress, he remains lethargic, confused. Neurology is following, EEGs in progress. Dr. Araujo is planning on EGD tomorrow for evaluation of black stools. On 02/14/2020 patient seen in follow-up on general medical surgical floor his heparin drip is off, his 0.9 normal saline running at 75 ML per hour, appears to be more awake on today's exam, although still confused, she is only oriented to percent, no agitation. No signs of respiratory difficulty, he is on 3 L of oxygen pulse ox is 95%, hemodynamically stable, his abdomen is slightly tender postsurgery, his incision covered with dressing, his been afebrile, breathing is nonlabored, lung sounds reveal a few basilar crackles, no rhonchi or wheezing. Surgery is planned and on EGD today, neurology is following, EEG revealed background slowing of moderate degree suggestive of generalized cerebral dysfunction related to toxic metabolic encephalopathy. Today's hemoglobin is 8.6, had one bowel movement this morning. On 02/15/2020 patient seen in follow-up on general medical surgical floor, patient had EGD done yesterday which did not reveal any active bleeding, patient was restarted on heparin infusion for evidence of DVT in his lower extremity, no worsening dyspnea, patient is still on and off lethargic, but appears to be in no acute distress. He is on 3 L of oxygen pulse ox of 95%, his been afebrile, completed chest pain. No hemoptysis. Today's hemoglobin is 9.0. On 02/26/2020 we were reconsulted in view of significant clinical deterioration last night, rapid response team was called, alva gama was activated at 0243 in the morning on 02/26/2020. Apparently patient was having ongoing abdominal pain for the past few days prior to the event, he was believed to have ileus. His abdominal CT of abdomen and pelvis was done on 02/19/2020 showing postoperative changes in the sigmoid colon, proximal to this level there was abnormal thickening of the right colon, some thickened small bowel loops were also present, no is no evidence of free air, there was evidence of increased amount of ascites. There was interval development of bilateral pleural effusions and associated atelectasis. Past few days patient also developed a low urine output urology also consulted on the case for difficult Lemus insertion and possible urinary retention. Yesterday on 02/25/2020 ultrasound abdomen showed moderate ascites in the right flank. His abdomen continued to be more distended and painful, patient was eating some oral intake, however his blood pressures were running on the lower side, his urine output continued to be low, there was paracentesis planned a possibility of ascites. Last night patient developed hypothermia, and hypotension. Patient became unresponsive, and there was no palpable pulse. CPR was started and immediately patient became responsive, CPR was stopped, patient was emergently intubated placed on mechanical ventilator and transferred to the intensive care unit. ID service has been following, patient's antibiotic coverage includes daptomycin. This morning he seen in the intensive care unit, sedated, intubated, on assist-control mode of ventilation, with a rate of 16, tidal planning is 500, FiO2 of 50%, and PEEP of 5. This was blood gases showed pO2 of 88, pCO2 of 29, and pH is 7.34. Patient is hypotensive, he is requiring levo fed at 0.43 mics per kilo per minute over 25 mics per minute, Diprivan and is at 40 mics per kilo per minute, patient has received fluid resuscitation, yesterday she had received 2 L of fluid from the surgical team earlier in the day, and he received additional 2 L bolus after his cardiac pulmonary arrest early this morning, his maintenance IV fluids are currently infusing at a rate of 75 ML per hour. Patient kidney to be hypotensive, we gave him an additional liter fluid bolus today, and she will be started on a vasopressin infusion for refractory hypotension. Blood cultures have been sent, pending at this time. Prior blood cultures and sputum culture. Patient's abdomen remains very tense, distended, firm, with the area of redness and discoloration, and induration near the mid abdominal surgical incision. Patient has a lot of generalized swelling, he is weeping from the catheter insertion sites. He had right femoral central line catheter placed by Dr. Jarrell at the bedside and a right radial art line placed for close hemodynamic monitoring. This morning's lab work has been reviewed showing squamous cell count of 21.8, hemoglobin of 8.9, sodium of 137, potassium is 4.1, chloride is 119, CO2 is 10, BUN is 10 and creatinine 0.64, patient was given 2 A of sodium bicarbonate. Reevaluated today on 02/27/20, patient is in the ICU, intubated and mechanically ventilated, his assist-control rate is 16 volume is 500 FiO2 is still on the percent, PEEP is 5. ABG today showed a pO2 of 104 pCO2 of 29 pH of 7.34 hence recommended that the patient gets the PEEP up to 8, and I cut down his FiO2 to 80%. Patient remains on norepinephrine at 46 mcg/m, he is also on bicarb drip, vasopressin was added today at 0.03, propofol is at 50 mcg/kg/m. Patient also remains on fluconazole and on daptomycin, his abdominal paracentesis was not therapeutic, it was mostly diagnostic, and so far the fluid does not seem to be diagnostic. Continues to have slight leakage from the site of his paracentesis, and the patient put out almost 3 L out in 24 hours from the same site where the paracentesis was done. Patient developed bilateral pleural effusions, however the ultrasound did not show enough fluid to perform a thoracentesis safely. Hence will hold on thoracentesis. Poor quality ultrasound pictures noted, cannot trust to perform safe thoracentesis on this patient. Hence we will hold, patient had repeat paracentesis by interventional radiology, and over 4.7 L of fluids were removed from the peritoneal cavity, and that will definitely improved the pleural effusions which are mostly related to his ascites. Reevaluated today on 02/28/20, patient remains intubated and mechanically ventilated, his ventilator settings are assist control rate of 16 volume is 500 FiO2 is 35%, PEEP at 8. ABG showed a pO2 of 92 pCO2 of 33 pH of 7.38. Patient remains on propofol at 50 mcg/kg/m, he is on bicarb but I cut it down to 25 ML per hour drip. On norepinephrine at 0.8 mcg/kg/m, and vasopressin at 0.03 units per minutes. Patient is also on TPN. Urine output is ranging between 50-100 m L/h. Patient had a total of 4.7 L drained from his peritoneal cavity/paracentesis, and at least 3 L drip spontaneously from the site of the paracentesis into a collecting bag. Fluid so far is nondiagnostic, does not seem to be infected, it is basically transudate of fluid. Patient did receive yesterday albumin and Lasix, not a significant response was noted with the Lasix. But his urine output improved more so after the paracentesis, and I suspect that the patient may have had abdominal compartment syndrome improved with paracentesis. Patient remains on broad-spectrum antibiotics for pres umptive abdominal sepsis, WBC count is 24.2 hemoglobin is 9.2. Electrolytes are relatively normal. Chest x-ray showed small bilateral pleural effusions, improved compared to the chest x-ray, and I believe that's mostly because the patient had significant amount of fluid drained with the paracentesis done yesterday. Ultrasound of the liver yesterday showed liver length of 16.1, it was heterogeneous, and there was evidence of abdominal ascites in the right upper quadrant with right pleural effusion. Reevaluated today on 03/01/20, patient remains in the ICU, intubated and mechanically ventilated. His ventilator settings are assist control rate of 16 FiO2 is 35% tidal volume is 500 PEEP is 5. Patient remains on norepinephrine at 0.17 mcg/kg/m, he is also on propofol at 50 mcg/kg/m, TPN and 0.9 normal saline at 10 mL per hour. Chest x-ray continues to show by basilar atelectasis with s mall pleural effusions. ABG showed a pO2 of 88 pCO2 of 31 pH of 7.57, hence his rate was cut down to 12. And FiO2 was increased to 40%. WBC count is 13.6 hemoglobin is 8.3. Basic metabolic profile is normal except for low potassium of 3.1. Patient remains sedated, not quite ready for any weaning trials, however will try to assess mental status of possible off propofol. Patient was reevaluated today on 03/02/20, remains in the ICU, intubated and mechanically ventilated. Patient remains on assist control rate of 10 tidal volume is 500 FiO2 is 50% and PEEP of 5. ABG earlier before the rate changed to 10 showed a pO2 of 65 pCO2 of 33 pH of 7.61. Patient remains on norepinephrine at 0.09 mcg/kg/m, he is on propofol at 30 mcg/kg/m he is also on enteral feeding and 0.9 normal saline was added today at 100 mL per hour. Patient seems to be developing a picture of contraction metabolic alkalosis with slight respiratory alkalosis. Hence I have recommended hydrating the patient, discontinued Lasix, and recommended Diamox. He will receive Diamox at 250 mg IV push every 12 hours. Patient seems to have decent urine output, his ascites and bipedal edema seems to be improving. I believe the patient may be actually developing contraction alkalosis. I have discontinued his TPN, and kept him on enteral feeding. WBC count today is 12.2 hemoglobin is 9.1. Electrolytes are normal except for low potassium of 2.9 which is not unusual considering that his pH is 7.60. That is being corrected. And his bicarb is 33 today. Chest x-ray shows bilateral pleural effusions small, previous ultrasound showed not large enough to consider thoracentesis. Both improved significantly post paracentesis. Reevaluated today on 03/18/20, patient remains in the ICU, remains intubated and mechanically ventilated. The main issue on this patient today seems to be related to bleeding around the tracheostomy site. Hence his Lovenox has been placed on hold, patient is requiring even a unit of packed RBCs this morning for low hemoglobin in the range of 6.5. He is now on assist control rate of 10 tidal volume is 500 FiO2 is 60% and PEEP is 5. ABG this morning showed a pO2 of 75 pCO2 of 27 pH of 7.48. Patient is on TPN at 55 ML per hour, his IV fluid will be cut down from 75 mL per hour to 25 mL per hour. Remains on Eraxis and on Zosyn, and I have held his Lovenox because of the bleeding around the tracheostomy site and the patient is requiring a unit of packed RBCs this morning. WBC count today is 12.9 hemoglobin 6.5. PTT is normal PT is normal. Electrolytes showed elevated sodium of 145 potassium is low at 3.0 BUN is 22 creatinine is 0.53. Yesterday after evaluating the patient, I recommended a paracentesis, and this was done by interventional radiology. Patient had 5.7 L of straw-colored fluid removed from his peritoneal cavity. And this was done by ultrasound guidance. Next x-ray today showed progression of the left lung infiltrate, however I believe this is most likely related to aspiration of blood from the tracheostomy site bleeding. Reevaluated today on 03/19/20, patient remains intubated and mechanically ventilated. He is now on assist control rate of 10 tidal volume is 500 FiO2 is 50% and PEEP is 5. ABG showed a pO2 of 80 pCO2 of 34 pH of 7.40. Patient remains on TPN, he is in sinus rhythm, rate is about 100. Patient remains encephalopathic, opens eyes, but does not follow any instructions whatsoever. He has significant chocolate colored drainage around the tracheostomy site, for which I recommended culturing and adjust antibiotics accordingly. It is basically purulent mucus mixed with blood. In the meantime the patient remains on Zosyn, and I believe the patient seems to have almost absolute contraindication to anticoagulation, and considering the patient had DVT, we'll arrange for IVC filter placement by vascular surgery. WBC count today is 10.7 hemoglobin is 7.9. ABG showed a pO2 of 80 pCO2 of 34 pH of 7.40 and this is on 50% FiO2. Platelets are [id number] chest x-ray showed improvement in the left sided infiltrate. But not completely resolved Patient was reevaluated today on 03/20/20, remains intubated and mechanically ve ntilated. Patient remains encephalopathic. Does not follow any instructions, opens eyes only. Remains quite frail looking and ill-looking. Ventilator settings are assist control rate of 10 tidal volume is 500 FiO2 60% and PEEP of 5, his oxygenation seems to be marginal, hence I increased the PEEP up to 10 and FiO2 up to 100.. Patient has been on antibiotics and steroids, his abdomen is distended again, and may require paracentesis again and again. Considering his overall picture, we requested the to come in and discuss his overall condition. came in today, and I had a long discussion with the regarding his overall poor prognostic picture, and I believe the is going to consider seriously comfort care measures. Patient is doing poorly, and we have not made any significant improvement on this patient since admission. Not to mention the patient is encephalopathic, and his neurological status is extremely poor. Chest x-ray continues to show bilateral infiltrates. WBC count is 17 hemoglobin is 10. ABG today showed a pO2 of 69 pCO2 of 35 pH of 7.40. Renal profile is normal electrolytes are normal bicarb is 20. Ammonia level is 18 today Reevaluated today on 03/21/20, patient remains intubated and mechanically ventilated. Remains in the ICU, he is on assist control rate of 10 tidal volume is 500 FiO2 70% PEEP of 10 cut down his FiO2 to 60%, and I plan to taper down further. His ABG showed a pO2 of 65 pCO2 of 36 pH of 7.41. He is on TPN at 55 mL/h, he is also on 0.9 normal saline at KVO. His sputum and his fluid from the trach site is showing gram-negative bacilli, previously had Klebsiella pneumonia. The final identification from the recent culture is pending. In the meantime the patient remains on Zosyn. Electrolytes are relatively normal renal profile is normal calcium is 8.5, ionized calcium is 5.7, patient may undergo paracentesis again today. According to the nurse, family is still undecided whether to go with comfort care measures or eventual transfer patient to ECF I believe the patient will not be accepted in ECF as long as he is having recurrent episodes of ascites requiring paracentesis almost quite frequently. Every few days. Chest x-ray is showing stable bilateral airspace disease and bilateral pleural effusions. The effusions will likely improve once the patient undergoes paracentesis again today. Objective - Vital Signs Vital signs: Vital Signs Temp 98.9 F 03/21/20 12:00 Pulse 105 H 03/21/20 14:00 Resp 20 03/21/20 14:00 BP 106/75 03/21/20 14:00 Pulse Ox 96 03/21/20 14:00 Intake & Output 03/20/20 03/21/20 03/21/20 18:59 06:59 18:59 Intake Total 1125 1000 725 Output Total 589 228 9471 Balance 605 570 -9321 Weight 64.6 kg 65 kg Intake: IV 1125 1000 725 Anidulafungin 100 mg In 100 100 Sodium Chloride 0.9% 100 ml @ 84 mls/hr IVPB DAILY JOANA Rx#:[id number] MVI 605 660 385 Piperacillin-Tazobactam 3 200 100 100 .375 gm In Sodium Chloride 0.9% 100 ml @ 25 mls/hr IVPB Q8HR JOANA Rx# :[id number] Sodium Chloride 0.9% 1, 220 240 140 000 ml @ 20 mls/hr IV . Q24H JOANA Rx#:[id number] Output: Gastric Drainage 150 Drainage 5250 Right Lower Lateral 5250 Abdomen Paracentesis site Urine 373 328 315 Other: Voiding Method Indwelling Catheter Indwelling Catheter ABP, PAP, CO, CI - Last Documented Arterial Blood Pressure 126/63 - Exam GENERAL EXAM: Intubated sedated 64-year-old white male, mechanically ventilated, via tracheostomy. HEAD: Normocephalic/atraumatic. ENT: PERRLA, EOMI, no icterus, tracheostomy is intact however, significant amount of purulent and bloody drainage noted around the tracheostomy siteP addition be suctioned and culture. NECK: No masses, no JVD, no thyroid enlargement, no adenopathy. Midline tracheostomy in place, patient connected to the ventilator with assist control mode of ventilation CHEST: No chest wall deformity. Symmetrical expansion. LUNGS: Fine crackles at the bases. CVS: Regular rate and rhythm, normal S1 and S2, no gallops, no murmurs, no rubs ABDOME distended again, and positive ascites. abdominal incision is clean dry and intact, well approximated and healed, yvonne are in place, intact, the surgical yvonne are still in place EXTREMITIES: No clubbing, 2+ bipedal edema, good pulses bilaterally MUSCULOSKELETAL: Significant motor weakness in all 4 extremities. The patient has diffuse anasarca and edema in all 4 extremities. SKIN: No rashes CENTRAL NERVOUS SYSTEM: Arousable, opens eyes, does not follow any instructions. Generally weak. - Labs CBC & Chem 7: 03/20/20 04:16 03/21/20 04:04 Labs: Abnormal Lab Results - Last 24 Hours (Table) 03/20/20 03/20/20 03/21/20 Range/Units 17:40 23:39 04:04 ABG pO2 (83-108) mmHg ABG O2 Saturation (94-97) % Chloride 120 H (98-107) mmol/L Carbon Dioxide 21 L (22-30) mmol/L BUN 21 H (9-20) mg/dL Creatinine 0.41 L (0.66-1.25) mg/dL Glucose 152 H (74-99) mg/dL POC Glucose (mg/dL) 148 H 135 H (75-99) mg/dL Ionized Calcium Gabi 5.7 H (4.5-5.3) mg/dL 03/21/20 03/21/20 03/21/20 Range/Units 04:56 06:07 11:57 ABG pO2 65 L (83-108) mmHg ABG O2 Saturation 93.0 L (94-97) % Chloride (98-107) mmol/L Carbon Dioxide (22-30) mmol/L BUN (9-20) mg/dL Creatinine (0.66-1.25) mg/dL Glucose (74-99) mg/dL POC Glucose (mg/dL) 155 H 141 H (75-99) mg/dL Ionized Calcium Gabi (4.5-5.3) mg/dL Microbiology - Last 24 Hours (Table) 03/19/20 19:40 Gram Stain - Preliminary Sputum Sputum Culture - Preliminary Gram Neg Bacilli 03/19/20 10:28 Gram Stain - Final Neck Wound Culture - Final Klebsiella pneumoniae Assessment and Plan Assessment: 1. Acute hypoxic respiratory failure secondary to ongoing aspiration. The patient has developed recurrent aspiration. #2. Acute cardiac pulmonary arrest on 02/26/2020 related to septic shock, patient required a brief CPR, was intubated and fluid resuscitated, and she is currently off pressors and he is hemodynamicaly stable #3. Increased bibasilar opacities and a chest x-ray shows bilateral pleural effusions.this is consistent with aspiration pneumonia, and the patient has a gram-negative bacillus in his sputum. Repeat cultures are pending. In the meantime the patient remains on Zosyn. #4. recurrent bowel obstruction. The patient has a high-grade bowel obstruction. Seems to have resolved. #5. Massive ascites, status post high-volume paracentesis, on 02/27/2020 with removal of 8 L of ascitic fluid, and repeat paracentesis on 2019 would removal of 6 L of fluid and then 4.5 liters on 03/09/2020, slight abdominal distention today's evaluation. There is some recurrence distention the abdomen and possibly some recurrent ascites. Today, patient underwent another paracentesis, and 5.3 L of fluid were removed. #6. Non-anion gap metabolic acidosis related to septic shock, resolved. #7. hypotension secondary to above. Resolved. #8. Elevated d-dimer, nonspecific, doubt possibility of pulmonary embolism. However the patient does have positive DVT. Patient has basically absolute contraindication to anticoagulations, and I will recommend IVC filter placement. #9. Diverticulitis, status post lower anterior resection, takedown of splenic flexure and partial omentectomy #10. Alcohol abuse with alcohol withdrawal #11. Recent history dark black stools the possibility of upper GI bleeding, negative EGD #12. Altered mental status, related to metabolic encephalopathy, #13. History of diverticular disease #14 intermittent episodes of bleeding around the tracheostomy site, status post IVC filter placement done by vascular surgery. Patient had contraindication to anticoagulations therapy. #15 status post IVC filter placement. #16 suspect undergoing Klebsiella pneumoniae pneumonia. Recommendation: Continue present supportive care measures. Continue TPN. Continue IV Zosyn and eraxis. Continue mechanical ventilation, and intermittently try weaning with a pressure support and CPAP. Continue hydrocortisone. Patient remains critically ill. is still undecided about comfort care measures although during my conversation she was just about ready to say go ahead with comfort care measures. At this point she is undecided Critical care time is over 30 minutes Time with Patient: Greater than 30
--- NOTE | 2020-03-21 16:13 | P.PN ---
Progress Note - Text Progress Note Date: 03/21/20 - Chief Complaint Abdominal surgery History of presenting complaint: This is a pleasant 64-year-old patient of . Patient been having complication to his diverticulitis. computed tomography scan on January 08. Showed some possible stricture. Hepatic steatosis. February 06- undergone low anterior resection. Epidural for pain control.patient had elevated d-dimer. Pulmonary embolism felt to be unlikely. CT was suboptimal. VQ scan was intermediate probability. Leg DVT treated with IV heparin. Had some dark stools.also patient had had altered mental status. [place] to be encephalopathy.computed tomography scan of the brain was unremarkable. EGD-no evidence of bleeding. Patient more awake after dose of baclofen cutback. changed over to xarelto.x-ray showing ileus. Patient did start having bowel movements. Repeat computed tomography scan of abdomen showed possible enteritis./Colitis.as abdomen appeared distended. Lemus catheter was placed. No urine retention.-patient become hypotensive. Had a brief cardiac and pulmonary arrest Moved to ICU. Had to be intubated. Drips include norepinephrine, vasopressin, propofol. NG tube to suction.also treated for aspiration pneumonia and abdominal wall cellulitis.ascitic fluid that was tapped was unremarkable.4.5 L of acetic fluid removed. On March 06 underwent tracheostomy.Dophoff tube was placed and then had to be removed because of abdominal distention. Patient felt to have recurrent aspiration. March 20- [place] filter placed. Because of significant bleeding from the tracheostomy site. Today. [id number] 16 a PEEP of 10. 5 L of paracentesis is done again today. Eyes open. NG tube. Getting TPN and lipids. Review of systems: Patient unable to provide a history Active Medications Albuterol/Ipratropium (Ipratropium-Albuterol 3 Ml Neb) 3 ml INHALATION RT-Q4H JOANA Last Admin: 03/21/20 12:27 Dose: 3 ml Documented by: Albuterol/Ipratropium (Ipratropium-Albuterol 3 Ml Neb) 3 ml INHALATION RT-Q2H PRN PRN Reason: Shortness Of Breath Or Wheezing Atorvastatin Calcium (Atorvastatin 20 Mg Tab) 20 mg OG-TUBE HS JOANA Last Admin: 03/20/20 21:50 Dose: 20 mg Documented by: Ferrous Sulfate (Ferrous Sulfate Oral Elixir 300 Mg/5 Ml Cup) 300 mg PO BID- W/MEALS [facility] [place] Last Admin: 03/21/20 06:48 Dose: 300 mg Documented by: Folic Acid (Folic Acid 1 Mg Tab) 1 mg OG-TUBE DAILY [facility] [place] Last Admin: 03/21/20 09:44 Dose: 1 mg Documented by: Hydrocortisone Sodium Succinate (Hydrocortisone Succinate 100 Mg/2 Ml Vial) 50 mg IV Q12HR [facility] [place] Last Admin: 03/21/20 09:44 Dose: 50 mg Documented by: Piperacillin Sod/Tazobactam (Sod 3.375 gm/ Sodium Chloride) 100 mls @ 25 mls/hr IVPB Q8HR [facility] [place] Last Admin: 03/21/20 09:43 Dose: 25 mls/hr Documented by: Anidulafungin 100 mg/ Sodium (Chloride) 100 mls @ 84 mls/hr IVPB DAILY [facility] [place] Last Admin: 03/21/20 09:43 Dose: 84 mls/hr Documented by: Sodium Chloride (Saline 0.9%) 1,000 mls @ 20 mls/hr IV .Q24H [facility] [place] Last Admin: 03/20/20 22:22 Dose: 20 mls/hr Documented by: Propofol 1,000 mg/ IV Solution 100 mls @ 0 mls/hr IV .Q0M [facility] [place]; Protocol Last Titration: 03/16/20 07:16 Dose: 0 mcg/kg/min, 0 mls/hr Documented by: Fat Emulsion Intravenous 250 (ml/ IV Solution) 250 mls @ 21 mls/hr IV MoWeFr [facility] [place] Last Admin: 03/19/20 17:31 Dose: 21 mls/hr Documented by: Parenteral Vitamin Supplement 10 ml/ Chromium/Copper/Manganese/Seleni/Zn 1 ml/Sodium Acetate 10 meq/Potassium Acetate 40 meq/Magnesium Sulfate 0.75 gm/Potassium Phosphate 10 mmol/Amino Acids/Dextrose 1,040.8333 mls @ 55 mls/hr IV .BY DURATION [facility] [place] Sodium Acetate 10 meq/Potassium Acetate 40 meq/Magnesium Sulfate 0.75 gm/Potassium Phosphate 10 mmol/Amino Acids/Dextrose 1,029.8333 mls @ 55 mls/hr IV .BY DURATION [facility] [place] Last Admin: 03/20/20 23:41 Dose: 55 mls/hr Documented by: Insulin Aspart (Insulin Aspart (Novolog) 100 Unit/Ml Vial) 0 unit SQ Q6H [facility] [place]; Protocol Last Admin: 03/21/20 12:59 Dose: 2 unit Documented by: Metoclopramide HCl (Metoclopramide 5 Mg/Ml 2 Ml Vial) 10 mg IVP Q6HR PRN PRN Reason: Nausea and Vomiting Miscellaneous Information (Magnesium Replacement Protocol 1 Each Misc) 1 each MISCELLANE DAILY PRN; Protocol PRN Reason: Per Protocol Miscellaneous Information (Potassium Replacement Protocol 1 Each Misc) 1 each MISCELLANE DAILY PRN; Protocol PRN Reason: Per Protocol Ondansetron HCl (Ondansetron 4 Mg/2 Ml Vial) 4 mg IVP Q8HR PRN PRN Reason: Nausea And Vomiting Pantoprazole Sodium (Pantoprazole 40 Mg/10 Ml Vial) 40 mg IVP BID [facility] [place] Last Admin: 03/21/20 09:44 Dose: 40 mg Documented by: Sodium Chloride (Sodium Chloride 0.9% Flush 10 Ml Syringe) 10 ml IV Q4HR PRN PRN Reason: PICC Line Sodium Chloride (Sodium Chloride 0.9% Flush 10 Ml Syringe) 10 ml IV WEEKLY [facility] [place] Last Admin: 03/21/20 09:44 Dose: 10 ml Documented by: Sodium Chloride (Sodium Chloride 0.9% Flush 10 Ml Syringe) 20 ml IV Q4HR PRN PRN Reason: PICC Line Tamsulosin HCl (Tamsulosin 0.4 Mg Cap.Er.24h) 0.4 mg PO HS [facility] [place] Last Admin: 03/20/20 21:50 Dose: Not Given Documented by: Thiamine HCl (Thiamine 100 Mg/Ml 2 Ml Vial) 100 mg IVP DAILY [facility] [place] Last Admin: 03/21/20 09:44 Dose: 100 mg Documented by: Physical examination: VITAL SIGNS: 98.9, 90, 14, 107/73, 96% on the ventilator GENERAL: Laying in bed, eyes open,. Tracheostomy tube, EYES: Pupils equal. Conjunctiva normal. HEENT:, Dry oral cavity, OG tube NECK: JVD unable to assess; masses not palpable. Tracheostomy tube HEART: First and second heart sounds are normal; edema LUNGS: Respiratory rate increased; decreased breath sounds. ABDOMEN: Soft, distended , nontender, , liver spleen not palpable. Lemus catheter PSYCH: Unable to assess INVESTIGATIONS, reviewed in the clinical context: March 09 18: Potassium 5 bun 21 creatinine 0.41 March 20: White count 17 hemoglobin 10 platelets 142 potassium 4 creatinine 0.4 to March 19: White count 10.7 hemoglobin 7.9 platelets 105 potassium 4 creatinine 0.50 March 18: White count 7.9 hemoglobin 8.2 platelets 157 bun 22 creatinine 0153 March 17: White count 7.6 hemoglobin 8.2 increased neutrophil March 16: White count 8.2 hemoglobin 8.2 potassium 3.8 creatinine 0.69. Chest x-ray-some improvement reported March 15: White count 7.6 hemoglobin 8.6. Distal 68 potassium 3.8 creatinine 1.03 March 13: White count 18.2 hemoglobin 9.6 platelets 253 potassium 4.2 creatinine 1.15. Chest x-ray bilateral infiltrates and fluid March 12: White count 8.8 hemoglobin 9.3 ABG-pH 7.48 pO2 76 potassium 4.4 creatinine 0.82 March 11: White count 20.9 hemoglobin 9.9 platelets 393 potassium 4.2 crit 0.77 albumin 1.9 March 10: White count 22.6 hemoglobin 9.7 platelets 366potassium 4.1 creatinine 0.67 March 09: White count 18.2, hemoglobin 9.5, platelets 369 sodium 147 potassium 4.2 creatinine 0.77 March 08: White count 98.1 hemoglobin 19.3 platelets 329 sodium 148 potassium 3.2 right 126 creatinine 0.7 to albumin 1.9 March 07: White count 24 hemoglobin 9.8 platelets 366 potassium 3.7 creatinine 0.73 White count 16.4 hemoglobin 8.8 platelets 276 potassium 3.5 creatinine 0.71 Previous testing EEG shows evidence of encephalopathy Computed tomography scan of the brain-mild atrophy 2-D echocardiogram-EF 55-60% VQ scan-intermediate probability Chest CTA-suboptimal study. Doppler ultrasound-positive for thrombus within the distal popliteal vein White count 10.2 hemoglobin 14.2 potassium 3.6 B12 some 08 Previously AST 129 ALT 50 Computed tomography scan of the abdomen from January 08-possible colitis, diverticulitis, some esophagitis, hepatic steatosis Abdominal x-ray film personally reviewed by me shows ileus Sputum growing [place] Assessment: -Acute bleeding from the tracheostomy and also aspirated from the G-tube. 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 Repeat paracentesis. 4.5 L.-repeat paracentesis is 4.4 L.. Repeat paracentesis 4 L removed-repeat paracentesis 5 L removed -Mild hyponatremia-corrected -Hypernatremia-corrected -Macrocytic anemia. -Acute DVT in the left distal popliteal vein-anticoagulation discontinued because of bleeding. -Acute alcohol withdrawal syndrome with improvement -Right lower lobe pneumonia -Mild protein calorie malnutrition from decreased oral intake -Tracheostomy tube placed on March 06 -Metabolic encephalopathy-no improvement -Dobbhoff tube placed and removed -TPN and lipids -IVC filter placed-March [address] Bailey Plan: Continue with antibiotics and antifungals. DP and lipids. Had paracentesis is again done today. Nurse informs me that the is here. She wants some of the family to come in on Tuesday. And would consider comfort measures accordingly. Prognosis poor Thank you Dr. Lee
[2020-03-21] MEDS: 1: MVI, ADULT NO.4 WITH VIT K 10 ML, TRACE (CONC-1ML/DOSE) 1 ML, SODIUM ACETATE 10 MEQ, IV SCH ×14 (17:42→17:44)
[2020-03-21] MEDS: SODIUM CHLORIDE 0.9% 1,000 ML IV SCH (17:45)
[2020-03-21] MEDS: FAT EMULSION 20% 250 ML in EMPTY BAG 1 BAG IV SCH (17:45)
[2020-03-21 18:00] LABS: Glucose,Whole Blood 102 mg/dL (75-99)
[2020-03-21] MEDS: ATORVASTATIN 20 MG TAB OG-TUBE SCH (22:56)
[2020-03-21] MEDS: TAMSULOSIN 0.4 MG CAP.ER.24H PO SCH (22:56)
--- NOTE | 2020-03-21 23:08 | PN ---
PROGRESS NOTE DATE OF SERVICE: 03/21/2020 REASON FOR FOLLOWUP: Aspiration pneumonia and oropharyngeal candidiasis. INTERVAL HISTORY: Patient is currently afebrile. The patient is hemodynamically stable, not on pressor support. FiO2 is currently stable at 55%. No further vomiting or aspiration has been reported or diarrhea. PHYSICAL EXAMINATION: Blood pressure 102/76, pulse of 114. Temperature 98. He is 99% on 55% FiO2. General description is a middle-aged male lying in bed in no distress. Respiratory system: Unlabored breathing, decreased intensity of breath sounds with no wheeze. Heart S1, S2. Regular rate and rhythm. ABDOMEN: Soft, no tenderness. LABS: BUN of 21, creatinine 0.41. DIAGNOSTIC IMPRESSION AND PLAN: Patient with elevated white count, multifactorial in this patient who did have a component of Klebsiella pneumonia, aspiration pneumonia candidiasis. The patient covered with Zosyn and Eraxis to continue and monitor clinical course closely. MMODL / IJN: [id number] /
[2020-03-21 23:11] LABS: Glucose,Whole Blood 155 mg/dL (75-99)
[2020-03-22] MEDS: IPRATROPIUM-ALBUTEROL 3 ML NEB INHALATION SCH ×5 (03:11→18:50)
[2020-03-22 04:56] LABS: ABG HCO3 24 mmol/L (21-25); ABG Oxygen Saturation 96.3 % (94-97); ABG PCO2 40 mmHg (35-45); ABG PH 7.39 (7.35-7.45); ABG PO2 76 mmHg (83-108); ABG TCO2 25 mmol/L (19-24); Allen Test Performed? Yes
[2020-03-22 05:59] LABS: Anisocytosis Slight; HCT 34.1 % (39.0-53.0); HGB 10.2 gm/dL (13.0-17.5); Hypochromasia Marked; MCH 30.3 pg (25.0-35.0); MCHC 29.9 g/dL (31.0-37.0); MCV 101.3 fL (80.0-100.0); Macrocytosis Moderate; Mean Platelet Volume 11.7; Platelet Count 195 k/uL (150-450); Poikilocytosis Slight; RBC 3.37 m/uL (4.30-5.90); RDW 17.1 % (11.5-15.5); WBC 21.4 k/uL (3.8-10.6)
[2020-03-22 06:03] LABS: Ionized Calcium 5.8 mg/dL (4.5-5.3)
[2020-03-22 06:17] LABS: African American GFR (CKD) >90 (>60 ml/min/1.73 sqM); Anion Gap 3 mmol/L; Blood Urea Nitrogen 21 mg/dL (9-20); Calcium 8.4 mg/dL (8.4-10.2); Carbon Dioxide 24 mmol/L (22-30); Chloride 118 mmol/L (98-107); Glucose 161 mg/dL (74-99); Magnesium 1.9 mg/dL (1.6-2.3); Non-African American GFR(CKD) >90 (>60 ml/min/1.73 sqM); Phosphorus 3.5 mg/dL (2.5-4.5); Potassium 4.5 mmol/L (3.5-5.1); Sodium 145 mmol/L (137-145)
[2020-03-22 06:19] LABS: Band Neutrophils % 2 %; Large Platelets Present; Lymphocytes # (M) 0.21 k/uL (1.0-4.8); Monocytes # (M) 0.64 k/uL (0-1.0); Neutrophils % (M) 94 %; Nucleated Red Blood Cells 0 /100 WBC (0-0); Total Cells Counted 100
[2020-03-22 06:40] LABS: Glucose,Whole Blood 161 mg/dL (75-99)
[2020-03-22] MEDS: INSULIN ASPART (NovoLOG) 100 UNIT/ML VIAL SQ SCH ×3 (06:57→19:02)
--- NOTE | 2020-03-22 07:24 | XR ---
EXAMINATION TYPE: XR chest 1V portable DATE OF EXAM: 03/22/2020 COMPARISON: 03/21/2020 HISTORY: Shortness of breath TECHNIQUE: Single frontal view of the chest is obtained. FINDINGS: NG tube, PICC line tracheostomy tube stable. Changes of COPD with diffuse interstitial pat tern, bilateral infiltrate, and small effusion. Chronic rib deformities noted. IMPRESSION: Stable diffuse pleural-parenchymal changes correlate for CHF versus pneumonia.
[2020-03-22] MEDS: PIPERACILLIN-TAZOBACTAM 3.375 GM in SODIUM CHLORIDE 0.9% 100 ML IVPB SCH ×2 (09:26→16:06)
[2020-03-22] MEDS: PANTOPRAZOLE 40 MG/10 ML VIAL IVP SCH ×2 (09:26→20:16)
[2020-03-22] MEDS: FOLIC ACID 1 MG TAB OG-TUBE SCH (09:26)
[2020-03-22] MEDS: ANIDULAFUNGIN 100 MG in SODIUM CHLORIDE 0.9% 100 ML IVPB SCH (09:26)
[2020-03-22] MEDS: THIAMINE 100 MG/ML 2 ML VIAL IVP SCH (09:26)
[2020-03-22] MEDS: HYDROCORTISONE SUCCINATE 100 MG/2 ML VIAL IV SCH ×2 (09:27→20:16)
[2020-03-22] MEDS: FERROUS SULFATE ORAL ELIXIR 300 MG/5 ML CUP PO SCH ×2 (09:27→19:01)
[2020-03-22] MEDS: MAGNESIUM SULFATE-D5W PMX 1 GM in DEXTROSE/WATER 1 100ML.BAG IVPB SCH ×2 (10:54→12:35)
[2020-03-22 11:33] LABS: Glucose,Whole Blood 152 mg/dL (75-99)
[2020-03-22] MEDS: 1: MVI, ADULT NO.4 WITH VIT K 10 ML, TRACE (CONC-1ML/DOSE) 1 ML, SODIUM ACETATE 10 MEQ, IV SCH ×7 (12:36)
--- NOTE | 2020-03-22 13:58 | P.PN ---
Subjective Progress Note Date: 03/22/20 Principal diagnosis: Acute hypoxic respiratory failure, massive ascites, liver cirrhosis, possible abdominal sepsis. This is a 64-year-old white male patient status post low anterior resection for strictures and diverticular disease, and this is postoperative day #6. Following his surgery on February 08 patient had a thrombus discomfort within the distal popliteal vein in his left leg, on the liver night patient had a CT angiogram of the chest which was a suboptimal study and did not reveal any large saddle all of central pulmonary emboli. The computed tomography scan showed evidence of small bilateral pleural effusions and multifocal groundglass opacities that could relate to pulmonary edema and/or pneumonia. His chest x- ray from February 11 showed bilateral infiltrates that could be consistent with pneumonia or heart failure. VQ scan showed indeterminate probability for pulmonary embolism. Patient has been confused, apparently he does have history of chronic EtOH, but it has been 60 since his admission, he remains very confused, he is on 3 L of oxygen and the pulse ox of 95%, he was started on heparin infusion for DVT in his left leg. We did not think there was a pulmonary embolism based on his workup. His brain CT showed no acute intracranial abnormality. In addition there is a possibility of GI bleeding as the patient has been passing some dark stools. Is not appear to be in any respiratory distress, he remains lethargic, confused. Neurology is following, EEGs in progress. Dr. Araujo is planning on EGD tomorrow for evaluation of black stools. On 02/14/2020 patient seen in follow-up on general medical surgical floor his heparin drip is off, his 0.9 normal saline running at 75 ML per hour, appears to be more awake on today's exam, although still confused, she is only oriented to percent, no agitation. No signs of respiratory difficulty, he is on 3 L of oxygen pulse ox is 95%, hemodynamically stable, his abdomen is slightly tender postsurgery, his incision covered with dressing, his been afebrile, breathing is nonlabored, lung sounds reveal a few basilar crackles, no rhonchi or wheezing. Surgery is planned and on EGD today, neurology is following, EEG revealed background slowing of moderate degree suggestive of generalized cerebral dysfunction related to toxic metabolic encephalopathy. Today's hemoglobin is 8.6, had one bowel movement this morning. On 02/15/2020 patient seen in follow-up on general medical surgical floor, patient had EGD done yesterday which did not reveal any active bleeding, patient was restarted on heparin infusion for evidence of DVT in his lower extremity, no worsening dyspnea, patient is still on and off lethargic, but appears to be in no acute distress. He is on 3 L of oxygen pulse ox of 95%, his been afebrile, completed chest pain. No hemoptysis. Today's hemoglobin is 9.0. On 02/26/2020 we were reconsulted in view of significant clinical deterioration last night, rapid response team was called, alva gama was activated at 0243 in the morning on 02/26/2020. Apparently patient was having ongoing abdominal pain for the past few days prior to the event, he was believed to have ileus. His abdominal CT of abdomen and pelvis was done on 02/19/2020 showing postoperative changes in the sigmoid colon, proximal to this level there was abnormal thickening of the right colon, some thickened small bowel loops were also present, no is no evidence of free air, there was evidence of increased amount of ascites. There was interval development of bilateral pleural effusions and associated atelectasis. Past few days patient also developed a low urine output urology also consulted on the case for difficult Lemus insertion and possible urinary retention. Yesterday on 02/25/2020 ultrasound abdomen showed moderate ascites in the right flank. His abdomen continued to be more distended and painful, patient was eating some oral intake, however his blood pressures were running on the lower side, his urine output continued to be low, there was paracentesis planned a possibility of ascites. Last night patient developed hypothermia, and hypotension. Patient became unresponsive, and there was no palpable pulse. CPR was started and immediately patient became responsive, CPR was stopped, patient was emergently intubated placed on mechanical ventilator and transferred to the intensive care unit. ID service has been following, patient's antibiotic coverage includes daptomycin. This morning he seen in the intensive care unit, sedated, intubated, on assist-control mode of ventilation, with a rate of 16, tidal planning is 500, FiO2 of 50%, and PEEP of 5. This was blood gases showed pO2 of 88, pCO2 of 29, and pH is 7.34. Patient is hypotensive, he is requiring levo fed at 0.43 mics per kilo per minute over 25 mics per minute, Diprivan and is at 40 mics per kilo per minute, patient has received fluid resuscitation, yesterday she had received 2 L of fluid from the surgical team earlier in the day, and he received additional 2 L bolus after his cardiac pulmonary arrest early this morning, his maintenance IV fluids are currently infusing at a rate of 75 ML per hour. Patient kidney to be hypotensive, we gave him an additional liter fluid bolus today, and she will be started on a vasopressin infusion for refractory hypotension. Blood cultures have been sent, pending at this time. Prior blood cultures and sputum culture. Patient's abdomen remains very tense, distended, firm, with the area of redness and discoloration, and induration near the mid abdominal surgical incision. Patient has a lot of generalized swelling, he is weeping from the catheter insertion sites. He had right femoral central line catheter placed by Dr. Jarrell at the bedside and a right radial art line placed for close hemodynamic monitoring. This morning's lab work has been reviewed showing squamous cell count of 21.8, hemoglobin of 8.9, sodium of 137, potassium is 4.1, chloride is 119, CO2 is 10, BUN is 10 and creatinine 0.64, patient was given 2 A of sodium bicarbonate. Reevaluated today on 02/27/20, patient is in the ICU, intubated and mechanically ventilated, his assist-control rate is 16 volume is 500 FiO2 is still on the percent, PEEP is 5. ABG today showed a pO2 of 104 pCO2 of 29 pH of 7.34 hence recommended that the patient gets the PEEP up to 8, and I cut down his FiO2 to 80%. Patient remains on norepinephrine at 46 mcg/m, he is also on bicarb drip, vasopressin was added today at 0.03, propofol is at 50 mcg/kg/m. Patient also remains on fluconazole and on daptomycin, his abdominal paracentesis was not therapeutic, it was mostly diagnostic, and so far the fluid does not seem to be diagnostic. Continues to have slight leakage from the site of his paracentesis, and the patient put out almost 3 L out in 24 hours from the same site where the paracentesis was done. Patient developed bilateral pleural effusions, however the ultrasound did not show enough fluid to perform a thoracentesis safely. Hence will hold on thoracentesis. Poor quality ultrasound pictures noted, cannot trust to perform safe thoracentesis on this patient. Hence we will hold, patient had repeat paracentesis by interventional radiology, and over 4.7 L of fluids were removed from the peritoneal cavity, and that will definitely improved the pleural effusions which are mostly related to his ascites. Reevaluated today on 02/28/20, patient remains intubated and mechanically ventilated, his ventilator settings are assist control rate of 16 volume is 500 FiO2 is 35%, PEEP at 8. ABG showed a pO2 of 92 pCO2 of 33 pH of 7.38. Patient remains on propofol at 50 mcg/kg/m, he is on bicarb but I cut it down to 25 ML per hour drip. On norepinephrine at 0.8 mcg/kg/m, and vasopressin at 0.03 units per minutes. Patient is also on TPN. Urine output is ranging between 50-100 m L/h. Patient had a total of 4.7 L drained from his peritoneal cavity/paracentesis, and at least 3 L drip spontaneously from the site of the paracentesis into a collecting bag. Fluid so far is nondiagnostic, does not seem to be infected, it is basically transudate of fluid. Patient did receive yesterday albumin and Lasix, not a significant response was noted with the Lasix. But his urine output improved more so after the paracentesis, and I suspect that the patient may have had abdominal compartment syndrome improved with paracentesis. Patient remains on broad-spectrum antibiotics for pres umptive abdominal sepsis, WBC count is 24.2 hemoglobin is 9.2. Electrolytes are relatively normal. Chest x-ray showed small bilateral pleural effusions, improved compared to the chest x-ray, and I believe that's mostly because the patient had significant amount of fluid drained with the paracentesis done yesterday. Ultrasound of the liver yesterday showed liver length of 16.1, it was heterogeneous, and there was evidence of abdominal ascites in the right upper quadrant with right pleural effusion. Reevaluated today on 03/01/20, patient remains in the ICU, intubated and mechanically ventilated. His ventilator settings are assist control rate of 16 FiO2 is 35% tidal volume is 500 PEEP is 5. Patient remains on norepinephrine at 0.17 mcg/kg/m, he is also on propofol at 50 mcg/kg/m, TPN and 0.9 normal saline at 10 mL per hour. Chest x-ray continues to show by basilar atelectasis with s mall pleural effusions. ABG showed a pO2 of 88 pCO2 of 31 pH of 7.57, hence his rate was cut down to 12. And FiO2 was increased to 40%. WBC count is 13.6 hemoglobin is 8.3. Basic metabolic profile is normal except for low potassium of 3.1. Patient remains sedated, not quite ready for any weaning trials, however will try to assess mental status of possible off propofol. Patient was reevaluated today on 03/02/20, remains in the ICU, intubated and mechanically ventilated. Patient remains on assist control rate of 10 tidal volume is 500 FiO2 is 50% and PEEP of 5. ABG earlier before the rate changed to 10 showed a pO2 of 65 pCO2 of 33 pH of 7.61. Patient remains on norepinephrine at 0.09 mcg/kg/m, he is on propofol at 30 mcg/kg/m he is also on enteral feeding and 0.9 normal saline was added today at 100 mL per hour. Patient seems to be developing a picture of contraction metabolic alkalosis with slight respiratory alkalosis. Hence I have recommended hydrating the patient, discontinued Lasix, and recommended Diamox. He will receive Diamox at 250 mg IV push every 12 hours. Patient seems to have decent urine output, his ascites and bipedal edema seems to be improving. I believe the patient may be actually developing contraction alkalosis. I have discontinued his TPN, and kept him on enteral feeding. WBC count today is 12.2 hemoglobin is 9.1. Electrolytes are normal except for low potassium of 2.9 which is not unusual considering that his pH is 7.60. That is being corrected. And his bicarb is 33 today. Chest x-ray shows bilateral pleural effusions small, previous ultrasound showed not large enough to consider thoracentesis. Both improved significantly post paracentesis. Reevaluated today on 03/18/20, patient remains in the ICU, remains intubated and mechanically ventilated. The main issue on this patient today seems to be related to bleeding around the tracheostomy site. Hence his Lovenox has been placed on hold, patient is requiring even a unit of packed RBCs this morning for low hemoglobin in the range of 6.5. He is now on assist control rate of 10 tidal volume is 500 FiO2 is 60% and PEEP is 5. ABG this morning showed a pO2 of 75 pCO2 of 27 pH of 7.48. Patient is on TPN at 55 ML per hour, his IV fluid will be cut down from 75 mL per hour to 25 mL per hour. Remains on Eraxis and on Zosyn, and I have held his Lovenox because of the bleeding around the tracheostomy site and the patient is requiring a unit of packed RBCs this morning. WBC count today is 12.9 hemoglobin 6.5. PTT is normal PT is normal. Electrolytes showed elevated sodium of 145 potassium is low at 3.0 BUN is 22 creatinine is 0.53. Yesterday after evaluating the patient, I recommended a paracentesis, and this was done by interventional radiology. Patient had 5.7 L of straw-colored fluid removed from his peritoneal cavity. And this was done by ultrasound guidance. Next x-ray today showed progression of the left lung infiltrate, however I believe this is most likely related to aspiration of blood from the tracheostomy site bleeding. Reevaluated today on 03/19/20, patient remains intubated and mechanically ventilated. He is now on assist control rate of 10 tidal volume is 500 FiO2 is 50% and PEEP is 5. ABG showed a pO2 of 80 pCO2 of 34 pH of 7.40. Patient remains on TPN, he is in sinus rhythm, rate is about 100. Patient remains encephalopathic, opens eyes, but does not follow any instructions whatsoever. He has significant chocolate colored drainage around the tracheostomy site, for which I recommended culturing and adjust antibiotics accordingly. It is basically purulent mucus mixed with blood. In the meantime the patient remains on Zosyn, and I believe the patient seems to have almost absolute contraindication to anticoagulation, and considering the patient had DVT, we'll arrange for IVC filter placement by vascular surgery. WBC count today is 10.7 hemoglobin is 7.9. ABG showed a pO2 of 80 pCO2 of 34 pH of 7.40 and this is on 50% FiO2. Platelets are [id number] chest x-ray showed improvement in the left sided infiltrate. But not completely resolved Patient was reevaluated today on 03/20/20, remains intubated and mechanically ve ntilated. Patient remains encephalopathic. Does not follow any instructions, opens eyes only. Remains quite frail looking and ill-looking. Ventilator settings are assist control rate of 10 tidal volume is 500 FiO2 60% and PEEP of 5, his oxygenation seems to be marginal, hence I increased the PEEP up to 10 and FiO2 up to 100.. Patient has been on antibiotics and steroids, his abdomen is distended again, and may require paracentesis again and again. Considering his overall picture, we requested the to come in and discuss his overall condition. came in today, and I had a long discussion with the regarding his overall poor prognostic picture, and I believe the is going to consider seriously comfort care measures. Patient is doing poorly, and we have not made any significant improvement on this patient since admission. Not to mention the patient is encephalopathic, and his neurological status is extremely poor. Chest x-ray continues to show bilateral infiltrates. WBC count is 17 hemoglobin is 10. ABG today showed a pO2 of 69 pCO2 of 35 pH of 7.40. Renal profile is normal electrolytes are normal bicarb is 20. Ammonia level is 18 today Reevaluated today on 03/21/20, patient remains intubated and mechanically ventilated. Remains in the ICU, he is on assist control rate of 10 tidal volume is 500 FiO2 70% PEEP of 10 cut down his FiO2 to 60%, and I plan to taper down further. His ABG showed a pO2 of 65 pCO2 of 36 pH of 7.41. He is on TPN at 55 mL/h, he is also on 0.9 normal saline at O. His sputum and his fluid from the trach site is showing gram-negative bacilli, previously had Klebsiella pneumonia. The final identification from the recent culture is pending. In the meantime the patient remains on Zosyn. Electrolytes are relatively normal renal profile is normal calcium is 8.5, ionized calcium is 5.7, patient may undergo paracentesis again today. According to the nurse, family is still undecided whether to go with comfort care measures or eventual transfer patient to ECF I believe the patient will not be accepted in ECF as long as he is having recurrent episodes of ascites requiring paracentesis almost quite frequently. Every few days. Chest x-ray is showing stable bilateral airspace disease and bilateral pleural effusions. The effusions will likely improve once the patient undergoes paracentesis again today. Reevaluated today on 03/22/20, remains in the ICU, intubated and mechanically ventilated. Patient is on assist control rate of 10 tidal volume is 500 FiO2 is 40% PEEP cut down from 10-5. ABG showed a pO2 of 76 pCO2 of 40 0 pH of 7.39. On 03/21 patient had another paracentesis and 5 L of fluid were drained from his peritoneal cavity. Remains on TPN at 55 ML per hour, IV fluids at KVO, remains on Zosyn. Chest x-ray is showing improvement in his infiltrates and pleural effusions bilaterally significantly improved since his paracentesis. She count is 21.4 hemoglobin is 10.2. Sodium is 145 potassium 4.5 chloride 118 bicarb is 24 BUN is 21 and creatinine 0.45 Objective - Vital Signs Vital signs: Vital Signs Temp 98.0 F 03/22/20 08:00 Pulse 100 03/22/20 11:22 Resp 17 03/22/20 09:00 BP 110/86 03/22/20 09:00 Pulse Ox 96 03/22/20 09:00 Intake & Output 03/21/20 03/22/20 03/22/20 18:59 06:59 18:59 Intake Total 2213.75 701 405 Output Total 5775 520 120 Balance -3561.25 181 285 Weight 65 kg 59.5 kg Intake: IV 1221 701 405 Anidulafungin 100 mg In 100 100 Sodium Chloride 0.9% 100 ml @ 84 mls/hr IVPB DAILY JOANA Rx#:[id number] Fat Emulsion 20% 250 ml 21 21 In Empty Bag 1 bag @ 21 mls/hr IV Q24H JOANA Rx#: [id number] MVI 660 660 165 Piperacillin-Tazobactam 3 200 100 .375 gm In Sodium Chloride 0.9% 100 ml @ 25 mls/hr IVPB Q8HR JOANA Rx# :[id number] Sodium Chloride 0.9% 1, 240 20 40 000 ml @ 20 mls/hr IV . Q24H OJANA Rx#:[id number] Intake, IV Titration 992.75 Amount Sodium Acetate 10 meq 992.75 Potassium Acetate 40 meq Magnesium Sulfate gm 0.75 gm Potassium Phosphate 10 mmol In Amino Acids 5 %/Dextrose 20 % 1,000 ml @ 55 mls/hr IV .BY DURATION JOANA Rx#: [id number] Output: Drainage 5250 Right Lower Lateral 5250 Abdomen Paracentesis site Urine 525 520 120 Other: Voiding Method Indwelling Catheter Indwelling Catheter ABP, PAP, CO, CI - Last Documented Arterial Blood Pressure 126/63 - Exam GENERAL EXAM: Intubated sedated 64-year-old white male, on mechanical ventilation. HEAD: Normocephalic/atraumatic. ENT: PERRLA, EOMI, no icterus, tracheostomy is intact however, significant amount of purulent and bloody drainage noted around the tracheostomy siteP addition be suctioned and culture. NECK: No masses, no JVD, no thyroid enlargement, no adenopathy. Midline tracheostomy in place, patient connected to the ventilator with assist control mode of ventilation CHEST: No chest wall deformity. Symmetrical expansion. LUNGS: Fine crackles at the bases. CVS: Regular rate and rhythm, normal S1 and S2, no gallops, no murmurs, no rubs ABDOMEN; distended again, and positive ascites. abdominal incision is clean dry and intact, well approximated and healed, yvonne are in place, intact, the surgical yvonne are still in place EXTREMITIES: No clubbing, 2+ bipedal edema, good pulses bilaterally MUSCULOSKELETAL: Significant motor weakness in all 4 extremities. The patient has diffuse anasarca and edema in all 4 extremities. SKIN: No rashes CENTRAL NERVOUS SYSTEM: Arousable, opens eyes, does not follow any instructions. Generally weak. - Labs CBC & Chem 7: 03/22/20 05:02 03/22/20 05:02 Labs: Abnormal Lab Results - Last 24 Hours (Table) 03/21/20 03/21/20 03/22/20 Range/Units 17:59 23:08 04:55 WBC (3.8-10.6) k/uL RBC (4.30-5.90) m/uL Hgb (13.0-17.5) gm/dL Hct (39.0-53.0) % MCV (80.0-100.0) fL MCHC (31.0-37.0) g/dL RDW (11.5-15.5) % Neutrophils # (Manual) (1.3-7.7) k/uL Lymphocytes # (Manual) (1.0-4.8) k/uL ABG pO2 76 L (83-108) mmHg ABG Total CO2 25 H (19-24) mmol/L Chloride (98-107) mmol/L BUN (9-20) mg/dL Creatinine (0.66-1.25) mg/dL Glucose (74-99) mg/dL POC Glucose (mg/dL) 102 H 155 H (75-99) mg/dL Ionized Calcium Gabi (4.5-5.3) mg/dL 03/22/20 03/22/20 03/22/20 Range/Units 05:02 05:02 06:39 WBC 21.4 H (3.8-10.6) k/uL RBC 3.37 L (4.30-5.90) m/uL Hgb 10.2 L (13.0-17.5) gm/dL Hct 34.1 L (39.0-53.0) % MCV 101.3 H (80.0-100.0) fL MCHC 29.9 L (31.0-37.0) g/dL RDW 17.1 H (11.5-15.5) % Neutrophils # (Manual) 20.50 H (1.3-7.7) k/uL Lymphocytes # (Manual) 0.21 L (1.0-4.8) k/uL ABG pO2 (83-108) mmHg ABG Total CO2 (19-24) mmol/L Chloride 118 H (98-107) mmol/L BUN 21 H (9-20) mg/dL Creatinine 0.45 L (0.66-1.25) mg/dL Glucose 161 H (74-99) mg/dL POC Glucose (mg/dL) 161 H (75-99) mg/dL Ionized Calcium Gabi 5.8 H (4.5-5.3) mg/dL 03/22/20 Range/Units 11:32 WBC (3.8-10.6) k/uL RBC (4.30-5.90) m/uL Hgb (13.0-17.5) gm/dL Hct (39.0-53.0) % MCV (80.0-100.0) fL MCHC (31.0-37.0) g/dL RDW (11.5-15.5) % Neutrophils # (Manual) (1.3-7.7) k/uL Lymphocytes # (Manual) (1.0-4.8) k/uL ABG pO2 (83-108) mmHg ABG Total CO2 (19-24) mmol/L Chloride (98-107) mmol/L BUN (9-20) mg/dL Creatinine (0.66-1.25) mg/dL Glucose (74-99) mg/dL POC Glucose (mg/dL) 152 H (75-99) mg/dL Ionized Calcium Gabi (4.5-5.3) mg/dL Microbiology - Last 24 Hours (Table) 03/19/20 19:40 Gram Stain - Final Sputum Sputum Culture - Final Klebsiella pneumoniae 03/19/20 10:28 Gram Stain - Final Neck Wound Culture - Final Klebsiella pneumoniae Assessment and Plan Assessment: 1. Acute hypoxic respiratory failure secondary to aspiration pneumonia and bilateral pleural effusions related to his ascites. #2. Acute cardiac pulmonary arrest on 02/26/2020 related to septic shock, patient required a brief CPR, was intubated and fluid resuscitated, and she is currently off pressors and he is hemodynamicaly stable #3. Increased bibasilar opacities and a chest x-ray shows bilateral pleural effusions.this is consistent with aspiration pneumonia, and effusion secondary to ascites. #4. recurrent bowel obstruction. The patient has a high-grade bowel obstruction. Seems to have resolved. #5. Massive ascites, status post high-volume paracentesis, on 02/27/2020 with removal of 8 L of ascitic fluid, and repeat paracentesis on 2019 would removal of 6 L of fluid and then 4.5 liters on 03/09/2020, slight abdominal distention today's evaluation. There is some recurrence distention the abdomen and possibly some recurrent ascites. Last paracentesis was on 03/21, and 5.3 L of fluid were removed. #6. Non-anion gap metabolic acidosis related to septic shock, resolved. #7. hypotension secondary to above. Resolved. #8. Elevated d-dimer, nonspecific, doubt possibility of pulmonary embolism. However the patient does have positive DVT. Patient has basically absolute contraindication to anticoagulations, and I will recommend IVC filter placement. #9. Diverticulitis, status post lower anterior resection, takedown of splenic flexure and partial omentectomy #10. Alcohol abuse with alcohol withdrawal #11. Recent history dark black stools the possibility of upper GI bleeding, negative EGD #12. Altered mental status, related to metabolic encephalopathy, #13. History of diverticular disease #14 intermittent episodes of bleeding around the tracheostomy site,/resolved. After holding heparin. #15 status post IVC filter placement. Patient had absolute contraindication to anticoagulations. #16 suspect undergoing Klebsiella pneumoniae pneumonia. Repeat sputum cultures from 03/19/20, showed Klebsiella pneumoniae again. Sensitive to Zosyn and the patient remains on Zosyn Recommendation: Continue present supportive care measures. Continue TPN. Continue IV Zosyn Continue mechanical ventilation, and intermittently try weaning with a pressure support and CPAP. Continue hydrocortisone. Patient remains critically ill. will likely decided on comfort care measures either tomorrow or Tuesday. In the meantime we'll continue to monitor in the ICU, Patient remains critically ill, and critical care time is over 30 minutes Time with Patient: Greater than 30
--- NOTE | 2020-03-22 15:07 | P.PN ---
Subjective Progress Note Date: 03/22/20 CHIEF COMPLAINT: Diverticulitis HISTORY OF PRESENT ILLNESS: The patient is a 64-year-old male with prolonged hospital course including sigmoid colectomy for diverticulitis, lower anterior resection, abdominal ascites, DVT, cardiac arrest, and now trach and PEG. Patient is in guarded condition. Currently he is patient being evaluated for comfort care due to no improvement of his clinical status. ROS: Recent pneumonia, cardiac arrest, pulmonary embolism. PHYSICAL EXAM: VITAL SIGNS: Reviewed CONSTITUTIONAL: Well developed and in no acute distress. EYES: Conjuctivae without sclera icterus. HEAD, EARS, NOSE, THROAT: Moist buccal mucosa. Head is atraumatic, normocephalic. Hears conversational speech. No nasal drainage. NECK: Supple. Trach site intact. RESPIRATORY: On full ventilatory support. CARDIOVASCULAR: Palpable 2+ radial pulses. ABDOMEN: Dressed and intact. Has ascites of the abdomen. MUSCULOSKELETAL: No gross deformity of the lower extremities noted. No clubbing. No cyanosis. SKIN: Good skin turgor. Well perfused. NEUROLOGIC: Deferred. On full ventilatory support. PSYCH: Deferred. On full ventilatory support. CLINICAL LABS: Reviewed. WBC elevated 17.0 to 21.4. Hgb stable 10.0 to 10.2. MICROBIOLOGY: Klebsiella from sputum ASSESSMENT: 1. Diverticulitis 2. Status post low anterior resection 3. Alcoholism 4. Ascites 5. Leukocytosis. 6. Abdominal wall cellulitis 7. Sepsis 8. Hypoxic respiratory failure 9. Pulmonary embolism PLAN: 1. He has no improvement of his clinical status. 2. Overall, his clinical condition is poor prognosis for which comfort care is advised Objective - Vital Signs Vital signs: Vital Signs Temp 98.0 F 03/22/20 08:00 Pulse 100 03/22/20 11:22 Resp 17 03/22/20 09:00 BP 110/86 03/22/20 09:00 Pulse Ox 96 03/22/20 09:00 Intake & Output 03/21/20 03/22/20 03/22/20 18:59 06:59 18:59 Intake Total 2213.75 701 405 Output Total 5775 520 120 Balance -3561.25 181 285 Weight 65 kg 59.5 kg Intake: IV 1221 701 405 Anidulafungin 100 mg In 100 100 Sodium Chloride 0.9% 100 ml @ 84 mls/hr IVPB DAILY [facility] Rx#:[id number] Fat Emulsion 20% 250 ml 21 21 In Empty Bag 1 bag @ 21 mls/hr IV Q24H JOANA Rx#: [id number] MVI 660 660 165 Piperacillin-Tazobactam 3 200 100 .375 gm In Sodium Chloride 0.9% 100 ml @ 25 mls/hr IVPB Q8HR [facility] Rx# :[id number] Sodium Chloride 0.9% 1, 240 20 40 000 ml @ 20 mls/hr IV . Q24H [facility]ANA Rx#:[id number] Intake, IV Titration 992.75 Amount Sodium Acetate 10 meq 992.75 Potassium Acetate 40 meq Magnesium Sulfate gm 0.75 gm Potassium Phosphate 10 mmol In Amino Acids 5 %/Dextrose 20 % 1,000 ml @ 55 mls/hr IV .BY DURATION JOANA Rx#: [id number] Output: Drainage 5250 Right Lower Lateral 5250 Abdomen Paracentesis site Urine 525 520 120 Other: Voiding Method Indwelling Catheter Indwelling Catheter ABP, PAP, CO, CI - Last Documented Arterial Blood Pressure 126/63 - Labs CBC & Chem 7: 03/22/20 05:02 03/22/20 05:02 Labs: Abnormal Lab Results - Last 24 Hours (Table) 03/21/20 03/21/20 03/22/20 Range/Units 17:59 23:08 04:55 WBC (3.8-10.6) k/uL RBC (4.30-5.90) m/uL Hgb (13.0-17.5) gm/dL Hct (39.0-53.0) % MCV (80.0-100.0) fL MCHC (31.0-37.0) g/dL RDW (11.5-15.5) % Neutrophils # (Manual) (1.3-7.7) k/uL Lymphocytes # (Manual) (1.0-4.8) k/uL ABG pO2 76 L (83-108) mmHg ABG Total CO2 25 H (19-24) mmol/L Chloride (98-107) mmol/L BUN (9-20) mg/dL Creatinine (0.66-1.25) mg/dL Glucose (74-99) mg/dL POC Glucose (mg/dL) 102 H 155 H (75-99) mg/dL Ionized Calcium Gabi (4.5-5.3) mg/dL 03/22/20 03/22/20 03/22/20 Range/Units 05:02 05:02 06:39 WBC 21.4 H (3.8-10.6) k/uL RBC 3.37 L (4.30-5.90) m/uL Hgb 10.2 L (13.0-17.5) gm/dL Hct 34.1 L (39.0-53.0) % MCV 101.3 H (80.0-100.0) fL MCHC 29.9 L (31.0-37.0) g/dL RDW 17.1 H (11.5-15.5) % Neutrophils # (Manual) 20.50 H (1.3-7.7) k/uL Lymphocytes # (Manual) 0.21 L (1.0-4.8) k/uL ABG pO2 (83-108) mmHg ABG Total CO2 (19-24) mmol/L Chloride 118 H (98-107) mmol/L BUN 21 H (9-20) mg/dL Creatinine 0.45 L (0.66-1.25) mg/dL Glucose 161 H (74-99) mg/dL POC Glucose (mg/dL) 161 H (75-99) mg/dL Ionized Calcium Gabi 5.8 H (4.5-5.3) mg/dL 03/22/20 Range/Units 11:32 WBC (3.8-10.6) k/uL RBC (4.30-5.90) m/uL Hgb (13.0-17.5) gm/dL Hct (39.0-53.0) % MCV (80.0-100.0) fL MCHC (31.0-37.0) g/dL RDW (11.5-15.5) % Neutrophils # (Manual) (1.3-7.7) k/uL Lymphocytes # (Manual) (1.0-4.8) k/uL ABG pO2 (83-108) mmHg ABG Total CO2 (19-24) mmol/L Chloride (98-107) mmol/L BUN (9-20) mg/dL Creatinine (0.66-1.25) mg/dL Glucose (74-99) mg/dL POC Glucose (mg/dL) 152 H (75-99) mg/dL Ionized Calcium Gabi (4.5-5.3) mg/dL Microbiology - Last 24 Hours (Table) 03/19/20 19:40 Gram Stain - Final Sputum Sputum Culture - Final Klebsiella pneumoniae 03/19/20 10:28 Gram Stain - Final Neck Wound Culture - Final Klebsiella pneumoniae Assessment and Plan (1) Diverticulitis Current Visit: Yes Status: Acute Code(s): K57.92 - DVTRCLI OF INTEST, PART UNSP, W/O PERF OR ABSCESS W/O BLEED SNOMED Code(s): 001468115 (2) Ascites Current Visit: Yes Status: Acute Code(s): R18.8 - OTHER ASCITES SNOMED Code(s): 155182009 (3) Alcoholism Current Visit: Yes Status: Acute Code(s): F10.20 - ALCOHOL DEPENDENCE, UNCOMPLICATED SNOMED Code(s): 4961384 (4) Delirium tremens Current Visit: Yes Status: Acute Code(s): F10.231 - ALCOHOL DEPENDENCE WITH WITHDRAWAL DELIRIUM SNOMED Code(s): 2861208 (5) Cardiac arrest Current Visit: Yes Status: Acute Code(s): I46.9 - CARDIAC ARREST, CAUSE UNSPECIFIED SNOMED Code(s): 995937908 (6) Klebsiella pneumonia Current Visit: Yes Status: Acute Code(s): J15.0 - PNEUMONIA DUE TO KLEBSIELLA PNEUMONIAE SNOMED Code(s): 39863155 (7) Pulmonary embolism Current Visit: Yes Status: Acute Code(s): I26.99 - OTHER PULMONARY EMBOLISM WITHOUT ACUTE COR PULMONALE SNOMED Code(s): 32730074
[2020-03-22 18:00] LABS: Glucose,Whole Blood 150 mg/dL (75-99)
[2020-03-22 18:15] LABS: Glucose,Whole Blood 136 mg/dL (75-99)
[2020-03-22] MEDS: SODIUM CHLORIDE 0.9% 1,000 ML IV SCH (19:03)
[2020-03-22] MEDS: TAMSULOSIN 0.4 MG CAP.ER.24H PO SCH (19:45)
[2020-03-22] MEDS: ATORVASTATIN 20 MG TAB OG-TUBE SCH (19:45)
--- NOTE | 2020-03-22 22:06 | PN ---
PROGRESS NOTE DATE OF SERVICE: 03/22/2020 REASON FOR FOLLOWUP: Pneumonia, oropharyngeal candidiasis. INTERVAL HISTORY: Patient is currently afebrile. The patient is hemodynamically stable. The patient's FIO2 is currently 40%. No significant purulent secretions thru the ET or any diarrhea reported per the nursing staff. The patient himself unable to provide any history. EXAMINATION: Blood pressure 105/79, pulse of 90, temperature 98. He is 95% on 40% FiO2. General description is a middle-aged male lying in bed in no distress. Respiratory system: Unlabored breathing with decreased breath sounds in the bases. No wheeze. Heart S1, S2. Regular rate and rhythm. Abdomen is soft, no guarding. No rigidity. LABS: Hemoglobin is 7, white count 21.4, creatinine 0.45. DIAGNOSTIC IMPRESSION AND PLAN: Patient with a component of aspiration pneumonia. Sputum has been Klebsiella in this patient also with possible pharyngeal candidiasis, covered with Zosyn and Eraxis with possible plan for hospice may be appropriate. Antibiotic can be discontinued and continue supportive care. MMODL / IJN: [id number] /
--- NOTE | 2020-03-22 23:18 | P.PN ---
Subjective Progress Note Date: 03/22/20 Principal diagnosis: -Acute bleeding from the tracheostomy and also aspirated from the G-tube. 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 Repeat paracentesis. 4.5 L.-repeat paracentesis is 4.4 L.. Repeat par acentesis 4 L removed-repeat paracentesis 5 L removed -Mild hyponatremia-corrected -Hypernatremia-corrected -Macrocytic anemia. -Acute DVT in the left distal popliteal vein-anticoagulation discontinued because of bleeding. -Acute alcohol withdrawal syndrome with improvement -Right lower lobe pneumonia -Mild protein calorie malnutrition from decreased oral intake -Tracheostomy tube placed on March 06 -Metabolic encephalopathy-no improvement -Dobbhoff tube placed and removed -TPN and lipids -IVC filter placed-March [address] Bailey -Acute bleeding from the tracheostomy and also aspirated from the G-tube. 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 Repeat paracentesis. 4.5 L.-repeat paracentesis is 4.4 L.. Repeat paracentesis 4 L removed-repeat paracentesis 5 L removed -Mild hyponatremia-corrected -Hypernatremia-corrected -Macrocytic anemia. -Acute DVT in the left distal popliteal vein-anticoagulation discontinued because of bleeding. -Acute alcohol withdrawal syndrome with improvement -Right lower lobe pneumonia -Mild protein calorie malnutrition from decreased oral intake -Tracheostomy tube placed on March 06 -Metabolic encephalopathy-no improvement -Dobbhoff tube placed and removed -TPN and lipids -IVC filter placed-March [address] Bailey Objective - Vital Signs Vital signs: Vital Signs Temp 97.9 F 03/22/20 20:00 Pulse 98 03/22/20 20:00 Resp 16 03/22/20 20:00 BP 112/79 03/22/20 20:00 Pulse Ox 98 03/22/20 20:00 Intake & Output 03/22/20 03/22/20 03/23/20 06:59 18:59 06:59 Intake Total 701 1380 130 Output Total 520 385 355 Balance 181 995 -225 Weight 59.5 kg Intake: IV 701 1380 130 Anidulafungin 100 mg In 100 Sodium Chloride 0.9% 100 ml @ 84 mls/hr IVPB DAILY [facility] Rx#:[id number] Fat Emulsion 20% 250 ml 21 In Empty Bag 1 bag @ 21 mls/hr IV Q24H [facility] Rx#: [id number] MVI 660 660 110 Magnesium Sulfate-D5w Pmx 200 1 gm In Dextrose/Water 1 100ml.bag @ 100 mls/hr IVPB Q1H [facility] Rx#: [id number] Piperacillin-Tazobactam 3 200 .375 gm In Sodium Chloride 0.9% 100 ml @ 25 mls/hr IVPB Q8HR [facility] Rx# :[id number] Sodium Chloride 0.9% 1, 20 220 20 000 ml @ 20 mls/hr IV . Q24H [facility] Rx#:[id number] Output: Gastric Drainage 250 Urine 520 385 105 Other: Voiding Method Indwelling Catheter Indwelling Catheter Indwelling Catheter ABP, PAP, CO, CI - Last Documented Arterial Blood Pressure 126/63 - Exam 03/22/2020, patient remains sedated with full ventilator support, remains on TPN, status post a paracentesis 5 L of fluid has been removed, pulmonary has been following and adjusting her respirator, This is a pleasant 64-year-old patient of . Patient been having complication to his diverticulitis. computed tomography scan on January 08. Showed some possible stricture. Hepatic steatosis. February 06- undergone low anterior resection. Epidural for pain control.patient had elevated d-dimer. Pulmonary embolism felt to be unlikely. CT was suboptimal. VQ scan was intermediate probability. Leg DVT treated with IV heparin. Had some dark stools.also patient had had altered mental status. [place] to be encephalopathy.computed tomography scan of the brain was unremarkable. EGD-no evidence of bleeding. Patient more awake after dose of baclofen cutback. changed over to xarelto.x-ray showing ileus. Patient did start having bowel movements. Repeat computed tomography scan of the abdomen showed possible enteritis./Colitis.as abdomen appeared distended. Lemus catheter was placed. No urine retention.-patient become hypotensive. Had a brief cardiac and pulmonary arrest Moved to ICU. Had to be intubated. Drips include norepinephrine, vasopressin, propofol. NG tube to suction.also treated for aspiration pneumonia and abdominal wall cellulitis.ascitic fluid that was tapped was unremarkable.4.5 L of acetic fluid removed. On March 06 underwent tracheostomy.Dophoff tube was placed and then had to be removed because of abdominal distention. Patient felt to have recurrent aspiration. March 20- [place] filter placed. Because of significant bleeding from the tracheostomy site. - Labs CBC & Chem 7: 03/22/20 05:02 03/22/20 05:02 Labs: Abnormal Lab Results - Last 24 Hours (Table) 03/22/20 03/22/20 03/22/20 Range/Units 04:55 05:02 05:02 WBC 21.4 H (3.8-10.6) k/uL RBC 3.37 L (4.30-5.90) m/uL Hgb 10.2 L (13.0-17.5) gm/dL Hct 34.1 L (39.0-53.0) % MCV 101.3 H (80.0-100.0) fL MCHC 29.9 L (31.0-37.0) g/dL RDW 17.1 H (11.5-15.5) % Neutrophils # (Manual) 20.50 H (1.3-7.7) k/uL Lymphocytes # (Manual) 0.21 L (1.0-4.8) k/uL ABG pO2 76 L (83-108) mmHg ABG Total CO2 25 H (19-24) mmol/L Chloride 118 H (98-107) mmol/L BUN 21 H (9-20) mg/dL Creatinine 0.45 L (0.66-1.25) mg/dL Glucose 161 H (74-99) mg/dL POC Glucose (mg/dL) (75-99) mg/dL Ionized Calcium Gabi 5.8 H (4.5-5.3) mg/dL 03/22/20 03/22/20 03/22/20 Range/Units 06:39 11:32 17:29 WBC (3.8-10.6) k/uL RBC (4.30-5.90) m/uL Hgb (13.0-17.5) gm/dL Hct (39.0-53.0) % MCV (80.0-100.0) fL MCHC (31.0-37.0) g/dL RDW (11.5-15.5) % Neutrophils # (Manual) (1.3-7.7) k/uL Lymphocytes # (Manual) (1.0-4.8) k/uL ABG pO2 (83-108) mmHg ABG Total CO2 (19-24) mmol/L Chloride (98-107) mmol/L BUN (9-20) mg/dL Creatinine (0.66-1.25) mg/dL Glucose (74-99) mg/dL POC Glucose (mg/dL) 161 H 152 H 150 H (75-99) mg/dL Ionized Calcium Gabi (4.5-5.3) mg/dL 03/22/20 Range/Units 18:04 WBC (3.8-10.6) k/uL RBC (4.30-5.90) m/uL Hgb (13.0-17.5) gm/dL Hct (39.0-53.0) % MCV (80.0-100.0) fL MCHC (31.0-37.0) g/dL RDW (11.5-15.5) % Neutrophils # (Manual) (1.3-7.7) k/uL Lymphocytes # (Manual) (1.0-4.8) k/uL ABG pO2 (83-108) mmHg ABG Total CO2 (19-24) mmol/L Chloride (98-107) mmol/L BUN (9-20) mg/dL Creatinine (0.66-1.25) mg/dL Glucose (74-99) mg/dL POC Glucose (mg/dL) 136 H (75-99) mg/dL Ionized Calcium Gabi (4.5-5.3) mg/dL Microbiology - Last 24 Hours (Table) 03/19/20 19:40 Gram Stain - Final Sputum Sputum Culture - Final Klebsiella pneumoniae Assessment and Plan Assessment: -Acute bleeding from the tracheostomy and also aspirated from the G-tube. 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 Repeat paracentesis. 4.5 L.-repeat paracentesis is 4.4 L.. Repeat paracentesis 4 L removed-repeat paracentesis 5 L removed -Mild hyponatremia-corrected -Hypernatremia-corrected -Macrocytic anemia. -Acute DVT in the left distal popliteal vein-anticoagulation discontinued because of bleeding. -Acute alcohol withdrawal syndrome with improvement -Right lower lobe pneumonia -Mild protein calorie malnutrition from decreased oral intake -Tracheostomy tube placed on March 06 -Metabolic encephalopathy-no improvement -Dobbhoff tube placed and removed -TPN and lipids -IVC filter placed-March [address] Bailey Plan: Continue broad-spectrum antibiotics along with TPN, overall long-term prognosis remains poor, and discussions on today for possible comfort care 24-48 hours Time with Patient: Greater than 30
[2020-03-23] MEDS: IPRATROPIUM-ALBUTEROL 3 ML NEB INHALATION SCH ×6 (00:44→20:01)
[2020-03-23 01:03] LABS: Glucose,Whole Blood 149 mg/dL (75-99)
[2020-03-23] MEDS: PIPERACILLIN-TAZOBACTAM 3.375 GM in SODIUM CHLORIDE 0.9% 100 ML IVPB SCH ×3 (01:05→16:40)
[2020-03-23] MEDS: INSULIN ASPART (NovoLOG) 100 UNIT/ML VIAL SQ SCH ×4 (01:05→18:06)
[2020-03-23 04:09] LABS: African American GFR (CKD) >90 (>60 ml/min/1.73 sqM); Anion Gap 0 mmol/L; Blood Urea Nitrogen 21 mg/dL (9-20); Calcium 8.3 mg/dL (8.4-10.2); Carbon Dioxide 26 mmol/L (22-30); Chloride 117 mmol/L (98-107); Glucose 117 mg/dL (74-99); Magnesium 2.2 mg/dL (1.6-2.3); Non-African American GFR(CKD) >90 (>60 ml/min/1.73 sqM); Phosphorus 3.6 mg/dL (2.5-4.5); Potassium 4.8 mmol/L (3.5-5.1); Sodium 143 mmol/L (137-145)
[2020-03-23 04:24] LABS: Anisocytosis Slight; Basophils % (A) 0 %; Eosinophils # (A) 0.1 k/uL (0-0.7); Eosinophils % (A) 0 %; HCT 29.8 % (39.0-53.0); Hypochromasia Marked; Lymphocytes # (A) 0.8 k/uL (1.0-4.8); Lymphocytes % (A) 4 %; MCH 29.8 pg (25.0-35.0); MCV 99.2 fL (80.0-100.0); Macrocytosis Slight; Monocytes # (A) 0.7 k/uL (0-1.0); Monocytes % (A) 4 %; Neutrophils # (A) 17.2 k/uL (1.3-7.7); Neutrophils % (A) 90 %; Platelet Count 211 k/uL (150-450); Poikilocytosis Slight; WBC 19.1 k/uL (3.8-10.6)
[2020-03-23] MEDS: 1: MVI, ADULT NO.4 WITH VIT K 10 ML, TRACE (CONC-1ML/DOSE) 1 ML, SODIUM ACETATE 10 MEQ, IV SCH ×7 (08:59)
[2020-03-23] MEDS: FERROUS SULFATE ORAL ELIXIR 300 MG/5 ML CUP PO SCH ×2 (08:59→16:41)
[2020-03-23] MEDS: ANIDULAFUNGIN 100 MG in SODIUM CHLORIDE 0.9% 100 ML IVPB SCH (09:00)
[2020-03-23] MEDS: FOLIC ACID 1 MG TAB OG-TUBE SCH (09:00)
[2020-03-23] MEDS: PANTOPRAZOLE 40 MG/10 ML VIAL IVP SCH ×2 (09:00→21:18)
[2020-03-23] MEDS: HYDROCORTISONE SUCCINATE 100 MG/2 ML VIAL IV SCH ×2 (09:00→21:18)
[2020-03-23] MEDS: THIAMINE 100 MG/ML 2 ML VIAL IVP SCH (09:01)
[2020-03-23 11:41] LABS: Glucose,Whole Blood 131 mg/dL (75-99)
--- NOTE | 2020-03-23 15:23 | P.PN ---
Subjective Progress Note Date: 03/23/20 Principal diagnosis: Acute hypoxic respiratory failure, massive ascites, liver cirrhosis, possible abdominal sepsis. This is a 64-year-old white male patient status post low anterior resection for strictures and diverticular disease, and this is postoperative day #6. Following his surgery on February 08 patient had a thrombus discomfort within the distal popliteal vein in his left leg, on the liver night patient had a CT angiogram of the chest which was a suboptimal study and did not reveal any large saddle all of central pulmonary emboli. The computed tomography scan showed evidence of small bilateral pleural effusions and multifocal groundglass opacities that could relate to pulmonary edema and/or pneumonia. His chest x- ray from February 11 showed bilateral infiltrates that could be consistent with pneumonia or heart failure. VQ scan showed indeterminate probability for pulmonary embolism. Patient has been confused, apparently he does have history of chronic EtOH, but it has been 60 since his admission, he remains very confused, he is on 3 L of oxygen and the pulse ox of 95%, he was started on heparin infusion for DVT in his left leg. We did not think there was a pulmonary embolism based on his workup. His brain CT showed no acute intracranial abnormality. In addition there is a possibility of GI bleeding as the patient has been passing some dark stools. Is not appear to be in any respiratory distress, he remains lethargic, confused. Neurology is following, EEGs in progress. Dr. Araujo is planning on EGD tomorrow for evaluation of black stools. On 02/14/2020 patient seen in follow-up on general medical surgical floor his heparin drip is off, his 0.9 normal saline running at 75 ML per hour, appears to be more awake on today's exam, although still confused, she is only oriented to percent, no agitation. No signs of respiratory difficulty, he is on 3 L of oxygen pulse ox is 95%, hemodynamically stable, his abdomen is slightly tender postsurgery, his incision covered with dressing, his been afebrile, breathing is nonlabored, lung sounds reveal a few basilar crackles, no rhonchi or wheezing. Surgery is planned and on EGD today, neurology is following, EEG revealed background slowing of moderate degree suggestive of generalized cerebral dysfunction related to toxic metabolic encephalopathy. Today's hemoglobin is 8.6, had one bowel movement this morning. On 02/15/2020 patient seen in follow-up on general medical surgical floor, patient had EGD done yesterday which did not reveal any active bleeding, patient was restarted on heparin infusion for evidence of DVT in his lower extremity, no worsening dyspnea, patient is still on and off lethargic, but appears to be in no acute distress. He is on 3 L of oxygen pulse ox of 95%, his been afebrile, completed chest pain. No hemoptysis. Today's hemoglobin is 9.0. On 02/26/2020 we were reconsulted in view of significant clinical deterioration last night, rapid response team was called, alva gama was activated at 0243 in the morning on 02/26/2020. Apparently patient was having ongoing abdominal pain for the past few days prior to the event, he was believed to have ileus. His abdominal CT of abdomen and pelvis was done on 02/19/2020 showing postoperative changes in the sigmoid colon, proximal to this level there was abnormal thickening of the right colon, some thickened small bowel loops were also present, no is no evidence of free air, there was evidence of increased amount of ascites. There was interval development of bilateral pleural effusions and associated atelectasis. Past few days patient also developed a low urine output urology also consulted on the case for difficult Lemus insertion and possible urinary retention. Yesterday on 02/25/2020 ultrasound abdomen showed moderate ascites in the right flank. His abdomen continued to be more distended and painful, patient was eating some oral intake, however his blood pressures were running on the lower side, his urine output continued to be low, there was paracentesis planned a possibility of ascites. Last night patient developed hypothermia, and hypotension. Patient became unresponsive, and there was no palpable pulse. CPR was started and immediately patient became responsive, CPR was stopped, patient was emergently intubated placed on mechanical ventilator and transferred to the intensive care unit. ID service has been following, patient's antibiotic coverage includes daptomycin. This morning he seen in the intensive care unit, sedated, intubated, on assist-control mode of ventilation, with a rate of 16, tidal planning is 500, FiO2 of 50%, and PEEP of 5. This was blood gases showed pO2 of 88, pCO2 of 29, and pH is 7.34. Patient is hypotensive, he is requiring levo fed at 0.43 mics per kilo per minute over 25 mics per minute, Diprivan and is at 40 mics per kilo per minute, patient has received fluid resuscitation, yesterday she had received 2 L of fluid from the surgical team earlier in the day, and he received additional 2 L bolus after his cardiac pulmonary arrest early this morning, his maintenance IV fluids are currently infusing at a rate of 75 ML per hour. Patient kidney to be hypotensive, we gave him an additional liter fluid bolus today, and she will be started on a vasopressin infusion for refractory hypotension. Blood cultures have been sent, pending at this time. Prior blood cultures and sputum culture. Patient's abdomen remains very tense, distended, firm, with the area of redness and discoloration, and induration near the mid abdominal surgical incision. Patient has a lot of generalized swelling, he is weeping from the catheter insertion sites. He had right femoral central line catheter placed by Dr. Jarrell at the bedside and a right radial art line placed for close hemodynamic monitoring. This morning's lab work has been reviewed showing squamous cell count of 21.8, hemoglobin of 8.9, sodium of 137, potassium is 4.1, chloride is 119, CO2 is 10, BUN is 10 and creatinine 0.64, patient was given 2 A of sodium bicarbonate. Reevaluated today on 02/27/20, patient is in the ICU, intubated and mechanically ventilated, his assist-control rate is 16 volume is 500 FiO2 is still on the percent, PEEP is 5. ABG today showed a pO2 of 104 pCO2 of 29 pH of 7.34 hence recommended that the patient gets the PEEP up to 8, and I cut down his FiO2 to 80%. Patient remains on norepinephrine at 46 mcg/m, he is also on bicarb drip, vasopressin was added today at 0.03, propofol is at 50 mcg/kg/m. Patient also remains on fluconazole and on daptomycin, his abdominal paracentesis was not therapeutic, it was mostly diagnostic, and so far the fluid does not seem to be diagnostic. Continues to have slight leakage from the site of his paracentesis, and the patient put out almost 3 L out in 24 hours from the same site where the paracentesis was done. Patient developed bilateral pleural effusions, however the ultrasound did not show enough fluid to perform a thoracentesis safely. Hence will hold on thoracentesis. Poor quality ultrasound pictures noted, cannot trust to perform safe thoracentesis on this patient. Hence we will hold, patient had repeat paracentesis by interventional radiology, and over 4.7 L of fluids were removed from the peritoneal cavity, and that will definitely improved the pleural effusions which are mostly related to his ascites. Reevaluated today on 02/28/20, patient remains intubated and mechanically ventilated, his ventilator settings are assist control rate of 16 volume is 500 FiO2 is 35%, PEEP at 8. ABG showed a pO2 of 92 pCO2 of 33 pH of 7.38. Patient remains on propofol at 50 mcg/kg/m, he is on bicarb but I cut it down to 25 ML per hour drip. On norepinephrine at 0.8 mcg/kg/m, and vasopressin at 0.03 units per minutes. Patient is also on TPN. Urine output is ranging between 50-100 m L/h. Patient had a total of 4.7 L drained from his peritoneal cavity/paracentesis, and at least 3 L drip spontaneously from the site of the paracentesis into a collecting bag. Fluid so far is nondiagnostic, does not seem to be infected, it is basically transudate of fluid. Patient did receive yesterday albumin and Lasix, not a significant response was noted with the Lasix. But his urine output improved more so after the paracentesis, and I suspect that the patient may have had abdominal compartment syndrome improved with paracentesis. Patient remains on broad-spectrum antibiotics for pres umptive abdominal sepsis, WBC count is 24.2 hemoglobin is 9.2. Electrolytes are relatively normal. Chest x-ray showed small bilateral pleural effusions, improved compared to the chest x-ray, and I believe that's mostly because the patient had significant amount of fluid drained with the paracentesis done yesterday. Ultrasound of the liver yesterday showed liver length of 16.1, it was heterogeneous, and there was evidence of abdominal ascites in the right upper quadrant with right pleural effusion. Reevaluated today on 03/01/20, patient remains in the ICU, intubated and mechanically ventilated. His ventilator settings are assist control rate of 16 FiO2 is 35% tidal volume is 500 PEEP is 5. Patient remains on norepinephrine at 0.17 mcg/kg/m, he is also on propofol at 50 mcg/kg/m, TPN and 0.9 normal saline at 10 mL per hour. Chest x-ray continues to show by basilar atelectasis with s mall pleural effusions. ABG showed a pO2 of 88 pCO2 of 31 pH of 7.57, hence his rate was cut down to 12. And FiO2 was increased to 40%. WBC count is 13.6 hemoglobin is 8.3. Basic metabolic profile is normal except for low potassium of 3.1. Patient remains sedated, not quite ready for any weaning trials, however will try to assess mental status of possible off propofol. Patient was reevaluated today on 03/02/20, remains in the ICU, intubated and mechanically ventilated. Patient remains on assist control rate of 10 tidal volume is 500 FiO2 is 50% and PEEP of 5. ABG earlier before the rate changed to 10 showed a pO2 of 65 pCO2 of 33 pH of 7.61. Patient remains on norepinephrine at 0.09 mcg/kg/m, he is on propofol at 30 mcg/kg/m he is also on enteral feeding and 0.9 normal saline was added today at 100 mL per hour. Patient seems to be developing a picture of contraction metabolic alkalosis with slight respiratory alkalosis. Hence I have recommended hydrating the patient, discontinued Lasix, and recommended Diamox. He will receive Diamox at 250 mg IV push every 12 hours. Patient seems to have decent urine output, his ascites and bipedal edema seems to be improving. I believe the patient may be actually developing contraction alkalosis. I have discontinued his TPN, and kept him on enteral feeding. WBC count today is 12.2 hemoglobin is 9.1. Electrolytes are normal except for low potassium of 2.9 which is not unusual considering that his pH is 7.60. That is being corrected. And his bicarb is 33 today. Chest x-ray shows bilateral pleural effusions small, previous ultrasound showed not large enough to consider thoracentesis. Both improved significantly post paracentesis. Reevaluated today on 03/18/20, patient remains in the ICU, remains intubated and mechanically ventilated. The main issue on this patient today seems to be related to bleeding around the tracheostomy site. Hence his Lovenox has been placed on hold, patient is requiring even a unit of packed RBCs this morning for low hemoglobin in the range of 6.5. He is now on assist control rate of 10 tidal volume is 500 FiO2 is 60% and PEEP is 5. ABG this morning showed a pO2 of 75 pCO2 of 27 pH of 7.48. Patient is on TPN at 55 ML per hour, his IV fluid will be cut down from 75 mL per hour to 25 mL per hour. Remains on Eraxis and on Zosyn, and I have held his Lovenox because of the bleeding around the tracheostomy site and the patient is requiring a unit of packed RBCs this morning. WBC count today is 12.9 hemoglobin 6.5. PTT is normal PT is normal. Electrolytes showed elevated sodium of 145 potassium is low at 3.0 BUN is 22 creatinine is 0.53. Yesterday after evaluating the patient, I recommended a paracentesis, and this was done by interventional radiology. Patient had 5.7 L of straw-colored fluid removed from his peritoneal cavity. And this was done by ultrasound guidance. Next x-ray today showed progression of the left lung infiltrate, however I believe this is most likely related to aspiration of blood from the tracheostomy site bleeding. Reevaluated today on 03/19/20, patient remains intubated and mechanically ventilated. He is now on assist control rate of 10 tidal volume is 500 FiO2 is 50% and PEEP is 5. ABG showed a pO2 of 80 pCO2 of 34 pH of 7.40. Patient remains on TPN, he is in sinus rhythm, rate is about 100. Patient remains encephalopathic, opens eyes, but does not follow any instructions whatsoever. He has significant chocolate colored drainage around the tracheostomy site, for which I recommended culturing and adjust antibiotics accordingly. It is basically purulent mucus mixed with blood. In the meantime the patient remains on Zosyn, and I believe the patient seems to have almost absolute contraindication to anticoagulation, and considering the patient had DVT, we'll arrange for IVC filter placement by vascular surgery. WBC count today is 10.7 hemoglobin is 7.9. ABG showed a pO2 of 80 pCO2 of 34 pH of 7.40 and this is on 50% FiO2. Platelets are [id number] chest x-ray showed improvement in the left sided infiltrate. But not completely resolved Patient was reevaluated today on 03/20/20, remains intubated and mechanically ve ntilated. Patient remains encephalopathic. Does not follow any instructions, opens eyes only. Remains quite frail looking and ill-looking. Ventilator settings are assist control rate of 10 tidal volume is 500 FiO2 60% and PEEP of 5, his oxygenation seems to be marginal, hence I increased the PEEP up to 10 and FiO2 up to 100.. Patient has been on antibiotics and steroids, his abdomen is distended again, and may require paracentesis again and again. Considering his overall picture, we requested the to come in and discuss his overall condition. came in today, and I had a long discussion with the regarding his overall poor prognostic picture, and I believe the is going to consider seriously comfort care measures. Patient is doing poorly, and we have not made any significant improvement on this patient since admission. Not to mention the patient is encephalopathic, and his neurological status is extremely poor. Chest x-ray continues to show bilateral infiltrates. WBC count is 17 hemoglobin is 10. ABG today showed a pO2 of 69 pCO2 of 35 pH of 7.40. Renal profile is normal electrolytes are normal bicarb is 20. Ammonia level is 18 today Reevaluated today on 03/21/20, patient remains intubated and mechanically ventilated. Remains in the ICU, he is on assist control rate of 10 tidal volume is 500 FiO2 70% PEEP of 10 cut down his FiO2 to 60%, and I plan to taper down further. His ABG showed a pO2 of 65 pCO2 of 36 pH of 7.41. He is on TPN at 55 mL/h, he is also on 0.9 normal saline at O. His sputum and his fluid from the trach site is showing gram-negative bacilli, previously had Klebsiella pneumonia. The final identification from the recent culture is pending. In the meantime the patient remains on Zosyn. Electrolytes are relatively normal renal profile is normal calcium is 8.5, ionized calcium is 5.7, patient may undergo paracentesis again today. According to the nurse, family is still undecided whether to go with comfort care measures or eventual transfer patient to ECF I believe the patient will not be accepted in ECF as long as he is having recurrent episodes of ascites requiring paracentesis almost quite frequently. Every few days. Chest x-ray is showing stable bilateral airspace disease and bilateral pleural effusions. The effusions will likely improve once the patient undergoes paracentesis again today. Reevaluated today on 03/22/20, remains in the ICU, intubated and mechanically ventilated. Patient is on assist control rate of 10 tidal volume is 500 FiO2 is 40% PEEP cut down from 10-5. ABG showed a pO2 of 76 pCO2 of 40 0 pH of 7.39. On 03/21 patient had another paracentesis and 5 L of fluid were drained from his peritoneal cavity. Remains on TPN at 55 ML per hour, IV fluids at KVO, remains on Zosyn. Chest x-ray is showing improvement in his infiltrates and pleural effusions bilaterally significantly improved since his paracentesis. She count is 21.4 hemoglobin is 10.2. Sodium is 145 potassium 4.5 chloride 118 bicarb is 24 BUN is 21 and creatinine 0.45 Reevaluated today on 03/23/20, patient remains in the ICU, intubated and mechanically ventilated. No major events in the last 24 hours, neurological status is about the same, patient does not follow any instructions, opened eyes only. He is on assist control rate of 10 FiO2 is 40% tidal volume is 500 and PEEP is 5. Remains on TPN at 55 mL per hour, his IV fluid is at KVO. Chest x- ray, not done today. His last chest x-ray was reassuring showing improvement in his bilateral infiltrates. Labs showed elevated WBC count of 19.1 hemoglobin is 9 platelets are 211. Electrolytes are normal renal profile is normal, last sputum culture was still positive for Klebsiella pneumoniae and this was on 03/19/20, hence I continued Zosyn on this patient. Objective - Vital Signs Vital signs: Vital Signs Temp 98.8 F 03/23/20 08:00 Pulse 84 03/23/20 13:00 Resp 12 03/23/20 13:00 BP 114/79 03/23/20 13:00 Pulse Ox 97 03/23/20 13:00 Intake & Output 03/22/20 03/23/20 03/23/20 18:59 06:59 18:59 Intake Total 1380 680 735 Output Total 385 745 315 Balance 995 -65 420 Weight 61.6 kg Intake: IV 1380 680 735 Anidulafungin 100 mg In 100 130 Sodium Chloride 0.9% 100 ml @ 84 mls/hr IVPB DAILY [facility] Rx#:[id number] MVI 660 660 385 Magnesium Sulfate-D5w Pmx 200 1 gm In Dextrose/Water 1 100ml.bag @ 100 mls/hr IVPB Q1H [facility] Rx#: [id number] Piperacillin-Tazobactam 3 200 100 .375 gm In Sodium Chloride 0.9% 100 ml @ 25 mls/hr IVPB Q8HR [facility] Rx# :[id number] Sodium Chloride 0.9% 1, 220 20 120 000 ml @ 20 mls/hr IV . Q24H [facility] Rx#:[id number] Output: Gastric Drainage 250 Urine 385 495 315 Other: Voiding Method Indwelling Catheter Indwelling Catheter ABP, PAP, CO, CI - Last Documented Arterial Blood Pressure 126/63 - Exam GENERAL EXAM: Intubated sedated 64-year-old white male, on mechanical ventilation. HEAD: Normocephalic/atraumatic. ENT: PERRLA, EOMI, no icterus, tracheostomy is intact however, no drainage noted around the tracheostomy site. NECK: No masses, no JVD, no thyroid enlargement, no adenopathy. Midline tracheostomy in place, patient connected to the ventilator with assist control mode of ventilation CHEST: No chest wall deformity. Symmetrical expansion. LUNGS: Fine crackles at the bases. CVS: Regular rate and rhythm, normal S1 and S2, no gallops, no murmurs, no rubs ABDOMEN; distended again, and positive ascites. abdominal incision is clean dry and intact, well approximated and healed, yvonne are in place, intact, the surgical yvonne are still in place EXTREMITIES: No clubbing, 2+ bipedal edema, good pulses bilaterally MUSCULOSKELETAL: Significant motor weakness in all 4 extremities. The patient has diffuse anasarca and edema in all 4 extremities. SKIN: No rashes CENTRAL NERVOUS SYSTEM: Arousable, opens eyes, does not follow any instructions. Generally weak. - Labs CBC & Chem 7: 03/23/20 03:23 03/23/20 03:23 Labs: Abnormal Lab Results - Last 24 Hours (Table) 03/22/20 03/22/20 03/23/20 Range/Units 17:29 18:04 01:02 WBC (3.8-10.6) k/uL RBC (4.30-5.90) m/uL Hgb (13.0-17.5) gm/dL Hct (39.0-53.0) % MCHC (31.0-37.0) g/dL RDW (11.5-15.5) % Neutrophils # (1.3-7.7) k/uL Lymphocytes # (1.0-4.8) k/uL Chloride (98-107) mmol/L BUN (9-20) mg/dL Creatinine (0.66-1.25) mg/dL Glucose (74-99) mg/dL POC Glucose (mg/dL) 150 H 136 H 149 H (75-99) mg/dL Calcium (8.4-10.2) mg/dL 03/23/20 03/23/20 03/23/20 Range/Units 03:23 03:23 11:40 WBC 19.1 H (3.8-10.6) k/uL RBC 3.00 L (4.30-5.90) m/uL Hgb 9.0 L (13.0-17.5) gm/dL Hct 29.8 L (39.0-53.0) % MCHC 30.0 L (31.0-37.0) g/dL RDW 17.0 H (11.5-15.5) % Neutrophils # 17.2 H (1.3-7.7) k/uL Lymphocytes # 0.8 L (1.0-4.8) k/uL Chloride 117 H (98-107) mmol/L BUN 21 H (9-20) mg/dL Creatinine 0.42 L (0.66-1.25) mg/dL Glucose 117 H (74-99) mg/dL POC Glucose (mg/dL) 131 H (75-99) mg/dL Calcium 8.3 L (8.4-10.2) mg/dL Assessment and Plan Assessment: 1. Acute hypoxic respiratory failure secondary to aspiration pneumonia and bilateral pleural effusions related to his ascites. #2. Acute cardiac pulmonary arrest on 02/26/2020 related to septic shock, patient required a brief CPR, was intubated and fluid resuscitated, and she is currently off pressors and he is hemodynamicaly stable #3. Increased bibasilar opacities and a chest x-ray shows bilateral pleural effusions.this is consistent with aspiration pneumonia, and effusion secondary to ascites. #4. recurrent bowel obstruction. The patient has a high-grade bowel obstruction. Seems to have resolved. #5. Massive ascites, status post high-volume paracentesis, on 02/27/2020 with removal of 8 L of ascitic fluid, and repeat paracentesis on 2019 would removal of 6 L of fluid and then 4.5 liters on 03/09/2020, slight abdominal distention today's evaluation. There is some recurrence distention the abdomen and possibly some recurrent ascites. Last paracentesis was on 03/21, and 5.3 L of fluid were removed. #6. Non-anion gap metabolic acidosis related to septic shock, resolved. #7. hypotension secondary to above. Resolved. #8. Elevated d-dimer, nonspecific, doubt possibility of pulmonary embolism. However the patient does have positive DVT. Patient has basically absolute co ntraindication to anticoagulations, and I will recommend IVC filter placement. #9. Diverticulitis, status post lower anterior resection, takedown of splenic flexure and partial omentectomy #10. Alcohol abuse with alcohol withdrawal #11. Recent history dark black stools the possibility of upper GI bleeding, negative EGD #12. Altered mental status, related to metabolic encephalopathy, #13. History of diverticular disease #14 intermittent episodes of bleeding around the tracheostomy site,/resolved. After holding heparin. #15 status post IVC filter placement. Patient had absolute contraindication to anticoagulations. #16 suspect undergoing Klebsiella pneumoniae pneumonia. Repeat sputum cultures from 03/19/20, showed Klebsiella pneumoniae again. Sensitive to Zosyn and the patient remains on Zosyn Recommendation: Will give the patient a trial of weaning today with a pressure support of 14 and CPAP. Continue present supportive care measures. Continue TPN. Continue IV Zosyn Continue mechanical ventilation, however will try weaning with pressure support and CPAP were mechanical ventilation. Her support of 14. Continue hydrocortisone. Patient remains critically ill. is considering hospice. May consider placing the patient on trach collar, and hospice referral. In the meantime we'll continue to monitor in the ICU, Patient remains critically ill, and critical care time is over 30 minutes Time with Patient: Greater than 30
--- NOTE | 2020-03-23 16:26 | P.PN ---
Subjective Progress Note Date: 03/23/20 CHIEF COMPLAINT: Diverticulitis HISTORY OF PRESENT ILLNESS: The patient is a 64-year-old male with prolonged hospital course including sigmoid colectomy for diverticulitis, lower anterior resection, abdominal ascites, DVT, cardiac arrest, and now trach and PEG. Per discussion with nursing, patient's family is looking into hospice care at home. Otherwise his condition is unchanged. Patient is NO CODE. ROS: Recent pneumonia, cardiac arrest PHYSICAL EXAM: VITAL SIGNS: Reviewed CONSTITUTIONAL: Well developed and in no acute distress. EYES: Conjuctivae without sclera icterus. HEAD, EARS, NOSE, THROAT: Moist buccal mucosa. Head is atraumatic, normocephalic. Hears conversational speech. No nasal drainage. NECK: Supple. Trach site intact. RESPIRATORY: On full ventilatory support. CARDIOVASCULAR: Palpable 2+ radial pulses. ABDOMEN: Dressed and intact. Has ascites of the abdomen. MUSCULOSKELETAL: No gross deformity of the lower extremities noted. No clubbing. No cyanosis. SKIN: Good skin turgor. Well perfused. NEUROLOGIC: Deferred. On full ventilatory support. PSYCH: Deferred. On full ventilatory support. CLINICAL LABS: Reviewed. WBC elevated 17.0 to 21.4 down to 19.1. Hgb stable 10.0 to 10.2 down to 9.0 MICROBIOLOGY: Klebsiella from sputum ASSESSMENT: 1. Diverticulitis 2. Status post low anterior resection 3. Alcoholism 4. Ascites 5. Leukocytosis. 6. Abdominal wall cellulitis 7. Sepsis 8. Hypoxic respiratory failure 9. Pulmonary embolism PLAN: 1. Agree with hospice care. 2. Continue current management. Objective - Vital Signs Vital signs: Vital Signs Temp 97.1 F L 03/23/20 16:00 Pulse 93 03/23/20 16:00 Resp 16 03/23/20 16:00 BP 122/80 03/23/20 16:00 Pulse Ox 99 03/23/20 16:00 Intake & Output 03/22/20 03/23/20 03/23/20 18:59 06:59 18:59 Intake Total 1380 680 960 Output Total 385 745 405 Balance 995 -65 555 Weight 61.6 kg Intake: IV 1380 680 960 Anidulafungin 100 mg In 100 130 Sodium Chloride 0.9% 100 ml @ 84 mls/hr IVPB DAILY JO[facility] Rx#:[id number] MVI 660 660 550 Magnesium Sulfate-D5w Pmx 200 1 gm In Dextrose/Water 1 100ml.bag @ 100 mls/hr IVPB Q1H JOANA Rx#: [id number] Piperacillin-Tazobactam 3 200 100 .375 gm In Sodium Chloride 0.9% 100 ml @ 25 mls/hr IVPB Q8HR [facility] Rx# :[id number] Sodium Chloride 0.9% 1, 220 20 180 000 ml @ 20 mls/hr IV . Q24H JOANA Rx#:[id number] Output: Gastric Drainage 250 Urine 385 495 405 Other: Voiding Method Indwelling Catheter Indwelling Catheter ABP, PAP, CO, CI - Last Documented Arterial Blood Pressure 126/63 - Labs CBC & Chem 7: 03/23/20 03:23 03/23/20 03:23 Labs: Abnormal Lab Results - Last 24 Hours (Table) 03/22/20 03/22/20 03/23/20 Range/Units 17:29 18:04 01:02 WBC (3.8-10.6) k/uL RBC (4.30-5.90) m/uL Hgb (13.0-17.5) gm/dL Hct (39.0-53.0) % MCHC (31.0-37.0) g/dL RDW (11.5-15.5) % Neutrophils # (1.3-7.7) k/uL Lymphocytes # (1.0-4.8) k/uL Chloride (98-107) mmol/L BUN (9-20) mg/dL Creatinine (0.66-1.25) mg/dL Glucose (74-99) mg/dL POC Glucose (mg/dL) 150 H 136 H 149 H (75-99) mg/dL Calcium (8.4-10.2) mg/dL 03/23/20 03/23/20 03/23/20 Range/Units 03:23 03:23 11:40 WBC 19.1 H (3.8-10.6) k/uL RBC 3.00 L (4.30-5.90) m/uL Hgb 9.0 L (13.0-17.5) gm/dL Hct 29.8 L (39.0-53.0) % MCHC 30.0 L (31.0-37.0) g/dL RDW 17.0 H (11.5-15.5) % Neutrophils # 17.2 H (1.3-7.7) k/uL Lymphocytes # 0.8 L (1.0-4.8) k/uL Chloride 117 H (98-107) mmol/L BUN 21 H (9-20) mg/dL Creatinine 0.42 L (0.66-1.25) mg/dL Glucose 117 H (74-99) mg/dL POC Glucose (mg/dL) 131 H (75-99) mg/dL Calcium 8.3 L (8.4-10.2) mg/dL Assessment and Plan (1) Diverticulitis Current Visit: Yes Status: Acute Code(s): K57.92 - DVTRCLI OF INTEST, PART UNSP, W/O PERF OR ABSCESS W/O BLEED SNOMED Code(s): 905386615 (2) Ascites Current Visit: Yes Status: Acute Code(s): R18.8 - OTHER ASCITES SNOMED Code(s): 470486745 (3) Alcoholism Current Visit: Yes Status: Acute Code(s): F10.20 - ALCOHOL DEPENDENCE, UNCOMPLICATED SNOMED Code(s): 2936618 (4) Delirium tremens Current Visit: Yes Status: Acute Code(s): F10.231 - ALCOHOL DEPENDENCE WITH WITHDRAWAL DELIRIUM SNOMED Code(s): 4802375 (5) Cardiac arrest Current Visit: Yes Status: Acute Code(s): I46.9 - CARDIAC ARREST, CAUSE UNSPECIFIED SNOMED Code(s): 172557938 (6) Klebsiella pneumonia Current Visit: Yes Status: Acute Code(s): J15.0 - PNEUMONIA DUE TO KLEBSIELLA PNEUMONIAE SNOMED Code(s): 32852699 (7) Pulmonary embolism Current Visit: Yes Status: Acute Code(s): I26.99 - OTHER PULMONARY EMBOLISM WITHOUT ACUTE COR PULMONALE SNOMED Code(s): 41334691
[2020-03-23 17:32] LABS: Glucose,Whole Blood 132 mg/dL (75-99)
[2020-03-23] MEDS: SODIUM CHLORIDE 0.9% 1,000 ML IV SCH (18:06)
[2020-03-23] MEDS: ATORVASTATIN 20 MG TAB OG-TUBE SCH (21:11)
[2020-03-23] MEDS: TAMSULOSIN 0.4 MG CAP.ER.24H PO SCH (21:11)
--- NOTE | 2020-03-23 22:29 | P.PN ---
Subjective Progress Note Date: 03/23/20 Principal diagnosis: -Acute bleeding from the tracheostomy and also aspirated from the G-tube. 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 Repeat paracentesis. 4.5 L.-repeat paracentesis is 4.4 L.. Repeat par acentesis 4 L removed-repeat paracentesis 5 L removed -Mild hyponatremia-corrected -Hypernatremia-corrected -Macrocytic anemia. -Acute DVT in the left distal popliteal vein-anticoagulation discontinued because of bleeding. -Acute alcohol withdrawal syndrome with improvement -Right lower lobe pneumonia -Mild protein calorie malnutrition from decreased oral intake -Tracheostomy tube placed on March 06 -Metabolic encephalopathy-no improvement -Dobbhoff tube placed and removed -TPN and lipids -IVC filter placed-March [address] Bailey 03/23/2020, patient remains on ventilator support, family is considering comfort measures and hospice has been consulted pending further evaluation 03/22/2020, patient remains sedated with full ventilator support, remains on TPN, status post a paracentesis 5 L of fluid has been removed, pulmonary has been following and adjusting her respirator, This is a pleasant 64-year-old patient of . Patient been having complication to his diverticulitis. computed tomography scan on January 08. Showed some possible stricture. Hepatic steatosis. February 06- undergone low anterior resection. Epidural for pain control.patient had elevated d-dimer. Pulmonary embolism felt to be unlikely. CT was suboptimal. VQ scan was intermediate probability. Leg DVT treated with IV heparin. Had some dark stools.also patient had had altered mental status. [place] to be encephalopathy.computed tomography scan of the brain was unremarkable. EGD-no evidence of bleeding. Patient more awake after dose of baclofen cutback. changed over to xarelto.x-ray showing ileus. Patient did start having bowel movements. Repeat computed tomography scan of the abdomen showed possible enteritis./Colitis.as abdomen appeared distended. Lemus catheter was placed. No urine retention.-patient become hypotensive. Had a brief cardiac and pulmonary arrest Moved to ICU. Had to be intubated. Drips include norepinephrine, vasopressin, propofol. NG tube to suction.also treated for aspiration pneumonia and abdominal wall cellulitis.ascitic fluid that was tapped was unremarkable.4.5 L of acetic fluid removed. On March 06 underwent tracheostomy.Dophoff tube was placed and then had to be removed because of abdominal distention. Patient felt to have recurrent aspiration. March 20- [place] filter placed. Because of significant bleeding from the tracheostomy site. Objective - Vital Signs Vital signs: Vital Signs Temp 97.7 F 03/23/20 20:00 Pulse 85 03/23/20 21:00 Resp 13 03/23/20 21:00 BP 112/73 03/23/20 21:00 Pulse Ox 97 03/23/20 21:00 Intake & Output 03/23/20 03/23/20 03/24/20 06:59 18:59 06:59 Intake Total 680 1110 185 Output Total 745 1015 350 Balance -65 95 -165 Weight 61.6 kg Intake: IV 680 1110 185 Anidulafungin 100 mg In 130 Sodium Chloride 0.9% 100 ml @ 84 mls/hr IVPB DAILY [facility] Rx#:[id number] MVI 660 660 165 Piperacillin-Tazobactam 3 100 .375 gm In Sodium Chloride 0.9% 100 ml @ 25 mls/hr IVPB Q8HR [facility] Rx# :[id number] Sodium Chloride 0.9% 1, 20 220 20 000 ml @ 20 mls/hr IV . Q24H [facility] Rx#:[id number] Output: Gastric Drainage 250 550 200 Urine 495 465 150 Other: Voiding Method Indwelling Catheter Indwelling Catheter Indwelling Catheter ABP, PAP, CO, CI - Last Documented Arterial Blood Pressure 126/63 - Exam VITAL SIGNS: 98.9, 90, 14, 107/73, 96% on the ventilator GENERAL: Laying in bed, eyes open,. Tracheostomy tube, EYES: Pupils equal. Conjunctiva normal. HEENT:, Dry oral cavity, OG tube NECK: JVD unable to assess; masses not palpable. Tracheostomy tube HEART: First and second heart sounds are normal; edema LUNGS: Respiratory rate increased; decreased breath sounds. ABDOMEN: Soft, distended , nontender, , liver spleen not palpable. Lemus catheter PSYCH: Unable to assess - Labs CBC & Chem 7: 03/23/20 03:23 03/23/20 03:23 Labs: Abnormal Lab Results - Last 24 Hours (Table) 03/23/20 03/23/20 03/23/20 Range/Units 01:02 03:23 03:23 WBC 19.1 H (3.8-10.6) k/uL RBC 3.00 L (4.30-5.90) m/uL Hgb 9.0 L (13.0-17.5) gm/dL Hct 29.8 L (39.0-53.0) % MCHC 30.0 L (31.0-37.0) g/dL RDW 17.0 H (11.5-15.5) % Neutrophils # 17.2 H (1.3-7.7) k/uL Lymphocytes # 0.8 L (1.0-4.8) k/uL Chloride 117 H (98-107) mmol/L BUN 21 H (9-20) mg/dL Creatinine 0.42 L (0.66-1.25) mg/dL Glucose 117 H (74-99) mg/dL POC Glucose (mg/dL) 149 H (75-99) mg/dL Calcium 8.3 L (8.4-10.2) mg/dL 03/23/20 03/23/20 Range/Units 11:40 17:31 WBC (3.8-10.6) k/uL RBC (4.30-5.90) m/uL Hgb (13.0-17.5) gm/dL Hct (39.0-53.0) % MCHC (31.0-37.0) g/dL RDW (11.5-15.5) % Neutrophils # (1.3-7.7) k/uL Lymphocytes # (1.0-4.8) k/uL Chloride (98-107) mmol/L BUN (9-20) mg/dL Creatinine (0.66-1.25) mg/dL Glucose (74-99) mg/dL POC Glucose (mg/dL) 131 H 132 H (75-99) mg/dL Calcium (8.4-10.2) mg/dL Assessment and Plan Assessment: -Acute bleeding from the tracheostomy and also aspirated from the G-tube. 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 Repeat paracentesis. 4.5 L.-repeat paracentesis is 4.4 L.. Repeat paracentesis 4 L removed-repeat paracentesis 5 L removed -Mild hyponatremia-corrected -Hypernatremia-corrected -Macrocytic anemia. -Acute DVT in the left distal popliteal vein-anticoagulation discontinued because of bleeding. -Acute alcohol withdrawal syndrome with improvement -Right lower lobe pneumonia -Mild protein calorie malnutrition from decreased oral intake -Tracheostomy tube placed on March 06 -Metabolic encephalopathy-no improvement -Dobbhoff tube placed and removed -TPN and lipids -IVC filter placed-March [address] Bailey Plan: Continue broad-spectrum antibiotics along with TPN, overall long-term prognosis remains poor, and discussions on today for possible comfort care, hospice has been consulted Time with Patient: Greater than 30
--- NOTE | 2020-03-24 00:24 | PN ---
PROGRESS NOTE DATE OF SERVICE: 03/23/2020 REASON FOR FOLLOWUP: Pneumonia and oropharyngeal candidiasis. INTERVAL HISTORY: The patient remains to be afebrile. The patient is hemodynamically stable, not on pressor support. FiO2 is currently 40%. No significant purulent secretion through ET or diarrhea reported. The patient is unable to report any history. PHYSICAL EXAMINATION: Blood pressure 119/76, pulse of 89, temperature of 97.7. He is 98% on 40% FiO2. General description is a middle-aged male lying in bed in no distress. RESPIRATORY SYSTEM: Unlabored breathing, decreased intensity of breath sounds. No wheeze HEART: S1, S2. Regular rate and rhythm. ABDOMEN: Soft, no tenderness. LABS: Hemoglobin 9, white count 19.1, BUN of 21, creatinine 0.42. DIAGNOSTIC IMPRESSION AND PLAN: Patient with elevated white count multifactorial in this patient who had component of aspiration pneumonia plus minus oropharyngeal candidiasis, the patient covered with Eraxis and Zosyn. For possible hospice care may be appropriate. Continue supportive care. MMODL / IJN: [id number] /
[2020-03-24] MEDS: INSULIN ASPART (NovoLOG) 100 UNIT/ML VIAL SQ SCH ×4 (00:52→17:36)
[2020-03-24 00:53] LABS: Glucose,Whole Blood 119 mg/dL (75-99)
[2020-03-24] MEDS: PIPERACILLIN-TAZOBACTAM 3.375 GM in SODIUM CHLORIDE 0.9% 100 ML IVPB SCH ×3 (01:07→16:12)
[2020-03-24] MEDS: 1: MVI, ADULT NO.4 WITH VIT K 10 ML, TRACE (CONC-1ML/DOSE) 1 ML, SODIUM ACETATE 10 MEQ, IV SCH ×14 (01:12→17:04)
[2020-03-24] MEDS: IPRATROPIUM-ALBUTEROL 3 ML NEB INHALATION SCH ×7 (01:19→23:53)
[2020-03-24 04:18] LABS: Anisocytosis Slight; Basophils % (A) 0 %; Eosinophils % (A) 0 %; HCT 28.1 % (39.0-53.0); HGB 8.9 gm/dL (13.0-17.5); Hypochromasia Marked; Lymphocytes # (A) 0.8 k/uL (1.0-4.8); Lymphocytes % (A) 5 %; MCH 31.2 pg (25.0-35.0); MCHC 31.5 g/dL (31.0-37.0); MCV 99.1 fL (80.0-100.0); Macrocytosis Slight; Mean Platelet Volume 11.3; Monocytes # (A) 0.7 k/uL (0-1.0); Monocytes % (A) 5 %; Neutrophils # (A) 13.6 k/uL (1.3-7.7); Neutrophils % (A) 89 %; Platelet Count 221 k/uL (150-450); RBC 2.84 m/uL (4.30-5.90); WBC 15.3 k/uL (3.8-10.6)
[2020-03-24 04:33] LABS: African American GFR (CKD) >90 (>60 ml/min/1.73 sqM); Anion Gap 2 mmol/L; Blood Urea Nitrogen 22 mg/dL (9-20); Calcium 8.1 mg/dL (8.4-10.2); Carbon Dioxide 25 mmol/L (22-30); Chloride 116 mmol/L (98-107); Glucose 159 mg/dL (74-99); Magnesium 2.1 mg/dL (1.6-2.3); Non-African American GFR(CKD) >90 (>60 ml/min/1.73 sqM); Phosphorus 4.1 mg/dL (2.5-4.5); Potassium 4.5 mmol/L (3.5-5.1); Sodium 143 mmol/L (137-145)
[2020-03-24 06:25] LABS: Glucose,Whole Blood 149 mg/dL (75-99)
[2020-03-24] MEDS: FERROUS SULFATE ORAL ELIXIR 300 MG/5 ML CUP PO SCH ×2 (08:30→17:12)
[2020-03-24] MEDS: PANTOPRAZOLE 40 MG/10 ML VIAL IVP SCH ×2 (08:45→21:04)
[2020-03-24] MEDS: HYDROCORTISONE SUCCINATE 100 MG/2 ML VIAL IV SCH ×2 (08:49→21:04)
[2020-03-24] MEDS: THIAMINE 100 MG/ML 2 ML VIAL IVP SCH (08:51)
[2020-03-24] MEDS: FOLIC ACID 1 MG TAB OG-TUBE SCH (08:53)
[2020-03-24] MEDS: ANIDULAFUNGIN 100 MG in SODIUM CHLORIDE 0.9% 100 ML IVPB SCH (09:45)
--- NOTE | 2020-03-24 10:53 | P.PN ---
Subjective Progress Note Date: 03/24/20 Principal diagnosis: Intermediate probability VQ scan, rule out possibility of pulmonary embolism This is a 64-year-old white male patient status post low anterior resection for strictures and diverticular disease, and this is postoperative day #6. Following his surgery on February 08 patient had a thrombus discomfort within the distal popliteal vein in his left leg, on the liver night patient had a CT angiogram of the chest which was a suboptimal study and did not reveal any large saddle all of central pulmonary emboli. The computed tomography scan showed evidence of small bilateral pleural effusions and multifocal groundglass opacities that could relate to pulmonary edema and/or pneumonia. His chest x- ray from February 11 showed bilateral infiltrates that could be consistent with pneumonia or heart failure. VQ scan showed indeterminate probability for pulmonary embolism. Patient has been confused, apparently he does have history of chronic EtOH, but it has been 60 since his admission, he remains very confused, he is on 3 L of oxygen and the pulse ox of 95%, he was started on heparin infusion for DVT in his left leg. We did not think there was a pulmonar y embolism based on his workup. His brain CT showed no acute intracranial abnormality. In addition there is a possibility of GI bleeding as the patient has been passing some dark stools. Is not appear to be in any respiratory distress, he remains lethargic, confused. Neurology is following, EEGs in progress. Dr. Araujo is planning on EGD tomorrow for evaluation of black stools. On 02/14/2020 patient seen in follow-up on general medical surgical floor his heparin drip is off, his 0.9 normal saline running at 75 ML per hour, appears to be more awake on today's exam, although still confused, she is only oriented to percent, no agitation. No signs of respiratory difficulty, he is on 3 L of oxygen pulse ox is 95%, hemodynamically stable, his abdomen is slightly tender postsurgery, his incision covered with dressing, his been afebrile, breathing is nonlabored, lung sounds reveal a few basilar crackles, no rhonchi or wheezing. Surgery is planned and on EGD today, neurology is following, EEG revealed background slowing of moderate degree suggestive of generalized cerebral dysfunction related to toxic metabolic encephalopathy. Today's hemoglobin is 8.6, had one bowel movement this morning. On 02/15/2020 patient seen in follow-up on general medical surgical floor, patient had EGD done yesterday which did not reveal any active bleeding, patient was restarted on heparin infusion for evidence of DVT in his lower extremity, no worsening dyspnea, patient is still on and off lethargic, but appears to be in no acute distress. He is on 3 L of oxygen pulse ox of 95%, his been afebrile, completed chest pain. No hemoptysis. Today's hemoglobin is 9.0. On 02/25/2020 we were reconsulted in view of significant clinical deterioration last night, rapid response team was called, alva gama was activated at 0243 in the morning on 02/26/2020. Apparently patient was having ongoing abdominal pain for the past few days prior to the event, he was believed to have ileus. His abdominal CT of abdomen and pelvis was done on 02/19/2020 showing postoperative changes in the sigmoid colon, proximal to this level there was abnormal thickening of the right colon, some thickened small bowel loops were also present, no is no evidence of free air, there was evidence of increased amount of ascites. There was interval development of bilateral pleural effusions and associated atelectasis. Past few days patient also developed a low urine output urology also consulted on the case for difficult Lemus insertion and possible urinary retention. Yesterday on 02/25/2020 ultrasound abdomen showed moderate ascites in the right flank. His abdomen continued to be more distended and painful, patient was eating some oral intake, however his blood pressures were running on the lower side, his urine output continued to be low, there was paracentesis planned a possibility of ascites. Last night patient developed hypothermia, and hypotension. Patient became unresponsive, and there was no pal pable pulse. CPR was started and immediately patient became responsive, CPR was stopped, patient was emergently intubated placed on mechanical ventilator and transferred to the intensive care unit. ID service has been following, patient's antibiotic coverage includes daptomycin. This morning he seen in the intensive care unit, sedated, intubated, on assist-control mode of ventilation, with a rate of 16, tidal planning is 500, FiO2 of 50%, and PEEP of 5. This was blood gases showed pO2 of 88, pCO2 of 29, and pH is 7.34. Patient is hypotensive, he is requiring levo fed at 0.43 mics per kilo per minute over 25 mics per minute, Diprivan and is at 40 mics per kilo per minute, patient has rec eived fluid resuscitation, yesterday she had received 2 L of fluid from the surgical team earlier in the day, and he received additional 2 L bolus after his cardiac pulmonary arrest early this morning, his maintenance IV fluids are currently infusing at a rate of 75 ML per hour. Patient kidney to be hypotensive, we gave him an additional liter fluid bolus today, and she will be started on a vasopressin infusion for refractory hypotension. Blood cultures have been sent, pending at this time. Prior blood cultures and sputum culture. Patient's abdomen remains very tense, distended, firm, with the area of redness and discoloration, and induration near the mid abdominal surgical incision. Avinash srinivasan has a lot of generalized swelling, he is weeping from the catheter insertion sites. He had right femoral central line catheter placed by Dr. Jarrell at the bedside and a right radial art line placed for close hemodynamic monitoring. This morning's lab work has been reviewed showing squamous cell count of 21.8, hemoglobin of 8.9, sodium of 137, potassium is 4.1, chloride is 119, CO2 is 10, BUN is 10 and creatinine 0.64, patient was given 2 A of sodium bicarbonate. On 03/03/2020 patient seen in follow-up in the intensive care unit, he remains intubated, and sedated, on assist-control mode of ventilation, with a rate of 10, tidal lung is 500, FiO2 of 50% and PEEP of 5, this morning blood gases revealed pO2 of 116, pCO2 37, and pH of 7.51. His current IVs include 0.9 normal seen at a rate of 10 ML per hour, levothyroid is a 6 mics per minute, propofol is currently off, and patient is receiving nutritional support with vital AF 1.2 at a rate of 10 ML per hour. Today's chest x-ray shows stable diffuse interstitial pattern with bilateral infiltrates and pleural effusion that are stable in appearance. His labs have been reviewed showing with blood cell count of 13.8, hemoglobin of 8.9, sodium 144, potassium is 3.6, chloride is 113, and the rest of electrolytes and renal profile were unremarkable. Patient is passing some liquid green stools, abdomen is nontender, mid abdominal incision is clean dry and intact, he has been tolerating tube feedings. Patient is on antibiotics including daptomycin, Diflucan, and Zosyn On 03/04/2020 patient seen in follow-up in the intensive care unit, his been off all sedation for 48 hours, he remains very minimally responsive, she opens his eyes slightly to painful stimuli, still very drowsy, encephalopathic, remains on ventilator support, current vent settings are assist control mode of ventilation with a rate of 10, tidal legs 500, FiO2 of 40% and PEEP of 5, and dyspneic blood gases showed pO2 of 102, pCO2 34 and pH of 7.49. Patient is currently on 0.9 normal saline at rate of 100 ML per hour, levo fed is at 10 mics per minute, no other drips, vital AF for nutritional support at 17 with a goal 17. Has not been able to wean off the vasopressors, patient remains on Solu-Cortef Cortef at 50 mg every 12 hours, we'll adjust the dose to 26 hours. Patient is tolerating tube feedings, he is passing liquid bowel movements, fecal management system was inserted, is on antibiotics in the form of Zosyn and daptomycin. he has been afebrile, no new growth on his cultures. Abdomen is much less distended, is soft, his mid abdominal incision is clean dry and intact, yvonne are intact, Lemus catheter is in place patient is producing 15-35 ML per hour. Chest x-ray showing basilar atelectasis, probable left pleural effusion, and there is some improvement in aeration of the right lung base. Remains on on anticoagulation in the form of Lovenox 60 mg twice daily. In sinus mechanism on the monitor. Patient has significant amount of generalized edema in his upper and lower extremities, and truncal edema. On 2019 patient seen in follow-up in the intensive care unit, she remains intubated, she still very lethargic, his Diprivan and has been on hold for last 72 hours, current vent settings are assist-control with a rate of 10, tidal volume is 500, FiO2 40%, and PEEP of 5. Patient had pressure-support trials , she was placed on assist-control mode overnight. No acute events overnight, currently down to 3.5 mics per minute on the levo fed infusion, 0.9 normal saline at 100 ML per hour, remains on the nutritional support with vital AF at a rate of 17 with a goal a 17, tolerating tube feedings well, he is passing liquid stools, fecal management system is in place, in sinus mechanism, his been afebrile, remains on antibiotics . Blood culture, ascites fluid cultures have been negative, sputum was only positive for Pita, patient is covered with Zosyn, daptomycin and Diflucan. Abdomen is soft, nontender, demonstrates incisions clean dry and intact, yvonne are intact. Patient has significant generalized edema, but has been requiring vasopressor support. Renal function is within normal limits, today's labs have been reviewed, sodium is 145, potassium is 3.3, chloride is 118, BUN 17 creatinine 0.7 On 03/06/2020 patient remains lethargic, he withdraws to painful stimuli, his Diprivan has been on hold for last 4 days, he is not given any narcotics or sedatives, per nursing staff at times she opens eyes to voice, and is able to weakly squeeze hands on command, appears to be no acute distress, remains on assist control mode of ventilation with a rate of 10, tidal and is 500, FiO2 of 40% and PEEP of 5, this point his blood gases show pO2 117, pCO2 34, and pH of 7.45, FiO2 is down to 35%, his creatinine 0.9 normal seen at a rate of 40 more per hour, levo fed is at 3 mics per minute. 2 feedings are on hold for tracheostomy and PEG tube placement today, yesterday he had paracentesis at the bedside with removal of 6 L of straw-colored ascitic fluid. Brain CT was com pleted showing cerebral atrophy, no acute intracranial abnormality. No change from most prior CT of the brain from 03/04/2020. Today's labs have been reviewed showing white blood cell count of 16.4, hemoglobin of 8.8, sodium 146, potassium 3.5, chloride is 122, CO2 24, B1 17 creatinine 0.71. he is afebrile. No new growth on the cultures, remains on empiric antibiotics, daptomycin, Zosyn. On 03/07/2020 patient seen in follow-up in the intensive care unit. Yesterday he had his tracheostomy placed, this morning she remains on assist-control mode of ventilation with a rate of 10, tidal legs 500, FiO2 of 35% and PEEP of 5, this morning blood gases reveal pO2 of 99%, pCO2 31, and pH of 7.44. He remains quite encephalopathic, sleepy, withdraws from painful stimuli but he is unable to follow commands, he has a severe generalized weakness and swelling, he is unable to squeeze hands on command. Currently on 0.9 normal seen at a rate of 50 ML per hour, levo fed is at 0.06 mics per kilo per minute, no other drips, his tube feedings are on hold, yesterday PEG tube could not be placed related to abdominal wall edema, may have to place a Dobbhoff tube for tube feedings. Last night NG tube placement attempts were unsuccessful. Lung sounds are clear, diminished at the bases, his abdomen is soft, slightly tender, abdominal incision is clean dry and intact, yvonne are intact. Patient is status post large volume paracentesis the day before yesterday would removal of 6 L of ascitic fluid. Antibiotics in the form of daptomycin, fluconazole, and Zosyn. Patient has been afebrile, no new growth on the cultures. And is producing liquid stool, fecal management system is in place. On 03/17/2020 patient seen in follow-up in the intensive care unit, he remains encephalopathic, however he seems to be a bit more responsive to touch, and voice, he remains trached to the ventilator, on assist control mode of ventilation with a rate of 10, tidal volume is 500, FiO2 of 40% and PEEP of 9. His blood gas this morning revealed pO2 of 96, pCO2 of 30, and pH of 7.38 this was done and FiO2 of 40%. She remains on small dose of levo fed at 0.03 mics per kilo per minute, he has some IV fluids infusing in rate is 75 ML per hour. No other drips, remains on Zosyn for antibiotic coverage, in addition to your axis, his sputum culture was positive for Klebsiella pneumonia, and Pita albicans, blood cultures have been negative, he is some ascites fluid has shown no growth, he remains on TPN, his NG tube remains to low intermittent suction, she was still having increased gastric drainage and for that reason patient's tube feedings have been on hold, his abdomen becoming increasingly more distended, and today we will request for interventional radiology to proceed with the ultrasound-guided paracentesis. Patient remains very generally swallowing, with increased edema in his trunk, and upper and lower extremities, today's labs have been reviewed, showing left tonsil, 17.6, hemoglobin of 8.2, his platelet count was 185, sodium is 142, potassium 3.8, chloride was 121, CO2 was 18, BUN is 26 and creatinine 0.68. His chest x-ray today showed stable bilateral lower lobe infiltrate and small effusion. On 03/24/2020 patient seen in follow-up in the intensive care unit, is drowsy, but arousable, she remains on assist control mode of ventilation with a rate of 10, tidal legs 500, FiO2 of 40% and PEEP of 5, no blood gases today. Yesterday patient tolerated several hours of pressure control trials with pressure control of 5 and CPAP of 5. Was switched back to assist control mode of ventilation overnight. Vital signs are stable, sinus mechanism, slightly tachycardic on the monitor, IV 0.9 at 10 ML per hour, and TPN at 55 ML per hour, no vasoactive drips. Chest x-ray today, last chest x-ray was done on 03/22/2020, showing stable diffuse pleural parenchymal changes correlating to CHF. Today's labs have been reviewed showing white blood cell count of 15.3, hemoglobin of 8.9, sodium is 143, potassium is 4.5, chloride is 116, B1 is 22, creatinine 0.55. Patient remains on antibiotics in the form of Zosyn, and Eraxis evidence of Klebsiella pneumonia in the sputum, and tracheostomy insertion site. ID service is following, patient remains profoundly weak, his been requiring recurrent paracentesis. His has been at the bedside, and his been in communication with Dr. Jarrell on the regular basis. Patient CODE STATUS is DO NOT RESUSCITATE. She decided to go with hospice and take the patient home on oxygen. Hospice was consulted last night however has not been into see the patient yet, they're expected to come in today and evaluate the patient and make necessary arrangements for possible transition home. Objective - Vital Signs Vital signs: Vital Signs Temp 97.9 F 03/24/20 08:00 Pulse 106 H 03/24/20 10:00 Resp 12 03/24/20 10:33 BP 96/71 03/24/20 10:00 Pulse Ox 97 03/24/20 10:33 Intake & Output 12/20/20 12/21/20 12/21/20 18:59 06:59 18:59 Intake Total 1110 680 450 Output Total 1015 635 150 Balance 95 45 300 Weight 61.6 kg 60.1 kg Intake: IV 1110 680 450 Anidulafungin 100 mg In 130 100 Sodium Chloride 0.9% 100 ml @ 84 mls/hr IVPB DAILY JOANA Rx#:[id number] MVI 660 660 220 Piperacillin-Tazobactam 3 100 100 .375 gm In Sodium Chloride 0.9% 100 ml @ 25 mls/hr IVPB Q8HR JOANA Rx# :[id number] Sodium Chloride 0.9% 1, 220 20 30 000 ml @ 20 mls/hr IV . Q24H JOANA Rx#:[id number] Output: Gastric Drainage 550 200 Urine 465 435 150 Other: Voiding Method Indwelling Catheter Indwelling Catheter ABP, PAP, CO, CI - Last Documented Arterial Blood Pressure 126/63 - Exam GENERAL EXAM: Sedated, but slightly more arousable on today's exam, remains encephalopathic, 64-year-old white male, trached to the mechanical ventilator on assist-control mode of ventilation, in no acute distress HEAD: Normocephalic/atraumatic. EYES: Normal reaction of pupils, equal size. Conjunctiva pink, sclera white. NOSE: Clear with pink turbinates. THROAT: No erythema or exudates. NECK: No masses, no JVD, no thyroid enlargement, no adenopathy. Midline tracheostomy in place, patient connected to the ventilator with assist control mode of ventilation CHEST: No chest wall deformity. Symmetrical expansion. LUNGS: Equal air entry with no crackles, wheeze, rhonchi or dullness. CVS: Regular rate and rhythm, normal S1 and S2, no gallops, no murmurs, no rubs ABDOMEN: Less distended and firm on today's exam compared to last week, mild tenderness to palpation, rigidity, and abdominal incision is clean dry and intact, well approximated and healed, yvonne are in place, intact EXTREMITIES: No clubbing, 2+ upper and lower extremity edema, patient has a weeping edema with the drainage from the catheter insertion sites no cyanosis, 2+ pulses and upper and lower extremities. MUSCULOSKELETAL: Muscle strength and tone normal. SPINE: No scoliosis or deformity SKIN: No rashes CENTRAL NERVOUS SYSTEM: Unable to assess, patient is very drowsy, encephalopathic, he is trached to the ventilator. No focal deficits, tone is normal in all 4 extremities. - Labs CBC & Chem 7: 03/24/20 03:58 03/24/20 03:58 Labs: Abnormal Lab Results - Last 24 Hours (Table) 03/23/20 03/23/20 03/24/20 Range/Units 11:40 17:31 00:52 WBC (3.8-10.6) k/uL RBC (4.30-5.90) m/uL Hgb (13.0-17.5) gm/dL Hct (39.0-53.0) % RDW (11.5-15.5) % Neutrophils # (1.3-7.7) k/uL Lymphocytes # (1.0-4.8) k/uL Chloride (98-107) mmol/L BUN (9-20) mg/dL Creatinine (0.66-1.25) mg/dL Glucose (74-99) mg/dL POC Glucose (mg/dL) 131 H 132 H 119 H (75-99) mg/dL Calcium (8.4-10.2) mg/dL 03/24/20 03/24/20 03/24/20 Range/Units 03:58 03:58 06:23 WBC 15.3 H (3.8-10.6) k/uL RBC 2.84 L (4.30-5.90) m/uL Hgb 8.9 L (13.0-17.5) gm/dL Hct 28.1 L (39.0-53.0) % RDW 17.0 H (11.5-15.5) % Neutrophils # 13.6 H (1.3-7.7) k/uL Lymphocytes # 0.8 L (1.0-4.8) k/uL Chloride 116 H (98-107) mmol/L BUN 22 H (9-20) mg/dL Creatinine 0.55 L (0.66-1.25) mg/dL Glucose 159 H (74-99) mg/dL POC Glucose (mg/dL) 149 H (75-99) mg/dL Calcium 8.1 L (8.4-10.2) mg/dL Assessment and Plan Plan: Assessment: #1. Acute hypoxic respiratory failure related to aspiration pneumonia and bilateral pleural effusions related to the ascites On 03/07/2020 patient remains trached to the mechanical ventilator on assist control mode of ventilation. Patient had a tracheostomy on 03/06/2020 #2. Acute cardiac pulmonary arrest on 02/26/2020 related to septic shock, patient required a brief CPR, was emergently intubated and fluid resuscitated, requiring high dose of vasopressors including norepinephrine and vasopressin. Currently off all vasopressors #3. Increased bibasilar opacities and new small bilateral pleural effusions on the chest x-ray, related to fluid overload #4. Abdominal pain and distention, related to recurrent bowel obstruction, resolved, #5. Massive ascites, status post high-volume paracentesis, on 02/27/2020 with removal of 8 L of ascitic fluid, and repeat paracentesis on would removal of 6 L of fluid. Last paracentesis was on 03/21/2020 would removal of 5.3 L of ascitic fluid. #6. Non-anion gap metabolic acidosis related to septic shock, and has received IV fluids and bicarbonate infusion, resolved #7. Volume contraction alkalosis, secondary to paracentesis and diuretic therapy, resolved #8. Elevated d-dimer, nonspecific, doubt possibility of pulmonary embolism. CTA chest was suboptimal but did not reveal any evidence of central pulmonary embolism, VQ scan showed intermediate probability for pulmonary embolism, patient was found to have a new left leg DVT, was on Eliquis, she was discontinued in view of bleeding around the tracheostomy site. Patient had a IVC filter placed. #9. Diverticulitis, status post lower anterior resection, takedown of splenic flexure and partial omentectomy #10. Alcohol abuse with alcohol withdrawal #11. Recent history dark black stools the possibility of upper GI bleeding #12. Altered mental status, related to metabolic encephalopathy, neurology is following. On 03/07/2020 patient has been off Diprivan for the last 4 days, and he remains encephalopathic, sleepy, and unable to follow commands, withdraws from pain #13. History of diverticular disease #14. History of EtOH abuse #15. Suspect Klebsiella pneumonia pneumonia. Repeat sputum cultures from 03/19/2020 showed Klebsiella pneumonia again. Sensitive to Zosyn and patient remains on Zosyn #16. Severe generalized weakness related to critical illness polyneuropathy Plan: Continue current medical treatment, we will place the patient on pressure- support 5 and CPAP of 5 again today, she gets tired may placed back on assist co ntrol mode of ventilation, his CODE STATUS is DO NOT RESUSCITATE, hospice was consulted last night and they're expected to see the patient today and make necessary arrangements after speaking with the family for possible transition home, however that may not be possible in view of the amount of care that the patient is requiring at this time. Will defer to hospice to make those arrangements. For now continue supportive treatment, continue nutritional support, continue antibiotics. I performed a history & physical examination of the patient and discussed their management with my nurse practitioner, Felipa Matute. I reviewed the nurse practitioner's note and agree with the documented findings and plan of care. Lung sounds are positive for clear breath sounds throughout the lung arias. The findings and the impression was discussed with the patient. I attest to the documentation by the nurse practitioner. Time with Patient: Greater than 30
--- NOTE | 2020-03-24 12:04 | P.PN ---
Subjective Progress Note Date: 03/24/20 Principal diagnosis: -Acute bleeding from the tracheostomy and also aspirated from the G-tube. 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 Repeat paracentesis. 4.5 L.-repeat paracentesis is 4.4 L.. Repeat par acentesis 4 L removed-repeat paracentesis 5 L removed -Mild hyponatremia-corrected -Hypernatremia-corrected -Macrocytic anemia. -Acute DVT in the left distal popliteal vein-anticoagulation discontinued because of bleeding. -Acute alcohol withdrawal syndrome with improvement -Right lower lobe pneumonia -Mild protein calorie malnutrition from decreased oral intake -Tracheostomy tube placed on March 06 -Metabolic encephalopathy-no improvement -Dobbhoff tube placed and removed -TPN and lipids -IVC filter placed-March [address] Bailey 03/24/2020, patient seen eval examined during the rounds labs reviewed medications reviewed, sequence of events per intensive care note, patient is being considered for hospice by family 03/23/2020, patient remains on ventilator support, family is considering comfort measures and hospice has been consulted pending further evaluation 03/22/2020, patient remains sedated with full ventilator support, remains on TPN, status post a paracentesis 5 L of fluid has been removed, pulmonary has been following and adjusting her respirator, This is a pleasant 64-year-old patient of . Patient been having complication to his diverticulitis. computed tomography scan on January 08. Showed some possible stricture. Hepatic steatosis. February 06- undergone low anterior resection. Epidural for pain control.patient had elevated d-dimer. Pulmonary embolism felt to be unlikely. CT was suboptimal. VQ scan was intermediate probability. Leg DVT treated with IV heparin. Had some dark stools.also patient had had altered mental status. Sarona to be encephalopathy.computed tomography scan of the brain was unremarkable. EGD-no evidence of bleeding. Patient more awake after dose of baclofen cutback. changed over to xarelto.x-ray showing ileus. Patient did start having bowel movements. Repeat computed tomography scan of the abdomen showed possible enteritis./Colitis.as abdomen appeared distended. Lemus catheter was placed. No urine retention.-patient become hypotensive. Had a brief cardiac and pulmonary arrest Moved to ICU. Had to be intubated. Drips include norepinephrine, vasopressin, propofol. NG tube to suction.also treated for aspiration pneumonia and abdominal wall cellulitis.ascitic fluid that was tapped was unremarkable.4.5 L of acetic fluid removed. On March 06 underwent tracheostomy.Dophoff tube was placed and then had to be removed because of abdominal distention. Patient felt to have recurrent aspiration. March 20- Downey filter placed. Because of significant bleeding from the tracheostomy site. Objective - Vital Signs Vital signs: Vital Signs Temp 97.9 F 03/24/20 08:00 Pulse 111 H 03/24/20 11:00 Resp 17 03/24/20 11:38 BP 107/74 03/24/20 11:00 Pulse Ox 96 03/24/20 11:00 Intake & Output 03/23/20 03/24/20 03/24/20 18:59 06:59 18:59 Intake Total 1110 680 515 Output Total 5852 439 7247 Balance 95 45 -655 Weight 61.6 kg 60.1 kg Intake: IV 1110 680 515 Anidulafungin 100 mg In 130 100 Sodium Chloride 0.9% 100 ml @ 84 mls/hr IVPB DAILY [facility] Rx#:[id number] MVI 660 660 275 Piperacillin-Tazobactam 3 100 100 .375 gm In Sodium Chloride 0.9% 100 ml @ 25 mls/hr IVPB Q8HR [facility] Rx# :[id number] Sodium Chloride 0.9% 1, 220 20 40 000 ml @ 20 mls/hr IV . Q24H JOANA Rx#:[id number] Output: Gastric Drainage 354 659 2461 Urine 465 435 170 Other: Voiding Method Indwelling Catheter Indwelling Catheter Indwelling Catheter ABP, PAP, CO, CI - Last Documented Arterial Blood Pressure 126/63 - Exam VITAL SIGNS: 98.9, 90, 14, 107/73, 96% on the ventilator GENERAL: Laying in bed, eyes open,. Tracheostomy tube, EYES: Pupils equal. Conjunctiva normal. HEENT:, Dry oral cavity, OG tube NECK: JVD unable to assess; masses not palpable. Tracheostomy tube HEART: First and second heart sounds are normal; edema LUNGS: Respiratory rate increased; decreased breath sounds. ABDOMEN: Soft, distended , nontender, , liver spleen not palpable. Lemus catheter PSYCH: Unable to assess - Labs CBC & Chem 7: 03/24/20 03:58 03/24/20 03:58 Labs: Abnormal Lab Results - Last 24 Hours (Table) 03/23/20 03/24/20 03/24/20 Range/Units 17:31 00:52 03:58 WBC (3.8-10.6) k/uL RBC (4.30-5.90) m/uL Hgb (13.0-17.5) gm/dL Hct (39.0-53.0) % RDW (11.5-15.5) % Neutrophils # (1.3-7.7) k/uL Lymphocytes # (1.0-4.8) k/uL Chloride 116 H (98-107) mmol/L BUN 22 H (9-20) mg/dL Creatinine 0.55 L (0.66-1.25) mg/dL Glucose 159 H (74-99) mg/dL POC Glucose (mg/dL) 132 H 119 H (75-99) mg/dL Calcium 8.1 L (8.4-10.2) mg/dL 03/24/20 03/24/20 Range/Units 03:58 06:23 WBC 15.3 H (3.8-10.6) k/uL RBC 2.84 L (4.30-5.90) m/uL Hgb 8.9 L (13.0-17.5) gm/dL Hct 28.1 L (39.0-53.0) % RDW 17.0 H (11.5-15.5) % Neutrophils # 13.6 H (1.3-7.7) k/uL Lymphocytes # 0.8 L (1.0-4.8) k/uL Chloride (98-107) mmol/L BUN (9-20) mg/dL Creatinine (0.66-1.25) mg/dL Glucose (74-99) mg/dL POC Glucose (mg/dL) 149 H (75-99) mg/dL Calcium (8.4-10.2) mg/dL Assessment and Plan Assessment: -Acute bleeding from the tracheostomy and also aspirated from the G-tube. 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 Repeat paracentesis. 4.5 L.-repeat paracentesis is 4.4 L.. Repeat paracentesis 4 L removed-repeat paracentesis 5 L removed -Mild hyponatremia-corrected -Hypernatremia-corrected -Macrocytic anemia. -Acute DVT in the left distal popliteal vein-anticoagulation discontinued because of bleeding. -Acute alcohol withdrawal syndrome with improvement -Right lower lobe pneumonia -Mild protein calorie malnutrition from decreased oral intake -Tracheostomy tube placed on March 06 -Metabolic encephalopathy-no improvement -Dobbhoff tube placed and removed -TPN and lipids -IVC filter placed-March [address] Bailey Plan: Continue broad-spectrum antibiotics along with TPN, overall long-term prognosis remains poor, and discussions on today for possible comfort care, hospice has been consulted Time with Patient: Greater than 30
[2020-03-24 12:25] LABS: Glucose,Whole Blood 160 mg/dL (75-99)
--- NOTE | 2020-03-24 12:42 | P.PN ---
Subjective Progress Note Date: 03/24/20 CHIEF COMPLAINT: Diverticulitis HISTORY OF PRESENT ILLNESS: Patient is status post lower anterior resection, takedown of splenic flexure and partial omentectomy on 02/07/2020. The morning of 02/26/20 patient was transferred to the ICU after STEVE KUMAR was called. Patient had become hypothermic and hypotensive. Patient become unresponsive they lost pulse and CPR was initiated. Patient did require to be intubated. Patient remains in the ICU. He is on AC mode mechanical ventilation. Patient is on TPN for nutrition support. Patient is awake but remains very weak. CODE STATUS is a DO NOT RESUSCITATE. Hospice was consulted last night. Awaiting hospice evaluation. Afebrile. WBC 15.3 PHYSICAL EXAM: VITAL SIGNS: Reviewed. GENERAL: Well-developed in no acute distress. HEENT: No sclera icterus. Extraocular movements grossly intact. Moist buccal mucosa. Head is atraumatic, normocephalic. ABDOMEN: distended Incision clean dry and intact. NEUROLOGIC: Patient is awake and able to open eyes. ASSESSMENT: 1. Cardiopulmonary arrest and acute hypoxic respiratory failure secondary to septic shock. 2. Diverticulitis status post lower anterior resection, takedown of splenic fle xure and partial omentectomy on 02/07/2020 3. Patient's abdominal distention likely related to ileus, ascites from his liver cirrhosis and possible hernia. 4. Alcohol abuse with alcohol withdrawal 5. New left leg DVT during this admission. Unable to tolerate anticoagulation. He is now status post IVC filter placement 6. ileus 7. Black stools. Resolved. No evidence of upper GI bleed on EGD. EGD was normal 8. Altered mental status likely due to cardiac arrest and superimposed toxic m etabolic encephalopathy. Followed by neurology 9. Possible aspiration pneumonia 10. Severe protein calorie malnutrition 11. Liver cirrhosis with abdominal ascites status post multiple paracentesis during this admission 12. 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 Signing provider agrees with the documented findings, assessment, and plan of care. Objective - Vital Signs Vital signs: Vital Signs Temp 98 F 03/24/20 12:00 Pulse 100 03/24/20 12:03 Resp 16 03/24/20 12:00 BP 110/85 03/24/20 12:00 Pulse Ox 98 03/24/20 12:00 Intake & Output 03/23/20 03/24/20 03/24/20 18:59 06:59 18:59 Intake Total 1110 680 580 Output Total 6874 325 7511 Balance 95 45 -610 Weight 61.6 kg 60.1 kg Intake: IV 1110 680 580 Anidulafungin 100 mg In 130 100 Sodium Chloride 0.9% 100 ml @ 84 mls/hr IVPB DAILY [facility] Rx#:[id number] MVI 660 660 330 Piperacillin-Tazobactam 3 100 100 .375 gm In Sodium Chloride 0.9% 100 ml @ 25 mls/hr IVPB Q8HR [facility] Rx# :[id number] Sodium Chloride 0.9% 1, 220 20 50 000 ml @ 20 mls/hr IV . Q24H [facility] Rx#:[id number] Output: Gastric Drainage 026 231 3758 Urine 465 435 190 Other: Voiding Method Indwelling Catheter Indwelling Catheter Indwelling Catheter ABP, PAP, CO, CI - Last Documented Arterial Blood Pressure 126/63 - Labs CBC & Chem 7: 03/24/20 03:58 03/24/20 03:58 Labs: Abnormal Lab Results - Last 24 Hours (Table) 03/23/20 03/24/20 03/24/20 Range/Units 17:31 00:52 03:58 WBC (3.8-10.6) k/uL RBC (4.30-5.90) m/uL Hgb (13.0-17.5) gm/dL Hct (39.0-53.0) % RDW (11.5-15.5) % Neutrophils # (1.3-7.7) k/uL Lymphocytes # (1.0-4.8) k/uL Chloride 116 H (98-107) mmol/L BUN 22 H (9-20) mg/dL Creatinine 0.55 L (0.66-1.25) mg/dL Glucose 159 H (74-99) mg/dL POC Glucose (mg/dL) 132 H 119 H (75-99) mg/dL Calcium 8.1 L (8.4-10.2) mg/dL 12/21/20 12/21/20 12/21/20 Range/Units 03:58 06:23 12:23 WBC 15.3 H (3.8-10.6) k/uL RBC 2.84 L (4.30-5.90) m/uL Hgb 8.9 L (13.0-17.5) gm/dL Hct 28.1 L (39.0-53.0) % RDW 17.0 H (11.5-15.5) % Neutrophils # 13.6 H (1.3-7.7) k/uL Lymphocytes # 0.8 L (1.0-4.8) k/uL Chloride (98-107) mmol/L BUN (9-20) mg/dL Creatinine (0.66-1.25) mg/dL Glucose (74-99) mg/dL POC Glucose (mg/dL) 149 H 160 H (75-99) mg/dL Calcium (8.4-10.2) mg/dL
[2020-03-24] MEDS: SODIUM CHLORIDE 0.9% 1,000 ML IV SCH (17:11)
[2020-03-24] MEDS: FAT EMULSION 20% 250 ML in EMPTY BAG 1 BAG IV SCH (17:13)
[2020-03-24 17:36] LABS: Glucose,Whole Blood 127 mg/dL (75-99)
[2020-03-24] MEDS: ATORVASTATIN 20 MG TAB OG-TUBE SCH (21:04)
[2020-03-24] MEDS: TAMSULOSIN 0.4 MG CAP.ER.24H PO SCH (21:04)
--- NOTE | 2020-03-24 22:44 | PN ---
PROGRESS NOTE DATE OF SERVICE: 03/24/2020 REASON FOR FOLLOWUP: Aspiration pneumonia and oropharyngeal candidiasis. INTERVAL HISTORY: The patient is currently afebrile. The patient is hemodynamically stable. He has been taken off the vent and is on a trach collar. Patient seems to be slightly more awake and trying to communicate. No vomiting or diarrhea has been reported. PHYSICAL EXAMINATION: Blood pressure is 102/70 with a pulse of 95, temperature 98. He is 95% on trach collar. General description is a middle-aged male lying in bed in no distress. RESPIRATORY SYSTEM: Unlabored breathing with decreased intensity of breath sounds. No wheeze. HEART: S1, S2. Regular rate and rhythm. ABDOMEN: Soft. No tenderness. LABS: Hemoglobin 8.9, white count 15.3, BUN of 22, creatinine 0.55. DIAGNOSTIC IMPRESSION AND PLAN: Patient with elevated white count, multifactorial in this patient who did have a component of aspiration pneumonia plus/minus oropharyngeal candidiasis, currently being treated with Eraxis and Zosyn; to continue, and monitor his clinical course closely. MMODL / IJN: [id number] /
[2020-03-25 00:13] LABS: Glucose,Whole Blood 138 mg/dL (75-99)
[2020-03-25] MEDS: PIPERACILLIN-TAZOBACTAM 3.375 GM in SODIUM CHLORIDE 0.9% 100 ML IVPB SCH ×3 (00:28→17:19)
[2020-03-25] MEDS: INSULIN ASPART (NovoLOG) 100 UNIT/ML VIAL SQ SCH ×4 (00:28→17:43)
[2020-03-25] MEDS: IPRATROPIUM-ALBUTEROL 3 ML NEB INHALATION SCH ×5 (03:35→20:06)
[2020-03-25 04:13] LABS: African American GFR (CKD) >90 (>60 ml/min/1.73 sqM); Anion Gap 2 mmol/L; Blood Urea Nitrogen 21 mg/dL (9-20); Calcium 8.1 mg/dL (8.4-10.2); Carbon Dioxide 25 mmol/L (22-30); Chloride 114 mmol/L (98-107); Glucose 126 mg/dL (74-99); Magnesium 2.1 mg/dL (1.6-2.3); Non-African American GFR(CKD) >90 (>60 ml/min/1.73 sqM); Phosphorus 4.1 mg/dL (2.5-4.5); Potassium 4.3 mmol/L (3.5-5.1); Sodium 141 mmol/L (137-145)
[2020-03-25 04:20] LABS: Anisocytosis Slight; Basophils % (A) 0 %; Eosinophils % (A) 0 %; HCT 29.9 % (39.0-53.0); HGB 8.9 gm/dL (13.0-17.5); Hypochromasia Marked; Lymphocytes # (A) 0.7 k/uL (1.0-4.8); Lymphocytes % (A) 3 %; MCH 29.4 pg (25.0-35.0); MCHC 29.8 g/dL (31.0-37.0); MCV 98.6 fL (80.0-100.0); Macrocytosis Slight; Mean Platelet Volume 11.4; Monocytes % (A) 5 %; Neutrophils # (A) 17.9 k/uL (1.3-7.7); Neutrophils % (A) 90 %; Platelet Count 302 k/uL (150-450); RBC 3.03 m/uL (4.30-5.90); RDW 16.8 % (11.5-15.5)
[2020-03-25] MEDS: FERROUS SULFATE ORAL ELIXIR 300 MG/5 ML CUP PO SCH ×2 (06:28→17:20)
[2020-03-25 06:34] LABS: Glucose,Whole Blood 144 mg/dL (75-99)
[2020-03-25] MEDS: HYDROCORTISONE SUCCINATE 100 MG/2 ML VIAL IV SCH ×2 (09:21→20:52)
[2020-03-25] MEDS: PANTOPRAZOLE 40 MG/10 ML VIAL IVP SCH ×2 (09:21→20:52)
[2020-03-25] MEDS: THIAMINE 100 MG/ML 2 ML VIAL IVP SCH (09:22)
[2020-03-25] MEDS: FOLIC ACID 1 MG TAB OG-TUBE SCH (09:22)
[2020-03-25] MEDS: ANIDULAFUNGIN 100 MG in SODIUM CHLORIDE 0.9% 100 ML IVPB SCH (09:23)
[2020-03-25] MEDS: 1: MVI, ADULT NO.4 WITH VIT K 10 ML, TRACE (CONC-1ML/DOSE) 1 ML, SODIUM ACETATE 10 MEQ, IV SCH ×28 (09:49→20:02)
--- NOTE | 2020-03-25 10:20 | P.PN ---
Subjective Progress Note Date: 03/25/20 Principal diagnosis: Intermediate probability VQ scan, rule out possibility of pulmonary embolism This is a 64-year-old white male patient status post low anterior resection for strictures and diverticular disease, and this is postoperative day #6. Following his surgery on February 08 patient had a thrombus discomfort within the distal popliteal vein in his left leg, on the liver night patient had a CT angiogram of the chest which was a suboptimal study and did not reveal any large saddle all of central pulmonary emboli. The computed tomography scan showed evidence of small bilateral pleural effusions and multifocal groundglass opacities that could relate to pulmonary edema and/or pneumonia. His chest x- ray from February 11 showed bilateral infiltrates that could be consistent with pneumonia or heart failure. VQ scan showed indeterminate probability for pulmonary embolism. Patient has been confused, apparently he does have history of chronic EtOH, but it has been 60 since his admission, he remains very confused, he is on 3 L of oxygen and the pulse ox of 95%, he was started on heparin infusion for DVT in his left leg. We did not think there was a pulmonar y embolism based on his workup. His brain CT showed no acute intracranial abnormality. In addition there is a possibility of GI bleeding as the patient has been passing some dark stools. Is not appear to be in any respiratory distress, he remains lethargic, confused. Neurology is following, EEGs in progress. Dr. Araujo is planning on EGD tomorrow for evaluation of black stools. On 02/14/2020 patient seen in follow-up on general medical surgical floor his heparin drip is off, his 0.9 normal saline running at 75 ML per hour, appears to be more awake on today's exam, although still confused, she is only oriented to percent, no agitation. No signs of respiratory difficulty, he is on 3 L of oxygen pulse ox is 95%, hemodynamically stable, his abdomen is slightly tender postsurgery, his incision covered with dressing, his been afebrile, breathing is nonlabored, lung sounds reveal a few basilar crackles, no rhonchi or wheezing. Surgery is planned and on EGD today, neurology is following, EEG revealed background slowing of moderate degree suggestive of generalized cerebral dysfunction related to toxic metabolic encephalopathy. Today's hemoglobin is 8.6, had one bowel movement this morning. On 02/15/2020 patient seen in follow-up on general medical surgical floor, patient had EGD done yesterday which did not reveal any active bleeding, patient was restarted on heparin infusion for evidence of DVT in his lower extremity, no worsening dyspnea, patient is still on and off lethargic, but appears to be in no acute distress. He is on 3 L of oxygen pulse ox of 95%, his been afebrile, completed chest pain. No hemoptysis. Today's hemoglobin is 9.0. On 02/25/2020 we were reconsulted in view of significant clinical deterioration last night, rapid response team was called, alva gama was activated at 0243 in the morning on 02/26/2020. Apparently patient was having ongoing abdominal pain for the past few days prior to the event, he was believed to have ileus. His abdominal CT of abdomen and pelvis was done on 02/19/2020 showing postoperative changes in the sigmoid colon, proximal to this level there was abnormal thickening of the right colon, some thickened small bowel loops were also present, no is no evidence of free air, there was evidence of increased amount of ascites. There was interval development of bilateral pleural effusions and associated atelectasis. Past few days patient also developed a low urine output urology also consulted on the case for difficult Lemus insertion and possible urinary retention. Yesterday on 02/25/2020 ultrasound abdomen showed moderate ascites in the right flank. His abdomen continued to be more distended and painful, patient was eating some oral intake, however his blood pressures were running on the lower side, his urine output continued to be low, there was paracentesis planned a possibility of ascites. Last night patient developed hypothermia, and hypotension. Patient became unresponsive, and there was no pal pable pulse. CPR was started and immediately patient became responsive, CPR was stopped, patient was emergently intubated placed on mechanical ventilator and transferred to the intensive care unit. ID service has been following, patient's antibiotic coverage includes daptomycin. This morning he seen in the intensive care unit, sedated, intubated, on assist-control mode of ventilation, with a rate of 16, tidal planning is 500, FiO2 of 50%, and PEEP of 5. This was blood gases showed pO2 of 88, pCO2 of 29, and pH is 7.34. Patient is hypotensive, he is requiring levo fed at 0.43 mics per kilo per minute over 25 mics per minute, Diprivan and is at 40 mics per kilo per minute, patient has rec eived fluid resuscitation, yesterday she had received 2 L of fluid from the surgical team earlier in the day, and he received additional 2 L bolus after his cardiac pulmonary arrest early this morning, his maintenance IV fluids are currently infusing at a rate of 75 ML per hour. Patient kidney to be hypotensive, we gave him an additional liter fluid bolus today, and she will be started on a vasopressin infusion for refractory hypotension. Blood cultures have been sent, pending at this time. Prior blood cultures and sputum culture. Patient's abdomen remains very tense, distended, firm, with the area of redness and discoloration, and induration near the mid abdominal surgical incision. Avinash srinivasan has a lot of generalized swelling, he is weeping from the catheter insertion sites. He had right femoral central line catheter placed by Dr. Jarrell at the bedside and a right radial art line placed for close hemodynamic monitoring. This morning's lab work has been reviewed showing squamous cell count of 21.8, hemoglobin of 8.9, sodium of 137, potassium is 4.1, chloride is 119, CO2 is 10, BUN is 10 and creatinine 0.64, patient was given 2 A of sodium bicarbonate. On 03/03/2020 patient seen in follow-up in the intensive care unit, he remains intubated, and sedated, on assist-control mode of ventilation, with a rate of 10, tidal lung is 500, FiO2 of 50% and PEEP of 5, this morning blood gases revealed pO2 of 116, pCO2 37, and pH of 7.51. His current IVs include 0.9 normal seen at a rate of 10 ML per hour, levothyroid is a 6 mics per minute, propofol is currently off, and patient is receiving nutritional support with vital AF 1.2 at a rate of 10 ML per hour. Today's chest x-ray shows stable diffuse interstitial pattern with bilateral infiltrates and pleural effusion that are stable in appearance. His labs have been reviewed showing with blood cell count of 13.8, hemoglobin of 8.9, sodium 144, potassium is 3.6, chloride is 113, and the rest of electrolytes and renal profile were unremarkable. Patient is passing some liquid green stools, abdomen is nontender, mid abdominal incision is clean dry and intact, he has been tolerating tube feedings. Patient is on antibiotics including daptomycin, Diflucan, and Zosyn On 03/04/2020 patient seen in follow-up in the intensive care unit, his been off all sedation for 48 hours, he remains very minimally responsive, she opens his eyes slightly to painful stimuli, still very drowsy, encephalopathic, remains on ventilator support, current vent settings are assist control mode of ventilation with a rate of 10, tidal legs 500, FiO2 of 40% and PEEP of 5, and dyspneic blood gases showed pO2 of 102, pCO2 34 and pH of 7.49. Patient is currently on 0.9 normal saline at rate of 100 ML per hour, levo fed is at 10 mics per minute, no other drips, vital AF for nutritional support at 17 with a goal 17. Has not been able to wean off the vasopressors, patient remains on Solu-Cortef Cortef at 50 mg every 12 hours, we'll adjust the dose to 26 hours. Patient is tolerating tube feedings, he is passing liquid bowel movements, fecal management system was inserted, is on antibiotics in the form of Zosyn and daptomycin. he has been afebrile, no new growth on his cultures. Abdomen is much less distended, is soft, his mid abdominal incision is clean dry and intact, yvonne are intact, Lemus catheter is in place patient is producing 15-35 ML per hour. Chest x-ray showing basilar atelectasis, probable left pleural effusion, and there is some improvement in aeration of the right lung base. Remains on on anticoagulation in the form of Lovenox 60 mg twice daily. In sinus mechanism on the monitor. Patient has significant amount of generalized edema in his upper and lower extremities, and truncal edema. On 2019 patient seen in follow-up in the intensive care unit, she remains intubated, she still very lethargic, his Diprivan and has been on hold for last 72 hours, current vent settings are assist-control with a rate of 10, tidal volume is 500, FiO2 40%, and PEEP of 5. Patient had pressure-support trials , she was placed on assist-control mode overnight. No acute events overnight, currently down to 3.5 mics per minute on the levo fed infusion, 0.9 normal saline at 100 ML per hour, remains on the nutritional support with vital AF at a rate of 17 with a goal a 17, tolerating tube feedings well, he is passing liquid stools, fecal management system is in place, in sinus mechanism, his been afebrile, remains on antibiotics . Blood culture, ascites fluid cultures have been negative, sputum was only positive for Pita, patient is covered with Zosyn, daptomycin and Diflucan. Abdomen is soft, nontender, demonstrates incisions clean dry and intact, yvonne are intact. Patient has significant generalized edema, but has been requiring vasopressor support. Renal function is within normal limits, today's labs have been reviewed, sodium is 145, potassium is 3.3, chloride is 118, BUN 17 creatinine 0.7 On 03/06/2020 patient remains lethargic, he withdraws to painful stimuli, his Diprivan has been on hold for last 4 days, he is not given any narcotics or sedatives, per nursing staff at times she opens eyes to voice, and is able to weakly squeeze hands on command, appears to be no acute distress, remains on assist control mode of ventilation with a rate of 10, tidal and is 500, FiO2 of 40% and PEEP of 5, this point his blood gases show pO2 117, pCO2 34, and pH of 7.45, FiO2 is down to 35%, his creatinine 0.9 normal seen at a rate of 40 more per hour, levo fed is at 3 mics per minute. 2 feedings are on hold for tracheostomy and PEG tube placement today, yesterday he had paracentesis at the bedside with removal of 6 L of straw-colored ascitic fluid. Brain CT was com pleted showing cerebral atrophy, no acute intracranial abnormality. No change from most prior CT of the brain from 03/04/2020. Today's labs have been reviewed showing white blood cell count of 16.4, hemoglobin of 8.8, sodium 146, potassium 3.5, chloride is 122, CO2 24, B1 17 creatinine 0.71. he is afebrile. No new growth on the cultures, remains on empiric antibiotics, daptomycin, Zosyn. On 03/07/2020 patient seen in follow-up in the intensive care unit. Yesterday he had his tracheostomy placed, this morning she remains on assist-control mode of ventilation with a rate of 10, tidal legs 500, FiO2 of 35% and PEEP of 5, this morning blood gases reveal pO2 of 99%, pCO2 31, and pH of 7.44. He remains quite encephalopathic, sleepy, withdraws from painful stimuli but he is unable to follow commands, he has a severe generalized weakness and swelling, he is unable to squeeze hands on command. Currently on 0.9 normal seen at a rate of 50 ML per hour, levo fed is at 0.06 mics per kilo per minute, no other drips, his tube feedings are on hold, yesterday PEG tube could not be placed related to abdominal wall edema, may have to place a Dobbhoff tube for tube feedings. Last night NG tube placement attempts were unsuccessful. Lung sounds are clear, diminished at the bases, his abdomen is soft, slightly tender, abdominal incision is clean dry and intact, yvonne are intact. Patient is status post large volume paracentesis the day before yesterday would removal of 6 L of ascitic fluid. Antibiotics in the form of daptomycin, fluconazole, and Zosyn. Patient has been afebrile, no new growth on the cultures. And is producing liquid stool, fecal management system is in place. On 03/17/2020 patient seen in follow-up in the intensive care unit, he remains encephalopathic, however he seems to be a bit more responsive to touch, and voice, he remains trached to the ventilator, on assist control mode of ventilation with a rate of 10, tidal volume is 500, FiO2 of 40% and PEEP of 9. His blood gas this morning revealed pO2 of 96, pCO2 of 30, and pH of 7.38 this was done and FiO2 of 40%. She remains on small dose of levo fed at 0.03 mics per kilo per minute, he has some IV fluids infusing in rate is 75 ML per hour. No other drips, remains on Zosyn for antibiotic coverage, in addition to your axis, his sputum culture was positive for Klebsiella pneumonia, and Pita albicans, blood cultures have been negative, he is some ascites fluid has shown no growth, he remains on TPN, his NG tube remains to low intermittent suction, she was still having increased gastric drainage and for that reason patient's tube feedings have been on hold, his abdomen becoming increasingly more distended, and today we will request for interventional radiology to proceed with the ultrasound-guided paracentesis. Patient remains very generally swallowing, with increased edema in his trunk, and upper and lower extremities, today's labs have been reviewed, showing left tonsil, 17.6, hemoglobin of 8.2, his platelet count was 185, sodium is 142, potassium 3.8, chloride was 121, CO2 was 18, BUN is 26 and creatinine 0.68. His chest x-ray today showed stable bilateral lower lobe infiltrate and small effusion. On 03/24/2020 patient seen in follow-up in the intensive care unit, is drowsy, but arousable, she remains on assist control mode of ventilation with a rate of 10, tidal legs 500, FiO2 of 40% and PEEP of 5, no blood gases today. Yesterday patient tolerated several hours of pressure control trials with pressure control of 5 and CPAP of 5. Was switched back to assist control mode of ventilation overnight. Vital signs are stable, sinus mechanism, slightly tachycardic on the monitor, IV 0.9 at 10 ML per hour, and TPN at 55 ML per hour, no vasoactive drips. Chest x-ray today, last chest x-ray was done on 03/22/2020, showing stable diffuse pleural parenchymal changes correlating to CHF. Today's labs have been reviewed showing white blood cell count of 15.3, hemoglobin of 8.9, sodium is 143, potassium is 4.5, chloride is 116, B1 is 22, creatinine 0.55. Patient remains on antibiotics in the form of Zosyn, and Eraxis evidence of Klebsiella pneumonia in the sputum, and tracheostomy insertion site. ID service is following, patient remains profoundly weak, his been requiring recurrent paracentesis. His has been at the bedside, and his been in communication with Dr. Jarrell on the regular basis. Patient CODE STATUS is DO NOT RESUSCITATE. She decided to go with hospice and take the patient home on oxygen. Hospice was consulted last night however has not been into see the patient yet, they're expected to come in today and evaluate the patient and make necessary arrangements for possible transition home. On 03/25/2020 patient seen in follow-up in intensive care unit, he is awake, he is following simple commands, she is on 35% trach collar, and his pulse ox is 98%, sinus mechanism, hemodynamically patient has been stable, his been afebrile, he is on TPN at a rate of 55 ML per hour, and 0.9 normal seen at a rate of 20 ML per hour. No new chest x-ray today, he has not been able to tolerate any tube feedings, his had 1.4 L in the gastric output from the NG tube for last 24 hours, his been requiring frequent paracentesis, his abdomen is slightly distended but nontender, incision is well-healed. Today's labs have been reviewed, showing white blood cell count 20, hemoglobin of 8.9, sodium is 141, potassium is 4.3, chloride is 114, CO2 of 25 mCi 21 creatinine 0.44. Patient has severe generalized weakness, he is unable to squeeze with his hands, he is unable to move his extremities. Hospice consultation is still pending, patient is expected to be seen by hospice, and transferred either to a nursing facility with hospice or home with hospice. He is to be supportively treated, with done antibiotics, IV fluids and breathing treatments. Objective - Vital Signs Vital signs: Vital Signs Temp 98.3 F 03/25/20 08:00 Pulse 109 H 03/25/20 09:00 Resp 19 03/25/20 09:00 BP 116/74 03/25/20 09:00 Pulse Ox 89 L 03/25/20 09:00 Intake & Output 03/24/20 03/25/20 03/25/20 18:59 06:59 18:59 Intake Total 990 2240.3333 1367.25 Output Total 1465 885 100 Balance -475 1355.3333 1267.25 Weight 60.1 kg 61.4 kg Intake: IV 990 1215 446 Anidulafungin 100 mg In 100 100 Sodium Chloride 0.9% 100 ml @ 84 mls/hr IVPB DAILY [facility] Rx#:[id number] Fat Emulsion 20% 250 ml 189 21 In Empty Bag 1 bag @ 21 mls/hr IV MoWeFr JOANA Rx#: [id number] Fat Emulsion 20% 250 ml 126 In Empty Bag 1 bag @ 21 mls/hr IV Q24H [facility]ANA Rx#: [id number] MVI 660 660 165 Piperacillin-Tazobactam 3 100 100 .375 gm In Sodium Chloride 0.9% 100 ml @ 25 mls/hr IVPB Q8HR [facility] Rx# :[id number] Sodium Chloride 0.9% 1, 130 240 60 000 ml @ 20 mls/hr IV . Q24H [facility]ANA Rx#:[id number] Intake, IV Titration 1025.3333 921.25 Amount Mvi, Adult No.4 with Vit 921.25 K 10 ml Trace (Conc-1Ml/ Dose) 1 ml Sodium Acetate 10 meq Potassium Acetate 30 meq Magnesium Sulfate gm 1 gm Potassium Phosphate 10 mmol In Amino Acids 5 %/Dextrose 20 % 1,000 ml @ 55 mls/hr IV .BY DURATION [facility] Rx#: [id number] Sodium Acetate 10 meq 1025.3333 Potassium Acetate 30 meq Magnesium Sulfate gm 1 gm Potassium Phosphate 10 mmol In Amino Acids 5 %/ Dextrose 20 % 1,000 ml @ 55 mls/hr IV .BY DURATION [facility] Rx#:[id number] Output: Gastric Drainage 1000 470 Urine 465 415 100 Other: Voiding Method Indwelling Catheter Indwelling Catheter ABP, PAP, CO, CI - Last Documented Arterial Blood Pressure 126/63 - Exam GENERAL EXAM: Awake, able to mouth words, 64-year-old white male, 35% trach collar with a pulse ox of 95% HEAD: Normocephalic/atraumatic. EYES: Normal reaction of pupils, equal size. Conjunctiva pink, sclera white. NOSE: Clear with pink turbinates. THROAT: No erythema or exudates. NECK: No masses, no JVD, no thyroid enlargement, no adenopathy. Midline tr acheostomy in place, on trach collar 35%, with a pulse ox of 95% CHEST: No chest wall deformity. Symmetrical expansion. LUNGS: Equal air entry with no crackles, wheeze, rhonchi or dullness. CVS: Regular rate and rhythm, normal S1 and S2, no gallops, no murmurs, no rubs ABDOMEN: Slightly distended and firm on today's exam compared no rigidity, and abdominal incision is clean dry and intact, well approximated and healed, yvonne EXTREMITIES: No clubbing, 2+ upper and lower extremity edema, patient has a weeping edema with the drainage from the catheter insertion sites no cyanosis, 2+ pulses and upper and lower extremities. MUSCULOSKELETAL: Muscle strength and tone normal. SPINE: No scoliosis or deformity SKIN: No rashes CENTRAL NERVOUS SYSTEM: She is awake and alert, follows simple command, he is able to mouth words, but he is unable to move any of his extremities in view of severe generalized weakness No focal deficits, tone is normal in all 4 extremities. - Labs CBC & Chem 7: 03/25/20 03:02 03/25/20 03:01 Labs: Abnormal Lab Results - Last 24 Hours (Table) 03/24/20 03/24/20 03/25/20 Range/Units 12:23 17:34 00:11 WBC (3.8-10.6) k/uL RBC (4.30-5.90) m/uL Hgb (13.0-17.5) gm/dL Hct (39.0-53.0) % MCHC (31.0-37.0) g/dL RDW (11.5-15.5) % Neutrophils # (1.3-7.7) k/uL Lymphocytes # (1.0-4.8) k/uL Chloride (98-107) mmol/L BUN (9-20) mg/dL Creatinine (0.66-1.25) mg/dL Glucose (74-99) mg/dL POC Glucose (mg/dL) 160 H 127 H 138 H (75-99) mg/dL Calcium (8.4-10.2) mg/dL 03/25/20 03/25/20 03/25/20 Range/Units 03:01 03:02 06:32 WBC 20.0 H (3.8-10.6) k/uL RBC 3.03 L (4.30-5.90) m/uL Hgb 8.9 L (13.0-17.5) gm/dL Hct 29.9 L (39.0-53.0) % MCHC 29.8 L (31.0-37.0) g/dL RDW 16.8 H (11.5-15.5) % Neutrophils # 17.9 H (1.3-7.7) k/uL Lymphocytes # 0.7 L (1.0-4.8) k/uL Chloride 114 H (98-107) mmol/L BUN 21 H (9-20) mg/dL Creatinine 0.44 L (0.66-1.25) mg/dL Glucose 126 H (74-99) mg/dL POC Glucose (mg/dL) 144 H (75-99) mg/dL Calcium 8.1 L (8.4-10.2) mg/dL Assessment and Plan Plan: Assessment: #1. Acute hypoxic respiratory failure related to aspiration pneumonia and bilateral pleural effusions related to the ascites On 03/07/2020 patient remains trached to the mechanical ventilator on assist control mode of ventilation. Patient had a tracheostomy on 03/06/2020 On 03/25/2020 patient is on trach collar at 35% and he is satting about 95%, does not appear to be in any acute distress #2. Acute cardiac pulmonary arrest on 02/26/2020 related to septic shock, patient required a brief CPR, was emergently intubated and fluid resuscitated, requiring high dose of vasopressors including norepinephrine and vasopressin. Currently off all vasopressors #3. Increased bibasilar opacities and new small bilateral pleural effusions on the chest x-ray, related to fluid overload #4. Abdominal pain and distention, related to recurrent bowel obstruction, resolved, #5. Massive ascites, status post high-volume paracentesis, on 02/27/2020 with removal of 8 L of ascitic fluid, and repeat paracentesis on would removal of 6 L of fluid. Last paracentesis was on 03/21/2020 would removal of 5.3 L of ascitic fluid. #6. Non-anion gap metabolic acidosis related to septic shock, and has received IV fluids and bicarbonate infusion, resolved #7. Volume contraction alkalosis, secondary to paracentesis and diuretic therapy, resolved #8. Elevated d-dimer, nonspecific, doubt possibility of pulmonary embolism. CTA chest was suboptimal but did not reveal any evidence of central pulmonary embolism, VQ scan showed intermediate probability for pulmonary embolism, patient was found to have a new left leg DVT, was on Eliquis, she was discontinued in view of bleeding around the tracheostomy site. Patient had a IVC filter placed. #9. Diverticulitis, status post lower anterior resection, takedown of splenic flexure and partial omentectomy #10. Alcohol abuse with alcohol withdrawal #11. Recent history dark black stools the possibility of upper GI bleeding #12. Altered mental status, related to metabolic encephalopathy, neurology is following. On 03/07/2020 patient has been off Diprivan for the last 4 days, and he remains encephalopathic, sleepy, and unable to follow commands, withdraws from pain #13. History of diverticular disease #14. History of EtOH abuse #15. Suspect Klebsiella pneumonia pneumonia. Repeat sputum cultures from 03/19/2020 showed Klebsiella pneumonia again. Sensitive to Zosyn and patient remains on Zosyn #16. Severe generalized weakness related to critical illness polyneuropathy Plan: Continue supportive medical treatment, continue TPN for nutritional support, patient has not been able to tolerate any feedings via his feeding tube in view of high residuals. He is currently on trach collar, tolerating it well so far, however in view of his severe generalized weakness, and critical illness po lyneuropathy it is possible the patient may need to be placed back on ventilator in case he develops respiratory fatigue. We haven't had a chest x-ray in last few days, so far he is breathing comfortably, overall he is a high risk for clinical deterioration. Continue with antibiotics per ID service recommendations, his had no fever, hemodynamically stable, seems to be more awake, following simple commands, mouthing words, but unable to move his extremities. Hospice consultation is pending, and it is a possibility that the patient may require placement in the [facility] under hospice. If the patient's family opts for LTAC facility, long-term prognosis is quite poor, in view of multiple comorbidities, quite severe critical illness polyneuropathy, recurrent ascites requiring recurrent paracentesis, general medical debility. I performed a history & physical examination of the patient and discussed their management with my nurse practitioner, Felipa Matute. I reviewed the nurse pr actitioner's note and agree with the documented findings and plan of care. Lung sounds are positive for clear breath sounds throughout the lung arias. The findings and the impression was discussed with the patient. I attest to the documentation by the nurse practitioner. Time with Patient: Greater than 30
--- NOTE | 2020-03-25 11:41 | P.PN ---
Subjective Progress Note Date: 03/25/20 CHIEF COMPLAINT: Diverticulitis HISTORY OF PRESENT ILLNESS: Patient remains in the ICU. Patient is awake and following simple commands. He is on 35% trach collar. He is on TPN for nutrition support. Patient is not able to tolerate tube feedings. He had 1.4 L of bilious output through NG tube. Abdomen is more distended. He has required multiple paracentesis during this admission. CODE STATUS is a DO NOT RESUSCITATE. Patient's overall condition is very poor and guarded. Hospice consultation is pending. It appears that he is to either transferred either to a nursing facility with hospice or home with hospice. Afebrile. WBC 20 hemoglobin 8.9 PHYSICAL EXAM: VITAL SIGNS: Reviewed. GENERAL: Well-developed in no acute distress. HEENT: No sclera icterus. Extraocular movements grossly intact. Moist buccal mucosa. Head is atraumatic, normocephalic. ABDOMEN: distended Incision clean dry and intact. NEUROLOGIC: Patient is awake and able to open eyes. ASSESSMENT: 1. Cardiopulmonary arrest and acute hypoxic respiratory failure secondary to septic shock. 2. Diverticulitis status post lower anterior resection, takedown of splenic flexure and partial omentectomy on 02/07/2020 3. Patient's abdominal distention likely related to ileus, ascites from his liver cirrhosis and possible hernia. 4. Alcohol abuse with alcohol withdrawal 5. New left leg DVT during this admission. Unable to tolerate anticoagulation. He is now status post IVC filter placement 6. ileus 7. Black stools. Resolved. No evidence of upper GI bleed on EGD. EGD was normal 8. Altered mental status likely due to cardiac arrest and superimposed toxic metabolic encephalopathy. Followed by neurology 9. Possible aspiration pneumonia 10. Severe protein calorie malnutrition 11. Liver cirrhosis with abdominal ascites status post multiple paracentesis during this admission 12. 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 Signing provider agrees with the documented findings, assessment, and plan of care. Objective - Vital Signs Vital signs: Vital Signs Temp 98.3 F 03/25/20 08:00 Pulse 102 H 03/25/20 10:00 Resp 14 12/22/20 10:00 BP 107/72 03/25/20 10:00 Pulse Ox 97 03/25/20 10:00 Intake & Output 03/24/20 03/25/20 03/25/20 18:59 06:59 18:59 Intake Total 990 2240.3333 1442.25 Output Total 1465 885 120 Balance -475 1355.3333 1322.25 Weight 60.1 kg 61.4 kg Intake: IV 990 1215 521 Anidulafungin 100 mg In 100 100 Sodium Chloride 0.9% 100 ml @ 84 mls/hr IVPB DAILY JOANA Rx#:[id number] Fat Emulsion 20% 250 ml 189 21 In Empty Bag 1 bag @ 21 mls/hr IV MoWeFr JOANA Rx#: [id number] Fat Emulsion 20% 250 ml 126 In Empty Bag 1 bag @ 21 mls/hr IV Q24H JOANA Rx#: [id number] MVI 660 660 220 Piperacillin-Tazobactam 3 100 100 .375 gm In Sodium Chloride 0.9% 100 ml @ 25 mls/hr IVPB Q8HR JOANA Rx# :[id number] Sodium Chloride 0.9% 1, 130 240 80 000 ml @ 20 mls/hr IV . Q24H JOANA Rx#:[id number] Intake, IV Titration 1025.3333 921.25 Amount Mvi, Adult No.4 with Vit 921.25 K 10 ml Trace (Conc-1Ml/ Dose) 1 ml Sodium Acetate 10 meq Potassium Acetate 30 meq Magnesium Sulfate gm 1 gm Potassium Phosphate 10 mmol In Amino Acids 5 %/Dextrose 20 % 1,000 ml @ 55 mls/hr IV .BY DURATION JOANA Rx#: [id number] Sodium Acetate 10 meq 1025.3333 Potassium Acetate 30 meq Magnesium Sulfate gm 1 gm Potassium Phosphate 10 mmol In Amino Acids 5 %/ Dextrose 20 % 1,000 ml @ 55 mls/hr IV .BY DURATION JOANA Rx#:[id number] Output: Gastric Drainage 1000 470 Urine 465 415 120 Other: Voiding Method Indwelling Catheter Indwelling Catheter Indwelling Catheter ABP, PAP, CO, CI - Last Documented Arterial Blood Pressure 126/63 - Labs CBC & Chem 7: 03/25/20 03:02 03/25/20 03:01 Labs: Abnormal Lab Results - Last 24 Hours (Table) 03/24/20 03/24/20 03/25/20 Range/Units 12:23 17:34 00:11 WBC (3.8-10.6) k/uL RBC (4.30-5.90) m/uL Hgb (13.0-17.5) gm/dL Hct (39.0-53.0) % MCHC (31.0-37.0) g/dL RDW (11.5-15.5) % Neutrophils # (1.3-7.7) k/uL Lymphocytes # (1.0-4.8) k/uL Chloride (98-107) mmol/L BUN (9-20) mg/dL Creatinine (0.66-1.25) mg/dL Glucose (74-99) mg/dL POC Glucose (mg/dL) 160 H 127 H 138 H (75-99) mg/dL Calcium (8.4-10.2) mg/dL 03/25/20 03/25/20 03/25/20 Range/Units 03:01 03:02 06:32 WBC 20.0 H (3.8-10.6) k/uL RBC 3.03 L (4.30-5.90) m/uL Hgb 8.9 L (13.0-17.5) gm/dL Hct 29.9 L (39.0-53.0) % MCHC 29.8 L (31.0-37.0) g/dL RDW 16.8 H (11.5-15.5) % Neutrophils # 17.9 H (1.3-7.7) k/uL Lymphocytes # 0.7 L (1.0-4.8) k/uL Chloride 114 H (98-107) mmol/L BUN 21 H (9-20) mg/dL Creatinine 0.44 L (0.66-1.25) mg/dL Glucose 126 H (74-99) mg/dL POC Glucose (mg/dL) 144 H (75-99) mg/dL Calcium 8.1 L (8.4-10.2) mg/dL
--- NOTE | 2020-03-25 12:07 | P.PN ---
Subjective Progress Note Date: 03/25/20 Principal diagnosis: -Acute bleeding from the tracheostomy and also aspirated from the G-tube. 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 Repeat paracentesis. 4.5 L.-repeat paracentesis is 4.4 L.. Repeat par acentesis 4 L removed-repeat paracentesis 5 L removed -Mild hyponatremia-corrected -Hypernatremia-corrected -Macrocytic anemia. -Acute DVT in the left distal popliteal vein-anticoagulation discontinued because of bleeding. -Acute alcohol withdrawal syndrome with improvement -Right lower lobe pneumonia -Mild protein calorie malnutrition from decreased oral intake -Tracheostomy tube placed on March 06 -Metabolic encephalopathy-no improvement -Dobbhoff tube placed and removed -TPN and lipids -IVC filter placed-March [address] Bailey 03/25/2020, patient is on trach collar, aerosolized oxygen, sats stable, patient is being planned for hospice mental status remains poor nonverbal and no ncommunicative 03/24/2020, patient seen eval examined during the rounds labs reviewed medications reviewed, sequence of events per intensive care note, patient is being considered for hospice by family 03/23/2020, patient remains on ventilator support, family is considering comfort measures and hospice has been consulted pending further evaluation 03/22/2020, patient remains sedated with full ventilator support, remains on TPN, status post a paracentesis 5 L of fluid has been removed, pulmonary has been following and adjusting her respirator, This is a pleasant 64-year-old patient of . Patient been having complication to his diverticulitis. computed tomography scan on January 08. Showed some possible stricture. Hepatic steatosis. February 06- undergone low anterior resection. Epidural for pain control.patient had elevated d-dimer. Pulmonary embolism felt to be unlikely. CT was suboptimal. VQ scan was intermediate probability. Leg DVT treated with IV heparin. Had some dark stools.also patient had had altered mental status. [place] to be encephalopathy.computed tomography scan of the brain was unremarkable. EGD-no evidence of bleeding. Patient more awake after dose of baclofen cutback. changed over to xarelto.x-ray showing ileus. Patient did start having bowel movements. Repeat computed tomography scan of the abdomen showed possible enteritis./Colitis.as abdomen appeared distended. Lemus catheter was placed. No urine retention.-patient become hypotensive. Had a brief cardiac and pulmonary arrest Moved to ICU. Had to be intubated. Drips include norepinephrine, vasopressin, propofol. NG tube to suction.also treated for aspiration pneumonia and abdominal wall cellulitis.ascitic fluid that was tapped was unremarkable.4.5 L of acetic fluid removed. On March 06 underwent tracheostomy.Dophoff tube was placed and then had to be removed because of abdominal distention. Patient felt to have recurrent aspiration. March 20- Marianne filter placed. Because of significant bleeding from the tracheostomy site. Objective - Vital Signs Vital signs: Vital Signs Temp 98.3 F 03/25/20 08:00 Pulse 102 H 03/25/20 10:00 Resp 14 03/25/20 10:00 BP 107/72 03/25/20 10:00 Pulse Ox 97 03/25/20 10:00 Intake & Output 03/24/20 03/25/20 03/25/20 18:59 06:59 18:59 Intake Total 990 2240.3333 1442.25 Output Total 1465 885 120 Balance -475 1355.3333 1322.25 Weight 60.1 kg 61.4 kg Intake: IV 990 1215 521 Anidulafungin 100 mg In 100 100 Sodium Chloride 0.9% 100 ml @ 84 mls/hr IVPB DAILY JOANA Rx#:[id number] Fat Emulsion 20% 250 ml 189 21 In Empty Bag 1 bag @ 21 mls/hr IV MoWeFr JOANA Rx#: [id number] Fat Emulsion 20% 250 ml 126 In Empty Bag 1 bag @ 21 mls/hr IV Q24H JOANA Rx#: [id number] MVI 660 660 220 Piperacillin-Tazobactam 3 100 100 .375 gm In Sodium Chloride 0.9% 100 ml @ 25 mls/hr IVPB Q8HR JOANA Rx# :[id number] Sodium Chloride 0.9% 1, 130 240 80 000 ml @ 20 mls/hr IV . Q24H JOANA Rx#:[id number] Intake, IV Titration 1025.3333 921.25 Amount Mvi, Adult No.4 with Vit 921.25 K 10 ml Trace (Conc-1Ml/ Dose) 1 ml Sodium Acetate 10 meq Potassium Acetate 30 meq Magnesium Sulfate gm 1 gm Potassium Phosphate 10 mmol In Amino Acids 5 %/Dextrose 20 % 1,000 ml @ 55 mls/hr IV .BY DURATION JOANA Rx#: [id number] Sodium Acetate 10 meq 1025.3333 Potassium Acetate 30 meq Magnesium Sulfate gm 1 gm Potassium Phosphate 10 mmol In Amino Acids 5 %/ Dextrose 20 % 1,000 ml @ 55 mls/hr IV .BY DURATION JOANA Rx#:[id number] Output: Gastric Drainage 1000 470 Urine 465 415 120 Other: Voiding Method Indwelling Catheter Indwelling Catheter Indwelling Catheter ABP, PAP, CO, CI - Last Documented Arterial Blood Pressure 126/63 - Exam VITAL SIGNS: 98.9, 90, 14, 107/73, 96% on the ventilator GENERAL: Laying in bed, eyes open,. Tracheostomy tube, EYES: Pupils equal. Conjunctiva normal. HEENT:, Dry oral cavity, OG tube NECK: JVD unable to assess; masses not palpable. Tracheostomy tube HEART: First and second heart sounds are normal; edema LUNGS: Respiratory rate increased; decreased breath sounds. ABDOMEN: Soft, distended , nontender, , liver spleen not palpable. Lemus catheter PSYCH: Unable to assess - Labs CBC & Chem 7: 03/25/20 03:02 03/25/20 03:01 Labs: Abnormal Lab Results - Last 24 Hours (Table) 03/24/20 03/24/20 03/25/20 Range/Units 12:23 17:34 00:11 WBC (3.8-10.6) k/uL RBC (4.30-5.90) m/uL Hgb (13.0-17.5) gm/dL Hct (39.0-53.0) % MCHC (31.0-37.0) g/dL RDW (11.5-15.5) % Neutrophils # (1.3-7.7) k/uL Lymphocytes # (1.0-4.8) k/uL Chloride (98-107) mmol/L BUN (9-20) mg/dL Creatinine (0.66-1.25) mg/dL Glucose (74-99) mg/dL POC Glucose (mg/dL) 160 H 127 H 138 H (75-99) mg/dL Calcium (8.4-10.2) mg/dL 03/25/20 03/25/20 03/25/20 Range/Units 03:01 03:02 06:32 WBC 20.0 H (3.8-10.6) k/uL RBC 3.03 L (4.30-5.90) m/uL Hgb 8.9 L (13.0-17.5) gm/dL Hct 29.9 L (39.0-53.0) % MCHC 29.8 L (31.0-37.0) g/dL RDW 16.8 H (11.5-15.5) % Neutrophils # 17.9 H (1.3-7.7) k/uL Lymphocytes # 0.7 L (1.0-4.8) k/uL Chloride 114 H (98-107) mmol/L BUN 21 H (9-20) mg/dL Creatinine 0.44 L (0.66-1.25) mg/dL Glucose 126 H (74-99) mg/dL POC Glucose (mg/dL) 144 H (75-99) mg/dL Calcium 8.1 L (8.4-10.2) mg/dL Assessment and Plan Assessment: -Acute bleeding from the tracheostomy and also aspirated from the G-tube. 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 Repeat paracentesis. 4.5 L.-repeat paracentesis is 4.4 L.. Repeat paracentesis 4 L removed-repeat paracentesis 5 L removed -Mild hyponatremia-corrected -Hypernatremia-corrected -Macrocytic anemia. -Acute DVT in the left distal popliteal vein-anticoagulation discontinued because of bleeding. -Acute alcohol withdrawal syndrome with improvement -Right lower lobe pneumonia -Mild protein calorie malnutrition from decreased oral intake -Tracheostomy tube placed on March 06 -Metabolic encephalopathy-no improvement -Dobbhoff tube placed and removed -TPN and lipids -IVC filter placed-March [address] Bailey Plan: Continue broad-spectrum antibiotics along with TPN, overall long-term prognosis remains poor, and aspirin discussions on today for possible comfort care, hospice has been consulted Time with Patient: Greater than 30
--- NOTE | 2020-03-25 15:27 | CDI ---
Documentation Clarification Form Date: 03/25/2020 02:30:15 PM From: Modesta Skelton RN CCDS Admit Date: 02/07/2020 08:00:00 AM Patient Name: Murray Carter Visit Number: [id number] Discharge Date: ATTENTION: The Clinical Documentation Specialists (CDI) and [facility] Coding Staff appreciate your assistance in clarifying documentation. Please respond to the clarification below the line at the bottom and electronically sign. The CDI & [facility] Coding staff will review the response and follow-up if needed. Please note: Queries are made part of the Legal Health Record. If you have any questions, please contact the author of this message via ITS. Dr. Hiram Lee Conflicting documentation has been found in the medical record: Possibility of Pulmonary embolism Internal Medicine progress notes 02/11 & 02/12 Pulmonary Embolism is documented in Surgical progress notes 03/22 and 03/23 We did not think there was a pulmonary embolism based on his workup. Pulmonary progress notes 02/12 through 03/25 History/Risk Factors: 64-year-old male presents to [facility] for elective bowel resection. Medical History of Diverticulitis, Alcohol abuse current smoker. Clinical Indicators: Venous Doppler 02/08: Evidence of acute DVT involving the popliteal vein. CTA Thorax 02/10: Small bilateral pleural effusions. Multifocal ground glass opacities could reflect edema and/or infiltrates. VQ Scan 02/11: Intermediate probability for pulmonary embolism Treatment: 02/08 Heparin Iv per protocol d/c 02/10; 02/11 Heparin Iv per protocol d/c 02/14; 02/14 Heparin Iv x1; 02/25 Lovenox SQ daily changed 03/01 BID d/c 03/18 In your opinion, what is the most clinically appropriate diagnosis for this patient? Pulmonary Embolism Pulmonary Embolism Ruled Out Other explanation of clinical findings Unable to determine (no explanation for clinical findings) (Last Revision: July 2017) unable to determine MTDD
[2020-03-25 17:42] LABS: Glucose,Whole Blood 158 mg/dL (75-99)
[2020-03-25 18:54] LABS: Glucose,Whole Blood 140 mg/dL (75-99)
[2020-03-25] MEDS: SODIUM CHLORIDE 0.9% 1,000 ML IV SCH (20:52)
[2020-03-25] MEDS: ATORVASTATIN 20 MG TAB OG-TUBE SCH (20:53)
[2020-03-25] MEDS: TAMSULOSIN 0.4 MG CAP.ER.24H PO SCH (20:53)
[2020-03-25 23:38] LABS: Glucose,Whole Blood 145 mg/dL (75-99)
[2020-03-26] MEDS: IPRATROPIUM-ALBUTEROL 3 ML NEB INHALATION SCH ×5 (00:07→19:59)
[2020-03-26] MEDS: INSULIN ASPART (NovoLOG) 100 UNIT/ML VIAL SQ SCH ×4 (00:30→18:45)
[2020-03-26] MEDS: PIPERACILLIN-TAZOBACTAM 3.375 GM in SODIUM CHLORIDE 0.9% 100 ML IVPB SCH ×4 (01:35→17:05)
[2020-03-26] MEDS: 1: MVI, ADULT NO.4 WITH VIT K 10 ML, TRACE (CONC-1ML/DOSE) 1 ML, SODIUM ACETATE 10 MEQ, IV SCH ×14 (02:48→22:41)
[2020-03-26 04:22] LABS: African American GFR (CKD) >90 (>60 ml/min/1.73 sqM); Anion Gap 3 mmol/L; Blood Urea Nitrogen 23 mg/dL (9-20); Calcium 8.3 mg/dL (8.4-10.2); Carbon Dioxide 24 mmol/L (22-30); Chloride 113 mmol/L (98-107); Glucose 129 mg/dL (74-99); Magnesium 2.1 mg/dL (1.6-2.3); Non-African American GFR(CKD) >90 (>60 ml/min/1.73 sqM); Phosphorus 4.2 mg/dL (2.5-4.5); Sodium 140 mmol/L (137-145)
[2020-03-26 04:23] LABS: Potassium 5.3 mmol/L (3.5-5.1)
[2020-03-26 04:35] LABS: Anisocytosis Slight; HCT 31.1 % (39.0-53.0); HGB 9.6 gm/dL (13.0-17.5); Hypochromasia Marked; MCH 30.8 pg (25.0-35.0); MCV 99.4 fL (80.0-100.0); Macrocytosis Slight; Mean Platelet Volume 10.9; Platelet Count 315 k/uL (150-450); RBC 3.13 m/uL (4.30-5.90); RDW 16.6 % (11.5-15.5); WBC 20.9 k/uL (3.8-10.6)
[2020-03-26 06:24] LABS: Glucose,Whole Blood 137 mg/dL (75-99)
[2020-03-26] MEDS: FERROUS SULFATE ORAL ELIXIR 300 MG/5 ML CUP PO SCH ×2 (06:26→17:05)
[2020-03-26] MEDS: HYDROCORTISONE SUCCINATE 100 MG/2 ML VIAL IV SCH ×3 (10:02→22:39)
[2020-03-26] MEDS: FOLIC ACID 1 MG TAB OG-TUBE SCH (10:03)
[2020-03-26] MEDS: PANTOPRAZOLE 40 MG/10 ML VIAL IVP SCH ×2 (10:03→22:40)
[2020-03-26] MEDS: THIAMINE 100 MG/ML 2 ML VIAL IVP SCH (10:03)
[2020-03-26] MEDS: ANIDULAFUNGIN 100 MG in SODIUM CHLORIDE 0.9% 100 ML IVPB SCH (10:03)
--- NOTE | 2020-03-26 10:42 | P.PN ---
Subjective Progress Note Date: 03/26/20 Principal diagnosis: Intermediate probability VQ scan, rule out possibility of pulmonary embolism The patient is seen today 03/26/2020 in follow-up in the intensive care unit. He is currently resting fairly comfortably in bed. He is maintaining O2 saturations in the 90s on trach collar at 35% FiO2. He is a MedSurg overflow currently. White count 20.9. Hemoglobin 9.6. Sodium 140. Potassium 5.3. Creatinine 0.33. He remains on bronchodilators, Zosyn, Eraxis, TPN and lipids. Continued on solu Cortef. Objective - Vital Signs Vital signs: Vital Signs Temp 96.7 F L 03/26/20 08:00 Pulse 96 03/26/20 09:34 Resp 20 03/26/20 08:00 BP 121/81 03/26/20 09:00 Pulse Ox 92 L 03/26/20 09:00 Intake & Output 03/25/20 03/26/20 03/26/20 18:59 06:59 18:59 Intake Total 1967.25 900 110 Output Total 350 1210 60 Balance 1617.25 -310 50 Weight 59.3 kg Intake: IV 1046 900 110 Anidulafungin 100 mg In 100 Sodium Chloride 0.9% 100 ml @ 84 mls/hr IVPB DAILY JOANA Rx#:[id number] Fat Emulsion 20% 250 ml 21 In Empty Bag 1 bag @ 21 mls/hr IV MoWeFr JOANA Rx#: [id number] MVI 605 660 110 Piperacillin-Tazobactam 3 100 100 .375 gm In Sodium Chloride 0.9% 100 ml @ 25 mls/hr IVPB Q8HR JOANA Rx# :[id number] Sodium Chloride 0.9% 1, 220 140 000 ml @ 20 mls/hr IV . Q24H JOANA Rx#:[id number] Intake, IV Titration 921.25 Amount Mvi, Adult No.4 with Vit 921.25 K 10 ml Trace (Conc-1Ml/ Dose) 1 ml Sodium Acetate 10 meq Potassium Acetate 30 meq Magnesium Sulfate gm 1 gm Potassium Phosphate 10 mmol In Amino Acids 5 %/Dextrose 20 % 1,000 ml @ 55 mls/hr IV .BY DURATION JOANA Rx#: [id number] Output: Gastric Drainage 800 Urine 350 410 60 Other: Voiding Method Indwelling Catheter Indwelling Catheter ABP, PAP, CO, CI - Last Documented Arterial Blood Pressure 126/63 - Exam GENERAL EXAM: Intubated sedated 64-year-old white male, remains on trach collar HEAD: Normocephalic/atraumatic. EYES: Normal reaction of pupils, equal size. Conjunctiva pink, sclera white. NOSE: Clear with pink turbinates. THROAT: No erythema or exudates. NECK: No masses, no JVD, no thyroid enlargement, no adenopathy. CHEST: No chest wall deformity. Symmetrical expansion. LUNGS: Equal air entry, bilateral scattered rhonchi, diminished at the bases. CVS: Regular rate and rhythm, normal S1 and S2, no gallops, no murmurs, no rubs ABDOMEN: Soft and less distended today., with postsurgical tenderness, less induration is noted in the periumbilical area. mid abdominal incision with yvonne intact, EXTREMITIES: No clubbing, 1+ lower extremity edema, patient has a weeping edema with the drainage from the catheter insertion sites no cyanosis, 2+ pulses and upper and lower extremities. MUSCULOSKELETAL: Could not be assessed. Patient is sedated. SPINE: No scoliosis or deformity SKIN: No rashes CENTRAL NERVOUS SYSTEM: Unable to assess, patient is sedated and intubated. No focal deficits, tone is normal in all 4 extremities. - Labs CBC & Chem 7: 03/26/20 03:15 03/26/20 03:15 Labs: Abnormal Lab Results - Last 24 Hours (Table) 03/25/20 03/25/20 03/25/20 Range/Units 17:40 17:57 23:36 WBC (3.8-10.6) k/uL RBC (4.30-5.90) m/uL Hgb (13.0-17.5) gm/dL Hct (39.0-53.0) % RDW (11.5-15.5) % Potassium (3.5-5.1) mmol/L Chloride (98-107) mmol/L BUN (9-20) mg/dL Creatinine (0.66-1.25) mg/dL Glucose (74-99) mg/dL POC Glucose (mg/dL) 158 H 140 H 145 H (75-99) mg/dL Calcium (8.4-10.2) mg/dL 03/26/20 03/26/20 03/26/20 Range/Units 03:15 03:15 06:23 WBC 20.9 H (3.8-10.6) k/uL RBC 3.13 L (4.30-5.90) m/uL Hgb 9.6 L (13.0-17.5) gm/dL Hct 31.1 L (39.0-53.0) % RDW 16.6 H (11.5-15.5) % Potassium 5.3 H (3.5-5.1) mmol/L Chloride 113 H (98-107) mmol/L BUN 23 H (9-20) mg/dL Creatinine 0.33 L (0.66-1.25) mg/dL Glucose 129 H (74-99) mg/dL POC Glucose (mg/dL) 137 H (75-99) mg/dL Calcium 8.3 L (8.4-10.2) mg/dL Assessment and Plan Assessment: #1. Acute hypoxic respiratory failure related to septic shock, with the suspicion of intra-abdominal source rule out possibility of intra-abdominal abscess. The patient had undergone a low anterior resection, takedown of splenic flexure and partial omentectomy on 02/07/2020 #2. Acute cardiac pulmonary arrest on 02/26/2020 related to septic shock, patient required a brief CPR, was emergently intubated and fluid resuscitated, recovered on 40% trach collar #3. Increased bibasilar opacities and new small bilateral pleural effusions on the chest x-ray, most likely fluid from the ascites fluid into the pleural space. #4. Abdominal pain and distention #5. Massive ascites secondary to liver cirrhosis #6. Non-anion gap metabolic acidosis related to septic shock, and has received IV fluids and bicarbonate infusion #7. Elevated d-dimer, nonspecific, doubt possibility of pulmonary embolism. CTA chest was suboptimal but did not reveal any evidence of central pulmonary embolism, VQ scan showed intermediate probability for pulmonary embolism, patient was found to have a new left leg DVT, was on Eliquis which we will place on hold right now in view of acute decompensation, and possible need for chicho gical intervention in view of septic shock, with a suspicion of intra-abdominal source #8 Diverticulitis, status post lower anterior resection, takedown of splenic flexure and partial omentectomy #9. Alcohol abuse with alcohol withdrawal #11. Recent history dark black stools the possibility of upper GI bleeding #12. Altered mental status, related to metabolic encephalopathy, neurology is f ollowing #13. History of diverticular disease #14. History of EtOH abuse #15 status post large volume paracentesis with 4.7 L removed from the peritoneal cavity. Plan: The patient was seen and evaluated by Dr. Pelaez The patient is a DO NOT RESUSCITATE/DO NOT intubate CODE STATUS Awaiting transfer to regular medical floor/ECF We will see the patient as needed I, the cosigning physician, performed a history & physical examination of the patient. Lungs sounds bilateral scattered rhonchi, diminished in the bases. Maintaining good O2 saturations in the 90s on 35 % FiO2 via the trach collar. I discussed the assessment and plan of care with my nurse practitioner, Ila strong. I attest to the above note as dictated by her.
[2020-03-26 11:22] LABS: Glucose,Whole Blood 117 mg/dL (75-99)
--- NOTE | 2020-03-26 11:37 | P.PN ---
Subjective Progress Note Date: 03/26/20 CHIEF COMPLAINT: Diverticulitis HISTORY OF PRESENT ILLNESS: Patient remains in the ICU. He is considered a MedSurg overflow. Patient is awake and following simple commands. He is on 35% trach collar. He is on TPN for nutrition support. Patient is not able to tolerate tube feedings due to aspirating. Abdomen is more distended. He has required multiple paracentesis during this admission. CODE STATUS is a DO NOT RESUSCITATE. Patient's overall condition is very poor and guarded. It appears that patient is to either transferred to a nursing facility with hospice or home with hospice awaiting patient's final decision. Afebrile. WBC 20 hemoglobin 9.6 PHYSICAL EXAM: VITAL SIGNS: Reviewed. GENERAL: Well-developed in no acute distress. HEENT: No sclera icterus. Extraocular movements grossly intact. Moist buccal mucosa. Head is atraumatic, normocephalic. ABDOMEN: distended Incision clean dry and intact. NEUROLOGIC: Patient is awake and able to open eyes. ASSESSMENT: 1. Cardiopulmonary arrest and acute hypoxic respiratory failure secondary to septic shock. 2. Diverticulitis status post lower anterior resection, takedown of splenic flexure and partial omentectomy on 02/07/2020 3. Patient's abdominal distention likely related to ileus, ascites from his liver cirrhosis and possible hernia. 4. Alcohol abuse with alcohol withdrawal 5. New left leg DVT during this admission. Unable to tolerate anticoagulation. He is now status post IVC filter placement 6. ileus 7. Black stools. Resolved. No evidence of upper GI bleed on EGD. EGD was normal 8. Altered mental status likely due to cardiac arrest and superimposed toxic metabolic encephalopathy. Followed by neurology 9. Possible aspiration pneumonia 10. Severe protein calorie malnutrition 11. Liver cirrhosis with abdominal ascites status post multiple paracentesis during this admission 12. Patient status post tracheostomy for acute hypoxic respiratory failure PLAN: -Awaiting patient's 's decision regarding hospice and discharge preference -Continue supportive care -Continue antibiotics -Continue TPN for nutrition support -Continue NG tube for decompression -Overall condition guarded Physician Civil Geotechnical Engineer note has been reviewed by physician. Signing provider agrees with the documented findings, assessment, and plan of care. Objective - Vital Signs Vital signs: Vital Signs Temp 96.7 F L 03/26/20 08:00 Pulse 96 03/26/20 09:34 Resp 20 03/26/20 08:00 BP 121/81 03/26/20 09:00 Pulse Ox 92 L 03/26/20 09:00 Intake & Output 03/25/20 03/26/20 03/26/20 18:59 06:59 18:59 Intake Total 1967.25 900 110 Output Total 350 1210 60 Balance 1617.25 -310 50 Weight 59.3 kg Intake: IV 1046 900 110 Anidulafungin 100 mg In 100 Sodium Chloride 0.9% 100 ml @ 84 mls/hr IVPB DAILY JOANA Rx#:[id number] Fat Emulsion 20% 250 ml 21 In Empty Bag 1 bag @ 21 mls/hr IV MoWeFr JOANA Rx#: [id number] MVI 605 660 110 Piperacillin-Tazobactam 3 100 100 .375 gm In Sodium Chloride 0.9% 100 ml @ 25 mls/hr IVPB Q8HR JOANA Rx# :[id number] Sodium Chloride 0.9% 1, 220 140 000 ml @ 20 mls/hr IV . Q24H JOANA Rx#:[id number] Intake, IV Titration 921.25 Amount Mvi, Adult No.4 with Vit 921.25 K 10 ml Trace (Conc-1Ml/ Dose) 1 ml Sodium Acetate 10 meq Potassium Acetate 30 meq Magnesium Sulfate gm 1 gm Potassium Phosphate 10 mmol In Amino Acids 5 %/Dextrose 20 % 1,000 ml @ 55 mls/hr IV .BY DURATION JOANA Rx#: [id number] Output: Gastric Drainage 800 Urine 350 410 60 Other: Voiding Method Indwelling Catheter Indwelling Catheter ABP, PAP, CO, CI - Last Documented Arterial Blood Pressure 126/63 - Labs CBC & Chem 7: 03/26/20 03:15 03/26/20 03:15 Labs: Abnormal Lab Results - Last 24 Hours (Table) 03/25/20 03/25/20 03/25/20 Range/Units 17:40 17:57 23:36 WBC (3.8-10.6) k/uL RBC (4.30-5.90) m/uL Hgb (13.0-17.5) gm/dL Hct (39.0-53.0) % RDW (11.5-15.5) % Potassium (3.5-5.1) mmol/L Chloride (98-107) mmol/L BUN (9-20) mg/dL Creatinine (0.66-1.25) mg/dL Glucose (74-99) mg/dL POC Glucose (mg/dL) 158 H 140 H 145 H (75-99) mg/dL Calcium (8.4-10.2) mg/dL 03/26/20 03/26/20 03/26/20 Range/Units 03:15 03:15 06:23 WBC 20.9 H (3.8-10.6) k/uL RBC 3.13 L (4.30-5.90) m/uL Hgb 9.6 L (13.0-17.5) gm/dL Hct 31.1 L (39.0-53.0) % RDW 16.6 H (11.5-15.5) % Potassium 5.3 H (3.5-5.1) mmol/L Chloride 113 H (98-107) mmol/L BUN 23 H (9-20) mg/dL Creatinine 0.33 L (0.66-1.25) mg/dL Glucose 129 H (74-99) mg/dL POC Glucose (mg/dL) 137 H (75-99) mg/dL Calcium 8.3 L (8.4-10.2) mg/dL 03/26/20 Range/Units 11:21 WBC (3.8-10.6) k/uL RBC (4.30-5.90) m/uL Hgb (13.0-17.5) gm/dL Hct (39.0-53.0) % RDW (11.5-15.5) % Potassium (3.5-5.1) mmol/L Chloride (98-107) mmol/L BUN (9-20) mg/dL Creatinine (0.66-1.25) mg/dL Glucose (74-99) mg/dL POC Glucose (mg/dL) 117 H (75-99) mg/dL Calcium (8.4-10.2) mg/dL
[2020-03-26] MEDS: NOREPINEPHRINE 8 MG in SODIUM CHLORIDE 0.9% 250 ML IV SCH (11:41)
[2020-03-26] MEDS: FAT EMULSION 20% 250 ML in EMPTY BAG 1 BAG IV SCH (17:05)
[2020-03-26 17:34] LABS: Glucose,Whole Blood 132 mg/dL (75-99)
[2020-03-26] MEDS: TAMSULOSIN 0.4 MG CAP.ER.24H PO SCH (22:39)
[2020-03-26] MEDS: ATORVASTATIN 20 MG TAB OG-TUBE SCH (22:40)
[2020-03-27] MEDS: INSULIN ASPART (NovoLOG) 100 UNIT/ML VIAL SQ SCH ×4 (00:07→18:56)
[2020-03-27] MEDS: SODIUM CHLORIDE 0.9% 1,000 ML IV SCH (00:17)
[2020-03-27] MEDS: PIPERACILLIN-TAZOBACTAM 3.375 GM in SODIUM CHLORIDE 0.9% 100 ML IVPB SCH ×4 (00:17→23:54)
[2020-03-27 04:54] LABS: Prothrombin Time 10.7 sec (9.0-12.0)
[2020-03-27 06:22] LABS: African American GFR (CKD) >90 (>60 ml/min/1.73 sqM); Anion Gap 1 mmol/L; Blood Urea Nitrogen 23 mg/dL (9-20); Calcium 8.3 mg/dL (8.4-10.2); Carbon Dioxide 24 mmol/L (22-30); Chloride 114 mmol/L (98-107); Glucose 142 mg/dL (74-99); Non-African American GFR(CKD) >90 (>60 ml/min/1.73 sqM); Phosphorus 3.9 mg/dL (2.5-4.5); Potassium 4.5 mmol/L (3.5-5.1); Sodium 139 mmol/L (137-145)
[2020-03-27] MEDS: IPRATROPIUM-ALBUTEROL 3 ML NEB INHALATION SCH ×4 (08:36→20:51)
[2020-03-27] MEDS: FOLIC ACID 1 MG TAB OG-TUBE SCH (09:42)
[2020-03-27] MEDS: PANTOPRAZOLE 40 MG/10 ML VIAL IVP SCH ×2 (09:42→20:48)
[2020-03-27] MEDS: ANIDULAFUNGIN 100 MG in SODIUM CHLORIDE 0.9% 100 ML IVPB SCH (09:42)
[2020-03-27] MEDS: FERROUS SULFATE ORAL ELIXIR 300 MG/5 ML CUP PO SCH ×2 (09:43→17:03)
[2020-03-27] MEDS: THIAMINE 100 MG/ML 2 ML VIAL IVP SCH (09:43)
[2020-03-27] MEDS: HYDROCORTISONE SUCCINATE 100 MG/2 ML VIAL IV SCH ×2 (09:43→20:49)
[2020-03-27 10:00] VITALS: BMI 19.8
--- NOTE | 2020-03-27 10:48 | P.PN ---
Subjective Progress Note Date: 03/27/20 Principal diagnosis: Intermediate probability VQ scan, rule out possibility of pulmonary embolism This is a 64-year-old white male patient status post low anterior resection for strictures and diverticular disease, and this is postoperative day #6. Following his surgery on February 08 patient had a thrombus discomfort within the distal popliteal vein in his left leg, on the liver night patient had a CT angiogram of the chest which was a suboptimal study and did not reveal any large saddle all of central pulmonary emboli. The computed tomography scan showed evidence of small bilateral pleural effusions and multifocal groundglass opacities that could relate to pulmonary edema and/or pneumonia. His chest x- ray from February 11 showed bilateral infiltrates that could be consistent with pneumonia or heart failure. VQ scan showed indeterminate probability for pulmonary embolism. Patient has been confused, apparently he does have history of chronic EtOH, but it has been 60 since his admission, he remains very confused, he is on 3 L of oxygen and the pulse ox of 95%, he was started on heparin infusion for DVT in his left leg. We did not think there was a pulmonar y embolism based on his workup. His brain CT showed no acute intracranial abnormality. In addition there is a possibility of GI bleeding as the patient has been passing some dark stools. Is not appear to be in any respiratory distress, he remains lethargic, confused. Neurology is following, EEGs in progress. Dr. Araujo is planning on EGD tomorrow for evaluation of black stools. On 02/14/2020 patient seen in follow-up on general medical surgical floor his heparin drip is off, his 0.9 normal saline running at 75 ML per hour, appears to be more awake on today's exam, although still confused, she is only oriented to percent, no agitation. No signs of respiratory difficulty, he is on 3 L of oxygen pulse ox is 95%, hemodynamically stable, his abdomen is slightly tender postsurgery, his incision covered with dressing, his been afebrile, breathing is nonlabored, lung sounds reveal a few basilar crackles, no rhonchi or wheezing. Surgery is planned and on EGD today, neurology is following, EEG revealed background slowing of moderate degree suggestive of generalized cerebral dysfunction related to toxic metabolic encephalopathy. Today's hemoglobin is 8.6, had one bowel movement this morning. On 02/15/2020 patient seen in follow-up on general medical surgical floor, patient had EGD done yesterday which did not reveal any active bleeding, patient was restarted on heparin infusion for evidence of DVT in his lower extremity, no worsening dyspnea, patient is still on and off lethargic, but appears to be in no acute distress. He is on 3 L of oxygen pulse ox of 95%, his been afebrile, completed chest pain. No hemoptysis. Today's hemoglobin is 9.0. On 02/25/2020 we were reconsulted in view of significant clinical deterioration last night, rapid response team was called, alva gama was activated at 0243 in the morning on 02/26/2020. Apparently patient was having ongoing abdominal pain for the past few days prior to the event, he was believed to have ileus. His abdominal CT of abdomen and pelvis was done on 02/19/2020 showing postoperative changes in the sigmoid colon, proximal to this level there was abnormal thickening of the right colon, some thickened small bowel loops were also present, no is no evidence of free air, there was evidence of increased amount of ascites. There was interval development of bilateral pleural effusions and associated atelectasis. Past few days patient also developed a low urine output urology also consulted on the case for difficult Lemus insertion and possible urinary retention. Yesterday on 02/25/2020 ultrasound abdomen showed moderate ascites in the right flank. His abdomen continued to be more distended and painful, patient was eating some oral intake, however his blood pressures were running on the lower side, his urine output continued to be low, there was paracentesis planned a possibility of ascites. Last night patient developed hypothermia, and hypotension. Patient became unresponsive, and there was no pal pable pulse. CPR was started and immediately patient became responsive, CPR was stopped, patient was emergently intubated placed on mechanical ventilator and transferred to the intensive care unit. ID service has been following, patient's antibiotic coverage includes daptomycin. This morning he seen in the intensive care unit, sedated, intubated, on assist-control mode of ventilation, with a rate of 16, tidal planning is 500, FiO2 of 50%, and PEEP of 5. This was blood gases showed pO2 of 88, pCO2 of 29, and pH is 7.34. Patient is hypotensive, he is requiring levo fed at 0.43 mics per kilo per minute over 25 mics per minute, Diprivan and is at 40 mics per kilo per minute, patient has rec eived fluid resuscitation, yesterday she had received 2 L of fluid from the surgical team earlier in the day, and he received additional 2 L bolus after his cardiac pulmonary arrest early this morning, his maintenance IV fluids are currently infusing at a rate of 75 ML per hour. Patient kidney to be hypotensive, we gave him an additional liter fluid bolus today, and she will be started on a vasopressin infusion for refractory hypotension. Blood cultures have been sent, pending at this time. Prior blood cultures and sputum culture. Patient's abdomen remains very tense, distended, firm, with the area of redness and discoloration, and induration near the mid abdominal surgical incision. Avinash srinivasan has a lot of generalized swelling, he is weeping from the catheter insertion sites. He had right femoral central line catheter placed by Dr. Jarrell at the bedside and a right radial art line placed for close hemodynamic monitoring. This morning's lab work has been reviewed showing squamous cell count of 21.8, hemoglobin of 8.9, sodium of 137, potassium is 4.1, chloride is 119, CO2 is 10, BUN is 10 and creatinine 0.64, patient was given 2 A of sodium bicarbonate. On 03/03/2020 patient seen in follow-up in the intensive care unit, he remains intubated, and sedated, on assist-control mode of ventilation, with a rate of 10, tidal lung is 500, FiO2 of 50% and PEEP of 5, this morning blood gases revealed pO2 of 116, pCO2 37, and pH of 7.51. His current IVs include 0.9 normal seen at a rate of 10 ML per hour, levothyroid is a 6 mics per minute, propofol is currently off, and patient is receiving nutritional support with vital AF 1.2 at a rate of 10 ML per hour. Today's chest x-ray shows stable diffuse interstitial pattern with bilateral infiltrates and pleural effusion that are stable in appearance. His labs have been reviewed showing with blood cell count of 13.8, hemoglobin of 8.9, sodium 144, potassium is 3.6, chloride is 113, and the rest of electrolytes and renal profile were unremarkable. Patient is passing some liquid green stools, abdomen is nontender, mid abdominal incision is clean dry and intact, he has been tolerating tube feedings. Patient is on antibiotics including daptomycin, Diflucan, and Zosyn On 03/04/2020 patient seen in follow-up in the intensive care unit, his been off all sedation for 48 hours, he remains very minimally responsive, she opens his eyes slightly to painful stimuli, still very drowsy, encephalopathic, remains on ventilator support, current vent settings are assist control mode of ventilation with a rate of 10, tidal legs 500, FiO2 of 40% and PEEP of 5, and dyspneic blood gases showed pO2 of 102, pCO2 34 and pH of 7.49. Patient is currently on 0.9 normal saline at rate of 100 ML per hour, levo fed is at 10 mics per minute, no other drips, vital AF for nutritional support at 17 with a goal 17. Has not been able to wean off the vasopressors, patient remains on Solu-Cortef Cortef at 50 mg every 12 hours, we'll adjust the dose to 26 hours. Patient is tolerating tube feedings, he is passing liquid bowel movements, fecal management system was inserted, is on antibiotics in the form of Zosyn and daptomycin. he has been afebrile, no new growth on his cultures. Abdomen is much less distended, is soft, his mid abdominal incision is clean dry and intact, yvonne are intact, Lemus catheter is in place patient is producing 15-35 ML per hour. Chest x-ray showing basilar atelectasis, probable left pleural effusion, and there is some improvement in aeration of the right lung base. Remains on on anticoagulation in the form of Lovenox 60 mg twice daily. In sinus mechanism on the monitor. Patient has significant amount of generalized edema in his upper and lower extremities, and truncal edema. On 2019 patient seen in follow-up in the intensive care unit, she remains intubated, she still very lethargic, his Diprivan and has been on hold for last 72 hours, current vent settings are assist-control with a rate of 10, tidal volume is 500, FiO2 40%, and PEEP of 5. Patient had pressure-support trials , she was placed on assist-control mode overnight. No acute events overnight, currently down to 3.5 mics per minute on the levo fed infusion, 0.9 normal saline at 100 ML per hour, remains on the nutritional support with vital AF at a rate of 17 with a goal a 17, tolerating tube feedings well, he is passing liquid stools, fecal management system is in place, in sinus mechanism, his been afebrile, remains on antibiotics . Blood culture, ascites fluid cultures have been negative, sputum was only positive for Pita, patient is covered with Zosyn, daptomycin and Diflucan. Abdomen is soft, nontender, demonstrates incisions clean dry and intact, yvonne are intact. Patient has significant generalized edema, but has been requiring vasopressor support. Renal function is within normal limits, today's labs have been reviewed, sodium is 145, potassium is 3.3, chloride is 118, BUN 17 creatinine 0.7 On 03/06/2020 patient remains lethargic, he withdraws to painful stimuli, his Diprivan has been on hold for last 4 days, he is not given any narcotics or sedatives, per nursing staff at times she opens eyes to voice, and is able to weakly squeeze hands on command, appears to be no acute distress, remains on assist control mode of ventilation with a rate of 10, tidal and is 500, FiO2 of 40% and PEEP of 5, this point his blood gases show pO2 117, pCO2 34, and pH of 7.45, FiO2 is down to 35%, his creatinine 0.9 normal seen at a rate of 40 more per hour, levo fed is at 3 mics per minute. 2 feedings are on hold for tracheostomy and PEG tube placement today, yesterday he had paracentesis at the bedside with removal of 6 L of straw-colored ascitic fluid. Brain CT was com pleted showing cerebral atrophy, no acute intracranial abnormality. No change from most prior CT of the brain from 03/04/2020. Today's labs have been reviewed showing white blood cell count of 16.4, hemoglobin of 8.8, sodium 146, potassium 3.5, chloride is 122, CO2 24, B1 17 creatinine 0.71. he is afebrile. No new growth on the cultures, remains on empiric antibiotics, daptomycin, Zosyn. On 03/07/2020 patient seen in follow-up in the intensive care unit. Yesterday he had his tracheostomy placed, this morning she remains on assist-control mode of ventilation with a rate of 10, tidal legs 500, FiO2 of 35% and PEEP of 5, this morning blood gases reveal pO2 of 99%, pCO2 31, and pH of 7.44. He remains quite encephalopathic, sleepy, withdraws from painful stimuli but he is unable to follow commands, he has a severe generalized weakness and swelling, he is unable to squeeze hands on command. Currently on 0.9 normal seen at a rate of 50 ML per hour, levo fed is at 0.06 mics per kilo per minute, no other drips, his tube feedings are on hold, yesterday PEG tube could not be placed related to abdominal wall edema, may have to place a Dobbhoff tube for tube feedings. Last night NG tube placement attempts were unsuccessful. Lung sounds are clear, diminished at the bases, his abdomen is soft, slightly tender, abdominal incision is clean dry and intact, yvonne are intact. Patient is status post large volume paracentesis the day before yesterday would removal of 6 L of ascitic fluid. Antibiotics in the form of daptomycin, fluconazole, and Zosyn. Patient has been afebrile, no new growth on the cultures. And is producing liquid stool, fecal management system is in place. On 03/17/2020 patient seen in follow-up in the intensive care unit, he remains encephalopathic, however he seems to be a bit more responsive to touch, and voice, he remains trached to the ventilator, on assist control mode of ventilation with a rate of 10, tidal volume is 500, FiO2 of 40% and PEEP of 9. His blood gas this morning revealed pO2 of 96, pCO2 of 30, and pH of 7.38 this was done and FiO2 of 40%. She remains on small dose of levo fed at 0.03 mics per kilo per minute, he has some IV fluids infusing in rate is 75 ML per hour. No other drips, remains on Zosyn for antibiotic coverage, in addition to your axis, his sputum culture was positive for Klebsiella pneumonia, and Pita albicans, blood cultures have been negative, he is some ascites fluid has shown no growth, he remains on TPN, his NG tube remains to low intermittent suction, she was still having increased gastric drainage and for that reason patient's tube feedings have been on hold, his abdomen becoming increasingly more distended, and today we will request for interventional radiology to proceed with the ultrasound-guided paracentesis. Patient remains very generally swallowing, with increased edema in his trunk, and upper and lower extremities, today's labs have been reviewed, showing left tonsil, 17.6, hemoglobin of 8.2, his platelet count was 185, sodium is 142, potassium 3.8, chloride was 121, CO2 was 18, BUN is 26 and creatinine 0.68. His chest x-ray today showed stable bilateral lower lobe infiltrate and small effusion. On 03/24/2020 patient seen in follow-up in the intensive care unit, is drowsy, but arousable, she remains on assist control mode of ventilation with a rate of 10, tidal legs 500, FiO2 of 40% and PEEP of 5, no blood gases today. Yesterday patient tolerated several hours of pressure control trials with pressure control of 5 and CPAP of 5. Was switched back to assist control mode of ventilation overnight. Vital signs are stable, sinus mechanism, slightly tachycardic on the monitor, IV 0.9 at 10 ML per hour, and TPN at 55 ML per hour, no vasoactive drips. Chest x-ray today, last chest x-ray was done on 03/22/2020, showing stable diffuse pleural parenchymal changes correlating to CHF. Today's labs have been reviewed showing white blood cell count of 15.3, hemoglobin of 8.9, sodium is 143, potassium is 4.5, chloride is 116, B1 is 22, creatinine 0.55. Patient remains on antibiotics in the form of Zosyn, and Eraxis evidence of Klebsiella pneumonia in the sputum, and tracheostomy insertion site. ID service is following, patient remains profoundly weak, his been requiring recurrent paracentesis. His has been at the bedside, and his been in communication with Dr. Jarrell on the regular basis. Patient CODE STATUS is DO NOT RESUSCITATE. She decided to go with hospice and take the patient home on oxygen. Hospice was consulted last night however has not been into see the patient yet, they're expected to come in today and evaluate the patient and make necessary arrangements for possible transition home. On 03/25/2020 patient seen in follow-up in intensive care unit, he is awake, he is following simple commands, she is on 35% trach collar, and his pulse ox is 98%, sinus mechanism, hemodynamically patient has been stable, his been afebrile, he is on TPN at a rate of 55 ML per hour, and 0.9 normal seen at a rate of 20 ML per hour. No new chest x-ray today, he has not been able to tolerate any tube feedings, his had 1.4 L in the gastric output from the NG tube for last 24 hours, his been requiring frequent paracentesis, his abdomen is slightly distended but nontender, incision is well-healed. Today's labs have been reviewed, showing white blood cell count 20, hemoglobin of 8.9, sodium is 141, potassium is 4.3, chloride is 114, CO2 of 25 mCi 21 creatinine 0.44. Patient has severe generalized weakness, he is unable to squeeze with his hands, he is unable to move his extremities. Hospice consultation is still pending, patient is expected to be seen by hospice, and transferred either to a nursing facility with hospice or home with hospice. He is to be supportively treated, with done antibiotics, IV fluids and breathing treatments. On 03/27/2020 patient is seen in follow-up in the intensive care unit, he remains on not 35% trach collar, he is awake and alert, he is able to provide some simple answers, he is mouthing words, but he is quite weak. His had no acute events overnight. O2 sat is 95-96%. His abdomen continues to be, a bit more distended every day, we ordered consultation to interventional radiology for ultrasound-guided paracentesis today. G-tube remains in place, no intermittent suction, and there has been 750 ML out of the NG tube in last 24 hours, patient still has not been fed through that NG tube, he is on TPN, as not been able to tolerate any tube feedings related to aspiration. No new chest x- ray today, today's labs have been reviewed, showing INR of 1, sodium is 139, potassium is 4.5, chloride is 114, B1 is 23 creatinine 0.37. Hospice has seen the patient, and currently hospice and social work is looking into placement into ECF under hospice Objective - Vital Signs Vital signs: Vital Signs Temp 97.6 F 03/27/20 07:00 Pulse 90 03/27/20 09:07 Resp 18 03/27/20 09:07 BP 114/76 03/27/20 09:07 Pulse Ox 96 03/27/20 09:07 Intake & Output 03/26/20 03/27/20 03/27/20 18:59 06:59 18:59 Intake Total 330 668 Output Total 260 1175 Balance 70 -507 Weight 59.3 kg Intake: IV 330 668 Fat Emulsion 20% 250 ml 63 In Empty Bag 1 bag @ 21 mls/hr IV [facility] Rx#: [id number] MVI 330 605 Output: Gastric Drainage 750 Urine 260 425 Other: Voiding Method Indwelling Catheter Indwelling Catheter ABP, PAP, CO, CI - Last Documented Arterial Blood Pressure 126/63 - Exam GENERAL EXAM: Awake, able to mouth words, 64-year-old white male, 35% trach collar with a pulse ox of 95% HEAD: Normocephalic/atraumatic. EYES: Normal reaction of pupils, equal size. Conjunctiva pink, sclera white. NOSE: Clear with pink turbinates. THROAT: No erythema or exudates. NECK: No masses, no JVD, no thyroid enlargement, no adenopathy. Midline tracheostomy in place, on trach collar 35%, with a pulse ox of 95% CHEST: No chest wall deformity. Symmetrical expansion. LUNGS: Equal air entry with no crackles, wheeze, rhonchi or dullness. CVS: Regular rate and rhythm, normal S1 and S2, no gallops, no murmurs, no rubs ABDOMEN: Slightly distended and firm on today's exam compared no rigidity, and abdominal incision is clean dry and intact, well approximated and healed, yvonne EXTREMITIES: No clubbing, 2+ upper and lower extremity edema, patient has a weeping edema with the drainage from the catheter insertion sites no cyanosis, 2+ pulses and upper and lower extremities. MUSCULOSKELETAL: Muscle strength and tone normal. SPINE: No scoliosis or deformity SKIN: No rashes CENTRAL NERVOUS SYSTEM: She is awake and alert, follows simple command, he is able to mouth words, but he is unable to move any of his extremities in view of severe generalized weakness No focal deficits, tone is normal in all 4 extremities. - Labs CBC & Chem 7: 03/26/20 03:15 03/27/20 05:31 Labs: Abnormal Lab Results - Last 24 Hours (Table) 03/26/20 03/26/20 03/27/20 Range/Units 11:21 17:32 05:31 Chloride 114 H (98-107) mmol/L BUN 23 H (9-20) mg/dL Creatinine 0.37 L (0.66-1.25) mg/dL Glucose 142 H (74-99) mg/dL POC Glucose (mg/dL) 117 H 132 H (75-99) mg/dL Calcium 8.3 L (8.4-10.2) mg/dL Assessment and Plan Plan: Assessment: #1. Acute hypoxic respiratory failure related to aspiration pneumonia and bilateral pleural effusions related to the ascites On 03/07/2020 patient remains trached to the mechanical ventilator on assist control mode of ventilation. Patient had a tracheostomy on 03/06/2020 On 03/25/2020 patient is on trach collar at 35% and he is satting about 95%, does not appear to be in any acute distress #2. Acute cardiac pulmonary arrest on 02/26/2020 related to septic shock, patient required a brief CPR, was emergently intubated and fluid resuscitated, requiring high dose of vasopressors including norepinephrine and vasopressin. Currently off all vasopressors #3. Increased bibasilar opacities and new small bilateral pleural effusions on the chest x-ray, related to fluid overload #4. Abdominal pain and distention, related to recurrent bowel obstruction, resolved, #5. Massive ascites, status post high-volume paracentesis, on 02/27/2020 with removal of 8 L of ascitic fluid, and repeat paracentesis on would removal of 6 L of fluid. Last paracentesis was on 03/21/2020 would removal of 5.3 L of ascitic fluid. #6. Non-anion gap metabolic acidosis related to septic shock, and has received IV fluids and bicarbonate infusion, resolved #7. Volume contraction alkalosis, secondary to paracentesis and diuretic therapy, resolved #8. Elevated d-dimer, nonspecific, doubt possibility of pulmonary embolism. CTA chest was suboptimal but did not reveal any evidence of central pulmonary embolism, VQ scan showed intermediate probability for pulmonary embolism, patient was found to have a new left leg DVT, was on Eliquis, she was discontinued in view of bleeding around the tracheostomy site. Patient had a IVC filter placed. #9. Diverticulitis, status post lower anterior resection, takedown of splenic flexure and partial omentectomy #10. Alcohol abuse with alcohol withdrawal #11. Recent history dark black stools the possibility of upper GI bleeding #12. Altered mental status, related to metabolic encephalopathy, neurology is following. On 03/07/2020 patient has been off Diprivan for the last 4 days, and he remains encephalopathic, sleepy, and unable to follow commands, withdraws from pain #13. History of diverticular disease #14. History of EtOH abuse #15. Suspect Klebsiella pneumonia pneumonia. Repeat sputum cultures from 03/19/2020 showed Klebsiella pneumonia again. Sensitive to Zosyn and patient remains on Zosyn #16. Severe generalized weakness related to critical illness polyneuropathy Plan: Continue with supportive medical treatment, patient is scheduled for ultrasound-guided paracentesis today. He has required paracentesis a regular basis every 7-10 days. he remains on TPN for nutritional support, has not been able to tolerate any tube feedings, [facility] floor overflow, remains on trach collar, tolerating it well so far, remains severely weak. Hospice has been consulted, and currently looking into ECF placement under hospice. I performed a history & physical examination of the patient and discussed their management with my nurse practitioner, Felipa Matute. I reviewed the nurse practitioner's note and agree with the documented findings and plan of care. Lung sounds are positive for clear breath sounds throughout the lung arias. The findings and the impression was discussed with the patient. I attest to the documentation by the nurse practitioner. Time with Patient: Less than 30
--- NOTE | 2020-03-27 12:42 | P.DS ---
Providers Date of admission: 02/07/20 08:00 Expected date of discharge: 03/27/20 Attending physician: Hiram Lee Consults: 02/07/20 11:56 Consult Physician Routine Consulting Provider: Alberto Dennis Consult Reason/Comments: med manage Do you want consulting provider notified?: Yes 02/09/20 18:01 Consult Physician Stat Consulting Provider: Laron Stewart Consult Reason/Comments: Hematology consult r/t DVT, epidural discontinued Do you want consulting provider notified?: Yes 02/11/20 08:53 Consult Physician Routine Consulting Provider: Kurt Joy Consult Reason/Comments: Tachycardia Do you want consulting provider notified?: Yes 02/11/20 14:46 Consult Physician Routine Consulting Provider: Jacque Dee Consult Reason/Comments: Sepsis Do you want consulting provider notified?: Yes 02/12/20 12:33 Consult Physician Urgent Consulting Provider: Sonia Laboy Consult Reason/Comments: confusion Do you want consulting provider notified?: Yes 02/12/20 14:30 Consult Physician Urgent Consulting Provider: Artemio Pelaez Consult Reason/Comments: possilbe PE Do you want consulting provider notified?: Yes 02/24/20 19:05 Consult Physician Routine Consulting Provider: Dimas Moreno Consult Reason/Comments: urinary retention,unable to place [place] Do you want consulting provider notified?: Yes 02/26/20 04:06 Consult Physician Stat Consulting Provider: Clara Menchaca Consult Reason/Comments: ICU management Do you want consulting provider notified?: Already Contacted 03/17/20 14:38 Consult Physician Routine Consulting Provider: Hamilton Villarreal Consult Reason/Comments: paracentesis care home Do you want consulting provider notified?: Already Contacted 03/19/20 12:20 Consult Physician Urgent Consulting Provider: Timi Myles Consult Reason/Comments: Placement of retreivable IVC filter, acute DVT,unable to be on antocoag Do you want consulting provider notified?: Yes Primary care physician: Emile Sarmiento Hospital Course: This a 64-year-old male with multiple comorbidities including alcoholism and liver failure. Patient underwent low anterior resection for diverticulitis with abscess. Patient had a prolonged hospital course. Please see hospital chart for details. Patient was discharged home to [facility]. Procedures: Low anterior resection, paracentesis Plan - Discharge Summary Discharge Rx Participant: No New Discharge Prescriptions: No Action Metoprolol Succinate [Toprol XL] 25 mg PO DAILY metroNIDAZOLE [Flagyl] 500 mg PO TID Ciprofloxacin HCl [Cipro] 500 mg PO BID Baclofen [Lioresal] 20 mg PO BID Discharge Medication List Baclofen [Lioresal] 20 mg PO BID 02/04/20 [History] Ciprofloxacin HCl [Cipro] 500 mg PO BID 02/04/20 [History] Metoprolol Succinate [Toprol XL] 25 mg PO DAILY 02/04/20 [History] metroNIDAZOLE [Flagyl] 500 mg PO TID 02/04/20 [History] Follow up Appointment(s)/Referral(s): Yohana Garcia, [NON-STAFF] - As Needed Sadiq Benjamin DO [Doctor of Osteopathic Medicine] - As Needed Discharge Disposition: [facility] TO [facility]
[2020-03-27] MEDS: TAMSULOSIN 0.4 MG CAP.ER.24H PO SCH (20:42)
[2020-03-27] MEDS: ATORVASTATIN 20 MG TAB OG-TUBE SCH (20:49)
[2020-03-28] MEDS: INSULIN ASPART (NovoLOG) 100 UNIT/ML VIAL SQ SCH ×3 (05:43→13:57)
[2020-03-28] MEDS: IPRATROPIUM-ALBUTEROL 3 ML NEB INHALATION SCH ×4 (07:48→20:26)
--- NOTE | 2020-03-28 09:04 | P.PN ---
Subjective Progress Note Date: 03/28/20 Principal diagnosis: Intermediate probability VQ scan, rule out possibility of pulmonary embolism The patient is seen today 03/28/2020 in follow-up in the intensive care unit. He is currently resting fairly comfortably in bed. He is maintaining O2 saturations in the 90s on trach collar at 28% FiO2. 139. Potassium 4.5. Creatinine 0.37. INR 1.0. Previous sputum culture positive for Klebsiella pneumoniae. Remains on Zosyn, bronchodilators, IV Solu-Cortef, Eraxis. The fernanda erazo is for home with hospice. Objective - Vital Signs Vital signs: Vital Signs Temp 96.5 F L 03/28/20 06:44 Pulse 83 03/28/20 08:02 Resp 18 03/28/20 06:44 BP 99/66 03/28/20 06:44 Pulse Ox 90 L 03/28/20 07:48 Intake & Output 03/27/20 03/28/20 03/28/20 18:59 06:59 18:59 Intake Total 270 0 Output Total 950 250 Balance -680 -250 Weight 59.3 kg Intake: IV 270 0 Fat Emulsion 20% 250 ml 0 In Empty Bag 1 bag @ 21 mls/hr IV MoWeFr [facility] Rx#: [id number] MVI 110 0 Sodium Chloride 0.9% 1, 160 000 ml @ 20 mls/hr IV . Q24H [facility] Rx#:[id number] Output: Gastric Drainage 750 Urine 200 250 Other: Voiding Method Indwelling Catheter Indwelling Catheter ABP, PAP, CO, CI - Last Documented Arterial Blood Pressure 126/63 - Exam GENERAL EXAM: Awake, able to mouth words, 64-year-old white male, 28% trach collar with a pulse ox of 95% HEAD: Normocephalic/atraumatic. EYES: Normal reaction of pupils, equal size. Conjunctiva pink, sclera white. NOSE: Clear with pink turbinates. THROAT: No erythema or exudates. NECK: No masses, no JVD, no thyroid enlargement, no adenopathy. Midline tracheo stomy in place, on trach collar 35%, with a pulse ox of 95% CHEST: No chest wall deformity. Symmetrical expansion. LUNGS: Equal air entry with no crackles, wheeze, rhonchi or dullness. CVS: Regular rate and rhythm, normal S1 and S2, no gallops, no murmurs, no rubs ABDOMEN: Slightly distended and firm on today's exam compared no rigidity, and abdominal incision is clean dry and intact, well approximated and healed, yvonne EXTREMITIES: No clubbing, 2+ upper and lower extremity edema, patient has a weeping edema with the drainage from the catheter insertion sites no cyanosis, 2+ pulses and upper and lower extremities. MUSCULOSKELETAL: Muscle strength and tone normal. SPINE: No scoliosis or deformity SKIN: No rashes CENTRAL NERVOUS SYSTEM: She is awake and alert, follows simple command, he is able to mouth words, but he is unable to move any of his extremities in view of severe generalized weakness No focal deficits, tone is normal in all 4 extremities. - Labs CBC & Chem 7: 03/26/20 03:15 03/27/20 05:31 Assessment and Plan Assessment: 1 Acute hypoxic respiratory failure related to septic shock, with the suspicion of intra-abdominal source rule out possibility of intra-abdominal abscess. The patient had undergone a low anterior resection, takedown of splenic flexure and partial omentectomy on 02/07/2020 2 Acute cardiac pulmonary arrest on 02/26/2020 related to septic shock, patient required a brief CPR, was emergently intubated and fluid resuscitated, recovered on 40% trach collar 3 Increased bibasilar opacities and new small bilateral pleural effusions on the chest x-ray, most likely fluid from the ascites fluid into the pleural space. 4 Abdominal pain and distention 5 Massive ascites secondary to liver cirrhosis 6 Non-anion gap metabolic acidosis related to septic shock, and has received IV fluids and bicarbonate infusion 7 Elevated d-dimer, nonspecific, doubt possibility of pulmonary embolism. CTA chest was suboptimal but did not reveal any evidence of central pulmonary embolism, VQ scan showed intermediate probability for pulmonary embolism, patient was found to have a new left leg DVT, was on Eliquis which we will place on hold right now in view of acute decompensation, and possible need for surgical intervention in view of septic shock, with a suspicion of intra- abdominal source 8 Diverticulitis, status post lower anterior resection, takedown of splenic flexure and partial omentectomy 9 Alcohol abuse with alcohol withdrawal 10 Recent history dark black stools the possibility of upper GI bleeding 11 Altered mental status, related to metabolic encephalopathy, neurology is following 12 History of diverticular disease 13 History of EtOH abuse 14 Status post large volume paracentesis on multiple occasions Plan: The patient was seen and evaluated by Dr. Pelaez The patient is a DO NOT RESUSCITATE/DO NOT intubate CODE STATUS Awaiting transfer to home with hospice We will see the patient as needed I, the cosigning physician, performed a history & physical examination of the patient. Lungs sounds bilateral scattered rhonchi, diminished in the bases. Maintaining good O2 saturations in the 90s on 28 % FiO2 via the trach collar. I discussed the assessment and plan of care with my nurse practitioner, Ila Keene. I attest to the above note as dictated by her.
[2020-03-28] MEDS: PIPERACILLIN-TAZOBACTAM 3.375 GM in SODIUM CHLORIDE 0.9% 100 ML IVPB SCH (09:27)
[2020-03-28] MEDS: FOLIC ACID 1 MG TAB OG-TUBE SCH (09:27)
[2020-03-28] MEDS: FERROUS SULFATE ORAL ELIXIR 300 MG/5 ML CUP PO SCH ×2 (09:27→21:32)
[2020-03-28] MEDS: ANIDULAFUNGIN 100 MG in SODIUM CHLORIDE 0.9% 100 ML IVPB SCH (09:27)
[2020-03-28] MEDS: THIAMINE 100 MG/ML 2 ML VIAL IVP SCH (09:28)
[2020-03-28] MEDS: HYDROCORTISONE SUCCINATE 100 MG/2 ML VIAL IV SCH ×2 (09:28→21:31)
[2020-03-28] MEDS: PANTOPRAZOLE 40 MG/10 ML VIAL IVP SCH ×2 (09:28→20:23)
[2020-03-28] MEDS ORDERED: DEXTROSE 50% SYRINGE 50 ML IVP STA (13:15)
[2020-03-28] MEDS: ATORVASTATIN 20 MG TAB OG-TUBE SCH (21:32)
[2020-03-28] MEDS: TAMSULOSIN 0.4 MG CAP.ER.24H PO SCH (21:32)
[2020-03-29] MEDS: PIPERACILLIN-TAZOBACTAM 3.375 GM in SODIUM CHLORIDE 0.9% 100 ML IVPB SCH ×6 (00:35→16:16)
[2020-03-29] MEDS: INSULIN ASPART (NovoLOG) 100 UNIT/ML VIAL SQ SCH ×5 (05:09→17:56)
[2020-03-29] MEDS: ANIDULAFUNGIN 100 MG in SODIUM CHLORIDE 0.9% 100 ML IVPB SCH (08:28)
[2020-03-29] MEDS: FERROUS SULFATE ORAL ELIXIR 300 MG/5 ML CUP PO SCH ×2 (08:32→16:16)
[2020-03-29] MEDS: HYDROCORTISONE SUCCINATE 100 MG/2 ML VIAL IV SCH ×2 (08:32→20:36)
[2020-03-29] MEDS: PANTOPRAZOLE 40 MG/10 ML VIAL IVP SCH ×2 (08:32→20:36)
[2020-03-29] MEDS: THIAMINE 100 MG/ML 2 ML VIAL IVP SCH (08:34)
[2020-03-29] MEDS: FOLIC ACID 1 MG TAB OG-TUBE SCH (08:34)
[2020-03-29] MEDS: IPRATROPIUM-ALBUTEROL 3 ML NEB INHALATION SCH ×4 (09:29→19:53)
--- NOTE | 2020-03-29 12:50 | P.PN ---
Subjective Progress Note Date: 03/29/20 CHIEF COMPLAINT: Diverticulitis HISTORY OF PRESENT ILLNESS: The patient is a 64-year-old male with prolonged hospital course including sigmoid colectomy for diverticulitis, lower anterior resection, abdominal ascites, DVT, cardiac arrest, and trach. He is DO NOT RESUSCITATE and no CODE STATUS. He was transferred from ICU to the floor under hospice care. I was notified by nursing that hospice team has yet to evaluate the patient. Patient was discharged 03/27/2022 to hospice care. Patient's TPN and supportive measures were curtailed after discharge from the ICU. Additionally, patient's nurse notified hospice care team as management has been delayed due to recent holidays including [place]. Patient being supported on trach collar. He has a nasogastric tube. ROS: History of cardiac arrest, inadequate nutrition intake. PHYSICAL EXAM: VITAL SIGNS: Reviewed CONSTITUTIONAL: Well developed and in no acute distress. EYES: Conjuctivae without sclera icterus. HEAD, EARS, NOSE, THROAT: Dry buccal mucosa. Head is atraumatic, normocephalic. NG tube present NECK: Supple. Trach site intact. RESPIRATORY: On f trach collar CARDIOVASCULAR: Palpable 2+ radial pulses. ABDOMEN: Dressings intact. MUSCULOSKELETAL: No gross deformity of the lower extremities noted. No clubbing. No cyanosis. CLINICAL LABS: No new labs ASSESSMENT: 1. Diverticulitis 2. Status post low anterior resection 3. Alcoholism 4. Ascites 5. Leukocytosis. 6. Abdominal wall cellulitis 7. Sepsis 8. Hypoxic respiratory failure 9. Pulmonary embolism PLAN: 1. During hospitalization, multiple referrals and consultations to hospice were made at least 3 identified by his present nurse. Patient was discharged to hospice pending follow-up for hospice care. 2. In the interim, comfort care measures with oral swabs, pain medications as needed 3. Patient's nutrition was being maintained via TPN. Objective - Vital Signs Vital signs: Vital Signs Temp 97.4 F L 03/29/20 08:00 Pulse 96 03/29/20 09:43 Resp 18 03/29/20 08:00 BP 112/73 03/29/20 08:00 Pulse Ox 97 03/29/20 02:30 Intake & Output 03/28/20 03/29/20 03/29/20 18:59 06:59 18:59 Intake Total 300 380 Output Total 200 1100 100 Balance 100 -720 -100 Intake: IV 200 160 Anidulafungin 100 mg In 100 Sodium Chloride 0.9% 100 ml @ 84 mls/hr IVPB DAILY [facility] Rx#:[id number] Sodium Chloride 0.9% 1, 100 160 000 ml @ 20 mls/hr IV . Q24H [facility] Rx#:[id number] Intake, IV Titration 100 100 Amount Piperacillin-Tazobactam 3 100 100 .375 gm In Sodium Chloride 0.9% 100 ml @ 25 mls/hr IVPB Q8HR [facility] Rx# :[id number] Other 120 Output: Gastric Drainage 700 100 Urine 100 400 Stool 100 Other: Voiding Method Indwelling Catheter Indwelling Catheter Indwelling Catheter ABP, PAP, CO, CI - Last Documented Arterial Blood Pressure 126/63 - Labs CBC & Chem 7: 03/26/20 03:15 03/27/20 05:31 Assessment and Plan (1) Diverticulitis Current Visit: Yes Status: Acute Code(s): K57.92 - DVTRCLI OF INTEST, PART UNSP, W/O PERF OR ABSCESS W/O BLEED SNOMED Code(s): 757245242 (2) Ascites Current Visit: Yes Status: Acute Code(s): R18.8 - OTHER ASCITES SNOMED Code(s): 950456156 (3) Alcoholism Current Visit: Yes Status: Acute Code(s): F10.20 - ALCOHOL DEPENDENCE, UNCOMPLICATED SNOMED Code(s): 9533614 (4) Delirium tremens Current Visit: Yes Status: Acute Code(s): F10.231 - ALCOHOL DEPENDENCE WITH WITHDRAWAL DELIRIUM SNOMED Code(s): 8728034 (5) Cardiac arrest Current Visit: Yes Status: Acute Code(s): I46.9 - CARDIAC ARREST, CAUSE UNSPECIFIED SNOMED Code(s): 507961724 (6) Klebsiella pneumonia Current Visit: Yes Status: Acute Code(s): J15.0 - PNEUMONIA DUE TO KLEBSIELL A PNEUMONIAE SNOMED Code(s): 09481042 (7) Pulmonary embolism Current Visit: Yes Status: Acute Code(s): I26.99 - OTHER PULMONARY EMBOLISM WITHOUT ACUTE COR PULMONALE SNOMED Code(s): 88492815
[2020-03-29] MEDS: MORPHINE SULFATE 2 MG/ML SYRINGE IVP PRN (16:18)
[2020-03-29] MEDS ORDERED: MVI, ADULT NO.4 WITH VIT K 10 ML, TRACE (CONC-1ML/DOSE) 1 ML, SODIUM ACETATE 10 MEQ, PO... IV ONE ×7 (17:30)
[2020-03-29] MEDS: TAMSULOSIN 0.4 MG CAP.ER.24H PO SCH (20:37)
[2020-03-29] MEDS: ATORVASTATIN 20 MG TAB OG-TUBE SCH (20:37)
[2020-03-30] MEDS: INSULIN ASPART (NovoLOG) 100 UNIT/ML VIAL SQ SCH ×5 (00:49→23:36)
[2020-03-30] MEDS: PIPERACILLIN-TAZOBACTAM 3.375 GM in SODIUM CHLORIDE 0.9% 100 ML IVPB SCH ×4 (00:51→23:59)
[2020-03-30] MEDS: ANIDULAFUNGIN 100 MG in SODIUM CHLORIDE 0.9% 100 ML IVPB SCH (08:15)
[2020-03-30] MEDS: HYDROCORTISONE SUCCINATE 100 MG/2 ML VIAL IV SCH ×2 (08:20→20:21)
[2020-03-30] MEDS: FERROUS SULFATE ORAL ELIXIR 300 MG/5 ML CUP PO SCH ×2 (08:20→16:55)
[2020-03-30] MEDS: PANTOPRAZOLE 40 MG/10 ML VIAL IVP SCH ×2 (08:20→20:19)
[2020-03-30] MEDS: THIAMINE 100 MG/ML 2 ML VIAL IVP SCH (08:21)
[2020-03-30] MEDS: FOLIC ACID 1 MG TAB OG-TUBE SCH (08:21)
[2020-03-30] MEDS: IPRATROPIUM-ALBUTEROL 3 ML NEB INHALATION SCH ×4 (08:51→21:15)
[2020-03-30 09:27] LABS: Glucose,Whole Blood 82 mg/dL (75-99)
[2020-03-30 09:27] LABS: Glucose,Whole Blood 79 mg/dL (75-99)
[2020-03-30 09:27] LABS: Glucose,Whole Blood 75 mg/dL (75-99)
[2020-03-30 09:29] LABS: Glucose,Whole Blood 83 mg/dL (75-99)
[2020-03-30 09:30] LABS: Glucose,Whole Blood 180 mg/dL (75-99)
[2020-03-30 09:30] LABS: Glucose,Whole Blood 138 mg/dL (75-99)
[2020-03-30 09:43] LABS: Glucose,Whole Blood 110 mg/dL (75-99)
[2020-03-30 09:43] LABS: Glucose,Whole Blood 67 mg/dL (75-99)
[2020-03-30 09:43] LABS: Glucose,Whole Blood 114 mg/dL (75-99)
[2020-03-30 09:43] LABS: Glucose,Whole Blood 86 mg/dL (75-99)
[2020-03-30 09:43] LABS: Glucose,Whole Blood 81 mg/dL (75-99)
[2020-03-30 09:43] LABS: Glucose,Whole Blood 152 mg/dL (75-99)
[2020-03-30 09:43] LABS: Glucose,Whole Blood 80 mg/dL (75-99)
[2020-03-30 09:43] LABS: Glucose,Whole Blood 105 mg/dL (75-99)
[2020-03-30 09:43] LABS: Glucose,Whole Blood 77 mg/dL (75-99)
[2020-03-30] MEDS: MORPHINE SULFATE 2 MG/ML SYRINGE IVP PRN ×2 (10:27→14:50)
--- NOTE | 2020-03-30 10:59 | P.PN ---
Subjective Progress Note Date: 03/30/20 CHIEF COMPLAINT: Diverticulitis HISTORY OF PRESENT ILLNESS: The patient is a 64-year-old male with prolonged hospital course including sigmoid colectomy for diverticulitis, lower anterior resection, abdominal ascites, DVT, cardiac arrest, and trach. He is DO NOT RESUSCITATE and no CODE STATUS. Since transfer from the ICU, he was discharged to hospice care 03/27/2020. I was notified by the case loader operator regarding his hospice care is deferred pending his who has yet to sign acceptance of hospice care. Patient otherwise is awake and alert during myself and nurse assessment. ROS: History of cardiac arrest, inadequate nutrition intake. PHYSICAL EXAM: VITAL SIGNS: Reviewed CONSTITUTIONAL: Well developed and in no acute distress. EYES: Conjuctivae without sclera icterus. HEAD, EARS, NOSE, THROAT: Dry buccal mucosa. Head is atraumatic, normocephalic. NG tube present NECK: Supple. Trach site intact. RESPIRATORY: On trach collar CARDIOVASCULAR: Palpable 2+ radial pulses. ABDOMEN: Dressings intact. MUSCULOSKELETAL: No gross deformity of the lower extremities noted. No clubbi ng. No cyanosis. SKIN: Poor skin turgor CLINICAL LABS: No new labs ASSESSMENT: 1. Diverticulitis 2. Status post low anterior resection 3. Alcoholism 4. Ascites 5. Leukocytosis. 6. Abdominal wall cellulitis 7. Sepsis 8. Hypoxic respiratory failure 9. Pulmonary embolism PLAN: 1. Will continue TPN and supportive measures. 2. Hospice pending decision. Objective - Vital Signs Vital signs: Vital Signs Temp 97.6 F 03/30/20 08:00 Pulse 100 03/30/20 09:06 Resp 18 03/30/20 08:00 BP 105/68 03/30/20 08:00 Pulse Ox 97 03/30/20 08:00 Intake & Output 03/29/20 03/30/20 03/30/20 18:59 06:59 18:59 Intake Total 560 Output Total 550 550 Balance -550 10 Weight 59.3 kg Intake: IV 320 Sodium Chloride 0.9% 1, 320 000 ml @ 20 mls/hr IV . Q24H [facility] Rx#:[id number] Intake, IV Titration 240 Amount Mvi, Adult No.4 with Vit 240 K 10 ml Trace (Conc-1Ml/ Dose) 1 ml Sodium Acetate 10 meq Potassium Acetate 30 meq Magnesium Sulfate gm 1 gm Potassium Phosphate 10 mmol In Amino Acids 5 %/Dextrose 20 % 1,000 ml @ 30 mls/hr IV .Q24H [facility] Rx#: [id number] Tube Feeding 0 Output: Gastric Drainage 400 300 Urine 150 250 Other: Voiding Method Indwelling Catheter Indwelling Catheter # Voids 1 ABP, PAP, CO, CI - Last Documented Arterial Blood Pressure 126/63 - Labs CBC & Chem 7: 03/26/20 03:15 03/27/20 05:31 Labs: Abnormal Lab Results - Last 24 Hours (Table) 03/26/20 03/27/20 03/27/20 Range/Units 23:58 05:14 12:39 POC Glucose (mg/dL) 114 H 152 H 105 H (75-99) mg/dL 03/28/20 03/28/20 03/29/20 Range/Units 13:12 14:21 23:08 POC Glucose (mg/dL) 67 L 110 H 138 H (75-99) mg/dL 03/30/20 Range/Units 05:38 POC Glucose (mg/dL) 180 H (75-99) mg/dL Assessment and Plan (1) Diverticulitis Current Visit: Yes Status: Acute Code(s): K57.92 - DVTRCLI OF INTEST, PART UNSP, W/O PERF OR ABSCESS W/O BLEED SNOMED Code(s): 721224940 (2) Ascites Current Visit: Yes Status: Acute Code(s): R18.8 - OTHER ASCITES SNOMED Code(s): 651511614 (3) Alcoholism Current Visit: Yes Status: Acute Code(s): F10.20 - ALCOHOL DEPENDENCE, UNCOMPLICATED SNOMED Code(s): 9810414 (4) Delirium tremens Current Visit: Yes Status: Acute Code(s): F10.231 - ALCOHOL DEPENDENCE WITH WITHDRAWAL DELIRIUM SNOMED Code(s): 2411814 (5) Cardiac arrest Current Visit: Yes Status: Acute Code(s): I46.9 - CARDIAC ARREST, CAUSE UNSPECIFIED SNOMED Code(s): 120696058 (6) Klebsiella pneumonia Current Visit: Yes Status: Acute Code(s): J15.0 - PNEUMONIA DUE TO KLEBSIELLA PNEUMONIAE SNOMED Code(s): 64110903 (7) Pulmonary embolism Current Visit: Yes Status: Acute Code(s): I26.99 - OTHER PULMONARY EMBOLISM WITHOUT ACUTE COR PULMONALE SNOMED Code(s): 65403596
[2020-03-30 11:46] LABS: Glucose,Whole Blood 141 mg/dL (75-99)
[2020-03-30 13:05] LABS: African American GFR (CKD) >90 (>60 ml/min/1.73 sqM); Anion Gap 4 mmol/L; Blood Urea Nitrogen 16 mg/dL (9-20); Calcium 8.3 mg/dL (8.4-10.2); Carbon Dioxide 25 mmol/L (22-30); Chloride 118 mmol/L (98-107); Glucose 166 mg/dL (74-99); Magnesium 1.9 mg/dL (1.6-2.3); Non-African American GFR(CKD) >90 (>60 ml/min/1.73 sqM); Phosphorus 3.1 mg/dL (2.5-4.5); Potassium 3.2 mmol/L (3.5-5.1); Sodium 147 mmol/L (137-145); Triglycerides 92 mg/dL (<150)
[2020-03-30] MEDS: POTASSIUM CHLORIDE 20 MEQ in WATER FOR INJECTION 1 100ML.BAG IVPB SCH ×2 (14:52→16:55)
[2020-03-30 17:00] LABS: Glucose,Whole Blood 145 mg/dL (75-99)
[2020-03-30] MEDS: TAMSULOSIN 0.4 MG CAP.ER.24H PO SCH (20:19)
[2020-03-30] MEDS: ATORVASTATIN 20 MG TAB OG-TUBE SCH (20:19)
[2020-03-30] MEDS: 1: MVI, ADULT NO.4 WITH VIT K 10 ML, TRACE (CONC-1ML/DOSE) 1 ML, SODIUM ACETATE 10 MEQ, IV SCH ×14 (22:01→22:03)
[2020-03-30 22:46] LABS: Glucose,Whole Blood 121 mg/dL (75-99)
[2020-03-31 05:00] LABS: Glucose,Whole Blood 139 mg/dL (75-99)
[2020-03-31] MEDS: INSULIN ASPART (NovoLOG) 100 UNIT/ML VIAL SQ SCH ×2 (05:38→12:52)
[2020-03-31] MEDS: IPRATROPIUM-ALBUTEROL 3 ML NEB INHALATION SCH ×2 (07:31→12:14)
[2020-03-31 07:53] VITALS: BP 116/72; PULSE 94; RESP 17; TEMP 97.4
[2020-03-31] MEDS: PANTOPRAZOLE 40 MG/10 ML VIAL IVP SCH (08:07)
[2020-03-31] MEDS: THIAMINE 100 MG/ML 2 ML VIAL IVP SCH (08:07)
[2020-03-31] MEDS: FERROUS SULFATE ORAL ELIXIR 300 MG/5 ML CUP PO SCH (08:07)
[2020-03-31] MEDS: ANIDULAFUNGIN 100 MG in SODIUM CHLORIDE 0.9% 100 ML IVPB SCH (08:09)
[2020-03-31] MEDS: HYDROCORTISONE SUCCINATE 100 MG/2 ML VIAL IV SCH (08:09)
[2020-03-31] MEDS: FOLIC ACID 1 MG TAB OG-TUBE SCH (08:09)
[2020-03-31] MEDS ORDERED: FAT EMULSION 20% 250 ML IV SCH (09:00)
[2020-03-31] MEDS: PIPERACILLIN-TAZOBACTAM 3.375 GM in SODIUM CHLORIDE 0.9% 100 ML IVPB SCH (09:46)
[2020-03-31 09:49] LABS: African American GFR (CKD) 146.5 (60.0-200.0); Anion Gap 5.2 mmol/L (4.00-12.00); BUN/Creat Ratio 42.5 Ratio (12.00-20.00); Calcium 8.1 mg/dL (8.7-10.3); Carbon Dioxide 21.8 mmol/L (21.6-31.8); Magnesium 1.6 mg/dL (1.5-2.4); Non-African American GFR(CKD) 126.4 (60.0-200.0); Phosphorus 2.4 mg/dL (2.4-5.1); Potassium 3.8 mmol/L (3.5-5.5)
[2020-03-31] MEDS: 1: MVI, ADULT NO.4 WITH VIT K 10 ML, TRACE (CONC-1ML/DOSE) 1 ML, SODIUM ACETATE 10 MEQ, IV SCH ×7 (14:12)
--- NOTE | 2020-04-03 11:48 | US ---
Ultrasound-guided paracentesis. DATE OF EXAM: 04/02/2020 CLINICAL HISTORY: Ascites The procedure was discussed with the patient. The risks, complications, benefits, and alternatives we re discussed and any questions were answered. Informed consent was obtained. The patient was placed s upine on the ultrasound table and prepped and draped in the usual sterile fashion. All elements of maximal barrier technique were utilized. Under ultrasound guidance, access into the right lower quadrant was obtained, via the paracentesis catheter system and direct ultrasound guidanc e. Approximately 4.5 liters of straw-colored fluid was removed. The patient was stable throughout the pr ocedure and remained stable upon discharge from Department of Radiology. IMPRESSION: Successful paracentesis under ultrasound guidance.
== END 2020-03-31 15:13 | disposition hospice, inpatient (51) | DRG 3 ==
LOC: 2ORMAIN 08:00 → 4SSUR 18:15 → 2SICU 02-26 03:16 → 5NMEDONC 03-28 18:16
PROVIDERS: ADMIT Surgery; ATTEND Surgery
PROC: 0DTG0ZZ Resection of Left Large Intestine, Open Approach (ICD-10-PCS; 2020-02-07)
PROC: 0DBU0ZZ Excision of Omentum, Open Approach (ICD-10-PCS; 2020-02-07)
PROC: 0DTN0ZZ Resection of Sigmoid Colon, Open Approach (ICD-10-PCS; 2020-02-07)
PROC: 0DJ08ZZ Inspection of Upper Intestinal Tract, Via Natural or Artificial Opening Endoscopic (ICD-10-PCS; 2020-02-14)
PROC: 0TJB8ZZ Inspection of Bladder, Via Natural or Artificial Opening Endoscopic (ICD-10-PCS; 2020-02-24)
PROC: 0BH17EZ Insertion of Endotracheal Airway into Trachea, Via Natural or Artificial Opening (ICD-10-PCS; 2020-02-26)
PROC: 5A1955Z Respiratory Ventilation, Greater than 96 Consecutive Hours (ICD-10-PCS; 2020-02-26)
PROC: 5A12012 Performance of Cardiac Output, Single, Manual (ICD-10-PCS; 2020-02-26)
PROC: 02HV33Z Insertion of Infusion Device into Superior Vena Cava, Percutaneous Approach (ICD-10-PCS; 2020-02-26)
PROC: 4A133B1 Monitoring of Arterial Pressure, Peripheral, Percutaneous Approach (ICD-10-PCS; 2020-02-26)
PROC: 03HY32Z Insertion of Monitoring Device into Upper Artery, Percutaneous Approach (ICD-10-PCS; 2020-02-26)
PROC: 4A133J1 Monitoring of Arterial Pulse, Peripheral, Percutaneous Approach (ICD-10-PCS; 2020-02-26)
PROC: 0W9G3ZZ Drainage of Peritoneal Cavity, Percutaneous Approach (ICD-10-PCS; 2020-02-26)
PROC: 3E033XZ Introduction of Vasopressor into Peripheral Vein, Percutaneous Approach (ICD-10-PCS; 2020-02-26)
PROC: 0W9G3ZZ Drainage of Peritoneal Cavity, Percutaneous Approach (ICD-10-PCS; 2020-02-27)
PROC: 0W9G3ZZ Drainage of Peritoneal Cavity, Percutaneous Approach (ICD-10-PCS; 2020-03-05)
PROC: 0B110F4 Bypass Trachea to Cutaneous with Tracheostomy Device, Open Approach (ICD-10-PCS; principal; 2020-03-06 11:05)
PROC: 02HV33Z Insertion of Infusion Device into Superior Vena Cava, Percutaneous Approach (ICD-10-PCS; 2020-03-07)
PROC: 0W9G3ZZ Drainage of Peritoneal Cavity, Percutaneous Approach (ICD-10-PCS; 2020-03-09)
PROC: 30233N1 Transfusion of Nonautologous Red Blood Cells into Peripheral Vein, Percutaneous Approach (ICD-10-PCS; 2020-03-09)
PROC: 0W9G3ZZ Drainage of Peritoneal Cavity, Percutaneous Approach (ICD-10-PCS; 2020-03-11)
PROC: 0W9G3ZZ Drainage of Peritoneal Cavity, Percutaneous Approach (ICD-10-PCS; 2020-03-17)
PROC: B5191ZZ Fluoroscopy of Inferior Vena Cava using Low Osmolar Contrast (ICD-10-PCS; 2020-03-20)
PROC: 06H03DZ Insertion of Intraluminal Device into Inferior Vena Cava, Percutaneous Approach (ICD-10-PCS; 2020-03-20)
PROC: 0W9G3ZZ Drainage of Peritoneal Cavity, Percutaneous Approach (ICD-10-PCS; 2020-03-21)
PROC: 0DH67UZ Insertion of Feeding Device into Stomach, Via Natural or Artificial Opening (ICD-10-PCS; 2020-03-21)
PROC: 3E0G76Z Introduction of Nutritional Substance into Upper GI, Via Natural or Artificial Opening (ICD-10-PCS; 2020-03-21)
DX: K57.32 Diverticulitis of large intestine without perforation or abscess without bleeding (principal); G92 Toxic encephalopathy; J96.21 Acute and chronic respiratory failure with hypoxia; J96.22 Acute and chronic respiratory failure with hypercapnia; E43 Unspecified severe protein-calorie malnutrition; I46.9 Cardiac arrest, cause unspecified; A41.9 Sepsis, unspecified organism; R65.21 Severe sepsis with septic shock; J69.0 Pneumonitis due to inhalation of food and vomit; J15.0 Pneumonia due to Klebsiella pneumoniae; I82.432 Acute embolism and thrombosis of left popliteal vein; J91.8 Pleural effusion in other conditions classified elsewhere; Z68.1 Body mass index [BMI] 19.9 or less, adult; L03.311 Cellulitis of abdominal wall; E87.4 Mixed disorder of acid-base balance; G93.1 Anoxic brain damage, not elsewhere classified; J95.01 Hemorrhage from tracheostomy stoma; E87.0 Hyperosmolality and hypernatremia; B37.0 Candidal stomatitis; E87.1 Hypo-osmolality and hyponatremia; F10.231 Alcohol dependence with withdrawal delirium; G62.81 Critical illness polyneuropathy; J98.11 Atelectasis; K52.1 Toxic gastroenteritis and colitis; K56.7 Ileus, unspecified; Z66 Do not resuscitate; Z51.5 Encounter for palliative care; Z20.828 Contact with and (suspected) exposure to other viral communicable diseases; E87.6 Hypokalemia; R33.9 Retention of urine, unspecified; J43.9 Emphysema, unspecified; K70.11 Alcoholic hepatitis with ascites; I10 Essential (primary) hypertension; E87.70 Fluid overload, unspecified; K42.9 Umbilical hernia without obstruction or gangrene; K72.90 Hepatic failure, unspecified without coma; D53.9 Nutritional anemia, unspecified; E53.8 Deficiency of other specified B group vitamins; K70.31 Alcoholic cirrhosis of liver with ascites; D72.823 Leukemoid reaction; T36.95XA Adverse effect of unspecified systemic antibiotic, initial encounter; K76.0 Fatty (change of) liver, not elsewhere classified; D50.9 Iron deficiency anemia, unspecified; Z90.49 Acquired absence of other specified parts of digestive tract; Z98.890 Other specified postprocedural states; Z79.899 Other long term (current) drug therapy; Z87.891 Personal history of nicotine dependence
CPT/HCPCS: 36410; 36573; 36600; 37191; 43235; 43246; 49083; 70450; 71045; 71046; 71275; 74018; 74019; 74176; 74177; 76604; 76705; 76937; 78582; 80048; 80053; 80061; 80074; 80076; 82140; 82272; 82330; 82607; 82728; 82746; 82747; 82805; 83010; 83036; 83540; 83550; 83605; 83615; 83735; 83883; 83921; 84100; 84132; 84157; 84165; 84443; 84478; 84484; 85025; 85027; 85045; 85610; 85730; 86140; 86334; 86850; 86900; 86901; 86920; 87040; 87070; 87077; 87186; 87205; 87324; 88108; 88305; 88307; 89050; 93005; 93306; 93880; 94002; 94003; 94640; 95816